=== PATIENT | female | born 1970 | race Caucasian/White ===

== ENCOUNTER → 2021-04-03 12:42 | Outpatient (CLI) | payer BC, SELFPAY ==
--- NOTE | 2021-04-03 12:47 | MR_ITS ---
PROCEDURE: MR LUMBAR SPINE WO CON CLINICAL INDICATION: SPINAL STENOSIS COMPARISON: No exams were available for comparison TECHNIQUE: Standard multiplanar multiecho sequences are performed without contrast. 3-D MIP and myelographic images are also rendered and reviewed FINDINGS: There is normal position and alignment. No acute compression fractures. Conus medullaris appears normal terminating at mid L1. Posterior elements appear intact. The study presumes 5 non rib-bearing lumbar vertebrae. Visualized kidneys and abdominal aorta are normal. IMPRESSION: L1-2 through L3-4: Within normal limits. L4-5: Mild diffuse posterior annular disc bulge without nerve root compression or spinal canal stenosis. Mild bilateral neural foraminal narrowing and mild bilateral facet spondylosis. L5-S1: Mild diffuse posterior annular disc bulge with minimal spinal canal stenosis and contact of the bilateral S1 nerve roots. Mild bilateral neural foraminal narrowing and mild bilateral facet spondylosis. Dictated by: Paresh Mcconnell MD 04/03/2021 15:07 Paresh Mcconnell MD in [place] 04/03/2021 15:07
== END ==
PROVIDERS: PCP Internal Medicine; Visit Provider Psychiatry & Neurology Clinical Neurophysiology
DX: M48.061 Spinal stenosis, lumbar region without neurogenic claudication (principal)
CPT/HCPCS: 72148; 76376

== ENCOUNTER → 2021-05-16 13:33 | Outpatient (CLI) | payer BC, SELFPAY ==
--- NOTE | 2021-05-16 13:36 | MR_ITS ---
PROCEDURE: MR CERVICAL SPINE WO CON CLINICAL INDICATION: SPINAL STENOSIS Neck pain. Pain down both arms. Tingling and numbness. 2 previous surgeries. COMPARISON: No exams were available for comparison TECHNIQUE: Standard multiplanar multiecho sequences are performed without contrast. 3-D MIP and myelographic images are also rendered and reviewed FINDINGS: Postsurgical changes are present. There are no previous exams available for comparison. Artifact present from the postsurgical change. There is normal alignment. The craniocervical junction has an unremarkable appearance. No abnormal cord signal intensity. C2-C3: Unremarkable. C3-C4: Minimal bulging disc and mild prominence of the posterior longitudinal ligament with canal stenosis of 9 mm without cord effacement C4-C5: Degenerative disc disease with bulging disc. Moderate to severe canal stenosis at 7 mm with mild impingement upon the cord and mild cord flattening. C5-C6: Postsurgical changes. Mild canal stenosis at 10 mm without impingement. There is fusion of C5-C6 C6-C7: Severe artifact from prior fusion. No herniated disc or canal stenosis or foraminal narrowing at this level. C7-T1: Prior fusion with artifact. No canal stenosis or extradural defect apparent No herniated disc or vertebral fracture apparent. IMPRESSION: 1. Postsurgical changes with prior fusion at C5-C6, C6-C7, and C7-T1. 2. C3-C4: Minimal bulging disc and mild prominence of the posterior longitudinal ligament with canal stenosis of 9 mm without cord effacement 3. C4-C5: Degenerative disc disease with bulging disc. Moderate to severe canal stenosis at 7 mm with mild impingement upon the cord and mild cord flattening. Dictated by: José Hernandez MD 05/17/2021 08:50 José Hernandez MD in [place] 05/17/2021 08:50
== END ==
PROVIDERS: PCP Internal Medicine; Visit Provider Psychiatry & Neurology Clinical Neurophysiology
DX: M48.02 Spinal stenosis, cervical region (principal)
CPT/HCPCS: 72141; 76376

== ENCOUNTER → 2021-05-20 14:11 | Outpatient (POV) | payer BC, SELFPAY ==
[2021-05-20 14:52] VITALS: BP 156/85; PULSE 98; RESP 18; O2SAT 97; BMI 45.6
--- NOTE | 2021-05-20 14:54 | HMH.PMCON ---
Assessment and Plan (1) Degenerative joint disease (DJD) of lumbar spine Status: Acute Category: Medical Code(s): M47.816 - Spondylosis without myelopathy or radiculopathy, lumbar region (2) Lumbar radiculopathy Status: Acute Category: Medical Code(s): M54.16 - Radiculopathy, lumbar region - Assessment and plan all Dx Assessment and Plan for all problems:: MRI of the lumbar spine reveals L1-L2 through L3-L4 within normal limits. L4-L5 mild diffuse posterior annular disc bulge without nerve root compression or spinal canal stenosis. L5-S1 mild diffuse posterior annular disc bulge with minimal spinal canal stenosis and contact of the bilateral S1 nerve roots. Mild bilateral neural foraminal narrowing and mild bilateral facet spondylosis per report. We did review her MRI report in detail today. I have recommended lumbar epidural injection at L5-S1 to help with discomfort. The procedure, risk, benefits were all discussed with the patient. She would like to proceed with the injection. She is welcome to contact the clinic prior to her injection date if she has any questions or concerns. Dr. Banerjee has reviewed this note and agrees with this plan of care. This note was dictated using voice recognition software and make contain errors or omissions. HPI - Data of Consult Patient: new to practice Consult date: 05/20/21 Requesting Physician: Astrid Alcantara APRN Primary Care Provider: Referral Provider, - Consult Narrative History of present illness: Ms. Nuñez is a 50 year old female who presents today as a new patient. Dr. Solis for low back pain. The patient states she has been dealing with low back pain for approximately 2 years. The pain has been gradually increasing. She is rating the pain in the low back today and 8 out of 10. She describes the pain as constant stabbing-like sensations. She does have radiating pain into her left buttock and heel down her left leg. She experiences numbness and a tingling sensation in her left leg. The pain is made worse with prolonged standing and walking. When walking she notices an increased weakness in her lower extremities. The pain is not improved with sitting, standing or laying flat she constantly has to change positions to help with the discomfort. She has tried and failed conservative therapy such as physical therapy, and oral medications. The patient has been diagnosed with fibromyalgia, she also has an extensive history of neck pain, she has had cervical fusions with Dr. Arshad in the past she is actually being referred to neurosurgery for her neck pain. She has been prescribed Soma by Dr. Solis in the past. She states that this medication did not help with her discomfort. Her Husam number is [phone] she has an active morphine equivalent of the run. CC: Astrid Alcantara APRN [facility] History I have reviewed the patient's past medical history: Yes Medical History: Denies:: Diabetes Mellitus Type 1, Diabetes Mellitus Type 2 *Have you ever received a pneumonia vaccine?: No *Have you received a flu vaccine this season?: Yes Laterality Cases: Left: Total Hip Replacement, Bilateral: Tonsillectomy - *Social History Smoking Status: Current every day smoker Tobacco Type: cigarettes # Packs/Day (cigarettes): 1 Alcohol Intake: never *Occupational Status:: other *Travel in the last 8 weeks: None Family Hx:: No significant family history Review of Systems - Review of Systems Review of Systems General: No recent weight changes, no fever, no sleep disturbances Respiratory: No cough, no shortness of air, no recurring pulmonary infections Cardiovascular/peripheral vascular: No chest pain, no palpitations, no edema, no shortness of breath Gastrointestinal: No new onset incontinence, normal bowel movements reported Genitourinary: No new onset incontinence Musculoskeletal: [Low back pain, left leg pain] Psychiatric: [Normal mood/affect] N
== END ==
PROVIDERS: Visit Provider Family Medicine
DX: M47.896 Other spondylosis, lumbar region (principal); M54.16 Radiculopathy, lumbar region
CPT/HCPCS: 99202; G0463

== ENCOUNTER 2021-05-25 11:15 | Emergency (ER) | payer BC, SELFPAY ==
[2021-05-25 11:16] VITALS: BP 136/80; PULSE 77; RESP 19; TEMP 37; O2SAT 99; BMI 45.6
--- NOTE | 2021-05-25 11:48 | XR_ITS ---
PROCEDURE INFORMATION: Exam: XR Left Foot Exam date and time: 05/25/2021 11:48 AM Age: 50 years old Clinical indication: Pain; Foot; Left; Additional info: Pain on top of foot TECHNIQUE: Imaging protocol: XR Left foot. Views: 3 or more views. COMPARISON: CR [id number] [id number] 02/05/2017 11:17 AM FINDINGS: Bones/joints: Calcaneal spurring. No acute fracture or dislocation. Soft tissues: Normal. IMPRESSION: No acute fracture or dislocation.
--- NOTE | 2021-05-25 12:26 | HMH.EDUTC ---
[facility] [place] Clinical Impression: Left foot pain Disposition: Home, Self-Care Condition on Discharge: Good Instructions: DI for Foot Pain Referrals: Arelis Harden DPM [Staff Physician] - Time of Disposition: 12:50 Medical Decision Making - Husam Inquiry Pt receiving controlled substance: No Vital Signs: 05/25/21 11:16 Temperature 98.6 F Temperature Source Oral Pulse Rate [Left Radial] 77 Respiratory Rate 19 Blood Pressure [Right Arm] 136/80 Blood Pressure Mean [Right Arm] 98 Blood Pressure Source [Right Arm] Automatic Cuff Blood Pressure Position [Right Arm] Sitting 02 Sat by Pulse Oximetry 99 Oxygen Delivery Method Room Air Orders (Tests/Meds): ORDERS Category Date Time Status XR foot LT min 3V Stat Exams 05/25/21 11:48 Taken - Radiology Data #1 Image(s): Foot/Toes Image Reviewed: Yes I reviewed the patient's radiology image Preliminary Findings: No Fracture Seen [facility] [place] - General Stated complaint: left foot pain Time Seen by Provider: 05/25/21 12:26 Mode of Arrival: Ambulatory Source of Information: Patient Limitations: No Limitations Description of Symptoms (Recalled from Triage Doc. by RN): c/o left foot pain/swollen after hearing a pop while walking last night HEENT Symptoms (Recalled from RN notes): No Resp Symptoms (Recalled from RN notes): No Skin Symptoms (Recalled from RN notes): No MS Symptoms (Recalled from RN notes): Yes Functional Status (Recalled from RN notes): wnl - History of Present Illness Provider Complaint: Patient was walking last night and felt 3 pops across the top of her left foot, followed by pain. States foot throbbed all night long and is swollen. It hurts to walk on her foot. No prior trauma to foot. No history of diabetes. She does smoke. Onset (ago): day(s) (1) Location: left, lower extremity Relieving factors: none Exacerbating factors: other (weight bearing) Treatments prior to arrival: none - Related Data Home Medications Medication Instructions Recorded Confirmed Lisinopril/Hydrochlorothiazide 1 tab PO DAILY 06/09/18 05/25/21 [Lisinopril-Hctz 10-12.5 mg Tab] ARIPiprazole [Aripiprazole] 10 mg PO DAILY 05/25/21 05/25/21 Atorvastatin Calcium [Lipitor 80mg 80 mg PO HS 05/25/21 05/25/21 Tablet*] Baclofen [Lioresal 10mg tablet] 10 mg PO TID 05/25/21 05/25/21 Budesonide/Glycopyr/Formoterol 2 puffs INHALATION DAILY 05/25/21 05/25/21 [Breztri Aerosphere Inhaler] Bumetanide 2 mg PO DAILY 05/25/21 05/25/21 Ergocalciferol (Vitamin D2) 1 tab PO WEEKLY 05/25/21 05/25/21 [Drisdol 50,000 units (1.25mg) capsule] Levothyroxine Sodium 88 mcg PO DAILY 05/25/21 05/25/21 [Levothyroxine] Pantoprazole Sodium 40 mg PO BID 05/25/21 05/25/21 Potassium Chloride [Klor-con 20 80 meq PO BID 05/25/21 05/25/21 mEq tablet] Promethazine HCl [Phenergan 25mg 25 mg PO Q6H PRN 05/25/21 05/25/21 tab] Ropinirole HCl 0.25 mg PO HS 05/25/21 05/25/21 Trazodone HCl 100 mg PO HS 05/25/21 05/25/21 Venlafaxine HCl [Effexor XR 150mg] 150 mg PO DAILY 05/25/21 05/25/21 Venlafaxine HCl [Effexor XR 75mg 75 mg PO DAILY 05/25/21 05/25/21 capsule] Zonisamide 100 mg PO TID 05/25/21 05/25/21 carvediloL [Coreg 6.25mg 6.25 mg PO BID 05/25/21 05/25/21 Tablet] hydrOXYzine pamoate [Hydroxyzine 50 mg PO TID 05/25/21 05/25/21 Pamoate] lamoTRIgine [Lamotrigine] 25 mg PO TID 05/25/21 05/25/21 metOLazone [Metolazone 5mg Tab] 5 mg PO DAILY 05/25/21 05/25/21 Allergies Allergy/AdvReac Type Severity Reaction Status Date / Time diphenhydramine Allergy Unknown Verified 06/09/18 14:10 [From BENADRYL] Tetanus Vaccines and Toxoid Allergy Unknown Verified 06/09/18 14:10 [TETANUS VACCINES & TOXOID] GENERIC: [id number] - Allergy Unknown Uncoded 10/06/17 15:31 DIPHENHYDR/MAG SHEBA/HYDROCORTIS - Worker's Comp Is this a Worker's Comp case?: No H History - Hepatitis A Screen Drug use history?: No High risk sexual
[2021-05-25 12:55] VITALS: BP 136/80; PULSE 77; RESP 19; TEMP 37; O2SAT 99
== END 2021-05-25 13:23 | disposition home or self-care (01) ==
PROVIDERS: Emergency Provider Physician Assistant; PCP Internal Medicine
DX: M79.672 Pain in left foot (principal); F17.210 Nicotine dependence, cigarettes, uncomplicated
CPT/HCPCS: 73630; 99202; G0463

== ENCOUNTER 2021-06-07 14:22 | Day surgery (SDC) | payer BC, SELFPAY ==
[2021-06-07 14:41] VITALS: BP 158/58; PULSE 85; RESP 18; TEMP 36.6; O2SAT 97; BMI 46.6
[2021-06-07 15:23] VITALS: BP 138/90; PULSE 81; RESP 18; O2SAT 96
[2021-06-07 15:24] VITALS: BP 138/90; PULSE 84; RESP 18; O2SAT 96
--- NOTE | 2021-06-07 15:25 | HMH.PMPROC ---
- Procedure Date: 06/07/21 Time: 15:26 Anesthesiologist:: Marck Banerjee MD Complications:: None Pre-procedure Diagnosis:: Degenerative disc disease of lumbar spine with lumbar radiculopathy symptoms Post-procedure Diagnosis:: Same Indications for Procedure:: This patient is a pleasant 51-year-old white female who we are treating for low back pain with lumbar radiculopathy symptoms. She has some increasing pain in her back rating down both legs. We will do a lumbar pleural steroid injection today to see if this helps with her pain symptoms. Procedure Details:: Informed consent was obtained and the risk and benefits of the procedure was explained to the patient. The patient was taken to the procedure room. The patient was placed prone on the procedure table. The patient was prepped and draped in sterile fashion. C-arm fluoroscopy was used to view the lumbar spine. Skin and subcutaneous tissues were anesthetized using lidocaine. I placed an 18-gauge epidural needle and advanced into the L4-L5 interspace using fluoroscopic guidance and [id number] to air. After confirmation of needle placement in the epidural space with dye I injected 2 mL of lidocaine 1.5% with Depo-Medrol 80 mg. Patient tolerated the procedure well with no complications. Plan and Disposition:: We will follow-up with her in 2 weeks. Will reevaluate her symptoms at that time.
[2021-06-07 15:36] VITALS: BP 142/81; PULSE 78; RESP 18; O2SAT 97
== END 2021-06-07 15:37 | disposition home or self-care (01) ==
LOC: SC.PAINP 14:22
PROVIDERS: PCP Internal Medicine; Visit Provider Anesthesiology
DX: M51.16 Intervertebral disc disorders with radiculopathy, lumbar region (principal); G43.909 Migraine, unspecified, not intractable, without status migrainosus; Z72.0 Tobacco use; Z87.440 Personal history of urinary (tract) infections; E78.5 Hyperlipidemia, unspecified; I10 Essential (primary) hypertension; K21.9 Gastro-esophageal reflux disease without esophagitis; L51.1 Stevens-Johnson syndrome; Z88.7 Allergy status to serum and vaccine; Z88.8 Allergy status to other drugs, medicaments and biological substances
CPT/HCPCS: 62323; J1040; Q9966

== ENCOUNTER → 2021-07-04 13:47 | Outpatient (POV) | payer BC, SELFPAY ==
[2021-07-04 13:52] VITALS: BP 142/85; PULSE 94; RESP 18; O2SAT 95; BMI 46.3
--- NOTE | 2021-07-04 14:39 | HMH.PAINSOAP ---
[facility] Pain Management SOAP Note Subjective:: Patient is a 51-year-old white female who presents today for follow-up after lumbar epidural steroid injection. She is being treated for degenerative disc disease lumbar spine with lumbar radiculopathy symptoms. She recently underwent a lumbar epidural steroid injection at L4-L5 area. Patient says that she got about a week of relief, however, she is now having severe coccygeal pain and severe itching at the injection site. She does rate her pain a 9 out of 10 today. She says that the pain is excruciating to the area and worsening with sitting. Patient says that the itching and pain at the injection site started initially after the injection. The coccygeal pain has progressively worsened. Review of Systems General: No recent weight changes, no fever, no sleep disturbances Respiratory: No cough, no shortness of air, no recurring pulmonary infections Cardiovascular/peripheral vascular: No chest pain, no palpitations, no edema, no shortness of breath Gastrointestinal: No new onset incontinence, normal bowel movements reported Genitourinary: No new onset incontinence Musculoskeletal: Low back pain, injection site pain Psychiatric: [Normal mood/affect] Neurological: [Denies weakness in extremities], [denies balance issues] Integumentary: Itching at injection site from epidural steroid injection Objective:: Physical exam General: Alert and oriented x3, no acute distress, pleasant and cooperative, [on room air] Lungs: Respirations even and unlabored, symmetrical chest expansion Eyes: PERRL Musculoskeletal: Palpation of coccygeal area somewhat guarded secondary to pain, strength in upper and lower extremities [5/5], normal gait noted Neurological: Speech clear, [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 Patient was offered gabapentin, but patient reports an allergy to the medication. She is tried Lyrica with no relief. Patient would like oral pain medication management. We will give her a low-dose of tramadol 50 mg 1 tablet p.o. twice daily for 2 weeks only we will see the patient back in a week to see if the rash is improving. Patient was given bupivacaine/corticosteroid to the area to see if this relieves some of the pain to the rash site. Risks and benefits of the medication have been explained in detail to the patient. The patient has been advised to consult with his/her primary care provider and pharmacist regarding drug-drug interaction of medications currently prescribed. Patient has been prescribed a controlled substance after being counseled on the medication, medication safety, and possible side effects. SHIVANI report has been obtained and reviewed prior to prescription and found to be appropriate. Opioid contract was reviewed and signed by the patient, and that they have agreed to all of the terms set forth by our compliance program. Patient has been instructed to contact the clinic with any concerns before the next appointment. Dr. Banerjee has reviewed this note and agrees with this plan of care. This note was dictated using voice recognition software and make contain errors or omissions. [facility] History I have reviewed the patient's past medical history: Yes Medical History: Reports:: Anxiety, Asthma, Depression, Gastroesophageal Reflux Disease(GERD), Hyperlipidemia, Hypertension, Migraine Denies:: Cancer, Diabetes Mellitus Type 1, Diabetes Mellitus Type 2, MRSA, Seizures *Have you ever received a pneumonia vaccine?: No *Have you received a flu vaccine this season?: No Other Medical History: Reports: Arthritis (osteo-), Fibromyalgia, Hypothyroidism, Sinus Problems, Other (degenerative bone disease of the spine ). Denies: Blood Transfusion Reaction Laterality C
== END ==
PROVIDERS: Visit Provider Clinical Nurse Specialist Family Health
DX: B02.9 Zoster without complications (principal); M51.36 Other intervertebral disc degeneration, lumbar region
CPT/HCPCS: 99212; G0463

== ENCOUNTER → 2021-07-11 10:29 | Outpatient (POV) | payer BC, SELFPAY ==
[2021-07-11 10:36] VITALS: BP 153/78; PULSE 69; RESP 16; O2SAT 97; BMI 46.6
--- NOTE | 2021-07-11 11:58 | HMH.PAINSOAP ---
[facility] Pain Management SOAP Note Subjective:: Patient is a 51-year-old white female who presents today for follow-up. She has been treated for recent shingles outbreak and degenerative disc disease lumbar spine with lumbar radiculopathy symptoms. At last visit, the patient was noted to have a vesicular rash noted to the injection site of an epidural steroid injection. She was complaining of itching to the area along with pain. Dr. Banerjee was notified. He did feel that the patient had shingles after reviewing the rash. She was started on valacyclovir along with tramadol. She has tried Lyrica and gabapentin in the past with no relief. Patient says that she has been getting relief with tramadol. She does rate her pain at a 7 out of 10 today. Review of Systems General: No recent weight changes, no fever, no sleep disturbances Respiratory: No cough, no shortness of air, no recurring pulmonary infections Cardiovascular/peripheral vascular: No chest pain, no palpitations, no edema, no shortness of breath Gastrointestinal: No new onset incontinence, normal bowel movements reported Genitourinary: No new onset incontinence Musculoskeletal: Low back pain with itching Psychiatric: [Normal mood/affect] Neurological: [Denies weakness in extremities], [denies balance issues] Objective:: Physical exam General: Alert and oriented x3, no acute distress, pleasant and cooperative, [on room air] Lungs: Respirations even and unlabored, symmetrical chest expansion Eyes: PERRL Musculoskeletal: Flexion and extension of lumbar [spine] somewhat guarded secondary to pain, strength in upper and lower extremities [5/5], [antalgic gait noted] Neurological: Speech clear, [forestry engineer 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 We will continue her tramadol 50 mg 1 tablet p.o. twice daily. We will see the patient back in 3 months for reevaluation of symptoms. Risks and benefits of the medication have been explained in detail to the patient. The patient has been advised to consult with his/her primary care provider and pharmacist regarding drug-drug interaction of medications currently prescribed. Patient has been prescribed a controlled substance after being counseled on the medication, medication safety, and possible side effects. SHIVANI report has been obtained and reviewed prior to prescription and found to be appropriate. Opioid contract was reviewed and signed by the patient, and that they have agreed to all of the terms set forth by our compliance program. Patient has been instructed to contact the clinic with any concerns before the next appointment. Dr. Banerjee has reviewed this note and agrees with this plan of care. This note was dictated using voice recognition software and make contain errors or omissions. [facility] History I have reviewed the patient's past medical history: Yes Medical History: Reports:: Anxiety, Asthma, Depression, Gastroesophageal Reflux Disease(GERD), Hyperlipidemia, Hypertension, Migraine Denies:: Cancer, Diabetes Mellitus Type 1, Diabetes Mellitus Type 2, MRSA, Seizures *Have you ever received a pneumonia vaccine?: No *Have you received a flu vaccine this season?: No Other Medical History: Reports: Arthritis (osteo-), Fibromyalgia, Hypothyroidism, Sinus Problems, Other (degenerative bone disease of the spine ). Denies: Blood Transfusion Reaction Laterality Cases: Right: Arthroscopy Shoulder, Bilateral: Carpal Tunnel Release, Tonsillectomy, Total Hip Replacement Other Surgeries: Yes: Cardiac Catheterization, Hysterectomy-Partial, Other (neck fusions x2) Amputation: No Fractures: No - *Social History Smoking Status: Current every day smoker Tobacco Type: cigarettes # Packs/Day (cigarettes): 1 Alcohol Intake: never *Occupational Status:: unemployed Housing: house *Travel in the last 8 weeks:
== END ==
PROVIDERS: PCP Internal Medicine; Visit Provider Clinical Nurse Specialist Family Health
DX: M51.16 Intervertebral disc disorders with radiculopathy, lumbar region (principal); B02.9 Zoster without complications
CPT/HCPCS: 99212; G0463

== ENCOUNTER 2021-08-10 13:56 | Emergency (ER) | payer BC, SELFPAY ==
[2021-08-10 14:50] VITALS: BP 153/59; PULSE 75; RESP 22; TEMP 37; O2SAT 96; BMI 46.6
--- NOTE | 2021-08-10 15:00 | HMH.EDUTC ---
[facility] Disposition Clinical Impression: Oral thrush Disposition: Home, Self-Care Condition on Discharge: Good Instructions: Nystatin, Thrush-Adult Additional Instructions: Drink plenty of fluids. Take tylenol or ibuprofen for pain. Take the medications as directed. Follow up with your regular doctor. GO TO THE ER FOR ANY WORSENING SYMPTOMS I sent in a prescription for some probiotic tablets. If your insurance will not pay for this, then ask the pharmacist to recommend one that is over the counter and get it. Being on antibiotics for a long time kills out the good bacteria in your GI tract. Eating yogurt a couple times per day would also be really good to help prevent this. Prescriptions: Magic Mouthwash [Magic Mouthwash;240mL [place]] 15 ml PO QIDP PRN #360 ml PRN Reason: Mouth Irritation Transmission Status: Received by [id number] Nystatin 5 ml PO QID 7 Days #240 ml Transmission Status: Received by [id number] Lactobacillus 3/Fos/Pantethine [Probiotic & Acidophilus Cap] 1 each PO BID 30 Days #60 cap Transmission Status: Received by [id number] Referrals: Ronaldo Kong [Primary Care Provider] - Time of Disposition: 16:10 Medical Decision Making - Medical Records Medical records reviewed: No: I reviewed the patient's medical records. - Husam Inquiry Pt receiving controlled substance: No Vital Signs: 08/10/21 14:50 08/10/21 16:25 Temperature 98.6 F 98.1 F Temperature Source Oral Pulse Rate 70 Pulse Rate [Radial] 75 Respiratory Rate 22 19 Blood Pressure 150/60 H Blood Pressure [Right Arm] 153/59 H Blood Pressure Mean [Right Arm] 90 02 Sat by Pulse Oximetry 96 [facility] HPI - General Stated complaint: poss thrush Time Seen by Provider: 08/10/21 15:00 Mode of Arrival: Ambulatory Source of Information: Patient Limitations: No Limitations Description of Symptoms (Recalled from Triage Doc. by RN): POSSIBLE THRUSH, STATES SHE HAS BEEN ON ABX FOR 4 WEEKS HEENT Symptoms (Recalled from RN notes): Yes Resp Symptoms (Recalled from RN notes): No Skin Symptoms (Recalled from RN notes): No MS Symptoms (Recalled from RN notes): No Functional Status (Recalled from RN notes): NA - History of Present Illness Provider Complaint: She states that she thinks that she has thrush in her mouth. She has been on antibiotics for several weeks for an infected cyst in her right axilla. She states that that is getting better, but her mouth is very irritated and has a white coating in places. - Related Data Home Medications Medication Instructions Recorded Confirmed Lisinopril/Hydrochlorothiazide 1 tab PO DAILY 06/09/18 06/07/21 [Lisinopril-Hctz 10-12.5 mg Tab] ARIPiprazole [Aripiprazole] 10 mg PO DAILY 05/25/21 06/07/21 Atorvastatin Calcium [Lipitor 80mg 80 mg PO HS 05/25/21 06/07/21 Tablet*] Baclofen [Lioresal 10mg tablet] 10 mg PO TID 05/25/21 06/07/21 Bumetanide 2 mg PO DAILY 05/25/21 06/07/21 Ergocalciferol (Vitamin D2) 1 tab PO WEEKLY 05/25/21 06/07/21 [Drisdol 50,000 units (1.25mg) capsule] Levothyroxine Sodium 88 mcg PO DAILY 05/25/21 06/07/21 [Levothyroxine] Pantoprazole Sodium 40 mg PO BID 05/25/21 06/07/21 Potassium Chloride [Klor-con 20 80 meq PO BID 05/25/21 06/07/21 mEq tablet] Promethazine HCl [Phenergan 25mg 25 mg PO Q6H PRN 05/25/21 06/07/21 tab] Ropinirole HCl 0.25 mg PO HS 05/25/21 06/07/21 Trazodone HCl 100 mg PO HS 05/25/21 06/07/21 Venlafaxine HCl [Effexor XR 150mg] 150 mg PO DAILY 05/25/21 06/07/21 Venlafaxine HCl [Effexor XR 75mg 75 mg PO DAILY 05/25/21 06/07/21 capsule] Zonisamide 100 mg PO TID 05/25/21 06/07/21 carvediloL [Coreg 6.25mg 12.5 mg PO BID 05/25/21 06/07/21 Tablet] hydrOXYzine pamoate [Hydroxyzine 50 mg PO TID 05/25/21 06/07/21 Pamoate] lamoTRIgine [Lamotrigine] 25 mg PO TID 05/25/21 06/07/21 metOLazone [Metolazone 5mg Tab] 5 mg PO DAILY 05/25/21 06/07/21 albuterol sulfate 90 mcg/a
[2021-08-10 16:25] VITALS: BP 150/60; PULSE 70; RESP 19; TEMP 36.7; O2SAT 97
== END 2021-08-10 16:27 | disposition home or self-care (01) ==
PROVIDERS: Emergency Provider Nurse Practitioner Family; PCP Internal Medicine
DX: B37.0 Candidal stomatitis (principal); F41.8 Other specified anxiety disorders; E78.5 Hyperlipidemia, unspecified; I10 Essential (primary) hypertension; K21.9 Gastro-esophageal reflux disease without esophagitis; M79.7 Fibromyalgia; F17.210 Nicotine dependence, cigarettes, uncomplicated; Z88.7 Allergy status to serum and vaccine; Z79.899 Other long term (current) drug therapy
CPT/HCPCS: 99202; G0463

== ENCOUNTER 2021-08-16 16:51 | Emergency (ER) | payer BC, SELFPAY ==
[2021-08-16 16:59] VITALS: BP 140/69; PULSE 77; RESP 16; O2SAT 98
[2021-08-16 17:00] VITALS: BP 140/69; PULSE 87; RESP 18; TEMP 36.5; O2SAT 97; BMI 46.2
--- NOTE | 2021-08-16 17:18 | PC.NURSE ---
pt reports unable to urinate at this time
[2021-08-16 17:20] LABS: Basophils # 0.1 K/mm3 (0-0.2); Basophils % 0.8 % (0.1-2.0); Eosinophils # 0.2 K/mm3 (0.0-0.4); Eosinophils % 1.3 % (0.1-12.0); Hematocrit 40.6 % (37.0-47.0); Lymphocytes % 22.5 % (10-50); Mean Corpuscular HGB Conc 32.1 g/dL (31.8-35.4); Mean Corpuscular Hemoglobin 32.1 pg (27.0-31.2); Mean Platelet Volume 8.9 fl (7.4-10.4); Monocytes # 0.7 K/mm3 (0.1-1.0); Neutrophils # 9.5 K/mm3 (1.8-7.8); Neutrophils % 70.4 % (37.0-80.0); Platelet Count 398 K/mm3 (142-424); Red Blood Count 4.06 M/mm3 (4.20-5.40); Red Cell Distribution Width 14.6 % (11.5-17.5); White Blood Count 13.4 K/mm3 (4.8-10.8)
[2021-08-16 17:21] LABS: Chloride 105 mmol/L (98-107); Potassium 4.2 mmoL/L (3.5-5.1); Sodium 138 mmol/L (136-145)
--- NOTE | 2021-08-16 17:23 | CT_ITS ---
PROCEDURE INFORMATION: Exam: CT Abdomen And Pelvis With Contrast Exam date and time: 08/16/21 05:23 PM Age: 51 years old Clinical indication: Abdominal pain; Localized; Left lower quadrant (llq) TECHNIQUE: Imaging protocol: Computed tomography of the abdomen and pelvis with contrast. Radiation optimization: All CT scans at this facility use at least one of these dose optimization techniques: automated exposure control; mA and/or kV adjustment per patient size (includes targeted exams where dose is matched to clinical indication); or iterative reconstruction. Contrast material: ISOVUE; Contrast volume: 75 ml; Contrast route: IV; COMPARISON: ABDPELW/O CT ABD PELVIS W/O CONTRAST 07/21/16 10:44 PM FINDINGS: Tubes, catheters and devices: None noted. Lungs: Lung bases appear clear. Heart: No significant coronary calcifications. No cardiomegaly. No significant pericardial effusion. Liver: Mild fatty liver. No mass. Gallbladder and bile ducts: Normal. No calcified stones. No ductal dilation. Pancreas: Normal. No ductal dilation. Spleen: Normal. No splenomegaly. Adrenal glands: Normal. No mass. Kidneys and ureters: Nonobstructive right lower pole caliceal calcification. No hydronephrosis. Stomach and bowel: Unremarkable. No obstruction. No mucosal thickening. Appendix: Appendectomy. Intraperitoneal space: Unremarkable. No free air. No significant fluid collection. Retroperitoneal space: No significant retroperitoneal inflammatory changes are noted. Vasculature: Unremarkable. No abdominal aortic aneurysm. Lymph nodes: Unremarkable. No enlarged lymph nodes. Urinary bladder: Unremarkable as visualized. Reproductive: Hysterectomy. 2.9 cm right ovarian cyst. 6.5 x 4.3 cm left ovarian cyst. Bones/joints: Bilateral total hip arthroplasties. No acute fracture. Soft tissues: Unremarkable. IMPRESSION: 1. 6.5 x 4.3 cm left ovarian cyst. 2. Appendectomy. 3. Hysterectomy. 4. Mild fatty liver.
[2021-08-16 17:24] LABS: Alanine Aminotransferase 25 U/L (12-78); Albumin/Globulin Ratio 1.3 (1.1-1.8); Alkaline Phosphatase 153 U/L (38-126); Anion Gap 13.2 mEq/L (5-15); Aspartate Amino Transferase 21 U/L (14-36); Bilirubin,Total 0.2 mg/dl (0.2-1.3); Blood Urea Nitrogen 9 mg/dl (7-17); Calcium 9.1 mg/dl (8.4-10.2); Carbon Dioxide 24 mmol/L (22.0-30.0); Creatinine Clearance Estimated 81 mL/min (50-200); Estimated Glomerular Filt Rate 76 ml/min (>60); GFR (African American) 92 ML/MIN (>60); Globulin 3.2 g/dL (1.3-3.2); Glucose 129 mg/dl (74-100); Lipase 76 U/L (23-300); Total Protein,Serum 7.2 g/dl (6.3-8.2)
--- NOTE | 2021-08-16 18:39 | HMH.EDGENADL ---
ED Disposition Clinical Impression: Ovarian cyst Qualifiers: Laterality: left Qualified Code(s): N83.202 - Unspecified ovarian cyst, left side Disposition: Home, Self-Care Condition on Discharge: Good Instructions: DI for Acute Abdominal Pain Additional Instructions: Ibuprofen/Tylenol as needed for aches and pains. Warm compress. Follow-up with PCP on Thursday. Return emerge department fever, worsening pain. Referrals: Ronaldo Kong [Primary Care Provider] - 3 days Time of Disposition: 18:43 - Critical Care Critical Care Time: No Attestation: On 08/16/21, the high probability of a clinically significant, sudden or life threatening deterioration of the following system(s) required my full and direct attention, intervention and personal management. The time I documented below is in addition to time spent performing reported procedures but includes the following listed in this critical care notation. Medical Decision Making - Medical Records Medical records reviewed: Yes: I reviewed the patient's medical records. - Husam Inquiry Pt receiving controlled substance: No Vital Signs: 08/16/21 16:59 08/16/21 17:00 Temperature 97.7 F Temperature Source Oral Pulse Rate 77 Pulse Rate [Right Radial] 87 Respiratory Rate 16 18 Blood Pressure 140/69 Blood Pressure [Right Arm] 140/69 Blood Pressure Mean 88 Blood Pressure Mean [Right Arm] 92 Blood Pressure Source [Right Arm] Automatic Cuff Blood Pressure Position [Right Arm] Left Lateral 02 Sat by Pulse Oximetry 98 97 Oxygen Delivery Method Room Air - Lab Data Lab results reviewed: Yes: I reviewed the patient's lab results. Lab Results 08/16/21 11:10: WBC 13.4 H, RBC 4.06 L, Hgb 13.0, Hct 40.6, MCV 100.0 H, MCH 32.1 H, MCHC 32.1, RDW 14.6, Plt Count 398, MPV 8.9, Neut % (Auto) 70.4, Lymph % (Auto) 22.5, [place] % (Auto) 5.0, Eos % (Auto) 1.3, Baso % (Auto) 0.8, Neut # (Auto) 9.5 H, Lymph # (Auto) 3.0, [place] # (Auto) 0.7, Eos # (Auto) 0.2, Baso # (Auto) 0.1 08/16/21 11:10: Sodium 138, Potassium 4.2, Chloride 105, Carbon Dioxide 24, Anion Gap 13.2, BUN 9, Creatinine 0.80, Estimated Creat Clear 81, Estimated GFR 76, Est GFR ( Amer) 92, Glucose 129 H, Calcium 9.1, Total Bilirubin 0.2, AST 21, ALT 25, Alkaline Phosphatase 153 H, Total Protein 7.2, Albumin 4.0, Globulin 3.2, Albumin/Globulin Ratio 1.3, Lipase 76 Result diagrams: 08/16/21 11:10 08/16/21 11:10 Orders (Tests/Meds): ED MEDICATIONS Generic Name Dose Route Start Last Admin Trade Name Freq PRN Reason Stop Dose Admin Lactated Ringer's 1,000 mls @ 999 mls/hr 08/16/21 17:30 08/16/21 17:34 Lactated Ringer's 1000 Ml Bag IV 08/16/21 18:30 999 mls/hr .Q1H1M SILVER Administration Discontinued Medications Generic Name Dose Route Start Last Admin Trade Name Freq PRN Reason Stop Dose Admin Iopamidol 75 ml 08/16/21 17:51 08/16/21 17:52 Iopamidol-370 (76%);100ml Bottle IV 08/16/21 17:52 75 ml ONCE ONE Administration Ketorolac Tromethamine 15 mg 08/16/21 17:23 08/16/21 17:34 Ketorolac 30mg/Ml Vial IV 08/16/21 17:24 15 mg ONCE ONE Administration Sodium Chloride 10 ml 08/16/21 17:51 08/16/21 17:52 Sodium Chloride 0.9% 10ml Syr (Rad Only) IV 08/16/21 17:52 10 ml ONCE ONE Administration ORDERS Category Date Time Status Urinalysis and Microscopic Stat Lab 08/16/21 17:03 Ordered - CT Data CT Scan: Abdomen, Pelvis Time Received: 18:[address] Reviewed: Yes: I have viewed the radiologist's interpretation Preliminary Findings: Abnormal Findings Narrative: Left ovarian cyst Medical Decision Narrative: 51yo F evaluated for left lower quad abdominal pain. Patient is acutely uncomfortable but in no real distress. Physical exam is unremarkable. Abdominal laboratory studies are collected and benign. Patient sent for CT of the abdomen pelvis with IV contrast after receiving Toradol. This seems to have improved her pain. CT of the abdomen pelvi
[2021-08-16 18:52] VITALS: BP 130/61; PULSE 87; RESP 18; TEMP 36.5; O2SAT 97
== END 2021-08-16 18:52 | disposition home or self-care (01) ==
PROVIDERS: Emergency Provider Family Medicine; PCP Internal Medicine
DX: N83.202 Unspecified ovarian cyst, left side (principal); I10 Essential (primary) hypertension; E78.5 Hyperlipidemia, unspecified; J45.909 Unspecified asthma, uncomplicated; E03.9 Hypothyroidism, unspecified; F41.8 Other specified anxiety disorders; M79.7 Fibromyalgia; F17.210 Nicotine dependence, cigarettes, uncomplicated; Z90.710 Acquired absence of both cervix and uterus; Z88.7 Allergy status to serum and vaccine
CPT/HCPCS: 74177; 80053; 83690; 85025; 96365; 96375; 99283; Q9967

== ENCOUNTER → 2021-09-18 13:10 | Outpatient (CLI) | payer BC, SELFPAY | PROVIDERS: Visit Provider Nurse Practitioner Family | DX: Z01.812 Encounter for preprocedural laboratory examination (principal); Z20.822 Contact with and (suspected) exposure to COVID-19 | CPT/HCPCS: C9803; U0003; U0005 ==

== ENCOUNTER → 2022-01-06 10:32 | Outpatient (POV) | payer BC, SELFPAY ==
[2022-01-06 11:38] VITALS: BP 135/90; PULSE 80; RESP 20; TEMP 36.7; O2SAT 99; BMI 45.2
--- NOTE | 2022-01-06 15:50 | HMH.PAINSOAP ---
[facility] Pain Management SOAP Note Subjective:: Patient is a pleasant 51-year-old female who presents today for follow-up. Patient is currently being treated for degenerative disc disease of the cervical and lumbar spine with cervical and lumbar radiculopathy symptoms. Patient states that she recently saw a neurosurgeon who did a cervical fusion of her C4 and C5. Today, patient states that she has been having worsening low back pain. We have tried a lumbar epidural steroid injection in the past. Patient states that she had a shingles outbreak after this injection. We did treat the patient with valacyclovir to manage her shingles. This has since resolved. But patient is very hesitant to try any more injective therapy after this. Patient denies any recent falls or traumas. She denies any loss of bowel bladder functions. She rates her pain today as 4 out of 10. [facility] #[id number] with an active morphine equivalent of 30. For pain management, she was recently prescribed [place] and oxycodone for postop pain. General: No recent weight changes, no fever, no sleep disturbances Respiratory: No cough, no shortness of air, no recurring pulmonary infections Cardiovascular/peripheral vascular: No chest pain, no palpitations, no edema, no shortness of breath Gastrointestinal: No new onset incontinence, normal bowel movements reported Genitourinary: No new onset incontinence Musculoskeletal: Low back pain Psychiatric: [Normal mood/affect] Neurological: [Denies weakness in extremities], [denies balance issues] Objective:: General: Alert and oriented x3, no acute distress, pleasant and cooperative, [on room air] Lungs: Respirations even and unlabored, symmetrical chest expansion Eyes: PERRL Musculoskeletal: Flexion and extension of lumbar [spine] somewhat guarded secondary to pain, [antalgic gait noted] Neurological: Speech clear, no gross sensory deficit Assessment:: Degenerative disc disease of the lumbar spine with lumbar radiculopathy symptoms, history of shingles, post-op cervical spinal fusion Plan:: Patient presents today with worsening low back pain. She has been taking her postop pain medications but she is out of these medications right now. Since she had a shingles outbreak after her last epidural steroid injection, patient is hesitant to try any injective therapy at this time. I will refer the patient for physical therapy for evaluation and treatment of chronic low back pain. I will start the patient on diclofenac 75 mg twice a day. I will also start the patient on a compounding cream. Follow-up in 1 month. Patient has been instructed to contact the clinic with any concerns before the next appointment. Dr. Banerjee has reviewed this note and agrees with this plan of care. This note was dictated using voice recognition software and make contain errors or omissions. [facility] History Medical History: Reports:: Anxiety, Asthma, Depression, Gastroesophageal Reflux Disease(GERD), Hyperlipidemia, Hypertension, Migraine Denies:: Cancer, Diabetes Mellitus Type 1, Diabetes Mellitus Type 2, MRSA, Seizures *Have you ever received a pneumonia vaccine?: No *Have you received a flu vaccine this season?: No Other Medical History: Reports: Arthritis (osteo-), Fibromyalgia, Hypothyroidism, Sinus Problems, Other (degenerative bone disease of the spine ). Denies: Blood Transfusion Reaction Laterality Cases: Right: Arthroscopy Shoulder, Bilateral: Carpal Tunnel Release, Tonsillectomy, Total Hip Replacement Other Surgeries: Yes: Cardiac Catheterization, Hysterectomy-Partial, Other (neck fusions x2) Amputation: No Fractures: No - *Social History Smoking Status: Current every day smoker Tobacco Type: cigarettes # Packs/Day (cigarettes): 1 Alcohol Intake: never *Occupational Status:: employed Housing: house *Travel in the last 8 weeks: None - Psychiatric History Pschychiatric History:: Reports:: Anxiety, Depression Family Hx:: Diabetes, Hype
== END ==
PROVIDERS: Visit Provider Student in an Organized Health Care Education/Training Program
DX: M51.16 Intervertebral disc disorders with radiculopathy, lumbar region (principal); M43.22 Fusion of spine, cervical region; Z86.19 Personal history of other infectious and parasitic diseases
CPT/HCPCS: 99212; G0463

== ENCOUNTER 2022-01-14 14:30 | Outpatient (RCR) | payer BC, SELFPAY ==
--- NOTE | 2022-01-09 09:02 | HMH.PTOPEV ---
PT Outpatient Evaluation Rehab PT Outpatient Evaluation Start: 01/09/22 08:06 Freq: Status: Active Protocol: Document 01/09/22 08:46 [place] (Rec: 01/09/22 09:02 PHORDEYSI [id number]) Electronically Signed By Matty Gomez, PT 01/09/22 08:46 Outpatient Therapy Subjective History Subjective History Pt is 51 yowf who presents with c/o low back pain x ~ 6 yrs, gradually worsening. She c/o pain worse with prolonged standing or sitting and reports she changes position frequently to help reduce the pain. She had MRI performed ~ 1 yr ago which shows mild disc bulge at L4/5 and L5/S1. She had steroid injection recently which she reports did not help at all. She has significant PMH of anxiety, depression, asthma, HL, HTN, migraines, seizure, fibromyalgia, L TKA, B DEVI, partial hysterectomy, cervical fusion x 2, cardiac cath, CTR B. Chief Complaint Pain,Stiff Symptom Type Ache,Burning Symptoms Relieved By Rest/Positioning Symptoms Aggravated By Supine,Sitting,Standing, Bending/Stooping,Physical Activity,Walking,Lifting Prior Functional Limitations Lifting,Housework,Standing, Sitting,Recreation Activity, Walking,Bending/Stooping Current Functional Limitations Lifting,Housework,Standing, Sitting,Recreation Activity, Walking,Bending/Stooping Symptom Description Constant but Variable Level of pain today (0-10) 8 Pain scale - at its worst (0-10) 10 Lumbopelvic Eval Palapation tenderness bilateral lumbar spinal tenderness Yes paraspinal tenderness Yes buttock tenderness Yes Lumbar/Sacral Palpation Findings Tenderness Lumbar/Sacral Palpation Overall Comment worse on L side Accessory Movement L-spine Vertebrae Accessory Movements Central P/A [place] that Elicit Symptoms L2 bilateral L3 bilateral L4 bilateral L5 bilateral S1 bilateral Range of Motion Lumbar Spine Active Flexion Range of 0-65 Motion (degrees)
== END 2022-01-14 14:35 | disposition home or self-care (01) ==
LOC: PT 14:30
PROVIDERS: PCP Internal Medicine; Visit Provider Student in an Organized Health Care Education/Training Program
DX: M54.50 Low back pain, unspecified (principal)
CPT/HCPCS: 97010; 97014; 97110; 97140; 97163; G0283

== ENCOUNTER → 2022-02-06 11:24 | Outpatient (POV) | payer BC, SELFPAY ==
[2022-02-06 11:43] VITALS: BP 152/68; PULSE 91; RESP 18; TEMP 36.7; O2SAT 97; BMI 43.8
--- NOTE | 2022-02-06 13:36 | HMH.PAINSOAP ---
[facility] Pain Management SOAP Note Subjective:: Patient is a pleasant 51-year-old female who is here today for follow-up. Patient is now being treated for degenerative disc disease of the cervical and lumbar spine with cervical and lumbar radiculopathy symptoms. Patient has a history of cervical fusion of C4-C5. We have been managing this patient with injective therapy. However, after her lumbar epidural steroid injection, patient states that she had a shingles outbreak. This has resolved since then. Because of this experience, patient is hesitant to try any more injective therapy. She states that she is following up with a neurologist in regards to her low back pain since she has been having radicular pains to bilateral legs. This is also causing her to have some numbness and paresthesia. She was also referred to a neurosurgeon since she may need a back surgery. When I last saw this patient, she was complaining of worsening low back pain. I started her on diclofenac 75 mg twice a day. This medication has been discontinued by her dramatic reader. She is taking baclofen for pain. Denies any recent falls or traumas. Rates pain today as 8 out of 10. [facility] #[id number] with an active morphine equivalent of 0. Review of Systems: General: No recent weight changes, no fever, no sleep disturbances Respiratory: No cough, no shortness of air, no recurring pulmonary infections Cardiovascular/peripheral vascular: No chest pain, no palpitations, no edema, no shortness of breath Gastrointestinal: No new onset incontinence, normal bowel movements reported Genitourinary: No new onset incontinence Musculoskeletal: Neck pain, low back pain Psychiatric: [Normal mood/affect] Neurological: [Denies weakness in extremities], [denies balance issues] Objective:: Physical Exam: General: Alert and oriented x3, no acute distress, pleasant and cooperative, [on room air] Lungs: Respirations even and unlabored, symmetrical chest expansion Eyes: PERRL Musculoskeletal: Flexion and extension of cervical and lumbar [spine] somewhat guarded secondary to pain, [antalgic gait noted] Neurological: Speech clear, no gross sensory deficit Assessment:: Degenerative disc disease of the cervical and lumbar spine with cervical lumbar radiculopathy symptoms, history of shingles, status post cervical spinal fusion Plan:: Patient is going to follow-up with a neurosurgeon in regards to her low back pain. She will proceed with back surgery if needed. We will reorder her compounding cream because she is allergic to gabapentin. We will follow-up with this patient in 6 months for evaluation of chronic pain syndrome. Patient has been instructed to contact the clinic with any concerns before the next appointment. Dr. Banerjee has reviewed this note and agrees with this plan of care. This note was dictated using voice recognition software and make contain errors or omissions. [facility] History Medical History: Reports:: Anxiety, Asthma, Depression, Gastroesophageal Reflux Disease(GERD), Hyperlipidemia, Hypertension, Migraine Denies:: Cancer, Diabetes Mellitus Type 1, Diabetes Mellitus Type 2, MRSA, Seizures *Have you ever received a pneumonia vaccine?: No *Have you received a flu vaccine this season?: No Other Medical History: Reports: Arthritis (osteo-), Fibromyalgia, Hypothyroidism, Sinus Problems, Other (degenerative bone disease of the spine ). Denies: Blood Transfusion Reaction Laterality Cases: Right: Arthroscopy Shoulder, Bilateral: Carpal Tunnel Release, Tonsillectomy, Total Hip Replacement Other Surgeries: Yes: Cardiac Catheterization, Hysterectomy-Partial, Other (neck fusions x2) Amputation: No Fractures: No - *Social History Smoking Status: Current every day smoker Tobacco Type: cigarettes # Packs/Day (cigarettes): 1 Alcohol Intake: never *Occupational Status:: unemployed Housing: house *Travel in the last 8 weeks: None - Psychiatric History Pschychiatric History:: Report
== END ==
PROVIDERS: Visit Provider Student in an Organized Health Care Education/Training Program
DX: M50.10 Cervical disc disorder with radiculopathy, unspecified cervical region (principal); Z98.1 Arthrodesis status; Z86.19 Personal history of other infectious and parasitic diseases
CPT/HCPCS: 99212; G0463

== ENCOUNTER → 2022-02-13 14:21 | Outpatient (CLI) | payer BC, SELFPAY ==
--- NOTE | 2022-02-13 14:24 | MR_ITS ---
FINAL REPORT CLINICAL HISTORY: SPINAL STENOSIS, LUMBAR left sided lbp numbness left leg and foot x 4 months no injury /trauma COMPARISON: April 03, 2021 FINDINGS: Multiplanar MR imaging of the lumbar spine was performed without contrast. On the sagittal T2-weighted images, there is mild decreased signal in the L3-L4 disc. The vertebrae are of normal height. The vertebral alignment is normal. L1-2: There is no significant canal stenosis or neural foraminal narrowing. L2-3: There is no significant canal stenosis or neural foraminal narrowing. L3-4: There is no significant canal stenosis or neural foraminal narrowing. L4-5: There is a mild disc bulge. There is no significant canal stenosis or neural foraminal narrowing. L5-S1: There is no significant canal stenosis or neural foraminal narrowing. IMPRESSION: Mild disc bulge at L4-L5 without significant central canal stenosis or neural foraminal narrowing. Reviewed, Interpreted and Dictated by Paulie Branham MD Transcribed by Pernell Dueñas Authenticated by Paulie Branham MD on 02/13/2022 04:50:[address] [facility]
== END ==
PROVIDERS: PCP Internal Medicine; Visit Provider Psychiatry & Neurology Clinical Neurophysiology
DX: M48.061 Spinal stenosis, lumbar region without neurogenic claudication (principal)
CPT/HCPCS: 72148; 76376

== ENCOUNTER → 2022-04-28 13:04 | Outpatient (POV) | payer BC, SELFPAY ==
[2022-04-28 14:06] VITALS: BP 119/70; PULSE 93; RESP 20; TEMP 36.6; O2SAT 97; BMI 44.3
--- NOTE | 2022-04-28 14:12 | HMH.PAINSOAP ---
[facility] Pain Management SOAP Note Subjective:: Patient is a pleasant 51-year-old female who is here today for follow-up. Patient is now being treated for degenerative disc disease of cervical and lumbar spine with cervical and lumbar radiculopathy symptoms. Patient states her pain today is 6 out of 10. She states it is in her low back pain. She describes the pain as a constant, burning, throbbing, ache that is worse with activity. She states the pain does radiate down to her feet. Patient has been managed with injective therapy in the past. she had a previous lumbar epidural steroid injection that shortly after she had a shingles outbreak. It has resolved however patient is hesitant to try any more epidural injections. She does have a history of a cervical fusion at C4-C5. She has been referred to a neurosurgeon. 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 She does use a compounding cream with minimal relief. She is asking for refill at today's visit. She also takes baclofen for pain by Dr. Solis. She denies any recent falls or trauma. Husam is [id number]. It has been reviewed and is appropriate. Review of Systems: General: No recent weight changes, no fever, no sleep disturbances Respiratory: No cough, no shortness of air, no recurring pulmonary infections Cardiovascular/peripheral vascular: No chest pain, no palpitations, no edema, no shortness of breath Gastrointestinal: No new onset incontinence, normal bowel movements reported Genitourinary: No new onset incontinence Musculoskeletal: Low back pain Psychiatric: [Normal mood/affect] Neurological: [Denies weakness in extremities], [denies balance issues] Objective:: Physical Exam: General: Alert and oriented x3, no acute distress, pleasant and cooperative Lungs: Respirations even and unlabored, symmetrical chest expansion Eyes: PERRL Musculoskeletal: Flexion and extension of lumbar [spine] somewhat guarded secondary to pain, [antalgic gait noted] Neurological: Speech clear, no gross sensory deficit Assessment:: Degenerative disc disease of cervical and lumbar spine with cervical and lumbar radiculopathy symptoms. Plan:: Patient had point tenderness in today's visit. She describes the pain radiating into her feet. I have discussed with her about another lumbar epidural steroid injection however she declines this at this time. She was positive for axial loading and she states she has a history of arthritis. I have discussed with the patient regarding about trying an medial branch block. Risk and benefits have been discussed. She would like to proceed with this injection. Patient is not currently taking any blood thinners. We will schedule her for an medial branch block L4-L5, L5-S1. Patient has been instructed to contact the clinic with any concerns before the next appointment. Dr. Banerjee has reviewed this note and agrees with this plan of care. This note was dictated using voice recognition software and make contain errors or omissions. [facility] History I have reviewed the patient's past medical history: Yes Medical History: Reports:: Anxiety, Asthma, Depression, Gastroesophageal Reflux Disease(GERD), Hyperlipidemia, Hypertension, Migraine Denies:: Cancer, Diabetes Mellitus Type 1, Diabetes Mellitus Type 2, MRSA, Seizures *Have you ever received a pneumonia vaccine?: No *Have you received a flu vaccine this season?: No Other Medical History: Reports: Arthritis (osteo-), Fibromyalgia, Hypothyroidism, Sinus Problems, Other (degenerative bone disease of the spine ). Denies: Blood Transfusion Reaction Laterality Cases: Right: Arthroscopy Shoulder, Bilateral: Carpal Tunnel Release, Tonsillectomy, Total Hip Replacement Other Surgeries: Yes: Cardiac Catheterization, Hysterectomy-Partial, Other (neck fusions x2) Amputation: No Fractures: No - *Social History Smoking Status: Current every day smoker Tobacco Type: cigarettes
== END ==
PROVIDERS: Visit Provider Student in an Organized Health Care Education/Training Program
DX: M51.16 Intervertebral disc disorders with radiculopathy, lumbar region (principal); M50.121 Cervical disc disorder at C4-C5 level with radiculopathy; M19.90 Unspecified osteoarthritis, unspecified site; Z72.0 Tobacco use
CPT/HCPCS: 99212; G0463

== ENCOUNTER 2022-05-09 11:38 | Day surgery (SDC) | payer BC, SELFPAY ==
[2022-05-09 11:47] VITALS: BP 127/83; PULSE 98; RESP 18; TEMP 36.6; O2SAT 95; BMI 44.3
[2022-05-09 11:54] VITALS: BP 132/79; PULSE 91; RESP 20
--- NOTE | 2022-05-09 12:01 | P.PCN_ITS ---
- Procedure Date: 05/09/22 Time: 12:01 Anesthesiologist:: Kalyan Childress CRNA Complications:: None Pre-procedure Diagnosis:: Degenerative disc disease lumbar spine multilevels. Lumbar spondylosis. Multilevel lumbar facet arthropathy. Post-procedure Diagnosis:: Same Indications for Procedure:: This patient is a very pleasant 51-year-old female that comes to our clinic today for lumbar medial branch block L4-5, L5-S1 bilaterally. Patient states her low back pain is constant, dull, aching. She rates the pain 8/10. Patient reports pain intensifies in flexion and extension. Procedure Details:: Informed consent was obtained and the risk and benefits of the procedure was explained to the patient. Patient was taken to the procedure room where noninvasive monitors were placed, including noninvasive blood pressure cuff as well as pulse oximeter. The area over the lumbar spine was cleansed using chlorhexidine as a cleansing solution. I anesthetized the skin and subcutaneous tissues with 1% Lidocaine. I placed 22-gauge spinal needles into the facet joint/ medial branches of L4-L5, and L5-S1] bilaterally. Needle placement was confirmed with fluoroscopy. After confirmation of needle placement, each site was injected with 1 mL of 1% lidocaine and 0.25 % Marcaine and 10 mg of Depo- Medrol. A total of 80 mg of depo medrol was used for bilateral medial branch blocks of L4-L5, and L5-S1] bilaterally. Patient tolerated the procedure without difficulty. There were no complications. Plan and Disposition:: Patient was discharged without incident.
[2022-05-09 12:02] VITALS: BP 121/65; PULSE 90; RESP 20; O2SAT 97
== END 2022-05-09 12:03 | disposition home or self-care (01) ==
LOC: SC.PAINP 11:40
PROVIDERS: PCP Internal Medicine; Visit Provider Nurse Anesthetist, Certified Registered
DX: M51.36 Other intervertebral disc degeneration, lumbar region (principal); M47.816 Spondylosis without myelopathy or radiculopathy, lumbar region; M19.90 Unspecified osteoarthritis, unspecified site; M79.7 Fibromyalgia; Z72.0 Tobacco use
CPT/HCPCS: 64493; 64494; J1040

== ENCOUNTER 2022-05-12 14:50 | Emergency (ER) | payer BC, SELFPAY ==
[2022-05-12] VITALS (8 sets, daily range): BP systolic 142–161; BP diastolic 84–93; PULSE 80–103; RESP 11–19; TEMP 37.1; O2SAT 95–99; BMI 28.6
--- NOTE | 2022-05-12 14:46 | ECG_ITS ---
APPROVED REPORT Exam: Resting ECG HR:105 bpm ECG Measurements Heart Rate 105 AXES OH 144 P 55 QRSd 89 QRS 11 QT 339 T 63 QTc 400 Conclusion SINUS TACHYCARDIA NONSPECIFIC T-WAVE ABNORMALITY ABNORMAL RHYTHM ECG UNCONFIRMED REPORT Electronically signed by : Mack Pennington MD 05/13/2022 14:15:18
--- NOTE | 2022-05-12 14:55 | XR_ITS ---
FINAL REPORT CLINICAL HISTORY: chest pain FINDINGS: PA and lateral views of the chest were obtained. There is no prior exam for comparison. The cardiac and mediastinal silhouettes are within normal limits. The lungs are clear. There is no pleural effusion or pneumothorax. No acute osseous abnormality is identified. IMPRESSION: No radiographic evidence of acute cardiac or pulmonary disease. Reviewed, Interpreted and Dictated by Dee Jones MD Transcribed by Pernell Dueñas Authenticated and [facility]
[2022-05-12 15:20] LABS: Basophils # 0.1 K/mm3 (0-0.2); Basophils % 0.6 % (0.1-2.0); Chloride 104 mmol/L (98-107); Eosinophils # 0.3 K/mm3 (0.0-0.4); Eosinophils % 1.6 % (0.1-12.0); Hematocrit 38.1 % (37.0-47.0); Hemoglobin 13.3 g/dL (12.2-16.2); Lymphocytes # 2.4 K/mm3 (0.7-4.5); Lymphocytes % 15.4 % (10-50); Mean Corpuscular HGB Conc 34.8 g/dL (31.8-35.4); Mean Corpuscular Hemoglobin 31.2 pg (27.0-31.2); Mean Corpuscular Volume 89.8 fl (81-99); Mean Platelet Volume 7.4 fl (7.4-10.4); Monocytes # 0.6 K/mm3 (0.1-1.0); Monocytes % 4.1 % (1.7-9.3); Neutrophils % 78.2 % (37.0-80.0); Platelet Count 335 K/mm3 (142-424); Potassium 3.8 mmoL/L (3.5-5.1); Red Blood Count 4.25 M/mm3 (4.20-5.40); Red Cell Distribution Width 13.7 % (11.5-17.5); Sodium 139 mmol/L (136-145); White Blood Count 15.3 K/mm3 (4.8-10.8)
[2022-05-12 15:22] LABS: MANUAL DIFFERENTIAL MANUAL DIFFERENTIAL (MANUAL DIFF)
[2022-05-12 15:23] LABS: Anion Gap 12.8 mEq/L (5-15); Blood Urea Nitrogen 18 mg/dl (7-17); Calcium 9.7 mg/dl (8.4-10.2); Carbon Dioxide 26 mmol/L (22.0-30.0); Creatinine Clearance Estimated 109 mL/min (50-200); Estimated Glomerular Filt Rate 76 ml/min (>60); GFR (African American) 92 ML/MIN (>60); Glucose 173 mg/dl (74-100)
[2022-05-12 15:36] LABS: Troponin I < 0.01 ng/ml (0.00-0.034)
[2022-05-12 15:40] LABS: Lymphocytes % 27 % (10-50); Monocytes % 3 % (2-9); Neutrophils % 70 % (42-76); Nucleated Red Blood Cells 1; Total Cells Counted 100
[2022-05-12 15:41] LABS: Platelet Estimate Normal
[2022-05-12 15:42] LABS: RBC Morphology Normal
--- NOTE | 2022-05-12 15:59 | HMH.EDCP ---
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 Prescriptions: methocarbamoL [Methocarbamol] 500 mg PO TID PRN #30 tab PRN Reason: Muscle Pain Transmission Status: Received by [facility] Referrals: Provider,Referral, [Primary Care Provider] - - Critical Care Critical Care Time: No Attestation: On 05/12/22, the high probability of a clinically significant, sudden or life threatening deterioration of the following system(s) required my full and direct attention, intervention and personal management. The time I documented below is in addition to time spent performing reported procedures but includes the following listed in this critical care notation. Medical Decision Making - Husam Inquiry Pt receiving controlled substance: No Husam was queried for this patient: No Vital Signs: 05/12/22 14:51 05/12/22 16:00 05/12/22 16:30 Temperature 98.8 F Temperature Source Oral Pulse Rate 89 88 Pulse Rate [Left Radial] 103 H Respiratory Rate 19 15 13 Blood Pressure 157/84 H 145/93 H Blood Pressure [Right Arm] 157/93 H Blood Pressure Mean Blood Pressure Mean [Right Arm] 114 Blood Pressure Source [Right Arm] Automatic Cuff Blood Pressure Position [Right Arm] Sitting 02 Sat by Pulse Oximetry 97 95 96 Oxygen Delivery Method Room Air 05/12/22 17:00 05/12/22 17:30 05/12/22 18:00 Temperature Temperature Source Pulse Rate 91 H 82 Pulse Rate [Left Radial] Respiratory Rate 15 11 L 13 Blood Pressure 142/88 H 151/88 H 159/88 H Blood Pressure [Right Arm] Blood Pressure Mean 102 103 Blood Pressure Mean [Right Arm] Blood Pressure Source [Right Arm] Blood Pressure Position [Right Arm] 02 Sat by Pulse Oximetry 97 99 Oxygen Delivery Method 05/12/22 18:30 05/12/22 19:02 Temperature 98.8 F Temperature Source Pulse Rate 80 80 Pulse Rate [Left Radial] Respiratory Rate 13 13 Blood Pressure 161/93 H 161/93 H Blood Pressure [Right Arm] Blood Pressure Mean 103 Blood Pressure Mean [Right Arm] Blood Pressure Source [Right Arm] Blood Pressure Position [Right Arm] 02 Sat by Pulse Oximetry Oxygen Delivery Method Room Air - Lab Data Lab Results 05/12/22 14:55: WBC 15.3 H, RBC 4.25, Hgb 13.3, Hct 38.1, MCV 89.8, MCH 31.2, MCHC 34.8, RDW 13.7, Plt Count 335, MPV 7.4, Neut % (Auto) 78.2, Lymph % (Auto) 15.4, [place] % (Auto) 4.1, Eos % (Auto) 1.6, Baso % (Auto) 0.6, Neut # (Auto) 12.0 H, Lymph # (Auto) 2.4, [place] # (Auto) 0.6, Eos # (Auto) 0.3, Baso # (Auto) 0.1, Total Counted 100, Neutrophils % (Manual) 70, Lymphocytes % (Manual) 27, Monocytes % (Manual) 3, Nucleated RBCs 1, Platelet Estimate Normal, RBC Morphology Normal 05/12/22 14:55: Sodium 139, Potassium 3.8, Chloride 104, Carbon Dioxide 26, Anion Gap 12.8, BUN 18 H, Creatinine 0.80, Estimated Creat Clear 109, Estimated GFR 76, Est GFR ( Amer) 92, Glucose 173 H, Calcium 9.7, Troponin I < 0.01 05/12/22 17:30: Troponin I < 0.01 Result diagrams: 05/12/22 14:55 05/12/22 14:55 Orders (Tests/Meds): ED MEDICATIONS Discontinued Medications Generic Name Dose Route Start Last Admin Trade Name Fannie PRN Reason Stop Dose Admin Aspirin 324 mg 05/12/22 15:28 05/12/22 15:30 Aspirin 81mg Chewable Tablet PO 05/12/22 15:29 324 mg ONCE ONE Administration Ketorolac Tromethamine 15 mg 05/12/22 18:39 05/12/22 18:59 Ketorolac 30mg/Ml Vial IV 05/12/22 18:40 15 mg ONCE ONE Administration Sodium Chloride 10 ml 05/12/22 14:55 Sodium Chloride 0.9% 10ml Flush Syringe IV 06/11/22 14:54 NEEDED PRN Maintain IV Site ORD
--- NOTE | 2022-05-12 16:21 | PC.NURSE ---
rounded on patient pt stated that there were no needs at this time
--- NOTE | 2022-05-12 16:23 | PC.NURSE ---
update pt and family that has been with a critical pt and will be in as soon as he can
[2022-05-12 18:26] LABS: Troponin I < 0.01 ng/ml (0.00-0.034)
== END 2022-05-12 19:13 | disposition home or self-care (01) ==
PROVIDERS: Emergency Provider Student in an Organized Health Care Education/Training Program
DX: R07.9 Chest pain, unspecified (principal); Z79.899 Other long term (current) drug therapy; I10 Essential (primary) hypertension; E78.5 Hyperlipidemia, unspecified; G43.909 Migraine, unspecified, not intractable, without status migrainosus; J45.909 Unspecified asthma, uncomplicated; F41.9 Anxiety disorder, unspecified; F32.A Depression, unspecified; K21.9 Gastro-esophageal reflux disease without esophagitis; M19.90 Unspecified osteoarthritis, unspecified site; E03.9 Hypothyroidism, unspecified; M79.7 Fibromyalgia
CPT/HCPCS: 71046; 80048; 84484; 85007; 85025; 93005; 96374; 99284; C9803; U0003; U0005

== ENCOUNTER → 2022-05-29 10:49 | Outpatient (POV) | payer BC, SELFPAY ==
[2022-05-29 11:03] VITALS: BP 117/76; PULSE 100; RESP 20; BMI 46.3
--- NOTE | 2022-05-29 12:23 | HMH.PAINSOAP ---
[facility] Pain Management SOAP Note Subjective:: Patient is a pleasant 51-year-old female that presents today for follow-up from a lumbar medial branch block at L4-5 and L5-S1 bilaterally on 05/09/2022. We are currently treating the patient for degenerative disc disease of lumbar spine multilevels with lumbar spondylosis and multilevel lumbar facet arthropathy. Patient states that she has had 75% improvement with this injection however she stated it lasted less than 24 hours. Today she states her pain is an 8 out of 10. She states that this is an aching sensation that is worse with activity. She states it is all in her low back area. Patient denies any new trauma or injury to the site. Patient denies any change to the location or type of pain that she experiences. patient did state that the compounding cream we prescribed did not seem to help. Patient does use [id number] Tylenol and ibuprofen as needed with minimal improvement. Patient states her kidney doctor did not want her taking diclofenac due to concern that it may start affecting her kidneys. Her Husam is [id number]. It has been reviewed and is appropriate. Review of Systems: General: No recent weight changes, no fever, no sleep disturbances Respiratory: No cough, no shortness of air, no recurring pulmonary infections Cardiovascular/peripheral vascular: No chest pain, no palpitations, no edema, no shortness of breath Gastrointestinal: No new onset incontinence, normal bowel movements reported Genitourinary: No new onset incontinence Musculoskeletal: Low back pain Psychiatric: [Normal mood/affect] Neurological: [Denies weakness in extremities], [denies balance issues] Objective:: Physical Exam: General: Alert and oriented x3, no acute distress, pleasant and cooperative Lungs: Respirations even and unlabored, symmetrical chest expansion Eyes: PERRL Musculoskeletal: Flexion and extension of lumbar [spine] somewhat guarded secondary to pain, [antalgic gait noted]. Point tenderness along lumbar spine. Positive Kemps test Neurological: Speech clear, no gross sensory deficit Assessment:: Degenerative disc disease of lumbar spine multilevels with lumbar spondylosis and multilevel lumbar facet arthropathy Plan:: Patient is experiencing significant pain along her low back. She did have significant 75% improvement with her last medial branch block however it did not provide long-term relief. She did have point tenderness along her lumbar spine and a positive Kemps test during today's exam. I have discussed with her regarding doing a second medial branch block. Risk and benefits were discussed with the patient. She would like to proceed forward with this injection at this time. Patient is not currently on any blood thinners. I have also discussed with the patient regarding a future ablation if she does get significant relief again with the second injection. I will order the patient tramadol 50 mg twice daily at today's visit. Patient will be scheduled for a medial branch block of L4-5 and L5-S1 today. Patient has been instructed to contact the clinic with any concerns before the next appointment. Dr. Banerjee has reviewed this note and agrees with this plan of care. This note was dictated using voice recognition software and make contain errors or omissions. [facility] History I have reviewed the patient's past medical history: Yes Medical History: Reports:: Anxiety, Asthma, Depression, Gastroesophageal Reflux Disease(GERD), Hyperlipidemia, Hypertension, Migraine Denies:: Cancer, Diabetes Mellitus Type 1, Diabetes Mellitus Type 2, MRSA, Seizures *Have you ever received a pneumonia vaccine?: No *Have you received a flu vaccine this season?: No Other Medical History: Reports: Arthritis (osteo-), Fibromyalgia, Hypothyroidism, Sinus Problems, Other (degenerative bone disease of the spine ). Denies: Blood Transfusion Reaction Laterality Cases: Right: Arthroscopy Shoulder, Bilateral: Carpal Tunnel Releas
== END ==
PROVIDERS: Visit Provider Nurse Practitioner Family
DX: M51.36 Other intervertebral disc degeneration, lumbar region (principal); M47.26 Other spondylosis with radiculopathy, lumbar region
CPT/HCPCS: 99212; G0463

== ENCOUNTER 2022-06-02 16:32 | Emergency (ER) | payer BC, SELFPAY ==
[2022-06-02 17:15] VITALS: BP 137/79; PULSE 96; RESP 18; TEMP 36.6; O2SAT 97; BMI 45.8
[2022-06-02 17:28] LABS: Apearance,Urine Clear (Clear); Blood, Urine Negative (Negative); Color,Urine Yellow (Yellow); Glucose,Urine (UA) Negative (Negative); Ketones,Urine Negative (Negative); Protein,Urine Negative (Negative); Specific Gravity, Urine 1.015 (1.005-1.030)
[2022-06-02 17:29] LABS: Bilirubin,Urine Negative (Negative); UTC Leukocyte Esterase,Urine Negative (Negative); UTC Nitrate,Urine Negative (Negative); Urobilinogen,Urine 0.2 EU/dl (0.2)
--- NOTE | 2022-06-02 17:41 | HMH.EDUTC ---
[facility] Disposition Clinical Impression: Low back pain Qualifiers: Chronicity: unspecified Back pain laterality: unspecified Sciatica presence: unspecified whether sciatica present Qualified Code(s): M54.50 - Low back pain, unspecified Disposition: Home, Self-Care Condition on Discharge: Good Additional Instructions: *Ibuprofen ilene 6 hours with meal as needed for pain/inflammation if you doctor has said you can take it if not Tylenol *Remember you had a Toradol shot in the clinic today, which is similar to Motrin *Not additional anti-inflammatory like motrin, aleve, advil with the above amount of ibuprofen. You can still take Tylenol every 4 hours as needed if you need something else for pain *Ice 20 minutes every 2 hours for the first 48 hours after the initial injury followed by moist heat every 20 minutes 3-4 times a day to affected area *Muscle relaxer every 8 hours as needed for muscle spasms but remember, it WILL cause drowsiness You cannot take it and drive, operate machinery or care for small children. *Keep this area active, no movement leads to more stiffness, However take it easy and avoid heavy lifting pushing or pulling *Follow up with you family doctor if no improvement for further treatment Prescriptions: methocarbamoL [Methocarbamol 500mg Tablet] 500 mg PO Q8HP PRN #30 tab PRN Reason: Muscle Spasm Transmission Status: Received by [facility] Referrals: Ronaldo Kong [Primary Care Provider] - As needed Medical Decision Making - Husam Inquiry Pt receiving controlled substance: No Husam was queried for this patient: No Vital Signs: 06/02/22 17:15 06/02/22 18:01 Temperature 97.8 F 97.8 F Temperature Source Oral Pulse Rate 96 H Pulse Rate [Left Brachial] 96 H Respiratory Rate 18 18 Blood Pressure 137/79 Blood Pressure [Left Arm] 137/79 Blood Pressure Mean [Left Arm] 98 Blood Pressure Source [Left Arm] Automatic Cuff Blood Pressure Position [Left Arm] Sitting 02 Sat by Pulse Oximetry 97 Oxygen Delivery Method Room Air - Lab Data Lab results reviewed: Yes: I reviewed the patient's lab results. Lab Results 06/02/22 17:17: Urine Color Yellow, Urine Appearance Clear, Urine pH 7.0, Ur Specific Walls 1.015, Urine Protein Negative, Urine Glucose (UA) Negative, Urine Ketones Negative, Urine Blood Negative, Urine Nitrate Negative, Urine Bilirubin Negative, Urine Urobilinogen 0.2, Ur Leukocyte Esterase Negative Orders (Tests/Meds): ED MEDICATIONS Discontinued Medications Generic Name Dose Route Start Last Admin Trade Name Fannie PRN Reason Stop Dose Admin Ketorolac Tromethamine 30 mg 06/02/22 17:49 06/02/22 18:00 Ketorolac 60mg/2ml Vial IM 06/02/22 17:50 30 mg ONCE ONE Administration Medical Decision Narrative: Medication discussed with pharmacy [facility] HPI - General Stated complaint: lower back pain Time Seen by Provider: 06/02/22 17:41 Mode of Arrival: Ambulatory Source of Information: Patient Limitations: No Limitations Description of Symptoms (Recalled from Triage Doc. by RN): PATIENT C/O LOWER BACK PAIN THAT RADIATES DOWN BILATERAL LEGS SINCE THURSDAY MORNING HEENT Symptoms (Recalled from RN notes): No Resp Symptoms (Recalled from RN notes): No Skin Symptoms (Recalled from RN notes): No MS Symptoms (Recalled from RN notes): Yes Functional Status (Recalled from RN notes): WNL - History of Present Illness Provider Complaint: Patient states that she has chronic back pain States that she is scheduled to have procedure done in Dr Banerjee office on Thursday however pain medication is not helping much with pain and she has took a couple of her prescribed methocarbamol and it has helped but she is out of them and needed to get more to try to help her through until she has her procedure on Thursday Denies loss of control of bowel or bladder - Related Data Home Medications Medication Instructions Recorded Confirmed Lisinopril/Hydrochlorothiazide 1 ta
[2022-06-02 18:01] VITALS: BP 137/79; PULSE 96; RESP 18; TEMP 36.6; O2SAT 97
== END 2022-06-02 18:19 | disposition home or self-care (01) ==
PROVIDERS: Emergency Provider Nurse Practitioner; PCP Internal Medicine
DX: M54.50 Low back pain, unspecified (principal)
CPT/HCPCS: 81003; 99212; G0463

== ENCOUNTER 2022-06-06 11:09 | Day surgery (SDC) | payer BC, SELFPAY ==
[2022-06-06 11:16] VITALS: BP 107/47; PULSE 66; RESP 20; TEMP 35.7; O2SAT 95; BMI 46.3
[2022-06-06 11:47] VITALS: BP 96/57; PULSE 73; RESP 18; O2SAT 97
--- NOTE | 2022-06-06 11:48 | P.PCN_ITS ---
- Procedure Date: 06/06/22 Time: 11:48 Anesthesiologist:: Kalyan Childress CRNA Complications:: None Pre-procedure Diagnosis:: Degenerative disc disease lumbar spine multilevels. Lumbar spondylosis. Multilevel lumbar facet arthropathy. Post-procedure Diagnosis:: Same Indications for Procedure:: This patient is a very pleasant 51-year-old female that comes our clinic today for repeat medial branch block L4-5, L5-S1. Patient had good relief with her initial round of medial branch block at the same level. She rates her pain today 6/10. Procedure Details:: Informed consent was obtained and the risk and benefits of the procedure was explained to the patient. Patient was taken to the procedure room where noninvasive monitors were placed, including noninvasive blood pressure cuff as well as pulse oximeter. The area over the lumbar spine was cleansed using chlorhexidine as a cleansing solution. I anesthetized the skin and subcutaneous tissues with 1% Lidocaine. I placed 22-gauge spinal needles into the facet joint/ medial branches of [L3-L4, L4-L5, and L5-S1] bilaterally. Needle placement was confirmed with fluoroscopy. After confirmation of needle p lacement, each site was injected with 1 mL of 1% lidocaine and 0.25 % Marcaine and 10 mg of Depo-Medrol. A total of 80 mg of depo medrol was used for bilateral medial branch blocks of [L3-L4, L4-L5, and L5-S1] bilaterally. Patient tolerated the procedure without difficulty. There were no complications. Plan and Disposition:: Patient was discharged without incident.
== END 2022-06-06 11:48 | disposition home or self-care (01) ==
LOC: SC.PAINP 11:10
PROVIDERS: PCP Internal Medicine; Visit Provider Nurse Anesthetist, Certified Registered
DX: M51.36 Other intervertebral disc degeneration, lumbar region (principal); M47.26 Other spondylosis with radiculopathy, lumbar region
CPT/HCPCS: 64493; 64494; 64495; J1040

== ENCOUNTER → 2022-06-18 13:50 | Outpatient (POV) | payer BC, SELFPAY ==
--- NOTE | 2022-06-18 14:33 | EXP.PAIN.SOA ---
[facility] Pain Management SOAP Note Subjective:: Patient is a pleasant 52-year-old female that presents today from follow-up of medial branch block L4-5, L5-S1 on 06/06/2022. We are currently treating the patient for degenerative disc disease of lumbar spine multilevels with lumbar radiculopathy symptoms, lumbar spondylosis and multilevel lumbar facet arthropathy. Patient states that she had minimal relief of her symptoms following this injection. Patient states she felt like they had a nerve with this injection and she had worsening pain for the first couple of days however at today's visit that pain has subsided. Today she rates her pain a 5 out of 10 and states it is in her low back and radiates into her left leg. Patient still states this is a aching sensation that is worse with increased activity. Patient has been prescribed compounding cream however she states she had minimal relief of her symptoms. She has tried [id number] Tylenol and ibuprofen with minimal improvement and states that her kidney doctor does not want her taking diclofenac due to the concern it may start affecting her kidneys. She has been taking tramadol 50 mg twice a day and states this does provide moderate improvement of her symptoms. She states she will need a refill around 06/29 on this medication. Her Husam is [id number]. Its been reviewed and appropriate Review of Systems: General: No recent weight changes, no fever, no sleep disturbances Respiratory: No cough, no shortness of air, no recurring pulmonary infections Cardiovascular/peripheral vascular: No chest pain, no palpitations, no edema, no shortness of breath Gastrointestinal: No new onset incontinence, normal bowel movements reported Genitourinary: No new onset incontinence Musculoskeletal: Low back pain, left leg pain Psychiatric: [Normal mood/affect] Neurological: [Denies weakness in extremities], [denies balance issues] Objective:: Physical Exam: General: Alert and oriented x3, no acute distress, pleasant and cooperative Lungs: Respirations even and unlabored, symmetrical chest expansion Eyes: PERRL Musculoskeletal: Flexion and extension of lumbar [spine] somewhat guarded secondary to pain, [antalgic gait noted] Neurological: Speech clear, no gross sensory deficit Assessment:: Degenerative disc disease of lumbar spine multilevels with lumbar radiculopathy, lumbar spondylosis and multilevel lumbar facet arthropathy Plan:: Patient continues to have significant pain along her low back that radiates into her left leg. Patient has had 2 sets of medial branch blocks that have not provided significant improvement of her symptoms. I have discussed with the patient regarding a lumbar epidural steroid injection. Risk and benefits were discussed with the patient. She would like to proceed forward with this injection. She is not currently on any blood thinners. We will schedule her for a LESI at L4-L5. Patient has been instructed to contact the clinic with any concerns before the next appointment. Dr. Banerjee has reviewed this note and agrees with this plan of care. This note was dictated using voice recognition software and make contain errors or omissions. PFSH PFSH Social History Smoking Status: Current every day smoker tobacco type: cigarettes packs per day: 1 alcohol intake: never current occupational status: other housing: house current occupational exposures/hazards: No caffeine: Yes
[2022-06-18 14:53] VITALS: BP 127/56; PULSE 80; RESP 20; TEMP 36.6; O2SAT 98; BMI 46.0
== END ==
PROVIDERS: PCP Internal Medicine; Visit Provider Nurse Practitioner Family
DX: M51.16 Intervertebral disc disorders with radiculopathy, lumbar region (principal); M47.26 Other spondylosis with radiculopathy, lumbar region
CPT/HCPCS: 99212; G0463

== ENCOUNTER 2022-07-08 14:19 | Day surgery (SDC) | payer BC, SELFPAY ==
[2022-07-08 14:26] VITALS: BP 154/87; PULSE 96; RESP 18; TEMP 37.1; O2SAT 97; BMI 46.3
--- NOTE | 2022-07-08 14:30 | P.PCN_ITS ---
Procedure Date: 07/08/22 Time: 14:31 Anesthesiologist:: Kalyan Childress CRNA Complications:: None Pre-procedure Diagnosis:: Degenerative disc disease lumbar spine multilevels. Lumbar radiculopathy. Post-procedure Diagnosis:: Same Indications for Procedure:: Patient is a pleasant 52-year-old female that comes our clinic today for lumbar epidural steroid injection. Patient complains of low back pain as well as bilateral hip and leg radicular symptoms. She rates her pain today 7/10. Roxi ent is taking tramadol 50 mg 1 p.o. twice daily. Patient states this does help to some degree to improve her symptoms. Procedure Details:: Procedure: Lumbar epidural steroid injection under fluoroscopy Informed consent was obtained and the risks and benefits of the procedure were explained to the patient. The patient was taken to the procedure room and noninvasive monitors placed, including noninvasive blood pressure cuff and pulse oximeter. The back was viewed using C-arm Fluoroscopy and prepped using Betadine as a cleansing solution and the L4-L5 interspace was palpated. Skin and subcutaneous tissues were anesthetized using lidocaine 1.5% and a 25-gauge needle. After this, an 18-gauge Touhy epidural needle was placed into the L4-L5 interspace and advanced using fluoroscopic guidance and loss of resistance to air until the epidural space was encountered. After confirmation of needle placement in the epidural space, with dye, a solution containing lidocaine 1.5%, 4 mL and Depo-Medrol 80 mg were incrementally injected into the lumbar epidural space. The patient tolerated the procedure well with no complications. The patient was observed in the Pain Clinic and then discharged home neurologically intact. Plan and Disposition:: Patient was discharged without incident.
[2022-07-08 14:31] VITALS: BP 160/87; PULSE 94; RESP 18; O2SAT 97
[2022-07-08 14:33] VITALS: BP 160/87; PULSE 91; RESP 18; O2SAT 96
[2022-07-08 14:42] VITALS: BP 127/65; PULSE 88; RESP 18; O2SAT 96
== END 2022-07-08 14:42 | disposition home or self-care (01) ==
PROVIDERS: PCP Internal Medicine; Visit Provider Nurse Anesthetist, Certified Registered
DX: M51.16 Intervertebral disc disorders with radiculopathy, lumbar region (principal); M47.26 Other spondylosis with radiculopathy, lumbar region
CPT/HCPCS: 62323; J1040

== ENCOUNTER 2022-07-22 13:41 | Emergency (ER) | payer BC, SELFPAY ==
[2022-07-22 13:57] VITALS: BP 144/92; PULSE 89; RESP 16; TEMP 36.7; O2SAT 97; BMI 47.7
--- NOTE | 2022-07-22 14:02 | EXP.UTC ---
Discharge Plan Disposition Patient Disposition: Home, Self-Care Condition: Good Prescriptions Prescriptions: No Action albuterol sulfate [ProAir HFA] 90 mcg/actuation HFA aerosol inhaler 2 inh INHALATION DIRECTED cyanocobalamin (vitamin B-12) 1,000 mcg/mL solution 1,000 mcg IM DAILY meloxicam [Mobic] 7.5 mg tablet 7.5 mg PO ONCE 30 Days Qty: 30 2RF Magic Mouthwash [Magic Mouthwash;240ml Botttle] 240 ML/BOT bottle 15 ml PO QIDP PRN (Reason: Mouth Irritation) Qty: 360 0RF Rx Instructions: Swish and spit 15 milliliters qid prn for mouth irritation. nystatin 100,000 UNIT/ML suspension 5 ml PO QID Rx Instructions: Swish and swallow 5 milliliters qid for 7 days. valacyclovir 1,000 MG tablet 1,000 mg PO TID hydrocodone-acetaminophen 1 TAB tablet 1 tab PO BID Lactobac comb [id number] 1 EACH capsule 1 each PO BID lisinopril-hydrochlorothiazide 1 EACH tablet 5 tab PO DAILY spironolactone 25 MG tablet 25 mg PO DAILY atorvastatin 80 MG tablet 80 mg PO HS carvedilol 6.25 MG tablet 12.5 mg PO BID venlafaxine 75 MG capsule,extended release 24hr 75 mg PO DAILY bumetanide 2 MG tablet 2 mg PO DAILY venlafaxine 150 MG capsule,extended release 24hr 150 mg PO DAILY hydroxyzine pamoate 50 MG capsule 50 mg PO TID PRN (Reason: Anxiety) lamotrigine 25 MG tablet 25 mg PO TID zonisamide 100 MG capsule 100 mg PO TID potassium chloride 20 MEQ tablet 80 meq PO BID trazodone 100 MG tablet 100 mg PO HS ropinirole 0.25 MG tablet 0.25 mg PO HS baclofen 10 MG tablet 10 mg PO TID pantoprazole 40 MG tablet,delayed release (DR/EC) 40 mg PO BID promethazine 25 MG tablet 25 mg PO Q6H PRN (Reason: Nausea And Vomiting) ergocalciferol (vitamin D2) 50,000 UNIT capsule 1 tab PO WEEKLY aripiprazole 10 MG tablet 10 mg PO DAILY levothyroxine 88 MCG capsule 88 mcg PO DAILY metolazone 5 MG tablet 5 mg PO DAILY xzxqjydpfn-tnkrvwtp-yzvtjtapgz 160-9-4.8 mcg/actuation HFA aerosol inhaler 2 inh INHALATION DAILY diclofenac sodium 75 MG tablet,delayed release (DR/EC) 75 mg PO BID tramadol 50 MG tablet 50 mg PO BID methocarbamol 500 MG tablet 500 mg PO Q8HP PRN (Reason: Muscle Spasm) Qty: 30 0RF Referrals Follow up/Referrals: Ronaldo Kong [Primary Care Provider] - See instructions Activity Restrictions/Add. Instructions Additional Instructions/Restrictions: Drink plenty of fluids. Follow up with your regular doctor. GO TO THE ER FOR ANY WORSENING SYMPTOMS Clinical Impressions Clinical Impression: Migraine Instructions Patient Instructions: DI for Migraine, Promethazine, Ketorolac, Methylprednisolone Injection Discharge ED Provider: Paresh Lozano [facility] General Stated complaint: MCGHEE Mode of Arrival: Ambulatory Source of Information: Patient and Relative Limitations: No Limitations Time Seen by Provider: 07/22/22 14:00 Description of Symptoms (Recalled from Triage Doc. by RN): pt comes in with c/o migraine for 5 days HEENT Symptoms (Recalled from RN notes): Yes Resp Symptoms (Recalled from RN notes): No Skin Symptoms (Recalled from RN notes): No MS Symptoms (Recalled from RN notes): No Functional Status (Recalled from RN notes): n/a History of Present Illness Provider Complaint: She states that for the past 5 days she has migraine headache symptoms. She has had them to last this long in the past and she had to come in to get some shots to break them. She has a long history of migraine. She denies any numbness, weakness or other symptoms. Related Data Home Medications Medication Instructions Recorded Confirmed lisinopril 10 5 tab PO DAILY blood pressure 06/09/18 07/08/22 mg-hydrochlorothiazide 12.5 mg tablet aripiprazole 10 mg tablet 10 mg PO DAILY . 05/25/21 07/08/22 atorvastatin 80 mg t
[2022-07-22 14:54] VITALS: BP 144/92; PULSE 89; RESP 16; TEMP 36.7
== END 2022-07-22 15:02 | disposition home or self-care (01) ==
PROVIDERS: Emergency Provider Nurse Practitioner Family; PCP Internal Medicine
DX: G43.909 Migraine, unspecified, not intractable, without status migrainosus (principal); Z79.899 Other long term (current) drug therapy; Z88.7 Allergy status to serum and vaccine; Z88.8 Allergy status to other drugs, medicaments and biological substances; F41.9 Anxiety disorder, unspecified; J45.909 Unspecified asthma, uncomplicated; I50.9 Heart failure, unspecified; F32.A Depression, unspecified; Z82.49 Family history of ischemic heart disease and other diseases of the circulatory system; Z83.438 Family history of other disorder of lipoprotein metabolism and other lipidemia
CPT/HCPCS: 96372; 99213; G0463

== ENCOUNTER → 2022-07-24 12:34 | Outpatient (POV) | payer BC, SELFPAY ==
[2022-07-24 12:54] VITALS: BP 146/70; PULSE 89; RESP 18; TEMP 35.9; O2SAT 97; BMI 47.7
--- NOTE | 2022-07-24 13:16 | EXP.PAIN.SOA ---
[facility] Pain Management SOAP Note Subjective:: Patient is a pleasant 52-year-old female who presents today for follow-up of lumbar epidural steroid injection at L4-L5 on 07/08/2022. We are currently treating the patient for degenerative disc disease of lumbar spine multilevels with lumbar radiculopathy symptoms. Patient states that she has not had any improvement following this injection. She rates her pain an 8 out of 10 and states it is primarily in her low back that radiates into her bilateral lower extremities. Patient denies any new trauma or injury. She denies any change to location or type of pain she experiences. Patient has had multiple injective therapies in the past that have not provided significant improvement. Patient has recently been told by her inpatient coder that she needs a pacemaker. [facility] has currently put the pacemaker on hold due to a new finding of a mass on the patient's brain about 2 weeks ago. They think possibly that she may have MS. Patient has been referred to however she is unable to get into see them until around September. Patient is currently managed with tramadol 50 mg twice daily. Patient denies any side effects from this medication. She states this medication does adequately help manage her pain symptoms. She also takes a muscle relaxer baclofen that provides additional improvement of her symptoms. Patient states her pain is aggravated by increased activity and it does get better when she lays down and rest. Patient has tried dkxb-dcq-spfcnrh medications with no improvement of her symptoms as well as heat and ice. Her Husam is [id number]. It is been reviewed and appropriate. Review of Systems: General: No recent weight changes, no fever, no sleep disturbances Respiratory: No cough, no shortness of air, no recurring pulmonary infections Cardiovascular/peripheral vascular: No chest pain, no palpitations, no edema, no shortness of breath Gastrointestinal: No new onset incontinence, normal bowel movements reported Genitourinary: No new onset incontinence Musculoskeletal: Low back pain Psychiatric: [Normal mood/affect] Neurological: [Denies weakness in extremities], [denies balance issues] Objective:: Physical Exam: General: Alert and oriented x3, no acute distress, pleasant and cooperative Lungs: Respirations even and unlabored, symmetrical chest expansion Eyes: PERRL Musculoskeletal: Flexion and extension of lumbar [spine] somewhat guarded secondary to pain, [antalgic gait noted] Neurological: Speech clear, no gross sensory deficit Assessment:: Degenerative disc disease lumbar spine multilevels with lumbar radiculopathy symptoms Plan:: Patient is experiencing significant pain in her low back that radiates into her bilateral lower extremities. I will reorder the patient's tramadol 50 mg twice daily and provide a 1 month supply of this medication. I have counseled the patient to contact her inpatient coder office and make sure they understand that she cannot get into see anyone at for the possible MS diagnosis until the end of the year, in case she needs to proceed forward with the pacemaker. We will follow-up with the patient in 1 month. I have discussed with the patient regarding being a possible candidate for a spinal cord stimulator in the future. Risk and benefits were discussed with the patient. Patient was given educational materials at today's visit. Patient will return to clinic in 1 month for reevaluation of symptoms and follow-up. Patient has been advised of risks of oversedation with the prescribed medication. Narcan has been offered to the patient in the event of oversedation. Patient has been advised that a family member should also be educated regarding administration of Narcan. Patient has been instructed to contact the clinic with any concerns before the next appointment. Dr. Banerjee has reviewed this note and agrees with this plan of care. This note was dictated using voice recognition so
== END ==
PROVIDERS: Visit Provider Nurse Practitioner Family
DX: M51.16 Intervertebral disc disorders with radiculopathy, lumbar region (principal)
CPT/HCPCS: 99212; G0463

== ENCOUNTER → 2022-08-07 11:25 | Outpatient (POV) | payer BC, SELFPAY ==
--- NOTE | 2022-08-07 12:02 | EXP.PAIN.SOA ---
[facility] Pain Management SOAP Note Subjective:: Patient is a pleasant 52-year-old female who presents today for follow-up. We are currently treating the patient for degenerative disc disease of lumbar spine multilevels with lumbar radiculopathy symptoms. Today she rates her pain a 5 out of 10. She states the pain is in her low with radiating symptoms to her lower extremities. Patient denies any new trauma or injury. She denies any change location or type of pain she experiences. Patient has had multiple injective therapies in the past that have not provided significant improvement. Previously the patient did find a mass on her brain that they were questioning was possibly MS. Patient has been referred to however she is not going to get into see them until around September. Patient also was scheduled to have a pacemaker however this was put on hold once the mass was found. Today the patient states she is getting her pacemaker put in this coming Thursday. She is currently managed with tramadol 50 mg twice a day. Patient denies any side effects from this medication. She states this medication does help manage her pain symptoms. She also takes muscle relaxer baclofen that provides additional improvement of her symptoms. Patient has tried wqgj-hoh-mygrnxq medications with no improvement as well as heat and ice. Previously it was discussed that the patient may be a good candidate for a spinal cord stimulator trial. Patient states that she would like to proceed forward with this option. Her Husam is [id number]. It has been reviewed and appropriate. Review of Systems: General: No recent weight changes, no fever, no sleep disturbances Respiratory: No cough, no shortness of air, no recurring pulmonary infections Cardiovascular/peripheral vascular: No chest pain, no palpitations, no edema, no shortness of breath Gastrointestinal: No new onset incontinence, normal bowel movements reported Genitourinary: No new onset incontinence Musculoskeletal: Low back pain, bilateral leg pain Psychiatric: [Normal mood/affect] Neurological: [Denies weakness in extremities], [denies balance issues] Objective:: Physical Exam: General: Alert and oriented x3, no acute distress, pleasant and cooperative Lungs: Respirations even and unlabored, symmetrical chest expansion Eyes: PERRL Musculoskeletal: Flexion and extension of lumbar [spine] somewhat guarded secondary to pain, [antalgic gait noted] Neurological: Speech clear, no gross sensory deficit Assessment:: Degenerative disc disease of lumbar spine multilevels with lumbar radiculopathy symptoms Plan:: Patient continues to have significant pain in her low back that radiates into her bilateral lower extremities. Patient did have limited range of motion of her lumbar spine during today's visit. Patient has tried and failed conservative therapy such as oral medications, injective therapy, heat and ice, topical therapy, at home exercising and stretching for longer than 6 weeks. Risk and benefits of the spinal cord stimulator trial were discussed with the patient. She would like to proceed forward with this option. I have counseled the patient that we will order the psychiatric evaluation at today's visit however we will not be able to proceed forward with the trial until her pacemaker is placed and patient is able to get cardiac clearance from her doctor. I will refill the patient's tramadol 50 mg twice a day and provide a 1 month supply of this medication. We will follow-up with this patient in 1 month for reevaluation of symptoms, medication refill and plan of care. Patient has been advised of risks of oversedation with the prescribed medication. Narcan has been offered to the patient in the event of oversedation. Patient has been advised that a family member should also be educated regarding administration of Narcan. Patient has been instructed to contact the clinic with any concerns before the next appointment. Dr. Banerjee has
[2022-08-07 12:13] VITALS: BP 138/70; PULSE 86; RESP 18; TEMP 36.6; O2SAT 98; BMI 46.3
== END | disposition home or self-care (01) ==
PROVIDERS: PCP Internal Medicine; Visit Provider Student in an Organized Health Care Education/Training Program
DX: M51.16 Intervertebral disc disorders with radiculopathy, lumbar region (principal); Z72.0 Tobacco use
CPT/HCPCS: 99212; G0463

== ENCOUNTER → 2022-09-04 10:40 | Outpatient (POV) | payer BC, SELFPAY ==
--- NOTE | 2022-09-04 11:06 | EXP.PAIN.SOA ---
[facility] Pain Management SOAP Note Subjective:: Patient is a pleasant 52-year-old female who presents today for medication refill and follow-up. We are currently treating the patient for degenerative disc disease of lumbar spine multilevels with lumbar radiculopathy symptoms. Today she rates her pain a 4 out of 10. Patient denies any new trauma or injury. Patient denies any change to location or type of pain she experiences. Patient states the pain continues to be in her low back with radiating symptoms down to her lower extremities. Patient does describe this as a aching, throbbing sensation that is worse with increased activity. At our last visit the patient was having some cardiac issues and was scheduled to have a pacemaker placed. Today the patient states she did have that put in and feels much better with less fatigue and increased energy. She is currently managed with tramadol 50 mg twice daily. Patient denies any side effects from this medication. She states this medication does help take the edge off of her pain symptoms. She is requesting a refill at today's visit. At her last visit we did discuss that she may be a beneficial candidate for a spinal cord stimulator implant however we were waiting for her cardiac related issues to be taken care of, she is still interested in this option. Patient did also have a brain mass found and is seeing in September. her Husam is [id number]. It has been reviewed and appropriate. Review of Systems: General: No recent weight changes, no fever, no sleep disturbances Respiratory: No cough, no shortness of air, no recurring pulmonary infections Cardiovascular/peripheral vascular: No chest pain, no palpitations, no edema, no shortness of breath Gastrointestinal: No new onset incontinence, normal bowel movements reported Genitourinary: No new onset incontinence Musculoskeletal: Low back pain, bilateral leg pain Psychiatric: [Normal mood/affect] Neurological: [Denies weakness in extremities], [denies balance issues] Objective:: Physical Exam: General: Alert and oriented x3, no acute distress, pleasant and cooperative Lungs: Respirations even and unlabored, symmetrical chest expansion Eyes: PERRL Musculoskeletal: Flexion and extension of lumbar [spine] somewhat guarded secondary to pain, [antalgic gait noted] Neurological: Speech clear, no gross sensory deficit Assessment:: Degenerative disc disease of lumbar spine multilevels with lumbar radiculopathy symptoms Plan:: Patient continues to experience significant pain in her low back that radiates into her lower extremities. Patient did have limited range of motion of her lumbar spine during today's visit. I will refill the patient's tramadol 50 mg twice a day and provide a 1 month supply of this medication. I have discussed and reviewed the risk and benefits of the spinal cord stimulator trial. Patient would like to proceed forward with this plan of care and is requesting the MRI compatible spinal cord stimulator when and if she proceeds forward with the actual implant. 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 We will plan to submit to insurance for the spinal cord stimulator trial and contact the patient once we have approval. Patient will follow up in 1 month for reevaluation of symptoms and medication refill. Patient has been advised of risks of oversedation with the prescribed medication. Narcan has been offered to the patient in the event of oversedation. Patient has been advised that a family member should also be educated regarding administration of Narcan. Patient has been instructed to contact the clinic with any concerns before the next appointment. Dr. Banerjee has reviewed this note and agrees with this plan of care. This note was dictated using voice recognition software and make contain errors or omissions. [facility] Medical History (Reviewed 07/22/22 @ 22:02 by Paresh Lozano
[2022-09-04 11:20] VITALS: BP 135/82; PULSE 81; RESP 18; O2SAT 95; BMI 46.6
== END | disposition home or self-care (01) ==
PROVIDERS: PCP Internal Medicine; Visit Provider Nurse Practitioner Family
DX: M51.16 Intervertebral disc disorders with radiculopathy, lumbar region (principal); Z72.0 Tobacco use
CPT/HCPCS: 99212; G0463

== ENCOUNTER → 2022-09-29 12:57 | Outpatient (POV) | payer BC, SELFPAY ==
[2022-09-29 13:15] VITALS: BP 147/84; PULSE 79; RESP 18; O2SAT 99; BMI 46.2
--- NOTE | 2022-09-29 15:02 | EXP.PAIN.SOA ---
[facility] Pain Management SOAP Note Subjective:: Patient is a pleasant 52-year-old female who presents today for medication refill and follow-up. We are currently treating the patient for degenerative disc disease of lumbar spine multilevels with lumbar radiculopathy symptoms. Today she rates her pain a 6 out of 10. Patient denies any new trauma or injury. Patient denies any change location or type of pain she experiences. Patient states her pain is all in her low back with radiating symptoms into her bilateral lower extremities. Patient does describe this as a aching, throbbing sensation that is worse with increased activity. Patient does have a pacemaker in place and denies any additional cardiac issues. Patient states that she did just have her psychiatric evaluation done this morning in order to proceed forward with the spinal cord stimulator trial. Patient is currently managed with tramadol 50 mg twice a day. Patient denies any side effects from this medication. She states this medication does help take the edge off of her pain symptoms. She is requesting a refill at today's visit. Her Husam is [id number]. It has been reviewed and appropriate. Patient did previously have a brain mass found and was being seen at this month. Review of Systems: General: No recent weight changes, no fever, no sleep disturbances Respiratory: No cough, no shortness of air, no recurring pulmonary infections Cardiovascular/peripheral vascular: No chest pain, no palpitations, no edema, no shortness of breath Gastrointestinal: No new onset incontinence, normal bowel movements reported Genitourinary: No new onset incontinence Musculoskeletal: Low back pain Psychiatric: [Normal mood/affect] Neurological: [Denies weakness in extremities], [denies balance issues] Objective:: Physical Exam: General: Alert and oriented x3, no acute distress, pleasant and cooperative Lungs: Respirations even and unlabored, symmetrical chest expansion Eyes: PERRL Musculoskeletal: Flexion and extension of lumbar [spine] somewhat guarded secondary to pain, [antalgic gait noted] Neurological: Speech clear, no gross sensory deficit Assessment:: Degenerative disc disease of lumbar spine multilevels with lumbar radiculopathy symptoms Plan:: Patient continues to experience significant pain in her low back with radiating symptoms into her lower extremities. Patient did complete her psychiatric evaluation this morning however we have not received the report at this time. We will plan on proceeding forward with the spinal cord stimulator trial if the patient is deemed an appropriate candidate. I will refill the patient's tramadol 50 mg twice a day and provide a 1 month supply of this medication. Patient will return to clinic in 1 month for reevaluation of symptoms, medication refill and follow-up. Patient has been instructed to contact the clinic with any concerns before the next appointment. Dr. Banerjee has reviewed this note and agrees with this plan of care. This note was dictated using voice recognition software and make contain errors or omissions. [facility] Disclaimer: The information contained in this section may have been updated after the patient was seen, as this information can be updated by other users. Medical History Anxiety Asthma Congestive heart failure Depression Dizziness Surgical History History of hysterectomy History of knee replacement History of left hip replacement History of right hip replacement History of spinal fusion Family History Other Family history of hyperlipidemia Family history of hypertension Family history of myocardial infarction No significant family history Social History Smoking Status: Current every day smoker tobacco type: cigarettes pa
== END | disposition home or self-care (01) ==
PROVIDERS: PCP Internal Medicine; Visit Provider Nurse Practitioner Family
DX: M51.16 Intervertebral disc disorders with radiculopathy, lumbar region (principal); F17.200 Nicotine dependence, unspecified, uncomplicated; Z79.899 Other long term (current) drug therapy
CPT/HCPCS: 99212; G0463

== ENCOUNTER → 2022-10-21 14:06 | Outpatient (CLI) | payer BC, SELFPAY ==
[2022-10-21 15:07] LABS: Basophils # 0.1 K/mm3 (0-0.2); Basophils % 0.8 % (0.1-2.0); Eosinophils # 0.1 K/mm3 (0.0-0.4); Eosinophils % 0.5 % (0.1-12.0); Hematocrit 40.7 % (37.0-47.0); Hemoglobin 12.9 g/dL (12.2-16.2); Lymphocytes # 2.5 K/mm3 (0.7-4.5); Lymphocytes % 17.5 % (10-50); Mean Corpuscular HGB Conc 31.8 g/dL (31.8-35.4); Mean Corpuscular Hemoglobin 31.1 pg (27.0-31.2); Mean Corpuscular Volume 97.9 fl (81-99); Mean Platelet Volume 8.3 fl (7.4-10.4); Monocytes # 0.5 K/mm3 (0.1-1.0); Monocytes % 3.7 % (1.7-9.3); Neutrophils # 10.9 K/mm3 (1.8-7.8); Neutrophils % 77.5 % (37.0-80.0); Platelet Count 415 K/mm3 (142-424); Red Blood Count 4.16 M/mm3 (4.20-5.40); Red Cell Distribution Width 15.4 % (11.5-17.5); White Blood Count 14.1 K/mm3 (4.8-10.8)
[2022-10-21 19:47] LABS: Anion Gap 13.9 mEq/L (5-15); Blood Urea Nitrogen 19 mg/dl (7-17); Calcium 9.2 mg/dl (8.4-10.2); Carbon Dioxide 28 mmol/L (22.0-30.0); Chloride 102 mmol/L (98-107); Estimated Glomerular Filt Rate 58 ml/min (>60); GFR (African American) 70 ML/MIN (>60); Glucose 99 mg/dl (74-100); Potassium 3.9 mmoL/L (3.5-5.1); Sodium 140 mmol/L (136-145)
== END ==
PROVIDERS: PCP Internal Medicine; Visit Provider Anesthesiology
DX: M51.36 Other intervertebral disc degeneration, lumbar region (principal)
CPT/HCPCS: 36415; 80048; 85025

== ENCOUNTER 2022-10-24 06:53 | Day surgery (SDC) | payer BC, SELFPAY ==
[2022-10-21 13:51] VITALS: BMI 46.2
[2022-10-24] VITALS (7 sets, daily range): BP systolic 136–157; BP diastolic 75–114; PULSE 80–102; RESP 16–18; TEMP 36.2–37.2; O2SAT 99–100
[2022-10-24 07:37] LABS: POC Glucose,Bedside 172 (70-110)
--- NOTE | 2022-10-24 08:29 | EXP.ANES.CKL ---
[facility] Disclaimer: The information contained in this section may have been updated after the patient was seen, as this information can be updated by other users. Medical History Anxiety Asthma Congestive heart failure Depression Diabetes mellitus, type 2 Dizziness Hx of cardiac pacemaker Surgical History History of hysterectomy History of knee replacement History of left hip replacement History of right hip replacement History of spinal fusion Family History Other Family history of diabetes mellitus type II Family history of hyperlipidemia Family history of hypertension Family history of myocardial infarction Social History Smoking Status: Current every day smoker tobacco type: cigarettes packs per day: 1 years smoked: 30 alcohol intake: never substance use type: denies use current occupational status: disabled Travel in the last 8 weeks: None household members: none housing: house lives independently: Yes marital status: single education level: high school current occupational exposures/hazards: No caffeine: Yes special lai needs: No agree to transfusion: No do you feel safe at home: Yes victim of physical abuse: No victim of emotional abuse: No victim of sexual abuse: No would you like helpful sources: No [facility] Anesthesia Checklist Patient Identification Patient Identification: Arm Band Structural Data Admitted From: Home Planned Operative Procedure/s: Neurostimulator Trial Lead Placement under Fluoroscopy Consent for Planned Operative Procedure(s) Verified: Yes Verified Documents: Surgical Consent and History and Physical NPO Status Verified Time NPO: 00:00 Additional verifications Anesthesia Reactions: No Hx Blood Transfusions: No Blood Transfusion Reaction: No Airway Assessment C-Spine Mobility Assessed: Yes TMJ Mobility Assessed: Yes Dentition: Edentulous Neurological Assessment Level of Consciousness: Awake and Alert Anesthesia Plan Anesthesia Risk discussed: Yes Anesthesia Plan: Verified ASA Class: III Anesthesia Type: MAC
--- NOTE | 2022-10-24 10:05 | EXP.OP.NOTE ---
Date of procedure: 10/24/22 Pre-op Diagnosis:: Degenerative disc disease of lumbar spine with lumbar radiculopathy symptoms Post-op Diagnosis:: Same Procedure performed:: Spinal cord stimulator trial with epidural lead placement x2 Surgeon:: Marck Banerjee MD SPINDLE FRAME CARVER:: Harsh Lara Anesthesia: MAC Estimated blood loss (mL): 1 Clinical Note:: Patient is a pleasant 52-year-old white female who we are treating for low back pain with lumbar radiculopathy symptoms. She has failed all previous conservative treatments including injections, oral medications, physical therapy and she is not a surgical candidate. She presents for spinal cord stimulator trial today. She has had a successful psychological evaluation. Operative findings:: None Operative note:: Informed consent was obtained risk and benefits of the procedure were explained to the patient. Patient was taken the procedure room. She was prepped and draped in sterile fashion. C-arm fluoroscopy was used to view the lumbar spine. The skin and subtenons tissues were anesthetized with lidocaine. Placed a 17-gauge epidural needle and advanced into the L1-L2 interspace. After confirmation needle placement in the epidural space stimulating lead was inserted and advanced very easily to the T7-T8-T9 vertebral body. A second needle was inserted and advanced again into the L1-L2 interspace. Again after confirmation of needle placement in the epidural space a second stimulating lead was inserted and advanced very easily to the T7-T8-T9 vertebral body. Leads were checked in AP and lateral views. The needles and stylets were removed. The leads were secured in place. The patient was taken recovery in stable condition. Patient tolerated the procedure well with no complications. Patient was programmed by the [employer] human resources representative with good stimulation in all areas of pain. Patient was discharged home neurologic intact with good relief of pain symptoms. Plan and disposition: Follow-up with this patient in 1 week for lead pull. We will continue to make adjustments as needed every day to optimize success of the trial. Condition: stable Disposition: PACU Complications:: None
== END 2022-10-24 11:00 | disposition home or self-care (01) ==
PROVIDERS: PCP Internal Medicine; Visit Provider Anesthesiology
PROC: (CPT 63650; principal; 2022-10-24 08:30)
DX: M51.16 Intervertebral disc disorders with radiculopathy, lumbar region (principal); F17.210 Nicotine dependence, cigarettes, uncomplicated; Z79.899 Other long term (current) drug therapy; E11.9 Type 2 diabetes mellitus without complications
CPT/HCPCS: 63650 ×2; 82962; 96374; C1778; J3370

== ENCOUNTER → 2022-10-31 09:03 | Outpatient (POV) | payer BC, SELFPAY ==
--- NOTE | 2022-10-31 09:33 | EXP.PAIN.SOA ---
[facility] Pain Management SOAP Note Subjective:: Patient is a pleasant 52-year-old female who presents today for follow-up of Sp[employer] spinal cord stimulator trial on 10/24/2022. 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 Today she rates her pain a 0 out of 10. Patient states that she has had at least 90% improvement following this procedure. Patient states she has been able to increase her activity with decreased pain symptoms. Patient has had better functionality and feels like she has gotten her life back this last week. Patient states she has been able to do more around her house such as cooking and cleaning with decreased pain symptoms. Patient is currently managed on tramadol 50 mg twice a day. Patient denies any side effects from this medication. Patient has tried gabapentin in the past however she was not able to tolerate it. Patient is also prescribed compounding cream. She states this medication does help take the edge off of her pain symptoms. Patient does state that she has experienced a small rash around the area of the tape. Patient states she does have a skin sensitivity to tape that is been going on long before her spinal cord stimulator trial. Patient would like to proceed forward with the implants. Her Husam is [phone]. Its been reviewed and appropriate. Review of Systems: General: No recent weight changes, no fever, no sleep disturbances Respiratory: No cough, no shortness of air, no recurring pulmonary infections Cardiovascular/peripheral vascular: No chest pain, no palpitations, no edema, no shortness of breath Gastrointestinal: No new onset incontinence, normal bowel movements reported Genitourinary: No new onset incontinence Musculoskeletal: Low back pain, bilateral leg pain Psychiatric: [Normal mood/affect] Neurological: [Denies weakness in extremities], [denies balance issues] Objective:: Physical Exam: General: Alert and oriented x3, no acute distress, pleasant and cooperative Lungs: Respirations even and unlabored, symmetrical chest expansion Eyes: PERRL Musculoskeletal: Flexion and extension of lumbar [spine] somewhat guarded secondary to pain, [antalgic gait noted] Neurological: Speech clear, no gross sensory deficit ORT score updated with low risk of 1 Assessment:: Degenerative disc disease of lumbar spine with lumbar radiculopathy symptoms Plan:: Patient has had significant improvement following her spinal cord stimulator trial. Patient rates at least 90% improvement and states her pain today is a 0 out of 10. Patient has tried and failed conservative therapies in the past such as oral medications, injections, topicals, heat and ice, physical therapy and at home exercising and stretching for longer than 6 weeks. Patient did have a psychiatric evaluation that was deemed appropriate for this device. During her trial the both epidural needles was advanced in the L1-L2 interspace with the leads being placed at T7?T8-T9. we will submit to insurance for the spinal cord stimulator implant and contact the patient once we have approval. Patient has been instructed to contact the clinic with any concerns before the next appointment. Dr. Banerjee has reviewed this note and agrees with this plan of care. This note was dictated using voice recognition software and make contain errors or omissions. [facility] Disclaimer: The information contained in this section may have been updated after the patient was seen, as this information can be updated by other users. Medical History Anxiety Asthma Congestive heart failure Depression Diabetes mellitus, type 2 Dizziness Hx of cardiac pacemaker Surgical History History of hysterectomy History of knee replacement History of left hip replacement History of right hip replacement History of spinal fusi
[2022-10-31 09:52] VITALS: BP 122/84; PULSE 92; RESP 18; O2SAT 97; BMI 46.2
== END ==
PROVIDERS: PCP Internal Medicine; Visit Provider Nurse Practitioner Family
DX: M51.16 Intervertebral disc disorders with radiculopathy, lumbar region (principal); F17.210 Nicotine dependence, cigarettes, uncomplicated
CPT/HCPCS: 99213; G0463

== ENCOUNTER 2022-11-11 11:24 | Emergency (ER) | payer BC, SELFPAY ==
--- NOTE | 2022-11-11 11:41 | EXP.UTC ---
Discharge Plan Disposition Patient Disposition: Home, Self-Care Condition: Good Prescriptions Prescriptions: New cyclobenzaprine 10 mg Tablet 10 mg PO BID PRN (Reason: Muscle Spasm) Qty: 20 0RF methylprednisolone 4 mg Tablets,Dose Pack 4 mg PO DIRECTED Qty: 21 0RF No Action albuterol sulfate [ProAir HFA] 90 mcg/actuation HFA aerosol inhaler 2 inh INHALATION DIRECTED cyanocobalamin (vitamin B-12) 1,000 mcg/mL solution 1,000 mcg IM MONTHLY tramadol 50 MG tablet 50 mg PO BID Qty: 60 0RF spironolactone 25 MG tablet 25 mg PO DAILY atorvastatin 80 MG tablet 80 mg PO HS carvedilol 6.25 MG tablet 12.5 mg PO BID venlafaxine 75 MG capsule,extended release 24hr 225 mg PO DAILY hydroxyzine pamoate 50 MG capsule 50 mg PO TID PRN (Reason: Anxiety) lamotrigine 25 MG tablet 25 mg PO TID zonisamide 100 MG capsule 100 mg PO TID ropinirole 0.25 MG tablet 2 mg PO HS pantoprazole 40 MG tablet,delayed release (DR/EC) 40 mg PO BID promethazine 25 MG tablet 25 mg PO Q6H PRN (Reason: Nausea And Vomiting) ergocalciferol (vitamin D2) 50,000 UNIT capsule 1 tab PO WEEKLY aripiprazole 10 MG tablet 10 mg PO DAILY levothyroxine 88 MCG capsule 88 mcg PO DAILY twapvbjfps-adffdnvl-lawmlttdcb 160-9-4.8 mcg/actuation HFA aerosol inhaler 2 inh INHALATION DAILY methocarbamol 500 MG tablet 500 mg PO Q8HP PRN (Reason: Muscle Spasm) Qty: 30 0RF baclofen 10 mg Tablet 10 mg PO QID mirtazapine [Remeron] 15 mg Tablet 15 mg PO HS Referrals Follow up/Referrals: Ronaldo Kong [Primary Care Provider] - See instructions Activity Restrictions/Add. Instructions Additional Instructions/Restrictions: Go home and rest. It would be best if you rested tomorrow too. No heavy lifting. No twisting. Take the oral medications as directed. The muscle relaxer (cyclobenzaprine--Flexeril) will make you drowsy, so don't drive or operate heavy machinery after taking it. Don't take the cyclobenzaprine if you take other muscle relaxers. This would make you too drowsy. Don't start the oral steroids (medrol dose pack) until tomorrow, since you had the shots in here today. Follow up with your regular doctor. GO TO THE ER FOR ANY WORSENING SYMPTOMS OR CONCERN, ESPECIALLY BOWEL OR BLADDER ISSUES, SADDLE AREA NUMBNESS, FEVER, ETC Clinical Impressions Clinical Impression: Low back pain Instructions Patient Instructions: DI for Low Back Pain Discharge ED Provider: Paresh Lozano [facility] General Stated complaint: [id number], lower back pain Time Seen by Provider: 11/11/22 11:41 History of Present Illness Provider Complaint: She states that she fell about 4 days ago. She came down on her bottom. Since then she has had low back pain. She has a history of low back pain also. She states the pain radiates down her left leg at times. She denies any urinary symptoms. She denies any bowel or bladder issues. Related Data Home Medications Medication Instructions Recorded Confirmed aripiprazole 10 mg tablet 10 mg PO DAILY Depression 05/25/21 10/31/22 atorvastatin 80 mg tablet 80 mg PO HS Cholesterol 05/25/21 10/31/22 carvedilol 6.25 mg tablet 12.5 mg PO BID blood pressure 05/25/21 10/31/22 ergocalciferol (vitamin D2) 1,250 1 tab PO WEEKLY Supplement 05/25/21 10/31/22 mcg (50,000 unit) capsule hydroxyzine pamoate 50 mg capsule 50 mg PO TID PRN Anxiety 05/25/21 10/31/22 lamotrigine 25 mg tablet 25 mg PO TID seizures 05/25/21 10/31/22 levothyroxine 88 mcg capsule 88 mcg PO DAILY . 05/25/21 10/31/22 pantoprazole 40 mg tablet,delayed 40 mg PO BID GERD 05/25/21 10/31/22 release promethazine 25 mg tablet 25 mg PO Q6H PRN Nausea And 05/25/21 10/31/22 Vomiting ropinirole 0.25 mg tablet 2 mg PO HS RLS 05/25/21 10/31/22 venlafaxine 75 mg capsule,extended 225 mg PO DAILY Depression 05/25/21 10/31/22 release 24 hr
--- NOTE | 2022-11-11 12:09 | XR_ITS ---
FINAL REPORT CLINICAL HISTORY: pain FINDINGS: AP and lateral views were obtained. There is no acute fracture. There is no malalignment. The disc spaces are maintained. Minimal degenerative spurring. IMPRESSION: No acute process. Reviewed, Interpreted and Dictated by Kristi Tyler MD Transcribed by Pernell Dueñas Authenticated and . [facility]
[2022-11-11 12:10] VITALS: BP 122/91; PULSE 73; RESP 20; TEMP 36.9; O2SAT 96; BMI 45.4
[2022-11-11 13:37] VITALS: BP 122/91; PULSE 73; RESP 20; TEMP 36.9; O2SAT 96
== END 2022-11-11 13:35 | disposition home or self-care (01) ==
PROVIDERS: Emergency Provider Nurse Practitioner Family; PCP Internal Medicine
DX: M54.50 Low back pain, unspecified (principal); M54.10 Radiculopathy, site unspecified; W19.XXXA Unspecified fall, initial encounter; Y92.009 Unspecified place in unspecified non-institutional (private) residence as the place of occurrence of the external cause
CPT/HCPCS: 72100; 96372; 99212; 99213; G0463

== ENCOUNTER → 2022-11-19 08:46 | Outpatient (POV) | payer BC, SELFPAY ==
--- NOTE | 2022-11-19 08:51 | EXP.PAIN.SOA ---
[facility] Pain Management SOAP Note Subjective:: Patient is a pleasant 52-year-old female who presents today for follow-up. We are currently treating the patient for degenerative disc disease of lumbar spine with lumbar radiculopathy symptoms.? Today she rates her pain a 8 out of 10.? Patient denies any new trauma or injury. Patient denies any change location or type of pain she experiences. Patient states her pain is a constant aching, throbbing sensation that is worse with increased activity. Patient states she is unable to tolerate prolonged sitting, standing, walking due to the pain. Patient also states she has not been able to get a good night sleep and is constantly tossing and turning due to the pain. Patient states it does affect her ability to perform activities of daily living such as as cooking and cleaning. Patient did just recently have a spinal cord stimulator trial with 90% improvement however her insurance did deny the spinal cord stimulator implant. Patient was able to increase her activity with decreased pain and better functionality symptoms using this device.? Patient is currently managed on tramadol 50 mg twice a day and baclofen 10 mg4 times a day as needed.? Patient denies any side effects from these medications.? Patient states she does not get significant relief with these medications. patient has tried gabapentin in the past however she was not able to tolerate it.? Patient is also prescribed compounding cream.? Patient does see [facility] for her cardiac related issues and Dr. Solis in [place] for her neurologist. Patient has tried and failed conservative therapy such as oral medications, topicals, heat and ice, injection therapy, physical therapy, at home exercising and stretching for longer than 6 weeks. Her Husam is [phone].? Its been reviewed and appropriate. Review of Systems: General: No recent weight changes, no fever, no sleep disturbances Respiratory: No cough, no shortness of air, no recurring pulmonary infections Cardiovascular/peripheral vascular: No chest pain, no palpitations,? no edema, no shortness of breath Gastrointestinal: No new onset incontinence, normal bowel movements reported Genitourinary: No new onset incontinence Musculoskeletal: Low back pain, bilateral leg pain Psychiatric: [Normal mood/affect] Neurological: [Denies weakness in extremities], [denies balance issues] Objective:: Physical Exam: General: Alert and oriented x3, no acute distress, pleasant and cooperative Lungs: Respirations even and unlabored, symmetrical chest expansion Eyes: PERRL Musculoskeletal: Flexion and extension of lumbar [spine] somewhat guarded secondary to pain, [antalgic gait noted] Neurological: Speech clear, no gross sensory deficit Assessment:: Degenerative disc disease of lumbar spine with lumbar radiculopathy symptoms Plan:: Patient is experiencing significant pain in her low back and bilateral lower extremities. Patient did have limited range of motion of her lumbar spine during today's visit. Patient has tried and failed conservative therapy such as oral medications, topicals, heat and ice, injection therapy, physical therapy, at home stretching and exercise for longer than 6 weeks. I have discussed with the patient that she may benefit from a pain pump trial. Patient has already been deemed an appropriate candidate for a implant device. Risk and benefits were discussed with the patient. She would like to proceed forward with this plan of care. I will stop the patient's baclofen and change it to tizanidine 4 mg 3 times daily and provide a 1 month supply of this medication. We will also send in a refill of her tramadol 50 mg and make it 3 times daily. We will submit to insurance for the intrathecal pain pump trial and contact the patient once we have approval. Patient has been instructed to contact the clinic with any concerns before the next appointment. Dr. Banerjee has reviewed this note and agrees with this plan of care
[2022-11-19 09:32] VITALS: BP 124/51; PULSE 75; RESP 18; O2SAT 98; BMI 45.4
== END | disposition home or self-care (01) ==
PROVIDERS: PCP Internal Medicine; Visit Provider Nurse Practitioner Family
DX: M51.16 Intervertebral disc disorders with radiculopathy, lumbar region (principal)
CPT/HCPCS: 99212; G0463

== ENCOUNTER 2022-12-12 10:35 | Day surgery (SDC) | payer BC, SELFPAY ==
[2022-12-12] VITALS (7 sets, daily range): BP systolic 116–181; BP diastolic 76–99; PULSE 74–89; RESP 18–20; O2SAT 94–100; BMI 44.6
--- NOTE | 2022-12-12 14:04 | PC.NURSE ---
1345-pt returned to bay accompanied by nursing staff. VSS, no c/o pain. lumbar dressing c/d/i. no needs or concerns at this time. 1355-MD at bedside. 1400-VSS, no c/o pain. lumbar dressing c/d/i. c/o itching but denies need for prn benadry. no needs or concerns at this time.
--- NOTE | 2022-12-12 14:15 | PC.NURSE ---
1412-pt ambulated to nurses station. no c/o pain. gait steady.
--- NOTE | 2022-12-12 14:40 | PC.NURSE ---
1415-pt resting in chair, VSS, dressing C/D/I. no needs or concerns at this time
--- NOTE | 2022-12-12 15:50 | P.PCN_ITS ---
Procedure Date: 12/12/22 Time: 15:50 Anesthesiologist:: Marck Banerjee MD Complications:: None Pre-procedure Diagnosis:: Degenerative disc disease of lumbar spine with lumbar radiculopathy symptoms Post-procedure Diagnosis:: Same Indications for Procedure:: This patient is a pleasant 52-year-old white female who we are treating for low back pain with lumbar radiculopathy symptoms. She has failed all previous conservative therapy including injections, oral medications, physical therapy and she is not a candidate for any further surgery. She did well with the spinal cord stimulator trial however this was denied by her insurance company. She has had a successful psychological valuation. She presents for intrathecal pump trial today. Procedure Details:: Pain pump trial Informed consent was obtained and the risk and benefits of the procedure was explained to the patient. The patient was taken to the procedure room and placed prone on the procedure table. Patient was prepped and draped in sterile fashion. C-arm fluoroscopy was used to view the lumbar spine. The skin and subcutaneous tissues were anesthetized using lidocaine. I placed a 18-gauge spinal needle into the L4-5 interspace and advanced until clear CSF was obtain ed. After this intrathecal catheter was inserted and advanced very easily to the L1 vertebral body. The needle was withdrawn. We were able to freely withdraw clear CSF through the catheter. We then injected intrathecal opioid single shot bolus of 25 mcg followed by saline and followed by the previous CSF that was withdrawn. The needle and catheter were then removed and a Band-Aid was placed. Patient tolerated the procedure well with no complications. We reevaluated the patient after 30 minutes to 1 hour. She was also reassessed by physical therapy. Patient was 90 to 100% better. She was much more functional. She was able to stand longer and walk better. Bowel indications this seems to be a successful intrathecal pump trial. Plan and Disposition:: We will follow-up with this patient in 1 week. If this truly is a successful intrathecal pump trial. We will plan on permanent placement with intrathecal morphine 1 mg per ml to start at 0.1 mg/day. Catheter tip will be at the T8 vertebral body.
== END 2022-12-12 14:41 | disposition home or self-care (01) ==
LOC: SC.PAINP 10:36
PROVIDERS: PCP Internal Medicine; Visit Provider Anesthesiology
DX: M51.16 Intervertebral disc disorders with radiculopathy, lumbar region (principal); F17.210 Nicotine dependence, cigarettes, uncomplicated
CPT/HCPCS: 62323; 96365

== ENCOUNTER → 2022-12-24 11:59 | Outpatient (CLI) | payer BC, SELFPAY ==
[2022-12-24 12:53] LABS: Basophils # 0.1 K/mm3 (0-0.2); Basophils % 0.9 % (0.1-2.0); Eosinophils # 0.1 K/mm3 (0.0-0.4); Eosinophils % 0.9 % (0.1-12.0); Hematocrit 37.1 % (37.0-47.0); Hemoglobin 12.5 g/dL (12.2-16.2); Lymphocytes # 2.3 K/mm3 (0.7-4.5); Lymphocytes % 18.5 % (10-50); Mean Corpuscular HGB Conc 33.7 g/dL (31.8-35.4); Mean Corpuscular Hemoglobin 31.2 pg (27.0-31.2); Mean Corpuscular Volume 92.5 fl (81-99); Mean Platelet Volume 8.6 fl (7.4-10.4); Monocytes # 0.5 K/mm3 (0.1-1.0); Monocytes % 4.2 % (1.7-9.3); Neutrophils # 9.5 K/mm3 (1.8-7.8); Neutrophils % 75.5 % (37.0-80.0); Platelet Count 363 K/mm3 (142-424); Red Blood Count 4.02 M/mm3 (4.20-5.40); Red Cell Distribution Width 14.9 % (11.5-17.5); White Blood Count 12.6 K/mm3 (4.8-10.8)
[2022-12-24 13:38] LABS: Amphetamine/Metha Screen,Urine Negative ng/ml (<1000); Barbiturates Screen,Urine Negative ng/ml (<200)
[2022-12-24 13:39] LABS: Benzodiazepines Screen,Urine Negative ng/ml (<200)
[2022-12-24 13:40] LABS: Cannabinoid Screen,Urine Negative ng/ml (<50)
[2022-12-24 13:41] LABS: Cocaine Screen,Urine Negative ng/ml (<300)
[2022-12-24 13:42] LABS: Methadone Screen,Urine Negative ng/ml (<300)
[2022-12-24 13:43] LABS: Opiate Screen,Urine Negative ng/ml (<300); Phencyclidine Screen,Urine Negative ng/ml (<25)
[2022-12-24 13:57] LABS: Chloride 98 mmol/L (98-107); Sodium 141 mmol/L (136-145)
[2022-12-24 14:01] LABS: Anion Gap 11.6 mEq/L (5-15); Blood Urea Nitrogen 12 mg/dl (7-17); Carbon Dioxide 34 mmol/L (22.0-30.0); Estimated Glomerular Filt Rate 66 ml/min (>60); GFR (African American) 80 ML/MIN (>60); Glucose 133 mg/dl (74-100)
[2022-12-24 14:13] LABS: Potassium 2.6 mmoL/L (3.5-5.1)
--- NOTE | 2022-12-30 14:42 | PC.NURSE ---
12/24/[address] ROONEY OF [facility] AND RECEIVED ORDER TO REFER PT TO HER FAMILY DRKyle DEAL AWARE AND UNDERSTANDS INSTRUCTIONS.
== END ==
PROVIDERS: PCP Internal Medicine; Visit Provider Anesthesiology
DX: Z01.812 Encounter for preprocedural laboratory examination (principal); M51.36 Other intervertebral disc degeneration, lumbar region
CPT/HCPCS: 36415; 80048; 80305; 85025

== ENCOUNTER → 2023-02-11 12:00 | Outpatient (CLI) | payer BC, SELFPAY ==
[2023-02-11 13:13] LABS: Basophils # 0.1 K/mm3 (0-0.2); Basophils % 0.5 % (0.1-2.0); Eosinophils # 0.2 K/mm3 (0.0-0.4); Eosinophils % 2.5 % (0.1-12.0); Hematocrit 37.4 % (37.0-47.0); Hemoglobin 12.2 g/dL (12.2-16.2); Lymphocytes # 2.6 K/mm3 (0.7-4.5); Lymphocytes % 26.4 % (10-50); Mean Corpuscular HGB Conc 32.7 g/dL (31.8-35.4); Mean Corpuscular Hemoglobin 30.9 pg (27.0-31.2); Mean Corpuscular Volume 94.4 fl (81-99); Mean Platelet Volume 8.5 fl (7.4-10.4); Monocytes # 0.5 K/mm3 (0.1-1.0); Monocytes % 4.8 % (1.7-9.3); Neutrophils # 6.4 K/mm3 (1.8-7.8); Neutrophils % 65.9 % (37.0-80.0); Platelet Count 340 K/mm3 (142-424); Red Blood Count 3.96 M/mm3 (4.20-5.40); Red Cell Distribution Width 14.9 % (11.5-17.5); White Blood Count 9.7 K/mm3 (4.8-10.8)
[2023-02-11 13:32] LABS: Barbiturates Screen,Urine Negative ng/ml (<200); Benzodiazepines Screen,Urine Negative ng/ml (<200)
[2023-02-11 13:33] LABS: Amphetamine/Metha Screen,Urine Negative ng/ml (<1000)
[2023-02-11 13:34] LABS: Cannabinoid Screen,Urine Negative ng/ml (<50); Methadone Screen,Urine Negative ng/ml (<300)
[2023-02-11 13:35] LABS: Anion Gap 14.3 mEq/L (5-15); Blood Urea Nitrogen 16 mg/dl (7-17); Carbon Dioxide 28 mmol/L (22.0-30.0); Chloride 104 mmol/L (98-107); Cocaine Screen,Urine Negative ng/ml (<300); Estimated Glomerular Filt Rate 52 ml/min (>60); GFR (African American) 63 ML/MIN (>60); Glucose 107 mg/dl (74-100); Opiate Screen,Urine Negative ng/ml (<300); Potassium 4.3 mmoL/L (3.5-5.1); Sodium 142 mmol/L (136-145)
[2023-02-11 13:36] LABS: Phencyclidine Screen,Urine Negative ng/ml (<25)
== END ==
PROVIDERS: PCP Internal Medicine; Visit Provider Anesthesiology
DX: Z01.812 Encounter for preprocedural laboratory examination (principal); M51.36 Other intervertebral disc degeneration, lumbar region
CPT/HCPCS: 36415; 80048; 80305; 85025

== ENCOUNTER 2023-02-13 08:50 | Day surgery (SDC) | payer BC, SELFPAY ==
[2023-02-11 10:26] VITALS: BMI 43.4
[2023-02-13 09:08] VITALS: BP 190/107; PULSE 68; RESP 16; TEMP 36.7; O2SAT 93
[2023-02-13 09:14] LABS: POC Glucose,Bedside 130 (70-110)
--- NOTE | 2023-02-13 09:38 | EXP.OP.NOTE ---
Date of procedure: 02/13/23 Pre-op Diagnosis:: Degenerative disc disease of lumbar spine with lumbar radiculopathy symptoms Surgeon:: Marck Banerjee MD
--- NOTE | 2023-02-13 10:06 | EXP.ANES.CKL ---
[facility] Disclaimer: The information contained in this section may have been updated after the patient was seen, as this information can be updated by other users. Medical History Anxiety Asthma Congestive heart failure Depression Diabetes mellitus, type 2 Dizziness HLD (hyperlipidemia) HTN (hypertension) Hx of cardiac pacemaker Seizure Seizure disorder Sleep apnea Surgical History History of hysterectomy History of knee replacement History of left hip replacement History of right hip replacement History of spinal fusion Family History Other Family history of diabetes mellitus type II Family history of hyperlipidemia Family history of hypertension Family history of myocardial infarction Social History (Updated 02/13/23 @ 09:04 by Mahnaz Quigley RN) Smoking Status: Current every day smoker tobacco type: cigarettes packs per day: 1 years smoked: 30 alcohol intake: never substance use type: denies use current occupational status: disabled Travel in the last 8 weeks: None household members: none housing: house lives independently: Yes marital status: single education level: high school current occupational exposures/hazards: No caffeine: Yes special lai needs: No agree to transfusion: No do you feel safe at home: Yes victim of physical abuse: No victim of emotional abuse: No victim of sexual abuse: No would you like helpful sources: No [facility] Anesthesia Checklist Patient Identification Patient Identification: Arm Band Structural Data Admitted From: Home Planned Operative Procedure/s: Intrathecal Pain Pump Placement Consent for Planned Operative Procedure(s) Verified: Yes Verified Documents: Surgical Consent and History and Physical NPO Status Verified Time NPO: 00:00 Additional verifications Anesthesia Reactions: No Hx Blood Transfusions: No Blood Transfusion Reaction: No Airway Assessment C-Spine Mobility Assessed: Yes TMJ Mobility Assessed: Yes Dentition: Good Dentition (lower. Upper edentulous) Neurological Assessment Level of Consciousness: Awake and Alert Anesthesia Plan Anesthesia Risk discussed: Yes Anesthesia Plan: Verified ASA Class: III Anesthesia Type: MAC
[2023-02-13 10:40] VITALS: BP 165/80; PULSE 80; RESP 14; TEMP 37; O2SAT 96
[2023-02-13 10:50] VITALS: BP 139/90; PULSE 77; RESP 16; O2SAT 97
[2023-02-13 11:00] VITALS: BP 156/76; PULSE 76; RESP 19; O2SAT 99
[2023-02-13 11:10] VITALS: BP 169/84; PULSE 77; RESP 18; O2SAT 99
--- NOTE | 2023-02-13 12:15 | P.OP_ITS ---
Date of procedure: 02/13/23 Pre-op Diagnosis:: Degenerative disc disease of lumbar spine with lumbar radiculopathy symptoms Post-op Diagnosis:: Same Procedure performed:: Permanent placement intrathecal pain pump with tunnel of intrathecal catheter and pain pump generator Surgeon:: Marck Banerjee MD [employer]IDENT[employer] APPRAISER:: Harsh Lara Anesthesia: MAC Estimated blood loss (mL): 5 Clinical Note:: This patient is a pleasant 52-year-old white female who we are treating for low back pain with lumbar radicular symptoms. She has failed all previous conservative treatments including injections, oral medications, physical therapy and she is not a surgical candidate. She has had a successful psychological evaluation. She is also had a successful intrathecal pump trial. She presents for permanent placement of her intrathecal pain pump today. Operative findings:: None Operative note:: Informed consent was obtained the risk and benefits of the procedure explained to the patient. Patient was taken the operating room placed prone on the procedure table. She was prepped and draped in sterile fashion. C-arm fluoroscopy was used to view the right flank. Notrees between the 12th rib and iliac crest we made an incision and created the pocket for the pump. We placed 3 Ray-Anthony's in the pocket for hemostasis. We then used C-arm fluoroscopy to look at the lumbar spine. The skin and subcutaneous tissues adjacent to the L4- 5 and L5-S1 interspace were anesthetized using lidocaine. I made an incision and dissected down to the lumbar paraspinous fascia. A 17-gauge spinal needle was inserted and advanced into the L4-L5 interspace. After confirmation of needle placement in the intrathecal space, catheter was placed and advanced very easily to the T8 vertebral body. AP and lateral views were used to check catheter position in the posterior aspect of the intrathecal space. The stylette and the needle were withdrawn. The catheter was secured to the fascia with an anchor device and 2-0 Prolene. I tunneled the catheter from the back to the pump pocket and attached catheter to the pump. Previous to this I did fill the pump with 20 mils of intrathecal morphine 1 mg per mill. The pump was placed in the pocket. We were able to freely withdraw clear CSF through the sideport. Both incisions were irrigated with antibiotic solution. The 3 Ray- Anthony's were removed from the pump pocket. Count was correct. Both incisions were then closed 2-0 Vicryl followed by 4-0 nylon. A wound VAC was placed over both incisions. The patient was placed in an abdominal binder and taken recovery in stable condition. Patient tolerated the procedure well with no complications. The pump was interrogated and started at 0.1 mg/day of intrathecal morphine. Patient was discharged home neurologic intact with good relief of pain symptoms. Plan and disposition: We will follow-up with this patient in 1 week for wound check and reprogram. We will follow-up in 2 to 3 weeks for suture removal. Condition: stable Disposition: PACU Complications:: None
== END 2023-02-13 11:20 | disposition home or self-care (01) ==
PROVIDERS: PCP Internal Medicine; Visit Provider Anesthesiology
PROC: (CPT 62350; principal; 2023-02-13 10:30)
DX: M51.16 Intervertebral disc disorders with radiculopathy, lumbar region (principal); F17.210 Nicotine dependence, cigarettes, uncomplicated; Z79.899 Other long term (current) drug therapy; E11.9 Type 2 diabetes mellitus without complications
CPT/HCPCS: 62350; 62362; 82962; 96374; C1755; C1772; J2704

== ENCOUNTER → 2023-02-20 11:31 | Outpatient (POV) | payer BC, SELFPAY ==
--- NOTE | 2023-02-20 11:53 | EXP.PAIN.SOA ---
[facility] Pain Management SOAP Note Subjective:: Patient is a pleasant 52-year-old female who presents today for follow-up of 1 week postop of intrathecal pain pump placement on 02/13/2023. 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 Today she rates her pain a 3 out of 10. She states she has had significant improvement following the addition of the intrathecal pain pump. Patient has previously been managed with tramadol 50 mg twice a day and baclofen 10 mg 4 times a day however she is no longer taking the tramadol. Patient states she is doing well with her baclofen and does not require any refills. Patient has been prescribed compounding cream that she is does state helps some. She is currently managed with intrathecal morphine 1 mg/mL with a daily dose of 0.1 mg/day. Patient denies any side effects from this medication. Her Husam is [id number]. Its been reviewed and appropriate. Review of Systems: General: No recent weight changes, no fever, no sleep disturbances Respiratory: No cough, no shortness of air, no recurring pulmonary infections Cardiovascular/peripheral vascular: No chest pain, no palpitations, no edema, no shortness of breath Gastrointestinal: No new onset incontinence, normal bowel movements reported Genitourinary: No new onset incontinence Musculoskeletal: Low back pain Psychiatric: [Normal mood/affect] Neurological: [Denies weakness in extremities], [denies balance issues] Objective:: Physical Exam: General: Alert and oriented x3, no acute distress, pleasant and cooperative Lungs: Respirations even and unlabored, symmetrical chest expansion Eyes: PERRL Musculoskeletal: Flexion and extension of lumbar [spine] somewhat guarded secondary to pain, [antalgic gait noted] Neurological: Speech clear, no gross sensory deficit Skin: Incision sites clean, dry, well approximated with sutures and chad intact, no erythema noted Assessment:: Degenerative disc disease of lumbar spine with lumbar radiculopathy symptoms Plan:: Patient is doing well following her intrathecal pain pump placement. Her incision sites are clean, dry, well approximated with no erythema noted and sutures and chad intact. I have counseled the patient to continue her postop restrictions and that at her next visit we will plan on removing the sutures and chad if indicated and applying skin glue and Steri-Strips. We will set her up on her PTM device during today's visit. Patient will return to clinic in 2 weeks for reevaluation of symptoms possible intrathecal adjustment and reprogram and follow-up. Patient has been instructed to contact the clinic with any concerns before the next appointment. Dr. Banerjee has reviewed this note and agrees with this plan of care. This note was dictated using voice recognition software and make contain errors or omissions. -- It Is medically necessary for this patient to continue to have their intrathecal pump refilled at regular intervals. This patient had an intrathecal pain pump implanted after meeting criteria of chronic intractable pain for greater than 3 months and failing conservative treatments. Patient has committed and been compliant to the treatment plan and all planned follow up care. Since implantation of the intrathecal pain pump, the patient has had decreased pain and been more functional. Oral medications have been reduced including intake of oral opioids. Patient continues to do well with intrathecal therapy with decrease in pain symptoms and increase in functional status. Stopping intrathecal medications can lead to life threatening withdrawal, seizures, cardiac arrest, severe pain, and possible . Pumps that are not refilled at regular intervals can be damages and cause and need for replacement. We continually titrate dose and concentration to optimize pain relief and function. We are limited in concentration for certain drugs to safely deliver medicat
[2023-02-20 11:54] VITALS: BP 122/80; PULSE 84; RESP 20; BMI 43.0
== END ==
PROVIDERS: PCP Internal Medicine; Visit Provider Nurse Practitioner Family
DX: M51.16 Intervertebral disc disorders with radiculopathy, lumbar region (principal); Z97.8 Presence of other specified devices
CPT/HCPCS: 62368; 99212; G0463

== ENCOUNTER → 2023-03-05 12:52 | Outpatient (POV) | payer BC, SELFPAY ==
[2023-03-05 13:31] VITALS: BP 153/89; PULSE 73; RESP 18; O2SAT 97; BMI 42.3
--- NOTE | 2023-03-05 13:40 | EXP.PAIN.PRO ---
Procedure Date: 03/05/23 Time: 13:04 Anesthesiologist:: Magalis Trujillo APRN Complications:: None Pre-procedure Diagnosis:: Degenerative disc disease of lumbar spine with lumbar radiculopathy symptoms Post-procedure Diagnosis:: Same Indications for Procedure:: Patient is a pleasant 52-year-old female who presents today for follow-up of 3 week postop of intrathecal pain pump placement on 02/13/2023 and intrathecal reprogramming adjustment.? We are currently treating the patient for degenerative disc disease of lumbar spine with lumbar radiculopathy symptoms.? Today she rates her pain a 2 out of 10.? She denies any new trauma or injury. She denies any problems following her implant procedure. Patient states she has increased her activity somewhat and will occasionally experience worsening pain however overall she is done much better with the implants than she did prior. She is currently managed with intrathecal morphine 1 mg/mL with a daily dose of 0.1 mg/day. Patient denies any side effects from this medication. She also takes baclofen 10 mg 4 times a day as needed and is requesting a refill of this medication during today's visit. At our last visit we did try and set up her PTM device however we could not get it to work due to the battery. Her Husam has been reviewed and is appropriate. Physical Exam: General: Alert and oriented x3, no acute distress, pleasant and cooperative Lungs: Respirations even and unlabored, symmetrical chest expansion Eyes: PERRL Musculoskeletal: Flexion and extension of lumbar [spine] somewhat guarded secondary to pain, [antalgic gait noted] Neurological: Speech clear, no gross sensory deficit Skin: Incision sites clean, dry, well approximated with chad and sutures intact Procedure Details:: Informed consent was obtained and the risk and benefits of the procedure were explained to the patient. Patient was taken to the procedure room where noninvasive monitoring was placed including noninvasive blood pressure cuff and pulse oximeter. Patient's pump was interrogated and was reprogrammed to morphine 0.11 mg/day. The patient tolerated the procedure well with no complications. Plan and Disposition:: Patient did have her chad and sutures removed during today's visit with skin glue and Steri-Strips applied. Her incisions are clean, dry, well approximated with minimal erythema noted. I have counseled the patient to continue her postop restrictions for the full 6 weeks. I will refill her baclofen 10 mg 4 times a day and provide a 1 month supply of this medication. Patient was able to get her new PTM device set up during her visit today and tolerated her intrathecal increase with no complications. We did monitor her for a short period of time in clinic following this increase and she was discharged neurologically intact. Patient will return to clinic in 1 month for reevaluation of symptoms and plan of care. Patient has been instructed to contact the clinic with any concerns before the next appointment. Dr. Banerjee has reviewed this note and agrees with this plan of care. This note was dictated using voice recognition software and make contain errors or omissions. -- It Is medically necessary for this patient to continue to have their intrathecal pump refilled at regular intervals. This patient had an intrathecal pain pump implanted after meeting criteria of chronic intractable pain for greater than 3 months and failing conservative treatments. Patient has committed and been compliant to the treatment plan and all planned follow up care. Since implantation of the intrathecal pain pump, the patient has had decreased pain and been more functional. Oral medications have been reduced including intake of oral opioids. Patient continues to do well with intrathecal therapy with decrease in pain symptoms and increase in functional status. Stopping intrathecal medications can lead to life threatening withdrawal, seizures, cardiac arr
== END | disposition home or self-care (01) ==
PROVIDERS: PCP Internal Medicine; Visit Provider Nurse Practitioner Family
DX: Z45.1 Encounter for adjustment and management of infusion pump (principal); M51.16 Intervertebral disc disorders with radiculopathy, lumbar region
CPT/HCPCS: 62368

== ENCOUNTER → 2023-04-08 13:49 | Outpatient (POV) | payer BC, SELFPAY ==
--- NOTE | 2023-04-08 14:11 | EXP.PAIN.SOA ---
[facility] Pain Management SOAP Note Subjective:: Patient is a pleasant 52-year-old female who presents today for 1 month follow-up. 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 Today she rates her pain a 2 out of 10. Patient denies any new trauma or injury. She denies any change location or type of pain she experiences. Patient states she continues to do well with her intrathecal medication and denies any side effects. Patient is currently on Ozempic medication and has lost over 40 pounds. Patient states she does feel much better overall and has been able to increase her activity. Patient is currently managed with baclofen 10 mg 4 times a day. Patient denies any side effects from this medication. She is requesting a refill at today's visit. Patient does state that she continues to use her compounding cream. She is currently managed with morphine 1 mg/mL with a daily dose of 0.11 mg/day. She states she will have occasionally worse pain however she will use her bolus and does get significant relief. Her Husam is [id number]. Its been reviewed and appropriate. Review of Systems: General: No recent weight changes, no fever, no sleep disturbances Respiratory: No cough, no shortness of air, no recurring pulmonary infections Cardiovascular/peripheral vascular: No chest pain, no palpitations, no edema, no shortness of breath Gastrointestinal: No new onset incontinence, normal bowel movements reported Genitourinary: No new onset incontinence Musculoskeletal: Low back pain Psychiatric: [Normal mood/affect] Neurological: [Denies weakness in extremities], [denies balance issues] Objective:: Physical Exam: General: Alert and oriented x3, no acute distress, pleasant and cooperative Lungs: Respirations even and unlabored, symmetrical chest expansion Eyes: PERRL Musculoskeletal: Flexion and extension of lumbar [spine] somewhat guarded secondary to pain, [antalgic gait noted] Neurological: Speech clear, no gross sensory deficit Assessment:: Degenerative disc disease of lumbar spine with lumbar radiculopathy symptoms Plan:: Patient continues to do well with her intrathecal pain pump and does not require any additional adjustments at today's visit. I will refill the patient's baclofen 10 mg 4 times a day and provide a 2-month supply of this medication. Patient will return to clinic in 2 months for intrathecal refill and reprogram and reevaluation of symptoms. We will see the patient back in the clinic at the next intrathecal refill. Patient has been instructed to contact the clinic with any concerns before the next appointment. Dr. Banerjee has reviewed this note and agrees with this plan of care. This note was dictated using voice recognition software and make contain errors or omissions. -- It Is medically necessary for this patient to continue to have their intrathecal pump refilled at regular intervals. This patient had an intrathecal pain pump implanted after meeting criteria of chronic intractable pain for greater than 3 months and failing conservative treatments. Patient has committed and been compliant to the treatment plan and all planned follow up care. Since implantation of the intrathecal pain pump, the patient has had decreased pain and been more functional. Oral medications have been reduced including intake of oral opioids. Patient continues to do well with intrathecal therapy with decrease in pain symptoms and increase in functional status. Stopping intrathecal medications can lead to life threatening withdrawal, seizures, cardiac arrest, severe pain, and possible . Pumps that are not refilled at regular intervals can be damages and cause and need for replacement. We continually titrate dose and concentration to optimize pain relief and function. We are limited in concentration for certain drugs to safely deliver medications through the pump and stay within the recommendations from the
[2023-04-08 15:16] VITALS: BP 156/103; PULSE 73; RESP 18; O2SAT 98; BMI 41.1
== END | disposition home or self-care (01) ==
PROVIDERS: PCP Internal Medicine; Visit Provider Nurse Practitioner Family
DX: M51.16 Intervertebral disc disorders with radiculopathy, lumbar region (principal)
CPT/HCPCS: 99212; G0463

== ENCOUNTER 2023-05-12 10:32 | Day surgery (SDC) | payer BC, SELFPAY ==
[2023-05-12 10:47] VITALS: BP 155/76; PULSE 79; RESP 18; TEMP 36.5; O2SAT 97; BMI 41.6
[2023-05-12 11:13] VITALS: BP 156/96; PULSE 76; RESP 20; O2SAT 100
[2023-05-12 11:24] VITALS: BP 148/94; PULSE 73; RESP 18; O2SAT 98
--- NOTE | 2023-05-12 11:24 | EXP.PAIN.PRO ---
Procedure Date: 05/12/23 Time: 11:15 Anesthesiologist:: Kalyan Childress CRNA Complications:: None Pre-procedure Diagnosis:: Degenerative disc lumbar spine multilevels. Lumbar radiculopathy. Post-procedure Diagnosis:: Same Indications for Procedure:: The patient is a pleasant 52-year-old female comes our clinic today for intrathecal pain pump refill and interrogation. Patient currently being managed with morphine sulfate 1 mg/mL at 0.1100 mg/day. Patient is requesting her increase in her rate today. She rates her pain 4/10. Patient states the low back pain increases with activity. We will increase her 10%. Her new rate will be 0.1100 mg/day. Patient also has option of PTC. We will review this procedure with her today. Procedure Details:: Details of procedure explained to the patient. The patient taken the procedure room placed in sitting position. The area of the pump was cleansed with chlorhexidine as a cleansing solution. The pump was interrogated. The pump was accessed with ease using a 22-gauge inch and half needle. 9 mL of solution was withdrawn and discarded appropriately. The pump was then filled with 20 cc incrementally of morphine sulfate 1 mg/mL. We will increase the rate by 10% today. Her new rate will be 0.1211 mg/day. Plan and Disposition:: Patient was discharged without incident.
[2023-05-12 14:29] LABS: Amphetamine/Metha Screen,Urine Negative ng/ml (<1000); Benzodiazepines Screen,Urine Negative ng/ml (<200)
[2023-05-12 14:30] LABS: Barbiturates Screen,Urine Negative ng/ml (<200)
[2023-05-12 14:31] LABS: Cannabinoid Screen,Urine Negative ng/ml (<50); Cocaine Screen,Urine Negative ng/ml (<300)
[2023-05-12 14:32] LABS: Methadone Screen,Urine Negative ng/ml (<300)
[2023-05-12 14:33] LABS: Opiate Screen,Urine Negative ng/ml (<300); Phencyclidine Screen,Urine Negative ng/ml (<25)
[2023-05-19 12:06] LABS: Opiates Negative (Cutoff=100)
== END 2023-05-12 11:24 | disposition home or self-care (01) ==
PROVIDERS: Anesthesiology; PCP Internal Medicine; Visit Provider Nurse Anesthetist, Certified Registered
DX: M51.16 Intervertebral disc disorders with radiculopathy, lumbar region (principal)
CPT/HCPCS: 80305; 80361; 80365; 95991; G0480

== ENCOUNTER → 2023-07-08 10:15 | Outpatient (POV) | payer BC, SELFPAY ==
[2023-07-08 10:29] VITALS: BP 162/98; PULSE 72; RESP 18; O2SAT 98; BMI 40.8
--- NOTE | 2023-07-08 10:42 | EXP.PAIN.PRO ---
Procedure Date: 07/08/23 Time: 10:42 Anesthesiologist:: Magalis Trujillo APRN Complications:: None Pre-procedure Diagnosis:: Degenerative disc disease of lumbar spine with lumbar radiculopathy symptoms Post-procedure Diagnosis:: Degenerative disc disease of lumbar spine with lumbar radiculopathy symptoms, mid back pain Indications for Procedure:: Patient is a pleasant 53-year-old female who presents today for follow-up. 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 Today she rates her pain a 8 out of 10. Patient denies any new trauma or injury. She states the last 4 days she has had increased mid back pain that radiates down to her low back and goes into both her legs down to her feet. Patient does describe this as a constant achy sensation that is worse with increased activity. She does state the pain interferes with her ability to sleep as well as do activities of daily living such as cooking and cleaning. Patient is currently managed with baclofen 10 mg 4 times a day and intrathecal morphine 1 mg/mL with a daily dose of 0.1211 mg/day. She denies any side effects from these medications. Her Husam is [id number]. Its been reviewed and appropriate. Physical Exam: General: Alert and oriented x3, no acute distress, pleasant and cooperative Lungs: Respirations even and unlabored, symmetrical chest expansion Eyes: PERRL Musculoskeletal: Flexion and extension of lumbar [spine] somewhat guarded secondary to pain, [antalgic gait noted] extreme point tenderness around T12 and L4/L5 region Neurological: Speech clear, no gross sensory deficit Procedure Details:: Informed consent was obtained and the risk and benefits of the procedure were explained to the patient. Patient was taken to the procedure room where noninvasive monitoring was placed including noninvasive blood pressure cuff and pulse oximeter. Patient's pump was interrogated and was reprogrammed to morphine 0.1453 mg/day. The patient tolerated the procedure well with no complications. Plan and Disposition:: Patient is experiencing significant pain in her low back with radiating symptoms into her lower extremities. Patient had limited range of motion of her lumbar spine along with extreme point tenderness up around the T12 and L4/L5 region. I have discussed with the patient that she may benefit from a lumbar epidural steroid injection. Risk and benefits were explained to the patient and she would like to proceed forward with this plan of care. Patient is not on any blood thinners. We will schedule the patient for a LESI L4-L5. Patient tolerated her intrathecal increase with no complications and was discharged neurologically intact. Patient has been instructed to contact the clinic with any concerns before the next appointment. Dr. Banerjee has reviewed this note and agrees with this plan of care. This note was dictated using voice recognition software and make contain errors or omissions. -- It Is medically necessary for this patient to continue to have their intrathecal pump refilled at regular intervals. This patient had an intrathecal pain pump implanted after meeting criteria of chronic intractable pain for greater than 3 months and failing conservative treatments. Patient has committed and been compliant to the treatment plan and all planned follow up care. Since implantation of the intrathecal pain pump, the patient has had decreased pain and been more functional. Oral medications have been reduced including intake of oral opioids. Patient continues to do well with intrathecal therapy with decrease in pain symptoms and increase in functional status. Stopping intrathecal medications can lead to life threatening withdrawal, seizures, cardiac arrest, severe pain, and possible . Pumps that are not refilled at regular intervals can be damages and cause and need for replacement. We continually titrate dose and concentr
== END | disposition home or self-care (01) ==
PROVIDERS: PCP Internal Medicine; Visit Provider Nurse Practitioner Family
DX: M51.16 Intervertebral disc disorders with radiculopathy, lumbar region (principal); M54.6 Pain in thoracic spine; Z97.8 Presence of other specified devices
CPT/HCPCS: 62368; 99212; 99213; G0463

== ENCOUNTER 2023-08-18 09:21 | Day surgery (SDC) | payer BC, SELFPAY ==
[2023-08-18 09:32] VITALS: BP 139/74; PULSE 95; RESP 18; TEMP 36.2; O2SAT 98; BMI 44.8
[2023-08-18 09:47] VITALS: BP 137/57; PULSE 85; RESP 18
[2023-08-18 09:48] VITALS: BP 137/57; PULSE 86; RESP 18; O2SAT 96
--- NOTE | 2023-08-18 09:59 | EXP.PAIN.PRO ---
Procedure Date: 08/18/23 Time: 09:45 Anesthesiologist:: Kalyan Childress CRNA Complications:: None Pre-procedure Diagnosis:: Degenerative disc lumbar spine multilevels. Lumbar radiculopathy. Post-procedure Diagnosis:: Same. Indications for Procedure:: Patient is a very pleasant 53-year-old female comes our clinic today for intrathecal pain pump interrogation and refill. Patient is currently being managed with morphine sulfate 1 mg/mL at 0.1453 mg/day. Patient doing very well with her current settings. She does not report any complications or side effects. Procedure Details:: Details of the procedure explained to the patient. The patient taken the procedure room placed in the sitting position. The area over the pump was cleaned using chlorhexidine as a cleansing solution. The pump was interrogated. The pump was accessed with ease using 22-gauge inch and a half needle. 6 mL of solution was withdrawn discarded appropriately. The pump was then filled 20 cc of a solution containing morphine sulfate 1 mg/mL. Patient tolerated procedure without difficulty. There are no complications. Pump rate will remain the same. Plan and Disposition:: Patient was discharged without incident.
[2023-08-18 10:00] VITALS: BP 146/86; PULSE 77; RESP 18; O2SAT 98
== END 2023-08-18 10:00 | disposition home or self-care (01) ==
PROVIDERS: PCP Internal Medicine; Visit Provider Nurse Anesthetist, Certified Registered
DX: M51.16 Intervertebral disc disorders with radiculopathy, lumbar region (principal); Z97.8 Presence of other specified devices
CPT/HCPCS: 95991

== ENCOUNTER 2023-11-10 09:55 | Day surgery (SDC) | payer BC, SELFPAY ==
[2023-11-10 10:07] VITALS: BP 147/73; PULSE 96; RESP 16; TEMP 36.4; O2SAT 99; BMI 46.0
[2023-11-10 10:17] VITALS: BP 143/95; PULSE 90; RESP 18; O2SAT 98
--- NOTE | 2023-11-10 10:18 | EXP.PAIN.PRO ---
Procedure Date: 11/10/23 Time: 10:15 Anesthesiologist:: Kalyan Childress CRNA Complications:: None Pre-procedure Diagnosis:: Degenerative disc lumbar spine multilevels. Lumbar radiculopathy. Lumbar postlaminectomy syndrome. Post-procedure Diagnosis:: Same. Indications for Procedure:: Patient is a very pleasant 53-year-old female comes our clinic today for intrathecal pain pump interrogation refill. Patient currently being managed with morphine sulfate 1 mg/mL at a rate of 0.1453 mg/day. Patient doing very well with her current settings. She is not reporting side effects or complications. Procedure Details:: Details of the procedure explained to the patient. The patient taken the procedure room placed in the sitting position. The area over the pump was cleansed using chlorhexidine's cleansing solution. The pump was interrogated. The pump was accessed with ease using a 22-gauge inch and half needle. 7 mL of solution was withdrawn and discarded appropriately. The pump was then filled with 20 cc of a solution containing morphine sulfate 1 mg/mL. Patient tolerated procedure without difficulty. There are no complications. Plan and Disposition:: Patient was discharged without incident.
[2023-11-10 10:20] VITALS: BP 143/95; PULSE 90; RESP 18; O2SAT 98
[2023-11-10 10:30] VITALS: BP 136/66; PULSE 88; RESP 18; O2SAT 99
[2023-11-10 11:44] LABS: Amphetamine/Metha Screen,Urine Negative ng/ml (<1000); Barbiturates Screen,Urine Negative ng/ml (<200)
[2023-11-10 11:45] LABS: Benzodiazepines Screen,Urine Negative ng/ml (<200); Cannabinoid Screen,Urine Negative ng/ml (<50)
[2023-11-10 11:46] LABS: Cocaine Screen,Urine Negative ng/ml (<300)
[2023-11-10 11:47] LABS: Methadone Screen,Urine Negative ng/ml (<300); Phencyclidine Screen,Urine Negative ng/ml (<25)
[2023-11-10 11:48] LABS: Opiate Screen,Urine Negative ng/ml (<300)
[2023-11-15 08:21] LABS: Opiates Negative (Cutoff=100)
== END 2023-11-10 10:30 | disposition home or self-care (01) ==
PROVIDERS: PCP Internal Medicine; Visit Provider Nurse Anesthetist, Certified Registered
DX: M51.16 Intervertebral disc disorders with radiculopathy, lumbar region (principal); M96.1 Postlaminectomy syndrome, not elsewhere classified; Z97.8 Presence of other specified devices; Z45.1 Encounter for adjustment and management of infusion pump
CPT/HCPCS: 80307; 80361; 80365; 95991; G0480

== ENCOUNTER 2023-11-25 09:38 | Outpatient (CLI) | payer BC, SELFPAY ==
[2023-11-25 09:48] LABS: Microscopic, Urine URINE MICROSCOPIC (MICROSCOPIC)
[2023-11-25 10:21] LABS: Appearance,Urine CLEAR (Clear); Bilirubin,Urine Negative (Negative); Blood, Urine Negative (Negative); Color,Urine YELLOW (Yellow); Glucose,Urine (UA) Negative (Negative); Ketones,Urine Negative (Negative); Leukocyte Esterase,Urine Negative (Negative); Nitrate,Urine Negative (Negative); Protein,Urine Negative (Negative); Urobilinogen,Urine 0.2 EU/dl (0.2)
[2023-11-25 10:29] LABS: Basophils # 0.1 K/mm3 (0-0.2); Basophils % 0.6 % (0.1-2.0); Eosinophils # 0.2 K/mm3 (0.0-0.4); Eosinophils % 1.6 % (0.1-12.0); Hematocrit 39.6 % (37.0-47.0); Hemoglobin 13.1 g/dL (12.2-16.2); Lymphocytes # 2.4 K/mm3 (0.7-4.5); Lymphocytes % 20.6 % (10-50); Mean Corpuscular HGB Conc 33.1 g/dL (31.8-35.4); Mean Corpuscular Hemoglobin 31.1 pg (27.0-31.2); Mean Platelet Volume 8.1 fl (7.4-10.4); Monocytes # 0.5 K/mm3 (0.1-1.0); Monocytes % 4.2 % (1.7-9.3); Neutrophils # 8.6 K/mm3 (1.8-7.8); Neutrophils % 72.9 % (37.0-80.0); Platelet Count 305 K/mm3 (142-424); Red Blood Count 4.22 M/mm3 (4.20-5.40); Red Cell Distribution Width 14.3 % (11.5-17.5); White Blood Count 11.8 K/mm3 (4.8-10.8)
[2023-11-25 10:57] LABS: Anion Gap 13.1 mEq/L (5-15); Blood Urea Nitrogen 14 mg/dl (7-17); Calcium 9.4 mg/dl (8.4-10.2); Carbon Dioxide 27 mmol/L (22.0-30.0); Chloride 103 mmol/L (98-107); Estimated Glomerular Filt Rate 52 ml/min (>60); GFR (African American) 63 ML/MIN (>60); Glucose 127 mg/dl (74-100); Potassium 4.1 mmoL/L (3.5-5.1); Sodium 139 mmol/L (136-145)
== END 2023-11-25 23:59 ==
LOC: LAB 09:40
PROVIDERS: PCP Internal Medicine; Visit Provider Internal Medicine Nephrology
DX: D63.1 Anemia in chronic kidney disease (principal); I12.9 Hypertensive chronic kidney disease with stage 1 through stage 4 chronic kidney disease, or unspecified chronic kidney disease; N18.2 Chronic kidney disease, stage 2 (mild); F17.210 Nicotine dependence, cigarettes, uncomplicated
CPT/HCPCS: 36415; 80048; 81001; 85025

== ENCOUNTER 2024-01-26 10:30 | Day surgery (SDC) | payer BC, SELFPAY ==
[2024-01-26 10:45] VITALS: BP 135/84; PULSE 91; RESP 18; TEMP 36.4; O2SAT 96; BMI 46.0
[2024-01-26 10:55] VITALS: BP 139/82; PULSE 82; RESP 18; O2SAT 95
[2024-01-26 10:56] VITALS: BP 139/82; PULSE 82; RESP 18; O2SAT 95
--- NOTE | 2024-01-26 11:05 | EXP.PAIN.PRO ---
Procedure Date: 01/26/24 Time: 10:45 Anesthesiologist:: Kalyan Childress CRNA Complications:: None Pre-procedure Diagnosis:: Degenerative disc lumbar spine multilevels. Lumbar radiculopathy. Post-procedure Diagnosis:: Same. Indications for Procedure:: Patient is a very pleasant 53-year-old female comes our clinic today for intrathecal pain pump interrogation and refill. She is currently being managed with morphine sulfate 1 mg/mL at a rate of 0.1453 mg/day. She is requesting increase today due to low back pain as well as bilateral hip and leg radicular symptoms at times. She rates her pain 6/10. Procedure Details:: Details of the procedure explained to the patient. The patient taken procedure and placed in the prone position on fluoroscopy table. The area of the pump was cleansed using chlorhexidine's cleansing solution. The pump was interrogated. The pump was accessed with ease using a 22-gauge inch and half needle and fluoroscopy guidance. 8 mL of solution was withdrawn and discarded appropriately. The pump was then filled with 20 cc of solution containing morphine sulfate 1 mg/mL. The rate will be increased by 20% today. Her new rate will be 0.1742 mg/day. Patient tolerated procedure without difficulty. There are no complications. Plan and Disposition:: Patient was discharged without incident.
[2024-01-26 11:07] VITALS: BP 125/68; PULSE 77; RESP 18; O2SAT 96
== END 2024-01-26 11:07 | disposition home or self-care (01) ==
PROVIDERS: PCP Internal Medicine; Visit Provider Nurse Anesthetist, Certified Registered
DX: M51.16 Intervertebral disc disorders with radiculopathy, lumbar region (principal); Z97.8 Presence of other specified devices; Z45.1 Encounter for adjustment and management of infusion pump
CPT/HCPCS: 62370

== ENCOUNTER 2024-03-29 10:33 | Day surgery (SDC) | payer BC, SELFPAY ==
[2024-03-29 10:54] VITALS: BP 123/79; PULSE 80; RESP 18; TEMP 36.2; O2SAT 97; BMI 45.4
[2024-03-29 11:05] VITALS: BP 109/74; PULSE 77; RESP 18; O2SAT 96
[2024-03-29 11:07] VITALS: BP 109/74; PULSE 73; RESP 18; O2SAT 97
--- NOTE | 2024-03-29 11:10 | EXP.PAIN.PRO ---
Procedure Date: 03/29/24 Time: 11:00 Anesthesiologist:: Kalyan Childress CRNA Complications:: None Pre-procedure Diagnosis:: Degenerative disc lumbar spine multilevels. Lumbar radiculopathy. Post-procedure Diagnosis:: Same. Indications for Procedure:: Patient is a very pleasant 53-year-old female comes our clinic today for intrathecal pain pump interrogation and refill. She is currently being managed with morphine sulfate 1 mg/mL at a rate of 0.1742 mg/day. She is doing very well with her current settings. She is not requesting changes. She does not report any side effects or complications. Procedure Details:: Details of the procedure explained to the patient. The patient taken procedure and placed in the prone position on the fluoroscopy table. The area of the pump was cleansed using chlorhexidine's cleansing solution. The pump was interrogated. The pump was accessed with ease under fluoroscopy guidance using a 22-gauge inch and half needle. 8 mL of solution was withdrawn discarded appropriately. The pump was then filled with 20 cc of solution containing morphine sulfate 1 mg/mL. Rate will remain the same. 0.1742 mg/day. Patient tolerated procedure without difficulty. No complications. Plan and Disposition:: Patient was discharged without incident.
[2024-03-29 11:23] VITALS: BP 117/62; PULSE 72; RESP 18; O2SAT 97
[2024-03-29 12:29] LABS: Amphetamine/Metha Screen,Urine Negative ng/ml (<1000)
[2024-03-29 12:30] LABS: Barbiturates Screen,Urine Negative ng/ml (<200); Benzodiazepines Screen,Urine Negative ng/ml (<200)
[2024-03-29 12:31] LABS: Cannabinoid Screen,Urine Negative ng/ml (<50); Cocaine Screen,Urine Negative ng/ml (<300)
[2024-03-29 12:32] LABS: Methadone Screen,Urine Negative ng/ml (<300)
[2024-03-29 12:33] LABS: Opiate Screen,Urine Negative ng/ml (<300); Phencyclidine Screen,Urine Negative ng/ml (<25)
[2024-04-02 12:25] LABS: Opiates Negative (Cutoff=100)
== END 2024-03-29 11:24 | disposition home or self-care (01) ==
PROVIDERS: Anesthesiology; PCP Internal Medicine; Visit Provider Nurse Anesthetist, Certified Registered
DX: M51.16 Intervertebral disc disorders with radiculopathy, lumbar region (principal); Z97.8 Presence of other specified devices; Z45.1 Encounter for adjustment and management of infusion pump
CPT/HCPCS: 80307; 80361; 80365; 95991; G0480

== ENCOUNTER 2024-04-03 13:47 | Emergency (ER) | payer BC, SELFPAY ==
[2024-04-03 13:54] VITALS: BP 144/82; PULSE 82; RESP 18; TEMP 36.7; O2SAT 100; BMI 45.4
--- NOTE | 2024-04-03 13:58 | PC.NURSE ---
Dr. Delvalle at bedside
--- NOTE | 2024-04-03 13:59 | ECG_ITS ---
APPROVED REPORT Exam: Resting ECG HR:86 bpm ECG Measurements Heart Rate 86 AXES NC 99 P 252 QRSd 90 QRS 37 QT 369 T 58 QTc 413 Conclusion ELECTRONIC ATRIAL PACEMAKER ABNORMAL RHYTHM ECG Electronically signed by : FABIENNE MURPHY, 04/04/2024 15:46:26
--- NOTE | 2024-04-03 14:02 | XR_ITS ---
PROCEDURE INFORMATION: Exam: XR Chest Exam date and time: 04/03/2024 2:10 PM Age: 53 years old Clinical indication: Shortness of breath; Additional info: SOB TECHNIQUE: Imaging protocol: Radiologic exam of the chest. Views: 1 view. COMPARISON: CR XR CHEST 2V 05/12/2022 3:14 PM FINDINGS: Tubes, catheters and devices: Transvenous pacemaker leads in the heart Lungs: Unremarkable. No consolidation. Pleural spaces: Unremarkable. No pleural effusion. No pneumothorax. Heart/Mediastinum: Unremarkable. No cardiomegaly. Bones/joints: Anterior cervical fusion. Osseous structures are stable IMPRESSION: No acute process
--- NOTE | 2024-04-03 14:03 | ED_ITS ---
Discharge Plan Disposition Chief Complaint: Shortness of Breath/Dyspnea Prescriptions Prescriptions: No Action albuterol sulfate [ProAir HFA] 90 mcg/actuation HFA aerosol inhaler 2 inh INHALATION DIRECTED cyanocobalamin (vitamin B-12) 1,000 mcg/mL solution 1,000 mcg IM MONTHLY tizanidine [Zanaflex] 4 mg tablet 4 mg PO TID minocycline 100 mg capsule 100 mg PO DAILY baclofen 10 mg Tablet 10 mg PO QID Qty: 120 0RF spironolactone 25 MG tablet 25 mg PO DAILY atorvastatin 80 MG tablet 80 mg PO HS carvedilol 6.25 MG tablet 12.5 mg PO BID venlafaxine 75 MG capsule,extended release 24hr 225 mg PO DAILY hydroxyzine pamoate 50 MG capsule 50 mg PO TID PRN (Reason: Anxiety) lamotrigine 25 MG tablet 25 mg PO TID zonisamide 100 MG capsule 100 mg PO TID ropinirole 0.25 MG tablet 2 mg PO HS pantoprazole 40 MG tablet,delayed release (DR/EC) 40 mg PO DAILY promethazine 25 MG tablet 25 mg PO Q6H PRN (Reason: Nausea And Vomiting) ergocalciferol (vitamin D2) 50,000 UNIT capsule 1 tab PO WEEKLY aripiprazole 10 MG tablet 5 mg PO DAILY levothyroxine 88 MCG capsule 88 mcg PO DAILY methocarbamol 500 MG tablet 500 mg PO Q8HP PRN (Reason: Muscle Spasm) Qty: 30 0RF mirtazapine [Remeron] 15 mg Tablet 15 mg PO HS cyclobenzaprine 10 mg Tablet 10 mg PO BID PRN (Reason: Muscle Spasm) Qty: 20 0RF morphine (PF) 1 mg/mL Solution 0.1 mg continuous intrathecal infusion CONT Referrals Follow up/Referrals: Ronaldo Kong [Primary Care Provider] - See instructions Discharge ED Provider: Kaushik Delvalle HPI General Chief Complaint: Shortness of Breath/Dyspnea Stated Complaint: body swollen, SOA Time Seen by Provider: 04/03/24 13:54 Mode of Arrival: Ambulatory Source of Information: Patient Limitations: No Limitations Description of Symptoms (Recalled from ER Triage Doc. by RN): Patient reports swelling in bilateral arms and lower legs. States she has been fighting fluid buildup off and on for awhile but it has gotten worse and now she is getting short of air. History of Present Illness HPI narrative: Patient is a 53-year-old female past medical history of diastolic heart failure status post pacemaker on bumetanide and spironolactone, chronic headaches, hypertension who presents emergency department for evaluation of swelling and shortness of breath. Patient has been dealing with swelling of her bilateral lower extremities over the last 6 months however it is slightly worse than normal over the last 48 hours. She has had worsening shortness of breath over this time period as well. No chest pain, no significant cough, no abdominal pain, no other acute complaints at this time. Patient's urine output is at baseline. Related Data Home Medications Medication Instructions Recorded Confirmed aripiprazole 10 mg tablet 5 mg PO DAILY Depression 05/25/21 03/29/24 atorvastatin 80 mg tablet 80 mg PO HS Cholesterol 05/25/21 03/29/24 carvedilol 6.25 mg tablet 12.5 mg PO BID blood pressure 05/25/21 03/29/24 ergocalciferol (vitamin D2) 1,250 1 tab PO WEEKLY Supplement 05/25/21 03/29/24 mcg (50,000 unit) capsule hydroxyzine pamoate 50 mg capsule 50 mg PO TID PRN Anxiety 05/25/21 03/29/24 lamotrigine 25 mg tablet 25 mg PO TID seizures 05/25/21 03/29/24 levothyroxine 88 mcg capsule 88 mcg PO DAILY . 05/25/21 03/29/24 pantoprazole 40 mg tablet,delayed 40 mg PO DAILY GERD 05/25/21 03/29/24 release promethazine 25 mg tablet 25 mg PO Q6H PRN Nausea And 05/25/21 03/29/24 Vomiting ropinirole 0.25 mg tablet 2 mg PO HS RLS 05/25/21 03/29/24 venlafaxine 75 mg capsule,extended 225 mg PO DAILY Depression 05/25/21 03/29/24 release 24 hr zonisamide 100 mg capsule 100 mg PO TID migraines/seizures 05/25/21 03/29/24 albuterol sulfate 90 mcg/actuation 2 inh INHALATION DIRECTED . 05/27/21 03/29/24 aerosol inhaler (ProAir HFA) cyanocobalamin (vitamin B-12) 1,000 mcg IM MONTHLY suppliment 05/27/21 03/29/24 1,000 mcg/mL injection solution spironolactone 25 mg tablet 25 mg PO DAILY Fluid 06/07/21 03/29/24 mirtazapine 15 mg tablet (Remeron) 15 mg PO HS sleep 10/21/22 03/29/24 tizanidine 4 mg tablet (Zanaflex) 4 mg PO TID MUSCLES 12/12/22 03/29/24 minocycline 100 mg capsule 100 mg PO DAILY Skin condition 02/13/23 03/29/24 morphine (PF) 1 mg/mL injection 0.1 mg continuous intrathecal 02/20/23 03/29/24 solution infusion CONT Pain Previous Rx's Medication Instructions Recorded methocarbamol 500 mg tablet 500 mg PO Q8HP PRN Muscle Spasm 06/02/22 #30 tabs cyclobenzaprine 10 mg tablet 10 mg PO BID PRN Muscle Spasm #20 11/11/22 tabs baclofen 10 mg tablet 10 mg PO QID Pain #120 tabs 12/03/23 Allergies Allergy/AdvReac Type Severity Reaction Status Date / Time meclizine Allergy Intermediate Unknown Verified 03/29/24 10:54 allergy reaction doxycycline Allergy Mild Vomiting Verified 03/29/24 10:54 diphenhydramine Allergy Unknown Unknown Verified 03/29/24 10:54 [From BENADRYL] allergy reaction Tetanus Vaccines and Toxoid Allergy Unknown Unknown Verified 03/29/24 10:54 [TETANUS VACCINES & TOXOID] allergy reaction adhesive tape Allergy Rash Verified 03/29/24 10:54 [facility] Disclaimer: The information contained in this section may have been updated after the patient was seen, as this information can be updated by other users. Medical History Seizure disorder Sleep apnea Seizure HLD (hyperlipidemia) HTN (hypertension) Hx of cardiac pacemaker Diabetes mellitus, type 2 Anxiety Depression Asthma Congestive heart failure Dizziness Surgical History History of spinal fusion History of hysterectomy History of right hip replacement History of left hip replacement History of knee replacement Family History Other Family history of diabetes mellitus type II Family history of hyperlipidemia Family history of hypertension Family history of myocardial infarction Social History Smoking Status: Never smoker years smoked: 30 alcohol intake: never substance use type: denies use current occupational status: other Travel in the last 8 weeks: None household members: none housing: house lives independently: Yes marital status: single education level: high school current occupational exposures/hazards: No caffeine: Yes special lai needs: No agree to transfusion: No do you feel safe at home: Yes victim of physical abuse: No victim of emotional abuse: No victim of sexual abuse: No would you like helpful sources: No ROS Obtained: Yes Systems reviewed as appropriate & no additional complaints except as documented Physical Exam General General appearance: alert and in no apparent distress Head Head exam: atraumatic and normocephalic Eye Eye exam: Present PERRL and EOMI ENT ENT exam: Present mucous membranes moist Neck Neck exam: Present normal inspection Chest Chest inspection: Present normal inspection and symmetric chest wall rise Respiratory Respiratory exam: Present normal lung sounds bilaterally; Absent respiratory distress or wheezes Cardiovascular Cardiovascular exam: Present regular rate and normal rhythm Abdominal Exam Abdominal exam: Present soft; Absent tenderness Extremities Exam Extremities exam: Present other (2+ pitting edema BLE) Neurological Exam Neurological exam: Present alert; Absent motor sensory deficit Psychiatric Psychiatric exam: Present normal affect Skin Skin exam: Present warm and dry HEART Score HEART Score HEART Score assessment performed?: Yes History (anamnesis): Slightly suspicious ECG: Normal Age: 45-65 years Risk factors: 3 or more risk factors Troponin: </= normal limit HEART Score: 3 Critical Care Critical Care Time Critical Care Time: No Medical Decision Making Husam Inquiry Pt receiving controlled substance: No Vital Signs Vital Signs: 04/03/24 13:54 04/03/24 14:21 Temperature 98.0 F Temperature Source Oral Pulse Rate 86 Pulse Rate [Radial] 82 Respiratory Rate 18 Blood Pressure 145/85 H Blood Pressure [Right Arm] 144/82 H Blood Pressure Mean [Right Arm] 102 Blood Pressure Source [Right Arm] Automatic Cuff Blood Pressure Position [Right Arm] Sitting 02 Sat by Pulse Oximetry 100 98 Oxygen Delivery Method Room Air Room Air Lab Data Labs: Lab Results 04/03/24 14:00: WBC 12.9 H, RBC 3.81 L, Hgb 11.7 L, Hct 35.9 L, MCV 94.2, MCH 30.6, MCHC 32.5, RDW 14.8, Plt Count 330, MPV 8.1, Neut % (Auto) 68.2, Lymph % (Auto) 23.7, [place] % (Auto) 5.5, Eos % (Auto) 1.7, Baso % (Auto) 0.9, Neut # (Auto) 8.8 H, Lymph # (Auto) 3.0, [place] # (Auto) 0.7, Eos # (Auto) 0.2, Baso # (Auto) 0.1, Sodium 137, Potassium 4.1, Chloride 100, Carbon Dioxide 27, Anion Gap 14.1, BUN 20 H, Creatinine 1.10 H, Estimated Creat Clear 58, Estimated GFR 52 L, Est GFR ( Amer) 63, Glucose 147 H, Calcium 9.4, Total Bilirubin 0.4, AST 30, ALT 37, Alkaline Phosphatase 170 H, Troponin I < 0.01, NT-Pro-B Natriuret Pep 57.3, Total Protein 7.6, Albumin 4.4, Globulin 3.2, Albumin/Globulin Ratio 1.4 04/03/24 14:00 04/03/24 14:00 Response Orders (Tests/Meds): ED MEDICATIONS Discontinued Medications Generic Name Dose Route Start Last Admin Trade Name Freq PRN Reason Stop Dose Admin Aspirin 324 mg 04/03/24 14:07 04/03/24 14:17 Aspirin 81mg Chewable Tablet PO 04/03/24 14:08 324 mg ONCE ONE Administration Bumetanide 1 mg 04/03/24 14:07 04/03/24 14:17 Bumetanide 1mg/4ml Vial IV 04/03/24 14:08 1 mg ONCE ONE Administration ORDERS Category Date Time Status CXR --portable [XR chest portable] Stat Exams 04/03/24 14:02 Taken POCUS Point of Care (ER Only) Stat Exams 04/03/24 14:04 Ordered BNP [NT Pro Brain Natriuretic Pep.] Stat Lab 04/03/24 14:00 Completed CBC w/Auto Diff [Complete Blood Count Auto Diff] Stat Lab 04/03/24 14:00 Completed CMP [Comprehensive Metabolic Panel] Stat Lab 04/03/24 14:00 Completed Trop I [Troponin I] Stat Lab 04/03/24 14:00 Completed Troponin I Q3H Lab 04/03/24 17:15 Ordered Troponin I Q3H Lab 04/03/24 20:15 Ordered ECG Data Tracing #1: ECG Narrative: Independently interpreted by me, rate is 86, rhythm is regular, atrial pacemaker, no ST elevation in anatomical contiguous leads, QTc 413. MDM Narrative Medical Decision Narrative: InfectionIn summary patient is a 53-year-old female past medical history described above who presents emergency department for evaluation of dyspnea. Patient is hemodynamically stable nontoxic-appearing upon arrival, afebrile. Differential diagnosis includes worsening heart failure, respiratory infection, atypical ACS, among others. Workup will be conducted with hematologic labs, chest x-ray, EKG, troponin. Initial interventions include 1 mg Bumex, aspirin. Initial workup reviewed by me, hematologic labs have mild leukocytosis, no critical electrolyte abnormalities or CLARE, initial troponin undetectably low. Chest x-ray informally interpreted by me, no acute lobar opacities or large pneumothorax. BNP is only 57 which can be falsely low given body habitus however [id number] ultrasound bedside shows relatively normal ejection fraction so no concern for systolic heart failure at this time. Initial troponin undetectably low and given that patient is not having chest pain second troponin will be deferred. Upon repeat evaluation patient continued be well- appearing without oxygen requirement and is appropriate for outpatient management at this time. Patient will double up on her diuretic tomorrow and has follow-up with her sld inclusion teacher in the next 72 hours already arranged. Patient was given return precautions. Indication: Shortness of breath Identified cardiac views: Cardiac parasternal long axis Findings: Cardiac activity present, gross wall motion normal, no large pericardial effusion Impression: -From above Images were saved to permanent archive The study was technically adequate CPT: 28053 This study was performed by me, and I personally interpreted all images/videos. Based on my clinical judgement, these images were adequate and did not necessitate further imaging.
[2024-04-03] MEDS: BUMETANIDE 1MG/4ML VIAL 1 MG IV (14:17)
[2024-04-03] MEDS: ASPIRIN 81MG CHEWABLE TABLET 324 MG PO (14:17)
[2024-04-03 14:21] VITALS: BP 145/85; PULSE 86; O2SAT 98
[2024-04-03 14:21] LABS: Chloride 100 mmol/L (98-107); Potassium 4.1 mmoL/L (3.5-5.1); Sodium 137 mmol/L (136-145)
[2024-04-03 14:24] LABS: Alanine Aminotransferase 37 U/L (12-78); Albumin Level 4.4 g/dl (3.5-5.0); Albumin/Globulin Ratio 1.4 (1.1-1.8); Alkaline Phosphatase 170 U/L (38-126); Anion Gap 14.1 mEq/L (5-15); Aspartate Amino Transferase 30 U/L (14-36); Bilirubin,Total 0.4 mg/dl (0.2-1.3); Blood Urea Nitrogen 20 mg/dl (7-17); Carbon Dioxide 27 mmol/L (22.0-30.0); Creatinine Clearance Estimated 58 mL/min (50-200); Estimated Glomerular Filt Rate 52 ml/min (>60); GFR (African American) 63 ML/MIN (>60); Globulin 3.2 g/dL (1.3-3.2); Total Protein,Serum 7.6 g/dl (6.3-8.2)
[2024-04-03 14:25] LABS: Calcium 9.4 mg/dl (8.4-10.2); Glucose 147 mg/dl (74-100)
[2024-04-03 14:27] LABS: Basophils # 0.1 K/mm3 (0-0.2); Basophils % 0.9 % (0.1-2.0); Eosinophils # 0.2 K/mm3 (0.0-0.4); Eosinophils % 1.7 % (0.1-12.0); Hematocrit 35.9 % (37.0-47.0); Hemoglobin 11.7 g/dL (12.2-16.2); Lymphocytes % 23.7 % (10-50); Mean Corpuscular HGB Conc 32.5 g/dL (31.8-35.4); Mean Corpuscular Hemoglobin 30.6 pg (27.0-31.2); Mean Corpuscular Volume 94.2 fl (81-99); Mean Platelet Volume 8.1 fl (7.4-10.4); Monocytes # 0.7 K/mm3 (0.1-1.0); Monocytes % 5.5 % (1.7-9.3); Neutrophils # 8.8 K/mm3 (1.8-7.8); Neutrophils % 68.2 % (37.0-80.0); Platelet Count 330 K/mm3 (142-424); Red Blood Count 3.81 M/mm3 (4.20-5.40); Red Cell Distribution Width 14.8 % (11.5-17.5); White Blood Count 12.9 K/mm3 (4.8-10.8)
[2024-04-03 14:33] LABS: NT Pro Brain Natriuretic Pep. 57.3 pg/mL (0-125)
[2024-04-03 14:38] LABS: Troponin I < 0.01 ng/ml (0.00-0.034)
[2024-04-03 15:05] VITALS: BP 127/80; PULSE 80; RESP 20; TEMP 36.7; O2SAT 98
== END 2024-04-03 15:06 | disposition home or self-care (01) ==
PROVIDERS: Emergency Provider Emergency Medicine; PCP Internal Medicine
DX: E87.79 Other fluid overload (principal); R06.02 Shortness of breath; I11.0 Hypertensive heart disease with heart failure; I50.31 Acute diastolic (congestive) heart failure; E78.5 Hyperlipidemia, unspecified; Z95.0 Presence of cardiac pacemaker
CPT/HCPCS: 71045; 80053; 83880; 84484; 85025; 93005; 96374; 99285

== ENCOUNTER 2024-06-14 07:41 | Day surgery (SDC) | payer BC, SELFPAY ==
[2024-06-14 08:19] VITALS: BP 122/90; PULSE 78; RESP 18; TEMP 36.3; O2SAT 99; BMI 43.9
[2024-06-14 08:36] VITALS: BP 133/41; PULSE 78; RESP 18; O2SAT 97
[2024-06-14 08:38] VITALS: BP 133/41; PULSE 78; RESP 18; O2SAT 98
[2024-06-14 09:00] VITALS: BP 146/78; PULSE 63; RESP 16; O2SAT 99
--- NOTE | 2024-06-14 09:08 | EXP.PAIN.PRO ---
Procedure Date: 06/14/24 Time: 08:40 Anesthesiologist:: Kalyan Childress CRNA Complications:: None Pre-procedure Diagnosis:: Generative disc lumbar spine multilevels. Lumbar radiculopathy. Lumbar postlaminectomy syndrome. Post-procedure Diagnosis:: Same. Indications for Procedure:: Patient is a pleasant 54-year-old female comes to clinic today for intrathecal pain pump interrogation and refill. She is currently being managed with morphine sulfate 1 mg/mL at a rate of 0.1742 mg/day. Patient reporting some increased pain in the lumbar spine area. She denies radiculopathy. She is requesting increase in intrathecal pain pump rate. I feel this is reasonable request. Will increase her by 20%. Her new rate will be 0.2091 mg/day. Procedure Details:: Details of the procedure explained to the patient. The patient taken the procedure room patient sitting position. The area over the palms cleansed using chlorhexidine as a cleansing solution. The pump was interrogated. The pump was accessed with ease using a 22-gauge inch and half needle. 5.5 mL of solution was withdrawn and discarded appropriate. The pump was then filled with 20 cc of solution containing morphine sulfate 1 mg/mL. Patient tolerated procedure without difficulty. There were no complications. As mentioned above the pump rate will now be 0.2091 mg/day. Plan and Disposition:: Patient was discharged without incident.
== END 2024-06-14 09:00 | disposition home or self-care (01) ==
LOC: SC.PAINP 07:42
PROVIDERS: PCP Internal Medicine; Visit Provider Nurse Anesthetist, Certified Registered
DX: M51.36 Other intervertebral disc degeneration, lumbar region (principal); M96.1 Postlaminectomy syndrome, not elsewhere classified
CPT/HCPCS: 95991

== ENCOUNTER 2024-08-09 09:42 | Day surgery (SDC) | payer BC, SELFPAY ==
[2024-08-09 10:10] VITALS: BP 138/73; PULSE 68; RESP 16; TEMP 36.2; O2SAT 95; BMI 41.5
[2024-08-09 10:16] VITALS: BP 148/88; PULSE 75; RESP 18; O2SAT 98
[2024-08-09 10:17] VITALS: BP 148/88; PULSE 75; RESP 18; O2SAT 98
[2024-08-09 10:31] VITALS: BP 147/95; PULSE 72; RESP 16; O2SAT 98
--- NOTE | 2024-08-09 10:40 | EXP.PAIN.PRO ---
Procedure Date: 08/09/24 Time: 10:00 Anesthesiologist:: Kalyan Childress CRNA Complications:: None Pre-procedure Diagnosis:: Degenerative disc lumbar spine. Lumbar radiculopathy. Lumbar postlaminectomy syndrome Post-procedure Diagnosis:: Same. Indications for Procedure:: Patient is a very pleasant 54-year-old female who comes our clinic today for intrathecal pain pump interrogation and refill. Patient currently being managed with morphine sulfate 1 mg/mL at a rate of 0.2091 mg/day. She is doing very well with her current settings. She is not reporting side effects or complications. She is not requesting any changes. Patient is awake alert Emerson x 3. In no acute distress. Flexion-extension lumbar spine somewhat guarded secondary to pain. Deep tendon reflexes upper lower extremities normal. Motor strength upper and lower extremities normal. There is no gross sensory deficit. Gait is normal. Procedure Details:: Details of the procedure were explained the patient. Patient taken procedure room placed in sitting position. The area of the pump was cleansed using chlorhexidine as a cleansing solution. The pump was interrogated. The pump was accessed with ease using a 22-gauge inch and half needle. 7 mL of solution was withdrawn and discarded appropriate. The pump was then filled with 20 cc of solution containing morphine sulfate 1 mg/mL. Patient tolerated procedure without difficulty. There are no complications. Plan and Disposition:: Patient was discharged without incident.
== END 2024-08-09 10:31 | disposition home or self-care (01) ==
PROVIDERS: Visit Provider Nurse Anesthetist, Certified Registered
DX: M51.16 Intervertebral disc disorders with radiculopathy, lumbar region (principal); M96.1 Postlaminectomy syndrome, not elsewhere classified
CPT/HCPCS: 95991

== ENCOUNTER 2024-08-25 09:25 | Outpatient (CLI) | payer BC, SELFPAY ==
--- NOTE | 2024-08-25 09:36 | XR_ITS ---
FINAL REPORT CLINICAL HISTORY: .soa, cp COMPARISON: None FINDINGS: Two views of the chest were obtained. A left subclavian pacemaker is present. Postoperative changes are noted in the lower cervical spine. The heart size and pulmonary vascularity are within normal limits. The mediastinum is normal. No acute pulmonary abnormality is identified. There is no pneumothorax. The bony thorax is intact. IMPRESSION: No active cardiopulmonary disease. Reviewed, Interpreted and Dictated by Harpreet Arora III, MD Transcribed by Shantel Cooper Authenticated and [facility]
== END 2024-08-25 23:59 | disposition home or self-care (01) ==
LOC: RAD 09:26
PROVIDERS: PCP Nurse Practitioner Family; Visit Provider Nurse Practitioner Family
DX: R06.00 Dyspnea, unspecified (principal)
CPT/HCPCS: 71046

== ENCOUNTER 2024-10-07 09:24 | Day surgery (SDC) | payer BC, SELFPAY ==
[2024-10-07 09:51] VITALS: BP 137/77; PULSE 109; RESP 16; TEMP 36.4; O2SAT 96; BMI 43.2
--- NOTE | 2024-10-07 09:56 | EXP.PAIN.PRO ---
Procedure Date: 10/07/24 Time: 10:31 Anesthesiologist:: Magalis Trujillo APRN Complications:: None Pre-procedure Diagnosis:: Degenerative disc disease of lumbar spine with lumbar radiculopathy symptoms Post-procedure Diagnosis:: Same Indications for Procedure:: Patient is a pleasant 54-year-old female who presents today for intrathecal refill and reprogram. Today she rates her pain 7 out of 10. She denies any new trauma or injury. Patient is currently managed with morphine 1 mg/mL with a daily dose of 0.2091 mg/day. She denies any side effects from this medication.Patient has been getting [place] 5 mg occasionally from her orthopedic provider for her other pains unrelated to her. Her Husam has been reviewed and is appropriate. Physical Exam: General: Alert and oriented x3, no acute distress, pleasant and cooperative Lungs: Respirations even and unlabored, symmetrical chest expansion Eyes: PERRL Musculoskeletal: Flexion and extension of lumbar [spine] somewhat guarded secondary to pain, [antalgic gait noted] Neurological: Speech clear, no gross sensory deficit Procedure Details:: Informed consent was obtained and the risk and benefits of the procedure were explained to the patient. The patient had noninvasive monitoring placed including noninvasive blood pressure cuff and pulse oximeter. Patient's pump was interrogated. The area over the pump was cleansed with chlorhexidine as a cleansing solution. In sterile fashion the pump was accessed with a 22-gauge needle. Approximately 7.3mls of the pump solution was removed and discarded appropriately. The pump was then refilled with 20 mL's of morphine 1 mg/mL. The needle was withdrawn and a bandage was placed over the puncture site. The infusion rate was reprogrammed and continued at 0.2091 mg/day. The patient tolerated well with no complication. Plan and Disposition:: Patient tolerated her intrathecal refill and reprogram with no complications and was discharged neurologically intact. Patient will return to clinic on or before her next refill date. We will see the patient back in the clinic at the next intrathecal refill. Patient has been instructed to contact the clinic with any concerns before the next appointment. Dr. Banerjee has reviewed this note and agrees with this plan of care. This note was dictated using voice recognition software and make contain errors or omissions. -- It Is medically necessary for this patient to continue to have their intrathecal pump refilled at regular intervals. This patient had an intrathecal pain pump implanted after meeting criteria of chronic intractable pain for greater than 3 months and failing conservative treatments. Patient has committed and been compliant to the treatment plan and all planned follow up care. Since implantation of the intrathecal pain pump, the patient has had decreased pain and been more functional. Oral medications have been reduced including intake of oral opioids. Patient continues to do well with intrathecal therapy with decrease in pain symptoms and increase in functional status. Stopping intrathecal medications can lead to life threatening withdrawal, seizures, cardiac arrest, severe pain, and possible . Pumps that are not refilled at regular intervals can be damages and cause and need for replacement. We continually titrate dose and concentration to optimize pain relief and function. We are limited in concentration for certain drugs to safely deliver medications through the pump and stay within the recommendations from the Polyanalgesic Consensus Committee Guidelines. Depending on dose and concentration these pumps may need to be refilled sooner than 3 months as we titrate. A UDS is needed to verify patient's compliance with our office pain contract. This is ordered based off specific treatments related to chronic pain with the potential to abuse certain medications.
[2024-10-07 10:23] VITALS: BP 134/54; PULSE 86; RESP 16; O2SAT 98
[2024-10-07 10:27] VITALS: BP 134/54; PULSE 86; RESP 16; O2SAT 98
[2024-10-07 10:43] VITALS: BP 115/68; PULSE 77; RESP 16; O2SAT 96
== END 2024-10-07 10:43 | disposition home or self-care (01) ==
PROVIDERS: PCP Nurse Practitioner Family; Visit Provider Nurse Practitioner Family
DX: M51.16 Intervertebral disc disorders with radiculopathy, lumbar region (principal)
CPT/HCPCS: 62370

== ENCOUNTER 2024-11-17 13:30 | Outpatient (CLI) | payer OTHER, SELFPAY ==
[2024-11-17 13:40] LABS: Microscopic, Urine URINE MICROSCOPIC (MICROSCOPIC)
[2024-11-17 14:03] LABS: Basophils # 0.1 K/mm3 (0-0.2); Basophils % 0.5 % (0.1-2.0); Eosinophils # 0.2 K/mm3 (0.0-0.4); Eosinophils % 1.9 % (0.1-12.0); Hematocrit 38.4 % (37.0-47.0); Hemoglobin 12.3 g/dL (12.2-16.2); Lymphocytes # 2.9 K/mm3 (0.7-4.5); Lymphocytes % 25.6 % (10-50); Mean Corpuscular Hemoglobin 30.5 pg (27.0-31.2); Mean Corpuscular Volume 95.3 fl (81-99); Mean Platelet Volume 10.4 fl (7.4-10.4); Monocytes # 1.1 K/mm3 (0.1-1.0); Monocytes % 9.4 % (1.7-9.3); Neutrophils % 62.1 % (37.0-80.0); Platelet Count 317 K/mm3 (142-424); Red Blood Count 4.03 M/mm3 (4.20-5.40); Red Cell Distribution Width 15.6 % (11.5-17.5); White Blood Count 11.4 K/mm3 (4.8-10.8)
[2024-11-17 14:28] LABS: Albumin Level 4.3 g/dl (3.5-5.0); Chloride 106 mmol/L (98-107)
[2024-11-17 14:29] LABS: Potassium 4.5 mmoL/L (3.5-5.1); Sodium 140 mmol/L (136-145)
[2024-11-17 14:31] LABS: Alanine Aminotransferase 28 U/L (12-78); Albumin/Globulin Ratio 1.7 (1.1-1.8); Alkaline Phosphatase 171 U/L (38-126); Anion Gap 15.5 mEq/L (5-15); Aspartate Amino Transferase 27 U/L (14-36); Bilirubin,Total 0.2 mg/dl (0.2-1.3); Blood Urea Nitrogen 18 mg/dl (7-17); Carbon Dioxide 23 mmol/L (22.0-30.0); Estimated Glomerular Filt Rate 58 ml/min (>60); GFR (African American) 70 ML/MIN (>60); Globulin 2.5 g/dL (1.3-3.2); Total Protein,Serum 6.8 g/dl (6.3-8.2)
[2024-11-17 14:32] LABS: Calcium 9.7 mg/dl (8.4-10.2); Glucose 121 mg/dl (74-100); Iron 61 ug/dL (37-170)
[2024-11-17 14:41] LABS: Total Iron Binding Capacity 332 ug/dL (265-497)
[2024-11-17 14:42] LABS: Appearance,Urine CLEAR (Clear); Bilirubin,Urine Negative (Negative); Blood, Urine Negative (Negative); Color,Urine YELLOW (Yellow); Glucose,Urine (UA) 3+ (Negative); Ketones,Urine Negative (Negative); Leukocyte Esterase,Urine Negative (Negative); Nitrate,Urine Negative (Negative); Protein,Urine Negative (Negative); Urobilinogen,Urine 0.2 EU/dl (0.2)
[2024-11-17 14:55] LABS: Hemoglobin A1C 6.3 % (4.0-6.0)
[2024-11-17 15:36] LABS: Bacteria,Urine 2+ /lpf; RBC,Urine Occasional #/hpf (0-3); WBC,Urine Occasional #/hpf (0-3); Yeast,Urine Occasional /lpf
== END 2024-11-17 23:59 | disposition home or self-care (01) ==
LOC: LAB 13:34
PROVIDERS: PCP Nurse Practitioner Family; Visit Provider Internal Medicine Nephrology
DX: N18.2 Chronic kidney disease, stage 2 (mild) (principal); N14.0 Analgesic nephropathy; I10 Essential (primary) hypertension; E11.9 Type 2 diabetes mellitus without complications; G47.33 Obstructive sleep apnea (adult) (pediatric); E66.9 Obesity, unspecified
CPT/HCPCS: 36415; 80053; 81001; 83036; 83540; 83550; 85025; 87086

== ENCOUNTER 2024-12-09 09:03 | Day surgery (SDC) | payer OTHER, SELFPAY ==
[2024-12-09 09:13] VITALS: BP 147/66; PULSE 75; RESP 16; TEMP 36.8; O2SAT 96; BMI 43.2
[2024-12-09 09:31] VITALS: BP 141/85; PULSE 74; RESP 18; O2SAT 97
[2024-12-09 09:33] VITALS: BP 141/85; PULSE 74; RESP 18; O2SAT 97
--- NOTE | 2024-12-09 09:39 | EXP.PAIN.PRO ---
Procedure Date: 12/09/24 Time: 09:38 Anesthesiologist:: Magalis Trujillo APRN Complications:: None Pre-procedure Diagnosis:: Degenerative disc disease of lumbar spine with lumbar radiculopathy symptoms Post-procedure Diagnosis:: Same Indications for Procedure:: Patient is a pleasant 54-year-old female who presents today for intrathecal refill and reprogram. Today she rates her pain a 7 out of 10. Patient denies any new falls or injuries. She does state that she could probably use a small increase on her pump. She is currently managed with morphine 1 mg/mL with a daily dose of 0.2091 mg/day. She denies any side effects from this medication. Her Husam has been reviewed and is appropriate. Physical Exam: General: Alert and oriented x3, no acute distress, pleasant and cooperative Lungs: Respirations even and unlabored, symmetrical chest expansion Eyes: PERRL Musculoskeletal: Flexion and extension of lumbar [spine] somewhat guarded secondary to pain, [antalgic gait noted] Neurological: Speech clear, no gross sensory deficit Procedure Details:: Informed consent was obtained and the risk and benefits of the procedure were explained to the patient. The patient had noninvasive monitoring placed including noninvasive blood pressure cuff and pulse oximeter. Patient's pump was interrogated. The area over the pump was cleansed with chlorhexidine as a cleansing solution. In sterile fashion the pump was accessed with a 22-gauge needle. Approximately 6 mls of the pump solution was removed and discarded appropriately. The pump was then refilled with 20 mL's of morphine 1 mg/mL. The needle was withdrawn and a bandage was placed over the puncture site. The infusion rate was reprogrammed and increased to morphine 0.2301 mg/day. The patient tolerated well with no complication. Plan and Disposition:: Patient tolerated the procedure well with no complications and was discharged neurologically intact. Patient will return to clinic on or before their next intrathecal refill date. We will see the patient back in the clinic at the next intrathecal refill. Patient has been instructed to contact the clinic with any concerns before the next appointment. Dr. Banerjee has reviewed this note and agrees with this plan of care. This note was dictated using voice recognition software and make contain errors or omissions. -- It Is medically necessary for this patient to continue to have their intrathecal pump refilled at regular intervals. This patient had an intrathecal pain pump implanted after meeting criteria of chronic intractable pain for greater than 3 months and failing conservative treatments. Patient has committed and been compliant to the treatment plan and all planned follow up care. Since implantation of the intrathecal pain pump, the patient has had decreased pain and been more functional. Oral medications have been reduced including intake of oral opioids. Patient continues to do well with intrathecal therapy with decrease in pain symptoms and increase in functional status. Stopping intrathecal medications can lead to life threatening withdrawal, seizures, cardiac arrest, severe pain, and possible . Pumps that are not refilled at regular intervals can be damages and cause and need for replacement. We continually titrate dose and concentration to optimize pain relief and function. We are limited in concentration for certain drugs to safely deliver medications through the pump and stay within the recommendations from the Polyanalgesic Consensus Committee Guidelines. Depending on dose and concentration these pumps may need to be refilled sooner than 3 months as we titrate. A UDS is needed to verify patient's compliance with our office pain contract. This is ordered based off specific treatments related to chronic pain with the potential to abuse certain medications.
[2024-12-09 09:46] VITALS: BP 135/85; PULSE 69; RESP 16; O2SAT 97
== END 2024-12-09 09:46 | disposition home or self-care (01) ==
PROVIDERS: PCP Nurse Practitioner Family; Visit Provider Nurse Practitioner Family
DX: M51.16 Intervertebral disc disorders with radiculopathy, lumbar region (principal)
CPT/HCPCS: 62370

== ENCOUNTER 2025-01-27 09:12 | Day surgery (SDC) | payer OTHER, SELFPAY ==
[2025-01-27 09:19] VITALS: BP 136/83; PULSE 83; RESP 16; O2SAT 98; BMI 43.9
[2025-01-27 09:25] VITALS: BP 125/75; PULSE 86; RESP 18; O2SAT 95
[2025-01-27 09:27] VITALS: BP 125/75; PULSE 86; RESP 18; O2SAT 95
--- NOTE | 2025-01-27 09:27 | P.PCN_ITS ---
Procedure Date: 01/27/25 Time: 09:34 Anesthesiologist:: Magalis Trujillo APRN Complications:: None Pre-procedure Diagnosis:: Degenerative disc disease of lumbar spine with lumbar radiculopathy symptoms Post-procedure Diagnosis:: Same Indications for Procedure:: Patient is a pleasant 54-year-old female who presents today for intrathecal refill and reprogram. Today she rates her pain a 8 out of 10. She denies any new trauma or injury. She is currently managed with morphine 1 mg/mL with a daily dose of 0.2301 mg/day. She denies any side effects. She does state from her last increase she really did not notice significant improvement and he is still having to use her bolus device more frequently. Patient does also feel like at night she has to deliver a bolus before she goes to bed in order to have better sleep and not be woken up by the pain. Patients Husam has been reviewed and is appropriate. Physical Exam: General: Alert and oriented x3, no acute distress, pleasant and cooperative Lungs: Respirations even and unlabored, symmetrical chest expansion Eyes: PERRL Musculoskeletal: Flexion and extension of lumbar [spine] somewhat guarded secondary to pain, [antalgic gait noted] Neurological: Speech clear, no gross sensory deficit Procedure Details:: Informed consent was obtained and the risk and benefits of the procedure were explained to the patient. The patient had noninvasive monitoring placed including noninvasive blood pressure cuff and pulse oximeter. Patient's pump was interrogated. The area over the pump was cleansed with chlorhexidine as a cleansing solution. In sterile fashion the pump was accessed with a 22-gauge needle. Approximately 7.9 mls of the pump solution was removed and discarded appropriately. The pump was then refilled with 20 mL's of morphine 1 mg/mL. The needle was withdrawn and a bandage was placed over the puncture site. The infusion rate was reprogrammed and increased 20% to morphine 0.2763 mg/day. The patient tolerated well with no complication. Plan and Disposition:: Patient tolerated the procedure well with no complications and was discharged neurologically intact. I did discuss with the patient due to her getting about 1.5 months between her refills previously and the fact that we are going up 20% today that I will increase her concentration to morphine 2 mg/mL at her next pump refill. Patient agrees with this plan of care. Patient will return to clinic on or before their next intrathecal refill date. We will see the patient back in the clinic at the next intrathecal refill. Patient has been instructed to contact the clinic with any concerns before the next appointment. Dr. Banerjee has reviewed this note and agrees with this plan of care. This note was dictated using voice recognition software and make contain errors or omissions. -- It Is medically necessary for this patient to continue to have their intrathecal pump refilled at regular intervals. This patient had an intrathecal pain pump implanted after meeting criteria of chronic intractable pain for greater than 3 months and failing conservative treatments. Patient has committed and been compliant to the treatment plan and all planned follow up care. Since implantation of the intrathecal pain pump, the patient has had decreased pain and been more functional. Oral medications have been reduced including intake of oral opioids. Patient continues to do well with intrathecal therapy with decrease in pain symptoms and increase in functional status. Stopping intrathecal medications can lead to life threatening withdrawal, seizures, car diac arrest, severe pain, and possible . Pumps that are not refilled at regular intervals can be damages and cause and need for replacement. We continually titrate dose and concentration to optimize pain relief and function. We are limited in concentration for certain drugs to safely deliver medications through the pump and stay within the recommendations from the Polyanalgesic Consensus Committee Guidelines. Depending on dose and concentration these pumps may need to be refilled sooner than 3 months as we titrate. A UDS is needed to verify patient's compliance with our office pain contract. This is ordered based off specific treatments related to chronic pain with the potential to abuse certain medications.
[2025-01-27 09:50] VITALS: BP 149/90; PULSE 80; RESP 16; O2SAT 95
== END 2025-01-27 09:50 | disposition home or self-care (01) ==
PROVIDERS: PCP Nurse Practitioner Family; Visit Provider Nurse Practitioner Family
DX: M51.16 Intervertebral disc disorders with radiculopathy, lumbar region (principal)
CPT/HCPCS: 62370

== ENCOUNTER 2025-02-09 08:56 | Outpatient (CLI) | payer OTHER, SELFPAY ==
--- OUTSIDE RECORDS SUMMARY | 2025-02-09 09:00 | XMS_ITS | Continuity of Care Document ---
Author Organization [facility] NEW Address [address] [place] [address] Care Team Providers Care Personal Coach Name Role Phone NIECY HATFIELD Certified Orthoptist [phone] Assessment No assessment recorded. Plan of Treatment Reminders Order Date Submit Date Provider Last Modified By Organization Details Last Modified Time Details Appointments Establish ed Visit 15 min 2024 11:30A M Cornelio Cooper PA-C Not available Not available Not available Lab None recorded. Referral None recorded. Procedures None recorded. Surgeries None recorded. Imaging None recorded. Medication Orders None recorded. Patient TargetsNo targets recorded. Patient InstructionsNo instructions recorded. Reason for Referral None Reported. Results Created Date Observation Date Name Description Value Unit Range Abnormal Flag Note LastModifiedBy Organization Detail LastModifiedTime 11/30/1911/30/2024 medic al clear ance* No observ ation record ed. [email or web address] [address], [address], 12/01/2024 09:59:03 Result Notes None recorded. Problems Name Problem SNOMED Code Status Onset Date Resolution Date Notes Provider Name and Address Organization Details Recorded Time Gastroesophag eal reflux disease without esophagitis 630282288 Active 2023 Cornelio Cooper PA-C [address] , [place], [address] , [facility] & [place] 10:33:08 Regurgitation of gastric content 46072785 Active 2023 Cornelio Cooper PA-C [address] , [place], [address] , [place] - [facility] - [place] & [place] 4 10:33:35 Nausea 371212821 Active [address], [place], [address] , [place] [facility] [place] & [place] 4 10:33:43 Chronic idiopathic constipation 83325123 Active [address], [place], [address] , [place] [facility] [place] & [place] 4 10:35:21 Constipation alternates with diarrhea 728578753 Active [address], [place], [address] , [place] - [facility] - [place] & [place] 4 10:36:31 Biliary dyskinesia 679748949 Active [address], [place], [address] , [place] [facility] [place] & [place] 5 13:26:10 Dysphagia 69868214 Active [address] , [place], [address] , [place] [facility] [place] & [place] 5 13:16:18 Diverticuliti s of intestine 949306304 Active [address], [place], [address] , [place] [facility] [place] & [place] 5 15:57:22 Arthritis 2472659 Active 2022 Basia barney, [place] [facility] [place] & [place] 3 14:48:04 Diabetes mellitus 08092199 Active 2022 Basia Palumbo null, [place] [facility] [place] & [place] 3 14:48:08 Hypercholeste rolemia 31774428 Active 2022 Basia Deepali null, [place] [facility] [place] & [place] 3 14:48:19 Fibromyalgia 563744465 Active 2022 Basia Palumbo null, [place] [facility] [place] & [place] 3 14:48:26 Irritable bowel syndrome 38827114 Active 2022 Basia Palumbo null, [place] [facility] [place] & [place] 3 14:48:30 Anemia 656811459 Active 2022 Britany Mujica null, [place] [facility] [place] & [place] 3 14:03:28 Hypertensive disorder 28379255 Active 2022 Britany Mujica null, [place] [facility] [place] & [place] 3 14:03:37 Cardiac pacemaker in situ 297542458 Active 2022 Britany barney, [place] [facility] [place] & [place] 3 14:04:04 Anxiety 32319476 Active 2022 Britany Mujica null[place] [facility] [place] & [place] 3 14:04:14 Asthma 478139680 Active 2022 Britany Mujica null[place] [facility] [place] & [place] 3 14:04:20 Seizure 09240352 Active 2022 Britany Mujica null, [place] [facility] [place] & [place] 3 14:04:25 Problem Notes None recorded. Procedures Surgical History Date Name Laterality Status Provider Name and Address Organization Details Recorded Time 025 Colonoscopy completed Thompson Patel [place] [facility] [place] & [place] 01/25/2025 12:58:03 025 cholecystectomy completed Katie Falcon [place] [place] & [place] 12/27/2024 10:19:28 024 completed Danay Carey [place] & [place] 01/25/2025 12:59:25 024 Most Recent Bone Density completed Danay [place] & [place] 01/25/2025 12:59:25 024 Other completed Danay [place] [facility] & [place] 01/25/2025 12:59:43 024 Joint Replacement [place] Danay [place] [facility] [place] [facility] & [place] 01/25/2025 12:59:43 023 Cystoscopy-Female completed Jordan Gil Jr, MD [address] [place] [address], [address], [place], [address], [place] [facility] [place] & [place] 03/06/2023 15:35:18 023 Date of Last Colonoscopy completed Danay Carey [place] [facility] [place] & [place] 01/25/2025 12:59:25 023 Other completed Danay [place] [facility] [place] [facility] & [place] 01/25/2025 12:59:43 023 Pacemaker/Defibril lator completed Danay Carey [place] [facility] 01/25/2025 12:59:43 023 Abdominal Surgery [place] Danay [place] [facility] [place] [facility] & [place] 01/25/2025 12:59:43 022 Cardiovascular Surgery [place] Danay [place] [facility] [place] [facility] & [place] 01/25/2025 12:59:43 020 total replacement of hip completed Basia Palumbo [place] [facility] [place] & [place] 12/03/2022 15:14:14 020 Head or Neck Surgery [place] Danay [place] [facility] [place] [facility] & [place] 01/25/2025 12:59:43 020 Hip Surgery [place] Danay [place] [facility] [place] [facility] & [place] 01/25/2025 12:59:43 019 Joint Replacement [place] Danay [place] [facility] [facility] & [place] 01/25/2025 12:59:43 019 Hip Surgery completed Danay [place] [facility] [place] [facility] & [place] 01/25/2025 12:59:43 016 EGD/Endoscopy completed Basia LYNNE [facility] & [place] 12/03/2022 15:14:01 014 Colonoscopy completed Basia LYNNE [facility] & [place] 12/03/2022 15:13:52 004 Date of Last Pap Smear completed Danay Tavares [facility] & [place] 01/25/2025 12:59:25 975 Tonsillectomy/Jonathan oidectomy completed Danay LYNNE [facility] & [place] 01/25/2025 12:59:43 neck repair completed Britany LYNNE [facility] & [place] 03/06/2023 14:05:26 procedure on knee completed Britany LYNNE [facility] & [place] 03/06/2023 14:05:44 Total Hysterectomy completed Sanjaywesly Wilbert LYNNE [facility] & [place] 03/06/2023 14:05:56 cardiac pacemaker procedure completed Britany LYNNE [facility] & [place] 03/06/2023 14:06:07 pain assessment completed Britany LYNNE [facility] & [place] 03/06/2023 14:06:20 Imaging Results None recorded. Procedure Notes None recorded. Medical Equipment None Reported. Allergies Allergen ID Allergen Name Allergen Category Reaction Reaction Severity Criticality Documentation Date Start Date Code Code System Note Provider Name and Address Organization Details Recorded Time [id number] meclizine medicatio n Not available Not available Not available 08/24/2023 6676 RxNorm Anabella Jaime LIZBETH barney [facility] & [place] 3 10:59:14 09978 Benadryl medicatio n Not available Not available Not available 12/03/202253210 7 RxNorm LIZBETH Rodriguez [facility] & [place] 14:47:43 18307 tetanus and diphtheri a toxoids Not available Not available Not available Not available 12/03/2022 84510 UNK Basia barney, [place] [facility] [place] & [place] 3 14:47:55 96031 adhesive environme nt,medica tion Not available Not available Not available 03/06/2023 10888 UNK Britany barney, [place] [facility] [place] & [place] 3 13:49:50 Medications Name Sig Start Date Stop Date Status Note LastModified by Organization Details LastModified Time clindamycin /mupirocin 100/20mg topical capsule (xylitol) [87829] MIX THE CONTENTS OF 1 CAPSULE WITH DILUENT. APPLY TO AFFECTED AREAS. PERFORM TWICE DAILY. 03/16 completed Not Available Not Available Not Available culture patient management - wound USE DIRECTED 03/16 completed Not Available Not Available Not Available spray kit 5ml USE FIVE ML FOR MEDICATIO N ADMINISTR ATION WITH SPRAY BOTTLE- DIRECTION S FOR USE (SK), #2 30ML SPRAY BOTTLES, #1 FUNNEL, SALINE 5ML VIALS #300ML 03/16 completed Not Available Not Available Not Available colistimeth ate/vancomy mable/ fluconazole 5/4/2% ointment [] APPLY 1 GRAM TO INFECTION SITE. PERFORM 1-2 TIMES DAILY 03/16 completed Not Available Not Available Not Available amantadine HCl 100 mg tablet 03/06 completed Not Available Not Available Not Available celecoxib 200 mg capsule 03/06 completed Not Available Not Available Not Available cyclobenzap rine 10 mg tablet 03/06 completed Not Available Not Available Not Available amoxicillin 500 mg capsule 03/16 completed Not Available Not Available Not Available furosemide 40 mg tablet 03/16 completed Not Available Not Available Not Available metolazone 2.5 mg tablet TAKE ONE TABLET BY MOUTH ONCE A DAY active Not Available Not Available No t Available methocarbam ol 500 mg tablet 03/06 completed Not Available Not Available Not Available buspirone 5 mg tablet TAKE 1 TABLET BY MOUTH TWICE DAILY active Not Available Not Available No t Available lamotrigine 150 mg tablet TAKE TWO TABLETS BY MOUTH ONCE A DAY active Not Available Not Available No t Available bupropion HCl SR 150 mg tablet,12 hr sustained-r elease 11/15 completed Not Available Not Available Not Available atorvastati n 80 mg tablet active Not Available Not Available Not Available venlafaxine ER 37.5 mg capsule,ext ended release 24 hr 03/16 completed Not Available Not Available Not Available clonidine HCl 0.1 mg tablet 01/16 completed Not Available Not Available Not Available venlafaxine ER 75 mg capsule,ext ended release 24 hr 03/16 completed Not Available Not Available Not Available colistin (colistimet hate sodium) 150 mg solution for injection 03/16 completed Not Available Not Available Not Available doxycycline hyclate 100 mg capsule 03/06 completed Not Available Not Available Not Available carvedilol 12.5 mg tablet TAKE ONE TABLET BY MOUTH 2 TIMES A DAY active Not Available Not Available No t Available ropinirole 1 mg tablet 03/06 completed Not Available Not Available Not Available Carafate 100 mg/mL oral suspension 03/16 completed Not Available Not Available Not Available bumetanide 2 mg tablet 1 tablet daily 08/15 completed Not Available Not Available Not Available clindamycin HCl 300 mg capsule 01/16 completed Not Available Not Available Not Available trazodone 50 mg tablet active Not Available Not Available Not Available cetirizine 10 mg tablet TAKE 1 TABLET BY MOUTH EVERY DAY active Not Available Not Available No t Available lisinopril 20 mg-hydrochl orothiazide 12.5 mg tablet 03/06 completed Not Available Not Available Not Available azithromyci n 250 mg tablet 11/15 completed Not Available Not Available Not Available glyburide 5 mg tablet 11/24 completed Not Available Not Available Not Available tizanidine 4 mg tablet 03/16 completed Not Available Not Available Not Available hydrocodone 5 mg-acetamin ophen 325 mg tablet 11/15 completed Not Available Not Available Not Available ondansetron HCl 8 mg tablet 03/06 completed Not Available Not Available Not Available minocycline 100 mg capsule 03/16 completed Not Available Not Available Not Available FreeStyle Lancets 28 gauge active Not Available Not Available Not Available lisinopril 20 mg tablet TAKE ONE TABLET BY MOUTH ONCE A DAY active Not Available Not Available No t Available ondansetron HCl 4 mg tablet 11/15 completed Not Available Not Available Not Available prednisone 20 mg tablet 11/15 completed Not Available Not Available Not Available venlafaxine ER 150 mg capsule,ext ended release 24 hr 03/16 completed Not Available Not Available Not Available cyanocobala min (vit B-12) 1,000 mcg tablet active Not Available Not Available N ot Available hydroxyzine pamoate 50 mg capsule 03/16 completed Not Available Not Available Not Available metronidazo le 500 mg tablet Take 1 tablet every 8 hours by oral route for 10 days. 2024 active Not Available Not Available Not Avai lable hydroxyzine HCl 50 mg tablet Take 1 tablet 4 times a day by oral route. 08/17 completed Not Available Not Available Not Available ciprofloxac in 500 mg tablet Take 1 tablet every 12 hours by oral route for 10 days. 2024 active Not Available Not Available Not Avai lable sulfamethox azole 800 mg-trimetho prim 160 mg tablet 08/17 completed Not Available Not Available Not Available aspirin 81 mg tablet,nydia yed release TAKE ONE TABLET BY MOUTH ONCE A DAY active Not Available Not Available No t Available doxycycline monohydrate 100 mg tablet 08/17 completed Not Available Not Available Not Available tramadol 50 mg tablet TAKE 1 TABLET BY MOUTH EVERY 6 HOURS NEEDED active Not Available Not Available No t Available quetiapine 100 mg tablet 03/06 completed Not Available Not Available Not Available acetaminoph en 500 mg tablet TAKE ONE TABLET BY MOUTH EVERY SIX HOURS NEEDED for MODERATE PAIN 4-6 PAIN SCALE active Not Available Not Available No t Available spironolact one 25 mg tablet active Not Available Not Available Not Available ondansetron 8 mg disintegrat ing tablet active Not Available Not Available N ot Available glimepiride 1 mg tablet 08/17 completed Not Available Not Available Not Available lamotrigine 25 mg tablet 03/16 completed Not Available Not Available Not Available zonisamide 100 mg capsule TAKE ONE CAPSULE BY MOUTH EVERY MORNING AND TAKE 2 CAPSULES BY MOUTH EVERY EVENING active Not Available Not Available No t Available oxycodone-a cetaminophe n 5 mg-325 mg tablet 12/27 completed Not Available Not Available Not Available levothyroxi ne 88 mcg tablet 03/16 completed Not Available Not Available Not Available propranolol 10 mg tablet 11/15 completed Not Available Not Available Not Available potassium chloride 20 mEq oral packet 01/16 completed Not Available Not Available Not Available clonidine HCl 0.2 mg tablet 03/16 completed Not Available Not Available Not Available potassium chloride ER 20 mEq tablet,exte nded release(par t/cryst) 08/17 completed Not Available Not Available Not Available famotidine 20 mg tablet TAKE ONE TABLET BY MOUTH 2 TIMES A DAY NEEDED 2024 active Not Available Not Available Not Avai lable aspirin 325 mg tablet,nydia yed release 11/15 completed Not Available Not Available Not Available Lidoderm 5 % topical patch 03/06 completed Not Available Not Available Not Available ropinirole 0.25 mg tablet 01/16 completed Not Available Not Available Not Available meclizine 25 mg tablet 03/06 completed Not Available Not Available Not Available baclofen 10 mg tablet TAKE ONE TABLET BY MOUTH FOUR TIMES A DAY NEEDED active Not Available Not Available No t Available doxycycline monohydrate 100 mg capsule 03/06 completed Not Available Not Available Not Available hydrocodone 7.5 mg-acetamin ophen 325 mg tablet 08/17 completed Not Available Not Available Not Available ropinirole 2 mg tablet TAKE TWO TABLETS BY MOUTH EVERY NIGHT active Not Available Not Available No t Available cephalexin 500 mg capsule 03/16 completed Not Available Not Available Not Available pantoprazol e 40 mg tablet,nydia yed release TAKE 1 TABLET BY MOUTH EVERY DAY active Not Available Not Available No t Available cyanocobala min (vit B-12) 1,000 mcg/mL injection solution active Not Available Not Available Not Available mirtazapine 30 mg tablet 08/17 completed Not Available Not Available Not Available trazodone 150 mg tablet 03/16 completed Not Available Not Available Not Available lisinopril 10 mg tablet TAKE 1 TABLET BY MOUTH EVERY DAY 01/25 completed Not Available Not Available Not Available promethazin e 25 mg tablet 11/15 completed Not Available Not Available Not Available polymyxin B sulfate 10,000 unit-trimet hoprim 1 mg/mL eye drops 03/16 completed Not Available Not Available Not Available nicotine 21 mg/24 hr daily transdermal patch 11/15 completed Not Available Not Available Not Available BD Luer-Nelsy Syringe 3 mL 25 gauge x 1 active Not Available Not Available Not Available gabapentin 300 mg capsule TAKE ONE CAPSULE BY MOUTH 2 TIMES A DAY 01/25 completed Not Available Not Available Not Available diclofenac sodium 75 mg tablet,nydia yed release 03/06 completed Not Available Not Available Not Available bumetanide 1 mg tablet 03/16 completed Not Available Not Available Not Available folic acid 1 mg tablet active Not Available Not Available Not Available lisinopril 5 mg tablet 01/25 completed Not Available Not Available Not Available hydrochloro thiazide 25 mg tablet 03/16 completed Not Available Not Available Not Available furosemide 20 mg tablet TAKE ONE TABLET BY MOUTH 2 TIMES A DAY. TAKE ONE TABLET NEEDED FOR AGRESSIVE EDEMA OR WEIGHT GAIN GREATER THAN 2 POUNDS OVER 24 HOURS active Not Available Not Available No t Available mirtazapine 15 mg tablet 01/16 completed Not Available Not Available Not Available ergocalcife rol (vitamin D2) 1,250 mcg (50,000 unit) capsule 03/16 completed Not Available Not Available Not Available nystatin 100,000 unit/gram topical powder active Not Available Not Available Not Available ibuprofen 600 mg tablet active Not Available Not Available Not Available polyethylen e glycol 3350 17 gram/dose oral powder Take 17 g by oral route as directed for 2 days. 03/16 completed Not Available Not Available Not Available methylpredn isolone 4 mg tablets in a dose pack 11/15 completed Not Available Not Available Not Available albuterol sulfate HFA 90 mcg/actuati on aerosol inhaler INHALE 2 PUFFS BY MOUTH EVERY 4 HOURS active Not Available Not Available No t Available ketoconazol e 2 % topical cream APPLY UP TO 1 GRAM TO AFFECTED AREA TWICE DAILY. 03/06 completed Not Available Not Available Not Available ondansetron 4 mg disintegrat ing tablet DISSOLVE 2 TABLETS ON THE TONGUE 2 TIMES A DAY NEEDED active Not Available Not Available No t Available cefdinir 300 mg capsule 03/16 completed Not Available Not Available Not Available fluticasone propionate 50 mcg/actuati on nasal spray,suspe nsion USE 1 SPRAY IN EACH NOSTRIL ONCE A DAY active Not Available Not Available No t Available metformin ER 500 mg tablet,exte nded release 24 hr TAKE ONE TABLET BY MOUTH EVERY MORNING WITH BREAKFAST 12/27 completed Not Available Not Available Not Available gentamicin 0.1 % topical ointment APPLY UP TO 2 GRAMS TO AFFECTED AREA TWICE DAILY DIRECTED. 03/06 completed Not Available Not Available Not Available spironolact one 50 mg tablet TAKE ONE TABLET BY MOUTH ONCE A DAY active Not Available Not Available No t Available Dulcolax (bisacodyl) 5 mg tablet,nydia yed release Take 2 tablets by oral route as directed for 1 day. 03/06 completed Not Available Not Available Not Available oxycodone 5 mg tablet 01/16 completed Not Available Not Available Not Available aripiprazol e 10 mg tablet 08/17 completed Not Available Not Available Not Available nicotine (polacrilex ) 4 mg buccal lozenge 08/17 completed Not Available Not Available Not Available Finacea 15 % topical gel 03/06 completed Not Available Not Available Not Available Senna Plus 8.6 mg-50 mg tablet 08/17 completed Not Available Not Available Not Available aripiprazol e 5 mg tablet 1 tablet daily 08/17 completed Not Available Not Available Not Available rosuvastati n 20 mg tablet TAKE ONE TABLET BY MOUTH ONCE A DAY active Not Available Not Available No t Available bupropion HCl XL 300 mg 24 hr tablet, extended release 03/16 completed Not Available Not Available Not Available bupropion HCl XL 150 mg 24 hr tablet, extended release 11/15 completed Not Available Not Available Not Available Antifungal (clotrimazo le) 1 % topical cream 03/06 completed Not Available Not Available Not Available chlorhexidi ne gluconate 0.12 % mouthwash 08/17 completed Not Available Not Available Not Available Vitamin D 03/16 completed Not Available Not Available Not Available varenicline tartrate 1 mg tablet 03/06 completed Not Available Not Available Not Available quetiapine 50 mg tablet active Not Available Not Available Not Available hydrochloro thiazide 12.5 mg tablet 03/16 completed Not Available Not Available Not Available Symbicort 160 mcg-4.5 mcg/actuati on HFA aerosol inhaler 03/06 completed Not Available Not Available Not Available FreeStyle Lite Meter kit active Not Available Not Available Not Available FreeStyle Lite Strips active Not Available Not Available Not Available cholecalcif dionne (vitamin D3) 1,250 mcg (50,000 unit) capsule TAKE ONE CAPSULE BY MOUTH ONCE WEEKLY active Not Available Not Available No t Available desvenlafax ine succinate ER 50 mg tablet,exte nded release 24 hr active Not Available Not Available Not Available desvenlafax ine succinate ER 100 mg tablet,exte nded release 24 hr TAKE ONE TABLET BY MOUTH ONCE A DAY active Not Available Not Available No t Available diclofenac 1 % topical gel 03/06 completed Not Available Not Available Not Available dexlansopra zole 60 mg capsule,bip hase delayed release active Not Available Not Available Not Available sodium,pota ssium,mag sulfates 17.5 gram-3.13 gram-1.6 gram oral soln Take 6 ounces twice a day by oral route as directed for 1 day, for colonosco py prep. active Not Available Not Available No t Available Linzess 145 mcg capsule TAKE ONE CAPSULE BY MOUTH ONCE DAILY 30 MINUTES BEFORE a MEAL active Not Available Not Available No t Available Farxiga 10 mg tablet TAKE ONE TABLET BY MOUTH ONCE A DAY active Not Available Not Available No t Available Farxiga 5 mg tablet 11/15 completed Not Available Not Available Not Available Jardiance 10 mg tablet 08/17 completed Not Available Not Available Not Available Jardiance 25 mg tablet TAKE ONE TABLET BY MOUTH ONCE A DAY 12/27 completed Not Available Not Available Not Available Trelegy Ellipta 100 mcg-62.5 mcg-25 mcg powder for inhalation INHALE 1 PUFF BY MOUTH ONCE A DAY active Not Available Not Available No t Available Ozempic 0.25 mg or 0.5 mg (2 mg/1.5 mL) subcutaneou s pen injector 08/17 completed Not Available Not Available Not Available Dexcom G6 Sensor device USE DIRECTED active Not Available Not Available No t Available Dexcom G6 Director [employer] active Not Available Not Available Not Available Dexcom G6 Transmitter device active Not Available Not Available Not Available Emgality Pen 120 mg/mL subcutaneou s pen injector INJECT 120 MG SUBCUTANE OUSLY ONCE A MONTH active Not Available Not Available No t Available OneTouch Ultra2 Meter active Not Available Not Available Not Available OneTouch Delica Plus Lancet 33 gauge active Not Available Not Available Not Available [facility] ODT 75 mg disintegrat ing tablet 03/16 completed Not Available Not Available Not Available [facility] ODT 03/16 completed Not Available Not Available Not Available Ozempic 1 mg/dose (4 mg/3 mL) subcutaneou s pen injector 08/17 completed Not Available Not Available Not Available Ozempic 2 mg/dose (8 mg/3 mL) subcutaneou s pen injector 08/17 completed Not Available Not Available Not Available Mounjaro 5 mg/0.5 mL subcutaneou s pen injector 08/17 completed Not Available Not Available Not Available Mounjaro 2.5 mg/0.5 mL subcutaneou s pen injector 08/17 completed Not Available Not Available Not Available Vitals Date Recorded Body height Body mass index (BMI) Body weight Body temperature Heart rate Systolic blood pressure Diastolic blood pressure Provider Name and Address Organization Details Last Updated DateTime 5 170.18 cm 43.6 kg/m2 977389. 48 g 96.6 [degF] 73 /min 126 mm[Hg] 76 mm[Hg] Katie Falcon [facility] & [place] 10:16:07 Social History Question Answer Notes LastModified by Organizat ion Details LastModified Time Tobacco Smoking Status Current Every Day Smoker Basia Palumbo savita, [facility] & [place] 12/03/2022 15:13:21 Do You Have An Advance Directive? No Information not available 01/25/2025 What Is Your Level Of Alcohol Consumption? None [email or web address] Information not available 12/03/2022 Are You Blind Or Do You Have Difficulty Seeing? No [email or web address] Information not available 01/25/2025 What Was The Date Of Your Most Recent Tobacco Screening? 08/15/2024 Information not available 01/25/2025 Are You Passively Exposed To Smoke? No [email or web address] Information no t available 01/25/2025 Do You Or Have You Ever Used Smokeless Tobacco? Never Used Smokeless Tobacco [email or web address] Information not available 01/25/2025 How Much Tobacco Do You Smoke? 1 PPW [email or web address] Information not available 01/25/2025 Do You Feel Stressed (tense, Restless, Nervous, Or Anxious, Or Unable To Sleep At Night)? [id number] [email or web address] Information not available 01/25/2025 Do You Use Any Illicit Or Recreational Drugs? No [email or web address] Information not available 12/03/2022 How Many Years Have You Smoked Tobacco? 31 Information not available 01/25/2025 Sex: Female Functional Status Question Answer Note LastModified by Organization D etails LastModified Time What is your exercise level? None [email or web address] Information not available 01/25/2025 Mental Status None recorded. Family History Relationship Description Onset Age of this Age Resolved Age Notes LastModified by Organization Details LastModified Time Mother Hypertensive disorder [email or web address] Not available 12/03 15:12:55 Father Coronary arterioscler osis [email or web address] Not available 2024 12:46:07 Father Hypertensive disorder [email or web address] Not available 03/2023 11:00:03 Father Heart disease [email or web address] Not available 03/2023 11:00:12 Brother Coronary arterioscler osis dec [email or web address] Not available 2024 12:46:07 Brother Diabetes mellitus [email or web address] Not available 2024 12:46:07 Paternal Grandmother Obesity [email or web address] Not available 1 10/24/2022 10:59:38 Maternal Grandfather Asthma [email or web address] Not available 06/2025 12:46:07 Paternal Uncle Heart disease [email or web address] Not available 2023 09:46:19 Medical History Condition Response Anxiety Disorder Y Diabetes Y Other Y Arthritis Y Seizures/Epilepsy Y Congestive Heart Failure (CHF) Y Hyperlipidemia Y Back Problems Y Hypothyroidism Y Depression Y Asthma Y Anemia Y Reflux/GERD Y Sleep Apnea Y High Cholesterol Y Heart Disease Y Psychiatric/Mental Health Condition Y Headaches Y Hypertension Y Obstructive Sleep Apnea Y Neurological Problems Y Gynecological History Statement/Question Response Abnormal Pap N 02/28/2024 Date of Last Colonoscopy 01/22/2023 Most Recent Bone Density 02/28/2024 Date of LMP 2003 Sexually Active? Y Date of Last Pap Smear 05/25/2004 Current Control Method None Obstetrics History GPAL:G 0 P 0 0 0 0 Immunizations Vaccine Type Date Status Note Provider Nam e and Address Organization Details Recorded Time influenza, unspecified formulation 4 completed Katie Falcon null, [place] - [facility] & [place] 11/24/2024 10:00:11 zoster recombinant 5 completed Katie [place], [place] [facility] & [place] 11/24/2024 10:01:26 pneumococcal, unspecified formulation 3 completed Katie Falcon null, [place] [facility] & [place] 11/24/2024 10:01:07 Influenza, split virus, quadrivalent, preservative 2 completed Danay Carey null, [place] - [facility] & [place] 01/25/2025 12:59:55 COVID-19, mRNA, LNP-S, PF, 30 mcg/0.3 mL dose 1 completed Danay [place] null, [place] - [facility] & [place] 01/25/2025 12:59:55 COVID-19, mRNA, LNP-S, PF, 30 mcg/0.3 mL dose 1 completed Danay [place] null, [place] [facility] & [place] 01/25/2025 12:59:55 Pneumococcal conjugate PCV20, polysaccharide [id number] conjugate, adjuvant, PF 2 completed Danay [place] null, [place] [facility] & [place] 01/25/2025 12:59:55 Influenza, split virus, trivalent, preservative 9 completed Danay [place] null, [place] [facility] & [place] 01/25/2025 12:59:55 Influenza, split virus, quadrivalent, PF 3 completed Danay [place] null, [place] [facility] & [place] 01/25/2025 12:59:55 Past Encounters Encounter ID Performer Location Encounter Start Date Encounter Closed Date Diagnosis/Indication Diagnosis SNOMED-CT Code Diagnosis ICD10 Code Diagnosis Note [id number] Sakina Tran MD [facility] [address] [place] [address] 12/27/2024 10:08:07 12/27/2024 10:55:07 Chronic cholecystitis with calculus 15534364 K80.10 stable postop. Patient does have a reaction to the Monocryl suture. We discussed that this should continue to improve with conservati ve management . She can use an over-the-c ounter antihistam ine as needed. She has no restrictio ns from a surgical standpoint . We discussed that the nausea should continue to improve with time. Skin react ion to suture material [id number] T88.8XXA R23.9 Health Concerns Section Related Observation LastModified by Organization Detai ls LastModified Time None Recorded Concern Status LastModified by Organization Details LastModified Time None Recorded Payers Encounter Date Sequence Insurance Name Policy Number Policy Victoria Covered Member ID Victoria Member ID Guarantor Name 12/27/2024 1 [employer] [facility] (MEDICAID HMO) Frannie Nuñez [id number] Frannie Nuñez Notes Date Note Type Note Provider Name and Address Organization Details Recorded Time 12/27/2024 text/html Two weeks status post robotic cholecystectomy. Pathology showed gallstones with chronic cholecystitis. She feels well overall, has some itching surrounding her incision sites. She has some mild nausea postprandially which is starting to improve. Sakina Tran MD [address], [place], [address], [facility] - [place] - [place] & [place] 12/27/2024 11:41:25 OBGyn Episode No OBEpisode recorded.
--- OUTSIDE RECORDS SUMMARY | 2025-02-09 09:00 | XMS_ITS | Continuity of Care Document ---
Author Organization [facility] Phone Care Team Providers Care Insurance Claims Examiner Name Role Phone CASE, CLIF Villalobos Primary Attending CASE, CLIF Villalobos Admitting NO, DEFINED P Primary Care Unavailable CASE, CLIF Villalobos Surgeon ALLERGIES AND ADVERSE REACTIONS ALLERGIES AND ADVERSE REACTIONS Code System Allergy Substance Adverse Reaction Date Reaction (Severity) Comment Status Reported By Updated By 3498 RXNorm BENADRYL Rash HIVES active [id number] on December 14, 2024 3:16:14 PM UTC TETANUS TOXOIDS Rash HIVES active [id number] on December 14, 2024 3:16:14 PM UTC 6676 RXNorm MECLIZINE Adverse reaction to substance (Moderate) anxiety, hyperactivitiy active [id number] on December 14, 2024 3:16:14 PM UTC adhesive tape (Free Text Allergy) Rash active [id number] on December 14, 2024 3:28:48 PM UTC FAMILY HISTORY RELATION: Father Status: Cause of : Unknown Age at : 63 SNOMED-CT Diagnosis Age At Onset [id number] Heart disease RELATION: Mother Status: LIVING SNOMED-CT Diagnosis Age At Onset [id number] Hypertensive disorder RESULTS Patient: RAI Villalobos Date of : [birth year] LABORATORY RESULTS ORDER 300: GLUCOSE BEDSIDE T ESTING (LOINC: 95424-5) ORDER DATE: January 11, 2025 4:38:00 PM UTC Specimen Source: WHOLE BLOOD Specimen Type: Whole blood s ample PERFORMING LAB: [address] [id number] Result Comment: January 12 9:38:00 AM UTC Test performed by: [id number] ; Instrument: [id number] Final Result Date: January 12, 2025 9:38:00 AM UTC LOINC TEST [place] [address]-9 Glucose [Mass/volume ] in Capillary blood by Glucometer H 115 mg/dl 70 mg/dl - 105 mg/dl January 12 9:38:00 AM [facility] LABORATORY NARRATIVE RESULTS Information is not available RADIOLOGY RESULTS Information is not available PATHOLOGY NARRATIVE RESULTS ORDER 200: PATHOLOGY SPECIME N (LOINC: 01629-0) ORDER DATE: January 11, 2025 5:28:00 PM [facility] Specimen Source: PATH Specimen Type: Refer to path ology laboratory PERFORMING LAB: [address] [id number] Final Result Date: January 13, 2025 6:55:00 PM UT TEST: PATHOLOGY SPECIMEN MICROBIOLOGY RESULTS No Micro Labs/Results Exist for Patient BLOOD ADMIN RESULTS Information is not available MEDICATIONS HOME MEDICATIONS Status RXNORM [facility] Medication Dose Route Frequency Dates Comments Reported By Updated By Active [id number] 11821 40166 8 Albuterol Sulfate HFA Inhalation Aerosol Solution 108 (90 Base) MCG/ACT 2.0 PUF ORAL Q4HPRN Last Dose: PATIENT [id number] on January 10, 2025 2:05:56 PM [facility] Active 56476 29714 1 Aspirin 81 Oral Tablet Delayed Release 81 MG 1.0 TAB ORAL DAILY Last Dose: January 10, 2025 12:00: 00 PM [facility] PATIENT [id number] on January 11, 2025 4:24:42 PM [facility] Active 712286 06134 36546 0 Baclofen Oral Tablet 10 MG 1.0 TAB ORAL QID Last Dose: January 11, 2025 1:00:0 0 AM [facility] PATIENT [id number] on January 11, 2025 4:24:53 PM [facility] Active 571786 40800 51809 1 busPIRone HCl Oral Tablet 5 MG 1.0 TAB ORAL BID Last Dose: January 11, 2025 1:00:0 0 AM [facility] PATIENT [id number] on January 11, 2025 4:25:14 PM [facility] Active 097065 26734 65278 1 Carvedilol Oral Tablet 12.5 MG 1.0 TAB ORAL BID Last Dose: January 11, 2025 1:00:0 0 AM [facility] PATIENT [id number] on January 11, 2025 4:25:25 PM [facility] Active 5865287 27274 92115 1 Cetirizine HCl Oral Tablet 10 MG 1.0 TAB ORAL DAILY Last Dose: January 10, 2025 12:00: 00 PM [facility] PATIENT [id number] on January 11, 2025 4:25:41 PM [facility] Active 01529 32146 1 Vitamin D3 Oral Capsule 1.25 MG (76141 UT) 1.0 CAP ORAL QWEEK Last Dose: January 09, 2025 12:00: 00 PM [facility] PATIENT [id number] on January 11, 2025 4:31:27 PM [facility] Active 10803 51118 2 Vitamin B12 Oral Tablet Extended Release 1000 MCG 1.0 TAB ORAL DAILY Last Dose: January 10, 2025 12:00: 00 PM [facility] PATIENT [id number] on January 11, 2025 4:31:17 PM [facility] Active 185271 14047 32583 0 Desvenlafaxi ne ER Oral Tablet Extended Release 24 Hour 100 MG 1.0 TAB ORAL DAILY Last Dose: January 10, 2025 12:00: 00 PM [facility] PATIENT [id number] on January 11, 2025 4:26:02 PM [facility] Active 9946926 42357 96860 1 Emgality Subcutaneous Solution Auto-injecto r 120 MG/ML 120.0 MG SUBCUT ANEOUS QMONTH Last Dose: December 19, 2024 1:00:0 0 PM [facility] PATIENT [id number] on January 11, 2025 4:26:25 PM [facility] Active 007530 79174 40787 0 Famotidine Oral Tablet 20 MG 1.0 TAB ORAL DAILY Last Dose: January 11, 2025 1:00:0 0 AM [facility] PATIENT [id number] on January 11, 2025 4:26:37 PM [facility] Active 4835301 01309 56941 0 Farxiga Oral Tablet 10 MG 1.0 TAB ORAL DAILY Last Dose: January 10, 2025 12:00: 00 PM [facility] PATIENT [id number] on January 11, 2025 4:26:59 PM [facility] Active 28270 40469 7 Fluticasone Propionate Diskus Inhalation Aerosol Powder Breath Activated 50 MCG/ACT 1.0 SPR NASAL DAILYPRN Last Dose: PATIENT [id number] on January 11, 2025 4:27:29 PM [facility] Active 919425 67269 35403 0 Folic Acid Oral Tablet 1 MG 1.0 TAB ORAL DAILY Last Dose: January 10, 2025 12:00: 00 PM [facility] PATIENT [id number] on January 11, 2025 4:28:01 PM [facility] Active 666545 95475 21247 5 Furosemide Oral Tablet 20 MG 1.0 TAB ORAL DAILYPRN Last Dose: PATIENT [id number] on January 10, 2025 2:13:44 PM [facility] Active 660607 22182 23778 4 lamoTRIgine Oral Tablet 150 MG 1.0 TAB ORAL BID Last Dose: January 11, 2025 1:00:0 0 AM [facility] PATIENT [id number] on January 11, 2025 4:28:28 PM [facility] Active 3466678 30288 81250 0 Linzess Oral Capsule 145 MCG 1.0 CAP ORAL DAILY Last Dose: January 10, 2025 12:00: 00 PM [facility] PATIENT [id number] on January 11, 2025 4:28:40 PM [facility] Active 260150 59846 62751 1 Lisinopril Oral Tablet 10 MG 1.0 TAB ORAL DAILY Last Dose: January 10, 2025 12:00: 00 PM [facility] PATIENT [id number] on January 11, 2025 4:28:53 PM [facility] Active 346534 96670 94007 3 Ondansetron Oral Tablet Disintegrati ng 4 MG 2.0 TAB ORAL BIDPRN Last Dose: January 04, 2025 12:00: 00 PM [facility] PATIENT JQS4866 on January 11, 2025 4:29:20 PM [facility] Active 825456 01972 10003 0 Pantoprazole Sodium Oral Tablet Delayed Release 40 MG 1.0 TAB ORAL DAILY Last Dose: January 10, 2025 12:00: 00 PM [facility] PATIENT [id number] on January 11, 2025 4:29:31 PM [facility] Active 132931 92835 12435 3 rOPINIRole HCl ER Oral Tablet Extended Release 24 Hour 2 MG 2.0 TAB ORAL QPM Last Dose: January 11, 2025 1:00:0 0 AM [facility] PATIENT [id number] on January 11, 2025 4:29:40 PM [facility] Active 174391 56140 55837 1 Rosuvastatin Calcium Oral Tablet 20 MG 1.0 TAB ORAL DAILY Last Dose: January 11, 2025 1:00:0 0 AM [facility] PATIENT [id number] on January 11, 2025 4:29:54 PM [facility] Active 412268 68483 43412 1 Spironolacto ne Oral Tablet 50 MG 1.0 TAB ORAL DAILY Last Dose: January 10, 2025 12:00: 00 PM [facility] PATIENT [id number] on January 11, 2025 4:30:09 PM [facility] Active 5632521 28528 30106 0 Trelegy Ellipta Inhalation Aerosol Powder Breath Activated 100-62.5-25 MCG/ACT 1.0 PUF INHALA TION DAILY Last Dose: January 11, 2025 12:00: 00 PM [facility] PATIENT [id number] on January 11, 2025 4:30:18 PM [facility] Active 488574 73338 52743 1 Zonisamide Oral Capsule 100 MG 1.0 CAP ADULT EDUCATOR DAILY Last Dose: January 11, 2025 1:00:0 0 AM [facility] PATIENT [id number] on January 11, 2025 4:31:51 PM [facility] DISCHARGE MEDICATIONS Status RXNORM ND Medication Dose Route Frequency Dates Comments Physician Updated By No Discharge Medication Info rmation Available INPATIENT MEDICATIONS Status RXNORM [facility] Medication Dose Route Frequency Rat e Quantity Dates Comments Physician Updated By Magda inued [id number] 7804 8011 704 LACTATED RINGERS SOLN 1000. 0 ML INTRAV ENOUS ONE TIME ADMINISTRA TION (UNSCHEDUL ED) 25.0 ML/HR Start: January 10, 2025 12:23: 00 PM [facility] End: January 11, 2025 4:23:1 1 PM [facility] DIOMEDES FLORES [id number] on January 11, 2025 4:23:00 PM [facility] Discont inued [id number] 1305 8004 904 sodium chloride 0.9% SOLN 1000. 0 ML INTRAV ENOUS ONE TIME ADMINISTRA TION (UNSCHEDUL ED) 25.0 ML/HR Start: January 10, 2025 12:23: 00 PM [facility] End: January 11, 2025 11:57: 00 PM [facility] DIOMEDES FLORES [id number] on January 12, 2025 4:25:00 AM [facility] Disclm inued [id number] 0428 8011 704 LACTATED RINGERS SOLN 1000. 0 ML IV CONTIN UOUS ONE TIME ONLY (SCHEDULED DOSE) Start: January 11, 2025 12:26: 00 PM [facility] End: January 11, 2025 12:26: 00 PM [facility] CASE CLIF W INTERFAC ED on January 11, 2025 4:00:00 AM [place] Discont inued [id number] 8431 5034 542 PROPOFOL 500 MG/50ML EMUL 500.0 MG INTRAV ENOUS ONE TIME ONLY (SCHEDULED DOSE) 20.833 MG/HR Start: January 11, 2025 6:17:0 0 PM [place] End: January 11, 2025 11:57: 00 PM [place] CASE CLIF Villalobos [id number] on January 12, 2025 6:18:00 PM UT SOCIAL HISTORY SOCIAL HISTORY SNOMED-CT Social History Element Description Effective Dates Offered Cessation Comment UpdatedBy [id number] Current Tobacco smoking status Current Every Day Smoker [id number] on January 11, 2025 4:32:30 PM UT SOCIAL HISTORY - Gender Sex: Female SOCIAL HISTORY - Status : status i nformation is not available Intention in Next Year: intention information is not available SOCIAL HISTORY - Sexual Behavior Sexual Orientation Gender Identity SNOMED-CT Description SNO MED -CT Description Activity Level No of Partners Partner Type UpdatedBy Information is not available VITAL SIGNS PATIENT VITAL SIGNS This section displays the mo st recent value for each vital sign as of January 16, 2025 1:01:27 PM [place] Loinc Code Vital Sign Activity Date Result Updated By 8302-2 Body height January 11, 2025 4:32:46 PM UT 170.18 cm (67.0 in) [id number] on January 11, 2025 4:32:46 [place] [address]-0 Body mass index (BMI) [Ratio] January 11, 2025 4:32:46 PM UT 42.505 kg/m2 FRZ2301 on January 11, 2025 4:32:46 PM UT 3140-1 Body Surface Area Derived From Formula January 11, 2025 4:32:46 PM UT 2.3022 m2 PQJ4258 on January 11, 2025 4:32:[place] [address]-5 Body weight Measured January 11 4:32:46 PM UT 123.1 kg (271.0 lb) [id number] on January 11, 2025 4:32:46 PM [facility] PEDIATRIC GROWTH CHART - VITAL SIGNS This section displays Head C ircumference Percentile, Weight for Length Percentile and BMI Percentile Loinc Code Pediatric Measure Age (Months) Result Updat ed By No Pediatric Growth Chart Pe rcentile Information Available. PROCEDURES PATIENT PROCEDURES CODE SYSTEM DESCRIPTION STATUS PERFORMED DATE UPD ATED BY [id number] SNOMED-CT Colonoscopy completed January 11 4:00:00 AM UTC [id number] on January 11, 2025 5:10:59 PM UTC PROCEDURE NOTE Procedure Note information i s not available. HEALTH CONCERNS Problems Concern Status Health Concern problem infor mation not available. Smoking Status Status Years Used Consumed packs p er day Health Concern smoking histo ry information not available. Family History Concern Status Health Concern family histor y information not available. MEDICAL EQUIPMENT MEDICAL EQUIPMENT Device Status Quantity Dates Procedure Comments Updated By Uncoated knee tibia prosthesis, metallic ABRAM: ()[id number] 1 Assigning Authority: FDA Device Identifier:[id number] ACTIVE Implanted: September 19, 2019 [id number] on September 19, 2019 2:22:13 PM UTC Tibial insert ABRAM: ()[id number] Assigning Authority: FDA Device Identifier:[id number] ACTIVE Implanted: September 19, 2019 [id number] on September 19, 2019 2:22:53 PM UTC Uncoated knee femur prosthesis ABRAM: ()[id number] 6 Assigning Authority: FDA Device Identifier:[id number] ACTIVE Implanted: September 19, 2019 [id number] on September 19, 2019 2:24:02 PM UTC Polyethylene patella prosthesis ABRAM: ()[id number] 8 Assigning Authority: FDA Device Identifier:[id number] ACTIVE Implanted: September 19, 2019 [id number] on September 19, 2019 2:24:29 PM UTC Metallic orthopedic cement restrictor ABRAM: ()[id number] Assigning Authority: FDA Device Identifier:[id number] Lot or Batch Number:[id number] Expiration Date:2025-06-18 ACTIVE 2 Implanted: May 23, 2024 RIGHT TOTAL KNEE ARTHROPLASTY [id number] on May 23, 2024 4:42:44 PM UTC Uncoated knee tibia prosthesis, metallic ABRAM: ()[id number] 1 Assigning Authority: FDA Device Identifier:[id number] Lot or Batch Number:[id number] Expiration Date:2034-02-15 ACTIVE Implanted: May 23, 2024 RIGHT TOTAL KNEE ARTHROPLASTY [id number] on May 23, 2024 4:43:52 PM UTC Ceramic uncoated knee femur prosthesis ABRAM: ()[id number] Assigning Authority: FDA Device Identifier:[id number] Lot or Batch Number:[id number] Expiration Date:2033-07-18 ACTIVE Implanted: May 23, 2024 RIGHT TOTAL KNEE ARTHROPLASTY [id number] on May 23, 2024 4:45:14 PM UTC Tibial insert ABRAM: ()[id number] Assigning Authority: FDA Device Identifier:[id number] Lot or Batch Number:[id number] Expiration Date:2027-03-18 ACTIVE Implanted: May 23, 2024 RIGHT TOTAL KNEE ARTHROPLASTY [id number] on May 23, 2024 4:48:29 PM UTC Polyethylene patella prosthesis ABRAM: ()[id number] 8 Assigning Authority: [facility] Device Identifier:[id number] Lot or Batch Number:[id number] Expiration Date:2029-02-15 ACTIVE Implanted: May 23, 2024 RIGHT TOTAL KNEE ARTHROPLASTY [id number] on May 23, 2024 4:49:20 PM UT ENCOUNTERS ENCOUNTER INFORMATION Reason for Visit SC COLON Admission January 11, 2025 3:57:00 PM UTC [place] [id number] [facility] [id number] Discharge January 11, 2025 11:57:00 PM UT D ISCHARGED TO HOME OR SELF CARE ENCOUNTER DIAGNOSES Notes information is not william ilable. Code System Diagnosis Onset Date Diagnosis information is not available. 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 [id number] on January 16, 2025 1:01:08 PM UT K57.30 ICD10 DIVERTICULOSIS O F LARGE INTESTINE WITHOUT PERFORATION OR ABSCESS WITHOUT BLEEDING QZK6213 on January 16, 2025 1:01:08 PM UT I10 ICD10 ESSENTIAL (PRIMARY) HYPERTEN KASHIF IMO4630 on January 16, 2025 1:01:08 PM UTC E78.5 ICD10 HYPERLIPIDEMIA, UNSPECIFIED ORR9535 on January 16, 2025 1:01:08 PM [facility] 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 GHR5171 on January 16, 2025 1:01:08 PM [facility] F17.210 ICD10 NICOTINE DEPENDE NCE, CIGARETTES, UNCOMPLICATED CNI0060 on January 16, 2025 1:01:08 PM [facility] J44.9 ICD10 CHRONIC OBSTRUCT COSMO PULMONARY DISEASE, UNSPECIFIED YAH6071 on January 16, 2025 1:01:08 PM [facility] G47.30 ICD10 SLEEP APNEA, UNSPECIFIED AAD 6617 on January 16, 2025 1:01:08 PM [facility] K21.9 ICD10 GASTRO-ESOPHAGEA L REFLUX DISEASE WITHOUT ESOPHAGITIS [id number] on January 16, 2025 1:01:08 PM [facility] G43.909 ICD10 MIGRAINE, UNSPEC IFIED, NOT INTRACTABLE, WITHOUT STATUS MIGRAINOSUS [id number] on January 16, 2025 1:01:08 PM [facility] F43.10 ICD10 POST-TRAUMATIC S TRESS DISORDER, UNSPECIFIED YLM7071 on January 16, 2025 1:01:08 PM [facility] D64.9 ICD10 ANEMIA, UNSPECIFIED VYP2859 on January 16, 2025 1:01:08 PM [facility] E11.9 ICD10 TYPE 2 DIABETES MELLITUS WITHOUT COMPLICATIONS [id number] on January 16, 2025 1:01:08 PM [facility] E03.9 ICD10 HYPOTHYROIDISM, UNSPECIFIED YDN4880 on January 16, 2025 1:01:08 PM [facility] 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, BILATERAL [id number] on January 16, 2025 1:01:08 PM [facility] Z96.643 ICD10 PRESENCE OF R[place] FICIAL HIP JOINT, BILATERAL [id number] on January 16, 2025 1:01:08 PM [facility] Z79.82 ICD10 PENITENTIARY (CURRENT) USE OF A SPIRIN [id number] on January 16, 2025 1:01:08 PM [facility] Z79.899 ICD10 OTHER PENITENTIARY (CURRENT) DR MYNOR WILLIAM [id number] on January 16, 2025 1:01:08 PM [facility] Z88.2 ICD10 ALLERGY STATUS TO SULFONAMID ES [id number] on January 16, 2025 1:01:08 PM [facility] Z88.8 ICD10 ALLERGY STATUS T O OTHER DRUGS, MEDICAMENTS AND BIOLOGICAL SUBSTANCES [id number] on January 16, 2025 1:01:08 PM [facility] CARE TEAM Care Insurance Claims Examiner Role CLIF CASE Primary Attending CLIF CASE Admitting DEFINED NO Primary Care CLIF CASE Surgeon CARE TEAM CARE supervisor plating and point assembly Role on Team Status Start Date End Date Update d By CASE CLIF [place] Surgeon normal January 11, 2025 3:57:00 PM [facility] January 11, 2025 11:57:00 PM [facility] [id number] on January 13, 2025 11:45:15 AM [facility] NO DEFINED PRIMARY C PCP normal January 04, 2025 4:30:35 PM [facility] January 11, 2025 11:57:00 PM [facility] [id number] on January 13, 2025 11:45:15 AM [facility] CASE CLIF W YARI Attending normal January 04, 2025 4:30:35 PM [facility] January 11, 2025 11:57:00 PM [facility] [id number] on January 13, 2025 11:45:15 AM [facility] CASE CLIF W YARI Admitting normal January 04, 2025 4:30:35 PM [facility] January 11, 2025 11:57:00 PM [facility] [id number] on January 13, 2025 11:45:15 AM [facility]
--- OUTSIDE RECORDS SUMMARY | 2025-02-09 09:00 | XMS_ITS | Continuity of Care Document ---
Author Organization [facility] Phone Care Team Providers Care Hardware Engineering Manager Name Role Phone PEG NAIR Admitting PEG NAIR Unavailable PEG NAIR Primary Attending HARRIET CALI Primary Care ALLERGIES AND ADVERSE REACTIONS ALLERGIES AND ADVERSE REACTIONS Code System Allergy Substance Adverse Reaction Date Reaction (Severity) Comment Status Reported By Updated By [id number] RXNorm Diphenhydramine Adverse reaction to substance (Mild) pt active [id number] on April 23, 2024 7:56:36 PM [place] Tetanus Toxoids Adverse reaction to substance Not Specified active [id number] on April 23, 2024 7:56:36 PM [facility] FAMILY HISTORY RELATION: Father Status: Cause of : Unknown Age at : Unknown SNOMED-CT Diagnosis Age At Onset [id number] Heart disease RELATION: Mother Status: LIVING SNOMED-CT Diagnosis Age At Onset [id number] Hypertensive disorder RESULTS Patient: RAI Villalobos Date of : [birth year] LABORATORY RESULTS Information is not available LABORATORY NARRATIVE RESULTS Information is not available RADIOLOGY RESULTS ORDER 100: KNEE 2V RT (LOINC : 87312-3) ORDER DATE: December 22, 2024 7:15:00 PM [facility] PERFORMING LAB: [address] [id number] Final Result Date: December 22, 2024 7:21:[address] [place] [address] Name: MECHE ATWOOD Exam Date: 12/22/2024 : 1970 Age 54 years Gender: F Physician: PEG NAIR Facility: [facility] Facility HSV: Outpatient Exam: KNEE 2V RT EXAM DESCRIPTION: KNEE 2V RT CLINICAL HISTORY: 54 years Female, pain COMPARISON: 10/06/2024 TECHNIQUE: Conventional radiography. FINDINGS: Total knee arthroplasty with patellar resurfacing is noted. There is a suprapatellar knee joint effusion, subjectively smaller than on the prior study. No fracture is identified. IMPRESSION: 1. Small knee joint effusion without specific cause identified. Electronically signed by: Ben Bingham MD 12/22/2024 02:34 PM [facility] RP Dictated By: Ben Bingham Transcribed By: Transcribed On: 12/22/2024 2:21 PM Electronically signed by: Ben Bingham 12/22/2024 Thank you for referring MECHE ATWOOD to [facility]. Legally authenticated by MARIELLE ABDULLAHI MD 2024-12-22 14:21:29 PATHOLOGY NARRATIVE RESULTS Information is not available MICROBIOLOGY RESULTS No Micro Labs/Results Exist for Patient BLOOD ADMIN RESULTS Information is not available MEDICATIONS HOME MEDICATIONS Status RXNORM NDC Medication Dose Route Frequency Dates Comments Reported By Updated By Drug Treatment Unknown DISCHARGE MEDICATIONS Status RXNORM NDC Medication Dose Route Frequency Dates Comments Physician Updated By No Discharge Medication Info rmation Available INPATIENT MEDICATIONS Status RXNORM NDC Medication Dose Route Frequency Rat e Quantity Dates Comments Physician Updated By No Inpatient Medication Info rmation Available SOCIAL HISTORY SOCIAL HISTORY SNOMED-CT Social History Element Description Effective Dates Offered Cessation Comment UpdatedBy [id number] Historical Tobacco smoking status Current Every Day Smoker [id number] on April 23, 2024 8:50:19 PM [facility] [id number] Historical Tobacco smoking status Never Smoked [id number] on February 26, 2023 8:24:02 PM [facility] [id number] Historical Tobacco smoking status Unknown If Ever Smoked [id number] on July 25, 2013 11:27:36 PM [facility] SOCIAL HISTORY - Gender Sex: Female SOCIAL HISTORY - Status : status i nformation is not available Intention in Next Year: intention information is not available SOCIAL HISTORY - Sexual Behavior Sexual Orientation Gender Identity SNOMED-CT Description SNO MED -CT Description Activity Level No of Partners Partner Type UpdatedBy Information is not available HEALTH CONCERNS Problems Concern Status Health Concern problem infor mation not available. Smoking Status Status Years Used Consumed packs p er day Health Concern smoking histo ry information not available. Family History Concern Status Health Concern family histor y information not available. ENCOUNTERS ENCOUNTER INFORMATION Reason for Visit Z47.1 Admission December 22, 2024 7:09:00 PM [facility] [address] [facility] [id number] Discharge December 22, 2024 7:09:00 PM [facility] DIS CHARGED TO HOME OR SELF CARE ENCOUNTER DIAGNOSES Notes information is not william ilable. Code System Diagnosis Onset Date Diagnosis information is not available. ABSTRACT DIAGNOSES Code System Diagnosis Updated By Z47.1 ICD10 AFTERCARE FOLLOW ING JOINT REPLACEMENT SURGERY [id number] on December 26, 2024 8:42:12 AM [facility] M25.461 ICD10 EFFUSION, RIGHT KNEE [id number] on December 26, 2024 8:42:19 AM [facility] Z47.1 ICD10 AFTERCARE FOLLOW ING JOINT REPLACEMENT SURGERY [id number] on December 26, 2024 8:42:32 AM [facility] CARE TEAM Care Hardware Engineering Manager Role PEG NAIR Admitting PEG NAIR Referring PEG NAIR Primary Attending HARRIET CALI Primary Care CARE TEAM CARE performance improvement specialist Role on Team Status Start Date End Date Update d By KARELY WEATHERS PCP normal December 22 5:00:00 AM [facility] December 22, 2024 7:09:00 PM [facility] [id number] on December 22, 2024 7:09:37 PM [facility] KOREY RUVALCABA MD Referring normal December 22 5:00:00 AM [facility] December 22, 2024 7:09:00 PM [facility] [id number] on December 22, 2024 7:09:37 PM [facility] KOREY RUVALCABA MD Attending normal December 22 5:00:00 AM [facility] December 22, 2024 7:09:00 PM [facility] [id number] on December 22, 2024 7:09:37 PM [facility] KOREY RUVALCABA MD Admitting normal December 22 5:00:00 AM [facility] December 22, 2024 7:09:00 PM [facility] [id number] on December 22, 2024 7:09:37 PM [facility]
--- OUTSIDE RECORDS SUMMARY | 2025-02-09 09:00 | XMS_ITS | Data Portability ---
Author Organization [facility] [place] York[place]OBERTO CARLOS ADMIN Address [address] [place] [id number] Care Team Providers Care Business Systems Consultant Name Role Phone NIECY HATFIELD Insights Strategist [phone] Assessment Encounter Date Assessment Date Assessment LastModified by Organization Details LastModified Time 08/17/2024 08/17/2024 54-year-old female presenting to establish care for chronic GI issues, including chronic nausea, ongoing constipation with intermittent diarrhea, and GERD. Not available 08/17/2024 11:43:50 11/15/2024 11/15/2024 54-year-old female with chronic nausea, ongoing constipation with intermittent diarrhea, and GERD. [email or web address] Not available 11/15/2024 13:22:41 01/25/2025 01/25/2025 54-year-old female with: [email or web address] Not available 01/25/2025 21:56:59 Plan of Treatment Reminders Order Date Submit Date Provider Last Modified By Organization Details Last Modified Time Details Appointments Establish ed Visit 15 min 2024 11:30A M Cornelio Cooper PA-C Not available Not available Not available Lab None recorded. Referral general surgeon referral - Malini vazquez records from [facility] for HIDA scan and GBUS. Reported as normal, but she recalls symptom reproduct ion with CCK. Chronical ly nauseated . Unremarka ble EGD and GES recently. 2024 025 [email or web address] Sakina Tran MD, [address], [place], [address], 12/15/2024 09:57:02 Procedures None recorded. Surgeries None recorded. Imaging XR, esophagra m [address] Scheduling Department -New Scheduling Process, [address] [facility], [place], [id number], 02/08/2025 14:11:12 [place], modified barium swallow study [address] Scheduling Department -New Scheduling Process, [address] [facility], [place], [id number], 02/01/2025 08:13:31 NM, gastric emptying scan 2023 024 [email or web address] 4 Gtwn [place] Number, [address] [facility], [place], [address], 08/31/2024 15:51:47 Medication Orders Linzess 145 mcg capsule [address] [facility], [address] [place] [address] [address], [place], [id number], 01/25/2025 16:39:56 dexlansop razole 60 mg capsule,b iphase delayed release [address] [facility], [address] [place] [address] 27 [address], [place], [id number], 01/25/2025 14:14:10 Linzess 145 mcg capsule [address] [facility], [address] [place] [address] [address], [place], [id number], 11/24/2024 10:02:03 ondansetr on 4 mg disintegr ating tablet [address] [facility], [address] [place] [address] [address], [place], [id number], 11/15/2024 13:19:24 Linzess 145 mcg capsule 2023 024 [email or web address] [facility], [address] [place], [id number], 11/24/2024 09:58:51 ondansetr on 4 mg disintegr ating tablet [address] [facility], [facility] [address] [place], [id number], 08/17/2024 10:48:17 famotidin e 20 mg tablet [address] [facility], [address] [place], [id number], 08/17/2024 10:45:53 Patient TargetsNo targets recorded. Patient InstructionsNo instructions recorded. Reason for Referral General Surgeon Referral for Biliary dyskinesia Requesting records from [facility] for HIDA scan and GBUS. Reported as normal, but she recalls symptom reproduction with CCK. Chronically nauseated. Unremarkable EGD and GES recently. Referring Physician: Cornelio Cooper, Gastroenterology, Encounter Date: 11/15/2024 Results Created Date Observation Date Name Description Value Unit Range Abnormal Flag Note LastModifiedBy Organization Detail LastModifiedTime 11/24/1911/24/2024 CBC NO DIFF (HEMO GRAM) WBC 9.3 K/uL 4.0-10 .5 Not Available [facility] ([facility]) [address] , [place], [address], 11/24/2024 11:27:22 11/24/19 25 11/24/2024 CBC NO DIFF (HEMO GRAM) RBC 3.8 M/mm3 4.2-6. 4 low Not Available [facility] ([facility]) [address] , [place], [address], 11/24/2024 11:27:22 11/24/19 25 11/24/2024 CBC NO DIFF (HEMO GRAM) HGB 11.8 gm/dL 12.5-1 6.0 low Not Available [facility] ([facility]) [address], [place], [address], 11/24/2024 11:27:22 11/24/19 25 11/24/2024 CBC NO DIFF (HEMO GRAM) HCT 36.8 % 37.0-4 7.0 low Not Available [facility] ([facility]) [address], [place], [address], 11/24/2024 11:27:22 11/24/19 25 11/24/2024 CBC NO DIFF (HEMO GRAM) MCV 95.8 fL 78-100 Not Available [facility] ([facility]) [address], [place], [address], 11/24/2024 11:27:22 11/24/19 25 11/24/2024 CBC NO DIFF (HEMO GRAM) MCH 30.7 pg 27-31 Not Available [facility] ([facility]) [address], [place], [address], 11/24/2024 11:27:22 11/24/19 25 11/24/2024 CBC NO DIFF (HEMO GRAM) MCHC 32.1 g/dL 32-36 Not Available [facility] ([facility]) [address], [place], [address], 11/24/2024 11:27:22 11/24/19 25 11/24/2024 CBC NO DIFF (HEMO GRAM) RDW 15.1 % 11.5-1 4.0 high Not Available [facility] ([facility]) [address] [place], [address], 11/24/2024 11:27:22 11/24/19 25 11/24/2024 CBC NO DIFF (HEMO GRAM) platelet count 302 K/uL 150-45 0 Not Available [facility] ([facility]) [address] [place], [address], 11/24/2024 11:27:22 11/24/19 25 11/24/2024 CBC NO DIFF (HEMO GRAM) MPV 10.2 fL 6-9.5 high Not Available [facility] ([facility]) [address], [place], [address], 11/24/2024 11:27:22 11/24/19 25 11/24/2024 CBC NO DIFF (HEMO GRAM) manual differential NO Not Available [facility] ([facility]) [address], [place], [address], 11/24/2024 11:27:22 11/24/19 25 11/24/2024 COMP METAB OLIC PANEL sodium 142 mmol/ L 136-14 5 Not Available [facility] ([facility]) [address], [place], [address], 11/24/2024 14:26:55 11/24/19 25 11/24/2024 COMP METAB OLIC PANEL potassium 4.2 mmol/ L 3.6-5. 0 Not Available [facility] ([facility]) [address], [place], [address], 11/24/2024 14:26:55 11/24/19 25 11/24/2024 COMP METAB OLIC PANEL chloride 106 mmol/ L 98-107 Not Available [facility] ([facility]) [address], [place], [address], 11/24/2024 14:26:55 11/24/19 25 11/24/2024 COMP METAB OLIC PANEL carbon dioxide 24.5 mmol/ L 21.0-3 2.0 Not Available [facility] ([facility]) [address], [place], [address], 11/24/2024 14:26:55 11/24/19 25 11/24/2024 COMP METAB OLIC PANEL anion gap 15.7 Not Available [facility] ([facility]) [address], [place], [address], 11/24/2024 14:26:55 11/24/19 25 11/24/2024 COMP METAB OLIC PANEL glucose 125 mg/dL 70-120 high Not Available [facility] ([facility]) [address], [place], [address], 11/24/2024 14:26:55 11/24/19 25 11/24/2024 COMP METAB OLIC PANEL BUN 14 mg/dL 7-18 Not Available [facility] ([facility]) [address], [place], [address], 11/24/2024 14:26:55 11/24/19 25 11/24/2024 COMP METAB OLIC PANEL creatinine 1.0 mg/dL 0.6-1. 3 Not Available [facility] ([facility]) [address], [place], [address], 11/24/2024 14:26:55 11/24/19 25 11/24/2024 COMP METAB OLIC PANEL glomerular filtration rate 67 mlper min 60- GFR LIMIT ATION : The eGFR equat ion CKD-E PI 2020 is not appli cable for pedia tric patie nts or great er than 90 years of age. The follo wing condi tions may alter the GFR resul t: extre mes in body size, malnu triti on or obesi ty, skele bryanna muscl e disea se, parap legia or quadr ipleg ia, veget harjinder diet or rapid ly hale ing kiney funct ion. Not Available [facility] ([facility]) [address] , [place], [address], 11/24/2024 14:26:55 11/24/19 25 11/24/2024 COMP METAB OLIC PANEL total protein 7.3 g/dL 6.4-8. 2 Not Available [facility] ([facility]) [address], [place], [address], 11/24/2024 14:26:55 11/24/19 25 11/24/2024 COMP METAB OLIC PANEL albumin 3.3 g/dL 3.4-5. 0 low Not Available [facility] ([facility]) [address], [place], [address], 11/24/2024 14:26:55 11/24/19 25 11/24/2024 COMP METAB OLIC PANEL globulin 4.0 Not Available [facility] ([facility]) [address], [place], [address], 11/24/2024 14:26:55 11/24/19 25 11/24/2024 COMP METAB OLIC PANEL alb/glob ratio 0.8 0.7-2 Not Available [facility] ([facility]) [address] , [place], [address], 11/24/2024 14:26:55 11/24/19 25 11/24/2024 COMP METAB OLIC PANEL calcium 9.8 mg/dL 8.5-10 .5 Not Available [facility] ([facility]) [address] , [place], [address], 11/24/2024 14:26:55 11/24/19 25 11/24/2024 COMP METAB OLIC PANEL bilirubin total 0.20 mg/dL 0.10-1 .00 Not Available [facility] ([facility]) [address] , [place], [address], 11/24/2024 14:26:55 11/24/19 25 11/24/2024 COMP METAB OLIC PANEL AST (SGOT) 15 U/L 0-37 Not Available [facility] [address] , [place], [address], 11/24/2024 14:26:55 11/24/19 25 11/24/2024 COMP METAB OLIC PANEL ALT (SGPT) 28 U/L 0-65 Not Available [facility]) [address] [facility], [place], [address], 11/24/2024 14:26:55 11/24/19 25 11/24/2024 COMP METAB OLIC PANEL alk phosphatase 170 U/L 46-116 high Not Available [facility] ([facility]) [address] [facility], [place], [address], 11/24/2024 14:26:55 12/14/19 25 12/22/2024 PATHO LOGY SPECI MEN pathology specimen SEE YOLANDA ENRIQUE Not Available [facility] ([facility]) [address] [facility], [place], [address], 12/22/2024 14:20:19 10/20/19 25 10/18/2024 NM, gastr ic empty ing scan [facility] [address] [place] [address] Phone: Fax: Name: FRANNIE THOMPSON Exam Date: 2023 : 970 Age 54 years Gender : F Access ion: [id number] Physic rosa m: CORNELIO COOPER Facili ty: [facility] Facili ty HSV: Outpat ient Exam: GASTRI C EMPTYI NG STUDY EXAM DESCRI PTION: GASTRI C EMPTYI NG STUDY CLINIC AL HISTOR Y: 54 years Female , nausea COMPAR ARACELY: None TECHNI QUE: Nuclea r medici ne gastri c emptyi ng study perfor med after patien t consum ed a meal mixed with techne tium 99m sulfur colloi d. Images obtain ed over 4 hours. FINDIN GS: At 1 hour there is 62% emptyi ng with 38% retent ion. At 2 hours there is 84% emptyi ng with 16% retent ion. At 4 hours there is 100% emptyi ng with 0% retent ion. IMPRES KASHIF: Normal gastri c emptyi ng. Electr onical ly signed by:Lokesh Sanchez MD01/0 11/2024 05:29 PM EST RP Workst ation: [id number] Dictat ed By: Natalia Sanchez Transc ribed By: Transc ribed On: 2023 12:08 PM Electr onical ly signed by: Natalia Sanchez 2023 Thank you for referr FRANNIE Mantilla to [facility]. Legall y authen ticate d by ALISHA Neves 2023- 12:08: 17 CC'ed Logic: Orderi ng Provid er: JONH MCKEON Attend ing Provid er: JONH MCKEON Referr ing Provid er: JONH MCKEON Admitt ing Provid er: JONH MCKEON [facility] [address], [place], [address], 12/24/2024 12:45:26 11/30/19 25 11/30/2024 medic al clear ance* No observ ation record ed. [email or web address] [address], [address], 12/01/2024 09:59:03 Result Notes None recorded. Problems Name Problem SNOMED Code Status Onset Date Resolution Date Notes Provider Name and Address Organization Details Recorded Time Gastroesophag eal reflux disease without esophagitis 975538127 Active 2023 Cornelio Cooper PA-C [address], [place], [address] , [facility] - [facility] & [place] 4 10:33:08 Regurgitation of gastric content 81840772 Active 2023 Cornelio Cooper PA-C [address], [place], [address] , [place] - [facility] & [place] 4 10:33:35 Nausea 925033344 Active 2023 Cornelio Cooper PA-C [address], [place], [address] , [place] 4 10:33:43 Chronic idiopathic constipation 83269026 Active 2023 Cornelio Cooper PA-C [address], [place], [address] , [place] & [place] 4 10:35:21 Constipation alternates with diarrhea 894530262 Active 2023 Cornelio Cooper PA-C [address], [place], [address] , [place] [facility] [place] 4 10:36:31 Biliary dyskinesia 227395642 Active 2024 Cornelio Cooper PA-C [address] , [place], [address] , [place] - [facility] - [facility] & [place] 5 13:26:10 Dysphagia 52811424 Active 2024 Cornelio Cooper PA-C [address] , [place], [address] , [place] [facility] & [place] 5 13:16:18 Diverticuliti s of intestine 701552198 Active 2024 Cornelio Cooper PA-C [address] [facility], [place], [address] , [place] & [place] 5 15:57:22 Arthritis 4093054 Active 2022 Basia barney, [place] 3 14:48:04 Diabetes mellitus 29962237 Active 2022 Basia Palumbo null, [place] 3 14:48:08 Hypercholeste rolemia 82389241 Active 2022 Basia Palumbo null, [place] 3 14:48:19 Fibromyalgia 185586989 Active 2022 Basia Palumbo null[place] 3 14:48:26 Irritable bowel syndrome 31338230 Active 2022 Basia Palumbo null, [place] [facility] & [place] 3 14:48:30 Anemia 030207263 Active 2022 Britany Mujica null, [place] & [place] 3 14:03:28 Hypertensive disorder 99074099 Active 2022 Britany Mujica null, [place] [facility] & [place] 3 14:03:37 Cardiac pacemaker in situ 067844696 Active 2022 Britany Mujica null, [place] & [place] 3 14:04:04 Anxiety 85340874 Active 2022 Britany Mujica null[place] 3 14:04:14 Asthma 137272189 Active 2022 Britany Mujica null, [place] & [place] 3 14:04:20 Seizure 89750439 Active 2022 Britany Mujica null, [place] [place] 3 14:04:25 Problem Notes None recorded. Procedures Surgical History Date Name Laterality Status Provider Name and Address Organization Details Recorded Time 025 Colonoscopy completed Thompson Patel [place] - [facility] [place] & [place] 01/25/2025 12:58:03 025 cholecystectomy completed Katie Falcon [place] - [place] & [place] 12/27/2024 10:19:28 024 completed Danaysa [place] - [place] & [place] 01/25/2025 12:59:25 024 Most Recent Bone Density completed Danaysa Carey [place] - [place] & [place] 01/25/2025 12:59:25 024 Other completed Danay Carey [place] - [place] [facility] & [place] 01/25/2025 12:59:43 024 Joint Replacement [facility]ay [place] [facility] [place] 01/25/2025 12:59:43 023 Cystoscopy-Female completed Jordan Gil Jr, MD [address] [place] [address], [address] [facility], [place], [address], [place] [facility] [place] 03/06/2023 15:35:18 023 Date of Last Colonoscopy completed Danay [place] - [place] - [place] & [place] 01/25/2025 12:59:25 023 Other completed Danay [place] [facility] [place] 01/25/2025 12:59:43 023 Pacemaker/Defibril lator completed Danay [place] & [place] 01/25/2025 12:59:43 023 Abdominal Surgery completed Danya Carey [place] - [place] - [place] & [place] 01/25/2025 12:59:43 022 Cardiovascular Surgery completed Danay [place] [facility] [place] 01/25/2025 12:59:43 020 total replacement of hip completed Basia NIEVES - [place] - [place] & [place] 12/03/2022 15:14:14 020 Head or Neck Surgery completed Danay [place] - [place] & [place] 01/25/2025 12:59:43 020 Hip Surgery completed Danay [place] [facility] [place] 01/25/2025 12:59:43 019 Joint Replacement completed Danay [place] [facility] & [place] 01/25/2025 12:59:43 019 Hip Surgery completed Danay [place] [facility] & [place] 01/25/2025 12:59:43 016 EGD/Endoscopy completed Basia NIEVES - [facility] - [place] & [place] 12/03/2022 15:14:01 014 Colonoscopy completed Basia Tavares LPMACARIO [facility] & [place] 12/03/2022 15:13:52 004 Date of Last Pap Smear completed Danaysa Carey LIZBETH Tavares LPMACARIO [facility] & [place] 01/25/2025 12:59:25 975 Tonsillectomy/Jonathan oidectomy completed Danaysa Carey LIZBETH Tavares LPMACARIO [facility] & [place] 01/25/2025 12:59:43 neck repair completed Britany Tavares MAGED [facility] & [place] 03/06/2023 14:05:26 procedure on knee completed Denyskannan Mujica LIZBETH Tavares LPMACARIO [facility] & [place] 03/06/2023 14:05:44 Total Hysterectomy completed Sanjaywesly osei Guanako LIZBETH Tavares LPMACARIO [facility] & [place] 03/06/2023 14:05:56 cardiac pacemaker procedure completed Denyskannan Mujica LIZBETH Tavares LPMACARIO [facility] & [place] 03/06/2023 14:06:07 pain assessment completed Britany LYNNE [facility] & [place] 03/06/2023 14:06:20 Imaging Results Imaging Date Name Status LastModified by Organiz ation Details LastModified Time 10/18/2024 NM, gastric emptying scan completed [email or web address] [facility] [address] [facility], [place], [address], 12/24/2024 12:45:26 11/30/2024 medical clearance* completed [email or web address] [address], [address], 12/01/2024 09:59:03 Procedure Notes None recorded. Medical Equipment None Reported. Allergies Allergen ID Allergen Name Allergen Category Reaction Reaction Severity Criticality Documentation Date Start Date Code Code System Note Provider Name and Address Organization Details Recorded Time 554823 meclizine medicatio n Not available Not available Not available 08/24/2023 6676 RxNorm LIZ[place]ETH Baker [facility] & [place] 10:59:14 [address]323 Benadryl medicatio n Not available Not available Not available 12/03/2022 84764 7 RxNorm LIZBETH Rodriguez [facility] & [place] 3 14:47:43 26043 tetanus and diphtheri a toxoids Not available Not available Not available Not available 12/03/2022 33456 UNK LIZBETH Rodriguez [facility] & [place] 3 14:47:55 85662 adhesive environme nt,medica tion Not available Not available Not available 03/06/2023 93491 UNK LIZBETH Muñoz [facility] & [place] 3 13:49:50 Medications Name Sig Start Date Stop Date Status Note LastModified by Organization Details LastModified Time clindamycin /mupirocin 100/20mg topical capsule (xylitol) [22428] MIX THE CONTENTS OF 1 CAPSULE WITH [...] Not Available No t Available 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 Not Available Not Available Not Available [...] active Not Available Not Available Not Available [facility] ODT 75 mg disintegrat ing tablet 03/16 completed Not Available Not Available Not Available [facility] ODT 03/16 completed Not Available Not Available [...] height Body mass index (BMI) Body weight Oxygen saturation Oxygen saturation in Arterial blood by Pulse oximetry Heart rate Body temperature Heart rate Systolic blood pressure Diastolic blood pressure Provider Name and Address Organization Details Last Updated DateTime 4 170.18 cm 42.7 kg/m2 327669. 56 g 97 % 97 % 97 /min 98.1 [degF] 94 /min 161 mm[Hg] 83 mm[Hg] Danay [place] - [facility] & [place] 4 10:17:17 Date Recorded Body height Body mass index (BMI) Body weight Body temperature Oxygen saturation Oxygen saturation in Arterial blood by Pulse oximetry Heart rate Systolic blood pressure Diastolic blood pressure Provider Name and Address Organization Details Last Updated DateTime 5 170.18 cm 43.7 kg/m2 278011. 19 g 97.3 [degF] 97 % 97 % 70 /min 136 mm[Hg] 91 mm[Hg] Thompson rabago [place] - [facility] & [place] 5 13:00:01 Date Recorded Body height Body mass index (BMI) Body weight Body temperature Heart rate Systolic blood pressure Diastolic blood pressure Provider Name and Address Organization Details Last Updated DateTime 5 170.18 cm 43.8 kg/m2 974919. 15 g 97.7 [degF] 73 /min 128 mm[Hg] 88 mm[Hg] [facility] [place] [facility] [place] 5 09:56:54 Date Recorded Body height Body mass index (BMI) Body weight Body temperature Heart rate Systolic blood pressure Diastolic blood pressure Provider Name and Address Organization Details Last Updated DateTime 5 170.18 cm 43.6 kg/m2 243531. 48 g 96.6 [degF] 73 /min 126 mm[Hg] 76 mm[Hg] [facility] [place] [facility] [place] 5 10:16:07 Date Recorded Body height Body mass index (BMI) Body weight Heart rate Heart rate Oxygen saturation Oxygen saturation in Arterial blood by Pulse oximetry Body temperature Systolic blood pressure Diastolic blood pressure Provider Name and Address Organization Details Last Updated DateTime 5 170.18 cm 44.1 kg/m2 435297. 97 g 73 /min 72 /min 97 % 97 % 98.2 [degF] 142 mm[Hg] 80 mm[Hg] Danay Carey [facility] & [place] 5 13:00:07 Social History Question Answer Notes LastModified by Organizat ion Details LastModified Time Tobacco Smoking Status Current Every Day Smoker [facility] [place] 12/03/2022 15:13:21 Do You Have An Advance Directive? No [email or web address] Information not available 01/25/2025 What Is Your Level Of Alcohol Consumption? None [email or web address] Information not available 12/03/2022 Are You Blind Or Do You Have Difficulty Seeing? No [email or web address] Information not available 01/25/2025 What Was The Date Of Your Most Recent Tobacco Screening? 08/15/2024 Information not available 01/25/2025 Are You Passively Exposed To Smoke? No [email or web address] Information no t available 01/25/2025 Do You Or Have You Ever Used Smokeless Tobacco? Never Used Smokeless Tobacco [email or web address] Information not available 01/25/2025 How Much Tobacco Do You Smoke? 1 PPW [email or web address] Information not available 01/25/2025 Do You Feel Stressed (tense, Restless, Nervous, Or Anxious, Or Unable To Sleep At Night)? [id number] [email or web address] Information not available 01/25/2025 Do You Use Any Illicit Or Recreational Drugs? No [email or web address] Information not available 12/03/2022 How Many Years Have You Smoked Tobacco? 31 [email or web address] Information not available 01/25/2025 Sex: Female Functional Status Question Answer Note LastModified by Organization D etails LastModified Time What is your exercise level? None [email or web address] Information not available 01/25/2025 Mental Status None recorded. Family History Relationship Description Onset Age of this Age Resolved Age Notes LastModified by Organization Details LastModified Time Mother Hypertensive disorder [email or web address] Not available 12/03 15:12:55 Father Coronary arterioscler osis [email or web address] Not available 2024 12:46:07 Father Hypertensive disorder [email or web address] Not available 03/2023 11:00:03 Father Heart disease [email or web address] Not available 03/2023 11:00:12 Brother Coronary arterioscler osis [email or web address] Not available 2024 12:46:07 Brother Diabetes mellitus [email or web address] Not available 2024 12:46:07 Paternal Grandmother Obesity [email or web address] Not available 1 10/24/2022 10:59:38 Maternal Grandfather [...] completed Katie Falcon null, [place] [facility] & [place] 11/24/2024 10:00:11 zoster recombinant 5 completed Katie Falcon null[place] [facility] & [place] 11/24/2024 10:01:26 pneumococcal, unspecified formulation 3 completed Katie Falcon null[place] [facility] & [place] 11/24/2024 10:01:07 Influenza, split virus, quadrivalent, preservative 2 completed Danay Carey null, [facility] & [place] 01/25/2025 12:59:55 COVID-19, mRNA, LNP-S, PF, 30 mcg/0.3 mL dose 1 completed Danay Carey null, [place] - [facility] & [place] 01/25/2025 12:59:55 COVID-19, mRNA, LNP-S, PF, 30 mcg/0.3 mL dose 1 completed Danay Carey null, [place] [facility] & [place] 01/25/2025 12:59:55 Pneumococcal conjugate PCV20, polysaccharide [id number] conjugate, adjuvant, PF 2 completed Danay Carey null, [place] - [facility] & [place] 01/25/2025 12:59:55 Influenza, split virus, trivalent, preservative 9 completed Danay Carey null, [place] - [facility] & [place] 01/25/2025 12:59:55 Influenza, split virus, quadrivalent, PF 3 completed Danay Carey null, [place] - [facility] & [place] 01/25/2025 12:59:55 Past Encounters Encounter ID Performer Location Encounter Start Date Encounter Closed Date Diagnosis/Indication Diagnosis SNOMED-CT Code Diagnosis ICD10 Code Diagnosis Note [id number] JOSE [facility] [address] [facility],[place] [address] 12/03/2022 14:14:46 12/05/2022 12:48:30 Dysphagia 76784008 R13.10 Given recent history of dysphagia, recommend EGD at time of colonoscop y for further evaluation and dilatation if warranted. Pt is scheduled for EGD/Colon 01/14 @ 9:00 AM. Patient reminded to stop ozempic 2 weeks prior to scopes. [id number] Jordan Gil Jr, MD [facility] [address] [address] 03/06/2023 13:27:03 03/06/2023 15:14:33 Difficulty passing urine [id number] R39.198 52-year-ol d white female with multiple medical problems. She gives a six-month history of difficulty starting his stream and then requiring persistent pressure to keep her stream going. Catheteriz ation residual today was only 20 cc. Cystoscopy was performed showing no bladder or urethral abnormalit ies. Patient was reassured that she is emptying well in her bladder has no suspicious findings. We discussed that her bladder may not contract as well as she would like. She is on baclofen for some back pain. we discussed coude maneuver instead of stranding her abdominal muscles to void. She is to return if she has any worsening of symptoms. [id number] Kieran Anna MD [facility] [address] [facility] [address] [place] [address] 03/16/2024 09:31:51 03/16/2024 10:12:15 History of sick sinus syndrome [id number] 53703 Z86.79 with [employer] pacemaker implant 08/12/22. normally functionin g, will follow up the interrogat ion. Cardiac pa cemaker in situ 914434601 Z95.0 [employer]. Essential hypertension 52683110 I10 controlled continue medication s Dyslipidemia 762277221 E 78.5 on statin follow up fasting lipid profile. Cigarette smoker 4780042 7 F17.210 strongly encouraged to quit and offered help. Sleep apnea 47669438 G47 .30 On CPAP Obesity 986857468 E66.9 BMi 45. recommend weight loss. [id number] Cornelio Cooper PA-C [facility] [address] [place] [address] 08/17/2024 10:07:21 08/17/2024 10:59:29 Gastroesophageal reflux disease without esophagitis 457275965 K21.9 -I have recommende d she change the timing of Pantoprazo le to 30 minutes before morning and evening meal.-Rx provided for famotidine to use as needed for breakthrou gh symptoms. Regurgitat ion of gastric content 44624934 R11.10 -Obtain gastric emptying study. Continue PPI. Nausea 107035045 R11.0 Chronic. Refill provided for ondansetro n-Obtain Gastric emptying study to evaluate for possible diabetic gastropare sis. Constipati on alternates with diarrhea 212668913 K59.00 More constipati on predominat e. Possible with overflow. Start laxative therapy per below. Chronic id iopathic constipation 37742267 K59.04 Previously refractory to Miralax and Senna. Start Linzess 145 mcg p.o. once daily. History of polyp of colon 300514482 Z86.0100 -Recommend surveillan ce colonoscop y 02/2028. Last exam was 02/[address] Hatfield with hyperplast ic polyp removed. She recalls a history of multiple polyps removed previous to this. History of diverticulitis [id number] 80391 Z87.19 -Last episode was several years ago. Notes multiple episodes, previously hospitaliz ed at [facility].-High fiber diet recommende d.-Measure s to avoid constipati on discussed- Colonoscop y last year showed diverticul osis. [id number] Cornelio Cooper PA-C [facility] [address] [place] [address] 11/15/2024 12:34:01 11/15/2024 13:20:03 Chronic idiopathic constipation 66247065 K59.04 Previously refractory to Miralax and Senna. Start Linzess 145 mcg p.o. once daily.-I have provided her with a paper prescripti on due to her pharmacy not previously receiving the eScript.-S amples were provided in the office today (#8) Gastroesop hageal reflux disease without esophagitis 925784056 K21.9 Continue Pantoprazo le once daily and famotidine at bedtime. Symptoms are stable. Nausea 073629233 R11.0 Chronic. Continue ondansetro n, refill provided.- Gastric emptying study was normal 10/18/2024 . No findings on prior EGD to explain nausea.-Sy mptoms appear consistent with biliary dyskinesia . She reported unremarkab le GBUS and HIDA scan last year at [facility], however she noted experienci ng symptom reproducti on with administra tion of CCK.Will refer to general surgery for possible elective cholecyste ctomy. Will request imaging records from [facility]. History of polyp of colon 175314156 Z86.0100 -Recommend surveillan ce colonoscop y 02/2028. Last exam was 02/[address] Hatfield with hyperplast ic polyp removed. She recalls a history of multiple polyps removed previous to this. Biliary dyskinesia 2007 K82.8 [id number] Sakina Tran MD [facility] [address] [place] [address] 11/24/2024 09:48:00 11/24/2024 10:39:05 Biliary dyskinesia 322877964 K82.8 The patient seems to have symptomati c biliary dyskinesia , although it sounds as if she also has gallstones . I have scheduled the patient for robotic assisted laparoscop ic multiport cholecyste ctomy. Informed consent was obtained. Risks and benefits of the procedure, including but not limited to, bleeding, infection, damage to surroundin g structures and ongoing symptoms were discussed. Standard of care efforts are taken to minimize risks. Typical hospital stay and recovery were reviewed. The typical postoperat chin pain regimen and avoidance of narcotics were discussed. The patient verbalized understand ing of the plan including the risks and benefits. Appropriat e preoperati ve testing as clinically indicated were ordered as a part of this patient's care. Cardiac pa jose in situ [id number] Z95.0 Will obtain cardiac risk stratifica tion preoperati vely [id number] Sakina Tran MD [facility] [address] [facility] [address] [place] [address] 12/27/2024 10:08:07 12/27/2024 10:55:07 Chronic cholecystitis with calculus 59353037 K80.10 stable postop. Patient does have a reaction to the Monocryl suture. We discussed that this should continue to improve with conservati ve management . She can use an over-the-c ounter antihistam ine as needed. She has no restrictio ns from a surgical standpoint . We discussed that the nausea should continue to improve with time. Skin react ion to suture material 722505185 T88.8XXA R23.9 [id number] Cornelio Cooper PA-C [facility] [address] [facility] [address] [place] [address] 01/25/2025 12:45:40 01/25/2025 13:20:02 Chronic idiopathic constipation 30979435 K59.04 Continue Linzess 145 mcg once daily. Improved. Gastroesop hageal reflux disease without esophagitis 245282455 K21.9 -Not optimally controlled . Stop pantoprazo le. Start Dexlansopr azole 60 mg p.o. once daily. Nausea 740696091 R11.0 Resolved following recent cholecyste ctomy. GES was normal 10/18/24. History of polyp of colon 504982771 Z86.0100 -Repeat surveillan ce colonoscop y 12/2029. Dysphagia 68032660 R13.1 0 She describes both oropharyng eal and esophageal dysphagia symptoms. Empiric dilation performed in 2022 at [facility]. She is unclear if this was beneficial .-Obtain esophagram and MBS. Consider repeat EGD. Health Concerns Section Related Observation LastModified by Organization Detai ls LastModified Time None Recorded Concern Status LastModified by Organization Details LastModified Time None Recorded Advance Directives Directive N: Payers Encounter Date Sequence Insurance Name Policy Number Policy Victoria Covered Member ID Victoria Member ID Guarantor Name 08/17/2024 1 [place] [id number] Frannie Gambleood [id number] Frannie Nuñez 11/15/2024 1 [employer] [facility] (MEDICAID HMO) Frannie Villalobos Nuñez [id number] Frannie Villalobos Nuñez 11/24/2024 1 [employer] [facility] (MEDICAID HMO) Frannie Villalobos Nuñez [id number] Frannie Villalobos Nuñez 12/27/2024 1 [employer] [facility] (MEDICAID HMO) Frannie Villalobos Nuñez [id number] Frannie Villalobos Nuñez 01/25/2025 1 [employer] [facility] (MEDICAID HMO) Frannie Villalobos Nuñez [id number] Frannie Villalobos Nuñez Notes Date Note Type Note Provider Name and Address Organization Details Recorded Time 08/17/2024 text/html Very pleasant 54-year-old female who was referred to establish care for chronic GI issues including chronic nausea, GERD, regurgitation, and alternating constipation and diarrhea. She states that the referring provider is no longer her PCP. She was previously established with GI at [facility]. 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 She states she has had pre-cancerous polyps in the past and 5 year repeat was recommended. Pathology from that exam showed reflux related changes of the mid and distal esophagus and reactive gastropathy.-Regardin g GERD, she is taking Pantoprazole twice daily. She notes intermittent breakthrough heartburn occurring a few days per week. She typically does not take PPI before meals.-Regarding Nausea: She manages this with use of Zofran as needed, typically using it a couple of days weekly. She feels that lactose containing foods make her nausea worse. She has switched to almond milk with improvement. She also has noted that peanut butter triggers nausea as well. She is diabetic, has not undergone gastric emptying study previously. She recalls gallbladder testing in the past few years that was normal. She has been prescribed GLP-1 agonist in the past, but stopped due to side effects.-Regarding alternating bowel habits, she notes that constipation is more prevalent. She has taken Miralax in the past without much improvement. She denies bloody stools. She states her PCP recently check celiac serologies and was told that they were unremarkable. Cornelio Cooper PA-C [address], [place], [address], [facility] - [facility] - [place] & [place] 08/17/2024 11:44:06 11/15/2024 text/html CURRENT (11/15/24 ): Ms. Nuñez returns to the office today for follow-up regarding constipation, GERD, and chronic nausea. She had a recent gastric emptying study was normal.-Regarding constipation, we ordered Linzess 145 mcg p.o. daily, but she states that her pharmacy did not receive the Rx so she was unable to start it. She has contined to experience constipation. -Regarding GERD, her insurance has stopped covering Pantoprazole twice daily. She is currently taking pantoprazole once daily and we added famotidine at bedtime. This is working well at managing her heartburn. -Regarding chronic nausea: She still has trouble with this. She takes Zofran around 5 times per week. Nausea seems to be worse after lunch and dinnerm and she has RUQ discomfort following meals as well. Her gastric emptying study was normal last month. She recalls having a GBUS and HIDA scan at [facility] last year that she was told was normal. She tells me that she did experience quite a bit of nausea during the HIDA scan. Cornelio Cooper PA-C [address], [place], [address], [place] - [facility] & [place] 11/15/2024 13:28:38 11/24/2024 text/html 54-year-old misbah n referred for chronic nausea. Patient states that she has had nausea for some time, this is worse after eating, specifically foods that are fatty or greasy. She also has some associated right upper quadrant pressure. She is undergone endoscopy and gastric emptying study which were normal. She had HIDA scan in March 2024 showing ejection fraction of 73%. Patient states that this reproduced her symptoms. She also states that she was told at some point in the past that she has gallbladder sludge. Patient does have a pacemaker, followed up with her manager access within the past several months. Denies chest pain or SOA Sakina Tran MD [address], [place], [address], [place] - [facility] & [place] 11/24/2024 11:08:33 12/27/2024 text/html Two weeks status post robotic cholecystectomy. Pathology showed gallstones with chronic cholecystitis. She feels well overall, has some itching surrounding her incision sites. She has some mild nausea postprandially which is starting to improve. Sakina Tran MD [address], [place], [address], [facility] 12/27/2024 11:41:25 01/25/2025 text/html CURRENT (01/25/25) : Ms. Nuñez returns to the office today for follow-up. She underwent cholecystectomy in November for suspected biliary dyskinesia. Her nausea has been much improved since that time. She also underwent surveillance colonoscopy last month with 1 polyp resected (tubular adenoma without dysplasia).Today, her primary complaint is problems with swallowing. She describes both sensation of foods slow to go down in the mid sternal region, particular when eating meats and breads. She also complains of trouble initiating swallows in the oropharynx and often has coughing spells when eating both solids and liquids. She underwent empiric dilation by Dr. Hatfield a couple of years ago and does not recall if it was much helpful or not. She is having occasional breakthrough heartburn despite using pantoprazole once daily. Milk has seemed to make her heartburn worse. Her constipation is improved with recent addition of Linzess. Cornelio Cooper PA-C [address], [place], [address], [facility] 01/25/2025 22:00:35 OBGyn Episode No OBEpisode recorded.
--- OUTSIDE RECORDS SUMMARY | 2025-02-09 09:00 | XMS_ITS | Continuity of Care Document ---
Author Organization 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 Referral None recorded. Procedures None recorded. Surgeries None recorded. Imaging XR, esophagra m [address] Scheduling Department -New Scheduling Process, [address] [facility] [address], [place], [address], 02/08/2025 14:11:12 [place], modified barium swallow study [address] Scheduling Department -New Scheduling Process, [address] [facility] [address], [place], [address], 02/01/2025 08:13:31 Medication Orders Linzess 145 mcg capsule 2024 025 LOLIS One[place] [facility], [address] [facility] [address], [place], [id number], 01/25/2025 16:39:56 dexlansop razole 60 mg capsule,b iphase delayed release 2024 025 LOLIS One[place] [facility], [address] [address] [place], [id number], 01/25/2025 14:14:10 Patient TargetsNo targets recorded. Patient InstructionsNo instructions recorded. Reason for Referral None Reported. Problems Name Problem SNOMED Code Status Onset Date Resolution Date Notes Provider Name and Address Organization Details Recorded Time Gastroesophag eal reflux disease without esophagitis 398248204 Active 2023 Cornelio Cooper PA-C [address], [facility] [address] , [facility] - [facility] & [place] 10:33:08 Regurgitation of gastric content 22701943 Active 2023 [facility] [address] [facility] [address] , [facility] - [facility] & [place] 10:33:35 Nausea 266821341 Active 2023 Cornelio Cooper PA-C [address] [facility] [address] , [facility] - NT [facility] & [place] 10:33:43 Chronic idiopathic constipation 53322379 Active 2023 Cornelio Cooper PA-C [address] [facility] [address] , [place] - [facility] & [place] 10:35:21 Constipation alternates with diarrhea 370805066 Active 2023 Cornelio Cooper PA-C [address] [address] , [place] - [facility] & [place] 10:36:31 Biliary dyskinesia 727836653 Active 2024 YAMILET Moeller[address], [facility] [address] , [place] - [facility] - [place] & [place] 5 13:26:10 Dysphagia 43868517 Active 2024 Cornelio Cooper PA-C [address], [place], [address] , [place] [place] & [place] 5 13:16:18 Diverticuliti s of intestine 686491940 Active 2024 Cornelio Cooper PA-C [address], [place], [address] , [place] [facility] [place] & [place] 5 15:57:22 Arthritis 1203454 Active 2022 Basia barney, [place] - [place] & [place] 3 14:48:04 Diabetes mellitus 89250290 Active 2022 Basia Palumbo null[place] & [place] 3 14:48:08 Hypercholeste rolemia 10402788 Active 2022 Basia Palumbo [place] & [place] 3 14:48:19 Fibromyalgia 639790749 Active 2022 Basia Pal[place] & [place] 3 14:48:26 Irritable bowel syndrome 30664629 Active 2022 Basia Palumbo [place] & [place] 3 14:48:30 Anemia 697119765 Active 2022 Britany Mujica null[place] & [place] 3 14:03:28 Hypertensive disorder 15445937 Active 2022 Britany Mujica null[place] & [place] 3 14:03:37 Cardiac pacemaker in situ 003466196 Active 2022 Britany [place]uj[place] & [place] 3 14:04:04 Anxiety 36185609 Active 2022 Britany [place]uj[place] null[place] & [place] 3 14:04:14 Asthma 906301255 Active 2022 Brit[place] barney, [place] [facility] & [place] 3 14:04:20 Seizure 17251986 Active 2022 Brit[place] [facility] [place] 3 14:04:25 Problem Notes None recorded. Procedures Surgical History Date Name Laterality Status Provider Name and Address Organization Details Recorded Time 025 Colonoscopy completed Thompson Patel [place] - [facility] & [place] 01/25/2025 12:58:03 025 cholecystectomy completed Katie Falcon [place] [facility] [place] [facility] & [place] 12/27/2024 10:19:28 024 completed Danay [place] [facility] & [place] 01/25/2025 12:59:25 024 Most Recent Bone Density completed Danay [place] [facility] & [place] 01/25/2025 12:59:25 024 Other completed [place]ay [place] [facility] & [place] 01/25/2025 12:59:43 024 Joint Replacement [place] Danay [place] [facility] [facility] & [place] 01/25/2025 12:59:43 023 Cystoscopy-Female completed Jordan Gil Jr, MD [address] [place] [address], [address], [place], [address] [place] [place] & [place] 03/06/2023 15:35:18 023 Date of Last Colonoscopy completed Danay [place] [facility] & [place] 01/25/2025 12:59:25 023 Other completed Danay [place] & [place] 01/25/2025 12:59:43 023 Pacemaker/Defibril lator [place]ay [place] [facility] [facility] & [place] 01/25/2025 12:59:43 023 Abdominal Surgery completed Danay [place] & [place] 01/25/2025 12:59:43 022 Cardiovascular Surgery completed Danay [place] & [place] 01/25/2025 12:59:43 020 total replacement of hip completed Basia NIEVES - [place] - [place] & [place] 12/03/2022 15:14:14 020 Head or Neck Surgery completed Danay [place] & [place] 01/25/2025 12:59:43 020 Hip Surgery completed Danay [place] & [place] 01/25/2025 12:59:43 019 Joint Replacement completed Danay [place] & [place] 01/25/2025 12:59:43 019 Hip Surgery completed Danay [place] 01/25/2025 12:59:43 016 EGD/Endoscopy completed Basia NIEVES - [facility] - [place] & [place] 12/03/2022 15:14:01 014 Colonoscopy completed Basia NIEVES - [facility] - [place] & [place] 12/03/2022 15:13:52 004 Date of Last Pap Smear completed Danay [place] - [facility] - [place] & [place] 01/25/2025 12:59:25 975 Tonsillectomy/Jonathan oidectomy completed Danay [place] [facility] & [place] 01/25/2025 12:59:43 neck repair completed Britany NIEVES - [facility] - [place] & [place] 03/06/2023 14:05:26 procedure on knee completed Britany NIEVES - [facility] - [place] & [place] 03/06/2023 14:05:44 Total Hysterectomy completed Elroy NIEVES - [facility] - [place] & [place] 03/06/2023 14:05:56 cardiac pacemaker procedure completed Britany LYNNE [facility] & [place] 03/06/2023 14:06:07 pain assessment completed Britany LYNNE [facility] & [place] 03/06/2023 14:06:20 Imaging Results None recorded. Procedure Notes None recorded. Medical Equipment None Reported. Allergies Allergen ID Allergen Name Allergen Category Reaction Reaction Severity Criticality Documentation Date Start Date Code Code System Note Provider Name and Address Organization Details Recorded Time 411969 meclizine medicatio n Not available Not available Not available 08/24/2023 6676 RxNorm Anabella [place] Manzano [facility] & [place] 3 10:59:14 89101 Benadryl medicatio n Not available Not available Not available 12/03/202246326 7 RxNorm [facility] [facility] [place] 3 14:47:43 55086 tetanus and diphtheri a toxoids Not available Not available Not available Not available 12/03/2022 19880 UNK [place] Rodriguez [facility] & [place] 3 14:47:55 52290 adhesive environme nt,medica tion Not available Not available Not available 03/06/2023 01593 UNK [place] [facility] & [place] 3 13:49:50 Medications Name Sig Start Date Stop Date Status Note LastModified by Organization Details LastModified Time clindamycin /mupirocin 100/20mg topical capsule (xylitol) [13552] MIX THE CONTENTS OF 1 CAPSULE WITH [...] completed Not Available Not Available Not Available Librado Ellipta 100 mcg-62.5 mcg-25 mcg powder for inhalation INHALE 1 PUFF BY MOUTH ONCE A DAY active Not Available Not Available No t Available Ozempic 0.25 mg or 0.5 mg (2 mg/1.5 mL) subcutaneou s pen injector 08/17 completed Not Available Not Available Not Available Dexcom G6 Sensor device USE DIRECTED active Not Available Not Available No t Available Dexcom G6 Relay Mechanic active Not Available Not Available Not Available [...] active Not Available Not Available Not Available [facility] ODT 75 mg disintegrat ing tablet 03/16 completed Not Available Not Available Not Available [facility] ODT 03/16 completed Not Available Not Available [...] Updated DateTime 5 170.18 cm 44.1 kg/m2 882764. 97 g 73 /min 72 /min 97 % 97 % 98.2 [degF] 142 mm[Hg] 80 mm[Hg] [place]ay [place] [facility] [place] 13:00:07 Social History Question Answer Notes LastModified by Organizat ion Details LastModified Time Tobacco Smoking Status Current Every Day Smoker Basia barney, [place] [facility] & [place] 12/03/2022 15:13:21 Do You Have An Advance Directive? No [email or web address] Information not available 01/25/2025 What Is Your Level Of Alcohol Consumption? None [email or web address] Information not available 12/03/2022 Are You Blind Or Do You Have Difficulty Seeing? No [email or web address] Information not available 01/25/2025 What Was The Date Of Your Most Recent Tobacco Screening? 08/15/2024 [email or web address] Information not available 01/25/2025 Are You Passively Exposed To Smoke? No Information no t available 01/25/2025 Do You Or Have You Ever Used Smokeless Tobacco? Never Used Smokeless Tobacco [email or web address] Information not available 01/25/2025 How Much Tobacco Do You Smoke? 1 PPW [email or web address] Information not available 01/25/2025 Do You Feel Stressed (tense, Restless, Nervous, Or Anxious, Or Unable To Sleep At Night)? [id number] [email or web address] Information not available 01/25/2025 Do You Use Any Illicit Or Recreational Drugs? No [email or web address] Information not available 12/03/2022 How Many Years Have You Smoked Tobacco? 31 [email or web address] Information not available 01/25/2025 Sex: Female Functional Status Question Answer Note LastModified by Organization D etails LastModified Time What is your exercise level? None [email or web address] Information not available 01/25/2025 Mental Status None recorded. Family History Relationship Description Onset Age of this Age Resolved Age Notes LastModified by Organization Details LastModified Time Mother Hypertensive disorder [email or web address] Not available 12/03 15:12:55 Father Coronary arterioscler osis [email or web address] Not available 2024 12:46:07 Father Hypertensive disorder [email or web address] Not available 03/2023 11:00:03 Father Heart disease [email or web address] Not available 03/2023 11:00:12 Brother Coronary arterioscler osis dec [email or web address] Not available 2024 12:46:07 Brother Diabetes mellitus [email or web address] Not available 2024 12:46:07 Paternal Grandmother Obesity [email or web address] Not available 1 10/24/2022 10:59:38 Maternal Grandfather Asthma [email or web address] Not available 06/2025 12:46:07 Paternal Uncle Heart disease [email or web address] Not available 2023 09:46:19 Medical History Condition Response Diabetes Y Anxiety Disorder Y Other Y Arthritis Y Seizures/Epilepsy Y Congestive Heart Failure (CHF) Y Hyperlipidemia Y Back Problems Y Hypothyroidism Y Depression Y Asthma Y Anemia Y Reflux/GERD Y Sleep Apnea Y High Cholesterol Y Psychiatric/Mental Health Condition Y Heart Disease Y Headaches Y Obstructive Sleep Apnea Y Hypertension Y Neurological Problems Y Gynecological History Statement/Question [...] Time influenza, unspecified formulation 4 completed Katie [place], [place] [facility] & [place] 11/24/2024 10:00:11 zoster recombinant 5 completed Katie Falcon null[place] [facility] [facility] & [place] 11/24/2024 10:01:26 pneumococcal, unspecified formulation 3 completed Katiejoshua Falcon null, [place] [facility] & [place] 11/24/2024 10:01:07 Influenza, split virus, quadrivalent, preservative 2 completed LIZBETH Quan - [facility] & [place] 01/25/2025 12:59:55 COVID-19, mRNA, LNP-S, PF, 30 mcg/0.3 mL dose 1 completed Danay barney [place] - [facility] & [place] 01/25/2025 12:59:55 COVID-19, mRNA, LNP-S, PF, 30 mcg/0.3 mL dose 1 completed Danay Carey [place], [place] [facility] & [place] 01/25/2025 12:59:55 Pneumococcal conjugate PCV20, polysaccharide [id number] conjugate, adjuvant, PF 2 completed Danay [place] & [place] 01/25/2025 12:59:55 Influenza, split virus, trivalent, preservative 9 completed Danay [place] & [place] 01/25/2025 12:59:55 Influenza, split virus, quadrivalent, PF 3 completed Danay [place] & [place] 01/25/2025 12:59:55 Past Encounters Encounter ID Performer Location Encounter Start Date Encounter Closed Date Diagnosis/Indication Diagnosis SNOMED-CT Code Diagnosis ICD10 Code Diagnosis Note [id number] Sakina Tran MD [facility] Gen Surg [address] [place] [address] 12/27/2024 10:08:07 12/27/2024 10:55:07 Chronic cholecystitis with calculus 00695892 K80.10 stable postop. Patient does have a reaction to the Monocryl suture. We discussed that this should continue to improve with conservati ve management . She can use an over-the-c ounter antihistam ine as needed. She has no restrictio ns from a surgical standpoint . We discussed that the nausea should continue to improve with time. Skin react ion to suture material 586493309 T88.8XXA R23.9 [id number] Cornelio Cooper PA-C [facility] [address] [facility] [address] [place] [address] 01/25/2025 12:45:40 01/25/2025 13:20:02 Chronic idiopathic constipation 51953113 K59.04 Continue Linzess 145 mcg once daily. Improved. Gastroesop hageal reflux disease without esophagitis 800861128 K21.9 -Not optimally controlled . Stop pantoprazo le. Start Dexlansopr azole 60 mg p.o. once daily. Nausea 922804957 R11.0 Resolved following recent cholecyste ctomy. GES was normal 10/18/24. History of polyp of colon 648702720 Z86.0100 -Repeat surveillan ce colonoscop y 12/2029. Dysphagia 37960673 R13.1 0 She describes both oropharyng eal and esophageal dysphagia symptoms. Empiric dilation performed in 2022 at [facility]. She is unclear if this was beneficial .-Obtain esophagram and MBS. Consider repeat EGD. Health Concerns Section Related Observation LastModified by Organization Detai ls LastModified Time None Recorded Concern Status LastModified by Organization Details LastModified Time None Recorded Payers Encounter Date Sequence Insurance Name Policy Number Policy Victoria Covered Member ID Victoria Member ID Guarantor Name 01/25/2025 1 [employer] [facility] (MEDICAID HMO) Frannie Nuñez [id number] Frannie Nuñez Notes Date Note Type Note Provider Name and Address Organization Details Recorded Time 01/25/2025 text/html CURRENT (01/25/25) : Ms. Nuñez [...] recent addition of Linzess. Cornelio Cooper PA-C [address], [place], [address], [facility] - [place] & [place] 01/25/2025 22:00:35 OBGyn Episode No OBEpisode recorded.
--- OUTSIDE RECORDS SUMMARY | 2025-02-09 09:00 | XMS_ITS | Continuity of Care Document ---
Author Organization [facility] Phone Care Team Providers Care Shirt Presser Name Role Phone ENRRIQUE CHRISTOFER Francis Surgeon Unavailable JUAREZ VILLARREAL Admitting JUAREZ VILLARREAL Primary Attending [phone] JUAREZ VILLARREAL Surgeon NO, DEFINED P Primary Care Unavailable ALLERGIES AND ADVERSE REACTIONS ALLERGIES AND ADVERSE REACTIONS Code System Allergy Substance Adverse Reaction Date Reaction (Severity) Comment Status Reported By Updated By 3492 RXNorm BENADRYL Rash HIVES active [id number] on December 14, 2024 3:16:14 PM UTC TETANUS TOXOIDS Rash HIVES active [id number] on December 14, 2024 3:16:14 PM UTC 6676 RXNorm MECLIZINE Adverse reaction to substance (Moderate) anxiety, hyperactivitiy active [id number] on December 14, 2024 3:16:14 PM UTC adhesive tape (Free Text Allergy) Rash active [id number] on December 14, 2024 3:28:48 PM UTC ASSESSMENTS Biliary dyskinesia ; Chronic cholecystitis ; FAMILY HISTORY RELATION: Father Status: Cause of : Unknown Age at : 63 SNOMED-CT Diagnosis Age At Onset [id number] Heart disease RELATION: Mother Status: LIVING SNOMED-CT Diagnosis Age At Onset [id number] Hypertensive disorder PROBLEMS PATIENT PROBLEMS Code Description/Comments Category Status Upda jayy By [id number] Biliary dyskinesia active [id number] on December 13, 2024 7:16:16 PM UTC [id number] Chronic cholecystitis active QIE [id number] on December 14, 2024 6:49:07 PM UTC RESULTS Patient: RAI Villalobos Date of : [birth year] LABORATORY RESULTS ORDER 600: GLUCOSE BEDSIDE T ESTING (LOINC: 57264-4) ORDER DATE: December 14, 2024 3:12:00 PM UTC Specimen Source: WHOLE BLOOD Specimen Type: Whole blood s ample PERFORMING LAB: [address] [id number] Result Comment: December 14, 2024 3:23:00 PM UTC Test performed by: [id number] ; Instrument: [id number] Final Result Date: December 14, 2024 3:23:00 PM UT LOINC TEST [place] [address]-7 Glucose [Mass/volume ] in Capillary blood by Glucometer H 120 mg/dl 70 mg/dl - 105 mg/dl November 3:23:00 PM UTC LABORATORY NARRATIVE RESULTS Information is not available RADIOLOGY RESULTS Information is not available PATHOLOGY NARRATIVE RESULTS ORDER 700: PATHOLOGY SPECIME N (LOINC: 94864-3) ORDER DATE: December 14, 2024 6:11:00 PM UTC Specimen Source: PATH Specimen Type: Refer to path ology laboratory PERFORMING LAB: [address] [id number] Final Result Date: December 22, 2024 7:18:00 PM UT (TECH: [facility] [place]) TEST: PATHOLOGY SPECIMEN SEE SCANNED RPT MICROBIOLOGY RESULTS No Micro Labs/Results Exist for Patient BLOOD ADMIN RESULTS Information is not available TREATMENT PLAN DISCHARGE MEDICATIONS Status RXNORM Medication Dose Route Frequency Dates Comments U pdated By Continued [id number] Percocet Oral Tablet 5-325 MG 1 TAB ORAL EVERY SIX HOURS NEEDED Prescribe d: December 14, 2024 6:58:05 PM UTC do not take at the same time as acetaminop hen [id number] on December 14, 2024 6:58:05 PM UT Continued 606892 lamotrigine 150 mg tablet 300 MG ORAL TWICE A DAY Prescribe d: December 14, 2024 6:58:05 PM UTC [id number] on December 14, 2024 6:58:05 PM UT Continued 497757 lisinopril 5 mg tablet 1 TAB ORAL AFTER BREAKFAST Prescribe d: December 14, 2024 6:58:05 PM UTC [id number] on December 14, 2024 6:58:05 PM UT Continued 723683 zonisamide (ZONEGRAN) 200 MG ORAL ONCE EVERY EVENING Prescribe d: December 14, 2024 6:58:05 PM UT [id number] on December 14, 2024 6:58:05 PM UT Continued 511136 Aspirin 81 Oral Tablet Delayed Release 81 MG 1 TAB ORAL ONCE DAILY Prescribe d: December 14, 2024 6:58:05 PM UT [id number] on December 14, 2024 6:58:05 PM UT Continued 690957 zonisamide (ZONEGRAN) 100 MG 1 CAP ORAL ONCE EVERY MORNING Prescribe d: December 14, 2024 6:58:05 PM UT [id number] on December 14, 2024 6:58:05 PM UT Continued 351492 rOPINIRole HCl Oral Tablet 2 MG 2 TAB ORAL AT BEDTIME Prescribe d: December 14, 2024 6:58:05 PM UT [id number] on December 14, 2024 6:58:05 PM UT Continued 205974 spironolact one 50 mg tablet 1 TAB ORAL AFTER BREAKFAST Prescribe d: December 14, 2024 6:58:05 PM [facility] [id number] on December 14, 2024 6:58:05 PM UT Continued 6072179 Nurtec Oral Tablet Disintegrat ing 75 MG 1 TAB ORAL NEEDED Prescribe d: December 14, 2024 6:58:05 PM [facility] [id number] on December 14, 2024 6:58:05 PM UT Continued 731172 Famotidine Oral Tablet 20 MG 1 TAB ORAL ONCE DAILY Prescribe d: December 14, 2024 6:58:05 PM [facility] [id number] on December 14, 2024 6:58:05 PM UT Continued 011901 Ondansetron HCl Oral Tablet 4 MG 1 TAB ORAL NEEDED Prescribe d: December 14, 2024 6:58:05 PM [facility] [id number] on December 14, 2024 6:58:05 PM UT Continued 614503 Gabapentin Oral Capsule 300 MG 1 TAB ORAL THREE TIMES A DAY Prescribe d: December 14, 2024 6:58:05 PM UT [id number] on December 14, 2024 6:58:05 PM UT Continued 4532522 albuterol sulfate HFA 90 mcg/actuati on aerosol inhaler 1 PUF INHALED NEEDED Prescribe d: December 14, 2024 6:58:05 PM UT [id number] on December 14, 2024 6:58:05 PM UT Continued 6257960 Desvenlafax ine Succinate ER Oral Tablet Extended Release 24 Hour 100 MG 1 TAB ORAL ONCE DAILY Prescribe d: December 14, 2024 6:58:05 PM UT [id number] on December 14, 2024 6:58:05 PM UT Continued 5164215 Emgality Subcutaneou s Solution Auto-inject or 120 MG/ML 120 MG INTRAMUSCU LAR ONCE EACH MONTH Prescribe d: December 14, 2024 6:58:05 PM [facility] [id number] on December 14, 2024 6:58:05 PM UT Continued 767309 Furosemide Oral Tablet 20 MG 1 TAB ORAL NEEDED Prescribe d: December 14, 2024 6:58:05 PM [facility] [id number] on December 14, 2024 6:58:05 PM UT Continued 0070121 Linzess Oral Capsule 145 MCG 1 TAB ORAL ONCE DAILY Prescribe d: December 14, 2024 6:58:05 PM [facility] [id number] on December 14, 2024 6:58:05 PM UT Continued 249093 Pantoprazol e Sodium Oral Tablet Delayed Release 40 MG 1 TAB ORAL ONCE DAILY Prescribe d: December 14, 2024 6:58:05 PM [facility] [id number] on December 14, 2024 6:58:05 PM UT Continued 886562 Ibuprofen Oral Tablet 600 MG 1 TAB ORAL EVERY SIX HOURS Prescribe d: December 14, 2024 6:58:05 PM [facility] [id number] on December 14, 2024 6:58:05 PM UT Continued 414766 Acetaminoph en Extra Strength Oral Tablet 500 MG 1 TAB ORAL EVERY SIX HOURS NEEDED Prescribe d: December 14, 2024 6:58:05 PM [facility] [id number] on December 14, 2024 6:58:05 PM UT Continued 137494 Rosuvastati n Calcium Oral Tablet 20 MG 1 TAB ORAL ONCE DAILY Prescribe d: December 14, 2024 6:58:05 PM [facility] [id number] on December 14, 2024 6:58:05 PM UT Continued 4281826 Vitamin D (Ergocalcif dionne) Oral Capsule 1.25 MG (50169 UT) 54621 UNT ORAL ONCE EACH WEEK Prescribe d: December 14, 2024 6:58:05 PM [facility] [id number] on December 14, 2024 6:58:05 PM UT Continued 964395 baclofen (LIORESAL) 10 MG 1 TAB ORAL FOUR TIMES A DAY Prescribe d: December 14, 2024 6:58:05 PM UT [id number] on December 14, 2024 6:58:05 PM UT Continued 0249821 Trelegy Ellipta Inhalation Aerosol Powder Breath Activated 100-62.5-25 MCG/ACT 1 PUF INHALED ONCE DAILY Prescribe d: December 14, 2024 6:58:05 PM UT [id number] on December 14, 2024 6:58:05 PM UT Continued 341935 Vitamin B-12 ER Oral Tablet Extended Release 1000 MCG 1000 MCG ORAL ONCE DAILY Prescribe d: December 14, 2024 6:58:05 PM UT [id number] on December 14, 2024 6:58:05 PM UT Continued 5854837 cetirizine (ZyrTEC) 10 MG 1 TAB ORAL AFTER BREAKFAST Prescribe d: December 14, 2024 6:58:05 PM [facility] [id number] on December 14, 2024 6:58:05 PM UT Continued 7857712 dapaglifloz in (FARXIGA) 10 MG ORAL ONCE DAILY Prescribe d: December 14, 2024 6:58:05 PM [facility] [id number] on December 14, 2024 6:58:05 PM UT Continued 737426 busPIRone HCl Oral Tablet 5 MG 1 TAB ORAL TWICE A DAY Prescribe d: December 14, 2024 6:58:05 PM UT [id number] on December 14, 2024 6:58:05 PM UT Continued 283233 carvedilol (COREG) 12.5 MG 1 TAB ORAL TWICE A DAY Prescribe d: December 14, 2024 6:58:05 PM [facility] [id number] on December 14, 2024 6:58:05 PM [facility] Continued 973547 folic acid (FOLATE) 1 MG 1 TAB ORAL AFTER BREAKFAST Prescribe d: December 14, 2024 6:58:05 PM UT [id number] on December 14, 2024 6:58:05 PM [facility] PATIENT OPEN ORDERS Code System Description Frequency Occurrences Priority Start Date Ordering Physician Updated By Patient open order informati on is not available. SCHEDULED PROCEDURES Code System Description Status Scheduled Date Upd ated By Patient scheduled procedure information is not available. MEDICATIONS HOME MEDICATIONS Status RXNORM NDC Medication Dose Route Frequency Dates Comments Reported By Updated By Active 328521 36460 81455 0 baclofen (LIORESAL) 10 MG 1.0 TAB ORAL QID Last Dose: 2024 2:00:0 0 AM UTC [id number] on December 14, 2024 2:42:18 PM UTC Active 844712 75196 72216 0 carvedilol (COREG) 12.5 MG 1.0 TAB ORAL BID Last Dose: 2024 2:00:0 0 AM UTC [id number] on December 14, 2024 2:41:23 PM UTC Active 2696654 31666 64276 1 cetirizine (ZyrTEC) 10 MG 1.0 TAB ORAL PCB Last Dose: 2024 2:00:0 0 PM UTC [id number] on December 14, 2024 2:40:58 PM UTC Active 4457156 37568 97667 0 dapagliflozi n (FARXIGA) 10.0 MG ORAL DAILY Last Dose: 2024 2:00:0 0 PM UTC [id number] December 14, 2024 2:40:06 PM UTC Active 1199499 58418 80599 1 Emgality Subcutaneous Solution Auto-injecto r 120 MG/ML 120.0 MG INTRAM USCULA R QMONTH Last Dose: 2024 2:00:0 0 PM UTC [id number] December 14, 2024 2:48:09 PM UTC Active 222400 34681 13041 1 folic acid (FOLATE) 1 MG 1.0 TAB ORAL PCB Last Dose: 2024 2:00:0 0 PM UTC [id number] December 14, 2024 2:44:45 PM UTC Active 398466 56140 20996 5 lamotrigine 150 mg tablet 300.0 MG ORAL BID Last Dose: 2024 2:00:0 0 AM UTC [id number] on December 14, 2024 2:39:25 PM UTC Active 342171 17658 87171 5 lisinopril 5 mg tablet 1.0 TAB ORAL PCB Last Dose: 2024 2:00:0 0 AM UTC [id number] on December 14, 2024 2:42:32 PM UTC Active 107287 25945 01961 2 spironolacto ne 50 mg tablet 1.0 TAB ORAL PCB Last Dose: 2024 2:00:0 0 PM UTC [id number] on December 14, 2024 2:42:06 PM UTC Active 64427 00348 6 Vitamin D (Ergocalcife rol) Oral Capsule 1.25 MG (36868 UT) 53264 .0 UNT ORAL QWEEK Last Dose: 2024 2:00:0 0 PM UTC [id number] on December 14, 2024 2:47:18 PM UTC Active 240264 35449 12921 0 zonisamide (ZONEGRAN) 100 MG 1.0 CAP ORAL QAM Last Dose: 2024 2:00:0 0 PM UTC [id number] December 14, 2024 2:43:33 PM UTC Active 746079 71160 39306 0 zonisamide (ZONEGRAN) 200.0 MG ORAL QPM Last Dose: 2024 2:00:0 0 AM UTC [id number] December 14, 2024 2:43:23 PM UTC Active 45863 62196 6 Vitamin B-12 ER Oral Tablet Extended Release 1000 MCG 1000. 0 MCG ORAL DAILY Last Dose: 2024 2:00:0 0 PM UTC [id number] December 14, 2024 2:41:12 PM UTC Active 8505112 77138 83246 0 Linzess Oral Capsule 145 MCG 1.0 TAB ORAL DAILY Last Dose: 2024 2:00:0 0 PM UTC [id number] December 14, 2024 2:38:36 PM UTC Active 492386 57787 24688 1 busPIRone HCl Oral Tablet 5 MG 1.0 TAB ORAL BID Last Dose: 2024 2:00:0 0 PM UTC [id number] on December 14, 2024 2:39:00 PM UTC Active 029464 25990 45810 1 Rosuvastatin Calcium Oral Tablet 20 MG 1.0 TAB ORAL DAILY Last Dose: 2024 2:00:0 0 AM UTC [id number] on December 14, 2024 2:39:50 PM UTC Active 320355 77467 61634 1 rOPINIRole HCl Oral Tablet 2 MG 2.0 TAB ORAL BEDTIME Last Dose: 2024 2:00:0 0 AM UTC [id number] on December 14, 2024 2:40:43 PM UTC Active 060990 00478 77627 0 Pantoprazole Sodium Oral Tablet Delayed Release 40 MG 1.0 TAB ORAL DAILY Last Dose: 2024 2:00:0 0 PM UTC [id number] on December 14, 2024 2:41:53 PM UTC Active 348028 37713 34527 0 Famotidine Oral Tablet 20 MG 1.0 TAB ORAL DAILY Last Dose: 2024 2:00:0 0 AM UTC [id number] on December 14, 2024 2:42:55 PM UTC Active 22840 02148 1 Aspirin 81 Oral Tablet Delayed Release 81 MG 1.0 TAB ORAL DAILY Last Dose: 2024 2:00:0 0 PM UTC [id number] December 14, 2024 2:43:53 PM UTC Active 8776835 26601 26708 3 Desvenlafaxi ne Succinate ER Oral Tablet Extended Release 24 Hour 100 MG 1.0 TAB ORAL DAILY Last Dose: 2024 2:00:0 0 PM UTC [id number] December 14, 2024 2:44:30 PM UTC Active 157322 65712 21988 0 Gabapentin Oral Capsule 300 MG 1.0 TAB ORAL TID Last Dose: 2024 2:00:0 0 AM UTC [id number] on December 14, 2024 2:45:08 PM UTC Active 294129 53846 87089 5 Furosemide Oral Tablet 20 MG 1.0 TAB ORAL PRN Last Dose: [id number] on December 14, 2024 6:55:29 PM UTC Active 5865181 49209 25621 2 Nurtec Oral Tablet Disintegrati ng 75 MG 1.0 TAB ORAL PRN Last Dose: [id number] on December 14, 2024 6:55:38 PM UTC Active 5139149 95636 64705 0 Trelegy Ellipta Inhalation Aerosol Powder Breath Activated 100-62.5-25 MCG/ACT 1.0 PUF INHALA TION DAILY Last Dose: 2024 2:00:0 0 PM UTC [id number] on December 14, 2024 2:46:36 PM UT Active 736349 36437 51252 3 Ondansetron HCl Oral Tablet 4 MG 1.0 TAB ORAL PRN Last Dose: 2024 10:00: 00 AM UT [id number] on December 14, 2024 6:55:45 PM UT Active 678367 50526 52622 8 traMADol HCl Oral Tablet 50 MG 1.0 TAB ORAL PRN Last Dose: 2024 9:00:0 0 AM UT [id number] on December 14, 2024 2:47:52 PM UT Active 4651287 31619 59758 5 albuterol sulfate HFA 90 mcg/actuatio n aerosol inhaler 1.0 PUF INHALA TION PRN Last Dose: [id number] on December 14, 2024 6:55:15 PM UT DISCHARGE MEDICATIONS Status RXNORM [facility] Medication Dose Route Frequency Dates Comments Physician Updated By Continue d 2642404 8892 1062 370 Percocet Oral Tablet 5-325 MG 1.0 TAB ORAL EVERY SIX HOURS NEEDED Prescr ibed: 2024 6:58:0 5 PM UT do not take at the same time as acetamino phen PHIL GREENBERG [id number] on December 14, 2024 6:58:05 PM UT Continue d 621441 6870 8004 805 lamotrigine 150 mg tablet 300.0 MG ORAL TWICE A DAY Prescr ibed: 2024 6:58:0 5 PM UT PHIL GREENBERG [id number] on December 14, 2024 6:58:05 PM UT Continue d 938058 4115 5020 945 lisinopril 5 mg tablet 1.0 TAB ORAL AFTER BREAKFAST Prescr ibed: 2024 6:58:0 5 PM UT PHIL GREENBERG [id number] on December 14, 2024 6:58:05 PM UT Continue d 625824 9731 1024 400 zonisamide (ZONEGRAN) 200.0 MG ORAL ONCE EVERY EVENING Prescr ibed: 2024 6:58:0 5 PM UT PHIL Yates PHY [id number] on December 14, 2024 6:58:05 PM UTC Continue d 001201 0461 7001 431 Aspirin 81 Oral Tablet Delayed Release 81 MG 1.0 TAB ORAL ONCE DAILY Prescr ibed: 2024 6:58:0 5 PM UT PHIL PIZARRO [place] [facility] [id number] on December 14, 2024 6:58:05 PM UTC Continue d 528415 8762 1024 400 zonisamide (ZONEGRAN) 100 MG 1.0 CAP ORAL ONCE EVERY MORNING Prescr ibed: 2024 6:58:0 5 PM [facility] [place] Y [id number] on December 14, 2024 6:58:05 PM UTC Continue d 478515 5647 2024 601 rOPINIRole HCl Oral Tablet 2 MG 2.0 TAB ORAL AT BEDTIME Prescr ibed: 2024 6:58:0 5 PM UT PHIL GREENBERG [id number] on December 14, 2024 6:58:05 PM UTC Continue d 776439 8478 0708 202 spironolact one 50 mg tablet 1.0 TAB ORAL AFTER BREAKFAST Prescr ibed: 2024 6:58:0 5 PM UT PHIL Yates PHY [id number] on December 14, 2024 6:58:05 PM UTC Continue d 7047493 7261 8300 002 Nurtec Oral Tablet Disintegrat ing 75 MG 1.0 TAB ORAL NEEDED Prescr ibed: 2024 6:58:0 5 PM [facility] PHIL Yates Pura [id number] on December 14, 2024 6:58:05 PM UTC Continue d 055933 2034 2572 860 Famotidine Oral Tablet 20 MG 1.0 TAB ORAL ONCE DAILY Prescr ibed: 2024 6:58:0 5 PM UT PHIL GREENBERG [id number] on December 14, 2024 6:58:05 PM UTC Continue d 834422 7796 1015 313 Ondansetron HCl Oral Tablet 4 MG 1.0 TAB ORAL NEEDED Prescr ibed: 2024 6:58:0 5 PM [facility] PHIL Yates PHY [id number] on December 14, 2024 6:58:05 PM UTC Continue d 298590 4213 1021 230 Gabapentin Oral Capsule 300 MG 1.0 TAB ORAL THREE TIMES A DAY Prescr ibed: 2024 6:58:0 5 PM [facility] PHIL Yates PH [id number] on December 14, 2024 6:58:05 PM UTC Continue d 2800426 8300 8007 985 albuterol sulfate HFA 90 mcg/actuati on aerosol inhaler 1.0 PUF INHALE D NEEDED Prescr ibed: 2024 6:58:0 5 PM [facility] PHIL GREENBERG [id number] on December 14, 2024 6:58:05 PM UTC Continue d 9885899 5578 4040 113 Desvenlafax ine Succinate ER Oral Tablet Extended Release 24 Hour 100 MG 1.0 TAB ORAL ONCE DAILY Prescr ibed: 2024 6:58:0 5 PM [facility] PHIL GREENBERG [id number] on December 14, 2024 6:58:05 PM UTC Continue d 7564523 0000 2143 601 Emgality Subcutaneou s Solution Auto-inject or 120 MG/ML 120.0 MG INTRAM USCULA R ONCE EACH MONTH Prescr ibed: 2024 6:58:0 5 PM [facility] PHIL GREENBERG [id number] on December 14, 2024 6:58:05 PM UTC Continue d 362276 9892 4429 725 Furosemide Oral Tablet 20 MG 1.0 TAB ORAL NEEDED Prescr ibed: 2024 6:58:0 5 PM [facility] PHIL GREENBERG [id number] on December 14, 2024 6:58:05 PM UTC Continue d 9295599 7276 6120 130 Linzess Oral Capsule 145 MCG 1.0 TAB ORAL ONCE DAILY Prescr ibed: 2024 6:58:0 5 PM [facility] PHIL GREENBERG [id number] on December 14, 2024 6:58:05 PM UTC Continue d 267773 4033 1078 230 Pantoprazol e Sodium Oral Tablet Delayed Release 40 MG 1.0 TAB ORAL ONCE DAILY Prescr ibed: 2024 6:58:0 5 PM UT PHIL Yates [facility] [id number] on December 14, 2024 6:58:05 PM UTC Continue d 823784 3438 8083 010 Ibuprofen Oral Tablet 600 MG 1.0 TAB ORAL EVERY SIX HOURS Prescr ibed: 2024 6:58:0 5 PM UT PHIL Yates [facility] [id number] on December 14, 2024 6:58:05 PM UTC Continue d 426675 5968 9088 030 Acetaminoph en Extra Strength Oral Tablet 500 MG 1.0 TAB ORAL EVERY SIX HOURS NEEDED Prescr ibed: 2024 6:58:0 5 PM UT PHIL JUAREZ Yates [facility] [id number] on December 14, 2024 6:58:05 PM UTC Continue d 799581 0325 5058 481 Rosuvastati n Calcium Oral Tablet 20 MG 1.0 TAB ORAL ONCE DAILY Prescr ibed: 2024 6:58:0 5 PM UT PHIL JUAREZ Yates [facility] [id number] on December 14, 2024 6:58:05 PM UTC Continue d 1906677 5826 0073 706 Vitamin D (Ergocalcif dionne) Oral Capsule 1.25 MG (75709 UT) 81063 .0 UNT ORAL ONCE EACH WEEK Prescr ibed: 2024 6:58:0 5 PM UT PHIL Yates Pura [id number] on December 14, 2024 6:58:05 PM UTC Continue d 641261 6794 2409 660 baclofen (LIORESAL) 10 MG 1.0 TAB ORAL FOUR TIMES A DAY Prescr ibed: 2024 6:58:0 5 PM UT PHIL JUAREZ Yates [facility] [id number] on December 14, 2024 6:58:05 PM UTC Continue d 0554719 2465 3088 710 Trelegy Ellipta Inhalation Aerosol Powder Breath Activated 100-62.5-25 MCG/ACT 1.0 PUF INHALE D ONCE DAILY Prescr ibed: 2024 6:58:0 5 PM UT PHIL JUAREZ Yates [facility] [id number] on December 14, 2024 6:58:05 PM UTC Continue d 017794 1233 2056 526 Vitamin B-12 ER Oral Tablet Extended Release 1000 MCG 1000. 0 MCG ORAL ONCE DAILY Prescr ibed: 2024 6:58:0 5 PM [facility] JUAREZ M [facility] [id number] on December 14, 2024 6:58:05 PM UTC Continue d 1284581 8988 8363 701 cetirizine (ZyrTEC) 10 MG 1.0 TAB ORAL AFTER BREAKFAST Prescr ibed: 2024 6:58:0 5 PM [facility] JUAREZ M [facility] [id number] on December 14, 2024 6:58:05 PM UTC Continue d 9328381 6591 3045 730 dapaglifloz in ([facility]) 10.0 MG ORAL ONCE DAILY Prescr ibed: 2024 6:58:0 5 PM [facility] JUAREZ M [facility] [id number] on December 14, 2024 6:58:05 PM UTC Continue d 557340 9698 3005 301 busPIRone HCl Oral Tablet 5 MG 1.0 TAB ORAL TWICE A DAY Prescr ibed: 2024 6:58:0 5 PM [facility] [id number] on December 14, 2024 6:58:05 PM UTC Continue d 211604 9334 9093 120 carvedilol (COREG) 12.5 MG 1.0 TAB ORAL TWICE A DAY Prescr ibed: 2024 6:58:0 5 PM [facility] JUAREZ M [facility] [id number] on December 14, 2024 6:58:05 PM UTC Continue d 211207 0988 7068 101 folic acid (FOLATE) 1 MG 1.0 TAB ORAL AFTER BREAKFAST Prescr ibed: 2024 6:58:0 5 PM [facility] JUAREZ M [facility] [id number] on December 14, 2024 6:58:05 PM [facility] INPATIENT MEDICATIONS Status RXNORM [facility] Medication Dose Route Frequency Rat e Quantity Dates Comments Physician Updated By [facility] [id number] 8690 8017 704 LACTATED RINGERS SOLN 1000. 0 ML INTRAV ENOUS ONE TIME ADMINISTRA TION (UNSCHEDUL ED) 25.0 ML/HR Start: 2024 4:13:0 0 PM UTC End: ua 2024 6:58:0 5 PM UTC EMILY Purcell [id number] on December 15, 2024 5:25:00 AM UTC Discont inued 667542 6843 8011 704 LACTATED RINGERS SOLN 1000. 0 ML INTRAV ENOUS ONE TIME ONLY (PACU) 25.0 ML/HR Start: 2024 4:13:0 0 PM UTC End: ua 2024 6:58:0 5 PM UTC EMILY Prucell [id number] on December 15, 2024 5:25:00 AM UTC Discont inued 7984809 0040 9117 630 meperidine (DEMEROL) 25 MG/ML SOLN 12.5 MG INTRAV ENOUS NEEDED (PACU) Start: 2024 4:13:0 0 PM UTC End: 2024 6:58:0 5 PM UTC EMILY Purcell [id number] on December 15, 2024 5:25:00 AM UTC Discont inued 5487614 0040 9117 630 meperidine (DEMEROL) 25 MG/ML SOLN 25.0 MG INTRAV ENOUS NEEDED (PACU) Start: 2024 4:13:0 0 PM UTC End: 2024 6:58:0 5 PM UTC EMILY Purcell [id number] on December 15, 2024 5:25:00 AM UTC Discont inued 4675630 6332 3080 811 fentaNYL (SUBLIMAZE) 50 MCG/ML SOSY 25.0 MCG INTRAV ENOUS EVERY 5 MINUTES NEEDED (PACU) Start: 2024 4:13:0 0 PM UTC End: ua 2024 6:58:0 5 PM UTC EMILY Purcell [id number] on December 15, 2024 5:25:00 AM UTC Discont inued 5142543 6332 3080 811 fentaNYL (SUBLIMAZE) 50 MCG/ML SOSY 50.0 MCG INTRAV ENOUS EVERY 5 MINUTES NEEDED (PACU) Start: 2024 4:13:0 0 PM UTC End: Februa ry 2024 6:58:0 5 PM UTC EMILY Purcell [id number] on December 15, 2024 5:25:00 AM UTC Discont inued 2366123 9867 9426 401 HYDROmorpho ne (DILAUDID) 0.5 MG/0.5ML SOLN 0.5 MG INTRAV ENOUS EVERY 10 MINUTES NEEDED (PACU) Start: Februa ry 2024 4:13:0 0 PM UTC End: Februa ry 2024 6:58:0 5 PM UTC EMILY Purcell [id number] on December 15, 2024 5:25:00 AM UTC Discont inued 8125833 2839 9128 331 HYDROmorpho ne (DILAUDID) 1 MG/ML SOLN 1.0 MG INTRAV ENOUS EVERY 10 MINUTES NEEDED (PACU) Start: Februa 2024 4:13:0 0 PM UTC End: Februa 2024 6:58:0 5 PM UTC EMILY Purcell [id number] on December 15, 2024 5:25:00 AM UTC Discont inued 9864022 9085 8010 250 PERCOCET 5-325 MG TABS 1.0 TAB ORAL ONE TIME ADMINISTRA TION (UNSCHEDUL ED) Start: Februa 2024 4:13:0 0 PM UTC End: Februa 2024 9:40:0 0 PM UTC EMILY Purcell [id number] on December 15, 2024 5:25:00 AM UTC Discont inued 2905730 3628 8010 250 PERCOCET 5-325 MG TABS 2.0 TAB ORAL ONE TIME ADMINISTRA TION (UNSCHEDUL ED) Start: Februa 2024 4:13:0 0 PM UTC End: Februa 2024 9:40:0 0 PM UTC EMILY Purcell [email or web address] on December 15, 2024 5:25:00 AM UTC Discont inued [id number] ondansetron (ZOFRAN) INJ 4 MG/2 ML SOLN 4.0 MG INTRAV ENOUS NEEDED (PACU) Start: Februa 2024 4:13:0 0 PM UTC End: Februa ry 2024 6:58:0 5 PM UTC EMILY Purcell [email or web address] on December 15, 2024 5:25:00 AM UTC Discont inued [id number] droperidol (INAPSINE) 2.5 MG/ML SOLN 0.625 MG INTRAV ENOUS NEEDED (PACU) Start: Februa 2024 4:13:0 0 PM UTC End: Februa 2024 6:58:0 5 PM UTC EMILY Purcell [email or web address] on December 15, 2024 5:25:00 AM UTC Discont inued [id number] 201 droperidol (INAPSINE) 2.5 MG/ML SOLN 1.25 MG INTRAV ENOUS NEEDED (PACU) Start: Februa 2024 4:13:0 0 PM UTC End: Februa 2024 6:58:0 5 PM UTC EMILY Purcell [email or web address] on December 15, 2024 5:25:00 AM UTC Discont inued [id number] 112 midazolam (VERSED) 2 MG/2 ML SOLN 1.0 MG INTRAV ENOUS EVERY FIVE MINUTES NEEDED Start: ua 2024 4:13:0 0 PM UTC End: Februa 2024 6:58:0 5 PM UTC EMILY Purcell [email or web address] on December 15, 2024 5:25:00 AM UTC Discont inued [id number] 112 midazolam (VERSED) 2 MG/2 ML SOLN 2.0 MG INTRAV ENOUS NEEDED (PACU) Start: Februa 2024 4:13:0 0 PM UTC End: Februa 2024 6:58:0 5 PM UTC EMILY Purcell [email or web address] on December 15, 2024 5:25:00 AM UTC Discont inued [id number] promethazin e (PHENERGAN) 25 MG/ML SOLN 12.5 MG INTRAV ENOUS NEEDED (PACU) Start: Februa 2024 4:13:0 0 PM UTC End: Februa 2024 6:58:0 5 PM UTC EMILY Purcell [email or web address] on December 15, 2024 5:25:00 AM UTC Discont inued [id number] promethazin e (PHENERGAN) 12.5 MG GEL 12.5 MG TOPICA L NEEDED (PACU) Start: Februa 2024 4:13:0 0 PM UTC End: Februa 2024 6:58:0 5 PM UTC EMILY Purcell [id number] on December 15, 2024 5:25:00 AM UTC Discont inued [id number] 0062 8092 355 pantoprazol e (PROTONIX) 40 MG SOLR 40.0 MG INTRAV ENOUS ONE TIME ADMINISTRA TION (UNSCHEDUL ED) Start: ua 2024 7:15:0 0 PM UTC End: Februa 2024 3:15:4 3 PM UTC PHILPenny Yates [id number] on December 14, 2024 3:15:00 PM UTC Discont inued [id number] 5158 062 SCOPOLAMINE 1 MG/3DAYS PT72 1.0 MG TOPICA L ONE TIME ADMINISTRA TION (UNSCHEDUL ED) Start: 2024 7:15:0 0 PM UTC End: ua 2024 3:15:4 4 PM UTC PHIL Yates [id number] on December 14, 2024 3:15:00 PM UTC Discont inued [id number] 7374 3085 210 simethicone (MYLICON) 80 MG CHEW 80.0 MG ORAL ONE TIME ADMINISTRA TION (UNSCHEDUL ED) Start: ua 2024 7:15:0 0 PM UTC End: Februa 2024 3:15:4 2 PM UTC PHIL JUAREZ Yates [id number] on December 14, 2024 3:15:00 PM UTC Discont inued [id number] [id number] 061 acetaminoph en (TYLENOL) 500 MG TABS 1000. 0 MG ORAL ONE TIME ADMINISTRA TION (UNSCHEDUL ED) Start: Februa 2024 7:15:0 0 PM UTC End: Februa 2024 3:15:4 2 PM UTC PHILPenny Yates [id number] on December 14, 2024 3:15:00 PM UTC Discont inued [id number] 3984 3716 601 celeCOXIB (CeleBREX) 200 MG CAPS 400.0 MG ORAL ONE TIME ADMINISTRA TION (UNSCHEDUL ED) Start: 2024 7:15:0 0 PM UTC End: 2024 3:15:4 1 PM [facility] [id number] on December 14, 2024 3:15:00 PM UTC Discont inued [id number] 0014 3914 025 ceFAZolin (ANCEF) 3 GM SOLR 3.0 GM INTRAV ENOUS ONE TIME ADMINISTRA TION (UNSCHEDUL ED) 200.0 ML/HR Start: 2024 7:15:0 0 PM UTC End: 2024 3:15:4 4 PM [facility] [id number] on December 14, 2024 3:15:00 PM UTC Discont inued [id number] 5190 9710 167 sodium chloride 0.9% SOLN 100.0 ML INTRAV ENOUS ONE TIME ADMINISTRA TION (UNSCHEDUL ED) 200.0 ML/HR Start: 2024 7:15:0 0 PM UTC End: 2024 3:15:4 4 PM UT PHIL Yates [id number] on December 14, 2024 3:15:00 PM UTC Discont inued [id number] 5089 8011 704 LACTATED RINGERS SOLN 1000. 0 ML INTRAV ENOUS ONE TIME ONLY (PACU) 25.0 ML/HR Start: 2024 7:55:0 0 PM UTC End: 2024 6:58:0 5 PM UTC EMILY Purcell [id number] on December 15, 2024 5:25:00 AM UTC Discont inued [id number] 0040 9117 630 meperidine (DEMEROL) 25 MG/ML SOLN 12.5 MG INTRAV ENOUS NEEDED (PACU) Start: 2024 7:55:0 0 PM UTC End: Februa 2024 6:58:0 5 PM UTC EMILY Purcell [id number] on December 15, 2024 5:25:00 AM UTC Discont inued [id number] 0040 9117 630 meperidine (DEMEROL) 25 MG/ML SOLN 25.0 MG INTRAV ENOUS NEEDED (PACU) Start: Februa 2024 7:55:0 0 PM UTC End: Februa 2024 6:58:0 5 PM UTC EMILY Purcell [id number] on December 15, 2024 5:25:00 AM UTC Discont inued [id number] 6332 3080 811 fentaNYL (SUBLIMAZE) 50 MCG/ML SOSY 25.0 MCG INTRAV ENOUS EVERY 5 MINUTES NEEDED (PACU) Start: ua 2024 7:55:0 0 PM UTC End: Februa 2024 6:58:0 5 PM UTC EMILY Purcell [id number] on December 15, 2024 5:25:00 AM UTC Discont inued [id number] 6332 3080 811 fentaNYL (SUBLIMAZE) 50 MCG/ML SOSY 50.0 MCG INTRAV ENOUS EVERY 5 MINUTES NEEDED (PACU) Start: ua 2024 7:55:0 0 PM UTC End: Februa 2024 6:58:0 5 PM UTC EMILY Purcell [id number] on December 15, 2024 5:25:00 AM UTC Discont inued [id number] 6314 9426 401 HYDROmorpho ne (DILAUDID) 0.5 MG/0.5ML SOLN 0.5 MG INTRAV ENOUS EVERY 10 MINUTES NEEDED (PACU) Start: Februa 2024 7:55:0 0 PM UTC End: Februa 2024 6:58:0 5 PM UTC EMILY Purcell [id number] on December 15, 2024 5:25:00 AM UTC Discont inued [id number] 8185 9128 331 HYDROmorpho ne (DILAUDID) 1 MG/ML SOLN 1.0 MG INTRAV ENOUS EVERY 10 MINUTES NEEDED (PACU) Start: Februa 2024 7:55:0 0 PM UTC End: Februa 2024 6:58:0 5 PM UTC EMILY Purcell [id number] on December 15, 2024 5:25:00 AM UTC Discont inued [id number] 3863 8010 250 PERCOCET 5-325 MG TABS 1.0 TAB ORAL ONE TIME ADMINISTRA TION (UNSCHEDUL ED) Start: Februa 2024 7:55:0 0 PM UTC End: Februa 2024 6:58:0 5 PM UTC EMILY Purcell [id number] on December 15, 2024 5:25:00 AM UTC Discont inued [id number] 5167 8010 250 PERCOCET 5-325 MG TABS 2.0 TAB ORAL ONE TIME ADMINISTRA TION (UNSCHEDUL ED) Start: ua 2024 7:55:0 0 PM UTC End: Februa 2024 6:58:0 5 PM UTC EMILY Purcell [id number] on December 15, 2024 5:25:00 AM UTC Discont inued 2025962 0330 5613 000 ondansetron (ZOFRAN) INJ 4 MG/2 ML SOLN 4.0 MG INTRAV ENOUS NEEDED (PACU) Start: 2024 7:55:0 0 PM UTC End: ua 2024 6:58:0 5 PM UTC EMILY Purclel [id number] on December 15, 2024 5:25:00 AM UTC Discont inued [id number] 0051 7970 201 droperidol (INAPSINE) 2.5 MG/ML SOLN 0.625 MG INTRAV ENOUS NEEDED (PACU) Start: ua 2024 7:55:0 0 PM UTC End: Februa 2024 6:58:0 5 PM UTC EMILY Purcell [id number] on December 15, 2024 5:25:00 AM UTC Discont inued [id number] 9996 3041 112 midazolam (VERSED) 2 MG/2 ML SOLN 1.0 MG INTRAV ENOUS EVERY FIVE MINUTES NEEDED Start: ua 2024 7:55:0 0 PM UTC End: Februa 2024 6:58:0 5 PM UTC EMILY Purcell [id number] on December 15, 2024 5:25:00 AM UTC Discont inued [id number] 8763 3041 112 midazolam (VERSED) 2 MG/2 ML SOLN 2.0 MG INTRAV ENOUS NEEDED (PACU) Start: 2024 7:55:0 0 PM UTC End: Februa 2024 6:58:0 5 PM UTC EMILY Purcell [id number] on December 15, 2024 5:25:00 AM UTC Discont inued 070161 3364 1092 825 promethazin e (PHENERGAN) 25 MG/ML SOLN 12.5 MG INTRAV ENOUS NEEDED (PACU) Start: 2024 7:55:0 0 PM UTC End: Februa 2024 6:58:0 5 PM UTC EMILY Purcell [id number] on December 15, 2024 5:25:00 AM UTC Discont inued [id number] [id number] 011 promethazin e (PHENERGAN) 12.5 MG GEL 12.5 MG TOPICA L NEEDED (PACU) Start: 2024 7:55:0 0 PM UTC End: ua 2024 6:58:0 5 PM UTC EMILY Purcell [id number] on December 15, 2024 5:25:00 AM UTC Discont inued 806735 2772 8011 704 LACTATED RINGERS SOLN 1000. 0 ML INTRAV ENOUS ONE TIME ADMINISTRA TION (UNSCHEDUL ED) 25.0 ML/HR Start: 2024 7:55:0 0 PM UTC End: ua 2024 3:15:4 0 PM UTC EMILY Purcell [id number] on December 14, 2024 3:15:00 PM UTC Discont inued 5056214 2960 9909 332 PACU - fentaNYL (SUBLIMAZE) 100 MCG/2ML SOLN 100.0 MCG INTRAV ENOUS ONE TIME ONLY (SCHEDULED DOSE) Start: 2024 5:00:0 0 PM UTC End: ua 2024 5:00:0 0 PM UTC PHIL Yates INTERFAC ED on December 14, 2024 5:01:00 PM UTC Discont inued [id number] 1069 3017 905 buprenorphi ne (BUPRENEX) 0.3 MG/ML SOLN 0.3 MG INTRAV ENOUS ONE TIME ONLY (SCHEDULED DOSE) Start: 2024 5:00:0 0 PM UTC End: 2024 5:00:0 0 PM [facility] on December 14, 2024 5:02:00 PM UTC Discont inued [id number] 5515 0016 830 bupivacaine PF 0.25% SOLN 30.0 ML EPIDUR AL ONE TIME ONLY (SCHEDULED DOSE) Start: 2024 5:00:0 0 PM UTC End: 2024 5:00:0 0 PM [facility] on December 14, 2024 5:02:00 PM UTC Discont inued [id number] 6550 6542 302 sugammadex (BRIDION) 200 MG/2ML SOLN 200.0 MG INTRAV ENOUS ONE TIME ONLY (SCHEDULED DOSE) Start: 2024 6:51:0 0 PM UTC End: 2024 6:51:0 0 PM [facility] on December 14, 2024 6:51:00 PM UTC Discont inued 7187962 0039 9020 901 PROPOFOL 200 MG/20ML EMUL 200.0 MG INTRAV ENOUS ONE TIME ONLY (SCHEDULED DOSE) 8.333 MG/HR Start: 2024 7:52:0 0 PM UTC End: 2024 7:54:1 5 PM [facility] [id number] on December 14, 2024 7:54:00 PM UTC Discont inued [id number] 1894 5613 000 ONDANSETRON HCL 4 MG/2ML SOLN 4.0 MG INTRAV ENOUS ONE TIME ONLY (SCHEDULED DOSE) 0.167 MG/HR Start: 2024 7:52:0 0 PM UTC End: 2024 7:54:1 6 PM [facility] [id number] on December 14, 2024 7:54:00 PM UT Discont inued [id number] 5923 3042 610 ROCURONIUM BROMIDE 100 MG/10ML 100.0 MG INTRAV ENOUS ONE TIME ONLY (SCHEDULED DOSE) 4.167 MG/HR Start: 2024 7:54:0 0 PM UTC End: 2024 7:54:1 6 PM UTC PHIL Yates [id number] on December 14, 2024 7:54:00 PM UTC Discont inued 378209 3737 8011 704 LACTATED RINGERS SOLN 1000. 0 ML IV CONTIN UOUS ONE TIME ONLY (SCHEDULED DOSE) Start: 2024 2:47:0 0 PM UTC End: 2024 2:47:0 0 PM UTC PHILPenny PIZARRO [place] INTERFAC ED on December 14, 2024 5:00:00 AM UT SOCIAL HISTORY SOCIAL HISTORY SNOMED-CT Social History Element Description Effective Dates Offered Cessation Comment UpdatedBy [id number] Current Tobacco smoking status Current Every Day Smoker [id number] on November 29, 2024 4:29:24 PM UT SOCIAL HISTORY - Gender Sex: [...] value for each vital sign as of December 23, 2024 2:16:05 AM UT Loinc Code Vital Sign Activity Date Result Updated By 8302-2 Body height December 14 2:36:28 PM UT 170.18 cm (67.0 in) [id number] on December 14, 2024 2:36:[place] [address]-2 Body mass index (BMI) [Ratio] December 14, 2024 2:36:28 PM UT 43.882 kg/m2 [id number] on December 14, 2024 2:36:28 PM UT 3140-1 Body Surface Area Derived From Formula December 14, 2024 2:36:28 PM UTC 2.3337 m2 [id number] on December 14, 2024 2:36:[place] [address]-1 Body weight Measured December 14, 2024 2:36:28 PM [facility] 127.1 kg (280.0 lb) [id number] on December 14, 2024 2:36:28 PM [facility] PEDIATRIC GROWTH CHART - VITAL SIGNS This section displays Head C ircumference Percentile, Weight for Length Percentile and BMI Percentile Loinc Code Pediatric Measure Age (Months) Result Updat ed By No Pediatric Growth Chart Pe rcentile Information Available. PROCEDURES PATIENT PROCEDURES CODE SYSTEM DESCRIPTION STATUS PERFORMED DATE UPD ATED BY [id number] SNOMED-CT Robot assisted laparoscopic cholecystectomy completed December 14, 2024 5:00:00 AM [facility] [id number] on December 14, 2024 6:49:40 PM UT PROCEDURE NOTE Note Title Operative/Procedure Note Date Of Service December 14, 2024 6: 48:51 PM UT Created By [id number] on December 14, 2024 6:48:51 PM UTC Signed By [id number] on December 14, 2024 6:54:35 PM UT Pre-Procedure Diagnosis Biliary dyskinesia Post- Procedure Diagnosis Chronic cholecystitis Procedure / Surgery Performed Robot assisted laparoscopic cholecystectomy Performed by PHIL GREENBERG Anesthesia Type General anesthesia, Regional anesthesia Estimated Blood Loss 20 cc Complications None Present at Time of Surgery Hepatomegaly, moderate pericholecystic adhesions of omentum to gallbladder, adhesion of small bowel and colon to anterior abdominal wall Indication Biliary colic Procedure Description / Findings Patient is a 54-year-old woman who presented with symptoms consistent with biliary colic and biliary dyskinesia on imaging. She was deemed a candidate for cholecystectomy. Informed consent was obtained and the patient positively identified in the holding area. She was taken to the OR suite and placed in supine position on the OR table. At this time a time-out was performed verifying the identity of the patient as well as the procedure to be performed. After administration of anesthesia the operative site was prepped and draped in the usual sterile fashion and the patient underwent regional pain block by anesthesia personnel. A epigastric incision was made and under direct laparoscopic visualization an 8 mm robotic Visiport trocar was placed into the peritoneal cavity. The abdomen was insufflated 15 mm Hg and laparoscopic inserted. There was no evidence of injury from initial trocar placement. Patient was noted to have adhesion of transverse colon and small bowel to the anterior abdominal wall near the area of trocar insertion. This bowel was carefully inspected and there was no bleeding or evidence of injury. Three additional 8 mm trocars were placed. The patient was positioned. I took down some of the small bowel adhesion with a grasper. It was limiting mobility and also formed a open area concerning for hernia formation. There was minimal oozing from the omentum which was controlled with Bovie electrocautery. The patient was then positioned and the surgical robot docked. I proceeded to the operative console at this point. The gallbladder was grasped and elevated. There were pericholecystic adhesions of omentum to the gallbladder and surrounding liver bed. These were taken down with hook electrocautery. The liver was enlarged and had a somewhat fatty appearance. There was some friable tissue on the liver capsule that oozed when touched with an instrument. The peritoneum on the gallbladder infundibulum was scored and widely opened. The fibrofatty tissue was dissected free and 2 tubular structures were identified as the only structures entering the gallbladder infundibulum. The gallbladder infundibulum and cystic duct were folded in accordion fashion on themselves. The lower 3rd of the gallbladder was carefully removed from the liver bed with hook electrocautery. Once the bare area of the liver had been identified posteriorly the critical view of safety was obtained. At this point the cystic duct and artery were doubly clipped and divided. The clip on the gallbladder infundibulum was dislodged with maneuvering and the area elevated and re clipped. There was spillage of some bile from the gallbladder itself. Gallbladder was removed from the liver bed with hook electrocautery. There was oozing in several places from the hepatic capsule which was controlled with Bovie electrocautery as well as per clot. A gauze sponge was placed intraperitoneally and used to remove the small amount of spilled bile. This was removed from the abdomen and appropriately accounted for. Inspection of the operative site revealed no further bleeding or any bile leak. Ports were withdrawn under direct laparoscopic visualization once the robot was undocked. Fascia of the extraction site was closed with 0 PDS suture and a Jake-Elie device. Skin of all sites was then closed with subcuticular 4-0 Monocryl and Dermabond. Patient tolerated the procedure without incident and was taken awake and alert to the PACU in stable condition. All sponge, needle and instrument counts were correct for the case as reported by operating room personnel. Specimens Gallbladder Tubes/Drains None Implants None Disposition of Patient To PACU in stable condition Electronically signed by PHIL GREENBERG on 85[facility] Problems Concern Status Health Concern problem infor mation not available. Smoking Status Status Years Used Consumed packs p er day Health Concern smoking histo ry information not available. Family History Concern Status Health Concern family histor y information not available. MEDICAL EQUIPMENT MEDICAL EQUIPMENT Device Status Quantity Dates Procedure Comments Updated By Uncoated knee tibia prosthesis, metallic ABRAM: ()[id number] Assigning Authority: FDA Device Identifier:[id number] ACTIVE Implanted: September 19, 2019 [id number] on September 19, 2019 2:22:13 PM UTC Tibial insert ABRAM: ()[id number] Assigning Authority: FDA Device Identifier:[id number] ACTIVE Implanted: September 19, 2019 [id number] on September 19, 2019 2:22:53 PM UTC Uncoated knee femur prosthesis ABRAM: ()[id number] Assigning Authority: FDA Device Identifier:[id number] ACTIVE Implanted: September 19, 2019 [id number] on September 19, 2019 2:24:02 PM UTC Polyethylene patella prosthesis ABRAM: ()[id number] Assigning Authority: FDA Device Identifier:[id number] ACTIVE Implanted: September 19, 2019 [id number] on September 19, 2019 2:24:29 PM UTC Metallic orthopedic cement restrictor ABRAM: ()[id number] Assigning Authority: FDA Device Identifier:[id number] Lot or Batch Number:[id number] Expiration Date:2025-06-18 ACTIVE 2 Implanted: May 23, 2024 RIGHT TOTAL KNEE ARTHROPLASTY [id number] on May 23, 2024 4:42:44 PM UTC Uncoated knee tibia prosthesis, metallic ABRAM: ()[id number] Assigning Authority: FDA Device Identifier:[id number] Lot or Batch Number:[id number] Expiration Date:2034-02-15 ACTIVE Implanted: May 23, 2024 RIGHT TOTAL KNEE ARTHROPLASTY [id number] on May 23, 2024 4:43:52 PM UTC Ceramic uncoated knee femur prosthesis ABRAM: ()[id number] 3 Assigning Authority: [facility] Device Identifier:[id number] Lot or Batch Number:[id number] Expiration Date:2033-07-18 ACTIVE Implanted: May 23, 2024 RIGHT TOTAL KNEE ARTHROPLASTY [id number] on May 23, 2024 4:45:14 PM UT Tibial insert ABRAM: ()[id number] Assigning Authority: [facility] Device Identifier:[id number] Lot or Batch Number:[id number] Expiration Date:2027-03-18 ACTIVE Implanted: May 23, 2024 RIGHT TOTAL KNEE ARTHROPLASTY [id number] on May 23, 2024 4:48:29 PM UTC Polyethylene patella prosthesis ABRAM: ()[id number] 8 Assigning Authority: [facility] Device Identifier:[id number] Lot or Batch Number:[id number] Expiration Date:2029-02-15 ACTIVE Implanted: May 23, 2024 RIGHT TOTAL KNEE ARTHROPLASTY [id number] on May 23, 2024 4:49:20 PM [facility] ENCOUNTERS ENCOUNTER INFORMATION Reason for Visit ROBOTIC MULT PORT CH OLECYSTECTOMY Admission December 14, 2024 1:40:[address] [id number] Discharge December 14, 2024 9:40:00 PM [facility] DISCHARGED TO HOME OR SELF CARE ENCOUNTER DIAGNOSES Notes information is not william ilable. Code System Diagnosis Onset Date Diagnosis information is not available. 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 [id number] on December 19, 2024 1:52:11 PM UT E78.5 ICD10 HYPERLIPIDEMIA, UNSPECIFIED [id number] on December 19, 2024 1:52:11 PM UT F17.210 ICD10 NICOTINE DEPENDE NCE, CIGARETTES, UNCOMPLICATED [id number] on December 19, 2024 1:52:11 PM UT R00.1 ICD10 BRADYCARDIA, UNSPECIFIED AAD 6617 on December 19, 2024 1:52:11 PM UT J45.909 ICD10 UNSPECIFIED ASTHMA, UNCOMPLI CATED [id number] on December 19, 2024 1:52:11 PM UT G47.30 ICD10 SLEEP APNEA, UNSPECIFIED AAD 6617 on December 19, 2024 1:52:11 PM UT K21.9 ICD10 GASTRO-ESOPHAGEA L REFLUX DISEASE WITHOUT ESOPHAGITIS [id number] on December 19, 2024 1:52:11 PM [facility] E66.01 ICD10 MORBID (SEVERE) OBESITY DUE TO EXCESS CALORIES [id number] on December 19, 2024 1:52:11 PM UT Z68.41 ICD10 BODY MASS INDEX [BMI] 40.0-4 4.9, ADULT [id number] on December 19, 2024 1:52:11 PM [facility] G40.909 ICD10 EPILEPSY, UNSPEC IFIED, NOT INTRACTABLE, WITHOUT STATUS EPILEPTICUS [id number] on December 19, 2024 1:52:11 PM [facility] F41.9 ICD10 ANXIETY DISORDER, UNSPECIFIE D [id number] on December 19, 2024 1:52:11 PM [facility] F32.A ICD10 DEPRESSION, UNSPECIFIED [id number] on December 19, 2024 1:52:11 PM UT E11.9 ICD10 TYPE 2 DIABETES MELLITUS WITHOUT COMPLICATIONS [id number] on December 19, 2024 1:52:11 PM [facility] E03.9 ICD10 HYPOTHYROIDISM, UNSPECIFIED [id number] on December 19, 2024 1:52:11 PM [facility] 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 [id number] on December 19, 2024 1:52:11 PM [facility] Z96.659 ICD10 PRESENCE OF UNSP ECIFIED ARTIFICIAL KNEE JOINT [id number] on December 19, 2024 1:52:11 PM [facility] Z96.649 ICD10 PRESENCE OF UNSP ECIFIED ARTIFICIAL HIP JOINT [id number] on December 19, 2024 1:52:11 PM [facility] Z79.899 ICD10 OTHER IT SUPPORT MANAGER (CURRENT) DR UG THERAPY [id number] on December 19, 2024 1:52:11 PM UT Z79.82 ICD10 CARE HOME (CURRENT) USE OF A SPIRIN [id number] on December 19, 2024 1:52:11 PM UTC Z88.8 ICD10 ALLERGY STATUS T O OTHER DRUGS, MEDICAMENTS AND BIOLOGICAL SUBSTANCES [id number] on December 19, 2024 1:52:11 PM [facility] CARE TEAM Care Shirt Presser Role CHRISTOFER OSUNA Surgeon JUAREZ VILLARREAL Admitting JUAREZ VILLARREAL Primary Attending JUAREZ VILLARREAL Surgeon DEFINED NO Primary Care HOSPITAL DISCHARGE INSTRUCTION DISCHARGE INSTRUCTION Encounter [id number] Admit Date December 14, 2024 1: 40:00 PM UT Discharge Date December 14, 2024 9: 40:00 PM [facility] PATIENT EDUCATION SUMMARY Patient/Visit Information: Patient Name: MECHE ATWOOD Diag: Attending Caregiver: PHIL Yates Discharge Instruction Sheets Provided: Anesthesia, [facility] DC Instructions After BEFAST-Stroke Warning Signs COVID-19 CDC-EN Discharge Information Dr. Villarreal for Lap Candace.,Hernia or Appendectomy Fall Prevention in Hospitals and in the Home [facility] Pain and Responsible Opioid (Pain Medication) Management KYNECT- HELP Medication Side Effects Suicide - Managing your Feelings Patient Instructions: Followup Appointments/Instructions: CARE TEAM CARE market basket maker Role on Team Status Start Date End Date Update d By ENRRIQUE Francis CRNA Surgeon normal December 14, 2024 5:40:00 PM [facility] December 14, 2024 9:40:00 PM UT [id number] on December 19, 2024 1:53:06 PM [facility] PHIL GREENBERG Surgeon normal December 14, 2024 1:40:00 PM [facility] December 14, 2024 9:40:00 PM [facility] [id number] on December 19, 2024 1:53:06 PM [facility] NO DEFINED PRIMARY C PCP normal November 24, 2024 5:00:47 PM [facility] December 14, 2024 9:40:00 PM UT [id number] on December 19, 2024 1:53:06 PM [facility] PHIL GREENBERG Attending normal November 24, 2024 5:00:47 PM [facility] December 14, 2024 9:40:00 PM UT [id number] on December 19, 2024 1:53:06 PM [facility] PHIL GREENBERG Admitting normal November 24, 2024 5:00:47 PM [facility] December 14, 2024 9:40:00 PM UT [id number] on December 19, 2024 1:53:06 PM [facility]
--- NOTE | 2025-02-09 09:01 | XR_ITS ---
FINAL REPORT CLINICAL HISTORY: Follow-up, extremity swelling COMPARISON: 08/25/2024 FINDINGS: PA and lateral views of the chest are obtained. There is no change in the left-sided pacemaker. The cardiac and mediastinal silhouettes are within normal limits. The lungs are clear. There is no pleural effusion, pneumothorax, or acute osseous abnormality. IMPRESSION: No radiographic evidence of acute cardiac or pulmonary disease. Reviewed, Interpreted and Dictated by Dee Jones MD Transcribed by Peg Ribeiro Authenticated and . [facility]
[2025-02-09 10:11] LABS: Alanine Aminotransferase 33 U/L (12-78); Albumin Level 4.1 g/dl (3.5-5.0); Albumin/Globulin Ratio 1.5 (1.1-1.8); Alkaline Phosphatase 142 U/L (38-126); Anion Gap 14.6 mEq/L (5-15); Aspartate Amino Transferase 29 U/L (14-36); Bilirubin,Total 0.6 mg/dl (0.2-1.3); Blood Urea Nitrogen 14 mg/dl (7-17); Calcium 9.4 mg/dl (8.4-10.2); Carbon Dioxide 23 mmol/L (22.0-30.0); Chloride 105 mmol/L (98-107); Chol/HDL Ratio 3.4 (1-3.5); Cholesterol 133 mg/dl (140-200); Estimated Glomerular Filt Rate 65 ml/min (>60); GFR (African American) 79 ML/MIN (>60); Globulin 2.7 g/dL (1.3-3.2); Glucose 138 mg/dl (74-100); HDL Cholesterol 39 mg/dl (40-60); Potassium 4.6 mmoL/L (3.5-5.1); Sodium 138 mmol/L (136-145); Total Protein,Serum 6.8 g/dl (6.3-8.2); Triglycerides 185 mg/dl (30-150); VLDL Cholesterol 37 mg/dL (0-40)
[2025-02-09 10:19] LABS: NT Pro Brain Natriuretic Pep. 44.9 pg/mL (0-125)
[2025-02-09 10:22] LABS: Direct LDL Cholesterol 63.28 mg/dL (100-129)
== END 2025-02-09 23:59 | disposition home or self-care (01) ==
LOC: RAD 08:58
PROVIDERS: Visit Provider Nurse Practitioner Family
DX: R06.02 Shortness of breath (principal); M79.89 Other specified soft tissue disorders; E78.5 Hyperlipidemia, unspecified
CPT/HCPCS: 36415; 71046; 80053; 80061; 83880

== ENCOUNTER 2025-02-15 10:08 | Outpatient (CLI) | payer OTHER, SELFPAY ==
--- OUTSIDE RECORDS SUMMARY | 2025-02-15 10:11 | XMS_ITS | Continuity of Care Document ---
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 Referral None recorded. Procedures None recorded. Surgeries None recorded. Imaging XR, esophagra m [address] Scheduling Department -New Scheduling Process, [address] [facility] [address], [place], [id number], 02/08/2025 14:11:12 [place], modified barium swallow study [address] Scheduling Department -New Scheduling Process, [address] [facility] [address], [place], [id number], 02/01/2025 08:13:31 Medication Orders Linzess 145 mcg capsule 2024 025 LOLIS Oneal [facility], [address] [facility] [address], [place], [id number], 01/25/2025 16:39:56 dexlansop razole 60 mg capsule,b iphase delayed release 2024 025 LOLIS Oneal [facility], [address] [address] [place], [id number], 02/10/2025 15:18:34 Patient TargetsNo targets recorded. Patient InstructionsNo instructions recorded. Reason for Referral None Reported. Problems Name Problem SNOMED Code Status Onset Date Resolution Date Notes Provider Name and Address Organization Details Recorded Time Gastroesophag eal reflux disease without esophagitis 384343791 Active 2023 Cornelio Cooper PA-C [address], [facility] [address] , [facility] - [facility] & [place] 10:33:08 Regurgitation of gastric content 58564452 Active 2023 [facility] Cooper [facility] [address] [address] , [facility] - [facility] & [place] 10:33:35 Nausea 066173330 Active 2023 Cornelio Cooper PA-C [address] [facility] [address] , [facility] - NT [facility] & [place] 10:33:43 Chronic idiopathic constipation 68708194 Active 2023 Cornelio Cooper PA-C [address] [facility] [address] , [place] - [facility] & [place] 10:35:21 Constipation alternates with diarrhea 953813429 Active 2023 Cornelio Cooper PA-C [address] [facility] [facility] [address] , [place] - [facility] & [place] 10:36:31 Biliary dyskinesia 129018747 Active 2024 YAMILET Moeller[address], [facility] [address] , [place] - [facility] - [place] & [place] 5 13:26:10 Dysphagia 40999143 Active 2024 Cornelio Cooper PA-C [address], [place], [address] , [place] & [place] 5 13:16:18 Diverticuliti s of intestine 665364538 Active 2024 Cornelio Cooper PA-C [address], [place], [address] , [place] - [place] & [place] 5 15:57:22 Arthritis 3450417 Active 2022 Basia barney, [place] - [place] - [place] & [place] 3 14:48:04 Diabetes mellitus 40889737 Active 2022 Basia Palumbo null, [place] & [place] 3 14:48:08 Hypercholeste rolemia 93999874 Active 2022 Basia Palumbo null[place] & [place] 3 14:48:19 Fibromyalgia 927130556 Active 2022 Basia Palumbo [place] & [place] 3 14:48:26 Irritable bowel syndrome 49050991 Active 2022 Basia Palumbo [place] & [place] 3 14:48:30 Anemia 557233162 Active 2022 Britany Mujica null[place] & [place] 3 14:03:28 Hypertensive disorder 67830565 Active 2022 Britany Mujica null[place] & [place] 3 14:03:37 Cardiac pacemaker in situ 107445308 Active 2022 Britany Mujica null, [place] & [place] 3 14:04:04 Anxiety 92996097 Active 2022 Britany Mujica null[place] & [place] 3 14:04:14 Asthma 750923092 Active 2022 Britany barney, [place] - [facility] & [place] 3 14:04:20 Seizure 89836480 Active 2022 Britany barney[place] [facility] & [place] 3 14:04:25 Problem Notes None recorded. Procedures Surgical History Date Name Laterality Status Provider Name and Address Organization Details Recorded Time 025 Colonoscopy completed Thompson Patel [place] - [facility] - [facility] & [place] 01/25/2025 12:58:03 025 cholecystectomy completed Katie Falcon [place] [facility] & [place] 12/27/2024 10:19:28 024 completed Danay Carey [place] - [place] - [facility] & [place] 01/25/2025 12:59:25 024 Most Recent Bone Density completed Danay Carey [place] [facility] & [place] 01/25/2025 12:59:25 024 Other completed Danay [place] [facility] & [place] 01/25/2025 12:59:43 024 Joint Replacement completed Danay [place] [facility] & [place] 01/25/2025 12:59:43 023 Cystoscopy-Female completed Jordan Gil Jr, MD [address] [place] [address], [address], [place], [address] [place] - [facility] - [place] & [place] 03/06/2023 15:35:18 023 Date of Last Colonoscopy completed Danay [place] [facility] & [place] 01/25/2025 12:59:25 023 Other completed Danay [place] & [place] 01/25/2025 12:59:43 023 Pacemaker/Defibril lator completed Danay [place] [facility] & [place] 01/25/2025 12:59:43 023 Abdominal Surgery completed Danay Carey [place] & [place] 01/25/2025 12:59:43 022 Cardiovascular Surgery completed Danay [place] & [place] 01/25/2025 12:59:43 020 total replacement of hip completed aBsia NIEVES - [place] - [place] & [place] 12/03/2022 15:14:14 020 Head or Neck Surgery completed Danay Carey [place] & [place] 01/25/2025 12:59:43 020 Hip Surgery completed Danay [place] & [place] 01/25/2025 12:59:43 019 Joint Replacement completed Danay [place] & [place] 01/25/2025 12:59:43 019 Hip Surgery completed Danay [place] & [place] 01/25/2025 12:59:43 016 EGD/Endoscopy completed Basia NIEVES - [facility] - [place] & [place] 12/03/2022 15:14:01 014 Colonoscopy completed Basia NIEVES - [facility] - [place] & [place] 12/03/2022 15:13:52 004 Date of Last Pap Smear completed Danay Carey [place] - [place] - [place] & [place] 01/25/2025 12:59:25 975 Tonsillectomy/Jonathan oidectomy completed Danay [place] & [place] 01/25/2025 12:59:43 neck repair completed Britany NIEVES - [facility] - [place] & [place] 03/06/2023 14:05:26 procedure on knee completed Britany NIEVES - [facility] - [place] & [place] 03/06/2023 14:05:44 Total Hysterectomy completed Elroy NIEVES - [facility] - [place] & [place] 03/06/2023 14:05:56 cardiac pacemaker procedure completed Britany LYNNE [facility] & [place] 03/06/2023 14:06:07 pain assessment completed Britany LYNNE [facility] & [place] 03/06/2023 14:06:20 Imaging Results None recorded. Procedure Notes None recorded. Medical Equipment None Reported. Allergies Allergen ID Allergen Name Allergen Category Reaction Reaction Severity Criticality Documentation Date Start Date Code Code System Note Provider Name and Address Organization Details Recorded Time 850551 meclizine medicatio n Not available Not available Not available 08/24/2023 6676 RxNorm Anabella LIZBETH Manzano [facility] & [place] 3 10:59:14 67026 Benadryl medicatio n Not available Not available Not available 12/03/202205694 7 RxNorm [place] [facility] & [place] 3 14:47:43 52762 tetanus and diphtheri a toxoids Not available Not available Not available Not available 12/03/2022 13989 UNK LIZBETH Rodriguez [facility] & [place] 3 14:47:55 12973 adhesive environme nt,medica tion Not available Not available Not available 03/06/2023 70271 UNK LIZBETH Muñoz [facility] & [place] 3 13:49:50 Medications Name Sig Start Date Stop Date Status Note LastModified by Organization Details LastModified Time clindamycin /mupirocin 100/20mg topical capsule (xylitol) [28686] MIX THE CONTENTS OF 1 CAPSULE WITH [...] Not Available metronidazo le 500 mg tablet TAKE 1 TABLET BY MOUTH EVERY 8 HOURS FOR 10 DAYS active Not Available Not Available No t Available hydroxyzine HCl 50 mg tablet Take 1 tablet 4 times a day by oral route. 08/17 completed Not Available Not Available Not Available ciprofloxac in 500 mg tablet TAKE 1 TABLET BY MOUTH EVERY TWELVE HOURS FOR 10 DAYS active Not Available Not Available No t Available sulfamethox azole 800 mg-trimetho prim 160 mg [...] Available Not Available quetiapine 50 mg tablet TAKE 1 TO 2 TABLETS BY MOUTH AT BEDTIME FOR SLEEP active Not Available Not Available No t Available hydrochloro thiazide 12.5 mg tablet 03/16 [...] zole 60 mg capsule,bip hase delayed release TAKE ONE CAPSULE BY MOUTH ONCE a DAY active Not Available Not Available No t Available sodium,pota ssium,mag sulfates 17.5 gram-3.13 gram-1.6 [...] completed Not Available Not Available Not Available Trelepat Ellipta 100 mcg-62.5 mcg-25 mcg powder for inhalation INHALE 1 PUFF BY MOUTH ONCE A DAY active Not Available Not Available No t Available Ozempic 0.25 mg or 0.5 mg (2 mg/1.5 mL) subcutaneou s pen injector 08/17 completed Not Available Not Available Not Available Dexcom G6 Sensor device USE DIRECTED active Not Available Not Available No t Available Dexcom G6 Network Contractor active Not Available Not Available Not Available [...] active Not Available Not Available Not Available [facility] ODT 75 mg disintegrat ing tablet 03/16 completed Not Available Not Available Not Available [facility] ODT 03/16 completed Not Available Not Available [...] Not Available Not Available Not Available Ozempic 0.25 mg or 0.5 mg (2 mg/3 mL) subcutaneou s pen injector inject 0.25 MG SUBCUTANE OUSLY ONCE WEEKLY active Not Available Not Available No t Available Vitals Date Recorded Body height Body mass index (BMI) Body weight Heart rate Heart rate Oxygen saturation Oxygen saturation in Arterial blood by Pulse oximetry Body temperature Systolic blood pressure Diastolic blood pressure Provider Name and Address Organization Details Last Updated DateTime 170.18 cm 44.1 kg/m2 973667. 97 g 73 /min 72 /min 97 % 97 % 98.2 [degF] 142 mm[Hg] 80 mm[Hg] Danay Carey [facility] & [place] 13:00:07 Social History Question Answer Notes LastModified by Organizat ion Details LastModified Time Tobacco Smoking Status Current Every Day Smoker Basia barney, [facility] & [place] 12/03/2022 15:13:21 Do You Have An Advance Directive? No [email or web address] Information not available 01/25/2025 What Is Your Level Of Alcohol Consumption? None [email or web address] Information not available 12/03/2022 Are You Blind Or Do You Have Difficulty Seeing? No [email or web address] Information not available 01/25/2025 What Was The Date Of Your Most Recent Tobacco Screening? 08/15/2024 [email or web address] Information not available 01/25/2025 Are You Passively Exposed To Smoke? No Information no t available 01/25/2025 Do You Or Have You Ever Used Smokeless Tobacco? Never Used Smokeless Tobacco [email or web address] Information not available 01/25/2025 How Much Tobacco Do You Smoke? 1 PPW [email or web address] Information not available 01/25/2025 Do You Feel Stressed (tense, Restless, Nervous, Or Anxious, Or Unable To Sleep At Night)? [id number] [email or web address] Information not available 01/25/2025 Do You Use Any Illicit Or Recreational Drugs? No [email or web address] Information not available 12/03/2022 How Many Years Have You Smoked Tobacco? 31 [email or web address] Information not available 01/25/2025 Sex: Female Functional Status Question Answer Note LastModified by Organization D etails LastModified Time What is your exercise level? None [email or web address] Information not available 01/25/2025 Mental Status None recorded. Family History Relationship Description Onset Age of this Age Resolved Age Notes LastModified by Organization Details LastModified Time Mother Hypertensive disorder [email or web address] Not available 12/03 15:12:55 Father Coronary arterioscler osis dec [email or web address] Not available 2024 12:46:07 Father Hypertensive disorder [email or web address] Not available 03/2023 11:00:03 Father Heart disease [email or web address] Not available 03/2023 11:00:12 Brother Coronary arterioscler osis dec [email or web address] Not available 2024 12:46:07 Brother Diabetes mellitus [email or web address] Not available 2024 12:46:07 Paternal Grandmother Obesity [email or web address] Not available 1 10/24/2022 10:59:38 Maternal Grandfather Asthma [email or web address] Not available 06/2025 12:46:07 Paternal Uncle Heart disease [email or web address] Not available 2023 09:46:19 Medical History Condition Response Anxiety Disorder Y Diabetes Y Other Y Arthritis Y Seizures/Epilepsy Y Congestive Heart Failure (CHF) Y Hyperlipidemia Y Back Problems Y Asthma Y Depression Y Hypothyroidism Y Anemia Y Reflux/GERD Y Sleep Apnea [...] Recorded Time influenza, unspecified formulation 4 completed Katiejoshua Caicdeoe null, [place] [facility] - [place] & [place] 11/24/2024 10:00:11 zoster recombinant 5 completed Katiejoshua Caicedoe [place] & [place] 11/24/2024 10:01:26 pneumococcal, unspecified formulation 3 completed Katie Caicedoe [place] & [place] 11/24/2024 10:01:07 Influenza, split virus, quadrivalent, preservative 2 completed Danay Carey [place] & [place] 01/25/2025 12:59:55 COVID-19, mRNA, LNP-S, PF, 30 mcg/0.3 mL dose 1 completed Danay [place], [place] [facility] & [place] 01/25/2025 12:59:55 COVID-19, mRNA, LNP-S, PF, 30 mcg/0.3 mL dose 1 completed Danay [place], [place] [facility] & [place] 01/25/2025 12:59:55 Pneumococcal conjugate PCV20, polysaccharide [id number] conjugate, adjuvant, PF 2 completed Danay [place] [facility] & [place] 01/25/2025 12:59:55 Influenza, split virus, trivalent, preservative 9 completed Danay Carey null, [place] [facility] & [place] 01/25/2025 12:59:55 Influenza, split virus, quadrivalent, PF 3 completed Danay [place] null, [place] - [facility] & [place] 01/25/2025 12:59:55 Past Encounters Encounter ID Performer Location Encounter Start Date Encounter Closed Date Diagnosis/Indication Diagnosis SNOMED-CT Code Diagnosis ICD10 Code Diagnosis Note [id number] Sakina Tran MD [facility] [address] [place] [address] 12/27/2024 10:08:07 12/27/2024 10:55:07 Chronic cholecystitis with calculus 71433972 K80.10 stable postop. Patient does have a reaction to the Monocryl suture. We discussed that this should continue to improve with conservati ve management . She can use an over-the-c ounter antihistam ine as needed. She has no restrictio ns from a surgical standpoint . We discussed that the nausea should continue to improve with time. Skin react ion to suture material 582832610 T88.8XXA R23.9 [id number] Cornelio Cooper PA-C [facility] [address] [facility] [address] [place] [address] 01/25/2025 12:45:40 01/25/2025 13:20:02 Chronic idiopathic constipation 84834141 K59.04 Continue Linzess 145 mcg once daily. Improved. Gastroesop hageal reflux disease without esophagitis 441194522 K21.9 -Not optimally controlled . Stop pantoprazo le. Start Dexlansopr azole 60 mg p.o. once daily. Nausea 887456431 R11.0 Resolved following recent cholecyste ctomy. GES was normal 10/18/24. History of polyp of colon 352179308 Z86.0100 -Repeat surveillan ce colonoscop y 12/2029. Dysphagia 11515697 R13.1 0 She describes both oropharyng eal and esophageal dysphagia symptoms. Empiric dilation performed in 2022 at [facility]. She is unclear if this was beneficial .-Obtain esophagram and MBS. Consider repeat EGD. Health Concerns Section Related Observation LastModified by Organization Detai ls LastModified Time None Recorded Concern Status LastModified by Organization Details LastModified Time None Recorded Payers Encounter Date Sequence Insurance Name Policy Number Policy Victoria Covered Member ID Victoria Member ID Guarantor Name 01/25/2025 1 [employer] [facility] (MEDICAID HMO) Frannie Nuñez [id number] Frannie Nuñez Notes Date Note Type Note [...] recent addition of Linzess. Cornelio Cooper PA-C [address], [place], [address], [facility] - [facility] - [place] & [place] 01/25/2025 22:00:35 OBGyn Episode No OBEpisode recorded.
--- OUTSIDE RECORDS SUMMARY | 2025-02-15 10:11 | XMS_ITS | Continuity of Care Document ---
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 Plan of Treatment [...] ance* No observ ation record ed. [email or web address] [address], [address], 12/01/2024 09:59:03 Result Notes None recorded. Problems Name Problem SNOMED Code Status Onset Date Resolution Date Notes Provider Name and Address Organization Details Recorded Time Gastroesophag eal reflux disease without esophagitis 224894592 Active 2023 Cornelio Cooper PA-C [address] , [place], [address] , [facility] & [place] 10:33:08 Regurgitation of gastric content 57010220 Active 2023 Cornelio Cooper PA-C [address] , [place], [address] , [place] - [facility] - [place] & [place] 4 10:33:35 Nausea 064295508 Active [address], [place], [address] , [place] [facility] [place] & [place] 4 10:33:43 Chronic idiopathic constipation 62837154 Active [address], [place], [address] , [place] [facility] [place] & [place] 4 10:35:21 Constipation alternates with diarrhea 047632086 Active [address], [place], [address] , [place] [facility] [place] & [place] 4 10:36:31 Biliary dyskinesia 319186707 Active [address], [place], [address] , [place] [facility] [place] & [place] 5 13:26:10 Dysphagia 26558242 Active [address] , [place], [address] , [place] [facility] [place] & [place] 5 13:16:18 Diverticuliti s of intestine 044261195 Active [address], [place], [address] , [place] [facility] [place] & [place] 5 15:57:22 Arthritis 2327676 Active 2022 Basia barney, [place] [facility] [place] & [place] 3 14:48:04 Diabetes mellitus 09647185 Active 2022 Basia Palumbo null, [place] [facility] [place] & [place] 3 14:48:08 Hypercholeste rolemia 83145315 Active 2022 Basia Deepali null, [place] [facility] [place] & [place] 3 14:48:19 Fibromyalgia 805792437 Active 2022 Basia Palumbo null[place] 3 14:48:26 Irritable bowel syndrome 85096439 Active 2022 Basia Palumbo null[place] [place] & [place] 3 14:48:30 Anemia 615709689 Active 2022 Britany Mujica null[place] [place] 3 14:03:28 Hypertensive disorder 43494479 Active 2022 Britany Mujica null[place] [place] & [place] 3 14:03:37 Cardiac pacemaker in situ 618199654 Active 2022 Britany barney[place] [facility] [place] & [place] 3 14:04:04 Anxiety 35825109 Active 2022 Britany Mujica null[place] [place] 14:04:14 Asthma 285112781 Active 2022 Britany Mujica null[place] [facility] [place] 3 14:04:20 Seizure 05805587 Active 2022 Britany Mujica null[place] [facility] [place] & [place] 3 14:04:25 Problem Notes None recorded. Procedures Surgical History Date Name Laterality Status Provider Name and Address Organization Details Recorded Time 025 Colonoscopy completed Thompson Patel [place] [place] & [place] 01/25/2025 12:58:03 025 cholecystectomy completed Katie Falcon [place] 12/27/2024 10:19:28 024 completed Danay Carey [place] 01/25/2025 12:59:25 024 Most Recent Bone Density completed Danay Carey [place] 01/25/2025 12:59:25 024 Other completed Danay Carey [place] [facility] [place] 01/25/2025 12:59:43 024 Joint Replacement completed Danay [place] [facility] [place] [facility] [place] 01/25/2025 12:59:43 023 Cystoscopy-Female completed Jordan Gil Jr, MD [address] [place] [address], [address], [place], [address], [place] [facility] [place] & [place] 03/06/2023 15:35:18 023 Date of Last Colonoscopy completed Danay Carey [place] 01/25/2025 12:59:25 023 Other completed Danay Carey [place] [facility] [place] 01/25/2025 12:59:43 023 Pacemaker/Defibril lator completed Danay Carey [place] 01/25/2025 12:59:43 023 Abdominal Surgery completed Danay [place] [facility] [place] [facility] [place] 01/25/2025 12:59:43 022 Cardiovascular Surgery completed Danay [place] [facility] [place] [facility] & [place] 01/25/2025 12:59:43 020 total replacement of hip completed Basia Palumbo [place] [place] 12/03/2022 15:14:14 020 Head or Neck Surgery completed Danay [place] [facility] [place] [facility] [place] 01/25/2025 12:59:43 020 Hip Surgery completed Danay [place] [facility] [place] [facility] [place] 01/25/2025 12:59:43 019 Joint Replacement completed Danay [place] [facility] [place] [facility] [place] 01/25/2025 12:59:43 019 Hip Surgery completed Danay [place] [facility] [facility] & [place] 01/25/2025 12:59:43 016 EGD/Endoscopy completed Basia LYNNE [facility] & [place] 12/03/2022 15:14:01 014 Colonoscopy completed Basia LYNNE [facility] & [place] 12/03/2022 15:13:52 004 Date of Last Pap Smear completed Danay Tavares [facility] & [place] 01/25/2025 12:59:25 975 Tonsillectomy/Jonathan oidectomy completed Danay LYNNE [facility] & [place] 01/25/2025 12:59:43 neck repair completed Britany LYNNE [facility] & [place] 03/06/2023 14:05:26 procedure on knee completed Britany LYNNE [facility] & [place] 03/06/2023 14:05:44 Total Hysterectomy completed Sanjaywesly Wilbert LYNNE [facility] & [place] 03/06/2023 14:05:56 cardiac pacemaker procedure completed Britany LYNNE [facility] & [place] 03/06/2023 14:06:07 pain assessment completed Britany LYNNE [facility] & [place] 03/06/2023 14:06:20 Imaging Results None recorded. Procedure Notes None recorded. Medical Equipment None Reported. Allergies Allergen ID Allergen Name Allergen Category Reaction Reaction Severity Criticality Documentation Date Start Date Code Code System Note Provider Name and Address Organization Details Recorded Time 208617 meclizine medicatio n Not available Not available Not available 08/24/2023 6676 RxNorm Anabella Jaime LIZBETH barney [facility] & [place] 3 10:59:14 98510 Benadryl medicatio n Not available Not available Not available 12/03/202206538 7 RxNorm LIZBETH Rodriguez [facility] & [place] 14:47:43 98073 tetanus and diphtheri a toxoids Not available Not available Not available Not available 12/03/2022 37829 UNK Basia barney, [place] [facility] [place] & [place] 3 14:47:55 14273 adhesive environme nt,medica tion Not available Not available Not available 03/06/2023 62041 UNK Britany barney, [place] [facility] [place] & [place] 3 13:49:50 Medications Name Sig Start Date Stop Date Status Note LastModified by Organization Details LastModified Time clindamycin /mupirocin 100/20mg topical capsule (xylitol) [43732] MIX THE CONTENTS OF 1 CAPSULE WITH [...] Not Available No t Available Dexcom G6 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 48 g 96.6 [degF] 73 /min 126 mm[Hg] 76 mm[Hg] Katie Falcon [facility] & [place] 10:16:07 Social History Question Answer Notes LastModified by Organizat ion Details LastModified Time Tobacco Smoking Status Current Every Day Smoker Basia Deepali barney, [facility] & [place] 12/03/2022 15:13:21 Do You Have An Advance Directive? No [email or web address] Information not available 01/25/2025 What Is Your Level Of Alcohol Consumption? None [email or web address] Information not available 12/03/2022 Are You Blind Or Do You Have Difficulty Seeing? No [email or web address] Information not available 01/25/2025 What Was The Date Of Your Most Recent Tobacco Screening? 08/15/2024 [email or web address] Information not available 01/25/2025 Are You Passively Exposed To Smoke? No [email or web address] Information no t available 01/25/2025 Do You Or Have You Ever Used Smokeless Tobacco? Never Used Smokeless Tobacco [email or web address] Information not available 01/25/2025 How Much Tobacco Do You Smoke? 1 PPW [email or web address] Information not available 01/25/2025 Do You Feel Stressed (tense, Restless, Nervous, Or Anxious, Or Unable To Sleep At Night)? [id number] [email or web address] Information not available 01/25/2025 Do You Use Any Illicit Or Recreational Drugs? No [email or web address] Information not available 12/03/2022 How Many Years Have You Smoked Tobacco? 31 [email or web address] Information not available 01/25/2025 Sex: Female Functional Status Question Answer Note LastModified by Organization D etails LastModified Time What is your exercise level? None [email or web address] Information not available 01/25/2025 Mental Status None recorded. Family History Relationship Description Onset Age of this Age Resolved Age Notes LastModified by Organization Details LastModified Time Mother Hypertensive disorder Not available 12/03 15:12:55 Father Coronary arterioscler osis dec [email or web address] Not available 2024 12:46:07 Father Hypertensive disorder [email or web address] Not available 03/2023 11:00:03 Father Heart disease [email or web address] Not available 03/2023 11:00:12 Brother Coronary arterioscler osis dec [email or web address] Not available 2024 12:46:07 Brother Diabetes mellitus [email or web address] Not available 2024 12:46:07 Paternal Grandmother Obesity [email or web address] Not available 1 10/24/2022 10:59:38 Maternal Grandfather Asthma [email or web address] Not available 06/2025 12:46:07 Paternal Uncle Heart disease [email or web address] Not available 2023 09:46:19 Medical History Condition Response Other Y Depression Y Obstructive Sleep Apnea Y Anxiety Disorder Y Arthritis Y Headaches Y Back Problems Y Asthma Y Hypothyroidism Y High Cholesterol Y Psychiatric/Mental Health Condition Y Anemia Y Neurological Problems Y Diabetes Y Seizures/Epilepsy Y Congestive Heart Failure (CHF) Y Hyperlipidemia Y Reflux/GERD Y Sleep Apnea Y Heart Disease Y Hypertension Y Gynecological History Statement/Question Response Abnormal Pap [...] completed Katie Falcon [place] [facility] [place] 11/24/2024 10:00:11 zoster recombinant 5 completed Katie Falcon [place] 11/24/2024 10:01:26 pneumococcal, unspecified formulation 3 completed Katie Falcon [place] 11/24/2024 10:01:07 Influenza, split virus, quadrivalent, preservative 2 completed Danay Carey null[place] [facility] & [place] 01/25/2025 12:59:55 COVID-19, mRNA, LNP-S, PF, 30 mcg/0.3 mL dose 1 completed Danay [place] [facility] & [place] 01/25/2025 12:59:55 COVID-19, mRNA, LNP-S, PF, 30 mcg/0.3 mL dose 1 completed Danay [place] [facility] & [place] 01/25/2025 12:59:55 Pneumococcal conjugate PCV20, polysaccharide [id number] conjugate, adjuvant, PF 2 completed Danay [place] [facility] & [place] 01/25/2025 12:59:55 Influenza, split virus, trivalent, preservative 9 completed Danay [place] [facility] & [place] 01/25/2025 12:59:55 Influenza, split virus, quadrivalent, PF 3 completed Danay [place] [facility] & [place] 01/25/2025 12:59:55 Past Encounters Encounter ID Performer Location Encounter Start Date Encounter Closed Date Diagnosis/Indication Diagnosis SNOMED-CT Code Diagnosis ICD10 Code Diagnosis Note [id number] Sakina Tran MD [facility] [address] [place] [address] 12/27/2024 10:08:07 12/27/2024 10:55:07 Chronic cholecystitis with calculus 14172426 K80.10 stable postop. Patient does have a reaction to the Monocryl suture. We discussed that this should continue to improve with conservati ve management . She can use an over-the-c ounter antihistam ine as needed. She has no restrictio ns from a surgical standpoint . We discussed that the nausea should continue to improve with time. Skin react ion to suture material 657819126 T88.8XXA R23.9 Health Concerns Section Related Observation LastModified by Organization Detai ls LastModified Time None Recorded Concern Status LastModified by Organization Details LastModified Time None Recorded Payers Encounter Date Sequence Insurance Name Policy Number Policy Victoria Covered Member ID Victoria Member ID Guarantor Name 12/27/2024 1 [employer] [facility] (MEDICAID HMO) Frannie Villalobos Nuñez [id number] Frannie Nuñez Notes Date Note Type Note Provider Name and Address Organization Details Recorded Time 12/27/2024 text/html Two weeks status post robotic cholecystectomy. Pathology showed gallstones with chronic cholecystitis. She feels well overall, has some itching surrounding her incision sites. She has some mild nausea postprandially which is starting to improve. Sakina Tran MD [address], [place], [address], [facility] & [place] 12/27/2024 11:41:25 OBGyn Episode No OBEpisode recorded.
--- OUTSIDE RECORDS SUMMARY | 2025-02-15 10:11 | XMS_ITS | Data Portability ---
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 [email or web address] Not available 08/17/2024 11:43:50 11/15/2024 11/15/2024 54-year-old female with chronic nausea, ongoing constipation with intermittent diarrhea, and GERD. Not available 11/15/2024 13:22:41 01/25/2025 01/25/2025 54-year-old female with: [email or web address] Not available 01/25/2025 21:56:59 Plan of Treatment Reminders Order Date Submit Date Provider Last Modified By Organization Details Last Modified Time Details Appointments Establish ed Visit 15 min 2024 11:30A M Cornelio Cooper PA-C Not available Not available Not available Lab None recorded. Referral general surgeon referral - Malini vazquez records from [facility] for HIDA scan and GBUS. Reported as normal, but she recalls symptom reproduct ion with CCK. Chronical ly nauseated . Unremarka ble EGD and GES recently. 2024 025 [email or web address] Sakina Tran MD, [address], [place], [address], 12/15/2024 09:57:02 Procedures None recorded. Surgeries None recorded. Imaging XR, esophagra m [address] Scheduling Department -New Scheduling Process, [address], [place], [address], 02/08/2025 14:11:12 [place], modified barium swallow study [address] Scheduling Department -New Scheduling Process, [address], [place], [address], 02/01/2025 08:13:31 NM, gastric emptying scan 2023 024 [email or web address] 4 Gt[address] [place] Number, [address] [facility], [place], [address], 08/31/2024 15:51:47 Medication Orders Linzess 145 mcg capsule [address] [facility], [address] [place] [address] [address], [place], [id number], 01/25/2025 16:39:56 dexlansop razole 60 mg capsule,b iphase delayed release [address] [facility], [address] [place] [address] 27 [address], [place], [id number], 02/10/2025 15:18:34 Linzess 145 mcg capsule [address] [facility], [address] [place] [address] 27 [address], [place], [id number], 11/24/2024 10:02:03 ondansetr on 4 mg disintegr ating tablet [address] [facility], [address] [place] [address] 27 [address], [place], [id number], 11/15/2024 13:19:24 Linzess 145 mcg capsule 2023 024 [facility], [address] [place], [id number], 11/24/2024 09:58:51 ondansetr on 4 mg disintegr ating tablet [address] [facility], [facility] [address] [place], [id number], 08/17/2024 10:48:17 famotidin e 20 mg tablet [address] [facility], [address] [place], [id number], 08/17/2024 10:45:53 Patient TargetsNo targets recorded. Patient InstructionsNo instructions recorded. Reason for Referral General Surgeon Referral for Biliary dyskinesia Requesting records from [facility] for HIDA scan and GBUS. Reported as normal, but she recalls symptom reproduction with CCK. Chronically nauseated. Unremarkable EGD and GES recently. Referring Physician: Cornelio Cooper, Gastroenterology, Encounter Date: 11/15/2024 Results Created Date Observation Date Name Description Value Unit Range Abnormal Flag Note LastModifiedBy Organization Detail LastModifiedTime 11/24/1911/24/2024 CBC NO DIFF (HEMO GRAM) WBC 9.3 K/uL 4.0-10 .5 Not Available [facility] ([facility]) [address] , [place], [address], 11/24/2024 11:27:22 11/24/19 25 11/24/2024 CBC NO DIFF (HEMO GRAM) RBC 3.8 M/mm3 4.2-6. 4 low Not Available [facility] ([facility]) [address] , [place], [address], 11/24/2024 11:27:22 11/24/19 25 11/24/2024 CBC NO DIFF (HEMO GRAM) HGB 11.8 gm/dL 12.5-1 6.0 low Not Available [facility] ([facility]) [address], [place], [address], 11/24/2024 11:27:22 11/24/19 25 11/24/2024 CBC NO DIFF (HEMO GRAM) HCT 36.8 % 37.0-4 7.0 low Not Available [facility] ([facility]) [address], [place], [address], 11/24/2024 11:27:22 11/24/19 25 11/24/2024 CBC NO DIFF (HEMO GRAM) MCV 95.8 fL 78-100 Not Available [facility] ([facility]) [address], [place], [address], 11/24/2024 11:27:22 11/24/19 25 11/24/2024 CBC NO DIFF (HEMO GRAM) MCH 30.7 pg 27-31 Not Available [facility] ([facility]) [address], [place], [address], 11/24/2024 11:27:22 11/24/19 25 11/24/2024 CBC NO DIFF (HEMO GRAM) MCHC 32.1 g/dL 32-36 Not Available [facility] ([facility]) [address], [place], [address], 11/24/2024 11:27:22 11/24/19 25 11/24/2024 CBC NO DIFF (HEMO GRAM) RDW 15.1 % 11.5-1 4.0 high Not Available [facility] ([facility]) [address] [place], [address], 11/24/2024 11:27:22 11/24/19 25 11/24/2024 CBC NO DIFF (HEMO GRAM) platelet count 302 K/uL 150-45 0 Not Available [facility] ([facility]) [address] [place], [address], 11/24/2024 11:27:22 11/24/19 25 11/24/2024 CBC NO DIFF (HEMO GRAM) MPV 10.2 fL 6-9.5 high Not Available [facility] ([facility]) [address], [place], [address], 11/24/2024 11:27:22 11/24/19 25 11/24/2024 CBC NO DIFF (HEMO GRAM) manual differential NO Not Available [facility] ([facility]) [address], [place], [address], 11/24/2024 11:27:22 11/24/19 25 11/24/2024 COMP METAB OLIC PANEL sodium 142 mmol/ L 136-14 5 Not Available [facility] ([facility]) [address], [place], [address], 11/24/2024 14:26:55 11/24/19 25 11/24/2024 COMP METAB OLIC PANEL potassium 4.2 mmol/ L 3.6-5. 0 Not Available [facility] ([facility]) [address], [place], [address], 11/24/2024 14:26:55 11/24/19 25 11/24/2024 COMP METAB OLIC PANEL chloride 106 mmol/ L 98-107 Not Available [facility] ([facility]) [address], [place], [address], 11/24/2024 14:26:55 11/24/19 25 11/24/2024 COMP METAB OLIC PANEL carbon dioxide 24.5 mmol/ L 21.0-3 2.0 Not Available [facility] ([facility]) [address], [place], [address], 11/24/2024 14:26:55 11/24/19 25 11/24/2024 COMP METAB OLIC PANEL anion gap 15.7 Not Available [facility] ([facility]) [address], [place], [address], 11/24/2024 14:26:55 11/24/19 25 11/24/2024 COMP METAB OLIC PANEL glucose 125 mg/dL 70-120 high Not Available [facility] ([facility]) [address], [place], [address], 11/24/2024 14:26:55 11/24/19 25 11/24/2024 COMP METAB OLIC PANEL BUN 14 mg/dL 7-18 Not Available [facility] ([facility]) [address], [place], [address], 11/24/2024 14:26:55 11/24/19 25 11/24/2024 COMP METAB OLIC PANEL creatinine 1.0 mg/dL 0.6-1. 3 Not Available [facility] ([facility]) [address], [place], [address], 11/24/2024 14:26:55 11/24/19 25 11/24/2024 COMP METAB [...] hale ing kiney funct ion. Not Available [facility] ([facility]) [address] , [place], [address], 11/24/2024 14:26:55 11/24/19 25 11/24/2024 COMP METAB OLIC PANEL total protein 7.3 g/dL 6.4-8. 2 Not Available [facility] ([facility]) [address], [place], [address], 11/24/2024 14:26:55 11/24/19 25 11/24/2024 COMP METAB OLIC PANEL albumin 3.3 g/dL 3.4-5. 0 low Not Available [facility] ([facility]) [address], [place], [address], 11/24/2024 14:26:55 11/24/19 25 11/24/2024 COMP METAB OLIC PANEL globulin 4.0 Not Available [facility] ([facility]) [address], [place], [address], 11/24/2024 14:26:55 11/24/19 25 11/24/2024 COMP METAB OLIC PANEL alb/glob ratio 0.8 0.7-2 Not Available [facility] ([facility]) [address] , [place], [address], 11/24/2024 14:26:55 11/24/19 25 11/24/2024 COMP METAB OLIC PANEL calcium 9.8 mg/dL 8.5-10 .5 Not Available [facility] ([facility]) [address] , [place], [address], 11/24/2024 14:26:55 11/24/19 25 11/24/2024 COMP METAB OLIC PANEL bilirubin total 0.20 mg/dL 0.10-1 .00 Not Available [facility] ([facility]) [address] , [place], [address], 11/24/2024 14:26:55 11/24/19 25 11/24/2024 COMP METAB OLIC PANEL AST (SGOT) 15 U/L 0-37 Not Available [facility] ([facility]) [address] , [place], [address], 11/24/2024 14:26:55 11/24/19 25 11/24/2024 COMP METAB OLIC PANEL ALT (SGPT) 28 U/L 0-65 Not Available [facility] ([facility]) [address] [facility], [place], [address], 11/24/2024 14:26:55 11/24/19 25 11/24/2024 COMP METAB OLIC PANEL alk phosphatase 170 U/L 46-116 high Not Available [facility] ([facility]) [address] [facility], [place], [address], 11/24/2024 14:26:55 12/14/19 25 12/22/2024 PATHO LOGY SPECI MEN pathology specimen SEE YOLANDA ENRIQUE Not Available [facility] ([facility]) [address] [facility], [place], [address], 12/22/2024 14:20:19 10/20/19 25 10/18/2024 NM, gastr ic empty ing scan [facility] [address] [place] [address] Phone: Fax: Name: FRANNIE THOMPSON Exam Date: 2023 : 970 Age 54 years Gender : F Access ion: [id number] Physic rosa m: CORNELIO COOPER Facili ty: [facility] Facili ty HSV: Outpat ient Exam: [...] Thank you for referr FRANNIE Mantilla to [facility]. Legall y authen ticate d by ALISHA Neves 2023- 12:08: 17 CC'ed Logic: Orderi ng Provid er: JONH MCKEON Attend ing Provid er: JONH MCKEON Referr ing Provid er: JONH MCKEON Admitt ing Provid er: JONH MCKEON [email or web address] [facility] - [facility] [address], [place], [address], 12/24/2024 12:45:26 11/30/19 25 11/30/2024 medic al clear ance* No observ ation record ed. [email or web address] [address], [address], 12/01/2024 09:59:03 Result Notes None recorded. Problems Name Problem SNOMED Code Status Onset Date Resolution Date Notes Provider Name and Address Organization Details Recorded Time Gastroesophag eal reflux disease without esophagitis 098964691 Active 2023 Cornelio Cooper PA-C [address], [place], [address] , [facility] - [facility] & [place] 4 10:33:08 Regurgitation of gastric content 98255738 Active 2023 Cornelio Cooper PA-C [address], [place], [address] , [place] - [facility] & [place] 4 10:33:35 Nausea 320683251 Active 2023 Cornelio Cooper PA-C [address], [place], [address] , [place] - [facility] - [place] & [place] 4 10:33:43 Chronic idiopathic constipation 47669878 Active 2023 Cornelio Cooper PA-C [address], [place], [address] , [place] - [facility] - [place] & [place] 4 10:35:21 Constipation alternates with diarrhea 336889284 Active 2023 Cornelio Cooper PA-C [address], [place], [address] , [place] - [facility] - [facility] & [place] 4 10:36:31 Biliary dyskinesia 147789182 Active 2024 Cornelio Cooper PA-C [address] , [place], [address] , [place] - [facility] - [facility] & [place] 5 13:26:10 Dysphagia 26218658 Active 2024 Cornelio Cooper PA-C [address] , [place], [address] , [place] - [facility] - [facility] & [place] 5 13:16:18 Diverticuliti s of intestine 367811346 Active 2024 Cornelio Cooper PA-C [address] [facility], [place], [address] , [place] - [facility] - [place] & [place] 5 15:57:22 Arthritis 5402865 Active 2022 Basia barney, [place] - [place] - [place] & [place] 3 14:48:04 Diabetes mellitus 16550452 Active 2022 Basia Palumbo null, [place] - [place] [place] & [place] 3 14:48:08 Hypercholeste rolemia 60022969 Active 2022 Basia Palumbo null[place] & [place] 3 14:48:19 Fibromyalgia 386283271 Active 2022 Basia Palumbo null, [place] & [place] 3 14:48:26 Irritable bowel syndrome 97689330 Active 2022 Basia Palumbo null, [place] - [facility] & [place] 3 14:48:30 Anemia 600069806 Active 2022 Britany Mujica null, [place] - [facility] [place] & [place] 3 14:03:28 Hypertensive disorder 55314674 Active 2022 Britany Mujica null, [place] - [place] - [facility] & [place] 3 14:03:37 Cardiac pacemaker in situ 264864507 Active 2022 Britany Mujica null, [place] - [facility] - [facility] & [place] 3 14:04:04 Anxiety 38658772 Active 2022 Britany Mujica null, [place] - [place] [place] & [place] 3 14:04:14 Asthma 534651067 Active 2022 Britany Mujica null, [place] & [place] 3 14:04:20 Seizure 56859116 Active 2022 Britany Mujica null, [place] - [facility] - [facility] & [place] 3 14:04:25 Problem Notes None recorded. Procedures Surgical History Date Name Laterality Status Provider Name and Address Organization Details Recorded Time 025 Colonoscopy completed Thompson Patel [place] - [facility] [place] & [place] 01/25/2025 12:58:03 025 cholecystectomy completed Katie Falcon [place] - [facility] [place] & [place] 12/27/2024 10:19:28 024 completed Danaysa Carey [place] - [place] [place] & [place] 01/25/2025 12:59:25 024 Most Recent Bone Density completed Danaysa Carey [place] - [place] [place] & [place] 01/25/2025 12:59:25 024 Other completed Danay Carey [place] - [place] - [facility] & [place] 01/25/2025 12:59:43 024 Joint Replacement [place] Danay [place] [facility] [place] 01/25/2025 12:59:43 023 Cystoscopy-Female completed Jordan Gil Jr, MD [address] [place] [address], [address] [facility], [place], [address], [place] - [facility] & [place] 03/06/2023 15:35:18 023 Date of Last Colonoscopy completed Danay Carey [place] - [place] - [place] & [place] 01/25/2025 12:59:25 023 Other completed Danay Carey [place] - [facility] & [place] 01/25/2025 12:59:43 023 Pacemaker/Defibril lator completed Danay Carey [place] - [place] - [place] & [place] 01/25/2025 12:59:43 023 Abdominal Surgery completed Danay Carey [place] - [place] - [place] & [place] 01/25/2025 12:59:43 022 Cardiovascular Surgery completed Danay [place] - [facility] & [place] 01/25/2025 12:59:43 020 total replacement of hip completed Basia NIEVES - [facility] - [place] & [place] 12/03/2022 15:14:14 020 Head or Neck Surgery completed Danay [place] - [place] - [place] & [place] 01/25/2025 12:59:43 020 Hip Surgery completed Danay [place] [facility] & [place] 01/25/2025 12:59:43 019 Joint Replacement completed Danay [place] [facility] & [place] 01/25/2025 12:59:43 019 Hip Surgery completed Danay [place] [facility] & [place] 01/25/2025 12:59:43 016 EGD/Endoscopy completed Basia NIEVES - [facility] - [place] & [place] 12/03/2022 15:14:01 014 Colonoscopy completed Basia Tavares LPMACARIO [facility] & [place] 12/03/2022 15:13:52 004 Date of Last Pap Smear completed Danaysa Carey LIZBETH Tavares LPMACARIO [facility] & [place] 01/25/2025 12:59:25 975 Tonsillectomy/Jonathan oidectomy completed Danaysa Carey LIZBETH Tavares LPMAC[facility] & [place] 01/25/2025 12:59:43 neck repair completed Britany Tavares MAGED [facility] & [place] 03/06/2023 14:05:26 procedure on knee completed Denyskannan Mujica LIZBETH Tavares LPMAC[facility] & [place] 03/06/2023 14:05:44 Total Hysterectomy completed Sanjaywesly osei Guanako LIZBETH Tavares [facility] & [place] 03/06/2023 14:05:56 cardiac pacemaker procedure completed Denyskannan Mujica LIZBETH Tavares LPM[facility] & [place] 03/06/2023 14:06:07 pain assessment completed Britany LYNNE [facility] & [place] 03/06/2023 14:06:20 Imaging Results Imaging Date Name Status LastModified by Organiz ation Details LastModified Time 10/18/2024 NM, gastric emptying scan completed [email or web address] [facility] [address] [facility], [place], [address], 12/24/2024 12:45:26 11/30/2024 medical clearance* completed [email or web address], [address], 12/01/2024 09:59:03 Procedure Notes None recorded. Medical Equipment None Reported. Allergies Allergen ID Allergen Name Allergen Category Reaction Reaction Severity Criticality Documentation Date Start Date Code Code System Note Provider Name and Address Organization Details Recorded Time 939828 meclizine medicatio n Not available Not available Not available 08/24/2023 6676 RxNorm LIZBETH Baker [facility] & [place] 10:59:14 55144 Benadryl medicatio n Not available Not available Not available 12/03/2022 97235 7 RxNorm LIZBETH Rodriguez [facility] & [place] 3 14:47:43 94288 tetanus and diphtheri a toxoids Not available Not available Not available Not available 12/03/2022 80091 UNK LIZBETH Rodriguez [facility] & [place] 3 14:47:55 51908 adhesive environme nt,medica tion Not available Not available Not available 03/06/2023 90856 UNK LIZBETH Muñoz [facility] & [place] 3 13:49:50 Medications Name Sig Start Date Stop Date Status Note LastModified by Organization Details LastModified Time clindamycin /mupirocin 100/20mg topical capsule (xylitol) [14270] MIX THE CONTENTS OF 1 CAPSULE WITH [...] Not Available No t Available Dexcom G6 [employer] 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 56 g 97 % 97 % 97 /min 98.1 [degF] 94 /min 161 mm[Hg] 83 mm[Hg] Danay Carey [facility] & [place] 4 10:17:17 Date Recorded Body height Body mass index (BMI) Body weight Body temperature Oxygen saturation Oxygen saturation in Arterial blood by Pulse oximetry Heart rate Systolic blood pressure Diastolic blood pressure Provider Name and Address Organization Details Last Updated DateTime 5 170.18 cm 43.7 kg/m2 733604. 19 g 97.3 [degF] 97 % 97 % 70 /min 136 mm[Hg] 91 mm[Hg] Thompson rabago [facility] & [place] 5 13:00:01 Date Recorded Body height Body mass index (BMI) Body weight Body temperature Heart rate Systolic blood pressure Diastolic blood pressure Provider Name and Address Organization Details Last Updated DateTime 5 170.18 cm 43.8 kg/m2 292639. 15 g 97.7 [degF] 73 /min 128 mm[Hg] 88 mm[Hg] Katie NIEVES [facility] & [place] 5 09:56:54 Date Recorded Body height Body mass index (BMI) Body weight Body temperature Heart rate Systolic blood pressure Diastolic blood pressure Provider Name and Address Organization Details Last Updated DateTime 5 170.18 cm 43.6 kg/m2 941159. 48 g 96.6 [degF] 73 /min 126 mm[Hg] 76 mm[Hg] Katie NIEVES [facility] & [place] 5 10:16:07 Date Recorded Body height Body mass index (BMI) Body weight Heart rate Heart rate Oxygen saturation Oxygen saturation in Arterial blood by Pulse oximetry Body temperature Systolic blood pressure Diastolic blood pressure Provider Name and Address Organization Details Last Updated DateTime 5 170.18 cm 44.1 kg/m2 343126. 97 g 73 /min 72 /min 97 % 97 % 98.2 [degF] 142 mm[Hg] 80 mm[Hg] Danay Carey [facility] & [place] 5 13:00:07 Social History Question Answer Notes LastModified by Organizat ion Details LastModified Time Tobacco Smoking Status Current Every Day Smoker Basia Deepali barney LIZBETH [facility] & [place] 12/03/2022 15:13:21 Do You Have An Advance Directive? No [email or web address] Information not available 01/25/2025 What Is Your Level Of Alcohol Consumption? None [email or web address] Information not available 12/03/2022 Are You Blind Or Do You Have Difficulty Seeing? No [email or web address] Information not available 01/25/2025 What Was The Date Of Your Most Recent Tobacco Screening? 08/15/2024 [email or web address] Information not available 01/25/2025 Are You Passively Exposed To Smoke? No [email or web address] Information no t available 01/25/2025 Do You Or Have You Ever Used Smokeless Tobacco? Never Used Smokeless Tobacco [email or web address] Information not available 01/25/2025 How Much Tobacco Do You Smoke? 1 PPW [email or web address] Information not available 01/25/2025 Do You Feel Stressed (tense, Restless, Nervous, Or Anxious, Or Unable To Sleep At Night)? [id number] [email or web address] Information not available 01/25/2025 Do You Use Any Illicit Or Recreational Drugs? No [email or web address] Information not available 12/03/2022 How Many Years Have You Smoked Tobacco? 31 [email or web address] Information not available 01/25/2025 Sex: Female Functional Status Question Answer Note LastModified by Organization D etails LastModified Time What is your exercise level? None [email or web address] Information not available 01/25/2025 Mental Status None recorded. Family History Relationship Description Onset Age of this Age Resolved Age Notes LastModified by Organization Details LastModified Time Mother Hypertensive disorder [email or web address] Not available 12/03 15:12:55 Father Coronary arterioscler osis [email or web address] Not available 2024 12:46:07 Father Hypertensive disorder [email or web address] Not available 03/2023 11:00:03 Father Heart disease [email or web address] Not available 03/2023 11:00:12 Brother Coronary arterioscler osis dec [email or web address] Not available 2024 12:46:07 Brother Diabetes mellitus [email or web address] Not available 2024 12:46:07 Paternal Grandmother Obesity [email or web address] Not available 1 10/24/2022 10:59:38 Maternal Grandfather [...] completed Katie Falcon null, [place] [facility] & [place] 11/24/2024 10:00:11 zoster recombinant 5 completed Katie Falcon [place] & [place] 11/24/2024 10:01:26 pneumococcal, unspecified formulation 3 completed Katie Falcon [place], [place] [facility] [facility] & [place] 11/24/2024 10:01:07 Influenza, split virus, quadrivalent, preservative 2 completed Danay [place], [place] [facility] [facility] & [place] 01/25/2025 12:59:55 COVID-19, mRNA, LNP-S, PF, 30 mcg/0.3 mL dose 1 completed Danay [place], [place] [facility] [facility] & [place] 01/25/2025 12:59:55 COVID-19, mRNA, LNP-S, PF, 30 mcg/0.3 mL dose 1 completed Danay [place], [place] [facility] & [place] 01/25/2025 12:59:55 Pneumococcal conjugate PCV20, polysaccharide [id number] conjugate, adjuvant, PF 2 completed Danay [place], [place] [facility] & [place] 01/25/2025 12:59:55 Influenza, split virus, trivalent, preservative 9 completed Danay [place] null, [place] [facility] & [place] 01/25/2025 12:59:55 Influenza, split virus, quadrivalent, PF 3 completed Danay Carey [facility] [place] - [facility] - [place] & [place] 01/25/2025 12:59:55 Past Encounters Encounter ID Performer Location Encounter Start Date Encounter Closed Date Diagnosis/Indication Diagnosis SNOMED-CT Code Diagnosis ICD10 Code Diagnosis Note [id number] JO[facility] [address] [place] [phone] 12/03/2022 14:14:46 12/05/2022 12:48:30 Dysphagia 81988609 R13.10 Given recent history of dysphagia, recommend EGD at time of colonoscop y for further evaluation and dilatation if warranted. Pt is scheduled for EGD/Colon 01/14 @ 9:00 AM. Patient reminded to stop ozempic 2 weeks prior to scopes. [id number] Jordan Gil Jr, MD [facility] [address] [address] 03/06/2023 13:27:03 03/06/2023 15:14:33 Difficulty passing urine 847464354 R39.198 52-year-ol d white female with multiple [...] if she has any worsening of symptoms. [id number] Kieran Anna MD [facility] [address] [place] [address] 03/16/2024 09:31:51 03/16/2024 10:12:15 History of sick sinus syndrome [id number] 92769 Z86.79 with [employer] pacemaker implant 08/12/22. normally functionin g, will follow up the interrogat ion. Cardiac pa cemaker in situ [id number] Z95.0 [employer] [facility]. Essential hypertension 37885137 I10 controlled continue medication s Dyslipidemia 353196985 E 78.5 on statin follow up fasting lipid profile. Cigarette smoker 7690425 7 F17.210 strongly encouraged to quit and offered help. Sleep apnea 24987254 G47 .30 On CPAP Obesity 773392464 E66.9 BMi 45. recommend weight loss. [id number] Cornelio Cooper PA-C [facility] [address] [place] [address] 08/17/2024 10:07:21 08/17/2024 10:59:29 Gastroesophageal reflux disease without esophagitis 971668318 K21.9 -I have recommende d she change the timing of Pantoprazo le to 30 minutes before morning and evening meal.-Rx provided for famotidine to use as needed for breakthrou gh symptoms. Regurgitat ion of gastric content 90905571 R11.10 -Obtain gastric emptying study. Continue PPI. Nausea 497642990 R11.0 Chronic. Refill provided for ondansetro n-Obtain Gastric emptying study to evaluate for possible diabetic gastropare sis. Constipati on alternates with diarrhea 308488213 K59.00 More constipati on predominat e. Possible with overflow. Start laxative therapy per below. Chronic id iopathic constipation 57833241 K59.04 Previously refractory to Miralax and Senna. Start Linzess 145 mcg p.o. once daily. History of polyp of colon 892056871 Z86.0100 -Recommend surveillan ce colonoscop y 02/2028. Last exam was 02/[address] Hatfield with hyperplast ic polyp removed. She recalls a history of multiple polyps removed previous to this. History of diverticulitis 3548531108 11233 Z87.19 -Last episode was several years ago. Notes multiple episodes, previously hospitaliz ed at [facility].-High fiber diet recommende d.-Measure s to avoid constipati on discussed- Colonoscop y last year showed diverticul osis. [id number] Cornelio Cooper PA-C [facility] [address] [place] [address] 11/15/2024 12:34:01 11/15/2024 13:20:03 Chronic idiopathic constipation 67857411 K59.04 Previously refractory to Miralax and Senna. Start Linzess 145 mcg p.o. once daily.-I have provided her with a paper prescripti on due to her pharmacy not previously receiving the eScript.-S amples were provided in the office today (#8) Gastroesop hageal reflux disease without esophagitis 120159508 K21.9 Continue Pantoprazo le once daily and famotidine at bedtime. Symptoms are stable. Nausea 729205007 R11.0 Chronic. Continue ondansetro n, refill provided.- Gastric emptying study was normal 10/18/2024 . No findings on prior EGD to explain nausea.-Sy mptoms appear consistent with biliary dyskinesia . She reported unremarkab le GBUS and HIDA scan last year at [facility], however she noted experienci ng symptom reproducti on with administra tion of CCK.Will refer to general surgery for possible elective cholecyste ctomy. Will request imaging records from [facility]. History of polyp of colon 370942199 Z86.0100 -Recommend surveillan ce colonoscop y 02/2028. Last exam was 02/[address] Hatfield with hyperplast ic polyp removed. She recalls a history of multiple polyps removed previous to this. Biliary dyskinesia 2007 K82.8 [id number] Sakina Tran MD [facility] [address] [place] [address] 11/24/2024 09:48:00 11/24/2024 10:39:05 Biliary dyskinesia 520712884 K82.8 The patient seems to have symptomati [...] patient's care. Cardiac pa jose in situ 582087081 Z95.0 Will obtain cardiac risk stratifica tion preoperati vely [id number] Sakina Tran MD [facility] [address] [place] [address] 12/27/2024 10:08:07 12/27/2024 10:55:07 Chronic cholecystitis with calculus 32750220 K80.10 stable postop. Patient does have a reaction to the Monocryl suture. We discussed that this should continue to improve with conservati ve management . She can use an over-the-c ounter antihistam ine as needed. She has no restrictio ns from a surgical standpoint . We discussed that the nausea should continue to improve with time. Skin react ion to suture material 612647475 T88.8XXA R23.9 [id number] Cornelio Cooper PA-C [facility] [address] [facility] [address] [place] [address] 01/25/2025 12:45:40 01/25/2025 13:20:02 Chronic idiopathic constipation 43297757 K59.04 Continue Linzess 145 mcg once daily. Improved. Gastroesop hageal reflux disease without esophagitis 439210714 K21.9 -Not optimally controlled . Stop pantoprazo le. Start Dexlansopr azole 60 mg p.o. once daily. Nausea 769323002 R11.0 Resolved following recent cholecyste ctomy. GES was normal 10/18/24. History of polyp of colon 393868603 Z86.0100 -Repeat surveillan ce colonoscop y 12/2029. Dysphagia 21281137 R13.1 0 She describes both oropharyng eal and esophageal dysphagia symptoms. Empiric dilation performed in 2022 at [facility]. She is unclear if this was beneficial .-Obtain esophagram and MBS. Consider repeat EGD. Health Concerns Section Related Observation LastModified by Organization Antonia warner LastModified Time None Recorded Concern Status LastModified by Organization Details LastModified Time None Recorded Advance Directives Directive N: Payers Encounter Date Sequence Insurance Name Policy Number Policy Victoria Covered Member ID Victoria Member ID Guarantor Name 08/17/2024 1 SAILAJA-LIZBETH: [id number] Frannie Villalobos Nuñez [id number] Frannie Villalobos Nuñez 11/15/2024 1 [employer] [facility] [facility] (MEDICAID HMO) Frannie Villalobos Nuñez [id number] Frannie Villalobos Nuñez 11/24/2024 1 [employer] [facility] (MEDICAID HMO) Frannie Villalobos Nuñez [id number] Frannie Villalobos Nuñez 12/27/2024 1 [employer] [facility] (MEDICAID HMO) Frannie Villalobos Nuñez [id number] Frannie Villalobos Nuñez 01/25/2025 1 [employer] [facility] (MEDICAID HMO) Frannie Villalobos Nuñez [id number] Frannie Gambleood Notes Date Note Type Note Provider Name and Address Organization Details Recorded Time 08/17/2024 text/html Very pleasant 54-year-old female who was referred to establish care for chronic GI issues including chronic nausea, GERD, regurgitation, and alternating constipation and diarrhea. She states that the referring provider is no longer her PCP. She was previously established with GI at [facility]. She underwent EGD and colonoscopy there 03/04/23 [...] that they were unremarkable. Cornelio Cooper PA-C [address], [place], [address], [facility] 08/17/2024 11:44:06 11/15/2024 text/html CURRENT (11/15/24 ): [...] having a GBUS and HIDA scan at [facility] last year that she was told was normal. She tells me that she did experience quite a bit of nausea during the HIDA scan. Cornelio Cooper PA-C [address], [place], [address], [facility] - [facility] 11/15/2024 13:28:38 11/24/2024 text/html 54-year-old woma n referred for chronic nausea. 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 Denies chest pain or SOA Sakina Tran MD [address], [place], [address], [place] [facility] & [place] 11/24/2024 11:08:33 12/27/2024 text/html Two weeks status post robotic cholecystectomy. Pathology showed gallstones with chronic cholecystitis. She feels well overall, has some itching surrounding her incision sites. She has some mild nausea postprandially which is starting to improve. Sakina Tran MD [address], [place], [address], [facility] - [facility] & [place] 12/27/2024 11:41:25 01/25/2025 text/html CURRENT (01/25/25) : [...] recent addition of Linzess. Cornelio Cooper PA-C [address], [place], [address], [place] - [facility] & [place] 01/25/2025 22:00:35 OBGyn Episode No OBEpisode recorded.
--- NOTE | 2025-02-15 10:14 | FL_ITS ---
FINAL REPORT CLINICAL HISTORY: dysphagia mGy 1121.93 Fluoro time: 1.25 FINDINGS: ESOPHAGRAM HISTORY: Dysphagia. PROCEDURE: The patient ingested barium. Effervescent crystals were also administered. 15 images were obtained. Fluoro time: 1 minute 25 seconds Radiation exposure in Reference air Kerma: 1121.93 mGy. FINDINGS: The esophagus is normal. There is small sliding-typehiatal hernia. There is no gastroesophageal reflux. Peristalsis is normal. A 13 mm barium tablet passes through the esophagus and into the stomach without delay. Cervical fusion hardware is noted. IMPRESSION: Small sliding-type hiatal hernia. Reviewed, Interpreted and Dictated by Paulie Branham MD Transcribed by JOSE Esparza Authenticated and [facility]
--- NOTE | 2025-02-15 10:14 | FL_ITS ---
FINAL REPORT CLINICAL HISTORY: DYSPHAGIA 364.64 dap 3.48 fluoro time FINDINGS: MODIFIED BARIUM SWALLOW History: Dysphagia. FINDINGS: Fluoroscopy was provided for the speech pathologist to evaluate the swallowing mechanism. The patient was given several different consistencies of barium while the swallow was visualized fluoroscopically. The report of the speech pathologist should be consulted prior to making dietary decisions. Fluoro time: 3 minutes 48 seconds Radiation exposure in Reference air Kerma: 364.64 mGy. IMPRESSION: Modified barium swallow under fluoroscopic guidance. Please see the report of the speech pathologist for more detail. Reviewed, Interpreted and Dictated by Kristi Tyler MD Transcribed by JOSE Esparza Authenticated and [facility]
[2025-02-15] MEDS: BARIUM SULFATE(E-Z-AC);1900ML BOTTLE 1900 ML PO (11:04)
[2025-02-15] MEDS: BARIUM SULFATE (E-Z-HD 340GM);135ML BOTTLE 135 ML PO (11:04)
[2025-02-15] MEDS: E-Z-GASII EFFERVESCENT GRANULES;1PK 1 EACH PO (11:04)
== END 2025-02-15 23:59 | disposition home or self-care (01) ==
LOC: RAD 10:09
PROVIDERS: PCP Nurse Practitioner Family; Visit Provider Physician Assistant
DX: R13.10 Dysphagia, unspecified (principal)
CPT/HCPCS: 74220; 74230; 92611

== ENCOUNTER 2025-02-17 14:09 | Outpatient (CLI) | payer OTHER, SELFPAY ==
--- OUTSIDE RECORDS SUMMARY | 2025-02-17 14:11 | XMS_ITS | Continuity of Care Document ---
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 Plan of Treatment Reminders Order Date Submit Date Provider Last Modified By Organization Details Last Modified Time Details Appointments None record ed. Lab None record ed. Referral None record ed. Procedures None record ed. Surgeries None record ed. Imaging None record ed. Medication Orders None record ed. Patient TargetsNo targets recorded. Patient InstructionsNo instructions recorded. Reason for Referral None Reported. Results Created Date Observation Date Name Description Value Unit Range Abnormal Flag Note LastModifiedBy Organization Detail LastModifiedTime 11/30/1911/30/2024 medic al clear ance* No observ ation record ed. [email or web address] [address], [address], 12/01/2024 09:59:03 02/18/20 25 02/15/2025 XR, esoph agram No observ ation record ed. [facility] [address], [place], [address], 02/17/2025 11:15:24 Result Notes None recorded. Problems Name Problem SNOMED Code Status Onset Date Resolution Date Notes Provider Name and Address Organization Details Recorded Time Gastroesophag eal reflux disease without esophagitis 705763503 Active 2023 Cornelio Cooper PA-C [address] [facility], [place], [address] , [facility] 10/30/202 4 10:33:08 Regurgitation of gastric content 81559069 Active 2023 Cornelio Cooper PA-C [address], [place], [address] , [place] [facility] [place] & [place] 4 10:33:35 Nausea 160453358 Active [address], [place], [address] , [place] [facility] [place] 4 10:33:43 Chronic idiopathic constipation 24007281 Active [address], [place], [place], [address] [place] [address] , [place] [facility] [place] 4 10:35:21 Constipation alternates with diarrhea 685982135 Active [address], [place], [place], [address] [place] [address] , [place] [facility] [place] [facility] & [place] 4 10:36:31 Biliary dyskinesia 914853617 Active [address] , [place], [address] , [place] [facility] [place] [facility] & [place] 5 13:26:10 Dysphagia 14891282 Active [address], [place], [place], [address] [place] [address] , [place] [facility] [place] [facility] & [place] 5 13:16:18 Diverticuliti s of intestine 054951483 Active [address], [place], [address] , [place] [facility] [place] 5 15:57:22 Arthritis 0808321 Active 2022 Basia Deepali barney, [place] [facility] [place] 3 14:48:04 Diabetes mellitus 59050340 Active 2022 Basia Palumbo null, [place] [facility] [place] 3 14:48:08 Hypercholeste rolemia 83986615 Active 2022 Basia Palumbo null[place] 3 14:48:19 Fibromyalgia 022662848 Active 2022 Basia Palumbo null[place] 3 14:48:26 Irritable bowel syndrome 98655864 Active 2022 Basia Palumbo null[place] 3 14:48:30 Anemia 809843940 Active 2022 Britany Mujica null[place] [facility] [place] 3 14:03:28 Hypertensive disorder 01383377 Active 2022 Britany Mujica null[place] [place] 3 14:03:37 Cardiac pacemaker in situ 610909441 Active 2022 Britany Muj[place] null[place] 3 14:04:04 Anxiety 08008284 Active 2022 Britany Mujica null[place] 3 14:04:14 Asthma 056153868 Active 2022 Britany Muj[place] null[place] [place] 3 14:04:20 Seizure 43536031 Active 2022 Britany Muj[place] null[place] [place] 3 14:04:25 Problem Notes None recorded. Procedures Surgical History Date Name Laterality Status Provider Name and Address Organization Details Recorded Time 025 Colonoscopy completed Thompson Patel [place] [facility] [place] & [place] 01/25/2025 12:58:03 025 cholecystectomy completed Katie [place] 12/27/2024 10:19:28 024 completed Danay [place] & [place] 01/25/2025 12:59:25 024 Most Recent Bone Density completed Danay [place] 01/25/2025 12:59:25 024 Other completed Danay [place] [facility] 01/25/2025 12:59:43 024 Joint Replacement completed [place]ay [place] 01/25/2025 12:59:43 023 Cystoscopy-Female completed Jordan Gil Jr, MD [address] [place] [address], [address], [place], [address], [place] [facility] [place] 03/06/2023 15:35:18 023 Date of Last Colonoscopy completed Danay [place] [facility] 01/25/2025 12:59:25 023 Other completed [place]ay [place] 01/25/2025 12:59:43 023 Pacemaker/Defibril lator completed [place]ay [place] 01/25/2025 12:59:43 023 Abdominal Surgery completed [place]ay [place] 01/25/2025 12:59:43 022 Cardiovascular Surgery completed [place]ay [place] 01/25/2025 12:59:43 020 total replacement of hip completed Basia [place] [facility] [place] 12/03/2022 15:14:14 020 Head or Neck Surgery completed [place]ay [place] 01/25/2025 12:59:43 020 Hip Surgery completed [place]ay [place] 01/25/2025 12:59:43 019 Joint Replacement completed [place]ay [place] [facility] [place] [facility] & [place] 01/25/2025 12:59:43 019 Hip Surgery completed Danay Menchacawell [place] [facility] [place] [facility] & [place] 01/25/2025 12:59:43 016 EGD/Endoscopy completed Basia LYNNE [facility] [place] [facility] & [place] 12/03/2022 15:14:01 014 Colonoscopy completed Basia LYNNE [facility] [place] [facility] & [place] 12/03/2022 15:13:52 004 Date of Last Pap Smear completed Danay LYNNE [facility] [place] [facility] & [place] 01/25/2025 12:59:25 975 Tonsillectomy/Jonathan oidectomy completed Danay Menchacawell [place] [facility] [facility] [place] [facility] & [place] 01/25/2025 12:59:43 neck repair completed Britany LYNNE [facility] [place] [facility] & [place] 03/06/2023 14:05:26 procedure on knee completed Denyskannan Guanako LYNNE [facility] [place] [facility] & [place] 03/06/2023 14:05:44 Total Hysterectomy completed Helena uMjica [place] [facility] [place] [facility] & [place] 03/06/2023 14:05:56 cardiac pacemaker procedure completed Denyskannan Guanako [facility] [place] [facility] & [place] 03/06/2023 14:06:07 pain assessment completed Denyskannan Guanako [facility] [facility] [place] [facility] & [place] 03/06/2023 14:06:20 Imaging Results None recorded. Procedure Notes None recorded. Medical Equipment None Reported. Allergies Allergen ID Allergen Name Allergen Category Reaction Reaction Severity Criticality Documentation Date Start Date Code Code System Note Provider Name and Address Organization Details Recorded Time 406289 meclizine medicatio n Not available Not available Not available 08/24/2023 6676 RxNorm Anabella barney [place] Tava[place] [facility] [place] [facility] & [place] 10:59:14 202244 Substance with sulfonami de structure and antibacte rial mechanism of action (substanc e) medicatio n nausea severe Not available 02/16/2025 71546 8003 SNOMED Vanda barney, [place] LYNNE [facility] [place] [facility] & [place] 5 11:56:11 30203 Benadryl medicatio n Not available Not available Not available 12/03/2022 64174 7 RxNorm Basia barney, [place] LYNNE [facility] [place] [facility] & [place] 3 14:47:43 32842 tetanus and diphtheri a toxoids Not available Not available Not available Not available 12/03/2022 48263 UNK [place] Rodriguez [facility] [place] [facility] & [place] 3 14:47:55 44353 adhesive environme nt,medica tion Not available Not available Not available 03/06/2023 75191 UNLI[place]BETH Silverman [facility] [place] [facility] & [place] 13:49:50 Medications Name Sig Start Date Stop Date Status Note LastModified by Organization Details LastModified Time clindamycin /mupirocin 100/20mg topical capsule (xylitol) [61378] MIX THE CONTENTS OF 1 CAPSULE WITH [...] Not Available atorvastati n 80 mg tablet 1 tablet daily active Not Available Not Available No t Available venlafaxine ER 37.5 mg capsule,ext ended [...] Available Not Available glyburide 5 mg tablet active Not Available Not Available No t Available tizanidine 4 mg tablet 03/16 completed Not Available Not Available Not Available hydrocodone 5 mg-acetamin ophen 325 mg tablet 11/15 completed Not Available Not Available Not Available ondansetron HCl 8 mg tablet 03/06 completed Not Available Not Available Not Available minocycline 100 mg capsule 03/16 completed Not Available Not Available Not Available FreeHanyn Marquez 28 gauge active Not Available Not Available [...] cyanocobala min (vit B-12) 1,000 mcg tablet TAKE 1 TABLET BY MOUTH ONCE A DAY BEFORE meals active Not Available Not Available No t Available hydroxyzine pamoate 50 mg capsule 03/16 [...] Available Not Available famotidine 20 mg tablet Take 1 tablet twice a day by oral route as needed for 30 days. active Not Available Not Available No t Available aspirin 325 mg tablet,nydia yed release 11/15 [...] Available Not Available lisinopril 10 mg tablet active Not Available Not Available Not Available promethazin [...] Available Not Available gabapentin 300 mg capsule active Not Available Not Available Not Available diclofenac sodium 75 mg tablet,nydia yed release 03/06 completed Not Available Not Available Not Available bumetanide 1 mg tablet 03/16 completed Not Available Not Available Not Available folic acid 1 mg tablet TAKE ONE TABLET BY MOUTH ONCE A DAY active Not Available Not Available No t Available lisinopril 5 mg tablet 01/25 completed [...] No t Available Farxiga 10 mg tablet active Not Available Not Available No t [...] Not Available No t Available Dexcom G6 [employer] Sanitation active Not Available Not Available Not Available Dexcom G6 Transmitter device active Not Available Not Available Not Available Emgality Pen 120 mg/mL subcutaneou s pen injector INJECT 120 MG SUBCUTANE OUSLY ONCE A MONTH active Not Available Not Available No t Available Motegrity 2 mg tablet Take 1 tablet every day by oral route for 30 days. 2024 active Not Available Not Available Not Avai lable OneTouch Ultra2 Meter active Not Available Not Available Not Available OneTouch Delica Plus Lancet 33 gauge active Not Available Not Available Not Available [facility] ODT 75 mg disintegrat ing tablet 03/16 completed Not Available Not Available Not Available [facility] ODT 03/16 completed Not Available Not [...] (2 mg/3 mL) subcutaneou s pen injector Inject by subcutane ous route. active Not Available Not Available No t Available Vitals Date Recorded Body height Body mass index (BMI) Body weight Body temperature Heart rate Systolic blood pressure Diastolic blood pressure Provider Name and Address Organization Details Last Updated DateTime 5 170.18 cm 43.6 kg/m2 992171. 48 g 96.6 [degF] 73 /min 126 mm[Hg] 76 mm[Hg] Katie NIEVES - [facility] & [place] 5 10:16:07 Social History Question Answer Notes LastModified by Organizat ion Details LastModified Time Tobacco Smoking Status Current Every Day Smoker Basia barney, [place] - [place] & [place] 12/03/2022 15:13:21 Do You Have An Advance Directive? No [email or web address] Information not available 01/25/2025 What Is Your Level Of Alcohol Consumption? None [email or web address] Information not available 12/03/2022 Are You Blind Or Do You Have Difficulty Seeing? No Information not available 01/25/2025 What Was The Date Of Your Most Recent Tobacco Screening? 08/15/2024 [email or web address] Information not available 01/25/2025 Are You Passively Exposed To Smoke? No [email or web address] Information no t available 01/25/2025 Do You Or Have You Ever Used Smokeless Tobacco? Never Used Smokeless Tobacco [email or web address] Information not available 01/25/2025 How Much Tobacco Do You Smoke? 1 PPW Information not available 01/25/2025 Do You Feel Stressed (tense, Restless, Nervous, Or Anxious, Or Unable To Sleep At Night)? [id number] [email or web address] Information not available 01/25/2025 Do You Use Any Illicit Or Recreational Drugs? No [email or web address] Information not available 12/03/2022 How Many Years Have You Smoked Tobacco? 31 [email or web address] Information not available 01/25/2025 Sex: Female Functional Status Question Answer Note LastModified by Organization D etails LastModified Time What is your exercise level? None [email or web address] Information not available 01/25/2025 Mental Status None recorded. Family History Relationship Description Onset Age of this Age Resolved Age Notes LastModified by Organization Details LastModified Time Mother Hypertensive disorder [email or web address] Not available 12/03 15:12:55 Father Coronary arterioscler osis [email or web address] Not available 2024 11:07:22 Father Hypertensive disorder [email or web address] Not available 03/2023 11:00:03 Father Heart disease [email or web address] Not available 03/2023 11:00:12 Brother Coronary arterioscler osis dec [email or web address] Not available 2024 11:07:22 Brother Diabetes mellitus [email or web address] Not available 2024 11:07:22 Paternal Grandmother Obesity [email or web address] Not available 1 10/24/2022 10:59:38 Maternal Grandfather Asthma [email or web address] Not available 10/2024 11:07:22 Paternal Uncle Heart disease [email or web address] Not available 2023 09:46:19 Medical History Condition Response Other Y Depression Y Hypothyroidism Y Obstructive Sleep Apnea Y Anxiety Disorder Y Arthritis Y High Cholesterol Y Psychiatric/Mental Health Condition Y Headaches Y Anemia Y Neurological Problems Y Diabetes Y Seizures/Epilepsy Y Congestive Heart Failure (CHF) Y Hyperlipidemia Y Back Problems Y Asthma Y Reflux/GERD Y Sleep Apnea Y Heart [...] Katie [place], [place] [facility] & [place] 11/24/2024 10:00:11 zoster recombinant 5 completed Katie [place] 11/24/2024 10:01:26 pneumococcal, unspecified formulation 3 completed Katie [place] 11/24/2024 10:01:07 Influenza, split virus, quadrivalent, preservative 2 completed Danay [place] 01/25/2025 12:59:55 COVID-19, mRNA, LNP-S, PF, 30 mcg/0.3 mL dose 1 completed [place] 01/25/2025 12:59:55 COVID-19, mRNA, LNP-S, PF, 30 mcg/0.3 mL dose 1 completed [place] [facility] [facility] [place] [facility] & [place] 01/25/2025 12:59:55 Pneumococcal conjugate PCV20, polysaccharide BCQ402 conjugate, adjuvant, PF 2 completed [place] 01/25/2025 12:59:55 Influenza, split virus, trivalent, preservative 9 completed [place] 01/25/2025 12:59:55 Influenza, split virus, quadrivalent, PF 3 completed [place] 01/25/2025 12:59:55 Past Encounters Encounter ID Performer Location Encounter Start Date Encounter Closed Date Diagnosis/Indication Diagnosis SNOMED-CT Code Diagnosis ICD10 Code Diagnosis Note [id number] Sakina Tran MD [facility] [address] [place] [address] 12/27/2024 10:08:07 12/27/2024 10:55:07 Chronic cholecystitis with calculus 34037236 K80.10 stable postop. Patient does have a reaction to the Monocryl suture. We discussed that this should continue to improve with conservati ve management . She can use an over-the-c ounter antihistam ine as needed. She has no restrictio ns from a surgical standpoint . We discussed that the nausea should continue to improve with time. Skin react ion to suture material 310798417 T88.8XXA R23.9 Health Concerns Section Related Observation LastModified by Organization Detai ls LastModified Time None Recorded Concern Status LastModified by Organization Details LastModified Time None Recorded Payers Encounter Date Sequence Insurance Name Policy Number Policy Victoria Covered Member ID Victoria Member ID Guarantor Name 12/27/2024 1 [employer] [facility] (MEDICAID HMO) Frannie Nuñez [id number] Frannie Nuñez Notes Date Note Type Note Provider Name and Address Organization Details Recorded Time 12/27/2024 text/html Two weeks status post robotic cholecystectomy. Pathology showed gallstones with chronic cholecystitis. She feels well overall, has some itching surrounding her incision sites. She has some mild nausea postprandially which is starting to improve. Sakina Tran MD [address], [place], [address] [place] [facility] [place] 12/27/2024 11:41:25 OBGyn Episode No OBEpisode recorded.
--- OUTSIDE RECORDS SUMMARY | 2025-02-17 14:11 | XMS_ITS | Data Portability ---
Author Organization [facility] & [place] [facility] ADMIN Address [address] [place] [id number] Care Team Providers Care Supervisor Chassis Assembly Name Role Phone NIECY HATFIELD Activity Director Assessment Encounter Date Assessment Date Assessment LastModified by Organization Details LastModified Time 11/15/2024 11/15/2024 54-year-old female with chronic nausea, ongoing constipation with intermittent diarrhea, and GERD. [email or web address] Not available 11/15/2024 13:22:41 01/25/2025 01/25/2025 54-year-old female with: [email or web address] Not available 01/25/2025 21:56:59 02/16/2025 02/16/2025 54-year-old female with: [email or web address] Not available 02/16/2025 11:54:06 Plan of Treatment Reminders Order Date Submit Date Provider Last Modified By Organization Details Last Modified Time Details Appointments None record ed. Lab None record ed. Referral genera [facility] khang pagan record s [facility] for HIDA scan and GBUS. Report ed as normal , but she recall s sympto m reprod uction with CCK. Chroni vani nausea carmina. Unrema rkable EGD and GES recent ly. 2024 025 [email or web address] Sakina Tran MD, [address], [place], [address], 09:57:02 Procedures None record ed. Surgeries None record ed. Imaging XR, esopha gram 2024 025 [email or web address] Scheduling Department -New Scheduling Process, [address] [facility] [address], [place], [address], 5 14:11:12 [place], francie ed barium kaley w study [email or web address] [place] [address] Scheduling Department -New Scheduling Process, [address] [facility] [address], [place], [address], 5 08:13:31 Medication Orders Motegr ity 2 mg tablet 2024 025 [facility], [address] [place] [address], [place], [id number], 5 12:13:53 Linzes s 145 mcg capsul e 2024 025 [email or web address] [facility], [address] [place] [address], [place], [id number], 5 11:56:29 dexlan sopraz ole 60 mg capsul e,biph ase delaye d releas e 2024 025 [facility], [address] [place] [address], [place], [id number], 5 15:18:34 Linzes s 145 mcg capsul e 2024 025 [facility], [address] [place] [address] [place], [id number], 5 10:02:03 ondans etron 4 mg disint egrati ng tablet 2024 025 [email or web address] [facility], [address] [place] [address] [place], [id number], 5 11:56:30 Patient TargetsNo targets recorded. Patient InstructionsNo instructions recorded. Reason for Referral General Surgeon Referral for Biliary dyskinesia Requesting records from [facility] for HIDA scan and GBUS. Reported as normal, but she recalls symptom reproduction with CCK. Chronically nauseated. Unremarkable EGD and GES recently. Referring Physician: Cornelio Cooper, Gastroenterology, Encounter Date: 11/15/2024 Results Created Date Observation Date Name Description Value Unit Range Abnormal Flag Note LastModifiedBy Organization Detail LastModifiedTime 11/24/1911/24/2024 CBC NO DIFF (HEMO GRAM) WBC 9.3 K/uL 4.0-10 .5 Not Available [facility] ([facility] [address] [facility], [place], [address], 11/24/2024 11:27:22 11/24/19 25 11/24/2024 CBC NO DIFF (HEMO GRAM) RBC 3.8 M/mm3 4.2-6. 4 low Not Available [facility] ([facility]) [address] [facility], [place], [address], 11/24/2024 11:27:22 11/24/19 25 11/24/2024 CBC NO DIFF (HEMO GRAM) HGB 11.8 gm/dL 12.5-1 6.0 low Not Available [facility] ([facility]) [address] [facility], [place], [address], 11/24/2024 11:27:22 11/24/19 25 11/24/2024 CBC NO DIFF (HEMO GRAM) HCT 36.8 % 37.0-4 7.0 low Not Available [facility] ([facility]) [address] [facility], [place], [address], 11/24/2024 11:27:22 11/24/19 25 11/24/2024 CBC NO DIFF (HEMO GRAM) MCV 95.8 fL 78-100 Not Available [facility] ([facility]) [address] [facility], [place], [address], 11/24/2024 11:27:22 11/24/19 25 11/24/2024 CBC NO DIFF (HEMO GRAM) MCH 30.7 pg 27-31 Not Available [facility] ([facility]) [address] , [place], [address], 11/24/2024 11:27:22 11/24/19 25 11/24/2024 CBC NO DIFF (HEMO GRAM) MCHC 32.1 g/dL 32-36 Not Available [facility] ([facility]) [address] , [place], [address], 11/24/2024 11:27:22 11/24/19 25 11/24/2024 CBC NO DIFF (HEMO GRAM) RDW 15.1 % 11.5-1 4.0 high Not Available [facility] ([facility]) [address] , [place], [address], 11/24/2024 11:27:22 11/24/19 25 11/24/2024 CBC NO DIFF (HEMO GRAM) platelet count 302 K/uL 150-45 0 Not Available [facility] ([facility]) [address] , [place], [address], 11/24/2024 11:27:22 11/24/19 25 11/24/2024 CBC NO DIFF (HEMO GRAM) MPV 10.2 fL 6-9.5 high Not Available [facility] ([facility]) [address] , [place], [address], 11/24/2024 11:27:22 11/24/19 25 11/24/2024 CBC NO DIFF (HEMO GRAM) manual differential NO Not Available [facility] ([facility]) [address] , [place], [address], 11/24/2024 11:27:22 11/24/19 25 11/24/2024 COMP METAB OLIC PANEL sodium 142 mmol/ L 136-14 5 Not Available [facility] ([facility]) [address] [place], [address], 11/24/2024 14:26:55 11/24/19 25 11/24/2024 COMP METAB OLIC PANEL potassium 4.2 mmol/ L 3.6-5. 0 Not Available [facility] ([facility]) [address] [place], [address], 11/24/2024 14:26:55 11/24/19 25 11/24/2024 COMP METAB OLIC PANEL chloride 106 mmol/ L 98-107 Not Available [facility] ([facility]) [address] [place], [address], 11/24/2024 14:26:55 11/24/19 25 11/24/2024 COMP METAB OLIC PANEL carbon dioxide 24.5 mmol/ L 21.0-3 2.0 Not Available [facility] ([facility]) [address] [place], [address], 11/24/2024 14:26:55 11/24/19 25 11/24/2024 COMP METAB OLIC PANEL anion gap 15.7 Not Available [facility] ([facility]) [address] [place], [address], 11/24/2024 14:26:55 11/24/19 25 11/24/2024 COMP METAB OLIC PANEL glucose 125 mg/dL 70-120 high Not Available [facility] ([facility]) [address] [place], [address], 11/24/2024 14:26:55 11/24/19 25 11/24/2024 COMP METAB OLIC PANEL BUN 14 mg/dL 7-18 Not Available [facility] ([facility]) [address] [place], [address], 11/24/2024 14:26:55 11/24/19 25 11/24/2024 COMP METAB OLIC PANEL creatinine 1.0 mg/dL 0.6-1. 3 Not Available [facility] ([facility]) [address], [place], [address], 11/24/2024 14:26:55 11/24/19 25 11/24/2024 COMP METAB [...] hale ing kiney funct ion. Not Available [facility] ([facility]) [address], [place], [address], 11/24/2024 14:26:55 11/24/19 25 11/24/2024 COMP METAB OLIC PANEL total protein 7.3 g/dL 6.4-8. 2 Not Available [facility] ([facility]) [address] , [place], [address], 11/24/2024 14:26:55 11/24/19 25 11/24/2024 COMP METAB OLIC PANEL albumin 3.3 g/dL 3.4-5. 0 low Not Available [facility] ([facility]) [address] , [place], [address], 11/24/2024 14:26:55 11/24/19 25 11/24/2024 COMP METAB OLIC PANEL globulin 4.0 Not Available [facility] ([facility]) [address] , [place], [address], 11/24/2024 14:26:55 11/24/19 25 11/24/2024 COMP METAB OLIC PANEL alb/glob ratio 0.8 0.7-2 Not Available [facility] ([facility]) [address], [place], [address], 11/24/2024 14:26:55 11/24/19 25 11/24/2024 COMP METAB OLIC PANEL calcium 9.8 mg/dL 8.5-10 .5 Not Available [facility] ([facility]) [address], [place], [address], 11/24/2024 14:26:55 11/24/19 25 11/24/2024 COMP METAB OLIC PANEL bilirubin total 0.20 mg/dL 0.10-1 .00 Not Available [facility] ([facility]) [address], [place], [address], 11/24/2024 14:26:55 11/24/19 25 11/24/2024 COMP METAB OLIC PANEL AST (SGOT) 15 U/L 0-37 Not Available [facility] ([facility]) [address], [place], [address], 11/24/2024 14:26:55 11/24/19 25 11/24/2024 COMP METAB OLIC PANEL ALT (SGPT) 28 U/L 0-65 Not Available [facility] ([facility]) [address], [place], [address], 11/24/2024 14:26:55 11/24/19 25 11/24/2024 COMP METAB OLIC PANEL alk phosphatase 170 U/L 46-116 high Not Available [facility] ([facility]) [address], [place], [address], 11/24/2024 14:26:55 12/14/19 25 12/22/2024 PATHO LOGY SPECI MEN pathology specimen SEE YOLANDA ENRIQUE Not Available [facility] ([facility]) [address] [place], [address], 12/22/2024 14:20:19 10/20/19 25 10/18/2024 NM, [facility] [address] [place] [address] Phone: Fax: Name: FRANNIE THOMPSON Exam Date: 2023 : 970 Age 54 years Gender : F Access ion: [id number] [phone] Physic rosa m: CORNELIO COOPER [place] [place] HSV: Outpat ient Exam: GASTRI [...] Natalia Sanchez 2023 Thank you for referr ing FRANNIE THOMPSON to [facility]. Legall y authen ticate d by ALISHA Neves 2023-10 12:08: 17 CC'ed Logic: Orderi ng Provid er: JONH MCKEON Attend ing Provid er: JONH MCKEON Referr ing Provid er: JONH MCKEON Admitt ing Provid er: JONH MCKEON [facility] [address], [place], [address], 12/24/2024 12:45:26 11/30/19 25 11/30/2024 medic al clear ance* No observ ation record ed. [email or web address] [address], [address], 12/01/2024 09:59:03 02/18/20 25 02/15/2025 XR, esoph agram No observ ation record ed. [facility] [address], [place], [address], 02/17/2025 11:15:24 Result Notes None recorded. Problems Name Problem SNOMED Code Status Onset Date Resolution Date Notes Provider Name and Address Organization Details Recorded Time Gastroesophag eal reflux disease without esophagitis 592663955 Active 2023 Cornelio Cooper PA-C [address] , [place], [address] , [place] [facility] & [place] 4 10:33:08 Regurgitation of gastric content 85145093 Active 2023 Cornelio Cooper PA-C [address] , [place], [address] , [place] [facility] & [place] 4 10:33:35 Nausea 546964378 Active 2023 Cornelio Cooper PA-C [address] , [place], [address] , [place] [facility] & [place] 4 10:33:43 Chronic idiopathic constipation 30011692 Active 2023 Cornelio Cooper PA-C [address] , [place], [address] , [place] [facility] & [place] 4 10:35:21 Constipation alternates with diarrhea 128448316 Active 2023 Cornelio Cooper PA-C [address] , [place], [address] , [place] [facility] [place] [facility] [place] 4 10:36:31 Biliary dyskinesia 307179670 Active 2024 Cornelio Cooper PA-C [address], [place], [address] , [place] [facility] [place] [facility] [place] 5 13:26:10 Dysphagia 38665124 Active 2024 Cornelio Cooper PA-C [address], [place], [address] , [place] [facility] [place] [facility] [place] 5 13:16:18 Diverticuliti s of intestine 590756629 Active 2024 Cornelio Cooper PA-C [address], [place], [address] , [place] [facility] [place] [facility] [place] 5 15:57:22 Arthritis 1404264 Active 2022 Basia barney, [place] [facility] [place] 3 14:48:04 Diabetes mellitus 38946118 Active 2022 Basia Palumbo null, [place] [facility] [place] 3 14:48:08 Hypercholeste rolemia 68410771 Active 2022 Basia Palumbo null[place] [facility] [place] 3 14:48:19 Fibromyalgia 512042032 Active 2022 Basia Palumbo null[place] [facility] [place] 3 14:48:26 Irritable bowel syndrome 38635035 Active 2022 Basia Palumbo null[place] 3 14:48:30 Anemia 860839585 Active 2022 Britany barney, [place] [facility] [place] 3 14:03:28 Hypertensive disorder 94046290 Active 2022 Britany barney[place] [facility] [place] 3 14:03:37 Cardiac pacemaker in situ 976561250 Active 2022 Britany Mujica null[place] [facility] [place] 3 14:04:04 Anxiety 15960304 Active 2022 Britany Muj[place] null[place] [facility] [place] 3 14:04:14 Asthma 120008258 Active 2022 Britany Mujica null[place] [facility] [place] 3 14:04:20 Seizure 76789792 Active 2022 Britany Mujica null[place] 3 14:04:25 Problem Notes None recorded. Procedures Surgical History Date Name Laterality Status Provider Name and Address Organization Details Recorded Time 025 Colonoscopy completed Thompson [place] [facility] [place] 01/25/2025 12:58:03 025 cholecystectomy completed Katie Falcon [place] [facility] [place] 12/27/2024 10:19:28 024 completed Danay [place] [facility] [place] 01/25/2025 12:59:25 024 Most Recent Bone Density completed Danay [place] [facility] [place] 01/25/2025 12:59:25 024 Other completed Danay [place] [facility] [place] 01/25/2025 12:59:43 024 Joint Replacement completed Danay [place] [facility] [place] 01/25/2025 12:59:43 023 Cystoscopy-Female completed Jordan Gil Jr, MD [address] [place] [address], [facility], [place], [address], [place] [facility] [facility] [place] 03/06/2023 15:35:18 023 Date of Last Colonoscopy completed Danay [place] [facility] [place] [facility] [place] 01/25/2025 12:59:25 023 Other completed Danay Carey [place] [facility] [place] [facility] [place] 01/25/2025 12:59:43 023 Pacemaker/Defibril lator completed Danay [place] [facility] [facility] [place] 01/25/2025 12:59:43 023 Abdominal Surgery completed Danay [place] [facility] [facility] [place] 01/25/2025 12:59:43 022 Cardiovascular Surgery completed Danay [place] [facility] [facility] [place] 01/25/2025 12:59:43 020 total replacement of hip completed Basia NIEVES - [facility] - [place] [facility] [place] 12/03/2022 15:14:14 020 Head or Neck Surgery completed Danay Carey [place] [facility] [place] [facility] [place] 01/25/2025 12:59:43 020 Hip Surgery completed Danay [place] 01/25/2025 12:59:43 019 Joint Replacement completed Danay [place] [facility] 01/25/2025 12:59:43 019 Hip Surgery completed Danay [place] [facility] 01/25/2025 12:59:43 016 EGD/Endoscopy completed Basia NIEVES - [facility] [place] [facility] [place] 12/03/2022 15:14:01 014 Colonoscopy completed Basia NIEVES - [facility] [place] [facility] [place] 12/03/2022 15:13:52 004 Date of Last Pap Smear completed Danay Carey [place] [facility] [place] [facility] [place] 01/25/2025 12:59:25 975 Tonsillectomy/Jonathan oidectomy completed Danay Carey [place] [facility] [place] [facility] [place] 01/25/2025 12:59:43 neck repair completed Britany NIEVES - [facility] [place] [facility] [place] 03/06/2023 14:05:26 procedure on knee completed Britany NIEVES [facility] & [place] 03/06/2023 14:05:44 Total Hysterectomy completed Elroy Tavares [facility] [place] 03/06/2023 14:05:56 cardiac pacemaker procedure completed Britany NIEVES [facility] [place] 03/06/2023 14:06:07 pain assessment completed Britany NIEVES [facility] [place] 03/06/2023 14:06:20 Imaging Results Imaging Date Name Status LastModified by Organiz ation Details LastModified Time 10/18/2024 NM, gastric emptying scan completed [facility] [address], [place], [address], 12/24/2024 12:45:26 11/30/2024 medical clearance* completed [email or web address] [address], [address], 12/01/2024 09:59:03 02/15/2025 XR, esophagram active [facility] [address], [place], [address], 02/17/2025 11:15:24 Procedure Notes None recorded. Medical Equipment None Reported. Allergies Allergen ID Allergen Name Allergen Category Reaction Reaction Severity Criticality Documentation Date Start Date Code Code System Note Provider Name and Address Organization Details Recorded Time 224410 meclizine medicatio n Not available Not available Not available 08/24/2023 6676 RxNorm Anabella Addison LIZBETH barney [facility] [place] 10:59:14 818724 Substance with sulfonami de structure and antibacte rial mechanism of action (substanc e) medicatio n nausea severe Not available 02/16/2025 39175 8003 SNOMED LIZBETH Phipps [facility] [place] 11:56:11 [address]2260 Benadryl medicatio n Not available Not available Not available 12/03/202257655 7 RxNorm LIZBETH Rodriguez [facility] & [place] 3 14:47:43 16999 tetanus and diphtheri a toxoids Not available Not available Not available Not available 12/03/2022 65120 LIZBETH Bose [facility] & [place] 3 14:47:55 70999 adhesive environme nt,medica tion Not available Not available Not available 03/06/2023 37077 LIZBETH Pearce [facility] & [place] 3 13:49:50 Medications Name Sig Start Date Stop Date Status Note LastModified by Organization Details LastModified Time clindamycin /mupirocin 100/20mg topical capsule (xylitol) [26456] MIX THE CONTENTS OF 1 CAPSULE WITH [...] Not Available No t Available 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 19 g 97.3 [degF] 97 % 97 % 70 /min 136 mm[Hg] 91 mm[Hg] Thompson rabago [place] [facility] [place] 5 13:00:01 Date Recorded Body height Body mass index (BMI) Body weight Body temperature Heart rate Systolic blood pressure Diastolic blood pressure Provider Name and Address Organization Details Last Updated DateTime 5 170.18 cm 43.8 kg/m2 179652. 15 g 97.7 [degF] 73 /min 128 mm[Hg] 88 mm[Hg] Katie LYNNE [facility] [place] 5 09:56:54 Date Recorded Body height Body mass index (BMI) Body weight Body temperature Heart rate Systolic blood pressure Diastolic blood pressure Provider Name and Address Organization Details Last Updated DateTime 5 170.18 cm 43.6 kg/m2 097657. 48 g 96.6 [degF] 73 /min 126 mm[Hg] 76 mm[Hg] Katie LYNNE [facility] [place] 5 10:16:07 Date Recorded Body height Body mass index (BMI) Body weight Heart rate Heart rate Oxygen saturation Oxygen saturation in Arterial blood by Pulse oximetry Body temperature Systolic blood pressure Diastolic blood pressure Provider Name and Address Organization Details Last Updated DateTime 5 170.18 cm 44.1 kg/m2 693471. 97 g 73 /min 72 /min 97 % 97 % 98.2 [degF] 142 mm[Hg] 80 mm[Hg] Danay NIEVES [facility] [place] 5 13:00:07 Date Recorded Body height Body mass index (BMI) Body weight Body temperature Heart rate Heart rate Oxygen saturation Oxygen saturation in Arterial blood by Pulse oximetry Systolic blood pressure Diastolic blood pressure Provider Name and Address Organization Details Last Updated DateTime 5 170.18 cm 44.6 kg/m2 934070. 03 g 96.8 [degF] 84 /min 82 /min 97 % 97 % 149 mm[Hg] 99 mm[Hg] Danay NIEVES [facility] [place] 5 11:12:16 Social History Question Answer Notes LastModified by Organizat ion Details LastModified Time Tobacco Smoking Status Current Every Day Smoker Basia Palumbo savitaLIZBETH [facility] [place] 12/03/2022 15:13:21 Do You Have An Advance Directive? No [email or web address] Information not available 01/25/2025 What Is Your Level Of Alcohol Consumption? None [email or web address] Information not available 12/03/2022 Are You Blind Or Do You Have Difficulty Seeing? No [email or web address] Information not available 01/25/2025 What Was The Date Of Your Most Recent Tobacco Screening? 08/15/2024 [email or web address] Information not available 01/25/2025 Are You Passively Exposed To Smoke? No [email or web address] Information no t available 01/25/2025 Do You Or Have You Ever Used Smokeless Tobacco? Never Used Smokeless Tobacco [email or web address] Information not available 01/25/2025 How Much Tobacco Do You Smoke? 1 PPW [email or web address] Information not available 01/25/2025 Do You Feel Stressed (tense, Restless, Nervous, Or Anxious, Or Unable To Sleep At Night)? [id number] [email or web address] Information not available 01/25/2025 Do You Use Any Illicit Or Recreational Drugs? No [email or web address] Information not available 12/03/2022 How Many Years Have You Smoked Tobacco? 31 [email or web address] Information not available 01/25/2025 Sex: Female Functional Status Question Answer Note LastModified by Organization D etails LastModified Time What is your exercise level? None Information not available 01/25/2025 Mental Status None recorded. Family History Relationship Description Onset Age of this Age Resolved Age Notes LastModified by Organization Details LastModified Time Mother Hypertensive disorder [email or web address] Not available 12/03 15:12:55 Father Coronary arterioscler osis [email or web address] Not available 2024 11:07:22 Father Hypertensive disorder [email or web address] Not available 03/2023 11:00:03 Father Heart disease Not available 03/2023 11:00:12 Brother Coronary arterioscler osis dec [email or web address] Not available 2024 11:07:22 Brother Diabetes mellitus [email or web address] Not available 2024 11:07:22 Paternal Grandmother Obesity [email or web address] Not available 1 10/24/2022 10:59:38 Maternal Grandfather [...] completed Katie Falcon [place], [place] [facility] [facility] [place] 11/24/2024 10:00:11 zoster recombinant 5 completed Katie [place] [facility] [place] 11/24/2024 10:01:26 pneumococcal, unspecified formulation 3 completed Katie Falcon [place] [facility] [place] 11/24/2024 10:01:07 Influenza, split virus, quadrivalent, preservative 2 completed Danay Carey null, [place] [facility] [place] 01/25/2025 12:59:55 COVID-19, mRNA, LNP-S, PF, 30 mcg/0.3 mL dose 1 completed Danay [place], [place] [facility] [place] 01/25/2025 12:59:55 COVID-19, mRNA, LNP-S, PF, 30 mcg/0.3 mL dose 1 completed Danay [place] [facility] [place] 01/25/2025 12:59:55 Pneumococcal conjugate PCV20, polysaccharide [id number] conjugate, adjuvant, PF 2 completed Danay [place] [facility] [place] 01/25/2025 12:59:55 Influenza, split virus, trivalent, preservative 9 completed Danay [place] [facility] [place] 01/25/2025 12:59:55 Influenza, split virus, quadrivalent, PF 3 [facility] [place] [facility] [place] 01/25/2025 12:59:55 Past Encounters Encounter ID Performer Location Encounter Start Date Encounter Closed Date Diagnosis/Indication Diagnosis SNOMED-CT Code Diagnosis ICD10 Code Diagnosis Note [id number] ABHILASH Kerr [facility] [address] [place], [place] [address]Tr[place] [address] 12/03/2022 14:14:46 12/05/2022 12:48:30 Dysphagia 50932667 R13.10 Given recent history of dysphagia, recommend EGD at time of colonoscop y for further evaluation and dilatation if warranted. Pt is scheduled for EGD/Colon 01/14 @ 9:00 AM. Patient reminded to stop ozempic 2 weeks prior to scopes. [id number] Jordan Gil Jr, MD [facility] [address] [address] 03/06/2023 13:27:03 03/06/2023 15:14:33 Difficulty passing urine [id number] R39.198 52-year-ol d white female with multiple [...] if she has any worsening of symptoms. [id number] Kieran Anna MD [facility] [address] [place] [address] 03/16/2024 09:31:51 03/16/2024 10:12:15 History of sick sinus syndrome [id number] 34990 Z86.79 with [employer] pacemaker implant 08/12/22. normally functionin g, will follow up the interrogat ion. Cardiac pa cemaker in situ 178324732 Z95.0 [employer]. Essential hypertension 01016582 I10 controlled continue medication s Dyslipidemia 045926335 E 78.5 on statin follow up fasting lipid profile. Cigarette smoker 2706699 7 F17.210 strongly encouraged to quit and offered help. Sleep apnea 98316375 G47 .30 On CPAP Obesity 133181757 E66.9 BMi 45. recommend weight loss. [id number] Cornelio Cooper PA-C [facility] [address] [place] [address] 08/17/2024 10:07:21 08/17/2024 10:59:29 Gastroesophageal reflux disease without esophagitis 636062687 K21.9 -I have recommende d she change the timing of Pantoprazo le to 30 minutes before morning and evening meal.-Rx provided for famotidine to use as needed for breakthrou gh symptoms. Regurgitat ion of gastric content 92517971 R11.10 -Obtain gastric emptying study. Continue PPI. Nausea 708821081 R11.0 Chronic. Refill provided for ondansetro n-Obtain Gastric emptying study to evaluate for possible diabetic gastropare sis. Constipati on alternates with diarrhea 774189923 K59.00 More constipati on predominat e. Possible with overflow. Start laxative therapy per below. Chronic id iopathic constipation 08238165 K59.04 Previously refractory to Miralax and Senna. Start Linzess 145 mcg p.o. once daily. History of polyp of colon 946198563 Z86.0100 -Recommend surveillan ce colonoscop y 02/2028. Last exam was 02/[address] Hatfield with hyperplast ic polyp removed. She recalls a history of multiple polyps removed previous to this. History of diverticulitis 7259131620 63419 Z87.19 -Last episode was several years ago. Notes multiple episodes, previously hospitaliz ed at [facility].-High fiber diet recommende d.-Measure s to avoid constipati on discussed- Colonoscop y last year showed diverticul osis. [id number] Cornelio Cooper PA-C [facility] [address] [place] [address] 11/15/2024 12:34:01 11/15/2024 13:20:03 Chronic idiopathic constipation 58866568 K59.04 Previously refractory to Miralax and Senna. Start Linzess 145 mcg p.o. once daily.-I have provided her with a paper prescripti on due to her pharmacy not previously receiving the eScript.-S amples were provided in the office today (#8) Gastroesop hageal reflux disease without esophagitis 467472461 K21.9 Continue Pantoprazo le once daily and famotidine at bedtime. Symptoms are stable. Nausea 440583818 R11.0 Chronic. Continue ondansetro n, refill provided.- Gastric emptying study was normal 10/18/2024 . No findings on prior EGD to explain nausea.-Sy mptoms appear consistent with biliary dyskinesia . She reported unremarkab le GBUS and HIDA scan last year at [facility], however she noted experienci ng symptom reproducti on with administra tion of CCK.Will refer to general surgery for possible elective cholecyste ctomy. Will request imaging records from [facility]. History of polyp of colon 125117545 Z86.0100 -Recommend surveillan ce colonoscop y 02/2028. Last exam was 02/[address] Hatfield with hyperplast ic polyp removed. She recalls a history of multiple polyps removed previous to this. Biliary dyskinesia 2007 K82.8 [id number] Sakina Tran MD [facility] [address] [place] [address] 11/24/2024 09:48:00 11/24/2024 10:39:05 Biliary dyskinesia 575122442 K82.8 The patient seems to have symptomati [...] a part of this patient's care. Cardiac abhilash garcia in situ 327103944 Z95.0 Will obtain cardiac risk stratifica tion preoperati vely [id number] Sakina Tran MD [facility] [address] [place] [address] 12/27/2024 10:08:07 12/27/2024 10:55:07 Chronic cholecystitis with calculus 00632993 K80.10 stable postop. Patient does have a reaction to the Monocryl suture. We discussed that this should continue to improve with conservati ve management . She can use an over-the-c ounter antihistam ine as needed. She has no restrictio ns from a surgical standpoint . We discussed that the nausea should continue to improve with time. Skin react ion to suture material 796969316 T88.8XXA R23.9 [id number] Cornelio Cooper PA-C [facility] [address] [place] [address] 01/25/2025 12:45:40 01/25/2025 13:20:02 Chronic idiopathic constipation 93398229 K59.04 Continue Linzess 145 mcg once daily. Improved. Gastroesop hageal reflux disease without esophagitis 814111808 K21.9 -Not optimally controlled . Stop pantoprazo le. Start Dexlansopr azole 60 mg p.o. once daily. Nausea 387369646 R11.0 Resolved following recent cholecyste ctomy. GES was normal 10/18/24. History of polyp of colon 616866535 Z86.0100 -Repeat surveillan ce colonoscop y 12/2029. Dysphagia 51612531 R13.1 0 She describes both oropharyng eal and esophageal dysphagia symptoms. Empiric dilation performed in 2022 at [facility]. She is unclear if this was beneficial .-Obtain esophagram and MBS. Consider repeat EGD. [id number] Cornelio Cooper PA-C [facility] [address] [place] [address] 02/16/2025 11:06:53 02/16/2025 12:02:22 Dysphagia 05346998 R13.10 Empiric dilation performed in 2022 at [facility] was mildly helpful for a period of a few months.-ALICIA S was overall unremarkab le.-We are awaiting her esophagram results. Consider repeat EGD with dilation. Chronic id iopathic constipation 25332806 K59.04 Hold Linzess 145 mcg. Start Motegrity 2 mg once daily. If she has refractory symptoms she may add the linzess in with the motegrity and monitor. Gastroesop hageal reflux disease without esophagitis 961199413 K21.9 -Not optimally controlled recently with pantoprazo le. She has just recent started Dexlansopr azole 60 mg p.o. once daily. Nausea 306151510 R11.0 Resolved following recent cholecyste ctomy. GES was normal 10/18/24. History of polyp of colon 314364500 Z86.0100 -Repeat surveillan ce colonoscop y 12/2029. Health Concerns Section Related Observation LastModified by Organization Detai ls LastModified Time None Recorded Concern Status LastModified by Organization Details LastModified Time None Recorded Advance Directives Directive N: Payers Encounter Date Sequence Insurance Name Policy Number Policy Victoria Covered Member ID Victoria Member ID Guarantor Name 11/15/2024 1 [employer] [facility] (MEDICAID HMO) Frannie Villalobos Nuñez [id number] Frannie Gambleood 11/24/2024 1 [employer] [facility] (MEDICAID HMO) Frannie Villalobos Nuñez [id number] Frannie Villalobos Nuñez 12/27/2024 1 [employer] [facility] (MEDICAID HMO) Frannie Villalobos Nuñez [id number] Frannie Villalobos Nuñez 01/25/2025 1 [employer] [facility] (MEDICAID HMO) Frannie Villalobos Nuñez [id number] Frannie Villalobos Nuñez 02/16/2025 1 [employer] [facility] (MEDICAID HMO) Frannie Villalobos Nuñez [id number] Frannie Nuñez Notes Date Note Type Note Provider Name and Address Organization Details Recorded Time 11/15/2024 text/html CURRENT (11/15/24 ): Ms. Nuñez [...] having a GBUS and HIDA scan at [facility] last year that she was told was normal. She tells me that she did experience quite a bit of nausea during the HIDA scan. Cornelio Cooper PA-C [address], [place], [address], [facility] & [place] 11/15/2024 13:28:38 11/24/2024 text/html 54-year-old misbah n [...] have a pacemaker, followed up with her wardrobe consultant within the past several months. Denies chest pain or SOA Sakina Tran MD [address], [place], [address], [facility] - [facility] & [place] 11/24/2024 11:08:33 12/27/2024 text/html Two weeks status post robotic cholecystectomy. Pathology showed gallstones with chronic cholecystitis. She feels well overall, has some itching surrounding her incision sites. She has some mild nausea postprandially which is starting to improve. Sakina Tran MD [address], [place], [address], [facility] - [facility] & [place] 12/27/2024 11:41:25 01/25/2025 text/html CURRENT (01/25/25) : [...] recent addition of Linzess. Cornelio Cooper PA-C [address] [facility], [place], [address], [place] - [facility] - [place] & [place] 01/25/2025 22:00:35 02/16/2025 text/html PREVIOUS (01/25/25 ): Ms. Nuñez returns to the office [...] is improved with recent addition of Linzess. CURRENT (02/16/25): Ms. Nuñez returns to the office today for follow-up regarding dysphagia, GERD, and chronic constipation. She underwent barium esophagram and modified barium swallow yesterday at [facility]. We do not have the results of these currently. I have contacted the speech therapist who performed her MBS and they indicated to me that the exam was overall unremarkable with the exception of some vallecular residue with larger bites. No aspiration was noted. We have contacted [facility] regarding her esophagram, but that has not yet been read by radiology.Regarding her constipation, we recently started Linzess, but she is now experiencing constipation for a few days consecutively, followed by periods of excessive diarrhea.Regarding GERD, she just started the Dexlansoprazole last week and has done well with this thus far. Cornelio Cooper PA-C [address], [place], [address], [facility] - [place] - [place] & [place] 02/16/2025 22:13:03 OBGyn Episode No OBEpisode recorded.
--- OUTSIDE RECORDS SUMMARY | 2025-02-17 14:12 | XMS_ITS | Continuity of Care Document ---
Author Organization [facility] & [place], [facility] Address [address], Located Within [facility] [address] [place] [address] Care Team Providers Care Receiving Coordinator Name Role Phone NIECY HATFIELD [employer] Operator Assessment Encounter Date Assessment Date Assessment LastModified by Organization Details LastModified Time 01/25/2025 01/25/2025 54-year-old female with: [email or web address] Not available 01/25/2025 21:56:59 Plan of Treatment Reminders Order Date Submit Date Provider Last Modified By Organization Details Last Modified Time Details Appointments None record ed. Lab None record ed. Referral None record ed. Procedures None record ed. Surgeries None record ed. Imaging XR, esopha gram [address] Scheduling Department -New Scheduling Process, [facility] [address], [place], [address], 5 14:11:12 [place], modifi ed barium swallo w study [email or web address] Scheduling Department -New Scheduling Process, [address] [facility] [address], [place], [address], 5 08:13:31 Medication Orders Linzes s 145 mcg capsul e 2024 025 [email or web address] [facility], [address] [facility] [address] [place], [id number], 5 11:56:29 dexlan sopraz ole 60 mg capsul e,biph ase delaye d releas e 2024 025 [place] [facility], [address] [facility] [address] [place], [id number], 5 15:18:34 Patient TargetsNo targets recorded. Patient InstructionsNo instructions recorded. Reason for Referral None Reported. Results Created Date Observation Date Name Description Value Unit Range Abnormal Flag Note LastModifiedBy Organization Detail LastModifiedTime 02/18/2002/15/2025 XR, esoph agram No observ ation record ed. [facility] [address], [place], [address], 02/17/2025 11:15:24 Result Notes None recorded. Problems Name Problem SNOMED Code Status Onset Date Resolution Date Notes Provider Name and Address Organization Details Recorded Time Gastroesophag eal reflux disease without esophagitis 394822783 Active [address], [place], [address] , [place] - [facility] [facility] & [place] 4 10:33:08 Regurgitation of gastric content 04731586 Active [address] , [place], [address] , [place] [facility] & [place] 4 10:33:35 Nausea 972902878 Active [address], [place], [address] , [place] [facility] & [place] 4 10:33:43 Chronic idiopathic constipation 43402913 Active [address], [place], [address] , [place] [facility] & [place] 4 10:35:21 Constipation alternates with diarrhea 472139095 Active [address], [place], [address] , [place] & [place] 4 10:36:31 Biliary dyskinesia 990832570 Active 2024 Cornelio Cooper PA-C [address], [place], [address] , [place] & [place] 5 13:26:10 Dysphagia 61067190 Active 2024 Cornelio Cooper PA-C [address], [place], [address] , [place] & [place] 5 13:16:18 Diverticuliti s of intestine 971405133 Active 2024 Cornelio Cooper PA-C [address], [place], [address] , [place] & [place] 5 15:57:22 Arthritis 3280231 Active 2022 Basia Palumbo null, [place] 3 14:48:04 Diabetes mellitus 83901923 Active 2022 Basia Palumbo null, [place] 3 14:48:08 Hypercholeste rolemia 86697767 Active 2022 Basia Palumbo null[place] 3 14:48:19 Fibromyalgia 489160281 Active 2022 Basia Palumbo null[place] 3 14:48:26 Irritable bowel syndrome 97533717 Active 2022 Basia Palumbo null[place] 3 14:48:30 Anemia 843273882 Active 2022 Britany Mujica null[place] 3 14:03:28 Hypertensive disorder 95838977 Active 2022 Britany Mujica null[place] 3 14:03:37 Cardiac pacemaker in situ 166466946 Active 2022 Britany Mujica null[place] 3 14:04:04 Anxiety 83240496 Active 2022 Britany Mujica null[place] 3 14:04:14 Asthma 352106010 Active 2022 Britany Mujica null[place] 3 14:04:20 Seizure 28803309 Active 2022 Britany Mujica null[place] 3 14:04:25 Problem Notes None recorded. Procedures Surgical History Date Name Laterality Status Provider Name and Address Organization Details Recorded Time 025 Colonoscopy completed [place] Pat[place] [facility] [place] 01/25/2025 12:58:03 025 cholecystectomy [place] [facility] [place] 12/27/2024 10:19:28 024 completed Danay [place] [facility] [facility] & [place] 01/25/2025 12:59:25 024 Most Recent Bone Density [place] Danay [place] [facility] & [place] 01/25/2025 12:59:25 024 Other completed Danay [place] 01/25/2025 12:59:43 024 Joint Replacement [place] Danay [place] 01/25/2025 12:59:43 023 Cystoscopy-Female completed Jordan Gil Jr, MD [address] [place] [address], [address], [place], [address], [place] 03/06/2023 15:35:18 023 Date of Last Colonoscopy completed Danay [place] 01/25/2025 12:59:25 01/01/2 023 Other completed Danay [place] & [place] 01/25/2025 12:59:43 023 Pacemaker/Defibril lator completed Danay [place] & [place] 01/25/2025 12:59:43 023 Abdominal Surgery completed Danay [place] & [place] 01/25/2025 12:59:43 022 Cardiovascular Surgery completed Danay [place] & [place] 01/25/2025 12:59:43 020 total replacement of hip completed Basia Deepali [place] - [facility] - [place] & [place] 12/03/2022 15:14:14 020 Head or Neck Surgery completed Danay [place] & [place] 01/25/2025 12:59:43 020 Hip Surgery completed Danay [place] & [place] 01/25/2025 12:59:43 019 Joint Replacement completed Danay [place] & [place] 01/25/2025 12:59:43 019 Hip Surgery completed Danay [place] 01/25/2025 12:59:43 016 EGD/Endoscopy completed Basia Deepali NIEVES - [facility] - [place] & [place] 12/03/2022 15:14:01 014 Colonoscopy completed Basia NIEVES - [facility] - [place] & [place] 12/03/2022 15:13:52 004 Date of Last Pap Smear completed Danay Carey [place] & [place] 01/25/2025 12:59:25 975 Tonsillectomy/Jonathan oidectomy completed Danay [place] & [place] 01/25/2025 12:59:43 neck repair completed Britany LYNNE [facility] & [place] 03/06/2023 14:05:26 procedure on knee completed Britany LYNNE [facility] & [place] 03/06/2023 14:05:44 Total Hysterectomy completed Elroy LYNNE [facility] & [place] 03/06/2023 14:05:56 cardiac pacemaker procedure completed Britany LYNNE [facility] & [place] 03/06/2023 14:06:07 pain assessment completed Britany LYNNE [facility] & [place] 03/06/2023 14:06:20 Imaging Results None recorded. Procedure Notes None recorded. Medical Equipment None Reported. Allergies Allergen ID Allergen Name Allergen Category Reaction Reaction Severity Criticality Documentation Date Start Date Code Code System Note Provider Name and Address Organization Details Recorded Time 151062 meclizine medicatio n Not available Not available Not available 08/24/2023 6676 RxNorm Anabella Addison [place] barney [facility] & [place] 3 10:59:14 699321 Substance with sulfonami de structure and antibacte rial mechanism of action (substanc e) medicatio n nausea severe Not available 02/16/2025 55999 8003 SNOMED [place] Phipps [facility] & [place] 5 11:56:11 74997 Benadryl medicatio n Not available Not available Not available 12/03/2022 26047 7 RxNorm [place] Rodriguez [facility] & [place] 3 14:47:43 19220 tetanus and diphtheri a toxoids Not available Not available Not available Not available 12/03/2022 03663 UNK [place] Rodriguez [facility] & [place] 3 14:47:55 26977 adhesive environme nt,medica tion Not available Not available Not available 03/06/2023 87998 UNK [place] Muñoz [facility] & [place] 3 13:49:50 Medications Name Sig Start Date Stop Date Status Note LastModified by Organization Details LastModified Time clindamycin /mupirocin 100/20mg topical capsule (xylitol) [94496] MIX THE CONTENTS OF 1 CAPSULE WITH [...] Not Available No t Available [employer]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 97 g 73 /min 72 /min 97 % 97 % 98.2 [degF] 142 mm[Hg] 80 mm[Hg] Danay Carey [facility] & [place] 13:00:07 Social History Question Answer Notes LastModified by Organizat ion Details LastModified Time Tobacco Smoking Status Current Every Day Smoker Basia Deepali [facility] & [place] 12/03/2022 15:13:21 Do You Have An Advance Directive? No Information not available 01/25/2025 What Is Your Level Of Alcohol Consumption? None [email or web address] Information not available 12/03/2022 Are You Blind Or Do You Have Difficulty Seeing? No Information not available 01/25/2025 What Was The Date Of Your Most Recent Tobacco Screening? 08/15/2024 [email or web address] Information not available 01/25/2025 Are You Passively Exposed To Smoke? No [email or web address] Information no t available 01/25/2025 Do You Or Have You Ever Used Smokeless Tobacco? Never Used Smokeless Tobacco [email or web address] Information not available 01/25/2025 How Much Tobacco Do You Smoke? 1 PPW [email or web address] Information not available 01/25/2025 Do You Feel Stressed (tense, Restless, Nervous, Or Anxious, Or Unable To Sleep At Night)? [id number] [email or web address] Information not available 01/25/2025 Do You Use Any Illicit Or Recreational Drugs? No [email or web address] Information not available 12/03/2022 How Many Years Have You Smoked Tobacco? 31 [email or web address] Information not available 01/25/2025 Sex: Female Functional Status Question Answer Note LastModified by Organization D etails LastModified Time What is your exercise level? None [email or web address] Information not available 01/25/2025 Mental Status None recorded. Family History Relationship Description Onset Age of this Age Resolved Age Notes LastModified by Organization Details LastModified Time Mother Hypertensive disorder [email or web address] Not available 12/03 15:12:55 Father Coronary arterioscler osis [email or web address] Not available 2024 11:07:22 Father Hypertensive disorder [email or web address] Not available 03/2023 11:00:03 Father Heart disease [email or web address] Not available 03/2023 11:00:12 Brother Coronary arterioscler osis dec [email or web address] Not available 2024 11:07:22 Brother Diabetes mellitus [email or web address] Not available 2024 11:07:22 Paternal Grandmother Obesity [email or web address] Not available 1 10/24/2022 10:59:38 Maternal Grandfather Asthma [email or web address] Not available 10/2024 11:07:22 Paternal Uncle Heart disease [email or web address] Not available 2023 09:46:19 Medical History Condition Response Other Y Depression Y Hypothyroidism Y Anemia Y Obstructive Sleep Apnea Y Neurological Problems Y Anxiety Disorder Y Diabetes Y Arthritis Y Seizures/Epilepsy Y Congestive Heart Failure (CHF) Y Hyperlipidemia Y Back Problems Y Asthma Y Reflux/GERD Y Sleep Apnea Y High Cholesterol Y Heart Disease Y Psychiatric/Mental Health Condition Y Headaches Y Hypertension Y Gynecological History Statement/Question Response [...] completed Katie [place] null, [place] [facility] & [place] 11/24/2024 10:00:11 zoster recombinant 5 completed Katie [place] & [place] 11/24/2024 10:01:26 pneumococcal, unspecified formulation 3 completed Katie [place] [facility] & [place] 11/24/2024 10:01:07 Influenza, split virus, quadrivalent, preservative 2 completed Danay [place] [facility] & [place] 01/25/2025 12:59:55 COVID-19, mRNA, LNP-S, PF, 30 mcg/0.3 mL dose 1 completed Danay [place] [facility] & [place] 01/25/2025 12:59:55 COVID-19, mRNA, LNP-S, PF, 30 mcg/0.3 mL dose 1 completed Danay [place] [facility] [place] 01/25/2025 12:59:55 Pneumococcal conjugate PCV20, polysaccharide [id number] conjugate, adjuvant, PF 2 completed [place] [facility] [place] 01/25/2025 12:59:55 Influenza, split virus, trivalent, preservative 9 completed [place] [facility] [place] 01/25/2025 12:59:55 Influenza, split virus, quadrivalent, PF 3 completed Dan[place] [facility] [place] 01/25/2025 12:59:55 Past Encounters Encounter ID Performer Location Encounter Start Date Encounter Closed Date Diagnosis/Indication Diagnosis SNOMED-CT Code Diagnosis ICD10 Code Diagnosis Note [id number] Sakina Tran MD [facility] Gen Surg [facility] [address] [facility] [address] [place] [address] 12/27/2024 10:08:07 12/27/2024 10:55:07 Chronic cholecystitis with calculus 14671725 K80.10 stable postop. Patient does have a reaction to the Monocryl suture. We discussed that this should continue to improve with conservati ve management . She can use an over-the-c ounter antihistam ine as needed. She has no restrictio ns from a surgical standpoint . We discussed that the nausea should continue to improve with time. Skin react ion to suture material 173577947 T88.8XXA R23.9 [id number] Cornelio Cooper PA-C [facility] [address] [facility] [address] [place] [address] 01/25/2025 12:45:40 01/25/2025 13:20:02 Chronic idiopathic constipation 93821283 K59.04 Continue Linzess 145 mcg once daily. Improved. Gastroesop hageal reflux disease without esophagitis 597900918 K21.9 -Not optimally controlled . Stop pantoprazo le. Start Dexlansopr azole 60 mg p.o. once daily. Nausea 377081533 R11.0 Resolved following recent cholecyste ctomy. GES was normal 10/18/24. History of polyp of colon 065283117 Z86.0100 -Repeat surveillan ce colonoscop y 12/2029. Dysphagia 79887621 R13.1 0 She describes both oropharyng eal [...] Member ID Guarantor Name 01/25/2025 1 [employer] [facility] (MEDICAID HMO) Frannie Nuñez [id number] Frannie Nuñez Notes Date Note Type Note [...] recent addition of Linzess. Cornelio Cooper PA-C [address] [facility], [place], [address], [facility] - [place] - [place] & [place] 01/25/2025 22:00:35 OBGyn Episode No OBEpisode recorded.
--- OUTSIDE RECORDS SUMMARY | 2025-02-17 14:12 | XMS_ITS | Continuity of Care Document ---
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 Lab None recorded. Referral None recorded. Procedures None recorded. Surgeries None recorded. Imaging None recorded. Medication Orders Motegrity 2 mg tablet 2024 025 [facility], [address] [facility] [address], [place], [id number], 12:13:53 Patient TargetsNo targets recorded. Patient InstructionsNo instructions recorded. Reason for Referral None Reported. Results Created Date Observation Date Name Description Value Unit Range Abnormal Flag Note LastModifiedBy Organization Detail LastModifiedTime 02/18/20 25 02/15/2025 XR, esoph agram No observ ation record ed. [facility] [address], [place], [address], 02/17/2025 11:15:24 Result Notes None recorded. Problems Name Problem SNOMED Code Status Onset Date Resolution Date Notes Provider Name and Address Organization Details Recorded Time Gastroesophag eal reflux disease without esophagitis 347711314 Active 2023 Cornelio Cooper PA-C [address], [place], [address] , [place] - [facility] - [place] & [place] 4 10:33:08 Regurgitation of gastric content 40646885 Active 2023 Cornelio Cooper PA-C [address], [place], [address] , [place] - [facility] - [place] & [place] 4 10:33:35 Nausea 834728937 Active 2023 Cornelio Cooper PA-C [address], [place], [address] , [place] [facility] & [place] 10:33:43 Chronic idiopathic constipation 80418036 Active 2023 Cornelio Cooper PA-C [address], [place], [address] , [place] [facility] [place] & [place] 10:35:21 Constipation alternates with diarrhea 371544030 Active 2023 Cornelio Cooper PA-C [address], [place], [address] , [place] [facility] & [place] 10:36:31 Biliary dyskinesia 136422261 Active 2024 Cornelio Cooper PA-C [address], [place], [address] , [place] [facility] & [place] 5 13:26:10 Dysphagia 65750680 Active 2024 Cornelio Cooper PA-C [address], [place], [address] , [place] & [place] 5 13:16:18 Diverticuliti s of intestine 083732677 Active 2024 Cornelio Cooper PA-C [address], [place], [address] , [place] & [place] 5 15:57:22 Arthritis 3085977 Active 2022 Basia Palumbo null, [place] & [place] 3 14:48:04 Diabetes mellitus 16559366 Active 2022 Basia Palumbo null[place] & [place] 3 14:48:08 Hypercholeste rolemia 49368174 Active 2022 Basia Palumbo null[place] & [place] 3 14:48:19 Fibromyalgia 325688919 Active 2022 Basia Palumbo null[place] & [place] 3 14:48:26 Irritable bowel syndrome 33461755 Active 2022 Basia Palumbo [place] & [place] 3 14:48:30 Anemia 580944881 Active 2022 Britany Mujica null[place] & [place] 3 14:03:28 Hypertensive disorder 58776095 Active 2022 Britany Mujica null[place] 3 14:03:37 Cardiac pacemaker in situ 438724941 Active 2022 Britany Muj[place] null[place] & [place] 3 14:04:04 Anxiety 65730033 Active 2022 Britany Muj[place] null[place] 3 14:04:14 Asthma 196731006 Active 2022 Britany Mujica null[place] & [place] 3 14:04:20 Seizure 09772268 Active 2022 Britany Muj[place] null[place] 3 14:04:25 Problem Notes None recorded. Procedures Surgical History Date Name Laterality Status Provider Name and Address Organization Details Recorded Time 025 Colonoscopy completed Thompson Patel [place] & [place] 01/25/2025 12:58:03 025 cholecystectomy completed Katie Falcon [place] [facility] & [place] 12/27/2024 10:19:28 024 completed Danay [place] [facility] & [place] 01/25/2025 12:59:25 024 Most Recent Bone Density completed Danay [place] [facility] & [place] 01/25/2025 12:59:25 024 Other completed Danay [place] [facility] [place] [facility] [place] 01/25/2025 12:59:43 024 Joint Replacement completed [place]ay [place] [facility] [facility] & [place] 01/25/2025 12:59:43 023 Cystoscopy-Female completed Jordan Gil Jr, MD [address] [place] [address], [address], [place], [address] [place] [facility] 03/06/2023 15:35:18 023 Date of Last Colonoscopy completed Danay [place] 01/25/2025 12:59:25 023 Other completed Danay [place] [facility] [place] [facility] [place] 01/25/2025 12:59:43 023 Pacemaker/Defibril lator completed Danay [place] 01/25/2025 12:59:43 023 Abdominal Surgery completed Danay [place] [facility] [facility] & [place] 01/25/2025 12:59:43 022 Cardiovascular Surgery completed Danay [place] [facility] [place] [facility] & [place] 01/25/2025 12:59:43 020 total replacement of hip completed Basia Palumbo [place] [facility] & [place] 12/03/2022 15:14:14 020 Head or Neck Surgery completed Danay [place] [facility] 01/25/2025 12:59:43 020 Hip Surgery completed Danay Carey LIZBETH Tavares [facility] - [place] & [place] 01/25/2025 12:59:43 019 Joint Replacement completed Danay Carey LIZBETH Tavares ROBERTO CARLOSNT - [place] & [place] 01/25/2025 12:59:43 019 Hip Surgery completed Danay Marquezdwell LIZBETH Tavares [facility] - [place] & [place] 01/25/2025 12:59:43 016 EGD/Endoscopy completed Basia Deepali NIEVES Chaitanya MAGED - [place] & [place] 12/03/2022 15:14:01 014 Colonoscopy completed Basia NIEVES Chaitanya MAGED - [place] & [place] 12/03/2022 15:13:52 004 Date of Last Pap Smear completed Danay Carey LIZBETH Tavares LPMACARIO - [place] & [place] 01/25/2025 12:59:25 975 Tonsillectomy/Jonathan oidectomy completed Danay Carey LIZBETH Tavares LPNT [facility] & [place] 01/25/2025 12:59:43 neck repair completed Denyskannan NIEVES Chaitanya MAGED [facility] & [place] 03/06/2023 14:05:26 procedure on knee completed Britany LYNNE [facility] & [place] 03/06/2023 14:05:44 Total Hysterectomy completed Elroy LYNNE [facility] & [place] 03/06/2023 14:05:56 cardiac pacemaker procedure completed Britany Tavares LPNT [facility] & [place] 03/06/2023 14:06:07 pain assessment completed Britany Tavares ROBERTO CARLOSNT [facility] & [place] 03/06/2023 14:06:20 Imaging Results None recorded. Procedure Notes None recorded. Medical Equipment None Reported. Allergies Allergen ID Allergen Name Allergen Category Reaction Reaction Severity Criticality Documentation Date Start Date Code Code System Note Provider Name and Address Organization Details Recorded Time 489018 meclizine medicatio n Not available Not available Not available 08/24/2023 6676 RxNorm LIZBETH Baker [facility] - [place] & [place] 10:59:14 605271 Substance with sulfonami de structure and antibacte rial mechanism of action (substanc e) medicatio n nausea severe Not available 02/16/2025 28982 8003 SNOMED LIZBETH Phipps [facility] & [place] 5 11:56:11 96388 Benadryl medicatio n Not available Not available Not available 12/03/202249627 7 RxNorm LIZBETH Rodriguez [facility] & [place] 3 14:47:43 27163 tetanus and diphtheri a toxoids Not available Not available Not available Not available 12/03/2022 42418 UNK LIZBETH Rodriguez [facility] & [place] 3 14:47:55 14428 adhesive environme nt,medica tion Not available Not available Not available 03/06/2023 41438 [facility] [place] 3 13:49:50 Medications Name Sig Start Date Stop Date Status Note LastModified by Organization Details LastModified Time clindamycin /mupirocin 100/20mg topical capsule (xylitol) [95610] MIX THE CONTENTS OF 1 CAPSULE WITH [...] Not Available No t Available Dexcom G6 Insole Coverer active Not Available Not Available Not Available [...] active Not Available Not Available Not Available [facility] ODT 75 mg disintegrat ing tablet 03/16 completed Not Available Not Available Not Available [facility] ODT 03/16 completed Not Available [...] Organization Details Last Updated DateTime 170.18 cm 44.6 kg/m2 944089. 03 g 96.8 [degF] 84 /min 82 /min 97 % 97 % 149 mm[Hg] 99 mm[Hg] Danay Carey [place] - [facility] [facility] & [place] 11:12:16 Social History Question Answer Notes LastModified by Organizat ion Details LastModified Time Tobacco Smoking Status Current Every Day Smoker Basia barney, [place] [facility] & [place] 12/03/2022 15:13:21 Do You Have An Advance Directive? No [email or web address] Information not available 01/25/2025 What Is Your Level Of Alcohol Consumption? None Information not available 12/03/2022 Are You Blind Or Do You Have Difficulty Seeing? No [email or web address] Information not available 01/25/2025 What Was The Date Of Your Most Recent Tobacco Screening? 08/15/2024 Information not available 01/25/2025 Are You Passively Exposed To Smoke? No [email or web address] Information no t available 01/25/2025 Do You Or Have You Ever Used Smokeless Tobacco? Never Used Smokeless Tobacco [email or web address] Information not available 01/25/2025 How Much Tobacco Do You Smoke? 1 PPW [email or web address] Information not available 01/25/2025 Do You Feel Stressed (tense, Restless, Nervous, Or Anxious, Or Unable To Sleep At Night)? [id number] [email or web address] Information not available 01/25/2025 Do You Use Any Illicit Or Recreational Drugs? No Information not available 12/03/2022 How Many Years Have You Smoked Tobacco? 31 Information not available 01/25/2025 Sex: Female Functional Status Question Answer Note LastModified by Organization D etails LastModified Time What is your exercise level? None [email or web address] Information not available 01/25/2025 Mental Status None recorded. Family History Relationship Description Onset Age of this Age Resolved Age Notes LastModified by Organization Details LastModified Time Mother Hypertensive disorder [email or web address] Not available 12/03 15:12:55 Father Coronary arterioscler osis [email or web address] Not available 2024 11:07:22 Father Hypertensive disorder [email or web address] Not available 03/2023 11:00:03 Father Heart disease [email or web address] Not available 03/2023 11:00:12 Brother Coronary arterioscler osis dec [email or web address] Not available 2024 11:07:22 Brother Diabetes mellitus [email or web address] Not available 2024 11:07:22 Paternal Grandmother Obesity [email or web address] Not available 1 10/24/2022 10:59:38 Maternal Grandfather Asthma [email or web address] Not available 0510/2024 11:07:22 Paternal Uncle Heart disease [email or web address] Not [...] completed Katie [place] null[place] [facility] & [place] 11/24/2024 10:00:11 zoster recombinant 5 completed Katie [place] [facility] 11/24/2024 10:01:26 pneumococcal, unspecified formulation 3 completed Katie [place] 11/24/2024 10:01:07 Influenza, split virus, quadrivalent, preservative 2 completed Danay [place] null[place] [facility] & [place] 01/25/2025 12:59:55 COVID-19, mRNA, LNP-S, PF, 30 mcg/0.3 mL dose 1 completed Danay [place] 01/25/2025 12:59:55 COVID-19, mRNA, LNP-S, PF, 30 mcg/0.3 mL dose 1 completed Danay [place] 01/25/2025 12:59:55 Pneumococcal conjugate PCV20, polysaccharide [id number] conjugate, adjuvant, PF 2 completed Danay [place] 01/25/2025 12:59:55 Influenza, split virus, trivalent, preservative 9 completed Danay [place] 01/25/2025 12:59:55 Influenza, split virus, quadrivalent, PF 3 completed Danay [place] [facility] 01/25/2025 12:59:55 Past Encounters Encounter ID Performer Location Encounter Start Date Encounter Closed Date Diagnosis/Indication Diagnosis SNOMED-CT Code Diagnosis ICD10 Code Diagnosis Note [id number] Cornelio Cooper PA-C [facility] [address] [address] 01/25/2025 12:45:40 01/25/2025 13:20:02 Chronic idiopathic constipation 97935974 K59.04 Continue Linzess 145 mcg once daily. Improved. Gastroesop hageal reflux disease without esophagitis 792305992 K21.9 -Not optimally controlled . Stop pantoprazo le. Start Dexlansopr azole 60 mg p.o. once daily. Nausea 688421719 R11.0 Resolved following recent cholecyste ctomy. GES was normal 10/18/24. History of polyp of colon 392424691 Z86.0100 -Repeat surveillan ce colonoscop y 12/2029. Dysphagia 83241870 R13.1 0 She describes both oropharyng eal and esophageal dysphagia symptoms. Empiric dilation performed in 2022 at [facility]. She is unclear if this was beneficial .-Obtain esophagram and MBS. Consider repeat EGD. [id number] Cornelio Cooper PA-C [facility] [address] [address] 02/16/2025 11:06:53 02/16/2025 12:02:22 Dysphagia 71921151 R13.10 Empiric dilation performed in 2022 at [facility] was mildly helpful for a period of a few months.-ALICIA S was overall unremarkab le.-We are awaiting her esophagram results. Consider repeat EGD with dilation. Chronic id iopathic constipation 11450405 K59.04 Hold Linzess 145 mcg. Start Motegrity 2 mg once daily. If she has refractory symptoms she may add the linzess in with the motegrity and monitor. Gastroesop hageal reflux disease without esophagitis 899155727 K21.9 -Not optimally controlled recently with pantoprazo le. She has just recent started Dexlansopr azole 60 mg p.o. once daily. Nausea 292456892 R11.0 Resolved following recent cholecyste ctomy. GES was normal 10/18/24. History of polyp of colon 422777735 Z86.0100 -Repeat surveillan ce colonoscop y 12/2029. Health Concerns Section Related Observation LastModified by Organization Detai ls LastModified Time None Recorded Concern Status LastModified by Organization Details LastModified Time None Recorded Payers Encounter Date Sequence Insurance Name Policy Number Policy Victoria Covered Member ID Victoria Member ID Guarantor Name 02/16/2025 1 [employer] ([employer]ICAID HMO) Frannie Nuñez [id number] Frannie Nuñez Notes Date Note Type Note Provider Name and Address Organization Details Recorded Time 02/16/2025 text/html PREVIOUS (01/25/25 ): Ms. Nuñez [...] esophagram and modified barium swallow yesterday at [facility]. We do not have the results of these currently. I have contacted the speech therapist who performed her MBS and they indicated to me that the exam was overall unremarkable with the exception of some vallecular residue with larger bites. No aspiration was noted. We have contacted [facility] regarding her esophagram, but that has not yet been read by radiology.Regarding her constipation, we recently started Linzess, but she is now experiencing constipation for a few days consecutively, followed by periods of excessive diarrhea.Regarding GERD, she just started the Dexlansoprazole last week and has done well with this thus far. Cornelio Cooper PA-C [address], [place], [address], [place] 02/16/2025 22:13:03 OBGyn Episode No OBEpisode recorded.
--- NOTE | 2025-02-17 14:13 | MM_ITS ---
PROCEDURE INFORMATION: Exam: MG Bilateral Screening 3D Mammography Exam date and time: 02/17/2025 2:27 PM Age: 54 years old Clinical indication: Screening examination TECHNIQUE: Imaging protocol: Bilateral Screening tomosynthesis and 2D mammography including computer-aided detection (CAD) when performed. COMPARISON: 1. MG SCREEN MAMMO W CAD BILAT 12/29/2023 2:19 PM 2. MG SCREEN MAMMO W CAD BILAT 12/30/2022 11:20 AM FINDINGS: MAMMOGRAPHY: Breast composition: There are scattered areas of fibroglandular density. Mass: No new or suspicious masses Architectural distortion: None. Calcifications: No suspicious calcifications. Asymmetric density: None. Skin thickening: None. Axillary adenopathy: None. IMPRESSION: No mammographic evidence of malignancy. Annual screening is recommended unless otherwise clinically indicated. ASSESSMENT: BI-RADS Category 1: Negative.
== END 2025-02-17 23:59 | disposition home or self-care (01) ==
LOC: RAD 14:10
DX: Z12.31 Encounter for screening mammogram for malignant neoplasm of breast (principal)
CPT/HCPCS: 77063; 77067

== ENCOUNTER 2025-02-27 15:06 | Outpatient (POV) | payer OTHER, SELFPAY ==
[2025-02-27 16:18] VITALS: BP 150/88; PULSE 78; RESP 14; O2SAT 96; BMI 44.4
--- NOTE | 2025-02-27 16:31 | P.PCN_ITS ---
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 Patient does rated a 9 out of 10. She denies any new falls or injuries. Patient states the pain is severe and is interfering with her ability perform activities of daily living such as cooking and cleaning. Patient is interested in any help we may be able to provide. Patient is also currently waiting for MRI in order to determine if she is a surgical candidate. Patient is currently saying Dr. Solis however has been told that once we have the MRI that she will be sent on to Dr. Piper. Patient is currently managed with morphine 1 mg/mL with a daily dose of 0.2763 mg/day. She denies any side effects from this. Patient states with her last improvement she really did not notice any improvement. Patient does state the pain has just been so severe that she is asking if there is any additional medications that we can do. Her Husam has been reviewed and is appropriate. Physical Exam: General: Alert and oriented x3, no acute distress, pleasant and cooperative Lungs: Respirations even and unlabored, symmetrical chest expansion Eyes: PERRL Musculoskeletal: Flexion and extension of lumbar [spine] somewhat guarded secondary to pain, [antalgic gait noted] point tenderness along bilateral SIs with positive bilateral Cesar's, Emili's, Gaenslen's, compression and distraction exam Neurological: Speech clear, no gross sensory deficit Procedure Details:: Informed consent was obtained and the risk and benefits of the procedure were explained to the patient. Patient did have noninvasive monitoring was placed including noninvasive blood pressure cuff and pulse oximeter. Patient's pump was interrogated and was reprogrammed to morphine 0.3459 mg/day. The patient tolerated the procedure well with no complications. Plan and Disposition:: Patient tolerated the procedure well with no complications and was discharged neurologically intact. Patient is experiencing worsening pain along the low back and bilateral hips. They did have limited range of motion of the lumbar spine along with point tenderness along bilateral SI joints however more extreme along the left side and a positive bilateral Cesar's, Emili's, Gaenslen's, compression and distraction exam. I did discuss with the patient that I do believe they would benefit from bilateral SI injections. Risk and benefits were discussed with the patient and they would like to proceed forward with this option. Patient has tried and failed conservative therapy including continued at home stretching exercise for longer than 12 weeks. If the patient does get significant relief following these injections we will see in the future if they would benefit from a second set with the possibility of SI fusion at a later date. This will be a diagnostic injection with less than 1 mL solution to be injected. Patient will be scheduled for bilateral SI injections under fluoroscopy. I did also discuss with patient due to the severe nature of her pain that I would send in prednisone 20 mg twice daily for 5 days. Patient denied any recent steroids over the last 3 months. I will also send in additional muscle relaxers. Patient has been instructed to contact the clinic with any concerns before the next appointment. Dr. Banerjee has reviewed this note and agrees with this plan of care. This note was dictated using voice recognition software and make contain errors or omissions. All injections are used with Lidocaine or Bupivacaine and dexamethasone. Patient will return to clinic on or before their next intrathecal refill date. We will see the patient back in the clinic at the next intrathecal refill. Patient has been instructed to contact the clinic with any concerns before the next appointment. Dr. Banerjee has reviewed this note and agrees with this plan of care. This note was dictated using voice recognition software and make contain errors or omissions. -- It Is medically necessary for this patient to continue to have their intrathecal pump refilled at regular intervals. This patient had an intrathecal pain pump implanted after meeting criteria of chronic intractable pain for greater than 3 months and failing conservative treatments. Patient has committed and been co mpliant to the treatment plan and all planned follow up care. Since implantation of the intrathecal pain pump, the patient has had decreased pain and been more functional. Oral medications have been reduced including intake of oral opioids. Patient continues to do well with intrathecal therapy with decrease in pain symptoms and increase in functional status. Stopping intrathecal medications can lead to life threatening withdrawal, seizures, cardiac arrest, severe pain, and possible . Pumps that are not refilled at regular intervals can be damages and cause and need for replacement. We continually titrate dose and concentration to optimize pain relief and function. We are limited in concentration for certain drugs to safely deliver medications through the pump and stay within the recommendations from the Polyanalgesic Consensus Committee Guidelines. Depending on dose and concentration these pumps may need to be refilled sooner than 3 months as we titrate. A UDS is needed to verify patient's compliance with our office pain contract. This is ordered based off specific treatments related to chronic pain with the potential to abuse certain medications.
== END 2025-02-27 23:59 | disposition home or self-care (01) ==
PROVIDERS: Visit Provider Nurse Practitioner Family
DX: G89.4 Chronic pain syndrome (principal); M46.1 Sacroiliitis, not elsewhere classified; M51.369 Other intervertebral disc degeneration, lumbar region without mention of lumbar back pain or lower extremity pain; Z73.89 Other problems related to life management difficulty
CPT/HCPCS: 62368; 99212; 99213; G0463

== ENCOUNTER 2025-03-03 13:49 | Day surgery (SDC) | payer OTHER, SELFPAY ==
[2025-03-03 14:01] VITALS: BP 156/84; PULSE 74; RESP 16; O2SAT 96; BMI 44.3
--- NOTE | 2025-03-03 14:03 | EXP.HP ---
History of Present Illness *Admission Date: 03/03/25 *Reason for visit:: Intrathecal refill; DDD *History of present illness: Degenerative disc disease [facility] Disclaimer: The information contained in this section may have been updated after the patient was seen, as this information can be updated by other users. Medical History Seizure disorder Sleep apnea Seizure HLD (hyperlipidemia) HTN (hypertension) Hx of cardiac pacemaker Diabetes mellitus, type 2 Anxiety Depression Asthma Congestive heart failure Dizziness Surgical History History of spinal fusion History of hysterectomy History of right hip replacement History of left hip replacement History of knee replacement Family History Other Family history of diabetes mellitus type II Family history of hyperlipidemia Family history of hypertension Family history of myocardial infarction Social History Smoking Status: Never smoker years smoked: 30 alcohol intake: never substance use type: denies use current occupational status: other Travel in the last 8 weeks?: None household members: none housing: house lives independently: Yes marital status: single education level: high school current occupational exposures/hazards: No caffeine: Yes special lai needs: No agree to transfusion: No do you feel safe at home: Yes victim of physical abuse: No victim of emotional abuse: No victim of sexual abuse: No would you like helpful sources: No Have you lived/traveled outside [place] in past 30 days?: No Contact w/someone who lives/traveled outside [place] past 30 days?: No Exposure to someone with infectious disease in past 14 days?: No Do you have a fever (greater than 100.4 F or 38 C)?: No Have you tested positive for COVID-19?: No Exposed to someone with COVID-19 in past 14 days?: No Do you have a sore throat?: No Do you have a cough?: No Do you have any weakness?: No Do you have any diarrhea?: No Are you experiencing any unusual bleeding?: No Do you have any muscle aches/pain?: No Do you have any abdominal pain?: No Are you experiencing loss of taste or smell?: No Other Medical History Have you received the Flu Vaccine for this season: Yes Have you received the Pneumonia Vaccine: Yes Review of Systems Review of Systems Review of systems:: pertinent systems reviewed and negative unless documented below Review of systems (narrative): Review of Systems: General: No recent weight changes, no fever, no sleep disturbances Respiratory: No cough, no shortness of air, no recurring pulmonary infections Cardiovascular/peripheral vascular: No chest pain, no palpitations, no edema, no shortness of breath Gastrointestinal: No new onset incontinence, normal bowel movements reported Genitourinary: No new onset incontinence Musculoskeletal: Chronic back pain Psychiatric: [Normal mood/affect] Neurological: [Denies weakness in extremities], [denies balance issues] Meds Home Medications and Allergies Home Medications ?Medication ?Instructions ?Recorded ?Confirmed ?Type aripiprazole 10 mg tablet 5 mg PO DAILY Depression 05/25/21 03/03/25 History atorvastatin 80 mg tablet 80 mg PO HS Cholesterol 05/25/21 03/03/25 History carvedilol 6.25 mg tablet 12.5 mg PO BID blood pressure 05/25/21 03/03/25 History ergocalciferol (vitamin D2) 1,250 1 tab PO WEEKLY Supplement 05/25/21 03/03/25 History mcg (50,000 unit) capsule hydroxyzine pamoate 50 mg capsule 50 mg PO TID PRN Anxiety 05/25/21 03/03/25 History lamotrigine 25 mg tablet 25 mg PO TID seizures 05/25/21 03/03/25 History levothyroxine 88 mcg capsule 88 mcg PO DAILY . 05/25/21 03/03/25 History pantoprazole 40 mg tablet,delayed 40 mg PO DAILY GERD 05/25/21 03/03/25 History release promethazine 25 mg tablet 25 mg PO Q6H PRN Nausea And 05/25/21 03/03/25 History Vomiting ropinirole 0.25 mg tablet 2 mg PO HS RLS 05/25/21 03/03/25 History venlafaxine 75 mg capsule,extended 225 mg PO DAILY Depression 05/25/21 03/03/25 History release 24 hr zonisamide 100 mg capsule 100 mg PO TID migraines/seizures 05/25/21 03/03/25 History albuterol sulfate 90 mcg/actuation 2 inh INHALATION DIRECTED . 05/27/21 03/03/25 History aerosol inhaler (ProAir HFA) cyanocobalamin (vitamin B-12) 1,000 mcg IM MONTHLY suppliment 05/27/21 03/03/25 History 1,000 mcg/mL injection solution spironolactone 25 mg tablet 25 mg PO DAILY Fluid 06/07/21 03/03/25 History methocarbamol 500 mg tablet 500 mg PO Q8HP PRN Muscle Spasm 06/02/22 03/03/25 Rx #30 tabs mirtazapine 15 mg tablet (Remeron) 15 mg PO HS sleep 10/21/22 03/03/25 History cyclobenzaprine 10 mg tablet 10 mg PO BID PRN Muscle Spasm #20 11/11/22 03/03/25 Rx tabs tizanidine 4 mg tablet (Zanaflex) 4 mg PO TID MUSCLES 12/12/22 03/03/25 History minocycline 100 mg capsule 100 mg PO DAILY Skin condition 02/13/23 03/03/25 History morphine (PF) 1 mg/mL injection 0.1 mg continuous intrathecal 02/20/23 03/03/25 History solution infusion CONT Pain baclofen 10 mg tablet 10 mg PO QID Pain #120 tabs 08/10/24 03/03/25 Rx methocarbamol 750 mg tablet 750 mg PO TID #90 tabs 02/27/25 03/03/25 Rx prednisone 20 mg tablet 20 mg PO BID #10 tabs 02/27/25 03/03/25 Rx New Prescriptions to Start Prescriptions: Allergies Allergy/AdvReac Type Severity Reaction Status Date / Time meclizine Allergy Intermediate Unknown Verified 01/27/25 09:19 allergy reaction doxycycline Allergy Mild Vomiting Verified 01/27/25 09:19 diphenhydramine (From Allergy Unknown Unknown Verified 01/27/25 09:19 BENADRYL) allergy reaction Tetanus Vaccines and Toxoid Allergy Unknown Unknown Verified 01/27/25 09:19 (TETANUS VACCINES & TOXOID) allergy reaction adhesive tape Allergy Rash Verified 01/27/25 09:19 Exam Constitutional Constitutional: no acute distress *Routine HEENT Exam Head: Present normocephalic and atraumatic Eye: Present PERRL ENT: Present mucous membranes moist *Routine Neck Exam Neck: Present supple *Routine Respiratory Exam Respiratory: Present CTA bilaterally *Routine Cardiovascular Exam Cardiovascular: Present RRR *Routine Abdominal Exam Abdominal: Present soft *Routine Rectal Exam Rectal:: deferred *Routine Genitalia Exam Genitalia:: normal female Routine Back/Spine/Pelvis Exam Back/Spine: Present pain with flexion *Routine Skin Exam Skin: Present intact and warm *Routine Neurological Exam Neurological: Present alert and oriented X3 Routine Psychiatric Exam Psychiatric: Present normal affect and normal thought process Assessment and Plan *Assessment and plan (1) Degenerative joint disease (DJD) of lumbar spine: Status: Acute Qualifiers: Spinal osteoarthritis complication: with radiculopathy Qualified Code(s): M47.26 - Other spondylosis with radiculopathy, lumbar region Category: Medical Code(s): M47.816 - Spondylosis without myelopathy or radiculopathy, lumbar region (2) Lumbar radiculopathy: Status: Acute Category: Medical Code(s): M54.16 - Radiculopathy, lumbar region Plan Patient has been instructed to contact the clinic with any concerns before the next appointment. Dr. Banerjee has reviewed this note and agrees with this plan of care. This note was dictated using voice recognition software and make contain errors or omissions. All injections are used with Lidocaine, Bupivacaine and dexamethasone. Occasionally urine drug screen is needed to verify patient's compliance with our office pain contract. This is ordered based off specific treatments related to chronic pain with the potential to abuse certain medications.
--- NOTE | 2025-03-03 14:05 | EXP.PAIN.PRO ---
Procedure Date: 03/03/25 Time: 14:54 Anesthesiologist:: Magalis Trujillo APRN Complications:: None Pre-procedure Diagnosis:: Degenerative disc disease of lumbar spine with lumbar radiculopathy symptoms Post-procedure Diagnosis:: Same Indications for Procedure:: Patient is a pleasant 54-year-old female who presents today for intrathecal refill and reprogram. Today she rates her pain 6 out of 10. She denies any new trauma or injury from our last visit. Patient states that her last increase may have helped some but does feel like it still could use adjustment. Patient is currently managed with morphine 1 mg/mL with a daily dose of 0.2763 mg/day. We did discuss at her last visit that we would change her next pump refill to 2 mg/mL concentration. We will still plan on proceeding forward with this. Patient agrees with this plan of care. Patient is prescribed gabapentin from an outside provider. Her Husam has been reviewed and is appropriate. Physical Exam: General: Alert and oriented x3, no acute distress, pleasant and cooperative Lungs: Respirations even and unlabored, symmetrical chest expansion Eyes: PERRL Musculoskeletal: Flexion and extension of lumbar [spine] somewhat guarded secondary to pain, [antalgic gait noted] Neurological: Speech clear, no gross sensory deficit Procedure Details:: Informed consent was obtained and the risk and benefits of the procedure were explained to the patient. The patient had noninvasive monitoring placed including noninvasive blood pressure cuff and pulse oximeter. Patient's pump was interrogated. The area over the pump was cleansed with chlorhexidine as a cleansing solution. In sterile fashion the pump was accessed with a 22-gauge needle. Approximately 9.5 mls of the pump solution was removed and discarded appropriately. The pump was then refilled with 20 mL's of morphine 1 mg/mL. The needle was withdrawn and a bandage was placed over the puncture site. The infusion rate was reprogrammed and increased 20% to 0.4154 mg/day of the morphine. The patient tolerated well with no complication. Plan and Disposition:: Patient tolerated the procedure well with no complications and was discharged neurologically intact. Patient will return to clinic on or before their next intrathecal refill date. We will see the patient back in the clinic at the next intrathecal refill. Patient has been instructed to contact the clinic with any concerns before the next appointment. Dr. Banerjee has reviewed this note and agrees with this plan of care. This note was dictated using voice recognition software and make contain errors or omissions. -- It Is medically necessary for this patient to continue to have their intrathecal pump refilled at regular intervals. This patient had an intrathecal pain pump implanted after meeting criteria of chronic intractable pain for greater than 3 months and failing conservative treatments. Patient has committed and been compliant to the treatment plan and all planned follow up care. Since implantation of the intrathecal pain pump, the patient has had decreased pain and been more functional. Oral medications have been reduced including intake of oral opioids. Patient continues to do well with intrathecal therapy with decrease in pain symptoms and increase in functional status. Stopping intrathecal medications can lead to life threatening withdrawal, seizures, cardiac arrest, severe pain, and possible . Pumps that are not refilled at regular intervals can be damages and cause and need for replacement. We continually titrate dose and concentration to optimize pain relief and function. We are limited in concentration for certain drugs to safely deliver medications through the pump and stay within the recommendations from the Polyanalges[employer] Consensus Committee Guidelines. Depending on dose and concentration these pumps may need to be refilled sooner than 3 months as we titrate. A UDS is needed to verify patient's compliance with our office pain contract. This is ordered based off specific treatments related to chronic pain with the potential to abuse certain medications.
[2025-03-03 14:47] VITALS: BP 176/87; PULSE 69; RESP 18; O2SAT 97
[2025-03-03 15:05] VITALS: BP 141/81; PULSE 71; RESP 16; O2SAT 98
== END 2025-03-03 15:05 | disposition home or self-care (01) ==
PROVIDERS: Visit Provider Nurse Practitioner Family
DX: M51.16 Intervertebral disc disorders with radiculopathy, lumbar region (principal)
CPT/HCPCS: 62370

== ENCOUNTER 2025-03-08 15:47 | Emergency (ER) | payer OTHER, SELFPAY ==
[2025-03-08] VITALS (7 sets, daily range): BP systolic 138–152; BP diastolic 77–88; PULSE 73–91; RESP 15–98; TEMP 36.6–36.8; O2SAT 94–100; BMI 44.9
--- NOTE | 2025-03-08 15:50 | ECG_ITS ---
APPROVED REPORT Exam: Resting ECG HR:87 bpm ECG Measurements Heart Rate 87 AXES NM 179 P 70 QRSd 90 QRS 11 QT 358 T 47 QTc 402 Conclusion SINUS RHYTHM NORMAL ECG No STEMI Electronically signed by : DANAY BARON, 03/11/2025 14:40:44
--- NOTE | 2025-03-08 15:55 | XR_ITS ---
PROCEDURE INFORMATION: Exam: XR Chest Exam date and time: 03/08/2025 4:23 PM Age: 54 years old Clinical indication: Shortness of breath; Sternal or substernal pain; Pacemaker 2 years ago; Additional info: VIV todd TECHNIQUE: Imaging protocol: Radiologic exam of the chest. Views: 1 view. COMPARISON: CR XR CHEST 2V 02/09/2025 9:06 AM FINDINGS: Lungs: Unremarkable. No consolidation. Pleural spaces: Unremarkable. No pleural effusion. No pneumothorax. Heart/Mediastinum: Cardiac silhouette is not enlarged. There is a dual electrode pacemaker whose tips project within the right atrium and right ventricle. Bones/joints: Prior ACDF otherwise unremarkable for age. IMPRESSION: Negative chest
--- NOTE | 2025-03-08 15:56 | ED_ITS ---
<Statement entered by Magalis Macdonald DO - 03/08/25 23:44> I was consulted by the THADDEUS, and we discussed the complexity of the problems being addressed. I approved the treatment and management plan for this patient's care in the emergency department, thus performing a substantive portion of the medical decision making. Magalis Macdonald DO Discharge Plan Disposition Patient Disposition: Home, Self-Care Condition: Good Chief Complaint: Chest Pain Prescriptions Prescriptions: No Action albuterol sulfate [ProAir HFA] 90 mcg/actuation HFA aerosol inhaler 2 inh INHALATION DIRECTED cyanocobalamin (vitamin B-12) 1,000 mcg/mL solution 1,000 mcg IM MONTHLY tizanidine [Zanaflex] 4 mg tablet 4 mg PO TID minocycline 100 mg capsule 100 mg PO DAILY methocarbamol 750 mg tablet 750 mg PO TID Qty: 90 0RF prednisone 20 mg tablet 20 mg PO BID Qty: 10 0RF spironolactone 25 MG tablet 25 mg PO DAILY atorvastatin 80 MG tablet 80 mg PO HS carvedilol 6.25 MG tablet 12.5 mg PO BID venlafaxine 75 MG capsule,extended release 24hr 225 mg PO DAILY hydroxyzine pamoate 50 MG capsule 50 mg PO TID PRN (Reason: Anxiety) lamotrigine 25 MG tablet 25 mg PO TID zonisamide 100 MG capsule 100 mg PO TID ropinirole 0.25 MG tablet 2 mg PO HS pantoprazole 40 MG tablet,delayed release (DR/EC) 40 mg PO DAILY promethazine 25 MG tablet 25 mg PO Q6H PRN (Reason: Nausea And Vomiting) ergocalciferol (vitamin D2) 50,000 UNIT capsule 1 tab PO WEEKLY aripiprazole 10 MG tablet 5 mg PO DAILY levothyroxine 88 MCG capsule 88 mcg PO DAILY methocarbamol 500 MG tablet 500 mg PO Q8HP PRN (Reason: Muscle Spasm) Qty: 30 0RF mirtazapine [Remeron] 15 mg Tablet 15 mg PO HS cyclobenzaprine 10 mg Tablet 10 mg PO BID PRN (Reason: Muscle Spasm) Qty: 20 0RF morphine (PF) 1 mg/mL Solution 0.1 mg continuous intrathecal infusion CONT baclofen 10 mg Tablet 10 mg PO QID Qty: 120 2RF Referrals Follow up/Referrals: Provider,Referral, MD [Referring] - See instructions Activity Restrictions/Add. Instructions Additional Instructions/Restrictions: Please return to the emergency department with any worsening signs or symptoms, please follow-up with your family doctor and professor of biostatistics in the upcoming days, please utilize ibuprofen Tylenol and other anti-inflammatory medications as needed for pain. Please continue take all medications as prescribed. Clinical Impressions Clinical Impression: Chest pain Qualifiers: Chest pain type: unspecified Qualified Code(s): R07.9 - Chest pain, unspecified Instructions Patient Instructions: DI for Atypical Chest Pain, DI for Chest Pain Print Language Print Language: Congolese Discharge ED Provider: Magalis Macdonald General Adult HPI <JOSE Banerjee - Last Filed: 03/08/25 18:09> General Chief complaint: Chest Pain Stated complaint: Chest Pain Time Seen by Provider: 03/08/25 15:55 Mode of Arrival: Ambulatory Source of Information: Patient Limitations: No Limitations History of Present Illness HPI narrative: 54-year-old female presents to the emergency department with left-sided substernal chest pain, shortness of breath, nausea that started around 6 or 7 AM this morning, currently an 8 out of 10 on the pain scale, and has been fairly constant, there is some radiation into the shoulder, but mainly stays in the left substernal chest. No injury or trauma or inciting event, patient denies any abdominal pain, denies any vomiting, urinary type symptomatology, denies constipation diarrhea, melena hematochezia hemoptysis, no cough congestion, no sore throat. Patient has past medical history consistent with current everyday smoker, denies any alcohol tobacco or other drug use, anxiety/depression, hyperlipidemia, chronic pain syndrome, chronic spine pain/degenerative disc disease of the spine, with data deficient intrathecal pain pump, implantable pacemaker, hypothyroidism, migraines. Initial triage vitals unremarkable. Onset (ago): hour(s) Related Data Home Medications ?Medication ?Instructions ?Recorded ?Confirmed aripiprazole 10 mg tablet 5 mg PO DAILY Depression 05/25/21 03/03/25 atorvastatin 80 mg tablet 80 mg PO HS Cholesterol 05/25/21 03/03/25 carvedilol 6.25 mg tablet 12.5 mg PO BID blood pressure 05/25/21 03/03/25 ergocalciferol (vitamin D2) 1,250 1 tab PO WEEKLY Supplement 05/25/21 03/03/25 mcg (50,000 unit) capsule hydroxyzine pamoate 50 mg capsule 50 mg PO TID PRN Anxiety 05/25/21 03/03/25 lamotrigine 25 mg tablet 25 mg PO TID seizures 05/25/21 03/03/25 levothyroxine 88 mcg capsule 88 mcg PO DAILY . 05/25/21 03/03/25 pantoprazole 40 mg tablet,delayed 40 mg PO DAILY GERD 05/25/21 03/03/25 release promethazine 25 mg tablet 25 mg PO Q6H PRN Nausea And 05/25/21 03/03/25 Vomiting ropinirole 0.25 mg tablet 2 mg PO HS RLS 05/25/21 03/03/25 venlafaxine 75 mg capsule,extended 225 mg PO DAILY Depression 05/25/21 03/03/25 release 24 hr zonisamide 100 mg capsule 100 mg PO TID migraines/seizures 05/25/21 03/03/25 albuterol sulfate 90 mcg/actuation 2 inh INHALATION DIRECTED . 05/27/21 03/03/25 aerosol inhaler (ProAir HFA) cyanocobalamin (vitamin B-12) 1,000 mcg IM MONTHLY suppliment 05/27/21 03/03/25 1,000 mcg/mL injection solution spironolactone 25 mg tablet 25 mg PO DAILY Fluid 06/07/21 03/03/25 mirtazapine 15 mg tablet (Remeron) 15 mg PO HS sleep 10/21/22 03/03/25 tizanidine 4 mg tablet (Zanaflex) 4 mg PO TID MUSCLES 12/12/22 03/03/25 minocycline 100 mg capsule 100 mg PO DAILY Skin condition 02/13/23 03/03/25 morphine (PF) 1 mg/mL injection 0.1 mg continuous intrathecal 02/20/23 03/03/25 solution infusion CONT Pain Previous Rx's ?Medication ?Instructions ?Recorded methocarbamol 500 mg tablet 500 mg PO Q8HP PRN Muscle Spasm 06/02/22 #30 tabs cyclobenzaprine 10 mg tablet 10 mg PO BID PRN Muscle Spasm #20 11/11/22 tabs baclofen 10 mg tablet 10 mg PO QID Pain #120 tabs 08/10/24 methocarbamol 750 mg tablet 750 mg PO TID #90 tabs 05/12/25 prednisone 20 mg tablet 20 mg PO BID #10 tabs 02/27/25 Allergies Allergy/AdvReac Type Severity Reaction Status Date / Time meclizine Allergy Intermediate Unknown Verified 01/27/25 09:19 allergy reaction doxycycline Allergy Mild Vomiting Verified 01/27/25 09:19 diphenhydramine (From Allergy Unknown Unknown Verified 01/27/25 09:19 BENADRYL) allergy reaction Tetanus Vaccines and Toxoid Allergy Unknown Unknown Verified 01/27/25 09:19 (TETANUS VACCINES & TOXOID) allergy reaction adhesive tape Allergy Rash Verified 01/27/25 09:19 [facility] <JOSE Banerjee - Last Filed: 03/08/25 18:09> [facility] Disclaimer: The information contained in this section may have been updated after the patient was seen, as this information can be updated by other users. Medical History (Updated 03/08/25 @ 18:09 by JOSE Banerjee) Knee arthropathy Hip replacement planned Pacemaker Pain of intrathecal infusion pump pocket after insertion Seizure disorder Sleep apnea Seizure HLD (hyperlipidemia) HTN (hypertension) Hx of cardiac pacemaker Diabetes mellitus, type 2 Anxiety Depression Asthma Congestive heart failure Dizziness Surgical History (Updated 03/08/25 @ 16:09 by Myesha Reid RN) History of cholecystectomy History of spinal fusion History of hysterectomy History of right hip replacement History of left hip replacement History of knee replacement Family History Other Family history of diabetes mellitus type II Family history of hyperlipidemia Family history of hypertension Family history of myocardial infarction Social History Smoking Status: Current every day smoker tobacco type: cigarettes packs per day: 1 years smoked: 30 alcohol intake: never substance use type: denies use current occupational status: other Travel in the last 8 weeks?: None household members: none housing: house lives independently: Yes marital status: single education level: high school current occupational exposures/hazards: No caffeine: Yes special lai needs: No agree to transfusion: No do you feel safe at home: Yes victim of physical abuse: No victim of emotional abuse: No victim of sexual abuse: No would you like helpful sources: No Have you lived/traveled outside [place] in past 30 days?: No Contact w/someone who lives/traveled outside [place] past 30 days?: No Exposure to someone with infectious disease in past 14 days?: No Do you have a fever (greater than 100.4 F or 38 C)?: No Have you tested positive for COVID-19?: No Exposed to someone with COVID-19 in past 14 days?: No Do you have a sore throat?: No Do you have a cough?: No Do you have any weakness?: No Do you have any diarrhea?: No Are you experiencing any unusual bleeding?: No Do you have any muscle aches/pain?: No Do you have any abdominal pain?: No Are you experiencing loss of taste or smell?: No Other Medical History Have you received the Flu Vaccine for this season: Yes Have you received the Pneumonia Vaccine: Yes <JOSE Banerjee - Last Filed: 03/08/25 18:09> ROS Obtained: Yes All systems reviewed & no additional complaints except as documented Physical Exam <JOSE Banerjee - Last Filed: 03/08/25 18:09> General General appearance: alert and in no apparent distress Head Head exam: atraumatic and normocephalic Eye Eye exam: Present PERRL and EOMI ENT ENT exam: Present mucous membranes moist Neck Neck exam: Present normal inspection Chest Chest inspection: Present normal inspection and symmetric chest wall rise; Absent tenderness Respiratory Respiratory exam: Present normal lung sounds bilaterally; Absent respiratory distress or wheezes Cardiovascular Cardiovascular exam: Present regular rate and normal rhythm Abdominal Exam Abdominal exam: Present soft; Absent tenderness Extremities Exam Extremities exam: Present normal inspection Neurological Exam Neurological exam: Present alert and oriented X3 Psychiatric Psychiatric exam: Present normal affect Skin Skin exam: Present warm and dry Medical Decision Making <JOSE Banerjee - Last Filed: 03/08/25 18:09> Medical Records Medical records reviewed: Yes I reviewed the patient's medical records. Screening: Per USPSTF and CDC recommendations, given the prevalence of disease in our region, it is our hospital?s policy to screen for HIV and viral Hepatitis for all patients aged 18 and over and those with ongoing risk factors. Husam Inquiry Pt receiving controlled substance: Yes Husam was queried for this patient: No Reason not queried -: Emergent pt cond-no time Risks and benefits of using a controlled substance: were discussed with pt by me Vital Signs: 03/08/25 15:47 03/08/25 16:30 03/08/25 16:35 Temperature 98.2 F Temperature Source Oral Pulse Rate 81 86 Pulse Rate [Right Radial] 91 H Respiratory Rate 98 H 15 18 Blood Pressure 152/88 H 152/88 H Blood Pressure [Right Arm] 152/77 H Blood Pressure Mean [Right Arm] 102 Blood Pressure Source Automatic Cuff Blood Pressure Source [Right Arm] Automatic Cuff Blood Pressure Position Sitting Blood Pressure Position [Right Arm] Sitting 02 Sat by Pulse Oximetry 97 97 97 Oxygen Delivery Method Room Air Room Air 03/08/25 17:00 03/08/25 17:30 Temperature Temperature Source Pulse Rate 82 81 Pulse Rate [Right Radial] Respiratory Rate 16 17 Blood Pressure 138/79 148/84 H Blood Pressure [Right Arm] Blood Pressure Mean [Right Arm] Blood Pressure Source Blood Pressure Source [Right Arm] Blood Pressure Position Blood Pressure Position [Right Arm] 02 Sat by Pulse Oximetry 98 94 L Oxygen Delivery Method Room Air Room Air Lab Data Lab results reviewed: Yes I reviewed the patient's lab results. Lab Results 03/08/25 15:59: WBC 12.0 H, RBC 4.27, Hgb 13.2, Hct 39.9, MCV 93.4, MCH 30.9, MCHC 33.1, RDW 14.4, Plt Count 298, MPV 10.3, Neut % (Auto) 59.7, Lymph % (Auto) 29.6, [place] % (Auto) 7.0, Eos % (Auto) 2.2, Baso % (Auto) 0.6, Neut # (Auto) 7.2, Lymph # (Auto) 3.6, [place] # (Auto) 0.8, Eos # (Auto) 0.3, Baso # (Auto) 0.1, PT 10.4, INR 0.93, D-Dimer 0.75 H, Sodium 137, Potassium 3.7, Chloride 105, Carbon Dioxide 27, Anion Gap 8.7, BUN 18 H, Creatinine 1.00, Estimated Creat Clear 63, Estimated GFR 58 L, Est GFR ( Amer) 70, Glucose 142 H, Calcium 9.4, Magnesium 2.1, Total Bilirubin 0.4, AST 25, ALT 26, Alkaline Phosphatase 157 H, Troponin I < 0.01, NT-Pro-B Natriuret Pep < 20.0, Total Protein 7.3, Albumin 4.5, Globulin 2.8, Albumin/Globulin Ratio 1.6, Lipase 269, HCV Ab KAYLIE w/Rflx PCR Qn Negative, HIV Ag/Ab Combo Qual Negative 03/08/25 16:03: Urine Color Yellow, Urine Appearance Clear, Urine pH 6.0, Ur Specific [place] 1.015, Urine Protein Negative, Urine Glucose (UA) Negative, Urine Ketones Negative, Urine Blood Negative, Urine Nitrate Negative, Urine Bilirubin Negative, Urine Urobilinogen 0.2, Ur Leukocyte Esterase Negative 03/08/25 15:59 03/08/25 15:59 Orders (Tests/Meds): ED MEDICATIONS Discontinued Medications Generic Name Dose Route Start Last Admin Trade Name Mikeq PRN Reason Stop Dose Admin Aspirin 325 mg 03/08/25 16:01 03/08/25 16:13 Aspirin 325mg Tablet PO 03/08/25 16:02 325 mg ONCE ONE Administration Morphine Sulfate 4 mg 03/08/25 16:02 03/08/25 16:14 Morphine 4mg/Ml Syringe IV 03/08/25 16:03 4 mg ONCE ONE Administration Ondansetron HCl 4 mg 03/08/25 16:02 03/08/25 16:14 Ondansetron 4mg/2ml Vial IV 03/08/25 16:03 4 mg ONCE ONE Administration ORDERS Category Date Time Status XR chest portable Stat Exams 03/08/25 15:55 Completed Complete Blood Count Auto Diff Stat Lab 03/08/25 15:59 Completed Comprehensive Metabolic Panel Stat Lab 03/08/25 15:59 Completed D-Dimer Stat Lab 03/08/25 15:59 Completed HIV Combo Stat Lab 03/08/25 15:59 Completed Hepatitis C Ab Qual. W/ RFX Stat Lab 03/08/25 15:59 Completed Lipase Stat Lab 03/08/25 15:59 Completed Magnesium Stat Lab 03/08/25 15:59 Completed NT Pro Brain Natriuretic Pep. Stat Lab 03/08/25 15:59 Completed PT INR [Prothrombin Time INR] Stat Lab 03/08/25 15:59 Completed Troponin I Q3H Lab 03/08/25 19:00 Ordered Troponin I Q3H Lab 03/08/25 22:00 Ordered Troponin I Stat Lab 03/08/25 15:59 Completed Urinalysis and Microscopic Stat Lab 03/08/25 16:03 Results Medical Decision Narrative: 54-year-old female presents emerged part with chest pain shortness of breath, differential diagnosis to include but not limited to, ACS, cardiac arrhythmia, electrolyte disturbance, PE, costochondritis, gastritis, GERD, pneumonia, other musculoskeletal pain, anxiety type reaction, panic attack among others. Will obtain basic laboratory studies, D-dimer lipase magnesium level proBNP PT/INR, troponin, chest x-ray and EKG, urinalysis, will give 4 mg IV morphine for pain, will give 325 mg p.o. aspirin and 4 mg IV Zofran for nausea. CBC is notable for leukocytosis 12 Urinalysis is negative for nitrites, negative for hematuria, negative for leukocyte esterase. CBC is notable for leukocytosis 12 Coags within normal limits CMP is notable for negative first troponin at less than 0.01, proBNP is within normal limits, ALP is minimally elevated at 157, lipase within normal limits. D-dimer is minimally elevated at 0.75, utilizing age-adjusted D-dimer criteria, VTE is unlikely, utilizing years criteria VTE and PE are unlikely. I reviewed the patient's chest x-ray along the corresponding radiologic report, negative chest examination. Of note, I was informed by nursing staff that the patient has had multiple cardiac workups today, 1 at her professor of biostatistics office including EKG and echocardiogram, another at an outside facility that had negative troponin and EKGs, patient's initial troponin was nonelevated, chest pain is improved upon reexamination approximately 6 PM, chest pain is improved, heart score is a 2-3. Patient would like to forego repeat troponin, shared decision-making was utilized, this is appropriate as patient is already had multiple cardiac workups at outside facilities, and chest pain initially started 6 to 7 AM this morning. Most likely noncardiac cause of the patient's chest pain, could be GI versus musculoskeletal in nature. Patient was given strict ED return precautions. Patient voiced understanding agree with the treatment plan/discharge plan. Patient follow-up PCP and professor of biostatistics office in the upcoming days. <Magalis Macdonald, DO - Last Filed: 03/08/25 15:57> Vital Signs: 03/08/25 15:47 03/08/25 16:30 03/08/25 16:35 Temperature 98.2 F Temperature Source Oral Pulse Rate 81 86 Pulse Rate [Right Radial] 91 H Respiratory Rate 98 H 15 18 Blood Pressure 152/88 H 152/88 H Blood Pressure [Right Arm] 152/77 H Blood Pressure Mean [Right Arm] 102 Blood Pressure Source Automatic Cuff Blood Pressure Source [Right Arm] Automatic Cuff Blood Pressure Position Sitting Blood Pressure Position [Right Arm] Sitting 02 Sat by Pulse Oximetry 97 97 97 Oxygen Delivery Method Room Air Room Air 03/08/25 17:00 03/08/25 17:30 Temperature Temperature Source Pulse Rate 82 81 Pulse Rate [Right Radial] Respiratory Rate 16 17 Blood Pressure 138/79 148/84 H Blood Pressure [Right Arm] Blood Pressure Mean [Right Arm] Blood Pressure Source Blood Pressure Source [Right Arm] Blood Pressure Position Blood Pressure Position [Right Arm] 02 Sat by Pulse Oximetry 98 94 L Oxygen Delivery Method Room Air Room Air Lab Data Lab Results 03/08/25 15:59: WBC 12.0 H, RBC 4.27, Hgb 13.2, Hct 39.9, MCV 93.4, MCH 30.9, MCHC 33.1, RDW 14.4, Plt Count 298, MPV 10.3, Neut % (Auto) 59.7, Lymph % (Auto) 29.6, [place] % (Auto) 7.0, Eos % (Auto) 2.2, Baso % (Auto) 0.6, Neut # (Auto) 7.2, Lymph # (Auto) 3.6, [place] # (Auto) 0.8, Eos # (Auto) 0.3, Baso # (Auto) 0.1, PT 10.4, INR 0.93, D-Dimer 0.75 H, Sodium 137, Potassium 3.7, Chloride 105, Carbon Dioxide 27, Anion Gap 8.7, BUN 18 H, Creatinine 1.00, Estimated Creat Clear 63, Estimated GFR 58 L, Est GFR ( Amer) 70, Glucose 142 H, Calcium 9.4, Magnesium 2.1, Total Bilirubin 0.4, AST 25, ALT 26, Alkaline Phosphatase 157 H, Troponin I < 0.01, NT-Pro-B Natriuret Pep < 20.0, Total Protein 7.3, Albumin 4.5, Globulin 2.8, Albumin/Globulin Ratio 1.6, Lipase 269, HCV Ab KAYLIE w/Rflx PCR Qn Negative, HIV Ag/Ab Combo Qual Negative 03/08/25 16:03: Urine Color Yellow, Urine Appearance Clear, Urine pH 6.0, Ur Specific [place] 1.015, Urine Protein Negative, Urine Glucose (UA) Negative, Urine Ketones Negative, Urine Blood Negative, Urine Nitrate Negative, Urine Bilirubin Negative, Urine Urobilinogen 0.2, Ur Leukocyte Esterase Negative Orders (Tests/Meds): ED MEDICATIONS Discontinued Medications Generic Name Dose Route Start Last Admin Trade Name Mikeq PRN Reason Stop Dose Admin Aspirin 325 mg 03/08/25 16:01 03/08/25 16:13 Aspirin 325mg Tablet PO 03/08/25 16:02 325 mg ONCE ONE Administration Morphine Sulfate 4 mg 03/08/25 16:02 03/08/25 16:14 Morphine 4mg/Ml Syringe IV 03/08/25 16:03 4 mg ONCE ONE Administration Ondansetron HCl 4 mg 03/08/25 16:02 03/08/25 16:14 Ondansetron 4mg/2ml Vial IV 03/08/25 16:03 4 mg ONCE ONE Administration ORDERS Category Date Time Status XR chest portable Stat Exams 03/08/25 15:55 Completed Complete Blood Count Auto Diff Stat Lab 03/08/25 15:59 Completed Comprehensive Metabolic Panel Stat Lab 03/08/25 15:59 Completed D-Dimer Stat Lab 03/08/25 15:59 Completed HIV Combo Stat Lab 03/08/25 15:59 Completed Hepatitis C Ab Qual. W/ RFX Stat Lab 03/08/25 15:59 Completed Lipase Stat Lab 03/08/25 15:59 Completed Magnesium Stat Lab 03/08/25 15:59 Completed NT Pro Brain Natriuretic Pep. Stat Lab 03/08/25 15:59 Completed PT INR [Prothrombin Time INR] Stat Lab 03/08/25 15:59 Completed Troponin I Q3H Lab 03/08/25 19:00 Ordered Troponin I Q3H Lab 03/08/25 22:00 Ordered Troponin I Stat Lab 03/08/25 15:59 Completed Urinalysis and Microscopic Stat Lab 03/08/25 16:03 Results ECG Data Tracing #1: I reviewed this ECG and interpreted as documented below: Normal sinus rhythm with a ventricular rate of [address] changes concerning for ischemia. Normal intervals ECG initial impression date: 03/08/25 ECG initial impression time: 15:52 Critical Care <JOSE Banerjee - Last Filed: 03/08/25 18:09> Critical Care Time Critical Care Time: No
--- OUTSIDE RECORDS SUMMARY | 2025-03-08 16:01 | XMS_ITS | Continuity of Care Document ---
Author Organization [facility] Phone Care Team Providers Care Success Coach Name Role Phone STORMY NAIR Primary Attending STORMY NAIR Admitting HARRIET CALI Primary Care STORMY NAIR Unavailable ALLERGIES AND ADVERSE REACTIONS ALLERGIES AND ADVERSE REACTIONS Code System Allergy Substance Adverse Reaction Date Reaction (Severity) Comment Status Reported By Updated By [id number] RXNorm Diphenhydramine Adverse reaction to substance (Mild) pt active [id number] on April 23, 2024 7:56:36 PM UTC Tetanus Toxoids Adverse reaction to substance Not Specified active [id number] on April 23, 2024 7:56:36 PM UT FAMILY HISTORY RELATION: Father Status: Cause of : Unknown Age at : Unknown SNOMED-CT Diagnosis Age At Onset [id number] Heart disease RELATION: Mother Status: LIVING SNOMED-CT Diagnosis Age At Onset [id number] Hypertensive disorder RESULTS Patient: RAI Villalobos Date of : [birth year] LABORATORY RESULTS ORDER 200: CBC AUTO W DIFF ( LOINC: 39909-2) ORDER DATE: March 08, 2025 4:50:00 PM UT Specimen Source: Whole Blood Specimen Type: Whole blood s ample PERFORMING LAB: [facility] [id number] Result Comment: Final Result Date: March 08, 2025 5:04:00 PM UT (TECH: MRB) LOINC TEST FLAG RESULT REFERENCE RANGE UPDA JAYY BY 6690-2 Leukocytes [#/volume] in Blood by Automated count N 10.6 10^3/uL 4.5 10^3/uL - 11.5 10^3/uL March 08, 2025 5:04:00 PM UTC (TECH: MRB) 789-8 Erythrocytes [#/volume] in Blood by Automated count L 4.03 10^6/uL 4.25 10^6/uL - 5.57 10^6/uL March 08, 2025 5:04:00 PM UTC (TECH: MRB) 718-7 Hemoglobin [Mass/volume] in Blood N 12.7 g/dL 12.0 g/dL - 15.7 g/dL March 08, 2025 5:04:00 PM UTC (TECH: MRB) 10868-0 Hematocrit [Volume Fraction] of Blood N 37.9 % 36.0 % - 47.0 % March 08, 2025 5:04:00 PM UTC (TECH: MRB) 787-2 Erythrocyte mean corpuscular volume [Entitic volume] by Automated count N 94.0 fl 80 fl - 95 fl March 08, 2025 5:04:00 PM UTC (TECH: MRB) 00517-4 Erythrocyte mean corpuscular hemoglobin [Entitic mass] in Blood from [place] by Automated count N 31.5 pg 27.0 pg - 34.0 pg March 08, 2025 5:04:00 PM UTC (TECH: MRB) 32221-2 Erythrocyte mean corpuscular hemoglobin concentration [Mass/volume] in Blood from Fetus by Automated count N 33.5 g/dL 32.0 g/dL - 36.0 g/dL March 08, 2025 5:04:00 PM UTC (TECH: MRB) 80916-5 Platelets [#/volume] in Blood N 271 10^3/uL 150 10^3/uL - 450 10^3/uL March 08, 2025 5:04:00 PM UTC (TECH: MRB) 71498-0 Erythrocyte distribution width [Ratio] N 14.3 % 12.3 % - 15.1 % March 08, 2025 5:04:00 PM UTC (TECH: MRB) 71227-7 Platelet mean volume [Entitic volume] in Blood by Automated count N 9.9 fl 7.4 fl - 10.4 fl March 08, 2025 5:04:00 PM UTC (TECH: MRB) 32778-9 Granulocytes/100 leukocytes in Blood by Automated count N 60.5 % 40 % - 75 % March 08, 2025 5:04:00 PM UTC (TECH: MRB) 736-9 Lymphocytes/100 leukocytes in Blood by Automated count N 30.0 % 15 % - 57 % March 08, 2025 5:04:00 PM UTC (TECH: MRB) 5905-5 Monocytes/100 leukocytes in Blood by Automated count N 6.2 % 4.0 % - 12.0 % March 08, 2025 5:04:00 PM UTC (TECH: MRB) 713-8 Eosinophils/100 leukocytes in Blood by Automated count N 2.4 % 0.0 % - 4.0 % March 08, 2025 5:04:00 PM UTC (TECH: MRB) 706-2 Basophils/100 leukocytes in Blood by Automated count N 0.3 % 0.0 % - 1.0 % March 08, 2025 5:04:00 PM UTC (TECH: MRB) 79751-1 Immature granulocytes [#/volume] in Blood N 0.6 % 0.0 % - 0.8 % March 08, 2025 5:04:00 PM UTC (TECH: MRB) 82495-8 Granulocytes [#/volume] in Blood by Automated count N 6.41 10^3/uL March 08, 2025 5:04:00 PM UTC (TECH: MRB) 731-0 Lymphocytes [#/volume] in Blood by Automated count N 3.17 10^3/uL March 08, 2025 5:04:00 PM UTC (TECH: MRB) 742-7 Monocytes [#/volume] in Blood by Automated count N 0.66 10^3/uL March 08, 2025 5:04:00 PM UTC (TECH: MRB) 711-2 Eosinophils [#/volume] in Blood by Automated count N 0.25 10^3/uL March 08, 2025 5:04:00 PM UTC (TECH: MRB) 704-7 Basophils [#/volume] in Blood by Automated count N 0.03 10^3/uL March 08, 2025 5:04:00 PM UTC (TECH: MRB) 47194-4 Immature granulocytes [#/volume] in Blood N 0.06 10^3/uL March 08, 2025 5:04:00 PM UTC (TECH: MRB) 09292-0 Manual differential performed [Presence] in Blood N NO March 08, 2025 5:04:00 PM UTC (TECH: MRB) ORDER 300: THYROID STIMULATI NG HORMONE (LOINC: 3016-3) ORDER DATE: March 08, 2025 4:50:00 PM UTC Specimen Source: Serum/Plasm a Specimen Type: Acellular blo od (serum or plasma) specimen PERFORMING LAB: [address] [id number] Result Comment: Final Result Date: March 08, 2025 5:33:00 PM UTC (TECH: HC) LOINC TEST FLAG RESULT REFERENCE RANGE UPDA JAYY BY 3016-3 Thyrotropin [Units/volume] in Serum or Plasma N 2.38 mIU/mL 0.34 mIU/mL - 4.80 mIU/mL March 08, 2025 5:33:00 PM UTC (TECH: HC) ORDER 400: T4 FREE (LOINC: 3 024-7) ORDER DATE: March 08, 2025 4:50:00 PM UTC Specimen Source: Serum/Plasm a Specimen Type: Acellular blo od (serum or plasma) specimen PERFORMING LAB: [address] [id number] Result Comment: Final Result Date: March 08, 2025 5:33:00 PM UTC (TECH: HC) LOINC TEST FLAG RESULT REFERENCE R[place]AY[place] BY 3024-7 Thyroxine (T4) free [Mass/volume] in Serum or Plasma N 0.80 ng/dl 0.76 ng/dl - 1.46 ng/dl March 08, 2025 5:33:00 PM UTC (TECH: HC) ORDER 500: COMP METABOLIC PA ABDIRIZAK (LOINC: 36092-7) ORDER DATE: March 08, 2025 4:50:00 PM UTC Specimen Source: Serum/Plasm a Specimen Type: Acellular blo od (serum or plasma) specimen PERFORMING LAB: [address] [id number] Result Comment: Final Result Date: March 08, 2025 5:33:00 PM UTC (TECH: HC) LOINC TEST FLAG RESULT REFERENCE RANGE UPDA JAYY BY 2951-2 Sodium [Moles/volume ] in Serum or Plasma N 140 mmol/L 136 mmol/L - 145 mmol/L March 08, 2025 5:33:00 PM UTC (TECH: HC) 2823-3 Potassium [Moles/volume] in Serum or Plasma N 4.5 mmol/L 3.5 mmol/L - 5.1 mmol/L March 08, 2025 5:33:00 PM UTC (TECH: HC) 5-0 Chloride [Moles/volu me] in Serum or Plasma N 105 mmol/L 98 mmol/L - 107 mmol/L March 08, 2025 5:33:00 PM UTC (TECH: HC) 2027-9 Carbon dioxide, tota l [Moles/volume] in Serum or Plasma N 28 mmol/L 21 mmol/L - 32 mmol/L March 08, 2025 5:33:00 PM UTC (TECH: ) 94874-6 Anion gap 3 in Serum or Plasma N 7.0 March 08, 2025 5:33:00 PM UTC (TECH: ) 2345-7 Glucose [Mass/volume ] in Serum or Plasma H 115 mg/dL 70 mg/dL - 110 mg/dL March 08, 2025 5:33:00 PM UTC (TECH: HC) 3094-0 Urea nitrogen [Mass/volume] in Serum or Plasma H 20 mg/dL 7 mg/dL - 18 mg/dL March 08, 2025 5:33:00 PM UTC (TECH: HC) 2160-0 Creatinine [Mass/volume] in Serum or Plasma N 1.0 mg/dL 0.6 mg/dL - 1.0 mg/dL March 08, 2025 5:33:00 PM UTC (TECH: HC) 3097-3 Urea nitrogen/Creatinine [Mass Ratio] in Serum or Plasma N 20.0 - March 08, 2025 5:33:00 PM UTC (TECH: ) 47432-9 Glomerular filtratio n rate/1.73 sq M.predicted by Creatinine-based formula (MDRD) N 67 mL/min >60 March 08, 2025 5:33:00 PM UT (TECH: HC) 30272-8 Osmolality of Serum or Plasma by calculated by sum of electrolytes N 295 mosm/kg 275 mosm/kg - 301 mosm/kg March 08, 2025 5:33:00 PM UTC (TECH: HC) 2885-2 Protein [Mass/volume ] in Serum or Plasma N 7.3 g/dL 6.4 g/dL - 8.2 g/dL March 08, 2025 5:33:00 PM UT (TECH: HC) 1751-7 Albumin [Mass/volume ] in Serum or Plasma N 3.6 g/dL 3.4 g/dL - 5.0 g/dL March 08, 2025 5:33:00 PM UT (TECH: HC) 42225-1 Calcium [Mass/volume ] in Serum or Plasma N 9.2 mg/dL 8.5 mg/dL - 10.1 mg/dL March 08, 2025 5:33:00 PM UT (TECH: HC) 83353-3 Calcium [Mass/volume ] corrected for total protein in Serum or Plasma N 9.5 mg/dL 8.5 mg/dL - 10.1 mg/dL March 08, 2025 5:33:00 PM [facility] (TECH: [employer]) 1975-2 Bilirubin.total [Mass/volume] in Serum or Plasma L 0.3 mg/dL 0.4 mg/dL - 1.5 mg/dL March 08, 2025 5:33:00 PM UT (TECH: HC) 1920-8 Aspartate aminotransferase [Enzymatic activity/volume] in Serum or Plasma L 13 U/L 15 U/L - 37 U/L March 08, 2025 5:33:00 PM [facility] (TECH: HC) 1742-6 Alanine aminotransferase [Enzymatic activity/volume] in Serum or Plasma N 27 U/L 12 U/L - 78 U/L March 08, 2025 5:33:00 PM UT (TECH: [employer]) 6768-6 Alkaline phosphatase [Enzymatic activity/volume] in Serum or Plasma H 155 U/L 50 U/L - 120 U/L March 08, 2025 5:33:00 PM UT (TECH: [employer]) ORDER 600: LIPID PANEL (KIARAIN C: 49735-1) ORDER DATE: March 08, 2025 4:50:00 PM UT Specimen Source: Serum/Plasm a Specimen Type: Acellular blo od (serum or plasma) specimen PERFORMING LAB: [address] [id number] Result Comment: Final Result Date: March 08, 2025 5:33:00 PM UT (TECH: HC) LOINC TEST FLAG RESULT REFERENCE RANGE UPDA JAYY BY 2571-8 Triglyceride [Mass/volume] in Serum or Plasma N 143 mg/dL 20 mg/dL - 200 mg/dL March 08, 2025 5:33:00 PM UTC (TECH: HC) 2093-3 Cholesterol [Mass/volume] in Serum or Plasma N 145 mg/dL 0 mg/dL - 200 mg/dL March 08, 2025 5:33:00 PM UTC (TECH: HC) 2085-9 Cholesterol in HDL [Mass/volume] in Serum or Plasma L 44 mg/dL 60 mg/dL March 08, 2025 5:33:00 PM UTC (TECH: HC) 09905-2 Cholesterol in LDL [Mass/volume] in Serum or Plasma by calculation L 72 mg/dL 100 mg/dL March 08, 2025 5:33:00 PM UT (TECH: HC) 2095-8 Cholesterol in HDL/Cholesterol.tota l [Mass Ratio] in Serum or Plasma N 3 - 5 March 08, 2025 5:33:00 PM UT (TECH: HC) ORDER 700: TROPONIN QUANT (L OINC: 94761-4) ORDER DATE: March 08, 2025 4:50:00 PM UTC Specimen Source: Plasma Specimen Type: Plasma specim en PERFORMING LAB: [address] [id number] Result Comment: Final Result Date: March 08, 2025 5:27:00 PM UT (TECH: HC) LOINC TEST [place] [address]-0 Troponin I.cardiac panel - Serum or Plasma by High sensitivity method N 7 ng/L 0 ng/L - 51 ng/L March 08, 2025 5:27:00 PM UT (TECH: HC) ORDER 800: AMYLASE (LOINC: 1 798-8) ORDER DATE: March 08, 2025 4:50:00 PM UTC Specimen Source: Serum/Plasm a Specimen Type: Acellular blo od (serum or plasma) specimen PERFORMING LAB: [address] [id number] Result Comment: Final Result Date: March 08, 2025 5:14:00 PM UT (TECH: MRB) LOINC TEST FLAG RESULT REFERENCE RANGE UPDA JAYY BY 1798-8 Amylase [Enzymatic activity/volume] in Serum or Plasma N 62 U/L 25 U/L - 115 U/L March 08, 2025 5:14:00 PM UT (TECH: MRB) ORDER 900: LIPASE (LOINC: 30 40-3) ORDER DATE: March 08, 2025 4:50:00 PM [facility] Specimen Source: Serum/Plasm a Specimen Type: Acellular blo od (serum or plasma) specimen PERFORMING LAB: [address] [id number] Result Comment: Final Result Date: March 08, 2025 5:14:00 PM [facility] (TECH: MRB) LOINC TEST FLAG RESULT REFERENCE RANGE UPDA JAYY BY 3040-3 Lipase [Enzymatic activity/volume] in Serum or Plasma N 67 U/L 16 U/L - 77 U/L March 08, 2025 5:1 4:00 PM [facility] (TECH: MRB) LABORATORY NARRATIVE RESULTS Information is not available RADIOLOGY RESULTS Information is not available PATHOLOGY NARRATIVE RESULTS Information is not available [...] Description Effective Dates Offered Cessation Comment UpdatedBy [id number] Historical Tobacco smoking status Current Every Day Smoker [id number] on April 23, 2024 8:50:19 PM [facility] [id number] Historical Tobacco smoking status Never Smoked [id number] on February 26, 2023 8:24:02 PM [facility] [id number] Historical Tobacco smoking status Unknown If Ever Smoked [id number] on July 25, 2013 11:27:36 PM [facility] SOCIAL HISTORY - Gender Sex: Female SOCIAL [...] available. ENCOUNTERS ENCOUNTER INFORMATION Reason for Visit R07.2 Admission March 08, 2025 4:40:[address] [id number] Discharge March 08, 2025 4:40:00 PM [facility] DISC HARGED TO HOME OR SELF CARE ENCOUNTER DIAGNOSES Notes information is not william ilable. Code System Diagnosis Onset Date Diagnosis information is not available. ABSTRACT DIAGNOSES Code System Diagnosis Updated By Abstract Diagnosis informati on is not available. 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 Role on Team Status Start Date End Date Update d By KARELY WEATHERS PCP normal March 08 4:00:00 AM [facility] March 08, 2025 4:40:00 PM [facility] [id number] on March 08, 2025 4:42:14 PM [facility] KOREY CARLIN MD Referring normal March 08, 2025 4:00:00 AM [facility] March 08, 2025 4:40:00 PM [facility] [id number] on March 08, 2025 4:42:14 PM [facility] KOREY CARLIN MD Attending normal March 08, 2025 4:00:00 AM [facility] March 08, 2025 4:40:00 PM [facility] [id number] on March 08, 2025 4:42:14 PM [facility] KOREY CARLIN MD Admitting normal March 08, 2025 4:00:00 AM [facility] March 08, 2025 4:40:00 PM [facility] [id number] on March 08, 2025 4:42:14 PM [facility]
--- OUTSIDE RECORDS SUMMARY | 2025-03-08 16:01 | XMS_ITS | Continuity of Care Document ---
Author Organization [place] [facility] [place], [facility] Address [address] [facility] [address] [place] [address] Care Team Providers Care Weapons Officer Name Role Phone NIECY HATFIELD Historian [employer]amatic [employer] [phone] Assessment Encounter Date Assessment Date Assessment LastModified by Organization Details LastModified Time 02/16/2025 02/16/2025 54-year-old female with: [email or web address] Not available 02/16/2025 11:54:06 Plan of Treatment Reminders Order Date Submit Date Provider Last Modified By Organization Details Last Modified Time Details Appointments None recorded. Lab None recorded. Referral None recorded. Procedures None recorded. Surgeries None recorded. Imaging None recorded. Medication Orders Motegrity 2 mg tablet 2024 025 [facility], [address] [address] [place], [id number], 15:14:44 Patient TargetsNo targets recorded. Patient InstructionsNo instructions recorded. Reason for Referral None Reported. Results Created Date Observation Date Name Description Value Unit Range Abnormal Flag Note LastModifiedBy Organization Detail LastModifiedTime 02/18/2002/15/2025 XR, esoph agram No observ ation record ed. [facility] [address], [place], [address], 02/17/2025 14:35:59 02/23/20 25 02/15/2025 [place], modif ied shirley odom study No observ ation record ed. [facility] [address], [place], [address], 02/22/2025 12:09:55 Result Notes None recorded. Problems Name Problem SNOMED Code Status Onset Date Resolution Date Notes Provider Name and Address Organization Details Recorded Time Gastroesophag eal reflux disease without esophagitis 733750483 Active 2023 Cornelio Cooper PA-C [address] , [place], [address] , [place] [facility] [place] 4 10:33:08 Regurgitation of gastric content 94542803 Active [address], [place], [address] , [place] [facility] [place] 10:33:35 Nausea 182036497 Active [address], [place], [address] , [place] [facility] [place] 4 10:33:43 Chronic idiopathic constipation 69364972 Active 2023 Cornelio Cooper PA-C [address], [place], [address] , [place] [facility] [place] 10:35:21 Constipation alternates with diarrhea 942079592 Active 2023 Cornelio Cooper PA-C [address], [place], [address] , [place] [facility] [place] 4 10:36:31 Biliary dyskinesia 808330803 Active [address], [place], [address] , [place] [facility] [place] 5 13:26:10 Dysphagia 83286871 Active 2024 Cornelio Cooper PA-C [address], [place], [address] , [place] [facility] [place] 5 13:16:18 Diverticuliti s of intestine 574153352 Active 2024 Cornelio Cooper PA-C [address] , [place], [address] , [place] [facility] [facility] [place] 5 15:57:22 Arthritis 1638360 Active 2022 Basia Palumbo null[place] [facility] [facility] [place] 3 14:48:04 Diabetes mellitus 44401809 Active 2022 Basiabrandon Palumbo null[place] [facility] 3 14:48:08 Hypercholeste rolemia 55983550 Active 2022 Basia Palumbo null[place] 3 14:48:19 Fibromyalgia 442099994 Active 2022 Basia Palumbo null[place] [facility] 3 14:48:26 Irritable bowel syndrome 70709974 Active 2022 Basia Palumbo null[place] 3 14:48:30 Anemia 818914467 Active 2022 Britany Mujica null[place] [facility] [place] 3 14:03:28 Hypertensive disorder 57701496 Active 2022 Britany Muj[place] null[place] [facility] [place] 3 14:03:37 Cardiac pacemaker in situ 851571972 Active 2022 Britany Mujica null[place] [facility] [place] 3 14:04:04 Anxiety 15062236 Active 2022 Denyskannan Mujica null[place] [facility] [place] 3 14:04:14 Asthma 625130766 Active 2022 Denyskannan Mujica null[place] 3 14:04:20 Seizure 98295481 Active 2022 Denyskannan Mujica null[place] [facility] 14:04:25 Problem Notes None recorded. Procedures Surgical History Date Name Laterality Status Provider Name and Address Organization Details Recorded Time 025 Colonoscopy completed Thompson Patel [place] [facility] [place] [facility] [place] 01/25/2025 12:58:03 025 cholecystectomy completed Katie Falcon [place] [facility] [facility] [place] 12/27/2024 10:19:28 024 completed Danay Carey [place] [facility] [place] [facility] [place] 01/25/2025 12:59:25 024 Most Recent Bone Density completed Danay [place] [facility] [facility] [place] 01/25/2025 12:59:25 024 Other completed Danay [place] [facility] 01/25/2025 12:59:43 024 Joint Replacement completed [place]ay [place] [facility] [facility] [place] 01/25/2025 12:59:43 023 Cystoscopy-Female completed Jordan Gil Jr, MD [address] [place] [address], [address], [place], [address], [place] [facility] [place] [facility] [place] 03/06/2023 15:35:18 023 Date of Last Colonoscopy completed Danay [place] [facility] [place] [facility] [place] 01/25/2025 12:59:25 023 Other completed Danay [place] [facility] 01/25/2025 12:59:43 023 Pacemaker/Defibril lator completed [place]ay [place] [facility] [facility] [place] 01/25/2025 12:59:43 023 Abdominal Surgery completed [place]ay [place] [facility] 01/25/2025 12:59:43 022 Cardiovascular Surgery completed Danay [place] [facility] 01/25/2025 12:59:43 020 total replacement of hip completed Basia Palumbo [place] - [facility] [place] [facility] [place] 12/03/2022 15:14:14 020 Head or Neck Surgery completed Danay Marquezdwell [place] - [facility] [place] [facility] [place] 01/25/2025 12:59:43 020 Hip Surgery completed Danaykayla Marquezdwell [place] - [facility] [place] [facility] [place] 01/25/2025 12:59:43 019 Joint Replacement completed Danay Carey [place] [facility] [place] [facility] [place] 01/25/2025 12:59:43 019 Hip Surgery completed Danay Carey [place] - [facility] [place] [facility] [place] 01/25/2025 12:59:43 016 EGD/Endoscopy completed Basia Deepali [place] - [facility] [place] [facility] [place] 12/03/2022 15:14:01 014 Colonoscopy completed Basia Deepali [place] - [facility] [place] [facility] [place] 12/03/2022 15:13:52 004 Date of Last Pap Smear completed Danay Carey [place] - [facility] [place] [facility] [place] 01/25/2025 12:59:25 975 Tonsillectomy/Jonathan oidectomy completed Danay Carey [place] - [facility] [place] [facility] [place] 01/25/2025 12:59:43 neck repair completed Britany NIEVES - [facility] [place] [facility] [place] 03/06/2023 14:05:26 procedure on knee completed Britany NIEVES - [facility] [place] [facility] [place] 03/06/2023 14:05:44 Total Hysterectomy completed Elroy NIEVES - [facility] - [place] [facility] [place] 03/06/2023 14:05:56 cardiac pacemaker procedure completed Britany NIEVES - [facility] - [place] [facility] [place] 03/06/2023 14:06:07 pain assessment completed Britany NIEVES - [facility] - [place] [facility] [place] 03/06/2023 14:06:20 Imaging Results None recorded. Procedure Notes None recorded. Medical Equipment None Reported. Allergies Allergen ID Allergen Name Allergen Category Reaction Reaction Severity Criticality Documentation Date Start Date Code Code System Note Provider Name and Address Organization Details Recorded Time 350628 meclizine medicatio n Not available Not available Not available 08/24/2023 6676 RxNorm [place] Baker [facility] [place] 3 10:59:14 703083 Substance with sulfonami de structure and antibacte rial mechanism of action (substanc e) medicatio n nausea severe Not available 02/16/2025 79879 8003 SNOMED [place] Phipps [facility] [place] 5 11:56:11 76285 Benadryl medicatio n Not available Not available Not available 12/03/202224434 7 RxNorm [place] Rodriguez [facility] [place] 3 14:47:43 41034 tetanus and diphtheri a toxoids Not available Not available Not available Not available 12/03/2022 29116 UNK [place] [facility] [place] 3 14:47:55 15414 adhesive environme nt,medica tion Not available Not available Not available 03/06/2023 16899 UNK [place] Muñoz [facility] [place] 3 13:49:50 Medications Name Sig Start Date Stop Date Status Note LastModified by Organization Details LastModified Time clindamycin /mupirocin 100/20mg topical capsule (xylitol) [63822] MIX THE CONTENTS OF 1 CAPSULE WITH [...] Available colistimeth ate/vancomy mable/ fluconazole 5/4/2% ointment [30189] APPLY 1 GRAM TO INFECTION SITE. PERFORM [...] Available Not Available prednisone 20 mg tablet TAKE 1 TABLET BY MOUTH TWICE DAILY active Not Available Not Available No t Available venlafaxine ER 150 mg capsule,ext ended [...] BY MOUTH 2 TIMES A DAY NEEDED active Not Available Not Available No t Available methocarbam ol 750 mg tablet TAKE 1 TABLET BY MOUTH THREE TIMES DAILY active Not Available Not Available No [...] Not Available baclofen 10 mg tablet TAKE 1 TABLET BY MOUTH 4 TIMES A DAY NEEDED active Not Available [...] Not Available Not Available No t Available promethazin e 25 mg tablet 11/15 [...] CAPSULE BY MOUTH 2 TIMES A DAY active Not Available Not Available No t Available diclofenac sodium 75 mg tablet,nydia yed [...] TABLET BY MOUTH EVERY MORNING WITH BREAKFAST active Not Available Not Available No t Available gentamicin 0.1 % topical ointment APPLY [...] nicotine (polacrilex ) 4 mg buccal lozenge DISSOLVE 1 lozenge BY MOUTH EVERY 1 TO 2 HOURS DO not exceed more THAN 20 PER DAY active Not Available Not Available No t Available Finacea 15 % topical gel 03/06 [...] D3) 1,250 mcg (50,000 unit) capsule TAKE 1 CAPSULE BY MOUTH ONCE WEEKLY active Not [...] Not Available Not Available No t Available Trelegy Ellipta 100 mcg-62.5 mcg-25 mcg powder for inhalation INHALE 1 PUFF BY MOUTH ONCE A DAY active Not Available Not Available No t Available Ozempic 0.25 mg or 0.5 mg (2 mg/1.5 mL) subcutaneou s pen injector 08/17 completed Not Available Not Available Not Available Dexcom G6 Sensor device USE DIRECTED active Not Available Not Available No t Available Dexcom G6 Technical Publications Manager active Not Available Not Available Not Available Dexcom G6 Transmitter device active Not Available Not Available Not Available Emgality Pen 120 mg/mL subcutaneou s pen injector inject 1 ML SUBCUTANE OUSLY ONCE every 30 DAYS active Not Available Not Available No t Available Motegrity 2 mg tablet TAKE 1 TABLET BY MOUTH ONCE A DAY active Not Available Not Available No t Available OneTouch Ultra2 Meter active Not Available Not Available Not Available OneTouch Delica Plus Lancet 33 gauge active Not Available Not Available Not Available [facility] ODT 75 mg disintegrat ing tablet 03/16 completed Not Available Not Available Not Available [facility] ODT 03/16 completed Not Available Not [...] Last Updated DateTime 170.18 cm 44.6 kg/m2 361932. 03 g 96.8 [degF] 84 /min 82 /min 97 % 97 % 149 mm[Hg] 99 mm[Hg] Danay Carey [facility] [place] 11:12:16 Social History Question Answer Notes LastModified by Motostrano Details LastModified Time Tobacco Smoking Status Current Every Day Smoker Basia Palumbo savita, [facility] [place] 12/03/2022 15:13:21 Do You Have An Advance Directive? No [email or web address] Information not available 01/25/2025 Are You Blind Or Do You Have Difficulty Seeing? No [email or web address] Information not available 01/25/2025 What Was The Date Of Your Most Recent Tobacco Screening? 08/15/2024 [email or web address] Information not available 01/25/2025 Are You Passively Exposed To Smoke? No [email or web address] Information not available 01/25/2025 How Much Tobacco Do You Smoke? 1 PPW [email or web address] Information not available 01/25/2025 How Many Years Have You Smoked Tobacco? 31 [email or web address] Information not available 01/25/2025 Sex: Female Functional Status Question Answer Note LastModified by Organizat ion Details LastModified Time Do you use any illicit or recreational drugs? No [email or web address] Information not available 12/03/2022 What is your level of alcohol consumption? None [email or web address] Information not available 12/03/2022 Do you or have you ever used smokeless tobacco? Never used smokeless tobacco [email or web address] Information not available 01/25/2025 What is your exercise level? None [email or web address] Information not available 01/25/2025 Mental Status Question Answer Note LastModified by Organization D etails LastModified Time Do you feel stressed (tense, restless, nervous, or anxious, or unable to sleep at night)? [id number] [email or web address] Information not available 01/25/2025 Family History Relationship Description Onset Age of this Age Resolved Age Notes LastModified by Organization Details LastModified Time Mother Hypertensive disorder [email or web address] Not available 12/03 15:12:55 Father Coronary arterioscler osis [email or web address] Not available 2024 11:07:22 Father Hypertensive disorder Not available 03/2023 11:00:03 Father Heart disease [email or web address] Not available 03/2023 11:00:12 Brother Coronary arterioscler osis dec [email or web address] Not available 2024 11:07:22 Brother Diabetes mellitus [email or web address] Not available 2024 11:07:22 Paternal Grandmother Obesity Not available 10/24/2022 10:59:38 Maternal Grandfather Asthma [email or web address] Not [...] Katie [place] null[place] [facility] [place] 11/24/2024 10:00:11 zoster recombinant 5 completed Katie [place] [facility] [facility] [place] 11/24/2024 10:01:26 pneumococcal, unspecified formulation 3 completed Katie [place] [facility] [facility] [place] 11/24/2024 10:01:07 Influenza, split virus, quadrivalent, preservative 2 completed Danay [place] null, [place] [facility] [place] 01/25/2025 12:59:55 COVID-19, mRNA, LNP-S, PF, 30 mcg/0.3 mL dose 1 completed Danay [place] [facility] [facility] [place] 01/25/2025 12:59:55 COVID-19, mRNA, LNP-S, PF, 30 mcg/0.3 mL dose 1 completed Danay [place] [facility] [place] 01/25/2025 12:59:55 Pneumococcal conjugate PCV20, polysaccharide OCN077 conjugate, adjuvant, PF 2 completed Danay [place] [facility] [place] 01/25/2025 12:59:55 Influenza, split virus, trivalent, preservative 9 completed Danay [place] [facility] [place] 01/25/2025 12:59:55 Influenza, split virus, quadrivalent, PF 3 completed Danay [place] [facility] [place] 01/25/2025 12:59:55 Past Encounters Encounter ID Performer Location Encounter Start Date Encounter Closed Date Diagnosis/Indication Diagnosis SNOMED-CT Code Diagnosis ICD10 Code Diagnosis Note [id number] Cornelio Cooper PA-C [facility] [address] [address] 01/25/2025 12:45:40 01/25/2025 13:20:02 Chronic idiopathic constipation 97255281 K59.04 Continue Linzess 145 mcg once daily. Improved. Gastroesop hageal reflux disease without esophagitis 079619839 K21.9 -Not optimally controlled . Stop pantoprazo le. Start Dexlansopr azole 60 mg p.o. once daily. Nausea 460314636 R11.0 Resolved following recent cholecyste ctomy. GES was normal 10/18/24. History of polyp of colon 298478009 Z86.0100 -Repeat surveillan ce colonoscop y 12/2029. Dysphagia 24835569 R13.1 0 She describes both oropharyng eal and esophageal dysphagia symptoms. [facility] performed [facility] 20[facility]. She is unclear if this was beneficial .-Obtain esophagram and MBS. Consider repeat EGD. [id number] Cornelio Cooper PA-C [facility] [address] [facility] [address] [place] [address] 02/16/2025 11:06:53 02/16/2025 12:02:22 Dysphagia 20406860 R13.10 Empiric dilation performed in 2022 at [facility] was mildly helpful for a period of a few months.-MB S was overall unremarkab le.-We are awaiting her esophagram results. Consider repeat EGD with dilation. Chronic id iopathic constipation 53608712 K59.04 Hold Linzess 145 mcg. Start Motegrity 2 mg once daily. If she has refractory symptoms she may add the linzess in with the motegrity and monitor. Gastroesop hageal reflux disease without esophagitis 342088942 K21.9 -Not optimally controlled recently with pantoprazo le. She has just recent started Dexlansopr azole 60 mg p.o. once daily. Nausea 417524147 R11.0 Resolved following recent cholecyste ctomy. GES was normal 10/18/24. History of polyp of colon 670459930 Z86.0100 -Repeat surveillan ce colonoscop y 12/2029. Health Concerns Section Related Observation LastModified by Organization Detai ls LastModified Time None Recorded Concern Status LastModified by Organization Details LastModified Time None Recorded Payers Encounter Date Sequence Insurance Name Policy Number Policy Victoria Covered Member ID Victoria Member ID Guarantor Name 02/16/2025 1 [employer] [facility] (MEDICAID HMO) Frannie Nuñez [id number] Frannie Nuñez Notes Date Note Type Note [...] esophagram and modified barium swallow yesterday at [facility]. We do not have the results of these currently. I have contacted the speech therapist who performed her MBS and they indicated to me that the exam was overall unremarkable with the exception of some vallecular residue with larger bites. No aspiration was noted. We have contacted [facility] regarding her esophagram, but that has not yet been read by radiology.Regarding her constipation, we recently started Linzess, but she is now experiencing constipation for a few days consecutively, followed by periods of excessive diarrhea.Regarding GERD, she just started the Dexlansoprazole last week and has done well with this thus far. Cornelio Cooper PA-C [address] , [place], [address], [place] [facility] [place] 02/16/2025 22:13:03 OBGyn Episode No OBEpisode recorded.
--- OUTSIDE RECORDS SUMMARY | 2025-03-08 16:01 | XMS_ITS | Data Portability ---
Author Organization [facility] [place] 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 [email or web address] Not available 11/15/2024 13:22:41 01/25/2025 01/25/2025 54-year-old female with: [email or web address] Not available 01/25/2025 21:56:59 02/16/2025 02/16/2025 54-year-old female with: [email or web address] Not available 02/16/2025 11:54:06 Plan of Treatment Reminders Order Date Submit Date Provider Last Modified By Organization Details Last Modified Time Details Appointments None record ed. Lab None record ed. [facility] khang pagan record s from [facility] for HIDA scan and GBUS. Report ed as normal , but she recall s sympto m reprod uction with CCK. Chroni vani nausea carmina. Unrema rkable EGD and GES recent ly. 2024 025 [email or web address] Sakina Tran MD, [address], [place], [address], 09:57:02 Procedures None record ed. Surgeries None record ed. Imaging XR, esopha gram 2024 025 [email or web address] [facility] -New Scheduling Process, [address] [facility] [address], [place], [address], 5 14:11:12 [place], leeleeifi ed barium kaley w study 2024 025 [email or web address] [facility] -New Scheduling Process, [address] [facility] [address], [place], [address], 5 08:13:31 Medication Orders Motegr ity 2 mg tablet 2024 025 [facility], [address] [place] [address], [place], [id number], 5 15:14:44 Linzes s 145 mcg capsul e 2024 025 [facility], [address] [place] [address] [place], [id number], 5 12:46:42 dexlan sopraz ole 60 mg capsul e,biph ase delaye d releas e 2024 025 [facility], [address] [place] [address], [place], [id number], 5 15:18:34 Linzes s 145 mcg capsul e 2024 025 [facility], [address] [place] [address] [place], [place], [id number], 5 10:02:03 ondans etron 4 mg disint egrati ng tablet 2024 025 [email or web address] [facility], [address] [place] [address] [place], [id number], 5 11:56:30 Patient TargetsNo targets recorded. Patient InstructionsNo instructions recorded. Reason for Referral General Surgeon Referral for Biliary dyskinesia Requesting records from [facility] for HIDA scan and GBUS. Reported as normal, but she recalls symptom reproduction with CCK. Chronically nauseated. Unremarkable EGD and GES recently. Referring Physician: Cornelio Cooper, Gastroenterology, Encounter Date: 11/15/2024 Results Created Date Observation Date Name Description Value Unit Range Abnormal Flag Note LastModifiedBy Organization Detail LastModifiedTime 11/24/1911/24/2024 CBC NO DIFF (HEMO GRAM) WBC 9.3 K/uL 4.0-10 .5 Not Available [facility] [address] [facility], [place], [address], 11/24/2024 11:27:22 11/24/19 25 11/24/2024 CBC NO DIFF (HEMO GRAM) RBC 3.8 M/mm3 4.2-6. 4 low Not Available [facility] ([facility]) [address] [facility], [place], [address], 11/24/2024 11:27:22 11/24/19 25 11/24/2024 CBC NO DIFF (HEMO GRAM) HGB 11.8 gm/dL 12.5-1 6.0 low Not Available [facility] ([facility]) [address] [facility], [place], [address], 11/24/2024 11:27:22 11/24/19 25 11/24/2024 CBC NO DIFF (HEMO GRAM) HCT 36.8 % 37.0-4 7.0 low Not Available [facility] ([facility]) [address] [place], [address], 11/24/2024 11:27:22 11/24/19 25 11/24/2024 CBC NO DIFF (HEMO GRAM) MCV 95.8 fL 78-100 Not Available [facility] ([facility]) [address] [place], [address], 11/24/2024 11:27:22 11/24/19 25 11/24/2024 CBC NO DIFF (HEMO GRAM) MCH 30.7 pg 27-31 Not Available [facility] ([facility]) [address] , [place], [address], 11/24/2024 11:27:22 11/24/19 25 11/24/2024 CBC NO DIFF (HEMO GRAM) MCHC 32.1 g/dL 32-36 Not Available [facility] ([facility]) [address] , [place], [address], 11/24/2024 11:27:22 11/24/19 25 11/24/2024 CBC NO DIFF (HEMO GRAM) RDW 15.1 % 11.5-1 4.0 high Not Available [facility] ([facility]) [address] , [place], [address], 11/24/2024 11:27:22 11/24/19 25 11/24/2024 CBC NO DIFF (HEMO GRAM) platelet count 302 K/uL 150-45 0 Not Available [facility] ([facility]) [address] , [place], [address], 11/24/2024 11:27:22 11/24/19 25 11/24/2024 CBC NO DIFF (HEMO GRAM) MPV 10.2 fL 6-9.5 high Not Available [facility] ([facility]) [address] , [place], [address], 11/24/2024 11:27:22 11/24/19 25 11/24/2024 CBC NO DIFF (HEMO GRAM) manual differential NO Not Available [facility]) [address] , [place], [address], 11/24/2024 11:27:22 11/24/19 25 11/24/2024 COMP METAB OLIC PANEL sodium 142 mmol/ L 136-14 5 Not Available [facility] [address] , [place], [address], 11/24/2024 14:26:55 11/24/19 25 11/24/2024 COMP METAB OLIC PANEL potassium 4.2 mmol/ L 3.6-5. 0 Not Available [facility] [address] [place], [address], 11/24/2024 14:26:55 11/24/19 25 11/24/2024 COMP METAB OLIC PANEL chloride 106 mmol/ L 98-107 Not Available [facility] [address] , [place], [address], 11/24/2024 14:26:55 11/24/19 25 11/24/2024 COMP METAB OLIC PANEL carbon dioxide 24.5 mmol/ L 21.0-3 2.0 Not Available [facility] [address] [place], [address], 11/24/2024 14:26:55 11/24/19 25 11/24/2024 COMP METAB OLIC PANEL anion gap 15.7 Not Available [facility] ([facility]) [address] [place], [address], 11/24/2024 14:26:55 11/24/19 25 11/24/2024 COMP METAB OLIC PANEL glucose 125 mg/dL 70-120 high Not Available [facility] [address] [place], [address], 11/24/2024 14:26:55 11/24/19 25 11/24/2024 COMP METAB OLIC PANEL BUN 14 mg/dL 7-18 Not Available [facility] [address] [place], [address], 11/24/2024 14:26:55 11/24/19 25 11/24/2024 COMP METAB OLIC PANEL creatinine 1.0 mg/dL 0.6-1. 3 Not Available [facility]) [address], [place], [address], 11/24/2024 14:26:55 11/24/19 25 11/24/2024 COMP METAB [...] hale ing kiney funct ion. Not Available [facility] ([facility]) [address] , [place], [address], 11/24/2024 14:26:55 11/24/19 25 11/24/2024 COMP METAB OLIC PANEL total protein 7.3 g/dL 6.4-8. 2 Not Available [facility] [address] , [place], [address], 11/24/2024 14:26:55 11/24/19 25 11/24/2024 COMP METAB OLIC PANEL albumin 3.3 g/dL 3.4-5. 0 low Not Available [facility] ([facility]) [address], [place], [address], 11/24/2024 14:26:55 11/24/19 25 11/24/2024 COMP METAB OLIC PANEL globulin 4.0 Not Available [facility] ([facility]) [address], [place], [address], 11/24/2024 14:26:55 11/24/19 25 11/24/2024 COMP METAB OLIC PANEL alb/glob ratio 0.8 0.7-2 Not Available [facility] ([facility]) [address] , [place], [address], 11/24/2024 14:26:55 11/24/19 25 11/24/2024 COMP METAB OLIC PANEL calcium 9.8 mg/dL 8.5-10 .5 Not Available [facility]) [address] , [place], [address], 11/24/2024 14:26:55 11/24/19 25 11/24/2024 COMP METAB OLIC PANEL bilirubin total 0.20 mg/dL 0.10-1 .00 Not Available [facility] ([facility]) [address], [place], [address], 11/24/2024 14:26:55 11/24/19 25 11/24/2024 COMP METAB OLIC PANEL AST (SGOT) 15 U/L 0-37 Not Available [facility] ([facility]) [address] , [place], [address], 11/24/2024 14:26:55 11/24/19 25 11/24/2024 COMP METAB OLIC PANEL ALT (SGPT) 28 U/L 0-65 Not Available [facility] ([facility]) [address], [place], [address], 11/24/2024 14:26:55 11/24/19 25 11/24/2024 COMP METAB OLIC PANEL alk phosphatase 170 U/L 46-116 high Not Available [facility] ([facility]) [address], [place], [address], 11/24/2024 14:26:55 12/14/19 25 12/22/2024 PATHO LOGY SPECI MEN pathology specimen SEE YOLANDA ENRIQUE Not Available [facility] ([facility]) [address] [place], [address], 12/22/2024 14:20:19 10/20/19 25 10/18/2024 NM, gastr ic empty ing scan [facility] [address] [place] [address] Phone: Fax: Name: FRANNIE THOMPSON Exam Date: 2023 : 970 Age 54 years Gender : F Access ion: [id number] Physic rosa m: CORNELIO COOPER [place] Fac[place] HSV: Outpat ient Exam: GASTRI [...] you [facility] Legall y authen ticate d by ALISHA Neves 2023-10 12:08: 17 CC'ed Logic: Orderi ng Provid er: JONH MCKEON Attend ing Provid er: JONH MCKEON Referr ing Provid er: JONH MCKEON Admitt ing Provid er: JONH MCKEON [email or web address] [facility] [address] [facility], [place], [address], 12/24/2024 12:45:26 11/30/1911/30/2024 medic al clear ance* No observ ation record ed. [email or web address] [address], [address], 12/01/2024 09:59:03 02/18/20 25 02/15/2025 XR, esoph agram No observ ation record ed. [facility] [address], [place], [address], 02/17/2025 14:35:59 02/23/20 25 02/15/2025 [place], modif ied shirley azevedo study No observ ation record ed. [facility] [address], [place], [address], 02/22/2025 12:09:55 Result Notes None recorded. Problems Name Problem SNOMED Code Status Onset Date Resolution Date Notes Provider Name and Address Organization Details Recorded Time Gastroesophag eal reflux disease without esophagitis 606445959 Active 2023 Cornelio Cooper PA-C [address] , [place], [address] , [place] [facility] [place] 4 10:33:08 Regurgitation of gastric content 82469007 Active 2023 Cornelio Cooper PA-C [address], [place], [address] , [place] [facility] & [place] 4 10:33:35 Nausea 396571851 Active 2023 Cornelio Cooper PA-C [address], [place], [address] , [place] [facility] & [place] 4 10:33:43 Chronic idiopathic constipation 71516405 Active 2023 Cornelio Cooper PA-C [address], [place], [address] , [place] [facility] [place] 4 10:35:21 Constipation alternates with diarrhea 235471175 Active 2023 Cornelio Cooper PA-C [address], [place], [address] , [place] [facility] & [place] 4 10:36:31 Biliary dyskinesia 278986942 Active [address], [place], [address] , [place] [facility] & [place] 5 13:26:10 Dysphagia 50871017 Active [address], [place], [address] , [place] [facility] & [place] 5 13:16:18 Diverticuliti s of intestine 944223331 Active [address], [place], [address] , [place] [facility] & [place] 5 15:57:22 Arthritis 4709326 Active 2022 Basia barney, [place] [facility] [place] 3 14:48:04 Diabetes mellitus 30302152 Active 2022 Basia Palumbo null, [place] [facility] & [place] 3 14:48:08 Hypercholeste rolemia 43143089 Active 2022 Basia Palumbo null[place] [facility] [place] 3 14:48:19 Fibromyalgia 098203007 Active 2022 Basia Palumbo null[place] [facility] [place] 3 14:48:26 Irritable bowel syndrome 36720829 Active 2022 Basia Palumbo null[place] [facility] [place] 3 14:48:30 Anemia 087161374 Active 2022 Tefanie Guanako null[place] [facility] [place] 3 14:03:28 Hypertensive disorder 74971952 Active 2022 Britany Mujica null[place] [facility] [place] 3 14:03:37 Cardiac pacemaker in situ 848125564 Active 2022 Britany Mujica null[place] [facility] [place] 3 14:04:04 Anxiety 89822166 Active 2022 Britany Mujica null[place] [facility] [place] 3 14:04:14 Asthma 677624883 Active 2022 Britany Muj[place] null[place] [facility] [place] 3 14:04:20 Seizure 58575007 Active 2022 Britany Mujica null[place] [facility] [place] 3 14:04:25 Problem Notes None recorded. Procedures Surgical History Date Name Laterality Status Provider Name and Address Organization Details Recorded Time 025 Colonoscopy completed Thompson Patel [place] [facility] [place] 01/25/2025 12:58:03 025 cholecystectomy completed Katie [place] [facility] [place] 12/27/2024 10:19:28 024 completed Danay [place] [facility] [place] 01/25/2025 12:59:25 024 Most Recent Bone Density completed Danay [place] [facility] [place] 01/25/2025 12:59:25 024 Other completed Danay [place] [facility] [place] 01/25/2025 12:59:43 024 Joint Replacement completed Danay [place] [facility] [place] 01/25/2025 12:59:43 023 Cystoscopy-Female completed Jordan Gil Jr, MD [address] [place] [address], [address], [place], [address], [place] [facility] [place] 03/06/2023 15:35:18 023 Date of Last Colonoscopy completed Danay [place] [facility] [facility] [place] 01/25/2025 12:59:25 023 Other completed Danay [place] [facility] [place] 01/25/2025 12:59:43 023 Pacemaker/Defibril lator completed Danay [place] [facility] [place] 01/25/2025 12:59:43 023 Abdominal Surgery completed Danay [place] [facility] [place] 01/25/2025 12:59:43 022 Cardiovascular Surgery completed Danay [place] [facility] [place] 01/25/2025 12:59:43 020 total replacement of hip completed Basia NIEVES - [facility] - [place] & [place] 12/03/2022 15:14:14 020 Head or Neck Surgery completed Danay [place] [facility] [place] 01/25/2025 12:59:43 020 Hip Surgery [place] Danay [place] 01/25/2025 12:59:43 019 Joint Replacement completed Danay [place] 01/25/2025 12:59:43 019 Hip Surgery [place] Danay [place] [facility] [place] 01/25/2025 12:59:43 016 EGD/Endoscopy completed Basia Deepali NIEVES - [facility] - [place] & [place] 12/03/2022 15:14:01 014 Colonoscopy completed Basia Deepali NIEVES - [facility] [place] [facility] [place] 12/03/2022 15:13:52 004 Date of Last Pap Smear completed Danay Carey [place] [facility] [place] [facility] [place] 01/25/2025 12:59:25 975 Tonsillectomy/Jonathan oidectomy completed Danay NIEVES - [facility] & [place] 01/25/2025 12:59:43 neck repair completed Britany NIEVES - [facility] & [place] 03/06/2023 14:05:26 procedure on knee completed Britany Tavares [facility] & [place] 03/06/2023 14:05:44 Total Hysterectomy completed Elroy NIEVES - [facility] & [place] 03/06/2023 14:05:56 cardiac pacemaker procedure completed Britany NIEVES - [facility] & [place] 03/06/2023 14:06:07 pain assessment completed Britany Tavares [facility] [place] 03/06/2023 14:06:20 Imaging Results Imaging Date Name Status LastModified by Organiz ation Details LastModified Time 10/18/2024 NM, gastric emptying scan completed [email or web address] [facility] [address] [facility], [place], [address], 12/24/2024 12:45:26 11/30/2024 medical clearance* completed [email or web address] [address], [address], 12/01/2024 09:59:03 02/15/2025 XR, esophagram completed [facility] [address], [place], [address], 02/17/2025 14:35:59 02/15/2025 [place], modified barium swallow study completed [facility] [address], [place], [address], 02/22/2025 12:09:55 Procedure Notes None recorded. Medical Equipment None Reported. Allergies Allergen ID Allergen Name Allergen Category Reaction Reaction Severity Criticality Documentation Date Start Date Code Code System Note Provider Name and Address Organization Details Recorded Time 878977 meclizine medicatio n Not available Not available Not available 08/24/2023 6676 RxNorm LIZBETH Baker [facility] & [place] 3 10:59:14 163191 Substance with sulfonami de structure and antibacte rial mechanism of action (substanc e) medicatio n nausea severe Not available 02/16/2025 69834 8003 SNOMED Vanda barney, [facility] [place] 5 11:56:11 17778 Benadryl medicatio n Not available Not available Not available 12/03/202229964 7 RxNorm LIZBETH Rodriguez [facility] & [place] 3 14:47:43 91107 tetanus and diphtheri a toxoids Not available Not available Not available Not available 12/03/2022 90767 UNK Basia barney, LIZBETH LYNNE [facility] & [place] 3 14:47:55 67946 adhesive environme nt,medica tion Not available Not available Not available 03/06/2023 [id number] UNK [facility]ETH [facility] [place] 3 13:49:50 Medications Name Sig Start Date Stop Date Status Note LastModified by Organization Details LastModified Time clindamycin /mupirocin 100/20mg topical capsule (xylitol) [06509] MIX THE CONTENTS OF 1 CAPSULE WITH [...] lisinopril 20 mg-hydrochl orothiazide 12.5 mg tablet 05/19 /2023 completed Not Available Not Available Not Available [...] Not Available No t Available 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 19 g 97.3 [degF] 97 % 97 % 70 /min 136 mm[Hg] 91 mm[Hg] Thompson Art gem [facility] [place] 5 13:00:01 Date Recorded Body height Body mass index (BMI) Body weight Body temperature Heart rate Systolic blood pressure Diastolic blood pressure Provider Name and Address Organization Details Last Updated DateTime 5 170.18 cm 43.8 kg/m2 799934. 15 g 97.7 [degF] 73 /min 128 mm[Hg] 88 mm[Hg] Katie NIEVES [facility] & [place] 5 09:56:54 Date Recorded Body height Body mass index (BMI) Body weight Body temperature Heart rate Systolic blood pressure Diastolic blood pressure Provider Name and Address Organization Details Last Updated DateTime 5 170.18 cm 43.6 kg/m2 622349. 48 g 96.6 [degF] 73 /min 126 mm[Hg] 76 mm[Hg] [facility] [place] 5 10:16:07 Date Recorded Body height Body mass index (BMI) Body weight Heart rate Heart rate Oxygen saturation Oxygen saturation in Arterial blood by Pulse oximetry Body temperature Systolic blood pressure Diastolic blood pressure Provider Name and Address Organization Details Last Updated DateTime 5 170.18 cm 44.1 kg/m2 566855. 97 g 73 /min 72 /min 97 % 97 % 98.2 [degF] 142 mm[Hg] 80 mm[Hg] Danay Carey LIZBETH [facility] [place] 5 13:00:07 Date Recorded Body height Body mass index (BMI) Body weight Body temperature Heart rate Heart rate Oxygen saturation Oxygen saturation in Arterial blood by Pulse oximetry Systolic blood pressure Diastolic blood pressure Provider Name and Address Organization Details Last Updated DateTime 5 170.18 cm 44.6 kg/m2 822503. 03 g 96.8 [degF] 84 /min 82 /min 97 % 97 % 149 mm[Hg] 99 mm[Hg] Danay Carey [place] [facility] [facility] [place] 11:12:16 Social History Question Answer Notes LastModified by Organizat [employer] Details LastModified Time Tobacco Smoking Status Current Every Day Smoker Basia barney, [place] - [facility] & [place] 12/03/2022 15:13:21 Do You Have An Advance Directive? No [email or web address] Information not available 01/25/2025 Are You Blind Or Do You Have Difficulty Seeing? No Information not available 01/25/2025 What Was The Date Of Your Most Recent Tobacco Screening? 08/15/2024 [email or web address] Information not available 01/25/2025 Are You Passively Exposed To Smoke? No Information not available 01/25/2025 How Much Tobacco Do You Smoke? 1 PPW Information not available 01/25/2025 How Many Years Have You Smoked Tobacco? 31 [email or web address] Information not available 01/25/2025 Sex: Female Functional Status Question Answer Note LastModified by Organizat [employer] [place] Details LastModified Time Do you use any illicit or recreational drugs? No Information not available 12/03/2022 What is your level of alcohol consumption? None [email or web address] Information not available 12/03/2022 Do you or have you ever used smokeless tobacco? Never used smokeless tobacco [email or web address] Information not available 01/25/2025 What is your exercise level? None [email or web address] Information not available 01/25/2025 Mental Status Question Answer Note LastModified by Organization D etails LastModified Time Do you feel stressed (tense, restless, nervous, or anxious, or unable to sleep at night)? [id number] [email or web address] Information not available 01/25/2025 Family History Relationship Description Onset Age of this Age Resolved Age Notes LastModified by Organization Details LastModified Time Mother Hypertensive disorder [email or web address] Not available 12/03 15:12:55 Father Coronary arterioscler osis [email or web address] Not available 2024 11:07:22 Father Hypertensive disorder [email or web address] Not available 03/2023 11:00:03 Father Heart disease [email or web address] Not available 03/2023 11:00:12 Brother Coronary arterioscler osis [email or web address] Not available 2024 11:07:22 Brother Diabetes mellitus [email or web address] Not available 2024 11:07:22 Paternal Grandmother Obesity [email or web address] Not available 1 10/24/2022 10:59:38 Maternal Grandfather [...] Time influenza, unspecified formulation 4 completed Katiejoshua Falcon null, [place] [facility] & [place] 11/24/2024 10:00:11 zoster recombinant 5 completed Katie Falcon [place] [facility] & [place] 11/24/2024 10:01:26 pneumococcal, unspecified formulation 3 completed Katiejoshua Falcon [place] 11/24/2024 10:01:07 Influenza, split virus, quadrivalent, preservative 2 completed Danay barney [place] [facility] & [place] 01/25/2025 12:59:55 COVID-19, mRNA, LNP-S, PF, 30 mcg/0.3 mL dose 1 completed Danay barney [place] [facility] & [place] 01/25/2025 12:59:55 COVID-19, mRNA, LNP-S, PF, 30 mcg/0.3 mL dose 1 completed Danay Carey [place] [facility] [place] 01/25/2025 12:59:55 Pneumococcal conjugate PCV20, polysaccharide [id number] conjugate, adjuvant, PF 2 completed Danay [place] 01/25/2025 12:59:55 Influenza, split virus, trivalent, preservative 9 completed Danay [place] 01/25/2025 12:59:55 Influenza, split virus, quadrivalent, PF 3 completed Danay [place] 01/25/2025 12:59:55 Past Encounters Encounter ID Performer Location Encounter Start Date Encounter Closed Date Diagnosis/Indication Diagnosis SNOMED-CT Code Diagnosis ICD10 Code Diagnosis Note [id number] ABHILASH Kerr [facility] [address] [place] [address] [id number] 12/03/2022 14:14:46 12/05/2022 12:48:30 Dysphagia [id number] R13.10 Given recent history of dysphagia, recommend EGD at time of colonoscop y for further evaluation and dilatation if warranted. Pt is scheduled for EGD/Colon 01/14 @ 9:00 AM. Patient reminded to stop ozempic 2 weeks prior to scopes. [id number] Jordan Gil Jr, MD [facility] [address] [address] 03/06/2023 13:27:03 03/06/2023 15:14:33 Difficulty passing urine [id number] R39.198 52-year-ol d white female with multiple [...] if she has any worsening of symptoms. [id number] Kieran Anna MD [facility] [place] [address] [facility] [address] [place] [address] 03/16/2024 09:31:51 03/16/2024 10:12:15 History of sick sinus syndrome [id number] 95343 Z86.79 with [employer] pacemaker implant 08/12/22. normally functionin g, will follow up the interrogat ion. Cardiac pa cemaker in situ 571039475 Z95.0 [employer]. Essential hypertension 35383111 I10 controlled continue medication s Dyslipidemia 788330222 E 78.5 on statin follow up fasting lipid profile. Cigarette smoker 5067443 7 F17.210 strongly encouraged to quit and offered help. Sleep apnea 35398041 G47 .30 On CPAP Obesity 438356453 E66.9 BMi 45. recommend weight loss. [id number] Cornelio Cooper PA-C [facility] [facility] [address] [place] [address] 08/17/2024 10:07:21 08/17/2024 10:59:29 Gastroesophageal reflux disease without esophagitis 362919667 K21.9 -I have recommende d she change the timing of Pantoprazo le to 30 minutes before morning and evening meal.-Rx provided for famotidine to use as needed for breakthrou gh symptoms. Regurgitat ion of gastric content 25699283 R11.10 -Obtain gastric emptying study. Continue PPI. Nausea 165554711 R11.0 Chronic. Refill provided for ondansetro n-Obtain Gastric emptying study to evaluate for possible diabetic gastropare sis. Constipati on alternates with diarrhea 678375994 K59.00 More constipati on predominat e. Possible with overflow. Start laxative therapy per below. Chronic id iopathic constipation 62319206 K59.04 Previously refractory to Miralax and Senna. Start Linzess 145 mcg p.o. once daily. History of polyp of colon 340316967 Z86.0100 -Recommend surveillan ce colonoscop y 02/2028. Last exam was 02/[address] Hatfield with hyperplast ic polyp removed. She recalls a history of multiple polyps removed previous to this. History of diverticulitis 6024629200 24251 Z87.19 -Last episode was several years ago. Notes multiple episodes, previously hospitaliz ed at [facility].-High fiber diet recommende d.-Measure s to avoid constipati on discussed- Colonoscop y last year showed diverticul osis. [id number] Cornelio Cooper PA-C [facility] [facility] [address] [place] [address] 11/15/2024 12:34:01 11/15/2024 13:20:03 Chronic idiopathic constipation 65633881 K59.04 Previously refractory to Miralax and Senna. Start Linzess 145 mcg p.o. once daily.-I have provided her with a paper prescripti on due to her pharmacy not previously receiving the eScript.-S amples were provided in the office today (#8) Gastroesop hageal reflux disease without esophagitis 727744628 K21.9 Continue Pantoprazo le once daily and famotidine at bedtime. Symptoms are stable. Nausea 676642038 R11.0 Chronic. Continue ondansetro n, refill provided.- Gastric emptying study was normal 10/18/2024 . No findings on prior EGD to explain nausea.-Sy mptoms appear consistent with biliary dyskinesia . She reported unremarkab le GBUS and HIDA scan last year at [facility], however she noted experienci ng symptom reproducti on with administra tion of CCK.Will refer to general surgery for possible elective cholecyste ctomy. Will request imaging records from [facility]. History of polyp of colon 032933781 Z86.0100 -Recommend surveillan ce colonoscop y 02/2028. Last exam was 02/[address] Hatfield with hyperplast ic polyp removed. She recalls a history of multiple polyps removed previous to this. Biliary dyskinesia 2007 K82.8 [id number] Sakina Tran MD [facility] [address] [place] [address] 11/24/2024 09:48:00 11/24/2024 10:39:05 Biliary dyskinesia 560927312 K82.8 The patient seems to have symptomati [...] part of this patient's care. Cardiac abhilash jose in situ 407262222 Z95.0 Will obtain cardiac risk stratifica tion preoperati vely [id number] Sakina Tran MD [facility] [address] [place] [address] 12/27/2024 10:08:07 12/27/2024 10:55:07 Chronic cholecystitis with calculus 52129484 K80.10 stable postop. Patient does have a reaction to the Monocryl suture. We discussed that this should continue to improve with conservati ve management . She can use an over-the-c ounter antihistam ine as needed. She has no restrictio ns from a surgical standpoint . We discussed that the nausea should continue to improve with time. Skin react ion to suture material 439662984 T88.8XXA R23.9 [id number] Cornelio Cooper PA-C [facility] [facility] [address] [place] [address] 01/25/2025 12:45:40 01/25/2025 13:20:02 Chronic idiopathic constipation 03113541 K59.04 Continue Linzess 145 mcg once daily. Improved. Gastroesop hageal reflux disease without esophagitis 052004715 K21.9 -Not optimally controlled . Stop pantoprazo le. Start Dexlansopr azole 60 mg p.o. once daily. Nausea 011490344 R11.0 Resolved following recent cholecyste ctomy. GES was normal 10/18/24. History of polyp of colon 282271804 Z86.0100 -Repeat surveillan ce colonoscop y 12/2029. Dysphagia 35556014 R13.1 0 She describes both oropharyng eal and esophageal dysphagia symptoms. Empiric dilation performed in 2022 at [facility]. She is unclear if this was beneficial .-Obtain esophagram and MBS. Consider repeat EGD. [id number] Cornelio Cooper PA-C [facility] [address] [place] [address] 02/16/2025 11:06:53 02/16/2025 12:02:22 Dysphagia 75321263 R13.10 Empiric dilation performed in 2022 at [facility] was mildly helpful for a period of a few months.-MB S was overall unremarkab le.-We are awaiting her esophagram results. Consider repeat EGD with dilation. Chronic id iopathic constipation 71250596 K59.04 Hold Linzess 145 mcg. Start Motegrity 2 mg once daily. If she has refractory symptoms she may add the linzess in with the motegrity and monitor. Gastroesop hageal reflux disease without esophagitis 679111384 K21.9 -Not optimally controlled recently with pantoprazo le. She has just recent started Dexlansopr azole 60 mg p.o. once daily. Nausea 029962170 R11.0 Resolved following recent cholecyste ctomy. GES was normal 10/18/24. History of polyp of colon 523341765 Z86.0100 -Repeat surveillan ce colonoscop y 12/2029. Health Concerns Section Related Observation LastModified by Organization Detai ls LastModified Time None Recorded Concern Status LastModified by Organization Details LastModified Time None Recorded Advance Directives Directive N: Payers Insurance Date Sequence Insurance Name Policy Number Policy Victoria Covered Member ID Victoria Member ID Guarantor Name 02/16/2025 1 [employer]NA [facility] (MEDICAID HMO) Frannie Villalobos Nuñez [id number] Frannie Villalobos Nuñez 11/15/2024 2 [employer] Frannie Villalobos Nuñez [id number] Frannie Villalobos Nuñez 05/07/2024 1 [place] [id number] Frannie Nuñez [id number] Frannie Nuñez 11/15/2024 1 [place] [id number] Frannie Nuñez [id number] Frannie Nñuez Notes Date Note Type Note Provider Name [...] having a GBUS and HIDA scan at [facility] last year that she was told was normal. She tells me that she did experience quite a bit of nausea during the HIDA scan. Cornelio Cooper PA-C [address] [facility], [place], [address], [place] - [facility] - [place] & [place] 11/15/2024 13:28:38 11/24/2024 text/html 54-year-old misbah rabago referred for chronic nausea. 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 Denies chest pain or SOA Sakina Tran MD [address], [place], [address], [facility] - [facility] & [place] 11/24/2024 11:08:33 12/27/2024 text/html Two weeks status post robotic cholecystectomy. Pathology showed gallstones with chronic cholecystitis. She feels well overall, has some itching surrounding her incision sites. She has some mild nausea postprandially which is starting to improve. Sakina Tran MD [address], [place], [address], [facility] - [facility] & [place] 12/27/2024 11:41:25 01/25/2025 text/html CURRENT (01/25/25) : [...] recent addition of Linzess. Cornelio Cooper PA-C [address], [place], [address], [place] - [facility] & [place] 01/25/2025 22:00:35 02/16/2025 text/html PREVIOUS (01/25/25 ): [...] esophagram and modified barium swallow yesterday at [facility]. We do not have the results of these currently. I have contacted the speech therapist who performed her MBS and they indicated to me that the exam was overall unremarkable with the exception of some vallecular residue with larger bites. No aspiration was noted. We have contacted [facility] regarding her esophagram, but that has not yet been read by radiology.Regarding her constipation, we recently started Linzess, but she is now experiencing constipation for a few days consecutively, followed by periods of excessive diarrhea.Regarding GERD, she just started the Dexlansoprazole last week and has done well with this thus far. Cornelio Cooper PA-C [address], [place], [address], [facility] - [place] - [place] & [place] 02/16/2025 22:13:03 OBGyn Episode No OBEpisode recorded.
--- OUTSIDE RECORDS SUMMARY | 2025-03-08 16:01 | XMS_ITS | Continuity of Care Document ---
Author Organization [facility] & [place], [facility] Address [address] [facility] [address] [place] [address] Care Team Providers Care Model Artists' Name Role Phone NIECY HATFIELD Accounts Payable Accountant [phone] Assessment Encounter Date Assessment Date Assessment LastModified by Organization Details LastModified Time 01/25/2025 01/25/2025 54-year-old female with: [email or web address] Not available 01/25/2025 21:56:59 Plan of Treatment Reminders Order Date Submit Date Provider Last Modified By Organization Details Last Modified Time Details Appointments None recorded. Lab None recorded. Referral None recorded. Procedures None recorded. Surgeries None recorded. Imaging XR, esophagram 2024 025 [email or web address] [facility] Scheduling Department -New Scheduling Process, [address] [place] [address] [address] [place], [address], 5 14:11:12 [place], modified barium swallow study 2024 025 [email or web address] [facility] Scheduling Department -New Scheduling Process, [address] [place] [address] [address] [place], [address], 5 08:13:31 Medication Orders Linzess 145 mcg capsule 2024 025 LOLIS [place] [facility], [address] [facility] [address] [place], [id number], 5 12:46:42 dexlansopra zole 60 mg capsule,bip hase delayed release 2024 025 LOLIS Oneal [facility], [address] [facility] [address], [place], [phone], 15:18:34 Patient TargetsNo targets recorded. Patient InstructionsNo instructions recorded. Reason for Referral None Reported. Results Created Date Observation Date Name Description Value Unit Range Abnormal Flag Note LastModifiedBy Organization Detail LastModifiedTime 02/18/2002/15/2025 XR, esoph agram No observ ation record ed. [facility] [address], [place], [address], 02/17/2025 14:35:59 02/23/2002/15/2025 [place], modif ied shirley janette jolly study No observ ation record ed. [facility] [address], [place], [address], 02/22/2025 12:09:55 Result Notes None recorded. Problems Name Problem SNOMED Code Status Onset Date Resolution Date Notes Provider Name and Address Organization Details Recorded Time Gastroesophag eal reflux disease without esophagitis 925223277 Active 2023 Cornelio Cooper PA-C [address], [place], [address] , [place] - [facility] & [place] 10:33:08 Regurgitation of gastric content 43399734 Active 2023 Cornelio Cooper PA-C [address], [place], [address] , [place] - [facility] & [place] 4 10:33:35 Nausea 784073831 Active [address], [place], [address] , [place] - [facility] & [place] 4 10:33:43 Chronic idiopathic constipation 99071178 Active 2023 Cornelio Cooper PA-C [address], [place], [address] , [place] - [place] & [place] 4 10:35:21 Constipation alternates with diarrhea 869852538 Active 2023 Cornelio Cooper PA-C [address], [place], [address] , [place] [facility] & [place] 4 10:36:31 Biliary dyskinesia 290756203 Active [address], [place], [address] , [place] [facility] & [place] 5 13:26:10 Dysphagia 75181859 Active [address], [place], [address] , [place] [facility] & [place] 5 13:16:18 Diverticuliti s of intestine 308275928 Active [address], [place], [address] , [place] [facility] & [place] 5 15:57:22 Arthritis 5784876 Active 2022 Basia barney, [place] & [place] 3 14:48:04 Diabetes mellitus 68900644 Active 2022 Basia Palumbo null, [place] [facility] & [place] 3 14:48:08 Hypercholeste rolemia 29732430 Active 2022 Basia Palumbo null[place] & [place] 3 14:48:19 Fibromyalgia 392456859 Active 2022 Basia Palumbo null[place] & [place] 3 14:48:26 Irritable bowel syndrome 90918060 Active 2022 Basia Palumbo null[place] & [place] 3 14:48:30 Anemia 987094412 Active 2022 Tefanie Guanako null[place] & [place] 3 14:03:28 Hypertensive disorder 01759667 Active 2022 Britany Mujica null[place] & [place] 3 14:03:37 Cardiac pacemaker in situ 593124243 Active 2022 Britany Mujica null[place] & [place] 3 14:04:04 Anxiety 41805900 Active 2022 Britany Mujica null[place] & [place] 3 14:04:14 Asthma 893465005 Active 2022 Britany Mujica null[place] & [place] 3 14:04:20 Seizure 92963154 Active 2022 Britany Mujica null[place] & [place] 3 14:04:25 Problem Notes None recorded. Procedures Surgical History Date Name Laterality Status Provider Name and Address Organization Details Recorded Time 025 Colonoscopy completed Thompson Patel [place] & [place] 01/25/2025 12:58:03 025 cholecystectomy completed Katie Falcon [place] & [place] 12/27/2024 10:19:28 024 completed Danay Carey [place] & [place] 01/25/2025 12:59:25 024 Most Recent Bone Density completed Danay [place] & [place] 01/25/2025 12:59:25 024 Other completed Danay [place] & [place] 01/25/2025 12:59:43 024 Joint Replacement completed Danay [place] & [place] 01/25/2025 12:59:43 023 Cystoscopy-Female completed Jordan Gil Jr, MD [address] [place] [address], [address], [place], [address], [place] & [place] 03/06/2023 15:35:18 023 Date of Last Colonoscopy completed Danay [place] & [place] 01/25/2025 12:59:25 023 Other completed Danay [place] & [place] 01/25/2025 12:59:43 023 Pacemaker/Defibril lator completed Danay [place] & [place] 01/25/2025 12:59:43 023 Abdominal Surgery completed Danay [place] & [place] 01/25/2025 12:59:43 022 Cardiovascular Surgery completed Danay [place] & [place] 01/25/2025 12:59:43 020 total replacement of hip completed Basia NIEVES - [facility] - [place] & [place] 12/03/2022 15:14:14 020 Head or Neck Surgery completed Danay [place] & [place] 01/25/2025 12:59:43 020 Hip Surgery completed Danay [place] & [place] 01/25/2025 12:59:43 019 Joint Replacement completed Danay [place] & [place] 01/25/2025 12:59:43 019 Hip Surgery completed Danay [place] & [place] 01/25/2025 12:59:43 016 EGD/Endoscopy completed Basia Deepali NIEVES - [place] - [place] & [place] 12/03/2022 15:14:01 014 Colonoscopy completed Basia Deepali NIEVES - [facility] - [place] & [place] 12/03/2022 15:13:52 004 Date of Last Pap Smear completed Danay [place] & [place] 01/25/2025 12:59:25 975 Tonsillectomy/Jonathan oidectomy completed Danay LYNNE [facility] & [place] 01/25/2025 12:59:43 neck repair completed Britany LYNNE [facility] & [place] 03/06/2023 14:05:26 procedure on knee completed Britany LYNNE [facility] & [place] 03/06/2023 14:05:44 Total Hysterectomy completed Elroy LYNNE [facility] & [place] 03/06/2023 14:05:56 cardiac pacemaker procedure completed Britany LYNNE [facility] & [place] 03/06/2023 14:06:07 pain assessment completed Britany LYNNE [facility] & [place] 03/06/2023 14:06:20 Imaging Results None recorded. Procedure Notes None recorded. Medical Equipment None Reported. Allergies Allergen ID Allergen Name Allergen Category Reaction Reaction Severity Criticality Documentation Date Start Date Code Code System Note Provider Name and Address Organization Details Recorded Time 391000 meclizine medicatio n Not available Not available Not available 08/24/2023 6676 RxNorm Anabella [place]ETH Manzano [facility] & [place] 3 10:59:14 630868 Substance with sulfonami de structure and antibacte rial mechanism of action (substanc e) medicatio n nausea severe Not available 02/16/2025 21269 8003 SNOMED Vanda Romero Izquierdo [place] barney [facility] & [place] 5 11:56:11 89643 Benadryl medicatio n Not available Not available Not available 12/03/2022 12088 7 RxNorm Basia [place] Thompson [facility] & [place] 3 14:47:43 51895 tetanus and diphtheri a toxoids Not available Not available Not available Not available 12/03/2022 58195 UNK Basia [place] Thompson [facility] & [place] 3 14:47:55 10689 adhesive environme nt,medica tion Not available Not available Not available 03/06/2023 91318 UNK Britany Mujica [facility], [place] - [facility] - [place] & [place] 3 13:49:50 Medications Name Sig Start Date Stop Date Status Note LastModified by Organization Details LastModified Time clindamycin /mupirocin 100/20mg topical capsule (xylitol) [81206] MIX THE CONTENTS OF 1 CAPSULE WITH [...] Not Available No t Available 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 97 g 73 /min 72 /min 97 % 97 % 98.2 [degF] 142 mm[Hg] 80 mm[Hg] Danay NIEVES [facility] & [place] 13:00:07 Social History Question Answer Notes LastModified by Organizat ion Details LastModified Time Tobacco Smoking Status Current Every Day Smoker [place] Rodriguez [facility] & [place] 12/03/2022 15:13:21 Do You Have An Advance Directive? No [email or web address] Information not available 01/25/2025 Are You Blind Or Do You Have Difficulty Seeing? No [email or web address] Information not available 01/25/2025 What Was The Date Of Your Most Recent Tobacco Screening? 08/15/2024 [email or web address] Information not available 01/25/2025 Are You Passively Exposed To Smoke? No [email or web address] Information not available 01/25/2025 How Much Tobacco Do You Smoke? 1 PPW [email or web address] Information not available 01/25/2025 How Many Years Have You Smoked Tobacco? 31 [email or web address] Information not available 01/25/2025 Sex: Female Functional Status Question Answer Note LastModified by Organizat ion Details LastModified Time Do you use any illicit or recreational drugs? No [email or web address] Information not available 12/03/2022 What is your level of alcohol consumption? None [email or web address] Information not available 12/03/2022 Do you or have you ever used smokeless tobacco? Never used smokeless tobacco [email or web address] Information not available 01/25/2025 What is your exercise level? None [email or web address] Information not available 01/25/2025 Mental Status Question Answer Note LastModified by Organization D etails LastModified Time Do you feel stressed (tense, restless, nervous, or anxious, or unable to sleep at night)? [id number] [email or web address] Information not available 01/25/2025 Family History Relationship Description Onset Age of this Age Resolved Age Notes LastModified by Organization Details LastModified Time Mother Hypertensive disorder [email or web address] Not available 12/03 15:12:55 Father Coronary arterioscler osis [email or web address] Not available 2024 11:07:22 Father Hypertensive disorder [email or web address] Not available 03/2023 11:00:03 Father Heart disease [email or web address] Not available 03/2023 11:00:12 Brother Coronary arterioscler osis dec [email or web address] Not available 2024 11:07:22 Brother Diabetes mellitus [email or web address] Not available 2024 11:07:22 Paternal Grandmother Obesity [email or web address] Not available 10/24/2022 10:59:38 Maternal Grandfather Asthma [...] completed Katie [place] null, [place] [facility] & [place] 11/24/2024 10:00:11 zoster recombinant 5 completed Katie [place] [facility] & [place] 11/24/2024 10:01:26 pneumococcal, unspecified formulation 3 completed Katie [place] [facility] & [place] 11/24/2024 10:01:07 Influenza, split virus, quadrivalent, preservative 2 completed Danay [place] [facility] & [place] 01/25/2025 12:59:55 COVID-19, mRNA, LNP-S, PF, 30 mcg/0.3 mL dose 1 completed Danay [place] [facility] & [place] 01/25/2025 12:59:55 COVID-19, mRNA, LNP-S, PF, 30 mcg/0.3 mL dose 1 completed Danay [place] null, [place] - [facility] & [place] 01/25/2025 12:59:55 Pneumococcal conjugate PCV20, polysaccharide KPF178 conjugate, adjuvant, PF 2 completed Danay [place] [facility] & [place] 01/25/2025 12:59:55 Influenza, split virus, trivalent, preservative 9 completed Danay [place] [facility] & [place] 01/25/2025 12:59:55 Influenza, split virus, quadrivalent, PF 3 completed Danay Carey [facility], [place] [facility] [place] & [place] 01/25/2025 12:59:55 Past Encounters Encounter ID Performer Location Encounter Start Date Encounter Closed Date Diagnosis/Indication Diagnosis SNOMED-CT Code Diagnosis ICD10 Code Diagnosis Note [id number] Sakina Tran MD [facility] [address] [place] [address] 12/27/2024 10:08:07 12/27/2024 10:55:07 Chronic cholecystitis with calculus 66269056 K80.10 stable postop. Patient does have a reaction to the Monocryl suture. We discussed that this should continue to improve with conservati ve management . She can use an over-the-c ounter antihistam ine as needed. She has no restrictio ns from a surgical standpoint . We discussed that the nausea should continue to improve with time. Skin react ion to suture material 298867415 T88.8XXA R23.9 [id number] Cornelio Cooper PA-C [facility] [address] [facility] [address] [place] [address] 01/25/2025 12:45:40 01/25/2025 13:20:02 Chronic idiopathic constipation 49574944 K59.04 Continue Linzess 145 mcg once daily. Improved. Gastroesop hageal reflux disease without esophagitis 752196304 K21.9 -Not optimally controlled . Stop pantoprazo le. Start Dexlansopr azole 60 mg p.o. once daily. Nausea 542691966 R11.0 Resolved following recent cholecyste ctomy. GES was normal 10/18/24. History of polyp of colon 129773857 Z86.0100 -Repeat surveillan ce colonoscop y 12/2029. Dysphagia 72706990 R13.1 0 She describes both oropharyng eal and esophageal dysphagia symptoms. Empiric dilation performed in 2022 at [facility]. She is unclear if this was beneficial .-Obtain esophagram and MBS. Consider repeat EGD. Health Concerns Section Related Observation LastModified by Organization Detai ls LastModified Time None Recorded Concern Status LastModified by Organization Details LastModified Time None Recorded Payers Encounter Date Sequence Insurance Name Policy Number Policy Victoria Covered Member ID Victoria Member ID Guarantor Name 01/25/2025 1 [employer] [facility] (MEDICAID HMO) Frannie Nuñez [id number] Frannie Nuñez Notes Date Note Type Note [...] recent addition of Linzess. Cornelio Cooper PA-C [address] [facility], [place], [address], [facility] [place] - [place] & [place] 01/25/2025 22:00:35 OBGyn Episode No OBEpisode recorded.
[2025-03-08 16:13] LABS: Basophils # 0.1 K/mm3 (0-0.2); Basophils % 0.6 % (0.1-2.0); Eosinophils # 0.3 Kmm3 (0.0-0.4); Eosinophils % 2.2 % (0.1-12.0); Hematocrit 39.9 % (37.0-47.0); Hemoglobin 13.2 g/dL (12.2-16.2); Immature Granulocytes # 0.11 10^3uL; Immature Granulocytes % 0.9 %; Lymphocytes # 3.6 K/mm3 (0.7-4.5); Lymphocytes % 29.6 % (10-50); Mean Corpuscular HGB Conc 33.1 g/dL (31.8-35.4); Mean Corpuscular Hemoglobin 30.9 pg (27.0-31.2); Mean Corpuscular Volume 93.4 fl (81-99); Mean Platelet Volume 10.3 fl (7.4-10.4); Monocytes # 0.8 K/mm3 (0.1-1.0); Neutrophils # 7.2 K/mm3 (1.8-7.8); Neutrophils % 59.7 % (37.0-80.0); Nucleated Red Blood Cells # 0 10^3/uL; Nucleated Red Blood Cells % 0 %; Platelet Count 298 K/mm3 (142-424); Red Blood Count 4.27 M/mm3 (4.20-5.40); Red Cell Distribution Width 14.4 % (11.5-17.5); Red Cell Distribution Width-SD 49.1 fL
[2025-03-08] MEDS: ASPIRIN 325MG TABLET 325 MG PO (16:13)
[2025-03-08 16:14] LABS: Microscopic, Urine URINE MICROSCOPIC (MICROSCOPIC)
[2025-03-08] MEDS: ONDANSETRON 4MG/2ML VIAL 4 MG IV (16:14)
[2025-03-08] MEDS: MORPHINE 4MG/ML SYRINGE 4 MG IV (16:14)
[2025-03-08 16:15] LABS: Appearance,Urine CLEAR (Clear); Bilirubin,Urine Negative (Negative); Blood, Urine Negative (Negative); Color,Urine YELLOW (Yellow); Glucose,Urine (UA) Negative (Negative); Ketones,Urine Negative (Negative); Leukocyte Esterase,Urine Negative (Negative); Nitrate,Urine Negative (Negative); Protein,Urine Negative (Negative); Specific Gravity, Urine 1.015 (1.005-1.030); Urobilinogen,Urine 0.2 EU/dl (0.2)
[2025-03-08 16:20] LABS: Albumin Level 4.5 g/dl (3.5-5.0); Chloride 105 mmol/L (98-107); Potassium 3.7 mmoL/L (3.5-5.1); Sodium 137 mmol/L (136-145)
[2025-03-08 16:23] LABS: Alanine Aminotransferase 26 U/L (12-78); Albumin/Globulin Ratio 1.6 (1.1-1.8); Alkaline Phosphatase 157 U/L (38-126); Anion Gap 8.7 mEq/L (5-15); Aspartate Amino Transferase 25 U/L (14-36); Bilirubin,Total 0.4 mg/dl (0.2-1.3); Blood Urea Nitrogen 18 mg/dl (7-17); Calcium 9.4 mg/dl (8.4-10.2); Carbon Dioxide 27 mmol/L (22.0-30.0); Creatinine Clearance Estimated 63 mL/min (50-200); Estimated Glomerular Filt Rate 58 ml/min (>60); GFR (African American) 70 ML/MIN (>60); Globulin 2.8 g/dL (1.3-3.2); Glucose 142 mg/dl (74-100); Lipase 269 U/L (23-300); Total Protein,Serum 7.3 g/dl (6.3-8.2)
[2025-03-08 16:24] LABS: Magnesium 2.1 mg/dl (1.6-2.3)
[2025-03-08 16:29] LABS: INR 0.93 (0.9-1.1); Prothrombin Time 10.4 seconds (10.1-12.5)
[2025-03-08 16:33] LABS: NT Pro Brain Natriuretic Pep. < 20.0 pg/mL (0-125)
[2025-03-08 16:35] LABS: Troponin I < 0.01 ng/ml (0.00-0.034)
[2025-03-08 16:46] LABS: D-Dimer 0.75 ug/mL (0.0-0.5)
[2025-03-08 17:05] LABS: HIV Combo NEGATIVE (Negative)
[2025-03-08 17:13] LABS: Hepatitis C Ab Qual. W/ RFX NEGATIVE (Negative)
[2025-03-08 18:06] LABS: Bacteria,Urine 1+ /lpf
== END 2025-03-08 18:20 | disposition home or self-care (01) ==
PROVIDERS: Physician Assistant; Emergency Provider Emergency Medicine
DX: R07.89 Other chest pain (principal); R06.02 Shortness of breath; F17.210 Nicotine dependence, cigarettes, uncomplicated; E78.5 Hyperlipidemia, unspecified; I10 Essential (primary) hypertension; Z95.0 Presence of cardiac pacemaker
CPT/HCPCS: 71045; 80053; 81001; 83690; 83735; 83880; 84484; 85025; 85378; 85610; 86803; 87389; 93005; 96374; 96375; 99285; J2270; J2405

== ENCOUNTER 2025-03-28 14:32 | Day surgery (SDC) | payer OTHER, SELFPAY ==
[2025-03-28 14:45] VITALS: BP 150/77; PULSE 79; RESP 18; O2SAT 95; BMI 44.3
[2025-03-28] MEDS: BUPIVACAINE 0.25% 10ML INJ 25 MG IJ (14:50)
[2025-03-28] MEDS: DEXAMETHASONE 10MG/ML 1ML VIAL 10 MG (14:50)
[2025-03-28 14:51] VITALS: BP 150/77; PULSE 79; RESP 18; O2SAT 95
[2025-03-28 14:53] VITALS: BP 150/77; PULSE 79; RESP 18; O2SAT 95
[2025-03-28 14:55] VITALS: BP 138/81; PULSE 74; RESP 16; O2SAT 98
--- NOTE | 2025-03-28 15:00 | P.PCN_ITS ---
Procedure Date: 03/28/25 Time: 14:30 Anesthesiologist:: Kalyan Childress CRNA Complications:: None Pre-procedure Diagnosis:: Bilateral sacroiliitis Post-procedure Diagnosis:: Same Indications for Procedure:: Patient is a very pleasant 54-year-old female comes our clinic today for bilateral sacroiliac joint injections cortisone local anesthetic. Patient describes low lumbar back pain off the midline bilaterally. Bilateral posterior hip pain. Difficulty transitioning from sitting to standing. She reports responding very well to previous sacroiliac joint injections of cortisone. She rates her pain 7/10. Procedure Details:: Procedure: Bilateral sacroiliac joint injections under fluoroscopy Informed consent was obtained and the risks and benefits of the procedure were explained to the patient.~ The patient was taken to the procedure room and noninvasive monitors were placed including a noninvasive blood pressure cuff and pulse oximeter.~ The patient was placed prone on the procedure table. Both hips were cleansed using Betadine as a cleansing solution. C-arm fluoroscopy was used to view the right sacroiliac joint.~ The skin and subcutaneous tissues were anesthetized using lidocaine 1.5% and a 25-gauge needle.~ After this, a 22-gauge spinal needle was inserted under fluoroscopic guidance into the inferior aspect of the right sacroiliac joint.~ Omnipaque dye was injected and good spread was seen throughout the joint.~ After this, approximately 5 mL of bupivacaine, 0.25% and Depo-Medrol, 40 mg was incrementally injected into the right sacroiliac joint. We then moved to the left sacroiliac joint.~ The skin and subcutaneous tissues were anesthetized using lidocaine 1.5% and a 25-gauge needle.~ After this, a 22- gauge spinal needle was inserted under fluoroscopic guidance into the inferior aspect of the left sacroiliac joint.~ Omnipaque dye was injected and good spread was seen throughout the joint. After this, approximately 5 mL of bupivacaine, 0.25% and Depo-Medrol, 40 mg was incrementally injected into the left sacroiliac joint.~ The patient tolerated the procedure well with no complications. The patient was observed in the Pain Clinic and then was discharged home neurologically intact. Plan and Disposition:: Patient was discharged without incident.
== END 2025-03-28 14:55 | disposition home or self-care (01) ==
LOC: SC.PAINP 14:32
PROVIDERS: Visit Provider Nurse Anesthetist, Certified Registered
DX: M46.1 Sacroiliitis, not elsewhere classified (principal); G47.33 Obstructive sleep apnea (adult) (pediatric); I50.9 Heart failure, unspecified; I11.0 Hypertensive heart disease with heart failure; F41.9 Anxiety disorder, unspecified; J45.909 Unspecified asthma, uncomplicated; F32.A Depression, unspecified; E11.9 Type 2 diabetes mellitus without complications; E78.5 Hyperlipidemia, unspecified; R56.9 Unspecified convulsions; F17.210 Nicotine dependence, cigarettes, uncomplicated; Z95.0 Presence of cardiac pacemaker; Z90.710 Acquired absence of both cervix and uterus; Z90.49 Acquired absence of other specified parts of digestive tract; Z96.652 Presence of left artificial knee joint; Z96.643 Presence of artificial hip joint, bilateral; Z98.1 Arthrodesis status; Z88.1 Allergy status to other antibiotic agents; Z88.7 Allergy status to serum and vaccine; Z88.8 Allergy status to other drugs, medicaments and biological substances; Z79.899 Other long term (current) drug therapy
CPT/HCPCS: 27096; J0665; J1100

== ENCOUNTER 2025-04-03 16:59 | Emergency (ER) | payer OTHER, SELFPAY ==
--- OUTSIDE RECORDS SUMMARY | 2024-05-30 09:20 | XMS_ITS ---
Author Organization [facility] Address [address] [place] [address] Care Team Providers Care Buildings Painter Name Role Phone Ronaldo Kong Primary Care Provider Unavailabl Harpreet Pastrana Unavailable [phone] Jennie Royal Unavailable Unavailable Encounters Encounter Location Date Provider Diagnosis [address] [place] [address] 05/30/2024 Harpreet Castaneda Plan Of Treatment No Information Progress Notes * Frannie NUÑEZDOB:[birth year] (54 yo F)Acc No.[id number]:05/30/2024 Progress Note Patient: Frannie ZAVALA Provider: Denzel Castaneda MD :1970 A ge:53 Y S ex:Female Date:05/30/2024 Address:[address], [id number] Pcp:Ronaldo Kong Subjective: * Chief Complaints: * * Medical History: Objective: * Vitals: Assessment: Plan: * Treatment: * * Electronic signature of Cici Castaneda MD on 04/03/2025 at 04:11 PM CDT Sign off status: Pending * Provider: Denzel Castaneda MD Date: 05/30/2024 Generated for Charlottei ng/Faraineg/eTransmitting on: 04/03/2025 04:11 PM CDT
--- OUTSIDE RECORDS SUMMARY | 2024-05-30 09:20 | XMS_ITS ---
Author Organization [facility] da Care [facility] Address [address] [place] [address] Care Team Providers Care Warehouse Administrator Name Role Phone Harpreet Castaneda Unavailable [phone] Encounters Encounter Location Date Provider Diagnosis [facility] [address] [facility] [address] [place] [address] 05/30/2024 Harpreet Castaneda Plan Of Treatment Next Appt Details Provider Name:Harpreet Castaneda, 05/23/2025 10:40:00 AM, [address] [facility], [address], [place], [address], Progress Notes * Frannie NUÑEZDOB:[birth year] (54 yo F)Acc No.[id number]:05/30/2024 progress note Patient: Frannie ZAVALA Provider: Denzel Castaneda MD :1970 A ge:53 Y S ex:Female Date:05/30/2024 Address:[address], [id number] Subjective: * Chief Complaints: * * Medical History: Objective: * Vitals: Assessment: Plan: * Treatment: Care Plan: * Problems: * Billing Information: * Visit Code: * Procedure Codes: * Electronic signature of Cici Castaneda M.D. on 04/03/2025 at 05:11 PM EDT Sign off status: Pending * Provider: Denzel Castaneda MD Date: 0 05/30/2024 Generated for Cayla james/Linda/Reina on: 0 04/03/2025 05:11 PM EDT
--- OUTSIDE RECORDS SUMMARY | 2025-03-10 07:20 | XMS_ITS | Continuity of Care Document ---
Author Organization [facility] Phone Care Team Providers Care Industrial Engineer Name Role Phone STORMY NAIR Primary Attending [phone] STORMY NAIR Admitting HARRIET CALI Primary Care STORMY NAIR Unavailable ALLERGIES AND ADVERSE REACTIONS ALLERGIES AND ADVERSE REACTIONS Code System Allergy Substance Adverse Reaction Date Reaction (Severity) Comment Status Reported By Updated By [id number] RXNorm Diphenhydramine Adverse reaction to substance (Mild) pt active [id number] on April 23, 2024 7:56:36 PM UTC Tetanus Toxoids Adverse reaction to substance Not Specified active [id number] on April 23, 2024 7:56:36 PM [place] FAMILY HISTORY RELATION: Father Status: Cause of : Unknown Age at : Unknown SNOMED-CT Diagnosis Age At Onset [id number] Heart disease RELATION: Mother Status: LIVING SNOMED-CT Diagnosis Age At Onset [id number] Hypertensive disorder RESULTS Patient: RAI Villalobos Date of : [birth year] 3 LABORATORY RESULTS ORDER 200: CBC AUTO W DIFF ( LOINC: 32411-8) ORDER DATE: March 08, 2025 4:50:00 PM [place] Specimen Source: Whole Blood Specimen Type: Whole blood s ample PERFORMING LAB: [facility] [id number] Result Comment: Final Result Date: March 08, [...] 08, 2025 5:04:00 PM UTC (TECH: MRB) 52280-7 Hematocrit [Volume Fraction] of Blood N 37.9 % 36.0 % - 47.0 % March 08, 2025 5:04:00 PM UTC (TECH: MRB) 787-2 Erythrocyte mean corpuscular volume [Entitic volume] by Automated count N 94.0 fl 80 fl - 95 fl March 08, 2025 5:04:00 PM UTC (TECH: MRB) 44811-7 Erythrocyte mean corpuscular hemoglobin [Entitic mass] in Blood from [place]etus by Automated count N 31.5 pg 27.0 pg - 34.0 pg March 08, 2025 5:04:00 PM UTC (TECH: MRB) 66283-5 Erythrocyte mean corpuscular hemoglobin concentration [Mass/volume] in Blood from Fetus by Automated count N 33.5 g/dL 32.0 g/dL - 36.0 g/dL March 08, 2025 5:04:00 PM UTC (TECH: MRB) 62990-4 Platelets [#/volume] in Blood N 271 10^3/uL 150 10^3/uL - 450 10^3/uL March 08, 2025 5:04:00 PM UTC (TECH: MRB) 23298-9 Erythrocyte distribution width [Ratio] N 14.3 % 12.3 % - 15.1 % March 08, 2025 5:04:00 PM UTC (TECH: MRB) 97279-3 Platelet mean volume [Entitic volume] in Blood by Automated count N 9.9 fl 7.4 fl - 10.4 fl March 08, 2025 5:04:00 PM UTC (TECH: MRB) 13796-1 Granulocytes/100 leukocytes in Blood by Automated count [...] 08, 2025 5:04:00 PM UTC (TECH: MRB) 77437-0 Immature granulocytes [#/volume] in Blood N 0.6 % 0.0 % - 0.8 % March 08, 2025 5:04:00 PM UTC (TECH: MRB) 19030-5 Granulocytes [#/volume] in Blood by Automated count [...] 08, 2025 5:04:00 PM UTC (TECH: MRB) 10371-1 Immature granulocytes [#/volume] in Blood N 0.06 10^3/uL March 08, 2025 5:04:00 PM UTC (TECH: MRB) 37415-8 Manual differential performed [Presence] in Blood N NO March 08, 2025 5:04:00 PM UTC (TECH: MRB) ORDER 300: THYROID STIMULATI NG HORMONE (LOINC: 3016-3) ORDER DATE: March 08, 2025 4:50:00 PM UTC Specimen Source: Serum/Plasm a Specimen Type: Acellular blo od (serum or plasma) specimen PERFORMING LAB: [address] [id number] Result Comment: Final Result Date: March 08, 2025 5:33:00 PM UTC (TECH: HC) LOINC TEST FLAG RESULT REFERENCE RANGE UPDA JAYY BY 3016-3 Thyrotropin [Units/volume] in Serum or Plasma N 2.38 mIU/mL 0.34 mIU/mL - 4.80 mIU/mL March 08, 2025 5:33:00 PM UTC (TECH: HC) ORDER 500: COMP METABOLIC PA ABDIRIZAK (LOINC: 18844-9) ORDER DATE: March 08, 2025 4:50:00 PM UTC Specimen Source: Serum/Plasm a Specimen Type: Acellular blo od (serum or plasma) specimen PERFORMING LAB: [address] [id number] Result Comment: Final Result Date: March 08, [...] 08, 2025 5:33:00 PM UTC (TECH: HC) 2075-0 Chloride [Moles/volu me] in Serum or Plasma N 105 mmol/L 98 mmol/L - 107 mmol/L March 08, 2025 5:33:00 PM UTC (TECH: HC) 2027-9 Carbon dioxide, tota l [Moles/volume] in Serum or Plasma N 28 mmol/L 21 mmol/L - 32 mmol/L March 08, 2025 5:33:00 PM UTC (TECH: HC) 18392-9 Anion gap 3 in Serum or Plasma N 7.0 March 08, 2025 5:33:00 PM UTC (TECH: HC) 2345-7 Glucose [Mass/volume ] in Serum or [...] 08, 2025 5:33:00 PM UTC (TECH: HC) 88578-3 Glomerular filtratio n rate/1.73 sq M.predicted by Creatinine-based formula (MDRD) N 67 mL/min >60 March 08, 2025 5:33:00 PM [place] (TECH: HC) 78269-7 Osmolality of Serum or Plasma by calculated by sum of electrolytes N 295 mosm/kg 275 mosm/kg - 301 mosm/kg March 08, 2025 5:33:00 PM UTC (TECH: HC) 2885-2 Protein [Mass/volume ] in Serum or Plasma N 7.3 g/dL 6.4 g/dL - 8.2 g/dL March 08, 2025 5:33:00 PM UTC (TECH: HC) 1751-7 Albumin [Mass/volume ] in Serum or Plasma N 3.6 g/dL 3.4 g/dL - 5.0 g/dL March 08, 2025 5:33:00 PM UTC (TECH: HC) 90575-2 Calcium [Mass/volume ] in Serum or Plasma N 9.2 mg/dL 8.5 mg/dL - 10.1 mg/dL March 08, 2025 5:33:00 PM UTC (TECH: HC) 20781-7 Calcium [Mass/volume ] corrected for total protein in Serum or Plasma N 9.5 mg/dL 8.5 mg/dL - 10.1 mg/dL March 08, 2025 5:33:00 PM UT (TECH: HC) 1975-2 Bilirubin.total [Mass/volume] in Serum or Plasma L 0.3 mg/dL 0.4 mg/dL - 1.5 mg/dL March 08, 2025 5:33:00 PM UTC (TECH: HC) 1920-8 Aspartate aminotransferase [Enzymatic activity/volume] in Serum or Plasma L 13 U/L 15 U/L - 37 U/L March 08, 2025 5:33:00 PM UTC (TECH: HC) 1742-6 Alanine aminotransferase [Enzymatic activity/volume] in Serum or Plasma N 27 U/L 12 U/L - 78 U/L March 08, 2025 5:33:00 PM UT (TECH: HC) 6768-6 Alkaline phosphatase [Enzymatic activity/volume] in Serum or Plasma H 155 U/L 50 U/L - 120 U/L March 08, 2025 5:33:00 PM UT (TECH: HC) ORDER 600: LIPID PANEL (LOIN C: 21054-3) ORDER DATE: March 08, 2025 4:50:00 PM UT Specimen Source: Serum/Plasm a Specimen Type: Acellular blo od (serum or plasma) specimen PERFORMING LAB: [address] [id number] Result Comment: Final Result Date: March 08, 2025 5:33:00 PM UT (TECH: HC) LOINC TEST FLAG RESULT REFERENCE RANGE UPDA JAYY BY 2571-8 Triglyceride [Mass/volume] in Serum or Plasma N 143 mg/dL 20 mg/dL - 200 mg/dL March 08, 2025 5:33:00 PM UT (TECH: HC) 2093-3 Cholesterol [Mass/volume] in Serum or Plasma N 145 mg/dL 0 mg/dL - 200 mg/dL March 08, 2025 5:33:00 PM UT (TECH: HC) 2085-9 Cholesterol in HDL [Mass/volume] in Serum or Plasma L 44 mg/dL 60 mg/dL March 08, 2025 5:33:00 PM [place] (TECH: HC) 85861-1 Cholesterol in LDL [Mass/volume] in Serum or Plasma by calculation L 72 mg/dL 100 mg/dL March 08, 2025 5:33:00 PM UTC (TECH: HC) 2095-8 Cholesterol in HDL/Cholesterol.tota l [Mass Ratio] in Serum or Plasma N 3 - 5 March 08, 2025 5:33:00 PM UTC (TECH: HC) ORDER 700: TROPONIN QUANT (L OINC: 29516-4) ORDER DATE: March 08, 2025 4:50:00 PM UTC Specimen Source: Plasma Specimen Type: Plasma specim en PERFORMING LAB: [address] [id number] Result Comment: Final Result Date: March 08, 2025 5:27:00 PM UTC (TECH: HC) LOINC TEST [place] [address]-6 Troponin I.cardiac panel - Serum or Plasma by High sensitivity method N 7 ng/L 0 ng/L - 51 ng/L March 08, 2025 5:27:00 PM UTC (TECH: HC) ORDER 800: AMYLASE (LOINC: 1 798-8) ORDER DATE: March 08, 2025 4:50:00 PM UTC Specimen Source: Serum/Plasm a Specimen Type: Acellular blo od (serum or plasma) specimen PERFORMING LAB: [address] [id number] Result Comment: Final Result Date: March 08, 2025 5:14:00 PM UTC (TECH: MRB) LOINC TEST FLAG RESULT REFERENCE RANGE UPDA JAYY BY 1798-8 Amylase [Enzymatic activity/volume] in Serum or Plasma N 62 U/L 25 U/L - 115 U/L March 08, 2025 5:14:00 PM UTC (TECH: MRB) ORDER 900: LIPASE (LOINC: 30 40-3) ORDER DATE: March 08, 2025 4:50:00 PM UTC Specimen Source: Serum/Plasm a Specimen Type: Acellular blo od (serum or plasma) specimen PERFORMING LAB: [address] [id number] Result Comment: Final Result Date: March 08, 2025 5:14:00 PM UTC (TECH: MRB) LOINC TEST FLAG RESULT REFERENCE RANGE UPDA JAYY BY 3040-3 Lipase [Enzymatic activity/volume] in Serum or Plasma N 67 U/L 16 U/L - 77 U/L March 08, 2025 5:1 4:00 PM [facility] (TECH: MRB) LABORATORY NARRATIVE RESULTS Information [...] Description Effective Dates Offered Cessation Comment UpdatedBy [id number] Historical Tobacco smoking status Current Every Day Smoker [id number] on April 23, 2024 8:50:19 PM [facility] [id number] Historical Tobacco smoking status Never Smoked [id number] on February 26, 2023 8:24:02 PM [facility] [id number] Historical Tobacco smoking status Unknown If Ever Smoked [id number] on July 25, 2013 11:27:36 PM [facility] SOCIAL HISTORY - Gender Sex: Female [...] R07.2 Admission March 08, 2025 4:40:[address] [id number] Discharge March 08, 2025 4:40:00 PM [facility] DISC HARGED TO HOME OR SELF CARE ENCOUNTER DIAGNOSES Notes information is not william ilable. Code System Diagnosis Onset Date Diagnosis information is not available. 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 Role on Team Status Start Date End Date Update d By KARELY WEATHERS PCP normal March 08 4:00:00 AM [facility] March 08, 2025 4:40:00 PM [facility] [id number] on March 08, 2025 4:42:14 PM [facility] KOREY CARLIN MD Referring normal March 08, 2025 4:00:00 AM [facility] March 08, 2025 4:40:00 PM [facility] [id number] on March 08, 2025 4:42:14 PM [facility] KOREY CARLIN MD Attending normal March 08, 2025 4:00:00 AM [facility] March 08, 2025 4:40:00 PM [facility] [id number] on March 08, 2025 4:42:14 PM [facility] KOREY CARLIN MD Admitting normal March 08, 2025 4:00:00 AM [facility] March 08, 2025 4:40:00 PM [facility] [id number] on March 08, 2025 4:42:14 PM [facility]
--- NOTE | 2025-04-03 17:02 | HMH.EDGENADL ---
Discharge Plan Disposition Patient Disposition: Home, Self-Care Condition: Good Prescriptions Prescriptions: No Action albuterol sulfate [ProAir HFA] 90 mcg/actuation HFA aerosol inhaler 2 inh INHALATION DIRECTED cyanocobalamin (vitamin B-12) 1,000 mcg/mL solution 1,000 mcg IM MONTHLY tizanidine [Zanaflex] 4 mg tablet 4 mg PO TID minocycline 100 mg capsule 100 mg PO DAILY methocarbamol 750 mg tablet 750 mg PO TID Qty: 90 0RF prednisone 20 mg tablet 20 mg PO BID Qty: 10 0RF spironolactone 25 MG tablet 25 mg PO DAILY atorvastatin 80 MG tablet 80 mg PO HS carvedilol 6.25 MG tablet 12.5 mg PO BID venlafaxine 75 MG capsule,extended release 24hr 225 mg PO DAILY hydroxyzine pamoate 50 MG capsule 50 mg PO TID PRN (Reason: Anxiety) lamotrigine 25 MG tablet 25 mg PO TID zonisamide 100 MG capsule 100 mg PO TID ropinirole 0.25 MG tablet 2 mg PO HS pantoprazole 40 MG tablet,delayed release (DR/EC) 40 mg PO DAILY promethazine 25 MG tablet 25 mg PO Q6H PRN (Reason: Nausea And Vomiting) ergocalciferol (vitamin D2) 50,000 UNIT capsule 1 tab PO WEEKLY aripiprazole 10 MG tablet 5 mg PO DAILY levothyroxine 88 MCG capsule 88 mcg PO DAILY methocarbamol 500 MG tablet 500 mg PO Q8HP PRN (Reason: Muscle Spasm) Qty: 30 0RF mirtazapine [Remeron] 15 mg Tablet 15 mg PO HS cyclobenzaprine 10 mg Tablet 10 mg PO BID PRN (Reason: Muscle Spasm) Qty: 20 0RF morphine (PF) 1 mg/mL Solution 0.1 mg continuous intrathecal infusion CONT baclofen 10 mg Tablet 10 mg PO QID Qty: 120 2RF Referrals Follow up/Referrals: Lindsey Guardado APRN [Primary Care Provider, Medical] - See instructions Activity Restrictions/Add. Instructions Additional Instructions/Restrictions: Close continue with your migraine regimen. If you have persistent new or worsening signs or symptoms follow-up with your PCP or return to the ER as needed. Clinical Impressions Clinical Impression: Headache, migraine Qualifiers: Migraine type: migraine (< 15 days per month) without aura Status migrainosus presence: without status migrainosus Intractability: not intractable Qualified Code(s): G43.009 - Migraine without aura, not intractable, without status migrainosus Print Language Print Language: Latvian Discharge ED Provider: Jassi Hui General Adult HPI <JOSE Mahajan - Last Filed: 04/03/25 18:50> General Chief complaint: Headache Stated complaint: Migraine with nausea Time Seen by Provider: 04/03/25 17:02 History of Present Illness HPI narrative: Patient presents for evaluation of a migraine headache. Patient has a longstanding history of migraine headaches and is on a monthly preventative as well as a as needed abortive medication. She reports that around 11 AM this morning she began having a routine migraine headache. She took her abortive medication that did not help. It is continued to progress with photophobia and phonophobia. She denies any focal neurologic deficits any aura no fever chills chest pain shortness of breath hemoptysis hematochezia melena hematemesis cervical tenderness or neck pain. Month Related Data Home Medications ?Medication ?Instructions ?Recorded ?Confirmed aripiprazole 10 mg tablet 5 mg PO DAILY Depression 05/25/21 03/28/25 atorvastatin 80 mg tablet 80 mg PO HS Cholesterol 05/25/21 03/28/25 carvedilol 6.25 mg tablet 12.5 mg PO BID blood pressure 05/25/21 03/28/25 ergocalciferol (vitamin D2) 1,250 1 tab PO WEEKLY Supplement 05/25/21 03/28/25 mcg (50,000 unit) capsule hydroxyzine pamoate 50 mg capsule 50 mg PO TID PRN Anxiety 05/25/21 03/28/25 lamotrigine 25 mg tablet 25 mg PO TID seizures 05/25/21 03/28/25 levothyroxine 88 mcg capsule 88 mcg PO DAILY . 05/25/21 03/28/25 pantoprazole 40 mg tablet,delayed 40 mg PO DAILY GERD 05/25/21 03/28/25 release promethazine 25 mg tablet 25 mg PO Q6H PRN Nausea And 05/25/21 03/28/25 Vomiting ropinirole 0.25 mg tablet 2 mg PO HS RLS 05/25/21 03/28/25 venlafaxine 75 mg capsule,extended 225 mg PO DAILY Depression 05/25/21 03/28/25 release 24 hr zonisamide 100 mg capsule 100 mg PO TID migraines/seizures 05/25/21 03/28/25 albuterol sulfate 90 mcg/actuation 2 inh INHALATION DIRECTED . 05/27/21 03/28/25 aerosol inhaler (ProAir HFA) cyanocobalamin (vitamin B-12) 1,000 mcg IM MONTHLY suppliment 05/27/21 03/28/25 1,000 mcg/mL injection solution spironolactone 25 mg tablet 25 mg PO DAILY Fluid 06/07/21 03/28/25 mirtazapine 15 mg tablet (Remeron) 15 mg PO HS sleep 10/21/22 03/28/25 tizanidine 4 mg tablet (Zanaflex) 4 mg PO TID MUSCLES 12/12/22 03/28/25 minocycline 100 mg capsule 100 mg PO DAILY Skin condition 02/13/23 03/28/25 morphine (PF) 1 mg/mL injection 0.1 mg continuous intrathecal 02/20/23 03/28/25 solution infusion CONT Pain Previous Rx's ?Medication ?Instructions ?Recorded methocarbamol 500 mg tablet 500 mg PO Q8HP PRN Muscle Spasm 06/02/22 #30 tabs cyclobenzaprine 10 mg tablet 10 mg PO BID PRN Muscle Spasm #20 11/11/22 tabs baclofen 10 mg tablet 10 mg PO QID Pain #120 tabs 08/10/24 methocarbamol 750 mg tablet 750 mg PO TID #90 tabs 02/27/25 prednisone 20 mg tablet 20 mg PO BID #10 tabs 02/27/25 Allergies Allergy/AdvReac Type Severity Reaction Status Date / Time meclizine Allergy Intermediate Unknown Verified 01/27/25 09:19 allergy reaction doxycycline Allergy Mild Vomiting Verified 01/27/25 09:19 diphenhydramine (From Allergy Unknown Unknown Verified 01/27/25 09:19 BENADRYL) allergy reaction Tetanus Vaccines and Toxoid Allergy Unknown Unknown Verified 01/27/25 09:19 (TETANUS VACCINES & TOXOID) allergy reaction adhesive tape Allergy Rash Verified 01/27/25 09:19 [facility] <JOSE Mahajan - Last Filed: 04/03/25 18:50> [facility] Disclaimer: The information contained in this section may have been updated after the patient was seen, as this information can be updated by other users. Medical History (Updated 04/03/25 @ 17:47 by JOSE Mahajan) Knee arthropathy Hip replacement planned Pacemaker Pain of intrathecal infusion pump pocket after insertion Seizure disorder Sleep apnea Seizure HLD (hyperlipidemia) HTN (hypertension) Hx of cardiac pacemaker Diabetes mellitus, type 2 Anxiety Depression Asthma Congestive heart failure Dizziness Surgical History History of cholecystectomy History of spinal fusion History of hysterectomy History of right hip replacement History of left hip replacement History of knee replacement Family History Other Family history of diabetes mellitus type II Family history of hyperlipidemia Family history of hypertension Family history of myocardial infarction Social History Smoking Status: Current every day smoker tobacco type: cigarettes packs per day: 1 years smoked: 30 alcohol intake: never substance use type: denies use current occupational status: other Travel in the last 8 weeks?: None household members: none housing: house lives independently: Yes marital status: single education level: high school current occupational exposures/hazards: No caffeine: Yes special lai needs: No agree to transfusion: No do you feel safe at home: Yes victim of physical abuse: No victim of emotional abuse: No victim of sexual abuse: No would you like helpful sources: No Have you lived/traveled outside [place] in past 30 days?: No Contact w/someone who lives/traveled outside US past 30 days?: No Exposure to someone with infectious disease in past 14 days?: No Do you have a fever (greater than 100.4 F or 38 C)?: No Have you tested positive for COVID-19?: No Exposed to someone with COVID-19 in past 14 days?: No Do you have a sore throat?: No Do you have a cough?: No Do you have any weakness?: No Do you have any diarrhea?: No Are you experiencing any unusual bleeding?: No Do you have any muscle aches/pain?: No Do you have any abdominal pain?: No Are you experiencing loss of taste or smell?: No Other Medical History Have you received the Flu Vaccine for this season: No Have you received the Pneumonia Vaccine: No <JOSE Mahajan - Last Filed: 04/03/25 18:50> ROS Obtained: Yes Systems reviewed as appropriate & no additional complaints except as documented Physical Exam <JOSE Mahajan - Last Filed: 04/03/25 18:50> General General appearance: alert Respiratory Respiratory exam: Present normal lung sounds bilaterally Cardiovascular Cardiovascular exam: Present regular rate Neurological Exam Neurological exam: Present alert, oriented X3, CN II-XII intact and normal gait; Absent motor sensory deficit Skin Skin exam: Present normal color Medical Decision Making <JOSE Mahajan - Last Filed: 04/03/25 18:50> Medical Records Medical records reviewed: Yes I reviewed the patient's medical records. Screening: Per USPSTF and CDC recommendations, given the prevalence of disease in our region, it is our hospital?s policy to screen for HIV and viral Hepatitis for all patients aged 18 and over and those with ongoing risk factors. Husam Inquiry Pt receiving controlled substance: No Vital Signs: 04/03/25 17:08 04/03/25 17:31 04/03/25 17:48 Temperature 98.1 F 98.1 F Temperature Source Oral Pulse Rate 77 82 Pulse Rate [Right] 82 Respiratory Rate 17 17 Blood Pressure 133/77 143/86 H Blood Pressure [Right Arm] 143/86 H Blood Pressure Mean [Right Arm] 105 Blood Pressure Source [Right Arm] Automatic Cuff Blood Pressure Position [Right Arm] Supine 02 Sat by Pulse Oximetry 99 97 Oxygen Delivery Method Room Air Orders (Tests/Meds): ED MEDICATIONS Discontinued Medications Generic Name Dose Route Start Last Admin Trade Name Fannie PRN Reason Stop Dose Admin Acetaminophen 1,000 mg 04/03/25 17:07 04/03/25 17:21 Acetaminophen 500mg Tab PO 04/03/25 17:08 1,000 mg ONCE ONE Administration Dexamethasone Sodium Phosphate 10 mg 04/03/25 17:07 04/03/25 17:22 Dexamethasone 4mg/Ml 5ml Mdv IV 04/03/25 17:08 10 mg ONCE ONE Administration Magnesium Sulfate 2 gm in 50 mls @ 50 mls/hr 04/03/25 17:07 04/03/25 17:21 Magnesium Sulfate 2gm/50ml Premix IV 04/03/25 18:06 50 mls/hr ONCE ONE Administration Ketorolac Tromethamine 15 mg 04/03/25 17:07 04/03/25 17:23 Ketorolac 30mg/Ml Vial IV 04/03/25 17:08 15 mg ONCE ONE Administration Methocarbamol 500 mg 04/03/25 17:07 04/03/25 17:21 Methocarbamol 500mg Tablet PO 04/03/25 17:08 500 mg ONCE ONE Administration Prochlorperazine Edisylate 10 mg 04/03/25 17:07 04/03/25 17:27 Prochlorperazine 10mg/2ml Vial IV 04/03/25 17:08 10 mg ONCE ONE Administration Medical Decision Narrative: In summary patient is a 54-year-old female who presents to the emergency department for evaluation of migraine headache. Patient is hemodynamically stable with a blood pressure 146 pulse 82 sinus rhythm on the bedside monitor breathing 17 times minute satting at 99% on room air upon arrival, afebrile at 90.1. Physical exam is remarkable for Ann-Marie Coma Score 15, patient is awake alert and oriented person place and circumstance, cranial nerves II through XII intact grossly to exam, pupils equal round reactive to light, neck is supple with no cervical tenderness or nuchal rigidity or meningeal signs and patient has full range of motion of her C-spine without pain, breath sounds clear and equal bilateral to the bases with adventitious sounds, patient is amatory emergency department has no focal neurologic deficits.. Differential diagnosis includes migraine versus infection versus stroke or space-occupying lesion however patient has no red flags to suggest that this is anything other than her aforementioned migraine and she has no unusual symptoms that she has not experienced before so alternative diagnoses were not pursued. Initial workup was considered with labs and imaging however after shared decision-making discussion with the patient regarding her symptoms patient did not feel that this was anything unusual than a bad migraine that did not respond to her medications which she has infrequently now and did not want to pursue any advanced imaging or laboratory work unless treatment failed. Given that she has no red flags I felt that was a reasonable option so we will attempt to medicate her headache with a migraine cocktail and measure her response. Migraine cocktail will be IV fluids Tylenol Compazine Decadron Robaxin. Upon reassessment after medication patient reports that her headache has diminished to almost gone and she feels comfortable and safe going home with close follow-up with her PCP for any persistent new or worsening signs or symptoms or return to the ER as needed. <Jassi Hui MD - Last Filed: 04/03/25 19:59> Vital Signs: 04/03/25 17:08 04/03/25 17:31 04/03/25 17:48 Temperature 98.1 F 98.1 F Temperature Source Oral Pulse Rate 77 82 Pulse Rate [Right] 82 Respiratory Rate 17 17 Blood Pressure 133/77 143/86 H Blood Pressure [Right Arm] 143/86 H Blood Pressure Mean [Right Arm] 105 Blood Pressure Source [Right Arm] Automatic Cuff Blood Pressure Position [Right Arm] Supine 02 Sat by Pulse Oximetry 99 97 Oxygen Delivery Method Room Air Orders (Tests/Meds): ED MEDICATIONS Discontinued Medications Generic Name Dose Route Start Last Admin Trade Name Fannie PRN Reason Stop Dose Admin Acetaminophen 1,000 mg 04/03/25 17:07 04/03/25 17:21 Acetaminophen 500mg Tab PO 04/03/25 17:08 1,000 mg ONCE ONE Administration Dexamethasone Sodium Phosphate 10 mg 04/03/25 17:07 04/03/25 17:22 Dexamethasone 4mg/Ml 5ml Mdv IV 04/03/25 17:08 10 mg ONCE ONE Administration Magnesium Sulfate 2 gm in 50 mls @ 50 mls/hr 04/03/25 17:07 04/03/25 17:21 Magnesium Sulfate 2gm/50ml Premix IV 04/03/25 18:06 50 mls/hr ONCE ONE Administration Ketorolac Tromethamine 15 mg 04/03/25 17:07 04/03/25 17:23 Ketorolac 30mg/Ml Vial IV 04/03/25 17:08 15 mg ONCE ONE Administration Methocarbamol 500 mg 04/03/25 17:07 04/03/25 17:21 Methocarbamol 500mg Tablet PO 04/03/25 17:08 500 mg ONCE ONE Administration Prochlorperazine Edisylate 10 mg 04/03/25 17:07 04/03/25 17:27 Prochlorperazine 10mg/2ml Vial IV 04/03/25 17:08 10 mg ONCE ONE Administration Medical Decision Narrative: In summary patient is a 54-year-old female who presents to the emergency department for evaluation of migraine headache. Patient is hemodynamically stable with a blood pressure 146 pulse 82 sinus rhythm on the bedside monitor breathing 17 times minute satting at 99% on room air upon arrival, afebrile at 90.1. Physical exam is remarkable for Ann-Marie Coma Score 15, patient is awake alert and oriented person place and circumstance, cranial nerves II through XII intact grossly to exam, pupils equal round reactive to light, neck is supple with no cervical tenderness or nuchal rigidity or meningeal signs and patient has full range of motion of her C-spine without pain, breath sounds clear and equal bilateral to the bases with adventitious sounds, patient is amatory emergency department has no focal neurologic deficits.. Differential diagnosis includes migraine versus infection versus stroke or space-occupying lesion however patient has no red flags to suggest that this is anything other than her aforementioned migraine and she has no unusual symptoms that she has not experienced before so alternative diagnoses were not pursued. Initial workup was considered with labs and imaging however after shared decision-making discussion with the patient regarding her symptoms patient did not feel that this was anything unusual than a bad migraine that did not respond to her medications which she has infrequently now and did not want to pursue any advanced imaging or laboratory work unless treatment failed. Given that she has no red flags I felt that was a reasonable option so we will attempt to medicate her headache with a migraine cocktail and measure her response. Migraine cocktail will be IV fluids Tylenol Compazine Decadron Robaxin. Upon reassessment after medication patient reports that her headache has diminished to almost gone and she feels comfortable and safe going home with close follow-up with her PCP for any persistent new or worsening signs or symptoms or return to the ER as needed. I was consulted by the THADDEUS, and we discussed the complexity of the problems being addressed. I approved the treatment and management plan for this patient's care in the Emergency Department, thus performing a substantive portion of the medical decision making. Jassi Hui MD Critical Care <JOSE Mahajan - Last Filed: 04/03/25 18:50> Critical Care Time Critical Care Time: No
[2025-04-03 17:08] VITALS: BP 143/86; PULSE 82; RESP 17; TEMP 36.7; O2SAT 99; BMI 44.3
--- OUTSIDE RECORDS SUMMARY | 2025-04-03 17:10 | XMS_ITS | Patient Health Record ---
Author Organization [facility] 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 Name Role Phone Ronaldo Kong Primary Care Provider UnavailHarpreet Santoyo Unavailable [phone] Jennie Royal Unavailable Unavailable Allergies Allergen (clinical drug ingredient) Drug/Non Drug Allergy documented on EMR Reaction Allergy Type Onset Date Status diphenhydramine Benadryl Unknown Drug Allergy A ctive meclizine Meclizine anxiety/ nerve pain Drug Allergy Active tetanus immune globulin Tetanus Immune Globulin Unknown Drug Allergy Active Reason For Referral No Information Medications Medication SIG (Take, Route, Frequency, Duration) Notes Start Date End Date Status Atorvastatin Calcium 80 MG 1 tablet Oral ly Once a day for 30 day(s) Active Nurtec 75 MG 1 tablet on the tongue and allow to dissolve Orally for 30 day(s) Active Spironolactone 50 MG 1 tablet Orally Onc e a day Active ARIPiprazole 5 MG 1 tablet Orally Once a day Active Potassium Chloride ER 20 MEQ 1 tablet wi th food Orally Twice a day for 2 days 12/01/2022 Active Emgality 120 MG/ML 1 ml Subcutaneous for 30 day(s) Active rOPINIRole HCl 2 MG 2 tablet 1 to 3 hours before bedtime Orally Once a day Active hydroCHLOROthiazide 25 MG 1 tablet in th e morning Orally Once a day for 30 day(s) Active Zonisamide 100 MG 1 capsule Orally Three times daily Active Remeron 15 MG 1 tablet at bedtime Orally Once a day for 30 day(s) Active Carvedilol 12.5 MG 1 tablet with food Orally Twice a day Active ZyrTEC Allergy 10 MG 1 tablet Orally Onc e a day for 30 day(s) Active lamoTRIgine 25 MG 3 tablet Once a day Active Venlafaxine HCl ER 150 MG 1 capsule with food Orally Once a day for 30 day(s) Active Pantoprazole Sodium 40 MG 1 tablet Orall y Twice daily Active buPROPion HCl ER (Smoking Det) 150 MG 1 tablet in the morning Orally Once a day for 30 day(s) Active Levothyroxine Sodium 88 MCG 1 tablet in the morning on an empty stomach Orally Once a day for 30 day(s) Active Albuterol Sulfate HFA 108 (90 Base) MCG/ACT 1 puff as needed Inhalation every 4 hrs Not-Taking Baclofen 10 MG 1 tablet Orally four times a day Active hydrOXYzine HCl 50 MG 1 tablet as needed Orally three times daily Active Social History Tobacco Use: Social History Observation Description Date Details (start date - stop date) Current Smoker NA - NA Tobacco Use/Smoking Question Answer Notes Status: current smoker How often do you smoke cigarettes? every day How many cigarettes a day do you smoke? 11-20 How soon after you wake up do you smoke your fir st cigarette? within 5 minutes Are you interested in quitting? Not ready to tosin t Alcohol Screen (Audit-C) Question Answer Notes Did you have a drink containing alcohol in the p ast year? 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 Problem Type 2 diabetes mellitus (96074475) Type 2 diabetes mellitus (E11.9) Active confirmed Problem Hypertension (83897977) HTN (hypertension) (I10) Active confirmed Problem Morbid obesity (321471668) Morbid obesity (E66.01) Active confirmed Problem Obstructive sleep apnea syndrome (47819423) BRENDA (obstructive sleep apnea) (G47.33) Active confirmed Problem Obese (347035476) Obese (E66.9) Active confirmed Problem Brain tumor (248044286) Brain tumor (D49.6) Active confirmed Problem Chronic kidney disease stage 2 (272164660) Chronic kidney disease (CKD) stage G2/A1, mildly decreased glomerular filtration rate (GFR) between 60-89 mL/min/1.73 square meter and albuminuria creatinine ratio less than 30 mg/g (N18.2) Active confirmed Problem Obstructive sleep apnea syndrome (09871470) BRENDA (obstructive sleep apnea) (G47.33) Active confirmed Plan Of Treatment Pending Test Test Name Order Date CBC WITH DIFF 06/01/2023 CBC WITH DIFF 11/30/2023 IRON, TIBC AND FERRITIN PANEL 11/30/2023 IRON, TIBC AND FERRITIN PANEL 07/29/2022 CMP14+eGFR 07/29/2022 CMP14+eGFR 12/01/2022 CMP14+eGFR 11/30/2023 CMP14+eGFR 08/01/2021 URINALYSIS COMPLETE 08/01/2021 URINALYSIS COMPLETE 05/30/2021 URINALYSIS COMPLETE 11/30/2023 URINALYSIS COMPLETE 06/01/2023 CBC W AUTOMATED DIFFERENTIAL 08/01/2021 CBC W AUTOMATED DIFFERENTIAL 07/29/2022 CBC W AUTOMATED DIFFERENTIAL 12/01/2022 CBC W AUTOMATED DIFFERENTIAL 05/30/2021 HGB A1C (GLYCOHEMOGLOBIN) 12/01/2022 HGB A1C (GLYCOHEMOGLOBIN) 11/30/2023 BMP 06/01/2023 BMP 05/30/2021 Future Test Test Name Order Date Urinalysis, Complete 07/29/2022 .Renal Function Panel 07/29/2022 HGB & HCT 07/29/2022 Insurance Providers Payer Name Payer Address Payer Phone Subscriber Number Group Number Insured Name Patient Relationship to Insured Coverage Start Date Coverage End Date Michael MEN[place] (Medicai d) [address] [address] [place] [phone] [id number] Farnnie Nuñez Self - patient is the insured Medical (General) History Medical History History ICD Code Anemia Avitaminosis B 12 deficiency Carotid artery stenosis CHF 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
--- OUTSIDE RECORDS SUMMARY | 2025-04-03 17:10 | XMS_ITS | Encounter Summary ---
Author Organization [facility] Address [address] [place] [address] Care Team Providers Care Support Service Tech Name Role Phone Ronaldo Kong MD Primary Care Provider [phone] Encounter Details Date Type Department Care Team (Late st Contact Info) Description 03/03/2025 [facility]phone [facility] [address] [place] [address] Magalis Reid, [employer] WORKER, DNP [address] [place] [address] Social History Tobacco Use Types Packs/Day Years Used Date Smoking Tobacco: Every Day Cigarettes 1 30 Passive Smoke Exposure: Current Smokeless Tobacco: Never Alcohol Use Standard Drinks/Week Comments Not Currently 0 (1 standard drink = 0.6 oz pur e alcohol) PHQ-2 Answer Date Recorded Patient Health Questionnaire-2 Score 0 11/05/2023 Comments No Sex and Gender Information Value Date Recorded Sex Assigned at Not on file Legal Sex Female 8:39 PM EDT Gender Identity Not on file Sexual Orientation Not on file documented as of this encounter Miscellaneous Notes * Telephone Encounter - Darlene Matt - 03/03/2025 1:36 PM EDT Clinical Concern/Question Reason for Call: Patient asking for a call back to reschedule UDS. thanks Best contact number: [phone] (mobile) Optimal time of day to reach caller: ANYTIME Additional comments/information from caller: None Note: Please do not reply to this message. Follow-up communication and further actions as a result of this message need to be communicated with the patient directly, if the patient is not active onMyChart. If the patient is active on MyChart, they will receive notification of the communication/outcome via MyChart. documented in this encounter Plan of Treatment Upcoming Encounters Date Type Department Care Team (Late st Contact Info) Description 06/01/2025 9:20 AM EDT [facility] Visit [facility] [address] [place] [address] Magalis Reid, [employer] WORK[employer], DNP [address] [place] [address] documented as of this encounter Visit Diagnoses Not on filedocumented in this encounter Additional Health Concerns Assessment Noted Time A fall risk assessment has been complete d for the patient 10/02/2023 1:33 PM EST A Body Mass Index follow-up plan has been documented for the patient 11/14/2024 1:45 PM EST documented as of this encounter Care Teams Support Service Tech Relationship Specialty Start Date End Date Ronaldo Kong MD [address] [place] [address] [place] [address] PCP - General 03/01/21 Guru Ma [address] [place] [address] [address] [facility] [address] Referring Physician Obstetrics and Gynecology 09/02/21 documented as of this encounter
--- OUTSIDE RECORDS SUMMARY | 2025-04-03 17:10 | XMS_ITS | Patient Health Record ---
Author Organization [facility] Address [address] [facility] [address] [place] [address] Care Team Providers Care Advanced Seal Delivery System Name Role Phone Harpreet Castaneda [phone] Allergies Allergen (clinical drug ingredient) Drug/Non Drug Allergy documented on EMR Reaction Allergy Type Onset Date Status diphenhydramine Benadryl Unknown Drug Allergy A ctive Tetanus Immune Globulin Unknown Drug Allergy Active meclizine Meclizine anxiety/ nerve pain Drug Allergy Active Reason For Referral No Information Medications Medication SIG (Take, Route, Frequency, Duration) Notes Start Date End Date Status Nurtec 75 MG 1 tablet on the tongue and allow to dissolve Orally for 30 days As needed Active Spironolactone 50 MG 1 tablet Orally Onc e a day Active Emgality 120 MG/ML 1 ml Subcutaneous fo r 30 day(s) Active rOPINIRole HCl 2 MG 2 tablet 1 to 3 hour s before bedtime Orally Once a day Active ARIPiprazole 5 MG 1 tablet Orally Once a day Active Albuterol Sulfate HFA 108 (90 Base) MCG/ACT 1 puff as needed Inhalation every 4 hrs Not-Takjonathon g buPROPion HCl ER (Smoking Det) 150 MG 1 tablet in the morning Orally Once a day for 30 day(s) Active Rosuvastatin Calcium 40 MG 1 tablet Orally Once a day 11/22/2024 Active Baclofen 10 MG 1 tablet Orally four times a day Active ZyrTEC Allergy 10 MG 1 tablet Orally Onc e a day for 30 day(s) Active Pantoprazole Sodium 40 MG 1 tablet Orall y Once a day Active Zonisamide 100 MG 1 capsule Orally Thr ee times daily Active Carvedilol 12.5 MG 1 tablet with food Orally Twice a day Active Problems Problem Type SNOMED Code ICD Code Onset Dates Problem Status W/U Status Risk Notes Problem 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 Problem Morbid obesity (393244108) Morbid obesity (E66.01) Active confirmed Problem Type 2 diabetes mellitus (86484040) Type 2 diabetes mellitus (E11.9) Active confirmed Problem Hypertension (44923746) HTN (hypertension) (I10) Active confirmed Problem Brain tumor (648447491) Brain tumor (D49.6) Active confirmed Problem Obstructive sleep apnea syndrome (08596734) BRENDA (obstructive sleep apnea) (G47.33) Active confirmed Problem Obese (152146094) Obese (E66.9) Active confirmed Problem Chronic kidney disease stage 2 (152730394) Chronic kidney disease stage 2 (N18.2) Active confirmed Problem Obstructive sleep apnea syndrome (96809833) BRENDA (obstructive sleep apnea) (G47.33) Active confirmed Vital Signs Heart Rate 80 /min 11/22/2024 Temperature 97.3 degrees Fahrenheit 11/22/2024 Respiratory Rate 20 /min 11/22/2024 Oximetry 96 % 11/22/2024 Blood pressure diastolic 79 mm Hg 11/22/2024 Weight-kg 126.15 kg 11/22/2024 Height 67 in 11/22/2024 Blood pressure systolic 126 mm Hg 11/22/2024 Weight 278.1 lbs 11/22/2024 BMI 43.55 kg/m2 11/22/2024 Encounters Encounter Location Date Provider Diagnosis [facility] [address] [place] [address] 11/22/2024 Harpreet Castaneda Chronic kidney disease stage 2 N18.2 ; Analgesic nephropathy N14.0 ; HTN (hypertension) I10 ; Obese E66.9 ; Type 2 diabetes mellitus E11.9 and BRENDA (obstructive sleep apnea) G47.33 Assessments Encounter Date Diagnosis (ICD Code) Assessment Notes Treatment Notes Treatment Clinical Notes Section Notes 11/22/2024 Chronic kidney disease stage 2 (ICD-10 - N18.2) I shared today's findings and recent lab results with Frannie and pointed out that her kidney function remains very slightly abnormal but stable and certainly more than adequate to prevent health problems. Her bladder issues aside she seems to be doing reasonably well and has lost weight once again but tends to yo-yo in this regard. Nevertheless, I have made no changes or additions to her medications as her blood pressure appears to be adequately controlled. I encouraged her to continue losing weight and reminded her to avoid NSAIDs which she is doing. We agreed to meet again in 6 months. 11/22/2024 Analgesic nephropathy (ICD-10 - N14.0) I shared today's findings and recent lab results with Frannie and pointed out that her kidney function remains very slightly abnormal but stable and certainly more than adequate to prevent health problems. Her bladder issues aside she seems to be doing reasonably well and has lost weight once again but tends to yo-yo in this regard. Nevertheless, I have made no changes or additions to her medications as her blood pressure appears to be adequately controlled. I encouraged her to continue losing weight and reminded her to avoid NSAIDs which she is doing. We agreed to meet again in 6 months. 11/22/2024 HTN (hypertension) (ICD-10 - I10) I shared today's findings and recent lab results with Frannie and pointed out that her kidney function remains very slightly abnormal but stable and certainly more than adequate to prevent health problems. Her bladder issues aside she seems to be doing reasonably well and has lost weight once again but tends to yo-yo in this regard. Nevertheless, I have made no changes or additions to her medications as her blood pressure appears to be adequately controlled. I encouraged her to continue losing weight and reminded her to avoid NSAIDs which she is doing. We agreed to meet again in 6 months. 11/22/2024 Obese (ICD-10 - E66.9) I shared today's findings and recent lab results with Frannie and pointed out that her kidney function remains very slightly abnormal but stable and certainly more than adequate to prevent health problems. Her bladder issues aside she seems to be doing reasonably well and has lost weight once again but tends to yo-yo in this regard. Nevertheless, I have made no changes or additions to her medications as her blood pressure appears to be adequately controlled. I encouraged her to continue losing weight and reminded her to avoid NSAIDs which she is doing. We agreed to meet again in 6 months. 11/22/2024 Type 2 diabetes mellitus (ICD-10 - E11.9) I shared today's findings and recent lab results with Frannie and pointed out that her kidney function remains very slightly abnormal but stable and certainly more than adequate to prevent health problems. Her bladder issues aside she seems to be doing reasonably well and has lost weight once again but tends to yo-yo in this regard. Nevertheless, I have made no changes or additions to her medications as her blood pressure appears to be adequately controlled. I encouraged her to continue losing weight and reminded her to avoid NSAIDs which she is doing. We agreed to meet again in 6 months. 11/22/2024 BRENDA (obstructive sleep apnea) (ICD-10 - G47.33) I shared today's findings and recent lab results with Frannie and pointed out that her kidney function remains very slightly abnormal but stable and certainly more than adequate to prevent health problems. Her bladder issues aside she seems to be doing reasonably well and has lost weight once again but tends to yo-yo in this regard. Nevertheless, I have made no changes or additions to her medications as her blood pressure appears to be adequately controlled. I encouraged her to continue losing weight and reminded her to avoid NSAIDs which she is doing. We agreed to meet again in 6 months. Plan Of Treatment Pending Test Test Name Order Date Hemoglobin A1c 11/22/2024 CBC, Platelet with No Differential 11/22 Comp. Metabolic Panel (14) 11/22/2024 Urinalysis 11/22/2024 CBC WITH DIFF 11/30/2023 CBC WITH DIFF 06/01/2023 IRON, TIBC AND FERRITIN PANEL 11/30/2023 IRON, TIBC AND FERRITIN PANEL 07/29/2022 CMP14+eGFR 08/01/2021 CMP14+eGFR 07/29/2022 CMP14+eGFR 11/30/2023 CMP14+eGFR 12/01/2022 URINALYSIS COMPLETE 06/01/2023 URINALYSIS COMPLETE 05/30/2021 URINALYSIS COMPLETE 11/30/2023 URINALYSIS COMPLETE 08/01/2021 CBC W AUTOMATED DIFFERENTIAL 08/01/2021 CBC W AUTOMATED DIFFERENTIAL 12/01/2022 CBC W AUTOMATED DIFFERENTIAL 07/29/2022 CBC W AUTOMATED DIFFERENTIAL 05/30/2021 HGB A1C (GLYCOHEMOGLOBIN) 12/01/2022 HGB A1C (GLYCOHEMOGLOBIN) 11/30/2023 BMP 05/30/2021 BMP 06/01/2023 Future Test Test Name Order Date Urinalysis, Complete 07/29/2022 .Renal Function Panel 07/29/2022 HGB & HCT 07/29/2022 Next Appt Details Provider Name:Harpreet Castaneda, 05/23/2025 10:40:00 AM, [address] [facility] [address], [place], [address], Insurance Providers Payer Name Payer Address Payer Phone Subscriber Number Group Number Insured Name Patient Relationship to Insured Coverage Start Date Coverage End Date [employer] 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
--- OUTSIDE RECORDS SUMMARY | 2025-04-03 17:11 | XMS_ITS | Data Portability ---
Author Organization [facility] Address [address] [place] [address] Care Team Providers Care Career Resource Specialist Name Role Phone NIECY HATFIELD Publications Manager Assessment Encounter Date Assessment Date Assessment LastModified by Organization Details LastModified Time 11/15/2024 11/15/2024 54-year-old female with chronic nausea, ongoing constipation with intermittent diarrhea, and GERD. Not available 11/15/2024 13:22:41 01/25/2025 01/25/2025 54-year-old female with: [email or web address] Not available 01/25/2025 21:56:59 02/16/2025 02/16/2025 54-year-old female with: [email or web address] Not available 02/16/2025 11:54:06 Plan of Treatment Reminders Order Date Submit Date Provider Last Modified By Organization Details Last Modified Time Details Appointments None record ed. Lab None record ed. [facility]hang pagan record s from [facility] for HIDA scan and GBUS. Report ed as normal , but she recall s sympto m reprod uction with CCK. Chroni vani nausea carmina. Unrema rkable EGD and GES recent ly. 2024 025 [email or web address] Sakina Tran MD, [address], [place], [address], 09:57:02 Procedures None record ed. Surgeries None record ed. Imaging XR, esopha gram 2024 025 [email or web address] [facility] Scheduling Department -New Scheduling Process, [address] [facility] [address], [place], [address], 5 14:11:12 [place], leeleeifi ed barium kaley w study 2024 025 [email or web address] [facility] Scheduling Department -New Scheduling Process, [address] [facility] [address], [place], [address], 5 08:13:31 Medication Orders Motegr ity 2 mg tablet 2024 025 [facility], [address] [place] [address], [place], [id number], 5 14:52:44 Linzes s 145 mcg capsul e 2024 025 [facility], [address] [place] [address] [place], [id number], 5 11:26:10 dexlan sopraz ole 60 mg capsul e,biph ase delaye d releas e 2024 025 [facility], [address] [place] [address], [place], [id number], 5 15:27:46 Linzes s 145 mcg capsul e 2024 025 [facility], [address] [place] [address] [place], [place], [id number], 5 10:02:03 ondans etron 4 mg disint egrati ng tablet 2024 025 [email or web address] [facility], [address] [place] [address] [place], [id number], 5 11:56:30 Patient TargetsNo targets recorded. Patient InstructionsNo instructions recorded. Reason for Referral General Surgeon Referral for Biliary dyskinesia Requesting records from [facility] for HIDA scan and GBUS. Reported as normal, but she recalls symptom reproduction with CCK. Chronically nauseated. Unremarkable EGD and GES recently. Referring Physician: Cornelio Cooper, Gastroenterology, Encounter Date: 11/15/2024 Results Created Date Observation Date Name Description Value Unit Range Abnormal Flag Note LastModifiedBy Organization Detail LastModifiedTime 11/24/1911/24/2024 CBC NO DIFF (HEMO GRAM) WBC 9.3 K/uL 4.0-10 .5 Not Available [facility] [address] [facility], [place], [address], 11/24/2024 11:27:22 11/24/19 25 11/24/2024 CBC NO DIFF (HEMO GRAM) RBC 3.8 M/mm3 4.2-6. 4 low Not Available [facility] [address] [facility], [place], [address], 11/24/2024 11:27:22 11/24/19 25 11/24/2024 CBC NO DIFF (HEMO GRAM) HGB 11.8 gm/dL 12.5-1 6.0 low Not Available [facility] [address] [facility], [place], [address], 11/24/2024 11:27:22 11/24/19 25 11/24/2024 CBC NO DIFF (HEMO GRAM) HCT 36.8 % 37.0-4 7.0 low Not Available [facility] [address] [place], [address], 11/24/2024 11:27:22 11/24/19 25 11/24/2024 CBC NO DIFF (HEMO GRAM) MCV 95.8 fL 78-100 Not Available [facility] [address] [place], [address], 11/24/2024 11:27:22 11/24/19 25 11/24/2024 CBC NO DIFF (HEMO GRAM) MCH 30.7 pg 27-31 Not Available [facility] [address] , [place], [address], 11/24/2024 11:27:22 11/24/19 25 11/24/2024 CBC NO DIFF (HEMO GRAM) MCHC 32.1 g/dL 32-36 Not Available [facility] [address] , [place], [address], 11/24/2024 11:27:22 11/24/19 25 11/24/2024 CBC NO DIFF (HEMO GRAM) RDW 15.1 % 11.5-1 4.0 high Not Available [facility] [address] , [place], [address], 11/24/2024 11:27:22 11/24/19 25 11/24/2024 CBC NO DIFF (HEMO GRAM) platelet count 302 K/uL 150-45 0 Not Available [facility] [address] , [place], [address], 11/24/2024 11:27:22 11/24/19 25 11/24/2024 CBC NO DIFF (HEMO GRAM) MPV 10.2 fL 6-9.5 high Not Available [facility] [address] , [place], [address], 11/24/2024 11:27:22 11/24/19 25 11/24/2024 CBC NO DIFF (HEMO GRAM) manual differential NO Not Available [facility] [address] , [place], [address], 11/24/2024 11:27:22 11/24/19 25 11/24/2024 COMP METAB OLIC PANEL sodium 142 mmol/ L 136-14 5 Not Available [facility] [address] , [place], [address], 11/24/2024 14:26:55 11/24/19 25 11/24/2024 COMP METAB OLIC PANEL potassium 4.2 mmol/ L 3.6-5. 0 Not Available [facility] [address] [place], [address], 11/24/2024 14:26:55 11/24/19 25 11/24/2024 COMP METAB OLIC PANEL chloride 106 mmol/ L 98-107 Not Available [facility] [address] , [place], [address], 11/24/2024 14:26:55 11/24/19 25 11/24/2024 COMP METAB OLIC PANEL carbon dioxide 24.5 mmol/ L 21.0-3 2.0 Not Available [facility] [address] [place], [address], 11/24/2024 14:26:55 11/24/19 25 11/24/2024 COMP METAB OLIC PANEL anion gap 15.7 Not Available [facility] [address] [place], [address], 11/24/2024 14:26:55 11/24/19 25 11/24/2024 COMP METAB OLIC PANEL glucose 125 mg/dL 70-120 high Not Available [facility] [address] [place], [address], 11/24/2024 14:26:55 11/24/19 25 11/24/2024 COMP METAB OLIC PANEL BUN 14 mg/dL 7-18 Not Available [facility] [address] [place], [address], 11/24/2024 14:26:55 11/24/19 25 11/24/2024 COMP METAB OLIC PANEL creatinine 1.0 mg/dL 0.6-1. 3 Not Available [facility] [address] [place] [address], [place], [address], 11/24/2024 14:26:55 11/24/19 25 11/24/2024 COMP METAB [...] hale ing kiney funct ion. Not Available [facility] [address] [place] [address] , [place], [address], 11/24/2024 14:26:55 11/24/19 25 11/24/2024 COMP METAB OLIC PANEL total protein 7.3 g/dL 6.4-8. 2 Not Available [facility] [address] , [place], [address], 11/24/2024 14:26:55 11/24/19 25 11/24/2024 COMP METAB OLIC PANEL albumin 3.3 g/dL 3.4-5. 0 low Not Available [facility] [address] [place] [address], [place], [address], 11/24/2024 14:26:55 11/24/19 25 11/24/2024 COMP METAB OLIC PANEL globulin 4.0 Not Available [facility] ([facility] [address] [place] [address], [place], [address], 11/24/2024 14:26:55 11/24/19 25 11/24/2024 COMP METAB OLIC PANEL alb/glob ratio 0.8 0.7-2 Not Available [facility] [address] , [place], [address], 11/24/2024 14:26:55 11/24/19 25 11/24/2024 COMP METAB OLIC PANEL calcium 9.8 mg/dL 8.5-10 .5 Not Available [facility] [address] , [place], [address], 11/24/2024 14:26:55 11/24/19 25 11/24/2024 COMP METAB OLIC PANEL bilirubin total 0.20 mg/dL 0.10-1 .00 Not Available [facility] [address] [place] [address], [place], [address], 11/24/2024 14:26:55 11/24/19 25 11/24/2024 COMP METAB OLIC PANEL AST (SGOT) 15 U/L 0-37 Not Available [facility] ([facility] [address] , [place], [address], 11/24/2024 14:26:55 11/24/19 25 11/24/2024 COMP METAB OLIC PANEL ALT (SGPT) 28 U/L 0-65 Not Available [facility] ([facility]) [address] [place] [address], [place], [address], 11/24/2024 14:26:55 11/24/19 25 11/24/2024 COMP METAB OLIC PANEL alk phosphatase 170 U/L 46-116 high Not Available [facility] ([facility] [address], [place], [address], 11/24/2024 14:26:55 12/14/19 25 12/22/2024 PATHO LOGY SPECI MEN pathology specimen SEE YOLANDA ENRIQUE Not Available [facility] [address] [place], [address], 12/22/2024 14:20:19 10/20/19 25 10/18/2024 NM, gastr ic empty ing scan [facility] [address] [place] [address] Phone: Fax: Name: FRANNIE THOMPSON Exam Date: 2023 : 970 Age 54 years Gender : F Access ion: [id number] Physic rosa m: CORNELIO COOPER [...] [facility] Leg[facility] y authen ticate d by ALISHA Neves 2023-10 12:08: 17 CC'ed Logic: Orderi ng Provid er: JONH MCKEON Attend ing Provid er: JONH MCKEON Referr ing Provid er: JONH MCKEON Admitt ing Provid er: JONH MCKEON [email or web address] [facility] [address] [facility], [place], [address], 12/24/2024 12:45:26 11/30/1911/30/2024 medic al clear ance* No observ ation record ed. [email or web address] [address], [address], 12/01/2024 09:59:03 02/18/20 25 02/15/2025 XR, esoph agram No observ ation record ed. [facility] [address], [place], [address], 02/17/2025 14:35:59 02/23/20 25 02/15/2025 [place], modif ied shirley azevedo study No observ ation record ed. [facility] [address], [place], [address], 02/22/2025 12:09:55 Result Notes None recorded. Problems Name Problem SNOMED Code Status Onset Date Resolution Date Notes Provider Name and Address Organization Details Recorded Time Gastroesophag eal reflux disease without esophagitis 248472501 Active 2023 Cornelio Cooper PA-C [address] , [place], [address] , [place] [facility] [place] 4 10:33:08 Regurgitation of gastric content 81282404 Active 2023 Cornelio Cooper PA-C [address], [place], [address] , [place] [facility] [place] 4 10:33:35 Nausea 717124931 Active 2023 Cornelio Cooper PA-C [address], [place], [address] , [place] [facility] [place] 4 10:33:43 Chronic idiopathic constipation 22129314 Active 2023 Cornelio Copoer PA-C [address], [place], [address] , [place] [facility] [place] [facility] [place] 4 10:35:21 Constipation alternates with diarrhea 106122598 Active 2023 Cornelio Cooper PA-C [address], [place], [address] , [place] [facility] [place] 4 10:36:31 Biliary dyskinesia 999085261 Active [address], [place], [address] , [place] [facility] [place] 5 13:26:10 Dysphagia 34787775 Active [address], [place], [address] , [place] [facility] [place] 5 13:16:18 Diverticuliti s of intestine 170564561 Active [address], [place], [address] , [place] [facility] [place] 5 15:57:22 Arthritis 5192124 Active 2022 Basia barney, [place] [facility] [place] 3 14:48:04 Diabetes mellitus 04116769 Active 2022 Basia Palumbo null, [place] [facility] [place] 3 14:48:08 Hypercholeste rolemia 45610001 Active 2022 Basia Palumbo null, [place] [facility] [place] [facility] [place] 3 14:48:19 Fibromyalgia 810997279 Active 2022 Basia Palumbo [place] [facility] [facility] [place] 3 14:48:26 Irritable bowel syndrome 34728348 Active 2022 Basia Palumbo null, [place] [facility] [facility] [place] 3 14:48:30 Anemia 581252670 Active 2022 Tefanie Guanako null, [place] [facility] [facility] [place] 3 14:03:28 Hypertensive disorder 32982897 Active 2022 Britany Mujica null[place] [facility] [facility] [place] 3 14:03:37 Cardiac pacemaker in situ 860202695 Active 2022 Britany Mujica null[place] [facility] [facility] [place] 3 14:04:04 Anxiety 30525500 Active 2022 Britany Mujica null[place] [facility] [facility] [place] 3 14:04:14 Asthma 433262797 Active 2022 Britany Mujica null[place] [facility] [facility] [place] 3 14:04:20 Seizure 29123929 Active 2022 Britany Mujica null, [place] [facility] [place] [facility] [place] 3 14:04:25 Problem Notes None recorded. Procedures Surgical History Date Name Laterality Status Provider Name and Address Organization Details Recorded Time 025 Colonoscopy completed Thompson Patel [place] [facility] [place] [facility] [place] 01/25/2025 12:58:03 025 cholecystectomy completed [place] [facility] [place] [facility] [place] 12/27/2024 10:19:28 024 completed Danay [place] [facility] [facility] [place] 01/25/2025 12:59:25 024 Most Recent Bone Density completed Danay [place] [facility] [place] 01/25/2025 12:59:25 024 Other completed Danay [place] [facility] [facility] [place] 01/25/2025 12:59:43 024 Joint Replacement completed Danay [place] [facility] [place] [facility] [place] 01/25/2025 12:59:43 023 Cystoscopy-Female completed Jordan Gil Jr, MD [address] [place] [address], [address], [place], [address], [place] [facility] [place] [facility] [place] 03/06/2023 15:35:18 023 Date of Last Colonoscopy completed Danay Carey [place] [facility] [place] [facility] [place] 01/25/2025 12:59:25 023 Other completed Danay [place] [facility] [place] [facility] [place] 01/25/2025 12:59:43 023 Pacemaker/Defibril lator completed Danay [place] [facility] [place] [facility] [place] 01/25/2025 12:59:43 023 Abdominal Surgery completed Danay [place] [facility] [place] [facility] [place] 01/25/2025 12:59:43 022 Cardiovascular Surgery completed Danay [place] [facility] [place] [facility] [place] 01/25/2025 12:59:43 020 total replacement of hip completed Basia NIEVES - [facility] - [place] [facility] [place] 12/03/2022 15:14:14 020 Head or Neck Surgery completed Danay [place] [facility] [place] [facility] [place] 01/25/2025 12:59:43 020 Hip Surgery completed Danay [place] [facility] [place] [facility] [place] 01/25/2025 12:59:43 019 Joint Replacement completed Danay [place] [facility] [place] [facility] [place] 01/25/2025 12:59:43 019 Hip Surgery completed Danay Carey [place] [facility] [place] [facility] [place] 01/25/2025 12:59:43 016 EGD/Endoscopy completed Basia Deepali NIEVES - [facility] [place] [facility] [place] 12/03/2022 15:14:01 014 Colonoscopy completed Basia Deepali NIEVES - [facility] - [place] [facility] [place] 12/03/2022 15:13:52 004 Date of Last Pap Smear completed Danay Carey [place] - [facility] [place] [facility] [place] 01/25/2025 12:59:25 975 Tonsillectomy/Jonathan oidectomy completed Danay LYNNE [facility] [place] 01/25/2025 12:59:43 neck repair completed Britany LYNNE [facility] [place] 03/06/2023 14:05:26 procedure on knee completed Britany LYNNE [facility] [place] 03/06/2023 14:05:44 Total Hysterectomy completed Elroy LYNNE [facility] [place] 03/06/2023 14:05:56 cardiac pacemaker procedure completed Britany LYNNE [facility] [place] 03/06/2023 14:06:07 pain assessment completed Britany LYNNE [facility] [place] 03/06/2023 14:06:20 Imaging Results None recorded. Procedure Notes None recorded. Medical Equipment None Reported. Allergies Allergen ID Allergen Name Allergen Category Reaction Reaction Severity Criticality Documentation Date Start Date Code Code System Note Provider Name and Address Organization Details Recorded Time 443474 meclizine medicatio n Not available Not available Not available 08/24/2023 6676 RxNorm Anabella [place]ETH Manzano [facility] [place] 3 10:59:14 879655 Substance with sulfonami de structure and antibacte rial mechanism of action (substanc e) medicatio n nausea severe Not available 02/16/2025 23764 8003 SNOMED Vanda Romero Izquierdo [place] barney [facility] [place] 5 11:56:11 91274 Benadryl medicatio n Not available Not available Not available 12/03/2022 13060 7 RxNorm Basia [place] Thompson [facility] [place] 3 14:47:43 66231 tetanus and diphtheri a toxoids Not available Not available Not available Not available 12/03/2022 94980 UNK Basia [place] Thompson [facility] [place] 3 14:47:55 52590 adhesive environme nt,medica tion Not available Not available Not available 03/06/2023 99412 UNK Britany Mujica [facility], [place] - [facility] [place] [facility] [place] 3 13:49:50 Medications Name Sig Start Date Stop Date Status Note LastModified by Organization Details LastModified Time clindamycin /mupirocin 100/20mg topical capsule (xylitol) [21433] MIX THE CONTENTS OF 1 CAPSULE WITH [...] Not Available No t Available Dexcom G6 Track Rider active Not Available Not Available Not Available [...] Not Available [facility] ODT 75 mg disintegrat ing tablet 03/16 completed Not Available Not Available Not Available [facility] ODT 03/16 completed Not Available [...] Updated DateTime 5 170.18 cm 43.7 kg/m2 746558. 19 g 97.3 [degF] 97 % 97 % 70 /min 136 mm[Hg] 91 mm[Hg] Thompson rabago [facility] [place] 5 13:00:01 Date Recorded Body height Body mass index (BMI) Body weight Body temperature Heart rate Systolic blood pressure Diastolic blood pressure Provider Name and Address Organization Details Last Updated DateTime 5 170.18 cm 43.8 kg/m2 856283. 15 g 97.7 [degF] 73 /min 128 mm[Hg] 88 mm[Hg] Katie Falcon [facility] 5 09:56:54 Date Recorded Body height Body mass index (BMI) Body weight Body temperature Heart rate Systolic blood pressure Diastolic blood pressure Provider Name and Address Organization Details Last Updated DateTime 5 170.18 cm 43.6 kg/m2 467284. 48 g 96.6 [degF] 73 /min 126 mm[Hg] 76 mm[Hg] Katie Falcon [facility] [place] 5 10:16:07 Date Recorded Body height Body mass index (BMI) Body weight Heart rate Heart rate Oxygen saturation Oxygen saturation in Arterial blood by Pulse oximetry Body temperature Systolic blood pressure Diastolic blood pressure Provider Name and Address Organization Details Last Updated DateTime 5 170.18 cm 44.1 kg/m2 610377. 97 g 73 /min 72 /min 97 % 97 % 98.2 [degF] 142 mm[Hg] 80 mm[Hg] Danay Carey [facility] 5 13:00:07 Date Recorded Body height Body mass index (BMI) Body weight Body temperature Heart rate Heart rate Oxygen saturation Oxygen saturation in Arterial blood by Pulse oximetry Systolic blood pressure Diastolic blood pressure Provider Name and Address Organization Details Last Updated DateTime 5 170.18 cm 44.6 kg/m2 108008. 03 g 96.8 [degF] 84 /min 82 /min 97 % 97 % 149 mm[Hg] 99 mm[Hg] Danay Carey [facility] [place] 5 11:12:16 Social History Question Answer Notes LastModified by Funjiizat ion Details LastModified Time Tobacco Smoking Status Current Every Day Smoker [facility] [place] 12/03/2022 15:13:21 Do You Have An Advance Directive? No [email or web address] Information not available 01/25/2025 Are You Blind Or Do You Have Difficulty Seeing? No [email or web address] Information not available 01/25/2025 What Was The Date Of Your Most Recent Tobacco Screening? 08/15/2024 [email or web address] Information not available 01/25/2025 Are You Passively Exposed To Smoke? No [email or web address] Information not available 01/25/2025 How Much Tobacco Do You Smoke? 1 PPW [email or web address] Information not available 01/25/2025 How Many Years Have You Smoked Tobacco? 31 [email or web address] Information not available 01/25/2025 Sex: Female Functional Status Question Answer Note LastModified by Organizat ion Details LastModified Time Do you use any illicit or recreational drugs? No [email or web address] Information not available 12/03/2022 What is your level of alcohol consumption? None [email or web address] Information not available 12/03/2022 Do you or have you ever used smokeless tobacco? Never used smokeless tobacco [email or web address] Information not available 01/25/2025 What is your exercise level? None [email or web address] Information not available 01/25/2025 Mental Status Question Answer Note LastModified by Organization D etails LastModified Time Do you feel stressed (tense, restless, nervous, or anxious, or unable to sleep at night)? [id number] Information not available 01/25/2025 Family History Relationship Description Onset Age of this Age Resolved Age Notes LastModified by Organization Details LastModified Time Mother Hypertensive disorder [email or web address] Not available 12/03 15:12:55 Father Coronary arterioscler osis [email or web address] Not available 2024 11:07:22 Father Hypertensive disorder [email or web address] Not available 03/2023 11:00:03 Father Heart disease [email or web address] Not available 03/2023 11:00:12 Brother Coronary arterioscler osis [email or web address] Not available 2024 11:07:22 Brother Diabetes mellitus [email or web address] Not available 2024 11:07:22 Paternal Grandmother Obesity [email or web address] Not available 10/24/2022 10:59:38 Maternal Grandfather Asthma [...] unspecified formulation 4 completed Katie Falcon null, [place] - [facility] [place] 11/24/2024 10:00:11 zoster recombinant 5 completed Katie [place] null, [place] [facility] [facility] [place] 11/24/2024 10:01:26 pneumococcal, unspecified formulation 3 completed Katie [place], [place] [facility] [facility] [place] 11/24/2024 10:01:07 Influenza, split virus, quadrivalent, preservative 2 completed Danay Carey null, [place] [facility] [place] 01/25/2025 12:59:55 COVID-19, mRNA, LNP-S, PF, 30 mcg/0.3 mL dose 1 completed Danay Carey null, [place] - [facility] [place] 01/25/2025 12:59:55 COVID-19, mRNA, LNP-S, PF, 30 mcg/0.3 mL dose 1 completed Danay Carey null, [facility] [place] 01/25/2025 12:59:55 Pneumococcal conjugate PCV20, polysaccharide BGM095 conjugate, adjuvant, PF 2 completed Danay Carey null, [place] - [facility] [place] 01/25/2025 12:59:55 Influenza, split virus, trivalent, preservative 9 completed Danay Carey null, [place] - [facility] [place] 01/25/2025 12:59:55 Influenza, split virus, quadrivalent, PF 3 completed Danay Carey null, [place] [facility] [place] 01/25/2025 12:59:55 Past Encounters Encounter ID Performer Location Encounter Start Date Encounter Closed Date Diagnosis/Indication Diagnosis SNOMED-CT Code Diagnosis ICD10 Code Diagnosis Note [id number] ABHILASH Kerr [facility] [address] [facility],[place] [address] 12/03/2022 14:14:46 12/05/2022 12:48:30 Dysphagia 08667006 R13.10 Given recent history of dysphagia, recommend EGD at time of colonoscop y for further evaluation and dilatation if warranted. Pt is scheduled for EGD/Colon 01/14 @ 9:00 AM. Patient reminded to stop ozempic 2 weeks prior to scopes. [id number] Jordan Gil Jr, MD [facility] [address] [address] 03/06/2023 13:27:03 03/06/2023 15:14:33 Difficulty passing urine 926631790 R39.198 52-year-ol d white female with multiple [...] if she has any worsening of symptoms. [id number] Kieran Anna MD [facility] [address] [place] [address] 03/16/2024 09:31:51 03/16/2024 10:12:15 History of sick sinus syndrome 6330628576 08100 Z86.79 with [facility] pacemaker implant 08/12/22. normally functionin g, will follow up the interrogat ion. Cardiac abhilash garcia in situ 992644903 Z95.0 [facility]. Essential hypertension 35446241 I10 controlled continue medication s Dyslipidemia 984530790 E 78.5 on statin follow up fasting lipid profile. Cigarette smoker 4576928 7 F17.210 strongly encouraged to quit and offered help. Sleep apnea 97494000 G47 .30 On CPAP Obesity 318183315 E66.9 BMi 45. recommend weight loss. [id number] Cornelio Cooper PA-C [facility] [address] [place] [address] 08/17/2024 10:07:21 08/17/2024 10:59:29 Gastroesophageal reflux disease without esophagitis 707118129 K21.9 -I have recommende d she change the timing of Pantoprazo le to 30 minutes before morning and evening meal.-Rx provided for famotidine to use as needed for breakthrou gh symptoms. Regurgitat ion of gastric content [id number] R11.10 -Obtain gastric emptying study. Continue PPI. Nausea [id number] R11.0 Chronic. Refill provided for ondansetro n-Obtain Gastric emptying study to evaluate for possible diabetic gastropare sis. Constipati on alternates with diarrhea 095546243 K59.00 More constipati on predominat e. Possible with overflow. Start laxative therapy per below. Chronic id iopathic constipation [id number] K59.04 Previously refractory to Miralax and Senna. Start Linzess 145 mcg p.o. once daily. History of polyp of colon 394991436 Z86.0100 -Recommend surveillan ce colonoscop y 02/2028. Last exam was 02/[address] Hatfield with hyperplast ic polyp removed. She recalls a history of multiple polyps removed previous to this. History of diverticulitis [id number] 44490 Z87.19 -Last episode was several years ago. Notes multiple episodes, previously hospitaliz ed at [facility].-High fiber diet recommende d.-Measure s to avoid constipati on discussed- Colonoscop y last year showed diverticul osis. [id number] Cornelio Cooper PA-C [facility] [address] [place] [address] 11/15/2024 12:34:01 11/15/2024 13:20:03 Chronic idiopathic constipation 99903963 K59.04 Previously refractory to Miralax and Senna. Start Linzess 145 mcg p.o. once daily.-I have provided her with a paper prescripti on due to her pharmacy not previously receiving the eScript.-S amples were provided in the office today (#8) Gastroesop hageal reflux disease without esophagitis [id number] K21.9 Continue Pantoprazo le once daily and famotidine at bedtime. Symptoms are stable. Nausea 972080530 R11.0 Chronic. Continue ondansetro n, refill provided.- Gastric emptying study was normal 10/18/2024 . No findings on prior EGD to explain nausea.-Sy mptoms appear consistent with biliary dyskinesia . She reported unremarkab le GBUS and HIDA scan last year at [facility], however she noted experienci ng symptom reproducti on with administra tion of CCK.Will refer to general surgery for possible elective cholecyste ctomy. Will request imaging records from [facility]. History of polyp of colon [id number] Z86.0100 -Recommend surveillan ce colonoscop y 02/2028. Last exam was 02/[address] Hatfield with hyperplast ic polyp removed. She recalls a history of multiple polyps removed previous to this. Biliary dyskinesia 2007 K82.8 [id number] Sakina Tran MD [facility] [address] [place] [address] 11/24/2024 09:48:00 11/24/2024 10:39:05 Biliary dyskinesia 518181883 K82.8 The patient seems to have symptomati [...] patient's care. Cardiac pa jose in situ 919111684 Z95.0 Will obtain cardiac risk stratifica tion preoperati vely [id number] Sakina Tran MD [facility] [address] [place] [address] 12/27/2024 10:08:07 12/27/2024 10:55:07 Chronic cholecystitis with calculus 78975409 K80.10 stable postop. Patient does have a reaction to the Monocryl suture. We discussed that this should continue to improve with conservati ve management . She can use an over-the-c ounter antihistam ine as needed. She has no restrictio ns from a surgical standpoint . We discussed that the nausea should continue to improve with time. Skin react ion to suture material 048677014 T88.8XXA R23.9 [id number] Cornelio Cooper PA-C [facility] [address] [place] [address] 01/25/2025 12:45:40 01/25/2025 13:20:02 Chronic idiopathic constipation 61361465 K59.04 Continue Linzess 145 mcg once daily. Improved. Gastroesop hageal reflux disease without esophagitis 785773207 K21.9 -Not optimally controlled . Stop pantoprazo le. Start Dexlansopr azole 60 mg p.o. once daily. Nausea 492512762 R11.0 Resolved following recent cholecyste ctomy. GES was normal 10/18/24. History of polyp of colon 854529169 Z86.0100 -Repeat surveillan ce colonoscop y 12/2029. Dysphagia 56387152 R13.1 0 She describes both oropharyng eal and esophageal dysphagia symptoms. Empiric dilation performed in 2022 at [facility]. She is unclear if this was beneficial .-Obtain esophagram and MBS. Consider repeat EGD. [id number] Cornelio Cooper PA-C [facility] [address] [place] [address] 02/16/2025 11:06:53 02/16/2025 12:02:22 Dysphagia 10065556 R13.10 Empiric dilation performed in 2022 at [facility] was mildly helpful for a period of a few months.-MB S was overall unremarkab le.-We are awaiting her esophagram results. Consider repeat EGD with dilation. Chronic id iopathic constipation 01135930 K59.04 Hold Linzess 145 mcg. Start Motegrity 2 mg once daily. If she has refractory symptoms she may add the linzess in with the motegrity and monitor. Gastroesop hageal reflux disease without esophagitis 215897862 K21.9 -Not optimally controlled recently with pantoprazo le. She has just recent started Dexlansopr azole 60 mg p.o. once daily. Nausea 215586746 R11.0 Resolved following recent cholecyste ctomy. GES was normal 10/18/24. History of polyp of colon 170579320 Z86.0100 -Repeat surveillan ce colonoscop y 12/2029. Health Concerns Section Related Observation LastModified by Organization Detai ls LastModified Time None Recorded Concern Status LastModified by Organization Details LastModified Time None Recorded Advance Directives Directive N: Payers Insurance Date Sequence Insurance Name Policy Number Policy Victoria Covered Member ID Victoria Member ID Guarantor Name 02/16/2025 1 [employer] [facility] (MEDICAID HMO) Frannie Gambleood [id number] Frannie Villalobos Nuñez 11/15/2024 2 [employer] Frannie W Nuñez [id number] Frannie W Nuñez 05/07/2024 1 [place] [id number] Frannie W Nuñez [id number] Frannie Villalobos Nuñez 11/15/2024 1 [place] [id number] Frannie W Nuñez [id number] Frannie Villalobos Nuñez Notes Date Note Type [...] having a GBUS and HIDA scan at [facility] last year that she was told was normal. She tells me that she did experience quite a bit of nausea during the HIDA scan. 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 Denies chest pain or SOA Sakina Tran MD [address], [place], [address], [facility] & [place] 11/24/2024 11:08:33 12/27/2024 text/html Two weeks status post robotic cholecystectomy. Pathology showed gallstones with chronic cholecystitis. She feels well overall, has some itching surrounding her incision sites. She has some mild nausea postprandially which is starting to improve. Sakina Tran MD [address], [place], [address], [facility] & [place] 12/27/2024 11:41:25 01/25/2025 text/html CURRENT (01/25/25) : [...] recent addition of Linzess. Cornelio Cooper PA-C [address] [facility], [place], [address], [place] - [place] - [place] & [place] 01/25/2025 22:00:35 02/16/2025 text/html PREVIOUS (01/25/25 ): [...] esophagram and modified barium swallow yesterday at [facility]. We do not have the results of these currently. I have contacted the speech therapist who performed her MBS and they indicated to me that the exam was overall unremarkable with the exception of some vallecular residue with larger bites. No aspiration was noted. We have contacted [facility] regarding her esophagram, but that has not yet been read by radiology.Regarding her constipation, we recently started Linzess, but she is now experiencing constipation for a few days consecutively, followed by periods of excessive diarrhea.Regarding GERD, she just started the Dexlansoprazole last week and has done well with this thus far. Cornelio Cooper PA-C [address], [place], [address], [facility] - [place] - [place] & [place] 02/16/2025 22:13:03 OBGyn Episode No OBEpisode recorded.
--- OUTSIDE RECORDS SUMMARY | 2025-04-03 17:11 | XMS_ITS | Clinical Summary ---
Author Organization [facility] Address [address] [place] [address] Care Team Providers Care Metallurgical Inspector Name Role Phone Ronaldo Kong MD Primary Care Provider [phone] Allergies Active Allergy Reactions Criticality Noted Date Comments Diphenhydramine Hives High 10/01/2010 Diphtheria Toxoid Rash Low 05/26/2022 Doxycycline Nausea Low 01/28/2023 Meclizine Rash Low 08/12/2022 Other Dermatitis Low 12/24/2021 Tape adhesive, steri-strips Tetanus Immune Globulin Unknown - Patien t states they do not know rxn details Low 09/24/2022 Other reaction(s): Hives Tetanus Toxoid Hives Medium 10/01/2010 Tetanus Toxoids Hives Medium 11/28/2017 Tetanus-Diphtheria Toxoids Td Hives Medium 08/07/2022 Medications pantoprazole (Protonix) 40 MG EC tablet Take 1 tablet (40 mg) by mouth 1 (one) time each day. Do not crush, chew, or split. Active lisinopril-hydroCH LOROthiazide 20-12.5 MG tablet Take 1 tablet by mouth 1 (one) time each day. Active lamoTRIgine (LaMICtal) 25 MG tablet Take 25mg by mouth in the morning and take 50mg by mouth in the evening Active levothyroxine (Synthroid, Levoxyl) 88 MCG tablet Take 1 tablet (88 mcg) by mouth 1 (one) time each day before breakfast. Active baclofen (Lioresal) 10 MG tablet Take by mouth 3 (three) times a day. Active ARIPiprazole (Abilify) 10 MG tablet Take 1 tablet (10 mg) by mouth 1 (one) time each day. Active zonisamide (Zonegran) 100 MG capsule Take 100mg by mouth in the morning and 200 mg by mouth in the evening Active carvedilol (Coreg) 12.5 MG tablet Take by mouth 2 (two) times a day with meals. Active cloNIDine (Catapres) 0.2 MG tablet Take 1 tablet (0.2 mg) by mouth every night. Active atorvastatin (Lipitor) 80 MG tablet Take 1 tablet (80 mg) by mouth every night. Active galcanezumab-gnlm (Emgality) 120 MG/ML injection Inject 1 Syringe (120 mg) under the skin every 30 (thirty) days. Active hydrOXYzine pamoate (Vistaril) 50 MG capsule Take 1 capsule (50 mg) by mouth 3 (three) times a day if needed. Active Rimegepant Sulfate (Nurtec) 75 MG tablet dispersible Take 1 tablet (75 mg) by mouth if needed. Active albuterol 108 (90 Base) MCG/ACT inhaler Inhale 2 puffs every 4 (four) hours if needed for wheezing. Active venlafaxine XR (Effoxor-XR) 150 MG 24 hr capsule Take 1 capsule (150 mg) by mouth 1 (one) time each day. Take with 75mg capsule Active acetaminophen (Tylenol) 325 MG tablet Take 2 tablets (650 mg total) by mouth every 6 (six) hours if needed for mild pain. 60 tablet 09/25/20 21 Active venlafaxine (Effexor) 75 MG tablet Take 1 tablet (75 mg) by mouth 1 (one) time each day. Take with 150mg Active ergocalciferol (Vitamin D-2) 1.25 MG (93235 UT) capsule Take 1 capsule (50,000 Units) by mouth 1 (one) time per week. Takes on Thursday Active Budeson-Glycopyrro l-Formoterol (Breztri Aerosphere) 160-9-4.8 MCG/ACT aerosol Inhale 2 Inhalation. 2 (two) times a day. Active ondansetron ODT (Zofran-ODT) 4 MG disintegrating tablet Take 1 tablet (4 mg total) by mouth every 6 (six) hours if needed for nausea or vomiting. 15 tablet 10/22/19 Active nicotine (Nicoderm CQ) 21 MG/24HR patch Place 1 patch on the skin 1 (one) time each day at the same time. 30 patch 10/22/19 Active Additional Information Patient not taking.Reported on 11/14/2024 nicotine polacrilex (Nicorette) 4 MG gum Chew 1 each (4 mg total) every 1 (one) hour if needed for smoking cessation. 100 each 1 10/22/19 Active Additional Information Patient not taking.Reported on 11/14/2024 cyanocobalamin (Vitamin B-12) 1000 MCG/ML injection 11/12/19 Active QUEtiapine (SEROquel) 100 MG tablet Take by mouth 1 (one) time each day. 11/11/19 Active B-D 3CC LUER-ARSALAN SYR 25GX1 25G X 1 3 ML misc 11/12/19 Active traZODone (Desyrel) 150 MG tablet 2 tablets (300 mg). 03/18/20 Active promethazine (Phenergan) 25 MG tablet 02/06/20 Active cyclobenzaprine (Flexeril) 10 MG tablet 01/21/20 Active spironolactone (Aldactone) 50 MG tablet Take by mouth 1 (one) time each day. 03/03/20 Active rOPINIRole (Requip) 1 MG tablet Take by mouth every night. 03/03/20 Active Symbicort 160-4.5 MCG/ACT inhaler 03/12/20 Active varenicline (Chantix) 1 MG tablet 09/08/20 Active traMADol (Ultram) 50 MG tablet Take by mouth if needed. 09/25/20 Active Ozempic, 0.25 or 0.5 MG/DOSE, 2 MG/1.5ML solution pen-injector inj. pen 08/21/20 Active mirtazapine (Remeron) 15 MG tablet Take 1 tablet (15 mg) by mouth 1 (one) time each day. 08/29/20 Active meclizine (Antivert) 25 MG tablet 06/26/20 Active ketoconazole (NIZOral) 2 % cream Apply topically. 09/13/20 22 Active hydroCHLOROthiazid e (HYDRODiuril) 25 MG tablet Take 25 mg by mouth 1 (one) time each day. 09/16/20 Active gentamicin (Garamycin) 0.1 % ointment Apply topically. 07/01/20 Active folic acid (Folvite) 1 MG tablet Take 1 tablet (1,000 mcg) by mouth 1 (one) time each day. 08/15/20 Active fluticasone (Flonase) 50 MCG/ACT nasal spray Administer into each nostril 1 (one) time each day if needed. 08/05/20 Active cetirizine (ZyrTEC) 10 MG tablet Take 1 tablet (10 mg) by mouth 1 (one) time each day. Active lisinopril 10 MG tablet Take 1 tablet (10 mg) by mouth 1 (one) time each day. 05/18/20 23 Active bumetanide (Bumex) 1 MG tablet Take 1 tablet (1 mg) by mouth 1 (one) time each day. 09/08/20 23 Active buPROPion XL (Wellbutrin XL) 300 MG 24 hr tablet 09/14/20 23 Active Vitamin D3 1.25 MG (56336 UT) capsule 09/14/20 23 Active potassium chloride (Klor-Con) 20 MEQ packet 11/18/19 23 Active sulfamethoxazole-t rimethoprim (Bactrim DS) 800-160 MG tablet 09/14/20 23 Active tiZANidine (Zanaflex) 4 MG tablet Take 1 tablet (4 mg) by mouth 3 times a day. Active colistimethate (Colymycin) 150 MG injection 09/30/20 23 Active potassium chloride CR (Klor-Con M20) 20 MEQ ER tablet 10/14/20 23 Active cyanocobalamin 1000 MCG tablet Take 1 tablet (1,000 mcg) by mouth 1 (one) time each day. Active Fluticasone-Umecli din-Vilant (Trelegy Ellipta) 200-62.5-25 MCG/ACT aerosol powder Inhale 1 (one) time each day. Active dapagliflozin (Farxiga) 5 MG tablet Take 1 tablet (5 mg) by mouth 1 (one) time each day. Active Active Problems Problem Noted Date Diagnosed Date Sacral nerve stimulator present 11/14/2024 Open wound 09/22/2023 Left foot pain 09/01/2023 Shortness of breath 07/20/2023 09/22/2023 Overview (09/22/2023): Last Assessment & Plan: Echocardiogram 07/21/2023-LVEF 61-65%. Left ventricular wall thickness is consistent with mild concentric hypertrophy. Left ventricular diastolic function is consistent with (grade 1) impaired relaxation. There is mild, bileaflet mitral valve thickening present. RVSP is normal. Mild mitral valve regurgitation. Mild tricuspid regurgitation - Continue current dose of Lasix. Swelling of lower extremity 07/20/2023 Overview (10/02/2023): Last Assessment & Plan: Lower extremity edema has improved since increasing Lasix dose to 40 mg once daily. - Continue current dose of Lasix and continue potassium supplement - Patient is scheduled to have labs checked later this week as part of preop work-up. I will review those labs once they are completed. - Continue to elevate legs is much as possible. OAB (overactive bladder) 06/19/2023 Swelling 05/18/2023 Overview (10/02/2023): Last Assessment & Plan: Patient has frequent complaints of worsening edema due to CHF. She is followed regularly by cardiology, Dr. Mary Hall. Patient currently utilizes Lasix 40 mg once daily. She presents today with complaints of gradually worsening volume status, increased lower extremity edema, abdominal swelling as well as shortness of breath particularly when lying down. She last presented to cardiology on July 20 of this year with the same complaints at which time her Lasix was increased from 20 to 40 mg once daily. She also underwent repeat echocardiogram and EKG. EF noted to be 61 to 65%. Left heart cath in December of this year showing angiographically normal coronary arteries with normal left ventricular systolic function. After increasing Lasix she was evaluated in follow-up by her regular PCP, Dr. Ronaldo Kong at which time she noted improvement in swelling with increased Lasix dosing. She notes this progression of swelling and shortness of breath has been happening for the last 1 to 2 weeks. She reports feeling as though her urine output has dropped off a bit, Lasix not being as effective. -Discontinue Lasix 40 mg daily -Transition to Bumex 1 mg tablet. We discussed sliding scale diuresis. Explained to patient to take 2 tablets once daily for the next 3 days. After that time decrease to daily dose of 1 tablet. She is instructed to maintain dry weights each morning after urination. If more than 3 pounds gain in 24 hours. She is to take 2 tablets on that particular day as a one-time dose. Instructions written in detail and given to the patient. - Emphasized need for low-sodium diet. Patient to follow-up with her regular PCP in 2 to 3 weeks -Given complaints of shortness of breath particularly with lying down will send for chest PA and lateral Pacemaker 05/10/2023 Nausea and vomiting 03/20/2023 Urinary retention 03/20/2023 Stasis edema of both lower extremities Acute cystitis with hematuria 02/27/2023 Overview (09/22/2023): Last Assessment & Plan: new onset urinary burning that started yesterday. He reports additional symptoms of urgency and hesitancy. She denies any hematuria, fever or low back pain. She admittedly is not a plentiful water drinker, mostly drinking soda. She has not utilized any calr-xly-iwnlxtd medications such as AZO for her symptoms. Urinalysis positive for leukocytes and blood in office today. We will treat empirically with Keflex. Advised to increase water consumption. Discussed role of glucose control in regards to UTI Gastritis without bleeding 01/23/202309/22 Overview (09/22/2023): Last Assessment & Plan: Onset of vomiting and diarrhea 3 days ago. No associated abdominal pain or tenderness, negative physical exam on palpation. No fever. She has utilized Benadryl, Zofran and Imodium antidiarrheal without any benefit. Mucous membranes remain moist on examination, no signs of dehydration. -We will send prescription for as needed Zofran -Advised sipping Pedialyte and ice chips until emesis subsides -Advised to slowly advance diet as tolerated -Discussed signs and symptoms of dehydration including dry mucous membranes or decreased urinary output. The symptoms occur she is advised to seek care in emergency department for IV fluid administration. -Advised to hold Ozempic dosing on Thursday, she has regular follow-up with her PCP, Dr. Ronaldo Kong on Thursday. Cigarette smoker motivated to quit 11/27/2022 09/22/2023 Rosacea 11/27/2022 Tinea corporis 11/27/2022 Chest pain 11/25/2022 09/22/2023 Overview (09/22/2023): Last Assessment & Plan: Resolved. Left heart cath on 01/15/2023-normal coronary arteries. Hypokalemia 11/25/2022 Overview (10/02/2023): Last Assessment & Plan: Potassium of 2.8 on 12/24/2022. Replacement started by Dr. Kong and hydrochlorothiazide was decreased to 12.5 mg once a day. Recheck labs as scheduled with Dr. Kong. B12 deficiency 09/24/2022 09/22/2023 Degenerative disc disease, lumbar 09/24/2022 09/22/2023 Migraine without aura and wi thout status migrainosus, not intractable 09/24/2022 09/22/2023 RLS (restless legs syndrome) 09/24/2022 Vertigo 09/24/2022 Sick sinus syndrome 08/12/2022 Overview (10/02/2023): Last Assessment & Plan: [facility] pacemaker placed August 12, 2022. Pacemaker interrogation today revealed good battery life and lead function. No alerts or arrhythmias noted. Bradycardia 08/08/2022 09/22/2023 Prediabetes 08/08/2022 Dizziness 08/08/2022 Arthropathy of cervical spine 05/27/2022 Asthma 05/27/2022 09/22/2023 Atherosclerosis of other arteries 05/27/2022 09/22/2023 Candidiasis of skin and nail 05/27/202202/2023 Bronchitis, chronic 05/27/2022 09/22/2023 Candidiasis of vulva and vagina 05/27/2022 09/22/2023 Chronic obstructive pulmonary disease, unspecifi ed 05/27/2022 09/22/2023 Chronic diastolic (congestive) heart failure 06/202209/22/2023 Overview (09/22/2023): Last Assessment & Plan: Stable and euvolemic on exam today. Dyspepsia 05/27/2022 09/22/2023 Overview (09/22/2023): Last Assessment & Plan: Followed by Dr. Sanches. On daily pantoprazole. Colonoscopy and EGD next week. Currently holding Ozempic until current episode of nausea subsides Depression 05/27/2022 09/22/2023 Mild hyperlipidemia 05/27/2022 09/22/2023 Morbid (severe) obesity due to excess calories 0 05/27/2022 09/22/2023 Occlusion and stenosis of left carotid artery 09/22/2023 Unilateral primary osteoarthritis, left knee 06/202209/22/2023 Endometriosis 05/27/2022 09/22/2023 Vitamin D deficiency 05/27/2022 09/22/2023 Hypothyroidism 05/27/2022 Hypertension 05/27/2022 Overview (10/02/2023): Last Assessment & Plan: Blood pressure well-controlled on current medications, 119/74 in office today. Currently utilizing regimen of carvedilol 12.5 mg twice daily, lisinopril 5 mg daily, spironolactone 50 mg daily. Hidradenitis suppurativa 05/27/2022 Generalized anxiety disorder 05/27/2022 Fibromyalgia 05/27/2022 Allergic rhinitis due to pollen 05/27/2022 Pain in left knee 05/27/2022 BRENDA (obstructive sleep apnea) 05/27/2022 Overview (10/02/2023): Last Assessment & Plan: Patient reports good compliance with PAP therapy, followed by Dr. Hall Other specified disorders of veins 05/27/2022 Other iron deficiency anemias 05/27/2022 Other difficulties with micturition 05/27/2022 Shingles 05/27/2022 Overview (10/02/2023): LUMBAR REGION Syncopal episodes 05/27/2022 Tinea unguium 05/27/2022 Hiatal hernia 05/27/2022 Degenerative disc disease, cervical 05/27/2022 Tobacco use disorder 02/05/2022 Second hand smoke exposure 02/05/2022 Abdominal wall seroma 01/08/2022 Wound dehiscence 10/08/2021 Seizure disorder 08/26/2021 09/22/2023 Resolved Problems Problem Noted Date Diagnosed Date Resolved Date Ovarian mass, right 09/11/2021 10/09/20 Overview (10/08/2021): 51 yo female with a 10 cm complex right ovarian mass with solid and cystic regions Acute pain suspicious for torsion or hemorrhage CA125 normal Prior hysterectomy for benign indication XLAP/BSO on 09/23/2021 Path - benign ovary with torsion Incision with superficial infection/seroma Probed with concern for loss of fascial integrity - Admit for further workup - CT scan - start Zosyn Encounters Date Type Department Care Team Description 03/03/2025 Telephone [facility] Urology [address], [address] [place] [address] Magalis Reid, COLLEGE [employer]IVERSITY FACULTY MEMBER, DNP from Last 3 Months Family History Medical History Relation Name Comments Ovarian cancer Maternal Grandmother Relation Name Status Comments Maternal Grandmother Social History Tobacco Use Types Packs/Day Years Used Date Smoking Tobacco: Every Day Cigarettes 1 30 Passive Smoke Exposure: Current Smokeless Tobacco: Never Tobacco Cessation:Ready to Q uit: Not Asked; Counseling Given: Not Answered Alcohol Use Standard Drinks/Week Comments Not Currently 0 (1 standard drink = 0.6 oz pur e alcohol) PHQ-2 Answer Date Recorded Patient Health Questionnaire-2 Score 0 11/05/2023 Comments No Sex and Gender Information Value Date Recorded Sex Assigned at Not on file Legal Sex Female 8:39 PM EDT Gender Identity Not on file Sexual Orientation Not on file Last Filed Vital Signs Vital Sign Reading Time Taken Comments Blood Pressure 133/71 11/14/2024 9:19 AM EST Pulse 86 11/14/2024 9:19 AM EST Temperature 36.6 C (97.9 F) 11/14/2024 9:19 AM EST Respiratory Rate 16 10/21/2023 1:05 PM EST Oxygen Saturation 98% 11/14/2024 9:19 AM EST Inhaled Oxygen Concentration - - Weight 128 kg (282 lb 10.1 oz) 11/14/2024 9:19 A M EST Height 170.2 cm (5' 7.01 ) 11/14/2024 9:19 AM ES T Body Mass Index 44.26 11/14/2024 9:19 AM EST Plan of Treatment Upcoming Encounters Date Type Department Care Team (Late st Contact Info) Description 06/01/2025 9:20 AM EDT Office Visit [place] [facility] [address] [place] [address] Magalis Reid, OMAR, DNP [address] [place] [address] Health Maintenance Due Date Last Done Comments [facility]-HIV Screening 1970 [facility]-/Child/Adol SDOH Screenings 1970 [facility]- SDOH Screenings 1988 [facility]-Adult SDOH Screenings 1988 [facility]-DTaP,Tdap,and Td Vaccines (1 - Tdap) 1989 [facility]-Hepatitis A Vaccines (1 of 2 - Risk 2-dose series) 1989 [facility]-Hepatitis B Vaccines (1 of 3 - 19+ 3-dose series) 1989 [facility]-Pap Smear 12/07/2000 12/07/1997 [facility]-Cervical Cancer Screening 12/07/2002 [facility]-HPV/Cotest 12/07/2002 12/07/1997 CT Colonography 2015 Colonoscopy 2015 FIT-DNA 2015 FIT 2015 FOBT 2015 Sigmoidoscopy 2015 [facility]-Colorectal Cancer Screening 2015 [facility]-Breast Cancer Screening 2020 [id number] Vaccine ( season) 2024 02/09/2021, 01/19/2021 [facility]-Depression Screening 11/05/2024 11/05/2023, 07/0 03/2022 [facility]-Lung Cancer Screening 01/04/2025 01/05/2024, [facility]-Diabetes: Hemoglobin A1C 03/03/2025, 01/15/2023, 11/27/2022, Additional history exists [facility]-Pneumococcal Vaccine: 50+ Years Completed 11/26/2022, 07/04/2022 [facility]-Hepatitis C Screening Completed 11/27/2022, [facility]-Influenza Vaccine Completed 08/30/2024 , 08/10/2024, 07/15/2023, Additional history exists [facility]-Obesity Intervention Completed 025, 11/05/2023, 10/21/2023, Additional history exists [facility]-Zoster Vaccines Completed 11/21/2024, HPV Vaccines Aged Out No longer eligi ble based on patient's age to complete this topic [facility]-HIB Vaccines Aged Out No longer e ligible based on patient's age to complete this topic [facility]-IPV Vaccines Aged Out No longer e ligible based on patient's age to complete this topic [facility]-Rotavirus Vaccines Aged Out No lo nger eligible based on patient's age to complete this topic Medical Devices Implanted Type Area Physiotherapy Aide Device Identifier Shelf Expiration Date Model / Serial / Lot Implant Implant Bilateral: Neck Implant Implant Left: Knee Joint Joint Bilateral: Hip Procedures Procedure Name Priority Date/Time Associated Diagnosis Comments HEMOGLOBIN A1C Routine 09/10/2021 3:28 PM EST Pre-operative laboratory examination HEPATITIS C ANTIBODY - ED W/REFLEX TO HCV QUANT PCR Routine 05/08/2019 11:11 PM EDT CYTO DATA CONVERSION Routine 12/07/1997 12:00 AM EST from Last 3 Months or Most Recently Relevant to Health Maintenance Results * (ABNORMAL) Hemoglobin A1c (09/10/2021 3:28 PM EST) Hemoglobin A1c 6.2(H) <5.7 % 09/10/2021 4:31 PM EST [facility] Blood Venous blood specimen / Unknown Venipuncture / Unknown 09/10/2021 3:28 PM EST 09/10/2021 3:52 PM EST Narrative [facility] - 09/10/2021 4:31 PM EST HA1C Interpretive Data: Diagnosis of Diabetes: Diabetic > or = 6.5% Pre-diabetic 5.7 to 6.4% Non-diabetic < or = 5.6% Glycemic Targets for Type I and Type II Diabetics: Non- Adults <7.0% Adults <6.0% Children and Adolescents <7.5% Source: [place] [employer]. Standards of medical care in diabetes,2017. Diabetes Care.2017:40 (suppl 1):S1-S135. HbA1c assay performed by an ion-exchange chromatography method that is certified traceable to the DCCT. Harpreet Laureano MD LAB BLOOD ORDERABLES Final Result Performing Organization Address City/[facility]/ZIP Co de Phone Number [facility] [address] [place] [address] * [place] Hepatitis C Antibody (05/08/2019 11:11 PM EDT) [place] Hepatitis C Ab NEGATIVE Reference Range: Negative [facility] 05/08/2019 11:1 1 PM EDT 05/08/2019 11:25 PM EDT Paresh Bingham LAB BLOOD ORDERABLES Final Resul t [facility] * Cytology (12/07/1997 12:00 AM EST) 12/07/1997 12/07/1997 Narrative [facility] - 12/08/1997 12:00 AM EST [facility] MR #: [id number] [facility] [place] [address] 1970 (Age: 27) FW Collect Date: 12/07/1997 00:00 Receipt Date: 12/07/1997 00:00 Page 1 DEPARTMENT OF PATHOLOGY AND LABORATORY MEDICINE CYTOPATHOLOGY REPORT Email: [email or web address] * Converted Case * This report may not match the original report format ATTENDING MD/Practitioner: Brannon Wisdom MD. Service: [facility] Location: Reported: 12/08/1997 00:00 Collected: 12/07/1997 00:00 DIAGNOSIS CEREBROSPINAL FLUID: FEW ATYPICAL CELL CLUSTERS WHICH ARE LIKELY HISTIOCYTES. CLINICAL CORRELATION IS SUGGESTED. Electronically Signed Out GENET Cochran (ASCP) Zamzam Banuelos MD DDD PROCEDURES/ADDENDA GROSS DESCRIPTION: received 1 llspin slide 4cc clear fluid. CLINICAL INFORMATION: SPECIMEN DESCRIPTION: A: CEREBROSPINAL FLUID, CSF ICD: F: {Not Entered} SNOMED CODES: 1; [id number] A resident has participated in this service. A pathologist has performed and is responsible for the reported pathologic evaluation. Historical Provider MD LAB PATHOLOGY ORDERABLES Final Result [facility] from Last 3 Months or Most Recently Relevant to Health Maintenance Insurance [employer] [facility] MEDICAID Advance Directives * Full Code (Latest Code Status on File) Date Activated Date Inactivated Comments 10/08/2021 11:36 AM 10/09/2021 6:28 PM Question Answer Comments Patient has decision-making capacity? Yes * Full Code Date Activated Date Inactivated Comments 09/23/2021 12:53 PM 09/25/2021 1:29 PM Question Answer Comments Patient has decision-making capacity? Yes Care Teams Metallurgical Inspector Relationship Specialty Start Date End Date Ronaldo Kong MD [address] [place] [address] [place] [address] PCP - General 03/01/21 Guru Ma [address] [place] [address] [address] [facility] [address] Referring Physician Obstetrics and Gynecology 09/02/21
--- OUTSIDE RECORDS SUMMARY | 2025-04-03 17:11 | XMS_ITS | Encounter Summary ---
Author Organization Healthcare Address [address] [place] [address] Care Team Providers Care Clinic Mgr Name Role Phone Ronaldo Kong MD Primary Care Provider [phone] Encounter Details Date Type Department Care Team (Late Contact Info) Description 07/08/2022 Orders Only External Location [address] [place] [address] Provider, External Social History Tobacco Use Types Packs/Day Years Used Date Smoking Tobacco: Every Day Cigarettes 1 30 Smokeless Tobacco: Never Alcohol Use Standard Drinks/Week Comments Not Currently 0 (1 standard drink = 0.6 oz pur e alcohol) PHQ-2 Answer Date Recorded Patient Health Questionnaire-2 Score 0 12/30/2021 Comments No Sex and Gender Information Value Date Recorded Sex Assigned at Not on file Legal Sex Female 8:39 PM EDT Gender Identity Not on file Sexual Orientation Not on file documented as of this encounter Plan of Treatment Upcoming Encounters Date Type Department Care Team (Late Contact Info) Description 06/01/2025 9:20 AM EDT Office Visit [place] [facility] [address] [place] [address] Magalis Reid, PHYSICIAN UNDERWRITER, DNP [address] [place] [address] documented as of this encounter Procedures Procedure Name Priority Date/Time Associated Diagnosis Comments MR HEAD W AND WO IV CONTRAST 07/08/2022 12:25 PM EDT documented in this encounter Results * MR Head w and wo IV Contrast (07/08/2022 12:25 PM EDT) Anatomical Region Laterality Modality Head Magnetic Resonan ce 07/08/2022 12:2 5 PM EDT us External Provider IMG MRI PROCEDURES Final Resul t documented in this encounter Visit Diagnoses Not on filedocumented in this encounter Additional Health Concerns Assessment Noted Time A fall risk assessment has been complete d for the patient 04/23/2022 8:05 AM EDT documented as of this encounter Care Teams Clinic Mgr Relationship Specialty Start Date End Date Ronaldo Kong MD [address] [place] [address] PCP - General 03/01/21 Guru Ma [address] [place] [address] [id number] [facility] [address] Referring Physician Obstetrics and Gynecology 09/02/21 documented as of this encounter
[2025-04-03] MEDS: METHOCARBAMOL 500MG TABLET 500 MG PO (17:21)
[2025-04-03] MEDS: ACETAMINOPHEN 500MG TAB 1000 MG PO (17:21)
[2025-04-03] MEDS: MAGNESIUM SULFATE IN WATER 2 GM/50 ML PIGGYBACK IV (17:21)
[2025-04-03] MEDS: DEXAMETHASONE 4MG/ML 5ML MDV 10 MG IV (17:22)
[2025-04-03] MEDS: KETOROLAC 30MG/ML VIAL 15 MG IV (17:23)
[2025-04-03] MEDS: PROCHLORPERAZINE 10MG/2ML VIAL 10 MG IV (17:27)
[2025-04-03 17:31] VITALS: BP 133/77; PULSE 77; O2SAT 97
[2025-04-03 17:48] VITALS: BP 143/86; PULSE 82; RESP 17; TEMP 36.7; O2SAT 99
== END 2025-04-03 17:51 | disposition home or self-care (01) ==
PROVIDERS: Emergency Provider Emergency Medicine
DX: G43.009 Migraine without aura, not intractable, without status migrainosus (principal); F17.210 Nicotine dependence, cigarettes, uncomplicated
CPT/HCPCS: 96365; 96375; 99284; J0780; J1100; J1885; J3475

== ENCOUNTER 2025-04-07 09:27 | Day surgery (SDC) | payer OTHER, SELFPAY ==
--- NOTE | 2025-04-07 09:29 | EXP.PM.HP ---
History of Present Illness *Admission Date: 04/07/25 *Reason for visit:: Intrathecal refill; DDD *History of present illness: Same [facility] Disclaimer: The information contained in this section may have been updated after the patient was seen, as this information can be updated by other users. Medical History (Updated 04/03/25 @ 17:47 by JOSE Mahajan) Knee arthropathy Hip replacement planned Pacemaker Pain of intrathecal infusion pump pocket after insertion Seizure disorder Sleep apnea Seizure HLD (hyperlipidemia) HTN (hypertension) Hx of cardiac pacemaker Diabetes mellitus, type 2 Anxiety Depression Asthma Congestive heart failure Dizziness Surgical History History of cholecystectomy History of spinal fusion History of hysterectomy History of right hip replacement History of left hip replacement History of knee replacement Family History Other Family history of diabetes mellitus type II Family history of hyperlipidemia Family history of hypertension Family history of myocardial infarction Social History Smoking Status: Current every day smoker tobacco type: cigarettes packs per day: 1 years smoked: 30 alcohol intake: never substance use type: denies use current occupational status: other Travel in the last 8 weeks?: None household members: none housing: house lives independently: Yes marital status: single education level: high school current occupational exposures/hazards: No caffeine: Yes special lai needs: No agree to transfusion: No do you feel safe at home: Yes victim of physical abuse: No victim of emotional abuse: No victim of sexual abuse: No would you like helpful sources: No Have you lived/traveled outside US in past 30 days?: No Contact w/someone who lives/traveled outside US past 30 days?: No Exposure to someone with infectious disease in past 14 days?: No Do you have a fever (greater than 100.4 F or 38 C)?: No Have you tested positive for COVID-19?: No Exposed to someone with COVID-19 in past 14 days?: No Do you have a sore throat?: No Do you have a cough?: No Do you have any weakness?: No Do you have any diarrhea?: No Are you experiencing any unusual bleeding?: No Do you have any muscle aches/pain?: No Do you have any abdominal pain?: No Are you experiencing loss of taste or smell?: No Other Medical History Have you received the Flu Vaccine for this season: No Have you received the Pneumonia Vaccine: No Review of Systems Review of Systems Review of systems:: pertinent systems reviewed and negative unless documented below Review of systems (narrative): Review of Systems: General: No recent weight changes, no fever, no sleep disturbances Respiratory: No cough, no shortness of air, no recurring pulmonary infections Cardiovascular/peripheral vascular: No chest pain, no palpitations, no edema, no shortness of breath Gastrointestinal: No new onset incontinence, normal bowel movements reported Genitourinary: No new onset incontinence Musculoskeletal: Chronic back pain Psychiatric: [Normal mood/affect] Neurological: [Denies weakness in extremities], [denies balance issues] Meds Home Medications and Allergies Home Medications ?Medication ?Instructions ?Recorded ?Confirmed ?Type aripiprazole 10 mg tablet 5 mg PO DAILY Depression 05/25/21 03/28/25 History atorvastatin 80 mg tablet 80 mg PO HS Cholesterol 05/25/21 03/28/25 History carvedilol 6.25 mg tablet 12.5 mg PO BID blood pressure 05/25/21 03/28/25 History ergocalciferol (vitamin D2) 1,250 1 tab PO WEEKLY Supplement 05/25/21 03/28/25 History mcg (50,000 unit) capsule hydroxyzine pamoate 50 mg capsule 50 mg PO TID PRN Anxiety 05/25/21 03/28/25 History lamotrigine 25 mg tablet 25 mg PO TID seizures 05/25/21 03/28/25 History levothyroxine 88 mcg capsule 88 mcg PO DAILY . 05/25/21 03/28/25 History pantoprazole 40 mg tablet,delayed 40 mg PO DAILY GERD 05/25/21 03/28/25 History release promethazine 25 mg tablet 25 mg PO Q6H PRN Nausea And 05/25/21 03/28/25 History Vomiting ropinirole 0.25 mg tablet 2 mg PO HS RLS 05/25/21 03/28/25 History venlafaxine 75 mg capsule,extended 225 mg PO DAILY Depression 05/25/21 03/28/25 History release 24 hr zonisamide 100 mg capsule 100 mg PO TID migraines/seizures 05/25/21 03/28/25 History albuterol sulfate 90 mcg/actuation 2 inh INHALATION DIRECTED . 05/27/21 03/28/25 History aerosol inhaler (ProAir HFA) cyanocobalamin (vitamin B-12) 1,000 mcg IM MONTHLY suppliment 05/27/21 03/28/25 History 1,000 mcg/mL injection solution spironolactone 25 mg tablet 25 mg PO DAILY Fluid 06/07/21 03/28/25 History methocarbamol 500 mg tablet 500 mg PO Q8HP PRN Muscle Spasm 06/02/22 03/28/25 Rx #30 tabs mirtazapine 15 mg tablet (Remeron) 15 mg PO HS sleep 10/21/22 03/28/25 History cyclobenzaprine 10 mg tablet 10 mg PO BID PRN Muscle Spasm #20 11/11/22 03/28/25 Rx tabs tizanidine 4 mg tablet (Zanaflex) 4 mg PO TID MUSCLES 12/12/22 03/28/25 History minocycline 100 mg capsule 100 mg PO DAILY Skin condition 02/13/23 03/28/25 History morphine (PF) 1 mg/mL injection 0.1 mg continuous intrathecal 02/20/23 03/28/25 History solution infusion CONT Pain baclofen 10 mg tablet 10 mg PO QID Pain #120 tabs 08/10/24 03/28/25 Rx methocarbamol 750 mg tablet 750 mg PO TID #90 tabs 02/27/25 03/28/25 Rx prednisone 20 mg tablet 20 mg PO BID #10 tabs 02/27/25 03/28/25 Rx New Prescriptions to Start Prescriptions: Allergies Allergy/AdvReac Type Severity Reaction Status Date / Time meclizine Allergy Intermediate Unknown Verified 01/27/25 09:19 allergy reaction doxycycline Allergy Mild Vomiting Verified 01/27/25 09:19 diphenhydramine (From Allergy Unknown Unknown Verified 01/27/25 09:19 BENADRYL) allergy reaction Tetanus Vaccines and Toxoid Allergy Unknown Unknown Verified 01/27/25 09:19 (TETANUS VACCINES & TOXOID) allergy reaction adhesive tape Allergy Rash Verified 01/27/25 09:19 Exam Constitutional Constitutional: no acute distress *Routine HEENT Exam Head: Present normocephalic Eye: Present PERRL ENT: Present mucous membranes moist *Routine Neck Exam Neck: Present supple *Routine Respiratory Exam Respiratory: Present CTA bilaterally *Routine Cardiovascular Exam Cardiovascular: Present RRR *Routine Abdominal Exam Abdominal: Present soft *Routine Rectal Exam Rectal:: deferred *Routine Genitalia Exam Genitalia:: deferred Routine Back/Spine/Pelvis Exam Back/Spine: Present pain with flexion *Routine Skin Exam Skin: Present intact, dry and warm *Routine Neurological Exam Neurological: Present alert and oriented X3 Routine Psychiatric Exam Psychiatric: Present normal affect and normal thought process Assessment and Plan *Assessment and plan (1) Low back pain: Status: Acute Category: Medical Code(s): M54.50 - Low back pain, unspecified (2) Degenerative joint disease (DJD) of lumbar spine: Status: Acute Qualifiers: Spinal osteoarthritis complication: with radiculopathy Qualified Code(s): M47.26 - Other spondylosis with radiculopathy, lumbar region Category: Medical Code(s): M47.816 - Spondylosis without myelopathy or radiculopathy, lumbar region Plan Patient has been instructed to contact the clinic with any concerns before the next appointment. Dr. Banerjee has reviewed this note and agrees with this plan of care. This note was dictated using voice recognition software and make contain errors or omissions. All injections are used with Lidocaine, Bupivacaine and dexamethasone. Occasionally urine drug screen is needed to verify patient's compliance with our office pain contract. This is ordered based off specific treatments related to chronic pain with the potential to abuse certain medications.
--- NOTE | 2025-04-07 09:31 | P.PCN_ITS ---
Procedure Date: 04/07/25 Time: 09:54 Anesthesiologist:: Magalis Trujillo APRN Complications:: None Pre-procedure Diagnosis:: Degenerative disc disease of lumbar spine with lumbar radiculopathy symptoms, chronic back pain Post-procedure Diagnosis:: Same Indications for Procedure:: Patient is a pleasant 54-year-old female who presents today for intrathecal refill and reprogram. Today she rates her pain a 8 out of 10. Patient has been having a lot more pain and migraines in and around her neck. Patient states that it was severe enough that she did actually come to the ER the other day and they gave a migraine cocktail that did help. Patient states that the last time she had the worsening headaches and migraines it was that her cervical spine was more cut off. She states that Dr. Solis has already gotten imaging ordered and that is next week. Patient is asking if we can do an increase on her pump. Patient is currently managed with morphine 1 mg/mL with a daily dose of 0.4154 mg/day as well as methocarbamol 750 mg 3 times a day from our office. She denies any side effects. Patient is being changed on her concentration today.Patient has prescribed gabapentin from an outside provider. Her Husam has been reviewed and is appropriate. Physical Exam: General: Alert and oriented x3, no acute distress, pleasant and cooperative Lungs: Respirations even and unlabored, symmetrical chest expansion Eyes: PERRL Musculoskeletal: Flexion and extension of lumbar [spine] somewhat guarded secondary to pain, [antalgic gait noted] Neurological: Speech clear, no gross sensory deficit Procedure Details:: Informed consent was obtained and the risk and benefits of the procedure were explained to the patient. The patient had noninvasive monitoring placed including noninvasive blood pressure cuff and pulse oximeter. Patient's pump was interrogated. The area over the pump was cleansed with chlorhexidine as a cleansing solution. In sterile fashion the pump was accessed with a 22-gauge needle. Approximately 5.2 mls of the pump solution was removed and discarded appropriately. The pump was then refilled with 20 mL's of morphine 2 mg/mL. The needle was withdrawn and a bandage was placed over the puncture site. The infusion rate was reprogrammed and increased 15% to morphine 0.4773 mg/day. The patient tolerated well with no complication. Plan and Disposition:: Patient tolerated the procedure well with no complications and was discharged neurologically intact. I will also increase her methocarbamol to 1000 mg 4 times a day as needed. Patient denies any side effects. She states she does not get drowsy with this nor does she drive. We will continue to monitor any updates related to her cervical spine imaging. Patient agrees with this plan of care. Patient will return to clinic on or before their next intrathecal refill date. We will see the patient back in the clinic at the next intrathecal refill. Patient has been instructed to contact the clinic with any concerns before the next appointment. Dr. Banerjee has reviewed this note and agrees with this plan of care. This note was dictated using voice recognition software and make contain errors or omissions. -- It Is medically necessary for this patient to continue to have their intrathecal pump refilled at regular intervals. This patient had an intrathecal pain pump implanted after meeting criteria of chronic intractable pain for greater than 3 months and failing conservative treatments. Patient has committed and been compliant to the treatment plan and all planned follow up care. Since impla ntation of the intrathecal pain pump, the patient has had decreased pain and been more functional. Oral medications have been reduced including intake of oral opioids. Patient continues to do well with intrathecal therapy with decrease in pain symptoms and increase in functional status. Stopping intrathecal medications can lead to life threatening withdrawal, seizures, cardiac arrest, severe pain, and possible . Pumps that are not refilled at regular intervals can be damages and cause and need for replacement. We continually titrate dose and concentration to optimize pain relief and function. We are limited in concentration for certain drugs to safely deliver medications through the pump and stay within the recommendations from the Polyanalgesic Consensus Committee Guidelines. Depending on dose and concentration these pumps may need to be refilled sooner than 3 months as we titrate. A UDS is needed to verify patient's compliance with our office pain contract. This is ordered based off specific treatments related to chronic pain with the potential to abuse certain medications.
[2025-04-07 09:42] VITALS: BP 112/75; PULSE 64; RESP 16; TEMP 36.5; O2SAT 96; BMI 44.6
[2025-04-07 09:48] VITALS: BP 139/46; PULSE 90; RESP 18; O2SAT 96
[2025-04-07 10:02] VITALS: BP 109/66; PULSE 64; RESP 18; O2SAT 96
== END 2025-04-07 10:02 | disposition home or self-care (01) ==
PROVIDERS: Visit Provider Nurse Practitioner Family
DX: Z45.1 Encounter for adjustment and management of infusion pump (principal); G89.29 Other chronic pain; M51.16 Intervertebral disc disorders with radiculopathy, lumbar region; M47.26 Other spondylosis with radiculopathy, lumbar region; G43.909 Migraine, unspecified, not intractable, without status migrainosus; Z95.0 Presence of cardiac pacemaker; G40.909 Epilepsy, unspecified, not intractable, without status epilepticus; G47.30 Sleep apnea, unspecified; E11.9 Type 2 diabetes mellitus without complications; E78.5 Hyperlipidemia, unspecified; I11.0 Hypertensive heart disease with heart failure; I50.9 Heart failure, unspecified; J45.909 Unspecified asthma, uncomplicated; Z98.1 Arthrodesis status; F17.210 Nicotine dependence, cigarettes, uncomplicated; Z79.899 Other long term (current) drug therapy; Z79.52 Long term (current) use of systemic steroids; Z79.890 Hormone replacement therapy; Z88.8 Allergy status to other drugs, medicaments and biological substances
CPT/HCPCS: 62370

== ENCOUNTER 2025-04-13 09:34 | Outpatient (POV) | payer OTHER, SELFPAY ==
--- OUTSIDE RECORDS SUMMARY | 2024-05-30 09:20 | XMS_ITS ---
Author Organization [facility] da Care [facility] Address [address] [place] [address] Care Team Providers Care Health Concierge Name Role Phone Harpreet Castaneda Unavailable [phone] Encounters Encounter Location Date Provider Diagnosis [facility] [address] [facility] [address] [place] [address] 05/30/2024 Harpreet Castaneda Plan Of Treatment Next Appt Details Provider Name:Harpreet Castaneda, 05/23/2025 10:40:00 AM, [address] [facility], [address], [place], [address], Progress Notes * Frannie NUÑEZDOB:[birth year] (54 yo F)Acc No.[id number]:05/30/2024 progress note Patient: Frannie ZAVALA Provider: Denzel Castaneda MD :1970 A ge:53 Y S ex:Female Date:05/30/2024 Address:[address], [id number] Subjective: * Chief Complaints: * * Medical History: Objective: * Vitals: Assessment: Plan: * Treatment: Care Plan: * Problems: * Billing Information: * Visit Code: * Procedure Codes: * Electronic signature of Cici Castaneda M.D. on 04/13/2025 at 09:38 AM EDT Sign off status: Pending * Provider: Denzel Castaneda MD Date: 0 05/30/2024 Generated for Cayla james/Linda/Krystynaitting on: 0 04/13/2025 09:38 AM EDT
--- OUTSIDE RECORDS SUMMARY | 2024-05-30 09:20 | XMS_ITS ---
Author Organization [facility] Address [address] [place] [address] Care Team Providers Care Restaurant Hourly Team Member Name Role Phone Ronaldo Kong Primary Care Provider Unavailabl Harpreet Pastrana Unavailable [phone] Jennie Royal Unavailable Unavailable Encounters Encounter Location Date Provider Diagnosis [address] [place] [address] 05/30/2024 Harpreet Castaneda Plan Of Treatment No Information Progress Notes * Frannie NUÑEZDOB:[birth year] (54 yo F)Acc No.[id number]:05/30/2024 Progress Note Patient: Frannie ZAVALA Provider: Denzel Castaneda MD :1970 A ge:53 Y S ex:Female Date:05/30/2024 Address:[address], [id number] Pcp:Ronaldo Kong Subjective: * Chief Complaints: * * Medical History: Objective: * Vitals: Assessment: Plan: * Treatment: * * Electronic signature of Cici Castaneda MD on 04/13/2025 at 08:38 AM CDT Sign off status: Pending * Provider: Denzel Castaneda MD Date: 05/30/2024 Generated for Charlottei ng/Faraineg/eTransmitting on: 04/13/2025 08:38 AM CDT
--- OUTSIDE RECORDS SUMMARY | 2025-04-13 09:38 | XMS_ITS | Encounter Summary ---
Author Organization [facility] Address [address] [place] [address] Care Team Providers Care Lpn Home Health Name Role Phone Ronaldo Kong MD Primary Care Provider [phone] Encounter Details Date Type Department Care Team (Late st Contact Info) Description 03/03/2025 Telephone [facility] [address] [place] [address] Magalis Reid, DATA ENTRY ASSOCIATE, DNP [address] [place] [address] Social History Tobacco Use Types [...] to reschedule UDS. thanks Best contact number: [phone] (mobile) Optimal time of day to reach [...] Description 06/01/2025 9:20 AM EDT Office Visit [facility] [address] [place] [address] Magalis Reid, DATA ENTRY ASSOCIATE, DNP [address] [place] [address] documented as of this encounter Visit Diagnoses Not on filedocumented in this encounter Additional Health Concerns Assessment Noted Time A fall risk assessment has been complete d for the patient 10/02/2023 1:33 PM EST A Body Mass Index follow-up plan has been documented for the patient 11/14/2024 1:45 PM EST documented as of this encounter Care Teams Lpn Home Health Relationship Specialty Start Date End Date Ronaldo Kong MD [address] [place] [address] [place] [address] PCP - General 03/01/21 Guru Ma [address] [place] [address] [facility] [address] Referring Physician Obstetrics and Gynecology 09/02/21 documented as of this encounter
--- OUTSIDE RECORDS SUMMARY | 2025-04-13 09:38 | XMS_ITS | Patient Health Record ---
Author Organization [facility] . Address [address] [place] [address] Care Team Providers Care Hook Tender Name Role Phone Ronaldo Kong Primary Care Provider Unavailabl Harpreet Pastrana Unavailable [phone] Jennie Royal Unavailable Unavailable Allergies Allergen (clinical [...] MG 1 tablet Oral ly Once a day; Duration: 30 day(s) Active Nurtec 75 MG 1 tablet on the tongue and allow to dissolve Orally; Duration: 30 day(s) Active Spironolactone 50 MG 1 tablet Orally Once a day Active ARIPiprazole 5 MG 1 tablet Orally Once a day Active Potassium Chloride ER 20 MEQ 1 tablet wi th food Orally Twice a day; Duration: 2 days 12/01/2022 Active Emgality 120 MG/ML 1 ml Subcutaneous; Duration: 30 day(s) Active rOPINIRole HCl 2 MG 2 tablet 1 to 3 hours before bedtime Orally Once a day Active hydroCHLOROthiazide 25 MG 1 tablet in th e morning Orally Once a day; Duration: 30 day(s) Active Zonisamide 100 MG 1 capsule Orally Three times daily Active Remeron 15 MG 1 tablet at bedtime Orally Once a day; Duration: 30 day(s) Active Carvedilol 12.5 MG 1 tablet with food Orally Twice a day Active ZyrTEC Allergy 10 MG 1 tablet Orally Once a day; Duration: 30 day(s) Active lamoTRIgine 25 MG 3 tablet Once a day Active Venlafaxine HCl ER 150 MG 1 capsule with food Orally Once a day; Duration: 30 day(s) Active Pantoprazole Sodium 40 MG 1 tablet Orall y Twice daily Active buPROPion HCl ER (Smoking Det) 150 MG 1 tablet in the morning Orally Once a day; Duration: 30 day(s) Active Levothyroxine Sodium 88 MCG 1 tablet in the morning on an empty stomach Orally Once a day; Duration: 30 day(s) Active Albuterol Sulfate HFA 108 (9 0 Base) MCG/ACT 1 puff as needed Inhalation [...] W/U Status Risk Notes Problem 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 Problem Type 2 diabetes mellitus (74732967) Type 2 diabetes mellitus (E11.9) Active confirmed Problem Hypertension (65857927) HTN (hypertension) (I10) Active confirmed Problem Morbid obesity (826608639) Morbid obesity (E66.01) Active confirmed Problem Obstructive sleep apnea syndrome (19370590) BRENDA (obstructive sleep apnea) (G47.33) Active confirmed Problem Obese (937446912) Obese (E66.9) Active confirmed Problem Brain tumor (759930481) Brain tumor (D49.6) Active confirmed Problem Chronic kidney disease stage 2 (451666709) Chronic kidney disease (CKD) stage G2/A1, mildly decreased glomerular filtration rate (GFR) between 60-89 mL/min/1.73 square meter and albuminuria creatinine ratio less than 30 mg/g (N18.2) Active confirmed Problem Obstructive sleep apnea syndrome (82278992) BRENDA (obstructive sleep apnea) (G47.33) Active confirmed Plan Of Treatment Pending Test Test Name Order Date CBC WITH DIFF 11/30/2023 CBC WITH DIFF 06/01/2023 IRON, TIBC AND FERRITIN PANEL 11/30/2023 IRON, TIBC AND FERRITIN PANEL 07/29/2022 CMP14+eGFR 07/29/2022 CMP14+eGFR 11/30/2023 CMP14+eGFR 12/01/2022 CMP14+eGFR 08/01/2021 URINALYSIS COMPLETE 08/01/2021 URINALYSIS COMPLETE 06/01/2023 URINALYSIS COMPLETE 11/30/2023 URINALYSIS COMPLETE 05/30/2021 CBC W AUTOMATED DIFFERENTIAL 05/30/2021 CBC W AUTOMATED DIFFERENTIAL 07/29/2022 CBC W AUTOMATED DIFFERENTIAL 12/01/2022 CBC W AUTOMATED DIFFERENTIAL 08/01/2021 HGB A1C (GLYCOHEMOGLOBIN) 12/01/2022 HGB A1C (GLYCOHEMOGLOBIN) 11/30/2023 BMP 05/30/2021 BMP 06/01/2023 Future Test Test Name Order Date Urinalysis, Complete 07/29/2022 .Renal Function Panel 07/29/2022 HGB & HCT 07/29/2022 Insurance Providers Payer Name Payer Address Payer Phone Subscriber Number Group Number Insured Name Patient Relationship to Insured Coverage Start Date Coverage End Date Michael [employer] [place] ([place]) [address] [address] [place] [address] [id number] Frannie Nuñez Self - patient is the insured Medical (General) History Medical History History ICD Code Anemia Avitaminosis B 12 deficiency Carotid artery stenosis CHF 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
--- OUTSIDE RECORDS SUMMARY | 2025-04-13 09:38 | XMS_ITS | Patient Health Record ---
Author Organization [facility] Address [address] [facility] [address] [place] [address] Care Team Providers Care Returns Processor Name Role Phone Harpreet Castaneda [phone] Allergies Allergen (clinical drug ingredient) Drug/Non Drug [...] and allow to dissolve Orally; Duration: 30 days As needed Active Spironolactone 50 MG 1 tablet Orally Onc e a day Active Emgality 120 MG/ML 1 ml Subcutaneous; Duration: 30 day(s) Active rOPINIRole HCl 2 MG 2 tablet 1 to 3 hour s before bedtime Orally Once a day Active ARIPiprazole 5 MG 1 tablet Orally Once a day Active Albuterol Sulfate HFA 108 (90 Base) MCG/ACT 1 puff as needed Inhalation every 4 hrs Not-Arnulfo g buPROPion HCl ER (Smoking Det) 150 MG 1 tablet in the morning Orally Once a day; Duration: 30 day(s) Active Rosuvastatin Calcium 40 MG 1 tablet Oral ly Once a day 11/22/2024 Active Baclofen 10 MG 1 tablet Orally four times a day Active ZyrTEC Allergy 10 MG 1 tablet Orally Onc e a day; Duration: 30 day(s) Active Pantoprazole Sodium 40 MG 1 tablet Orall y Once a day Active Zonisamide 100 MG 1 capsule Orally Thr ee times daily Active Carvedilol 12.5 MG 1 tablet with food Orally Twice a day Active Problems Problem Type SNOMED Code ICD Code Onset Dates Problem Status W/U Status Risk Notes Problem Analgesic nephropathy (98300349) 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 Problem Morbid obesity (428590025) Morbid obesity (E66.01) Active confirmed Problem Type 2 diabetes mellitus (32990641) Type 2 diabetes mellitus (E11.9) Active confirmed Problem Hypertension (13800785) HTN (hypertension) (I10) Active confirmed Problem Brain tumor (997602832) Brain tumor (D49.6) Active confirmed Problem Obstructive sleep apnea syndrome (65961494) BRENDA (obstructive sleep apnea) (G47.33) Active confirmed Problem Obese (707015084) Obese (E66.9) Active confirmed Problem Chronic kidney disease stage 2 (186663139) Chronic kidney disease stage 2 (N18.2) Active confirmed Problem Obstructive sleep apnea syndrome (97647952) BRENDA (obstructive sleep apnea) (G47.33) Active confirmed [...] 11/22/2024 Encounters Encounter Location Date Provider Diagnosis [facility] [address] [place] [address] 11/22/2024 Harpreet Castaneda Chronic kidney disease stage [...] COMPLETE 08/01/2021 URINALYSIS COMPLETE 05/30/2021 URINALYSIS COMPLETE 06/01/2023 URINALYSIS COMPLETE 11/30/2023 CBC W AUTOMATED DIFFERENTIAL 07/29/2022 CBC W AUTOMATED DIFFERENTIAL 05/30/2021 CBC W AUTOMATED DIFFERENTIAL 08/01/2021 CBC W AUTOMATED DIFFERENTIAL 12/01/2022 HGB A1C (GLYCOHEMOGLOBIN) 12/01/2022 HGB A1C (GLYCOHEMOGLOBIN) 11/30/2023 BMP 05/30/2021 BMP 06/01/2023 Future Test Test Name Order Date Urinalysis, Complete 07/29/2022 .Renal Function Panel 07/29/2022 HGB & HCT 07/29/2022 Next Appt Details Provider Name:Harpreet Castaneda, 05/23/2025 10:40:00 AM, [address], [place], [address], Insurance Providers Payer Name Payer Address Payer Phone Subscriber Number Group Number Insured Name Patient Relationship to Insured Coverage Start Date Coverage End Date [employer] [facility] [address] [place] [phone] [id number] Massimo chacon Frannie Self - patient is the insured Medical (General) History Medical History History ICD Code Anemia Avitaminosis B 12 deficiency Carotid artery stenosis CHF 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
--- OUTSIDE RECORDS SUMMARY | 2025-04-13 09:38 | XMS_ITS | Encounter Summary ---
Author Organization [facility] Address [address] [place] [address] Care Team Providers Care Garment Supervisor Name Role Phone Ronaldo Kong MD Primary Care Provider [phone] Encounter Details Date Type Department Care Team (Late Contact Info) Description 07/08/2022 Orders Only External Location [address] [place] [address] Provider, External Social History Tobacco Use Types [...] Description 06/01/2025 9:20 AM EDT Office Visit [facility] [address] [place] [address] Magalis Reid, TRAFFIC SURVEY TECHNICIAN, DNP [address] [place] [address] documented as of this encounter Procedures Procedure [...] documented as of this encounter Care Teams Garment Supervisor Relationship Specialty Start Date End Date Ronaldo Kong MD [address] [place] [address] PCP - General 03/01/21 Guru Ma [address] [place] [address] [address] [facility] [address] Referring Physician Obstetrics and Gynecology 09/02/21 documented as of this encounter
--- OUTSIDE RECORDS SUMMARY | 2025-04-13 09:38 | XMS_ITS | Clinical Summary ---
Author Organization [facility] Address [address] [place] [address] Care Team Providers Care Photolettering Machine Operator Name Role Phone Ronaldo Kong MD Primary Care Provider [phone] Allergies Active Allergy Reactions Criticality Noted Date [...] 150mg Active ergocalciferol (Vitamin D-2) 1.25 MG (20118 UT) capsule Take 1 capsule (50,000 Units) [...] 09/14/20 23 Active Vitamin D3 1.25 MG (53806 UT) capsule 09/14/20 23 Active potassium chloride [...] drinking soda. She has not utilized any hkwa-wvf-gdncjmm medications such as AZO for her symptoms. [...] Type Department Care Team Description 03/03/2025 Telephone [facility] Urology [address], [address] [place] [address] Magalis Reid, INORGANIC CHEMICAL TECHNICIAN, DNP from Last 3 Months Family History [...] Office Visit [facility] [address] [place] [address] Magalis Reid, OMAR, DNP [address] [place] [address] Health Maintenance Due Date Last Done Comments [...] Cancer Screening 2015 [facility]-Breast Cancer Screening 2020 [id number] Vaccine (3 - Pfizer risk series) 03/09/2021 02/09/2021, 01/19/2021 [facility]-Depression Screening 11/05/2024 11/05/2023, 07/0 [...] this topic Medical Devices Implanted Type Area Coil Shaper Device Identifier Shelf Expiration Date Model / [...] PM EST 09/10/2021 3:52 PM EST Narrative [facility] - 09/10/2021 4:31 PM EST HA1C Interpretive Data: Diagnosis of Diabetes: Diabetic > or = 6.5% Pre-diabetic 5.7 to 6.4% Non-diabetic < or = 5.6% Glycemic Targets for Type I and Type II Diabetics: Non- Adults <7.0% Adults <6.0% Children and Adolescents <7.5% Source: [place] Of [place] Diabetes Association. Standards of medical care in diabetes,2017. Diabetes Care.2017:40 (suppl 1):S1-S135. HbA1c assay performed by an ion-exchange chromatography method that is certified traceable to the DCCT. Harpreet Laureano MD LAB BLOOD ORDERABLES Final Result [facility] [address] [place], [place] [id number] * [place] Hepatitis C Antibody (05/08/2019 11:11 PM EDT) [place] Hepatitis C Ab NEGATIVE Reference Range: Negative SUNQUEST 05/08/2019 11:1 1 PM EDT 05/08/2019 11:25 PM EDT Paresh Bingham LAB BLOOD ORDERABLES Final Resul t SUNQUEST * Cytology (12/07/1997 12:00 AM EST) 12/07/1997 12/07/1997 Narrative SUNQUEST - 12/08/1997 12:00 AM EST [facility] MR #: [id number] [facility]ANNIE [facility] [place] [id number] 1970 (Age: 27) FW Collect Date: 12/07/1997 00:00 Receipt Date: 12/07/1997 00:00 Page 1 DEPARTMENT OF PATHOLOGY AND LABORATORY MEDICINE CYTOPATHOLOGY REPORT Email: [email or web address] * Converted Case * This report may [...] ICD: F: {Not Entered} SNOMED CODES: 1; F81843 [id number] A resident has participated in this service. A pathologist has performed and is responsible for the reported pathologic evaluation. Historical Provider MD LAB PATHOLOGY ORDERABLES Final Result VON from Last 3 Months or Most Recently Relevant to Health Maintenance Insurance AETNA [facility] MEDICAID Advance Directives * Full Code (Latest Code Status on File) Date Activated Date Inactivated Comments 10/08/2021 11:36 AM 10/09/2021 6:28 PM Question Answer Comments Patient has decision-making capacity? Yes * Full Code Date Activated Date Inactivated Comments 09/23/2021 12:53 PM 09/25/2021 1:29 PM Question Answer Comments Patient has decision-making capacity? Yes Care Teams Photolettering Machine Operator Relationship Specialty Start Date End Date Ronaldo Kong MD [address] [place] [address] [place] [address] PCP - General 03/01/21 Guru Ma [address] [place] [address] [address] [facility] [address] Referring Physician Obstetrics and Gynecology 09/02/21
--- NOTE | 2025-04-13 10:06 | EXP.PAIN.PRO ---
Procedure Date: 04/13/25 Time: 10:06 Anesthesiologist:: Magalis Trujillo APRN Complications:: None Pre-procedure Diagnosis:: Degenerative disc disease of lumbar spine, sacroiliitis, chronic pain syndrome Post-procedure Diagnosis:: Same Indications for Procedure:: Patient is a pleasant 54-year-old female who presents today for intrathecal adjustment and reprogram as well as follow-up from her bilateral SI injections on 03/28/2025. She does state that she has had at least 75 to 80% improvement following these injections. Patient does however feel like it really gave significant relief for a few days. She does state that the pain is not as severe or not as constant but it is still present. Patient is currently managed with intrathecal morphine 2 mg/mL with a daily dose of 0.4154 mg/day. She denies any side effects. Her Husam has been reviewed and is appropriate. Physical Exam: General: Alert and oriented x3, no acute distress, pleasant and cooperative Lungs: Respirations even and unlabored, symmetrical chest expansion Eyes: PERRL Musculoskeletal: Flexion and extension of lumbar [spine] somewhat guarded secondary to pain, [antalgic gait noted] Neurological: Speech clear, no gross sensory deficit Procedure Details:: Informed consent was obtained and the risk and benefits of the procedure were explained to the patient. Patient did have noninvasive monitoring was placed including noninvasive blood pressure cuff and pulse oximeter. Patient's pump was interrogated and was reprogrammed to morphine 0.5724 mg/day. The patient tolerated the procedure well with no complications. Plan and Disposition:: Patient tolerated the procedure well with no complications and was discharged neurologically intact. Patient will return to clinic on or before their next intrathecal refill date. We will see the patient back in the clinic at the next intrathecal refill. Patient has been instructed to contact the clinic with any concerns before the next appointment. Dr. Banerjee has reviewed this note and agrees with this plan of care. This note was dictated using voice recognition software and make contain errors or omissions. -- It Is medically necessary for this patient to continue to have their intrathecal pump refilled at regular intervals. This patient had an intrathecal pain pump implanted after meeting criteria of chronic intractable pain for greater than 3 months and failing conservative treatments. Patient has committed and been compliant to the treatment plan and all planned follow up care. Since implantation of the intrathecal pain pump, the patient has had decreased pain and been more functional. Oral medications have been reduced including intake of oral opioids. Patient continues to do well with intrathecal therapy with decrease in pain symptoms and increase in functional status. Stopping intrathecal medications can lead to life threatening withdrawal, seizures, cardiac arrest, severe pain, and possible . Pumps that are not refilled at regular intervals can be damages and cause and need for replacement. We continually titrate dose and concentration to optimize pain relief and function. We are limited in concentration for certain drugs to safely deliver medications through the pump and stay within the recommendations from the Polyanalgesic Consensus Committee Guidelines. Depending on dose and concentration these pumps may need to be refilled sooner than 3 months as we titrate. A UDS is needed to verify patient's compliance with our office pain contract. This is ordered based off specific treatments related to chronic pain with the potential to abuse certain medications.
[2025-04-13 11:11] VITALS: BP 133/78; PULSE 80; RESP 14; O2SAT 97; BMI 44.3
== END 2025-04-13 23:59 | disposition home or self-care (01) ==
PROVIDERS: Visit Provider Nurse Practitioner Family
DX: M51.369 Other intervertebral disc degeneration, lumbar region without mention of lumbar back pain or lower extremity pain (principal); M46.1 Sacroiliitis, not elsewhere classified
CPT/HCPCS: 62368; 99213; G0463

== ENCOUNTER 2025-04-25 12:44 | Outpatient (CLI) | payer OTHER, SELFPAY ==
--- OUTSIDE RECORDS SUMMARY | 2024-05-30 09:20 | XMS_ITS ---
Author Organization [facility] da Care [facility] Address [address] [place] [address] Care Team Providers Care Rubber Ball Finisher Name Role Phone Harpreet Castaneda Unavailable [phone] Encounters Encounter Location Date Provider Diagnosis [facility] [address] [facility] [address] [place] [address] 05/30/2024 Harpreet Castaneda Plan Of Treatment Next Appt Details Provider Name:Harpreet Castaneda, 05/23/2025 10:40:00 AM, [address] [facility], [address], [place], [address], Progress Notes * Frannie NUÑEZDOB:[birth year] (54 yo F)Acc No.[id number]:05/30/2024 progress note Patient: Frannie ZAVALA Provider: Denzel Castaneda MD :1970 A ge:53 Y S ex:Female Date:05/30/2024 Address:[address], [id number] Subjective: * Chief Complaints: * * Medical History: Objective: * Vitals: Assessment: Plan: * Treatment: Care Plan: * Problems: * Billing Information: * Visit Code: * Procedure Codes: * Electronic signature of Cici Castaneda M.D. on 04/25/2025 at 12:47 PM EDT Sign off status: Pending * Provider: Denzel Castaneda MD Date: 0 05/30/2024 Generated for Cayla james/Linda/Reina on: 0 04/25/2025 12:47 PM EDT
--- OUTSIDE RECORDS SUMMARY | 2024-05-30 09:20 | XMS_ITS ---
Author Organization [facility] Address [address] [place] [address] Care Team Providers Care Construction Foreman Name Role Phone Ronaldo Kong Primary Care Provider Unavailabl Harpreet Pastrana Unavailable [phone] Jennie Royal Unavailable Unavailable Encounters Encounter Location Date Provider Diagnosis [address] [place] [address] 05/30/2024 Harpreet Castaneda Plan Of Treatment No Information Progress Notes * Frannie NUÑEZDOB:[birth year] (54 yo F)Acc No.[id number]:05/30/2024 Progress Note Patient: Frannie ZAVALA Provider: Denzel Castaneda MD :1970 A ge:53 Y S ex:Female Date:05/30/2024 Address:[address], [id number] Pcp:Ronaldo Kong Subjective: * Chief Complaints: * * Medical History: Objective: * Vitals: Assessment: Plan: * Treatment: * * Electronic signature of Cici Castaneda MD on 04/25/2025 at 11:47 AM CDT Sign off status: Pending * Provider: Denzel Castaneda MD Date: 05/30/2024 Generated for Cayla james/Linda/eTransmitting on: 04/25/2025 11:47 AM CDT
--- NOTE | 2025-04-25 12:47 | CT_ITS ---
FINAL REPORT CLINICAL HISTORY: SCREENING current smoker 1.5ppd x33 years FINDINGS: CTDI vol (mGy): 2.90 DLP: 96.[address] images of the chest were obtained using the low-dose protocol for screening. There is no evidence of mediastinal or hilar mass or adenopathy. No axillary mass or adenopathy is identified. On the lung window images, 2 nodules are seen in the right middle lobe. The larger of the 2, measuring 4 mm is best seen on image 49 of series 4. The smaller nodule, measuring 3 mm is seen on image 53 of series 4. There is also a 6 mm left lower lobe nodule seen on image 19 of series 4. There is a questionable trace left pleural effusion. IMPRESSION: 6 mm left upper lobe nodule. Trace left pleural effusion. Lung RADS category 3S . Recommend 6 month followup low-dose CT for further evaluation. Reviewed, Interpreted and Dictated by Paulie Branham MD Transcribed by Reva De Authenticated and [facility]
--- OUTSIDE RECORDS SUMMARY | 2025-04-25 12:47 | XMS_ITS | Patient Health Record ---
Author Organization [facility] . 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 Problem Type 2 diabetes mellitus (47712669) Type 2 diabetes mellitus (E11.9) Active confirmed Problem Hypertension (53695278) HTN (hypertension) (I10) Active confirmed Problem Morbid obesity (305454154) Morbid obesity (E66.01) Active confirmed Problem Obstructive sleep apnea syndrome (64372500) BRENDA (obstructive sleep apnea) (G47.33) Active confirmed Problem Obese (656567517) Obese (E66.9) Active confirmed Problem Brain tumor (296856312) Brain tumor (D49.6) Active confirmed Problem Chronic kidney disease stage 2 (748098990) Chronic kidney disease (CKD) stage G2/A1, mildly decreased glomerular filtration rate (GFR) between 60-89 mL/min/1.73 square meter and albuminuria creatinine ratio less than 30 mg/g (N18.2) Active confirmed Problem Obstructive sleep apnea syndrome (70619570) BRENDA (obstructive sleep apnea) (G47.33) Active confirmed Plan Of Treatment Pending Test Test Name Order Date CBC WITH DIFF 06/01/2023 CBC WITH DIFF 11/30/2023 IRON, TIBC AND FERRITIN PANEL 07/29/2022 IRON, TIBC AND FERRITIN PANEL 11/30/2023 CMP14+eGFR 11/30/2023 CMP14+eGFR 12/01/2022 CMP14+eGFR 08/01/2021 CMP14+eGFR 07/29/2022 URINALYSIS COMPLETE 06/01/2023 URINALYSIS COMPLETE 11/30/2023 URINALYSIS COMPLETE 08/01/2021 URINALYSIS COMPLETE 05/30/2021 CBC W AUTOMATED DIFFERENTIAL 05/30/2021 CBC W AUTOMATED DIFFERENTIAL 12/01/2022 CBC W AUTOMATED DIFFERENTIAL 08/01/2021 CBC W AUTOMATED DIFFERENTIAL 07/29/2022 HGB A1C (GLYCOHEMOGLOBIN) 11/30/2023 HGB A1C (GLYCOHEMOGLOBIN) 12/01/2022 BMP 06/01/2023 BMP 05/30/2021 Future Test Test Name Order Date Urinalysis, Complete 07/29/2022 .Renal Function Panel 07/29/2022 HGB & HCT 07/29/2022 Insurance Providers Payer Name Payer Address Payer Phone Subscriber Number Group Number Insured Name Patient Relationship to Insured Coverage Start Date Coverage End Date Michael [place] ([place] [address] [address] [place] [address] [id number] Frannie Nuñez Self - patient is the insured Medical (General) History Medical History History ICD Code Anemia Avitaminosis B 12 deficiency Carotid artery stenosis CHF 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
--- OUTSIDE RECORDS SUMMARY | 2025-04-25 12:47 | XMS_ITS | Clinical Summary ---
Author Organization [facility] Address [address] [place] [address] Care Team Providers Care Synoptic Meteorologist Name Role Phone Ronaldo Kong MD Primary Care Provider [phone] Allergies Active Allergy Reactions Criticality Noted Date [...] 150mg Active ergocalciferol (Vitamin D-2) 1.25 MG (99657 UT) capsule Take 1 capsule (50,000 Units) [...] 09/14/20 23 Active Vitamin D3 1.25 MG (94662 UT) capsule 09/14/20 23 Active potassium chloride [...] drinking soda. She has not utilized any sbbr-qub-vqigwru medications such as AZO for her symptoms. [...] Type Department Care Team Description 03/03/2025 Telephone [facility] Urology [address], [address] [place] [address] Magalis Reid, SHOPPING CENTRE MANAGER, DNP from Last 3 Months Family History [...] Office Visit [place] [facility] [address] [place] [address] Magalis Reid, OMAR, DNP [address] [place] [address] Health Maintenance Due Date Last Done Comments [...] Cancer Screening 2015 [facility]-Breast Cancer Screening 2020 [id number] Vaccine (3 - Pfizer risk series) 03/09/2021 02/09/2021, 01/19/2021 [facility]-Depression Screening 11/05/2024 11/05/2023, 07/0 03/2022 [facility]-Lung Cancer Screening 01/04/2025 01/05/2024, [facility]-Diabetes: Hemoglobin A1C 03/03/2025, 01/15/2023, 11/27/2022, Additional history exists [facility]-Influenza Vaccine (#1) 06/19/202508/30, 08/10/2024, 07/15/2023, Additional history exists [facility]-Pneumococcal Vaccine: 50+ Years Completed 11/26/2022, 07/04/2022 [facility]-Hepatitis C Screening Completed 11/27/2022, [facility]-Obesity Intervention Completed 025, 11/05/2023, 10/21/2023, Additional [...] this topic Medical Devices Implanted Type Area Market Director Device Identifier Shelf Expiration Date Model / [...] Adults <6.0% Children and Adolescents <7.5% Source: [place] Diabetes Association. Standards of medical care in diabetes,2017. Diabetes Care.2017:40 (suppl 1):S1-S135. HbA1c assay performed by an ion-exchange chromatography method that is certified traceable to the DCCT. Harpreet Laureano MD LAB BLOOD ORDERABLES Final Result [facility] [address] [place] [address] * [place] Hepatitis C Antibody (05/08/2019 11:11 PM EDT) [place] Hepatitis C Ab NEGATIVE Reference Range: Negative SUNQUEST 05/08/2019 11:1 1 PM EDT 05/08/2019 11:25 PM EDT Paresh Bingham LAB BLOOD ORDERABLES Final Resul t SUNQUEST * Cytology (12/07/1997 12:00 AM EST) 12/07/1997 12/07/1997 Narrative SUNQUEST - 12/08/1997 12:00 AM EST [facility] MR #: [id number] [facility] FRANNIE NUÑEZ [place] [address] 1970 (Age: 27) FW Collect Date: 12/07/1997 00:00 Receipt Date: 12/07/1997 00:00 Page 1 DEPARTMENT OF PATHOLOGY AND LABORATORY MEDICINE CYTOPATHOLOGY REPORT Email: [email or web address] * Converted Case * This report may [...] ICD: F: {Not Entered} SNOMED CODES: 1; K63149 [id number] [id number] A resident has participated in this service. A pathologist has performed and is responsible for the reported pathologic evaluation. Historical Provider MD LAB PATHOLOGY ORDERABLES Final Result VON from Last 3 Months or Most Recently Relevant to Health Maintenance Insurance AETNA [facility] MEDICAID Advance Directives * Full Code (Latest Code Status on File) Date Activated Date Inactivated Comments 10/08/2021 11:36 AM 10/09/2021 6:28 PM Question Answer Comments Patient has decision-making capacity? Yes * Full Code Date Activated Date Inactivated Comments 09/23/2021 12:53 PM 09/25/2021 1:29 PM Question Answer Comments Patient has decision-making capacity? Yes Care Teams Synoptic Meteorologist Relationship Specialty Start Date End Date Ronaldo Kong MD [address] [place] [address] [place] [address] PCP - General 03/01/21 Guru Ma [address] [place] [address] [address] [facility] [address] Referring Physician Obstetrics and Gynecology 09/02/21
--- OUTSIDE RECORDS SUMMARY | 2025-04-25 12:47 | XMS_ITS | Patient Health Record ---
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 Problem Morbid obesity (842697471) Morbid obesity (E66.01) Active confirmed Problem Type 2 diabetes mellitus (05946681) Type 2 diabetes mellitus (E11.9) Active confirmed Problem Hypertension (38099439) HTN (hypertension) (I10) Active confirmed Problem Brain tumor (818776640) Brain tumor (D49.6) Active confirmed Problem Obstructive sleep apnea syndrome (42170724) BRENDA (obstructive sleep apnea) (G47.33) Active confirmed Problem Obese (349274126) Obese (E66.9) Active confirmed Problem Chronic kidney disease stage 2 (749771489) Chronic kidney disease stage 2 (N18.2) Active confirmed Problem Obstructive sleep apnea syndrome (24429044) BRENDA (obstructive sleep apnea) (G47.33) Active confirmed [...] 11/22/2024 Encounters Encounter Location Date Provider Diagnosis [facility] [address] [place] [address] 11/22/2024 Harpreet Castaneda Chronic kidney disease stage [...] (14) 11/22/2024 Urinalysis 11/22/2024 CBC WITH DIFF 06/01/2023 CBC WITH DIFF 11/30/2023 IRON, TIBC AND FERRITIN PANEL 11/30/2023 IRON, TIBC AND FERRITIN PANEL 07/29/2022 CMP14+eGFR 08/01/2021 CMP14+eGFR 12/01/2022 CMP14+eGFR 07/29/2022 CMP14+eGFR 11/30/2023 URINALYSIS COMPLETE 11/30/2023 URINALYSIS COMPLETE 06/01/2023 URINALYSIS COMPLETE 08/01/2021 URINALYSIS COMPLETE 05/30/2021 CBC W AUTOMATED DIFFERENTIAL 05/30/2021 CBC W AUTOMATED DIFFERENTIAL 08/01/2021 CBC W AUTOMATED DIFFERENTIAL 07/29/2022 CBC W AUTOMATED DIFFERENTIAL 12/01/2022 HGB A1C (GLYCOHEMOGLOBIN) 12/01/2022 HGB A1C (GLYCOHEMOGLOBIN) 11/30/2023 BMP 05/30/2021 BMP 06/01/2023 Future Test Test Name Order Date Urinalysis, Complete 07/29/2022 .Renal Function Panel 07/29/2022 HGB & HCT 07/29/2022 Next Appt Details Provider Name:Harpreet Castaneda, 05/23/2025 10:40:00 AM, [address], [place], [address], Insurance Providers Payer Name Payer Address Payer Phone Subscriber Number Group Number Insured Name Patient Relationship to Insured Coverage Start Date Coverage End Date Aetna 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
--- OUTSIDE RECORDS SUMMARY | 2025-04-25 12:47 | XMS_ITS | Encounter Summary ---
Author Organization [facility] Address [address] [place] [address] Care Team Providers Care Client Service Associate Name Role Phone Ronaldo Kong MD Primary Care Provider [phone] Encounter Details Date Type Department Care Team (Late st Contact Info) Description 03/03/2025 Telephone [facility] [address] [place] [address] Magalis Reid, MASTER POLICE DETECTIVE, DNP [address] [place] [address] Social History Tobacco Use Types [...] to reschedule UDS. thanks Best contact number: [phone] (mobile) Optimal time of day to reach [...] Description 06/01/2025 9:20 AM EDT Office Visit [facility] [address] [place] [address] Magalis Reid, MASTER POLICE DETECTIVE, DNP [address] [place] [address] documented as of this encounter Visit Diagnoses Not on filedocumented in this encounter Additional Health Concerns Assessment Noted Time A fall risk assessment has been complete d for the patient 10/02/2023 1:33 PM EST A Body Mass Index follow-up plan has been documented for the patient 11/14/2024 1:45 PM EST documented as of this encounter Care Teams Client Service Associate Relationship Specialty Start Date End Date Ronaldo Kong MD [address] [place] [address] [place] [address] PCP - General 03/01/21 Guru Ma [address] [place] [address] [address] [facility] [address] Referring Physician Obstetrics and Gynecology 09/02/21 documented as of this encounter
--- OUTSIDE RECORDS SUMMARY | 2025-04-25 12:47 | XMS_ITS | Encounter Summary ---
Author Organization [facility] Address [address] [place] [address] Care Team Providers Care Diesel Locomotive Firer/Fireman Name Role Phone Ronaldo Kong MD Primary Care Provider [phone] Encounter Details Date Type Department Care Team (Late Contact Info) Description 07/08/2022 Orders Only External Location [address] [place] [address] Provider, External Social History Tobacco Use Types [...] Description 06/01/2025 9:20 AM EDT Office Visit [facility] [facility] [address] [place] [address] Magalis Reid, CASHIERS SUPERVISOR, DNP [address] [place] [address] documented as of this encounter Procedures Procedure [...] documented as of this encounter Care Teams Diesel Locomotive Firer/Fireman Relationship Specialty Start Date End Date Ronaldo Kong MD [address] [place] [address] PCP - General 03/01/21 Guru Ma [address] [place] [address] [facility] [address] Referring Physician Obstetrics and Gynecology 09/02/21 documented as of this encounter
== END 2025-04-25 23:59 | disposition home or self-care (01) ==
LOC: RAD 12:45
DX: R91.1 Solitary pulmonary nodule (principal); Z12.2 Encounter for screening for malignant neoplasm of respiratory organs
CPT/HCPCS: 71271

== ENCOUNTER 2025-05-11 10:35 | Outpatient (POV) | payer OTHER, SELFPAY ==
--- OUTSIDE RECORDS SUMMARY | 2024-05-30 09:20 | XMS_ITS ---
Author Organization [facility] Address [address] [place] [address] Care Team Providers Care Radiologic Tech Name Role Phone Ronaldo Kong Primary Care Provider Unavailabl Harpreet Pastrana Unavailable [phone] Jennie Royal Unavailable Unavailable Encounters Encounter Location Date Provider Diagnosis [address] [place] [address] 05/30/2024 Harpreet Castaneda Plan Of Treatment No Information Progress Notes * Frannie NUÑEZDOB:[birth year] (54 yo F)Acc No.[id number]:05/30/2024 Progress Note Patient: Frannie ZAVALA Provider: Denzel Castaneda MD :1970 A ge:53 Y S ex:Female Date:05/30/2024 Address:[address], [id number] Pcp:Ronaldo Kong Subjective: * Chief Complaints: * * Medical History: Objective: * Vitals: Assessment: Plan: * Treatment: * * Electronic signature of Cici Castaneda MD on 05/11/2025 at 09:42 AM CDT Sign off status: Pending * Provider: Denzel Castaneda MD Date: 05/30/2024 Generated for Charlottei ng/Faraineg/eTransmitting on: 05/11/2025 09:42 AM CDT
--- OUTSIDE RECORDS SUMMARY | 2024-05-30 09:20 | XMS_ITS ---
Author Organization [facility] da Care [facility] Address [address] [place] [address] Care Team Providers Care Compressor Mechanic Name Role Phone Harpreet Castaneda Unavailable [phone] Encounters Encounter Location Date Provider Diagnosis [facility] Care [facility] [address] [facility] [address] [place] [address] 05/30/2024 Harpreet Castaneda Plan Of Treatment Next Appt Details Provider Name:Harpreet Castaneda, 05/23/2025 10:40:00 AM, [address] [facility], [address], [place], [address], Progress Notes * Frannie NUÑEZDOB:[birth year] (54 yo F)Acc No.[id number]:05/30/2024 progress note Patient: Frannie ZAVALA Provider: Denzel Castaneda MD :1970 A ge:53 Y S ex:Female Date:05/30/2024 Address:[address], [id number] Subjective: * Chief Complaints: * * Medical History: Objective: * Vitals: Assessment: Plan: * Treatment: Care Plan: * Problems: * Billing Information: * Visit Code: * Procedure Codes: * Electronic signature of Cici Castaneda M.D. on 05/11/2025 at 10:42 AM EDT Sign off status: Pending * Provider: Denzel Castaneda MD Date: 0 05/30/2024 Generated for Cayla james/Linda/Krystynaitting on: 0 05/11/2025 10:42 AM EDT
--- OUTSIDE RECORDS SUMMARY | 2025-04-04 11:30 | XMS_ITS | Encounter Summary ---
[facility] Address [address] [place] [address] Care Team Providers Care Light Adjuster Name Role Phone System, Provider Not In Primary Care Provider Un available Reason for Visit * Reason Comments Palpitations Reports heart rate d ropping low 70s and upper 60s. Hypertension Pt states blood pres sure is running 130s/80s Fatigue Pt reports feeling sluggish for about 3 weeks. Encounter Details Date Type Department Care Team (Late st Contact Info) Description 04/04/2025 11:30 AM EDT Office Visit [facility] [place] [address] [place] [address] Dania Gray APRN [address] [place] [address] Primary hypertension; Acute midline low back pain without sciatica Social History Tobacco Use Types Packs/Day Years Used Date Smoking Tobacco: Every Day Cigarettes 0.5 15 Passive Smoke Exposure: Current Smokeless Tobacco: Never Comments:Patient trying to q uit. Alcohol Use Standard Drinks/Week Comments Not Currently 0 (1 standard drink = 0.6 oz pur e alcohol) AUDIT-C Answer Date Recorded Q1: How often do you have a drink containing alcohol? Never 01/15/2023 Q2: How many drinks containi ng alcohol do you have on a typical day when you are drinking? Patient does not drink Q3: How often do you have si x or more drinks on one occasion? Never 01/15/2023 PHQ-2 Answer Date Recorded Retired PHQ-9: Brief Depression Severity Measure Score 0 05/18/2023 Abuse Screen Answer Date Recorded Feels Unsafe at Home or Work/School no 03/03/2024 Feels Threatened by Someone no 02/16 Does Anyone Try to Keep You From Having Contact with Others or Doing Things Outside Your Home? no 03/03/2024 Physical Signs of Abuse Present no 03/03/2024 Housing Stability Answer Date Recorded Current Living Arrangements home 02/17 Potentially Unsafe Housing Conditions Not on sammy e 03/10/2024 Disabilities Answer Date Recorded Concentrating, Remembering, or Making Decisions Difficulty Not on file 03/10/2024 Difficulty Managing Errands Independently no 03/10/2024 Education Answer Date Recorded Help with school or training? Not on file Preferred Language Brazilian 03/03/2024 PHQ-2 Answer Date Recorded Retired PHQ-9: Brief Depression Severity Measure Score 14 07/18/2024 Comments No Sex and Gender Information Value Date Recorded Sex Assigned at Female 03/08/2025 7:42 AM EDT Legal Sex Female 12:37 PM EDT Gender Identity Not on file Sexual Orientation Not on file documented as of this encounter Last Filed Vital Signs Vital Sign Reading Time Taken Comments Blood Pressure 144/84 04/04/2025 11:32 AM EDT Pulse 87 04/04/2025 11:32 AM EDT Temperature - - Respiratory Rate - - Oxygen Saturation 97% 04/04/2025 11:32 AM EDT Inhaled Oxygen Concentration - - Weight 129 kg (284 lb 8 oz) 04/04/2025 11:32 AM EDT Height 162.6 cm (5' 4 ) 04/04/2025 11:32 AM EDT Body Mass Index 48.83 04/04/2025 11:32 AM EDT documented in this encounter Progress Notes * Dania Gray, OMAR - 04/04/2025 11:30 AM EDT Images from the original note were not included. Date: 04/04/2025 Name: Frannie Nuñez : 1970 PCP: System, Provider Not In REF: No ref. provider found Sleep and/or Cardiology Consulting Provider Note ..Palpitations (Reports heart rate dropping low 70s and upper 60s.), Hypertension (Pt states blood pressure is running 130s/80s), and Fatigue (Pt reports feeling sluggish for about 3 weeks. ) History of Present Illness The patient is a 54-year-old female who presents today for blood pressure issues. She has been experiencing lethargy for the past 3 weeks, which she attributes to her current medication regimen. On 03/31/2025, she experienced dizziness upon standing and walking, necessitating support from nearby objects. Her blood pressure was recorded as 133/86 with a heart rate of 71, which she perceives as low given her usual heart rate of 110 to 112 (before meds were started). She is currently on carvedilol and spironolactone, which she believes may be contributing to her symptoms. She has been monitoring her heart rate and has noticed fluctuations between the upper 60s and lower 70s. Despite being aware of the risks of self-adjusting her medication, she reduced her carvedilol dosageon 03/31/2025, taking one tablet at night and spironolactone in the morning. This adjustment did not significantly alter her symptoms. She has been off lisinopril for approximately 6 months and is considering resuming it to manage her blood pressure. She reports no chest pain or breathing difficulties but has noticed increased swelling, particularly after consuming cottage cheese. She also experiences palpitations, which she tends to ignore. Additionally, she reports lower back pain, which she believes may be contributing to her elevated blood pressure and heart rate. An MRI of her lower back is scheduled for 04/11/2025. The 10-year ASCVD risk score (Rebecca DIXON, et al., 2019) is: 14.5% Values used to calculate the score: Age: 54 years Sex: Female Is Non- : No Diabetic: Yes Tobacco smoker: Yes Systolic Blood Pressure: 144 mmHg Is BP treated: Yes HDL Cholesterol: 36 mg/dL Total Cholesterol: 139 mg/dL Cardiology and Sleep Related History: Review of Systems -no chest pain, shortness of air, or syncope. Cardiac/Sleep history 1. Hypertension 2. Congestive heart failure - EF 45% on nuclear stress but subsequently normal, last echo 08-10 diastolic dysfunction only, EF 65 3. High cholesterol 4. Sleep apnea 5. Sick sinus syndrome status post [facility] pacemaker placement 08/12/2022 03/01/25 Echo ?? Left ventricular systolic function is normal. Calculated left ventricular EF = 64.4% Left ventricular ejection fraction appears to be 61 - 65%. ?? Left ventricular diastolic function was indeterminate. ?? Mild to moderate mitral valve regurgitation is present. ?? Mild pulmonary hypertension is present. *[facility] 01/15/23- Angiographically normal coronary arteries. Normal left ventricular systolic function. Medications Discontinued During This Encounter Medication Reason metOLazone (ZAROXOLYN) 2.5 MG tablet *Therapy completed lisinopril (PRINIVIL,ZESTRIL) 10 MG tablet *Therapy completed Allergies Allergen Reactions Diphenhydramine Hives Adhesive Tape Rash OK with paper tape Bactrim [Sulfamethoxazole-Trimethoprim] Nausea Only Doxycycline Nausea Only Meclizine Rash Metformin Nausea Only Ozempic (0.25 Or 0.5 Mg-Dose) [Semaglutide(0.25 Or 0.5mg-Dos)] Nausea And Vomiting Tetanus Immune Globulin Hives Tetanus Toxoids Hives Current Outpatient Medications: albuterol sulfate HFA 108 (90 Base) MCG/ACT inhaler, , Disp: , Rfl: aspirin 81 MG EC tablet, Take 1 tablet by mouth Daily., Disp: , Rfl: baclofen (LIORESAL) 10 MG tablet, Take 1 tablet by mouth 4 (Four) Times a Day., Disp: , Rfl: busPIRone (BUSPAR) 5 MG tablet, Take 1 tablet by mouth 2 (Two) Times a Day., Disp: , Rfl: carvedilol (COREG) 12.5 MG tablet, TAKE ONE TABLET BY MOUTH 2 TIMES A DAY, Disp: 60 tablet, Rfl: 5 cetirizine (zyrTEC) 10 MG tablet, TAKE ONE TABLET BY MOUTH ONCE A DAY, Disp: 30 tablet, Rfl: 3 cholecalciferol (VITAMIN D3) 1.25 MG (94935 UT) capsule, Take 1 capsule by mouth Every 7 (Seven) Days., Disp: , Rfl: Continuous Glucose Sensor ([employer] G6 Sensor), See Admin Instructions., Disp: , Rfl: desvenlafaxine (PRISTIQ) 100 MG 24 hr tablet, Take 1 tablet by mouth Daily., Disp: , Rfl: dexlansoprazole (DEXILANT) 60 MG capsule, TAKE ONE CAPSULE BY MOUTH ONCE a DAY, Disp: , Rfl: Emgality 120 MG/ML auto-injector pen, Inject 1 mL under the skin into the appropriate area as directed Every 30 (Thirty) Days. Last dose 07/25/23, Disp: , Rfl: famotidine (PEPCID) 20 MG tablet, Take 1 tablet by mouth 2 (Two) Times a Day., Disp: , Rfl: fluticasone (FLONASE) 50 MCG/ACT nasal spray, USE 2 SPRAYS IN EACH NOSTRIL ONCE A DAY NEEDED FORALLERGIES, Disp: 16 g, Rfl: 3 folic acid (FOLVITE) 1 MG tablet, Take 1 tablet by mouth Daily., Disp: 90 tablet, Rfl: 3 furosemide (LASIX) 20 MG tablet, TAKE ONE TABLET BY MOUTH 2 TIMES A DAY. TAKE ONE TABLET NEEDED FOR AGRESSIVE EDEMA OR WEIGHT GAIN GREATER THAN 2 POUNDS OVER 24 HOURS, Disp: 60 tablet, Rfl: 0 lamoTRIgine (LaMICtal) 150 MG tablet, Take 1 tablet by mouth Daily. 2 tablets once daily, Disp: , Rfl: Motegrity 2 MG tablet, Take 1 tablet by mouth Daily., Disp: , Rfl: nicotine polacrilex (COMMIT) 4 MG lozenge, DISSOLVE 1 lozenge BY MOUTH EVERY 1 TO 2 HOURS DO not exceed more THAN 20 PER DAY, Disp: , Rfl: Nurtec 75 MG dispersible tablet, Take 75 tablets by mouth As Needed. As needed, Disp: , Rfl: nystatin (MYCOSTATIN) 049680 UNIT/GM powder, Apply topically to the appropriate area as directed 3 (Three) Times a Day., Disp: 60 g, Rfl: 1 ondansetron ODT (ZOFRAN-ODT) 8 MG disintegrating tablet, Place 1 tablet on the tongue Every 8 (Eight) Hours As Needed for Nausea., Disp: 20 tablet, Rfl: 0 QUEtiapine (SEROquel) 50 MG tablet, , Disp: , Rfl: rOPINIRole (REQUIP) 2 MG tablet, Take 2 tablets by mouth every night at bedtime., Disp: , Rfl: rosuvastatin (CRESTOR) 20 MG tablet, Take 1 tablet by mouth Daily., Disp: , Rfl: Semaglutide,0.25 or 0.5MG/DOS, (OZEMPIC) 2 MG/1.5ML solution pen-injector, Inject 0.25 mg under theskin into the appropriate area as directed 1 (One) Time Per Week., Disp: , Rfl: spironolactone (ALDACTONE) 50 MG tablet, Take 1 tablet by mouth Daily., Disp: 90 tablet, Rfl: 3 Syringe/Needle, Disp, (B-D 3CC LUER-ARSALAN SYR 25GX1 ) 25G X 1 3 ML misc, USE WITH B12 INJECTION, Disp: 1 each, Rfl: 2 Trelegy Ellipta 100-62.5-25 MCG/ACT inhaler, , Disp: , Rfl: vitamin B-12 (CYANOCOBALAMIN) 1000 MCG tablet, TAKE 1 TABLET BY MOUTH ONCE A DAY BEFORE meals, Disp: , Rfl: zonisamide (ZONEGRAN) 100 MG capsule, Take 530 mg by mouth 3 (Three) Times a Day., Disp: , Rfl: Past Medical History: Diagnosis Date Acute sinusitis, unspecified Arthropathy of cervical spine Asthma Atherosclerosis of other arteries Bronchitis, chronic Candidiasis of skin and nail Candidiasis of vulva and vagina Chest pain, unspecified Chronic diastolic (congestive) heart failure Chronic obstructive pulmonary disease, unspecified Degenerative disc disease, cervical Depression Dyspepsia Dysphasia Dyspnea, unspecified Dysthymic disorder Elevated cholesterol Fibromyalgia Foot drop, bilateral Gastritis Generalized anxiety disorder Hiatal hernia Hidradenitis suppurativa History of nuclear stress test 03/13/2023 Hypertension Hypothyroidism Infectious mononucleosis Local edema Migraines Mild hyperlipidemia Nausea and vomiting 03/20/2023 Obesity Obstructive sleep apnea (adult) (pediatric) uses Bipap Occlusion and stenosis of left carotid artery Other difficulties with micturition feel like has to go but can't Other iron deficiency anemias Other specified disorders of veins Pain in left knee Personal history of colonic polyps PONV (postoperative nausea and vomiting) Seizures Has not had a seizure in 3 years Shingles LUMBAR REGION Solitary pulmonary nodule Syncopal episodes Tinea unguium Type 2 diabetes mellitus Unilateral primary osteoarthritis, left knee states its everywhere Vitamin D deficiency Patient Active Problem List Diagnosis Abdominal wall seroma Arthropathy of cervical spine Asthma Bronchitis, chronic Candidiasis of skin and nail Candidiasis of vulva and vagina Chronic diastolic (congestive) heart failure Depression Dyspepsia Degenerative disc disease, cervical Endometriosis Fibromyalgia Generalized anxiety disorder Hiatal hernia Hidradenitis suppurativa Hypertension Hypothyroidism Mild hyperlipidemia Morbid (severe) obesity due to excess calories BRENDA (obstructive sleep apnea) Occlusion and stenosis of left carotid artery Other difficulties with micturition Other iron deficiency anemias Other specified disorders of veins Pain in left knee Personal history of colonic polyps Shingles Syncopal episodes Tinea unguium Type 2 diabetes mellitus without complication, without long-term current use of insulin Unilateral primary osteoarthritis, left knee Vitamin D deficiency Seizure disorder Dizziness Bradycardia Sick sinus syndrome Chest pain Hypokalemia RLS (restless legs syndrome) B12 deficiency Cigarette smoker motivated to quit Rosacea Tinea corporis Migraine without aura and without status migrainosus, not intractable Encounter for pre-operative cardiovascular clearance Gastritis without bleeding Acute cystitis with hematuria Status post left heart catheterization History of nuclear stress test Stasis edema of both lower extremities Urinary retention Nausea and vomiting Pacemaker Orthopnea Swelling OAB (overactive bladder) Shortness of breath Swelling of lower extremity Left foot pain Inadequately controlled diabetes mellitus Gastroesophageal reflux disease Encounter for general adult medical examination with abnormal findings Allergic rhinitis Screening for lung cancer BRENDA treated with BiPAP Encounter for screening mammogram for malignant neoplasm of breast Postmenopausal Pain in both lower extremities Diabetic polyneuropathy associated with type 2 diabetes mellitus Vascular claudication Drug withdrawal syndrome Preop examination Primary osteoarthritis of right knee Chronic pain of right knee Acute kidney injury Candidal intertrigo Nausea Constipation Acute low back pain Family History Problem Relation Age of Onset Mental illness Mother Glaucoma Mother Hyperlipidemia Mother Hypertension Mother Heart attack Father Coronary artery disease Father 50 CABG Hypertension Brother Other Brother GLUCOSE INTOLERANCE Hypertension Brother Other Brother GLUCOSE INTOLERANCE Hypertension Brother family history includes Coronary artery disease (age of onset: 50) in her father; Glaucoma in her mother; Heart attack in her father; Hyperlipidemia in her mother; Hypertension in her brother, brother, brother, and mother; Mental illness in her mother; Other in her brother and brother. Social History Socioeconomic History Marital status: Tobacco Use Smoking status: Every Day Current packs/day: 0.50 Average packs/day: 0.5 packs/day for 15.0 years (7.5 ttl pk-yrs) Types: Cigarettes Passive exposure: Current Smokeless tobacco: Never Tobacco comments: Patient trying to quit. Vaping Use Vaping status: Never Used Substance and Sexual Activity Alcohol use: Not Currently Drug use: Never Sexual activity: Defer Vital Signs: BP 144/84 (BP Location: Right arm, Patient Position: Sitting, Cuff Size: Adult) Pulse 87 Ht 162.6 cm (64 ) Wt 129 kg (284 lb 8 oz) SpO2 97% BMI 48.83 kg/m?? Estimated body mass index is 48.83 kg/m?? as calculated from the following: Height as of this encounter: 162.6 cm (64 ). Weight as of this encounter: 129 kg (284 lb 8 oz). Physical Exam Blood Pressure: 144/84 Heart Rate: 87 Heart: No murmur heard Lungs: Lungs clear bilaterally Musculoskeletal: No bruit, no edema Results Assessment and Plan Diagnoses and all orders for this visit: 1. Primary hypertension 2. Acute midline low back pain without sciatica Assessment & Plan 1. Hypertension: - Resume carvedilol dosage: one tablet in the morning, spironolactone at noon, and another carvedilol tablet at night. - Monitor blood pressure and heart rate, maintain a log of readings and overall health status. - Abstain from consuming cottage cheese during this period. - If regimen proves ineffective, consider replacing carvedilol with metoprolol once daily. - Risks, benefits, and alternatives of treatment were discussed, including the potential for excessive lowering of heart rate with current medication regimen and the option to switch to metoprolol ifnecessary. 2. Lower back pain: - MRI of the lower back scheduled for 04/11/2025 to investigate the cause of the pain. May be contributing to her labile blood pressure and heart rate Follow-up: - Follow up in 3 weeks. Recommendations: ER if symptoms increase and Report if any new/changing symptoms immediately Follow Up Return for 3 weeks for blood pressure and symptom recheck; has pacemaker check already scheduled May 15. Patient or patient telesales representative verbalized consent for the use of Ambient Listening during the visit with Dania Gray APRN for chart documentation. 04/04/2025 12:23 EDT Dania Gray APRN 04/04/2025 Please note that this explicitly excludes time spent on other separate billable services such as performing procedures or test interpretation, when applicable. This note was created using dictation software which occasionally transcribes nonsensical phrases. Please contact the provider if any clarification is needed. documented in this encounter Plan of Treatment Upcoming Encounters Date Type Department Care Team (Late st Contact Info) Description 05/16/2025 11:00 AM EDT Office Visit [facility] C[facility]IOLOGY [address] [place] [phone] Daphney Hall MD [address] [place] [address] documented as of this encounter Visit Diagnoses Diagnosis Primary hypertension Unspecified essential hypertension Acute midline low back pain without sciatica documented in this encounter Additional Health Concerns Assessment Noted Time PHQ-2 Depression Total Score: 3 07/18/20 24 11:28 AM EDT documented as of this encounter Care Teams Light Adjuster Relationship Specialty Start Date End Date System, [place] [address] PCP - General 02/14/25 documented as of this encounter
--- OUTSIDE RECORDS SUMMARY | 2025-05-11 10:42 | XMS_ITS | Patient Health Record ---
Author Organization [facility], [facility] . 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 Problem Type 2 diabetes mellitus (24903543) Type 2 diabetes mellitus (E11.9) Active confirmed Problem Hypertension (58042975) HTN (hypertension) (I10) Active confirmed Problem Morbid obesity (764445052) Morbid obesity (E66.01) Active confirmed Problem Obstructive sleep apnea syndrome (79043157) BRENDA (obstructive sleep apnea) (G47.33) Active confirmed Problem Obese (767655374) Obese (E66.9) Active confirmed Problem Brain tumor (118250074) Brain tumor (D49.6) Active confirmed Problem Chronic kidney disease stage 2 (873463901) Chronic kidney disease (CKD) stage G2/A1, mildly decreased glomerular filtration rate (GFR) between 60-89 mL/min/1.73 square meter and albuminuria creatinine ratio less than 30 mg/g (N18.2) Active confirmed Problem Obstructive sleep apnea syndrome (99903605) BRENDA (obstructive sleep apnea) (G47.33) Active confirmed Plan Of Treatment Pending Test Test Name Order Date CBC WITH DIFF 06/01/2023 CBC WITH DIFF 11/30/2023 IRON, TIBC AND FERRITIN PANEL 11/30/2023 IRON, TIBC AND FERRITIN PANEL 07/29/2022 CMP14+eGFR 07/29/2022 CMP14+eGFR 08/01/2021 CMP14+eGFR 12/01/2022 CMP14+eGFR 11/30/2023 URINALYSIS COMPLETE 06/01/2023 URINALYSIS COMPLETE 08/01/2021 URINALYSIS COMPLETE 11/30/2023 URINALYSIS COMPLETE 05/30/2021 CBC W AUTOMATED DIFFERENTIAL 05/30/2021 CBC W AUTOMATED DIFFERENTIAL 08/01/2021 CBC W AUTOMATED DIFFERENTIAL 12/01/2022 CBC W AUTOMATED DIFFERENTIAL 07/29/2022 HGB A1C (GLYCOHEMOGLOBIN) 12/01/2022 HGB A1C (GLYCOHEMOGLOBIN) 11/30/2023 BMP 05/30/2021 BMP 06/01/2023 Future Test Test Name Order Date Urinalysis, Complete 07/29/2022 .Renal Function Panel 07/29/2022 HGB & HCT 07/29/2022 Insurance Providers Payer Name Payer Address Payer Phone Subscriber Number Group Number Insured Name Patient Relationship to Insured Coverage Start Date Coverage End Date Michael [place] ([place] [address] [address] [place] [address] [id number] Frannie Nuñez Self - patient is the insured Medical (General) History Medical History History ICD Code Anemia Avitaminosis B 12 deficiency Carotid artery stenosis CHF 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
--- OUTSIDE RECORDS SUMMARY | 2025-05-11 10:42 | XMS_ITS | Encounter Summary ---
[facility] Address [address] [place] [phone] Care Team Providers Care Lodging House Keeper Name Role Phone System, Provider Not In Primary Care Provider Un available Reason for Visit * Reason Comments Med Refill Encounter Details Date Type Department Care Team (Late st Contact Info) Description 05/04/2025 Refill [facility] PRIMARY CARE [address] [place] [address] [place] [address] Ronaldo Kong MD [address] [place] [address] [place] [address] Social History Tobacco Use Types Packs/Day Years [...] or training? Not on file Preferred Language Macedonian 03/03/2024 PHQ-2 Answer Date Recorded Retired PHQ-9: [...] Description 05/16/2025 11:00 AM EDT Office Visit [facility] [place]ARDIOLOGY [address] [place] [address] Daphney Hall MD [address] [place] [address] documented as of this encounter Visit Diagnoses Not on filedocumented in this encounter Additional Health Concerns Assessment Noted Time PHQ-2 Depression Total Score: 3 07/18/20 24 11:28 AM EDT documented as of this encounter Care Teams Lodging House Keeper Relationship Specialty Start Date End Date System, [place] [address] PCP - General 02/14/25 documented as of this encounter
--- OUTSIDE RECORDS SUMMARY | 2025-05-11 10:42 | XMS_ITS | Encounter Summary ---
[facility] Address [address] [place] [phone] Care Team Providers Care Controls Project Engineer Name Role Phone System, Provider Not In Primary Care Provider Un available Reason for Visit * Reason Comments Med Refill Encounter Details Date Type Department Care Team (Late st Contact Info) Description 04/14/2025 Refill [facility] CARDIOLOGY [address] [place] [address] Daphney Hall MD [address] [place] [address] Med Refill Social History Tobacco Use Types Packs/Day Years [...] or training? Not on file Preferred Language Ugandan 03/03/2024 PHQ-2 Answer Date Recorded Retired PHQ-9: [...] Description 05/16/2025 11:00 AM EDT Office Visit [facility] [place]ARDIOLOG[facility] [address] [place] [address] Daphney Hall MD [address] [place] [address] documented as of this encounter Visit Diagnoses Not on filedocumented in this encounter Additional Health Concerns Assessment Noted Time PHQ-2 Depression Total Score: 3 07/18/20 24 11:28 AM EDT documented as of this encounter Care Teams Controls Project Engineer Relationship Specialty Start Date End Date System, [place] [address] PCP - General 02/14/25 documented as of this encounter
--- OUTSIDE RECORDS SUMMARY | 2025-05-11 10:42 | XMS_ITS | Encounter Summary ---
[facility] Address [address] [place] [phone] Care Team Providers Care Baked Goods Stock Clerk Name Role Phone System, Provider Not In Primary Care Provider Un available Reason for Visit * Reason Comments Med Refill Encounter Details Date Type Department Care Team (Late st Contact Info) Description 03/16/2025 Refill [facility] CARDIOLOG[facility] [address] [place] [address] Daphney Hall MD [address] [place] [address] Med Refill Social History Tobacco Use [...] or training? Not on file Preferred Language Trinidadian 03/03/2024 PHQ-2 Answer Date Recorded Retired PHQ-9: [...] Description 05/16/2025 11:00 AM EDT Office Visit [facility] [address] [place] [address] Daphney Hall MD [address] [place] [address] documented as of this encounter Visit Diagnoses Not on filedocumented in this encounter Additional Health Concerns Assessment Noted Time PHQ-2 Depression Total Score: 3 07/18/20 24 11:28 AM EDT documented as of this encounter Care Teams Baked Goods Stock Clerk Relationship Specialty Start Date End Date System, [place] [address] PCP - General 02/14/25 documented as of this encounter
--- OUTSIDE RECORDS SUMMARY | 2025-05-11 10:42 | XMS_ITS | Encounter Summary ---
[facility] Address [address] [place] [phone] Care Team Providers Care Senior Recruiter Name Role Phone System, Provider Not In Primary Care Provider Un available Reason for Visit * Reason Comments Med Refill Encounter Details Date Type Department Care Team (Late st Contact Info) Description 03/12/2025 Refill [facility] CARDIOLOGY [address] [place] [address] Dania Gray APRN [address] [place] [address] Med Refill Social History Tobacco Use [...] or training? Not on file Preferred Language Turkish 03/03/2024 PHQ-2 Answer Date Recorded Retired PHQ-9: [...] Description 05/16/2025 11:00 AM EDT Office Visit [facility] CARDIOLOGY [address] [place] [address] Daphney Hall MD [address] [place] [address] documented as of this encounter Visit Diagnoses Not on filedocumented in this encounter Additional Health Concerns Assessment Noted Time PHQ-2 Depression Total Score: 3 07/18/20 24 11:28 AM EDT documented as of this encounter Care Teams Senior Recruiter Relationship Specialty Start Date End Date System, [place] [address] PCP - General 02/14/25 documented as of this encounter
--- OUTSIDE RECORDS SUMMARY | 2025-05-11 10:42 | XMS_ITS | Encounter Summary ---
[facility] [address] [place] [address] Care Team Providers Care Morals Squad Police Officer Name Role Phone System, Provider Not In Primary Care Provider Un available Encounter Details Date Type Department Care Team (Latest Contact Info) Description 04/04/2025 Travel Social History Tobacco Use Types Packs/Day Years [...] or training? Not on file Preferred Language Bruneian 03/03/2024 PHQ-2 Answer Date Recorded Retired PHQ-9: [...] Description 05/16/2025 11:00 AM EDT Office Visit [facility] C[facility]IOLOG[facility] [address] [phone] Daphney Hall MD [address] [place] [address] documented as of this encounter Visit Diagnoses Not on filedocumented in this encounter Additional Health Concerns Assessment Noted Time PHQ-2 Depression Total Score: 3 07/18/20 24 11:28 AM EDT documented as of this encounter Care Teams Morals Squad Police Officer Relationship Specialty Start Date End Date System, [place] [address] PCP - General 02/14/25 documented as of this encounter
--- OUTSIDE RECORDS SUMMARY | 2025-05-11 10:42 | XMS_ITS | Encounter Summary ---
[facility] Address [address] [place] [address] Care Team Providers Care Wood Pile Driver Operator Name Role Phone System, Provider Not In Primary Care Provider Un available Encounter Details Date Type Department Care Team (Late st Contact Info) Description 03/08/2025 Results Follow-Up [facility] CARDIOLOGY [address] [place] [address] Daphney Hall MD [address] [place] [address] Social History Tobacco Use Types Packs/Day Years [...] or training? Not on file Preferred Language Fijian 03/03/2024 PHQ-2 Answer Date Recorded Retired PHQ-9: [...] Description 05/16/2025 11:00 AM EDT Office Visit [facility] CARDIOLOG[facility] [address] [place] [address] Daphney Hall MD [address] [place] [address] documented as of this encounter Visit Diagnoses Not on filedocumented in this encounter Additional Health Concerns Assessment Noted Time PHQ-2 Depression Total Score: 3 07/18/20 24 11:28 AM EDT documented as of this encounter Care Teams Wood Pile Driver Operator Relationship Specialty Start Date End Date System, [place] [address] PCP - General 02/14/25 documented as of this encounter
--- OUTSIDE RECORDS SUMMARY | 2025-05-11 10:42 | XMS_ITS | Encounter Summary ---
[facility] [address] [place] [phone] Care Team Providers Care Boat Outboard Engine Mechanic Name Role Phone System, Provider Not In Primary Care Provider Un available Reason for Visit * Reason Onset Date Comments DR. HALL-TEST RESULTS 02/14/2025 Encounter Details Date Type Department Care Team (Late st Contact Info) Description 02/14/2025 Telephone [facility] CARDIOLOGY [address] [place] [address] Daphney Hall MD [address] [place] [address] DR. HALL-TEST RESULTS Social History Tobacco Use Types Packs/Day Years [...] or training? Not on file Preferred Language Icelandic 03/03/2024 PHQ-2 Answer Date Recorded Retired PHQ-9: Brief Depression Severity Measure Score 14 07/18/2024 Comments No Sex and Gender Information Value Date Recorded Sex Assigned at Female 03/08/2025 7:42 AM EDT Legal Sex Female 12:37 PM EDT Gender Identity Not on file Sexual Orientation Not on file documented as of this encounter Miscellaneous Notes * Telephone Encounter - Lucero Avelar RN - 02/14/2025 1:54 PM EDT Faxed request to [facility] for BNP lab. * Telephone Encounter - Lucero Avelar RN - 02/14/2025 12:15 PM EDT Pt last seen by Dinorah on 02/08/25; echo scheduled for 02/23/25 and follow up with Dr. Hall 03/08/25.Please advise. * Telephone Encounter - Lucero Avelar RN - 02/14/2025 11:19 AM EDT Called [facility] to have CXR faxed to our office; called pt to advise her awaiting report. * Telephone Encounter - Desi Lorenz RegSched Rep - 02/14/2025 10:23 AM EDT Caller: Frannie Nuñez Relationship: Self Best call back number: [phone] Caller requesting test results: What test was performed: LABS CHEST XRAY When was the test performed: LAST WEEK Where was the test performed: [facility] Additional notes: PLEASE CALL WITH RESULTS documented in this encounter Plan of Treatment Upcoming Encounters Date Type Department Care Team (Late st Contact Info) Description 05/16/2025 11:00 AM EDT Office Visit [facility] CARDIOLOGY [address] [place] [address] Daphney Hall MD [address] [place] [address] documented as of this encounter Visit Diagnoses Not on filedocumented in this encounter Additional Health Concerns Assessment Noted Time PHQ-2 Depression Total Score: 3 07/18/20 24 11:28 AM EDT documented as of this encounter Care Teams Boat Outboard Engine Mechanic Relationship Specialty Start Date End Date System, [place] [address] PCP - General 02/14/25 documented as of this encounter
--- OUTSIDE RECORDS SUMMARY | 2025-05-11 10:42 | XMS_ITS | Clinical Summary ---
Author Organization [facility] Address [address] [place] [address] Care Team Providers Care Firewood Cutter Name Role Phone Ronaldo Kong MD Primary Care Provider [phone] Allergies Active Allergy Reactions Criticality Noted Date [...] 150mg Active ergocalciferol (Vitamin D-2) 1.25 MG (61292 UT) capsule Take 1 capsule (50,000 Units) [...] 09/14/20 23 Active Vitamin D3 1.25 MG (65566 UT) capsule 09/14/20 23 Active potassium chloride [...] drinking soda. She has not utilized any dnxo-vud-rdggzln medications such as AZO for her symptoms. [...] Type Department Care Team Description 03/03/2025 Telephone [facility] Urology [address] [place] [address] Magails Reid, ART OBJECTS REPAIRER, DNP from Last 3 Months Family History [...] Office Visit [facility] [address] [place] [address] Magalis Reid, OMAR, DNP [address] [place] [address] Health Maintenance Due Date Last Done Comments [...] Cancer Screening 2015 [facility]-Breast Cancer Screening 2020 [id number] Vaccine (3 - Pfizer risk series) 03/09/2021 [...] this topic Medical Devices Implanted Type Area Flag Decorator Device Identifier Shelf Expiration Date Model / [...] Adults <6.0% Children and Adolescents <7.5% Source: [place] [employer]. Standards of medical care in diabetes,2017. Diabetes Care.2017:40 (suppl 1):S1-S135. HbA1c assay performed by an ion-exchange chromatography method that is certified traceable to the DCCT. Harpreet Laureano MD LAB BLOOD ORDERABLES Final Result [facility] [address] [place] [address] * [place] Hepatitis C Antibody (05/08/2019 11:11 PM EDT) [place] Hepatitis C Ab NEGATIVE Reference Range: Negative [facility] 05/08/2019 11:1 1 PM EDT 05/08/2019 11:25 PM EDT Paresh Bingham LAB BLOOD ORDERABLES Final Resul t [facility] * Cytology (12/07/1997 12:00 AM EST) 12/07/1997 12/07/1997 Narrative [facility] - 12/08/1997 12:00 AM EST [facility] MR #: [id number] [facility] FRANNIE NUÑEZ [place] [id number] 1970 (Age: 27) FW Collect Date: 12/07/1997 00:00 Receipt Date: 12/07/1997 00:00 Page 1 DEPARTMENT OF PATHOLOGY AND LABORATORY MEDICINE CYTOPATHOLOGY REPORT Email: [email or web address] * Converted Case * This report may [...] ICD: F: {Not Entered} SNOMED CODES: 1; [id number] A resident has participated in this service. A pathologist has performed and is responsible for the reported pathologic evaluation. Historical Provider MD LAB PATHOLOGY ORDERABLES Final Result VON from Last 3 Months or Most Recently Relevant to Health Maintenance Insurance [employer] [facility] MEDICAID Advance Directives * Full Code (Latest Code Status on File) Date Activated Date Inactivated Comments 10/08/2021 11:36 AM 10/09/2021 6:28 PM Question Answer Comments Patient has decision-making capacity? Yes * Full Code Date Activated Date Inactivated Comments 09/23/2021 12:53 PM 09/25/2021 1:29 PM Question Answer Comments Patient has decision-making capacity? Yes Care Teams Firewood Cutter Relationship Specialty Start Date End Date Ronaldo Kong MD [address] [place] [address] [place] [address] PCP - General 03/01/21 Guru Ma [address] [place] [address] [id number] [facility] [address] Referring Physician Obstetrics and Gynecology 09/02/21
--- OUTSIDE RECORDS SUMMARY | 2025-05-11 10:42 | XMS_ITS | Encounter Summary ---
[facility] Address [address] [place] [address] Care Team Providers Care Stone Carriage Operator Name Role Phone System, Provider Not In Primary Care Provider Un available Encounter Details Date Type Department Care Team (Latest Contact Info) Description 05/02/2025 Travel Social History Tobacco Use Types Packs/Day [...] or training? Not on file Preferred Language Welsh 03/03/2024 PHQ-2 Answer Date Recorded Retired PHQ-9: [...] 05/16/2025 11:00 AM EDT Office Visit [facility] C[facility]IOLOG[facility] [address] [place] [phone] Daphney Hall MD [address] [place] [address] documented as of this encounter Visit Diagnoses Not on filedocumented in this encounter Additional Health Concerns Assessment Noted Time PHQ-2 Depression Total Score: 3 07/18/20 24 11:28 AM EDT documented as of this encounter Care Teams Stone Carriage Operator Relationship Specialty Start Date End Date System, [place] [address] PCP - General 02/14/25 documented as of this encounter
--- OUTSIDE RECORDS SUMMARY | 2025-05-11 10:42 | XMS_ITS | Encounter Summary ---
[facility] Address [address] [place] [phone] Care Team Providers Care Information Writer Name Role Phone System, Provider Not In Primary Care Provider Un available Reason for Visit * Reason Comments Med Refill Encounter Details Date Type Department Care Team (Late st Contact Info) Description 05/07/2025 Refill [facility] PRIMARY CARE [address] [place] [address] [place] [address] Ronaldo Kong MD [address] [place] [address] [place] [address] Candidal intertrigo Social History Tobacco Use Types Packs/Day Years [...] or training? Not on file Preferred Language Guyanese 03/03/2024 PHQ-2 Answer Date Recorded Retired PHQ-9: [...] Description 05/16/2025 11:00 AM EDT Office Visit [facility] CARDIOLOGY [address] [place] [address] Daphney Hall MD [address] [place] [address] documented as of this encounter Visit Diagnoses Diagnosis Candidal intertrigo Candidiasis of skin and nails documented in this encounter Additional Health Concerns Assessment Noted Time PHQ-2 Depression Total Score: 3 07/18/20 24 11:28 AM EDT documented as of this encounter Care Teams Information Writer Relationship Specialty Start Date End Date System, [place] [address] PCP - General 02/14/25 documented as of this encounter
--- OUTSIDE RECORDS SUMMARY | 2025-05-11 10:42 | XMS_ITS | Encounter Summary ---
[facility] Address [address] [place] [phone] Care Team Providers Care Flattening Press Operator Name Role Phone System, Provider Not In Primary Care Provider Un available Reason for Visit * Reason Comments Med Refill Encounter Details Date Type Department Care Team (Late st Contact Info) Description 03/12/2025 Refill [facility] CARDIOLOGY [address] [place] [address] Daphney Hall MD [address] [place] [address] Med Refill Social History Tobacco Use [...] or training? Not on file Preferred Language Eritrean 03/03/2024 PHQ-2 Answer Date Recorded Retired PHQ-9: Brief Depression Severity Measure Score 14 07/18/2024 Comments No Sex and Gender Information Value Date Recorded Sex Assigned at Female 03/08/2025 7:42 AM EDT Legal Sex Female 12:37 PM EDT Gender Identity Not on file Sexual Orientation Not on file documented as of this encounter Miscellaneous Notes * Telephone Encounter - Daphney Hall MD - 03/14/2025 9:58 AM EDT Verify if patient is using this still, it was taken off her med list last OV documented in this encounter Plan of Treatment Upcoming Encounters Date Type Department Care Team (Late st Contact Info) Description 05/16/2025 11:00 AM EDT Office Visit [facility] CARDIOLOGY [address] [place] [address] Daphney Hall MD [address] [place] [place] [address] documented as of this encounter Visit Diagnoses Not on filedocumented in this encounter Additional Health Concerns Assessment Noted Time PHQ-2 Depression Total Score: 3 07/18/20 24 11:28 AM EDT documented as of this encounter Care Teams Flattening Press Operator Relationship Specialty Start Date End Date System, [place] [address] PCP - General 02/14/25 documented as of this encounter
--- OUTSIDE RECORDS SUMMARY | 2025-05-11 10:42 | XMS_ITS | Encounter Summary ---
[facility] Address [address] [place] [address] Care Team Providers Care Farm Tractor Operator Name Role Phone System, Provider Not In Primary Care Provider Un available Reason for Visit * Reason Comments Med Refill Encounter Details Date Type Department Care Team (Late st Contact Info) Description 04/05/2025 Refill [facility] CARDIOLOGY [address] [place] [address] Daphney Hall MD [address] [place] [address] Med Refill Social History Tobacco Use [...] Description 05/16/2025 11:00 AM EDT Office Visit [facility] [place]ARDIOLOG[facility] [address] [place] [address] Daphney Hall MD [address] [place] [address] documented as of this encounter Visit Diagnoses Not on filedocumented in this encounter Additional Health Concerns Assessment Noted Time PHQ-2 Depression Total Score: 3 07/18/20 24 11:28 AM EDT documented as of this encounter Care Teams Farm Tractor Operator Relationship Specialty Start Date End Date System, [place] [address] PCP - General 02/14/25 documented as of this encounter
--- OUTSIDE RECORDS SUMMARY | 2025-05-11 10:42 | XMS_ITS | Encounter Summary ---
Author Organization Healthcare Address [address] [place] [address] Care Team Providers Care Greaser Helper Name Role Phone Ronaldo Kong MD Primary Care Provider [phone] Encounter Details Date Type Department Care Team (Late Contact Info) Description 07/08/2022 Orders Only External Location [address] [place] [address] Provider, External Social History Tobacco Use Types [...] Office Visit [facility] [address] [place] [address] Magalis Reid, SUPERVISOR COIN MACHINE, DNP [address] [place] [address] documented as of this encounter Procedures Procedure [...] documented as of this encounter Care Teams Greaser Helper Relationship Specialty Start Date End Date Ronaldo Kong MD [address] [place] [address] PCP - General 03/01/21 Guru Ma [address] [place] [address] [address] [facility] [address] Referring Physician Obstetrics and Gynecology 09/02/21 documented as of this encounter
--- OUTSIDE RECORDS SUMMARY | 2025-05-11 10:42 | XMS_ITS | Encounter Summary ---
[facility] Address [address] [place] [id number] Care Team Providers Care Mortgage Protection Specialist Name Role Phone System, Provider Not In Primary Care Provider Un available Reason for Visit * Reason Comments Med Refill Encounter Details Date Type Department Care Team (Late st Contact Info) Description 04/14/2025 Refill [facility] [address] [place] [place] [address] [place] [address] Ronaldo Kong MD [address] [place] [place] [address] [place] [address] Social History Tobacco Use Types Packs/Day Years [...] or training? Not on file Preferred Language Panamanian 03/03/2024 PHQ-2 Answer Date Recorded Retired PHQ-9: [...] Description 05/16/2025 11:00 AM EDT Office Visit [facility] [address] [place] [address] Daphney Hall MD [address] [place] [address] documented as of this encounter Visit Diagnoses Not on filedocumented in this encounter Additional Health Concerns Assessment Noted Time PHQ-2 Depression Total Score: 3 07/18/20 24 11:28 AM EDT documented as of this encounter Care Teams Mortgage Protection Specialist Relationship Specialty Start Date End Date System, [place] [address] PCP - General 02/14/25 documented as of this encounter
--- OUTSIDE RECORDS SUMMARY | 2025-05-11 10:42 | XMS_ITS | Encounter Summary ---
[facility] [address] [place] [phone] Care Team Providers Care Optical Laboratory Technician Name Role Phone System, Provider Not In Primary Care Provider Un available Reason for Visit * Reason Comments Med Refill Encounter Details Date Type Department Care Team (Late st Contact Info) Description 04/05/2025 Refill [facility] [address] [place] [address] [place] [address] Ronaldo Kong MD [address] [place] [address] [place] [address] Social History Tobacco Use Types Packs/Day Years [...] or training? Not on file Preferred Language North Korean 03/03/2024 PHQ-2 Answer Date Recorded Retired PHQ-9: [...] Description 05/16/2025 11:00 AM EDT Office Visit [facility] [place] [address] [place] [address] Daphney Hall MD [address] [place] [address] documented as of this encounter Visit Diagnoses Not on filedocumented in this encounter Additional Health Concerns Assessment Noted Time PHQ-2 Depression Total Score: 3 07/18/20 24 11:28 AM EDT documented as of this encounter Care Teams Optical Laboratory Technician Relationship Specialty Start Date End Date System, [place] [address] PCP - General 02/14/25 documented as of this encounter
--- OUTSIDE RECORDS SUMMARY | 2025-05-11 10:42 | XMS_ITS | Encounter Summary ---
Author Organization [facility] Address [address] [place] [address] Care Team Providers Care Board Operator Name Role Phone Ronaldo Kong MD Primary Care Provider [phone] Encounter Details Date Type Department Care Team (Late st Contact Info) Description 03/03/2025 Telephone [facility] [address] [place] [address] Magalis Reid, CVOR NURSE, DNP [address] [place] [address] Social History Tobacco Use Types [...] to reschedule UDS. thanks Best contact number: [phone] (mobile) Optimal time of day to reach [...] Description 06/01/2025 9:20 AM EDT Office Visit [facility] [address] [place] [address] Magalis Reid, CVOR NURSE, DNP [address] [place] [address] documented as of this encounter Visit Diagnoses Not on filedocumented in this encounter Additional Health Concerns Assessment Noted Time A fall risk assessment has been complete d for the patient 10/02/2023 1:33 PM EST A Body Mass Index follow-up plan has been documented for the patient 11/14/2024 1:45 PM EST documented as of this encounter Care Teams Board Operator Relationship Specialty Start Date End Date Ronaldo Kong MD [address] [place] [address] [place] [address] PCP - General 03/01/21 Guru Ma [address] [place] [address] [id number] [facility] [address] Referring Physician Obstetrics and Gynecology 09/02/21 documented as of this encounter
--- OUTSIDE RECORDS SUMMARY | 2025-05-11 10:42 | XMS_ITS | Encounter Summary ---
Author Organization [facility] Address [address] [place] [phone] Care Team Providers Care Automotive Metalsmith Name Role Phone System, Provider Not In Primary Care Provider Un available Reason for Visit * Reason Onset Date Comments DR.WAESPE- HANDLEY 03/30/2025 Encounter Details Date Type Department Care Team (Late st Contact Info) Description 03/30/2025 Telephone [facility] [address] [place] [address] Daphney Hall MD [address] [place] [address] DR.WAESPE- HANDLEY Social History Tobacco Use Types Packs/Day Years [...] or training? Not on file Preferred Language Senegalese 03/03/2024 PHQ-2 Answer Date Recorded Retired PHQ-9: Brief Depression Severity Measure Score 14 07/18/2024 Comments No Sex and Gender Information Value Date Recorded Sex Assigned at Female 03/08/2025 7:42 AM EDT Legal Sex Female 12:37 PM EDT Gender Identity Not on file Sexual Orientation Not on file documented as of this encounter Miscellaneous Notes * Telephone Encounter - Anabella Millard MA - 03/30/2025 12:50 PM EDT CALLED AND SPOKE TO PATIENT AND ADVISED HER TO GO TO THE ER, ALSO MADE PATIENT AN APPOINTMENT FOR NEXT WEEK. * Telephone Encounter - Matt Eduardo RegSched Rep - 03/30/2025 12:23 PM EDT Caller: Frannie Nuñez Relationship: Self Best call back number: [phone] What is the best time to reach you: ANY Who are you requesting to speak with (clinical staff, provider, specific staff member): CLINICAL What was the call regarding: PATIENT IS THINKING THEY ARE HAVING A MEDICATION ISSUES THAT THEIR HEART RATE OR BP IS A LITTLE LOW WHEN THEY SIT UP THEY FEEL FAINT, BUT NEVER FALL. PLEASE ADVISE. Is it okay if the provider responds through MyChart: NO documented in this encounter Plan of Treatment Upcoming Encounters Date Type Department Care Team (Late st Contact Info) Description 05/16/2025 11:00 AM EDT Office Visit [facility] [address] [place] [address] Daphney Hall MD [address] [place] [address] documented as of this encounter Visit Diagnoses Not on filedocumented in this encounter Additional Health Concerns Assessment Noted Time PHQ-2 Depression Total Score: 3 07/18/20 24 11:28 AM EDT documented as of this encounter Care Teams Automotive Metalsmith Relationship Specialty Start Date End Date System, [place] [address] PCP - General 02/14/25 documented as of this encounter
--- OUTSIDE RECORDS SUMMARY | 2025-05-11 10:42 | XMS_ITS | Encounter Summary ---
[facility] Address [address] [place] [phone] Care Team Providers Care Wire Frame Maker Name Role Phone System, Provider Not In Primary Care Provider Un available Reason for Visit * Reason Comments Med Refill Encounter Details Date Type Department Care Team (Late st Contact Info) Description 05/04/2025 Refill [facility] PRIMARY [facility] [address] [place] [address] [place] [address] Ronaldo Kong MD [address] [place] [address] [place] [address] Primary hypertension; Chronic diastolic (congestive) heart failure Social History Tobacco Use Types Packs/Day Years [...] or training? Not on file Preferred Language Solomon Islander 03/03/2024 PHQ-2 Answer Date Recorded Retired PHQ-9: [...] Description 05/16/2025 11:00 AM EDT Office Visit [facility] [address] [place] [address] Daphney Hall MD [address] [place] [address] documented as of this encounter Visit Diagnoses Diagnosis Primary hypertension Unspecified essential hypertension Chronic diastolic (congestive) heart failure documented in this encounter Additional Health Concerns Assessment Noted Time PHQ-2 Depression Total Score: 3 07/18/20 24 11:28 AM EDT documented as of this encounter Care Teams Wire Frame Maker Relationship Specialty Start Date End Date System, [place] [address] PCP - General 02/14/25 documented as of this encounter
--- OUTSIDE RECORDS SUMMARY | 2025-05-11 10:42 | XMS_ITS | Encounter Summary ---
[facility] Organization [facility] Address [address] [place] [phone] Care Team Providers Care Tube Winder Hand Name Role Phone System, Provider Not In Primary Care Provider Un available Reason for Visit * Reason Comments Med Refill Encounter Details Date Type Department Care Team (Late st Contact Info) Description 04/19/2025 Refill [facility] [address] [place] [address] [place] [address] Ronaldo Kong MD [address] [place] [address] [place] [address] Social History Tobacco Use Types Packs/Day Years [...] or training? Not on file Preferred Language Mongolian 03/03/2024 PHQ-2 Answer Date Recorded Retired PHQ-9: [...] 05/16/2025 11:00 AM EDT Office Visit [facility] C[facility] [address] [place] [address] Daphney Hall MD [address] [place] [address] documented as of this encounter Visit Diagnoses Not on filedocumented in this encounter Additional Health Concerns Assessment Noted Time PHQ-2 Depression Total Score: 3 07/18/20 24 11:28 AM EDT documented as of this encounter Care Teams Tube Winder Hand Relationship Specialty Start Date End Date System, [place] [address] PCP - General 02/14/25 documented as of this encounter
--- OUTSIDE RECORDS SUMMARY | 2025-05-11 10:42 | XMS_ITS | Encounter Summary ---
[facility] Address [address] [place] [phone] Care Team Providers Care Freight Car Cleaner Name Role Phone System, Provider Not In Primary Care Provider Un available Reason for Visit * Reason Onset Date Comments DR. HALL -- NEHA 02/22/2025 Encounter Details Date Type Department Care Team (Latest Contact Info) Description 02/22/2025 Telephone [facility] CARDI[facility] [address] [place] [address] Daphney Hall MD [address] [place] [address] DR. HALL -- NEHA Social History Tobacco Use Types Packs/Day Years [...] or training? Not on file Preferred Language Israeli 03/03/2024 PHQ-2 Answer Date Recorded Retired PHQ-9: Brief Depression Severity Measure Score 14 07/18/2024 Comments No Sex and Gender Information Value Date Recorded Sex Assigned at Female 03/08/2025 7:42 AM EDT Legal Sex Female 12:37 PM EDT Gender Identity Not on file Sexual Orientation Not on file documented as of this encounter Miscellaneous Notes * Telephone Encounter - Timoteo Jaime RegSched Rep - 02/22/2025 12:55 PM EDT Hub staff attempted to follow warm transfer process and was unsuccessful Caller: Frannie Nuñez Relationship to patient: Self Best call back number: [phone] Patient is needing: PT NEEDING TO RESCHEDULE ECHO SCHEDULED ON 5.8.25 @ 12:30PM. PLEASE ADVISE. documented in this encounter Plan of Treatment Upcoming Encounters Date Type Department Care Team (Late st Contact Info) Description 05/16/2025 11:00 AM EDT Office Visit [facility] [address] [place] [address] Daphney Hall MD [address] [place] [address] documented as of this encounter Visit Diagnoses Not on filedocumented in this encounter Additional Health Concerns Assessment Noted Time PHQ-2 Depression Total Score: 3 07/18/20 24 11:28 AM EDT documented as of this encounter Care Teams Freight Car Cleaner Relationship Specialty Start Date End Date System, [place] [address] PCP - General 02/14/25 documented as of this encounter
--- OUTSIDE RECORDS SUMMARY | 2025-05-11 10:43 | XMS_ITS | Encounter Summary ---
[facility] [address] [place] [phone] Care Team Providers Care Naval Science Teacher Name Role Phone System, Provider Not In Primary Care Provider Un available Encounter Details Date Type Department Care Team (Late Contact Info) Description 10/02/2022 Telephone [facility]IMARY [facility]ARE [address] [place] [address] [place] [address] Ronaldo Kong MD [address] [place] [address] [place] [address] Social History Tobacco Use Types Packs/Day Years Used Date Smoking Tobacco: Former Cigarettes 1 15 1 11/08/2006 - 09/08/2022 Smokeless Tobacco: Never Alcohol Use Standard Drinks/Week Comments Not Currently 0 (1 standard drink = 0.6 oz pur e alcohol) AUDIT-C Answer Date Recorded Q1: How often do you have a drink containing alcohol? Never 08/12/2022 Q2: How many drinks containi ng alcohol do you have on a typical day when you are drinking? Patient does not drink Q3: How often do you have si x or more drinks on one occasion? Never 08/12/2022 PHQ-2 Answer Date Recorded Retired PHQ-9: Brief Depression Severity Measure Score 6 05/27/2022 Comments No Sex and Gender Information Value Date Recorded Sex Assigned at Female 03/08/2025 7:42 AM EDT Legal Sex Female 12:37 PM EDT Gender Identity Not on file Sexual Orientation Not on file documented as of this encounter Plan of Treatment Upcoming Encounters Date Type Department Care Team (Late Contact Info) Description 05/16/2025 11:00 AM EDT Office Visit [facility] [address] [place] [phone] Daphney Hall MD [address] [place] [address] documented as of this encounter Visit Diagnoses Not on filedocumented in this encounter Additional Health Concerns Assessment Noted Time PHQ-2 Depression Total Score: 3 05/27/20 22 12:00 PM EDT documented as of this encounter Care Teams Naval Science Teacher Relationship Specialty Start Date End Date System, [place] [address] PCP - General 02/14/25 documented as of this encounter
--- OUTSIDE RECORDS SUMMARY | 2025-05-11 10:43 | XMS_ITS | Patient Health Record ---
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 Problem Morbid obesity (649842265) Morbid obesity (E66.01) Active confirmed Problem Type 2 diabetes mellitus (63921878) Type 2 diabetes mellitus (E11.9) Active confirmed Problem Hypertension (55971676) HTN (hypertension) (I10) Active confirmed Problem Brain tumor (732696426) Brain tumor (D49.6) Active confirmed Problem Obstructive sleep apnea syndrome (10456653) BRENDA (obstructive sleep apnea) (G47.33) Active confirmed Problem Obese (173846910) Obese (E66.9) Active confirmed Problem Chronic kidney disease stage 2 (238073472) Chronic kidney disease stage 2 (N18.2) Active confirmed Problem Obstructive sleep apnea syndrome (12774345) BRENDA (obstructive sleep apnea) (G47.33) Active confirmed [...] 11/22/2024 Encounters Encounter Location Date Provider Diagnosis [facility] [address] [place] [address] 11/22/2024 Harpreet Casatneda Chronic kidney disease stage 2 N18.2 ; [...] DIFF 06/01/2023 IRON, TIBC AND FERRITIN PANEL 07/29/2022 IRON, TIBC AND FERRITIN PANEL 11/30/2023 CMP14+eGFR 11/30/2023 CMP14+eGFR 07/29/2022 CMP14+eGFR 08/01/2021 CMP14+eGFR 12/01/2022 URINALYSIS COMPLETE 06/01/2023 URINALYSIS COMPLETE 08/01/2021 URINALYSIS [...] HCT 07/29/2022 Next Appt Details Provider Name:Harpreet Csataneda, 05/23/2025 10:40:00 AM, [address], [place], [address], Insurance Providers Payer Name Payer Address Payer Phone Subscriber Number Group Number Insured Name Patient Relationship to Insured Coverage Start Date Coverage End Date [employer] [facility] [address] [place] [phone] [id number] Massimo chacon Frannie Self - patient is [...]
--- OUTSIDE RECORDS SUMMARY | 2025-05-11 10:43 | XMS_ITS | Encounter Summary ---
[facility] Address [address] [place] [phone] Care Team Providers Care Outsole Skiver Name Role Phone System, Provider Not In Primary Care Provider Un available Reason for Visit * Reason Comments Med Refill Encounter Details Date Type Department Care Team (Late st Contact Info) Description 04/19/2025 Refill [facility] [address] [place] [address] Daphney Hall MD [address] [place] [address] Med Refill Social History Tobacco Use [...] or training? Not on file Preferred Language Georgian 03/03/2024 PHQ-2 Answer Date Recorded Retired PHQ-9: Brief Depression Severity Measure Score 14 07/18/2024 Comments No Sex and Gender Information Value Date Recorded Sex Assigned at Female 03/08/2025 7:42 AM EDT Legal Sex Female 12:37 PM EDT Gender Identity Not on file Sexual Orientation Not on file documented as of this encounter Miscellaneous Notes * Telephone Encounter - Anne-Marie Zambrano RegSched Rep - 04/19/2025 9:10 AM EDT Patient is no longer on [facility]. Call [facility], Spoke to Cara. Asked her to remove from patient profile. documented in this encounter Plan of Treatment Upcoming Encounters Date Type Department Care Team (Late st Contact Info) Description 05/16/2025 11:00 AM EDT Office Visit [facility] [address] [address] Daphney Hall MD [address] [place] [address] documented as of this encounter Visit Diagnoses Not on filedocumented in this encounter Additional Health Concerns Assessment Noted Time PHQ-2 Depression Total Score: 3 07/18/20 24 11:28 AM EDT documented as of this encounter Care Teams Outsole Skiver Relationship Specialty Start Date End Date System, [place] [address] PCP - General 02/14/25 documented as of this encounter
--- OUTSIDE RECORDS SUMMARY | 2025-05-11 10:43 | XMS_ITS | Clinical Summary ---
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 Role Phone System, Provider Not In Primary Care Provider Un available Allergies Active Allergy Reactions Criticality Noted Date Comments Adhesive Tape Rash Low 09/08/2022 OK with paper tape Sulfamethoxazole-Trimetho prim Nausea Only Low 07/13/2024 Diphenhydramine Hives Medium 10/01/2010 Doxycycline Nausea Only Low 01/28/2023 Meclizine Rash Low 08/12/2022 Metformin Nausea Only Low 05/09/2024 Semaglutide(0.25 Or 0.5mg-Dos) Nausea And Vomiting Low 05/09/2024 Tetanus Immune Globulin Hives Low 09/24/2022 Tetanus Toxoids Hives Low 11/28/2017 Medications zonisamide (ZONEGRAN) 100 MG capsule Take 530 mg by mouth 3 (Three) Times a Day. Active baclofen (LIORESAL) 10 MG tablet Take 1 tablet by mouth 4 (Four) Times a Day. Active Emgality 120 MG/ML auto-injector pen Inject 1 mL under the skin into the appropriate area as directed Every 30 (Thirty) Days. Last dose 07/25/23 08/15/20 22 Active Nurtec 75 MG dispersible tablet Take 75 tablets by mouth As Needed. As needed 08/15/20 22 Active cholecalciferol (VITAMIN D3) 1.25 MG (13581 UT) capsule Take 1 capsule by mouth Every 7 (Seven) Days. 06/25/20 23 Active folic acid (FOLVITE) 1 MG tabletIndications: Folic acid deficiency Take 1 tablet by mouth Daily. 90 tablet 3 12/02/19 24 Active Syringe/Needle, Disp, (B-D 3CC LUER-ARSALAN SYR 25GX1 ) 25G X 1 3 ML misc USE WITH B12 INJECTION 1 each 2 04/04/20 24 Active cetirizine (zyrTEC) 10 MG tablet TAKE ONE TABLET BY MOUTH ONCE A DAY 30 tablet 3 04/08/20 24 Active lamoTRIgine (LaMICtal) 150 MG tablet Take 1 tablet by mouth Daily. 2 tablets once daily Active spironolactone (ALDACTONE) 50 MG tabletIndications: Primary hypertension,Chron ic diastolic (congestive) heart failure Take 1 tablet by mouth Daily. 90 tablet 3 05/03/20 24 Active nystatin (MYCOSTATIN) 617813 UNIT/GM powderIndications: Candidal intertrigo Apply topically to the appropriate area as directed 3 (Three) Times a Day. 60 g 1 05/03/20 24 Active ondansetron ODT (ZOFRAN-ODT) [address] 1 tablet on the tongue Every 8 (Eight) Hours As Needed for Nausea. 20 tablet 07/13/20 24 Active fluticasone (FLONASE) 50 MCG/ACT nasal spray USE 2 SPRAYS IN EACH NOSTRIL ONCE A DAY NEEDED FOR ALLERGIES 16 g 3 07/14/20 24 Active albuterol sulfate HFA 108 (90 Base) MCG/ACT inhaler 08/22/20 24 Active Trelegy Ellipta 100-62.5-25 MCG/ACT inhaler 08/25/20 24 Active QUEtiapine (SEROquel) 50 MG tablet 09/07/20 24 Active rOPINIRole (REQUIP) 2 MG tablet Take 2 tablets by mouth every night at bedtime. 08/19/20 24 Active busPIRone (BUSPAR) 5 MG tablet Take 1 tablet by mouth 2 (Two) Times a Day. Active famotidine (PEPCID) 20 MG tablet Take 1 tablet by mouth 2 (Two) Times a Day. Active rosuvastatin (CRESTOR) 20 MG tablet Take 1 tablet by mouth Daily. Active furosemide (LASIX) 20 MG tabletIndications: Chronic diastolic (congestive) heart failure TAKE ONE TABLET BY MOUTH 2 TIMES A DAY. TAKE ONE TABLET NEEDED FOR AGRESSIVE EDEMA OR WEIGHT GAIN GREATER THAN 2 POUNDS OVER 24 HOURS 60 tablet 01/21/20 25 Active aspirin 81 MG EC tablet Take 1 tablet by mouth Daily. Active Continuous Glucose Sensor (Dexcom G6 Sensor) See Admin Instructions. 01/21/20 25 Active Semaglutide,0.25 or 0.5MG/DOS, (OZEMPIC) 2 MG/1.5ML solution pen-injector Inject 0.25 mg under the skin into the appropriate area as directed 1 (One) Time Per Week. 02/09/20 25 Active vitamin B-12 (CYANOCOBALAMIN) 1000 MCG tablet TAKE 1 TABLET BY MOUTH ONCE A DAY BEFORE meals 02/15/20 25 Active dexlansoprazole (DEXILANT) 60 MG capsule TAKE ONE CAPSULE BY MOUTH ONCE a DAY Active nicotine polacrilex (COMMIT) 4 MG lozenge DISSOLVE 1 lozenge BY MOUTH EVERY 1 TO 2 HOURS DO not exceed more THAN 20 PER DAY Active desvenlafaxine (PRISTIQ) 100 MG 24 hr tablet Take 1 tablet by mouth Daily. 02/21/20 25 Active carvedilol (COREG) 12.5 MG tablet TAKE ONE TABLET BY MOUTH 2 TIMES A DAY 60 tablet 5 03/14/20 25 Active Motegrity 2 MG tablet Take 1 tablet by mouth Daily. 03/31/20 25 Active Active Problems Problem Noted Date Diagnosed Date Acute low back pain 04/04/2025 Constipation 07/18/2024 Assessment & Plan (07/18/2024 1:02 PM EDT): Several weeks of constipation, not currently utilizing her MiraLAX previously prescribed. Advised to start anywhere from 1/2-1 capful daily adjusting to maintain 1 or 2 soft bowel months daily. Ensure healthy diet with fruits and vegetables, drinking plenty water, as well as need for regular physical activity. Nausea 07/13/2024 Assessment & Plan (07/13/2024 5:27 PM EDT): presents today for complaints of nausea. This has been a long-term issue with her, referred to gastroenterology back in March by her regular PCP, Dr. Ronaldo Kong, but patient did not follow through feeling as though it had improved. Patient had her Ozempic discontinued 5 months ago which provided no relief, she underwent gallbladder ultrasound in March 2023 that showed only steatohepatitis. He was evaluated by Dr. Sanches by EGD in 2020 showing chronic reactive gastritis. In the last year she has undergone CT of the abdomen without any pathology. Patient has had medication adjustments without any improvement in her chronic nausea. Currently utilizing pantoprazole 40 mg twice daily and as needed Zofran. She has been on bactrim per Dr. Anton and feels that was the problem. Bactrim was per Dr. Anton after Right TKA, concerns for infection at incision site. Patient's Bactrim dosing was prescribed for a total of 10 days, however today patient has not taken the Bactrim and feels as though her gastrointestinal symptoms have improved. She states that her nausea is not responding to current 4 mg Zofran dosing. He feels some component of her nausea has to do with anxiety. She states that she is going to follow-up with Dr. Kong in regards to her anxiety when he returns to the office next week. She verbalizes wishes to proceed with previous gastroenterology referral, Dr. Wei Diamond in [place]. Denies any associated vomiting, diarrhea or abdominal pain with her nausea. States she is lost 30 pounds in the last 2 months due to her nausea and lack of appetite -Patient Zofran increased to 8 mg every 6 hours as needed -Per a prior discussion with her and Dr. Kong referral to Dr. Wei Diamond in [place] placed today. She is going to be following up with Dr. Kong next week on anxiety issues which she also thinks could be contributory to her GI issues Candidal intertrigo 05/03/2024 Assessment & Plan (05/03/2024 12:30 PM EDT): Patient with history of recurrent candidal intertrigo, not currently problematic but she does request medication to be used as needed. Prescribe nystatin powder 3 times daily as needed, advising keeping skin folds cool and dry. Preop examination 03/24/2024 Assessment & Plan (03/24/2024 1:15 PM EDT): Presenting to this office today for medical clearance to undergo anticipated right TKA by Dr. Rj Anton of orthopedic surgery, definitive date to be determined after gets medical and cardiology clearance. From a medical standpoint she is clinically stable to undergo this procedure. She has controlled CHF with preserved EF, no history of coronary disease per left heart catheterization last year, no known primary lung disease. Risk factors include her morbid obesity with concomitant BRENDA being treated with CPAP, monitor closely periextubation, recent laboratory testing overall stable, EKG from 03/03/2024 unremarkable. Patient to get cardiology clearance with Dr. Mary Anton in the near future. Primary osteoarthritis of right knee 03/24/2024 Assessment & Plan (03/24/2024 1:01 PM EDT): Advanced degenerative osteoarthritis of the right knee with secondary pain. Impending plan for right TKA under the surface of Dr. Rj Anton of orthopedic surgery, definitive surgical date to be determined after full medical and cardiac clearance. Chronic pain of right knee 03/24/2024 Assessment & Plan (03/24/2024 1:01 PM EDT): Right knee pain secondary to advanced degenerative osteoarthritis of the right knee. Plan for definitive right TKA under the services of Dr. Rj Anton of orthopedic surgery with surgical date to be determined after gets full medical and cardiac clearance. Acute kidney injury 03/24/2024 Overview (03/24/2024): Creatinine 0.99 with GFR 68 on 03/03/2024, creatinine 1.3 GFR 49 on 03/23/2024, likely secondary to excessive diuresis Assessment & Plan (03/24/2024 6:25 PM EDT): Patient had lab testing through [facility] yesterday having been diagnosed with UTI, noting creatinine 1.3 with GFR 49, previous creatinine 0.99 with GFR 68 on 03/03/2024. Patient recently had the addition of metolazone 2.5 mg daily to her maintenance Bumex 2 mg daily given suspicion of volume overload by cardiology. Metolazone is to be discontinued, especially in context with the addition of Jardiance 10 mg daily, and patient is to get a repeat BMP in the next month. She does continue low-dose lisinopril 5 mg daily. Drug withdrawal syndrome 02/08/2024 Assessment & Plan (02/08/2024 5:43 PM EDT): Patient initiated on a taper by her psychiatrist of Effexor XR with chronic dose 225 mg daily (150 mg +75 mg each daily). Initially her dose was dropped to 150 mg daily, with plan then to taper down to 37.5 mg twice daily as a transition dose. However insurance would not cover the 37.5 mg dose, thus patient stopped her Effexor XR 150 mg daily cold turkey 4 days ago and 2 days prior to the onset of her recurrent nausea and vomiting as noted. I suspect this rapid discontinuation of her Effexor is the likely cause of her symptoms, less likely infectious, less likely gallbladder related given previous negative workup for the latter problem. Plan reinitiate Effexor XR 75 mg daily x 10 days as a bridging dose from her previous 150 mg daily,, then reduce dose to Effexor XR 37.5 mg daily x 10 days, then stop. Also advised to discontinue any Ozempic dosing until her symptoms have resolved. Advise if her symptoms or not resolving with this adjusted tapering regimen. Vascular claudication 01/25/2024 Assessment & Plan (01/25/2024 11:10 AM EDT): Patient describes leg pain with standing as well as ambulation. ABIs had been ordered last month but for unknown reason were not obtained. Will resubmit referral to obtain, in order to rule out any obvious obstructive vascular disease given multiple risk factors including diabetes hypertension hyperlipidemia and ongoing cigarette smoking. 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 Will obtain ABIs. Diabetic polyneuropathy asso ciated with type 2 diabetes mellitus 12/29/2023 Overview (05/03/2024): Hemoglobin A1c 7.1% in 10/2023, 6.9% in 03/2024, 7.6% in 04/2024 Assessment & Plan (05/03/2024 12:28 PM EDT): Deterioration in her glycemic control with hemoglobin A1c of 7.6% during recent hospitalization at [facility], previously 6.8% in 03/2024. She had discontinuation of her Ozempic recently given secondary nausea, having been maintained initially on Jardiance 10 mg daily switched to Farxiga 10 mg daily during recent hospitalization for formulary change. Will add metformin XL 500 mg daily continuing of the Farxiga 10 mg daily, check blood pressures regularly and reassess clinically at her follow-up visit in 6 weeks. Assessment & Plan (01/25/2024 11:11 AM EDT): Hemoglobin A1c improved at 6.8% versus previous value of 7.1% in 10/2023, having benefited with the addition of GLP-1 agonist, currently Ozempic 1 mg daily. Increasing up to 2 mg daily for improvement in her glycemic control as well secondarily to benefit her weight. Assessment & Plan (12/29/2023 4:04 PM EDT): Most recent hemoglobin A1c 7.1% in 10/2023. Currently taking Mounjaro 5 mg subcu weekly plan to increase to 7.5 mg subcu weekly to improve her diabetic control. Reassess clinically in 1 month at that time to obtain another hemoglobin A1c. Gastroesophageal reflux disease 11/30/2023 Assessment & Plan (03/24/2024 1:14 PM EDT): Continues pantoprazole 40 mg twice daily. Having some persistent nausea and vomiting, with workup pending as detailed above. Encounter for general adult medical examination with abnormal findings 11/30/2023 Assessment & Plan (11/30/2023 6:08 PM EST): 53-year-old female presenting for a complete physical, having an extended list of health problems as detailed below. Health maintenance includes need to update low-dose screening chest CT given longstanding cigarette habit, mammogram and DEXA scan to be updated next month, colonoscopy current from 02/2023 with a 10-year follow-up recommended, does not require updated Pap smear given history of TSH and BSO in 2 stages with no acute related gynecological concerns, recommended update of COVID-19 hepatitis B and Shingrix vaccine outside the office, update standard laboratory testing, diabetic eye evaluation reportedly up-to-date per patient history, EKG not performed today as obtained most recently in 07/[address] Mary Anton of cardiology with no acute related concerns. Allergic rhinitis 11/30/2023 Assessment & Plan (11/30/2023 5:55 PM EST): Continue use of Flonase as well as OTC Zyrtec/Claritin as needed. Screening for lung cancer 11/30/2023 Assessment & Plan (12/29/2023 4:07 PM EDT): Referral given for low-dose screening chest CT last month. Encouraged to obtain study. Assessment & Plan (11/30/2023 6:11 PM EST): Update yearly screening low-dose chest CT with [id number] history of smoking ongoing. Advised regarding need for smoking cessation for health risk reduction. BRENDA treated with BiPAP 11/30/2023 Assessment & Plan (01/17/2025 11:04 AM EDT): She is currently on BiPAP therapy and is using a Voxel BiPAP device. She feels like it is not working as well as it normally does and would like to receive a new machine. She reports daytime sleepiness and fatigue. Current download reviewed and interpreted today. Compliance is 100%, her average use per night is 8 hours and 51 minutes. AHI is 1. -Order for new ResMed device, keep current pressure settings. - Follow-up in 2 months for an BRENDA compliance visit - Do not drive if sleepy Assessment & Plan (03/24/2024 1:02 PM EDT): Compliance with CPAP treating her BRENDA, followed by Dr. Mary Anton of cardiology/sleep medicine. Her BRENDA does increase her risk of postsurgical extubation and will need to be monitored closely. Assessment & Plan (11/30/2023 6:10 PM EST): Indicates compliant with her CPAP machine followed by Dr. Mary Anton of cardiology/sleep medicine. Encounter for screening mamm ogram for malignant neoplasm of breast 11/30/2023 Assessment & Plan (11/30/2023 6:05 PM EST): Obtain mammogram after 12/31/2023 Postmenopausal 11/30/2023 Assessment & Plan (11/30/2023 6:05 PM EST): Obtain DEXA scan simultaneously with mammogram after 12/31/2023 Inadequately controlled diabetes mellitus 2023 Overview (05/03/2024): Hemoglobin A1c 7.1% in 10/2023, 6.9% in 03/2024, 7.6% in 04/2024 Assessment & Plan (05/03/2024 12:25 PM EDT): Deterioration in her glycemic control with hemoglobin A1c of 7.6% during recent hospitalization at [facility], previously 6.8% in 03/2024. She had discontinuation of her Ozempic recently given secondary nausea, having been maintained initially on Jardiance 10 mg daily switched to Farxiga 10 mg daily during recent hospitalization for formulary change. Will add metformin XL 500 mg daily continuing of the Farxiga 10 mg daily, check blood pressures regularly and reassess clinically at her follow-up visit in 6 weeks. Assessment & Plan (12/29/2023 4:04 PM EDT): Most recent hemoglobin A1c 7.1% in 10/2023, currently taking Mounjaro 5 mg subcu weekly with transient nausea but overall tolerating, plan increase Mounjaro to 7.5 mg subcu weekly reassessing clinically in another month. Advise if problems in the interim. Assessment & Plan (11/30/2023 6:03 PM EST): Most recent hemoglobin A1c 1 month ago elevated at 7.1%, currently being treated only with Mounjaro 2.5 mg subcu weekly for the last month, planning increase up to 5 mg subcu weekly with a reassessment in another month. Does take TRAN inhibitor, by history up-to-date with diabetic eye evaluation, consider addition of SGLT2 inhibitor depending on her glycemic control with GLP-1 agonist. Continue efforts at healthy lifestyle with appropriate diet and regular exercise. Left foot pain 09/01/2023 Shortness of breath 07/20/2023 Assessment & Plan (07/28/2023 12:51 PM EDT): Echocardiogram 07/21/2023-LVEF 61-65%. Left ventricular wall thickness is consistent with mild concentric hypertrophy. Left ventricular diastolic function is consistent with (grade 1) impaired relaxation. There is mild, bileaflet mitral valve thickening present. RVSP is normal. Mild mitral valve regurgitation. Mild tricuspid regurgitation - Continue current dose of Lasix. Assessment & Plan (07/20/2023 4:20 PM EDT): Increasing shortness of breath since bladder stimulator surgery last week. Patient is concerned about CHF exacerbation. - Increase Lasix to 40 mg once a day - Echocardiogram for further evaluation - Follow-up in 1 week. Swelling of lower extremity 07/20/2023 Assessment & Plan (07/28/2023 12:50 PM EDT): Lower extremity edema has improved since increasing Lasix dose to 40 mg once daily. - Continue current dose of Lasix and continue potassium supplement - Patient is scheduled to have labs checked later this week as part of preop work-up. I will review those labs once they are completed. - Continue to elevate legs is much as possible. Assessment & Plan (07/20/2023 4:21 PM EDT): Bilateral lower extremity edema that is worsened in the last week. - Increase Lasix to 40 mg once daily and follow-up in 1 week to reassess. - Elevate legs is much as possible. OAB (overactive bladder) 06/19/2023 Orthopnea 05/18/2023 Swelling 05/18/2023 Assessment & Plan (09/09/2023 8:29 AM EST): Patient has frequent complaints of worsening edema due to CHF. She is followed regularly by cardiology, Dr. Mary Anton. Patient currently utilizes Lasix 40 mg once [...] in detail and given to the patient. -Emphasized need for low-sodium diet. Patient to follow-up with her regular PCP in 2 to 3 weeks -Given complaints of shortness of breath particularly with lying down will send for chest PA and lateral Pacemaker 05/10/2023 Assessment & Plan (02/08/2025 5:25 PM EDT): Echo and pacemaker check as soon as possible. Assessment & Plan (09/22/2024 8:44 PM EST): Good battery life and lead function. Assessment & Plan (03/24/2024 1:10 PM EDT): Status post pacemaker placement in 07/2022 having been given a diagnosis of sick sinus syndrome, Holter monitor from 06/2022 revealing per evaluation report a predominant sinus rhythm pulse rate ranging from 60s to the 140s. Most recent pacemaker interrogation earlier this week revealed less than 1% pacing by the pacemaker. Keep follow-up with Dr. Mary Anton of cardiology. Assessment & Plan (03/11/2024 6:06 PM EDT): Status post pacemaker placement in 07/2022 having been given a diagnosis of sick sinus syndrome, Holter monitor from 06/2022 revealing per evaluation report a predominant sinus rhythm pulse rate ranging from 60s to the 140s. Most recent pacemaker interrogation earlier this week revealed less than 1% pacing by the pacemaker. Patient desiring second opinion from Dr. Jerson Win of cardiology regarding diagnosis of SSS and need for pacemaker. Assessment & Plan (11/30/2023 6:00 PM EST): Status post maker placement secondary to sick sinus syndrome. Urinary retention 03/20/2023 Assessment & Plan (11/30/2023 6:05 PM EST): Status post bladder stimulator placement, having improved control and urine output with no significant side effects. Patient apparently has been given instructions by urology to titrate stimuli output per certain criteria. Nausea and vomiting 03/20/2023 Assessment & Plan (07/18/2024 1:02 PM EDT): Ongoing complaints of several months of persistent nausea and currently dry heaving, this despite discontinuation of Ozempic several months ago, unremarkable gallbladder ultrasound in 03/2023 revealing steatohepatitis, EGD with Dr. Myron ORTIZ from 2020 revealing chronic reactive gastritis with a small hiatal hernia, colonoscopy in 02/2023 unremarkable, CT scan of abdomen pelvis in 02/2024 revealing no significant pathology, subsequent unremarkable HIDA scan in 04/2024, no significant improvement with manipulation of psychotropic medications. Requested second opinion from Dr. Wei Diamond of GI, not following up at this referral subsequently, now awaiting appointment for same. She had initially lost 25 pounds in weight from 05/07/2024 through 07/08/2024 but in fact has gained 4 pounds in weight in the last 4 days. Continue her pantoprazole 40 mg twice daily, with Zofran as needed. Assessment & Plan (03/24/2024 1:13 PM EDT): Complaints of subacute persistent nausea and vomiting, this despite discontinuation of Ozempic 2 months ago, unremarkable gallbladder ultrasound in 03/2023 revealing steatohepatitis, EGD with Dr. Sanches GI from 2020 revealing chronic reactive gastritis with a small hiatal hernia, CT scan of abdomen pelvis within the last year revealing no significant pathology, no improvement with manipulation of psychotropic medications. Patient scheduled for HIDA scan tomorrow with further disposition to be determined accordingly. If normal, will refer to GI, if abnormal then refer to general surgery. Continue pantoprazole 40 mg twice daily in the interim along with Zofran as needed. Assessment & Plan (03/11/2024 6:12 PM EDT): Patient has been complaining of chronic nausea and vomiting with acceleration of symptoms recently occurring after she had a sudden withdrawal of her Effexor from 150 mg daily to 0 mg by her psychiatrist. Subsequently she was reinitiated on dose of Effexor XR 75 mg daily x 10 days, then tapered down to 37.5 mg daily to complete 10-day cycle with subsequent discontinuation per directions. She relates that the severe nausea and vomiting has resolved though complains of her longstanding chronic nausea without vomiting, typically occurring twice daily for which she will use Zofran, having had investigations in the past including gallbladder ultrasound most recently in 03/2023 revealing steatohepatitis only, EGD with Dr. Sanches from 2020 revealing chronic reactive gastritis and a small hiatal hernia, CT scans of her abdomen pelvis within the last year unrevealing for any pathology. Her nausea and vomiting certainly could be related to some of her psychotropic medications has had some tweaking by her psychiatrist with persistent symptoms, versus recurrent upper GI pathology despite taking her pantoprazole 40 mg twice daily, unlikely to be related to her Ozempic prescription given symptoms preceded and persisted whether or not she is taking Ozempic. Has had extensive laboratory testing in the not too distant past which has been unrevealing regarding cause of her symptoms. Current plan to obtain a HIDA scan to evaluate for gallbladder dysfunction. If none of these tests or modifications are beneficial, then per patient request will refer for second opinion with Dr. Carvajal Case of GI rather than returning back to see Dr. Sanches. Assessment & Plan (02/23/2024 2:30 PM EDT): Last visit patient had significant deceleration of nausea and vomiting with timing of symptom onset occurring after she had a sudden withdrawal of her Effexor from 150 mg daily to 0. She was on Effexor XR at a low dose of 75 mg daily x 10 days, currently tapered down to 37.5 mg daily to complete 10-day cycle before stopping. She relates that the severe nausea and vomiting has resolved. She does complain of longstanding chronic nausea without vomiting, typically occurring twice daily for which she will use Zofran, having had investigations in the past including gallbladder ultrasound most recently in 03/2023 revealing steatohepatitis only, EGD from 2020 revealing chronic reactive gastritis and a small hiatal hernia, CT scans of her abdomen pelvis within the last year unrevealing for any pathology. Her nausea vomiting certainly could be related to some of her psychotropic medications, versus recurrent upper GI pathology despite taking her pantoprazole 40 mg twice daily, abnormal likely to be related to her Ozempic given symptoms preceded and persist whether or not she is taking Ozempic. Plan for patient initially to discuss with her psychiatrist possible manipulation of some of her medications to see if this will benefit, also discontinuing today her ropinirole as a possible trigger. Also will obtain a HIDA scan to evaluate for gallbladder dysfunction. If none of these tests or modifications are beneficial, we will then refer to GI for further evaluation. Of note she has had extensive lab testing in the not too distant past thus will not be repeated today. Assessment & Plan (02/23/2024 2:22 PM EDT): History of very compatible with nausea and vomiting with timing of symptom onset immediately occurring after secondary withdrawal of her Effexor prescription, as detailed below. Less likely would represent side effect from her Ozempic therapy which she had been tolerating, more likely related to a primary infectious process, and less likely representing gallbladder disorder, this having been investigated multiple times including previous gallbladder sludge, and most recently unremarkable gallbladder ultrasound from 03/2023. No history of HIDA scan. Status post left heart catheterization 3 Overview (03/13/2023): 01/15/2023: Normal coronary arteries, normal LV function Assessment & Plan (03/24/2024 1:07 PM EDT): Left heart catheterization 12/2022 with normal coronary arteries. Continue risk factor modification. Assessment & Plan (11/30/2023 5:58 PM EST): No evidence of coronary disease per [facility] in 12/2022, continue risk factor modification. History of nuclear stress test 03/13/2023 Overview (03/13/2023): 12/30/[address] with EKG showing nonspecific ST-T wave abnormalities, EF 46% at rest and 48% at stress with mid and apical septal hypokinesis, septal region with small area of ischemia in the subsequent left heart catheterization normal with normal LV function Stasis edema of both lower extremities Assessment & Plan (01/25/2024 11:10 AM EDT): Attributed historically to CHF with preserved EF. This may be purely related to stasis edema, but in any event will increase her Bumex 2 mg daily transiently to 1.5 tablets or 3 mg daily x 3 days and back to her baseline Bumex 2 mg daily while continuing her carvedilol, lisinopril, and Aldactone. Assessment & Plan (11/30/2023 5:59 PM EST): Minimal edema at this time, doubly exacerbated historically by her obesity and her heart failure with diastolic dysfunction. She continues on Bumex 2 mg daily and Aldactone 50 mg daily. Acute cystitis with hematuria 02/27/2023 Assessment & Plan (02/27/2023 8:18 AM EDT): new onset urinary burning that started yesterday. He reports additional symptoms of urgency and hesitancy. She denies any hematuria, fever or low back pain. She admittedly is not a plentiful water drinker, mostly drinking soda. She has not utilized any [id number] medications such as AZO for her symptoms. Urinalysis positive for leukocytes and blood in office today. We will treat empirically with Keflex. Advised to increase water consumption. Discussed role of glucose control in regards to UTI Gastritis without bleeding 01/23/2023 Assessment & Plan (01/23/2023 3:24 PM EDT): Onset of vomiting and diarrhea 3 days [...] her PCP, Dr. Ronaldo Kong on Thursday. Encounter for pre-operative cardiovascular clear ance 12/18/2022 Assessment & Plan (12/18/2022 5:14 PM EST): She is planning a right total knee replacement with Dr. Rj Anton. This surgery is unscheduled at this time. After having emergency room visit for chest pain and shortness of breath she was ordered a stress test. She has not completed that at this time but it has been rescheduled for next week. We will assess her cardiac clearance status at her follow-up visit. Cigarette smoker motivated to quit 11/27/2022 Overview (11/30/2023): 1 pack/day cigarette smoker since approximately 1990 Assessment & Plan (03/24/2024 1:02 PM EDT): Longstanding 1 pack/day cigarette smoker since 1990, unsuccessful attempt to stop smoking with multiple smoking cessation aids. Continue to advise need to stop smoking for health risk reduction. Assessment & Plan (12/29/2023 4:05 PM EDT): Indicates desire to stop smoking but unfortunately has not been successful with trial of various smoking aids. Advised of need to discontinue for health risk reduction. Assessment & Plan (11/30/2023 6:11 PM EST): [id number] smoker at 1 pack/day. Strongly advised need to stop smoking, patient does have some motivation to do so but seems to be inhibited by stressors and mood problems. Well aware of the health risks having been counseled multiple times. Rosadarriana 11/27/2022 Assessment & Plan (11/30/2023 6:10 PM EST): Does follow-up with rheumatology with prescription for Finacea 15% gel to be applied twice daily as needed, not currently using. Tinea corporis 11/27/2022 Migraine without aura and wi thout status migrainosus, not intractable 11/27/2022 Chest pain 11/25/2022 Assessment & Plan (01/28/2023 12:24 PM EDT): Resolved. Left heart cath on 01/15/2023-normal coronary arteries. Assessment & Plan (12/31/2022 6:07 PM EDT): Stress test from 12/31/2022 showed mildly reduced left ventricular systolic function with EF of 45 to 46%. Evidence of mid septal ischemia. Intermediate risk study. Proceed with left heart cath at [facility] Assessment & Plan (12/18/2022 5:28 PM EST): She was last seen November 25, 2022 for an ER follow-up on chest pain that she described as very severe in nature and very intense onset. Her pain was a 10 out of 10 and radiating from her left neck down her left arm. At the ER she had serial troponins to rule out an FL. Today she reports that she has had no chest pain since prior to her last visit. She did not complete her stress test due to unfortunately having a stomach virus and had to cancel. It has not been rescheduled. Stress test is rescheduled for next week. I will defer her cardiac clearance until after stress testing is completed. Assessment & Plan (11/25/2022 4:41 PM EST): She reports new onset of chest pain that was very intensive and severe in nature. She called an ambulance and presented to the emergency room at [facility] about 1 week ago. She had an ER visit for chest pain. Her chest pain was a 10 out of 10 and radiating to her left neck and her left arm. At the emergency room she had serial troponins to rule out FL. She had a chest x-ray showing her pacemaker was in good placement. She is planning a knee surgery and will need cardiac clearance. Plan an EKG and a stress test. She is unable to ambulate the treadmill due to shortness of breath and arthritis of her knee. Hypokalemia 11/25/2022 Assessment & Plan (12/31/2022 6:06 PM EDT): Potassium of 2.8 on 12/24/2022. Replacement started by Dr. Kong and hydrochlorothiazide was decreased to 12.5 mg once a day. Recheck labs as scheduled with Dr. Kong. Assessment & Plan (11/25/2022 4:44 PM EST): Her ER discharge summary indicated that she had a low potassium level on her lab check. I have requested her labs from [facility]. She was given oral potassium at the ER. RLS (restless legs syndrome) 09/24/2022 Assessment & Plan (11/30/2023 6:10 PM EST): Good symptom control taking Requip 2 mg nightly. B12 deficiency 09/24/2022 Assessment & Plan (11/30/2023 6:02 PM EST): Taking B12 1000 mcg IM monthly. Update level. If normal, consider transitioning over to vitamin B-12 orally. Sick sinus syndrome 08/12/2022 Assessment & Plan (03/24/2024 1:06 PM EDT): Holter monitor x 7 days in 06/2022 revealed predominantly sinus rhythm with pulse rate ranging between 60s and 140s per her report. Patient has been given a diagnosis of sick sinus syndrome and subsequently had pacemaker placed by Dr. Mary Anton in 07/2022, with recent interrogation per report of Dr. Mary Anton indicating less than 1% pacing. EKG from 03/03/2024 revealing sinus rhythm with no electronic pacing at that time. Assessment & Plan (03/11/2024 6:06 PM EDT): Holter monitor x 7 days in 06/2022 revealed predominantly sinus rhythm with pulse rate ranging between 60s and 140s per her report. Patient has been given a diagnosis of sick sinus syndrome at some point and subsequently had pacemaker placed by Dr. Mary Anton in 07/2022, with recent interrogation per report of Dr. Mary Anton indicating less than 1% pacing. Patient indicates Dr Anton indicated to her questioning the need for pacemaker placement despite she herself having placed the device. Patient consequently has voiced concerns about this conflicting information. She is requesting second opinion cardiology referral to Dr. Jerson Win in [place], and per her request we will make this referral. Assessment & Plan (11/30/2023 5:58 PM EST): Status post post pacemaker placement, EKG reviewed from 07/20/2023 at the office of Dr. Mary Anton with sinus rhythm rate 77, no acute ischemic changes, EKG not repeated today. Assessment & Plan (01/28/2023 12:23 PM EDT): [employer] pacemaker placed August 12, 2022. Pacemaker interrogation today revealed good battery life and lead function. No alerts or arrhythmias noted. Assessment & Plan (12/31/2022 4:05 PM EDT): [employer] pacemaker placed August 12, 2022. Device interrogation today with good battery life and good lead function. Patient did have a 2-minute 40 second run of SVT with heart rate of 179 bpm on 12/29/2022. She felt her heart racing, but did not have dizziness or syncope. Will reassess after heart cath at next office visit with pacemaker interrogation. Assessment & Plan (12/18/2022 5:12 PM EST): She has a history of pacemaker. She is due for pacemaker check on December 31. Assessment & Plan (11/25/2022 4:42 PM EST): She has had a pacemaker download in September with good function and good battery. She is due for pacemaker download in December. Dizziness 08/08/2022 Bradycardia 08/08/2022 Arthropathy of cervical spine 05/27/2022 Asthma 05/27/2022 Bronchitis, chronic 05/27/2022 Candidiasis of skin and nail 05/27/2022 Candidiasis of vulva and vagina 05/27/2022 Chronic diastolic (congestive) heart failure 06/2022 Overview (11/30/2023): [facility] 12/2022 with normal coronary arteries Echocardiogram 07/21/2023: Left ventricular ejection fraction appears to be 61 - 65%. Left ventricular wall thickness is consistent with mild concentric hypertrophy. Left ventricular diastolic function is consistent with (grade I) impaired relaxation. There is mild, bileaflet mitral valve thickening present. Estimated right ventricular systolic pressure from tricuspid regurgitation is normal (<35 mmHg). Assessment & Plan (09/22/2024 8:44 PM EST): Euvolemic and stable, Continue daily lasix and farxiga. Assessment & Plan (05/03/2024 12:29 PM EDT): Left heart catheterization normal in 12/2022, diagnosis of heart failure with preserved EF, most recent echocardiogram 07/2023 with EF 61 to 65%, mild concentric LVH, and mild bileaflet mitral valve thickening, clinically stable with with only trace dependent edema, during recent hospitalization at mental health unit had switching her Jardiance 10 mg daily over to Farxiga 10 mg daily due to formulary requirement, with Farxiga continued as an outpatient, also had discontinuation of her Bumex given acute kidney injury with subsequent improvement in her renal function. Continue her Aldactone 50 mg daily, carvedilol 12.5 mg twice daily, lisinopril 5 mg daily, Jardiance 10 mg daily, and prescribed Lasix 20 mg daily to be used as needed for significant edema or weight gain greater than 2 pounds over 24 hours. Assessment & Plan (03/24/2024 1:05 PM EDT): Left heart catheterization normal in 12/2022, diagnosis of heart failure with preserved EF, most recent echocardiogram 07/2023 with EF 61 to 65%, mild concentric LVH, and mild bileaflet mitral valve thickening, clinically stable with no overt volume overload at this time, currently taking Bumex 2 mg daily, recent discontinuation of metolazone 2.5 mg daily given some increase in her creatinine. For concomitant treatment of her diabetes as well as for cardiac benefit, initiate Jardiance 10 mg daily, holding her metolazone and taking her Bumex only, continue her spironolactone 50 mg daily, KCl 20 mEq daily, carvedilol 12.5 mg twice daily and lisinopril 5 mg daily. Plan to repeat BMP in 1 month, given initiation of Jardiance.. Assessment & Plan (03/11/2024 6:02 PM EDT): Chronic diastolic heart failure with most recent EF 61 to 65% in 07/2023 with LHC revealing normal coronary arteries in 12/2022. She does tend to have variable amounts of fluid retention, chronically taking Bumex 2 mg daily, recently having seen Dr. Mary Anton of cardiology who added metolazone 2.5 mg daily with patient indicating improvement in her edema though her weight is unchanged. Patient is desiring referral to Dr. Jerson Win of cardiology for second opinion regarding all of her related cardiac issues. Will make this referral. Assessment & Plan (01/25/2024 11:08 AM EDT): Clinically has some very mild dependent edema in her ankles, likely stasis related rather than related to diastolic heart failure. Will continue her Aldactone 50 mg daily, carvedilol 12.5 mg daily, lisinopril 5 mg daily, while increasing Bumex 2 mg daily up to 1.5 tablets or 3 mg daily for 3 days then back down to 1 tablet of 2 mg daily. Keep legs elevated. Advise if any ongoing related problems. Note echocardiogram from 07/2023 revealing some mild concentric LVH with grade 1 diastolic dysfunction, left heart cath from 12/2022 normal. Assessment & Plan (11/30/2023 5:59 PM EST): Clinically appears to be euvolemic at this time, history of normal left heart catheterization in 12/2022 with EF revealing normal ejection fraction and mild concentric LVH. Continues on lisinopril 5 mg daily, carvedilol 12.5 mg twice daily, Aldactone 50 mg daily and Bumex 2 mg daily. Assessment & Plan (07/28/2023 12:48 PM EDT): Stable and euvolemic on exam today. Depression 05/27/2022 Assessment & Plan (07/18/2024 1:05 PM EDT): Status post hospitalization at [facility] in 04/2024 for suicidal ideation without plan, no HI. She had previously been on Effexor Remeron Wellbutrin and Abilify, having had to taper off the Effexor a couple months ago given suspicion that may have been causing some nausea, at some point apparently having had discontinuation of her Abilify and Remeron by her mental health provider, and during recent hospitalization had discontinuation of the Wellbutrin with initiation of Pristiq 50 mg daily. She related her moods are much better but over the last several weeks, has had major increase in her anxiety dysthymic symptoms, this apparently triggered by stress with her friend over money related to an automobile. She apparently has a friendship. Very upset about the whole situation. Has seen her mental health provider who several weeks ago added propranolol 10 mg twice daily to her Pristiq 50 mg daily, and 2 weeks ago increase the dose to 20 mg twice daily. She is scheduled follow-up with that provider in 2 days. I advised her to continue current regimen until she sees the provider, with suggesting that she might benefit either from an increase in the dose of Pristiq, in addition of BuSpar, and also cautionary regarding her dose of propranolol given she does take carvedilol additionally. Assessment & Plan (05/03/2024 12:27 PM EDT): Recent hospitalization for suicidal ideation without plan, no HI, admitted to [facility] from 04/23 through 04/29/2024, discharged 4 days ago, doing much better clinically with no further SI. She had previously been on Effexor Remeron Wellbutrin and Abilify, having had to taper off the Effexor a couple months ago given suspicion that may have been causing some nausea, at some point apparently having had discontinuation of her Abilify and Remeron by her mental health provider, and during recent hospitalization had discontinuation of the Wellbutrin with initiation of Pristiq 50 mg daily. She relates her moods are doing much better at this time though not completely back to baseline, no side effects of the Pristiq. She saw her mental health [facility] [employer] provider yesterday with a follow-up to be pursued in 1 month, and is scheduled to follow-up with her standard counselor at [facility] tomorrow. Assessment & Plan (02/23/2024 2:32 PM EDT): Followed regularly by psychiatry, historically taking Remeron, Wellbutrin and Abilify, having been initiated on a tapering regimen of Effexor currently taking 37.5 mg daily with plan to discontinue. She is to follow-up with psychiatry to discuss further medication adjustments subsequently. Assessment & Plan (02/08/2024 5:45 PM EDT): Followed regularly by psychiatry, historically taking Remeron, Wellbutrin and Abilify, having been initiated on a tapering regimen of her Effexor initially at 225 mg daily, dropped to 150 mg daily, then with plan to reduce to 37.5 mg twice daily last week but given lack of insurance coverage of the latter dose, patient abruptly stopped her Effexor XR 150 mg daily cold . She developed 2 days later episodes of nausea and vomiting. Plan reinitiate Effexor on a tapering regimen as detailed above, anticipate improvement in her symptoms secondarily. Keep follow-up with psychiatry as scheduled. Assessment & Plan (11/30/2023 6:09 PM EST): Describes some mildly increasing depression taking Effexor XR 150 mg +75 mg each once daily for total 225 mg daily, in addition to Wellbutrin XL 300 mg daily, Remeron 30 mg nightly and Abilify 5 mg nightly. She has been getting therapy once or twice weekly over the last several weeks and also sees psychiatry monthly, with an improvement in her moods reported. No SI/HI. Keep related to home service consultant follow- up. Dyspepsia 05/27/2022 Assessment & Plan (07/18/2024 12:59 PM EDT): Continues dyspeptic symptoms despite taking pantoprazole 40 mg twice daily, history of EGD in 2020 revealing some gastritis. She had further evaluation of symptoms ultimately negative for gallbladder disease including HIDA scan unremarkable. She is awaiting appointment to see Dr. Rush for second opinion regarding symptoms after having seen Dr. Sanches originally. Continue current regimen using Zofran as needed. Assessment & Plan (03/24/2024 1:12 PM EDT): Ongoing complaint of dyspepsia/recurrent nausea and vomiting, primarily driven by oral intake, this despite taking pantoprazole 40 mg twice daily. She uses Zofran as needed. Further workup for nausea and vomiting pending. Assessment & Plan (11/30/2023 6:06 PM EST): Overall doing well on pantoprazole 40 mg twice daily, though she does complain of intermittent nausea and I have agreed to refill Zofran to be used as needed. Assessment & Plan (02/27/2023 8:15 AM EDT): Followed by Dr. Sanches. On daily pantoprazole. Colonoscopy and EGD next week. Currently holding Ozempic until current episode of nausea subsides Degenerative disc disease, cervical 05/27/2022 Endometriosis 05/27/2022 Fibromyalgia 05/27/2022 Assessment & Plan (11/30/2023 6:09 PM EST): Mild chronic intermittent myalgias, not lifestyle limiting. Generalized anxiety disorder 05/27/2022 Assessment & Plan (07/18/2024 1:07 PM EDT): Significant anxiety in conjunction with her depression, taking Pristiq 50 mg daily with recent addition of propranolol currently at 20 mg twice daily by her mental health provider. She is to follow-up with that provider in the next couple days. I did make suggestion that she could either have the addition of BuSpar, or increasing dose of her Pristiq to help augment her symptom control. I did relate caution regarding taking propranolol given she does take concomitant carvedilol. Assessment & Plan (05/03/2024 12:28 PM EDT): Anxiety level doing well, recent hospitalization for depression but relates her anxiety had not been a problem. She did have discontinuation of her Effexor a couple months ago, and has been initiated on Pristiq 50 mg daily just during her recent hospitalization, doing well. Assessment & Plan (02/23/2024 2:32 PM EDT): Followed regularly by psychiatry, historically taking Remeron, Wellbutrin and Abilify, having been initiated on a tapering regimen of Effexor currently taking 37.5 mg daily with plan to discontinue. She is to follow-up with psychiatry to discuss further medication adjustments subsequently. Assessment & Plan (02/08/2024 5:45 PM EDT): Followed regularly by psychiatry, historically taking Remeron, Wellbutrin and Abilify, having been initiated on a tapering regimen of her Effexor initially at 225 mg daily, dropped to 150 mg daily, then with plan to reduce to 37.5 mg twice daily last week but given lack of insurance coverage of the latter dose, patient abruptly stopped her Effexor XR 150 mg daily cold turkey. She developed 2 days later onset of multiple episodes of nausea and vomiting. Plan reinitiate Effexor on a tapering regimen as detailed above, anticipating improvement in her GI symptoms secondarily. Keep follow-up with psychiatry as scheduled. Assessment & Plan (11/30/2023 6:09 PM EST): On a variety medications as noted above including Effexor Remeron Wellbutrin and Abilify, getting counseling and psychiatric follow-up. Hiatal hernia 05/27/2022 Assessment & Plan (03/24/2024 1:12 PM EDT): Continues pantoprazole 40 mg twice daily. Hidradenitis suppurativa 05/27/2022 Hypertension 05/27/2022 Assessment & Plan (09/22/2024 8:44 PM EST): Well controlled. Continue current medications. Follow up next OV Assessment & Plan (07/18/2024 12:58 PM EDT): Satisfactory blood pressure control acutely as well as chronically taking carvedilol 12.5 mg twice daily, lisinopril 5 mg daily, and Aldactone 50 mg daily, also prescribed Lasix 20 mg daily to be used as needed for any significant fluid retention related to her diastolic heart failure, not currently requiring. Continue current regimen. Assessment & Plan (05/03/2024 12:24 PM EDT): Satisfactory blood pressure control acutely as well as chronically taking carvedilol 12.5 mg twice daily, lisinopril 5 mg daily, and Aldactone 50 mg daily, no longer on scheduled Bumex, this having been discontinued during recent hospitalization at [facility] given acute kidney injury with subsequent movement and renal function. Will add Lasix 20 mg daily to be used as needed for any significant fluid retention related to her diastolic heart failure. Assessment & Plan (03/24/2024 1:06 PM EDT): Satisfactory blood pressure control acutely as well as chronically taking carvedilol 12.5 mg twice daily, lisinopril 5 mg daily, spironolactone 50 mg daily, and Bumex 2 mg daily. Continue current regimen with monitoring. Assessment & Plan (01/25/2024 11:09 AM EDT): Satisfactory blood pressure control acutely as well as chronically taking carvedilol 12.5 mg twice daily, lisinopril 5 mg daily, Aldactone 50 mg daily, and Bumex 2 mg daily. Continue current regimen with monitoring. Assessment & Plan (12/29/2023 4:09 PM EDT): Satisfactory blood pressure control acutely as well as chronically taking carvedilol 12.5 mg twice daily, lisinopril 5 mg daily, and Bumex 2 mg daily. Continue current regimen with monitoring. Assessment & Plan (11/30/2023 5:56 PM EST): Satisfactory blood pressure control acutely as well as by history chronically taking carvedilol 12.5 mg twice daily, lisinopril 5 mg daily, also with benefit of Bumex 2 mg daily. Continue current regimen with monitoring, and continue efforts at healthy lifestyle with diet and exercise along with efforts at weight loss. Assessment & Plan (09/09/2023 8:30 AM EST): Blood pressure well-controlled on current medications, 119/74 in office today. Currently utilizing regimen of carvedilol 12.5 mg twice daily, lisinopril 5 mg daily, spironolactone 50 mg daily. Assessment & Plan (07/28/2023 12:46 PM EDT): Hypertension is stable . BP today is 124/80 Continue current treatment regimen. Dietary sodium restriction. Weight loss. Regular aerobic exercise. Blood pressure will be reassessed at the next regular appointment. Assessment & Plan (07/20/2023 4:24 PM EDT): Hypertension is worsening. BP today 158/98. Continue current treatment regimen. Dietary sodium restriction. Blood pressure will be reassessed 1 week . - We will reassess in 1 week after increasing Lasix dose. Assessment & Plan (01/28/2023 12:26 PM EDT): Hypertension is stable. Blood pressure today is 124/68. Continue current medications. Assessment & Plan (12/31/2022 6:08 PM EDT): Hypertension is well controlled today, blood pressure is 130/70. Continue current therapy, will reassess at next visit. Assessment & Plan (12/18/2022 5:11 PM EST): Blood pressure is elevated at today's visit 138/98 on recheck but the patient has not had her daily blood pressure medications today. She has not had her carvedilol or her diuretics. She denies any headache or change in vision or chest pain. She is advised to go home and take her blood pressure medications and check her blood pressure at home. Assessment & Plan (11/25/2022 4:43 PM EST): Blood pressure today 132/74. Her blood pressure was well controlled at the emergency room visit. Hypertension is a CAD risk. Hypothyroidism 05/27/2022 Assessment & Plan (11/30/2023 6:00 PM EST): Taking levothyroxine 88 mcg daily. Update TSH and free T4. Mild hyperlipidemia 05/27/2022 Assessment & Plan (11/30/2023 5:57 PM EST): Taking atorvastatin 80 mg nightly. Update lipid profile. Morbid (severe) obesity due to excess calories 0 05/27/2022 Assessment & Plan (01/25/2024 11:13 AM EDT): 1 pound weight gain in the last month after previously having had a 7 pound weight loss in the prior month, previously having been on Mounjaro 5 mg subcu weekly switched over to Ozempic 1 mg subcu weekly 1 month ago given lack of supply of the Mounjaro. Anticipate further improvement in weight loss with the addition in Ozempic to 2 mg subcu weekly, the latter being primarily prescribed for her diabetes. Emphasized need to increase her physical activity and continue pursuing healthy diet with small portions, and avoiding junk foods fast foods and sweetened drinks, eating more low-carb diet with small food portions. Assessment & Plan (12/29/2023 4:03 PM EDT): 7 pound weight loss in the last month having been prescribed Mounjaro most recently 5 mg subcu weekly, this for concomitant suboptimally controlled diabetes. Encouraged to improve her lifestyle with healthier diet and regular exercise as able. Increase Mounjaro up to 7.5 mg subcu weekly in order to benefit her diabetic control, assessing clinic response also regarding her weight loss. Reassess in 1 month. Assessment & Plan (11/30/2023 6:01 PM EST): Patient with significant obesity compounding her chronic health problems including diabetes hypertension hyperlipidemia and diastolic heart failure. Anticipate ongoing weight loss with increasing dosage regimen of Mounjaro prescribed primarily for her diabetes mellitus. We also discussed need for healthy low calorie low glycemic index diet and regular physical activity on a daily basis. We did also discuss the concept of bariatric surgery as a treatment option in the future depending on her clinical response to lifestyle change and GLP-1 agonist therapy. BRENDA (obstructive sleep apnea) 05/27/2022 Assessment & Plan (09/09/2023 8:30 AM EST): Patient reports good compliance with PAP therapy, followed by Dr. Anton Assessment & Plan (12/31/2022 6:09 PM EDT): Good control and compliance with PAP therapy, will continue. Assessment & Plan (12/22/2022 8:37 AM EST): She has a known history of obstructive sleep apnea. Her original study was completed at [facility]. She is currently on a BiPAP therapy. Her download has been requested from [facility]. She reports that she is a faithful user of PAP therapy. She denies any excessive daytime sleepiness or napping. She now wishes to follow her sleep apnea at this clinic. Supply order is sent to the DME of her choice. I did receive her sleep study from [facility] this is a split study with a baseline AHI of 36 and this is severe. I have reviewed her download from her PAP device and she has good control and good compliance. We will plan to continue PAP therapy. Occlusion and stenosis of left carotid artery Assessment & Plan (11/30/2023 5:59 PM EST): History of noncritical carotid vascular disease on the left. Continue risk factor modification including Lipitor, blood pressure control, diabetic control, and recommend strongly smoking cessation, the latter of which patient is not highly inclined to pursue at this time, also recommended initiation of aspirin 81 mg daily.. Other difficulties with micturition 05/27/2022 Other iron deficiency anemias 05/27/2022 Other specified disorders of veins 05/27/2022 Pain in left knee 05/27/2022 Personal history of colonic polyps 05/27/2022 Overview (07/19/2024): REPLACING DXS THAT WERE INACTIVATED AFTER THE 07/19 REGULATORY UPDATE Assessment & Plan (11/30/2023 6:04 PM EST): Most recent colonoscopy 02/2023 normal with no further polyps, 10-year follow-up recommended. Shingles 05/27/2022 Overview (05/27/2022): LUMBAR REGION Syncopal episodes 05/27/2022 Tinea unguium 05/27/2022 Type 2 diabetes mellitus wit hout complication, without long-term current use of insulin 05/27/2022 Overview (07/18/2024): Hemoglobin A1c 6.8% in 01/2024, no known secondary sequelae, hemoglobin 7.6% in 04/2024, 6.3% in 06/2024 Assessment & Plan (07/18/2024 12:59 PM EDT): Glycemic control today taking Farxiga 10 mg daily and Amaryl 1 mg daily, the last prescription x 2 months. She was unable to tolerate metformin and prior to that Ozempic given nausea. Continue current regimen along with efforts at healthy lifestyle with diet and exercise. Assessment & Plan (03/24/2024 1:11 PM EDT): Most recent hemoglobin A1c 6.8% in 03/2024, at the time having been taking Ozempic 2 mg subcu weekly. Subsequent discontinuation of Ozempic approximately 2 months ago given acute on chronic nausea and vomiting. Minimal benefit discontinue Ozempic but will hold for now pending workup further. Given history of heart failure with her diabetes, will initiate Jardiance 10 mg daily, with patient to monitor blood sugars closely. Will repeat a BMP in 1 month. Keep follow-up with Dr. Mary Anton of cardiology. Assessment & Plan (02/23/2024 2:35 PM EDT): Most recent hemoglobin A1c 6.8% in 01/2024 having been maintained on Ozempic 2 mg subcu weekly. This medication was discontinued several weeks ago given some increasing/acute on chronic nausea and vomiting. The severe nausea and vomiting has subsided with slowing down of her taper of Effexor XR, and her Ozempic chronically is not influenced her chronic mild nausea. She will be started back on Ozempic once she completes her spinal stimulator revision surgery on 03/04/2024. Unilateral primary osteoarthritis, left knee 06/2022 Vitamin D deficiency 05/27/2022 Assessment & Plan (11/30/2023 6:01 PM EST): On vitamin D 50,000 IU weekly. Update level. Abdominal wall seroma 01/08/2022 Seizure disorder 08/26/2021 Assessment & Plan (11/30/2023 6:09 PM EST): Reports good control of seizures taking Zonegran 100 mg 3 times daily and Lamictal 50 mg 3 times daily prescribed by Dr. Solis of neurology with regular neurology follow-up. Resolved Problems Problem Noted Date Diagnosed Date Resolved Date Acute on chronic diastolic ( congestive) heart failure 05/18/2023 09/09/2023 Prediabetes 08/08/2022 11/30/2023 Allergic rhinitis due to pollen 05/27/2022 11/30/2023 Atherosclerosis of other arteries 05/27/2022 03/11/2024 Assessment & Plan (12/29/2023 4:08 PM EDT): Patient does have a history of noncritical vascular disease in her carotids, has lower extremity pain with some correlation to exertion, possibly related to vascular claudication. Will obtain ABIs. Chronic obstructive pulmonar y disease, unspecified 05/27/2022 11/30/2023 Migraines 05/27/2022 11/27/2022 Tobacco use disorder 02/05/2022 023 Fibromyalgia 08/26/2021 11/27/2022 Migraine 08/26/2021 11/27/2022 Encounters Date Type Department Care Team Description 05/07/[address] [facility] [address] [place] [address] [place] [phone] Ronaldo Kong MD Candidal intertrigo 05/04/[address] [facility] [address] [place] [address] [place] [phone] Ronaldo Kong MD Primary hypertension; Chronic diastolic (congestive) heart failure 05/04/[address] [facility] [address] [place] [address] [place] [address] Ronaldo Kong MD 05/02/2025 Travel 04/19/[address] [facility] [address] [place] [phone] Daphney Anton MD Med Refill 04/19/[address] [facility] [address] [place] [address] [place] [address] Ronaldo Kong MD 04/14/[address] [facility] [address] [place] [phone] Daphney Anton MD Med Refill 04/14/[address] [facility] [address] [place] [address] [place] [phone] Ronaldo Kong MD 04/05/[address] [facility] [address] [place] [phone] Daphney Anton MD Med Refill 04/05/[address] [facility] [address] [place] [address] [place] [address] Ronaldo Kong MD 04/04/2025 11:30 AM EDT Office Visit [facility] [address] [place] [phone] Dania Gray APRN Primary hypertension; Acute midline low back pain without sciatica 04/04/2025 Travel 03/30/[address] [facility] [address] [place] [phone]WAESPE- CONCERN 03/16/[address] [facility] [address] [place] [phone] Daphney Anton MD Med Refill 03/12/[address] [place] [address] Daphney Anton MD Med Refill 03/12/2025 Refill [place] [address] [address] [place] [phone] Isaac Dania Copeland DISPATCHER [employer]TENA[employer]ICE Med Refill 03/08/2025 11:30 AM EDT Clinical Support No Requirements [address] [place] [phone] Pacemaker (Primary Dx) 03/08/2025 11:15 AM EDT Office Visit [address] [place] [address] Daphney Anton MD Precordial chest pain (Primary Dx); Pacemaker; BRENDA treated with BiPAP; Nonrheumatic mitral valve regurgitation; Other fatigue; Pure hypercholesterolemia 03/08/2025 Results Follow-Up [address] [place] [address] Daphney Anton MD 03/08/2025 Travel 03/01/2025 1:30 PM EDT Ancillary Procedure [address] [place] [phone] Swelling of lower extremity; Shortness of breath 03/01/[address] [place] [phone] Daphney Anton MD 03/01/2025 Travel 02/22/[address] [place] [phone] WAESPE -- UNABLETOWARMTRANSFER 02/14/2025 Telephone [place] [address] [address] [place] [phone] WAESPE-TEST RESULTS from Last 3 Months Immunizations Immunization Administration Dates Next Due COVID-19 (PFIZER) Purple Cap Monovalent 02/10/20 21,01/19/2021 Fluzone >6mos 07/11/2019 Fluzone (or Fluarix & Flulaval for VFC) >6mos Fluzone Quad >6mos (Multi-dose) 07/04/2022 Influenza TIV (IM) 07/11/2019 Influenza, Unspecified 07/04/2022,07/11/2019 Pneumococcal Conjugate 20-Valent (PCV20) 022 Family History Medical History Relation Name Comments Hypertension Brother 1 Other Brother 1 GLUCOSE INTOLER ANCE Hypertension Brother 2 Other Brother 2 GLUCOSE INTOLER ANCE Hypertension Brother 3 Coronary artery disease Father CABG Heart attack Father Glaucoma Mother Hyperlipidemia Mother Hypertension Mother Mental illness Mother Relation Name Status Comments Brother 1 Brother 2 Brother 3 Father (Age 62) Mother Alive Social History Tobacco Use Types Packs/Day Years Used Date Smoking Tobacco: Every Day Cigarettes 0.5 15 Passive Smoke Exposure: Current Smokeless Tobacco: Never Tobacco Cessation:Ready to Q uit: Yes; Counseling Given: Yes Comments:Patient trying to quit. Alcohol Use Standard Drinks/Week Comments Not Currently [...] or training? Not on file Preferred Language Greek 03/03/2024 PHQ-2 Answer Date Recorded Retired PHQ-9: [...] Pulse 87 04/04/2025 11:32 AM EDT Temperature 36.6 C (97.8 F) 07/18/2024 11:26 AM EDT Respiratory Rate 18 07/18/2024 11:26 AM EDT Oxygen Saturation 97% 04/04/2025 11:32 AM EDT Inhaled Oxygen Concentration - - Weight 129 kg (284 lb 8 oz) 04/04/2025 11:32 AM EDT Height 162.6 cm (5' 4 ) 04/04/2025 11:32 AM EDT Body Mass Index 48.83 04/04/2025 11:32 AM EDT Plan of Treatment Upcoming Encounters Date Type Department Care Team (Late st Contact Info) Description 05/16/2025 11:00 AM EDT Office Visit [facility] [address] [place] [phone] Daphney Anton MD [address] [place] [address] Health Maintenance Due Date Last Done Comments Annual Gynecologic Pelvic and Breast Exam 1970 COLOGUARD 2015 COLON CANCER SCREENING [address] COLONOGRAPHY 2015 FECAL OCCULT BLOOD TEST 2015 FIT Testing (1 year) 2015 URINE MICROALBUMIN-CREATININE RATIO (uACR) 04/10/2023 04/10/2022 DIABETIC EYE EXAM 06/24/2024 06/24/2023 (Patient-Reported (Performed Externally)) ANNUAL PHYSICAL 11/30/2024 11/30/2023 DIABETIC FOOT EXAM 12/28/2024 12/29/2023, 0 12/29/2023, 12/29/2023, Additional history exists MAMMOGRAM 12/28/2024 12/29/2023, 12/17, 06/04/2021, Additional history exists HEMOGLOBIN A1C 01/15/2025 07/18/2024, 02/16, 01/25/2024, Additional history exists COVID-19 Vaccine ( season) 2025 02/09/2021, 01/19/2021 Postponed from 06/19/2024 (Patient Refused) Hepatitis B (1 of 3 - 19+ 3-dose series) 07/13/2025 Postponed from 1989 (Patient Refused) INFLUENZA VACCINE 07/19/2025 08/30/2024, , 07/04/2022, Additional history exists LIPID PANEL 03/08/2026 03/08/2025, 11/19, 01/15/2023, Additional history exists COLONOSCOPY 01/11/2035 01/11/2025, 02/16, 01/22/2023, Additional history exists COLORECTAL CANCER SCREENING 01/11/2035 Pneumococcal Vaccine 50+ Completed 11/26/2022, 06/19 HEPATITIS C SCREENING Completed 11/27/2022 ZOSTER VACCINE Completed 11/21/2024, 10/17/2024 Medical Devices Implanted Type Area Floor Specialist Device Identifier Shelf Expiration Date Model / Serial / Lot Hip Implant Knee Implant Hemost Abs Surgicel Pwdr 3gm - [id number] Implanted:Qty : 1 on 08/12/2022 by Daphney Anton MD at [facility] Implant ETHICON DIV OF J AND J [id number] / / Kt Ld Stim Tined Axonics W/2/Sty Str/Crv - [id number] - [id number] Implanted:Qty : 1 on 08/13/2023 by Reta Lee MD at [facility] Implant N/A: Sacrum [employer] 02/05/2026 1201 / [id number] / Neurostm Sacral/Nerv Axonics Nonrechg W/Torq Wrench - [id number] - [id number] Implanted:Qty : 1 on 08/13/2023 by Reta Lee MD at [facility] Implant N/A: Sacrum [employer] 03/11/2024 4101 / [id number] / Ld Pm Tendril Sts 6f58cm [id number] - [id number] - [id number] Implanted:Qty : 1 on 08/12/2022 by Daphney Anton MD at [facility] Lead [employer] 03/18/20259685PE07 / [id number] / Ld Pm Tendril Sts 6f52cm [id number] - [id number] - [id number] Implanted:Qty : 1 on 08/12/2022 by Daphney Anton MD at [facility] Lead [employer] 01/16/[id number] / [id number] / Gen Pm Assurity Mri Dr Foster [id number] - [id number] - [id number] Implanted:Qty : 1 on 08/12/2022 by Daphney Anton MD at [facility] Pacemaker [employer] 01/17/2024 [id number] / [id number] / Pain Pump Pain Pump Procedures Procedure Name Priority Date/Time Associated Diagnosis Comments ECG 12-LEAD Routine 03/08/2025 12:06 PM EDT Precordial chest pain CBC AND DIFFERENTIAL STAT 03/08/2025 Precordial chest pain SCANNED - PULMONARY RESULTS 03/08/2025 SCANNED - LABS 03/08/2025 SCANNED - LABS 03/08/2025 TROPONIN STAT 03/08/2025 Precordial chest pain LIPID PANEL Routine 03/08/2025 Pure hypercholesterolemia COMPREHENSIVE METABOLIC PANEL STAT 03/08/2025 Precordial chest pain TSH RFX ON ABNORMAL TO FREE T4 STAT 03/08/2025 Precordial chest pain ECHO COMPLETE W/ DOPPLER AND COLOR FLOW Routine 03/01/2025 2:08 PM EDT Swelling of lower extremity Shortness of breath SCANNED - IMAGING 02/09/2025 POCT GLYCOSYLATED HEMOGLOBIN (HGB A1C) Routine 07/18/2024 12:56 PM EDT Type 2 diabetes mellitus without complication, without long-term current use of insulin SCANNED - MAMMO 12/29/2023 SCANNED - COLONOSCOPY 03/04/2023 HEPATITIS C ANTIBODY Routine 11/27/2022 2:35 PM EST Encounter for general adult medical examination with abnormal findings Need for hepatitis C screening test from Last 3 Months or Most Recently Relevant to Health Maintenance Results * ECG 12-LEAD (03/08/2025 12:06 PM EDT) Narrative Marialuisa Mckeon RegSched Rep - 03/08/2025 12:06 PM EDT Daphney Anton MD 03/08/2025 12:26 PM ECG 12 Lead Date/Time: 03/08/2025 12:06 PM Performed by: Daphney Anton MD Authorized by: Daphney Anton MD Comparison: compared with previous ECG from 02/15/2025 Similar to previous ECG Rhythm: sinus rhythm Rate: normal Conduction: conduction normal ST Segments: ST segments normal T Waves: T waves normal QRS axis: normal Other: no other findings Clinical impression: normal ECG Procedure Note Daphney Anton MD - 03/08/2025 11:15 AM EDT Images from the original note were not included. [facility] Provider Note Date: 03/08/2025 Name: Frannie Nuñez : 1970 PCP: System, Provider Not In Chief Complaint Patient presents with Pacemaker Check Results Pt states she is here today to discuss results of echo done on 03/01/25.Results are in [facility]. Sleep Apnea Pt states she is here for 31-90 day follow up for BRENDA. She received anew machine in January. She is doing well on current therapy. DL is in Epic. Subjective History of Present Illness Frannie Nuñez is a 54 y.o. female with PM, BRENDA who presentstoday for follow up. Reports that has been having high heart rates and palpitations Has shortness of air and reports that is about the same as it was. Pt has relayed that she got a new machine and wearing Bi-pap. States thathas no problems with air flow, mask or company. Does relay that feelstired and sluggish lately and that it does not take much to run out ofenergy. DL in EPIc and reviewed Feels like having chest pain with headaches all morning.States that is inthe left upper quad.rates intensity at about a 7 in chest.Rates intensityin head at about an 8. Nauseated but no vomiting and no fever or chills.Just started today. Has been checking B/P at home and relays no problems.Relays that swellingis about the same. Has has no dizziness and lightheadedness. No syncope or falls. ECHO on 03-01 needing results. EKG updated today Cardiac/Sleep history 1. Hypertension 2. Congestive heart failure - EF 45% on nuclear stress but subsequently normal, last echo 08-10diastolic dysfunction only, EF 65 3. High cholesterol 4. Sleep apnea 5. Sick sinus syndrome status post [employer] pacemaker iivzczypx98/25/2022 03/01/25 Echo Left ventricular systolic function is normal. Calculated leftventricular EF = 64.4% Left ventricular ejection fraction appears to be 61- 65%. Left ventricular diastolic function was indeterminate. Mild to moderate mitral valve regurgitation is present. Mild pulmonary hypertension is present. *[facility] 01/15/23- Angiographically normal coronary arteries. Normal leftventricular systolic function. Allergies Allergen Reactions Diphenhydramine Hives Adhesive Tape Rash OK with paper tape Bactrim [Sulfamethoxazole-Trimethoprim] Nausea Only Doxycycline Nausea Only Meclizine Rash Metformin Nausea Only Ozempic (0.25 Or 0.5 Mg-Dose) [Semaglutide(0.25 Or 0.5mg-Dos)] NauseaAnd Vomiting Tetanus Immune Globulin Hives Tetanus Toxoids Hives Current Outpatient Medications: albuterol sulfate HFA 108 (90 Base) MCG/ACT inhaler, , Disp: , Rfl: aspirin 81 MG EC tablet, Take 1 tablet by mouth Daily., Disp: , Rfl: baclofen (LIORESAL) 10 MG tablet, Take 1 tablet by mouth 4 (Four) Timesa Day., Disp: , Rfl: busPIRone (BUSPAR) 5 MG tablet, Take 1 tablet by mouth 2 (Two) Times aDay., Disp: , Rfl: carvedilol (COREG) 12.5 MG tablet, TAKE ONE TABLET BY MOUTH 2 TIMES ADAY (Patient taking differently: Take 2 tablets by mouth Every Night.),Disp: 180 tablet, Rfl: 1 cetirizine (zyrTEC) 10 MG tablet, TAKE ONE TABLET BY MOUTH ONCE A DAY,Disp: 30 tablet, Rfl: 3 cholecalciferol (VITAMIN D3) 1.25 MG (79204 UT) capsule, Take 1 capsuleby mouth Every 7 (Seven) Days., Disp: , Rfl: Continuous Glucose Sensor (Dexcom G6 Sensor), See Admin Instructions.,Disp: , Rfl: desvenlafaxine (PRISTIQ) 100 MG 24 hr tablet, Take 1 tablet by mouthDaily., Disp: , Rfl: dexlansoprazole (DEXILANT) 60 MG capsule, TAKE ONE CAPSULE BY MOUTHONCE a DAY, Disp: , Rfl: Emgality 120 MG/ML auto-injector pen, Inject 1 mL under the skin intothe appropriate area as directed Every 30 (Thirty) Days. Last dose07/25/23, Disp: , Rfl: famotidine (PEPCID) 20 MG tablet, Take 1 tablet by mouth 2 (Two) Timesa Day., Disp: , Rfl: fluticasone (FLONASE) 50 MCG/ACT nasal spray, USE 2 SPRAYS IN EACHNOSTRIL ONCE A DAY NEEDED FOR ALLERGIES, Disp: 16 g, Rfl: 3 folic acid (FOLVITE) 1 MG tablet, Take 1 tablet by mouth Daily., Disp:90 tablet, Rfl: 3 furosemide (LASIX) 20 MG tablet, TAKE ONE TABLET BY MOUTH 2 TIMES ADAY. TAKE ONE TABLET NEEDED FOR AGRESSIVE EDEMA OR WEIGHT GAIN GREATERTHAN 2 POUNDS OVER 24 HOURS, Disp: 60 tablet, Rfl: 0 lamoTRIgine (LaMICtal) 150 MG tablet, Take 1 tablet by mouth Daily. 2tablets once daily, Disp: , Rfl: lisinopril (PRINIVIL,ZESTRIL) 10 MG tablet, Take 1 tablet by mouthDaily., Disp: , Rfl: nicotine polacrilex (COMMIT) 4 MG lozenge, DISSOLVE 1 lozenge BY MOUTHEVERY 1 TO 2 HOURS DO not exceed more THAN 20 PER DAY, Disp: , Rfl: Nurtec 75 MG dispersible tablet, Take 75 tablets by mouth As Needed. Asneeded, Disp: , Rfl: nystatin (MYCOSTATIN) 371225 UNIT/GM powder, Apply topically to theappropriate area as directed 3 (Three) Times a Day., Disp: 60 g, Rfl: 1 ondansetron ODT (ZOFRAN-ODT) 8 MG disintegrating tablet, Place 1 tableton the tongue Every 8 (Eight) Hours As Needed for Nausea., Disp: 20tablet, Rfl: 0 QUEtiapine (SEROquel) 50 MG tablet, , Disp: , Rfl: rOPINIRole (REQUIP) 2 MG tablet, Take 2 tablets by mouth every night atbedtime., Disp: , Rfl: rosuvastatin (CRESTOR) 20 MG tablet, Take 1 tablet by mouth Daily.,Disp: , Rfl: Semaglutide,0.25 or 0.5MG/DOS, (OZEMPIC) 2 MG/1.5ML solutionpen-injector, Inject 0.25 mg under the skin into the appropriate area asdirected 1 (One) Time Per Week., Disp: , Rfl: spironolactone (ALDACTONE) 50 MG tablet, Take 1 tablet by mouth Daily.,Disp: 90 tablet, Rfl: 3 Syringe/Needle, Disp, (B-D 3CC LUER-ARSALAN SYR 25GX1 ) 25G X 1 3 ML misc,USE WITH B12 INJECTION, Disp: 1 each, Rfl: 2 Trelegy Ellipta 100-62.5-25 MCG/ACT inhaler, , Disp: , Rfl: vitamin B-12 (CYANOCOBALAMIN) 1000 MCG tablet, TAKE 1 TABLET BY MOUTHONCE A DAY BEFORE meals, Disp: , Rfl: zonisamide (ZONEGRAN) 100 MG capsule, Take 530 mg by mouth 3 (Three)Times a Day., Disp: , Rfl: Past Medical [...] knee states its everywhere Vitamin D deficiency Past Surgical History: Procedure Laterality Date CARDIAC CATHETERIZATION 04/30/2019 NORMAL CARDIAC CATHETERIZATION N/A 01/15/2023 Normal LHC, procedure: Left Heart Cath; Surgeon: Burt Roman MD;Location: [facility]; Service: Cardiovascular;Laterality: N/A; CARDIAC ELECTROPHYSIOLOGY PROCEDURE N/A 08/12/2022 Procedure: DEVICE IMPLANT; Surgeon: Daphney Anton MD; [facility]; Service: Cardiology; Laterality: N/A; CARPAL TUNNEL RELEASE Bilateral CERVICAL SPINE SURGERY X2 COLONOSCOPY 12/26/2020 Diverticulosis left side, 1.2 cm adenoma with hyperplastic polyps, [id number] recommended Dr. Sanches COLONOSCOPY 01/11/2025 ENDOSCOPY HYSTERECTOMY 2003 Secondary to endometriosis, prior Pap smears normal INTERSTIM PERC TEST Bilateral 07/16/2023 Procedure: AXONICS BILATERAL PERC TEST; Surgeon: Reta Lee MD;Location: [facility]; Service: Urology; Laterality: Bilateral; INTERSTIM PLACEMENT N/A 08/13/2023 Procedure: AXONICS STAGES 1 AND 2 LEAD AND GENERATOR PLACEMENT; Surgeon:Reta Lee MD; Location: [facility]; Service: Urology; Laterality:N/A; INTERSTIM REVISION N/A 03/10/2024 Procedure: AXONICS GENERATOR REVISION; Surgeon: Reta Lee MD;Location: [facility]; Service: Urology; Laterality: N/A; KNEE MENISCAL REPAIR Right 02/2019 PACEMAKER IMPLANTATION 07/2022 sick sinus syndrome PAIN PUMP INSERTION/REVISION Right Back REPLACEMENT TOTAL KNEE Right SHOULDER SURGERY Left no tendon to hold ball joint together, placed cords to hold jointtogether TOTAL HIP ARTHROPLASTY Bilateral TOTAL KNEE ARTHROPLASTY Left 2020 Dr rj anton Family History Problem Relation Age of Onset Mental illness Mother Glaucoma Mother Hyperlipidemia Mother Hypertension Mother Heart attack Father Coronary artery disease Father 50 CABG Hypertension Brother Other Brother GLUCOSE INTOLERANCE Hypertension Brother Other Brother GLUCOSE INTOLERANCE Hypertension Brother Social History Socioeconomic History Marital status: Tobacco Use Smoking status: Every Day Current packs/day: 0.50 Average packs/day: 0.5 packs/day for 15.0 years (7.5 ttl pk-yrs) Types: Cigarettes Passive exposure: Current Smokeless tobacco: Never Tobacco comments: Patient trying to quit. Vaping Use Vaping status: Never Used Substance and Sexual Activity Alcohol use: Not Currently Drug use: Never Sexual activity: Defer Objective Vital Signs: BP 130/88 (BP Location: Right arm, Patient Position: Sitting, Cuff Size:Large Adult) Pulse 91 Ht 162.6 cm (64 ) Wt 130 kg (287 lb) SpO2 95% BMI 49.26 kg/m Estimated body mass index is 49.26 kg/m as calculated from thefollowing: Height as of this encounter: 162.6 cm (64 ). Weight as of this encounter: 130 kg (287 lb). Physical Exam Constitutional: Appearance: Normal appearance. She is well-developed. HENT: Head: Normocephalic and atraumatic. Eyes: General: No scleral icterus. Pupils: Pupils are equal, round, and reactive to light. Cardiovascular: Rate and Rhythm: Normal rate and regular rhythm. Heart sounds: Normal heart sounds. No murmur heard. Pulmonary: Breath sounds: Normal breath sounds. No wheezing or rhonchi. Musculoskeletal: Right lower leg: Edema (mild) present. Left lower leg: Edema present. Skin: Capillary Refill: Capillary refill takes less than 2 seconds. Coloration: Skin is not cyanotic. Nails: There is no clubbing. Neurological: Mental Status: She is alert and oriented to person, place, and time. Motor: No weakness. Gait: Gait normal. Psychiatric: Mood and Affect: Mood normal. Behavior: Behavior is cooperative. Thought Content: Thought content normal. ECG 12 Lead Date/Time: 03/08/2025 12:06 PM Performed by: Daphney Anton MD Authorized by: Daphney Anton MD Comparison: compared with previousECG from 02/15/2025 Similar to previous ECG Rhythm: sinus rhythm Rate: normal Conduction: conduction normal ST Segments: ST segments normal T Waves: T waves normal QRS axis: normal Other: no other findings Clinical impression: normal ECG Assessment and Plan ASSESSMENTS AND ORDERS Diagnoses and all orders for this visit: 1. Precordial chest pain (Primary) - CBC & Differential; Future - Comprehensive Metabolic Panel; Future - High Sensitivity Troponin T; Future - TSH Rfx On Abnormal To Free T4; Future - Amylase; Future - Lipase; Future 2. Pacemaker 3. BRENDA treated with BiPAP 4. Nonrheumatic mitral valve regurgitation 5. Other fatigue - Vitamin B12 & Folate; Future Other orders - ECG 12 Lead Other orders ECG 12 Lead PLAN -reviewed echo in detail with patient -PMDL reviewed - good compliance and control on pap machine, I dont think this is thecause her fatigue -check b12 for fatigue -check troponins and stat labs for chest pain, EKG normal in the settingof chest pain and good heart cath in 2022 so unlikely ischemic -fatigue may be lung related or condition Follow Up Return in about 2 months (around 05/08/2025) for Recheck symptoms. Kamran Anton MD Cardiology and Sleep [facility] 03/08/2025 Please note that this explicitly excludes time spent on other separatebillable services such as performing procedures or test interpretation,when applicable. This note was created using dictation software which occasionallytranscribes nonsensical phrases. Please contact the provider if anyclarification is needed. us Daphney Anton MD ECG ORDERABLES Final Result * Pulmonary Results Scan (03/08/2025) us Daphney Anton MD PFT ORDERABLES Final Result * TSH Rfx On Abnormal To Free T4 (03/08/2025) Blood us Daphney Anton MD LAB BLOOD ORDERABLES Final R esult [facility]
[address] [place] [address], [place] [phone] * LABS SCANNED (03/08/2025) Only the most recent of2 resultswithin the time period is included. us Daphney Anton MD LAB BLOOD ORDERABLES Final R esult * High Sensitivity Troponin T (03/08/2025) Blood us Daphney Anton MD LAB BLOOD ORDERABLES Final R esult Performing Organization Address [facility] Co de Phone Number [facility]
[address] [id number], [place] [phone] * CBC & Differential (03/08/2025) Blood us Daphney Anton MD LAB BLOOD ORDERABLES Final R esult Performing Organization Address [facility] Phone Number [facility]
[address] [id number], [place] [phone] * Lipid Panel (03/08/2025) Blood us Daphney Anton MD LAB BLOOD ORDERABLES Final R esult Performing Organization Address [facility] Phone Number [facility]
[address] [place] [address], [place] [phone] * Comprehensive Metabolic Panel (03/08/2025) Blood us Daphney Anton MD LAB BLOOD ORDERABLES Final R esult Performing Organization Address [facility] Co de Phone Number [facility]
[address] [place] [address], [place] [phone] * ECHO COMPLETE W/ DOPPLER AND COLOR FLOW (03/01/2025 2:08 PM EDT) EF(MOD-bp) 64.4 % LVIDd 4.8 cm LVIDs 2.8 cm IVSd 1.16 cm LVPWd 1.20 cm FS 42.7 % IVS/LVPW 0.97 cm ESV(cubed) 20.8 ml LV Sys Vol (BSA corrected) 22.4 cm2 EDV(cubed) 110.6 ml LV Awad Vol (BSA corrected) 58.9 cm2 LV mass(C)d 214.0 grams LVOT area 3.5 cm2 LVOT diam 2.10 cm EDV(MOD-sp2) 175.0 ml EDV(MOD-sp4) 134.0 ml ESV(MOD-sp2) 55.9 ml ESV(MOD-sp4) 50.9 ml SV(MOD-sp2) 119.1 ml SV(MOD-sp4) 83.1 ml SVi(MOD-SP2) 52.4 ml/m2 SVi(MOD-SP4) 36.5 ml/m2 SVi (LVOT) 37.8 ml/m2 EF(MOD-sp2) 68.1 % EF(MOD-sp4) 62.0 % MV E max david 93.9 cm/sec MV A max david 102.0 cm/sec MV dec time 0.27 sec MV E/A 0.92 IVRT 124.0 ms LA ESV Index (BP) 19.2 ml/m2 Med Peak E' David 13.1 cm/sec Lat Peak E' David 11.3 cm/sec TR max david 282.5 cm/sec Avg E/e' ratio 7.70 SV(LVOT) 85.9 ml RVIDd 2.7 cm RV Base 3.3 cm RV Mid 2.8 cm RV Length 7.7 cm TAPSE (>1.6) 2.28 cm RV S' 14.6 cm/sec LA dimension (2D) 4.0 cm LV V1 max 112.0 cm/sec LV V1 max PG 5.0 mmHg LV V1 mean PG 3.0 mmHg LV V1 VTI 24.8 cm Ao pk david 144.0 cm/sec Ao max PG 8.3 mmHg Ao mean PG 5.0 mmHg Ao V2 VTI 31.2 cm ULYSSES(I,D) 2.8 cm2 Dimensionless Index 0.79 (DI) MV max PG 7.2 mmHg MV mean PG 3.0 mmHg MV V2 VTI 30.4 cm MV P1/2t 78.9 msec MVA(P1/2t) 2.8 cm2 MVA(VTI) 2.8 cm2 MV dec slope 339.5 cm/sec2 TR max PG 31.9 mmHg RVSP(TR) 34.9 mmHg RAP systole 3.0 mmHg PA V2 max 120.0 cm/sec Ao root diam 3.3 cm Sinus 3.3 cm Ascending aorta 3.2 cm Aortic arch 3.0 cm Anatomical Region Laterality Modality Ultrasound Narrative 03/01/2025 4:47 PM EDT Left ventricular systolic function is normal. Calculated left ventricular EF = 64.4% Left ventricular ejection fraction appears to be 61 - 65%. Left ventricular diastolic function was indeterminate. Mild to moderate mitral valve regurgitation is present. Mild pulmonary hypertension is present. Left Ventricle Left ventricular systolic function is normal. Calculated left ventricular EF = 64.4% Left ventricular ejection fraction appears to be 61 - 65%. Normal left ventricular cavity size noted. Left ventricular wall thickness is consistent with mild concentric hypertrophy. All left ventricular wall segments contract normally. Left ventricular diastolic function was indeterminate. Right Ventricle Normal right ventricular cavity size, wall thickness, systolic function and septal motion noted. Electronic lead present in the ventricle. Left Atrium Left atrial volume is mildly increased. Right Atrium Normal right atrial cavity size noted. Right atrial volume is 24 ml. An electronic lead is present in the right atrium. Mitral Valve Mild mitral annular calcification is present. Mild to moderate mitral valve regurgitation is present. No significant mitral valve stenosis is present. Tricuspid Valve The tricuspid valve is structurally normal with no significant stenosis present. Mild tricuspid valve regurgitation is present. Estimated right ventricular systolic pressure from tricuspid regurgitation is mildly elevated (35-45 mmHg). Mild pulmonary hypertension is present. Aortic Valve The aortic valve is structurally normal with no regurgitation or stenosis present. Pulmonic Valve The pulmonic valve is structurally normal with no significant stenosis present. There is trace pulmonic valve regurgitation present. Pericardium The pericardium is normal. There is no evidence of pericardial effusion. . Greater Vessels No dilation of the aortic root is present. No dilation of the sinuses of Valsalva is present. No dilation of the proximal aorta is present. No dilation of the ascending aorta is present. No dilation of the aortic arch is present. The descending aorta not well visualized. The inferior vena cava is normally sized. Normal IVC inspiratory collapse of greater than 50% noted. Study Quality The study is technically difficult for diagnosis. The quality of the study is limited due to patient body habitus. Normal sinus was the predominant rhythm observed during the procedure. Wall Scoring Score Index: 1.00 The left ventricular wall motion is normal. Dania Torrese Isaac DISPATCHER MAINTENANCE SERVICE CV ECHO ORDERABLES Final Result * IMAGING SCANNED (02/09/2025) Anatomical Region Laterality Modality Radiographic Amanda ging Daphney Anton MD IMG DIAGNOSTIC IMAGING ORDER MICHELLE Final Result * (ABNORMAL) POC Glycosylated Hemoglobin (Hb A1C) (07/18/2024 12:56 PM EDT) Pathologist [facility] Hemoglobin A1C 6.3(A) 4.5 - 5.7 % [facility] Lot Number [id number] [facility] Expiration Date 04/07/2026 [facility]ATRIC LABOR[facility]ORY Blood 07/18/2024 12:5 6 PM EDT Ronaldo Kong MD POINT OF CARE TEST ORDERABLES Final Result [facility]
[address] [place] [address], * MAMMO Scan (12/29/2023) Anatomical Region Laterality Modality Other Ronaldo Kong MD CHART REVIEW TABS Final Res ult * SCANNED - COLONOSCOPY (03/04/2023) us Ronaldo Kong MD CHART REVIEW TABS Final Res ult * Hepatitis C Antibody (11/27/2022 2:35 PM EST) Pathologist [facility] Hep C Virus Ab <0.1 0.0 - 0.9 s/co ratio [facility] Comment: Negative: < 0.8 Indeterminate: 0.8 - 0.9 Positive: > 0.9 HCV antibody alone does not differentiate between previous resolved infection and active infection. The CDC and current clinical guidelines recommend that a positive HCV antibody result be followed up with an HCV RNA test to support the diagnosis of acute HCV infection. [facility] Hepatitis C Virus (HCV) RNA, Diagnosis, VALE (290395) and Hepatitis C Virus (HCV) Antibody with reflex to Quantitative Real-time PCR (173304). Blood Structure of left upper limb / Unknown 11/27/2022 2:35 PM EST 11/27/2022 Comment:Blood Release to francis Crouch [facility] - 11/28/2022 10:07 AM EST Performed at: - Lab[address] [id number] [employer] Adviser: Walter Corona PhD, Phone: [phone] us Ronaldo Kong MD LAB BLOOD ORDERABLES Final Res ult 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
[2025-05-11 11:00] VITALS: BP 124/89; PULSE 72; RESP 14; O2SAT 94; BMI 44.3
--- NOTE | 2025-05-11 11:23 | EXP.PAIN.PRO ---
Procedure Date: 05/11/25 Time: 11:00 Anesthesiologist:: Magalis Trujillo APRN Complications:: None Pre-procedure Diagnosis:: Degenerative disc disease of lumbar spine with lumbar radiculopathy symptoms, chronic pain syndrome, sacroiliitis Post-procedure Diagnosis:: Same Indications for Procedure:: Patient is a pleasant 54-year-old female who presents today for worsening low back pain. She rates her pain as 7 out of 10. She states it is all across to her back and hips and goes down into her legs. Patient is in constant pain. She states that she just cannot do anything due to the worsening symptoms. She states that she is unable to do ADLs like cooking and cleaning. She has to stop and take multiple breaks. The pain is worse with increased activity or walking. She did go and see Dr. Piper who did tell her that she is not a surgical candidate. Patient was recommended to try again for the spinal cord stimulator. We did previously look into this however her last insurance company did not need it. Patient does state today that her insurance has now changed and would like to see about proceeding forward with this as well as possible additional injections. She is currently managed with morphine 2 mg/mL with a daily dose of 0.5724 mg/day her Husam has been reviewed and is appropriate. Physical Exam: General: Alert and oriented x3, no acute distress, pleasant and cooperative Lungs: Respirations even and unlabored, symmetrical chest expansion Eyes: PERRL Musculoskeletal: Flexion and extension of lumbar [spine] somewhat guarded secondary to pain, [antalgic gait noted] positive leg raise Neurological: Speech clear, no gross sensory deficit Procedure Details:: Informed consent was obtained and the risk and benefits of the procedure were explained to the patient. Patient did have noninvasive monitoring was placed including noninvasive blood pressure cuff and pulse oximeter. Patient's pump was interrogated and was reprogrammed to morphine 0.715 mg/day. The patient tolerated the procedure well with no complications. Plan and Disposition:: Patient tolerated the procedure well with no complications and was discharged neurologically intact. Patient is experiencing worsening pain in her low back with numbness and tingling into her lower extremities. Patient did have limited range of motion of her lumbar spine with a positive leg raise. I did discuss with patient that I do believe they would benefit from a lumbar epidural steroid injection. Risk and benefits were discussed with patient and the patient would like to proceed forward with this plan of care. Patient is not on any blood thinners. Patient has tried and failed conservative therapy including oral medications, heat and ice, topicals and continued at home stretching exercise for longer than 12 weeks between injections. She has also been evaluated by neurosurgery and is not a surgical candidate. Patient has had chronic back pain for longer than 6 months. Patient has not had any lumbar epidurals for at least 2 years. We will schedule the patient for an LESI L5-S1 under fluoroscopy. I did also review over with the patient that we will proceed forward with a new psychological evaluation and if she is deemed an appropriate candidate we will proceed forward with the spinal cord stimulator trial. Patient agrees with this option. Patient has been instructed to contact the clinic with any concerns before the next appointment. Dr. Banerjee has reviewed this note and agrees with this plan of care. This note was dictated using voice recognition software and make contain errors or omissions. All injections are used with Lidocaine, Bupivacaine and dexamethasone. Occasionally urine drug screen is needed to verify patient's compliance with our office pain contract. This is ordered based off specific treatments related to chronic pain with the potential to abuse certain medications. Patient will return to clinic on or before their next intrathecal refill date. We will see the patient back in the clinic at the next intrathecal refill. Patient has been instructed to contact the clinic with any concerns before the next appointment. Dr. Banerjee has reviewed this note and agrees with this plan of care. This note was dictated using voice recognition software and make contain errors or omissions. -- It Is medically necessary for this patient to continue to have their intrathecal pump refilled at regular intervals. This patient had an intrathecal pain pump implanted after meeting criteria of chronic intractable pain for greater than 3 months and failing conservative treatments. Patient has committed and been compliant to the treatment plan and all planned follow up care. Since implantation of the intrathecal pain pump, the patient has had decreased pain and been more functional. Oral medications have been reduced including intake of oral opioids. Patient continues to do well with intrathecal therapy with decrease in pain symptoms and increase in functional status. Stopping intrathecal medications can lead to life threatening withdrawal, seizures, cardiac arrest, severe pain, and possible . Pumps that are not refilled at regular intervals can be damages and cause and need for replacement. We continually titrate dose and concentration to optimize pain relief and function. We are limited in concentration for certain drugs to safely deliver medications through the pump and stay within the recommendations from the Polyanalgesic Consensus Committee Guidelines. Depending on dose and concentration these pumps may need to be refilled sooner than 3 months as we titrate. A UDS is needed to verify patient's compliance with our office pain contract. This is ordered based off specific treatments related to chronic pain with the potential to abuse certain medications.
== END 2025-05-11 23:59 | disposition home or self-care (01) ==
PROVIDERS: Visit Provider Nurse Practitioner Family
DX: M51.16 Intervertebral disc disorders with radiculopathy, lumbar region (principal); G89.4 Chronic pain syndrome; Z79.891 Long term (current) use of opiate analgesic
CPT/HCPCS: 62368; 99212; 99213; G0463

== ENCOUNTER 2025-05-19 09:46 | Outpatient (CLI) | payer OTHER, SELFPAY ==
--- OUTSIDE RECORDS SUMMARY | 2024-05-30 09:20 | XMS_ITS ---
Author Organization [facility] Address [address] [place] [address] Care Team Providers Care Site Specialist Name Role Phone Harpreet Castaneda Unavailable [phone] Encounters Encounter Location Date Provider Diagnosis [facility] [address] [facility] [address] [place] [address] 05/30/2024 Harpreet Castaneda Plan Of Treatment Next Appt Details Provider Name:Harpreet Castaneda, 05/23/2025 10:40:00 AM, [address] [facility], [address], [place], [address], Progress Notes * Frannie NUÑEZDOB:[birth year] (54 yo F)Acc No.[id number]:05/30/2024 progress note Patient: Frannie ZAVALA Provider: Denzel Castaneda MD :1970 A ge:53 Y S ex:Female Date:05/30/2024 Address:[address], [id number] Subjective: * Chief Complaints: * * Medical History: Objective: * Vitals: Assessment: Plan: * Treatment: Care Plan: * Problems: * Billing Information: * Visit Code: * Procedure Codes: * Electronic signature of Cici Castaneda M.D. on 05/19/2025 at 09:50 AM EDT Sign off status: Pending * Provider: Denzel Castaneda MD Date: 0 05/30/2024 Generated for Cayla james/Linda/Krystynaitting on: 0 05/19/2025 09:50 AM EDT
--- OUTSIDE RECORDS SUMMARY | 2024-05-30 09:20 | XMS_ITS ---
Author Organization [facility] Address [address] [place] [address] Care Team Providers Care Network Architect Name Role Phone Ronaldo Kong Primary Care Provider Unavailabl Harpreet Pastrana Unavailable [phone] Jennie Royal Unavailable Unavailable Encounters Encounter Location Date Provider Diagnosis [address] [place] [address] 05/30/2024 Harpreet Castaneda Plan Of Treatment No Information Progress Notes * Frannie NUÑEZDOB:[birth year] (54 yo F)Acc No.[id number]:05/30/2024 Progress Note Patient: Frannie ZAVALA Provider: Denzel Castaneda MD :1970 A ge:53 Y S ex:Female Date:05/30/2024 Address:[address], [id number] Pcp:Ronaldo Kong Subjective: * Chief Complaints: * * Medical History: Objective: * Vitals: Assessment: Plan: * Treatment: * * Electronic signature of Cici Castaneda MD on 05/19/2025 at 08:50 AM CDT Sign off status: Pending * Provider: Denzel Castaneda MD Date: 05/30/2024 Generated for Cayla james/Linda/eTransmitting on: 05/19/2025 08:50 AM CDT
--- OUTSIDE RECORDS SUMMARY | 2025-04-04 11:30 | XMS_ITS | Encounter Summary ---
[facility] [address] [place] [address] Care Team Providers Care Fabrication Technician Name Role Phone System, Provider Not In [...] Description 04/04/2025 11:30 AM EDT Office Visit [facility] CARDIOLOG[facility] [address] [place] [phone] Dania Gray APRN [address] [place] [address] Primary hypertension; Acute midline low back pain [...] or training? Not on file Preferred Language East Timorese 03/03/2024 PHQ-2 Answer Date Recorded Retired PHQ-9: [...] present. ?? Mild pulmonary hypertension is present. *[facility] 01/15/23- Angiographically normal coronary arteries. Normal left [...] Rfl: 3 cholecalciferol (VITAMIN D3) 1.25 MG (22974 UT) capsule, Take 1 capsule by mouth Every 7 (Seven) Days., Disp: , Rfl: Continuous Glucose Sensor ([employer] G6 Sensor), See Admin Instructions., Disp: , [...] As needed, Disp: , Rfl: nystatin (MYCOSTATIN) [id number] UNIT/GM powder, Apply topically to the appropriate [...] already scheduled May 15. Patient or patient motor vehicle representative verbalized consent for the use of [...] Care Team (Late st Contact Info) Description 11/13/2025 11:00 AM EST Office Visit [facility] CARDIOLOG[facility] [address] [place] [phone] Daphney Hall MD [address] [place] [address] 11/13/2025 11:00 AM EST Clinical Support No Requirements [facility] [address] [place] [phone] documented as of this encounter Visit Diagnoses Diagnosis Primary hypertension Unspecified essential hypertension Acute midline low back pain without sciatica documented in this encounter Additional Health Concerns Assessment Noted Time PHQ-2 Depression Total Score: 3 07/18/20 24 11:28 AM EDT documented as of this encounter Care Teams Fabrication Technician Relationship Specialty Start Date End Date System, [place] [address] PCP - General 02/14/25 documented as of this encounter
--- OUTSIDE RECORDS SUMMARY | 2025-05-16 11:00 | XMS_ITS | Encounter Summary ---
[facility] Address [address] [place] [address] Care Team Providers Care Custom Ski Maker Name Role Phone System, Provider Not [...] well on current therapy. DL is in [employer]. Encounter Details Date Type Department Care Team (Late st Contact Info) Description 05/16/2025 11:00 AM EDT Office Visit [facility] C[facility]IOLOG[facility] [address] [place] [address] Daphney Anton MD [address] [place] [address] Other fatigue (Primary Dx); BRENDA treated [...] or training? Not on file Preferred Language Djiboutian 03/03/2024 PHQ-2 Answer Date Recorded Retired PHQ-9: [...] well on current therapy. DL is in [facility]. Subjective History of Present Illness Frannie [...] present. ?? Mild pulmonary hypertension is present. *[facility] 01/15/23- Angiographically normal coronary arteries. Normal [...] Rfl: Continuous Glucose Transmitter (Dexcom G6 Transmitter) [facility] [place], See Admin Instructions., Disp: , Rfl: desvenlafaxine [...] As needed, Disp: , Rfl: nystatin (MYCOSTATIN) [id number] UNIT/GM powder, Apply topically to the appropriate [...] Heart Cath; Surgeon: Burt Roman MD; Location: [facility] CATH INVASIVE LOCATION; Service: Cardiovascular; Laterality: N/A; [...] Description 11/13/2025 11:00 AM EST Office Visit [facility] [address] [address] Daphney Anton MD [address] [place] [address] 11/13/2025 11:00 AM EST Clinical Support No Requirements [facility] [address] [address] documented as of this encounter Visit Diagnoses Diagnosis Other fatigue- Primary BRENDA treated with BiPAP Pacemaker Cardiac pacemaker in situ Primary hypertension Unspecified essential hypertension documented in this encounter Additional Health Concerns Assessment Noted Time PHQ-2 Depression Total Score: 3 07/18/20 24 11:28 AM EDT documented as of this encounter Care Teams Custom Ski Maker Relationship Specialty Start Date End Date System, [place] [address] PCP - General 02/14/25 documented as of this encounter
--- OUTSIDE RECORDS SUMMARY | 2025-05-19 09:50 | XMS_ITS | Encounter Summary ---
[facility] Address [address] [place] [phone] Care Team Providers Care Admissions Supervisor Name Role Phone System, Provider Not In Primary Care Provider Un available Reason for Visit * Reason Comments Med Refill Encounter Details Date Type Department Care Team (Late st Contact Info) Description 05/12/2025 Refill [facility] PRIMARY CARE [address] [place] [address] [place] [address] Ronaldo Kong MD [address] [place] [address] [place] [address] Social History Tobacco Use Types Packs/Day Years [...] Description 11/13/2025 11:00 AM EST Office Visit [facility] C[facility] [address] [address] Daphney Hall MD [address] [address] 11/13/2025 11:00 AM EST Clinical Support No Requirements [facility] [address] [address] documented as of this encounter Visit Diagnoses Not on filedocumented in this encounter Additional Health Concerns Assessment Noted Time PHQ-2 Depression Total Score: 3 07/18/20 24 11:28 AM EDT documented as of this encounter Care Teams Admissions Supervisor Relationship Specialty Start Date End Date System, [place] [address] PCP - General 02/14/25 documented as of this encounter
--- OUTSIDE RECORDS SUMMARY | 2025-05-19 09:50 | XMS_ITS | Encounter Summary ---
[facility] Address [address] [place] [id number] Care Team Providers Care Gill Net Stringer Name Role Phone System, Provider Not In Primary Care Provider Un available Reason for Visit * Reason Comments Med Refill Encounter Details Date Type Department Care Team (Late st Contact Info) Description 04/14/2025 Refill [facility] C[facility] [address] [place] [address] Daphney Hall MD [address] [place] [address] Med Refill Social History Tobacco Use [...] or training? Not on file Preferred Language [place] Islander 03/03/2024 PHQ-2 Answer Date Recorded Retired [...] documented as of this encounter Care Teams Gill Net Stringer Relationship Specialty Start Date End Date System, [place] [address] PCP - General 02/14/25 documented as of this encounter
--- OUTSIDE RECORDS SUMMARY | 2025-05-19 09:50 | XMS_ITS | Encounter Summary ---
Author Organization [facility] Address [address] [place] [address] Care Team Providers Care Consumer Services Advisor Name Role Phone Ronaldo Kong MD Primary Care Provider [phone] Encounter Details Date Type Department Care Team (Late st Contact Info) Description 03/03/2025 Telephone [facility] [address] [place] [address] Magalis Reid, DIRECTOR OF ENTERPRISE APPLICATIONS, DNP [address] [place] [address] Social History Tobacco Use Types [...] to reschedule UDS. thanks Best contact number: [phone] (mobile) Optimal time of day to reach [...] Description 06/01/2025 9:20 AM EDT Office Visit [facility] [address] [place] [address] Magalis Reid, DIRECTOR OF ENTERPRISE APPLICATIONS, DNP [address] [place] [address] documented as of this encounter Visit Diagnoses Not on filedocumented in this encounter Additional Health Concerns Assessment Noted Time A fall risk assessment has been complete d for the patient 10/02/2023 1:33 PM EST A Body Mass Index follow-up plan has been documented for the patient 11/14/2024 1:45 PM EST documented as of this encounter Care Teams Consumer Services Advisor Relationship Specialty Start Date End Date Ronaldo Kong MD [address] [place] [address] [place] [address] PCP - General 03/01/21 Guru Ma [address] [place] [address] [id number] [facility] [address] Referring Physician Obstetrics and Gynecology 09/02/21 documented as of this encounter
--- OUTSIDE RECORDS SUMMARY | 2025-05-19 09:50 | XMS_ITS | Patient Health Record ---
Author Organization [facility] . 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 Problem Type 2 diabetes mellitus (23130532) Type 2 diabetes mellitus (E11.9) Active confirmed Problem Hypertension (40336646) HTN (hypertension) (I10) Active confirmed Problem Morbid obesity (827803986) Morbid obesity (E66.01) Active confirmed Problem Obstructive sleep apnea syndrome (80096884) BRENDA (obstructive sleep apnea) (G47.33) Active confirmed Problem Obese (471306625) Obese (E66.9) Active confirmed Problem Brain tumor (348613502) Brain tumor (D49.6) Active confirmed Problem Chronic kidney disease stage 2 (548983255) Chronic kidney disease (CKD) stage G2/A1, mildly decreased glomerular filtration rate (GFR) between 60-89 mL/min/1.73 square meter and albuminuria creatinine ratio less than 30 mg/g (N18.2) Active confirmed Problem Obstructive sleep apnea syndrome (39368674) BRENDA (obstructive sleep apnea) (G47.33) Active confirmed Plan Of Treatment Pending Test Test Name Order Date CBC WITH DIFF 06/01/2023 CBC WITH DIFF 11/30/2023 IRON, TIBC AND FERRITIN PANEL 11/30/2023 IRON, TIBC AND FERRITIN PANEL 07/29/2022 CMP14+eGFR 07/29/2022 CMP14+eGFR 12/01/2022 CMP14+eGFR 11/30/2023 CMP14+eGFR 08/01/2021 URINALYSIS COMPLETE 08/01/2021 URINALYSIS COMPLETE 05/30/2021 URINALYSIS COMPLETE 11/30/2023 URINALYSIS COMPLETE 06/01/2023 CBC W AUTOMATED DIFFERENTIAL 12/01/2022 CBC W AUTOMATED DIFFERENTIAL 07/29/2022 CBC W AUTOMATED DIFFERENTIAL 05/30/2021 CBC W AUTOMATED DIFFERENTIAL 08/01/2021 HGB A1C (GLYCOHEMOGLOBIN) 11/30/2023 HGB A1C (GLYCOHEMOGLOBIN) 12/01/2022 BMP 06/01/2023 BMP 05/30/2021 Future Test Test Name Order Date Urinalysis, Complete 07/29/2022 .Renal Function Panel 07/29/2022 HGB & HCT 07/29/2022 Insurance Providers Payer Name Payer Address Payer Phone Subscriber Number Group Number Insured Name Patient Relationship to Insured Coverage Start Date Coverage End Date Michael [employer] [place] ([place]) [address] [address] [place] [address] [id number] Frannie Nuñez Self - patient is the insured Medical (General) History Medical History History ICD Code Anemia Avitaminosis B 12 deficiency Carotid artery stenosis CHF 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
--- OUTSIDE RECORDS SUMMARY | 2025-05-19 09:50 | XMS_ITS | Encounter Summary ---
[facility] Address [address] [place] [address] Care Team Providers Care Rn Cardiology Name Role Phone System, Provider Not In [...] 02/17 Potentially Unsafe Housing Conditions Not on smamy e 03/10/2024 Disabilities Answer Date Recorded Concentrating, Remembering, or Making Decisions Difficulty Not on file 03/10/2024 Difficulty Managing Errands Independently no 03/10/2024 Education Answer Date Recorded Help with school or training? Not on file Preferred Language Monegasque 03/03/2024 PHQ-2 Answer Date Recorded Retired PHQ-9: [...] Description 11/13/2025 11:00 AM EST Office Visit [facility] [address] [address] Daphney Hall MD [address] [place] [address] 11/13/2025 11:00 AM EST Clinical Support No Requirements [facility] [address] [address] documented as of this encounter Visit Diagnoses Not on filedocumented in this encounter Additional Health Concerns Assessment Noted Time PHQ-2 Depression Total Score: 3 07/18/20 24 11:28 AM EDT documented as of this encounter Care Teams Rn Cardiology Relationship Specialty Start Date End Date System, [place] [address] PCP - General 02/14/25 documented as of this encounter
--- OUTSIDE RECORDS SUMMARY | 2025-05-19 09:50 | XMS_ITS | Encounter Summary ---
[facility] Address [address] [place] [phone] Care Team Providers Care Millinery Salesperson Name Role Phone System, Provider Not In Primary Care Provider Un available Reason for Visit * Reason Comments Med Refill Encounter Details Date Type Department Care Team (Late st Contact Info) Description 04/05/2025 Refill [facility] CARDIOLOG[facility] [address] [place] [address] Daphney Hall MD [address] [place] [address] Med Refill Social History Tobacco Use [...] or training? Not on file Preferred Language Citizen Of [place] 03/03/2024 PHQ-2 Answer Date Recorded Retired PHQ-9: [...] Description 11/13/2025 11:00 AM EST Office Visit [facility] [address] [address] Daphney Hall MD [address] [address] 11/13/2025 11:00 AM EST Clinical Support No Requirements [facility] [address] [address] documented as of this encounter Visit Diagnoses Not on filedocumented in this encounter Additional Health Concerns Assessment Noted Time PHQ-2 Depression Total Score: 3 07/18/20 24 11:28 AM EDT documented as of this encounter Care Teams Millinery Salesperson Relationship Specialty Start Date End Date System, [place] [address] PCP - General 02/14/25 documented as of this encounter
--- OUTSIDE RECORDS SUMMARY | 2025-05-19 09:50 | XMS_ITS | Encounter Summary ---
[facility] Address [address] [place] [phone] Care Team Providers Care Intelligence Director Name Role Phone System, Provider Not In Primary Care Provider Un available Reason for Visit * Reason Comments Med Refill Encounter Details Date Type Department Care Team (Late st Contact Info) Description 05/12/2025 Refill [facility]IMARY CARE [address] [place] [address] [place] [address] Ronaldo Kong MD [address] [place] [address] [place] [address] Primary hypertension; Chronic diastolic (congestive) heart failure [...] or training? Not on file Preferred Language Dutch 03/03/2024 PHQ-2 Answer Date Recorded Retired PHQ-9: [...] Description 11/13/2025 11:00 AM EST Office Visit [facility]IOLOG[facility] [address] [address] Daphney Hall MD [address] [address] 11/13/2025 11:00 AM EST Clinical Support No Requirements [facility] [address] [address] documented as of this encounter Visit Diagnoses Diagnosis Primary hypertension Unspecified essential hypertension Chronic diastolic (congestive) heart failure documented in this encounter Additional Health Concerns Assessment Noted Time PHQ-2 Depression Total Score: 3 07/18/20 24 11:28 AM EDT documented as of this encounter Care Teams Intelligence Director Relationship Specialty Start Date End Date System, [place] [address] PCP - General 02/14/25 documented as of this encounter
--- OUTSIDE RECORDS SUMMARY | 2025-05-19 09:50 | XMS_ITS | Clinical Summary ---
Author Organization [facility] Address [address] [place] [address] Care Team Providers Care Food And Beverage Lead Name Role Phone System, Provider Not In [...] 30 (Thirty) Days. Last dose 07/25/23 08/15/20 Active Nurtec 75 MG dispersible tablet Take 75 tablets by mouth As Needed. As needed 08/15/20 Active cetirizine (zyrTEC) 10 MG tablet TAKE ONE TABLET BY MOUTH ONCE A DAY 30 tablet 3 04/08/20 24 Active lamoTRIgine (LaMICtal) 150 MG tablet Take 1 tablet by mouth Daily. 2 tablets once daily Active nystatin (MYCOSTATIN) 841857 UNIT/GM powderIndications: Candidal intertrigo Apply topically to the appropriate area as directed 3 (Three) Times a Day. 60 g 1 05/03/20 24 Active fluticasone (FLONASE) 50 MCG/ACT nasal [...] every night at bedtime. 08/19/20 24 Active rosuvastatin (CRESTOR) 20 MG tablet Take [...] Sensor) See Admin Instructions. 01/21/20 25 Active dexlansoprazole (DEXILANT) 60 MG capsule TAKE ONE CAPSULE BY MOUTH ONCE a DAY Active nicotine polacrilex (COMMIT) 4 MG lozenge DISSOLVE 1 lozenge BY MOUTH EVERY 1 TO 2 HOURS DO not exceed more THAN 20 PER DAY Active carvedilol (COREG) 12.5 MG tablet TAKE ONE TABLET BY MOUTH 2 TIMES A DAY 60 tablet 5 03/14/20 25 Active Continuous Glucose Transmitter (Dexcom G6 Transmitter) [facility] [place] [place] See Admin Instructions. 04/18/20 25 Active FREESTYLE LITE test strip 05/15/20 25 Active Linzess 145 MCG capsule capsule TAKE ONE CAPSULE BY MOUTH ONCE A DAY 30 MINUTES BEFORE MEAL 05/12/20 25 Active desvenlafaxine (PRISTIQ) 50 MG 24 hr tablet Take 1 tablet by mouth Daily. 05/08/20 25 Active ondansetron ODT (ZOFRAN-ODT) 4 MG disintegrating tablet DISSOLVE 2 TABLETS ON THE TONGUE 2 TIMES A DAY NEEDED 05/12/20 25 Active cholecalciferol (VITAMIN D3) 1.25 MG (13562 UT) capsule Take 1 capsule by mouth Every 7 (Seven) Days. 06/25/20 025 Discontin ued(*Ther apy completed ) folic acid (FOLVITE) 1 MG tabletIndications: Folic acid deficiency Take 1 tablet by mouth Daily. 90 tablet 3 12/02/19 24 025 Discontin ued(*Ther apy completed ) Syringe/Needle, Disp, (B-D 3CC LUER-ARSALAN SYR 25GX1 ) 25G X 1 3 ML misc USE WITH B12 INJECTION 1 each 2 04/04/20 24 025 Discontin ued(*Ther apy completed ) spironolactone (ALDACTONE) 50 MG tabletIndications: Primary hypertension,Chron ic diastolic (congestive) heart failure Take 1 tablet by mouth Daily. 90 tablet 3 05/03/20 24 025 Discontin ued(*Ther apy completed ) ondansetron ODT (ZOFRAN-ODT) [address] 1 tablet on the tongue Every 8 (Eight) Hours As Needed for Nausea. 20 tablet 07/13/20 025 Discontin ued(*Ther apy completed ) busPIRone (BUSPAR) 5 MG tablet Take 1 tablet by mouth 2 (Two) Times a Day. 025 Discontin ued(*Ther apy completed ) famotidine (PEPCID) 20 MG tablet Take 1 tablet by mouth 2 (Two) Times a Day. Discontin ued(*Ther apy completed ) Semaglutide,0.25 or 0.5MG/DOS, (OZEMPIC) 2 MG/1.5ML solution pen-injector Inject 0.25 mg under the skin into the appropriate area as directed 1 (One) Time Per Week. 02/09/20 025 Discontin ued(*Ther apy completed ) vitamin B-12 (CYANOCOBALAMIN) 1000 MCG tablet TAKE 1 TABLET BY MOUTH ONCE A DAY BEFORE meals 02/15/20 025 Discontin ued(*Ther apy completed ) desvenlafaxine (PRISTIQ) 100 MG 24 hr tablet Take 1 tablet by mouth Daily. 02/21/20 25 025 Discontin ued(*Ther apy completed ) Motegrity 2 MG tablet Take 1 tablet by mouth Daily. 03/31/20 25 025 Discontin ued(*Ther apy completed ) Active Problems Problem Noted Date Diagnosed Date [...] complaints of nausea. 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 Wei Diamond in [place]. Denies any associated vomiting, diarrhea or abdominal pain with her nausea. States she is lost 30 pounds in the last 2 months due to her nausea and lack of appetite -Patient Zofran increased to 8 mg every 6 hours as needed -Per a prior discussion with her and Dr. Kong referral to Dr. Wei Diamond in [place] placed today. She is going to be [...] PM EDT): Patient had lab testing through [facility] yesterday having been diagnosed with UTI, [...] A1c of 7.6% during recent hospitalization at [facility], previously 6.8% in 03/2024. She had [...] Update yearly screening low-dose chest CT with 24-cmgk-bhaz history of smoking ongoing. Advised regarding need for smoking cessation for health risk reduction. BRENDA treated with BiPAP 11/30/2023 Assessment & Plan (01/17/2025 11:04 AM EDT): She is currently on BiPAP therapy and is using a SoundFitStation BiPAP device. She feels like it is [...] A1c of 7.6% during recent hospitalization at [facility], previously 6.8% in 03/2024. She had [...] HIDA scan. Status post left heart catheterization Overview (03/13/2023): 01/15/2023: Normal coronary arteries, normal LV function Assessment & Plan (03/24/2024 1:07 PM EDT): Left heart catheterization 12/2022 with normal coronary arteries. Continue risk factor modification. Assessment & Plan (11/30/2023 5:58 PM EST): No evidence of coronary disease per [facility] in 12/2022, continue risk factor modification. History [...] drinking soda. She has not utilized any joup-yjk-azjkqyt medications such as AZO for her symptoms. [...] Assessment & Plan (11/30/2023 6:11 PM EST): 86-mkvv-raqf smoker at 1 pack/day. Strongly advised need to stop smoking, patient does have some motivation to do so but seems to be inhibited by stressors and mood problems. Well aware of the health risks having been counseled multiple times. Rosacea 11/27/2022 Assessment & Plan (11/30/2023 6:10 PM [...] study. Proceed with left heart cath at [facility] Assessment & Plan (12/18/2022 5:28 PM EST): She was last seen November 25, 2022 for an ER follow-up on chest pain that she described as very severe in nature and very intense onset. Her pain was a 10 out of 10 and radiating from her left neck down her left arm. At the ER she had serial troponins to rule out an ID. Today she reports that she has had [...] and presented to the emergency room at [facility] about 1 week ago. She had an ER visit for chest pain. Her chest pain was a 10 out of 10 and radiating to her left neck and her left arm. At the emergency room she had serial troponins to rule out ID. She had a chest x-ray showing her [...] check. I have requested her labs from [facility]. She was given oral potassium at the [...] cardiology referral to Dr. Jerson Win in [place], and per her request we will make [...] diastolic (congestive) heart failure 06/2022 Overview (11/30/2023): [facility] 12/2022 with normal coronary arteries Echocardiogram 07/21/2023: [...] trace dependent edema, during recent hospitalization at [facility] unit had switching her Jardiance 10 mg [...] 1:05 PM EDT): Status post hospitalization at [facility] in 04/2024 for suicidal ideation [...] ideation without plan, no HI, admitted to [facility] from 04/23 through 04/29/2024, discharged 4 days [...] the Pristiq. She saw her mental health WATER TREATMENT PLANT REPAIRER provider yesterday with a follow-up to be pursued in 1 month, and is scheduled to follow-up with her standard counselor at [facility] tomorrow. Assessment & Plan (02/23/2024 2:32 PM [...] cold turkey. She developed 2 days later episodes of [...] moods reported. No SI/HI. 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 Dyspepsia 05/27/2022 Assessment & Plan (07/18/2024 12:59 PM EDT): Continues dyspeptic symptoms despite taking pantoprazole 40 mg twice daily, history of EGD in 2020 revealing some gastritis. She had further evaluation of symptoms ultimately negative for gallbladder disease including HIDA scan unremarkable. She is awaiting appointment to see Dr. Mix GI for second opinion regarding symptoms after having [...] having been discontinued during recent hospitalization at [facility] given acute kidney injury with subsequent [...] apnea. Her original study was completed at [facility]. She is currently on a BiPAP therapy. Her download has been requested from [facility]. She reports that she is a faithful user of PAP therapy. She denies any excessive daytime sleepiness or napping. She now wishes to follow her sleep apnea at this clinic. Supply order is sent to the DME of her choice. I did receive her sleep study from [facility] this is a split study with a [...] Encounters Date Type Department Care Team Description 05/16/2025 11:00 AM EDT Office Visit [facility] [address] [place] [address] [place] [phone] Daphney Anton MD Other fatigue (Primary Dx); BRENDA treated with BiPAP; Pacemaker; Primary hypertension 05/16/2025 Patient rounding ([facility] only) [facility] [address] [place] [address] [place] [phone] Daphney Anton MD 05/16/2025 Travel 05/12/2025 Refill [facility] [address] [place] [address] [place] [phone] Ronaldo Kong MD 05/12/2025 Refill [facility] [address] [place] [address] [place] [phone] Ronaldo Kong MD Primary hypertension; Chronic diastolic (congestive) heart failure 05/07/2025 Refill [facility] [address] [place] [address] [place] [phone] Ronaldo Kong MD Candidal intertrigo 05/04/2025 Refill [facility] [address] [place] [address] [place] [phone] Ronaldo Kong MD Primary hypertension; Chronic diastolic (congestive) heart failure 05/04/2025 Refill [facility] [address] [place] [address] [place] [phone] Ronaldo Kong MD 05/02/2025 Travel 04/19/2025 Refill [facility] [address] [place] [phone] Daphney Anton MD Med Refill 04/19/2025 Refill [facility] [address] [place] [address] [place] [phone] Ronaldo Kong MD 04/14/2025 Refill [facility] [address] [place] [phone] Daphney Anton MD Med Refill 04/14/2025 Refill [facility] [address] [place] [address] [place] [phone] Ronaldo Kong MD 04/05/2025 Refill [facility] [address] [place] [phone] Daphney Anton MD Med Refill 04/05/2025 Refill [facility] [address] [place] [address] [place] [phone] Ronaldo Kong MD 04/04/2025 11:30 AM EDT Office Visit [facility] [address] [place], [place] [phone] Dania Gray APRN Primary hypertension; Acute midline low back pain without sciatica 04/04/2025 Travel 03/30/2025 Telephone [facility] [address] [place] [phone]WAESPE- CONCERN 03/16/2025 Refill [facility] [address] [place] [phone] Daphney Anton MD Med Refill 03/12/[address] [place] [phone] Daphney Anton MD Med Refill 03/12/[address] [place] [phone] Dania Gray APRN Med Refill 03/08/2025 11:30 AM EDT Clinical Support No Requirements [address] [place] [phone] Pacemaker (Primary Dx) 03/08/2025 11:15 AM EDT Office Visit [address] [place] [phone] Daphney Anton MD Precordial chest pain (Primary Dx); Pacemaker; BRENDA treated with BiPAP; Nonrheumatic mitral valve regurgitation; Other fatigue; Pure hypercholesterolemia 03/08/2025 Results Follow-Up [address] [place] [phone] Daphney Anton MD 03/08/2025 Travel 03/01/2025 1:30 PM EDT Ancillary Procedure [address] [place] [phone] Swelling of lower extremity; Shortness of breath 03/01/[address] [place] [phone] Daphney Anton MD 03/01/2025 Travel 02/22/[address] [place] [phone] MD [address] WAESPE -- UNABLETOWARMTRANSFER from Last 3 Months Immunizations Immunization Administration Dates Next Due COVID-19 (PFIZER) Purple Cap Monovalent 02/10/20,01/19/2021 Fluzone >6mos 07/11/2019 Fluzone (or Fluarix & [...] or training? Not on file Preferred Language Zimbabwean 03/03/2024 PHQ-2 Answer Date Recorded Retired PHQ-9: [...] Pulse 92 05/16/2025 11:19 AM EDT Temperature 36.6 C (97.8 F) 07/18/2024 11:26 AM EDT Respiratory Rate 18 07/18/2024 11:26 AM EDT Oxygen Saturation 96% 05/16/2025 11:19 AM EDT Inhaled Oxygen Concentration - - Weight 130 kg (286 lb) 05/16/2025 11:19 AM EDT Height 162.6 cm (5' 4 ) 05/16/2025 11:19 AM EDT Body Mass Index 49.09 05/16/2025 11:19 AM EDT Plan of Treatment Upcoming Encounters Date Type Department Care Team (Late st Contact Info) Description 11/13/2025 11:00 AM EST Office Visit [facility] [address] [place] [phone] Daphney Anton MD [address] [place] [address] 11/13/2025 11:00 AM EST Clinical Support No Requirements [facility] [address] [place] [phone] Health Maintenance Due Date Last Done Comments [...] 11/21/2024, 10/17/2024 Medical Devices Implanted Type Area Property Claims Manager Device Identifier Shelf Expiration Date Model / Serial / Lot Hip Implant Knee Implant Hemost Abs Surgicel Pwdr 3gm - [id number] Implanted:Qty : 1 on 08/12/2022 by Daphney Anton MD at [facility] Implant ETHICON DIV OF J AND J [id number] / / Kt Ld Stim Tined Axonics W/2/Sty Str/Crv - [id number] - [id number] Implanted:Qty : 1 on 08/13/2023 by Reta Lee MD at [facility] Implant N/A: Sacrum [employer] 02/05/2026 1201 / [id number] / Neurostm Sacral/Nerv Axonics Nonrechg W/Torq Wrench - [id number] - [id number] Implanted:Qty : 1 on 08/13/2023 by Reta Lee MD at [facility] Implant N/A: Sacrum [employer] 03/11/2024 4101 / [id number] / Ld Pm Tendril Sts 6f58cm [id number] - [id number] - [id number] Implanted:Qty : 1 on 08/12/2022 by Daphney Anton MD at [facility] Lead [employer] 03/18/[id number] / [id number] / Ld Pm Tendril Sts 6f52cm [id number] - [id number] - [id number] Implanted:Qty : 1 on 08/12/2022 by Daphney Anton MD at [facility] Lead [employer] 01/16/20257603NV41 / [id number] / Gen Pm Assurity Mri Dr Foster [id number] - [id number] - [id number] Implanted:Qty : 1 on 08/12/2022 by Daphney Anton MD at [facility] Pacemaker [employer] 01/17/2024 [id number] / [id number] / Pain Pump Pain Pump Procedures Procedure Name Priority Date/Time Associated Diagnosis Comments SCANNED - PULMONARY RESULTS 05/15/2025 ECG 12-LEAD Routine 03/08/2025 12:06 PM EDT [...] Swelling of lower extremity Shortness of breath POCT GLYCOSYLATED HEMOGLOBIN (HGB A1C) Routine 07/18/2024 [...] Recently Relevant to Health Maintenance Results * Pulmonary Results Scan (05/15/2025) us Daphney Anton MD PFT ORDERABLES Final Result * ECG 12-LEAD (03/08/2025 12:06 PM EDT) Narrative Mike CheladelinaWalter chaconMichelle Rep - 03/08/2025 12:06 PM EDT Daphney [...] of echo done on 03/01/25.Results are in [facility]. Sleep Apnea Pt states she is here for 31-90 day follow up for BRENDA. She received anew machine in January. She is doing well on current therapy. DL is in [facility]. Subjective History of Present Illness Frannie Woolums Nuñez is a 54 y.o. female with [...] sinus syndrome status post [employer] pacemaker kdzrbggup89/25/2022 03/01/25 Echo Left ventricular systolic function is normal. Calculated leftventricular EF = 64.4% Left ventricular ejection fraction appears to be 61- 65%. Left ventricular diastolic function was indeterminate. Mild to moderate mitral valve regurgitation is present. Mild pulmonary hypertension is present. *[facility] 01/15/23- Angiographically normal coronary arteries. Normal leftventricular [...] Rfl: 3 cholecalciferol (VITAMIN D3) 1.25 MG (00404 UT) capsule, Take 1 capsuleby mouth Every 7 (Seven) Days., Disp: , Rfl: Continuous Glucose Sensor (Cocrystal Discovery G6 Sensor), See Admin Instructions.,Disp: , Rfl: [...] Needed. Asneeded, Disp: , Rfl: nystatin (MYCOSTATIN) 756237 UNIT/GM powder, Apply topically to theappropriate area [...] Left Heart Cath; Surgeon: Burt Roman MD;Location: [facility] CATH INVASIVE LOCATION; Service: Cardiovascular;Laterality: N/A; CARDIAC ELECTROPHYSIOLOGY PROCEDURE N/A 08/12/2022 Procedure: DEVICE IMPLANT; Surgeon: Daphney Anton MD; [facility]; Service: Cardiology; Laterality: N/A; CARPAL TUNNEL RELEASE Bilateral CERVICAL SPINE SURGERY X2 COLONOSCOPY 12/26/2020 Diverticulosis left side, 1.2 cm adenoma with hyperplastic polyps, 7-sacojxiddh-gg recommended Dr. Sanches COLONOSCOPY 01/11/2025 ENDOSCOPY HYSTERECTOMY [...] symptoms. Kamran Anton MD Cardiology and Sleep [facility] 03/08/2025 Please note that this explicitly excludes time spent on other separatebillable services such as performing procedures or test interpretation,when applicable. This note was created using dictation software which occasionallytranscribes nonsensical phrases. Please contact the provider if anyclarification is needed. Daphney Anton MD ECG ORDERABLES Final Result * Pulmonary Results Scan (03/08/2025) us Daphney Anton MD PFT ORDERABLES Final Result * TSH Rfx On Abnormal To Free T4 (03/08/2025) Blood Daphney Anton MD LAB BLOOD ORDERABLES Final R esult Performing Organization Address [facility]/ZIP Co de Phone Number [facility]
[address] [place] [address], [place] [phone] * LABS SCANNED (03/08/2025) Only the most recent of2 resultswithin the time period is included. us Daphney Anton MD LAB BLOOD ORDERABLES Final R esult * High Sensitivity Troponin T (03/08/2025) Blood us Daphney Anton MD LAB BLOOD ORDERABLES Final R esult Performing Organization Address [facility] Co de Phone Number [facility]
[address] [place] [address], [place] [phone] * CBC & Differential (03/08/2025) Blood us Daphney Anton MD LAB BLOOD ORDERABLES Final R esult Performing Organization Address [facility] Co de Phone Number [facility]
[address] [place] [address], [place] [phone] * Lipid Panel (03/08/2025) Blood us Daphney Anotn MD LAB BLOOD ORDERABLES Final R esult Performing Organization Address [facility]/ZIP Co de Phone Number [facility]
[address] [place] [address], [place] [phone] * Comprehensive Metabolic Panel (03/08/2025) Blood us Daphney Anton MD LAB BLOOD ORDERABLES Final R esult Performing Organization Address City/[facility]/ZIP Co de Phone Number [facility]
[address] [place] [address], * ECHO COMPLETE W/ DOPPLER AND COLOR FLOW (03/01/2025 2:08 PM EDT) Pathologist [facility] [place] EF(MOD-bp) 64.4 % LVIDd 4.8 cm LVIDs [...] left ventricular wall motion is normal. Dania Gray WATER TREATMENT PLANT REPAIRER CV ECHO ORDERABLES Final Result * (ABNORMAL) POC Glycosylated Hemoglobin (Hb A1C) (07/18/2024 12:56 PM EDT) Pathologist [facility] [place] Hemoglobin A1C 6.3(A) 4.5 - 5.7 % [facility] Lot Number [id number] [facility] Expiration Date 04/07/2026 [facility] Blood 07/18/2024 12:5 6 PM EDT Ronaldo Kong MD POINT OF CARE TEST ORDERABLES Final Result [facility]
[address] [place] [address], * MAMMO Scan (12/29/2023) Anatomical Region Laterality Modality Other us Ronaldo Kong MD CHART REVIEW TABS Final Res ult * SCANNED - COLONOSCOPY (03/04/2023) us Ronaldo Kong MD CHART REVIEW TABS Final Res ult * Hepatitis C Antibody (11/27/2022 2:35 PM EST) Pathologist [facility] [place] Hep C Virus Ab <0.1 0.0 - [...] support the diagnosis of acute HCV infection. [facility] offers Hepatitis C Virus (HCV) RNA, Diagnosis, VALE (233418) and Hepatitis C Virus (HCV) Antibody with reflex to Quantitative Real-time PCR (940909). Blood Structure of left upper limb / Unknown 11/27/2022 2:35 PM EST 11/27/2022 Comment:Blood Release to francis Crouch [facility] (AMBULATORY) - 11/28/2022 10:07 AM EST Performed at: 01 - [address] [id number] Conveyor Belt Installer: Walter Corona PhD, Phone: [phone] us Ronaldo Kong MD LAB BLOOD ORDERABLES Final Res ult [facility] [address] [place] [address], [facility] [address] [place] [address], [place] [phone] from Last 3 Months or Most Recently Relevant to Health Maintenance Insurance [facility] Care Teams Food And Beverage Lead Relationship Specialty Start Date End Date System, [place] [address] PCP - General 02/14/25
--- OUTSIDE RECORDS SUMMARY | 2025-05-19 09:50 | XMS_ITS | Encounter Summary ---
[facility] Address [address] [place] [id number] Care Team Providers Care Pond Supervisor Name Role Phone System, Provider Not In Primary Care Provider Un available Reason for Visit * Reason Onset Date Comments DR. HALL -- NEHA 02/22/2025 Encounter Details Date Type Department Care Team (Latest Contact Info) Description 02/22/2025 Telephone [facility] [address] [place] [address] Daphney Hall MD [address] [place] [address] DR. HALL -- NEHA Social History [...] or training? Not on file Preferred Language Belizean 03/03/2024 PHQ-2 Answer Date Recorded Retired PHQ-9: [...] to patient: Self Best call back number: [phone] Patient is needing: PT NEEDING TO RESCHEDULE ECHO SCHEDULED ON 5.8.25 @ 12:30PM. PLEASE ADVISE. documented in this encounter Plan of Treatment Upcoming Encounters Date Type Department Care Team (Late st Contact Info) Description 11/13/2025 11:00 AM EST Office Visit [facility] [address] [place] [phone] Daphney Hall MD [address] [place] [address] 11/13/2025 11:00 AM EST Clinical Support No Requirements [facility] [address] [place] [phone] documented as of this encounter Visit Diagnoses Not on filedocumented in this encounter Additional Health Concerns Assessment Noted Time PHQ-2 Depression Total Score: 3 07/18/20 24 11:28 AM EDT documented as of this encounter Care Teams Pond Supervisor Relationship Specialty Start Date End Date System, [place] [address] PCP - General 02/14/25 documented as of this encounter
--- OUTSIDE RECORDS SUMMARY | 2025-05-19 09:50 | XMS_ITS | Encounter Summary ---
Author Organization Healthcare Address [address] [place] [address] Care Team Providers Care Jig Bore Tool Maker Name Role Phone Ronaldo Kong MD Primary Care Provider [phone] Encounter Details Date Type Department Care Team (Late Contact Info) Description 07/08/2022 Orders Only External Location [address] [place] [address] Provider, External Social History Tobacco Use Types [...] Description 06/01/2025 9:20 AM EDT Office Visit [facility] [address] [place] [address] Magalis Reid, WET INSPECTOR [employer]ICAL GLASS, DNP [address] [place] [address] documented as of this encounter Procedures Procedure [...] documented as of this encounter Care Teams Jig Bore Tool Maker Relationship Specialty Start Date End Date Ronaldo Kong MD [address] [place] [address] PCP - General 03/01/21 Guru Ma [address] [place] [address] [id number] [facility] [id number] Referring Physician Obstetrics and Gynecology 09/02/21 documented as of this encounter
--- OUTSIDE RECORDS SUMMARY | 2025-05-19 09:50 | XMS_ITS | Encounter Summary ---
[facility] [address] [place] [phone] Care Team Providers Care Camp Counselor Name Role Phone System, Provider Not In Primary Care Provider Un available Reason for Visit * Reason Comments Med Refill Encounter Details Date Type Department Care Team (Late st Contact Info) Description 04/19/2025 Refill [facility] [address] [place] [address] [...] or training? Not on file Preferred Language Niuean 03/03/2024 PHQ-2 Answer Date Recorded Retired PHQ-9: [...] Patient is no longer on Jardiance. Call [facility], Spoke to Cara. Asked her to remove from patient profile. documented in this encounter Plan of Treatment Upcoming Encounters Date Type Department Care Team (Late st Contact Info) Description 11/13/2025 11:00 AM EST Office Visit [facility] [address] [address] Daphney Hall MD [address] [place] [address] 11/13/2025 11:00 AM EST Clinical Support No Requirements [facility] [address] [address] documented as of this encounter Visit Diagnoses Not on filedocumented in this encounter Additional Health Concerns Assessment Noted Time PHQ-2 Depression Total Score: 3 07/18/20 24 11:28 AM EDT documented as of this encounter Care Teams Camp Counselor Relationship Specialty Start Date End Date System, [place] [address] PCP - General 02/14/25 documented as of this encounter
--- OUTSIDE RECORDS SUMMARY | 2025-05-19 09:50 | XMS_ITS | Encounter Summary ---
[facility] Address [address] [place] [phone] Care Team Providers Care Vehicle Service Agent Name Role Phone System, Provider Not In Primary Care Provider Un available Reason for Visit * Reason Onset Date Comments DR.WAESPE- HANDLEY 03/30/2025 Encounter Details Date Type Department Care Team (Late st Contact Info) Description 03/30/2025 Telephone [facility] [address] [place] [address] Daphney Hall MD [address] [place] [address] DR.WAESPE- HANDLEY Social History Tobacco Use [...] or training? Not on file Preferred Language Belarusian 03/03/2024 PHQ-2 Answer Date Recorded Retired PHQ-9: Brief Depression Severity Measure Score 14 07/18/2024 Comments No Sex and Gender Information Value Date Recorded Sex Assigned at Female 03/08/2025 7:42 AM EDT Legal Sex Female 12:37 PM EDT Gender Identity Not on file Sexual Orientation Not on file documented as of this encounter Miscellaneous Notes * Telephone Encounter - Anabella Millrad MA - 03/30/2025 12:50 PM EDT CALLED AND SPOKE TO PATIENT AND ADVISED HER TO GO TO THE ER, ALSO MADE PATIENT AN APPOINTMENT FOR NEXT WEEK. * Telephone Encounter - Matt Eduardo RegSched Rep - 03/30/2025 12:23 PM EDT Caller: Frannie Nuñez Relationship: Self Best call back number: [phone] What is the best time to reach [facility] [address] [phone] Daphney Hall MD [address] [address] 11/13/2025 11:00 AM EST Clinical Support No Requirements [facility] [address] [address] documented as of this encounter Visit Diagnoses Not on filedocumented in this encounter Additional Health Concerns Assessment Noted Time PHQ-2 Depression Total Score: 3 07/18/20 24 11:28 AM EDT documented as of this encounter Care Teams Vehicle Service Agent Relationship Specialty Start Date End Date System, [place] [address] PCP - General 02/14/25 documented as of this encounter
--- OUTSIDE RECORDS SUMMARY | 2025-05-19 09:50 | XMS_ITS | Encounter Summary ---
[facility] [address] [place] [phone] Care Team Providers Care Summer Associate Name Role Phone System, Provider Not In Primary Care Provider Un available Reason for Visit * Reason Comments Med Refill Encounter Details Date Type Department Care Team (Late st Contact Info) Description 05/04/2025 Refill [facility] [address] [place] [address] [place] [address] Ronaldo Kong MD [address] [place] [address] [place] [address] Social History Tobacco Use Types Packs/Day Years [...] or training? Not on file Preferred Language French 03/03/2024 PHQ-2 Answer Date Recorded Retired PHQ-9: [...] 11:00 AM EST Office Visit [facility] [address] [phone] Daphney Hall MD [address] [place] [address] 11/13/2025 11:00 AM EST Clinical Support No Requirements [facility] [address] [address] documented as of this encounter Visit Diagnoses Not on filedocumented in this encounter Additional Health Concerns Assessment Noted Time PHQ-2 Depression Total Score: 3 07/18/20 24 11:28 AM EDT documented as of this encounter Care Teams Summer Associate Relationship Specialty Start Date End Date System, [place] [address] PCP - General 02/14/25 documented as of this encounter
--- OUTSIDE RECORDS SUMMARY | 2025-05-19 09:50 | XMS_ITS | Clinical Summary ---
Author Organization [facility] Address [address] [place] [address] Care Team Providers Care Director Clinical Pharmacology Name Role Phone Ronaldo Kong MD Primary Care Provider [phone] Allergies Active Allergy Reactions Criticality Noted Date [...] 150mg Active ergocalciferol (Vitamin D-2) 1.25 MG (46393 UT) capsule Take 1 capsule (50,000 Units) [...] 09/14/20 23 Active Vitamin D3 1.25 MG (58165 UT) capsule 09/14/20 23 Active potassium chloride [...] drinking soda. She has not utilized any iwod-sni-rshnqun medications such as AZO for her symptoms. [...] Type Department Care Team Description 03/03/2025 Telephone [facility] Urology [address] [place] [address] Magalis Reid, TORTS LAW PROFESSOR, DNP from Last 3 Months Family History [...] Office Visit [place] [facility] [address] [place] [address] Magalis Reid, OMAR, DNP [address] [place] [address] Health Maintenance Due Date Last Done Comments [...] Cancer Screening 2015 UKY-Breast Cancer Screening 2020 [id number] Vaccine (3 - Pfizer risk series) 03/09/2021 [...] this topic Medical Devices Implanted Type Area Coater Helper Device Identifier Shelf Expiration Date Model / [...] Adults <6.0% Children and Adolescents <7.5% Source: [place] [employer]. Standards of medical care in diabetes,2017. Diabetes Care.2017:40 (suppl 1):S1-S135. HbA1c assay performed by an ion-exchange chromatography method that is certified traceable to the DCCT. Harpreet Laureano MD LAB BLOOD ORDERABLES Final Result [facility] [address] [place] [address] * [place] Hepatitis C Antibody (05/08/2019 11:11 PM EDT) [place] Hepatitis C Ab NEGATIVE Reference Range: Negative [facility] 05/08/2019 11:1 1 PM EDT 05/08/2019 11:25 PM EDT Paresh Bingham LAB BLOOD ORDERABLES Final Resul t [facility] * Cytology (12/07/1997 12:00 AM EST) 12/07/1997 12/07/1997 Narrative [facility] - 12/08/1997 12:00 AM EST [facility] MR #: [id number] [facility] FRANNIE NUÑEZ [place] [address] 1970 (Age: 27) FW Collect Date: 12/07/1997 00:00 Receipt Date: 12/07/1997 00:00 Page 1 DEPARTMENT OF PATHOLOGY AND LABORATORY MEDICINE CYTOPATHOLOGY REPORT Email: [email or web address] * Converted Case * This report may [...] ICD: F: {Not Entered} SNOMED CODES: 1; [id number] A resident has participated in this service. A pathologist has performed and is responsible for the reported pathologic evaluation. Historical Provider MD LAB PATHOLOGY ORDERABLES Final Result VON from Last 3 Months or Most Recently Relevant to Health Maintenance Insurance [employer] [facility] MEDICAID Advance Directives * Full Code (Latest Code Status on File) Date Activated Date Inactivated Comments 10/08/2021 11:36 AM 10/09/2021 6:28 PM Question Answer Comments Patient has decision-making capacity? Yes * Full Code Date Activated Date Inactivated Comments 09/23/2021 12:53 PM 09/25/2021 1:29 PM Question Answer Comments Patient has decision-making capacity? Yes Care Teams Director Clinical Pharmacology Relationship Specialty Start Date End Date Ronaldo Kong MD [address] [place] [address] [place] [address] PCP - General 03/01/21 Guru Ma [address] [place] [address] [address] [facility] [address] Referring Physician Obstetrics and Gynecology 09/02/21
--- OUTSIDE RECORDS SUMMARY | 2025-05-19 09:50 | XMS_ITS | Encounter Summary ---
[facility] Address [address] [place] [phone] Care Team Providers Care Mechatronics Technologist Name Role Phone System, Provider Not In Primary Care Provider Un available Reason for Visit * Reason Comments Med Refill Encounter Details Date Type Department Care Team (Late st Contact Info) Description 04/19/2025 Refill [facility] [address] [place] [address] [place] [address] Ronaldo Kong MD [address] [place] [address] [place] [address] Social History Tobacco Use Types Packs/Day Years [...] or training? Not on file Preferred Language Saudi Arabian 03/03/2024 PHQ-2 Answer Date Recorded Retired PHQ-9: [...] Description 11/13/2025 11:00 AM EST Office Visit [facility] [address] [phone] Daphney Hall MD [address] [address] 11/13/2025 11:00 AM EST Clinical Support No Requirements [facility] [address] [phone] documented as of this encounter Visit Diagnoses Not on filedocumented in this encounter Additional Health Concerns Assessment Noted Time PHQ-2 Depression Total Score: 3 07/18/20 24 11:28 AM EDT documented as of this encounter Care Teams Mechatronics Technologist Relationship Specialty Start Date End Date System, [place] [address] PCP - General 02/14/25 documented as of this encounter
--- OUTSIDE RECORDS SUMMARY | 2025-05-19 09:50 | XMS_ITS | Encounter Summary ---
[facility] Address [address] [place] [phone] Care Team Providers Care Heel Varnisher Name Role Phone System, Provider Not In Primary Care Provider Un available Reason for Visit * Reason Comments Med Refill Encounter Details Date Type Department Care Team (Late st Contact Info) Description 04/14/2025 Refill [facility] [address] [place] [address] [place] [address] Ronaldo Kong MD [address] [place] [address] [place] [address] Social History Tobacco Use Types Packs/Day Years [...] Description 11/13/2025 11:00 AM EST Office Visit [facility] [address] [phone] Daphney Hall MD [address] [address] 11/13/2025 11:00 AM EST Clinical Support No Requirements [facility] [address] [phone] documented as of this encounter Visit Diagnoses Not on filedocumented in this encounter Additional Health Concerns Assessment Noted Time PHQ-2 Depression Total Score: 3 07/18/20 24 11:28 AM EDT documented as of this encounter Care Teams Heel Varnisher Relationship Specialty Start Date End Date System, [place] [address] PCP - General 02/14/25 documented as of this encounter
--- OUTSIDE RECORDS SUMMARY | 2025-05-19 09:50 | XMS_ITS | Encounter Summary ---
[facility] Address [address] [place] [phone] Care Team Providers Care Pantograph Ii Engraver Name Role Phone System, Provider Not In Primary Care Provider Un available Reason for Visit * Reason Comments Med Refill Encounter Details Date Type Department Care Team (Late st Contact Info) Description 05/07/2025 Refill [facility] [address] [place] [address] [place] [address] Ronaldo Kong MD [address] [place] [address] [place] [address] Candidal intertrigo Social History Tobacco Use Types [...] or training? Not on file Preferred Language Slovenian 03/03/2024 PHQ-2 Answer Date Recorded Retired PHQ-9: [...] documented as of this encounter Care Teams Pantograph Ii Engraver Relationship Specialty Start Date End Date System, [place] [address] PCP - General 02/14/25 documented as of this encounter
--- OUTSIDE RECORDS SUMMARY | 2025-05-19 09:50 | XMS_ITS | Encounter Summary ---
[facility] Address [address] [place] [phone] Care Team Providers Care Senior Salesforce Developer Name Role Phone System, Provider Not In Primary Care Provider Un available Reason for Visit * Reason Comments Med Refill Encounter Details Date Type Department Care Team (Late st Contact Info) Description 04/05/2025 Refill [facility] [address] [place] [address] [place] [address] Ronaldo Kong MD [address] [place] [address] [place] [address] Social History Tobacco Use Types Packs/Day Years [...] or training? Not on file Preferred Language Barbadian 03/03/2024 PHQ-2 Answer Date Recorded Retired PHQ-9: [...] 11/13/2025 11:00 AM EST Office Visit [facility] [address] [phone] Daphney Hall MD [address] [address] 11/13/2025 11:00 AM EST Clinical Support No Requirements [facility] [address] [phone] documented as of this encounter Visit Diagnoses Not on filedocumented in this encounter Additional Health Concerns Assessment Noted Time PHQ-2 Depression Total Score: 3 07/18/20 24 11:28 AM EDT documented as of this encounter Care Teams Senior Salesforce Developer Relationship Specialty Start Date End Date System, [place] [address] PCP - General 02/14/25 documented as of this encounter
--- OUTSIDE RECORDS SUMMARY | 2025-05-19 09:50 | XMS_ITS | Encounter Summary ---
[facility] Address [address] [place] [address] Care Team Providers Care Computer Forensics Examiner Name Role Phone System, Provider Not In Primary Care Provider Un available Encounter Details Date Type Department Care Team (Late st Contact Info) Description 03/08/2025 Results Follow-Up [facility] [place] [address] [place] [address] Daphney Hall MD [address] [place] [address] Social History Tobacco Use Types Packs/Day [...] or training? Not on file Preferred Language Mosotho 03/03/2024 PHQ-2 Answer Date Recorded Retired PHQ-9: [...] Description 11/13/2025 11:00 AM EST Office Visit [facility] [address] [phone] Daphney Hall MD [address] [place] [address] 11/13/2025 11:00 AM EST Clinical Support No Requirements [facility] [address] [address] documented as of this encounter Visit Diagnoses Not on filedocumented in this encounter Additional Health Concerns Assessment Noted Time PHQ-2 Depression Total Score: 3 07/18/20 24 11:28 AM EDT documented as of this encounter Care Teams Computer Forensics Examiner Relationship Specialty Start Date End Date System, [place] [address] PCP - General 02/14/25 documented as of this encounter
--- OUTSIDE RECORDS SUMMARY | 2025-05-19 09:50 | XMS_ITS | Encounter Summary ---
[facility] Address [address] [place] [address] Care Team Providers Care Boiler Installer Name Role Phone System, Provider Not In Primary Care Provider Un available Encounter Details Date Type Department Care Team (Late st Contact Info) Description 05/16/2025 Patient rounding ([facility] only) [facility] [address] [place] [address] Daphney Hall MD [address] [place] [address] Social History Tobacco Use Types Packs/Day [...] on file documented as of this encounter Progress Notes * Anh Hamm RegSched Rep - 05/16/2025 2:12 PM EDT ..My name is Saima Dial and I am the Cad Programmer for [facility]. I would like to thank you for being a loyal patient. If you do not mind I would like to ask you a few questions about your recent visit with us. Please feel free to reply if you wish to provide us with feedback on your first visit with our practice. First, could you tell me what went well with your recent visit? Secondly, we are always looking for ways to make our patients' experiences even better. Do you haveany recommendations on ways we may improve? Finally, overall were you satisfied with your first visit to us as a [facility] facility? In the next few days, you will be receiving a Patient Experience Survey. Thank you for taking the time to answer a few questions today. I hope you have a good day. documented in this encounter Plan of Treatment Upcoming Encounters Date Type Department Care Team (Late st Contact Info) Description 11/13/2025 11:00 AM EST Office Visit [facility] [address] [address] Daphney Hall MD [address] [place] [address] 11/13/2025 11:00 AM EST Clinical Support No Requirements [facility] [address] [phone] documented as of this encounter Visit Diagnoses Not on filedocumented in this encounter Additional Health Concerns Assessment Noted Time PHQ-2 Depression Total Score: 3 07/18/20 24 11:28 AM EDT documented as of this encounter Care Teams Boiler Installer Relationship Specialty Start Date End Date System, [place] [address] PCP - General 02/14/25 documented as of this encounter
--- OUTSIDE RECORDS SUMMARY | 2025-05-19 09:50 | XMS_ITS | Encounter Summary ---
Author [facility] Address [address] [place] [address] Care Team Providers Care Floral Merchandiser Name Role Phone System, Provider Not In Primary Care Provider Un available Encounter Details Date Type Department Care Team (Latest Contact Info) Description 05/16/2025 Travel Social History Tobacco Use Types Packs/Day [...] or training? Not on file Preferred Language Iraqi 03/03/2024 PHQ-2 Answer Date Recorded Retired PHQ-9: [...] Description 11/13/2025 11:00 AM EST Office Visit [facility] [address] [phone] Daphney Hall MD [address] [place] [address] 11/13/2025 11:00 AM EST Clinical Support No Requirements [facility] [address] [phone] documented as of this encounter Visit Diagnoses Not on filedocumented in this encounter Additional Health Concerns Assessment Noted Time PHQ-2 Depression Total Score: 3 07/18/20 24 11:28 AM EDT documented as of this encounter Care Teams Floral Merchandiser Relationship Specialty Start Date End Date System, [place] [address] PCP - General 02/14/25 documented as of this encounter
--- OUTSIDE RECORDS SUMMARY | 2025-05-19 09:50 | XMS_ITS | Encounter Summary ---
[facility] Address [address] [place] [address] Care Team Providers Care Electronic Engineering Draftsperson Name Role Phone System, Provider Not In [...] Daphney Hall MD [address] [place] [address] 11/13/2025 11:00 AM EST Clinical Support No Requirements [facility] [address] [phone] documented as of this encounter Visit Diagnoses Not on filedocumented in this encounter Additional Health Concerns Assessment Noted Time PHQ-2 Depression Total Score: 3 07/18/20 24 11:28 AM EDT documented as of this encounter Care Teams Electronic Engineering Draftsperson Relationship Specialty Start Date End Date System, [place] [address] PCP - General 02/14/25 documented as of this encounter
--- OUTSIDE RECORDS SUMMARY | 2025-05-19 09:50 | XMS_ITS | Encounter Summary ---
[facility] Address [address] [place] [phone] Care Team Providers Care Church Organist Name Role Phone System, Provider Not In Primary Care Provider Un available Reason for Visit * Reason Comments Med Refill Encounter Details Date Type Department Care Team (Late st Contact Info) Description 05/04/2025 Refill [facility] [address] [place] [address] [place] [address] Ronaldo Kong MD [address] [place] [address] [place] [address] Primary hypertension; Chronic diastolic (congestive) heart failure [...] or training? Not on file Preferred Language Central African 03/03/2024 PHQ-2 Answer Date Recorded Retired PHQ-9: [...] 11/13/2025 11:00 AM EST Office Visit [facility] [address] [phone] Daphney Hall MD [address] [address] 11/13/2025 11:00 AM EST Clinical Support No Requirements [facility] [address] [phone] documented as of this encounter Visit Diagnoses Diagnosis Primary hypertension Unspecified essential hypertension Chronic diastolic (congestive) heart failure documented in this encounter Additional Health Concerns Assessment Noted Time PHQ-2 Depression Total Score: 3 07/18/20 24 11:28 AM EDT documented as of this encounter Care Teams Church Organist Relationship Specialty Start Date End Date System, [place] [address] PCP - General 02/14/25 documented as of this encounter
--- OUTSIDE RECORDS SUMMARY | 2025-05-19 09:51 | XMS_ITS | Encounter Summary ---
[facility] Address [address] [place] [phone] Care Team Providers Care Family Consumer Science Teacher Name Role Phone System, Provider Not In Primary Care Provider Un available Encounter Details Date Type Department Care Team (Late Contact Info) Description 10/02/2022 Telephone [facility] [address] [place] [address] [place] [address] Ronaldo Kong MD [address] [place] [address] Social History Tobacco Use Types [...] Department Care Team (Late Contact Info) Description 11/13/2025 11:00 AM EST Office Visit [facility] [address] [phone] Daphney Hall MD [address] [place] [address] 11/13/2025 11:00 AM EST Clinical Support No Requirements [facility] [address] [place] [address] documented as of this encounter Visit Diagnoses Not on filedocumented in this encounter Additional Health Concerns Assessment Noted Time PHQ-2 Depression Total Score: 3 05/27/20 22 12:00 PM EDT documented as of this encounter Care Teams Family Consumer Science Teacher Relationship Specialty Start Date End Date System, [place] [address] PCP - General 02/14/25 documented as of this encounter
--- OUTSIDE RECORDS SUMMARY | 2025-05-19 09:51 | XMS_ITS | Patient Health Record ---
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 Problem Morbid obesity (361929929) Morbid obesity (E66.01) Active confirmed Problem Type 2 diabetes mellitus (90235440) Type 2 diabetes mellitus (E11.9) Active confirmed Problem Hypertension (11729017) HTN (hypertension) (I10) Active confirmed Problem Brain tumor (759972809) Brain tumor (D49.6) Active confirmed Problem Obstructive sleep apnea syndrome (57041777) BRENDA (obstructive sleep apnea) (G47.33) Active confirmed Problem Obese (177127156) Obese (E66.9) Active confirmed Problem Chronic kidney disease stage 2 (840691898) Chronic kidney disease stage 2 (N18.2) Active confirmed Problem Obstructive sleep apnea syndrome (60813003) BRENDA (obstructive sleep apnea) (G47.33) Active confirmed [...] Encounters Encounter Location Date Provider Diagnosis [facility] [address] [place] [address] 11/22/2024 Harpreet Castaneda Chronic kidney disease stage [...] IRON, TIBC AND FERRITIN PANEL 07/29/2022 CMP14+eGFR 12/01/2022 CMP14+eGFR 11/30/2023 CMP14+eGFR 07/29/2022 CMP14+eGFR 08/01/2021 URINALYSIS COMPLETE 06/01/2023 URINALYSIS COMPLETE 08/01/2021 URINALYSIS [...] Details Provider Name:Harpreet Castaneda, 05/23/2025 10:40:00 AM, [address], [place], [address], Insurance Providers Payer Name Payer Address Payer Phone Subscriber Number Group Number Insured Name Patient Relationship to Insured Coverage Start Date Coverage End Date [employer] [facility] [address] [place] [phone] [id number] Massimo chacon Frannie Self - patient is the insured Medical (General) History Medical History History ICD Code Anemia Avitaminosis B 12 deficiency Carotid artery stenosis CHF 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
[2025-05-19 09:59] LABS: Microscopic, Urine URINE MICROSCOPIC (MICROSCOPIC)
[2025-05-19 10:16] LABS: Hematocrit 35.9 % (37.0-47.0); Hemoglobin 12.1 g/dL (12.2-16.2); Immature Granulocytes % 0.4 %; Mean Corpuscular HGB Conc 33.7 g/dL (31.8-35.4); Mean Corpuscular Hemoglobin 32.3 pg (27.0-31.2); Mean Corpuscular Volume 95.7 fl (81-99); Nucleated Red Blood Cells % 0 %; Platelet Count 251 K/mm3 (142-424); Red Blood Count 3.75 M/mm3 (4.20-5.40); Red Cell Distribution Width-SD 48.2 fL; White Blood Count 9.3 K/mm3 (4.8-10.8)
[2025-05-19 10:49] LABS: Hemoglobin A1C 6.1 % (4.0-6.0)
[2025-05-19 11:01] LABS: Alanine Aminotransferase 31 U/L (12-78); Albumin Level 4.2 g/dl (3.5-5.0); Albumin/Globulin Ratio 2.0 (1.1-1.8); Alkaline Phosphatase 130 U/L (38-126); Anion Gap 9.8 mEq/L (5-15); Aspartate Amino Transferase 30 U/L (14-36); Blood Urea Nitrogen 10 mg/dl (7-17); Calcium 9.3 mg/dl (8.4-10.2); Carbon Dioxide 26 mmol/L (22.0-30.0); Chloride 109 mmol/L (98-107); Creatinine,Serum 0.80 mg/dl (0.52-1.04); Estimated Glomerular Filt Rate 75 ml/min (>60); GFR (African American) 90 ML/MIN (>60); Globulin 2.1 g/dL (1.3-3.2); Glucose 102 mg/dl (74-100); Potassium 3.8 mmoL/L (3.5-5.1); Sodium 141 mmol/L (136-145); Total Protein,Serum 6.3 g/dl (6.3-8.2)
[2025-05-19 11:02] LABS: Bilirubin,Total 0.1 mg/dl (0.2-1.3)
[2025-05-19 11:09] LABS: Bilirubin,Urine Negative (Negative); Color,Urine YELLOW (Yellow); Glucose,Urine (UA) Negative (Negative); Ketones,Urine Negative (Negative); Leukocyte Esterase,Urine Negative (Negative); PH,Urine 6.0 (5.0-8.5); Protein,Urine Negative (Negative); Specific Gravity, Urine 1.015 (1.005-1.030); Urobilinogen,Urine 0.2 EU/dl (0.2)
[2025-05-19 13:39] LABS: Bacteria,Urine Trace /lpf; Squamous Epithelial Cell,Urine Occasional #/hpf (0-5)
== END 2025-05-19 23:59 | disposition home or self-care (01) ==
LOC: LAB 09:47
PROVIDERS: Visit Provider Internal Medicine Nephrology
DX: I12.9 Hypertensive chronic kidney disease with stage 1 through stage 4 chronic kidney disease, or unspecified chronic kidney disease (principal); N18.9 Chronic kidney disease, unspecified; E11.29 Type 2 diabetes mellitus with other diabetic kidney complication
CPT/HCPCS: 36415; 80053; 81001; 83036; 85025

== ENCOUNTER 2025-05-26 10:10 | Day surgery (SDC) | payer OTHER, SELFPAY ==
[2025-05-26 10:21] VITALS: BP 148/79; PULSE 79; RESP 16; O2SAT 97; BMI 45.2
--- NOTE | 2025-05-26 10:27 | EXP.PAIN.PRO ---
Procedure Date: 05/26/25 Time: 10:35 Anesthesiologist:: Magalis Trujillo APRN Complications:: None Pre-procedure Diagnosis:: Degenerative disc disease of lumbar spine, chronic pain syndrome Post-procedure Diagnosis:: Same Indications for Procedure:: Patient is a pleasant 54-year-old female who presents today for intrathecal refill and reprogram. She rates her pain today a 7 out of 10. She denies any new trauma or injury. She does state that she has been having a little bit more pain and would like to have an increase. Patient is currently managed with morphine 2 mg/mL with a daily dose of 0.715 mg/day. She denies any side effects. Patient does also make mention today that she has gotten moved multiple times for the psychological evaluation from that office. She states that when they called to reschedule her that they do not give a reason why they are rescheduling and show she is just concerned that it keeps pushing her options out longer. Patient is scheduled for an injection coming up next Thursday. Her Husam has been reviewed and is appropriate. Physical Exam: General: Alert and oriented x3, no acute distress, pleasant and cooperative Lungs: Respirations even and unlabored, symmetrical chest expansion Eyes: PERRL Musculoskeletal: Flexion and extension of lumbar [spine] somewhat guarded secondary to pain, [antalgic gait noted] Neurological: Speech clear, no gross sensory deficit Procedure Details:: Informed consent was obtained and the risk and benefits of the procedure were explained to the patient. The patient had noninvasive monitoring placed including noninvasive blood pressure cuff and pulse oximeter. Patient's pump was interrogated. The area over the pump was cleansed with chlorhexidine as a cleansing solution. In sterile fashion the pump was accessed with a 22-gauge needle. Approximately 4.5 mls of the pump solution was removed and discarded appropriately. The pump was then refilled with 20 mL's of morphine 2 mg/mL. The needle was withdrawn and a bandage was placed over the puncture site. The infusion rate was reprogrammed and increased to morphine 0.7866 mg/day. The patient tolerated well with no complication. Plan and Disposition:: Patient tolerated the procedure well with no complications and was discharged neurologically intact. I did discuss with patient that we will reach out to the office where her psychological evaluation was since and make sure that there are not any additional issues with her appointment date. We will reach out and let her know. Patient will return to clinic on or before their next intrathecal refill date. We will see the patient back in the clinic at the next intrathecal refill. Patient has been instructed to contact the clinic with any concerns before the next appointment. Dr. Banerjee has reviewed this note and agrees with this plan of care. This note was dictated using voice recognition software and make contain errors or omissions. -- It Is medically necessary for this patient to continue to have their intrathecal pump refilled at regular intervals. This patient had an intrathecal pain pump implanted after meeting criteria of chronic intractable pain for greater than 3 months and failing conservative treatments. Patient has committed and been compliant to the treatment plan and all planned follow up care. Since implantation of the intrathecal pain pump, the patient has had decreased pain and been more functional. Oral medications have been reduced including intake of oral opioids. Patient continues to do well with intrathecal therapy with decrease in pain symptoms and increase in functional status. Stopping intrathecal medications can lead to life threatening withdrawal, seizures, cardiac arrest, severe pain, and possible . Pumps that are not refilled at regular intervals can be damages and cause and need for replacement. We continually titrate dose and concentration to optimize pain relief and function. We are limited in concentration for certain drugs to safely deliver medications through the pump and stay within the recommendations from the Polyanalgesic Consensus Committee Guidelines. Depending on dose and concentration these pumps may need to be refilled sooner than 3 months as we titrate. A UDS is needed to verify patient's compliance with our office pain contract. This is ordered based off specific treatments related to chronic pain with the potential to abuse certain medications.
--- NOTE | 2025-05-26 10:28 | EXP.PM.HP ---
History of Present Illness *Admission Date: 05/26/25 *Reason for visit:: Intrathecal refill; DDD *History of present illness: Same [facility] Disclaimer: The information contained in this section may have been updated after the patient was seen, as this information can be updated by other users. Medical History Knee arthropathy Hip replacement planned Pacemaker Pain of intrathecal infusion pump pocket after insertion Seizure disorder Sleep apnea Seizure HLD (hyperlipidemia) HTN (hypertension) Hx of cardiac pacemaker Diabetes mellitus, type 2 Anxiety Depression Asthma Congestive heart failure Dizziness Surgical History History of cholecystectomy History of spinal fusion History of hysterectomy History of right hip replacement History of left hip replacement History of knee replacement Family History Other Family history of diabetes mellitus type II Family history of hyperlipidemia Family history of hypertension Family history of myocardial infarction Social History (Updated 05/26/25 @ 10:22 by Kiara Green RN) Smoking Status: Current every day smoker tobacco type: cigarettes packs per day: 1 years smoked: 30 alcohol intake: never substance use type: denies use current occupational status: other Travel in the last 8 weeks?: None household members: none housing: house lives independently: Yes marital status: single education level: high school current occupational exposures/hazards: No caffeine: Yes special lai needs: No agree to transfusion: No do you feel safe at home: Yes victim of physical abuse: No victim of emotional abuse: No victim of sexual abuse: No would you like helpful sources: No Have you lived/traveled outside [place] in past 30 days?: No Contact w/someone who lives/traveled outside [place] past 30 days?: No Exposure to someone with infectious disease in past 14 days?: No Do you have a fever (greater than 100.4 F or 38 C)?: No Have you tested positive for COVID-19?: No Exposed to someone with COVID-19 in past 14 days?: No Do you have a sore throat?: No Do you have a cough?: No Do you have any weakness?: No Do you have any diarrhea?: No Are you experiencing any unusual bleeding?: No Do you have any muscle aches/pain?: No Do you have any abdominal pain?: No Are you experiencing loss of taste or smell?: No Other Medical History Have you received the Flu Vaccine for this season: Yes Have you received the Pneumonia Vaccine: Yes Review of Systems Review of Systems Review of systems:: pertinent systems reviewed and negative unless documented below Review of systems (narrative): Review of Systems: General: No recent weight changes, no fever, no sleep disturbances Respiratory: No cough, no shortness of air, no recurring pulmonary infections Cardiovascular/peripheral vascular: No chest pain, no palpitations, no edema, no shortness of breath Gastrointestinal: No new onset incontinence, normal bowel movements reported Genitourinary: No new onset incontinence Musculoskeletal: Chronic back pain Psychiatric: [Normal mood/affect] Neurological: [Denies weakness in extremities], [denies balance issues] Meds Home Medications and Allergies Home Medications ?Medication ?Instructions ?Recorded ?Confirmed ?Type aripiprazole 10 mg tablet 5 mg PO DAILY Depression 05/25/21 05/11/25 History atorvastatin 80 mg tablet 80 mg PO HS Cholesterol 05/25/21 05/11/25 History carvedilol 6.25 mg tablet 12.5 mg PO BID blood pressure 05/25/21 05/11/25 History ergocalciferol (vitamin D2) 1,250 1 tab PO WEEKLY Supplement 05/25/21 05/11/25 History mcg (50,000 unit) capsule hydroxyzine pamoate 50 mg capsule 50 mg PO TID PRN Anxiety 05/25/21 05/11/25 History lamotrigine 25 mg tablet 25 mg PO TID seizures 05/25/21 05/11/25 History levothyroxine 88 mcg capsule 88 mcg PO DAILY . 05/25/21 05/11/25 History pantoprazole 40 mg tablet,delayed 40 mg PO DAILY GERD 05/25/21 05/11/25 History release promethazine 25 mg tablet 25 mg PO Q6H PRN Nausea And 05/25/21 05/11/25 History Vomiting ropinirole 0.25 mg tablet 2 mg PO HS RLS 05/25/21 05/11/25 History venlafaxine 75 mg capsule,extended 225 mg PO DAILY Depression 05/25/21 05/11/25 History release 24 hr zonisamide 100 mg capsule 100 mg PO TID migraines/seizures 05/25/21 05/11/25 History albuterol sulfate 90 mcg/actuation 2 inh INHALATION DIRECTED . 05/27/21 05/11/25 History aerosol inhaler (ProAir HFA) cyanocobalamin (vitamin B-12) 1,000 mcg IM MONTHLY suppliment 05/27/21 05/11/25 History 1,000 mcg/mL injection solution spironolactone 25 mg tablet 25 mg PO DAILY Fluid 06/07/21 05/11/25 History mirtazapine 15 mg tablet (Remeron) 15 mg PO HS sleep 10/21/22 05/11/25 History cyclobenzaprine 10 mg tablet 10 mg PO BID PRN Muscle Spasm #20 11/11/22 05/11/25 Rx tabs tizanidine 4 mg tablet (Zanaflex) 4 mg PO TID MUSCLES 12/12/22 05/11/25 History minocycline 100 mg capsule 100 mg PO DAILY Skin condition 02/13/23 05/11/25 History morphine (PF) 1 mg/mL injection 0.1 mg continuous intrathecal 02/20/23 05/11/25 History solution infusion CONT Pain baclofen 10 mg tablet 10 mg PO QID Pain #120 tabs 08/10/24 05/11/25 Rx prednisone 20 mg tablet 20 mg PO BID #10 tabs 02/27/25 05/11/25 Rx methocarbamol 500 mg tablet 1,000 mg (2 x 500 mg) PO Q6H PRN 04/07/25 05/11/25 Rx Muscle Spasm #240 tabs New Prescriptions to Start Prescriptions: Allergies Allergy/AdvReac Type Severity Reaction Status Date / Time meclizine Allergy Intermediate Unknown Verified 01/27/25 09:19 allergy reaction doxycycline Allergy Mild Vomiting Verified 01/27/25 09:19 diphenhydramine (From Allergy Unknown Unknown Verified 01/27/25 09:19 BENADRYL) allergy reaction Tetanus Vaccines and Toxoid Allergy Unknown Unknown Verified 01/27/25 09:19 (TETANUS VACCINES & TOXOID) allergy reaction adhesive tape Allergy Rash Verified 01/27/25 09:19 Exam Data for Last 24 hours Vital signs and Labs for Last 24 Hours: Pulse Resp BP Pulse Ox O2 Del Method 79 16 148/79 H 97 Room Air 05/26/25 10:05/26/25 10:05/26/25 10:05/26/25 10:05/26/25 10:21 I & O for Last 24 hours: Intake & Output 05/23/25 05/24/25 05/25/25 05/26/25 23:59 23:59 23:59 23:59 Weight 289 lb Constitutional Constitutional: no acute distress *Routine HEENT Exam Head: Present normocephalic and atraumatic Eye: Present PERRL ENT: Present mucous membranes moist *Routine Neck Exam Neck: Present supple *Routine Respiratory Exam Respiratory: Present CTA bilaterally *Routine Cardiovascular Exam Cardiovascular: Present RRR *Routine Abdominal Exam Abdominal: Present soft *Routine Rectal Exam Rectal:: deferred *Routine Genitalia Exam Genitalia:: deferred Routine Back/Spine/Pelvis Exam Back/Spine: Present pain with flexion *Routine Skin Exam Skin: Present intact and warm *Routine Neurological Exam Neurological: Present alert and oriented X3 Routine Psychiatric Exam Psychiatric: Present normal affect and normal thought process Assessment and Plan *Assessment and plan (1) Back pain: Status: Acute Category: Medical Code(s): M54.9 - Dorsalgia, unspecified
[2025-05-26 10:30] VITALS: BP 153/78; PULSE 79; RESP 18; O2SAT 95
[2025-05-26 10:40] VITALS: BP 133/99; PULSE 76; RESP 18; O2SAT 98
== END 2025-05-26 10:40 | disposition home or self-care (01) ==
PROVIDERS: Visit Provider Nurse Practitioner Family
DX: Z45.1 Encounter for adjustment and management of infusion pump (principal); M51.369 Other intervertebral disc degeneration, lumbar region without mention of lumbar back pain or lower extremity pain; G89.4 Chronic pain syndrome; F41.9 Anxiety disorder, unspecified; J45.909 Unspecified asthma, uncomplicated; I11.0 Hypertensive heart disease with heart failure; I50.9 Heart failure, unspecified; E11.9 Type 2 diabetes mellitus without complications; E78.5 Hyperlipidemia, unspecified; Z95.0 Presence of cardiac pacemaker; G40.909 Epilepsy, unspecified, not intractable, without status epilepticus; G47.30 Sleep apnea, unspecified; F17.210 Nicotine dependence, cigarettes, uncomplicated; Z88.1 Allergy status to other antibiotic agents; Z88.7 Allergy status to serum and vaccine; Z88.8 Allergy status to other drugs, medicaments and biological substances; Z91.048 Other nonmedicinal substance allergy status
CPT/HCPCS: 62370

== ENCOUNTER 2025-06-12 11:30 | Outpatient (POV) | payer OTHER, SELFPAY ==
--- OUTSIDE RECORDS SUMMARY | 2024-05-30 09:20 | XMS_ITS ---
Author Organization [facility] Address [address] [place] [address] Care Team Providers Care Sea Shell Gatherer Name Role Phone Harpreet Castaneda Unavailable [phone] Encounters Encounter Location Date Provider Diagnosis [facility] [address] [facility] [address] [place] [address] 05/30/2024 Harpreet Castaneda Plan Of Treatment Next Appt Details Provider Name:Harpreet Castaneda, 06/13/2025 03:00:00 PM, [address] [facility], [address], [place], [address], Progress Notes * Frannie NUÑEZDOB:[birth year] (55 yo F)Acc No.[id number]:05/30/2024 progress note Patient: Frannie ZAVALA Provider: Denzel Castaneda MD :1970 A ge:53 Y S ex:Female Date:05/30/2024 Address:[address], [id number] Subjective: * Chief Complaints: * * Medical History: Objective: * Vitals: Assessment: Plan: * Treatment: Care Plan: * Problems: * Billing Information: * Visit Code: * Procedure Codes: * Electronic signature of Cici Castaneda M.D. on 06/12/2025 at 12:10 PM EDT Sign off status: Pending * Provider: Denzel Castaneda MD Date: 0 05/30/2024 Generated for Cayla james/Linda/Krystynaitting on: 0 06/12/2025 12:10 PM EDT
--- OUTSIDE RECORDS SUMMARY | 2024-05-30 09:20 | XMS_ITS ---
Author Organization [facility] Address [address] [place] [address] Care Team Providers Care Maths Tutor Name Role Phone Ronaldo Kong Primary Care Provider Unavailabl Harpreet Pastrana Unavailable [phone] Jennie Royal Unavailable Unavailable Encounters Encounter Location Date Provider Diagnosis [address] [place] [address] 05/30/2024 Harpreet Castaneda Plan Of Treatment No Information Progress Notes * Frannie NUÑEZDOB:[birth year] (55 yo F)Acc No.[id number]:05/30/2024 Progress Note Patient: Frannie ZAVALA Provider: Denzel Castaneda MD :1970 A ge:53 Y S ex:Female Date:05/30/2024 Address:[address], [id number] Pcp:Ronaldo Kong Subjective: * Chief Complaints: * * Medical History: Objective: * Vitals: Assessment: Plan: * Treatment: * * Electronic signature of Cici Castaneda MD on 06/12/2025 at 11:09 AM CDT Sign off status: Pending * Provider: Denzel Castaneda MD Date: 05/30/2024 Generated for Cayla james/Famicheal/eTransmitting on: 06/12/2025 11:09 AM CDT
--- OUTSIDE RECORDS SUMMARY | 2025-05-16 11:00 | XMS_ITS | Encounter Summary ---
Author Organization [facility] Address [address] [place] [address] Care Team Providers Care Refrigerator Glazier Name Role Phone System, Provider Not In Primary Care Provider Un available Reason for Visit * Reason Comments Pacemaker Check Hypertension Pt states she is her e today for follow up HTN. No chest pain, SOA, dizziness or palpitations. Sleep Apnea Pt states she is her e today for follow up BRENDA. She states she is doing well on current therapy. DL is in [employer]. Encounter Details Date Type Department Care Team (Late st Contact Info) Description 05/16/2025 11:00 AM EDT Office Visit [facility]ARD[facility] [address] [place] [address] Daphney Anton MD [address] [place] [address] Other fatigue (Primary Dx); BRENDA treated with BiPAP; Pacemaker; Primary hypertension Social History Tobacco Use Types Packs/Day Years [...] 02/17 Potentially Unsafe Housing Conditions Not on asmmy e 03/10/2024 Disabilities Answer Date Recorded Concentrating, Remembering, or Making Decisions Difficulty Not on file 03/10/2024 Difficulty Managing Errands Independently no 03/10/2024 Education Answer Date Recorded Help with school or training? Not on file Preferred Language Micronesian 03/03/2024 PHQ-2 Answer Date Recorded Retired PHQ-9: [...] Sign Reading Time Taken Comments Blood Pressure 130/90 05/16/2025 11:19 AM EDT Pulse 92 05/16/2025 11:19 AM EDT Temperature - - Respiratory Rate - - Oxygen Saturation 96% 05/16/2025 11:19 AM EDT Inhaled Oxygen Concentration - - Weight 130 kg (286 lb) 05/16/2025 11:19 AM EDT Height 162.6 cm (5' 4 ) 05/16/2025 11:19 AM EDT Body Mass Index 49.09 05/16/2025 11:19 AM EDT documented in this encounter Progress Notes * Daphney Anton MD - 05/16/2025 11:00 AM EDT Images from the original note were not included. [facility] Provider Note Date: 05/16/2025 Name: Frannie Nuñez : 1970 PCP: System, Provider Not In Chief Complaint Patient presents with Pacemaker Check Hypertension Pt states she is here today for follow up HTN. No chest pain, SOA, dizziness or palpitations. Sleep Apnea Pt states she is here today for follow up BRENDA. She states she is doing well on current therapy. DL is in [facility]. Subjective History of Present Illness Frannie Nuñez is a 54 y.o. female with PM, BRENDA who presents today for follow up. Was getting fatigued during the day with spironolactone. BP at home running 130/80's No chest pain, no swelling, no dizzy or passing out. Wearing pap machine faithfully. Had trouble last month with mask leak. Got a new mask which seems to help some. 05/16/2025 Updated Cardiac/Sleep history 1. Hypertension 2. Congestive heart [...] present. ?? Mild pulmonary hypertension is present. *[facility] 01/15/23- Angiographically normal coronary arteries. Normal left ventricular systolic function. Allergies Allergen Reactions Diphenhydramine Hives [...] (Four) Times a Day., Disp: , Rfl: carvedilol (COREG) 12.5 MG tablet, TAKE ONE TABLET BY MOUTH 2 TIMES A DAY, Disp: 60 tablet, Rfl: 5 cetirizine (zyrTEC) 10 MG tablet, TAKE ONE TABLET BY MOUTH ONCE A DAY, Disp: 30 tablet, Rfl: 3 Continuous Glucose Sensor (Dexcom G6 Sensor), See Admin Instructions., Disp: , Rfl: Continuous Glucose Transmitter (Dexcom G6 Transmitter) [facility], See Admin Instructions., Disp: , Rfl: desvenlafaxine (PRISTIQ) 50 MG 24 hr tablet, Take 1 tablet by mouth Daily., Disp: , Rfl: dexlansoprazole (DEXILANT) 60 MG capsule, TAKE ONE CAPSULE BY MOUTH ONCE a DAY, Disp: , Rfl: Emgality 120 MG/ML auto-injector pen, Inject 1 mL under the skin into the appropriate area as directed Every 30 (Thirty) Days. Last dose 07/25/23, Disp: , Rfl: fluticasone (FLONASE) 50 MCG/ACT nasal spray, USE 2 SPRAYS IN EACH NOSTRIL ONCE A DAY NEEDED FORALLERGIES, Disp: 16 g, Rfl: 3 FREESTYLE LITE test strip, , Disp: , Rfl: furosemide (LASIX) 20 MG tablet, TAKE ONE TABLET BY MOUTH 2 TIMES A DAY. TAKE ONE TABLET NEEDED FOR AGRESSIVE EDEMA OR WEIGHT GAIN GREATER THAN 2 POUNDS OVER 24 HOURS, Disp: 60 tablet, Rfl: 0 lamoTRIgine (LaMICtal) 150 MG tablet, Take 1 tablet by mouth Daily. 2 tablets once daily, Disp: , Rfl: Linzess 145 MCG capsule capsule, TAKE ONE CAPSULE BY MOUTH ONCE A DAY 30 MINUTES BEFORE MEAL (Patient taking differently: prn), Disp: , Rfl: nicotine polacrilex (COMMIT) 4 MG lozenge, DISSOLVE 1 lozenge BY MOUTH EVERY 1 TO 2 HOURS DO not exceed more THAN 20 PER DAY (Patient taking differently: Off/on), Disp: , Rfl: Nurtec 75 MG dispersible tablet, Take 75 tablets by mouth As Needed. As needed, Disp: , Rfl: nystatin (MYCOSTATIN) [id number] UNIT/GM powder, Apply topically to the appropriate area as directed 3 (Three) Times a Day., Disp: 60 g, Rfl: 1 ondansetron ODT (ZOFRAN-ODT) 4 MG disintegrating tablet, DISSOLVE 2 TABLETS ON THE TONGUE 2 TIMES ADAY NEEDED, Disp: , Rfl: QUEtiapine (SEROquel) 50 MG tablet, , Disp: , Rfl: rOPINIRole (REQUIP) 2 MG tablet, Take 2 tablets by mouth every night at bedtime., Disp: , Rfl: rosuvastatin (CRESTOR) 20 MG tablet, Take 1 tablet by mouth Daily., Disp: , Rfl: Trelegy Ellipta 100-62.5-25 MCG/ACT inhaler, , Disp: , Rfl: zonisamide (ZONEGRAN) 100 MG [...] procedure: Left Heart Cath; Surgeon: Burt Roman MD; Location: [facility] CATH INVASIVE LOCATION; Service: Cardiovascular; Laterality: N/A; CARDIAC ELECTROPHYSIOLOGY PROCEDURE N/A 08/12/2022 Procedure: DEVICE IMPLANT; Surgeon: Daphney Anton MD; Location: [facility] INVASIVE LOCATION; Service: Cardiology; Laterality: N/A; CARPAL TUNNEL RELEASE Bilateral CERVICAL SPINE SURGERY X2 COLONOSCOPY 12/26/2020 Diverticulosis left side, 1.2 cm adenoma with hyperplastic polyps, 5-year follow-up recommended COLONOSCOPY 01/11/2025 ENDOSCOPY HYSTERECTOMY 2003 Secondary to endometriosis, prior Pap smears normal INTERSTIM PERC TEST Bilateral 07/16/2023 Procedure: AXONICS BILATERAL PERC TEST; Surgeon: Reta Lee MD; Location: [facility]; Service: Urology; Laterality: Bilateral; INTERSTIM PLACEMENT N/A 08/13/2023 Procedure: AXONICS STAGES 1 AND 2 LEAD AND GENERATOR PLACEMENT; Surgeon: Reta Lee MD; Location: [facility]; Service: Urology; Laterality: N/A; INTERSTIM REVISION N/A 03/10/2024 Procedure: AXONICS GENERATOR REVISION; Surgeon: Reta Lee MD; Location: [facility]; Service: Urology; Laterality: N/A; KNEE MENISCAL REPAIR Right 02/2019 PACEMAKER IMPLANTATION 07/2022 sick sinus syndrome PAIN PUMP INSERTION/REVISION Right Back REPLACEMENT TOTAL KNEE Right SHOULDER SURGERY Left no tendon to hold ball joint together, placed cords to hold joint together TOTAL HIP ARTHROPLASTY Bilateral TOTAL KNEE ARTHROPLASTY [...] Sexual activity: Defer Objective Vital Signs: BP 130/90 (BP Location: Right arm, Patient Position: Sitting, Cuff Size: Large Adult) Pulse 92 Ht 162.6 cm (64 ) Wt 130 kg (286 lb) SpO2 96% BMI 49.09 kg/m?? Estimated body mass index is 49.09 kg/m?? as calculated from the following: Height as of this encounter: 162.6 cm (64 ). Weight as of this encounter: 130 kg (286 lb). Physical Exam Constitutional: Appearance: Normal appearance. She is well-developed. HENT: Head: Normocephalic and atraumatic. Eyes: General: No scleral icterus. Pupils: Pupils are equal, round, and reactive to light. Cardiovascular: Rate and Rhythm: Normal rate and regular rhythm. Heart sounds: Normal heart sounds. No murmur heard. Pulmonary: Breath sounds: Normal breath sounds. No wheezing or rhonchi. Musculoskeletal: Right lower leg: No edema. Left lower leg: No edema. Skin: Capillary Refill: Capillary refill takes less than 2 seconds. Coloration: Skin is not cyanotic. Nails: There is no clubbing. Neurological: Mental Status: She is alert and oriented to person, place, and time. Motor: No weakness. Gait: Gait normal. Psychiatric: Mood and Affect: Mood normal. Behavior: Behavior is cooperative. Thought Content: Thought content normal. Assessment and Plan ASSESSMENTS AND ORDERS Diagnoses and all orders for this visit: 1. Other fatigue (Primary) 2. BRENDA treated with BiPAP 3. Pacemaker 4. Primary hypertension PLAN -PM DL reviewed, good battery life and lead function. - good compliance and control on pap machine, I dont think this is the cause her fatigue -fatigue better off spironolactone -HTN doing well off spironolactone, continue current meds. Follow Up Return in about 6 months (around 11/16/2025) for Next scheduled follow up, PM/ICD check. Kamran Anton MD Cardiology and Sleep [facility] 05/16/2025 Please note that this explicitly excludes time [...] Description 11/13/2025 11:00 AM EST Office Visit [facility] [address] [place] [address] Daphney Anton MD [address] [place] [address] 11/13/2025 11:00 AM EST Clinical Support No Requirements [facility] [address] [place] [address] documented as of this encounter Visit Diagnoses Diagnosis Other fatigue- Primary BRENDA treated with BiPAP Pacemaker Cardiac pacemaker in situ Primary hypertension Unspecified essential hypertension documented in this encounter Additional Health Concerns Assessment Noted Time PHQ-2 Depression Total Score: 3 07/18/20 24 11:28 AM EDT documented as of this encounter Care Teams Refrigerator Glazier Relationship Specialty Start Date End Date System, [place] [address] PCP - General 02/14/25 documented as of this encounter
--- OUTSIDE RECORDS SUMMARY | 2025-05-23 04:20 | XMS_ITS ---
Author Organization [facility] Address [address] [place] [address] Care Team Providers Care Inbound Sales Advisor Name Role Phone Harpreet Castaneda Unavailable [phone] Medications Medication SIG (Take, Route, Frequency, Duration) [...] Active Encounters Encounter Location Date Provider Diagnosis [facility] [address] [facility] [address] [place] [address] 05/23/2025 Harpreet Castaneda Plan Of Treatment Next Appt Details Provider Name:Harpreet Castaneda, 06/13/2025 03:00:00 PM, [facility], [facility], [place], [address], Progress Notes * Frannie NUÑEZDOB:[birth year] (55 yo F)Acc No.[id number]:05/23/2025 progress note Patient: Frannie ZAVALA Provider: Denzel Castaneda MD :1970 A ge:54 Y S ex:Female Date:05/23/2025 Address:[facility] [address], [id number] Subjective: * Chief Complaints: * * Medical [...] of Cici Castaneda M.D. on 06/12/2025 at 12:08 PM EDT Sign off status: Pending * Provider: Denzel Castaneda MD Date: 0 05/23/2025 Generated for Printi ng/Linda/Krystynaitting on: 0 06/12/2025 12:08 PM EDT
--- OUTSIDE RECORDS SUMMARY | 2025-06-01 09:20 | XMS_ITS | Encounter Summary ---
Author Organization [facility] Address [address] [place] [address] Care Team Providers Care Crime Scene Technician Name Role Phone Carlos Guardadona OMAR Primary Care Provider [phone] Magalis Reid APRN, DNP Unavailable [phone] Reason for Referral * Imaging (Routine) - Authorized Specialty Diagnoses / Procedures Referred By Contsiva t Referred To Contact Radiology Diagnoses Neurogenic bladder Procedures US Renal Complete Magalis Reid APRN, DNP [address] [address] Phone: tel: fax: Referral ID Status Reason Start Date Expiration Date V isits Requested Visits Authorized [id number] Authorized 06/01/2025 12/01/2026 1 1 Reason for Visit * Reason Comments UDS * Other Medical (Routine) - Closed Specialty Diagnoses / Procedures Referred By Contac t Referred To Contact Urology Diagnoses Incomplete emptying of bladder Procedures UDS Kaylene Fernandez APRN [address] [address] Phone: tel: fax: Referral ID Status Reason Start Date Expiration Date Visits Re quested Visits Authorized [id number] Closed 11/14/2024 05/16/2026 1 1 Encounter Details Date Type Department Care Team (Late st Contact Info) Description 06/01/2025 9:20 AM EDT Office Visit [facility] [address] [place] [address] Magalis Reid APRN, DNP [address] [place] [address] Neurogenic bladder (Primary Dx); Incomplete emptying of bladder; Sacral nerve stimulator present Social History Tobacco Use Types Packs/Day Years [...] Sign Reading Time Taken Comments Blood Pressure 140/89 06/01/2025 9:36 AM EDT Pulse 73 06/01/2025 9:36 AM EDT Temperature - - Respiratory Rate - - Oxygen Saturation - - Inhaled Oxygen Concentration - - Weight - - Height - - Body Mass Index - - documented in this encounter Miscellaneous Notes * Progress Notes - Magalis Reid APRN, DNP - 06/01/2025 9:20 AM EDTAssociated Order(s): UDS Pre-Procedure Diagnose(s): Incomplete emptying of bladder Post-Procedure Diagnose(s): Incomplete emptying of bladder [facility] Note CC: UDS HPI: Frannie Nuñez is a 54 y.o. F with PMH HTN, T2DM, seizure disorder, asthma, DJD, fibromyalgia, endometriosis, BRENDA, hypothyroidism, anxiety, COPD, CHF, and migraines Initially evaluated by OMAR Fernandez for a second opinion regarding SNS. She had an axonics SNS placed 08/13/[address] Lee for urinary retention. She denies catheterization during trial period. she did have a wound dehiscence following surgery She states that when SNS is on it causes lower extremity edema and makes her retention worse. She is on Bumex Denies swelling when device is off She felt like the stimulator flipped out of the pocket when she bumped into a sink in her kitchen; then had it revised and placed back in the pocket. She tried to use it for another month, swelling came back. She noted some burning and pain at IPG site. She reports continued difficulty urinating despite an urge With hesitancy, once stream starts she feels like she has to grunt with a trickling stream. She will have to work to empty, then gets up and bends over and will leak more. Denies any incontinence Denies any prolapse Denies UTIs or blood in urine Daytime frequency: 4-5x, able to feel a normal urge with nocturia x 1 She admits to only drinking Diet Mountain Dew. She has a history of diarrhea and constipation, is followed by GI. Thinks her bladder symptoms are worse when she's constipated; she sometimes had to have a bowel movement in order to urinate. Current smoker 1 ppd x 30 years She notes difficulty urinating for at least 3 years. Her last A1c was 6.3 She states that [employer]orman has reprogrammed her device and she felt stimulation in the appropriate area. Initial exam unremarkable, no prolapse noted. We discussed getting a UDS to further evaluate her symptoms. If she is bothered enough she could CIC; most recent cr WNL. Will get PORTER to evaluate for hydronephrosis. Discussed body habitus may make CIC difficult. PVR today 1 hour was 181 mL. Can also contact [employer] for repeat programing. 12/2024 PORTER resulted without hydronephrosis or stones bilaterally. Moderate hepatic steatosis in thepartially imaged liver. She returns today for VUDS for evaluation of urinary retention and difficulty voiding. She reports her SNM has not been working and is not on. She reports a 5 year history of well controlled T2DM, last A1c 6.9%. She volitionally voids with straining when she feels an urge 2-5x/day with occasional UI after feeling completely emptying, and has scant amount of unaware UI on underwear daily. She usesBaclofen 10 mg TID for chronic back pain. PMHx: Problem List[1] Past Medical History[2] PSHx: Surgical History[3] FHx: Family History[4] SHx: Social History[5] OBHx: OB History No obstetric history on file. Ovaries: absent bilateral Uterus: absent Vaginal estrogen: No Systemic estrogen: No no trauma Normal paps ROS: See HPI Physical Exam: There were no vitals filed for this visit. Knit Goods Washer present during entire exam General: Pleasant, alert, in no acute distress, well appearing Pulmonary: no increased work of breathing or signs of respiratory distress. Abdomen: soft, flat, Musculoskeletal: normal gait and station. Skin: Warm, dry, and intact Neurologic: perineal sensation to light tough intact and symmetric Psychiatric: oriented to person, place, and time. Mood and affect appeared normal. Results/Data: Recent Results (from the past week) POCT URINALYSIS DIPSTICK Collection Time: 06/01/25 9:51 AM Result Value Ref Range POCT Urine Color Yellow POCT Urine Clarity Clear POCT Urine Glucose Negative Negative mg/dL POCT Urine Bilirubin Negative Negative mg/dL POCT Urine Ketones Negative Negative mg/dL POCT Urine Specific [place] 1.015 1.005 - 1.030 POCT Urine Blood Negative Negative POCT pH, Urine 7.0 5.0 - 8.0 POCT Protein, Urine Negative Negative mg/dL POCT Urobilinogen, Urine 0.2 0.2, 1.0 EU/dL POCT Nitrite, Urine Negative Negative POCT Urine Leukocyte Esterase Negative Negative Labs: Lab Results Component Value Date HGBA1C 6.9 (H) 03/03/2024 Lab Results Component Value Date GLUCOSE 173 (H) 05/12/2024 CALCIUM 9.2 05/12/2024 NA 141 05/12/2024 K 4.5 05/12/2024 CO2 22 10/02/2023 CL 106 05/12/2024 BUN 15 05/12/2024 CREATININE 0.93 05/12/2024 EGFR 73 05/12/2024 Recent Results (from the past week) POCT URINALYSIS DIPSTICK Collection Time: 06/01/25 9:51 AM Result Value Ref Range POCT Urine Color Yellow POCT Urine Clarity Clear POCT Urine Glucose Negative Negative mg/dL POCT Urine Bilirubin Negative Negative mg/dL POCT Urine Ketones Negative Negative mg/dL POCT Urine Specific [place] 1.015 1.005 - 1.030 POCT Urine Blood Negative Negative POCT pH, Urine 7.0 5.0 - 8.0 POCT Protein, Urine Negative Negative mg/dL POCT Urobilinogen, Urine 0.2 0.2, 1.0 EU/dL POCT Nitrite, Urine Negative Negative POCT Urine Leukocyte Esterase Negative Negative Cultures: Lab Results Component Value Date URINECX No growth at day 2 02/05/2022 Imaging: Procedure: UDS Performed by: Magalis Reid APRN, MARCO Authorized by: Kaylene Fernandez APRN [place] Protocol: Time out called at: 05/31/2025 10:20 AM Patient identity confirmed: Verbally with patient and hospital-assigned identification number Correct site/side verified and marked: yes Correct patient positioning for procedure: yes Verified correct procedure: yes Pre-procedure medications ordered/given (to include antibiotics if applicable): no Essential imaging and labs available and reviewed: yes Procedure explained and questions answered to patient or proxy's satisfaction: yes Consent obtained: Verbal and written Consent given by: Patient Risks, benefits, and alternatives discussed: Yes Safety precautions reviewed?: yes Relevant documents present and verified: yes Required blood products, implants, devices, and special equipment available: no Procedure Details: CMG with UPP/voiding pressures Pelvic Examination Performed?: No Pessary Performed?: No Was bladder voided as part of this procedure?: Yes Fluoro Time (total seconds): 53 Fluoro Dose (Gy-cm2): 55.9 Position: Sitting Outcome: patient tolerated procedure well with no complications Post-procedure interventions: post-procedure instructions given Uroflow PRIOR to UDS study completed: Average flow rate: 0.5 ml/s Qmax: 3.8 mL/s VV: 16 mL in seated position Flow time: 10 s Voiding time: 21 s Reportedly indicates a typical void Complex CMG with EMG #1: Prestudy PVR: <10 mL Filling rate: 50 mL/min in seated position First sensation: 46 mL without IDC First desire: 49 mL without IDC Pain in urethra that radiated to umbilicus at 120 ml Strong desire: 150 mL, PTV Maximum Capacity: 150 mL Compliance: normal CELI: NOT demonstrated at 150 mL with cough and valsalva DO: No Cystogram: Bilateral hip prosthesis, right sided SNM IPG, and left sided SNM lead noted. The bladder was neurogenic in appearance with no filling defects or diverticula noted. The bladder neck was closed at rest and there was no vesicoureteral reflux. Voiding pressure study #1: VV: 149 mL in seated position with straining and bending over, finally voided on 6th strain which is typical void for her Qmax: 13 mL/s Pdet at Qmax: N/A as urethral catheter fell out during void Pdet max: 35 cm H20 with strain prior to urethral catheter falling out EMG: increased throughout PVR: 1 mL VCUG: The bladder neck funneled appropriately and there were no areas of urethral narrowing or dilation. Dose Report: Start time: 1020 00:53.0 of fluoroscopy time 55.875 mGy I personally both performed and interpreted the radiologic portion of the exam. Assessment: Frannie Nuñez is a 54 y.o. F with UDS UA and PVR WNL. She was informed that her difficulty voiding and urinary retention are likely related to atonic bladder complicated by PFD.She was offered trial bethanechol and/or CIC, but deferred both. She preferred to continue BaclofenTID and to maximize conservative PFD measures. She agreed to complete yearly BMP and PORTER and to follow up with OMAR Fernandez in December 2025 or earlier as necessary. In addition to the time spent performing the urodynamics testing, the visit included 60 minutes forevaluation and management. Plan: 1. Conservative measures for PFD 2. Baclofen 10 mg up to 3x/day for PFD 3. Follow up in December 2025 with OMAR Fernandez with yearly surveillance BMP and PORTER or earlier as necessary Magalis Reid APRN, DNP [1] Patient Active Problem List Diagnosis Wound dehiscence Abdominal wall seroma Tobacco use disorder Second hand smoke exposure Acute cystitis with hematuria Arthropathy of cervical spine Asthma Atherosclerosis of other arteries Bradycardia B12 deficiency Candidiasis of skin and nail Bronchitis, chronic (CMS/HCC) Candidiasis of vulva and vagina Chest pain Cigarette smoker motivated to quit Chronic obstructive pulmonary disease, unspecified (CMS/HCC) Chronic diastolic (congestive) heart failure (CMS/HCC) Gastritis without bleeding Dyspepsia Depression Degenerative disc disease, lumbar Mild hyperlipidemia Migraine without aura and without status migrainosus, not intractable Morbid (severe) obesity due to excess calories (CMS/HCC) Occlusion and stenosis of left carotid artery Shortness of breath Seizure disorder ([facility]/HCC) Unilateral primary osteoarthritis, left knee Endometriosis Vitamin D deficiency Open wound Hypothyroidism Hypokalemia Hypertension Hidradenitis suppurativa Generalized anxiety disorder Fibromyalgia Allergic rhinitis due to pollen Left foot pain Pain in left knee BRENDA (obstructive sleep apnea) OAB (overactive bladder) Nausea and vomiting Other specified disorders of veins Other iron deficiency anemias Other difficulties with micturition Pacemaker Prediabetes RLS (restless legs syndrome) Sick sinus syndrome ([facility]) Shingles Rosacea Swelling of lower extremity Swelling Stasis edema of both lower extremities Syncopal episodes Urinary retention Tinea unguium Tinea corporis Vertigo Dizziness Hiatal hernia Degenerative disc disease, cervical Sacral nerve stimulator present [2] Past Medical History: Diagnosis Date Anxiety Arthritis Asthma controlled with medication; breathing at baseline today (09/20/21) Chronic diastolic (congestive) heart failure ([facility]) 05/27/2022 Chronic obstructive pulmonary disease, unspecified ([facility]) 05/27/2022 Decreased ROM of neck S/P cervical fusion Degenerative disc disease, thoracic Dental disease missing fillings x 2 Depression Diabetes mellitus ([facility]) 2019 Endometriosis Exercise tolerance finding 09/20/2021 Can climb 1 flight of stairs w/o SOB Fibromyalgia Hyperlipidemia Hypertension Hypothyroidism Migraine Prediabetes Seizure disorder ([facility]) controlled with medication, last ~2018 Sleep apnea uses BiPAP [3] Past Surgical History: Procedure Laterality Date ANTERIOR CERVICAL DISCECTOMY W/ FUSION N/A BLADDER SURGERY CARPAL TUNNEL RELEASE CHOLECYSTECTOMY 2024 DENTAL SURGERY DENTAL SURGERY 11/03/2022 all of bottom teeth removed HYSTERECTOMY 1997 INSERT / REPLACE / REMOVE PACEMAKER IR PAIN PUMP IMPLANT/ REPLACEMENT 2022 KNEE ARTHROSCOPY Right LAPAROTOMY SALPINGO OOPHORECTOMY Bilateral 09/23/2021 PARTIAL HYSTERECTOMY 2001 SALPINGOOPHORECTOMY 09/2021 SHOULDER SURGERY TOTAL HIP ARTHROPLASTY Bilateral TOTAL KNEE ARTHROPLASTY Left 2019 [4] Family History Problem Relation Name Age of Onset Ovarian cancer Maternal Grandmother Heart disease Maternal Grandmother [5] Social History Tobacco Use Smoking status: Every Day Current packs/day: 1.00 Average packs/day: 1 pack/day for 30.0 years (30.0 ttl pk-yrs) Types: Cigarettes Passive exposure: Current Smokeless tobacco: Never Vaping Use Vaping status: Never Used Substance Use Topics Alcohol use: Not Currently Drug use: Not Currently documented in this encounter Plan of Treatment Upcoming Encounters Date Type Department Care Team (Late st Contact Info) Description 01/05/2026 9:15 AM EDT Appointment [facility] [address] [place] [address] 01/05/2026 11:00 AM EDT Clinical Support [facility] [address] [place] [address] 01/05/2026 12:20 PM EDT Office Visit [facility] [address] [place] [address] Kaylene Fernandez APRN [address] [place] [address] Scheduled Orders Name Type Priority Associated Diagnoses Orde r Schedule Basic Metabolic Panel, Plasma Lab Routine Neurogenic bladder Expected: 12/18/2025 (Approximate), Expires: 12/03/2026 Renal Complete Imaging Routine Neurogenic bladder Expected: 12/18/2025 (Approximate), Expires: 12/03/2026 documented as of this encounter Procedures Procedure Name Priority Date/Time Associated Diagnosis Comments POCT URINALYSIS DIPSTICK Routine 06/01/2025 9:51 AM EDT UROLOGY UDS WITH BASE PERFORMABLE CHARGES Routine 06/01/2025 9:20 AM EDT Incomplete emptying of bladder [place] COMPLEX CYSTOMETROGRAM W/VOID PRESS&URETHRAL PROFILE Routine 06/01/2025 9:20 AM EDT Incomplete emptying of bladder INJECTION FOR BLADDER XRAY WITHOUT VOIDING Routine 06/01/2025 9:20 AM EDT Incomplete emptying of bladder documented in this encounter Results * POCT URINALYSIS DIPSTICK (06/01/2025 9:51 AM EDT) POCT Urine Color Yellow 06/01/2025 9:53 AM EDT [facility] POCT Urine Clarity Clear 06/01/2025 9:53 AM EDT [facility] POCT Urine Glucose Negative Negative mg/dL 06/01/2025 9:53 AM EDT [facility] POCT Urine Bilirubin Negative Negative mg/dL 06/01/2025 9:53 AM EDT [facility] POCT Urine Ketones Negative Negative mg/dL 06/01/2025 9:53 AM EDT [facility] POCT Urine Specific [place] 1.015 1.005 - 1.030 06/01/2025 9:53 AM EDT [facility] POCT Urine Blood Negative Negative 06/01/2025 9:53 AM EDT [facility] POCT pH, Urine 7.0 5.0 - 8.0 06/01/2025 9:53 AM EDT [facility] POCT Protein, Urine Negative Negative mg/dL 06/01/2025 9:53 AM EDT [facility] POCT Urobilinogen, Urine 0.2 0.2, 1.0 EU/dL 06/01/2025 9:53 AM EDT [facility] POCT Nitrite, Urine Negative Negative 06/01/2025 9:53 AM EDT [facility] POCT Urine Leukocyte Esterase Negative Negative 06/01/2025 9:53 AM EDT [facility] Urine 06/01/2025 9:51 AM EDT 06/01/2025 9:53 AM EDT us Magalis Reid APRN, DNP LAB POINT OF CAR E TEST DOCKED DEVICE UNSOLICITED RESULTS Final Result [facility] [address] [place] * INJECTION FOR BLADDER XRAY WITHOUT VOIDING, [place] COMPLEX CYSTOMETROGRAM W/VOID PRESS&URETHRAL PROFILE, UROLOGY UDS WITH BASE PERFORMABLE CHARGES (06/01/2025 9:20 AM EDT) Narrative Magalis Reid APRN, DNP - 06/01/2025 9:20 AM EDT Magalis Reid APRN, DNP 06/06/2025 10:40 PM UDS Performed by: Magalis Reid APRN, DNP Authorized by: Kaylene Fernandez APRN [place] Protocol: Time out called at: 05/31/2025 10:20 AM Patient identity confirmed: Verbally with patient and hospital-assigned identification number Correct site/side verified and marked: yes Correct patient positioning for procedure: yes Verified correct procedure: yes Pre-procedure medications ordered/given (to include antibiotics if applicable): no Essential imaging and labs available and reviewed: yes Procedure explained and questions answered to patient or proxy's satisfaction: yes Consent obtained: Verbal and written Consent given by: Patient Risks, benefits, and alternatives discussed: Yes Safety precautions reviewed?: yes Relevant documents present and verified: yes Required blood products, implants, devices, and special equipment available: no Procedure Details: CMG with UPP/voiding pressures Pelvic Examination Performed?: No Pessary Performed?: No Was bladder voided as part of this procedure?: Yes Fluoro Time (total seconds): 53 Fluoro Dose (Gy-cm2): 55.9 Position: Sitting Outcome: patient tolerated procedure well with no complications Post-procedure interventions: post-procedure instructions given Kaylene Fernandez APRN UROLOGY ORDERABLES Final R esult documented in this encounter Visit Diagnoses Diagnosis Neurogenic bladder- Primary Neurogenic bladder, NOS Incomplete emptying of bladder Incomplete bladder emptying Sacral nerve stimulator present documented in this encounter Administered Medications Inactive Administered Medications - up to 3 most recent administrations Medication Order MAR Action Action Date Dose Rate Site iothalamate meglumine (Cysto Conray) 17.2 % urethral solution solution 250 mL 250 mL, Urethral, Once in imaging, 1 dose, Starting on [place] 06/01/25 at 1409, Until [place] 06/01/25 at 1409, Routine, IntraprocedureIndications:Incomple te emptying of bladder,Neurogenic bladder Given 06/01/2025 2:09 PM EDT 145 mL documented in this encounter Additional Health Concerns Assessment Noted Time A fall risk assessment has been complete d for the patient 06/01/2025 9:41 AM EDT A Body Mass Index follow-up plan has been documented for the patient 06/06/2025 10:40 PM EDT documented as of this encounter Care Teams Crime Scene Technician Relationship Specialty Start Date End Date Lindsey Guardado APRN [address] [place] [address] PCP - General 06/01/25 Magalis Reid APRN, MARCO [address] [place] [id number] Nurse Practitioner Urology 06/01/25 Guru Ma [address] [place] [address] [id number] [facility] [id number] Referring Physician Obstetrics and Gynecology 09/02/21 documented as of this encounter
--- NOTE | 2025-06-12 12:02 | EXP.PAIN.SOA ---
[facility] Disclaimer: The information contained in this section may have been updated after the patient was seen, as this information can be updated by other users. Medical History (Updated 05/29/25 @ 11:11 by Nicole Jarrett APRN) Knee arthropathy Hip replacement planned Pacemaker Pain of intrathecal infusion pump pocket after insertion Seizure disorder Sleep apnea Seizure HLD (hyperlipidemia) HTN (hypertension) Hx of cardiac pacemaker Diabetes mellitus, type 2 Anxiety Depression Asthma Congestive heart failure Dizziness Surgical History History of cholecystectomy History of spinal fusion History of hysterectomy History of right hip replacement History of left hip replacement History of knee replacement Family History Other Family history of diabetes mellitus type II Family history of hyperlipidemia Family history of hypertension Family history of myocardial infarction Social History (Updated 05/26/25 @ 10:22 by Kiara Green, DANIELA) Smoking Status: Current every day smoker (1PPD.) tobacco type: cigarettes packs per day: 1 years smoked: 30 alcohol intake: never substance use type: denies use current occupational status: other Travel in the last 8 weeks?: None household members: none housing: house lives independently: Yes marital status: single education level: high school current occupational exposures/hazards: No caffeine: Yes special lai needs: No agree to transfusion: No do you feel safe at home: Yes victim of physical abuse: No victim of emotional abuse: No victim of sexual abuse: No would you like helpful sources: No Have you lived/traveled outside US in past 30 days?: No Contact w/someone who lives/traveled outside US past 30 days?: No Exposure to someone with infectious disease in past 14 days?: No Do you have a fever (greater than 100.4 F or 38 C)?: No Have you tested positive for COVID-19?: No Exposed to someone with COVID-19 in past 14 days?: No Do you have a sore throat?: No Do you have a cough?: No Do you have any weakness?: No Do you have any diarrhea?: No Are you experiencing any unusual bleeding?: No Do you have any muscle aches/pain?: No Do you have any abdominal pain?: No Are you experiencing loss of taste or smell?: No PM Subjective & Objective Subjective Subjective:: Patient is a pleasant 55-year-old female who presents today for follow-up of her psychological evaluation. Patient rates her pain today a 6 out of 10. She denies any new trauma or injury. Patient is still having the chronic low back pain that does go into her legs. Patient was scheduled for a epidural coming up tomorrow however she states that she ended up getting a letter in the mail stating this injection was denied by insurance due to not having updated imaging. Patient does state that she thought that she had an updated MRI here recently of her lumbar spine done at [place]. She does state that Dr. Solis's office was the ones who originally ordered this and that that is what Dr. Piper looked at at her last visit with him who was stating there is no surgical intervention needed at this time. Dr. Piper was recommending conservative therapy. Patient does state that she would like to see about getting scheduled for the epidural as well as the stimulator trial. Patient does have chronic pain that does radiate down into her extremities. Her Husam has been reviewed and is appropriate. Review of Systems: General: No recent weight changes, no fever, no sleep disturbances Respiratory: No cough, no shortness of air, no recurring pulmonary infections Cardiovascular/peripheral vascular: No chest pain, no palpitations, no edema, no shortness of breath Gastrointestinal: No new onset incontinence, normal bowel movements reported Genitourinary: No new onset incontinence Musculoskeletal: Low back pain, leg numbness ting Psychiatric: [Normal mood/affect] Neurological: [Denies weakness in extremities], [denies balance issues] Pain at rest (0-10 scale): 6 Objective Objective:: Physical Exam: General: Alert and oriented x3, no acute distress, pleasant and cooperative Lungs: Respirations even and unlabored, symmetrical chest expansion Eyes: PERRL Musculoskeletal: Flexion and extension of lumbar [spine] somewhat guarded secondary to pain, [antalgic gait noted] Neurological: Speech clear, no gross sensory deficit Has patient had previous pain injection?: No Conservative treatment options previously tried: Home exercise plan Length of treatment: Longer than 12 weeks Meds Home Medications and Allergies Home Medications ?Medication ?Instructions ?Recorded ?Confirmed ?Type aripiprazole 10 mg tablet 5 mg PO DAILY Depression 05/25/21 06/12/25 History atorvastatin 80 mg tablet 80 mg PO HS Cholesterol 05/25/21 06/12/25 History carvedilol 6.25 mg tablet 12.5 mg PO BID blood pressure 05/25/21 06/12/25 History ergocalciferol (vitamin D2) 1,250 1 tab PO WEEKLY Supplement 05/25/21 06/12/25 History mcg (50,000 unit) capsule hydroxyzine pamoate 50 mg capsule 50 mg PO TID PRN Anxiety 05/25/21 06/12/25 History lamotrigine 25 mg tablet 25 mg PO TID seizures 05/25/21 06/12/25 History levothyroxine 88 mcg capsule 88 mcg PO DAILY . 05/25/21 06/12/25 History pantoprazole 40 mg tablet,delayed 40 mg PO DAILY GERD 05/25/21 06/12/25 History release promethazine 25 mg tablet 25 mg PO Q6H PRN Nausea And 05/25/21 06/12/25 History Vomiting ropinirole 0.25 mg tablet 2 mg PO HS RLS 05/25/21 06/12/25 History venlafaxine 75 mg capsule,extended 225 mg PO DAILY Depression 05/25/21 06/12/25 History release 24 hr zonisamide 100 mg capsule 100 mg PO TID migraines/seizures 05/25/21 06/12/25 History albuterol sulfate 90 mcg/actuation 2 inh INHALATION DIRECTED . 05/27/21 06/12/25 History aerosol inhaler (ProAir HFA) cyanocobalamin (vitamin B-12) 1,000 mcg IM MONTHLY suppliment 05/27/21 06/12/25 History 1,000 mcg/mL injection solution spironolactone 25 mg tablet 25 mg PO DAILY Fluid 06/07/21 06/12/25 History mirtazapine 15 mg tablet (Remeron) 15 mg PO HS sleep 10/21/22 06/12/25 History cyclobenzaprine 10 mg tablet 10 mg PO BID PRN Muscle Spasm #20 11/11/22 06/12/25 Rx tabs tizanidine 4 mg tablet (Zanaflex) 4 mg PO TID MUSCLES 12/12/22 06/12/25 History minocycline 100 mg capsule 100 mg PO DAILY Skin condition 02/13/23 06/12/25 History morphine (PF) 1 mg/mL injection 0.1 mg continuous intrathecal 02/20/23 06/12/25 History solution infusion CONT Pain baclofen 10 mg tablet 10 mg PO QID Pain #120 tabs 08/10/24 06/12/25 Rx prednisone 20 mg tablet 20 mg PO BID #10 tabs 02/27/25 06/12/25 Rx methocarbamol 500 mg tablet See Rx Instructions .Route 05/26/25 06/12/25 Rx .COMPLEX #240 tabs New Prescriptions to Start Prescriptions: Allergies Allergy/AdvReac Type Severity Reaction Status Date / Time meclizine Allergy Intermediate Unknown Verified 01/27/25 09:19 allergy reaction doxycycline Allergy Mild Vomiting Verified 01/27/25 09:19 diphenhydramine (From Allergy Unknown Unknown Verified 01/27/25 09:19 BENADRYL) allergy reaction Tetanus Vaccines and Toxoid Allergy Unknown Unknown Verified 01/27/25 09:19 (TETANUS VACCINES & TOXOID) allergy reaction adhesive tape Allergy Rash Verified 01/27/25 09:19 Assessment and Plan *Assessment and plan (1) Lumbar radiculopathy: Status: Acute Category: Medical Code(s): M54.16 - Radiculopathy, lumbar region (2) Degenerative joint disease (DJD) of lumbar spine: Status: Acute Qualifiers: Spinal osteoarthritis complication: with radiculopathy Qualified Code(s): M47.26 - Other spondylosis with radiculopathy, lumbar region Category: Medical Code(s): M47.816 - Spondylosis without myelopathy or radiculopathy, lumbar region Plan Patient is experiencing worsening pain in her low back with numbness and tingling into her lower extremities. Patient did have limited range of motion of her lumbar spine with a positive leg raise. I did discuss with patient that I do believe they would benefit from a lumbar epidural steroid injection. Risk and benefits were discussed with patient and the patient would like to proceed forward with this plan of care. Patient is not on any blood thinners. Patient has tried and failed conservative therapy including oral medications, heat and ice, topicals and continued at home stretching exercise for longer than 12 weeks between injections. Patient has had chronic back pain for longer than 6 months. Patient was previously scheduled for an LESI L5-S1 under fluoroscopy. I do believe she would still very much benefit from this injection. Patient has not had any epidurals in the last 2 years for her low back pain. Patient documentation from insurance was that she had not had any updated imaging. We are in the process of contacting [facility] and Dr. Solis's office to get a copy of the most recent imaging that was ordered by this provider so we can resubmit for this injection. We will schedule the patient for an LESI L5-S1 under fluoroscopy. I did also discuss with the patient regarding the spinal cord stimulator trial. Patient has been evaluated by neurosurgery and was told that she is not a surgical candidate currently. Patient has also continued conservative therapy including oral medications, heat and ice, topicals, at home stretching exercise for longer than 12 weeks that was physician guided. Patient has completed her psychological evaluation and was deemed an appropriate candidate for the spinal cord stimulator trial. Patient has also done injection therapy. Patient will be submitted for the spinal cord stimulator trial under fluoroscopy. Patient has been instructed to contact the clinic with any concerns before the next appointment. Dr. Banerjee has reviewed this note and agrees with this plan of care. This note was dictated using voice recognition software and make contain errors or omissions. All injections are used with Lidocaine, Bupivacaine and dexamethasone. Occasionally urine drug screen is needed to verify patient's compliance with our office pain contract. This is ordered based off specific treatments related to chronic pain with the potential to abuse certain medications.
--- OUTSIDE RECORDS SUMMARY | 2025-06-12 12:07 | XMS_ITS | Encounter Summary ---
[facility] Address [address] [place] [id number] Care Team Providers Care Therapist Phys Name Role Phone System, Provider Not In Primary Care Provider Un available Reason for Visit * Reason Comments Med Refill Encounter Details Date Type Department Care Team (Late st Contact Info) Description 05/12/[address] [facility] [address] [place] [address] [place] [phone] Ronaldo Kong MD [address] [place] [address] [place] [phone] Primary hypertension; Chronic diastolic (congestive) heart failure [...] Description 11/13/2025 11:00 AM EST Office Visit [facility] [address] [phone] Daphney Hall MD [address] [address] 11/13/2025 11:00 AM EST Clinical Support No Requirements [facility] [address] [phone] documented as of this encounter Visit Diagnoses Diagnosis Primary hypertension Unspecified essential hypertension Chronic diastolic (congestive) heart failure documented in this encounter Additional Health Concerns Assessment Noted Time PHQ-2 Depression Total Score: 3 07/18/20 24 11:28 AM EDT documented as of this encounter Care Teams Therapist Phys Relationship Specialty Start Date End Date System, [place] [address] PCP - General 02/14/25 documented as of this encounter
--- OUTSIDE RECORDS SUMMARY | 2025-06-12 12:07 | XMS_ITS | Encounter Summary ---
[facility] Address [address] [place] [address] Care Team Providers Care Debarker Operator Name Role Phone System, Provider Not [...] or training? Not on file Preferred Language Marshallese 03/03/2024 PHQ-2 Answer Date Recorded Retired PHQ-9: [...] Daphney Hall MD [address] [place] [address] 11/13/2025 11:00 AM EST Clinical Support No Requirements [facility] [address] [phone] documented as of this encounter Visit Diagnoses Not on filedocumented in this encounter Additional Health Concerns Assessment Noted Time PHQ-2 Depression Total Score: 3 07/18/20 24 11:28 AM EDT documented as of this encounter Care Teams Debarker Operator Relationship Specialty Start Date End Date System, [place] [address] PCP - General 02/14/25 documented as of this encounter
--- OUTSIDE RECORDS SUMMARY | 2025-06-12 12:07 | XMS_ITS | Encounter Summary ---
[facility] Address [address] [place] [phone] Care Team Providers Care Drywall Taper Name Role Phone System, Provider Not In Primary Care Provider Un available Reason for Visit * Reason Comments Med Refill Encounter Details Date Type Department Care Team (Late st Contact Info) Description 05/12/2025 Refill [facility] [address] [place] [address] [place] [phone] Ronaldo Kong MD [address] [place] [address] [place] [id number] Social History Tobacco Use Types Packs/Day Years [...] or training? Not on file Preferred Language Greenlandic 03/03/2024 PHQ-2 Answer Date Recorded Retired PHQ-9: [...] Description 11/13/2025 11:00 AM EST Office Visit [facility] [address] [phone] Daphney Hall MD [address] [address] 11/13/2025 11:00 AM EST Clinical Support No Requirements [facility] [address] [phone] documented as of this encounter Visit Diagnoses Not on filedocumented in this encounter Additional Health Concerns Assessment Noted Time PHQ-2 Depression Total Score: 3 07/18/20 24 11:28 AM EDT documented as of this encounter Care Teams Drywall Taper Relationship Specialty Start Date End Date System, [place] [address] PCP - General 02/14/25 documented as of this encounter
--- OUTSIDE RECORDS SUMMARY | 2025-06-12 12:07 | XMS_ITS | Encounter Summary ---
[facility] Address [address] [place] [address] Care Team Providers Care Dietary Cook Name Role Phone System, Provider Not In Primary Care Provider Un available Encounter Details Date Type Department Care Team (Late st Contact Info) Description 05/16/2025 Patient rounding ([facility] only) [facility] [address] [place] [phone] Daphney Hall MD [address] [place] [address] Social History Tobacco Use Types Packs/Day [...] or training? Not on file Preferred Language Austrian 03/03/2024 PHQ-2 Answer Date Recorded Retired PHQ-9: [...] is Saima Dial and I am the Agricultural Consultant for [facility]. I would like to thank you for [...] your first visit to us as a [facility] facility? In the next few days, [...] [facility] [address] [phone] Daphney Hall MD [address] [address] 11/13/2025 11:00 AM EST Clinical Support No Requirements [facility] [address] [phone] documented as of this encounter Visit Diagnoses Not on filedocumented in this encounter Additional Health Concerns Assessment Noted Time PHQ-2 Depression Total Score: 3 07/18/20 24 11:28 AM EDT documented as of this encounter Care Teams Dietary Cook Relationship Specialty Start Date End Date System, [place] [address] PCP - General 02/14/25 documented as of this encounter
--- OUTSIDE RECORDS SUMMARY | 2025-06-12 12:07 | XMS_ITS | Encounter Summary ---
[facility] Address [address] [place] [phone] Care Team Providers Care Forms Designer Name Role Phone System, Provider Not In Primary Care Provider Un available Reason for Visit * Reason Comments Med Refill Encounter Details Date Type Department Care Team (Late st Contact Info) Description 04/19/2025 Refill [facility] [address] [place] [address] [place] [phone] Ronaldo Kong MD [address] [place] [address] [place] [address] Social History Tobacco Use Types Packs/Day Years [...] documented as of this encounter Care Teams Forms Designer Relationship Specialty Start Date End Date System, [place] [address] PCP - General 02/14/25 documented as of this encounter
--- OUTSIDE RECORDS SUMMARY | 2025-06-12 12:08 | XMS_ITS | Encounter Summary ---
[facility] Address [address] [place] [phone] Care Team Providers Care Student Records Specialist Name Role Phone System, Provider Not In Primary Care Provider Un available Reason for Visit * Reason Comments Med Refill Encounter Details Date Type Department Care Team (Late st Contact Info) Description 04/14/2025 Refill [facility] [address] [place] [address] [place] [phone] Ronaldo Kong MD [address] [place] [address] [place] [address] Social History Tobacco Use Types Packs/Day Years [...] or training? Not on file Preferred Language Beninese 03/03/2024 PHQ-2 Answer Date Recorded Retired PHQ-9: [...] 11:00 AM EST Office Visit [facility] [address] [phone] Daphney Hall MD [address] [address] 11/13/2025 11:00 AM EST Clinical Support No Requirements [facility] [address] [phone] documented as of this encounter Visit Diagnoses Not on filedocumented in this encounter Additional Health Concerns Assessment Noted Time PHQ-2 Depression Total Score: 3 07/18/20 24 11:28 AM EDT documented as of this encounter Care Teams Student Records Specialist Relationship Specialty Start Date End Date System, [place] [address] PCP - General 02/14/25 documented as of this encounter
--- OUTSIDE RECORDS SUMMARY | 2025-06-12 12:08 | XMS_ITS | Encounter Summary ---
[facility] Address [address] [place] [address] Care Team Providers Care Machine Tack Puller Name Role Phone System, Provider Not In Primary Care Provider Un available Encounter Details Date Type Department Care Team (Late st Contact Info) Description 03/08/2025 Results Follow-Up [facility] [address] [place] [phone] [...] or training? Not on file Preferred Language Filipino 03/03/2024 PHQ-2 Answer Date Recorded Retired PHQ-9: [...] Description 11/13/2025 11:00 AM EST Office Visit [facility] [address] [phone] Daphney Hall MD [address] [address] 11/13/2025 11:00 AM EST Clinical Support No Requirements [facility] [address] [phone] documented as of this encounter Visit Diagnoses Not on filedocumented in this encounter Additional Health Concerns Assessment Noted Time PHQ-2 Depression Total Score: 3 07/18/20 24 11:28 AM EDT documented as of this encounter Care Teams Machine Tack Puller Relationship Specialty Start Date End Date System, [place] [address] PCP - General 02/14/25 documented as of this encounter
--- OUTSIDE RECORDS SUMMARY | 2025-06-12 12:08 | XMS_ITS | Encounter Summary ---
[facility] [address] [place] [phone] Care Team Providers Care [employer] Insurance Claim Examiner Name Role Phone System, Provider Not In Primary Care Provider Un available Reason for Visit * Reason Comments Med Refill Encounter Details Date Type Department Care Team (Late st Contact Info) Description 04/14/2025 Refill [facility] [address] [...] or training? Not on file Preferred Language Bahraini 03/03/2024 PHQ-2 Answer Date Recorded Retired PHQ-9: [...] documented as of this encounter Care Teams [employer] Insurance Claim Examiner Relationship Specialty Start Date End Date System, [place] [address] PCP - General 02/14/25 documented as of this encounter
--- OUTSIDE RECORDS SUMMARY | 2025-06-12 12:08 | XMS_ITS | Patient Health Record ---
Author Organization [facility] . 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 Problem Type 2 diabetes mellitus (62513962) Type 2 diabetes mellitus (E11.9) Active confirmed Problem Hypertension (14978541) HTN (hypertension) (I10) Active confirmed Problem Morbid obesity (601634150) Morbid obesity (E66.01) Active confirmed Problem Obstructive sleep apnea syndrome (35292582) BRENDA (obstructive sleep apnea) (G47.33) Active confirmed Problem Obese (160771952) Obese (E66.9) Active confirmed Problem Brain tumor (045350444) Brain tumor (D49.6) Active confirmed Problem Chronic kidney disease stage 2 (558280367) Chronic kidney disease (CKD) stage G2/A1, mildly decreased glomerular filtration rate (GFR) between 60-89 mL/min/1.73 square meter and albuminuria creatinine ratio less than 30 mg/g (N18.2) Active confirmed Problem Obstructive sleep apnea syndrome (49298371) BRENDA (obstructive sleep apnea) (G47.33) Active confirmed [...] Michael [employer] [place] ([place] [address] [address] [place] [address] [id number] Frannie Nuñez Self - patient is the insured Medical (General) History Medical History History ICD Code Anemia Avitaminosis B 12 deficiency Carotid artery stenosis CHF 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
--- OUTSIDE RECORDS SUMMARY | 2025-06-12 12:08 | XMS_ITS | Encounter Summary ---
Author Organization [facility] Address [address] [place] [address] Care Team Providers Care Phototypesetting Equipment Monitor Name Role Phone Ronaldo Kong MD Primary Care Provider [phone] Encounter Details Date Type Department Care Team (Latest Contact Info) Description 05/25/2025 Travel Social History Tobacco Use Types Packs/Day [...] EDT Appointment [facility] [address] [place] [address] 01/05/2026 11:00 AM EDT Clinical Support [place] [facility] [address] [place] [address] 01/05/2026 12:20 PM EDT Office Visit [facility] [address] [place] [address] Kaylene Fernandez, CORPORATE HUMAN RESOURCES MANAGER [address] [facility] [address] [place] [address] documented as of this encounter Visit Diagnoses Not on filedocumented in this encounter Additional Health Concerns Assessment Noted Time A fall risk assessment has been complete d for the patient 10/02/2023 1:33 PM EST A Body Mass Index follow-up plan has been documented for the patient 11/14/2024 1:45 PM EST documented as of this encounter Care Teams Phototypesetting Equipment Monitor Relationship Specialty Start Date End Date Ronaldo Kong MD [address] [place] [address] PCP - General 03/01/21 05/31/25 Guru Ma [address] [place] [address] [id number] [facility] [id number] Referring Physician Obstetrics and Gynecology 09/02/21 documented as of this encounter
--- OUTSIDE RECORDS SUMMARY | 2025-06-12 12:09 | XMS_ITS | Encounter Summary ---
Author Organization [facility] Address [address] [place] [address] Care Team Providers Care Citrix Engineer Name Role Phone Debby Lindsey NELSON Primary Care Provider [phone] Magalis Reid APRN, DNP Unavailable [phone] Encounter Details Date Type Department Care Team (Latest Contact Info) Description 06/01/2025 Travel Social History Tobacco Use Types Packs/Day [...] EDT Appointment PAV A Radiology [address] [place] [address] 01/05/2026 11:00 AM EDT Clinical Support [facility] [address] [address] 01/05/2026 12:20 PM EDT Office Visit [facility] Urology [address] [address] Kaylene Fernandez APRN [address] [place] [address] documented as of this encounter Visit Diagnoses Not on filedocumented in this encounter Additional Health Concerns Assessment Noted Time A fall risk assessment has been complete d for the patient 06/01/2025 9:41 AM EDT A Body Mass Index follow-up plan has been documented for the patient 06/06/2025 10:40 PM EDT documented as of this encounter Care Teams Citrix Engineer Relationship Specialty Start Date End Date Lindsey Guardado APRN [address] [place] [address] PCP - General 06/01/25 Magalis Reid APRN, MARCO [address] [facility] [address] [place] [address] Nurse Practitioner Urology 06/01/25 Guru Ma [address] [place] [address] [id number] [facility] [address] Referring Physician Obstetrics and Gynecology 09/02/21 documented as of this encounter
--- OUTSIDE RECORDS SUMMARY | 2025-06-12 12:09 | XMS_ITS | Clinical Summary ---
[facility] Organization [facility] Address [address] [place] [address] Care Team Providers Care Rn Flight Name Role Phone System, Provider Not In [...] Every 30 (Thirty) Days. Last dose 07/25/23 022 Active Nurtec 75 MG dispersible tablet Take 75 tablets by mouth As Needed. As needed Active cetirizine (zyrTEC) 10 MG tablet TAKE ONE TABLET BY MOUTH ONCE A DAY 30 tablet 3 024 Active lamoTRIgine (LaMICtal) 150 MG tablet Take 1 tablet by mouth Daily. 2 tablets once daily Active nystatin (MYCOSTATIN) 673228 UNIT/GM powderIndications :Candidal intertrigo Apply topically to the appropriate area as directed 3 (Three) Times a Day. 60 g 1 024 Active fluticasone (FLONASE) 50 MCG/ACT nasal spray USE 2 SPRAYS IN EACH NOSTRIL ONCE A DAY NEEDED FOR ALLERGIES 16 g 3 024 Active albuterol sulfate HFA 108 (90 Base) MCG/ACT inhaler Active Trelegy Ellipta 100-62.5-25 MCG/ACT inhaler Active QUEtiapine (SEROquel) 50 MG tablet Active rOPINIRole (REQUIP) 2 MG tablet Take 2 tablets by mouth every night at bedtime. Active rosuvastatin (CRESTOR) 20 MG tablet Take 1 tablet by mouth Daily. Active aspirin 81 MG EC tablet Take 1 tablet by mouth Daily. Active Continuous Glucose Sensor (Dexcom G6 Sensor) See Admin Instructions. 025 Active dexlansoprazole (DEXILANT) 60 MG capsule TAKE ONE CAPSULE BY MOUTH ONCE a DAY Active nicotine polacrilex (COMMIT) 4 MG lozenge DISSOLVE 1 lozenge BY MOUTH EVERY 1 TO 2 HOURS DO not exceed more THAN 20 PER DAY Active carvedilol (COREG) 12.5 MG tablet TAKE ONE TABLET BY MOUTH 2 TIMES A DAY 60 tablet 5 025 Active Continuous Glucose Transmitter (Dexcom G6 Transmitter) [facility] See Admin Instructions. Active FREESTYLE LITE test strip Active Linzess 145 MCG capsule capsule TAKE ONE CAPSULE BY MOUTH ONCE A DAY 30 MINUTES BEFORE MEAL Active desvenlafaxine (PRISTIQ) 50 MG 24 hr tablet Take 1 tablet by mouth Daily. 025 Active ondansetron ODT (ZOFRAN-ODT) 4 MG disintegrating tablet DISSOLVE 2 TABLETS ON THE TONGUE 2 TIMES A DAY NEEDED 025 Active furosemide (LASIX) 20 MG tabletIndications :Chronic diastolic (congestive) heart failure TAKE ONE TABLET BY MOUTH 2 TIMES A DAY. TAKE ONE TABLET NEEDED FOR AGRESSIVE EDEMA OR WEIGHT GAIN GREATER THAN 2 POUNDS OVER 24 HOURS 60 tablet 2 025 Active cholecalciferol (VITAMIN D3) 1.25 MG (84949 UT) capsule Take 1 capsule by mouth Every 7 (Seven) Days. 023 2024 Discontinued(* Therapy completed) folic acid (FOLVITE) 1 MG tabletIndications :Folic acid deficiency Take 1 tablet by mouth Daily. 90 tablet 3 024 2024 Discontinued(* Therapy completed) Syringe/Needle, Disp, (B-D 3CC LUER-ARSALAN SYR 25GX1 ) 25G X 1 3 ML misc USE WITH B12 INJECTION 1 each 2 024 2024 Discontinued(* Therapy completed) spironolactone (ALDACTONE) 50 MG tabletIndications :Primary hypertension,Power Transformer Inspector chandni diastolic (congestive) heart failure Take 1 tablet by mouth Daily. 90 tablet 3 024 2024 Discontinued(* Therapy completed) ondansetron ODT (ZOFRAN-ODT) [address] 1 tablet on the tongue Every 8 (Eight) Hours As Needed for Nausea. 20 tablet 024 2024 Discontinued(* Therapy completed) busPIRone (BUSPAR) 5 MG tablet Take 1 tablet by mouth 2 (Two) Times a Day. 2024 Discontinued(* Therapy completed) famotidine (PEPCID) 20 MG tablet Take 1 tablet by mouth 2 (Two) Times a Day. 2024 Discontinued(* Therapy completed) furosemide (LASIX) 20 MG tabletIndications :Chronic diastolic (congestive) heart failure TAKE ONE TABLET BY MOUTH 2 TIMES A DAY. TAKE ONE TABLET NEEDED FOR AGRESSIVE EDEMA OR WEIGHT GAIN GREATER THAN 2 POUNDS OVER 24 HOURS 60 tablet 025 2024 Discontinued Semaglutide,0.25 or 0.5MG/DOS, (OZEMPIC) 2 MG/1.5ML solution pen-injector Inject 0.25 mg under the skin into the appropriate area as directed 1 (One) Time Per Week. 025 2024 Discontinued(* Therapy completed) vitamin B-12 (CYANOCOBALAMIN) 1000 MCG tablet TAKE 1 TABLET BY MOUTH ONCE A DAY BEFORE meals 04/29/2 025 07/29/ 2025 Discontinued(* Therapy completed) desvenlafaxine (PRISTIQ) 100 MG 24 hr tablet Take 1 tablet by mouth Daily. 025 2024 Discontinued(* Therapy completed) Motegrity 2 MG tablet Take 1 tablet by mouth Daily. 025 2024 Discontinued(* Therapy completed) Active Problems Problem Noted Date Diagnosed Date [...] complaints of nausea. 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 Hall and feels that was the problem. Bactrim was per Dr. Hall after Right TKA, concerns for infection at [...] previous gastroenterology referral, Dr. Wei Diamond in [place]. Denies any associated vomiting, diarrhea or abdominal pain with her nausea. States she is lost 30 pounds in the last 2 months due to her nausea and lack of appetite -Patient Zofran increased to 8 mg every 6 hours as needed -Per a prior discussion with her and Dr. Kong referral to Dr. Wei Diamond in [place] placed today. She is going to be [...] to undergo anticipated right TKA by Dr. Xavier Hall of orthopedic surgery, definitive date to be [...] to get cardiology clearance with Dr. Mary Hall in the near future. Primary osteoarthritis of right knee 03/24/2024 Assessment & Plan (03/24/2024 1:01 PM EDT): Advanced degenerative osteoarthritis of the right knee with secondary pain. Impending plan for right TKA under the surface of Dr. Xavier Hall of orthopedic surgery, definitive surgical date to be determined after full medical and cardiac clearance. Chronic pain of right knee 03/24/2024 Assessment & Plan (03/24/2024 1:01 PM EDT): Right knee pain secondary to advanced degenerative osteoarthritis of the right knee. Plan for definitive right TKA under the services of Dr. Xavier Hall of orthopedic surgery with surgical date to be determined after gets full medical and cardiac clearance. Acute kidney injury 03/24/2024 Overview (03/24/2024): Creatinine 0.99 with GFR 68 on 03/03/2024, creatinine 1.3 GFR 49 on 03/23/2024, likely secondary to excessive diuresis Assessment & Plan (03/24/2024 6:25 PM EDT): Patient had lab testing through [facility] ER yesterday having been diagnosed with UTI, [...] A1c of 7.6% during recent hospitalization at [facility], previously 6.8% in 03/2024. She had [...] most recently in 07/[address] Mary Hall of cardiology with no acute related concerns. [...] Update yearly screening low-dose chest CT with 58-yffi-zpmh history of smoking ongoing. Advised regarding need for smoking cessation for health risk reduction. BRENDA treated with BiPAP 11/30/2023 Assessment & Plan (01/17/2025 11:04 AM EDT): She is currently on BiPAP therapy and is using a DeepField BiPAP device. She feels like it is [...] treating her BRENDA, followed by Dr. Mary Hall of cardiology/sleep medicine. Her BRENDA does increase her risk of postsurgical extubation and will need to be monitored closely. Assessment & Plan (11/30/2023 6:10 PM EST): Indicates compliant with her CPAP machine followed by Dr. Mary Hall of cardiology/sleep medicine. Encounter for screening mamm [...] A1c of 7.6% during recent hospitalization at [facility], previously 6.8% in 03/2024. She had [...] the pacemaker. Keep follow-up with Dr. Mary Hall of cardiology. Assessment & Plan (03/11/2024 6:06 [...] EST): No evidence of coronary disease per [facility] in 12/2022, continue risk factor modification. History [...] drinking soda. She has not utilized any arcy-xnp-gvlvcws medications such as AZO for her symptoms. [...] a right total knee replacement with Dr. Xavier Hall. This surgery is unscheduled at this time. [...] Assessment & Plan (11/30/2023 6:11 PM EST): 94-bfia-nalo smoker at 1 pack/day. Strongly advised need [...] study. Proceed with left heart cath at [facility] Assessment & Plan (12/18/2022 5:28 [...] had serial troponins to rule out an LA. Today she reports that she has had [...] and presented to the emergency room at [facility] about 1 week ago. She had an ER visit for chest pain. Her chest pain was a 10 out of 10 and radiating to her left neck and her left arm. At the emergency room she had serial troponins to rule out LA. She had a chest x-ray showing her [...] check. I have requested her labs from [facility]. She was given oral potassium [...] subsequently had pacemaker placed by Dr. Mary Hall in 07/2022, with recent interrogation per report of Dr. Mary Hall indicating less than 1% pacing. EKG from [...] subsequently had pacemaker placed by Dr. Mary Hall in 07/2022, with recent interrogation per report of Dr. Mary Hall indicating less than 1% pacing. Patient indicates Dr Hall indicated to her questioning the need for pacemaker placement despite she herself having placed the device. Patient consequently has voiced concerns about this conflicting information. She is requesting second opinion cardiology referral to Dr. Jerson Win in [place], and per her request we will make this referral. Assessment & Plan (11/30/2023 5:58 PM EST): Status post post pacemaker placement, EKG reviewed from 07/20/2023 at the office of Dr. Mary Hall with sinus rhythm rate 77, no acute [...] diastolic (congestive) heart failure 06/2022 Overview (11/30/2023): [facility] 12/2022 with normal coronary arteries Echocardiogram 07/21/2023: [...] trace dependent edema, during recent hospitalization at [facility] had switching her Jardiance 10 mg daily [...] EF 61 to 65% in 07/2023 with [facility] revealing normal coronary arteries in 12/2022. She does tend to have variable amounts of fluid retention, chronically taking Bumex 2 mg daily, recently having seen Dr. Mary Hall of cardiology who added metolazone 2.5 mg [...] 1:05 PM EDT): Status post hospitalization at [facility] in 04/2024 for suicidal ideation without plan, [...] ideation without plan, no HI, admitted to [facility] from 04/23 through 04/29/2024, discharged 4 [...] the Pristiq. She saw her mental health FINE ARTS TEACHER provider yesterday with a follow-up to be pursued in 1 month, and is scheduled to follow-up with her standard counselor at [facility] tomorrow. Assessment & Plan (02/23/2024 2:32 [...] moods reported. No SI/HI. Keep related to business system consultant follow- up. Dyspepsia 05/27/2022 Assessment & [...] having been discontinued during recent hospitalization at [facility] given acute kidney injury with subsequent [...] with PAP therapy, followed by Dr. Hall Assessment & Plan (12/31/2022 6:09 PM EDT): Good control and compliance with PAP therapy, will continue. Assessment & Plan (12/22/2022 8:37 AM EST): She has a known history of obstructive sleep apnea. Her original study was completed at [facility]. She is currently on a BiPAP therapy. Her download has been requested from [facility]. She reports that she is a faithful user of PAP therapy. She denies any excessive daytime sleepiness or napping. She now wishes to follow her sleep apnea at this clinic. Supply order is sent to the DME of her choice. I did receive her sleep study from [facility] this is a split study with a [...] 1 month. Keep follow-up with Dr. Mary Hall of cardiology. Assessment & Plan (02/23/2024 2:35 [...] Encounters Date Type Department Care Team Description 06/01/2025 Refill [facility]ARD[facility] [address] [facility] [address] [place] [address] Daphney Hall MD Med Refill 05/16/2025 11:00 AM EDT Office Visit [facility] [address] [address] Daphney Hall MD Other fatigue (Primary Dx); BRENDA treated with BiPAP; Pacemaker; Primary hypertension 05/16/2025 Patient rounding ([facility] only) [facility] [address] [address] Daphney Hall MD 05/16/2025 Travel 05/12/2025 Refill [facility] PRIMARY CARE [address] [place] [address] [address] [address] Ronaldo Kong MD 05/12/2025 Refill [facility] [address] [place] [address] [address] [place] [address] Ronaldo Kong MD Primary hypertension; Chronic diastolic (congestive) heart failure 05/07/2025 Refill [facility] [address] [place] [address] [place] [address] Ronaldo Kong MD Candidal intertrigo 05/04/2025 Refill [facility] [address] [place] [address] [place] [address] Ronaldo Kong MD Primary hypertension; Chronic diastolic (congestive) heart failure 05/04/2025 Refill [facility] [address] [place] [address] [place] [address] Ronaldo Kong MD 05/02/2025 Travel 04/19/2025 Refill [facility] [address] [address] Daphney Hall MD Med Refill 04/19/2025 Refill [facility] [address] [place] [address] [address] [address] Ronaldo Kong MD 04/14/2025 Refill [facility] [address] [address] Daphney Hall MD Med Refill 04/14/2025 Refill [facility] [address] [place] [address] [address] [address] Ronaldo Kong MD 04/05/2025 Refill [facility] [address] [address] Daphney Hall MD Med Refill 04/05/2025 Refill [facility] [address] [place] [address] [address] [address] Ronaldo Kong MD 04/04/2025 11:30 AM EDT Office Visit [facility] [address] [address] Dania Gray APRN Primary hypertension; Acute midline low back pain without sciatica 04/04/2025 Travel 03/30/2025 Telephone [facility] [address] [address] MD [address].WAESPE- CONCERN 03/16/2025 Refill [facility] [address] [address] Daphney Hall MD Med Refill 03/12/2025 Refill [facility] [address] [address] Daphney Hall MD Med Refill 03/12/2025 Refill [facility] [address] [address] Dania Gray APRN Med Refill from Last 3 Months Immunizations Immunization Administration Dates Next Due COVID-19 ([employer]) Purple Cap Monovalent 02/10/20 21,01/19/2021 Fluzone >6mos [...] or training? Not on file Preferred Language Swazi 03/03/2024 PHQ-2 Answer Date Recorded Retired PHQ-9: [...] Description 11/13/2025 11:00 AM EST Office Visit [facility] [address] [address] Daphney Hall MD [address] [place] [address] 11/13/2025 11:00 AM EST Clinical Support No Requirements [facility] [address] [address] Health Maintenance Due Date Last [...] 11/21/2024, 10/17/2024 Medical Devices Implanted Type Area Transportation Lead Device Identifier Shelf Expiration Date Model / Serial / Lot Hip Implant Knee Implant Hemost Abs Surgicel Pwdr 3gm - [id number] Implanted:Qty : 1 on 08/12/2022 by Daphney Hall MD at [facility] Implant [employer] DIV [employer] J AND J [id number] / / Kt Ld Stim Tined Axonics W/2/Sty Str/Crv - [id number] - [id number] Implanted:Qty : 1 on 08/13/2023 by Reta Lee MD at [facility] Implant N/A: Sacrum [employer] 02/05/2026 1201 / [id number] / Neurostm Sacral/Nerv Axonics Nonrechg W/Torq Wrench - [id number] - [id number] Implanted:Qty : 1 on 08/13/2023 by Reta Lee MD at [facility] Implant N/A: Sacrum [employer] 03/11/2024 [id number] / [id number] / Ld Pm Tendril Sts 6f58cm [id number] - [id number] - [id number] Implanted:Qty : 1 on 08/12/2022 by Daphney Hall MD at [facility] [employer] 03/18/[id number] / [id number] / Ld Pm Tendril Sts 6f52cm [id number] - [id number] - [id number] Implanted:Qty : 1 on 08/12/2022 by Daphney Hall MD at [facility] Lead [employer] 01/16/[id number] / [id number] / Gen Pm Assurity Mri Dr Foster [id number] - [id number] - [id number] Implanted:Qty : 1 on 08/12/2022 by Daphney Hall MD at [facility] Pacemaker [employer] 01/17/2024 [id number] / [id number] / Pain Pump Pain Pump Procedures Procedure Name Priority Date/Time Associated Diagnosis Comments REMOTE DEVICE CHECK 06/08/2025 2 :00 AM EDT SCANNED - PULMONARY RESULTS 05/15/2025 LIPID PANEL Routine 03/08/2025 Pure hypercholesterolemia POCT GLYCOSYLATED HEMOGLOBIN (HGB A1C) Routine 07/18/2024 [...] Maintenance Results * Pulmonary Results Scan (05/15/2025) Daphney Hall MD PFT ORDERABLES Final Result * Lipid Panel (03/08/2025) Blood us Daphney Hall MD LAB BLOOD ORDERABLES Final R esult Performing Organization Address City/State/[facility] Co de Phone Number [facility]
[address] [place] [address], * (ABNORMAL) POC Glycosylated Hemoglobin (Hb A1C) (07/18/2024 12:56 PM EDT) Hemoglobin A1C 6.3(A) 4.5 - 5.7 % [facility] Lot Number [id number] [facility] Expiration Date 04/07/2026 [facility] Blood 07/18/2024 12:5 6 PM EDT Ronaldo Kong MD POINT OF CARE TEST ORDERABLES Final Result [facility]
[address] [place] [address], [place] [phone] * MAMMO Scan (12/29/2023) Anatomical Region Laterality Modality Other us Ronaldo Kong MD CHART REVIEW TABS Final Res ult * SCANNED - COLONOSCOPY (03/04/2023) us Ronaldo Kong MD CHART REVIEW TABS Final Res ult * Hepatitis C Antibody (11/27/2022 2:35 PM EST) Hep C Virus Ab <0.1 0.0 - 0.9 s/co ratio [facility] Comment: Negative: < 0.8 Indeterminate: 0.8 - 0.9 Positive: > 0.9 HCV antibody alone does not differentiate between previous resolved infection and active infection. The CDC and current clinical guidelines recommend that a positive HCV antibody result be followed up with an HCV RNA test to support the diagnosis of acute HCV infection. [facility] offers Hepatitis C Virus (HCV) RNA, Diagnosis, VALE (312089) and Hepatitis C Virus (HCV) Antibody with reflex to Quantitative Real-time PCR (057581). Blood Structure of left upper limb / Unknown 11/27/2022 2:35 PM EST 11/27/2022 Comment:Blood Release to [facility] Narrative [facility] ([facility]) - 11/28/2022 10:07 AM EST Performed at: 01 - Lab[address] [id number] Housekeeping Supervisor: Walter Corona PhD, Phone: [phone] us Ronaldo Kong MD LAB BLOOD ORDERABLES Final Res ult [facility] ([facility]) [address] [place] [address], [place] [phone] [facility] [address] [place] [address], [place] [phone] from Last 3 Months or Most Recently Relevant to Health Maintenance Insurance [facility] Care Teams Rn Flight Relationship Specialty Start Date End Date System, [place] [address] PCP - General 02/14/25
--- OUTSIDE RECORDS SUMMARY | 2025-06-12 12:09 | XMS_ITS | Encounter Summary ---
[facility] Organization [facility] Address [address] [place] [address] Care Team Providers Care Process Architect Name Role Phone System, Provider Not In Primary Care Provider Un available Reason for Visit * Reason Comments Med Refill Encounter Details Date Type Department Care Team (Late st Contact Info) Description 06/01/2025 Refill [facility] C[facility] [address] [facility] [address] [place] [address] Daphney Hall MD [address] [place] [address] Med Refill Social History Tobacco [...] Description 11/13/2025 11:00 AM EST Office Visit [facility] [address] [phone] Daphney Hall MD [address] [place] [address] 11/13/2025 11:00 AM EST Clinical Support No Requirements [facility] [address] [address] documented as of this encounter Visit Diagnoses Diagnosis Chronic diastolic (congestive) heart failure documented in this encounter Additional Health Concerns Assessment Noted Time PHQ-2 Depression Total Score: 3 07/18/20 24 11:28 AM EDT documented as of this encounter Care Teams Process Architect Relationship Specialty Start Date End Date System, [place] [address] PCP - General 02/14/25 documented as of this encounter
--- OUTSIDE RECORDS SUMMARY | 2025-06-12 12:09 | XMS_ITS | Encounter Summary ---
[facility] Organization [facility] Address [address] [place] [id number] Care Team Providers Care Garbage Depot Worker Name Role Phone System, Provider Not In Primary Care Provider Un available Reason for Visit * Reason Comments Med Refill Encounter Details Date Type Department Care Team (Late st Contact Info) Description 05/04/2025 Refill [facility] [address] [place] [address] [place] [address] Ronaldo Kong MD [address] [place] [address] [place] [phone] Primary hypertension; Chronic diastolic (congestive) heart failure [...] or training? Not on file Preferred Language Togolese 03/03/2024 PHQ-2 Answer Date Recorded Retired PHQ-9: [...] documented as of this encounter Care Teams Garbage Depot Worker Relationship Specialty Start Date End Date System, [place] [address] PCP - General 02/14/25 documented as of this encounter
--- OUTSIDE RECORDS SUMMARY | 2025-06-12 12:09 | XMS_ITS | Encounter Summary ---
Author Organization [facility] Address [address] [place] [address] Care Team Providers Care Manager Pediatric Name Role Phone Debby Lindsey NELSON Primary Care Provider [phone] Magalis Reid APRN, DNP Unavailable [phone] Encounter Details Date Type Department Care Team (Late st Contact Info) Description 06/01/2025 Orders Only External Location [address] [place] [address] Provider, External Social History Tobacco Use Types [...] Department Care Team (Late Contact Info) Description 01/05/2026 9:15 AM EDT Appointment [facility] Radiology [address] [place] [address] 01/05/2026 11:00 AM EDT Clinical Support [place] [facility] [address] [place] [address] 01/05/2026 12:20 PM EDT Office Visit [facility] [address] [place] [address] Kaylene Fernandez APRN [address] [place] [address] documented as of this encounter Procedures Procedure Name Priority Date/Time Associated Diagnosis Comments POC ULTRASOUND 06/01/2025 documented in this encounter Results * POC Imaging (06/01/2025) Anatomical Region Laterality Modality Pelvis Other 06/01/2025 us External Provider IMG POINT OF CARE ULTRASOUND F inal Result documented in this encounter Visit Diagnoses Not on filedocumented in this encounter Additional Health Concerns Assessment Noted Time A fall risk assessment has been complete d for the patient 06/01/2025 9:41 AM EDT A Body Mass Index follow-up plan has been documented for the patient 06/06/2025 10:40 PM EDT documented as of this encounter Care Teams Manager Pediatric Relationship Specialty Start Date End Date Lindsey Guardado APRN [address] [place] [address] PCP - General 06/01/25 Magalis Reid APRN, DNP [address] [facility] [address] [place] [address] Nurse Practitioner Urology 06/01/25 Guru Ma [address] [place] [address] [address] [facility] [id number] Referring Physician Obstetrics and Gynecology 09/02/21 documented as of this encounter
--- OUTSIDE RECORDS SUMMARY | 2025-06-12 12:09 | XMS_ITS | Encounter Summary ---
Author Organization [facility] Address [address] [place] [id number] Care Team Providers Care Line Fixer Name Role Phone System, Provider Not In Primary Care Provider Un available Reason for Visit * Reason Comments Med Refill Encounter Details Date Type Department Care Team (Late st Contact Info) Description 05/04/2025 Refill [facility] [address] [place] [address] [place] [address] Ronaldo Kong MD [address] [place] [address] [place] [address] Social History Tobacco Use Types Packs/Day Years [...] Not on file Preferred Language Citizen Of [place] 03/03/2024 PHQ-2 Answer Date Recorded Retired PHQ-9: [...] documented as of this encounter Care Teams Line Fixer Relationship Specialty Start Date End Date System, [place] [address] PCP - General 02/14/25 documented as of this encounter
--- OUTSIDE RECORDS SUMMARY | 2025-06-12 12:09 | XMS_ITS | Encounter Summary ---
Author Organization [facility] Address [address] [place] [id number] Care Team Providers Care Non Profit Director Name Role Phone System, Provider Not In Primary Care Provider Un available Reason for Visit * Reason Comments Med Refill Encounter Details Date Type Department Care Team (Late st Contact Info) Description 05/07/2025 Refill [facility] PRIMARY CARE [address] [place] [address] [place] [address] Ronaldo Kong MD [address] [place] [address] [place] [address] Candidal intertrigo Social History Tobacco Use Types [...] or training? Not on file Preferred Language Faroese 03/03/2024 PHQ-2 Answer Date Recorded Retired PHQ-9: [...] Description 11/13/2025 11:00 AM EST Office Visit [facility] CARDIOLOGY [address] [address] Daphney Hall MD [address] [address] 11/13/2025 11:00 AM EST Clinical Support No Requirements [facility] [address] [address] documented as of this encounter Visit Diagnoses Diagnosis Candidal intertrigo Candidiasis of skin and nails documented in this encounter Additional Health Concerns Assessment Noted Time PHQ-2 Depression Total Score: 3 07/18/20 24 11:28 AM EDT documented as of this encounter Care Teams Non Profit Director Relationship Specialty Start Date End Date System, [place] [address] PCP - General 02/14/25 documented as of this encounter
--- OUTSIDE RECORDS SUMMARY | 2025-06-12 12:09 | XMS_ITS | Encounter Summary ---
Author Organization [facility] Address [address] [place] [id number] Care Team Providers Care Animal Cruelty Investigator Name Role Phone System, Provider Not In Primary Care Provider Un available Reason for Visit * Reason Comments Med Refill Encounter Details Date Type Department Care Team (Late st Contact Info) Description 04/19/2025 Refill [facility] CARDIOLOGY [address] [place] [address] Daphney Hall MD [address] [place] [address] Med Refill Social History Tobacco Use [...] or training? Not on file Preferred Language Samoan 03/03/2024 PHQ-2 Answer Date Recorded Retired PHQ-9: [...] Patient is no longer on Jardiance. Call [facility], Spoke to Cara. Asked her to remove from patient profile. documented in this encounter Plan of Treatment Upcoming Encounters Date Type Department Care Team (Late st Contact Info) Description 11/13/2025 11:00 AM EST Office Visit [facility] CARDIOLOG[facility] [address] [address] Daphney Hall MD [address] [address] 11/13/2025 11:00 AM EST Clinical Support No Requirements [facility] [address] [address] documented as of this encounter Visit Diagnoses Not on filedocumented in this encounter Additional Health Concerns Assessment Noted Time PHQ-2 Depression Total Score: 3 07/18/20 24 11:28 AM EDT documented as of this encounter Care Teams Animal Cruelty Investigator Relationship Specialty Start Date End Date System, [place] [address] PCP - General 02/14/25 documented as of this encounter
--- OUTSIDE RECORDS SUMMARY | 2025-06-12 12:09 | XMS_ITS | Encounter Summary ---
[facility] Organization [facility] Address [address] [place] [address] Care Team Providers Care Picking Belt Operator Name Role Phone System, Provider Not [...] or training? Not on file Preferred Language Belgian 03/03/2024 PHQ-2 Answer Date Recorded Retired PHQ-9: [...] Description 11/13/2025 11:00 AM EST Office Visit [facility] CARDIOLOGY [address] [address] Daphney Hall MD [address] [place] [address] 11/13/2025 11:00 AM EST Clinical Support No Requirements [facility] CARDIOLOG[facility] [address] [address] documented as of this encounter Visit Diagnoses Not on filedocumented in this encounter Additional Health Concerns Assessment Noted Time PHQ-2 Depression Total Score: 3 07/18/20 24 11:28 AM EDT documented as of this encounter Care Teams Picking Belt Operator Relationship Specialty Start Date End Date System, [place] [address] PCP - General 02/14/25 documented as of this encounter
--- OUTSIDE RECORDS SUMMARY | 2025-06-12 12:09 | XMS_ITS | Clinical Summary ---
Author Organization [facility] Address [address] [place] [address] Care Team Providers Care Industrial Maintenance Electrician Name Role Phone DebbyLindsey OMAR Primary Care Provider [phone] Magalis Reid APRN, DNP Unavailable [phone] Allergies Active Allergy Reactions Criticality Noted Date Comments Diphenhydramine Hives High 10/01/2010 Diphtheria Toxoid Rash Low 05/26/2022 Doxycycline Nausea Low 01/28/2023 Meclizine Rash Low 08/12/2022 Metformin Anaphylaxis High 06/01/2025 Other Dermatitis Low 12/24/2021 Tape adhesive, steri-strips Sulfa Drugs Nausea High 06/01/2025 Sulfamethoxazole-Trimetho prim Nausea Low 07/13/2024 Tetanus Immune Globulin Unknown - Patien t states they do not know rxn details Low 09/24/2022 Other reaction(s): Hives Tetanus Toxoid Hives Medium 10/01/2010 Tetanus Toxoids Hives Medium 11/28/2017 Tetanus-Diphtheria Toxoids Td Hives Medium 08/07/2022 Medications pantoprazole (Protonix) 40 MG EC tablet Take 1 tablet (40 mg) by mouth 1 (one) time each day. Do not crush, chew, or split. Active lamoTRIgine (LaMICtal) 25 MG tablet Take 25mg by mouth in the morning and take 50mg by mouth in the evening Active baclofen (Lioresal) 10 MG tablet Take by mouth 3 (three) times a day. Active zonisamide (Zonegran) 100 MG capsule Take 100mg by mouth in the morning and 200 mg by mouth in the evening Active carvedilol (Coreg) 12.5 MG tablet Take by mouth 2 (two) times a day with meals. Active atorvastatin (Lipitor) 80 MG tablet Take 1 tablet (80 mg) by mouth every night. Active galcanezumab-gnlm (Emgality) 120 MG/ML injection Inject 1 Syringe (120 mg) under the skin every 30 (thirty) days. Active Rimegepant Sulfate (Nurtec) 75 MG tablet dispersible Take 1 tablet (75 mg) by mouth if needed. Active albuterol 108 (90 Base) MCG/ACT inhaler Inhale 2 puffs every 4 (four) hours if needed for wheezing. Active Budeson-Glycopyrr ol-Formoterol (Breztri Aerosphere) 160-9-4.8 MCG/ACT aerosol Inhale 2 Inhalation. 2 (two) times a day. Active ondansetron ODT (Zofran-ODT) 4 MG disintegrating tablet Take 1 tablet (4 mg total) by mouth every 6 (six) hours if needed for nausea or vomiting. 15 tablet 10/22/19 Active QUEtiapine (SEROquel) 100 MG tablet Take by mouth 1 (one) time each day. 11/11/19 22 Active B-D 3CC LUER-ARSALAN SYR 25GX1 25G X 1 3 ML misc 11/12/19 Active spironolactone (Aldactone) 50 MG tablet Take by mouth 1 (one) time each day. 03/03/20 Active rOPINIRole (Requip) 1 MG tablet Take by mouth every night. 03/03/20 Active Symbicort 160-4.5 MCG/ACT inhaler 03/12/20 Active Ozempic, 0.25 or 0.5 MG/DOSE, 2 MG/1.5ML solution pen-injector inj. pen 08/21/20 Active fluticasone (Flonase) 50 MCG/ACT nasal spray Administer into each nostril 1 (one) time each day if needed. 08/05/20 Active cetirizine (ZyrTEC) 10 MG tablet Take 1 tablet (10 mg) by mouth 1 (one) time each day. Active tiZANidine (Zanaflex) 4 MG tablet Take 1 tablet (4 mg) by mouth 3 times a day. Active Fluticasone-Umecl idin-Vilant (Trelegy Ellipta) 200-62.5-25 MCG/ACT aerosol powder Inhale 1 (one) time each day. Active dapagliflozin (Farxiga) 5 MG tablet Take 1 tablet (5 mg) by mouth 1 (one) time each day. Active lisinopril-hydroC HLOROthiazide 20-12.5 MG tablet Take 1 tablet by mouth 1 (one) time each day. 2024 Discontinued levothyroxine (Synthroid, Levoxyl) 88 MCG tablet Take 1 tablet (88 mcg) by mouth 1 (one) time each day before breakfast. 2024 Discontinued ARIPiprazole (Abilify) 10 MG tablet Take 1 tablet (10 mg) by mouth 1 (one) time each day. 2024 Discontinued cloNIDine (Catapres) 0.2 MG tablet Take 1 tablet (0.2 mg) by mouth every night. 2024 Discontinued hydrOXYzine pamoate (Vistaril) 50 MG capsule Take 1 capsule (50 mg) by mouth 3 (three) times a day if needed. 2024 Discontinued venlafaxine XR (Effoxor-XR) 150 MG 24 hr capsule Take 1 capsule (150 mg) by mouth 1 (one) time each day. Take with 75mg capsule 2024 Discontinued acetaminophen (Tylenol) 325 MG tablet Take 2 tablets (650 mg total) by mouth every 6 (six) hours if needed for mild pain. 60 tablet 09/25/20 21 2024 Discontinued venlafaxine (Effexor) 75 MG tablet Take 1 tablet (75 mg) by mouth 1 (one) time each day. Take with 150mg 2024 Discontinued ergocalciferol (Vitamin D-2) 1.25 MG (73491 UT) capsule Take 1 capsule (50,000 Units) by mouth 1 (one) time per week. Takes on Thursday Discontinued nicotine (Nicoderm CQ) 21 MG/24HR patch Place 1 patch on the skin 1 (one) time each day at the same time. 30 patch 10/22/19 22 2024 Discontinued nicotine polacrilex (Nicorette) 4 MG gum Chew 1 each (4 mg total) every 1 (one) hour if needed for smoking cessation. 100 each 1 10/22/19 22 2024 Discontinued cyanocobalamin (Vitamin B-12) 1000 MCG/ML injection 11/12/192024 Discontinued traZODone (Desyrel) 150 MG tablet 2 tablets (300 mg). 03/18/20 22 2024 Discontinued promethazine (Phenergan) 25 MG tablet 02/06/202024 Discontinued cyclobenzaprine (Flexeril) 10 MG tablet 01/21/20 22 2024 Discontinued varenicline (Chantix) 1 MG tablet 09/08/202024 Discontinued traMADol (Ultram) 50 MG tablet Take by mouth if needed. 09/25/202024 Discontinued mirtazapine (Remeron) 15 MG tablet Take 1 tablet (15 mg) by mouth 1 (one) time each day. 08/29/202024 Discontinued meclizine (Antivert) 25 MG tablet 06/26/202024 Discontinued ketoconazole (NIZOral) 2 % cream Apply topically. 07/01/202024 Discontinued hydroCHLOROthiazi de (HYDRODiuril) 25 MG tablet Take 25 mg by mouth 1 (one) time each day. 09/16/202024 Discontinued gentamicin (Garamycin) 0.1 % ointment Apply topically. 07/01/202024 Discontinued folic acid (Folvite) 1 MG tablet Take 1 tablet (1,000 mcg) by mouth 1 (one) time each day. 08/15/202024 Discontinued lisinopril 10 MG tablet Take 1 tablet (10 mg) by mouth 1 (one) time each day. 05/18/202024 Discontinued bumetanide (Bumex) 1 MG tablet Take 1 tablet (1 mg) by mouth 1 (one) time each day. 09/08/20 23 2024 Discontinued buPROPion XL (Wellbutrin XL) 300 MG 24 hr tablet 09/14/202024 Discontinued Vitamin D3 1.25 MG (05355 UT) capsule 09/14/202024 Discontinued potassium chloride (Klor-Con) 20 MEQ packet 11/18/192024 Discontinued sulfamethoxazole- trimethoprim (Bactrim DS) 800-160 MG tablet 09/14/202024 Discontinued colistimethate (Colymycin) 150 MG injection 09/30/202024 Discontinued potassium chloride CR (Klor-Con M20) 20 MEQ ER tablet 10/14/202024 Discontinued cyanocobalamin 1000 MCG tablet Take 1 tablet (1,000 mcg) by mouth 1 (one) time each day. 2024 Discontinued Hospital, Clinic, or Other Facility Administered Medication Ordered Dose Route Frequency Start Date End Date Status iothalamate meglumine (Cysto Conray) 17.2 % urethral solution solution 250 mLIndications:Incompl ete emptying of bladder,Neurogenic bladder 250 mL UR Once in imaging 06/01/2025 06/01/2025 Ended Active Problems Problem Noted Date Diagnosed Date [...] drinking soda. She has not utilized any uesy-lpq-pfscnoi medications such as AZO for her symptoms. [...] Date Type Department Care Team Description 06/01/2025 9:20 AM EDT Office Visit [facility] Urology [address] [place] [address] Magalis Reid, ART GLASS DESIGNER, DNP Neurogenic bladder (Primary Dx); Incomplete emptying of bladder; Sacral nerve stimulator present 06/01/2025 Orders Only External Location [address] [place] [address] Provider, External 06/01/2025 Travel 05/25/2025 Travel from Last 3 Months Family History Medical History Relation Name Comments Heart disease Maternal Grandmother Ovarian cancer Maternal Grandmother Relation Name Status [...] Pulse 73 06/01/2025 9:36 AM EDT Temperature 36.6 C (97.9 F) 11/14/2024 9:19 [...] EDT Appointment [facility] Radiology [address] [place] [address] 01/05/2026 11:00 AM EDT Clinical Support [facility] Lab [address] [place] [address] 01/05/2026 12:20 PM EDT Office Visit [facility] Urology [address] [place] [address] Kaylene Fernandez, ART GLASS DESIGNER [address] [place] [address] Health Maintenance Due Date Last Done Comments [facility]-HIV Screening 1970 [facility]-/Child/Adol SDOH Screenings 1970 [facility]- SDOH Screenings 1988 [facility]-Adult SDOH Screenings 1988 [facility]-DTaP,Tdap,and Td Vaccines (1 - Tdap) 1989 [facility]-Hepatitis A Vaccines (1 of 2 - Risk 2-dose series) 1989 [facility]-Hepatitis B Vaccines (1 of 3 - 19+ 3-dose series) 1989 CT Colonography 2015 Colonoscopy 2015 FIT-DNA 2015 FIT 2015 FOBT 2015 Sigmoidoscopy 2015 [facility]-Colorectal Cancer Screening 2015 [facility]-Breast Cancer Screening 2020 [id number] Vaccine ( season) 2024 02/09/2021, 01/19/2021 [facility]-Depression Screening 11/05/2024 11/05/2023, 07/0 03/2022 [facility]-Lung Cancer Screening 01/04/2025 01/05/2024, [facility]-Diabetes: Hemoglobin A1C 03/03/2025 03/03/2024, 01/15/2023, 11/27/2022, Additional history exists [facility]-Influenza Vaccine (#1) 06/19/202508/30, 08/10/2024, 07/15/2023, Additional history exists [facility]-Cervical Cancer Screening Discontinued [facility]-HPV/Cotest Discontinued 12/07/1997 [facility]-Pap Smear Discontinued 12/07/1997 [facility]-Pneumococcal Vaccine: 50+ Years Completed 11/26/2022, 07/04/2022 [facility]-Hepatitis C Screening Completed 11/27/2022, [facility]-Zoster Vaccines Completed 11/21/2024, [facility]-Obesity Intervention Completed 025, 11/14/2024, 11/05/2023, Additional history exists HPV Vaccines Aged Out No longer eligi [...] this topic Medical Devices Implanted Type Area Genetic Scientist Device Identifier Shelf Expiration Date Model / Serial / Lot Implant Implant Bilateral: Neck Implant Implant Left: Knee Joint Joint Bilateral: Hip Procedures Procedure Name Priority Date/Time Associated Diagnosis Comments POCT URINALYSIS DIPSTICK Routine 06/01/2025 9:51 AM EDT UROLOGY UDS WITH BASE PERFORMABLE CHARGES Routine 06/01/2025 9:20 AM EDT Incomplete emptying of bladder [place] COMPLEX CYSTOMETROGRAM W/VOID PRESS&URETHRAL PROFILE Routine 06/01/2025 9:20 AM EDT Incomplete emptying of bladder INJECTION FOR BLADDER XRAY WITHOUT VOIDING Routine 06/01/2025 9:20 AM EDT Incomplete emptying of bladder POC ULTRASOUND 06/01/2025 HEMOGLOBIN A1C Routine 09/10/2021 3:28 PM EST Pre-operative laboratory examination HEPATITIS C ANTIBODY - ED W/REFLEX TO HCV QUANT PCR Routine 05/08/2019 11:11 PM EDT CYTO DATA CONVERSION Routine 12/07/1997 12:00 AM EST from Last 3 Months or Most Recently Relevant to Health Maintenance Results * POCT URINALYSIS DIPSTICK (06/01/2025 9:51 AM EDT) POCT Urine Color Yellow 06/01/2025 9:53 AM EDT [facility] POCT Urine Clarity Clear 06/01/2025 9:53 AM EDT [facility] POCT Urine Glucose Negative Negative mg/dL 06/01/2025 9:53 AM EDT [facility] POCT Urine Bilirubin Negative Negative mg/dL 06/01/2025 9:53 AM EDT [facility] POCT Urine Ketones Negative Negative mg/dL 06/01/2025 9:53 AM EDT [facility] POCT Urine Specific Coward 1.015 1.005 - 1.030 06/01/2025 9:53 AM EDT [facility] POCT Urine Blood Negative Negative 06/01/2025 9:53 AM EDT [facility] POCT pH, Urine 7.0 5.0 - 8.0 06/01/2025 9:53 AM EDT [facility] POCT Protein, Urine Negative Negative mg/dL 06/01/2025 9:53 AM EDT [facility] POCT Urobilinogen, Urine 0.2 0.2, 1.0 EU/dL 06/01/2025 9:53 AM EDT [facility] POCT Nitrite, Urine Negative Negative 06/01/2025 9:53 AM EDT [facility] POCT Urine Leukocyte Esterase Negative Negative 06/01/2025 9:53 AM EDT [facility] Urine 06/01/2025 9:51 AM EDT 06/01/2025 9:53 AM EDT us Magalis Reid APRN, DNP LAB POINT OF CAR E TEST DOCKED DEVICE UNSOLICITED RESULTS Final Result [facility] [address] [place], [place] * INJECTION FOR BLADDER XRAY WITHOUT VOIDING, [place] COMPLEX CYSTOMETROGRAM W/VOID PRESS&URETHRAL PROFILE, UROLOGY UDS WITH BASE PERFORMABLE CHARGES (06/01/2025 9:20 AM EDT) Narrative Magalis Reid APRN, DNP - 06/01/2025 9:20 AM EDT Magalis Reid APRN, DNP 06/06/2025 10:40 PM UDS Performed by: Magalis Reid APRN, DNP Authorized by: Kaylene Fernandez APRN [place] Protocol: Time out called at: 05/31/2025 10:20 [...] no complications Post-procedure interventions: post-procedure instructions given us Kaylene Fernandez APRN UROLOGY ORDERABLES Final R esult * POC Imaging (06/01/2025) Anatomical Region Laterality Modality Pelvis Other 06/01/2025 us External Provider IMG POINT OF CARE ULTRASOUND F inal Result * (ABNORMAL) Hemoglobin A1c (09/10/2021 3:28 PM EST) Hemoglobin A1c 6.2(H) <5.7 % 09/10/2021 4:31 PM EST [facility] Blood Venous blood specimen / [...] Adults <6.0% Children and Adolescents <7.5% Source: [place] [employer]. Standards of medical care in diabetes,2017. Diabetes Care.2017:40 (suppl 1):S1-S135. HbA1c assay performed by an ion-exchange chromatography method that is certified traceable to the DCCT. Harpreet Laureano MD LAB BLOOD ORDERABLES Final Result [facility] [address] [place] [address] * [facility] Hepatitis C Antibody (05/08/2019 11:11 PM EDT) [facility] Hepatitis C Ab NEGATIVE Reference Range: Negative [facility] 05/08/2019 11:1 1 PM EDT 05/08/2019 11:25 PM EDT [facility] LAB BLOOD ORDERABLES Final Resul t [facility] * Cytology (12/07/1997 12:00 AM EST) 12/07/1997 12/07/1997 Narrative [facility] - 12/08/1997 12:00 AM EST [facility] MR #: [id number] [facility] FRANNIE NUÑEZ [place], [place] [address] 1970 (Age: 27) FW Collect Date: 12/07/1997 00:00 Receipt Date: 12/07/1997 00:00 Page 1 DEPARTMENT OF PATHOLOGY AND LABORATORY MEDICINE CYTOPATHOLOGY REPORT Email: [email or web address] * Converted Case * This report may [...] ICD: F: {Not Entered} SNOMED CODES: 1; [id number] A resident has participated in this service. A pathologist has performed and is responsible for the reported pathologic evaluation. us Historical Provider LAB PATHOLOGY ORDERABLES Fin al Result [facility] from Last 3 Months or Most Recently Relevant to Health Maintenance Insurance [employer] [facility] MEDICAID Advance Directives * Full Code (Latest Code Status on File) Date Activated Date Inactivated Comments 10/08/2021 11:36 AM 10/09/2021 6:28 PM Question Answer Comments Patient has decision-making capacity? Yes * Full Code Date Activated Date Inactivated Comments 09/23/2021 12:53 PM 09/25/2021 1:29 PM Question Answer Comments Patient has decision-making capacity? Yes Care Teams Industrial Maintenance Electrician Relationship Specialty Start Date End Date Lindsey Guardado APRN [address] [place] [address] PCP - General 06/01/25 Magalis Reid APRN, DNP [address] [facility] [address] [place] [address] Nurse Practitioner Urology 06/01/25 Guru Ma [address] [place] [address] [address] [facility] [address] Referring Physician Obstetrics and Gynecology 09/02/21
--- OUTSIDE RECORDS SUMMARY | 2025-06-12 12:09 | XMS_ITS | Encounter Summary ---
Author Organization [facility] Address [address] [place] [address] Care Team Providers Care Automotive Hardware Engineer Name Role Phone Ronaldo Kong MD Primary Care Provider [phone] Lindsey Guardado APRN Primary Care Provider [phone] Magalis Reid APRN, DNP Unavailable [phone] Encounter Details Date Type Department Care Team (Late st Contact Info) Description 07/08/2022 Orders Only External Location [address] [place] [id number] Provider, External Social History Tobacco Use Types [...] EDT Appointment [facility] [address] [place] [address] 01/05/2026 11:00 AM EDT Clinical Support [place] [facility] [address] [place] [address] 01/05/2026 12:20 PM EDT Office Visit [facility] [address] [place] [address] Kaylene Fernandez APRN [address] [place] [address] documented as of this encounter [...] as of this encounter Care Teams Automotive Hardware Engineer Relationship Specialty Start Date End Date Ronaldo Kong MD [address] [place] [address] [place] [address] PCP - General 03/01/21 05/31/25 Lindsey Guardado APRN [address] [place] [address] PCP - General 06/01/25 Magalis Reid APRN, DNP [address] [facility] [place] [address] Nurse Practitioner Urology 06/01/25 Guru Ma [address] [place] [address] [address] [facility] [address] Referring Physician Obstetrics and Gynecology 09/02/21 documented as of this encounter
--- OUTSIDE RECORDS SUMMARY | 2025-06-12 12:10 | XMS_ITS | Encounter Summary ---
[facility] Address [address] [place] [id number] Care Team Providers Care Automotive Shop Foreman Name Role Phone System, Provider Not In Primary Care Provider Un available Encounter Details Date Type Department Care Team (Late Contact Info) Description 10/02/2022 Telephone [facility] [address] [place] [address] [place] [address] Ronaldo Kong MD [address] [place] [address] Social History Tobacco Use Types [...] Description 11/13/2025 11:00 AM EST Office Visit [facility] [address] [address] Daphney Hall MD [address] [place] [address] 11/13/2025 11:00 AM EST Clinical Support No Requirements [facility] [address] [place] [address] documented as of this encounter Visit Diagnoses Not on filedocumented in this encounter Additional Health Concerns Assessment Noted Time PHQ-2 Depression Total Score: 3 05/27/20 22 12:00 PM EDT documented as of this encounter Care Teams Automotive Shop Foreman Relationship Specialty Start Date End Date System, [place] [address] PCP - General 02/14/25 documented as of this encounter
--- OUTSIDE RECORDS SUMMARY | 2025-06-12 12:10 | XMS_ITS | Patient Health Record ---
Author Organization [facility] Address [address] [facility] [address] [place] [address] Care Team Providers Care Pattern Drafter Name Role Phone Harpreet Castaneda [phone] Allergies Allergen (clinical drug ingredient) Drug/Non Drug Allergy documented on EMR Reaction Allergy Type Onset Date Status diphenhydramine Benadryl Unknown Drug Allergy A ctive Tetanus Immune Globulin Unknown Drug Allergy Active meclizine Meclizine anxiety/ nerve pain Drug Allergy Active Reason For Referral No Information Medications Medication SIG (Take, Route, Frequency, Duration) Notes Start Date End Date Status buPROPion HCl ER (Smoking Det) 150 MG 1 tablet in the morning Orally Once a day; Duration: 30 day(s) Active Rosuvastatin Calcium 40 MG 1 tablet Oral ly Once a day 11/22/2024 Active Emgality 120 MG/ML 1 ml Subcutaneous; Duration: 30 day(s) Active ZyrTEC Allergy 10 MG 1 tablet Orally Onc e a day; Duration: 30 day(s) Active ARIPiprazole 5 MG 1 tablet Orally Once a day Active Nurtec 75 MG 1 tablet on the tongue and allow to dissolve Orally; Duration: 30 days As needed Active Pantoprazole Sodium 40 MG 1 tablet Orall y Once a day Active Baclofen 10 MG 1 tablet Orally four times a day Active Zonisamide 100 MG 1 capsule Orally Thr ee times daily Active Carvedilol 12.5 MG 1 tablet with food Orally Twice a day Active Spironolactone 50 MG 1 tablet Orally Onc e a day Active rOPINIRole HCl 2 MG 2 tablet 1 to 3 hour s before bedtime Orally Once a day Active Albuterol Sulfate HFA 108 (90 Base) MCG/ACT 1 puff as needed Inhalation every 4 hrs Not-Takin g Problems Problem Type SNOMED Code ICD Code Onset Dates Problem Status W/U Status Risk Notes Problem 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 Problem Morbid obesity (007751395) Morbid obesity (E66.01) Active confirmed Problem Type 2 diabetes mellitus (74625987) Type 2 diabetes mellitus (E11.9) Active confirmed Problem Hypertension (16963606) HTN (hypertension) (I10) Active confirmed Problem Brain tumor (794097277) Brain tumor (D49.6) Active confirmed Problem Obstructive sleep apnea syndrome (99659308) BRENDA (obstructive sleep apnea) (G47.33) Active confirmed Problem Obese (198596543) Obese (E66.9) Active confirmed Problem Chronic kidney disease stage 2 (581788227) Chronic kidney disease stage 2 (N18.2) Active confirmed Problem Obstructive sleep apnea syndrome (17383336) BRENDA (obstructive sleep apnea) (G47.33) Active confirmed [...] 11/22/2024 Encounters Encounter Location Date Provider Diagnosis [facility] [address] [place] [address] 11/22/2024 Harpreet Castaneda Chronic kidney disease stage [...] IRON, TIBC AND FERRITIN PANEL 07/29/2022 CMP14+eGFR 11/30/2023 CMP14+eGFR 07/29/2022 CMP14+eGFR 12/01/2022 CMP14+eGFR 08/01/2021 URINALYSIS COMPLETE 06/01/2023 URINALYSIS COMPLETE [...] 07/29/2022 Next Appt Details Provider Name:Harpreet Castaneda, 06/13/2025 03:00:00 PM, [address] [facility] [address], [place], [address], Insurance Providers Payer Name Payer Address Payer Phone Subscriber Number Group Number Insured Name Patient Relationship to Insured Coverage Start Date Coverage End Date Aetna [facility] [address] [place] [phone] [id number] Massimo chacon Frannie Self - patient is the insured Medical (General) History Medical History History ICD Code Anemia Avitaminosis B 12 deficiency Carotid artery stenosis CHF 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
[2025-06-12 14:26] VITALS: BP 150/69; BP 180/99; PULSE 86; RESP 14; O2SAT 97; BMI 43.8
== END 2025-06-12 23:59 | disposition home or self-care (01) ==
LOC: SC.PAIN 11:31
PROVIDERS: Visit Provider Nurse Practitioner Family
DX: M47.26 Other spondylosis with radiculopathy, lumbar region (principal)
CPT/HCPCS: 99212; G0463

== ENCOUNTER 2025-08-15 13:46 | Day surgery (SDC) | payer OTHER, SELFPAY ==
[2025-08-15 13:52] VITALS: BP 148/81; PULSE 67; RESP 18; O2SAT 96; BMI 42.3
[2025-08-15] MEDS: DEXAMETHASONE 10MG/ML 1ML VIAL 10 MG (14:18)
[2025-08-15] MEDS: BUPIVACAINE 0.25% 10ML INJ 25 MG IJ (14:18)
[2025-08-15] MEDS: LIDOCAINE 1% 5ML PF VIAL 5 ML (14:19)
--- NOTE | 2025-08-15 14:20 | EXP.PAIN.PRO ---
Procedure Date: 08/15/25 Time: 14:15 Anesthesiologist:: Xavier Childress CRNA Complications:: None Pre-procedure Diagnosis:: Status post bilateral TKA. Chronic bilateral knee pain. Post-procedure Diagnosis:: Same. Indications for Procedure:: Patient is a pleasant 55-year-old female who comes our clinic today for bilateral infrapatellar nerve block. Patient is status post bilateral TKA. Left knee replaced 7 years ago. Right knee replaced 1 year ago. She continues to have bilateral chronic knee pain. She describes the pain as constant, dull, aching. She rates pain 7/10. Procedure Details:: Details of the procedure explained to the patient. The patient taken procedure and placed in the sitting position. The over the right knee was cleaned using chlorhexidine as a cleansing solution. Using a 25-gauge inch and half needle the right infrapatellar branch of the saphenous nerve was accessed with ease. After negative aspiration 4 cc of 1% lidocaine +4 cc of 0.25% Marcaine and 10 mg of dexamethasone was injected incrementally. Patient tolerated procedure without difficulty. Dental complications. The same procedure was carried out over the left knee. Patient tolerated procedure without difficulty. There were no complications. Plan and Disposition:: Patient was discharged without incident.
[2025-08-15 14:34] VITALS: BP 159/99; PULSE 78; RESP 18; O2SAT 94
[2025-08-15 15:18] VITALS: BP 186/84; PULSE 80; RESP 18; O2SAT 95
[2025-08-15 15:20] VITALS: BP 186/84; PULSE 80; RESP 18; O2SAT 95
== END 2025-08-15 14:34 | disposition home or self-care (01) ==
PROVIDERS: Visit Provider Nurse Anesthetist, Certified Registered
DX: M25.561 Pain in right knee (principal); M25.562 Pain in left knee; G89.29 Other chronic pain; I11.0 Hypertensive heart disease with heart failure; I50.9 Heart failure, unspecified; J45.909 Unspecified asthma, uncomplicated; F32.A Depression, unspecified; E78.5 Hyperlipidemia, unspecified; F17.210 Nicotine dependence, cigarettes, uncomplicated; G40.909 Epilepsy, unspecified, not intractable, without status epilepticus; Z95.0 Presence of cardiac pacemaker; Z96.653 Presence of artificial knee joint, bilateral; Z97.8 Presence of other specified devices; Z88.8 Allergy status to other drugs, medicaments and biological substances; Z88.1 Allergy status to other antibiotic agents; Z88.7 Allergy status to serum and vaccine; Z91.048 Other nonmedicinal substance allergy status; Z79.899 Other long term (current) drug therapy
CPT/HCPCS: 64447; J0665; J1100; J2003

== ENCOUNTER 2025-09-22 09:57 | Outpatient (CLI) | payer OTHER, SELFPAY ==
--- OUTSIDE RECORDS SUMMARY | 2024-05-30 08:20 | XMS_ITS ---
Author Organization [facility] Address [address] [place] [address] Care Team Providers Care Associate Broker Name Role Phone Harpreet Castaneda Unavailable [phone] Encounters Encounter Location Date Provider Diagnosis [facility] [address] [facility] [facility] [address] [place] [address] 05/30/2024 Harpreet Castaneda Plan Of Treatment Next Appt Details Provider Name:Harpreet Castaneda, 12/14/2025 11:20:00 AM, [address] [facility], [place], [address], Progress Notes * Frannie NUÑEZDOB:[birth year] (55 yo F)Acc No.[id number]:05/30/2024 progress note Patient: Frannie ZAVALA Provider: Denzel Castaneda MD :1970 A ge:53 Y S ex:Female Date:05/30/2024 Address:[address] [id number] Subjective: * Chief Complaints: * * Medical History: Objective: * Vitals: Assessment: Plan: * Treatment: Care Plan: * Problems: * Billing Information: * Visit Code: * Procedure Codes: * Electronic signature of Cici Castaneda M.D. on 09/22/2025 at 10:04 AM EST Sign off status: Pending * Provider: Denzel Castaneda MD Date: 0 05/30/2024 Generated for Cayla Spauldingg/Reina on: 1 11/23/2024 10:04 AM EST
--- OUTSIDE RECORDS SUMMARY | 2024-05-30 08:20 | XMS_ITS ---
Author Organization [facility] Address [address] [place] [address] Care Team Providers Care Format Proofreader Name Role Phone Ronaldo Kong Primary Care Provider Unavailabl Harprete Pastrana Unavailable [phone] Jennie Royal Unavailable Unavailable Encounters Encounter Location Date Provider Diagnosis [address] [place] [address] 05/30/2024 Harpreet Castaneda Plan Of Treatment No Information Progress Notes * Frannie NUÑEZDOB:[birth year] (55 yo F)Acc No.[id number]:05/30/2024 Progress Note Patient: Frannie ZAVALA Provider: Denzel Castaneda MD :1970 A ge:53 Y S ex:Female Date:05/30/2024 Address:[address], [id number] Pcp:Ronaldo Kong Subjective: * Chief Complaints: * * Medical History: Objective: * Vitals: Assessment: Plan: * Treatment: * * Electronic signature of Cici Castaneda MD on 09/22/2025 at 09:00 AM LAB SYSTEMS ANALYST Sign off status: Pending * Provider: Denzel Castaneda MD Date: 0 05/30/2024 Generated for Charlottei ng/Linda/eTransmitting on: 1 11/23/2024 09:00 AM LAB SYSTEMS ANALYST
--- OUTSIDE RECORDS SUMMARY | 2025-05-23 03:20 | XMS_ITS ---
Author Organization [facility] Address [address] [place] [address] Care Team Providers Care Purification Operator Name Role Phone Harpreet Castaneda Unavailable [phone] Medications Medication SIG (Take, Route, Frequency, Duration) Notes Start Date End Date Status Albuterol Sulfate HFA 108 (90 Base) MCG/ACT 1 puff as needed Inhalation every 4 hrs Anitha-Arnulfo vazquez Zonisamide 100 MG 1 capsule Orally Thr ee times daily Active Carvedilol 12.5 MG 1 tablet with food Orally Twice a day Active Spironolactone 50 MG 1 tablet Orally Onc e a day Active rOPINIRole HCl 2 MG 2 tablet 1 to 3 hour s before bedtime Orally Once a day Active Emgality 120 MG/ML 1 ml Subcutaneous; Duration: 30 day(s) Active ARIPiprazole 5 MG 1 tablet Orally Once a day Active Nurtec 75 MG 1 tablet on the tongue and allow to dissolve Orally; Duration: 30 days As needed Active Pantoprazole Sodium 40 MG 1 tablet Orall y Once a day Active Baclofen 10 MG 1 tablet Orally four times a day Active buPROPion HCl ER (Smoking Det) 150 MG 1 tablet in the morning Orally Once a day; Duration: 30 day(s) Active Rosuvastatin Calcium 40 MG 1 tablet Oral ly Once a day 11/22/2024 Active ZyrTEC Allergy 10 MG 1 tablet Orally Onc e a day; Duration: 30 day(s) Active Encounters Encounter Location Date Provider Diagnosis [facility] [address] [facility] [address] [place] [address] 05/23/2025 Harpreet Castaneda Plan Of Treatment Next Appt Details Provider Name:Harpreet Castaneda, 12/14/2025 11:20:00 AM, [facility] [facility], [place], [address], Progress Notes * Frannie NUÑEZDOB:[birth year] (55 yo F)Acc No.[id number]:05/23/2025 progress note Patient: Frannie ZAVALA Provider: Denzel Castaneda MD :1970 A ge:54 Y S ex:Female Date:05/23/2025 Address:[facility] [address], [id number] Subjective: * Chief Complaints: * * Medical History: * Medications: T aking Rosuvastatin Calcium 40 MG Tablet 1 tablet Orally Once a day , Taking buPROPion HCl ER (Smoking Det) 150 MG Tablet Extended Release 12 Hour 1 tablet in the morning Orally Once a day , Taking ZyrTEC Allergy 10 MG Tablet 1 tablet Orally Once a day , Taking Emgality 120 MG/ML Solution Prefilled Syringe 1 ml Subcutaneous , Taking Nurtec 75 MG Tablet Disintegrating 1 tablet on the tongue and allow to dissolve Orally As needed, Taking ARIPiprazole 5 MG Tablet 1 tablet Orally Once a day , Taking Baclofen 10 MG Tablet 1 tablet Orally four times a day , Taking Pantoprazole Sodium 40 MG Tablet Delayed Release 1 tablet Orally Once a day , Taking Carvedilol 12.5 MG Tablet 1 tablet with food Orally Twice a day , Taking Zonisamide 100 MG Capsule 1 capsule Orally Three times daily , Taking rOPINIRole HCl 2 MG Tablet 2 tablet 1 to 3 hours before bedtime Orally Once a day , Taking Spironolactone 50 MG Tablet 1 tablet Orally Once a day , Not-Taking Albuterol Sulfate HFA 108 (90 Base) MCG/ACT Aerosol Solution 1 puff as needed Inhalation every 4 hrs Objective: * Vitals: Assessment: Plan: * Treatment: * Billing Information: * Visit Code: * Procedure Codes: * Electronic signature of Cici Castaneda M.D. on 09/22/2025 at 10:00 AM EST Sign off status: Pending * Provider: Denzel Castaneda MD Date: 0 05/23/2025 Generated for Cayla james/Linda/Reina on: 1 11/23/2024 10:00 AM EST
--- OUTSIDE RECORDS SUMMARY | 2025-07-26 08:30 | XMS_ITS | Encounter Summary ---
Author Organization [facility] Address [address] [place] [address] Care Team Providers Care Entry Level Sales Associate Name Role Phone System, Provider Not In Primary Care Provider Un available Reason for Visit * Reason Comments Hypertension Edema Had edema in legs an d ankles last week Encounter Details Date Type Department Care Team (Late st Contact Info) Description 07/26/2025 9:30 AM EDT Office Visit [facility] [address] [place] [address] Sophy Mcgraw APRN [address] [place], [place] [phone] Swelling of lower extremity (Primary Dx); Shortness of breath; Primary hypertension; Pacemaker; Pure hypercholesterolemia; BRENDA (obstructive sleep apnea); Nonrheumatic mitral valve regurgitation; Chronic diastolic (congestive) heart failure Social History [...] or training? Not on file Preferred Language Tristanian 03/03/2024 PHQ-2 Answer Date Recorded Retired PHQ-9: Brief Depression Severity Measure Score 21 11/30/2023 Comments No Sex and Gender Information Value Date Recorded Sex Assigned at Female 03/08/2025 7:42 AM EDT Legal Sex Female 12:37 PM EDT Gender Identity Not on file Sexual Orientation Not on file documented as of this encounter Last Filed Vital Signs Vital Sign Reading Time Taken Comments Blood Pressure 130/80 07/26/2025 9:14 AM EDT Pulse 78 07/26/2025 9:14 AM EDT Temperature - - Respiratory Rate - - Oxygen Saturation 99% 07/26/2025 9:14 AM EDT Inhaled Oxygen Concentration - - Weight 126 kg (278 lb) 07/26/2025 9:14 AM EDT Height 162.6 cm (5' 4 ) 07/26/2025 9:14 AM EDT Body Mass Index 47.72 07/26/2025 9:14 AM EDT documented in this encounter Progress Notes * Sophy Mcgraw APRN - 07/26/2025 9:30 AM EDTAssociated Problem(s): Swelling of lower extremity * Sophy Mcgraw APRN - 07/26/2025 9:30 AM EDTAssociated Problem(s): Hypertension {Hypertension is (optional):[id number]} * Sophy Mcgraw APRN - 07/26/2025 9:30 AM EDTAssociated Problem(s): Pacemaker * Sophy Mcgraw APRN - 07/26/2025 9:30 AM EDTAssociated Problem(s): BRENDA (obstructive sleep apnea) * Sophy Mcgraw APRN - 07/26/2025 9:30 AM EDTAssociated Problem(s): Chronic diastolic (congestive) heart failure {CHF (Optional):65085} Orders: XR Chest 2 View; Future proBNP; Future Basic Metabolic Panel; Future * Sophy Mcgraw APRN - 07/26/2025 9:30 AM EDTAssociated Problem(s): Shortness of breath * Sophy Mcgraw APRN - 07/26/2025 9:30 AM EDT Images from the original note were not included. [facility] Provider Note Date: 07/26/2025 Name: Frannie Nuñez : 1970 PCP: System, Provider Not In Chief Complaint Patient presents with Hypertension Edema Had edema in legs and ankles last week Subjective History of Present Illness History of Present Illness The patient is a 55-year-old female who presents for a follow-up visit regarding her leg and foot swelling and shortness of breath, She was prescribed spironolactone 0\on 07/19/2025 due to swelling in her legs and feet. Medication has helped with the swelling, still has some mild swelling in her ankles. She also reports intermittent shortness of breath since the onset of these symptoms, which she does not feel like has improved with the use of spironolactone. She reports no chest pain or dizziness. She had some fatigue before starting the spironolactone but is doing well on the 25 mg dose. States she saw Dr Mendez Olson wrapper rewinder and states he ordered ultrasound of her legs and was diagnosed with blood clots in the upper part of her thighs. She is scheduled to see a vascular surgeon, Dr. Ferguson, next Thursday. She has not yet started any blood thinners. Office has called to get records of imaging. She states she used to see Dr Ferguson r/t carotid stenosis, last time she saw him was in 2020. She has a history of 50% to 60% blockage in both carotid arteries, which was last checked in 2020. She plans to have this re-evaluated during her upcoming visit with Dr. Ferguson. She had a pacemaker check on Thursday. Cardiac/Sleep history 1. Hypertension 2. Congestive heart [...] present. ?? Mild pulmonary hypertension is present. *[facility] 01/15/23- Angiographically normal coronary arteries. Normal left ventricular systolic function. Allergies Allergen Reactions Sulfa Antibiotics Nausea Only Diphenhydramine Hives Adhesive Tape Rash OK with paper tape Bactrim [Sulfamethoxazole-Trimethoprim] Nausea Only Doxycycline Nausea Only Meclizine Rash Metformin Nausea Only Ozempic (0.25 Or 0.5 Mg-Dose) [Semaglutide(0.25 Or 0.5mg-Dos)] Nausea And Vomiting Tetanus Immune Globulin Hives Tetanus Toxoid-Containing Vaccines Hives Current Outpatient Medications: albuterol sulfate HFA [...] Rfl: Continuous Glucose Transmitter (Dexcom G6 Transmitter) [facility], See Admin Instructions., Disp: , Rfl: desvenlafaxine [...] OVER 24 HOURS, Disp: 60 tablet, Rfl: 2 lamoTRIgine (LaMICtal) 150 MG tablet, Take 1 tablet by mouth Daily. 2 tablets once daily, Disp: , Rfl: Linzess 145 MCG capsule capsule, TAKE ONE CAPSULE BY MOUTH ONCE A DAY 30 MINUTES BEFORE MEAL (Patient taking differently: No sig reported), Disp: , Rfl: nicotine polacrilex (COMMIT) 4 MG lozenge, DISSOLVE 1 lozenge BY MOUTH EVERY 1 TO 2 HOURS DO not exceed more THAN 20 PER DAY (Patient taking differently: No sig reported), Disp: , Rfl: Nurtec 75 MG dispersible tablet, Take 75 tablets by mouth As Needed. As needed, Disp: , Rfl: nystatin (MYCOSTATIN) 219566 UNIT/GM powder, Apply topically to the appropriate [...] every night at bedtime., Disp: , Rfl: spironolactone (ALDACTONE) 25 MG tablet, Take 1 tablet by mouth Daily., Disp: 30 tablet, Rfl: 11 Trelegy Ellipta 100-62.5-25 MCG/ACT inhaler, , Disp: [...] Heart Cath; Surgeon: Burt Roman MD; Location: [facility]; Service: Cardiovascular; Laterality: N/A; CARDIAC ELECTROPHYSIOLOGY PROCEDURE N/A 08/12/2022 Procedure: DEVICE IMPLANT; Surgeon: Daphney Anton MD; Location: [facility]AS[facility] LOC[facility]; Service: Cardiology; Laterality: N/A; CARPAL TUNNEL RELEASE Bilateral CERVICAL SPINE SURGERY X2 COLONOSCOPY 12/26/2020 Diverticulosis left side, 1.2 cm adenoma with hyperplastic polyps, 5-year follow-up recommended COLONOSCOPY 01/11/2025 ENDOSCOPY HYSTERECTOMY 2004 Secondary to endometriosis, prior Pap smears normal [...] Sexual activity: Defer Objective Vital Signs: BP 130/80 Pulse 78 Ht 162.6 cm (64 ) Wt 126 kg (278 lb) SpO2 99% BMI 47.72 kg/m?? Estimated body mass index is 47.72 kg/m?? as calculated from the following: Height as of this encounter: 162.6 cm (64 ). Weight as of this encounter: 126 kg (278 lb). Physical Exam Constitutional: Appearance: Normal appearance. [...] is cooperative. Thought Content: Thought content normal. Results Imaging - Echocardiogram: 03/01/2025, Ejection fraction of 61% to 65% and mild to moderate mitral valve regurgitation Assessment and Plan Assessment & Plan Swelling of lower extremity Shortness of breath Primary hypertension Pacemaker Pure hypercholesterolemia BRENDA (obstructive sleep apnea) Nonrheumatic mitral valve regurgitation Chronic diastolic (congestive) heart failure Orders: XR Chest 2 View; Future proBNP; Future Basic Metabolic Panel; Future Assessment & Plan 1. Lower extremity swelling: - Weight has decreased from 286 to 278 since 05/16/2025. - Reports less swelling in legs and feet but still experiences some swelling in ankles and legs, worsening as the day progresses. - Continue spironolactone 25 mg daily - Order BNP test and chest x-ray for today. - Order BMP test a few days prior to the next appointment to monitor potassium and electrolyte levels. 2. Shortness of breath: - Reports experiencing shortness of breath - Order chest x-ray and BNP test to investigate the cause. 3. HTN - BP stable today - continue medical regimen 4. Pacemaker - Pacemaker was checked on Thursday - Pacemaker good battery and lead 5. BRENDA - Pap DL reviewed, good compliance and control. Benefiting from pap therapy and plan to continue. - Using PAP machine 100%, average use 6 hours and 54 min, AHI 0.8 6. Mitral valve Regurgitation - ECHO updated on 03/01/2025, stable 7. Chronic Diastolic Heart Failure - Continue medical regimen; Carvedilol, lasix, and Spironolactone Follow-up: Follow-up visit is scheduled in 4 weeks. Recommendations: Report if any new/changing symptoms immediately, Limit salt, Elevate legs, Compression hose, Sleep risks reviewed (driving, medical, sleep , sedating agents), and Sleep hygiene discussed Follow Up Return in about 4 weeks (around 08/23/2025) for Recheck symptoms. Patient or patient outbound call center representative verbalized consent for the use of Ambient Listening during the visit with Sophy Mcgraw APRN for chart documentation. 07/26/2025 09:34 EDT Sophy Mcgraw APRN Cardiology and Sleep [facility] 07/26/2025 Please note that this explicitly excludes time spent on other separate billable services such as performing procedures or test interpretation, when applicable. documented in this encounter Plan of Treatment Upcoming Encounters Date Type Department Care Team (Late st Contact Info) Description 11/13/2025 11:00 AM EST Office Visit [facility] [address] [place] [address] Daphney Anton MD [address] [place] [address] 11/13/2025 11:00 AM EST Clinical Support No Requirements [facility] [address] [place] [place] [address] 12/20/2025 1:30 PM EST Office Visit [facility] [address] [place] [address] Daphney Anton MD [address] [place] [address] 12/20/2025 1:30 PM EST Clinical Support No Requirements [facility] [address] [place] [place] [address] documented as of this encounter Results * XR Chest 2 View (08/22/2025) Anatomical Region Laterality Modality Body N/A Radiographic Amanda ging Sophy Mcgraw APRN IMG DIAGNOSTIC IMAGING ORD ERABLES Final Result * Basic Metabolic Panel (08/21/2025) Blood Sophy Mcgraw APRN LAB BLOOD ORDERABLES Final Result [facility]
[address] [place] [address], documented in this encounter Visit Diagnoses Diagnosis Swelling of lower extremity- Primary Shortness of breath Primary hypertension Unspecified essential hypertension Pacemaker Cardiac pacemaker in situ Pure hypercholesterolemia BRENDA (obstructive sleep apnea) Obstructive sleep apnea (adult) (pediatric) Nonrheumatic mitral valve regurgitation Chronic diastolic (congestive) heart failure documented in this encounter Additional Health Concerns Assessment Noted Time PHQ-2 Depression Total Score: 3 07/18/20 24 11:28 AM EDT documented as of this encounter Care Teams Entry Level Sales Associate Relationship Specialty Start Date End Date System, [place] [address] PCP - General 02/14/25 documented as of this encounter
--- OUTSIDE RECORDS SUMMARY | 2025-07-31 03:38 | XMS_ITS | Continuity of Care Document ---
Author Organization [facility] Phone Care Team Providers Care Textile Coating Machine Operator Name Role Phone DARON CALVIN Admitting Unavailable BULMARO RODRIGUEZ Primary Care DARON CALVIN Unavailable Unavailable DARON CALVIN Primary Attending Unavailable ALLERGIES AND ADVERSE REACTIONS ALLERGIES AND ADVERSE REACTIONS Code System Allergy Substance Adverse Reaction Date Reaction (Severity) Comment Status Reported By Updated By 3494 RXNorm Diphenhydramine Adverse reaction to substance (Mild) pt active [id number] on April 23, 2024 7:56:36 PM UTC Tetanus Toxoids Adverse reaction to substance Not Specified active [id number] on April 23, 2024 7:56:36 PM UT FAMILY HISTORY RELATION: Father Status: Cause of : Unknown Age at : Unknown SNOMED-CT Diagnosis Age At Onset [id number] Heart disease RELATION: Mother Status: LIVING SNOMED-CT Diagnosis Age At Onset [id number] Hypertensive disorder RESULTS Patient: RAI Villalobos Date of : [birth year] 03 3 LABORATORY RESULTS ORDER 300: B-TYPE NATRIURETI C PEPTIDE BNP (LOINC: 07492-4) ORDER DATE: July 26, 2025 2:51:00 PM UTC Specimen Source: Whole Blood Specimen Type: Whole blood s ample PERFORMING LAB: [address] [id number] Result Comment: Final Result Date: July 26, 2025 3:12:00 PM UT (TECH: MRB) LOINC TEST [place] [id number] Natriuretic peptide B [Mass/volume] in Serum or Plasma N 52.9 pg/mL 0.0 pg/mL - 100 pg/mL July 26, 2025 3:12:00 PM UT (TECH: MRB) LABORATORY NARRATIVE RESULTS Information is not available RADIOLOGY RESULTS ORDER 100: CHEST PA AND LAT (LOINC: 96113-3) ORDER DATE: July 26, 2025 2:01:00 PM UT PERFORMING LAB: [address] [place] [id number] Final Result Date: July 2:19:[address] [place] [address] Name: MECHE ATWOOD Exam Date: 07/26/2025 : 1970 Age 55 years Gender: F Physician: DARON CALVIN Facility: [facility] Facility HSV: Outpatient Exam: CHEST PA & LAT EXAM: XR CHEST 2 VIEWS INDICATION: CHF COMPARISON: Chest x-ray from 04/23/2024. FINDINGS: Left-sided pacer, unchanged. Normal cardiomediastinal silhouette. No acute airspace disease, pneumothorax, or pleural effusion. No acute osseous abnormality. IMPRESSION: * No acute cardiopulmonary findings. Electronically signed by: Kieran Ray MD 07/26/2025 10:27 AM EDT Dictated By: Kieran Ray Transcribed By: Transcribed On: 07/26/2025 10:19 AM Electronically signed by: Kieran Ray 07/26/2025 Thank you for referring MECHE ATWOOD to [facility]. Legally authenticated by EDY IRIZARRY MD 2025-07-26 10:19:44 PATHOLOGY NARRATIVE RESULTS Information is not available MICROBIOLOGY RESULTS No Micro Labs/Results Exist for Patient BLOOD ADMIN RESULTS Information is not available MEDICATIONS HOME MEDICATIONS Status RXNORM ND Medication Dose Route Frequency Dates Comments Reported By Updated By Drug Treatment Unknown DISCHARGE MEDICATIONS Status RXNORM ND Medication Dose Route Frequency Dates Dis pense Data Comments Physician Updated By No Discharge Medication Info rmation Available INPATIENT MEDICATIONS Status RXNORM NDC Medication Dose Route Frequency Rat e Quantity Dates Indication Dispense Data Comments Physician Updated By No Inpatient Medication Info rmation Available SOCIAL HISTORY SOCIAL HISTORY - Smoking Status SNOMED-CT Social History Element Description Effective Dates Offered Cessation Comment Updated By [id number] Historical Tobacco smoking status Current Every Day Smoker [id number] on April 23, 2024 8:50:19 PM [facility] [id number] Historical Tobacco smoking status Never Smoked [id number] on February 26, 2023 8:24:02 PM [facility] [id number] Historical Tobacco smoking status Unknown If Ever Smoked [id number] on July 25, 2013 11:27:36 PM [facility] SOCIAL HISTORY - Gender Sex: Female SOCIAL HISTORY - Status : status i nformation is not available Intention in Next Year: intention information is not available SOCIAL HISTORY - Assessments Code System Description Status Date Value of Assessment Updated By Comment Assessment Information is no t available SOCIAL HISTORY - [place] Affiliation [place] information is not av ailable SOCIAL HISTORY - Legal Sex Legal Sex information is not available SOCIAL HISTORY - Sexual Behavior Sexual Orientation Gender Identity SNOMED-CT Description SNO MED -CT Description Activity Level No of Partners Partner Type UpdatedBy Information is not available SOCIAL HISTORY - Occupation Occupation information is no t available HEALTH CONCERNS Problems Concern Status Health Concern problem infor mation not available. Smoking Status Status Years Used Consumed packs p er day Health Concern smoking histo ry information not available. Family History Concern Status Health Concern family histor y information not available. ENCOUNTERS ENCOUNTER INFORMATION Reason for Visit I50.32 Admission July 26, 2025 1:54:00 PM [facility] [address] [address] Discharge July 26, 2025 7:54:00 PM [place] D ISCHARGED TO HOME OR SELF CARE ENCOUNTER DIAGNOSES Notes information is not william ilable. Code System Diagnosis Onset Date Diagnosis information is not available. ABSTRACT DIAGNOSES Code System Diagnosis Updated By Abatement Date I50.32 ICD10 CHRONIC DIASTOLI C (CONGESTIVE) HEART FAILURE [id number] on July 31, 2025 8:37:58 AM [facility] Z88.2 ICD10 ALLERGY STATUS TO SULFONAMID ES [id number] on July 31, 2025 8:37:58 AM [facility] Z91.048 ICD10 OTHER NONMEDICIN AL SUBSTANCE ALLERGY STATUS [id number] on July 31, 2025 8:37:58 AM [place] I50.32 ICD10 CHRONIC DIASTOLI C (CONGESTIVE) HEART FAILURE [id number] on July 31, 2025 8:37:58 AM [place] Z88.2 ICD10 ALLERGY STATUS TO SULFONAMID ES [id number] on July 31, 2025 8:37:58 AM [place] Z91.048 ICD10 OTHER NONMEDICIN AL SUBSTANCE ALLERGY STATUS [id number] on July 31, 2025 8:37:58 AM UTC Z88.1 ICD10 ALLERGY STATUS T O OTHER ANTIBIOTIC AGENTS [id number] on July 31, 2025 8:37:58 AM [place] Z88.7 ICD10 ALLERGY STATUS T O SERUM AND VACCINE [id number] on July 31, 2025 8:37:58 AM [facility] CARE TEAM Care Textile Coating Machine Operator Role DARON CALVIN Admitting BULMARO RODRIGUEZ Primary Care DARON CALVIN Referring DARON CALVIN Primary Attending CARE TEAM CARE mold maker helper Role on Team Location Telecom Status Start Date End Yannick e Updated By MICHAEL CHAMBERLAIN REMOTE RECRUITER PCP normal July 26, 2025 1:55:16 PM [facility] July 26, 2025 7:54:00 PM [facility] [id number] on July 26, 2025 1:55:16 PM [facility] MARIXA NERI Referring normal July 26, 2025 1:55:16 PM [facility] July 26, 2025 7:54:00 PM [facility] [id number] on July 26, 2025 1:55:16 PM [facility] MARIXA NERI Attending normal July 26, 2025 1:55:16 PM [facility] July 26, 2025 7:54:00 PM [facility] [id number] on July 26, 2025 1:55:16 PM [facility] MARIXA NERI Admitting normal July 26, 2025 1:55:16 PM [facility] July 26, 2025 7:54:00 PM [facility] [id number] on July 26, 2025 1:55:16 PM [facility]
--- OUTSIDE RECORDS SUMMARY | 2025-08-21 07:21 | XMS_ITS | Continuity of Care Document ---
Author Organization [employer] Care Team Providers Care Parts Counterperson Name Role Phone ALEXANDER MEDINA Admitting ALEXANDER MEDINA Primary Attending ALEXANDER MEDINA Unavailable BULMARO RODRIGUEZ Primary Care ALLERGIES AND ADVERSE REACTIONS ALLERGIES AND ADVERSE REACTIONS Code System Allergy Substance Adverse Reaction Date Reaction (Severity) Comment Status Reported By Updated By [id number] RXNorm Diphenhydramine Adverse reaction to substance (Mild) pt active [id number] on April 23, 2024 7:56:36 PM [facility] Tetanus Toxoids Adverse reaction to substance Not Specified active [id number] on April 23, 2024 7:56:36 PM [facility] FAMILY HISTORY RELATION: Father Status: Cause of : Unknown Age at : Unknown SNOMED-CT Diagnosis Age At Onset [id number] Heart disease RELATION: Mother Status: LIVING SNOMED-CT Diagnosis Age At Onset [id number] Hypertensive disorder MEDICATIONS HOME MEDICATIONS Status RXNORM NDC Medication Dose Route Frequency Dates Comments Reported By Updated By Drug Treatment Unknown DISCHARGE MEDICATIONS Status RXNORM NDC Medication Dose Route Frequency Dates Dis pense Data Comments Physician Updated By No Discharge Medication Info rmation Available INPATIENT MEDICATIONS Status RXNORM NDC Medication Dose Route Frequency Rat e Quantity Dates Indication Dispense Data Comments Physician Updated By No Inpatient Medication Info rmation Available SOCIAL HISTORY SOCIAL HISTORY - Smoking Status SNOMED-CT Social History Element Description Effective Dates Offered Cessation Comment Updated By [id number] Historical Tobacco smoking status Current Every Day Smoker [id number] on April 23, 2024 8:50:19 PM [facility] [id number] Historical Tobacco smoking status Never Smoked [id number] on February 26, 2023 8:24:02 PM [facility] [id number] Historical Tobacco smoking status Unknown If Ever Smoked [id number] on July 25, 2013 11:27:36 PM [facility] SOCIAL HISTORY - Gender Sex: Female SOCIAL HISTORY - Status : status i nformation is not available Intention in Next Year: intention information is not available SOCIAL HISTORY - Assessments Code System Description Status Date Value of Assessment Updated By Comment Assessment Information is no t available SOCIAL HISTORY - [place] Affiliation [place] information is not av ailable SOCIAL HISTORY [...] available. ENCOUNTERS ENCOUNTER INFORMATION Reason for Visit CERVICAL DDD M50.30 Admission July 19, 2025 7:30:[address] [address] Discharge August 03, 2025 6:28:00 PM [facility] DISCHARGED TO HOME OR SELF CARE ENCOUNTER DIAGNOSES Notes information is not william ilable. Code System Diagnosis Onset Date Diagnosis information is not available. ABSTRACT DIAGNOSES Code System Diagnosis Updated By Abatement Date M50.30 ICD10 OTHER CERVICAL D ISC DEGENERATION, UNSPECIFIED CERVICAL REGION [id number] on August 21, 2025 12:20:50 PM [facility] M50.30 ICD10 OTHER CERVICAL D ISC DEGENERATION, UNSPECIFIED CERVICAL REGION [id number] on August 21, 2025 12:20:50 PM [facility] CARE TEAM Care Parts Counterperson Role ALEXANDER MEDINA Admitting ALEXANDER MEDINA Primary Attending ALEXANDER MEDINA Referring BULMARO RODRIGUEZ Primary Care CARE TEAM CARE mending carrier Role on Team Location Telecom Status Start Date End Yannick e Updated By CAROL MUNOZ Referring normal July 20, 2025 4:06:18 AM [facility] August 03, 2025 6:28:00 PM [facility] on July 20, 2025 4:06:18 AM [facility] CAROL MUNOZ Attending normal July 20, 2025 4:06:18 AM [facility] August 03, 2025 6:28:00 PM [facility] on July 20, 2025 4:06:18 AM [facility] CAROL MUNOZ Admitting normal July 20, 2025 4:06:18 AM [facility] August 03, 2025 6:28:00 PM [facility] on July 20, 2025 4:06:18 AM [facility] MICHAEL CHAMBERLAIN APRN PCP normal July 19, 2025 7:30:24 AM [facility] August 03, 2025 6:28:00 PM [facility] on July 20, 2025 4:06:18 AM [facility]
--- OUTSIDE RECORDS SUMMARY | 2025-08-21 13:30 | XMS_ITS | Encounter Summary ---
Author Organization [employer] ([place], [place], [place], [place], [place]) Address [address] [place] [address] Care Team Providers Care Inspector And Mender Name Role Phone Tanna Finch BOARDMARKER Primary Care Provid er Reason for Referral * Speech Therapy (Routine) - New Request Specialty Diagnoses / Procedures Referred By Michael yao Referred To Contact Speech Pathology / Speech Therapy Diagnoses Cognitive communication deficit Lino Solis MD [address] [place] [address] [address] [place] [address] Phone: tel: fax: Kristina Rivera [facility] Referral ID Status Reason Start Date Expiration Date V isits Requested Visits Authorized [id number] New Request 08/21/2025 08/21/2026 1 1 * Consultation (Routine) - Closed Specialty Diagnoses / Procedures Referred By Michael yao Referred To Contact Behavioral Health Diagnoses Cognitive change Lino Solis MD [address] [place] [address] [address] [place] [address] Phone: tel: fax: [facility] [address], [address] [place] [address] Phone: tel: fax: Referral ID Status Reason Start Date Expiration Date V isits Requested Visits Authorized [id number] Closed Specialty Services Required 08/21/2025 08/21/2026 1 1 * Surgical (Routine) - Closed Specialty Diagnoses / Procedures Referred By Michael t Referred To Contact Orthopedic Surgery Diagnoses Right carpal tunnel syndrome Lino Solis MD [address] [place] [address] [address] [place] [address] Phone: tel: fax: [facility] [address] [place] [address] Phone: tel: fax: Referral ID Status Reason Start Date Expiration Date V isits Requested Visits Authorized [id number] Closed Specialty Services Required 08/21/2025 08/21/2026 1 1 Reason for Visit * Reason Comments Fibromyalgia Encounter Details Date Type Department Care Team (Late st Contact Info) Description 08/21/2025 1:30 PM EST Office Visit [facility] Neurology - [facility] [address] [place] [address] [address] [place] [id number] Lino Solis MD [address] [place] [address] [address] [place] [address] Fibromyalgia (Primary Dx); Partial seizure disorder (HCC); Degenerative disc disease, cervical; Cognitive change; Right carpal tunnel syndrome; Migraine without aura and without status migrainosus, not intractable; Degenerative disc disease, lumbar; RLS (restless legs syndrome); High risk medication use; Cognitive communication deficit Social History Tobacco Use Types Packs/Day Years Used Date Smoking Tobacco: Some Days Cigarettes Smokeless Tobacco: Never Alcohol Use Standard Drinks/Week Comments Never 0 (1 standard drink = 0.6 oz pur e alcohol) Family and Community Support Answer Yannick e Recorded Help with Day to Day Activities Not on file 11/06/2023 Feeling Lonely or Isolated Not on file 11/06 Educational Attainment Answer Date Joseph rded Speak language other than [place] at home Not on file 11/06/2023 Want help with school or training Not on file 11/06/2023 Substance Use Answer Date Recorded Used prescription meds for non-medical reasons N ot on file 11/06/2023 Used illegal drugs past 12 months Not on file 11/06/2023 Comments No Sex and Gender Information Value Date Recorded Sex Assigned at Female 04/17/2022 4:47 PM CDT Legal Sex Female 3:02 PM CDT Gender Identity Female 04/17/2022 4:47 PM CDT Sexual Orientation Not on file documented as of this encounter Last Filed Vital Signs Vital Sign Reading Time Taken Comments Blood Pressure 142/90 08/21/2025 1:23 PM EST Pulse 78 08/21/2025 1:23 PM EST Temperature - - Respiratory Rate - - Oxygen Saturation - - Inhaled Oxygen Concentration - - Weight 121.1 kg (267 lb) 08/21/2025 1:23 PM EST Height - - Body Mass Index 41.82 04/27/2025 1:46 PM EDT documented in this encounter Progress Notes * Lino Solis MD - 08/21/2025 1:30 PM EST [facility] [address] [facility], [address] [place] [address] Frannie Rosario Eudora [address] [address] 55 y.o. female Chief Complaint Patient presents with Fibromyalgia HPI: Fibromyalgia: The patient is being seen for a routine clinic follow-up of fibromyalgia. The patienthas been previously evaluated [facility], [place], [place] [address]. Past evaluation has included Cervical and brain MRI. Symptoms: diffuse tenderness, generalized fatigue, sleep disturbance, headaches and cognitive impairment. Pain scores include an average pain level of 6/10 and a maximum pain levelof 8/10. The pain is located in the low back bilaterally and in the neck. The patient describes thepain as aching. Current treatment (off gabapentin Oct 2024) Previous Medications: Fetzima restarted 3.06.03 which caused renal insufficiency, amitriptyline, fluoxetine, venlafaxine, Cymbalta, Savella, gabapentin (retried Oct 2024 but not tolerated), Lyrica, topiramate, Fetzima in 2014 became too expensive. She has seen Dr. Zhu three times since .11.02 who did not feel surgery was necessary unless the cervical stenosis worsens. She has been seen by Ophthalmology in past who noted vision loss due to dry eyes which caused corneal scarring. She had a left hip replacement 03/01/2018; her right hip was replaced 07/05/2018. She has had a torn meniscus of the right knee surgically fixed February 2019; she underwent a total leftknee replacement in September 2019. She had surgery for ovarian cysts (removal of the ovaries) at in September 2021, followed by a C4-[address] Piper 12/13/2021. She had a pacemaker placed in 08/12/2022 because her heart was stopping. She notes worsening skin sensitivity. Cognitive changes She notes worsening cloudiness ; her attention span and short term memory are short. Seizures She was last seen by Dr. Schultz in July 2023 and he requested she follow up here. Current medication: lamotrigine extended release 200 mg QHS (provided by Psychiatry, Dr. Barbara Gil, with [facility]), zonisamide 100 mg QAM and 200 mg QHS. She has had no seizures recently, and her last seizure was prior to July 2023. Headache: The patient is being seen for a routine follow-up of. The pain is on the entire left side. It is described as throbbing and occurs 1-2 per month down from 14-18 per month, lasting for 2-3 days. On a scale of 0-10, the pain severity average is 7 and maximum is 10. Symptoms include nausea, phonophobia and photophobia. Current treatment includes Emgality (Oct 2020); zonisamide 100 mg QAM and 200 mg QHS; Nurtec ODT PRN; naproxen 500 mg PRN; promethazine PRN (venlafaxine XR 150 mg daily by Psych). Previous Meds: topiramate, zonisamide lisinopril, venlafaxine; sumatriptan, rizatriptan, eletriptan. NSAIDs are contraindicated by GI. She has no h/o kidney stones or glaucoma; she does not have an allergy to sulfa medications She notes her headaches last about 2-3 days and Nurtec ODT helps; Ubrelvy was not covered. She notes her headaches improved since she was seen 06/07/2025 and would like to hold off on Botox for now. Bilateral carpal tunnel She notes numbness, tingling, and pain in both hands, worse on the left. She has had bilateral releases in the past years ago. She notes the symptoms improved with a change in bed position (stopped sleeping on her hands). She notes worsening symptoms in the right hand in that she has more trouble writing and her she has pain when washing dishes. She notes her legs become numb when reclining in a chair. She has DM and Dr. Kong follows her A1c'sand B12 levels. Restless legs syndrome She notes ropinirole was started 07/18/2021; she is taking ropinirole 2 mg at 7 PM and 1 mg at 9:30 PM and the RLS has improved. Vitamin D deficiency She remains on vit D3 50,000 units once weekly. Her levels are followed by her PCP. Low back pain She could not get in to see a naval aircrewman tactical helicopter, so she saw Dr. Banerjee with pain management and a morphine pain pump was placed in 2022. She was seen by Dr. Piper in 2021 who reviewed an MRI L spine and didnot feel surgery was necessary. A bladder stimulator was placed in July 2023. She notes the despite the pain pump and dose escalations she has continued low back pain. She has been doing exercisesfrom PT for >6 weeks, she has worsening in her back going down both legs, tingling in the right leg. Her distances are getting shorter and she has trouble standing at her sink. She is less able todo housework or stand at the sink to do dishes. An MRI was performed in 2024 and she was seen by Dr. Piper; Dr. Banerjee plans a pain stimulator trial 09/01/2025. A pacemaker was placed in July 2022. She was seen by Dr. Kevin at for 2nd opinion concerning MS and she was not told she does not have MS (). She is on BiPAP (her sleep doctor is in [place], [place]). She has a pacemaker (July 2022), intrathecal morphine pain pump (2022), and a bladder stimulator(July 2023) in addition two hip replacements and bilateral knee replacements. Her urine drug screens are performed at [facility] for the intrathecal morphine pump. She started seeing Dr. Ferguson in 2024 for PVD in the legs and he plans on checking her carotids. Medications: Current Outpatient Medications Medication Sig Dispense Refill acetaminophen (TYLENOL) 325 MG tablet Take 2 tablets (650 mg total) by mouth every 6 (six) hours ifneeded. albuterol HFA (VENTOLIN HFA) 90 mcg/actuation inhaler Inhale by mouth via inhaler. aspirin 81 MG EC tablet Take 1 tablet (81 mg total) by mouth daily. atorvastatin (LIPITOR) 80 MG tablet Take 1 tablet (80 mg total) by mouth daily. baclofen (LIORESAL) 10 MG tablet TAKE 1 TABLET BY MOUTH 4 TIMES A DAY NEEDED 360 tablet 1 carvediloL (COREG) 12.5 MG tablet Take 1 tablet (12.5 mg total) by mouth 2 (two) times daily. cetirizine (ZyrTEC) 10 MG tablet Take 1 tablet (10 mg total) by mouth daily. desvenlafaxine (PRISTIQ) 100 MG 24 hr tablet Take 1 tablet (100 mg total) by mouth daily. dexlansoprazole 60 mg capsule Take 1 capsule (60 mg total) by mouth daily. famotidine (PEPCID) 20 MG tablet Take 1 tablet (20 mg total) by mouth 2 (two) times daily as needed. (Patient not taking: Reported on 04/27/2025.) furosemide (LASIX) 20 MG tablet TAKE ONE TABLET BY MOUTH 2 TIMES A DAY. TAKE ONE TABLET NEEDED FOR AGRESSIVE EDEMA OR WEIGHT GAIN GREATER THAN 2 POUNDS OVER 24 HOURS galcanezumab-gnlm (Emgality Pen) 120 mg/mL pen Inject 1 mL (120 mg total) under the skin every 30 (thirty) days. 1 mL 6 lamoTRIgine 200 mg tr24 Take 1 tablet (200 mg total) by mouth daily ONCE A. linaCLOtide (LINZESS) 290 mcg cap Take 145 mcg by mouth every morning before breakfast. (Patient not taking: Reported on 04/27/2025.) methocarbamoL (ROBAXIN) 500 MG tablet Take 2 tablets (1,000 mg total) by mouth every 6 (six) hours as needed. ondansetron (ZOFRAN-ODT) 4 MG disintegrating tablet Take 1 tablet (4 mg total) by mouth every 6 (six) hours if needed. (Patient not taking: Reported on 04/27/2025.) Ozempic 1 mg/dose (4 mg/3 mL) pnij Inject 1 mg under the skin once a week. QUEtiapine (SEROquel) 50 MG tablet Take 1-2 tablets (50-100 mg total) by mouth nightly. rimegepant (Nurtec ODT) 75 mg TbDL Take 75 mg by mouth as directed Take Nurtec ODT 75 mg as needed for migraine once in 24 hours.. 16 tablet 5 rOPINIRole (REQUIP) 2 MG tablet Take 2 tablets (4 mg total) by mouth nightly MOUTH EVERY. 60 tablet5 spironolactone (ALDACTONE) 50 MG tablet Take 1 tablet (50 mg total) by mouth daily. traMADoL (ULTRAM) 50 mg tablet Take 1 tablet (50 mg total) by mouth 2 (two) times daily as needed FOR PAIN. Trelegy Ellipta 100-62.5-25 mcg dsdv 1 puff daily. zonisamide (ZONEGRAN) 100 MG capsule Take 100 mg every morning and 200 mg every evening. 270 capsule 3 No current facility-administered medications for this visit. Allergies: Diphenhydramine; Tetanus Toxoid Fluid; Metformin; Tetanus Immune Globulin; Adhesive Tape; Diphtheria Toxoid,Adsorbed; Meclizine Hcl; Other; and Sulfamethoxazole-Trimethoprim Past Medical History: Past Medical History: Diagnosis Date Arthritis B12 deficiency Carotid artery stenosis Carpal tunnel syndrome Cervical spinal cord compression (HCC) CHF (congestive heart failure) (HCC) COPD (chronic obstructive pulmonary disease) (HCC) Depression Fibromyalgia Hyperlipidemia Hypertension Insomnia Irritable bowel syndrome Migraine Palpitations Paresthesia Restless leg syndrome Sleep apnea Constantino-Ronak disease (HCC) Tremor Vertigo Past Surgical History: Past Surgical History: Procedure Laterality Date HYSTERECTOMY NECK SURGERY REPLACEMENT TOTAL KNEE SHOULDER SURGERY TOTAL HIP ARTHROPLASTY Family History: Family History Problem Relation Name Age of Onset Hypertension Mother Heart disease Father Rheum arthritis Maternal Grandmother Heart failure Other Depression Other Diabetes Other Migraines Other Hyperlipidemia Other Social History: Social History Tobacco Use Smoking status: Some Days Types: Cigarettes Smokeless tobacco: Never Substance Use Topics Alcohol use: Never ROS: Review of Systems Respiratory: Negative for cough, shortness of breath and wheezing. Gastrointestinal: Negative for constipation, diarrhea, nausea and vomiting. Genitourinary: Negative for dysuria, frequency and urgency. The patient's medical history, surgical history, and social history were reviewed and updated as appropriate. Objective: Vital Signs: There were no vitals filed for this visit. BMI: There is no height or weight on file to calculate BMI. Mental Status - Alert. General Appearance - Cooperative. Not in acute distress. Build & Nutrition - Well nourished. HEENT - Eye Note: Pupils equal, reactive to light and to accommodation directly and consensually Peripheral Vascular - Upper Extremity: Inspection - Bilateral - Normal. Neurologic Mental Status: Speech - Normal. Cranial Nerves: III Oculomotor: Pupillary constriction - Bilateral - Normal. Note: no ptosis, no Saar's sign, no Dion Justin pupil VII Facial: - Normal and symmetric facial muscles. Eye Movements: - PERRL. EOMI. Sensory: Intact to pinprick in all 4 extremities except decreased to pinprick 1/2 way to knees. Reflexes: 1+ (diminished) throughout. Musculoskeletal: Motor: Tone: Normal. Bulk: Normal. Strength: 5/5 in the arms and 4+/5 in both legs. Results: MRI L spine w/o, [facility], 12.15.14: No evidence of significant spinal or neuroforaminal compromise. No evidence of acute osseous abnormality. Labs, Dr. Ronaldo Kong's office, 15: A1c 6.0%. B12 357. BMP nl. Labs, [facility], 5.15: CK 207 (26 - 192). ESR 53. TSH 1.210. Serum ZARI studies show no evidence of monoclonal gammopathy. No significant abnormalities in the serum protein pattern. MRI brain w/o, [facility], 03.28.15: Scattered white matter changes on FLAIR which are nonspecific. Moderate left maxillary sinus disease with a periapical cyst vs mucous retention cyst. A small amount of fluid in the right mastoid air cells suggests early / mild mastoiditis. MRI C spine w/o, [facility], 03.28.15: Degenerative and post-surgical changes potentiated by reversal of the normal lordotic curvature; the most significant level appears at C4 - 5 where there is a large posterior disc osteophyte complex formation causing significant canal stenosis. Moderate left paranasalsinus disease noted. Ms. Nuñez was seen by Dr. Zhu 04.07.15 who noted cervical spondylosis with bilateral hand numbness, felt due to CTS. EMG/NCS was noted to be ordered for 04.18.15 and he will see her back after that. EMG/NCS, [facility], 04.18.15: All 4 limbs tested. She had mild changes suggestive of bilateral chronic C7 radiculopathies but otherwise the study was normal. Ms. Nuñez was seen by Dr. Kumari in March 2015 who noted the mucocele of the sinus lining and that it was not inflamed; he did not feel it contributed to her current symptomatology. Labs, [facility], 12.25.15: CMP nl. CBC nl. B12 600. HC 9. MMA <0.20. TSH 2.650. Vit D 13. ESR 33. CK 119. Labs, [facility], 03.31.16: Vit D 42.6. MRI L spine w/o, [facility], 04.14.16: Mild degenerative changes without central canal or neural foraminal stenosis. Reviewed on PACS 04.15.16. Ms. Nuñez was seen at [facility] to 07/05/2017 and the impression was keratoconjunctivitis siccaof both eyes due to decreased tear production; hyperopia of both eyes with astigmatism and presbyopia was also noted. Temporary plugs were inserted bilaterally. Labs, [facility], 12/23/2016: CMP normal. Vitamin D 26. CBC abnormal for white blood cell count 10.9 (4-10),MCV 100.3 (79-94.8). Ms. Nuñez was seen in the ER 01/25/2017: Per Dr. Diez: Call from Dr. Galvan at the [facility] emergency room 01/25/17. She had a complaint of a different headache location to she has chronic headaches this is more left occipital otherwise did not sound remarkable and by time I spoke him the headache had resolved. She likely has some tingling in left arm mainly ulnar hand fourth and fifth digits. This is most likely distal or ulnar related, he thought History of fibromyalgia iqbal disc disease. Today CT head which was reportedly negative CT spine which was unremarkable according to the ER interpretation. In view of her chronic baseline headaches no further investigation was recommended. The left hand tingling sounded like ulnar distribution according to his evaluation. She does apparently have some cervical radicular history however. CT brain without contrast, [facility], 01/25/2017: No acute findings. No abnormal density is seen; ventricles are normal; there is no hemorrhage; and there is no mass effect. CT C-spine without contrast, [facility], 01/25/2017: No acute bony abnormality. Thereis moderate spondylosis and degenerative change with fusion seen at C6-7. No obvious bony spinal canal stenosis is present. MRI brain without contrast, [facility], 03/02/2017: 2 small foci ofincreased T2 signal in the right frontal white matter which may represent mild chronic ischemic gliotic changes, demyelination, or changes of vasculitis. When compared on CD versus the scan from [facility] 03/28/2015 via [facility] 04/01/2015 there were no definite significant changes. Labs, ordered by Dr. Nuvia Steen, 07/13/2017: Cyclic citrulline peptide IgG < 5. RPR nonreactive. QuantiFERON TB Gold negative. Beta-2 glycoprotein 1, IgA < 4. Anticardiolipin, IgA 3. Negative for lupus inhibitor. Beta 2 glycoprotein 1, IgG < 6. Beta-2 glycoprotein 1, IgM < 2. Beta-2 glycoprotein 1 domain 1 lesson 7.2. Cardiolin IgM 1. Anti-phosphatidylserine IgG and IgM antibodies negative. CMP normal. Urine creatinine 40 urine protein 6. Acute hepatitis panel nonreactive for hepatitis A, B, and C. CK 96. Urinalysis moderate leukocyte esterase. CBC abnormal for WBC 15.5 (4-10),hemoglobin 11.1 (11.2-15.7), platelets 372 (163-369). HIV 1/2 nonreactive. HEAVY EQUIPMENT TECHNICIAN autoantibody < 0.2. SCL 70 autoantibody < 0.2. SM autoantibody < 0.2. SSA autoantibody < 0.2. SSB autoantibody < 0.2. Aldolase 4.2. Myositis Annmarie 1 autoantibody panel negative. Phosphatidylserine antibodies,IgA, IgG, and IgM negative. DsDNA negative. Complement C3 and C4 normal. Rheumatoid factor < 20.BERTRAND < 1:40. EEG, [facility], 10/21/2017: This digital EEG was abnormal for intermittent, generalized, moderate slowing (in the delta range). There were no epileptiform discharges or lateralizing findings. Ms. Nuñez was admitted to the EMU by Dr. Schultz 11/30/2017 through 12/03/2017. She had no clinical events during 3 days of monitoring off Synvisc some mild and gabapentin. Continuous EEG showed abnormalities including sharp waves in the left temporal electrodes and recurrent brief bursts of bihe mispheric slow waves. It was recommended the zonisamide be increased to 200 mg daily and she will follow up with Dr. Schultz in his office. If she fails treatment with another medication repeat video EEG monitoring would be recommended. Labs, [facility], 04/19/2018: CBC normal except WBC 11.4 (normal 3.4-10.8). CMP normal except glucose 101. Vitamin D 24.1. Labs, [facility], 09/16/2018: CBC normal except WBC 14.9 (normal 3.4-10.8). CMP normal except glucose 113, creatinine 1.01 (normal 0.57-1.00). Vitamin D 22.9. Labs, [facility], 11/30/2018: Compliance Drug Analysis positive for gabapentin, zonisamide, meprobamate, hydroxybupropion, trazodone, 1, 3 chlorophenylpiperazine (an expected metabolite of trazodone), venlafaxine, desmethylvenlafaxine, aripiprazole, and hydroxyzine. Ms. Nuñez was seen by Dr. Paresh Jaime at [facility] 02/01/2019 who noted BRENDA, diagnosed in early 2016. She failed a trial of auto Pap and was unable to tolerate it. She was then switched to BiPAP but was unable to document good compliance. Since then she has gotten worse, therefore,she would like to try BiPAP again. A split-night sleep study will be performed and a titration. Ms. Nuñez was seen by Dr. Henrik Jaime 02/09/2019 who noted a split-night sleep study revealed severe obstructive sleep apnea and numerous leg movements early in the night, but disappeared as soonas she was started on positive airway pressure. She will start auto BiPAP in follow-up at the [facility]. EMG/NCS, [facility], 04/14/2019: The right arm and leg were studied and there was no evidence of radiculopathy. Nerve conduction studies did reveal a mild right nonlocalizing peroneal neuropathy. Labs, [facility], September 2019: BMP normal except glucose 181. CMP normal except potassium 3.5. CBC normal except WBC 14.4 (normal 4- 10.5), hemoglobin 9.4 (normal 12.5-16), hematocrit 30.8% (normal 37-47%). Labs, [facility], 04/13/2020: CBC normal except WBC 12.6 (normal 4.5-11.5), hemoglobin 11.8 (normal 12-15.7), hematocrit 35.3% (normal 36-47%). CMP normal. Magnesium 2.1. Vitamin D 32.4. Urine drug screen negative for all substances tested. Labs, [facility], 10/08/2020: Vitamin D 25.8. ., [facility], 02/27/2021: Westergren ESR 60. CK 104. B12 1822. MRI left shoulder, [facility], [facility], 03/26/2021: Mild AC joint arthrosis. These results were discussed with Ms. Nuñez in clinic 03/28/2021. MRI L-spine without contrast, [place], [place], 04/03/2021: There is a mildposterior annular disc bulge without nerve root compression at L4-5; there is no spinal canal stenosis. Mild bilateral neural foraminal narrowing and mild bilateral facet spondylosis were seen. At L5-S1, there is a mild diffuse posterior annular disc bulge with minimal spinal stenosis and contact of the bilateral S1 nerve roots. Mild bilateral neural foraminal narrowing and mild bilateral facet spondylosis noted. EMG/NCS, [facility], 04/24/2021: The left arm and both legs were tested. The left arm was found to be normal as was the left leg. The right peroneal neuropathy was again noted with a velocity of 36.9 m/s, normal greater than 41 m/s. EMG of the right short head of the biceps femoris was normal. The right posterior tibial nerve showed a low velocity of 34.72 m/s, normal greater than 40 m/s, suggesting the presence of an early/mild generalized sensorimotor peripheral neuropathy, demyelinating. EMG of both legs showed no evidence of radiculopathy. MRI C-spine without contrast, [facility], 05/16/2021: Postsurgical changes with prior fusion at C5-6, C6-7, and C7-T1. At C3-4 there is minimal disc bulging and mild prominence of the posterior longitudinal ligament with canal stenosis of 9 mm without cord effacement. At C4-5 there is moderate to severe canal stenosis at 7 mm with mild impingement upon the cord and mild cord flattening. *Referral will be placed to neurosurgery to address the moderate cervical gnosis at C4-5 and lessercervical stenosis at C3-4. Labs, [facility], 05/30/2021: Electrophoresis showed no M spike; serum immunofixation showed no monoclonality detected. Ms. Nuñez was seen by Dr. Piper 07/18/2021 who noted a prior C5-C7 fusion and recommended a C4-ACDF, planned for August 2021. A referral was placed to ENT because she has had 2 prior anterior cervical procedures. Labs, [facility], 01/24/2022: CBC normal except WBC 14.7 (normal 4.5-11.5). Urinalysis showed trace leukocyte Estrace, too numerous to count epithelial cells, trace bacteria. CMP normalexcept creatinine 1.01 (normal 0.57- 1), Glucose 133. MRI L-spine without contrast, [facility], [place], [place], 02/13/2022: Comparison 04/03/2021. Mild disc bulge at L4-5 without significant central canal stenosis or neuroforaminal narrowing. EMG/NCS, [facility], 03/21/2022: The left leg was studied and found to be normal. Ms. Nuñez was seen by Dr. Mendez Piper 04/03/2022 who noted a past C4-5 ACDF extension and presentation with MRI L-spine. Low back pain and left lower extremity numbness/weakness were noted and her lumbar MRI was unremarkable, with no surgical options. He was supportive of a pain pump but also felt a trial of lumbar facet blocks, possible rhizotomies, prior to undergoing that procedure should be considered. Records from [facility]: Ms. Nuñez presented 06/25/2022 feeling lightheaded, weak, and dizzy and noted her blood sugar prior to arrival was 507; she said she felt like she was going to pass out. The blood sugar was rechecked in the emergency room and was 122; dehydration was suspected. ECG, [facility], 06/25/2022: Normal sinus rhythm. Cannot rule out anterior infarct. CT head without contrast, [facility], 06/25/2022: No acute intracranial abnormality. Duplex venous sonography of the left lower extremity, [facility], 06/25/2022: No evidence of DVT of the left lower extremity. Chest x-ray, [facility], 06/25/2022: No acute cardiopulmonary process. Labs, [facility], 06/25/2022: CMP normal except glucose 133, alkaline phosphatase 148 (normal 46-116). TSH 1.04. Free T4 1.07. CBC normal except WBC 13.3, hemoglobin 12 (normal 12.5-16), hematocrit 36.6% (normal 37- 47%). Troponin 4 (normal). MRI brain with and without contrast, [facility], 07/08/2022: Comparison to 04/07/2015. Mild but progressive nonspecific white matter signal changes can be seen with chronic small vessel disease, demyelinating disease, sequela of vasculitis, and migraine headaches. There is no abnormal intracranial enhancement. No evidence of acute ischemia. These images were reviewed via [employer] 07/09/2022. *She will be referred to for second opinion concerning possible multiple sclerosis given the newsymptoms of dizziness and progressive white matter changes. Ms. Nuñez was seen by Dr. Kevin at 09/26/2022 who noted an abnormal MRI of the brain but there was no significant abnormality therefore follow-up was not necessary. Ms. Nuñez was last seen by Dr. Schultz 08/17/2023 who noted she was satisfied with her seizurecontrol and absence of side effects on her current doses of zonisamide and lamotrigine; plans were made for Dr. Solis to continue her AEDs and to return to the epilepsy clinic as needed. Labs, [facility], 11/30/2023: B12 705. Vitamin D 46.5. Free T4 1.26. TSH 1.180. A1c 7.1%. Labs, [facility], 12/28/2023: Serum immunofixation showed no monoclonality. Serum IgG, IgA, and IgM normal. CT chest low-dose cancer screening, [facility], 12/30/2022: Comparison 12/30/2022. Stable 6 mm nodule in the left upper lobe. Recommend 12- month LDCT follow-up. Labs, [facility], 04/15/2024: BMP abnormal for glucose 140, creatinine 1.35 (normal 0.57-1), eGFR 47. Labs, [facility], 07/18/2024: A1c 6.3%. MRI L-spine without contrast, [facility], 04/24/2025: Comparison March 2016. There is a broad based disc bulge at L3-4 with mild central canal stenosis. Disc bulges at other levels; mild bilateral neural foraminal narrowing was also noted at L3-4. These images were reviewed via PACS 04/24/2025. Ms. Nuñez was seen by Dr. Piper 04/27/2025 who noted severe lower back pain. An MRI L-spine at [facility] 04/24/2025 was reviewed and it was noted she sees Dr. Banerjee at [facility]; she has hada C4-5 and C6-7 ACDF in November 2021. Mild degenerative changes were noted throughout the L-spine but no evidence of instability, central or foraminal stenosis requiring surgery. She was encouraged to continue to follow-up with Dr. Banerjee. Neuropsychological Screening Evaluation, Tanna Lomeli, [facility], 09/05/2025: It is suspected the etiology of her memory loss during day-to-day tasks is attributable to variable attention related to fibromyalgia, anxiety, depression, chronic pain, and sleep dysregulation. Reevaluation in 1 year shouldbe considered, psychopharmacological therapy should be continued for mood related symptoms, and medication (nonstimulant therapy) may be considered for daytime fatigue and inattention. She should continue BiPAP for BRENDA. Assessment: ICD-10-CM ICD-9-CM 1. Fibromyalgia M79.7 729.1 2. Partial seizure disorder (HCC) G40.109 345.50 3. Degenerative disc disease, cervical M50.30 722.4 4. Migraine without aura and without status migrainosus, not intractable G43.009 346.10 5. Degenerative disc disease, lumbar M51.369 722.52 6. RLS (restless legs syndrome) G25.81 333.94 7. High risk medication use Z79.899 V58.69 Plan: Frannie was seen today for fibromyalgia. Diagnoses and all orders for this visit: Fibromyalgia Partial seizure disorder (HCC) Degenerative disc disease, cervical Migraine without aura and without status migrainosus, not intractable Degenerative disc disease, lumbar RLS (restless legs syndrome) High risk medication use Discussion: Ms. Nuñez is s/p ACDF (C5-7 possibly) by Dr. Zhu in 2002 [address] a revision [address] Dr[address] Zhu in 2011. She was diagnosed with fibromyalgia in 2004 at the [place] branch of the [facility]. She also has lower back pain (December 2014 MRI L spine w/o negative) and was seen 03.15.15 for a re-evaluation for neck pain, back pain, numbness, tingling, and weakness. An MRI brain w/o at [facility] 03.28.15 showed nonspecific white matter changes (a sinus cyst was seen which Dr. Kumari did not feel was significant). An MRI C spine showed spinal stenosis due to a disc bulge at C4-5 which she [address] seen [address] Zhu; he ordered EMG/NCS of both arms which was normal other than chronic changes in the C7 distributions bilaterally (both legs normal). She underwent a total left knee replacement by Dr. Hall in early September 2019. An MRI C-spine performed at [facility] 05/16/2021 showed postsurgical changes with prior fusion at C5-6 through C7-T1. Moderate to severe canal stenosis was seen at C4-5 and she was referred to neurosurgery and seen by Dr. Piper 07/18/2021 who performed a C4-5 ACDF 12/13/2021. An MRI L-spine performed at [facility] in [place], [place] 02/13/2022 showed a mild disc bulge atL4-5 without significant central canal stenosis and she was seen by Dr. Piper with neurosurgery 04/03/2022 who did not feel surgery was warranted. An MRI brain with and without contrast performed at [facility] 07/08/2022 was compared to a prior scan 04/07/2015 and showed mild but progressive nonspecific white matter changes. She was diagnosed with diabetes in July 2022 and had a pacemaker placed. She was seen by Dr. Halina Kevin at in September 2022 and was not felt to have multiple sclerosis. An MRI L-spine was performed at [facility] 04/24/2025 and there is a broad-based disc bulge at L3-4 with mild central canal stenosis and disc bulges at other levels. She was seen by Dr. Piper with Neurosurgery04/27/2025 who reviewed the MRI L-spine and noted she sees Dr. Banerjee at [facility]. She was encouraged to continue follow-up with Dr. Banerjee. It was discussed that when last seen by Dr. Schultz in 2022 she was on combination therapy with zonisamide and lamotrigine, which is a question she had asked earlier. Therefore, the reason she is on2 anticonvulsant medications is because it takes this combination for her to be seizure-free. It was also discussed that no further changes should be made to the lamotrigine and she agreed to stay onthe lamotrigine. When seen 12/2024, it was noted she has increased skin sensitivity and has had a negative reaction to gabapentin in the past after taking it for 3 weeks; it caused swelling and confusion. Therefore, after discussion, a low-dose of pregabalin will be started, 25 mg twice daily. She notes cognitive changes which may be attributable to fibromyalgia but will be referred to T[facility] Lomeli for neurocognitive testing and Kristina Rivera for neurocognitive rehabilitation. She remains seizure-free and it was again discussed to remain on the combination of [place] and lamotrigine. She is having worsening right carpal tunnel symptoms and will be referred to Dr. Gagandeep Gonzalez. She has been counseled in the past not to drive for 90 days by [employer] law following a seizure. She will be seen back in 3 months. Including assessment, discussion, and documentation, 30 minutes total time were spent on this appointment. Lino Solis MD 08/21/2025 NUE STAMPER NUE STAMPER documented in this encounter Plan of Treatment Upcoming Encounters Date Type Department Care Team (Late st Contact Info) Description 12/26/2025 10:00 AM EDT Office Visit [facility] - [address] [place] [id number] Lino Solis MD [address] [place] [address] Scheduled Referrals Name Type Priority Associated Diagnoses Orde r Schedule Ambulatory referral to Orthopedic Surgery Outpatient Referral Routine Right carpal tunnel syndrome Ordered: 08/21/2025 Ambulatory referral to Behavioral Health Outpatient Referral Routine Cognitive change Ordered: 08/21/2025 AMB REFERRAL TO SPEECH THERAPY EVALUATE, TREAT, AND PLAN OF CARE Outpatient Referral Routine Cognitive communication deficit Ordered: 08/21/2025 documented as of this encounter Visit Diagnoses Diagnosis Fibromyalgia- Primary Unspecified myalgia and myositis Partial seizure disorder (HCC) Localization-related (focal) (partial) epilepsy and epileptic syndromes with simple partial seizures, without mention of intractable epilepsy Degenerative disc disease, cervical Cognitive change Right carpal tunnel syndrome Carpal tunnel syndrome Migraine without aura and without status migrainosus, not intractable Degenerative disc disease, lumbar RLS (restless legs syndrome) Restless legs syndrome (RLS) High risk medication use Cognitive communication deficit documented in this encounter Care Teams Inspector And Mender Relationship Specialty Start Date End Date Tanna Finch APRN [address] [place] [id number] PCP - General Nurse Practitioner 11/04/24 documented as of this encounter
--- OUTSIDE RECORDS SUMMARY | 2025-08-22 14:30 | XMS_ITS | Encounter Summary ---
Author Organization [facility] Address [address] [place] [address] Care Team Providers Care Fashion Adviser Name Role Phone System, Provider Not In Primary Care Provider Un available Reason for Visit * Reason Comments Edema Encounter Details Date Type Department Care Team (Latest Contact Info) Description 08/22/2025 2:30 PM EST Office Visit [facility] CARDIOLOGY [address] [place] [address] Sophy Mcgraw APRN [address] [place] [address] Swelling of lower extremity (Primary Dx); Shortness of breath; Primary hypertension; Pacemaker; BRENDA (obstructive sleep apnea); Nonrheumatic mitral valve regurgitation; Chronic diastolic (congestive) heart failure; Pure hypercholesterolemia Social History Tobacco Use Types Packs/Day Years Used Date Smoking Tobacco: Every Day Cigarettes 1.5 41.3 Passive Smoke Exposure: Current Smokeless Tobacco: Never Tobacco Cessation:Ready to Q uit: Not Asked; Counseling Given: Not Answered Comments:Patient trying to quit. Alcohol Use Standard [...] or training? Not on file Preferred Language Luxembourger 03/03/2024 PHQ-2 Answer Date Recorded Retired PHQ-9: [...] Sign Reading Time Taken Comments Blood Pressure 128/72 08/22/2025 2:19 PM EST Pulse 83 08/22/2025 2:19 PM EST Temperature - - Respiratory Rate - - Oxygen Saturation 93% 08/22/2025 2:19 PM EST Inhaled Oxygen Concentration - - Weight 121 kg (267 lb) 08/22/2025 2:19 PM EST Height 162.6 cm (5' 4 ) 08/22/2025 2:19 PM EST Body Mass Index 45.83 08/22/2025 2:19 PM EST documented in this encounter Progress Notes * Sophy Mcgraw APRN - 08/22/2025 2:30 PM ESTAssociated Problem(s): Swelling of lower extremity * Sophy Mcgraw APRN - 08/22/2025 2:30 PM ESTAssociated Problem(s): Shortness of breath * Sophy Mcgraw APRN - 08/22/2025 2:30 PM ESTAssociated Problem(s): Hypertension {Hypertension is (optional):[id number]} * Sophy Mcgraw APRN - 08/22/2025 2:30 PM ESTAssociated Problem(s): Pacemaker * Sophy Mcgraw APRN - 08/22/2025 2:30 PM ESTAssociated Problem(s): BRENDA (obstructive sleep apnea) * Sophy Mcgraw APRN - 08/22/2025 2:30 PM ESTAssociated Problem(s): Chronic diastolic (congestive) heart failure {CHF (Optional):05065} Orders: XR Chest 2 View * Sophy Mcgraw APRN - 08/22/2025 2:30 PM EST Images from the original note were not included. [facility] Provider Note Date: 08/22/2025 Name: Frannie Nuñez : 1970 PCP: System, Provider Not In Chief Complaint Patient presents with Edema Subjective History of Present Illness Frannie Nuñez is a 55 y.o. female who presents today for follow-up of lower extremity swelling. At last visit on 07/26/2025 patient was ordered to have BNP, chest x-ray, and BMP. BMP yesterday wasnormal, potassium 4.0, BUN 16, and Creat 0.9. Chest Xray on 07/26/2025 was normal. She reports lower extremity swelling and shortness of breath have improved. She denies any chest pain or dizziness. Patient did see Dr. Ferguson approximately 3 weeks ago and told her she did not have any blood clots in her legs she did have some hardening of the arteries. Is having a carotid duplex on 09/05/2025. Cardiac/Sleep history 1. Hypertension 2. Congestive heart [...] present. ?? Mild pulmonary hypertension is present. *[facility] 01/15/23- Angiographically normal coronary arteries. Normal [...] tablet by mouth Daily., Disp: , Rfl: atorvastatin (LIPITOR) 80 MG tablet, Take 1 tablet by mouth [...] A DAY, Disp: 30 tablet, Rfl: 3 desvenlafaxine (PRISTIQ) 50 MG 24 hr tablet, [...] MG tablet, Take 1 tablet by mouth Every 12 (Twelve) Hours., Disp: , Rfl: fluticasone (FLONASE) 50 MCG/ACT nasal spray, USE 2 SPRAYS IN EACH NOSTRIL ONCE A DAY NEEDED FORALLERGIES, Disp: 16 g, Rfl: 3 folic acid (FOLVITE) 1 MG tablet, Take 1 tablet by mouth Daily., Disp: , Rfl: furosemide (LASIX) 20 MG [...] No sig reported), Disp: , Rfl: nicotine (NICODERM CQ) 21 MG/24HR patch, APPLY ONE PATCH TO SKIN EVERY DAY REMOVE OLD PATCH BEFORE APPLYING NEW PATCH, Disp: , Rfl: Nurtec 75 MG dispersible tablet, Take 75 tablets by mouth As Needed. As needed, Disp: , Rfl: nystatin (MYCOSTATIN) [id number] UNIT/GM powder, Apply topically to the appropriate area as directed 3 (Three) Times a Day., Disp: 60 g, Rfl: 1 ondansetron ODT (ZOFRAN-ODT) 4 MG disintegrating tablet, DISSOLVE 2 TABLETS ON THE TONGUE 2 TIMES ADAY NEEDED, Disp: , Rfl: Ozempic, 0.25 or 0.5 MG/DOSE, 2 MG/3ML solution pen-injector, INJECT 0.5 MG SUBCUTANEOUSLY ONCE WEEKLY, Disp: , Rfl: pregabalin (LYRICA) 25 MG capsule, Take 1 capsule by mouth., Disp: , Rfl: QUEtiapine (SEROquel) 50 MG tablet, , Disp: , Rfl: Restasis 0.05 % ophthalmic emulsion, instill 1 drop into THE affected eye(s) 2 TIMES A DAY, Disp: ,Rfl: rOPINIRole (REQUIP) 2 MG tablet, Take 2 tablets by mouth every night at bedtime., Disp: , Rfl: spironolactone (ALDACTONE) 25 MG tablet, Take 1 tablet by mouth Daily., Disp: 30 tablet, Rfl: 11 Trelegy Ellipta 100-62.5-25 MCG/ACT inhaler, , Disp: , Rfl: vitamin B-12 (CYANOCOBALAMIN) 1000 MCG tablet, TAKE 1 TABLET BY MOUTH ONCE A DAY BEFORE MEAL, Disp:, Rfl: zonisamide (ZONEGRAN) 100 MG capsule, Take 530 mg by mouth 3 (Three) Times a Day., Disp: , Rfl: Past Medical History: Diagnosis Date Acute sinusitis, unspecified Arthropathy of cervical spine Asthma Atherosclerosis of other arteries Bronchitis, chronic Candidiasis of skin and nail Candidiasis of vulva and vagina Chest pain, unspecified Chronic diastolic (congestive) heart failure Chronic obstructive pulmonary disease, unspecified Congenital heart disease Degenerative disc disease, cervical Depression Dyspepsia Dysphasia Dyspnea, unspecified Dysthymic disorder Elevated cholesterol Fibromyalgia Foot drop, bilateral Gastritis Generalized anxiety disorder Heart valve disease Hiatal hernia Hidradenitis suppurativa History of nuclear [...] Heart Cath; Surgeon: Burt Roman MD; Location: [facility]; Service: Cardiovascular; Laterality: N/A; CARDIAC ELECTROPHYSIOLOGY PROCEDURE N/A 08/12/2022 Procedure: DEVICE IMPLANT; Surgeon: Daphney Anton MD; Location: [facility] EP INVASIVE LOCATION; Service: Cardiology; Laterality: N/A; CARPAL TUNNEL RELEASE Bilateral CERVICAL SPINE SURGERY X2 COLONOSCOPY 12/26/2020 Diverticulosis left side, 1.2 cm adenoma with hyperplastic polyps, 5-year follow-up recommended COLONOSCOPY 01/11/2025 ENDOSCOPY HYSTERECTOMY 2003 Secondary to endometriosis, prior Pap smears normal INSERT / REPLACE / REMOVE PACEMAKER INTERSTIM PERC TEST Bilateral 07/16/2023 Procedure: AXONICS [...] Dr rj anton Family History Problem Relation Name Age of Onset Mental illness Mother Mary Glaucoma Mother Mary Hyperlipidemia Mother Mary Hypertension Mother Mary Anemia Mother Mary Heart attack Father Coronary artery disease Father 50 CABG Hypertension Brother Christiano Jr Other Brother Christiano Jr GLUCOSE INTOLERANCE Hyperlipidemia Brother Christiano Jr Hypertension Brother Other Brother GLUCOSE INTOLERANCE Hypertension Brother Social History Socioeconomic History Marital status: Tobacco Use Smoking status: Every Day Current packs/day: 2.00 Average packs/day: 1.5 packs/day for 41.3 years (60.0 ttl pk-yrs) Types: Cigarettes Passive exposure: Current Smokeless tobacco: Never Tobacco comments: Patient trying to quit. Vaping Use Vaping status: Never Used Substance and Sexual Activity Alcohol use: Not Currently Drug use: Never Sexual activity: Not Currently Partners: Male Objective Vital Signs: BP 128/72 (BP Location: Right arm, Patient Position: Sitting, Cuff Size: Large Adult) Pulse 83 Ht 162.6 cm (64 ) Wt 121 kg (267 lb) SpO2 93% BMI 45.83 kg/m?? Estimated body mass index is 45.83 kg/m?? as calculated from the following: Height as of this encounter: 162.6 cm (64 ). Weight as of this encounter: 121 kg (267 lb). Physical Exam Constitutional: Appearance: Normal appearance. [...] Content: Thought content normal. Assessment and Plan Assessment & Plan Swelling of lower extremity Shortness of breath Primary hypertension Pacemaker BRENDA (obstructive sleep apnea) Nonrheumatic mitral valve regurgitation Chronic diastolic (congestive) heart failure Orders: XR Chest 2 View Pure hypercholesterolemia Swelling of lower extremity - Lower extremity swelling much improved.- -Continue spironolactone - BMP yesterday was normal revealing potassium 4.0, BUN 16, creatinine 0.9 2. Shortness of breath - Chest x-ray was negative on 07/26/2025 - She reports shortness of breath has much improved 3. Hypertension - BP stable today - continue medical regimen spironolactone 25 mg daily, carvedilol 12.5 mg twice daily 4. Pacemaker - Pacemaker was checked in July revealing good battery and lead function 5. BRENDA - Pap DL reviewed, good compliance and control. Benefiting from pap therapy and plan to continue. - Download reviewed patient is wearing PAP machine at 100%, average use is 6 hours and 1 minute, AHI was 0.9 6. Mitral valve regurgitation - Echo was updated on 03/01/2025 that revealed mild to moderate mitral valve regurgitation 7. Chronic diastolic heart failure - Echo updated on 03/01/2025 - Continue medical regimen; carvedilol, Lasix, and spironolactone 8. Hypercholesterolemia - Lipid panel on 03/08/2025 revealed LDL 72, total cholesterol 145, triglycerides 143 - Continue atorvastatin 80 mg daily Patient return to clinic in 4 months for pacemaker check Recommendations: Report if any new/changing symptoms immediately, Limit salt, Elevate legs, Stop cigarettes, Sleep risks reviewed (driving, medical, sleep , sedating agents), and Sleep hygiene discussed Follow Up Return in about 4 months (around 12/20/2025) for PM/ICD Check. Sophy Mcgraw APRN Cardiology and Sleep [facility] 08/22/2025 Please note that this explicitly excludes time spent on other separate billable services such as performing procedures or test interpretation, when applicable. documented in this encounter Plan of Treatment Upcoming Encounters Date Type Department Care Team (Late st Contact Info) Description 11/13/2025 11:00 AM EST Office Visit [facility] CARDIOLOGY [address] [place] [phone] Daphney Anton MD [address] [place] [address] 11/13/2025 11:00 AM EST Clinical Support No Requirements [facility] CARD[facility] [address] [place] [address] [place] [phone] 12/20/2025 1:30 PM EST Office Visit [facility] CARDIOLOGY [address] [place] [address] [place] [phone] Daphney Anton MD [address] [facility] [place] [address] 12/20/2025 1:30 PM EST Clinical Support No Requirements [facility] C[facility] [address] [place] [address] [place] [phone] documented as of this encounter Procedures Procedure Name Priority Date/Time Associated Diagnosis Comments XR CHEST 2 VW Routine 08/22/2025 Chronic diastolic (congestive) heart failure documented in this encounter Results * XR Chest 2 View (08/22/2025) Anatomical Region Laterality Modality Body N/A Radiographic Amanda ging Sophy Mcgraw APRN IMG DIAGNOSTIC IMAGING ORD ERABLES Final Result documented in this encounter Visit Diagnoses Diagnosis Swelling of lower extremity- Primary Shortness of breath Primary hypertension Unspecified essential hypertension Pacemaker Cardiac pacemaker in situ BRENDA (obstructive sleep apnea) Obstructive sleep apnea (adult) (pediatric) Nonrheumatic mitral valve regurgitation Chronic diastolic (congestive) heart failure Pure hypercholesterolemia documented in this encounter Additional Health Concerns Assessment Noted Time PHQ-2 Depression Total Score: 3 07/18/20 24 11:28 AM EDT documented as of this encounter Care Teams Fashion Adviser Relationship Specialty Start Date End Date System, [place] [address] PCP - General 02/14/25 documented as of this encounter
--- OUTSIDE RECORDS SUMMARY | 2025-08-23 06:04 | XMS_ITS | Continuity of Care Document ---
Author Organization [facility] Phone Care Team Providers Care Aircraft Rigging And Controls Mechanic Name Role Phone DARON CALVIN Admitting Unavailable DARON CALVIN Primary Attending Unavailable BULMARO RODRIGUEZ Primary Care DARON CALVIN Unavailable Unavailable ALLERGIES AND ADVERSE REACTIONS ALLERGIES AND ADVERSE REACTIONS Code System Allergy Substance Adverse Reaction Date Reaction (Severity) Comment Status Reported By Updated By [id number] RXNorm Diphenhydramine Adverse reaction to substance (Mild) pt active [id number] on April 23, 2024 7:56:36 PM UT Tetanus Toxoids Adverse reaction to substance Not Specified active [id number] on April 23, 2024 7:56:36 PM UT FAMILY HISTORY RELATION: Father Status: Cause of : Unknown Age at : Unknown SNOMED-CT Diagnosis Age At Onset [id number] Heart disease RELATION: Mother Status: LIVING SNOMED-CT Diagnosis Age At Onset [id number] Hypertensive disorder RESULTS Patient: RAI Villalobos Date of : [birth year] 3 LABORATORY RESULTS ORDER 200: BASIC METABOLIC P MARIAMA (LOINC: 54908-2) ORDER DATE: August 21, 2025 3:26:00 PM UTC Specimen Source: Serum/Plasm a Specimen Type: Acellular blo od (serum or plasma) specimen PERFORMING LAB: [address] [id number] Result Comment: Final Result Date: August 21, 2025 3:42:00 PM UT (TECH: MRB) LOINC TEST FLAG RESULT REFERENCE RANGE UPDA JAYY BY 2951-2 Sodium [Moles/volume ] in Serum or Plasma N 139 mmol/L 136 mmol/L - 145 mmol/L August 21, 2025 3:42:00 PM UTC (TECH: MRB) 2823-3 Potassium [Moles/volume] in Serum or Plasma N 4.0 mmol/L 3.5 mmol/L - 5.1 mmol/L August 21, 2025 3:42:00 PM UTC (TECH: MRB) 5-0 Chloride [Moles/volu me] in Serum or Plasma N 105 mmol/L 98 mmol/L - 107 mmol/L August 21, 2025 3:42:00 PM UTC (TECH: MRB) 2027-9 Carbon dioxide, tota l [Moles/volume] in Serum or Plasma N 25 mmol/L 21 mmol/L - 32 mmol/L August 21, 2025 3:42:00 PM UTC (TECH: MRB) 11594-9 Anion gap 3 in Serum or Plasma N 9.0 August 21, 2025 3:42:00 PM UTC (TECH: MRB) 2345-7 Glucose [Mass/volume ] in Serum or Plasma N 110 mg/dL 70 mg/dL - 110 mg/dL August 21, 2025 3:42:00 PM UTC (TECH: MRB) 3094-0 Urea nitrogen [Mass/volume] in Serum or Plasma N 16 mg/dL 7 mg/dL - 18 mg/dL August 21 3:42:00 PM UTC (TECH: MRB) 2160-0 Creatinine [Mass/volume] in Serum or Plasma N 0.9 mg/dL 0.6 mg/dL - 1.0 mg/dL August 21, 2025 3:42:00 PM UTC (TECH: MRB) 3097-3 Urea nitrogen/Creatinine [Mass Ratio] in Serum or Plasma N 17.8 9 - August 21, 2025 3:42:00 PM UTC (TECH: MRB) 71497-9 Glomerular filtratio n rate/1.73 sq M.predicted by Creatinine-based formula (MDRD) N 75 mL/min >60 August 21, 2025 3:42:00 PM UTC (TECH: MRB) 28777-3 Osmolality of Serum or Plasma by calculated by sum of electrolytes N 291 mosm/kg 275 mosm/kg - 301 mosm/kg August 21, 2025 3:42:00 PM [facility] (TECH: MRB) 79532-3 Calcium [Mass/volume ] in Serum or Plasma N 8.8 mg/dL 8.5 mg/dL - 10.1 mg/dL August 21, 2025 3:42:00 PM [facility] (TECH: MRB) LABORATORY NARRATIVE RESULTS Information is [...] Effective Dates Offered Cessation Comment Updated By [id number] Historical Tobacco smoking status Current Every Day Smoker [id number] on April 23, 2024 8:50:19 PM [facility] [id number] Historical Tobacco smoking status Never Smoked [id number] on February 26, 2023 8:24:02 PM [facility] [id number] Historical Tobacco smoking status Unknown If Ever Smoked [id number] on July 25, 2013 11:27:36 PM [facility] SOCIAL HISTORY - Gender Sex: Female SOCIAL HISTORY - Status : status i nformation is not available Intention in Next Year: intention information is not available SOCIAL HISTORY - Assessments Code System Description Status Date Value of Assessment Updated By Comment Assessment Information is no t available SOCIAL HISTORY - Teller Affiliation Teller information is not av ailable SOCIAL HISTORY [...] ENCOUNTER INFORMATION Reason for Visit I50.32 Admission August 21, 2025 3:17:[address] Discharge August 21, 2025 3:17:00 PM [facility] DISCHARGED TO HOME OR SELF CARE ENCOUNTER DIAGNOSES Notes information is not william ilable. Code System Diagnosis Onset Date Diagnosis information is not available. ABSTRACT DIAGNOSES Code System Diagnosis Updated By Abatement Date I50.32 ICD10 CHRONIC DIASTOLI C (CONGESTIVE) HEART FAILURE [id number] on August 23, 2025 11:03:34 AM UT I50.32 ICD10 CHRONIC DIASTOLI C (CONGESTIVE) HEART FAILURE [id number] on August 23, 2025 11:03:37 AM [facility] CARE TEAM Care Aircraft Rigging And Controls Mechanic Role DARON CALVIN Admitting DARON CALVIN Primary Attending BULMARO RODRIGUEZ Primary Care DARON CALVIN Referring CARE TEAM CARE senior director of global commercial technology solutions Role on Team Location Telecom Status Start Date End Yannick e Updated By MICHAEL CHAMBERLAIN APRN PCP normal August 21, 2025 5:00:00 AM [facility] August 21, 2025 3:17:00 PM [facility] [id number] on August 21, 2025 3:19:12 PM [facility] MARIXA NERI Referring normal August 21, 2025 5:00:00 AM [facility] August 21, 2025 3:17:00 PM [place] [id number] on August 21, 2025 3:19:12 PM [facility] MARIXA NERI Attending normal August 21, 2025 5:00:00 AM [facility] August 21, 2025 3:17:00 PM [place] [id number] on August 21, 2025 3:19:12 PM [facility] MARIXA NERI Admitting normal August 21, 2025 5:00:00 AM [facility] August 21, 2025 3:17:00 PM [place] [id number] on August 21, 2025 3:19:12 PM [facility]
--- OUTSIDE RECORDS SUMMARY | 2025-08-28 14:00 | XMS_ITS | Encounter Summary ---
Author Organization [employer] ([place], [place], [place], [place], [place]) Address [address] [place] [address] Care Team Providers Care Pain Coordinator Name Role Phone Tanna Finch APRN Primary Care Provid er Reason for Visit * Reason Comments New patient Viola wrist pain R>L * Surgical (Routine) - Closed Specialty Diagnoses / Procedures Referred By Michael yao Referred To Contact Orthopedic Surgery Diagnoses Right carpal tunnel syndrome Lino Solis MD [address] [facility] [address] [place] [address] Phone: tel: fax: [facility] Orthoped[facility] [address] [place] [address] Phone: tel: fax: Referral ID Status Reason Start Date Expiration Date V isits Requested Visits Authorized [id number] Closed Specialty Services Required 08/21/2025 08/21/2026 1 1 Encounter Details Date Type Department Care Team (Late st Contact Info) Description 08/28/2025 2:00 PM EST Office Visit [facility] [address] [place] [address] Kaushik London PA-C [address] [facility] [address] [place] [address] Bilateral carpal tunnel syndrome (Primary Dx); Cubital [...] Date Joseph rded Speak language other than North Korean at home Not on file 11/06/2023 Want [...] 2:30 PM EST documented in this encounter Progress Notes * Kaushik London PA-C - 08/28/2025 2:00 PM EST Subjective: Frannie Nuñez is a 55 y.o. female. Tanna Finch* Work Comp []Yes [x]No Hand Dominance: right-handed Employment: Disabled Chief Complaint Patient presents with New patient Viola wrist pain R>L Patient presents today with c/o viola wrist pain. She feels right is much more symptomatic than left.Ongoing for several months and continues to worsen. She does occasionally feel numbness/tingling inright hand; most often with over-use such as driving all day. She does wake up at times with right hand numb and tingling. She has underwent CTR on viola wrist - she believes in 1993. Describes pain through mid aspect of viola wrist as dull aching - right 6/10 left /10. No recent treatment. Mop Worker RT 40,LT 51 Willis pinch RT 15, [...] / REMOVE PACEMAKER JOINT REPLACEMENT NECK SURGERY [place] PRQ IMPLTJ NSTIM ELECTRODE ARRAY EPIDURAL REPLACEMENT [...] [facility]MC Tenderness []+ []- []+ []- 1st SAIL CUTTER Grind []+ []- []+ []- Haydee Nodes [...] factors. Patient will follow-up with PCP for alf treatment plan. I have examined and questioned the above listed patient and provided or received all documentation,establishing, confirming, and revising as necessary, the findings and statements noted. . EMR/Dragon/Rfid Analyst disclaimer: Much of this encounter note is an electronic vegetable vendor/translation of spoken language to printed text. The electronic translation of spoken language may permit erroneous, or at times, nonsensical words or phrases to be inadvertently transcribed; Although thenote is reviewed for such errors, some may still exist. OLOGICAL PHYSIOTHERAPIST documented in this encounter Plan of Treatment Upcoming Encounters Date Type Department Care Team (Late st Contact Info) Description 12/26/2025 10:00 AM EDT Office Visit [facility] Neurology - [address] [facility] [address] [place] [phone] Lino Solis MD [address] [place] [address] [address] [place], [place] [id number] Scheduled Orders Name Type Priority Associated Diagnoses Orde r Schedule EMG W/ NCS Neurology Routine Bilateral carpal tunnel syndrome Cubital tunnel syndrome, bilateral Expected: 09/11/2025, Expires: 09/27/2026 documented as of this encounter Visit Diagnoses Diagnosis Bilateral carpal tunnel syndrome- Primary Carpal tunnel syndrome Cubital tunnel syndrome, bilateral documented in this encounter Care Teams Pain Coordinator Relationship Specialty Start Date End Date Tanna Finch APRN [address] [place] [address] PCP - General Nurse Practitioner 11/04/24 documented as of this encounter
--- OUTSIDE RECORDS SUMMARY | 2025-08-28 21:03 | XMS_ITS | Continuity of Care Document ---
Author Organization [facility] Phone Care Team Providers Care Computational Physicist Name Role Phone NO, DEFINED P Unavailable Unavailable NO, DEFINED P Primary Care Unavailable CASE, CLIF Villalobos Admitting CASE, CLIF Villalobos Primary Attending CASE, CLIF Villalobos Surgeon ALLERGIES AND ADVERSE REACTIONS ALLERGIES AND ADVERSE REACTIONS Code System Allergy Substance Adverse Reaction Date Reaction (Severity) Comment Status Reported By Updated By 3498 RXNorm BENADRYL Rash HIVES active [id number] on December 14, 2024 3:16:14 PM UTC TETANUS TOXOIDS Rash HIVES active LOW4504 on December 14, 2024 3:16:14 PM UTC 6676 RXNorm MECLIZINE Adverse reaction to substance (Moderate) anxiety, hyperactivi tiy active [id number] on December 14, 2024 3:16:14 PM UTC adhesive tape (Free Text Allergy) Rash active [id number] on December 14, 2024 3:28:48 PM [place] [id number] SNOMED CT Sulfa Antibiotics Drug-induced nausea and vomiting (Moderate) active MHG6409 on August 10, 2025 5:59:13 PM UTC 02146 RXNorm Gabapentin Anaphylaxis due to substance active HOL3162 on August 10, 2025 5:59:26 PM UTC FAMILY HISTORY RELATION: Father Status: Cause of : Unknown Age at : 63 SNOMED-CT Diagnosis Age At Onset [id number] Heart disease RELATION: Mother Status: LIVING SNOMED-CT Diagnosis Age At Onset [id number] Hypertensive disorder RESULTS Patient: RAI Villalobos Date of : [birth year] LABORATORY RESULTS ORDER 200: MISC LAB TEST (LO INC: 45810-2) ORDER DATE: August 14, 2025 7:49:00 PM UTC Specimen Source: EGD Specimen Type: Esophagogastr oduodenoscopy PERFORMING LAB: [address] [id number] Result Comment: August 28, 2025 7:28:00 AM UTC SEE ATTACHED REPORT Result Comment: August 28, 2025 7:28:00 AM UTC [facility] DIR: SIMON CASTRO, PHD Result Comment: August 28, 2025 7:28:00 AM UTC [address] [place] [address] Final Result Date: August 28, 2025 7:28:00 AM UTC (TECH: AY) LOINC TEST [place] [address]-2 Referral lab test [Identifier] N SEE REPORT August 28 7:28:00 AM UTC (TECH: AY) ORDER 400: GLUCOSE BEDSIDE T ESTING (LOINC: 28840-3) ORDER DATE: August 14, 2025 6:20:00 PM UTC Specimen Source: WHOLE BLOOD Specimen Type: Whole blood s ample PERFORMING LAB: [address] [id number] Result Comment: August 16, 2025 11:51:00 AM UT Test performed by: [id number] ; Instrument: [id number] Final Result Date: August 16, 2025 11:51:00 AM UTC LOINC TEST [place] [address]-0 Glucose [Mass/volume ] in Capillary blood by Glucometer N 88 mg/dl 70 mg/dl - 105 mg/dl August 16, 2025 11:51:00 AM UTC LABORATORY NARRATIVE RESULTS Information is not available RADIOLOGY RESULTS Information is not available PATHOLOGY NARRATIVE RESULTS ORDER 300: PATHOLOGY SPECIME N (LOINC: 20870-6) ORDER DATE: August 14, 2025 7:49:00 PM UTC Specimen Source: PATH Specimen Type: Refer to path ology laboratory PERFORMING LAB: [address] [id number] Final Result Date: July 202024 7:57:00 PM UTC TEST: PATHOLOGY SPECIMEN MICROBIOLOGY RESULTS No Micro Labs/Results Exist for Patient BLOOD ADMIN RESULTS Information is not available MEDICATIONS HOME MEDICATIONS Status RXNORM [facility] Medication Dose Route Frequency Dates Comments Reported By Updated By Active [id number] 02486 30018 8 Albuterol Sulfate HFA Inhalation Aerosol Solution 108 (90 Base) MCG/ACT 2.0 PUF ORAL Q4HPRN Last Dose: PATIENT [id number] on August 10, 2025 6:00:42 PM [facility] Active 97435 34268 1 Aspirin 81 Oral Tablet Delayed Release 81 MG 1.0 TAB ORAL DAILY Last Dose: [facility] 2024 1:00:0 0 PM [facility] PATIENT [id number] on August 14, 2025 6:05:05 PM [facility] Active 667785 75551 48917 1 Carvedilol Oral Tablet 12.5 MG 1.0 TAB ORAL BID Last Dose: [facility] 2024 11:30: 00 AM [facility] PATIENT [id number] on August 14, 2025 6:05:44 PM [facility] Active 5127730 81359 62335 1 Cetirizine HCl Oral Tablet 10 MG 1.0 TAB ORAL DAILY Last Dose: [facility] 2024 1:00:0 0 AM [facility] PATIENT [id number] on August 14, 2025 6:05:55 PM [facility] Active 0748309 22280 78019 1 Emgality Subcutaneous Solution Auto-injecto r 120 MG/ML 120.0 MG SUBCUT ANEOUS QMONTH Last Dose: PATIENT [id number] on August 10, 2025 6:03:01 PM [facility] Active 16384 67330 7 Fluticasone Propionate Diskus Inhalation Aerosol Powder Breath Activated 50 MCG/ACT 1.0 SPR NASAL DAILYPRN Last Dose: [facility] 2024 1:00:0 0 PM [facility] PATIENT [id number] on August 14, 2025 6:07:13 PM [facility] Active 506084 93219 56525 5 Furosemide Oral Tablet 20 MG 1.0 TAB ORAL DAILYPRN Last Dose: [facility] 2024 1:00:0 0 PM [facility] PATIENT [id number] on August 14, 2025 6:07:22 PM [facility] Active 997847 21725 17224 3 Ondansetron Oral Tablet Disintegrati ng 4 MG 2.0 TAB ORAL BIDPRN Last Dose: [facility] 2024 10:00: 00 PM [facility] PATIENT [id number] on August 14, 2025 6:08:52 PM [place] Active 802622 99822 88433 3 rOPINIRole HCl ER Oral Tablet Extended Release 24 Hour 2 MG 2.0 TAB ORAL QPM Last Dose: [facility] 2024 1:00:0 0 AM [facility] PATIENT [id number] on August 14, 2025 6:10:08 PM [facility] Active 8158299 78974 19474 0 Trelegy Ellipta Inhalation Aerosol Powder Breath Activated 100-62.5-25 MCG/ACT 1.0 PUF INHALA TION DAILY [facility] 1:00:0 0 PM [place] PATIENT [id number] on August 14, 2025 6:10:59 PM [facility] Active 436683 72921 93520 0 Atorvastatin Calcium Oral Tablet 80 MG 1.0 TAB ORAL DAILY Last Dose: [facility] 2024 1:00:0 0 AM [facility] PATIENT [id number] on August 14, 2025 6:05:14 PM [facility] Active 435398 76631 02144 0 Baclofen Oral Tablet 10 MG 1.0 TAB ORAL QIDPRN Last Dose: [facility] 2024 1:00:0 0 AM [facility] PATIENT [id number] on August 14, 2025 6:05:26 PM [facility] Active 194828 15341 15581 5 Restasis MultiDose Ophthalmic Emulsion 0.05 % 1.0 DRP OPHTHA LMIC BID Last Dose: [facility] 2024 1:00:0 0 AM [facility] [id number] on August 14, 2025 6:09:58 PM [facility] Active 982752 40073 40466 1 Spironolacto ne Oral Tablet 25 MG 1.0 TAB ORAL DAILY Last Dose: [facility] 2024 1:00:0 0 AM [facility] PATIENT [id number] on August 14, 2025 6:10:18 PM [facility] Active 192653 12860 15657 0 Desvenlafaxi ne ER Oral Tablet Extended Release 24 Hour 50 MG 1.0 TAB ORAL DAILY Last Dose: [facility] 2024 1:00:0 0 AM [facility] PATIENT [id number] on August 14, 2025 6:06:06 PM [facility] Active 075462 62611 83694 0 Dexlansopraz ole Oral Capsule Delayed Release 60 MG 1.0 CAP ORAL DAILY Last Dose: [facility] 2024 1:00:0 0 AM [facility] PATIENT [id number] on August 14, 2025 6:06:23 PM [facility] Active 657324 20137 14134 1 lamoTRIgine ER Oral Tablet Extended Release 24 Hour 200 MG 1.0 TAB ORAL DAILY Last Dose: [facility] 2024 1:00:0 0 AM [facility] PATIENT [id number] on August 14, 2025 6:07:34 PM [facility] Active 6698121 20177 63573 1 Ozempic (1 MG/DOSE) Subcutaneous Solution Pen-injector 4 MG/3ML 1.0 MG SUBCUT ANEOUS QTUES Last Dose: [facility] 2024 12:00: 00 PM [facility] PATIENT [id number] on August 14, 2025 6:09:09 PM [facility] Active 1997485 69371 94234 0 Linzess Oral Capsule 72 MCG 1.0 CAP ORAL DAILY Last Dose: [facility] 2024 1:00:0 0 PM [facility] PATIENT [id number] on August 14, 2025 6:07:44 PM [facility] Active 131282 02077 46587 0 Methocarbamo l Oral Tablet 500 MG 2.0 TAB ORAL Q6HPRN Last Dose: [facility] 2024 5:00:0 0 PM [facility] PATIENT [id number] on August 14, 2025 6:07:55 PM [facility] Active 97136 16413 8 Nicotine Step 1 Transdermal Patch 24 Hour 21 MG/24HR 1.0 PAT TRANSD ERMAL DAILYPRN Last Dose: [facility] 2024 1:00:0 0 PM [facility] PATIENT [id number] on August 14, 2025 6:08:20 PM [facility] Active 6601896 40448 66397 2 Nurtec Oral Tablet Disintegrati ng 75 MG 1.0 TAB ORAL DAILYPRN Last Dose: PATIENT [id number] on August 10, 2025 6:52:47 PM [facility] Active 976725 26284 14472 7 QUEtiapine Fumarate ER Oral Tablet Extended Release 24 Hour 50 MG 2.0 TAB ORAL BEDTIME Last Dose: [facility] 2024 1:00:0 0 AM [facility] PATIENT [id number] on August 14, 2025 6:09:46 PM [facility] Active 017883 46743 66406 5 Nystop External Powder 144350 UNIT/GM 1.0 THADDEUS TOPICA L TIDPRN Last Dose: [facility] r 2024 1:00:0 0 PM [place] PATIENT [id number] on August 14, 2025 6:08:38 PM UT Active FreeT extMe d morphine 0.0 SQL DBA Last Dose: Unsure of dosage PATIENT [id number] on August 10, 2025 7:02:36 PM [facility] Active 083468 00737 67526 8 traMADol HCl Oral Tablet 50 MG 1.0 TAB ORAL PRN Last Dose: [facility] 2024 1:00:0 0 PM UT [id number] on August 14, 2025 6:12:00 PM [facility] Active 548337 97631 60547 1 Zonisamide Oral Capsule 100 MG 3.0 TAB ORAL BEDTIME Last Dose: [facility] 2024 1:00:0 0 AM [facility] [id number] on August 14, 2025 6:13:18 PM [facility] DISCHARGE MEDICATIONS Status RXRM [facility] Medication Dose Route Frequency Dates Dis pense Data Comments Physician Updated By No Discharge Medication Info rmation Available INPATIENT MEDICATIONS Status [facility] Medication Dose Route Frequency Rat e Quantity Dates Indication Dispense Data Comments Physician Updated By Discont inued 577286 6135 8013 704 LACTATED RINGERS SOLN 1000. 0 ML INTRAV ENOUS ONE TIME ADMINISTRA TION (UNSCHEDUL ED) 25.0 ML/HR [facility]: [facility] 20[facility] 12:25: 00 PM UT End: [facility] 2024 1:39:0 0 AM [facility] DARNELL JOAQUIM [id number] on August 15, 2025 4:25:00 AM UT Discont inued 1900493 0033 8004 904 sodium chloride 0.9% SOLN 1000. 0 ML INTRAV ENOUS ONE TIME ADMINISTRA TION (UNSCHEDUL ED) 25.0 ML/HR Start: [facility] 2024 12:25: 00 PM [facility] End: [facility] r 2024 1:39:0 0 AM [facility] DARNELL JOAQUIM [id number] on August 15, 2025 4:25:00 AM [facility] Discont inued 9282361 0055 5030 542 PROPOFOL 500 MG/50ML EMUL 500.0 MG INTRAV ENOUS ONE TIME ONLY (SCHEDULED DOSE) 20.833 MG/HR Start: [facility] 2024 4:01:0 0 AM UTC End: [facility] r 2024 1:39:0 0 AM UTC CASE CLIF Villalobos [id number] on August 15, 2025 2:46:00 PM UT Discont inued 349086 6623 8011 704 LACTATED RINGERS SOLN 1000. 0 ML IV CONTIN UOUS ONE TIME ONLY (SCHEDULED DOSE) Start: Oct[facility] r 2024 8:46:0 0 PM UTC End: Oct[facility] r 2024 8:46:0 0 PM UTC CASE CLIF Villalobos INTERFAC ED on August 14, 2025 4:00:00 AM UT SOCIAL HISTORY SOCIAL HISTORY - Smoking Status SNOMED-CT Social History Element Description Effective Dates Offered Cessation Comment Updated By [id number] Current Tobacco smoking status Unknown If Ever Smoked [id number] on August 10, 2025 6:22:07 PM UT [id number] Historical Tobacco smoking status Current Every Day Smoker SJU8845 on January 11, 2025 4:32:30 PM UT SOCIAL HISTORY - Gender Sex: Female SOCIAL HISTORY - Status : status i nformation is not available Intention in Next Year: intention information is not available SOCIAL HISTORY - Assessments Code System Description Status Date Value of Assessment Updated By Comment Assessment Information is no t available SOCIAL HISTORY - [place] Affiliation [place] information is not av ailable SOCIAL HISTORY - Legal Sex Legal Sex information is not available SOCIAL HISTORY - Sexual Behavior Sexual Orientation Gender Identity SNOMED-CT Description SNO MED -CT Description Activity Level No of Partners Partner Type UpdatedBy Information is not available SOCIAL HISTORY - Occupation Occupation information is no t available VITAL SIGNS PATIENT VITAL SIGNS This section displays the mo st recent value for each vital sign as of August 29, 2025 2:03:34 AM UT Loinc Code Vital Sign Activity Date Result Updated By 8302-2 Body height August 14, 2025 6:02:38 PM UT 170.18 cm (67.0 in) [id number] on August 14, 2025 6:02:38 [place] [address]-9 Body mass index (BMI) [Ratio] August 14, 2025 6:02:38 PM UTC 42.471 kg/m2 3140-1 Body Surface Area Derived From Formula August 14, 2025 6:02:38 PM UTC 2.3014 m2 04772-8 Body weight Measured August 14, 2025 6:02:38 PM UTC 123.0 kg (271.0 lb) [id number] on August 14, 2025 6:02:38 PM [facility] PEDIATRIC GROWTH CHART - VITAL SIGNS This section displays Head C ircumference Percentile, Weight for Length Percentile and BMI Percentile Loinc Code Pediatric Measure Age (Months) Result Updat ed By No Pediatric Growth Chart Pe rcentile Information Available. PROCEDURES PATIENT PROCEDURES CODE SYSTEM DESCRIPTION STATUS PERFORMED DATE UPD ATED BY [id number] SNOMED-CT Esophagogastroduodenoscopy completed August 14, 2025 4:00:00 AM UT [id number] on August 14, 2025 7:47:12 PM UT PROCEDURE NOTE Procedure Note information i s [...] By Uncoated knee tibia prosthesis, metallic ABRAM: ()[id number] Assigning Authority: FDA Device Identifier:[id number] ACTIVE Implanted: September 19, 2019 [id number] on September 19, 2019 2:22:13 PM UTC Tibial insert ABRAM: ()[id number] Assigning Authority: FDA Device Identifier:[id number] ACTIVE Implanted: September 19, 2019 [id number] on September 19, 2019 2:22:53 PM UTC Uncoated knee femur prosthesis ABRAM: ()[id number] Assigning Authority: FDA Device Identifier:[id number] ACTIVE Implanted: September 19, 2019 [id number] on September 19, 2019 2:24:02 PM UTC Polyethylene patella prosthesis ABRAM: ()[id number] Assigning Authority: FDA Device Identifier:[id number] ACTIVE Implanted: September 19, 2019 [id number] on September 19, 2019 2:24:29 PM UTC Metallic orthopedic cement restrictor ABRAM: ()[id number] Assigning Authority: FDA Device Identifier:[id number] Lot or Batch Number:[id number] Expiration Date:2025-06-18 ACTIVE 2 Implanted: May 23, 2024 RIGHT TOTAL KNEE ARTHROPLASTY [id number] on May 23, 2024 4:42:44 PM UTC Uncoated knee tibia prosthesis, metallic ABRAM: ()[id number] Assigning Authority: FDA Device Identifier:[id number] Lot or Batch Number:[id number] Expiration Date:2034-02-15 ACTIVE Implanted: May 23, 2024 RIGHT TOTAL KNEE ARTHROPLASTY [id number] on May 23, 2024 4:43:52 PM UTC Ceramic uncoated knee femur prosthesis ABRAM: ()[id number] Assigning Authority: FDA Device Identifier:[id number] Lot or Batch Number:[id number] Expiration Date:2033-07-18 ACTIVE Implanted: May 23, 2024 RIGHT TOTAL KNEE ARTHROPLASTY [id number] on May 23, 2024 4:45:14 PM UTC Tibial insert ABRAM: ()[id number] Assigning Authority: FDA Device Identifier:[id number] Lot or Batch Number:[id number] Expiration Date:2027-03-18 ACTIVE Implanted: May 23, 2024 RIGHT TOTAL KNEE ARTHROPLASTY [id number] on May 23, 2024 4:48:29 PM UTC Polyethylene patella prosthesis ABRAM: ()[id number] Assigning Authority: FDA Device Identifier:[id number] Lot or Batch Number:[id number] Expiration Date:2029-02-15 ACTIVE Implanted: May 23, 2024 RIGHT TOTAL KNEE ARTHROPLASTY [id number] on May 23, 2024 4:49:20 PM UTC ENCOUNTERS ENCOUNTER INFORMATION Reason for Visit EGD WITH LS TESTING Admission August 14, 2025 5:39:[address] [address] Discharge August 15, 2025 1:39:00 AM UT DISCHARGED TO HOME OR SELF CARE ENCOUNTER DIAGNOSES Notes information is not william ilable. Code System Diagnosis Onset Date Diagnosis information is not available. ABSTRACT DIAGNOSES Code System Diagnosis Updated By Abatement Date R11.2 ICD10 NAUSEA WITH VOMITING, UNSPEC IFIED [id number] on August 16, 2025 1:20:42 PM UTC R11.2 ICD10 NAUSEA WITH VOMITING, UNSPEC IFIED [id number] on August 16, 2025 1:20:42 PM UTC R13.14 ICD10 DYSPHAGIA, PHARY NGOESOPHAGEAL PHASE [id number] on August 16, 2025 1:20:42 PM UTC R60.9 ICD10 EDEMA, UNSPECIFIED TOD4922 o n August 16, 2025 1:20:42 PM UTC I50.30 ICD10 UNSPECIFIED INFANTE TOLIC (CONGESTIVE) HEART FAILURE [id number] on August 16, 2025 1:20:42 PM UTC I49.9 ICD10 CARDIAC ARRHYTHMIA, UNSPECIF IED [id number] on August 16, 2025 1:20:42 PM UTC 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 [id number] on August 16, 2025 1:20:42 PM UTC E78.5 ICD10 HYPERLIPIDEMIA, UNSPECIFIED NFR6662 on August 16, 2025 1:20:42 PM UTC F17.210 ICD10 NICOTINE DEPENDE NCE, CIGARETTES, UNCOMPLICATED [id number] on August 16, 2025 1:20:42 PM UTC J44.9 ICD10 CHRONIC OBSTRUCT COSMO PULMONARY DISEASE, UNSPECIFIED [id number] on August 16, 2025 1:20:42 PM UTC R06.00 ICD10 DYSPNEA, UNSPECIFIED [id number] on August 16, 2025 1:20:42 PM UTC G47.30 ICD10 SLEEP APNEA, UNSPECIFIED AAD 6617 on August 16, 2025 1:20:42 PM UTC M79.7 ICD10 FIBROMYALGIA KUA8882 on 2024 1:20:42 PM UTC G43.909 ICD10 MIGRAINE, UNSPEC IFIED, NOT INTRACTABLE, WITHOUT STATUS MIGRAINOSUS ZGP1611 on August 16, 2025 1:20:42 PM UTC G40.909 ICD10 EPILEPSY, UNSPEC IFIED, NOT INTRACTABLE, WITHOUT STATUS EPILEPTICUS [id number] on August 16, 2025 1:20:42 PM UTC F43.10 ICD10 POST-TRAUMATIC S TRESS DISORDER, UNSPECIFIED KRS8572 on August 16, 2025 1:20:42 PM UTC F41.9 ICD10 ANXIETY DISORDER, UNSPECIFIE D [id number] on August 16, 2025 1:20:42 PM UTC F32.A ICD10 DEPRESSION, UNSPECIFIED [id number] on August 16, 2025 1:20:42 PM UTC E11.9 ICD10 TYPE 2 DIABETES MELLITUS WITHOUT COMPLICATIONS IUL3762 on August 16, 2025 1:20:42 PM UT Z79.85 ICD10 LONG-TERM (CURRE NT) USE OF INJECTABLE NON-INSULIN ANTIDIABETIC DRUGS [id number] on August 16, 2025 1:20:42 PM UTC E03.9 ICD10 HYPOTHYROIDISM, UNSPECIFIED [id number] on August 16, 2025 1:20:42 PM UTC 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, BILATERAL CLL2405 on August 16, 2025 1:20:42 PM UTC Z96.643 ICD10 PRESENCE OF ROME FICIAL HIP JOINT, BILATERAL [id number] on August 16, 2025 1:20:42 PM UT Z90.49 ICD10 ACQUIRED ABSENCE OF OTHER SPECIFIED PARTS OF DIGESTIVE TRACT UST6006 on August 16, 2025 1:20:42 PM UT 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 QDJ6524 on August 16, 2025 1:20:42 PM UT Z79.82 ICD10 DETENTION (CURRE NT) USE OF ASPIRIN [id number] on August 16, 2025 1:20:42 PM UT Z79.899 ICD10 OTHER DETENTION (CURRENT) DRUG THERAPY QET3426 on August 16, 2025 1:20:42 PM UT Z88.2 ICD10 ALLERGY STATUS TO SULFONAMID ES QUH8593 on August 16, 2025 1:20:42 PM UT Z88.8 ICD10 ALLERGY STATUS T O OTHER DRUGS, MEDICAMENTS AND BIOLOGICAL SUBSTANCES [id number] on August 16, 2025 1:20:42 PM UT Z88.1 ICD10 ALLERGY STATUS T O OTHER ANTIBIOTIC AGENTS [id number] on August 16, 2025 1:20:42 PM UT CARE TEAM Care Computational Physicist Role DEFINED NO Referring DEFINED NO Primary Care CLIF CASE Admitting CLIF CARRIZALES Primary Attending CLIF CARRIZALES Surgeon CARE TEAM CARE reed fixer Role on Team Location Telecom Status Start Date End Yannick e Updated By ALL [place] Surgeon normal August 14, 2025 5:39:00 PM [facility] August 15, 2025 1:39:00 AM [facility] [id number] on August 16, 2025 1:20:49 PM UTC NO DEFINED PRIMARY C Referring normal August 14, 2025 5:43:22 PM UTC August 15, 2025 1:39:00 AM UTC [id number] on August 16, 2025 1:20:49 PM UTC NO DEFINED PRIMARY C PCP normal August 01, 2025 7:05:05 PM UTC August 15, 2025 1:39:00 AM UTC [id number] on August 16, 2025 1:20:49 PM UTC CASE CLIF Wilfredo GREEN[place] Attending normal August 01, 2025 7:05:05 PM UTC August 15, 2025 1:39:00 AM UTC [id number] on August 16, 2025 1:20:49 PM UTC CASE CLIF [place] Admitting normal August 01, 2025 7:05:05 PM UTC August 15, 2025 1:39:00 AM UTC [id number] on August 16, 2025 1:20:49 PM UTC
[2025-09-22 08:28] VITALS: BMI 41.8
--- OUTSIDE RECORDS SUMMARY | 2025-09-22 10:00 | XMS_ITS | Clinical Summary ---
Author Organization [facility] Address [address] [place] [address] Care Team Providers Care Product Accountant Name Role Phone Lindsey Guardado PROMPT CARE RN Primary Care Provider [phone] [place] Magalis Michelle PROMPT CARE RN Unavailable [phone] Allergies Active Allergy Reactions Criticality Noted Date [...] Hives Tetanus Toxoid Hives Medium 10/01/2010 Tetanus Toxoid-Containing Vaccines Hives Medium 11/28/2017 Tetanus-Diphtheria Toxoids Td Hives [...] (four) hours if needed for wheezing. Active Budeson-Glycopyrro l-Formoterol (Breztri Aerosphere) 160-9-4.8 MCG/ACT aerosol Inhale 2 Inhalation. 2 (two) times a day. Active ondansetron ODT (Zofran-ODT) 4 MG disintegrating tablet Take 1 tablet (4 mg total) by mouth every 6 (six) hours if needed for nausea or vomiting. 15 tablet 2 Active QUEtiapine (SEROquel) 100 MG tablet Take by mouth 1 (one) time each day. 2 Active B-D 3CC LUER-ARSALAN SYR 25GX1 25G X 1 3 ML misc 2 Active spironolactone (Aldactone) 50 MG tablet Take by mouth 1 (one) time each day. 2 Active rOPINIRole (Requip) 1 MG tablet Take by mouth every night. 2 Active Symbicort 160-4.5 MCG/ACT inhaler 2 Active Ozempic, 0.25 or 0.5 MG/DOSE, 2 MG/1.5ML solution pen-injector inj. pen 2 Active fluticasone (Flonase) 50 MCG/ACT nasal spray Administer into each nostril 1 (one) time each day if needed. 2 Active cetirizine (ZyrTEC) 10 MG tablet Take 1 tablet (10 mg) by mouth 1 (one) time each day. Active tiZANidine (Zanaflex) 4 MG tablet Take 1 tablet (4 mg) by mouth 3 times a day. Active Fluticasone-Umecli din-Vilant (Trelegy Ellipta) 200-62.5-25 MCG/ACT aerosol powder Inhale 1 (one) time each day. Active dapagliflozin (Farxiga) 5 MG tablet Take 1 tablet (5 mg) by mouth 1 (one) time each day. Active Active Problems Problem Noted Date Diagnosed Date Sacral nerve stimulator present 11/14/2024 Shortness of breath 07/20/2023 09/22/2023 Overview (09/22/2023): Last Assessment & Plan: Echocardiogram 07/21/2023-LVEF 61-65%. Left ventricular wall thickness is consistent with mild concentric hypertrophy. Left ventricular diastolic function is consistent with (grade 1) impaired relaxation. There is mild, bileaflet mitral valve thickening present. RVSP is normal. Mild mitral valve regurgitation. Mild tricuspid regurgitation - Continue current dose of Lasix. OAB (overactive bladder) 06/19/2023 Swelling 05/18/2023 Overview [...] for chest PA and lateral Pacemaker 05/10/2023 Urinary retention 03/20/2023 Stasis edema of both lower extremities 3 Gastritis without bleeding 01/23/202309/22 Overview (09/22/2023): Last [...] 11/27/2022 09/22/2023 Rosacea 11/27/2022 Tinea corporis 11/27/2022 Hypokalemia 11/25/2022 Overview (10/02/2023): Last Assessment & [...] Plan: Stable and euvolemic on exam today. Depression 05/27/2022 09/22/2023 Mild hyperlipidemia 05/27/2022 09/22/2023 [...] 05/27/2022 Allergic rhinitis due to pollen 05/27/2022 BRENDA (obstructive sleep apnea) 05/27/2022 Overview (10/02/2023): Last Assessment & Plan: Patient reports good compliance with PAP therapy, followed by Dr. Hall Other specified disorders of veins 05/27/2022 Other iron deficiency anemias 05/27/2022 Other difficulties with micturition 05/27/2022 Shingles 05/27/2022 Overview (10/02/2023): LUMBAR REGION Hiatal hernia 05/27/2022 Degenerative disc disease, cervical 05/27/2022 Tobacco use disorder 02/05/2022 Abdominal wall seroma 01/08/2022 Wound dehiscence 10/08/2021 Seizure disorder 08/26/2021 09/22/2023 Resolved Problems Problem Noted Date Diagnosed Date Resolved Date Open wound 09/22/2023 07/09/2025 Left foot pain 09/01/2023 07/09/2025 Swelling of lower extremity 07/20/2023 07/09/2025 Overview (10/02/2023): Last Assessment & Plan: Lower [...] to elevate legs is much as possible. Nausea and vomiting 03/20/2023 07/09/20 25 Acute cystitis with hematuria 02/27/2023 09/22/2023 07/09/2025 Overview (09/22/2023): Last Assessment & Plan: new onset urinary burning that started yesterday. He reports additional symptoms of urgency and hesitancy. She denies any hematuria, fever or low back pain. She admittedly is not a plentiful water drinker, mostly drinking soda. She has not utilized any hjeb-ssr-elwhewx medications such as AZO for her symptoms. Urinalysis positive for leukocytes and blood in office today. We will treat empirically with Keflex. Advised to increase water consumption. Discussed role of glucose control in regards to UTI Chest pain 11/25/2022 09/22/2023 07/09/2025 Overview (09/22/2023): Last Assessment & Plan: Resolved. Left heart cath on 01/15/2023-normal coronary arteries. Dyspepsia 05/27/2022 09/22/2023 07/09/2025 Overview (09/22/2023): Last Assessment & Plan: Followed by Dr. Sanches. On daily pantoprazole. Colonoscopy and EGD next week. Currently holding Ozempic until current episode of nausea subsides Pain in left knee 05/27/2022 07/09/2025 Syncopal episodes 05/27/2022 07/09/2025 Tinea unguium 05/27/2022 07/09/2025 Second hand smoke exposure 02/05/2022 0 07/09/2025 Ovarian mass, right 09/11/2021 10/09/20 Overview (10/08/2021): [...] workup - CT scan - start Zosyn Family History Medical History Relation Name Comments [...] Appointment [facility] [address] [place] [address] 01/05/2026 11:00 AM EDT Clinical Support [facility] [address] [place] [address] 01/05/2026 12:20 PM EDT Office Visit [place] [facility] [address] [place] [address] Kaylene Fernandez, PROMPT CARE RN [address] [place] [address] Health Maintenance Due Date Last Done Comments [...] 2015 Sigmoidoscopy 2015 [facility]-Colorectal Cancer Screening 2015 Lung Cancer Screening Shared Decision Making 2020 [facility]-Breast Cancer Screening 2020 [facility]-Depression Screening 11/05/2024 11/05/2023, 07/0 03/2022 [facility]-Lung Cancer Screening 01/04/2025 01/05/2024, [id number] Vaccine ( season) 2025 02/09/2021, 01/19/2021 [facility]-Influenza Vaccine (#1) 06/19/202508/30, 08/10/2024, 07/15/2023, Additional history exists [facility]-Diabetes: Hemoglobin A1C 07/18/2025 07/18/2024, 03/03/2024, 01/25/2024, Additional history exists [facility]-Cervical Cancer Screening Discontinued [...] topic Medical Devices Implanted Type Area Genetic Engineer Device Identifier Shelf Expiration Date Model / [...] Adults <6.0% Children and Adolescents <7.5% Source: [place] [employer]. Standards of medical care in diabetes,2017. Diabetes Care.2017:40 (suppl 1):S1-S135. HbA1c assay performed by an ion-exchange chromatography method that is certified traceable to the DCCT. Harpreet Laureano MD LAB BLOOD ORDERABLES Final Result Performing Organization Address City/[facility]/ZIP Co de Phone Number [facility] [address] [place] [address] * [place] Hepatitis C Antibody (05/08/2019 11:11 PM EDT) [place] Hepatitis C Ab NEGATIVE Reference Range: Negative [facility]QUEST 05/08/2019 11:1 1 PM EDT 05/08/2019 11:25 PM EDT Paresh Bingham LAB BLOOD ORDERABLES Final Resul t Performing Organization Address [facility] Co de Phone Number SUNQUEST * Cytology (12/07/1997 12:00 AM EST) 12/07/1997 12/07/1997 Narrative SUNQUEST - 12/08/1997 12:00 AM EST [facility] MR #: [id number] [facility] [place] [address] 1970 (Age: 27) FW Collect Date: 12/07/1997 00:00 Receipt Date: 12/07/1997 00:00 Page 1 DEPARTMENT OF PATHOLOGY AND LABORATORY MEDICINE CYTOPATHOLOGY REPORT Email: [email or web address] * Converted Case * This report may [...] ICD: F: {Not Entered} SNOMED CODES: 1; [id number] A resident has participated in this service. A pathologist has performed and is responsible for the reported pathologic evaluation. us Historical Provider LAB PATHOLOGY ORDERABLES Fin al Result SUNQUEST from Last 3 Months or Most Recently Relevant to Health Maintenance Insurance [employer]ICA[employer] Advance Directives * Full Code (Latest Code Status on File) Date Activated Date Inactivated Comments 10/08/2021 11:36 AM 10/09/2021 6:28 PM Question Answer Comments Patient has decision-making capacity? Yes * Full Code Date Activated Date Inactivated Comments 09/23/2021 12:53 PM 09/25/2021 1:29 PM Question Answer Comments Patient has decision-making capacity? Yes Care Teams Product Accountant Relationship Specialty Start Date End Date Lindsey Guardado APRN [address] [place], [place] [id number] PCP - General 06/01/25 Magalis Reid APRN [address] [place] [id number] Nurse Practitioner Urology 06/01/25 Guru Ma [address] [place] [address] [id number] [facility] [id number] Referring Physician Obstetrics and Gynecology 09/02/21
--- OUTSIDE RECORDS SUMMARY | 2025-09-22 10:00 | XMS_ITS | Encounter Summary ---
Author Organization [facility] Address [address] [place] [address] Care Team Providers Care Vacuum Conditioner Operator Name Role Phone System, Provider Not In Primary Care Provider Un available Encounter Details Date Type Department Care Team (Late st Contact Info) Description 03/08/2025 Results Follow-Up [facility] [address] [place] [address] Daphney Hall MD [address] [place] [address] Social History Tobacco Use Types Packs/Day [...] or training? Not on file Preferred Language Malagasy 03/03/2024 PHQ-2 Answer Date Recorded Retired PHQ-9: [...] [facility] [address] [address] Daphney Hall MD [address] [place] [address] 11/13/2025 11:00 AM EST Clinical Support No Requirements [facility] [address] [address] 12/20/2025 1:30 PM EST Office Visit [facility] [address] [address] Daphney Hall MD [address] [address] 12/20/2025 1:30 PM EST Clinical Support No Requirements [facility] [address] [address] documented as of this encounter Visit Diagnoses Not on filedocumented in this encounter Additional Health Concerns Assessment Noted Time PHQ-2 Depression Total Score: 3 07/18/20 24 11:28 AM EDT documented as of this encounter Care Teams Vacuum Conditioner Operator Relationship Specialty Start Date End Date System, [place] [address] PCP - General 02/14/25 documented as of this encounter
--- OUTSIDE RECORDS SUMMARY | 2025-09-22 10:00 | XMS_ITS | Patient Health Record ---
Author Organization [facility] . 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 Problem Type 2 diabetes mellitus (33206293) Type 2 diabetes mellitus (E11.9) Active confirmed Problem Hypertension (23008032) HTN (hypertension) (I10) Active confirmed Problem Morbid obesity (758447697) Morbid obesity (E66.01) Active confirmed Problem Obstructive sleep apnea syndrome (84602192) BRENDA (obstructive sleep apnea) (G47.33) Active confirmed Problem Obese (888763688) Obese (E66.9) Active confirmed Problem Brain tumor (331973291) Brain tumor (D49.6) Active confirmed Problem Chronic kidney disease stage 2 (778182879) Chronic kidney disease (CKD) stage G2/A1, mildly decreased glomerular filtration rate (GFR) between 60-89 mL/min/1.73 square meter and albuminuria creatinine ratio less than 30 mg/g (N18.2) Active confirmed Problem Obstructive sleep apnea syndrome (62010906) BRENDA (obstructive sleep apnea) (G47.33) Active confirmed [...] Michael [employer] [place] ([place] [address] [address] [place] [address] [id number] Frannie Nuñez Self - patient is the insured Medical (General) History Medical History History ICD Code Anemia Avitaminosis B 12 deficiency Carotid artery stenosis CHF 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
--- OUTSIDE RECORDS SUMMARY | 2025-09-22 10:00 | XMS_ITS | Encounter Summary ---
Author Organization [facility] Address [address] [place] [address] Care Team Providers Care Ceramic Engineering Professor Name Role Phone Ronaldo Kong MD Primary Care Provider [phone] Lindsey Guardado APRN Primary Care Provider [phone] Magalis Reid APRN Unavailable [phone] Encounter Details Date Type Department Care Team (Late st Contact Info) Description 07/08/2022 Orders Only External Location [address] [place] [address] Provider, External Social History Tobacco Use Types [...] EDT Appointment [facility] [address] [place] [address] 01/05/2026 11:00 AM EDT Clinical Support [place] [facility] [address] [place] [address] 01/05/2026 12:20 PM EDT Office Visit [facility] [address] [place] [address] Kaylene Fernandez APRN [address] [place] [address] documented as of this [...] documented as of this encounter Care Teams Ceramic Engineering Professor Relationship Specialty Start Date End Date Ronaldo Kong MD [address] [place] [address] [place] [address] PCP - General 03/01/21 05/31/25 Lindsey Guardado APRN [address] [place] [address] PCP - General 06/01/25 Magalis Reid APRN [address] [place] [address] Nurse Practitioner Urology 06/01/25 Guru Ma [address] [place] [address] [address] [facility] [id number] Referring Physician Obstetrics and Gynecology 09/02/21 documented as of this encounter
--- OUTSIDE RECORDS SUMMARY | 2025-09-22 10:01 | XMS_ITS | Encounter Summary ---
Author Organization [employer] ([place], [place], [place], [place], [place]) Address [address] [place] [address] Care Team Providers Care Radiology Resident Name Role Phone Ronaldo Kong MD Primary Care Provider [phone] Tanna Finch APRN Primary Care Provid er Encounter Details Date Type Department Care Team (Late st Contact Info) Description 05/18/2019 Transcribed Document [facility] [place] [facility] [place] [address] ProviderJorje MD [address] [place] [id number] Social History Tobacco Use Types Packs/Day Years Used Date Smoking Tobacco: Never Assessed Comments Unknown Sex and Gender Information Value Date Recorded Sex Assigned at Female 04/17/2022 4:47 PM CDT Legal Sex Female 3:02 PM CDT Gender Identity Female 04/17/2022 4:47 PM CDT Sexual Orientation Not on file documented as of this encounter Miscellaneous Notes * Cerner Conversion Note - Jorje ProviderMD - 05/18/2019 4:01 PM CDT Patient Education Materials Follows: Moderate Conscious Sedation, Adult, Care After These instructions provide you with information about caring for yourself after your procedure. Your health care provider may also give you more specific instructions. Your treatment has been planned according to current medical practices, but problems sometimes occur. Call your health care provider if you have any problems or questions after your procedure. What can I expect after the procedure? After your procedure, it is common: ??? To feel sleepy for several hours. ??? To feel clumsy and have poor balance for several hours. ??? To have poor judgment for several hours. ??? To vomit if you eat too soon. Follow these instructions at home: For at least 24 hours after the procedure: ??? Do not: ? Participate in activities where you could fall or become injured. ? Drive. ? Use heavy machinery. ? Drink alcohol. ? Take sleeping pills or medicines that cause drowsiness. ? Make important decisions or sign legal documents. ? Take care of children on your own. ??? Rest. Eating and drinking ??? Follow the diet recommended by your health care provider. ??? If you vomit: ? Drink water, juice, or soup when you can drink without vomiting. ? Make sure you have little or no nausea before eating solid foods. General instructions ??? Have a responsible adult stay with you until you are awake and alert. ??? Take gicw-ntg-nvgexcn and prescription medicines only as told by your health care provider. ??? If you smoke, do not smoke without supervision. ??? Keep all follow-up visits as told by your health care provider. This is important. Contact a health care provider if: ??? You keep feeling nauseous or you keep vomiting. ??? You feel light-headed. ??? You develop a rash. ??? You have a fever. Get help right away if: ??? You have trouble breathing. This information is not intended to replace advice given to you by your health care provider. Make sure you discuss any questions you have with your health care provider. Document Released: 07/26/2014 Document Revised: 03/09/2017 Document Reviewed: 01/24/2017 [employer] Interactive Patient Education ? 2019 [employer] Transradial Angiogram Transradial angiogram is an imaging test. This test uses X-ray images and colored dye that is made up of an iodine solution (contrast dye). This test is done to check for any abnormalities in the vessels that might affect blood flow, such as: ??? A blocked blood vessel. ??? A narrowed blood vessel. ??? A blood clot. ??? Abnormal, inherited blood vessel connections. During this test, a small, flexible tube (catheter) is inserted into an artery in the wrist (radial artery). The catheter is moved from the radial artery into other blood vessels in the body that need to be examined. Contrast dye is used to make blood vessels visible on X-ray images that are taken during the procedure. Tell a health care provider about: ??? Any allergies you have. ??? All medicines you are taking, including vitamins, herbs, eye drops, creams, and sdxx-yky-adtigqs medicines. ??? Any problems you or family members have had with anesthetic medicines. ??? Any blood disorders you have. ??? Any surgeries you have had. ??? Any medical conditions you have. ??? Whether you are or may be . What are the risks? Generally, this is a safe procedure. However, problems may occur, including: ??? Infection. ??? Bleeding. ??? Allergic reactions to medicines or dyes. ??? Damage to other structures or organs, such as the blood vessels, lungs, or heart. ??? Blood clots. ??? Blood flow through the radial artery stopping or slowing down. This is rare. What happens before the procedure? Ask your health care provider about: ? Changing or stopping your regular medicines. This is especially important if you are taking diabetes medicines or blood thinners. ? Taking medicines such as aspirin and ibuprofen. These medicines can thin your blood. Do not take these medicines before your procedure if your health care provider instructs you not to. ??? Follow instructions from your health care provider about eating or drinking restrictions. ??? Do not use tobacco products for at least 24 hours before your procedure or as told by your health care provider. This includes cigarettes, chewing tobacco, or e-cigarettes. ??? Ask your health care provider how your surgical site will be marked or identified. ??? You may be given antibiotic medicine to help prevent infection. ??? You may have a physical exam. ??? You may have tests, including: ? Blood tests. ? X-rays. ??? Plan to have someone take you home after the procedure. ??? If you will be going home right after the procedure, plan to have someone with you for 24 hours. What happens during the procedure? To reduce your risk of infection: ? Your health care team will wash or sanitize their hands. ? Your skin will be washed with soap. ??? An IV tube will be inserted into one of your veins. ??? You will be given the following: ? A medicine to help you relax (sedative). ? A medicine that is injected to numb the area near the radial artery in your wrist (local anesthetic). ??? A needle will be inserted into your radial artery in your wrist. ??? A catheter will be inserted into your radial artery. The needle helps guide the catheter into your radial artery. ??? The catheter will be moved through your body to the desired blood vessel. An X-ray machine (fluoroscope) will help your health care provider bring the catheter to the correct place in your body. ??? Contrast dye will be injected into the catheter and will travel to the blood vessel that is being examined. ??? X-ray images will be taken of how the dye flows through your blood vessel. While the images are being taken, you may be given instructions on breathing, swallowing, moving, or talking. ??? The catheter and needle will be removed from your body. ??? A pressure (compression) wrap will be applied to your wrist to stop bleeding. The procedure may vary among health care providers and hospitals. What happens after the procedure? You will need to keep your wrist still for as long as told by your health care provider. ??? The pressure applied to your wrist will be gradually decreased until the compression wrap is removed. ??? You may have soreness and bruising in your wrist. This is normal. This should get better within about 1 week. ??? Your blood pressure, heart rate, breathing rate, and blood oxygen level will be monitored often until the medicines you were given have worn off. ??? You may continue to receive fluids and medicines through an IV tube. ??? Do not drive for 24 hours if you received a sedative. ??? You may have to wear compression stockings. These stockings help to prevent blood clots and reduce swelling in your legs. This information is not intended to replace advice given to you by your health care provider. Make sure you discuss any questions you have with your health care provider. Document Released: 06/29/2013 Document Revised: 06/07/2017 Document Reviewed: 09/08/2016 [employer] Interactive Patient Education ? 2019 [employer] Radial Site Care Refer to this sheet in the next few weeks. These instructions provide you with information about caring for yourself after your procedure. Your health care provider may also give you more specific instructions. Your treatment has been planned according to current medical practices, but problems sometimes occur. Call your health care provider if you have any problems or questions after your procedure. What can I expect after the procedure? After your procedure, it is typical to have the following: ??? Bruising at the radial site that usually fades within 1?2 weeks. ??? Blood collecting in the tissue (hematoma) that may be painful to the touch. It should usually decrease in size and tenderness within 1?2 weeks. Follow these instructions at home: ??? Take medicines only as directed by your health care provider. ??? You may shower 24?48 hours after the procedure or as directed by your health care provider. Remove the bandage (dressing) and gently wash the site with plain soap and water. Pat the area dry with a clean towel. Do not rub the site, because this may cause bleeding. ??? Do not take baths, swim, or use a hot tub until your health care provider approves. ??? Check your insertion site every day for redness, swelling, or drainage. ??? Do not apply powder or lotion to the site. ??? Do not flex or bend the affected arm for 24 hours or as directed by your health care provider. ??? Do not push or pull heavy objects with the affected arm for 24 hours or as directed by your health care provider. ??? Do not lift over 10 lb (4.5 kg) for 5 days after your procedure or as directed by your health care provider. ??? Ask your health care provider when it is okay to: ? Return to work or school. ? Resume usual physical activities or sports. ? Resume sexual activity. ??? Do not drive home if you are discharged the same day as the procedure. Have someone else drive you. ??? You may drive 24 hours after the procedure unless otherwise instructed by your health care provider. ??? Do not operate machinery or power tools for 24 hours after the procedure. ??? If your procedure was done as an outpatient procedure, which means that you went home the same day as your procedure, a responsible adult should be with you for the first 24 hours after you arrive home. ??? Keep all follow-up visits as directed by your health care provider. This is important. Contact a health care provider if: ??? You have a fever. ??? You have chills. ??? You have increased bleeding from the radial site. Hold pressure on the site. Get help right away if: ??? You have unusual pain at the radial site. ??? You have redness, warmth, or swelling at the radial site. ??? You have drainage (other than a small amount of blood on the dressing) from the radial site. ??? The radial site is bleeding, and the bleeding does not stop after 30 minutes of holding steady pressure on the site. ??? Your arm or hand becomes pale, cool, tingly, or numb. This information is not intended to replace advice given to you by your health care provider. Make sure you discuss any questions you have with your health care provider. Document Released: 11/07/2011 Document Revised: 03/12/2017 Document Reviewed: 04/23/2015 [employer] Interactive Patient Education ? 2019 [employer]. documented in this encounter Plan of Treatment Upcoming Encounters Date Type Department Care Team (Late st Contact Info) Description 12/26/2025 10:00 AM EDT Office Visit [facility] Neurology - [address] [place] [phone] Lino Solis MD [address] [place] [address] [address] [place] [address] documented as of this encounter Visit Diagnoses Not on filedocumented in this encounter Care Teams Radiology Resident Relationship Specialty Start Date End Date Ronaldo Kong MD [address] [place] [address] [place] [address] PCP - General General Internal Medicine 12/24/2210/19 Tanna Finch APRN [address] [place] [phone] PCP - General Nurse Practitioner 11/04/24 documented as of this encounter
--- OUTSIDE RECORDS SUMMARY | 2025-09-22 10:01 | XMS_ITS | Encounter Summary ---
Author Organization [employer] ([place], [place], [place], [place], [place]) Address [address] [place] [address] Care Team Providers Care Patient Accounts Clerk Name Role Phone Ronaldo Kong MD Primary Care Provider [phone] Tanna Finch APRN Primary Care Provid er Encounter Details Date Type Department Care Team (Late st Contact Info) Description 06/06/2020 Transcribed Document [facility] [place] [address] [place] [address] ProviderJorje MD [address] [place] [phone] Social History Tobacco Use Types Packs/Day [...] Cerner Conversion Note - Jorje ProviderMD - 06/06/2020 5:39 PM CDT Evaluation, Physical Therapy Entered On: 06/07/2020 11:49 EDT Performed On: 06/07/2020 9:18 EDT by DANNY MCDONALD, PT General Information, PT Visit Type, PT : Initial evaluation Patient Orders : Order Date Order Ordering 06/06/2020 17:39 PT Evaluation and Treatment Ordered By: JUAREZ IRWIN MD-CAR Active Diagnoses : No Qualifying Diagnoses Therapy Diagnosis, PT : malaise and fatigue Admission Date : 06/06/2020 16:25 Personal Devices : Personal Devices No Devices Recorded Assistive Devices : Assistive Devices No Devices Recorded Precautions in Place : Fall prevention measures General Information Comment, PT : 50yo female admitted with SOA, possible heart failure, MO, DM2, anxiety, arthritis, borderline personality disorder RN reports patient was not tested for COVID since they believe her SOA is related to CHF and she has lost 10lbs overnight since they gave her bumex. DANNY MCDONALD, PT - 06/07/2020 11:38 EDT General Status Patient Received Status : Supine in bed, Other: IV, telemety Treatment Start Time : 06/07/2020 9:02 EDT Patient Left Status : Up in chair, Communication board completed, All needs met and within reach, Other: as found RN/PCT Informed Comment : RN ok'd PT EVAL. Patient agreeable to PT EVAL. Treatment End Time : 06/07/2020 9:18 EDT Treatment Time : 16 Minute(s) Actual Treatment Time : 16 Minute(s) DANNY MCDONALD, PT - 06/07/2020 11:38 EDT History and Environment Living Situation, Therapy : Home Patient Lives With : Alone Persons Assisting Patient at Home : Alone Professional Skilled Services : Physical Therapy, Other: Outpt PT for recent R shoulder surgery (bone spur removal) Persons Providing Information : Patient Home Equipment Therapy, PT : Bar, grab, Cane, Commode, Shower Equipment, Walker, Wheelchair Cane : Cane, single point Commode : Commode, bedside Shower Equipment Comment : built in shower bench Walker : Walker, front wheel Wheelchair : Wheelchair, standard Home Setup : One story, Other: Handicap accessible apt Stairs : No DANNY MCDONALD, PT - 06/07/2020 11:38 EDT Prior Level of Function PT GRID Prior LOF Ambulation, Household : Independent Prior LOF Ambulation, Community : Independent Prior LOF Bed Mobility : Independent Prior LOF Toileting : Independent Prior LOF Transfer : Independent DANNY MCDONALD, PT - 06/07/2020 11:38 EDT Prior LOF Assist with ADL Comment : Independent DANNY MCDONALD, PT - 06/07/2020 11:38 EDT Upper Extremity Upper Extremity Dominance : Right Right UE Active ROM : Impaired Right UE Strength : Impaired Left UE Active ROM : WFL Left UE Strength : WFL Upper Extremity Comment : Patient reports she had surgery on her R shoulder ~ 4 weeks ago and is going to OP PT. No limitations in R shoulder. DANNY MCDONALD, PT - 06/07/2020 11:38 EDT Lower Extremity RLE Active ROM : WFL Right LE Strength : WFL LLE Active ROM : WFL Left LE Strength : WFL DANNY MCDONALD, PT - 06/07/2020 11:38 EDT Functional Mobility Mobility Grid Supine to Sit : Supervision/set-up Sit to Stand : Supervision/set-up Stand to Sit : Supervision/set-up DANNY MCDONALD, PT - 06/07/2020 11:38 EDT Sit to Stand Device : None, Belt, gait DANNY MCDONALD, PT - 06/07/2020 11:38 EDT Gait Training/Assessment, PT Walking Distance : ~ 180' Ambulatory Devices : None, Gait belt Gait Training Comment : Patient ambulated 180' without AD SBA + assist with IV pole No LOB DANNY MCDONALD, PT - 06/07/2020 11:38 EDT Neuromuscular Reeducation, PT Balance Comment : DANNY Ford, PT - 06/07/2020 11:38 EDT Neurological/Sensory Overall Sensory Response : Intact DANNY MCDONALD, PT - 06/07/2020 11:38 EDT Activity Tolerance, PT Activity Comment : DANNY Ford, PT - 06/07/2020 11:38 EDT Cognition Assessment, PT Orientation : Oriented x 4 Safety/Judgment Comment : Intact Follows Basic Command Assessment : Yes Attention Assessment : Present DANNY MCDONALD, PT - 06/07/2020 11:38 EDT Edu Topics Physical Therapy Education Grid Bed Mobility Training : Verbalizes understanding, Returns demonstration Gait Training : Verbalizes understanding, Returns demonstration Role of Physical Therapy : Verbalizes understanding Safety : Verbalizes understanding Transfer Training : Returns demonstration, Verbalizes understanding DANNY MCDONALD, PT - 06/07/2020 11:38 EDT Teaching/Learning Assessment Barriers To Learning : Acuity of Illness Individuals Taught : Patient Readiness to Learn : Cooperative Highest Level of Education : University degree(s) Readiness to Learn : Explanation Learning Style Preferences Patient : None DANNY MCDONALD, PT - 06/07/2020 11:38 EDT Indication Assesessment, PT Physical Therapy Indicated : Yes PT Problem List : Impaired, endurance tolerance, Impaired, gait, Impaired, standing balance, Impaired, strength, Impaired, transfers Potential Barriers To Therapy : Acuity of Illness Rehabilitation Potential : Good DANNY MCDONALD, PT - 06/07/2020 11:38 EDT Plan of Care, PT PT Tx Plan/Goals Established w Patient : Yes PT Frequency Rehab : Daily PT Duration Rehab : Three days PT Treatments Planned : Balance training, Bed mobility training, Gait training, Safety education, Therapeutic exercises, Transfer training DANNY MCDONALD, PT - 06/07/2020 11:38 EDT Veterinary Medical Officer Goals Other PT LTG Grid Goal #1 Goal #2 Other : Patient will be Supervision/Independent with all transfers to return to [facility]. Patient will ambulate 300' without AD Supervision for community distances and improved endurance. Date to Meet : 06/10/2020 EDT 06/10/2020 EDT Goal Status : Initial goal Initial goal DANNY MCDONALD, PT - 06/07/2020 11:38 EDT DANNY MCDONALD, PT - 06/07/2020 11:38 EDT Treatment Note Patient's Response to Treatment : Good Assessment : Patient will benefit from acute skilled PT services to maxamize safety/[place] with functional mobility prior to discharge. DANNY MCDONALD, PT - 06/07/2020 11:38 EDT Pain Assessment Pain Scaled Used : 0-10 Pain scale Pain Score Pre-Intervention : 0 Pain Score During-Intervention : 0 Pain Score Post-Intervention. : 0 DANNY MCDONALD, PT - 06/07/2020 11:38 EDT Image 1 - Images currently included in the form version of this document have not been included in the text rendition version of the form. Anticipated Discharge Needs, OT/PT Anticipated Discharge to : Home, independently DANNY MCDONALD, PT - 06/07/2020 11:[address] [facility] PT Charges Gait Training Each 15 Min : 1 PT Eval Low Complexity : 1 DANNY MCDONALD PT - 06/07/2020 11:38 EDT documented in this encounter Plan of Treatment Upcoming Encounters Date Type Department Care Team (Late st Contact Info) Description 12/26/2025 10:00 AM EDT Office Visit [facility] - [facility] [address] [facility] [address] [place] [phone] Lino Solis MD [address] [place] [address] documented as of this encounter Visit Diagnoses Not on filedocumented in this encounter Care Teams Patient Accounts Clerk Relationship Specialty Start Date End Date Ronaldo Kong MD [address] [place] [id number] PCP - General General Internal Medicine 12/24/2210/19 Tanna Finch APRN [address] [place] [phone] PCP - General Nurse Practitioner 11/04/24 documented as of this encounter
--- OUTSIDE RECORDS SUMMARY | 2025-09-22 10:01 | XMS_ITS | Encounter Summary ---
Author Organization [email or web address] ([place], [place], [place], [place], [place]) Address [address] [place] [address] Care Team Providers Care Winch Stripper Name Role Phone Ronaldo Kong MD Primary Care Provider [phone] Tanna Finch APRN Primary Care Provid er Encounter Details Date Type Department Care Team (Late st Contact Info) Description 06/04/2020 Transcribed Document [facility] Family Medicine [address] [place] [address] Provider, MD Jorje [address] [place] [id number] Social History Tobacco Use Types Packs/Day Years Used Date Smoking Tobacco: Never Assessed Comments Unknown Sex and Gender Information Value Date Recorded Sex Assigned at Female 04/17/2022 4:47 PM CDT Legal Sex Female 3:02 PM CDT Gender Identity Female 04/17/2022 4:47 PM CDT Sexual Orientation Not on file documented as of this encounter Miscellaneous Notes * [employer]ner Conversion Note - Jorje ProviderMD - 06/04/2020 10:07 AM CDT DATE OF SERVICE: 06/04/2020 SLEEP MEDICINE FOLLOWUP PRIMARY CARE PROVIDER: Ronaldo Kong MD HISTORY OF PRESENT ILLNESS: The patient returns for yearly followup of her obstructive sleep apnea. She was last seen in the office on May 05, [address] Paresh Jaime. The patient states she has been doing well since she was seen in the clinic last. She has had a knee replacement and a shoulder surgery in the last year. The patient also is complaining of some increased swelling and edema. She is seeing Cardiology for this. The patient states her only issue using her AutoPAP is an occasional air leak from the mask and dry mouth. She is due for new supplies. The patient does report an increase in daytime sleepiness. Her [place] has increased from her last visit. It is 11/24 today. According to the patient's compliance download over the last 30 days, she is 100% compliant. Average usage 6 hours and 50 minutes. She is on an auto-BiPAP setting with a maximum inspiratory pressure of 18 cm and a minimum expiratory pressure of 6 cm with a pressure support range of 4 to 6 cm. Her 90% of the time IPAP is 18 cm. Her 90% of the time EPAP is 14 cm. Her AHI is 1.0. Insomnia: The patient reports her insomnia is stable. She continues to see Psychiatry for this. She averages 6 to 7 hours of sleep and this is normal for her. The patient does use tobacco products. She does not drink alcoholic beverages. She has about 2 caffeinated beverages daily. MEDICATIONS: Updated and reviewed in the chart. PHYSICAL EXAMINATION: VITAL SIGNS: Weight 305 pounds, increased about 20 pounds. BMI 47. Respirations 16, oxygen saturation 100%, blood pressure 120/80, heart rate 99. Davenport 11/24. GENERAL: This is a pleasant female, in no distress. She does appear mildly anxious. HEENT: Pupils are equal and round. Airway exam deferred. Patient is wearing a mask secondary to COVID-19. LUNGS: Clear to auscultation. HEART: Without murmurs. EXTREMITIES: Without clubbing, cyanosis. There is 1+ edema in bilateral lower extremities. SKIN: Visible skin without excoriation or irritation. NEURO/PSYCH: The patient is alert and oriented x3. She is awake. Mood and affect are appropriate. Gait normal. IMPRESSION: 1. Obstructive sleep apnea. The patient's obstructive sleep apnea, appears controlled according to her download. Her AHI is 1.0. However, the patient is complaining of some increase in daytime fatigue. According to her download, her 90 percentile IPAP pressure is 18 cm, which is the max setting. 2. Insomnia, stable. RECOMMENDATIONS: 1. We will do pressure adjustments on her AutoPAP. We are going to increase the IPAP maximum to 25 cm and the EPAP minimum to 10 with a pressure support range 4 to 6 cm. Annual supply order sent to [facility]. 2. The patient is up about 20 pounds in weight. This may be the underlying cause of her increase in daytime fatigue. We had a brief discussion about the importance of weight loss. This will improve lower extremity swelling as well as improve her obstructive sleep apnea. 3. I have asked the patient to return in about 8 weeks to discuss the pressure adjustment and evaluate the response to therapy. The patient would like to schedule her appointment in one year and just return if she does not notice an improvement. 4. She will continue to follow with Cardiology regarding her increase in edema. /[id number] Anh Dunlap APRN HH/AQ / HH / MODL /[id number] CC: Ronaldo Kong MD Electronically signed by [facility], [facility] Conversion Informatics Coordinator Cerner at 02/03/2023 4:44 PM CDT documented in this encounter Plan of Treatment Upcoming Encounters Date Type Department Care Team (Late st Contact Info) Description 12/26/2025 10:00 AM EDT Office Visit [facility] Neurology - [address] [place] [address] [phone] Lion Solis MD [address] [place] [address] [address] [place] [address] documented as of this encounter Visit Diagnoses Not on filedocumented in this encounter Care Teams Winch Stripper Relationship Specialty Start Date End Date Ronaldo Kong MD [address] [place] [address] [place] [address] PCP - General General Internal Medicine 12/24/2210/19 Tanna Fnich APRN [address] [place] [phone] PCP - General Nurse Practitioner 11/04/24 documented as of this encounter
--- OUTSIDE RECORDS SUMMARY | 2025-09-22 10:01 | XMS_ITS | Encounter Summary ---
Author Organization [employer] ([place], [place], [place], [place], [place]) Address [address] [place] [address] Care Team Providers Care Edi Coordinator Name Role Phone Ronaldo Kong MD Primary Care Provider [phone] Tanna Finch APRN Primary Care Provid er Encounter Details Date Type Department Care Team (Late st Contact Info) Description 05/18/2019 Transcribed Document [facility] [place] [address] ProviderJorje MD [address] [place] [address] Social History Tobacco Use Types Packs/Day [...] Conversion Note - Jorje ProviderMD - 05/18/2019 10:13 AM CDT Pre Procedure Adult Entered On: 05/18/2019 10:18 EDT Performed On: 05/18/2019 10:13 EDT by RENETTA CATHERINE RN Height and Weight, Clinical Dosing Height Source : Measured Height Entry Format : [place]agoner Height, Feet : 5 ft(Converted to: 152 cm, 60 Inch) Height, Inches : 7 Inch(Converted to: 0 ft 7 Inch, 17.78 cm) Clinical Height : 170.18 cm Weight Source : Standing scale Weight Entry Format : Wagoner Clinical Dosing Weight : 130.45 kg Weight, Pounds : 287 lb Weight, Ounces : 0 oz Body Surface Area (BSA) : 2.36 m2 Body Mass Index : 45 kg/m2 (>HHI) [place] Body Weight : 61 kg RENETTA CATHERINE RN - 05/18/2019 10:13 EDT Health Histories Smoking Status : 10 or more cigarettes (1/2 pack or more)/day in last 30 days Smokeless Tobacco Status : Never Desires Tobacco Cessation Medication : Yes RENETTA CATHERINE RN - 05/18/2019 10:13 EDT Social History (As Of: 05/18/2019 10:18:02 EDT) Tobacco: Smoking Status Current every day smoker. Five or more cigarettes per day Smoking Frequency Within Last 30 Days. Years of Use: 26. Packs/Tins Daily: 05. (Last Updated: 10/20/2017 12:24:12 EST by PAO ONEAL RN) Smoking Status Current every day smoker. Five or more cigarettes per day Smoking Frequency Within Last 30 Days. Use in Last 12 Months: Cigarettes. Years of Use: 24. Packs/Tins Daily: 0.5. Used Tobacco, but Quit No. Second Hand Smoke Exposure: Yes. No Smokeless Tobacco Use in Last 30 Days. None Smokeless Tobacco Use History. (Last Updated: 11/30/2017 08:18:23 EST by SERENITY WEBB) 10 or more cigarettes (1/2 pack or more)/day in last 30 days Smoking Status. Years of Use: 27. Packs/Tins Daily: 1. (Last Updated: 05/18/2019 10:14:59 EDT by RENETTA CATHERINE RN) Alcohol: Alcohol Use History No. (Last Updated: 10/20/2017 12:24:18 EST by PAO ONEAL RN) Substance Abuse: Drug Use Hx: No. Use in Last 12 Months: No. (Last Updated: 10/20/2017 12:24:23 EST by PAO ONEAL RN) Nutrition/Health: Caffeine intake amount: 3 cups a day. (Last Updated: 10/20/2017 12:24:55 EST by PAO ONEAL RN) Infectious Disease History Infectious Disease History : Chicken pox/Shingles, Mononucleosis Fever/Chills Last 48 Hours : No Travel To Regions with Travel Advisories : No Travel Outside [place] Within Last 30 Days : No Contact With Traveler to Advisory Region : No Tuberculosis Symptoms : Fatigue RENETTA CATHERINE RN - 05/18/2019 10:13 EDT Anesthesia/Transfusion History Family History of Anesthesia Reaction : No prior transfusion(s) Blood Transfusion Acceptable to Patient : Yes Transfusion History : Prior anesthesia without reaction Family History of Anesthesia Reaction : None RENETTA CATHERINE RN - 05/18/2019 10:13 EDT Functional Assessment Living Situation : Home Patient Lives With : Alone Current Home Treatments : BiPAP RENETTA CATHERINE RN - 05/18/2019 10:13 EDT Psychosocial History Currently in Unsafe Situation : No Tried to Harm Yourself in the Past? : No Thoughts of Harming/Killing Yourself : No RENETTA CATHERINE RN - 05/18/2019 10:13 EDT Advance Directive Patient has Advance Directive *Q : No, patient refuses Advance Directive information RENETTA CATHERINE RN - 05/18/2019 10:13 EDT Teaching/Learning Assessment Barriers To Learning : None evident Individuals Taught : Patient Readiness to Learn : Cooperative Readiness to Learn : Demonstration, Explanation Learning Style Preferences Patient : Demonstration, Verbal explanation RENETTA CATHERINE RN - 05/18/2019 10:13 EDT Education Topics, Periop Preadmission Perioperative Education [place] : Verbalizes understanding Infection Control : Verbalizes understanding IV's : Verbalizes understanding NPO Status/Directions : Verbalizes understanding Pain Management : Verbalizes understanding Postoperative Care Preparations : Verbalizes understanding Preprocedure Preparations : Verbalizes understanding Preprocedure Tests/Labs : Verbalizes understanding RENETTA CATHERINE RN - 05/18/2019 10:13 EDT General Info Want Family/Rep/Phys Notified of Admit : No Emergency Contact #1 : Janet Rosario Emergency Contact #1 Emergency Contact #1 Relationship : sister Emergency Contact #2 : x Emergency Contact #2 Phone Number : x Emergency Contact #2 Relationship : x Primary Language : Welsh Communication Barrier : None RENETTA CATHERINE RN - 05/18/2019 10:13 EDT Sleep Apnea Risk Assmt BiPAP/CPAP Ordered for Home Use : Yes Hx of Obstructive Sleep Apnea Diagnosis : Yes BiPAP/CPAP Used at Home : Yes Age over 50 Years Old : No Gender Male : No RENETTA CATHERINE RN - 05/18/2019 10:13 EDT Bernard Scale Bernard Sensory Perception : No impairment Bernard Moisture : Rarely moist Bernard Activity : Walks frequently Bernard Mobility : No limitation Bernard Nutrition : Adequate Bernard Friction and Shear : No apparent problem Bernard Score : 22 RENETTA CATHERINE RN - 05/18/2019 10:13 EDT Pain Assessment Pain Assessment : Initial assessment Pain Scale Used : 0-10 Scale RENETTA CATHERINE RN - 05/18/2019 10:13 EDT Fall Risk Scales ABCs Fall Injury Risk Identification : None WHITING Hx Falls Immediate/Within 3 Months : No [place] Secondary Diagnosis : Yes WHITING Use of Ambulatory Aid : Bed rest/Nurse assist WHITING IV Therapy or IV Access : Yes [place] Gait/Transferring : Normal, bedrest, immobile [place] Mental Status : Oriented to own ability [place] Fall Risk Score : 35 WHITING Fall Scale Risk Level : 25-45 Medium Risk [place] Fall Interventions : Adequate lighting, Assistive devices within reach, Bed in low position, Call device within reach, Fall prevention handout/education per facility policy, Hourly comfort/safety rounds, Non-slip footwear, Personal items within reach, Reinforced to call for assistance before getting out of bed, Room free of clutter/spills, Upper side-rails up, Wheels locked, Wires/Cords secured RENETTA CATHERINE RN - 05/18/2019 10:13 EDT Valuables and Belongings Valuables and Belongings : Clothing Clothing : Common streetwear Clothing Disposition : Bedside RENETTA CATHERINE RN - 05/18/2019 10:13 EDT Pain Scale Intensity : 0 RENETTA CATHERINE RN - 05/18/2019 10:13 EDT Image 4 - Images currently included in the form version of this document have not been included in the text rendition version of the form. documented in this encounter Plan of Treatment Upcoming Encounters Date Type Department Care Team (Late st Contact Info) Description 12/26/2025 10:00 AM EDT Office Visit [facility] Neurology - [address] [facility] [address] [place] [phone] Lino Solis MD [address] [facility] [address] [place] [address] documented as of this encounter Visit Diagnoses Not on filedocumented in this encounter Care Teams Edi Coordinator Relationship Specialty Start Date End Date Ronaldo Kong MD [address] [place] [address] [place] [address] PCP - General General Internal Medicine 12/24/2210/19 Tanna Finch, OMAR [address] [place] [phone] PCP - General Nurse Practitioner 11/04/24 documented as of this encounter
--- OUTSIDE RECORDS SUMMARY | 2025-09-22 10:01 | XMS_ITS | Encounter Summary ---
Author Organization [employer] ([place], [place], [place], [place], [place]) Address [address] [place] [address] Care Team Providers Care Glost Kiln Placer Name Role Phone Ronaldo Kong MD Primary Care Provider [phone] Tanna Finch APRN Primary Care Provid er Encounter Details Date Type Department Care Team (Late st Contact Info) Description 06/06/2020 Transcribed Document [facility] [place] [address] [place] [address] ProviderJorje MD [address] [place] [address] Social History Tobacco Use Types Packs/Day Years Used Date Smoking Tobacco: Never Assessed Comments Unknown Sex and Gender Information Value Date Recorded Sex Assigned at Female 04/17/2022 4:47 PM CDT Legal Sex Female 3:02 PM CDT Gender Identity Female 04/17/2022 4:47 PM CDT Sexual Orientation Not on file documented as of this encounter Miscellaneous Notes * [employer] Conversion Note - Historical ProviderMD - 06/06/2020 4:58 PM CDT Provider Notification Entered On: 06/06/2020 16:59 EDT Performed On: 06/06/2020 16:58 EDT by Emperatriz Bell RN-Resource Provider Notification Provider Response : Orders received Emperatriz Bell RN-Resource - 06/06/2020 16:59 EDT documented in this encounter Plan of Treatment Upcoming Encounters Date Type Department Care Team (Late st Contact Info) Description 12/26/2025 10:00 AM EDT Office Visit [facility] Neurology - [address] [facility] [address] [place] [phone] [place] [address] [place] [address] [address] [place], [place] [id number] documented as of this encounter Visit Diagnoses Not on filedocumented in this encounter Care Teams Glost Kiln Placer Relationship Specialty Start Date End Date Ronaldo Kong MD [address] [place] [address] [place] [address] PCP - General General Internal Medicine 12/24/2210/19 Tanna Finch APRN [address] [place] [phone] PCP - General Nurse Practitioner 11/04/24 documented as of this encounter
--- OUTSIDE RECORDS SUMMARY | 2025-09-22 10:01 | XMS_ITS | Clinical Summary ---
Author Organization [facility] Address [address] [id number] Care Team Providers Care Framework Developer Name Role Phone System, Provider Not In Primary Care Provider Un available Allergies Active Allergy Reactions Criticality Noted Date Comments Adhesive Tape Rash Low 09/08/2022 OK with paper tape Sulfamethoxazole-Trimetho prim Nausea Only Low 07/13/2024 Diphenhydramine Hives Medium 10/01/2010 Doxycycline Nausea Only Low 01/28/2023 Meclizine Rash Low 08/12/2022 Metformin Nausea Only Low 05/09/2024 Semaglutide(0.25 Or 0.5mg-Dos) Nausea And Vomiting Low 05/09/2024 Sulfa Antibiotics Nausea Only High 06/01/2025 Tetanus Immune Globulin Hives Low 09/24/2022 Tetanus Toxoid-Containing Vaccines Hives Low 11/28/2017 Medications zonisamide (ZONEGRAN) 100 MG capsule Take 530 mg by mouth 3 (Three) Times a Day. Active baclofen (LIORESAL) 10 MG tablet Take 1 tablet by mouth 4 (Four) Times a Day. Active Emgality 120 MG/ML auto-injector pen Inject 1 mL under the skin into the appropriate area as directed Every 30 (Thirty) Days. Last dose 07/25/23 Active Nurtec 75 MG dispersible tablet Take 75 tablets by mouth As Needed. As needed Active cetirizine (zyrTEC) 10 MG tablet TAKE ONE TABLET BY MOUTH ONCE A DAY 30 tablet 3 024 Active lamoTRIgine (LaMICtal) 150 MG tablet Take 1 tablet by mouth Daily. 2 tablets once daily Active nystatin (MYCOSTATIN) 157417 UNIT/GM powderIndications :Candidal intertrigo Apply topically to the appropriate area as directed 3 (Three) Times a Day. 60 g 1 Active fluticasone (FLONASE) 50 MCG/ACT nasal spray USE 2 SPRAYS IN EACH NOSTRIL ONCE A DAY NEEDED FOR ALLERGIES 16 g 3 Active albuterol sulfate HFA 108 (90 Base) MCG/ACT inhaler Active Trelegy Ellipta 100-62.5-25 MCG/ACT inhaler Active QUEtiapine (SEROquel) 50 MG tablet Active rOPINIRole (REQUIP) 2 MG tablet Take 2 tablets by mouth every night at bedtime. Active aspirin 81 MG EC tablet Take 1 tablet by mouth Daily. Active dexlansoprazole (DEXILANT) 60 MG capsule TAKE ONE CAPSULE BY MOUTH ONCE a DAY Active Linzess 145 MCG capsule capsule TAKE ONE CAPSULE BY MOUTH ONCE A DAY 30 MINUTES BEFORE MEAL Active desvenlafaxine (PRISTIQ) 50 MG 24 hr tablet Take 1 tablet by mouth Daily. Active ondansetron ODT (ZOFRAN-ODT) 4 MG disintegrating tablet DISSOLVE 2 TABLETS ON THE TONGUE 2 TIMES A DAY NEEDED Active spironolactone (ALDACTONE) 25 MG tablet Take 1 tablet by mouth Daily. 30 tablet 11 Active atorvastatin (LIPITOR) 80 MG tablet Take 1 tablet by mouth Daily. Active vitamin B-12 (CYANOCOBALAMIN) 1000 MCG tablet TAKE 1 TABLET BY MOUTH ONCE A DAY BEFORE MEAL Active Restasis 0.05 % ophthalmic emulsion instill 1 drop into THE affected eye(s) 2 TIMES A DAY Active famotidine (PEPCID) 20 MG tablet Take 1 tablet by mouth Every 12 (Twelve) Hours. Active folic acid (FOLVITE) 1 MG tablet Take 1 tablet by mouth Daily. Active nicotine (NICODERM CQ) 21 MG/24HR patch APPLY ONE PATCH TO SKIN EVERY DAY REMOVE OLD PATCH BEFORE APPLYING NEW PATCH Active pregabalin (LYRICA) 25 MG capsule Take 1 capsule by mouth. 025 Active Ozempic, 0.25 or 0.5 MG/DOSE, 2 MG/3ML solution pen-injector INJECT 0.5 MG SUBCUTANEOUSLY ONCE WEEKLY Active carvedilol (COREG) 12.5 MG tablet TAKE ONE TABLET BY MOUTH 2 TIMES A DAY 180 tablet 1 025 Active furosemide (LASIX) 20 MG tabletIndications :Chronic diastolic (congestive) heart failure TAKE ONE TABLET BY MOUTH 2 TIMES A DAY. TAKE ONE TABLET NEEDED FOR AGRESSIVE EDEMA OR WEIGHT GAIN GREATER THAN 2 POUNDS OVER 24 HOURS 180 tablet 1 025 Active carvedilol (COREG) 12.5 MG tablet TAKE ONE TABLET BY MOUTH 2 TIMES A DAY 60 tablet 5 025 2024 Discontinued furosemide (LASIX) 20 MG tabletIndications :Chronic diastolic (congestive) heart failure TAKE ONE TABLET BY MOUTH 2 TIMES A DAY. TAKE ONE TABLET NEEDED FOR AGRESSIVE EDEMA OR WEIGHT GAIN GREATER THAN 2 POUNDS OVER 24 HOURS 60 tablet 2 025 2024 Discontinued Active Problems Problem Noted Date Diagnosed Date [...] complaints of nausea. 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 Wei Diamond in [place]. Denies any associated vomiting, diarrhea or abdominal pain with her nausea. States she is lost 30 pounds in the last 2 months due to her nausea and lack of appetite -Patient Zofran increased to 8 mg every 6 hours as needed -Per a prior discussion with her and Dr. Kong referral to Dr. Wei Diamond in [place] placed today. She is going to be [...] EDT): Patient had lab testing through [facility] ER yesterday having been diagnosed with UTI, [...] A1c of 7.6% during recent hospitalization at [facility], previously 6.8% in 03/2024. She [...] Update yearly screening low-dose chest CT with [id number] history of smoking ongoing. Advised regarding need for smoking cessation for health risk reduction. BRENDA treated with BiPAP 11/30/2023 Assessment & Plan (01/17/2025 11:04 AM EDT): She is currently on BiPAP therapy and is using a DreamStation BiPAP device. She feels like it is [...] A1c of 7.6% during recent hospitalization at [facility], previously 6.8% in 03/2024. She [...] Shortness of breath 07/20/2023 Assessment & Plan (08/22/2025 3:00 PM EST): Assessment & Plan (07/26/2025 10:09 AM EDT): Assessment & Plan (07/28/2023 12:51 PM EDT): [...] of lower extremity 07/20/2023 Assessment & Plan (08/22/2025 3:00 PM EST): Assessment & Plan (07/26/2025 9:41 AM EDT): Assessment & Plan (07/28/2023 12:50 PM EDT): [...] and lateral Pacemaker 05/10/2023 Assessment & Plan (08/22/2025 3:00 PM EST): Assessment & Plan (07/26/2025 9:41 AM EDT): Assessment & Plan (02/08/2025 5:25 PM EDT): [...] EST): No evidence of coronary disease per [facility] in 12/2022, continue risk factor modification. [...] drinking soda. She has not utilized any [id number] medications such as AZO for her symptoms. [...] Assessment & Plan (11/30/2023 6:11 PM EST): [id number] smoker at 1 pack/day. Strongly advised need [...] study. Proceed with left heart cath at Assessment & Plan (12/18/2022 5:28 PM EST): She was last seen November 25, 2022 for an ER follow-up on chest pain that she described as very severe in nature and very intense onset. Her pain was a 10 out of 10 and radiating from her left neck down her left arm. At the ER she had serial troponins to rule out an AL. Today she reports that she has had [...] and presented to the emergency room at [facility] about 1 week ago. She had an ER visit for chest pain. Her chest pain was a 10 out of 10 and radiating to her left neck and her left arm. At the emergency room she had serial troponins to rule out AL. She had a chest x-ray showing her [...] check. I have requested her labs from [facility]. She was given oral potassium at [...] cardiology referral to Dr. Jerson Win in [place], and per her request we will make [...] diastolic (congestive) heart failure 06/2022 Overview (11/30/2023): [facility] 12/2022 with normal coronary arteries Echocardiogram 07/21/2023: Left ventricular ejection fraction appears to be 61 - 65%. Left ventricular wall thickness is consistent with mild concentric hypertrophy. Left ventricular diastolic function is consistent with (grade I) impaired relaxation. There is mild, bileaflet mitral valve thickening present. Estimated right ventricular systolic pressure from tricuspid regurgitation is normal (<35 mmHg). Assessment & Plan (08/22/2025 3:00 PM EST): {CHF (Optional):23808} Orders: XR Chest 2 View Assessment & Plan (07/26/2025 9:41 AM EDT): {CHF (Optional):37292} Orders: XR Chest 2 View; Future proBNP; Future Basic Metabolic Panel; Future Assessment & Plan (09/22/2024 8:44 PM EST): [...] trace dependent edema, during recent hospitalization at [facility] unit had switching her Jardiance 10 mg [...] EF 61 to 65% in 07/2023 with [facility] revealing normal coronary arteries in 12/2022. She [...] 1:05 PM EDT): Status post hospitalization at [facility] in 04/2024 for suicidal ideation without [...] ideation without plan, no HI, admitted to [facility] from 04/23 through 04/29/2024, discharged [...] the Pristiq. 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 Assessment & Plan (02/23/2024 2:32 PM [...] moods reported. No SI/HI. Keep related to advanced manufacturing consultant follow- up. Dyspepsia 05/27/2022 Assessment & [...] suppurativa 05/27/2022 Hypertension 05/27/2022 Assessment & Plan (08/22/2025 3:00 PM EST): {Hypertension is (optional):[id number]} Assessment & Plan (07/26/2025 9:41 AM EDT): {Hypertension is (optional):[id number]} Assessment & Plan (09/22/2024 8:44 PM EST): [...] having been discontinued during recent hospitalization at [facility] given acute kidney injury with [...] (obstructive sleep apnea) 05/27/2022 Assessment & Plan (08/22/2025 3:00 PM EST): Assessment & Plan (07/26/2025 9:41 AM EDT): Assessment & Plan (09/09/2023 8:30 AM EST): Patient reports good compliance with PAP therapy, followed by Dr. Hall Assessment & Plan (12/31/2022 6:09 PM EDT): Good control and compliance with PAP therapy, will continue. Assessment & Plan (12/22/2022 8:37 AM EST): She has a known history of obstructive sleep apnea. Her original study was completed at [facility]. She is currently on a BiPAP therapy. [facility]. She reports that she is a faithful user of PAP therapy. She denies any excessive daytime sleepiness or napping. She now wishes to follow her sleep apnea at this clinic. Supply order is sent to the DME of her choice. I did receive her sleep study from [facility] this is a split study with [...] Encounters Date Type Department Care Team Description 09/06/2025 Telephone [facility] [address] [place] [phone] Daphney Hall MD 09/05/2025 Refill [facility] [address] [place] [phone] Dania Gray APRN Med Refill 08/22/2025 2:30 PM EST Office Visit [facility] [address] [place] [phone] Sophy Mcgraw APRN Swelling of lower extremity (Primary Dx); Shortness of breath; Primary hypertension; Pacemaker; BRENDA (obstructive sleep apnea); Nonrheumatic mitral valve regurgitation; Chronic diastolic (congestive) heart failure; Pure hypercholesterolemia 08/22/2025 Travel 07/26/2025 9:30 AM EDT Office Visit [facility] [address] [place], [place] [address] Sophy Mcgraw APRN Swelling of lower extremity (Primary Dx); Shortness of breath; Primary hypertension; Pacemaker; Pure hypercholesterolemia; BRENDA (obstructive sleep apnea); Nonrheumatic mitral valve regurgitation; Chronic diastolic (congestive) heart failure 07/26/2025 Travel 07/24/2025 Travel 07/18/2025 Telephone [facility] [address] [place] [phone] Daphney Hall MD CRISTEN K WAESPE, MD- MEDICAL CONCERN from Last 3 Months Immunizations Immunization Administration Dates Next Due COVID-19 (Selatra) Purple Cap Monovalent 02/10/20 21,01/19/2021 Fluzone >6mos 07/11/2019 Fluzone (or Fluarix & Flulaval for VFC) >6mos Fluzone Quad >6mos (Multi-dose) 07/04/2022 Influenza TIV (IM) 07/11/2019 Influenza, Unspecified 07/04/2022,07/11/2019 Pneumococcal Conjugate 20-Valent (PCV20) 022 Family History Medical History Relation Name Comments Hyperlipidemia Brother 1 Christiano Jr Hypertension Brother 1 Christiano Jr Other Brother 1 Christiano Jr GLUCOSE INTOLER ANCE Hypertension Brother 2 Other Brother 2 GLUCOSE INTOLER ANCE Hypertension Brother 3 Coronary artery disease Father CABG Heart attack Father Anemia Mother Mary Glaucoma Mother Mary Hyperlipidemia Mother Mary Hypertension Mother Mary Mental illness Mother Mary Relation Name Status Comments Brother 1 Christiano Jr Brother 2 Brother 3 Father (Age 62) Mother Mary Alive Social History Tobacco Use Types Packs/Day [...] Pulse 83 08/22/2025 2:19 PM EST Temperature 36.6 C (97.8 F) 07/18/2024 11:26 AM EDT Respiratory Rate 18 07/18/2024 11:26 AM EDT Oxygen Saturation 93% 08/22/2025 2:19 PM EST Inhaled Oxygen Concentration - - Weight 121 kg (267 lb) 08/22/2025 2:19 PM EST Height 162.6 cm (5' 4 ) 08/22/2025 2:19 PM EST Body Mass Index 45.83 08/22/2025 2:19 PM EST Plan of Treatment Upcoming Encounters Date Type Department Care Team (Late st Contact Info) Description 11/13/2025 11:00 AM EST Office Visit [facility] [address] [place] [address] [place] [address] [place] [address] 11/13/2025 11:00 AM EST Clinical Support No Requirements [facility] [address] [place] [address] [place] [phone] 12/20/2025 1:30 PM EST Office Visit [facility] [address] [place] [address] [place] [phone] Daphney Hall MD [address] [place] [address] [place] [address] 12/20/2025 1:30 PM EST Clinical Support No Requirements [address] [place] [phone] Health Maintenance Due Date Last Done Comments Annual Gynecologic Pelvic an d Breast Exam 1970 Hepatitis B (1 of 3 - 19+ 3- dose series) 1989 COLOGUARD 2015 COLON CANCER SCREENING 5 YEA R SIGMOIDOSCOPY [address] COLONOGRAPHY 2015 FECAL OCCULT BLOOD TEST 2015 FIT Testing (1 year) 2015 URINE MICROALBUMIN-CREATININ E RATIO (uACR) 04/10/2023 04/10/2022 DIABETIC EYE EXAM 06/24/2024 06/24/2023 (Yoel vuong-Reported (Performed Externally)) ANNUAL PHYSICAL 11/30/2024 11/30/2023 DIABETIC FOOT EXAM 12/28/2024 12/29/2023, 0 12/29/2023, 12/29/2023, Additional history exists LUNG CANCER SCREENING 01/04/2025 01/05/2024, 023 MAMMOGRAM 01/05/2025 12/29/2023, 12/17, 06/04/2021, Additional history exists HEMOGLOBIN A1C 01/15/2025 07/18/2024, 02/16, 01/25/2024, Additional history exists INFLUENZA VACCINE 05/19/2025 08/30/2024, , 07/04/2022, Additional history exists LIPID PANEL 03/08/2026 03/08/2025, 11/19, 01/15/2023, Additional history exists COLONOSCOPY 01/11/2035 01/11/2025, 02/16, 01/22/2023, Additional history exists COLORECTAL CANCER SCREENING 01/11/2035 Pneumococcal Vaccine 50+ Completed 11/26/2022, 06/19 HEPATITIS C SCREENING Completed 11/27/2022 ZOSTER VACCINE Completed 11/21/2024, 10/17/2024 Medical Devices Implanted Type Area Laboratory Courier Device Identifier Shelf Expiration Date Model / Serial / Lot Hip Implant Knee Implant Hemost Abs Surgicel Pwdr 3gm - [id number] Implanted:Qty : 1 on 08/12/2022 by Daphney Hall MD at Implant [employer] J AND J [id number] / / Kt Ld Stim Tined Axonics W/2/Sty Str/Crv - [id number] - [id number] Implanted:Qty : 1 on 08/13/2023 by Reta Lee MD at Implant N/A: Sacrum [employer] 02/05/2026 1201 / [id number] / Neurostm Sacral/Nerv Axonics Nonrechg W/Torq Wrench - [id number] - [id number] Implanted:Qty : 1 on 08/13/2023 by Reta Lee MD at Implant N/A: Sacrum [employer] 03/11/2024 [id number] / [id number] / Ld Pm Tendril Sts 6f58cm [id number] - [id number] - [id number] Implanted:Qty : 1 on 08/12/2022 by Daphney Hall MD at [employer] 03/18/[id number] / [id number] / Ld Pm Tendril Sts 6f52cm [id number] - [id number] - [id number] Implanted:Qty : 1 on 08/12/2022 by Daphney Hall MD at [employer] 01/16/[id number] / [id number] / Gen Pm Assurity Mri Dr Foster [id number] - [id number] - [id number] Implanted:Qty : 1 on 08/12/2022 by Daphney Hall MD at Pacemaker [employer] 01/17/2024 [id number] / [id number] / Pain Pump Pain Pump Procedures Procedure Name Priority Date/Time Associated Diagnosis Comments REMOTE DEVICE CHECK 09/07/2025 4 :18 AM EST SCANNED - PULMONARY RESULTS 08/22/2025 XR CHEST 2 VW Routine 08/22/2025 Chronic diastolic (congestive) heart failure BASIC METABOLIC PANEL Routine 08/21/2025 Chronic diastolic (congestive) heart failure SCANNED - PULMONARY RESULTS 07/26/2025 LIPID PANEL Routine 03/08/2025 Pure hypercholesterolemia POCT GLYCOSYLATED HEMOGLOBIN (HGB A1C) Routine 07/18/2024 12:56 PM EDT Type 2 diabetes mellitus without complication, without long-term current use of insulin CT CHEST LOW DOSE WO CANCER SCREENING Routine 01/05/2024 Screening for lung cancer SCANNED - MAMMO 12/29/2023 SCANNED - COLONOSCOPY 03/04/2023 HEPATITIS C ANTIBODY Routine 11/27/2022 2:35 PM EST Encounter for general adult medical examination with abnormal findings Need for hepatitis C screening test from Last 3 Months or Most Recently Relevant to Health Maintenance Results * Pulmonary Results Scan (08/22/2025) Sophy Mcgraw APRN PFT ORDERABLES Final Resu lt * XR Chest 2 View (08/22/2025) Anatomical Region Laterality Modality Body N/A Radiographic Amanda ging Sophy Mcgraw APRN IMG DIAGNOSTIC IMAGING ORD ERABLES Final Result * Basic Metabolic Panel (08/21/2025) Blood Sophy Vazquez Mcgraw APRN LAB BLOOD ORDERABLES Final Result Performing Organization Address [facility] Co de Phone Number [facility]
[address] [place] [address], [place] [phone] * Pulmonary Results Scan (07/26/2025) Sophy Mcgraw APRN PFT ORDERABLES Final Resu lt * Lipid Panel (03/08/2025) Blood Daphney Hall MD LAB BLOOD ORDERABLES Final R esult Performing Organization Address [facility] Co de Phone Number [facility]
[address] [place] [address], [place] [phone] * (ABNORMAL) POC Glycosylated Hemoglobin (Hb A1C) (07/18/2024 12:56 PM EDT) Hemoglobin A1C 6.3(A) 4.5 - 5.7 % [facility] Lot Number [id number] [facility] Expiration Date 04/07/2026 [facility] Blood 07/18/2024 12:5 6 PM EDT us Ronaldo Kong MD POINT OF CARE TEST ORDERABLES Final Result Performing Organization Address [facility] Co de Phone Number [facility]
[address] [place] [address], [place] [phone] * CT Chest Low Dose Cancer Screening WO (01/05/2024) Anatomical Region Laterality Modality Chest Computed Tomogra phy us Ronaldo Kong MD IMG CT ORDERABLES Final Result * MAMMO Scan (12/29/2023) Anatomical Region Laterality [...] support the diagnosis of acute HCV infection. [facility] Hepatitis C Virus (HCV) RNA, Diagnosis, VALE (728737) and Hepatitis C Virus (HCV) Antibody with reflex to Quantitative Real-time PCR ([id number]). Blood Structure of left upper limb / Unknown 11/27/2022 2:35 PM EST 11/27/2022 Comment:Blood Release to pat i Narrative [facility] (AMBULATORY) - 11/28/2022 10:07 AM EST Performed at: [address] [id number] Electrician Locomotive: Walter Corona PhD, Phone: [phone] us Ronaldo Kong MD LAB BLOOD ORDERABLES Final Res ult [facility] [address] [place] [address], [place] [phone] [facility] [address] [place] [address], [place] [phone] from Last 3 Months or Most Recently Relevant to Health Maintenance Insurance [employer] [place], [place] [id number] [facility] Care Teams Framework Developer Relationship Specialty Start Date End Date System, [place] [address] PCP - General 02/14/25
--- OUTSIDE RECORDS SUMMARY | 2025-09-22 10:01 | XMS_ITS | Encounter Summary ---
Author Organization [employer] ([place], [place], [place], [place], [place]) Address [address] [place] [address] Care Team Providers Care Ic Engineer Name Role Phone Ronaldo Kong MD Primary Care Provider [phone] Tanna Finch APRN Primary Care Provid er Encounter Details Date Type Department Care Team (Late st Contact Info) Description 06/06/2020 Transcribed Document [facility] [place] [facility] [address] ProviderJorje MD [address] [place] [address] Social History Tobacco Use Types Packs/Day [...] Conversion Note - Jorje ProviderMD - 06/06/2020 9:11 PM CDT Patient: FRANNIE NUÑEZ Age: 50 years Sex: Female : 1970 Associated Diagnoses: None Author: JUAREZ IRWIN MD-CAR Chief Complaint I am SOB History of Present Illness 50 YOWF with h/o current smoking, morbid obesity ,BE HTN, type 2 DM, BRENDA on BiPAP, HFpEF and reportedly normal cardiac catheterization and normal 2 D Echo last year. She follows with Dr Royal on a routine basis. She presented to [facility] thi am with 2 wk hx of progressive and severe SOB with minimal activity that gets better quickly with rest. Increased weight gain and abdominal girth, three pillow orthopnea and PND as well as increasing lower extremity swelling. Symptoms worsened over the past 24 hrs and became constant lasting all day long. She reports no change in medications or increased salt intake or anemia. She denies chest pain or discomfort. She denies cough fever or chills. Review of Systems Constitutional: No fever, No chills, No sweats. Eye: No blurring, No double vision. Ear/Nose/Mouth/Throat: No nasal congestion, No sore throat. Respiratory: Shortness of breath, No cough. Cardiovascular: Negative except as documented in history of present illness. Gastrointestinal: No nausea, No vomiting, No diarrhea, No heartburn, No abdominal pain. Genitourinary: No dysuria, No hematuria. Hematology/Lymphatics: No bruising tendency, No bleeding tendency. Endocrine: No excessive thirst, No cold intolerance, No heat intolerance, No excessive hunger. Immunologic: Not immunocompromised, No recurrent fevers. Musculoskeletal: No back pain, No joint pain. Integumentary: No rash, No breakdown, No skin lesion. Neurologic: No confusion, No headache. Psychiatric: No anxiety, No depression. Health Status Allergies: Allergic Reactions (Selected) Severity Not Documented Benadryl- No reactions were documented. Tetanus immune globulin- No reactions were documented., Allergies (2) Active Reaction Benadryl None Documented tetanus immune globulin None Documented Current medications: (Selected) Inpatient Medications Ordered Colace: 100 mg, Oral, BID Lasix: 40 mg, Oral, Daily Naprosyn: 500 mg, Oral, BID, PRN: Pain (Mild 1-3) Normal Saline 1,000 mL: 10 mL/Hr, IntraVENous Normal Saline Flush: 10 mL, IV Push, Q12H Normal Saline Flush: 10 mL, IV Push, See Comment, PRN: IV Use Percocet 5/325 oral tablet: 1 Tab, Oral, Q6H, PRN: Pain (Severe 7-10) Tylenol: 650 mg, Oral, Q4H, PRN: Pain (Mild 1-3) Vitamin C: 500 mg, Oral, Daily Zofran: 4 mg, IV Push, Q6H, PRN: Nausea acetaminophen-HYDROcodone 325 mg-5 mg oral tablet: 1 Tab, Oral, Q4H, PRN: Pain (Moderate 4-6) bumetanide injection 12 mg [1 mg/Hr] + Sodium Chloride 0.9% intravenous solution 72 mL: 10 mL/Hr, IntraVENous dilTIAZem: 240 mg, Oral, Daily ferrous sulfate: 325 mg, Oral, Daily lamoTRIgine: 25 mg, Oral, TID magnesium sulfate: 2 Gram, 50 mL, 25 mL/Hr, IV Piggyback, On-CALL morphine: 2 mg, IV Push, Q5Min, PRN: Pain (Severe 7-10) potassium chloride 20 mEq oral tablet, extended release: 40 mEq, 2 Tab, Oral, 1-Time, PRN: Other (See Comment) potassium chloride 20 mEq oral tablet, extended release: 60 mEq, 3 Tab, Oral, On-CALL Documented Medications Documented ARIPiprazole: 10 mg, Oral, Daily, 0 Refill(s) DilTIAZem (Eqv-Tiazac) 240 mg/24 hours oral capsule, extended release: Cap, Oral, Daily, 0 Refill(s) Percocet 5/325 oral tablet: 1 Tab, Oral, Q6H, PRN: for pain, 0 Refill(s) Vitamin C 500 mg oral tablet: Tab, Oral, Daily, 0 Refill(s) Vitamin D3 50,000 intl units oral capsule: 1 Cap, Oral, Weekly, 12 Cap, 0 Refill(s) atorvastatin 80 mg oral tablet: Tab, Oral, Daily, 0 Refill(s) carisoprodol 350 mg oral tablet: 1 Tab, Oral, TID, 0 Refill(s) ferrous sulfate 325 mg (65 mg elemental iron) oral tablet: Tab, Oral, TID, 0 Refill(s) folic acid 1 mg oral tablet: Tab, Oral, Daily, 0 Refill(s) furosemide 40 mg oral tablet: Tab, Oral, Daily, 0 Refill(s) hydrOXYzine hydrochloride 50 mg oral tablet: 1 Tab, Oral, TID, PRN: as needed for anxiety, 0 Refill(s) hydroCHLOROthiazide-lisinopril 12.5 mg-20 mg oral tablet: 1 Tab, Oral, BID, 90 Tab, 0 Refill(s) lamoTRIgine 25 mg oral tablet: Tab, Oral, TID, 0 Refill(s) levothyroxine 88 mcg (0.088 mg) oral tablet: 1 Tab, Oral, Daily, 60 Tab, 0 Refill(s) magnesium gluconate 500 mg oral tablet: 1 Tab, Oral, BID, 28 Tab, 0 Refill(s) naproxen 500 mg oral delayed release tablet: Tab, Oral, BID, PRN: Pain, 0 Refill(s) pantoprazole 40 mg oral delayed release tablet: 1 Tab, Oral, Daily, 30 Tab, 0 Refill(s) potassium chloride 20 mEq oral tablet, extended release: 1 Tab, Oral, TID, 0 Refill(s) promethazine 25 mg oral tablet: Tab, Oral, TID, PRN: as needed for nausea/vomiting, 0 Refill(s) traZODone 100 mg oral tablet: 1 Tab, Oral, At Bedtime, 0 Refill(s) venlafaxine 150 mg oral capsule, extended release: 1 Cap, Oral, Daily, 0 Refill(s) venlafaxine 75 mg oral tablet, extended release: 1 Tab, Oral, Daily, 0 Refill(s) zonisamide 100 mg oral capsule: 1 Cap, Oral, BID, 1 tabs in the morning and 2 tabs at night, 60 Cap, 0 Refill(s), Medications (19) Active Scheduled: (9) #NaCl 0.9% *FLUSH* inj 10 mL 10 mL, IV Push, Q12H ascorbic acid 500 mg tab 500 mg 1 Tab, Oral, Daily diltiazem CR24 240 mg cap 240 mg 1 Cap, Oral, Daily docusate sodium 100 mg cap 100 mg 1 Cap, Oral, BID ferrous sulfate 325 mg EC tab 325 mg 1 Tab, Oral, Daily furosemide 40 mg tab 40 mg 1 Tab, Oral, Daily lamoTRIgine 25 mg tab 25 mg 1 Tab, Oral, TID magnesium sulfate 2 Gram 50 mL, IV Piggyback, On-CALL potassium chloride CR 20 mEq tab 60 mEq 3 Tab, Oral, On-CALL Continuous: (2) bumetanide 12 mg [1 mg/Hr] + NaCl 0.9% 72 mL 72 mL, IntraVENous, 10 mL/Hr NaCl 0.9% 1,000 mL 1,000 mL, IntraVENous, 10 mL/Hr PRN: (8) #NaCl 0.9% *FLUSH* inj 10 mL 10 mL, IV Push, See Comment acetaminophen 325 mg tab 650 mg 2 Tab, Oral, Q4H acetaminophen/HYDROcodone 325/5 mg tab 1 Tab, Oral, Q4H acetaminophen/oxyCODONE 325/5 mg tab 1 Tab, Oral, Q6H morphine 2 mg/1 ml inj 2 mg 1 mL, IV Push, Q5Min naproxen 250 mg tab 500 mg 2 Tab, Oral, BID ondansetron 4 mg/2 mL inj 4 mg 2 mL, IV Push, Q6H potassium chloride CR 20 mEq tab 40 mEq 2 Tab, Oral, 1-Time Problem list: Medical Anxiety / SNOMED CT 93590158 / Confirmed Arthritis / SNOMED CT 8887835 / Confirmed Asthma / SNOMED CT 946863053 / Confirmed Borderline personality disorder / SNOMED CT 11127853 / Confirmed Cornea scar / SNOMED CT 787311514 / Confirmed Depression / SNOMED CT 436949069 / Confirmed Diverticulitis / SNOMED CT 197078277 / Confirmed DJD (degenerative joint disease) / SNOMED CT [id number] / Confirmed DM - Diabetes mellitus / SNOMED CT 385364928 / Confirmed Fibromyalgia / SNOMED CT 693337087 / Confirmed Folic acid deficiency / SNOMED CT 306502168 / Confirmed Glaucoma / SNOMED CT 05790476 / Confirmed History of obstructive sleep apnea / IMO 84209016 / Confirmed HTN - Hypertension / SNOMED CT 3204727354 / Confirmed Hypothyroid / SNOMED CT 007234992 / Confirmed Migraines / SNOMED CT 40000751 / Confirmed PTSD (post-traumatic stress disorder) / SNOMED CT [id number] / Confirmed Sleep apnea / SNOMED CT 136177972 / Confirmed Tobacco abuse / SNOMED CT 574876032 / Confirmed Tremors of nervous system / SNOMED CT 77099213 / Confirmed Vitamin D deficiency / SNOMED CT 02456765 / Confirmed Resolved: Endometriosis / SNOMED CT 6313292821 Resolved: Raynaud's disease / SNOMED CT 184200001 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, Active Problems (22) Anxiety Arthritis Asthma Borderline personality disorder Cornea scar Depression Diverticulitis DJD (degenerative joint disease) DM - Diabetes mellitus Fibromyalgia Folic acid deficiency Glaucoma History of obstructive sleep apnea HTN - Hypertension Hyperlipidemia Hypothyroid Migraines PTSD (post-traumatic stress disorder) Sleep apnea Tobacco abuse Tremors of nervous system Vitamin D deficiency Histories Past Medical History: Active DJD (degenerative joint disease) ([id number]) Fibromyalgia (710039073) Hypothyroid (618745787) HTN - Hypertension (2402205571) PTSD (post-traumatic stress disorder) ([id number]) Depression (834190823) DM - Diabetes mellitus (188105865) Asthma (010222237) Glaucoma (19269646) Diverticulitis (548053782) Tobacco abuse (410610373) Migraines (45032640) Sleep apnea (841363654) Vitamin D deficiency (79261323) Folic acid deficiency (728782200) Anxiety (18045001) Tremors of nervous system (05196007) Cornea scar (299696578) Borderline personality disorder (06686535) Arthritis (2410990) Resolved Endometriosis (1961946964): Resolved. Raynaud's disease (853842401): Resolved. 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 Family History: Entire family history is negative., NEGATIVE FOR PREMATURE CAD Procedure history: Hysterectomy. Neck fusion. Arthroscopic surgical procedure on knee (0558849014). Hip replacement (0062466757). Colonoscopy (923762009). Carpal tunnel release (931555581). Social History Social & Psychosocial Habits Alcohol 10/20/2017 Alcohol Use History, Social Habits No Nutrition/Health 10/20/2017 Caffeine intake amount: 3 cups a day Substance Abuse 10/20/2017 Recreational Drug Use History No Recreational Drug Use Last 12 Months No Tobacco 10/20/2017 Smoking Status Current every day smoker Smoking Frequency Within Last 30 Days Five or more cigarettes p Years of Tobacco Use 26 Packs/Tins Daily 05 11/30/2017 Smoking Status Current every day smoker Smoking Frequency Within Last 30 Days Five or more cigarettes p Tobacco Use Within Last Twelve Months Cigarettes Years of Tobacco Use 24 Packs/Tins Daily 0.5 Used Tobacco, but Quit No Second Hand Smoke Exposure Yes Smokeless Tobacco Use in Last 30 Days No Smokeless Tobacco Use History None 05/18/2019 Smoking Status 10 or more cigarettes (1/ Years of Tobacco Use 27 Packs/Tins Daily 1 . Physical Examination VS/Measurements Vital Signs/Vital Measures 06/06/2020 17:29 EDT Systolic Blood Pressure 117 mmHg Diastolic Blood Pressure 55 mmHg LOW Mean Arterial Pressure (MAP)-BMDI 67 Temperature Source Oral Temperature Mode Fahrenheit Temperature, Fahrenheit 98.2 Deg F Clinical Temperature, C 36.8 Deg C Heart Rate Monitored 77 bpm Respiratory Rate 16 Breaths/Min Oxygen Saturation 97 % 06/06/2020 16:36 EDT Systolic Blood Pressure 120 mmHg Diastolic Blood Pressure 73 mmHg Mean Arterial Pressure (MAP)-BMDI 80 Temperature Source Oral Temperature Mode Fahrenheit Temperature, Fahrenheit 98.1 Deg F Clinical Temperature, C 36.7 Deg C Heart Rate Monitored 78 bpm Respiratory Rate 16 Breaths/Min Oxygen Saturation 98 % , Vitals Signs (last 24 hrs) Last Charted Minimum Maximum Temp 98.2 (JUN 06 17:29) 98.2 (JUN 06 17:29) 98.1 (JUN 06 16:36) Mon HR 77 (JUN 06:29) 77 (JUN 06:29) 78 (JUN 06 16:36) Resp Rate 16 (JUN 06 17:29) 16 (JUN 06 16:36) 16 (JUN 06 16:36) SBP 117 (JUN 06 17:29) 117 (JUN 06 17:29) 120 (JUN 06 16:36) DBP L 55 (JUN 06 17:29) L 55 (JUN 06 17:29) 73 (JUN 06 16:36) MAP 67 (JUN 06 17:29) 67 (JUN 06 17:29) 80 (JUN 06 16:36) SpO2 97 (JUN 06 17:29) 97 (JUN 06 17:29) 98 (JUN 06 16:36) General: Alert and oriented, No acute distress. Eye: Pupils are equal, round and reactive to light, Extraocular movements are intact, Normal conjunctiva. HENT: Normocephalic, Normal hearing. Neck: Supple, Non-tender, No carotid bruit, No jugular venous distention. Respiratory: Lungs are clear to auscultation, Respirations are non-labored, Breath sounds are equal, Symmetrical chest wall expansion. Cardiovascular: Normal rate, Regular rhythm, No murmur, No gallop, Good pulses equal in all extremities, Normal peripheral perfusion, 2+ pedal edema. Gastrointestinal: Soft, Non-tender, Non-distended, Normal bowel sounds. Lymphatics: No lymphadenopathy neck, axilla, groin. Musculoskeletal: Normal range of motion, Normal strength. Integumentary: Warm, Dry, [place]. Neurologic: Alert, Oriented. Cognition and Speech: Oriented, Speech clear and coherent. Psychiatric: Cooperative, Appropriate mood & affect. Review / Management Results review: Labs (Last four charted values) WBC H 12.2 (JUN 06) HB 11.4 (JUN 06) HCT 34.1 (JUN 06) Plt 316 (JUN 06) Na 140 (JUN 06) 140 (JUN 06) K L 3.0 (JUN 06) L 3.0 (JUN 06) Cl 105 (JUN 06) 105 (JUN 06) CO2 27 (JUN 06) 27 (JUN 06) BUN 12 (JUN 06) 13 (JUN 06) Cr 0.85 (JUN 06) 0.82 (JUN 06) Glu R H 126 (JUN 06) H 124 (JUN 06) Ca 8.9 (JUN 06) 8.6 (JUN 06) PT 10.1 (JUN 06) INR 1.0 (JUN 06) PTT 28.3 (JUN 06) AST 11 (JUN 06) ALT 25 (JUN 06) ALK P H 144 (JUN 06) T Bili 0.2 (JUN 06) PTN 7.0 (JUN 06) ALB 3.6 (JUN 06) . Interpretation: EKG-NSR PRO BNP AT OTHER HOSPITAL 7.2. Impression and Plan -Acute on chronic HFpEF with or without diastolic dysfunction likely due to morbid obesity and BRENDA Plan IV Bumex 1 mg/hr x 24 hrs 2 D ECHO -BRENDA -Continue Bi PAP -Morbid obesity -Aggressive wt loss diet DM2- -Insulin coverage Electronically signed by [facility], [facility] Conversion Shuttle Fixer Cerner at 02/03/2023 4:48 PM CDT documented in this encounter Plan of Treatment Upcoming Encounters Date Type Department Care Team (Late st Contact Info) Description 12/26/2025 10:00 AM EDT Office Visit [facility] Neurology - [address] [facility] [address] [place] [address] Lino Solis MD [address] [facility] [address] [place], [place] [id number] documented as of this encounter Visit Diagnoses Not on filedocumented in this encounter Care Teams Ic Engineer Relationship Specialty Start Date End Date Ronaldo Kong MD [address] [place] [address] [place] [address] PCP - General General Internal Medicine 12/24/2210/19 Tanna Finch APRN [address] [place] [phone] PCP - General Nurse Practitioner 11/04/24 documented as of this encounter
--- OUTSIDE RECORDS SUMMARY | 2025-09-22 10:01 | XMS_ITS | Encounter Summary ---
Author Organization [employer] ([place], [place], [place], [place], [place]) Address [address] [place] [address] Care Team Providers Care Dispatch Officer Name Role Phone Ronaldo Kong MD Primary Care Provider [phone] Tanna Finch APRN Primary Care Provid er Encounter Details Date Type Department Care Team (Late st Contact Info) Description 06/06/2020 Transcribed Document [facility] [place] [facility] [place] [address] ProviderJorje MD [address] [place] [address] Social History Tobacco Use Types Packs/Day [...] Jorje ProviderMD - 06/06/2020 5:39 PM CDT Education-Cardiac Topics Entered On: 06/06/2020 17:56 EDT Performed On: 06/06/2020 17:39 EDT by Emperatriz Bell RN-Resource Teaching/Learning Assessment Barriers To Learning : None evident Highest Level of Education : University degree(s) Learning Style Preferences Patient : Verbal explanation Emperatriz Bell RN-Resource - 06/06/2020 17:56 EDT Education Topics, Cardiac Cardiac Education Grid Advance Directives : Verbalizes understanding Alcohol Restriction : Verbalizes understanding Blood Pressure Monitoring/Mgmt : Verbalizes understanding Mobile Sales Consultant : Verbalizes understanding Cardiac Equipment : Verbalizes understanding Cardiac Testing and Procedures : Verbalizes understanding Community Resources : Verbalizes understanding Compliance Strategies : Verbalizes understanding Coping/Care Regimen : Verbalizes understanding Cost Issues : Verbalizes understanding Daily Weight : Verbalizes understanding Diet/Cholesterol : Verbalizes understanding Disease Process : Verbalizes understanding Exercise Program : Verbalizes understanding Fluid Restriction : Verbalizes understanding Follow-Up Care/Appointment : Verbalizes understanding Nutritional Management : Verbalizes understanding Physical Activity : Verbalizes understanding Prognosis : Verbalizes understanding Psychosocial Adjustment : Verbalizes understanding Pulse Taking/Monitoring : Verbalizes understanding Risk Factors : Verbalizes understanding Second Hand Smoke : Verbalizes understanding Self Management : Verbalizes understanding Sexual Activity : Verbalizes understanding Smoking Cessation : Verbalizes understanding Sodium Restriction : Verbalizes understanding Symptom Identification & Action Plan *Q : Verbalizes understanding Treatment Plan : Verbalizes understanding Weight Loss : Verbalizes understanding Work and Leisure Activities : Verbalizes understanding Cardiac, Other : Verbalizes understanding Emperatriz Bell RN-Resource - 06/06/2020 17:56 EDT Medication Education Grid Med Dosage, Route, Scheduling : Verbalizes understanding Med Generic/Brand Name, Purpose, Action : Verbalizes understanding Med Precautions, Side Effects : Verbalizes understanding Med Special Administration, Storage : Verbalizes understanding Med Preadministration Procedures : Verbalizes understanding Emperatriz Bell RN-Resource - 06/06/2020 17:56 EDT documented in this encounter Plan of Treatment Upcoming Encounters Date Type Department Care Team (Late st Contact Info) Description 12/26/2025 10:00 AM EDT Office Visit [facility] Neurology - [address] [place] [phone] Lino Solis MD [address] [place] [address] [address] [place], [place] [id number] documented as of this encounter Visit Diagnoses Not on filedocumented in this encounter Care Teams Dispatch Officer Relationship Specialty Start Date End Date Ronaldo Kong MD [address] [place] [address] [place] [phone] PCP - General General Internal Medicine 12/24/2210/19 Tanna Finch APRN [address] [place] [phone] PCP - General Nurse Practitioner 11/04/24 documented as of this encounter
--- OUTSIDE RECORDS SUMMARY | 2025-09-22 10:01 | XMS_ITS | Encounter Summary ---
Author Organization [employer] ([place], [place], [place], [place], [place]) Address [address] [place] [address] Care Team Providers Care Assembly Person Name Role Phone Krissy Pfeiffer MD Primary Care Provider [phone] Tanna Finch APRN Primary Care Provid er Encounter Details Date Type Department Care Team (Late st Contact Info) Description 05/18/2019 Transcribed Document [facility] [place] [facility] [address] [place] [id number] ProviderJorje MD [address] [place] [address] Social History Tobacco Use Types Packs/Day [...] Conversion Note - Jorje ProviderMD - 05/18/2019 4:04 PM CDT [facility] [place] [id number] FRANNIE NUÑEZ :1970 Visit Time:05/18/2019 Your Visit Summary Your Care Team Admitting Physician - MAO BOWMAN MD-CAR Attending Physician - MAO BOWMAN MD-CAR Primary Care Physician - KRISSY PFEIFFER (REF), -INT Referring Physician - MAO BOWMAN MD-CAR Your Diagnosis Abnormal result of other cardiovascular function study, Abnormal result of other cardiovascular function study Discharge Vitals Temperature 36.4 ??C Heart Rate (Monitored) 76 Respiratory Rate 15 Blood Pressure 154/83 What to do next Instructions From Your Care Team Diet after Discharge: Resume usual diet as tolerated, _, _ Fluid Restriction after Discharge: _ Activity after Discharge: _, Rest and relax today, No strenuous activity Lifting Restrictions: _see post radial cardiac cath instruction sheet Weight Bearing: _ Bedrest: _ Driving after Discharge: Do not drive for 24 hours May Return to Work/School: Showering/Bathing: May shower in 24 hours, No tub bathing, soaking or swimming Notify Provider of: Wound/Incision Care after Discharge: _, _ Medical Equipment for Home Use: Home Health Services: Community Services: Follow-Up Appointments Follow Up with MILTON SIEGEL When Within 1 month Comments Follow-up as instructed Where: [address] [facility] [address] [place] [address]- [facility] (1) Medications What How Much When Instructions Next Dose ARIPiprazole 10 Milligram(s) Oral Every Day atorvastatin (atorvastatin 80 mg oral tablet) Oral Every Day carisoprodol (carisoprodol 350 mg oral tablet) 1 Tablet(s) Oral Three Times A Day cholecalciferol (Vitamin D3 50,000 intl units oral capsule) 1 Capsule(s) Oral Weekly folic acid (folic acid 1 mg oral tablet) Oral Every Day furosemide (Lasix 20 mg oral tablet) Oral Two Times A Day gabapentin (gabapentin 600 mg oral tablet) 1 Tablet(s) Oral Two Times A Day hydrochlorothiazide-lisinopril (hydroCHLOROthiazide-lisinopril 12.5 mg-20 mg oral tablet) 1 Tablet(s) Oral Every Day hydrOXYzine (hydrOXYzine hydrochloride 50 mg oral tablet) 1 Tablet(s) Oral Three Times A Day as needed for as needed for anxiety lamoTRIgine (lamoTRIgine 50 mg oral tablet, extended release) Oral Every Day levothyroxine (levothyroxine 88 mcg (0.088 mg) oral tablet) 1 Tablet(s) Oral Every Day magnesium gluconate (magnesium gluconate 500 mg oral tablet) 1 Tablet(s) Oral Two Times A Day pantoprazole (pantoprazole 40 mg oral delayed release tablet) 1 Tablet(s) Oral Every Day potassium chloride (potassium chloride 20 mEq oral tablet, extended release) 1 Tablet(s) Oral Three Times A Day promethazine (promethazine 25 mg oral tablet) Oral Three Times A Day rizatriptan (rizatriptan 10 mg oral tablet) 1 Tablet(s) Oral One Time Order as needed for as needed for migraine headache may repeat in 2 hours if response unsatisfactory tiZANidine (tiZANidine 4 mg oral tablet) Oral Two Times A Day traZODone (traZODone 100 mg oral tablet) 1 Tablet(s) Oral At Bedtime venlafaxine (venlafaxine 150 mg oral capsule, extended release) 1 Capsule(s) Oral Every Day venlafaxine (venlafaxine 75 mg oral tablet, extended release) 1 Tablet(s) Oral Every Day zonisamide (zonisamide 100 mg oral capsule) 1 Capsule(s) Oral Three Times A Day Take your medications faithfully. Do NOT skip medication. Do NOT stop taking medications without the direction of a physician. Carry a list of your medications with you at all times, and take this medication list with you to your first follow up visit. Report any side effects. Avoid herbal remedies unless discussed with your physician. As part of your treatment plan, your physician may have prescribed a limited course of a controlled substance. This medication may be given to help people with moderate or severe pain or for other medical conditions, but there are risks involved with treatment. Common side effects may include nausea, constipation, drowsiness, sweating, itching, dry mouth, and rash. More serious side effects may include cognitive and motor impairment, like problems with thinking, concentrating, alertness, and movement (e.g. slowed reflexes), and driving and operating heavy machinery can be dangerous. It is important for you to talk to your physician if you have these side effects or questions. These controlled substances can produce physical dependence and be habit-forming if taken for an extended period of time, which means that the body has gotten used to them and may experience withdrawal symptoms if they are abruptly stopped. Withdrawal symptoms can include runny nose, sweating, goose bumps, diarrhea, abdominal cramping, rapid heartbeat, difficulty sleeping, and nervousness. Please dispose of unused and medications per your retail pharmacy guidance. Allergies Benadryl tetanus immune globulin Immunizations This Visit No Immunizations Found Education Materials Moderate Conscious Sedation, Adult, Care After These [...] you are awake and alert. ??? Take [id number] and prescription medicines only as told by [...] 07/26/2014 Document Revised: 03/09/2017 Document Reviewed: 01/24/2017 [employer] Interactive Patient Education ?? 2019 [employer]. Transradial Angiogram Transradial angiogram is an imaging [...] including vitamins, herbs, eye drops, creams, and [id number] medicines. ??? Any problems you or family [...] 06/29/2013 Document Revised: 06/07/2017 Document Reviewed: 09/08/2016 [employer] Interactive Patient Education ?? 2019 [employer]. Radial Site Care Refer to this sheet [...] the radial site that usually fades within 1???2 weeks. ??? Blood collecting in the tissue (hematoma) that may be painful to the touch. It should usually decrease in size and tenderness within 1???2 weeks. Follow these instructions at home: ??? Take medicines only as directed by your health care provider. ??? You may shower 24???48 hours after the procedure or as directed [...] 11/07/2011 Document Revised: 03/12/2017 Document Reviewed: 04/23/2015 [employer] Interactive Patient Education ?? 2019 [employer] Emergency Awareness and Preventative Care STROKE is an EMERGENCY Every Minute Counts Act FAST and Check for these signs: FACE Does the face look uneven? ARM Does one arm drift down? SPEECH Does their speech sound strange? TIME Call at any sign of stroke Stroke Risk Factors Atrial Fibrillation (irregular heartbeat) Diabetes Family history of stroke Heart Disease Heavy alcohol use High Blood Pressure High Cholesterol Physical inactivity and obesity Smoking Cigarette Smoking The facts are clear, cigarette smoking will shorten your life. Smoking can cause many illnesses along the way. As a healthcare provider, we recommend that you stop smoking. Assistance with quitting is available by contacting 2-750-BSHQ-NOW. This is a free resource providing counseling, support, and referral. Or you may contact your personal physician. National Suicide Prevention Lifeline: The National Suicide Prevention Lifeline is a national network of local crisis centers that provides free and confidential emotional support to people in suicidal crisis or emotional distress 24 hours a day, 7 days a week. Don't Wait! Stop a Heart Attack Before it Starts What is a heart attack? A heart attack is damage or to a part of the heart from severely decreased or lack of blood flow to the heart. Over time, arteries can become narrow from the buildup of fat and cholesterol, which is called plaque. The plaque can rupture causing a blood clot to form. When the blood clot forms, the artery can become severely narrowed or completely blocked, causing a heart attack. Heart attack is the leading cause of in the [place]. 85% of muscle damage occurs within the first 2 hours. Delay in the recognition of heart attack symptoms increases the chances of . Know the early symptoms of a heart attack: Nausea Feeling of fullness in chest Jaw Pain Pain that travels down one or both arms Fatigue/being tired Anxiety Back Pain Chest pressure, squeezing, or discomfort Shortness of breath Sweating, or a cold sweat Feeling of impending doom There are unusual signs of a heart attack, too! Women, the elderly, and diabetics may present with atypical symptoms: Fainting/dizziness Weakness Confusion Risk Factors for a Heart Attack Some heart disease risk factors, such as age and family history, cannot be changed. Others, like smoking and lack of exercise, can be changed. Smoking High Cholesterol High Blood Pressure Family History Obesity Age Gender (Males are at higher risk) Lack of Exercise Diabetes Diet Stress Excessive Alcohol Intake If you or someone you know is experiencing the signs and symptoms of a heart attack, DON???T DELAY. Call immediately and seek help. If someone collapses, perform CPR! Do not attempt to drive if you are having symptoms of heart attack. Hands-Only CPR Why Hands-Only CPR? Hands-Only CPR has been shown to be as effective as conventional CPR for cardiac arrests that occur outside of a hospital. Survival depends on immediately receiving CPR from someone nearby. How do you perform Hands-Only CPR? There are two easy steps: Call if you see a teen or adult collapse Push hard and fast in the center of the chest at a beat of 100 beats per minute. Save a life! 4 WAYS TO GET AHEAD OF SEPSIS SEPSIS is a MEDICAL EMERGENCY. Time matters! Infections put you and your family at risk for a life-threatening condition called sepsis. Sepsis is the body's extreme response to an infection. It is life-threatening, and without timely treatment, sepsis can rapidly lead to tissue damage, organ failure, and . Sepsis happens when an infection you already have-in your skin, lungs, urinary tract or somewhere else-triggers a chain reaction throughout your body. 1 PREVENT INFECTIONS Take good care of chronic conditions. Talk to your doctor about getting the recommended vaccines. 2 PRACTICE GOOD HYGIENE Wash your hands frequently. Keep cuts or open sores clean and covered until they are healed. 3 KNOW THE SYMPTOMS Confusion or disorientation Shortness of breath High heart rate Fever, shivering, or feeling very cold Extreme pain or discomfort Clammy or sweaty skin 4 ACT FAST Get medical care IMMEDIATELY if you suspect sepsis or if you have an infection that is not getting better or is getting worse. To learn more about sepsis and how to prevent infections, visit www.cdc.gov/sepsis. Test Results Laboratory or Other Results This Visit (last charted value for your 05/18/2019 visit) Hematology 05/18/19 10:27:00 Hemoglobin POC: 11.2 Gram/dL -- Normal range between ( 12.0 and 17.0 ) Hematocrit POC: 33.0 % -- Normal range between ( 38.0 and 51.0 ) 05/18/19 10:25:00 Platelet Count: 339 K/uL -- Normal range between ( 163 and 369 ) General Chemistry 05/18/19 10:27:00 eGFR : 81 mL/min/1.73m2 eGFR NonAfrican: 67 mL/min/1.73m2 Sodium POC: 139 mmol/L -- Normal range between ( 138 and 146 ) Ca Ioniz POC: 1.18 mmol/L -- Normal range between ( 1.12 and 1.32 ) Potassium POC: 3.3 mmol/L -- Normal range between ( 3.5 and 4.9 ) Creatinine POC: 0.9 mg/dL -- Normal range between ( 0.6 and 1.3 ) BUN POC: 14 mg/dL -- Normal range between ( 8 and 26 ) CO2 POC: 28.0 mmol/L -- Normal range between ( 24.0 and 29.0 ) Chloride POC: 99 mmol/L -- Normal range between ( 98 and 109 ) Glucose POC: 98 mg/dL -- Normal range between ( 70 and 105 ) Anion Gap POC: 16.0 mmol/L -- Normal range between ( 10.0 and 20.0 ) Patient Name:FRANNIE NUÑEZ I have received and understand this information and was given the opportunity to ask questions. 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 Neurology - [address] [place] [phone] Lino Solis MD [address] [place] [id number] documented as of this encounter Visit Diagnoses Not on filedocumented in this encounter Care Teams Assembly Person Relationship Specialty Start Date End Date Krissy Pfeiffer MD [address] [place] [id number] PCP - General General Internal Medicine 12/24/2210/19 Tanna Finch APRN [address] [place] [phone] PCP - General Nurse Practitioner 11/04/24 documented as of this encounter
--- OUTSIDE RECORDS SUMMARY | 2025-09-22 10:01 | XMS_ITS | Encounter Summary ---
Author Organization [employer] ([place], [place], [place], [place], [place]) Address [address] [place] [address] Care Team Providers Care Assembler Gold Frame Name Role Phone Ronaldo Kong MD Primary Care Provider [phone] Tanna Finch APRN Primary Care Provid er Encounter Details Date Type Department Care Team (Late st Contact Info) Description 05/18/2019 Transcribed Document [facility] Cardiology [address] [place], [place] [id number] Guru Garcia MD [address] [place] [address] [address] [place] [address] Social History Tobacco Use Types Packs/Day Years Used Date Smoking Tobacco: Never Assessed Comments Unknown Sex and Gender Information Value Date Recorded Sex Assigned at Female 04/17/2022 4:47 PM CDT Legal Sex Female 3:02 PM CDT Gender Identity Female 04/17/2022 4:47 PM CDT Sexual Orientation Not on file documented as of this encounter Miscellaneous Notes * Cerner Conversion Note - Guru Garcia MD - 05/18/2019 9:00 AM EDT Patient: FRANNIE NUÑEZ Age: 48 years Sex: Female : 1970 Associated Diagnoses: None Author: GURU GARCIA MD-CAR Basic Information Cds Sales Advisor: Jennie Royal Chief Complaint chest pain, dyspnea on exertion History of Present Illness 48 year old female with history of DMII, ongoing tobacco abuse, seizures, migraines, morbid obesity, fibromyalgia, chronic hip/back pain, anxiety/depression and borderline personality disorder. She was seen by Dr Royal for evaluation of nonexertional chest pain. The pain occurred while she was sitting in yazdanism. The pain is described as a pressure that was localized in the left side of her chest and radiated down the left arm. She became diaphoretic and short of breath. The pain lasted around 15 minutes before slowly dissipating. She was taken to the [facility] ER where she was ruled out for an WI and discharged home to follow with cardiology. She underwent Lexiscan Myoview which was read as low risk but fixed inferior defect with EF 56%, TID 0.87. Echo showed no valvular disease, EF 65%. However, she has continued to complain of chest pain and dyspnea. She also reports bilateral lower extremity edema from feet to knees. The edema is present in the morning and worsens throughout the day. She has been scheduled for elective cardiac cath. Review of Systems Constitutional: Decreased activity. Eye: Negative except as documented in history of present illness. Ear/Nose/Mouth/Throat: Negative except as documented in history of present illness. Respiratory: Negative except as documented in history of present illness. Cardiovascular: Negative except as documented in history of present illness. Gastrointestinal: Negative except as documented in history of present illness. Genitourinary: Negative except as documented in history of present illness. Hematology/Lymphatics: Negative except as documented in history of present illness. Endocrine: Negative except as documented in history of present illness. Immunologic: Negative except as documented in history of present illness. Musculoskeletal: Back pain, Neck pain. Integumentary: Negative except as documented in history of present illness. Neurologic: Negative except as documented in history of present illness. Psychiatric: Anxiety, Depression. Health Status Allergies (2) Active Reaction Benadryl None Documented tetanus immune globulin None Documented Home Medications (20) Active ARIPiprazole 10 mg, Oral, Daily brompheniramine-pseudoephedrine 1 mg-15 mg/5 mL oral liquid 5 mL, PRN, Oral, Q6H buPROPion 150 mg, Oral, Daily carisoprodol 350 mg oral tablet 350 mg = 1 Tab, Oral, TID doxycycline 100 mg, Oral, BID gabapentin 600 mg oral tablet 600 mg = 1 Tab, Oral, BID hydroCHLOROthiazide-lisinopril 25 mg-20 mg oral tablet 1 Tab, Oral, BID hydrOXYzine hydrochloride 50 mg oral tablet 50 mg = 1 Tab, PRN, Oral, TID levothyroxine 88 mcg (0.088 mg) oral tablet 88 mcg = 1 Tab, Oral, Daily naproxen 220 mg, PRN, Oral, Q8H pantoprazole 40 mg oral delayed release tablet 40 mg = 1 Tab, Oral, Daily potassium chloride 20 mEq oral tablet, extended release 30 mEq = 1.5 Tab, Oral, TID predniSONE 10 mg oral tablet 10 mg = 1 Tab, Oral, Daily Restasis 0.05% ophthalmic emulsion 1 Drop, Eyes Both, BID rizatriptan 10 mg oral tablet 10 mg = 1 Tab, PRN, Oral, 1-Time traZODone 100 mg oral tablet 100 mg = 1 Tab, Oral, At Bedtime venlafaxine 150 mg oral capsule, extended release 150 mg = 1 Cap, Oral, Daily venlafaxine 75 mg oral tablet, extended release 75 mg = 1 Tab, Oral, Daily Vitamin D3 50,000 intl units oral capsule 50,000 Int Units = 1 Cap, Oral, Weekly zonisamide 100 mg oral capsule 100 mg = 1 Cap, Oral, BID Allergies: Allergic Reactions (Selected) Severity Not Documented Benadryl- No reactions were documented. Tetanus immune globulin- No reactions were documented. Current medications: (Selected) Inpatient Medications Ordered Normal Saline Flush: 10 mL, IV Push, Q12H Normal Saline Flush: 10 mL, IV Push, See Comment, PRN: IV Use Sodium Chloride 0.9% intravenous solution 500 mL: Titrate, IntraVENous aspirin: 81 mg, Oral, Daily Completed Brilinta: 180 mg, Oral, 1-Time atorvastatin: 80 mg, Oral, PREOP Prescriptions Completed zonisamide 100 mg oral capsule: 1 Cap, Oral, BID, 60 Cap, 11 Refill(s) Documented Medications Documented ARIPiprazole: 10 mg, Oral, Daily, 0 Refill(s) Lasix 20 mg oral tablet: Tab, Oral, BID, 0 Refill(s) Vitamin D3 50,000 intl units oral capsule: 1 Cap, Oral, Weekly, 12 Cap, 0 Refill(s) atorvastatin 80 mg oral tablet: Tab, Oral, Daily, 0 Refill(s) carisoprodol 350 mg oral tablet: 1 Tab, Oral, TID, 0 Refill(s) folic acid 1 mg oral tablet: Tab, Oral, Daily, 0 Refill(s) gabapentin 600 mg oral tablet: 1 Tab, Oral, BID, 0 Refill(s) hydrOXYzine hydrochloride 50 mg oral tablet: 1 Tab, Oral, TID, PRN: as needed for anxiety, 0 Refill(s) hydroCHLOROthiazide-lisinopril 12.5 mg-20 mg oral tablet: 1 Tab, Oral, Daily, 90 Tab, 0 Refill(s) lamoTRIgine 50 mg oral tablet, extended release: Tab, Oral, Daily, 0 Refill(s) levothyroxine 88 mcg (0.088 mg) oral tablet: 1 Tab, Oral, Daily, 60 Tab, 0 Refill(s) magnesium gluconate 500 mg oral tablet: 1 Tab, Oral, BID, 28 Tab, 0 Refill(s) pantoprazole 40 mg oral delayed release tablet: 1 Tab, Oral, Daily, 30 Tab, 0 Refill(s) potassium chloride 20 mEq oral tablet, extended release: 1 Tab, Oral, TID, 0 Refill(s) promethazine 25 mg oral tablet: Tab, Oral, TID, 0 Refill(s) rizatriptan 10 mg oral tablet: 1 Tab, Oral, 1-Time, may repeat in 2 hours if response unsatisfactory, PRN: as needed for migraine headache, 6 Tab, 0 Refill(s) tiZANidine 4 mg oral tablet: Tab, Oral, BID, 0 Refill(s) traZODone 100 mg oral tablet: 1 Tab, Oral, At Bedtime, 0 Refill(s) venlafaxine 150 mg oral capsule, extended release: 1 Cap, Oral, Daily, 0 Refill(s) venlafaxine 75 mg oral tablet, extended release: 1 Tab, Oral, Daily, 0 Refill(s) zonisamide 100 mg oral capsule: 1 Cap, Oral, TID, 60 Cap, 0 Refill(s) Deleted Restasis 0.05% ophthalmic emulsion: 1 Drop, Eyes Both, BID, 0 Refill(s) brompheniramine-pseudoephedrine 1 mg-15 mg/5 mL oral liquid: 5 mL, Oral, Q6H, PRN: Cough, 0 Refill(s) buPROPion: 150 mg, Oral, Daily, 0 Refill(s) doxycycline: 100 mg, Oral, BID, 0 Refill(s) hydroCHLOROthiazide-lisinopril 25 mg-20 mg oral tablet: 1 Tab, Oral, BID, 30 Tab, 0 Refill(s) naproxen: 220 mg, Oral, Q8H, PRN: as needed for pain, 0 Refill(s) predniSONE 10 mg oral tablet: 1 Tab, Oral, Daily, day 1=6Tab, day 2= 5 Tab, day 3= 4 Tab, day 4= 3 Tab, day 5= 2 Tab, day 6= 1 Tab, then DC, 0 Refill(s) Problem list: Active Problems Anxiety Arthritis Asthma Borderline personality disorder Depression Diverticulitis DM - Diabetes mellitus Fibromyalgia HTN - Hypertension Hypothyroid Migraines PTSD (post-traumatic stress disorder) Sleep apnea Tobacco abuse Histories No education data available. 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 Raynaud's disease (916294248): Resolved. 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 Family History: Entire family history is negative. Procedure history: Hysterectomy. Neck fusion. Social History Social & Psychosocial Habits Alcohol [...] Packs/Tins Daily 1 . Physical Examination VS/Measurements No qualifying data available General: Alert and oriented. Eye: Pupils are equal, round and reactive to light. HENT: Normocephalic. Neck: Supple, No carotid bruit, No jugular venous distention. Respiratory: Lungs are clear to auscultation, Respirations are non-labored, Breath sounds are equal. Cardiovascular: Normal rate, Regular rhythm, No murmur, No gallop, Good pulses equal in all extremities. Gastrointestinal: Soft, Non-tender, Non-distended, Normal bowel sounds. Musculoskeletal: Normal range of motion, Normal strength. Integumentary: Warm, Dry, [place]. Neurologic: Alert, Oriented. Psychiatric: Cooperative. Review / Management No qualifying data available Cardiac Markers (Current Encounter/Past 24 Hours) No Cardiac Marker Results Found (Past 24 Hours) Blood Gases (Current Encounter/Past 24 Hours) No Blood Gas Results Found (Past 24 Hours) Radiology Results (Last 48 hours) [id number] -- 05/16/2019 08:43 US Carotid Duplex BILAT (05/16/2019 09:49) Result: CAROTID DUPLEX DOPPLER ULTRASOUNDHISTORY: Carotid stenosis . TECHNIQUE: Real-time imaging was performed of the extracranial carotidarteries in transverse and longitudinal planes, with color duplexevaluation of blood flow velocity. Spectral analysis was performed. Thecervicovertebral arteries were also examined.Right carotid system:CCA: 154 cm/Angela: 101 cm/sECA: 114 cm/sVertebral artery: AntegradeICA/CCA ratio: 0.7Minimal plaque is identified at the bifurcation .Left carotid system:CCA: 135 cm/Angela: 139 cm/sECA: 113 cm/sVertebral artery: AntegradeICA/CCA ratio: 1.0 Mild plaque is identified at the bifurcation . Within the internalcarotid artery there is posterior wall intimal thickening.IMPRESSION: Based on validated velocity criteria: 0-29 % RIGHT ICA stenosis.50-69 % LEFT ICA stenosis. Favored to be closer to the 50% range.Images reviewed, interpreted, and dictated by Dr. Cole Martinez.Transcribed by Marcello Diego (R).I have personally viewed, interpreted and dictated the examination. Ihave read and agree with the above final transcribed report. Results review: No qualifying data available. Impression and Plan IMPRESSION: * Abnormal Lexiscan MPI at [facility] Low risk but fixed inferior defect with EF 56% and TID * Chest pain, dyspnea and edema * DMII * Ongoing tobacco abuse * Morbid Obesity PLAN; Cardiac Catheterization with possible catheter based intervention. Risks, benefits, and alternative therapy discussed. She has given verbal and written consent. documented in this encounter Plan of Treatment Upcoming Encounters Date Type Department Care Team (Late st Contact Info) Description 12/26/2025 10:00 AM EDT Office Visit [facility] Neurology - [facility] [address] [phone] Lino Solis MD 10[address] [facility] [address] [place] [address] documented as of this encounter Visit Diagnoses Not on filedocumented in this encounter Care Teams Assembler Gold Frame Relationship Specialty Start Date End Date Ronaldo Kong MD [address] [place] [address] PCP - General General Internal Medicine 12/24/2210/19 Tanna Finch APRN [address] [place] [phone] PCP - General Nurse Practitioner 11/04/24 documented as of this encounter
--- OUTSIDE RECORDS SUMMARY | 2025-09-22 10:01 | XMS_ITS | Encounter Summary ---
Author Organization [facility] Address [address] [place] [address] Care Team Providers Care Key Punch Operator Name Role Phone System, Provider Not In Primary Care Provider Un available Encounter Details Date Type Department Care Team (Latest Contact Info) Description 07/26/2025 Travel Social History Tobacco Use Types Packs/Day [...] or training? Not on file Preferred Language [place] Citizen 03/03/2024 PHQ-2 Answer Date Recorded Retired PHQ-9: [...] No Requirements [facility] [place] [phone] 12/20/2025 1:30 PM EST Office Visit [facility] [place] [phone] Daphney Hall MD [address] [facility] [place] [address] 12/20/2025 1:30 PM EST Clinical Support No Requirements [facility] [place] [phone] documented as of this encounter Visit Diagnoses Not on filedocumented in this encounter Additional Health Concerns Assessment Noted Time PHQ-2 Depression Total Score: 3 07/18/20 24 11:28 AM EDT documented as of this encounter Care Teams Key Punch Operator Relationship Specialty Start Date End Date System, [place] [address] PCP - General 02/14/25 documented as of this encounter
--- OUTSIDE RECORDS SUMMARY | 2025-09-22 10:01 | XMS_ITS | Encounter Summary ---
Author Organization [facility] Address [address] [place] [address] Care Team Providers Care Research Instrumentation Technician Name Role Phone System, Provider Not In Primary Care Provider Un available Encounter Details Date Type Department Care Team (Latest Contact Info) Description 07/24/2025 Travel Social History Tobacco Use Types Packs/Day [...] or training? Not on file Preferred Language Chinese 03/03/2024 PHQ-2 Answer Date Recorded Retired PHQ-9: [...] Description 11/13/2025 11:00 AM EST Office Visit [facility] [address] [facility] [place] [phone] Daphney Hall MD [address] [facility] [place] [address] 11/13/2025 11:00 AM EST Clinical Support No Requirements [facility] [place] [phone] 12/20/2025 1:30 PM EST Office Visit [facility] [place] [phone] Daphney Hall MD [address] [facility] [place] [address] 12/20/2025 1:30 PM EST Clinical Support No Requirements [facility] [place] [phone] documented as of this encounter Visit Diagnoses Not on filedocumented in this encounter Additional Health Concerns Assessment Noted Time PHQ-2 Depression Total Score: 3 07/18/20 24 11:28 AM EDT documented as of this encounter Care Teams Research Instrumentation Technician Relationship Specialty Start Date End Date System, [place] [address] PCP - General 02/14/25 documented as of this encounter
--- OUTSIDE RECORDS SUMMARY | 2025-09-22 10:01 | XMS_ITS | Encounter Summary ---
Author Organization [employer] ([place], [place], [place], [place], [place]) Address [address] [place] [address] Care Team Providers Care Yacht Rigger Name Role Phone Ronaldo Kong MD Primary Care Provider [phone] Tanna Finch APRN Primary Care Provid er Encounter Details Date Type Department Care Team (Late st Contact Info) Description 06/06/2020 Transcribed Document [facility] [place] [facility] [place] [address] ProviderJorje MD [address] [place] [address] Social History Tobacco Use Types Packs/Day [...] Conversion Note - Jorje ProviderMD - 06/06/2020 4:58 PM CDT Nutrition Assessment Entered On: 06/07/2020 12:22 EDT Performed On: 06/07/2020 12:22 EDT by Anum Khan Dietitian Nutrition Assessment Current Nutrition Regimen Comment : Anum Khan Dietitian - 06/07/2020 14:05 EDT Nutrition Assessment Reason : Automatic referral Anum Khan Dietitian - 06/07/2020 12:22 EDT Nutrition Recommendations Dietitian Recommendations : 06/07: Rec'd routine cardiology consult + consult for BMI>40 (BMI=47.6). Pt is a 50 yo F admitted for SOA w/ fluid retention. Noted 1-2+ edema. Pt on bumex drip + lasix. Noted K+ 3 - being replaced. No skin breakdown. 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 On cardiac diet w/ 90% x 1 meal recorded. Pt reports okay appetite - feeling sick following meals x 2 weeks. Reports she is still eating normally though. Unsure of what her UBW - reports wt gain d/t fluid retention. No nutrition dx at this time - RD to rescreen in 3-4 days to monitior intakes and provide diet edu prn. Nutrition Care Level : No nutritional risk Anum Khan, Dietmerced - 06/07/2020 14:05 EDT Electronically signed by [facility] Conversion Engineering Design Supervisor Cerner at 02/03/2023 4:41 PM CDT documented in this encounter Plan of Treatment Upcoming Encounters Date Type Department Care Team (Late st Contact Info) Description 12/26/2025 10:00 AM EDT Office Visit [facility] Neurology - [address] [facility] [address] [place] [phone] Lino Solis MD [address] [place] [address] [address] [place], [place] [id number] documented as of this encounter Visit Diagnoses Not on filedocumented in this encounter Care Teams Yacht Rigger Relationship Specialty Start Date End Date Ronaldo Kong MD [address] [place] [address] [place] [address] PCP - General General Internal Medicine 12/24/2210/19 Tanna Finch APRN [address] [place] [phone] PCP - General Nurse Practitioner 11/04/24 documented as of this encounter
--- OUTSIDE RECORDS SUMMARY | 2025-09-22 10:01 | XMS_ITS | Encounter Summary ---
Author Organization [employer] ([place], [place], [place], [place], [place]) Address [address] [place] [address] Care Team Providers Care Animal Shelter Supervisor Name Role Phone Ronaldo Kong MD Primary Care Provider [phone] Tanna Finch APRN Primary Care Provid er Encounter Details Date Type Department Care Team (Late st Contact Info) Description 06/06/2020 Transcribed Document [facility] [place] [facility] [place] [address] ProviderJorje MD [address] [place] [address] Social History Tobacco Use Types Packs/Day [...] Jorje ProviderMD - 06/06/2020 5:39 PM CDT Education-(VTE) / (DVT) Entered On: 06/06/2020 17:56 EDT Performed On: 06/06/2020 17:39 EDT by Emperatriz Bell RN-Resource Teaching/Learning Assessment Barriers To Learning : None evident Highest Level of Education : University degree(s) Learning Style Preferences Patient : Verbal explanation Emperatriz Bell RN-Resource - 06/06/2020 17:56 EDT Education Topics: VTE/DVT Education Topics: VTE/DVT Activity Limitations/Expectations : Verbalizes understanding Antiembolic hose : Verbalizes understanding VTE/DVT prophylaxis : Verbalizes understanding Foot Pumps : Verbalizes understanding Medications : Verbalizes understanding Sequential Compression Device : Verbalizes understanding Smoking Cessation : Verbalizes understanding Risk for developing a VTE : Verbalizes understanding Signs and symptoms of a VTE : Verbalizes understanding Treatment/prophylaxis for VTE : Verbalizes understanding Encourage early ambulation : Verbalizes understanding VTE/DVT, Other : Verbalizes understanding Emperatriz Bell RN-Resource - 06/06/2020 17:56 EDT Electronically signed by [facility] Conversion Customs Brokerage Manager Cerner at 02/03/2023 4:59 PM CDT documented in this encounter Plan of Treatment Upcoming Encounters Date Type Department Care Team (Late st Contact Info) Description 12/26/2025 10:00 AM EDT [facility] [address] [facility] [address] [place] [address] Lino Solis MD [address] [place] [address] [address] [place] [address] documented as of this encounter Visit Diagnoses Not on filedocumented in this encounter Care Teams Animal Shelter Supervisor Relationship Specialty Start Date End Date Ronaldo Kong MD [address] [place] [address] PCP - General General Internal Medicine 12/24/2210/19 Tanna Finch APRN [address] [place] [phone] PCP - General Nurse Practitioner 11/04/24 documented as of this encounter
--- OUTSIDE RECORDS SUMMARY | 2025-09-22 10:01 | XMS_ITS | Encounter Summary ---
Author Organization [employer] ([place], [place], [place], [place], [place]) Address [address] [place] [address] Care Team Providers Care Tank Truck Driver Name Role Phone Ronaldo Kong MD Primary Care Provider [phone] Tanna Finch APRN Primary Care Provid er Encounter Details Date Type Department Care Team (Late st Contact Info) Description 06/06/2020 Transcribed Document [facility] [place] [address] [place] [address] ProviderJorje MD [address] [place] [address] Social History Tobacco Use Types Packs/Day [...] Conversion Note - Jorje ProviderMD - 06/06/2020 5:46 PM CDT Pain Assessment Entered On: 06/07/2020 16:05 EDT Performed On: 06/07/2020 15:42 EDT by Emperatriz Bell RN-Resource Intervention Information: acetaminophen-oxyCODONE Performed by Emperatriz Bell RN-Resource on 06/07/2020 14:42:00 EDT acetaminophen-oxyCODONE,1Tab Oral,Pain (Severe 7-10) Pain Assessment Pain Assessment : Follow-up assessment Pain Scale Goal : 3 Pain Scale Used : 0-10 Scale Emperatriz Bell RN-Resource - 06/07/2020 16:05 EDT Pain Scale Intensity : 0 Emperatrzi Bell RN-Resource - 06/07/2020 16:05 EDT Image 4 - Images currently included in the form version of this document have not been included in the text rendition version of the form. documented in this encounter Plan of Treatment Upcoming Encounters Date Type Department Care Team (Late st Contact Info) Description 12/26/2025 10:00 AM EDT Office Visit [facility] Neurology - [address] [facility] [address] [place] [address] Lino Solis MD [address] [place] [address] [address] [place], [place] [id number] documented as of this encounter Visit Diagnoses Not on filedocumented in this encounter Care Teams Tank Truck Driver Relationship Specialty Start Date End Date Ronaldo Kong MD [address] [place] [address] [place] [address] PCP - General General Internal Medicine 12/24/2210/19 Tanna Finch APRN [address] [place] [phone] PCP - General Nurse Practitioner 11/04/24 documented as of this encounter
--- OUTSIDE RECORDS SUMMARY | 2025-09-22 10:01 | XMS_ITS | Encounter Summary ---
Author Organization [employer] ([place], [place], [place], [place], [place]) Address [address] [place] [address] Care Team Providers Care Chemical Process Engineer Name Role Phone Ronaldo Kong MD Primary Care Provider [phone] Tanna Finch APRN Primary Care Provid er Encounter Details Date Type Department Care Team (Late st Contact Info) Description 06/06/2020 Transcribed Document [facility] [place] [address] ProviderJorje MD [address] [place] [address] Social History Tobacco Use Types Packs/Day [...] Jorje ProviderMD - 06/06/2020 4:58 PM CDT Education-Smoking Cessation Entered On: 06/06/2020 16:59 EDT Performed On: 06/06/2020 16:58 EDT by Emperatriz Bell RN-Resource Teaching/Learning Assessment Barriers To Learning : None evident Individuals Taught : Patient Highest Level of Education : University degree(s) Baseline Knowledge of Topic : Good Readiness to Learn : Teach back method Learning Style Preferences Patient : Verbal explanation Emperatriz Bell RN-Resource - 06/06/2020 16:59 EDT Education: Smoking/Tobacco Cessation Topics Smoking Cess Educatin Grid Advice Given to Stop Smoking : Verbalizes understanding Risks/Benefits of Smoking : Verbalizes understanding Second Hand Smoke : Verbalizes understanding Ed-Smoking Cessation Programs : Verbalizes understanding Ed-Smoking Cessation, Other : Verbalizes understanding Emperatriz Bell RN-Resource - 06/06/2020 16:59 EDT Tobacco Cessation Counseling Grid Recognizing Danger Situations : Verbalizes understanding Negative Moods and/or Stress : Verbalizes understanding Being Around Other Tobacco Users : Verbalizes understanding Drinking Alcohol : Verbalizes understanding Experiencing Urges : Verbalizes understanding Tobacco Cues and Availability : Verbalizes understanding Developing Coping Skills : Verbalizes understanding Anticipate/Avoid Temptation/Triggers : Verbalizes understanding Strategies to Reduce Negative Moods : Verbalizes understanding Reduce Stress/Exposure to Tobacco Cues : Verbalizes understanding Activities to [place] With Smoking Urges : Verbalizes understanding Basic Information About Quitting : Verbalizes understanding Tobacco Use Increases Chance of Relapse : Verbalizes understanding Withdrawal Symptoms Peak After Quitting : Verbalizes understanding Addictive Nature of Tobacco : Verbalizes understanding Emperatriz eBll RN-Resource - 06/06/2020 16:59 EDT documented in this encounter Plan of Treatment Upcoming Encounters Date Type Department Care Team (Late st Contact Info) Description 12/26/2025 10:00 AM EDT Office Visit [facility] Neurology - [address] [place] [phone] Lino Solis MD [address] [place] [address] [place] [address] documented as of this encounter Visit Diagnoses Not on filedocumented in this encounter Care Teams Chemical Process Engineer Relationship Specialty Start Date End Date Ronaldo Kong MD [address] [place] [address] [place] [address] PCP - General General Internal Medicine 12/24/2210/19 Tanna Finch APRN [address] [place] [phone] PCP - General Nurse Practitioner 11/04/24 documented as of this encounter
--- OUTSIDE RECORDS SUMMARY | 2025-09-22 10:02 | XMS_ITS | Encounter Summary ---
Author Organization [employer] ([place], [place], [place], [place], [place]) Address [address] [place] [address] Care Team Providers Care Probation Agent Name Role Phone Ronaldo Kong MD Primary Care Provider [phone] Tanna Finch APRN Primary Care Provid er Encounter Details Date Type Department Care Team (Late st Contact Info) Description 06/06/2020 Transcribed Document [facility] Family Medicine [address] [place] [address] ProviderJorje MD [address] [place] [address] Social History Tobacco Use Types Packs/Day [...] Conversion Note - Jorje ProviderMD - 06/06/2020 5:00 PM CDT Chart Check - Review Order Profile Entered On: 06/06/2020 17:56 EDT Performed On: 06/06/2020 17:00 EDT by Emperatriz Bell RN-Resource Chart Check Powerplans Initiated/Discontinued as Appropriate : Yes All Active Orders Reviewed : Yes Emperatriz Bell RN-Radhika - 06/06/2020 17:55 EDT Electronically signed by Tanika Ruvalcaba Conversion Customer Service Attendant Cerner at 02/03/2023 4:45 PM CDT documented in this encounter Plan of Treatment Upcoming Encounters Date Type Department Care Team (Late st Contact Info) Description 12/26/2025 10:00 AM EDT Office Visit [facility] Neurology - [address] [facility] [address] [place] [address] Lino Solis MD [address] [place] [address] [address] [place] [address] documented as of this encounter Visit Diagnoses Not on filedocumented in this encounter Care Teams Probation Agent Relationship Specialty Start Date End Date Ronaldo Kong MD [address] [place] [address] PCP - General General Internal Medicine 12/24/2210/19 Tanna Finch APRN [address] [place] [phone] PCP - General Nurse Practitioner 11/04/24 documented as of this encounter
--- OUTSIDE RECORDS SUMMARY | 2025-09-22 10:02 | XMS_ITS | Encounter Summary ---
Author Organization [employer] ([place], [place], [place], [place], [place]) Address [address] [place] [address] Care Team Providers Care Enterprise Cloud Architect Name Role Phone Ronaldo Kong MD Primary Care Provider [phone] Tanna Finch APRN Primary Care Provid er Encounter Details Date Type Department Care Team (Late st Contact Info) Description 06/08/2020 Transcribed Document [facility] [place] Medicine [address] [place] [address] ProviderJorje MD [address] [place] [address] Social History Tobacco Use Types Packs/Day [...] Cerner Conversion Note - Jorje ProviderMD - 06/08/2020 2:00 AM CDT Site Controller Details Entered On: 06/08/2020 5:45 EDT Performed On: 06/08/2020 2:00 EDT by Alisson Kahn Rn Order Details Transport Mode Order Detail : Wheelchair Isolation Precautions Order Detail : Standard Precautions Order Detail : 0 IV Order Detail : 1 Oxygen Order Detail : 0 Nurse Collect Order Detail : 0 Lift/Transfer : Minimal Central Line Order Detail : No Room Service : Appropriate Arterial Line : No Alisson Kahn, Rn - 06/08/2020 5:45 EDT documented in this encounter Plan of Treatment Upcoming Encounters Date Type Department Care Team (Late st Contact Info) Description 12/26/2025 10:00 AM EDT Office Visit [facility] Neurology - [address] [place] [phone] [place] [address] [place] [address] [address] [place], [place] [phone] documented as of this encounter Visit Diagnoses Not on filedocumented in this encounter Care Teams Enterprise Cloud Architect Relationship Specialty Start Date End Date Ronaldo Kong MD [address] [place] [address] PCP - General General Internal Medicine 12/24/2210/19 Tanna Finch APRN [address] [place] [phone] PCP - General Nurse Practitioner 11/04/24 documented as of this encounter
--- OUTSIDE RECORDS SUMMARY | 2025-09-22 10:02 | XMS_ITS | Encounter Summary ---
Author Organization [employer] ([place], [place], [place], [place], [place]) Address [address] [place] [address] Care Team Providers Care Package Wrapper Name Role Phone Ronaldo Kong MD Primary Care Provider [phone] Tanna Finch APRN Primary Care Provid er Encounter Details Date Type Department Care Team (Late st Contact Info) Description 06/08/2020 Transcribed Document [facility] Family Medicine [address] [place] [address] ProviderJorje MD [address] [place] [address] Social History Tobacco Use Types Packs/Day [...] Conversion Note - Jorje ProviderMD - 06/08/2020 2:52 PM CDT Patient Education Materials Follows: Heart Failure, Diagnosis Heart failure means that your heart is not able to pump blood in the right way. This makes it hard for your body to work well. Heart failure is usually a long-term (chronic) condition. You must take good care of yourself and follow your treatment plan from your doctor. What are the causes? This condition may be caused by: ??? High blood pressure. ??? Build up of cholesterol and fat in the arteries. ??? Heart attack. This injures the heart muscle. ??? Heart valves that do not open and close properly. ??? Damage of the heart muscle. This is also called cardiomyopathy. ??? Lung disease. ??? Abnormal heart rhythms. What increases the risk? The risk of heart failure goes up as a person ages. This condition is also more likely to develop in people who: ??? Are overweight. ??? Are male. ??? Smoke or chew tobacco. ??? Abuse alcohol or illegal drugs. ??? Have taken medicines that can damage the heart. ??? Have diabetes. ??? Have abnormal heart rhythms. ??? Have thyroid problems. ??? Have low blood counts (anemia). What are the signs or symptoms? Symptoms of this condition include: ??? Shortness of breath. ??? Coughing. ??? Swelling of the feet, ankles, legs, or belly. ??? Losing weight for no reason. ??? Trouble breathing. ??? Waking from sleep because of the need to sit up and get more air. ??? Rapid heartbeat. ??? Being very tired. ??? Feeling dizzy, or feeling like you may pass out (faint). ??? Having no desire to eat. ??? Feeling like you may vomit (nauseous). ??? Peeing (urinating) more at night. ??? Feeling confused. How is this treated? This condition may be treated with: ??? Medicines. These can be given to treat blood pressure and to make the heart muscles stronger. ??? Changes in your daily life. These may include eating a healthy diet, staying at a healthy body weight, quitting tobacco and illegal drug use, or doing exercises. ??? Surgery. Surgery can be done to open blocked valves, or to put devices in the heart, such as pacemakers. ??? A donor heart (heart transplant). You will receive a healthy heart from a donor. Follow these instructions at home: ??? Treat other conditions as told by your doctor. These may include high blood pressure, diabetes, thyroid disease, or abnormal heart rhythms. ??? Learn as much as you can about heart failure. ??? Get support as you need it. ??? Keep all follow-up visits as told by your doctor. This is important. Summary ??? Heart failure means that your heart is not able to pump blood in the right way. ??? This condition is caused by high blood pressure, heart attack, or damage of the heart muscle. ??? Symptoms of this condition include shortness of breath and swelling of the feet, ankles, legs, or belly. You may also feel very tired or feel like you may vomit. ??? You may be treated with medicines, surgery, or changes in your daily life. ??? Treat other health conditions as told by your doctor. This information is not intended to replace advice given to you by your health care provider. Make sure you discuss any questions you have with your health care provider. Document Released: 07/14/2009 Document Revised: 12/23/2019 Document Reviewed: 12/23/[address] Patient Education ? 2020 [employer]. Heart Failure Heart failure means your heart has trouble pumping blood. This makes it hard for your body to work well. Heart failure is usually a long-term (chronic) condition. You must take good care of yourself and follow your treatment plan from your doctor. Follow these instructions at home: Medicines ??? Take qbgv-sxh-[id number] and prescription medicines only as told by your doctor. ? Do not stop taking your medicine unless your doctor told you to do that. ? Do not skip any doses. ? Refill your prescriptions before you run out of medicine. You need your medicines every day. Eating and drinking ??? Eat heart-healthy foods. Talk with a diet and nutrition worker (dietitian) to make an eating plan. ??? Choose foods that: ? Have no trans fat. ? Are low in saturated fat and cholesterol. ??? Choose healthy foods, like: ? Fresh or frozen fruits and vegetables. ? Fish. ? Low-fat (lean) meats. ? Legumes (like beans, peas, and lentils). ? Fat-free or low-fat dairy products. ? Whole-grain foods. ? High-fiber foods. ??? Limit salt (sodium) if told by your doctor. Ask your nutrition worker to recommend heart-healthy seasonings. ??? Cook in healthy ways instead of frying. Healthy ways of cooking include: ? Roasting. ? Grilling. ? Broiling. ? Baking. ? Poaching. ? Steaming. ? Stir-frying. ??? Limit how much fluid you drink, if told by your doctor. Lifestyle ??? Do not smoke or use chewing tobacco. Do not use nicotine gum or patches before talking to your doctor. ??? Limit alcohol intake to no more than 1 drink a day for non- women and 2 drinks a day for men. One drink equals 12 oz of beer, 5 oz of wine, or 1? oz of hard liquor. ? Tell your doctor if you drink alcohol many times a week. ? Talk with your doctor about whether any alcohol is safe for you. ? You should stop drinking alcohol: ? If your heart has been damaged by alcohol. ? You have very bad heart failure. ??? Do not use illegal drugs. ??? Lose weight if told by your doctor. ??? Do moderate physical activity if told by your doctor. Ask your doctor what activities are safe for you if: ? You are of older age (elderly). ? You have very bad heart failure. Keep track of important information ??? Weigh yourself every day. ? Weigh yourself every morning after you pee (urinate) and before breakfast. ? Wear the same amount of clothing each time. ? Write down your daily weight. Give your record to your doctor. ??? Check and write down your blood pressure as told by your doctor. ??? Check your pulse as told by your doctor. Dealing with heat and cold ??? If the weather is very hot: ? Avoid activity that takes a lot of energy. ? Use air conditioning or fans, or find a cooler place. ? Avoid caffeine. ? Avoid alcohol. ? Wear clothing that is loose-fitting, lightweight, and light-colored. ??? If the weather is very cold: ? Avoid activity that takes a lot of energy. ? Layer your clothes. ? Wear mittens or gloves, a hat, and a scarf when you go outside. ? Avoid alcohol. General instructions ??? Manage other conditions that you have as told by your doctor. ??? Learn to manage stress. If you need help, ask your doctor. ??? Plan rest periods for when you get tired. ??? Get education and support as needed. ??? Get rehab (rehabilitation) to help you stay independent and to help with everyday tasks. ??? Stay up to date with shots (immunizations), especially pneumococcal and flu (influenza) shots. ??? Keep all follow-up visits as told by your doctor. This is important. Contact a doctor if: ??? You gain weight quickly. ??? You are more short of breath than normal. ??? You cannot do your normal activities. ??? You tire easily. ??? You cough more than normal, especially with activity. ??? You have any or more puffiness (swelling) in areas such as your hands, feet, ankles, or belly (abdomen). ??? You cannot sleep because it is hard to breathe. ??? You feel like your heart is beating fast (palpitations). ??? You get dizzy or light-headed when you stand up. Get help right away if: ??? You have trouble breathing. ??? You or someone else notices a change in your awareness. This could be trouble staying awake or trouble concentrating. ??? You have chest pain or discomfort. ??? You pass out (faint). Summary ??? Heart failure means your heart has trouble pumping blood. ??? Make sure you refill your prescriptions before you run out of medicine. You need your medicines every day. ??? Keep records of your weight and blood pressure to give to your doctor. ??? Contact a doctor if you gain weight quickly. This information is not intended to replace advice given to you by your health care provider. Make sure you discuss any questions you have with your health care provider. Document Released: 07/14/2009 Document Revised: 06/29/2019 Document Reviewed: 10/27/[address] Interactive Patient Education ? [address] [employer] [address] [employer] Cardiovascular Heart Failure, Self Care Heart failure is a serious condition. This document explains the things you need to do to take care of yourself after a heart failure diagnosis. You may be asked to change your diet, take certain medicines, and make other lifestyle changes in order to stay as healthy as possible. Your health care provider may also give you more specific instructions. If you have problems or questions, contact your health care provider. What are the risks? Having heart failure puts you at higher risk for certain problems. These problems can get worse if you do not take good care of yourself. Problems may include: ??? Blood clotting problems. This may cause a stroke. ??? Damage to the kidneys, liver, or lungs. ??? Abnormal heart rhythms. Supplies needed: ??? Scale for monitoring weight. ??? Blood pressure monitor. ??? Notebook. ??? Medicines. How to care for yourself when you have heart failure Medicines Take ioed-qml-[id number] and prescription medicines only as told by your health care provider. Medicines reduce the workload of your heart, slow the progression of heart failure, and improve symptoms. Take your medicines every day. ??? Do not stop taking your medicine unless your health care provider tells you to do so. ??? Do not skip any dose of medicine. ??? Refill your prescriptions before you run out of medicine. Eating and drinking ??? Eat heart-healthy foods. Talk with a dietitian to make an eating plan that is right for you. ? Choose foods that contain no trans fat and are low in saturated fat and cholesterol. Healthy choices include fresh or frozen fruits and vegetables, fish, lean meats, legumes, fat-free or low-fat dairy products, and whole-grain or high-fiber foods. ? Limit salt (sodium) if told by your health care provider. Sodium restriction may reduce symptoms of heart failure. Ask a dietitian to recommend heart-healthy seasonings. ? Use healthy cooking methods instead of frying. Healthy methods include roasting, grilling, broiling, baking, poaching, steaming, and stir-frying. ??? Limit your fluid intake, if directed by your health care provider. Fluid restriction may reduce symptoms of heart failure. Alcohol use ??? Do not drink alcohol if: ? Your health care provider tells you not to drink. ? Your heart was damaged by alcohol, or you have severe heart failure. ? You are , may be , or are planning to become . ??? If you drink alcohol: ? Limit how much you use to: ? 0?1 drink a day for women. ? 0?2 drinks a day for men. ? Be aware of how much alcohol is in your drink. In the [place] one drink equals one 12 oz bottle of beer (355 mL), one 5 oz glass of wine (148 mL), or one 1? oz glass of hard liquor (44 mL). Lifestyle ??? Do not use any products that contain nicotine or tobacco, such as cigarettes, e-cigarettes, and chewing tobacco. If you need help quitting, ask your health care provider. ? Do not use nicotine gum or patches before talking to your health care provider. ??? Do not use illegal drugs. ??? Work with your health care provider to safely reach the right body weight. ??? Do physical activity if told by your health care provider. Talk to your health care provider before you begin an exercise if: ? You are an older adult. ? You have severe heart failure. ??? Learn to manage stress. If you need help to do this, ask your health care provider. ??? Participate in or seek rehabilitation as needed to keep or improve your independence and quality of life. ??? Plan rest periods when you get tired. Monitoring important information ??? Weigh yourself every day. This will help you to notice if too much fluid is building up in your body. ? Weigh yourself every morning after you urinate and before you eat breakfast. ? Wear the same amount of clothing each time you weigh yourself. ? Record your daily weight. Provide your health care provider with your weight record. ??? Monitor and record your pulse and blood pressure as told by your health care provider. Dealing with extreme temperatures ??? If the weather is extremely hot: ? Avoid vigorous physical activity. ? Use air conditioning or fans, or find a cooler location. ? Avoid caffeine and alcohol. ? Wear loose-fitting, lightweight, and light-colored clothing. ??? If the weather is extremely cold: ? Avoid vigorous activity. ? Layer your clothes. ? Wear mittens or gloves, a hat, and a scarf when you go outside. ? Avoid alcohol. Follow these instructions at home: ??? Stay up to date with vaccines. Pneumococcal and flu (influenza) vaccines are especially important in preventing infections of the airways. ??? Keep all follow-up visits as told by your health care provider. This is important. Contact a health care provider if you: ??? Have a rapid weight gain. ??? Have increasing shortness of breath. ??? Are unable to participate in your usual physical activities. ??? Get tired easily. ??? Cough more than normal, especially with physical activity. ??? Lose your appetite or feel nauseous. ??? Have any swelling or more swelling in areas such as your hands, feet, ankles, or abdomen. ??? Are unable to sleep because it is hard to breathe. ??? Feel like your heart is beating quickly (palpitations). ??? Become dizzy or light-headed when you stand up. Get help right away if you: ??? Have trouble breathing. ??? Notice or your family notices a change in your awareness, such as having trouble staying awake or concentrating. ??? Have pain or discomfort in your chest. ??? Have an episode of fainting (syncope). These symptoms may represent a serious problem that is an emergency. Do not wait to see if the symptoms will go away. Get medical help right away. Call your local emergency services (911 in the [place] Do not drive yourself to the hospital. Summary ??? Heart failure is a serious condition. To care for yourself, you may be asked to change your diet, take certain medicines, and make other lifestyle changes. ??? Take your medicines every day. Do not stop taking them unless your health care provider tells you to do so. ??? Eat heart-healthy foods, such as fresh or frozen fruits and vegetables, fish, lean meats, legumes, fat-free or low-fat dairy products, and whole-grain or high-fiber foods. ??? Ask your health care provider if you have any alcohol restrictions. You may have to stop drinking alcohol if you have severe heart failure. ??? Contact your health care provider if you notice problems, such as rapid weight gain or a fast heartbeat. Get help right away if you faint, or have chest pain or trouble breathing. This information is not intended to replace advice given to you by your health care provider. Make sure you discuss any questions you have with your health care provider. Document Released: 01/18/2020 Document Revised: 01/17/2020 Document Reviewed: 01/18/2020 [employer] Patient Education ? [address] [employer] documented in this encounter Plan of Treatment Upcoming Encounters Date Type Department Care Team (Late st Contact Info) Description 12/26/2025 10:00 AM EDT Office Visit [facility] Neurology - [address] [employer] [address] [place] [address] Lino Solis MD [facility] [address] [place] [address] documented as of this encounter Visit Diagnoses Not on filedocumented in this encounter Care Teams Package Wrapper Relationship Specialty Start Date End Date Ronaldo Kong MD [address] [place] [address] [place] [address] PCP - General General Internal Medicine 12/24/2210/19 Tanna Finch APRN [address] [place] [phone] PCP - General Nurse Practitioner 11/04/24 documented as of this encounter
--- OUTSIDE RECORDS SUMMARY | 2025-09-22 10:02 | XMS_ITS | Encounter Summary ---
Author Organization [employer] ([place], [place], [place], [place], [place]) Address [address] [place] [address] Care Team Providers Care Law Writer Name Role Phone Ronaldo Kong MD Primary Care Provider [phone] Tanna Finch APRN Primary Care Provid er Encounter Details Date Type Department Care Team (Late st Contact Info) Description 06/08/2020 Transcribed Document [facility] [place] [address] [place] [address] ProviderJorje MD [address] [place] [address] Social History Tobacco Use Types Packs/Day [...] Jorje ProviderMD - 06/08/2020 2:52 PM CDT Stroke/Warfarin Instructions Entered On: 06/08/2020 14:52 EDT Performed On: 06/08/2020 14:52 EDT by Emperatriz Bell RN-Radhika Stroke/Warfarin Instructions Stroke/TIA Discharge Ins : N/A Warfarin Discharge Ins : N/A Emperatriz Bell RN-Resource - 06/08/2020 14:52 EDT documented in this encounter Plan of Treatment Upcoming Encounters Date Type Department Care Team (Late st Contact Info) Description 12/26/2025 10:00 AM EDT Office Visit [facility] Neurology - [address] [facility] [address] [place] [address] Lino Solis MD [address] [place] [address] [address] [place] [address] documented as of this encounter Visit Diagnoses Not on filedocumented in this encounter Care Teams Law Writer Relationship Specialty Start Date End Date Ronaldo Kong MD [address] [place] [address] PCP - General General Internal Medicine 12/24/2210/19 Tanna Finch APRN [address] [place] [phone] PCP - General Nurse Practitioner 11/04/24 documented as of this encounter
--- OUTSIDE RECORDS SUMMARY | 2025-09-22 10:02 | XMS_ITS | Encounter Summary ---
Author Organization [employer] ([place], [place], [place], [place], [place]) Address [address] [place] [address] Care Team Providers Care Geographic Information System Analyst Name Role Phone Tanna Finch APRN Primary Care Provid er Encounter Details Date Type Department Care Team (Latest Contact Info) Description 08/21/2025 Travel Social History Tobacco Use Types Packs/Day [...] Date Joseph rded Speak language other than Danish at home Not on file 11/06/2023 Want [...] Description 12/26/2025 10:00 AM EDT Office Visit [facility] Neurology - [facility] [address] [place] [address] Lino Solis MD [address] [place] [address] documented as of this encounter Visit Diagnoses Not on filedocumented in this encounter Care Teams Geographic Information System Analyst Relationship Specialty Start Date End Date Tanna Finch, INDUSTRIAL ECONOMICS PROFESSOR [address] [place] [address] PCP - General Nurse Practitioner 11/04/24 documented as of this encounter
--- OUTSIDE RECORDS SUMMARY | 2025-09-22 10:02 | XMS_ITS | Encounter Summary ---
Author Organization [employer] ([place], [place], [place], [place], [place]) Address [address] [place] [address] Care Team Providers Care Assembler Movement Name Role Phone Ronaldo Kong MD Primary Care Provider [phone] Tanna Finch APRN Primary Care Provid er Encounter Details Date Type Department Care Team (Late st Contact Info) Description 06/06/2020 Transcribed Document [facility] [place] [address] ProviderJorje MD [address] [place] [address] Social History Tobacco Use Types Packs/Day [...] Conversion Note - Jorje ProviderMD - 06/06/2020 4:23 PM CDT Admission History, Adult Entered On: 06/06/2020 16:58 EDT Performed On: 06/06/2020 16:23 EDT by Emperatriz Bell RN-Radhika Advance Directive Patient has Advance Directive *Q : No, patient refuses Advance Directive information Emperatriz Bell RN-Radhika - 06/06/2020 16:52 EDT Anesthesia/Transfusion History Family History of Anesthesia Reaction : No prior transfusion(s) Transfusion History : Prior anesthesia without reaction Family History of Anesthesia Reaction : None Emperatriz Bell RN-Resource - 06/06/2020 16:52 EDT Functional Assessment Living Situation : Home Current Home Treatments : BiPAP Emperatriz Bell RN-Resource - 06/06/2020 16:52 EDT General Info Contact Password : Sukhdev Panchal Family/Rep/Phys Notified of Admit : No Emergency Contact #1 : Mary Rosario Emergency Contact #1 : Home [phone] Emergency Contact #1 Relationship : Mother Emergency Contact #2 : None Emergency Contact #2 Phone Number : None Emergency Contact #2 Relationship : None Primary Language : Egyptian Communication Barrier : None Primary Counselor Needed : No Emperatriz Bell RN-Resource - 06/06/2020 16:52 EDT Fall Risk Scales ABCs Fall Injury Risk Identification : None WHITING Hx Falls Immediate/Within 3 Months : No [place] Secondary Diagnosis : Yes WHITING Use of Ambulatory Aid : Bed rest/Nurse assist WHITING IV Therapy or IV Access : Yes Chantelle Gait/Transferring : Normal, bedrest, immobile [place] Mental Status : Oriented to own ability [place] Fall Risk Score : 35 WHITING Fall Scale Risk Level : 25-45 Medium Risk [place] Fall Interventions : Adequate lighting, Assistive devices within reach, Bed in low position, Call device within reach, Hourly comfort/safety rounds, Non-slip footwear, Personal items within reach, Reinforced to call for assistance before getting out of bed, Room free of clutter/spills, Upper side-rails up, Wheels locked, Wires/Cords secured Emperatriz Bell RN-Resource - 06/06/2020 16:52 EDT Health Histories Smoking Status : 10 or more cigarettes (1/2 pack or more)/day in last 30 days Smokeless Tobacco Status : Never Desires Tobacco Cessation Medication : No Reason for No Tobacco Cessation Medication : Refuses FDA approved medications Emperatriz Bell RN-Resource - 06/06/2020 16:52 EDT Social History (As Of: 06/06/2020 16:58:41 EDT) Tobacco: Smoking Status Current every day [...] (Last Updated: 11/30/2017 08:18:23 EST by SERENITY WEBB Rn-Resource) 10 or more cigarettes (1/2 pack or [...] 10/20/2017 12:24:55 EST by PAO ONEAL RN) Height and Weight, Clinical Dosing Height Source : Stated Height Entry Format : [place] Height, Feet : 5 ft(Converted to: 152 cm, 60 Inch) Height, Inches : 7 Inch(Converted to: 0 ft 7 Inch, 17.78 cm) Clinical Height : 170.18 cm Weight Source : Bed scale Weight Entry Format : [place] Clinical Dosing Weight : 137.73 kg Weight, Pounds : 303 lb Body Surface Area (BSA) : 2.41 m2 Body Mass Index : 47.6 kg/m2 (>HHI) [place] Body Weight : 61 kg Emperatriz Bell RN-Resource - 06/06/2020 16:52 EDT Infectious Disease History Has the patient ever been tested for COVID-19? : Yes, Patient stated results Negative Where was the COVID-19 Testing completed? : [facility] Date of COVID-19 test known? : Yes Date of COVID-19 Test : 05/08/2020 EDT Does patient have symptoms of COVID-19? : No COVID19 Screening : No Experiencing Infectious Disease Symptoms : No symptoms Physical contact outside [place] in the last 30 days : No Infectious Disease History : Chicken pox/Shingles, Mononucleosis Tuberculosis Symptoms : None Emperatriz Bell RN-Resource - 06/06/2020 16:52 EDT Influenza Vaccine Asmt, Adult Previous Vaccines from Immunization Schedule : No qualifying data available. Influenza Immunization, Current Season : Yes Emperatriz Bell RN-Resource - 06/06/2020 16:52 EDT Pneumococcal Vaccine Previous Vaccines from Immunization Schedule : No qualifying data available. Pneumonia Immunization Received : No Pneumococcal Risk Assessment < Age 65 : Cigarette smoker Pneumococcal Vaccine Contraindications : No contraindications to pneumococcal vaccine Transplant Workup/Recent Transplant : No Order for Pneumococcal Vaccine : Declined Vaccination Emperatriz Bell RN-Resource - 06/06/2020 16:52 EDT Nutrition History Eating Poorly Due to Decreased Appetite : No Unplanned Weight Loss in Past 3-6 Months : No Malnutrition Screening Tool Total(mal) : 0 Malnutrition Screening Tool Risk Level : Patient not at risk Emperatriz Bell RN-Resource - 06/06/2020 16:52 EDT [place] Suicide Severity Rating Scale (C-SSRS) CSSRS Past Month Wish to be : No CSSRS Past Month Suicidal Thoughts : No CSSRS Lifetime Suicide Behavior : No Suicide Severity Rating Score : 0 Suicide Severity Rating : No Additional Care Required at this time Emperatriz Bell RN-Resource - 06/06/2020 16:52 EDT Psychosocial History Currently in Unsafe Situation : No Emperatriz Bell RN-Resource - 06/06/2020 16:52 EDT Sleep Apnea Risk Assmt BiPAP/CPAP Ordered for Home Use : Yes Hx of Obstructive Sleep Apnea Diagnosis : Yes BiPAP/CPAP Used at Home : Yes Age over 50 Years Old : Yes Gender Male : No Emperatriz Bell RN-Resource - 06/06/2020 16:52 EDT Valuables and Belongings Valuables and Belongings : Clothing, Personal items Clothing : Common streetwear Clothing Disposition : Bedside Personal Items : Cell phone, Purse Personal Items Disposition : Bedside Emperatriz Bell RN-Resource - 06/06/2020 16:52 EDT Electronically signed by Jordon [facility] Conversion Protective Service Specialist Cerner at 02/03/2023 4:45 PM CDT documented in this encounter Plan of Treatment Upcoming Encounters Date Type Department Care Team (Late st Contact Info) Description 12/26/2025 10:00 AM EDT Office Visit [facility] Neurology - [address] [facility] [address] [place] [phone] Lino Solis MD [address] [place] [address] [address] [place] [address] documented as of this encounter Visit Diagnoses Not on filedocumented in this encounter Care Teams Assembler Movement Relationship Specialty Start Date End Date Ronaldo Kong MD [address] [place] [address] PCP - General General Internal Medicine 12/24/2210/19 Tanna Finch APRN [address] [place] [phone] PCP - General Nurse Practitioner 11/04/24 documented as of this encounter
--- OUTSIDE RECORDS SUMMARY | 2025-09-22 10:02 | XMS_ITS | Encounter Summary ---
Author Organization [employer] ([place], [place], [place], [place], [place]) Address [address] [place] [address] Care Team Providers Care Rn Faculty Name Role Phone Ronaldo Kong MD Primary Care Provider [phone] Tanna Finch APRN Primary Care Provid er Encounter Details Date Type Department Care Team (Late st Contact Info) Description 06/06/2020 Transcribed Document [facility] Family Medicine [facility] [place] [address] ProviderJorje MD [address] [place] [address] Social History Tobacco Use Types Packs/Day [...] ProviderMD - 06/06/2020 5:39 PM CDT Evaluation, Occupational Therapy Entered On: 06/07/2020 11:33 EDT Performed On: 06/07/2020 9:00 EDT by LIGIA MAYER OTR/Vazquez General Information, OT Visit Type, OT : Initial evaluation Patient Orders : Order Date Order Ordering 06/06/2020 17:39 OT Evaluation and Treatment Ordered By: JUAREZ IRWIN MD-CAR Active Diagnoses : No Qualifying Diagnoses Therapy Diagnosis, OT : Malaise and fatigue Onset of Problem, OT : 06/06/2020 EDT Admission Date : 06/06/2020 16:25 Personal Devices : Personal Devices No Devices Recorded Assistive Devices : Assistive Devices No Devices Recorded Precautions in Place : Fall prevention measures LIGIA MAYER OTR/Vazquez - 06/07/2020 11:23 EDT General Status Patient Received Status : Supine in bed Treatment Start Time : 06/07/2020 9:00 EDT Patient Left Status : Up in chair, All needs met and within reach RN/PCT Informed Comment : RN ok'ed to see Treatment End Time : 06/07/2020 9:17 EDT Treatment Time : 17 Minute(s) Actual Treatment Time : 17 Minute(s) LIGIA MAYER OTR/Vazquez - 06/07/2020 11:23 EDT History and Environment, OT Living Situation, Therapy : Home Patient Lives With : Alone Persons Assisting Patient at Home : Alone Professional Skilled Services : Physical Therapy, Other: Outpt PT for recent R shoulder surgery (bone spur removal) Persons Providing Information : Patient Home Equipment, Therapy : Bar, grab, Cane, Commode, Shower Equipment, Walker, Wheelchair Cane : Cane, single point Commode : Commode, bedside Shower Equipment : Shower bench, with back Walker : Walker, front wheel Wheelchair : Wheelchair, standard Home Setup : One story, Other: Handicap accessible apt Stairs : No LIGIA MAYER OTR/Vazquez - 06/07/2020 11:23 EDT Prior LOF Bathing, OT : Independent Prior LOF Bed Mobility : Independent Prior LOF Upper Body Dressing, OT : Independent Prior LOF Lower Body Dressing, OT : Independent Prior LOF Toileting : Independent Prior LOF Transfer : Independent Prior LOF Grooming, OT : Independent Prior LOF for IADLs, OT : Independent LIGIA MAYER OTR/Vazquez - 06/07/2020 11:23 EDT Upper Extremity Upper Extremity Dominance : Right Right UE Active ROM : Impaired Right UE Strength : Impaired Left UE Active ROM : WFL Left UE Strength : WFL Right Hand AROM Comment : WFL Left Hand AROM Comment : WFL Right UE Strength Comment : AROM limited to ~50% in R shoulder due to recent R shoulder surgery for bone spur removal (pt reports she has no restrictions); strength not tested. AROM of R elbow, wrist, hand WFL. Left UE Strength Comment : Grossly 5/5; AROM WFL throughout Hand Literary Agent Test : WFL bilaterally Fine Motor Coordination Impaired : No MAYER, CHERYLE STRONG/Vazquez - 06/07/2020 11:23 EDT Functional Mobility Mobility Grid Supine to Sit : Rehab Modified independence Sit to Stand : Rehab Modified independence Bed to Chair : Supervision/set-up Stand to Sit : Rehab Modified independence MAYERLIGIA OTR/Vazquez 06/07/2020 11:23 EDT Functional MobilityComment : G safety awareness MORENO CHERYLE STRONG/Vazquez Tavares 06/07/2020 11:23 EDT Activity Tolerance, OT Activity Comment : F act. tolerance MAYER, CHERYLE STRONG/Vazquez 06/07/2020 11:23 EDT Neurological/Sensory Light Touch Response : Intact MAYERLIGIA OTR/Vazquez 06/07/2020 11:23 EDT Cognition Assessment, OT Orientation : Oriented x 4 Cognition Assessment, OT : Intact LIGIA MAYER OTR/Vazquez 06/07/2020 11:23 EDT Education OT Occupational Therapy Education Grid Activity of Daily Living Training : Verbalizes understanding Functional Mobility Training : Verbalizes understanding, Returns demonstration Home Safety : Verbalizes understanding Precaution/Contraindication : Verbalizes understanding Role of Occupational Therapy : Verbalizes understanding LIGIA MAYER OTR/Vazquez 06/07/2020 11:23 EDT Teaching/Learning Assessment Barriers To Learning : Acuity of Illness Individuals Taught : Patient Readiness to Learn : Cooperative Baseline Knowledge of Topic : Limited Readiness to Learn : Explanation Learning Style Preferences Patient : None LIGIA MAYER OTR/Vazquez 06/07/2020 11:23 EDT Indication Assessment, OT Occupational Therapy Indicated : No Occupational Therapy Not Indicated : At prior level of function, No skilled services indicated, Other: Pt remains largely I with ADLs LIGIA MAYER OTR/Vazquez 06/07/2020 11:23 EDT Plan of Care, OT OT Tx Plan/Goals Established w Patient : No Reason OT Treatment/Plan Not Established : Eval, 1x tx only OT Frequency Rehab : Discontinue Other OT Treatment Provided This Date : Self care: pt instruction provided re: ADL performance, safety, home safety Eval=8 min Self care=9 min OT Duration Rehab : One day LIGIA MAYER CHERYLE/L - 06/07/2020 11:23 EDT Pain Assessment Pain Scaled Used : 0-10 Pain scale Pain Score Pre-Intervention : 0 LIGIA MAYER CHERYLE/L - 06/07/2020 11:23 EDT Image 1 - Images currently included in the form version of this document have not been included in the text rendition version of the form. [place] OT Charges OT Selfcare/Hm Mgmt Ea 15 Min : 1 OT Eval Low Complexity : 1 LIGIA MAYER CHERYLE/L - 06/07/2020 11:23 EDT Electronically signed by Jordon, [facility] Conversion Show Card Letterer Cerner at 02/03/2023 4:49 PM CDT documented in this encounter Plan of Treatment Upcoming Encounters Date Type Department Care Team (Late st Contact Info) Description 12/26/2025 10:00 AM EDT Office Visit [facility] Neurology - [address] [facility] [address] [place] [address] Lino Solis MD [address] [place] [address] [address] [place] [address] documented as of this encounter Visit Diagnoses Not on filedocumented in this encounter Care Teams Rn Faculty Relationship Specialty Start Date End Date Dilan, Ronaldo Yates MD [address] [place] [address] PCP - General General Internal Medicine 12/24/2210/19 Tanna Fnich APRN [address] [place] [phone] PCP - General Nurse Practitioner 11/04/24 documented as of this encounter
--- OUTSIDE RECORDS SUMMARY | 2025-09-22 10:02 | XMS_ITS | Encounter Summary ---
Author Organization [employer] ([place], [place], [place], [place], [place]) Address [address] [place] [address] Care Team Providers Care Instrumentation Engineer Name Role Phone Ronaldo Kong MD Primary Care Provider [phone] Tanna Finch APRN Primary Care Provid er Encounter Details Date Type Department Care Team (Late st Contact Info) Description 06/08/2020 Transcribed Document [facility] [place] [facility] [place] [address] ProviderJorje MD [address] [place] [address] Social History Tobacco Use Types Packs/Day [...] Conversion Note - Jorje ProviderMD - 06/08/2020 2:25 PM CDT UM Authorization Entered On: 06/08/2020 14:25 EDT Performed On: 06/08/2020 14:25 EDT by WU HARMAN RN Primary Insurance Authorization Authorization and Policy Numbers : Insurance 1 Health Plan: [place] [employer] Policy Number: [id number] Authorization Number: Insurance Primary Name : [place] [employer] [id number] Authorization Status-Primary : Denial - admission Reference Number-Primary : [id number] Authorized Service Begin Date-Primary : 06/06/2020 EDT Authorization Comments-Primary : Called Dr. Royal office-spoke with Irene she stated she would discuss case with Dr. Royal for completing P2P. Informed her I would fax the denial paperwork. Irene stated she would put on Dr. Royal desk for Thursday. Historical Authorization Comments-Primary : Comment 1: [place] [employer] denied per fax for inpt (MARU KHAN, RN-Utilization Review 06/08/2020 11:28) Comment 2: Uploaded clinicals to [place] [employer] via [employer]. (AGUILAR KERR, DANIELA-Utilization Review 06/07/2020 11:54) WU HARMAN RN - 06/08/2020 14:25 EDT Electronically signed by Jordon [facility] Conversion Maintenance Engineer Cerner at 02/03/2023 4:39 PM CDT documented in this encounter Plan of Treatment Upcoming Encounters Date Type Department Care Team (Late st Contact Info) Description 12/26/2025 10:00 AM EDT Office Visit [facility] Neurology - [address] [place] [phone] Lino Solis MD [address] [place] [address] [place] [phone] documented as of this encounter Visit Diagnoses Not on filedocumented in this encounter Care Teams Instrumentation Engineer Relationship Specialty Start Date End Date Ronaldo Kong MD [address] [place] [address] [place] [address] PCP - General General Internal Medicine 12/24/2210/19 Tanna Finch APRN [address] [place] [phone] PCP - General Nurse Practitioner 11/04/24 documented as of this encounter
--- OUTSIDE RECORDS SUMMARY | 2025-09-22 10:02 | XMS_ITS | Encounter Summary ---
Author Organization [employer] ([place], [place], [place], [place], [place]) Address [address] [place] [address] Care Team Providers Care Air Conditioning Supervisor Name Role Phone Ronaldo Kong MD Primary Care Provider [phone] Tanna Finch APRN Primary Care Provid er Encounter Details Date Type Department Care Team (Late st Contact Info) Description 06/08/2020 Transcribed Document [facility] [place] Family Medicine [address] [place] [address] ProviderJorje MD [address] [place] [address] Social History Tobacco Use Types Packs/Day [...] Conversion Note - Jorje ProviderMD - 06/08/2020 4:08 PM CDT Nursing Discharge Summary Entered On: 06/08/2020 16:08 EDT Performed On: 06/08/2020 16:08 EDT by Emperatriz Bell RN-Resource Discharge Documentation Discharge Date/Time : 06/08/2020 16:03 EDT Patient Disposition, General : Discharge Discharge To : Home with ambulatory/outpatient follow-up Mode Of Departure, General Discharge : Private vehicle Accompanied By, Discharge : Mother, Sibling IV Discontinued : Yes Personal Belongings With Patient : Yes Prescriptions Given to Patient : Yes Emperatriz Bell, RN-Resource - 06/08/2020 16:08 EDT documented in this encounter Plan of Treatment Upcoming Encounters Date Type Department Care Team (Late st Contact Info) Description 12/26/2025 10:00 AM EDT Office Visit [facility] Neurology - [address] [facility] [place] [address] [place] [phone] [place] [address] [place] [address] [address] [place] [address] documented as of this encounter Visit Diagnoses Not on filedocumented in this encounter Care Teams Air Conditioning Supervisor Relationship Specialty Start Date End Date Ronaldo Kong MD [address] [place] [address] [place] [address] PCP - General General Internal Medicine 12/24/2210/19 Tanna Finch APRN [address] [place] [phone] PCP - General Nurse Practitioner 11/04/24 documented as of this encounter
--- OUTSIDE RECORDS SUMMARY | 2025-09-22 10:02 | XMS_ITS | Encounter Summary ---
Author Organization [employer] ([place], [place], [place], [place], [place]) Address [address] [place] [address] Care Team Providers Care Biomass Plant Manager Name Role Phone Ronaldo Kong MD Primary Care Provider [phone] Tanna Finch APRN Primary Care Provid er Encounter Details Date Type Department Care Team (Late st Contact Info) Description 05/18/2019 Transcribed Document [facility] Family Medicine [address] [place] [address] ProviderJorje MD [address] [place] [address] Social History Tobacco Use Types Packs/Day [...] Conversion Note - Jorje ProviderMD - 05/18/2019 4:02 PM CDT Nursing Discharge Summary Entered On: 05/18/2019 16:03 EDT Performed On: 05/18/2019 16:02 EDT by RENETTA CATHERINE product safety lead Documentation Discharge Date/Time : 05/18/2019 17:00 EDT Patient Disposition, General : Discharge Discharge To : Home with ambulatory/outpatient follow-up Mode Of Departure, General Discharge : Private vehicle, Wheelchair Accompanied By, Discharge : Sibling IV Discontinued : Yes Personal Belongings With Patient : Yes Prescriptions Given to Patient : No Discharge Instructions Reviewed With, Opportunity For Questions Given : Patient, Sibling Patient Education Completed : Yes Teaching Method : Demonstration, Explanation Teaching Evaluation : Returns demonstration, Verbalizes understanding RENETTA CATHERINE, RN - 05/18/2019 16:02 EDT Electronically signed by [facility], [facility] Conversion Horizontal Boring Mill Operator Cerner at 02/03/2023 4:46 PM CDT documented in this encounter Plan of Treatment Upcoming Encounters Date Type Department Care Team (Late st Contact Info) Description 12/26/2025 10:00 AM EDT Office Visit [facility] [address] [employer] [facility] [address] [place] [phone] Lino Solis MD [address] [place] [address] [address] [place] [address] documented as of this encounter Visit Diagnoses Not on filedocumented in this encounter Care Teams Biomass Plant Manager Relationship Specialty Start Date End Date Ronaldo Kong MD [address] [place] [address] PCP - General General Internal Medicine 12/24/2210/19 Tanna Finch APRN [address] [place] [phone] PCP - General Nurse Practitioner 11/04/24 documented as of this encounter
--- OUTSIDE RECORDS SUMMARY | 2025-09-22 10:02 | XMS_ITS | Encounter Summary ---
Author Organization [employer] ([place], [place], [place], [place], [place]) Address [address] [place] [address] Care Team Providers Care Sky Diver Name Role Phone Ronaldo Kong MD Primary Care Provider [phone] Tanna Finch APRN Primary Care Provid er Encounter Details Date Type Department Care Team (Late Contact Info) Description 05/06/2019 Transcribed Document [facility] [place] Family Medicine [address] [place] [address] ProviderJorje MD [address] [place] [address] Social History Tobacco Use Types Packs/Day [...] Cerner Conversion Note - Historical ProviderMD - 05/06/2019 2:20 PM CDT CR Chest 1 Vw Portable Ordered: 05/06/2019 Modified Reason for Exam: chest pain 05/06/2019 13:38 05/06/2019 14:20 (DARRYL MCCRAY) No further action required documented in this encounter Plan of Treatment Upcoming Encounters Date Type Department Care Team (Late Contact Info) Description 12/26/2025 10:00 AM EDT Office Visit [facility] Neurology - [address] [place] [phone] Lino Solis MD [address] [facility] [address] [place] [address] documented as of this encounter Visit Diagnoses Not on filedocumented in this encounter Care Teams Sky Diver Relationship Specialty Start Date End Date Ronaldo Kong MD [address] [place] [address] [place] [address] PCP - General General Internal Medicine 12/24/2210/19 Tanna Finch APRN [address] [place] [phone] PCP - General Nurse Practitioner 11/04/24 documented as of this encounter
--- OUTSIDE RECORDS SUMMARY | 2025-09-22 10:02 | XMS_ITS | Encounter Summary ---
Author Organization [employer] ([place], [place], [place], [place], [place]) Address [address] [place] [address] Care Team Providers Care Emc Storage Architect Name Role Phone Krissy Pfeiffer MD Primary Care Provider [phone] Tanna Finch APRN Primary Care Provid er Encounter Details Date Type Department Care Team (Late st Contact Info) Description 06/08/2020 Transcribed Document [facility] [place] [address] [place] [address] ProviderJorje MD [address] [place] [address] Social History Tobacco Use Types Packs/Day [...] Conversion Note - Jorje ProviderMD - 06/08/2020 2:53 PM CDT [address] [address] FRANNIE NUÑEZ :1970 Visit Time:06/06/2020 Your Visit Summary Your Care Team Admitting Physician - MILTON SIEGEL MD-CAR Attending Physician - JUAREZ IRWIN MD-KIRTI Primary Care Physician - KRISSY PFEIFFER (REF)MD-MARTI Referring Physician - MILTON SIEGEL MD-CAR Your Diagnosis Heart failure, unspecified, Heart failure, unspecified These Are Your Goals To get this fluid off. Discharge Vitals Heart Rate (Monitored) 92 Respiratory Rate 18 What to do next Follow-Up Appointments Follow Up with MILTON SIEGEL When Within 1 to 2 weeks Where: [address] [facility] [address] [place] (1) Medications What How Much When Instructions Next Dose furosemide (furosemide 40 mg oral tablet) Oral Every Day Tomorrow lamoTRIgine (lamoTRIgine 25 mg oral tablet) Oral Three Times A Day Tonight acetaminophen-oxyCODONE (Percocet 5/ 325 oral tablet) 1 Tablet(s) Oral Every 6 Hours as needed for for pain As Needed ARIPiprazole 10 Milligram(s) Oral Every Day Tomorrow ascorbic acid (Vitamin C 500 mg oral tablet) Oral Every Day Tomorrow atorvastatin (atorvastatin 80 mg oral tablet) Oral Every Day Tonight carisoprodol (carisoprodol 350 mg oral tablet) 1 Tablet(s) Oral Three Times A Day Tonight cholecalciferol (Vitamin D3 50,000 intl units oral capsule) 1 Capsule(s) Oral Weekly Thursday dilTIAZem (DilTIAZem (Eqv-Tiazac) 240 mg/ 24 hours oral capsule, extended release) Oral Every Day Tomorrow ferrous sulfate (ferrous sulfate 325 mg (65 mg elemental iron) oral tablet) Oral Three Times A Day Tonight folic acid (folic acid 1 mg oral tablet) Oral Every Day Tomorrow hydrochlorothiazide-lisinopril (hydroCHLOROthiazide-lisinopril 12.5 mg-20 mg oral tablet) 1 Tablet(s) Oral Two Times A Day Tonight levothyroxine (levothyroxine 88 mcg (0.088 mg) oral tablet) 1 Tablet(s) Oral Every Day Tomorrow magnesium gluconate (magnesium gluconate 500 mg oral tablet) 1 Tablet(s) Oral Two Times A Day Tonight naproxen (naproxen 500 mg oral delayed release tablet) Oral Two Times A Day as needed for Pain As needed pantoprazole (pantoprazole 40 mg oral delayed release tablet) 1 Tablet(s) Oral Every Day Tomorrow potassium chloride (potassium chloride 20 mEq oral tablet, extended release) 1 Tablet(s) Oral Three Times A Day Tomorrow promethazine (promethazine 25 mg oral tablet) Oral Three Times A Day as needed for as needed for nausea/vomiting As needed traZODone (traZODone 100 mg oral tablet) 1 Tablet(s) Oral At Bedtime Tonight venlafaxine (venlafaxine 150 mg oral capsule, extended release) 1 Capsule(s) Oral Every Day Tomorrow venlafaxine (venlafaxine 75 mg oral tablet, extended release) 1 Tablet(s) Oral Every Day Tomorrow zonisamide (zonisamide 100 mg oral capsule) 1 Capsule(s) Oral Two Times A Day 1 tabs in the morning and 2 tabs at night Tonight Take your medications faithfully. Do NOT skip [...] This Visit No Immunizations Found Education Materials Heart Failure, Diagnosis Heart failure means that [...] 07/14/2009 Document Revised: 12/23/2019 Document Reviewed: 12/23/2019 [employer] Patient Education ?? 2020 [employer] Heart Failure, Self Care Heart failure is [...] when you have heart failure Medicines Take qenj-zgi-hcshamg and prescription medicines only as told by [...] Limit how much you use to: ? 0???1 drink a day for women. ? 0???2 drinks a day for men. ? Be aware of how much alcohol is in your drink. In the [place] one drink equals one 12 oz bottle of beer (355 mL), one 5 oz glass of wine (148 mL), or one 1?? oz glass of hard liquor (44 mL). [...] 01/18/2020 Document Revised: 01/17/2020 Document Reviewed: 01/18/2020 [employer] Patient Education ?? 2020 [employer]. Heart Failure Heart failure means your heart has trouble pumping blood. This makes it hard for your body to work well. Heart failure is usually a long-term (chronic) condition. You must take good care of yourself and follow your treatment plan from your doctor. Follow these instructions at home: Medicines ??? Take ffrr-xyw-fbpqwvm and prescription medicines only as told by your doctor. ? Do not stop taking your medicine unless your doctor told you to do that. ? Do not skip any doses. ? Refill your prescriptions before you run out of medicine. You need your medicines every day. Eating and drinking ??? Eat heart-healthy foods. Talk with a diet and animal nutrition consultant (dietitian) to make an eating plan. ??? [...] if told by your doctor. Ask your animal nutrition consultant to recommend heart-healthy seasonings. ??? Cook in [...] of beer, 5 oz of wine, or 1?? oz of hard liquor. ? Tell your [...] 07/14/2009 Document Revised: 06/29/2019 Document Reviewed: 10/27/2017 [employer] Patient Education ?? 2020 [employer]. Emergency Awareness and Preventative Care STROKE is [...] Assistance with quitting is available by contacting 9-573-YKWI-NOW. This is a free resource providing counseling, [...] This Visit (last charted value for your 06/06/2020 visit) Hematology 06/08/2020 4:02 AM WBC: 12.1 K/uL -- Normal range between ( 3.9 and 10.0 ) RBC: 3.79 Million/uL -- Normal range between ( 3.93 and 5.22 ) Hct: 36.0 % -- Normal range between ( 34.1 and 44.9 ) Hgb: 12.1 Gram/dL -- Normal range between ( 11.2 and 15.7 ) Platelet Count: 318 K/uL -- Normal range between ( 163 and 369 ) MCH: 31.9 pg -- Normal range between ( 25.6 and 32.2 ) MCHC: 33.6 Gram/dL -- Normal range between ( 32.3 and 36.5 ) MCV: 95.0 fL -- Normal range between ( 79.0 and 94.8 ) Slide Review: No RDW: 14.3 % -- Normal range between ( 11.6 and 14.4 ) MPV: 10.0 fL -- Normal range between ( 9.4 and 12.4 ) 06/06/2020 7:37 PM Eos %: 1.6 % -- Normal range between ( 1.0 and 7.0 ) Glynn #: 0.57 K/uL -- Normal range between ( 0.24 and 0.82 ) Eos #: 0.20 K/uL -- Normal range between ( 0.04 and 0.54 ) Glynn %: 4.7 % -- Normal range between ( 4.7 and 12.5 ) Baso %: 0.4 % -- Normal range between ( 0.0 and 1.0 ) Baso #: 0.05 K/uL -- Normal range between ( 0.01 and 0.08 ) Neut %: 72.4 % -- Normal range between ( 34.0 and 71.0 ) Neut #: 8.80 K/uL -- Normal range between ( 1.56 and 6.13 ) Lymph %: 19.8 % -- Normal range between ( 19.3 and 53.0 ) Lymph #: 2.40 K/uL -- Normal range between ( 1.18 and 3.74 ) IG#: 0 x10(3)/uL IG%: 1 % -- Normal range between ( 0 and 1 ) nRBC: 0 -- Normal range between ( 1 and 5 ) Urinalysis 06/07/2020 2:21 AM Urine Nitrite: Negative Urine Leukocyte Esterase: Negative Urine Appearance: Clear Urine Glucose Dipstick: Negative Urine Blood Dipstick: Negative Urine Type: U CleanCatch Urine Urobilinogen Dipstick: 0.2 EU/dL -- Normal range between ( 0.2 and 1.0 ) Urine Protein Dipstick: Negative Urine Color: Yellow Urine Ketones Dipstick: Negative Urine pH Dipstick: 5.5 -- Normal range between ( 6.0 and 8.0 ) Urine Bilirubin Dipstick: Negative Urine Specific [place]: 1.007 -- Normal range between ( 1.005 and 1.030 ) Urine Chemistry 06/07/2020 2:21 AM Osmolality Urine: 353 mOsm/kg -- Normal range between ( 250 and 900 ) Sodium Ur Andrew: 97 mMole/Liter General Chemistry 06/08/2020 12:17 PM Creatinine Level: 0.92 mg/dL -- Normal range between ( 0.55 and 1.02 ) Sodium Level: 137 mmol/L -- Normal range between ( 136 and 146 ) Potassium Level: 3.3 mmol/L -- Normal range between ( 3.5 and 5.1 ) Chloride Level: 100 mmol/L -- Normal range between ( 102 and 112 ) Carbon Dioxide Level: 30 mmol/L -- Normal range between ( 21 and 32 ) Anion Gap: 10 -- Normal range between ( 9 and 20 ) Bun/Creatinine: 17.4 -- Normal range between ( 8.0 and 20.0 ) Calcium Level: 8.4 mg/dL -- Normal range between ( 8.5 and 10.1 ) eGFR : >60 mL/min/1.73m2 eGFR NonAfrican: >60 mL/min/1.73m2 Glucose Level: 122 mg/dL -- Normal range between ( 74 and 106 ) Blood Urea Nitrogen: 16 mg/dL -- Normal range between ( 7 and 22 ) 06/08/2020 4:02 AM Magnesium Level: 2.8 mg/dL -- Normal range between ( 1.5 and 2.4 ) 06/06/2020 7:37 PM Bilirubin Total: 0.2 mg/dL -- Normal range between ( 0.2 and 1.3 ) A/G Ratio: 1.1 -- Normal range between ( 1.1 and 2.5 ) ALT: 25 Units/Liter -- Normal range between ( 12 and 78 ) AST: 11 Units/Liter -- Normal range between ( 5 and 37 ) Globulin: 3.4 Gram/dL -- Normal range between ( 1.5 and 4.5 ) Alk Phos: 144 Units/Liter -- Normal range between ( 27 and 136 ) Osmolality Serum: 292 mOsm/kg -- Normal range between ( 280 and 300 ) Protein Total: 7.0 Gram/dL -- Normal range between ( 6.4 and 8.2 ) Albumin Level: 3.6 Gram/dL -- Normal range between ( 3.4 and 5.0 ) Cardiac Specific Markers 06/08/2020 4:02 AM ProBNP: 13 pg/mL -- Normal range between ( 0 and 125 ) Coagulation 06/06/2020 7:37 PM INR: 1.0 -- Normal range between ( 0.9 and 1.1 ) PTT: 28.3 Second(s) -- Normal range between ( 24.2 and 31.8 ) PT: 10.1 Second(s) -- Normal range between ( 9.6 and 11.5 ) Lipid Studies 06/07/2020 5:23 AM Cholesterol Tot: 180 mg/dL -- Normal range between ( 0 and 199 ) Cholesterol HDL: 44.0 mg/dL Cholesterol LDL Calculation: 93.4 mg/dL -- Normal range between ( 0.0 and 99.0 ) Cholesterol VLDL Calculation: 42.6 mg/dL -- Normal range between ( 5.0 and 40.0 ) Cholesterol/HDL Ratio: 4.1 -- Normal range between ( 0.0 and 3.2 ) Triglyceride: 213 mg/dL -- Normal range between ( 0 and 249 ) LDL/HDL Ratio: 2.1 -- Normal range between ( 0.0 and 3.2 ) Fasting?: Yes Endocrinology 06/06/2020 7:37 PM TSH: 2.350 mcInt Units/mL -- Normal range between ( 0.358 and 3.740 ) Diagnostic Radiology 06/07/2020 0:10 AM CR Chest 1 Vw Portable: CR Chest 1 Vw Portable Ultrasound 06/07/2020 4:18 PM US Veins LE Duplex BILAT: US Veins LE Duplex BILAT Echo 06/07/2020 12:41 PM EC Echo Complete: EC Echo Complete Patient Name:FRANNIE NUÑEZ I have received and understand this information and was given the opportunity to ask questions. Patient/Sugar Refinery Supervisor Name: Patient/Sugar Refinery Supervisor Signature: Relationship to Patient: Clinician/Hospital Sugar Refinery Supervisor Signature: Date: Electronically signed by Jordon, Zak Conversion Computer Forensics Investigator Cerner at 02/03/2023 4:37 PM CDT documented in this encounter Plan of Treatment Upcoming Encounters Date Type Department Care Team (Late st Contact Info) Description 12/26/2025 10:00 AM EDT Office Visit [facility] Neurology - [address] [facility] [address] [place] [address] Lino Solis MD [facility] [address] [place] [address] documented as of this encounter Visit Diagnoses Not on filedocumented in this encounter Care Teams Emc Storage Architect Relationship Specialty Start Date End Date Krissy Pfeiffer MD [address] [place] [address] [place] [address] PCP - General General Internal Medicine 12/24/2210/19 Tanna Finch, OMAR [address] [place] [phone] PCP - General Nurse Practitioner 11/04/24 documented as of this encounter
--- OUTSIDE RECORDS SUMMARY | 2025-09-22 10:02 | XMS_ITS | Encounter Summary ---
Author Organization [employer] ([place], [place], [place], [place], [place]) Address [address] [place] [address] Care Team Providers Care Channel Lip Wetter Name Role Phone Ronaldo Kong MD Primary Care Provider [phone] Tanna Finch APRN Primary Care Provid er Encounter Details Date Type Department Care Team (Late st Contact Info) Description 06/08/2020 Transcribed Document [facility] [address] [place] [address] ProviderJorje MD [address] [place] [address] Social History Tobacco Use Types Packs/Day [...] Conversion Note - Jorje ProviderMD - 06/08/2020 1:47 PM CDT On Going Discharge Planning Entered On: 06/08/2020 13:48 EDT Performed On: 06/08/2020 13:47 EDT by Zayra Simons, [employer] Tile Maker-Vendor Relationship Manager Care Management Progress Note Discharge Arrangements : Patient Post-Acute Information Patient Name: FRANNIE NUÑEZ Gender: Female : [birth year] Age: 50 Years No Post-Acute Placement(s) Listed No Post-Acute Service(s) Listed No [place] Referral(s) Listed Discharge Options Discussed with Patient : Discharge transportation Barriers to Discharge Identified : Clinical Condition of Patient Barriers to Discharge Unresolved : Clinical Condition of Patient Designation of Choice Signed : No Patient Offered Choice/Affiliations Explained : No List/Info Provided Pt/Fam/Support Person : Other: tbd Were Referrals Sent to Post Acute Providers : No Does the Patient have a Floor to SNF Benefit? : No Is the Patient Meeting Medical Necessity : Yes Physician Agreeable to Move Forward with D/C Plan? : Yes Did you Attend Multidisciplinary Rounds? : No Zayra Smions Social Worker-[facility] - 06/08/2020 13:47 EDT Narrative Progress Note Narrative Progress Note : 06/08 Per chart, plan is for echo and LE venous dopplers today. Anticipate dc tomorrow. Continue to follow... Zayra Simons Social Worker-[facility] - 06/08/2020 13:47 EDT documented in this encounter Plan of Treatment Upcoming Encounters Date Type Department Care Team (Late st Contact Info) Description 12/26/2025 10:00 AM EDT Office Visit [facility] Neurology - [address] [place] [phone] Lino Solis MD [address] [place] [address] [address] [place] [address] documented as of this encounter Visit Diagnoses Not on filedocumented in this encounter Care Teams Channel Lip Wetter Relationship Specialty Start Date End Date Ronaldo Kong MD [address] [place] [address] [place] [address] PCP - General General Internal Medicine 12/24/2210/19 Tanna Finch APRN [address] [place] [phone] PCP - General Nurse Practitioner 11/04/24 documented as of this encounter
--- OUTSIDE RECORDS SUMMARY | 2025-09-22 10:02 | XMS_ITS | Encounter Summary ---
Author Organization [employer] ([place], [place], [place], [place], [place]) Address [address] [place] [address] Care Team Providers Care Abatement Worker Name Role Phone Ronaldo Kong MD Primary Care Provider [phone] Tanna Finch APRN Primary Care Provid er Encounter Details Date Type Department Care Team (Late st Contact Info) Description 06/08/2020 Transcribed Document [facility] Medicine [address] [place] [address] ProviderJorje MD [address] [place] [address] Social History Tobacco Use Types Packs/Day [...] Conversion Note - Jorje ProviderMD - 06/08/2020 2:19 PM CDT Patient: FRANNIE NUÑEZ Age: 50 years Sex: Female : 1970 Associated Diagnoses: None Author: MILTON SIEGEL MD-CAR Discharge Information PCP: PRIMARY PLYWOOD STOCK GRADER:Lele CONSULTS: Admitting Diagnoses: Diastolic CHF decompensation Discharge Diagnoses: Diastolid dysfunction decompensation and UTI, Hypokalemia due to diuretic Procedures this admission Echo, LE vejous dopplers Pertinent labs Abnormal WBC Hypokalemia Diagnosis (2) Heart failure, unspecified Heart failure, unspecified Physical Examination VS/Measurements Vitals Signs (last 24 hrs) Last Charted Minimum Maximum Temp 98.1 (JUN 08 05:44) 97.9 (JUN 07 18:47) 98.2 (JUN 07:07) Apical HR 83 (JUN 08 08:21) 83 (JUN 08 08:21) 83 (JUN 08 08:21) Mon HR 92 (JUN 08 10:52) 84 (JUN 07 14:52) 100 (JUN 07 18:47) Resp Rate 18 (JUN 08 10:52) 15 (JUN 08 00:17) 18 (JUN 08 07:18) SBP 119 (JUN 08 05:44) 104 (JUN 07:07) 133 (JUN 07:41) DBP 70 (JUN 08 05:44) L 38 (JUN 07:07) 71 (JUN 07:41) MAP 68 (JUN 08 13:43) 47 (JUN 07:07) 81 (JUN 08 01:00) SpO2 99 (JUN 08 10:52) 95 (JUN 07 20:38) 100 (JUN 08 01:00) General: Alert and oriented. Eye: Pupils are equal, round and reactive to light. HENT: Normocephalic. Neck: Supple. Respiratory: Lungs are clear to auscultation. Cardiovascular: Normal rate, Regular rhythm. Gastrointestinal: Soft. Genitourinary: No lesions. Lymphatics: No lymphadenopathy neck, axilla, groin. Musculoskeletal: Normal range of motion. Integumentary: Warm, Dry. Neurologic: Alert, Oriented. Psychiatric: Cooperative, Appropriate mood & affect. Hospital Course Hospital Course Admitted from: from emergency department. Transferred via: by car. Admission disposition: admit to monitored bed. Length of stay: days 2. Discharge Plan 1. Diuretic therapy - diet/exercise, bipap for BRENDA - sleep study repeat ordered to upgrade CPAP to biPap 2. Potassium replacement 3. Levofloxacin 500mg daily for 7 days for UTI - C&S pending Discharge instructions: Cardiac diet Discharged Medications: Follow Up: 2 weeks with repeat BMP and CBC TIME SPENT:30 min Discharge Summary Plan Discharge Status: improved. Discharge instructions given: to patient. Discharge disposition: discharge to home self care. Prescriptions: reviewed with patient, written and given to patient. Course Improving. Progressing as expected. Education and Follow-up Counseled: patient. Electronically signed by Jordon, [facility] Conversion Environmental Communications Specialist Cerner at 02/03/2023 4:47 PM CDT documented in this encounter Plan of Treatment Upcoming Encounters Date Type Department Care Team (Late st Contact Info) Description 12/26/2025 10:00 AM EDT Office Visit [facility] Neurology - [address] [facility] [address] [place] [phone] Lino Solis MD [address] [place] [address] [address] [place] [address] documented as of this encounter Visit Diagnoses Not on filedocumented in this encounter Care Teams Abatement Worker Relationship Specialty Start Date End Date Ronaldo Kong MD [address] [place] [address] [place] [address] PCP - General General Internal Medicine 12/24/2210/19 Tanna Finch APRN [address] [place] [phone] PCP - General Nurse Practitioner 11/04/24 documented as of this encounter
--- OUTSIDE RECORDS SUMMARY | 2025-09-22 10:02 | XMS_ITS | Encounter Summary ---
Author Organization [employer] ([place], [place], [place], [place], [place]) Address [address] [place] [address] Care Team Providers Care Sound Effects Person Name Role Phone Ronaldo Kong MD Primary Care Provider [phone] Tanna Finch APRN Primary Care Provid er Encounter Details Date Type Department Care Team (Late st Contact Info) Description 06/08/2020 Transcribed Document [facility] [place] [address] ProviderJorje MD [address] [place] [address] Social History Tobacco Use Types Packs/Day [...] Conversion Note - Jorje ProviderMD - 06/08/2020 5:00 AM CDT Height and Weight, Routine Entered On: 06/08/2020 6:06 EDT Performed On: 06/08/2020 5:00 EDT by Mahsa Win Care Asst-Health Unit Coord Height and Weight, Routine Routine Weight Source : Standing scale Routine Weight Entry Format : [place] Routine Weight, Pounds : 293 lb Routine Weight, Ounces : 6 oz Routine Weight Calculation : 133.35 kg Height Source : Stated Height Entry Format : [place] Height, Feet : 5 ft Height, Inches : 7 Inch Clinical Height : 170.18 cm Body Surface Area (BSA), Routine : 2.38 m2 Body Mass Index (BMI), Routine : 46.04 kg/m2 Mahsa Win Care Asst-Health Unit [facility] - 06/08/2020 6:05 EDT Electronically signed by Jordon, [facility] Conversion Manager Fitness Cerner at 02/03/2023 4:47 PM CDT documented in this encounter Plan of Treatment Upcoming Encounters Date Type Department Care Team (Late st Contact Info) Description 12/26/2025 10:00 AM EDT Office Visit [facility] Neurology - [address] [place] [address] Lino Solis MD [address] [place], [place] [phone] documented as of this encounter Visit Diagnoses Not on filedocumented in this encounter Care Teams Sound Effects Person Relationship Specialty Start Date End Date Ronaldo Kong MD [address] [place] [address] [place] [address] PCP - General General Internal Medicine 12/24/2210/19 Tanna Finch APRN [address] [place] [phone] PCP - General Nurse Practitioner 11/04/24 documented as of this encounter
--- OUTSIDE RECORDS SUMMARY | 2025-09-22 10:02 | XMS_ITS | Encounter Summary ---
Author Organization [employer] ([place], [place], [place], [place], [place]) Address [address] [place] [address] Care Team Providers Care Residential Specialist Name Role Phone Ronaldo Kong MD Primary Care Provider [phone] Tanna Finch APRN Primary Care Provid er Encounter Details Date Type Department Care Team (Late st Contact Info) Description 05/06/2019 Transcribed Document [facility] [place] [address] [place] [address] ProviderJorje MD [address] [place] [address] Social History Tobacco Use Types Packs/Day [...] Conversion Note - Historical ProviderMD - 05/06/2019 3:23 PM CDT documented in this encounter Plan of Treatment Upcoming Encounters Date Type Department Care Team (Late st Contact Info) Description 12/26/2025 10:00 AM EDT Office Visit [facility] Neurology - [facility] [address] [phone] Lino Solis MD [address] [facility] [address] [place] [address] documented as of this encounter Visit Diagnoses Not on filedocumented in this encounter Care Teams Residential Specialist Relationship Specialty Start Date End Date Ronaldo Kong MD [address] [place] [address] [place] [address] PCP - General General Internal Medicine 12/24/2210/19 Tanna Finch APRN [address] [place] [phone] PCP - General Nurse Practitioner 11/04/24 documented as of this encounter
--- OUTSIDE RECORDS SUMMARY | 2025-09-22 10:02 | XMS_ITS | Encounter Summary ---
Author Organization [facility] Address [address] [place] [address] Care Team Providers Care Sql Server Dba Name Role Phone System, Provider Not In Primary Care Provider Un available Encounter Details Date Type Department Care Team (Latest Contact Info) Description 08/22/2025 Travel Social History Tobacco Use Types Packs/Day [...] or training? Not on file Preferred Language Malawian 03/03/2024 PHQ-2 Answer Date Recorded Retired PHQ-9: [...] 11/13/2025 11:00 AM EST Office Visit [facility]ARD[facility] [address] [phone] Daphney Hall MD [address] [address] 11/13/2025 11:00 AM EST Clinical Support No Requirements [facility] [address] [place] [phone] 12/20/2025 1:30 PM EST Office Visit [facility]ARD[facility] [address] [place] [phone] Daphney Hall MD [address] [address] 12/20/2025 1:30 PM EST Clinical Support No Requirements [facility] [address] [place] [phone] documented as of this encounter Visit Diagnoses Not on filedocumented in this encounter Additional Health Concerns Assessment Noted Time PHQ-2 Depression Total Score: 3 07/18/20 24 11:28 AM EDT documented as of this encounter Care Teams Sql Server Dba Relationship Specialty Start Date End Date System, [place] [address] PCP - General 02/14/25 documented as of this encounter
--- OUTSIDE RECORDS SUMMARY | 2025-09-22 10:02 | XMS_ITS | Encounter Summary ---
Author Organization [employer] ([place], [place], [place], [place], [place]) Address [address] [place] [address] Care Team Providers Care Chief Operator Lock Tender Name Role Phone Ronaldo Kong MD Primary Care Provider [phone] Tanna Finch APRN Primary Care Provid er Encounter Details Date Type Department Care Team (Late st Contact Info) Description 06/08/2020 Transcribed Document [facility] Family Medicine [address] [place] [address] ProviderJorje MD [address] [place] [address] Social History Tobacco Use Types Packs/Day Years Used Date Smoking Tobacco: Never Assessed Comments Unknown Sex and Gender Information Value Date Recorded Sex Assigned at Female 04/17/2022 4:47 PM CDT Legal Sex Female 3:02 PM CDT Gender Identity Female 04/17/2022 4:47 PM CDT Sexual Orientation Not on file documented as of this encounter Miscellaneous Notes * Auraner Conversion Note - Jorje ProviderMD - 06/08/2020 5:00 AM CDT Chart Check - Review Order Profile Entered On: 06/08/2020 5:46 EDT Performed On: 06/08/2020 5:00 EDT by Alisson Kahn Rn Chart Check Powerplans Initiated/Discontinued as Appropriate : Yes All Active Orders Reviewed : Yes Alisson Kahn Rn - 06/08/2020 5:46 EDT documented in this encounter Plan of Treatment Upcoming Encounters Date Type Department Care Team (Late st Contact Info) Description 12/26/2025 10:00 AM EDT Office Visit [facility] Neurology - [address] [facility] [address] [place] [address] [place] [address] [place] [address] [address] [place], [place] [id number] documented as of this encounter Visit Diagnoses Not on filedocumented in this encounter Care Teams Chief Operator Lock Tender Relationship Specialty Start Date End Date Ronaldo Kong MD [address] [place] [address] PCP - General General Internal Medicine 12/24/2210/19 Tanna Finch APRN [address] [place] [phone] PCP - General Nurse Practitioner 11/04/24 documented as of this encounter
--- OUTSIDE RECORDS SUMMARY | 2025-09-22 10:02 | XMS_ITS | Encounter Summary ---
Author Organization [employer] ([place], [place], [place], [place], [place]) Address [address] [place] [address] Care Team Providers Care Timber Supervisor Name Role Phone Ronaldo Kong MD Primary Care Provider [phone] Tanna Finch APRN Primary Care Provid er Encounter Details Date Type Department Care Team (Late st Contact Info) Description 05/06/2019 Transcribed Document [facility] Family Medicine [address] [place] [address] ProviderJorje MD [address] [place] [address] Social History Tobacco Use Types Packs/Day [...] Cerner Conversion Note - Jorje ProviderMD - 05/06/2019 3:34 PM CDT ED Discharge Entered On: 05/06/2019 15:35 EDT Performed On: 05/06/2019 15:34 EDT by CALLI GORDON RN Discharge Process Patient Disposition : Discharge Personal Belongings With Patient : Yes Patient Education Completed : Yes Teaching Evaluation : Verbalizes understanding IV Discontinued : Yes Nursing Documentation Completed : Yes CALLI GORDON RN - 05/06/2019 15:34 EDT ED Discharge Discharge To : Home with ambulatory/outpatient follow-up Mode Of Departure : Ambulatory Discharge Instructions Reviewed With, Opportunity For Questions Given : Patient EVAN CALLI, RN - 05/06/2019 15:34 EDT documented in this encounter Plan of Treatment Upcoming Encounters Date Type Department Care Team (Late st Contact Info) Description 12/26/2025 10:00 AM EDT Office Visit [facility] Neurology - [address] [facility] [address] [place] [address] [place] [address] [place] [address] [address] [place] [address] documented as of this encounter Visit Diagnoses Not on filedocumented in this encounter Care Teams Timber Supervisor Relationship Specialty Start Date End Date Ronaldo Kong MD [address] [place] [address] PCP - General General Internal Medicine 12/24/2210/19 Tanna Finch APRN [address] [place] [phone] PCP - General Nurse Practitioner 11/04/24 documented as of this encounter
--- OUTSIDE RECORDS SUMMARY | 2025-09-22 10:03 | XMS_ITS | Encounter Summary ---
Author Organization [facility] Address [address] [place] [address] Care Team Providers Care Belt Loop Maker Name Role Phone System, Provider Not In Primary Care Provider Un available Encounter Details Date Type Department Care Team (Late st Contact Info) Description 09/06/2025 Telephone [facility] CARDIOLOGY [address] [place] [address] Daphney Hall MD [address] [place] [address] Social History Tobacco Use Types Packs/Day [...] or training? Not on file Preferred Language Czech 03/03/2024 PHQ-2 Answer Date Recorded Retired PHQ-9: Brief Depression Severity Measure Score 21 11/30/2023 Comments No Sex and Gender Information Value Date Recorded Sex Assigned at Female 03/08/2025 7:42 AM EDT Legal Sex Female 12:37 PM EDT Gender Identity Not on file Sexual Orientation Not on file documented as of this encounter Miscellaneous Notes * Telephone Encounter - Virginia Schmidt MA - 09/07/2025 8:21 AM EST .REQUEST FOR CARDIAC CLEARANCE Caller name: Frannie Nuñez Surgeon's name: Dr. Banerjee Type of planned surgery: Nerve stimulator Date of planned surgery: 09-29-25 Type of anesthesia: Local Have you been experiencing chest pain or shortness of breath? No Is your doctor requesting for you to stop any of your medications prior to your surgery? No Where should we fax the clearance to? [phone] Any new symptoms since last OV? No Any worsening of edema or worsening palpitations? No Any major medical issues since last OV , ER VISITS, we need to know? No Is the patient on Eliquis, xarelto, pradaxa, Coumadin/Warfarin? No Is the patient on aspirin? Yes, ASA 81 mg qd Is the patient on brilinta (ticagrelor), plavix (clopidogrel), prasugrel (effient)? No Is the patient on medications like mounjaro or ozempic? Yes, Ozempic Last EKG? 03-08-25 Last stress test? 12-31-22 Last echo? 03-01-25 Last heart cath or CCTA? 01-15-23 Last OV? 08-22-25 with Odalis Do you have a history of BRENDA? Yes If BRENDA, are you following your treatment plan, wearing CPAP/BIPAP? Yes using BIPAP Please advise patient that a provider must review the above information and their chart to determine if procedure is safe. If this is an urgent procedure please notify providers josé and document. * Telephone Encounter - Sarah Rodgers RegSched Rep - 09/06/2025 3:44 PM EST [facility] IS REQUESTING CARDIAC CLEARANCE FOR A SPINAL CORD STIMULATOR TRIAL PROCEDURE SCHEDULED TENTATIVELY FOR 09/29/2025. CARDIAC CLEARANCE REQUEST FORM HAS BEEN SCANNED INTO PT'S CHART. THANK YOU. FAX #: ATTN: [facility] documented in this encounter Plan of Treatment Upcoming Encounters Date Type Department Care Team (Late st Contact Info) Description 11/13/2025 11:00 AM EST Office Visit [facility] [address] [phone] Daphney Hall MD [address] [address] 11/13/2025 11:00 AM EST Clinical Support No Requirements [facility] [place] [place] [phone] 12/20/2025 1:30 PM EST Office Visit [facility] [address] [phone] Daphney Hall MD [address] [address] 12/20/2025 1:30 PM EST Clinical Support No Requirements [facility] [address] [phone] documented as of this encounter Visit Diagnoses Not on filedocumented in this encounter Additional Health Concerns Assessment Noted Time PHQ-2 Depression Total Score: 3 07/18/20 24 11:28 AM EDT documented as of this encounter Care Teams Belt Loop Maker Relationship Specialty Start Date End Date System, [place] [address] PCP - General 02/14/25 documented as of this encounter
--- OUTSIDE RECORDS SUMMARY | 2025-09-22 10:03 | XMS_ITS | Encounter Summary ---
Author Organization [employer] ([place], [place], [place], [place], [place]) Address [address] [place] [address] Care Team Providers Care Apartment Hotel Manager Name Role Phone Ronaldo Kong MD Primary Care Provider [phone] Tanna Finch APRN Primary Care Provid er Encounter Details Date Type Department Care Team (Late st Contact Info) Description 06/07/2020 Transcribed Document [facility] [place] [address] [place] [address] ProviderJorje MD [address] [place] [address] Social History Tobacco Use Types Packs/Day [...] Auraner Conversion Note - Jorje ProviderMD - 06/07/2020 5:00 AM CDT Chart Check - Review Order Profile Entered On: 06/07/2020 5:54 EDT Performed On: 06/07/2020 5:00 EDT by Alisson Kahn Rn Chart Check Powerplans Initiated/Discontinued as Appropriate : Yes All Active Orders Reviewed : Yes Alisson Kahn Rn - 06/07/2020 5:54 EDT Electronically signed by Jordon [facility] Conversion Customer Complaint Service Supervisor Cerner at 02/03/2023 4:43 PM CDT documented in this encounter Plan of Treatment Upcoming Encounters Date Type Department Care Team (Late st Contact Info) Description 12/26/2025 10:00 AM EDT Office Visit [facility] Neurology - [address] [facility] [address] [place] [address] [place] [address] [place] [address] [address] [place], [place] [id number] documented as of this encounter Visit Diagnoses Not on filedocumented in this encounter Care Teams Apartment Hotel Manager Relationship Specialty Start Date End Date Ronaldo Kong MD [address] [place] [address] PCP - General General Internal Medicine 12/24/2210/19 Tanna Finch APRN [address] [place] [phone] PCP - General Nurse Practitioner 11/04/24 documented as of this encounter
--- OUTSIDE RECORDS SUMMARY | 2025-09-22 10:03 | XMS_ITS | Encounter Summary ---
Author Organization [employer] ([place], [place], [place], [place], [place]) Address [address] [place] [address] Care Team Providers Care Leather Cutter Name Role Phone Ronaldo Kong MD Primary Care Provider [phone] Tanna Finch APRN Primary Care Provid er Encounter Details Date Type Department Care Team (Late st Contact Info) Description 06/07/2020 Transcribed Document [facility] [place] [address] [place] [address] ProviderJorje MD [address] [place] [address] Social History Tobacco Use Types Packs/Day [...] Cerner Conversion Note - Historical ProviderMD - 06/07/2020 11:49 AM CDT Treatment Intervention, PT Entered On: 06/08/2020 11:31 EDT Performed On: 06/08/2020 10:18 EDT by MADELINE BUCHANAN, PT General Information, PT Visit Type, PT : Treatment Note Patient Orders : Order Date Order Ordering 06/06/2020 17:39 PT Evaluation and Treatment Ordered By: JUAREZ IRWIN MD-CAR 06/07/2020 11:49 PT Additional Treatment Ordered By: DANNY MCDONALD, PT Active Diagnoses : No Qualifying Diagnoses Therapy Diagnosis, PT : malaise and fatigue Admission Date : 06/06/2020 16:25 Personal Devices : Personal Devices No Devices Recorded Assistive Devices : Assistive Devices No Devices Recorded Precautions in Place : Fall prevention measures MADELINE BUCHANAN, PT - 06/08/2020 11:14 EDT General Status Patient Received Status : Other: sidelying in bed, tele Treatment Start Time : 06/08/2020 9:55 EDT Patient Left Status : Supine in bed, Communication board completed, Other: All lines intact RN/PCT Informed Comment : RN Ok'd pt for PTx Treatment End Time : 06/08/2020 10:18 EDT Treatment Time : 23 Minute(s) MADELINE BUCHANAN, PT - 06/08/2020 11:14 EDT Intervention Summary Heart Rate/Pulse Post-intervention : 120 bpm O2 Post-Intervention : RA SpO2 Post-Intervention : 100 % MADELINE BUCHANAN, PT - 06/08/2020 11:14 EDT Plan of Care, PT PT Tx Plan/Goals Established w Patient : Yes MADELINE BUCHANAN, PT - 06/08/2020 11:14 EDT [facility] Goals Other PT LTG Grid Goal #1 Goal #2 Other : Patient will be Supervision/Independent with all transfers to return to [facility]. Patient will ambulate 300' without AD Supervision for community distances and improved endurance. Date to Meet : 06/10/2020 EDT 06/10/2020 EDT Goal Status : Progressing, continue Progressing, continue MADELINE BUCHANAN, PT - 06/08/2020 11:14 EDT MADELINE BUCHANAN, PT - 06/08/2020 11:14 EDT Treatment Note Subjective Comment : pt was agreeable to PTx. She states that she has been doing some motion with RUE and some therex Patient's Response to Treatment : Good, SOA Additional Objective Information : Pt was Mod IND for sup to sit to stand She amb 300' Rwx, slow tianna, CGA, wide VINCENT, SOA during gait. She was returned to EOB with supervision and O2 sat was 100%. She performed LE therex x 20 reps (AP, LAQ, MIP, pillow squeezes) Then pt was assisted to do AA/PROM shoulder flexion x10, Abduction x 4 (then pt requested to stop due to pain), ER to neutral x 10 in 30* ABD. Scap pinches and shoudler rolls x10 each. Pt was educated to keep up with PROM into flexion while using LUE to assist, shoulder/elbow/hand ex during the day. Pt was actively using RUE to don socks and demonstrated AROM into scaption while in sidelying before noting that she wasn't supposed to do AROM to shoulder Assessment : Pt tolerated gait well but with some SOA. She is actively using RUE some. She had pain with assisted ABD (really was scaption) today. She can continue to benefit from PT to inc mobility and assist with rehab to R shoulder until d/c Plan for Treatment : Cont with POC MADELINE BUCHANAN, PT - 06/08/2020 11:14 EDT Pain Assessment Pain Scaled Used : FACES Pain Score Pre-Intervention : 3 Pain Score During-Intervention : 8 Pain Score Post-Intervention. : 3 MADELINE BUCHANAN, PT - 06/08/2020 11:14 EDT Image 1 - Images currently included in the form version of this document have not been included in the text rendition version of the form. [facility] Charges PT Therap. Exercise 15 min : 1 Gait Training Each 15 Min : 1 MADELINE BUCHANAN, PT - 06/08/2020 11:14 EDT documented in this encounter Plan of Treatment Upcoming Encounters Date Type Department Care Team (Late st Contact Info) Description 12/26/2025 10:00 AM EDT Office Visit [facility] Neurology - [address] [facility] [address] [place] [phone] Lino Solis MD [address] [place] [address] [address] [place] [address] documented as of this encounter Visit Diagnoses Not on filedocumented in this encounter Care Teams Leather Cutter Relationship Specialty Start Date End Date Ronaldo Kong MD [address] [place] [address] [place] [address] PCP - General General Internal Medicine 12/24/2210/19 Tanna Finch, OMAR [address] [place] [phone] PCP - General Nurse Practitioner 11/04/24 documented as of this encounter
--- OUTSIDE RECORDS SUMMARY | 2025-09-22 10:03 | XMS_ITS | Encounter Summary ---
Author Organization [employer] ([place], [place], [place], [place], [place]) Address [address] [place] [address] Care Team Providers Care Clinical Audiologist Name Role Phone Ronaldo Kong MD Primary Care Provider [phone] Tanna Finch APRN Primary Care Provid er Encounter Details Date Type Department Care Team (Late st Contact Info) Description 06/07/2020 Transcribed Document [facility] [place] [facility] [place] [address] ProviderJorje MD [address] [place] [address] Social History Tobacco Use Types Packs/Day [...] Cerner Conversion Note - Jorje ProviderMD - 06/07/2020 2:25 PM CDT Initial Discharge Planning Entered On: 06/07/2020 14:28 EDT Performed On: 06/07/2020 14:25 EDT by Zayra Simons, Athletics Teacher-Camp Manager Initial Assessment I Previously Documented Living Environment : No qualifying data available. Living Situation : Home Patient Lives With : Alone Is the Patient a Caregiver at Home? : No Emergency Contact #1 : Mary Rosario Emergency Contact #1 : Home [phone]:cell Emergency Contact #1 Relationship : Mother Emergency Contact #2 : None Emergency Contact #2 Phone Number : None Emergency Contact #2 Relationship : None Enter Doctors Name : Ronaldo Kong Does Patient have PCP Listed? : Yes Legal Guardian : No Is Guardianship Needed : No Zayra Simons Social Worker-Emmanuel - 06/07/2020 14:25 EDT Initial Assessment II Sensory and Motor Deficits : None Current Home Treatments and Equipment : BiPAP Home Equipment Contact Information : Lori for [employer] and Community Resources : Other: None Does the Patient have a Floor to SNF Benefit? : No Zayra Simons Social Worker-Emmanuel - 06/07/2020 14:25 EDT Discharge Needs I Anticipated Discharge To, CM : Home independently Current Home Treatment/Equipment : Current Home Treatment/Equipment No qualifying data available. Post Acute/Home Treatments : None Documentation Status Complete : Yes Zayra Simons Social Worker-Bsw - 06/07/2020 14:25 EDT Discharge Needs II Professional Skilled Services : Professional Skilled Services No qualifying data available. Services and Community Resources : Outpatient Cardiac Rehab, Physical Therapy Needs Assistance with Transportation : No Discharge Options Discussed with Patient : Discharge transportation Zayra Simons Social Worker-Camp Manager - 06/07/2020 14:25 EDT Narrative Note Narrative Note : 06/07 Low RRS. Met with pt at the bedside. Pt reports she resides alone at [address] [place] [address]. Pt reports she is independent with ADLs at baseline. Pt reports she is current with outpatient PT at [facility]. Pt reports she plans to return home and her brother [place] transport her [place]. Continue to follow... Zayra Simons Social Worker-Camp Manager - 06/07/2020 14:25 EDT Electronically signed by Tanika Ruvalcaba Conversion Telecommunication Lines Repairer Cerner at 02/03/2023 4:46 PM CDT documented in this encounter Plan of Treatment Upcoming Encounters Date Type Department Care Team (Late st Contact Info) Description 12/26/2025 10:00 AM EDT Office Visit [facility] Neurology - [place] [id number] [facility] [address] [place] [phone] Lino Solis MD [address] [place] [address] [address] [place] [address] documented as of this encounter Visit Diagnoses Not on filedocumented in this encounter Care Teams Clinical Audiologist Relationship Specialty Start Date End Date Ronaldo Kong MD [address] [place] [address] PCP - General General Internal Medicine 12/24/2210/19 Tanna Finch APRN [address] [place] [phone] PCP - General Nurse Practitioner 11/04/24 documented as of this encounter
--- OUTSIDE RECORDS SUMMARY | 2025-09-22 10:03 | XMS_ITS | Encounter Summary ---
Author Organization [employer] ([place], [place], [place], [place], [place]) Address [address] [place] [address] Care Team Providers Care Install And Repair Technician Name Role Phone Ronaldo Kong MD Primary Care Provider [phone] Tanna Finch APRN Primary Care Provid er Encounter Details Date Type Department Care Team (Late st Contact Info) Description 06/07/2020 Transcribed Document [facility] [place] [facility] [address] ProviderJorje MD [address] [place] [address] Social History Tobacco Use Types Packs/Day [...] Conversion Note - Jorje ProviderMD - 06/07/2020 12:44 PM CDT Patient: FRANNIE NUÑEZ Age: 50 years Sex: Female : 1970 Associated Diagnoses: None Author: MILTON SIEGEL MD-[facility] Daily Progress Note Chief Complaint Basic Information Pt feels better after Bumex drip overnight - lost 10 pounds - edema better Review of Systems Constitutional: Fatigue, Decreased activity, No fever, No chills. Eye Ear/Nose/Mouth/Throat Respiratory: Shortness of breath, No cough. Cardiovascular: Peripheral edema, No chest pain, No palpitations. Gastrointestinal Genitourinary Hematology/Lymphatics Endocrine Musculoskeletal Integumentary Neurologic: No dizziness, No syncope. Psychiatric All other systems. Health Status Allergies: Allergic Reactions (Selected) Severity Not Documented Benadryl- No reactions were documented. Tetanus immune globulin- No reactions were documented. Current medications: (Selected) Inpatient Medications Ordered Colace: 100 mg, Oral, BID Flexeril: 10 mg, Oral, TID Lasix: 40 mg, Oral, Daily Naprosyn: 500 [...] Daily ferrous sulfate: 325 mg, Oral, Daily hydrOXYzine hydrochloride: 25 mg, Oral, TID hydroCHLOROthiazide: 12.5 mg, Oral, BID lamoTRIgine: 25 mg, Oral, TID lisinopril: 20 mg, Oral, BID morphine: 2 mg, IV Push, Q5Min, PRN: Pain (Severe 7-10) nicotine 21 mg/24 hr transdermal film, extended release: 1 Patch, TransDermal, Daily potassium chloride 20 mEq oral tablet, extended release: 40 mEq, 2 Tab, Oral, 1-Time, PRN: Other (See Comment) traZODone: 100 mg, Oral, At Bedtime zonisamide: 100 mg, Oral, Daily zonisamide: 200 mg, Oral, At Bedtime Documented Medications Documented ARIPiprazole: 10 mg, Oral, [...] at night, 60 Cap, 0 Refill(s), Medications (25) Active Scheduled: (15) #NaCl 0.9% *FLUSH* inj 10 mL 10 mL, IV Push, Q12H ascorbic acid 500 mg tab 500 mg 1 Tab, Oral, Daily cyclobenzaprine 10 mg tab 10 mg 1 Tab, Oral, TID diltiazem CR24 240 mg cap 240 mg 1 Cap, Oral, Daily docusate sodium 100 mg cap 100 mg 1 Cap, Oral, BID ferrous sulfate 325 mg EC tab 325 mg 1 Tab, Oral, Daily furosemide 40 mg tab 40 mg 1 Tab, Oral, Daily hydrochlorothiazide 25 mg tab 12.5 mg 0.5 Tab, Oral, BID hydrOXYzine hcl 25 mg tab 25 mg 1 Tab, Oral, TID lamoTRIgine 25 mg tab 25 mg 1 Tab, Oral, TID lisinopril 20 mg tab 20 mg 1 Tab, Oral, BID nicotine 21 mg/24 hr patch 1 Patch, TransDermal, Daily traZODone 50 mg tab 100 mg 2 Tab, Oral, At Bedtime zonisamide 50 mg cap 100 mg 2 Cap, Oral, Daily zonisamide 50 mg cap 200 mg 4 Cap, Oral, At Bedtime Continuous: (2) bumetanide 12 mg [1 mg/Hr] [...] Problem list: Medical Anxiety / SNOMED CT 36597756 / Confirmed Arthritis / SNOMED CT 6023427 / Confirmed Asthma / SNOMED CT 511933382 / Confirmed Borderline personality disorder / SNOMED CT 23469811 / Confirmed Cornea scar / SNOMED CT 618366255 / Confirmed Depression / SNOMED CT 115950012 / Confirmed Diverticulitis / SNOMED CT 958646676 / Confirmed DJD (degenerative joint disease) / SNOMED CT [id number] / Confirmed DM - Diabetes mellitus / SNOMED CT 637728596 / Confirmed Fibromyalgia / SNOMED CT 043884703 / Confirmed Folic acid deficiency / SNOMED CT 802792007 / Confirmed Glaucoma / SNOMED CT 64868327 / Confirmed History of obstructive sleep apnea / IMO 08455814 / Confirmed HTN - Hypertension / SNOMED CT 8402982974 / Confirmed Hypothyroid / SNOMED CT 556530709 / Confirmed Migraines / SNOMED CT 94651160 / Confirmed PTSD (post-traumatic stress disorder) / SNOMED CT [id number] / Confirmed Sleep apnea / SNOMED CT 878593677 / Confirmed Tobacco abuse / SNOMED CT 480879724 / Confirmed Tremors of nervous system / SNOMED CT 91197234 / Confirmed Vitamin D deficiency / SNOMED CT 56952312 / Confirmed Resolved: Endometriosis / SNOMED CT 4478417283 Resolved: Raynaud's disease / SNOMED CT 890157959 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, Active Problems (22) Anxiety Arthritis Asthma Borderline personality disorder Cornea scar Depression Diverticulitis DJD (degenerative joint disease) DM - Diabetes mellitus Fibromyalgia Folic acid deficiency Glaucoma History of obstructive sleep apnea HTN - Hypertension Hyperlipidemia Hypothyroid Migraines PTSD (post-traumatic stress disorder) Sleep apnea Tobacco abuse Tremors of nervous system Vitamin D deficiency Physical Examination Intake and Output 24 hour intake, 24 hour output VS/Measurements Vitals Signs (last 24 hrs) Last Charted Minimum Maximum Temp 97.5 (JUN 07 04:39) 97.5 (JUN 07 04:39) 98.1 (JUN 06 16:36) Apical HR 87 (JUN 07 08:46) 87 (JUN 07 08:46) 87 (JUN 07 08:46) Mon HR 79 (JUN 07 11:11) 72 (JUN 06 20:00) 85 (JUN 07 02:00) Resp Rate 16 (JUN 07 11:11) 16 (JUN 06 16:36) 18 (JUN 07 04:39) SBP 119 (JUN 07 04:39) 113 (JUN 06 20:00) 120 (JUN 06 16:36) DBP 64 (JUN 07 04:39) L 55 (JUN 06 17:29) 73 (JUN 06 16:36) MAP 76 (JUN 07 04:39) 67 (JUN 06 17:29) 80 (JUN 06 16:36) SpO2 98 (JUN 07 11:11) 97 (JUN 06 17:29) 99 (JUN 06 20:00) , Measurements from flowsheet : Measurements 06/07/2020 5:00 EDT Height Source Stated Height Entry Format [place] Height/Length, LIBYAN (ft) 5 ft Height/Length LIBYAN 7 Inch CLINICALHEIGHT 170.18 cm Routine Weight Source Standing scale Routine Weight Entry Format [place] Routine Weight, Pounds 296 lb Routine Weight, Ounces 9 oz Routine Weight Calculation 134.8 kg Body Mass Index (BMI), Routine 46.54 kg/m2 Body Surface Area (BSA), Routine 2.39 m2 06/06/2020 16:23 EDT Height Source Stated Height Entry Format [place] Height/Length, LIBYAN (ft) 5 ft Height/Length LIBYAN 7 Inch CLINICALHEIGHT 170.18 cm King Body Weight 61 kg Weight Source Bed scale Weight Entry Format [place] Weight Romanian lb 303 lb CLINICALWEIGHT 137.73 kg Body Surface Area (BSA) 2.41 m2 Body Mass Index 47.6 kg/m2 >HHI Most Recent Height/Length Measured: 170.18cm 06/07/2020 05:00 Height/Length Dosing: Weight Measured: Weight Dosing: BMI Measured: Contributing Values Height/Length Measured: Weight Measured: General: Alert and oriented, No acute distress, morbidly obese. Neck: Supple, No carotid bruit. Respiratory: Lungs are clear to auscultation, Respirations are non-labored, Breath sounds are equal, Symmetrical chest wall expansion. Cardiovascular: Normal rate, Regular rhythm, Good pulses equal in all extremities, distant sounds. Edema: Bilateral, Lower extremity. Gastrointestinal: Soft, Non-tender. Integumentary: Warm, Dry, [place]. Neurologic: Alert, Oriented. Psychiatric: Cooperative, Appropriate mood & affect. Review / Management Results review: Labs (Last four charted values) WBC H 12.2 (JUN 06) HB 11.4 (JUN 06) HCT 34.1 (JUN 06) Plt 316 (JUN 06) Na 139 (JUN 07) 139 (JUN 07) 140 (JUN 06) 140 (JUN 06) K L 3.0 (JUN 07) C 2.7 (JUN 07) L 3.0 (JUN 06) L 3.0 (JUN 06) Cl 102 (JUN 07) L 101 (JUN 07) 105 (JUN 06) 105 (JUN 06) CO2 29 (JUN 07) 30 (JUN 07) 27 (JUN 06) 27 (JUN 06) BUN 12 (JUN 07) 11 (JUN 07) 12 (JUN 06) 13 (JUN 06) Cr 0.85 (JUN 07) 0.77 (JUN 07) 0.85 (JUN 06) 0.82 (JUN 06) Glu R H 134 (JUN 07) H 125 (JUN 07) H 124 (JUN 06) H 126 (JUN 06) Ca L 7.9 (JUN 07) L 8.0 (JUN 07) 8.6 (JUN 06) 8.9 (JUN 06) PT 10.1 (JUN 06) INR 1.0 (JUN 06) PTT 28.3 (JUN 06) AST 11 (JUN 06) ALT 25 (JUN 06) ALK P H 144 (JUN 06) T Bili 0.2 (JUN 06) PTN 7.0 (JUN 06) ALB 3.6 (JUN 06) . Talent Development Specialist Condition Impression and Plan IMPRESSION/PLAN 1. Decompensated chronic and acute diastolic heart failure HFpEF likely due to sever BRENDA and morbid obesity Improved with diuretics 2. Hypokalemia - replaced; also replaced Magnesium - recheck in AM 3. Anticipate discharge in AM Echo and LE venous dopplers today documented in this encounter Plan of Treatment Upcoming Encounters Date Type Department Care Team (Late st Contact Info) Description 12/26/2025 10:00 AM EDT Office Visit [facility] Neurology - [address] [facility] [address] [place] [address] [place] [address] [place] [address] [address] [place], [place] [id number] documented as of this encounter Visit Diagnoses Not on filedocumented in this encounter Care Teams Install And Repair Technician Relationship Specialty Start Date End Date Ronaldo Kong MD [address] [place] [address] PCP - General General Internal Medicine 12/24/2210/19 Tanna Finch APRN [address] [place] [phone] PCP - General Nurse Practitioner 11/04/24 documented as of this encounter
--- OUTSIDE RECORDS SUMMARY | 2025-09-22 10:03 | XMS_ITS | Encounter Summary ---
Author Organization [employer] ([place], [place], [place], [place], [place]) Address [address] [place] [address] Care Team Providers Care Postdoctoral Scientist Name Role Phone Ronaldo Kong MD Primary Care Provider [phone] Tanna Finch APRN Primary Care Provid er Encounter Details Date Type Department Care Team (Late st Contact Info) Description 06/07/2020 Transcribed Document [facility] [place] [address] [place] [address] ProviderJorje MD [address] [place] [address] Social History Tobacco Use Types Packs/Day [...] Jorje ProviderMD - 06/07/2020 5:00 AM CDT Height and Weight, Routine Entered On: 06/07/2020 6:30 EDT Performed On: 06/07/2020 5:00 EDT by Alisson Kahn Rn Height and Weight, Routine Routine Weight Source : Standing scale Routine Weight Entry Format : [place] Routine Weight, Pounds : 296 lb Routine Weight, Ounces : 9 oz Routine Weight Calculation : 134.8 kg Height Source : Stated Height Entry Format : [place] Height, Feet : 5 ft Height, Inches : 7 Inch Clinical Height : 170.18 cm Body Surface Area (BSA), Routine : 2.39 m2 Body Mass Index (BMI), Routine : 46.54 kg/m2 Alisson Kahn, Rn - 06/07/2020 6:30 EDT Electronically signed by Jordon, [facility] Conversion Molecular Pathologist Cerner at 02/03/2023 4:44 PM CDT documented in this encounter Plan of Treatment Upcoming Encounters Date Type Department Care Team (Late st Contact Info) Description 12/26/2025 10:00 AM EDT Office Visit [facility] Neurology - [address] [place] [phone] Lino Solis MD [address] [place] [address] documented as of this encounter Visit Diagnoses Not on filedocumented in this encounter Care Teams Postdoctoral Scientist Relationship Specialty Start Date End Date Ronaldo Kong MD [address] [place] [address] [place] [address] PCP - General General Internal Medicine 12/24/2210/19 Tanna Finch APRN [address] [place] [phone] PCP - General Nurse Practitioner 11/04/24 documented as of this encounter
--- OUTSIDE RECORDS SUMMARY | 2025-09-22 10:03 | XMS_ITS | Encounter Summary ---
Author Organization [employer] ([place], [place], [place], [place], [place]) Address [address] [place] [address] Care Team Providers Care Marshmallow Machine Operator Name Role Phone Ronaldo Kong MD Primary Care Provider [phone] Tanna Finch APRN Primary Care Provid er Encounter Details Date Type Department Care Team (Late st Contact Info) Description 06/07/2020 Transcribed Document [facility] [place] [facility] [place] [address] ProviderJorje MD [address] [place] [address] Social History Tobacco Use Types Packs/Day [...] Conversion Note - Jorje ProviderMD - 06/07/2020 11:54 AM CDT UM Authorization Entered On: 06/07/2020 11:55 EDT Performed On: 06/07/2020 11:54 EDT by AGUILAR KERR RN-Utilization Review Primary Insurance Authorization Authorization and Policy Numbers : Insurance 1 Health Plan: [employer] Medicaid Policy Number: [id number] Authorization Number: Insurance Primary Name : [place] Medicaid Authorization Status-Primary : Awaiting callback Authorized Service Begin Date-Primary : 06/06/2020 EDT Authorization Comments-Primary : Uploaded clinicals to [employer] via [employer]. Historical Authorization Comments-Primary : No Authorization Comments Found AGUILAR KERR RN-Utilization Review - 06/07/2020 11:54 EDT documented in this encounter Plan of Treatment Upcoming Encounters Date Type Department Care Team (Late st Contact Info) Description 12/26/2025 10:00 AM EDT Office Visit [facility]rology [facility] [address] [facility] [address] [place] [phone] Lino Solis MD [address] [place] [address] [address] [place] [address] documented as of this encounter Visit Diagnoses Not on filedocumented in this encounter Care Teams Marshmallow Machine Operator Relationship Specialty Start Date End Date Ronaldo Kong MD [address] [place] [address] PCP - General General Internal Medicine 12/24/2210/19 Tanna Finch APRN [address] [place] [phone] PCP - General Nurse Practitioner 11/04/24 documented as of this encounter
--- OUTSIDE RECORDS SUMMARY | 2025-09-22 10:03 | XMS_ITS | Clinical Summary ---
Author Organization [employer] ([place], [place], [place], [place], [place]) Address [address] [place] [address] Care Team Providers Care Environmental Scientists Name Role Phone Tanna Finch APRN Primary Care Provid er Allergies Active Allergy Reactions Criticality Noted Date Comments Adhesive Tape Rash Low 09/08/2022 Diphenhydramine Hives High 10/01/2010 Diphtheria Toxoid,Adsorbed Rash Low Gabapentin Anaphylaxis High 08/28/2025 Meclizine Hcl Rash Low 08/12/2022 Metformin Nausea Only 05/09/2024 Other Dermatitis Low 12/24/2021 Other reaction(s): Dermatitis Tape adhesive, steri-strips Tape adhesive, steri-strips Sulfamethoxazole-Trimethoprim Nausea Only Low 07/13 Tetanus Immune Globulin 09/24/2022 Other reaction(s): Hives Tetanus Toxoid Fluid Hives High 10/01/2010 Medications * This document contains information received from the source organization and may not represent a complete record from that organization. acetaminophen (TYLENOL) 325 MG tablet Take 2 tablets (650 mg total) by mouth every 6 (six) hours if needed. 09/25/20 21 Active albuterol HFA (VENTOLIN HFA) 90 mcg/actuation inhaler Inhale by mouth via inhaler. Active cetirizine (ZyrTEC) 10 MG tablet Take 1 tablet (10 mg total) by mouth daily. 09/05/20 22 Active ondansetron (ZOFRAN-ODT) 4 MG disintegrating tablet Take 1 tablet (4 mg total) by mouth every 6 (six) hours if needed. 10/22/19 22 Active spironolactone (ALDACTONE) 50 MG tablet Take 1 tablet (50 mg total) by mouth daily. 11/12/19 23 Active aspirin 81 MG EC tablet Take 1 tablet (81 mg total) by mouth daily. 10/17/20 24 Active desvenlafaxine (PRISTIQ) 100 MG 24 hr tablet Take 1 tablet (100 mg total) by mouth daily. 10/20/19 25 Active Trelegy Ellipta 100-62.5-25 mcg dsdv 1 puff daily. 10/25/19 25 Active carvediloL (COREG) 12.5 MG tablet Take 1 tablet (12.5 mg total) by mouth 2 (two) times daily. Active furosemide (LASIX) 20 MG tablet TAKE ONE TABLET BY MOUTH 2 TIMES A DAY. TAKE ONE TABLET NEEDED FOR AGRESSIVE EDEMA OR WEIGHT GAIN GREATER THAN 2 POUNDS OVER 24 HOURS 01/21/20 25 Active linaCLOtide (LINZESS) 290 mcg cap Take 145 mcg by mouth every morning before breakfast. Active Ozempic 1 mg/dose (4 mg/3 mL) pnij Inject 1 mg under the skin once a week. 05/22/20 25 Active QUEtiapine (SEROquel) 50 MG tablet Take 1-2 tablets (50-100 mg total) by mouth nightly. 05/12/20 25 Active methocarbamoL (ROBAXIN) 500 MG tablet Take 2 tablets (1,000 mg total) by mouth every 6 (six) hours as needed. 05/26/20 25 Active dexlansoprazole 60 mg capsule Take 1 capsule (60 mg total) by mouth daily. 04/07/20 25 Active atorvastatin (LIPITOR) 80 MG tablet Take 1 tablet (80 mg total) by mouth daily. Active lamoTRIgine 200 mg tr24 Take 1 tablet (200 mg total) by mouth daily ONCE A. Active traMADoL (ULTRAM) 50 mg tablet Take 1 tablet (50 mg total) by mouth 2 (two) times daily as needed FOR PAIN. Active baclofen (LIORESAL) 10 MG tabletIndications: Fibromyalgia,Degen erative disc disease, lumbar Take 1 tablet (10 mg total) by mouth 4 (four) times daily as needed. 360 tablet 1 08/21/20 25 Active galcanezumab-gnlm (Emgality Pen) 120 mg/mL penIndications:Harjit ricks without aura and without status migrainosus, not intractable Inject 1 mL (120 mg total) under the skin every 30 (thirty) days. 1 mL 6 08/21/20 25 Active rimegepant (Nurtec ODT) 75 mg TbDLIndications:Pa rtial seizure disorder (HCC) Take 75 mg by mouth as directed Take Nurtec ODT 75 mg as needed for migraine once in 24 hours.. 16 tablet 5 08/21/20 25 Active rOPINIRole (REQUIP) 2 MG tabletIndications: RLS (restless legs syndrome) Take 2 tablets (4 mg total) by mouth nightly MOUTH EVERY. 60 tablet 5 08/21/20 25 Active zonisamide (ZONEGRAN) 100 MG capsuleIndications :Partial seizure disorder (HCC) Take 100 mg every morning and 200 mg every evening. 270 capsule 3 08/21/20 25 Active desvenlafaxine 50 mg Tb24 1 tablet Orally Once a day 06/13/20 25 Active nystatin, bulk, 10 billion unit powd as directed. 06/13/20 25 Active famotidine (PEPCID) 20 MG tablet Take 1 tablet (20 mg total) by mouth 2 (two) times daily as needed. 025 Discontin ued(Thera py completed ) pregabalin (LYRICA) 25 MG capsuleIndications :Fibromyalgia Take 1 capsule (25 mg total) by mouth 2 (two) times daily. Max Daily Amount: 50 mg 180 capsule 1 08/21/20 25 025 Discontin ued(Thera py completed ) Active Problems Problem Noted Date Diagnosed Date Degenerative disc disease, cervical 06/07/2025 High risk medication use 11/04/2024 Common migraine without aura 08/18/2024 Paresthesias 02/04/2024 Partial seizure disorder 12/28/2023 B12 deficiency 09/24/2022 Avitaminosis D 09/24/2022 Vertigo 09/24/2022 RLS (restless legs syndrome) 09/24/2022 Migraine without aura and wi thout status migrainosus, not intractable 09/24/2022 Degenerative disc disease, lumbar 09/24/2022 Fibromyalgia 09/24/2022 Encounters * This document contains information received from the source organization and may not represent a complete record from that organization. Date Type Department Care Team Description 08/28/2025 2:00 PM EST Office Visit [facility] Orthopedics - [address] [place] [address] Kaushik London PA-C Bilateral carpal tunnel syndrome (Primary Dx); Cubital tunnel syndrome, bilateral 08/21/2025 1:30 PM EST Office Visit [facility] Neurology - [address] [place] [address] Lino Solis MD Fibromyalgia (Primary Dx); Partial seizure disorder (HCC); Degenerative disc disease, cervical; Cognitive change; Right carpal tunnel syndrome; Migraine without aura and without status migrainosus, not intractable; Degenerative disc disease, lumbar; RLS (restless legs syndrome); High risk medication use; Cognitive communication deficit 08/21/2025 Travel from Last 3 Months Immunizations Immunization Administration Dates Next Due Influenza TIV (IM) 07/11/2019 Family History Medical History Relation Name Comments Heart disease Father Christiano Rosario Rheum arthritis Maternal Grandmother Consuelo Lira Hypertension Mother Depression Other Diabetes Other Heart failure Other Hyperlipidemia Other Migraines Other Relation Name Status Comments Father Christiano Rosario Maternal Grandmother Consuelo Annsharon Mother Alive Other Social History Tobacco Use Types Packs/Day Years [...] Date Joseph rded Speak language other than Salvadorean at home Not on file 11/06/2023 Want [...] PM CDT Sexual Orientation Not on file Last Filed Vital Signs Vital Sign Reading Time Taken Comments Blood Pressure 128/75 08/28/2025 2:30 PM EST Pulse 91 08/28/2025 2:30 PM EST Temperature - - Respiratory Rate - - Oxygen Saturation 98% 06/25/2023 2:23 PM EDT Inhaled Oxygen Concentration - - Weight 121.1 kg (267 lb) 08/28/2025 2:30 PM EST Height 170.2 cm (5' 7 ) 08/28/2025 2:30 PM EST Body Mass Index 41.82 08/28/2025 2:30 PM EST Plan of Treatment Upcoming Encounters Date Type Department Care Team (Late st Contact Info) Description 12/26/2025 10:00 AM EDT Office Visit [facility] Neurology - [address] [place] [id number] Lino Solis MD [address] [place] [address] Health Maintenance Due Date Last Done Comments CT Colonography 1970 Colonoscopy 1970 Colorectal Cancer Screening 1970 FOBT/FIT 1970 Fit-DNA (Cologuard) 1970 Sigmoidoscopy 1970 HIV Screening 1985 Hepatitis C Screening 1988 DTAP/TDAP/TD VACCINES (1 - Tdap) 1989 Pap Smear 1991 Breast Cancer Screening 2010 Lung Cancer Screening 2020 05/06/2019 Tobacco Cessation Counseling and Screening (12+) 08/05/2024 08/05/2023 COVID-19 VACCINE (3 - season) 2025, 01/19/2021 Influenza Vaccine (#1) 2025 07/11/2019 Lipid Panel 01/15/2026 01/15/2023, 06/07/2020 Pneumococcal 50+ years Completed 07/04/2022 Shingles Vaccine (Zoster) Completed 11/21/2024, Medical Devices Implanted Type Area Spool Tender Device Identifier Shelf Expiration Date Model / Serial / Lot Asscelia Pacemaker-07/20 Implanted:07/20 (Quantity not on file) Pacemakers Chest CARLTON VASCULAR DEVICE CARLTON ASSCELIA PACEMAKER [id number] / [id number] / Description:CARLTON ASSCELIA PACEMAKER [id number] RV LEAD SERIAL# [id number] MODEL 2087TC/58 RA LEAD SERIAL# [id number] MODEL 2087TC/52 1.5T AND NORMAL OPERATING MODE FULL BODY RF TRANSMIT COIL WITH ANY RECEIVE COIL. LOCAL RF TRANSMIT-RECEIVE COIL IN NORMAL MODE RF TRANSMIT-RECEIVE HEAD COIL RF TRANSMIT-RECEIVE LOWER EXTREMITY COIL RF TRANSMIT RECEIVE UPPER EXTREMITY COIL SPATIAL FIELD GRADENT<30T/m (3000 G/CM) GRADIENT SLEW RATE <200 T/m/s Pain Mgmt/Stimulato r-02/13/2023 Implanted:01/18 (Quantity not on file) Pain Mgmt/Stimulato r MEDTRONIC AppvanceTRONIC SYNCHROMED ll 8637-20 / [id number] / Description:1.5T AND 3T RF COIL-ANY TYPE MAX SPATIAL FIELD GRADIENT OF 19T/m (1900 GAUSS/CM MAX GRADIENT SLEW RATE-200T/M/S OR LESS MAX RF FIELD INTENSITY-FIRST LEVEL CONTROL ACTIVE SCAN TIME-THE RISK OF HEATING INCREASES FOR ACTIVE TORSO SCANNING DURATIONS OVER 30 MIN. Pain Mgmt/Stimulato r-08/13/2023 Implanted:07/20 (Quantity not on file) Pain Mgmt/Stimulato r Hip Statzup NEUROSTIMULAT OR-F15 MODEL 4101 4101 / [id number] / Description:1.5T AND 3T MUST PACE IMPEDENCE CHECK WITH REMOTE WHOLE BODY GAGE<2W/kg SCAN DURATION-MAX 30 MINUTES OF CONTINUOUS SCAN TIME ALLOWED FOLLOWED BY 5 MINUTES WAIT TIME SCAN REGION-ANY BODY PART Procedures Procedure Name Priority Date/Time Associated Diagnosis Comments LIPID PANEL Routine 06/07/2020 5:23 AM EDT CTA CHEST FOR PULMONARY EMBOLUS STAT 05/06/2019 2:50 PM EDT from Last 3 Months or Most Recently Relevant to Health Maintenance Results * (ABNORMAL) LIPID PANEL (06/07/2020 5:23 AM EDT) Fasting? Yes 06/06/2020 9:40 PM EDT Triglyceride 213 0 - 249 mg/dL 06/07/2020 10:17 AM EDT Cholesterol HDL 44.0 mg/dL 0 10:17 AM EDT Comment: Desirable > 60 mg/dl Increased Risk < 40 mg/dl Cholesterol Total 180 0 - 199 mg/dL 06/07/2020 10:17 AM EDT Comment: 200 to 239 mg/dL Moderate (borderline) >239 mg/dL High Cholesterol VLDL Calculation 42.6(H) 5.0 - 40.0 mg/dL 06/07/2020 10:17 AM EDT Comment:Calculated by Discer n Rule [id number] Cholesterol LDL Calculation 93.4 0.0 - 99.0 mg/dL 06/07/2020 10:17 AM EDT Comment: DESIRABLE <130 BORDERLINE 130 to 159 HIGH >=160 Cholesterol/HDL Ratio 4.1(H) 0.0 - 3.2 06/07/2020 10:17 AM EDT LDL/HDL Ratio 2.1 0.0 - 3.2 06/07/2020 10:17 AM EDT Blood 06/07/2020 5:23 AM EDT 06/07/2020 9:51 AM EDT [facility] Historical Provider PATHOLOGY/CYTOLOGY OLIVE HERRERA Final Result Performing Organization Address City/State/[facility] Co de Phone Number [facility] [address] [phone] * CT chest for pulmonary embolus (05/06/2019 2:50 PM EDT) Anatomical Region Laterality Modality Computed Tomogra phy 05/06/2019 2:50 PM EDT Narrative 05/06/2019 9:15 PM EDT CTA/PE PROTOCOL CHEST CT: 05/06/2019 1:03 PM HISTORY: Shortness of breath . COMPARISON: None. TECHNIQUE: The patient was injected with IV contrast . Axial images were obtained through the chest in a CTA/ PE protocol. 3 D Reconstruction images were also performed. This study was performed with techniques to keep radiation doses as low as reasonably achievable, (ALARA). Individualized dose reduction techniques using automated exposure control or adjustment of mA and/or kV according to the patient size were employed. FINDINGS: There is no axillary adenopathy. There is no hilar or mediastinal adenopathy . The heart size is normal. There is no pericardial or pleural effusion . Bolus is suboptimal for evaluation of pulmonary embolus. No central or proximal segmental embolus is identified. There is no aortic dissection . Limited images of the upper abdomen are unremarkable . There is a 7 mm noncalcified nodule identified in the left upper lobe. There is an adjacent noncalcified 5 mm left upper lobe nodule. There is a 5 mm noncalcified pleural-based nodule within the right upper lobe. There is a 5 mm noncalcified nodule within the right middle lobe. No acute infiltrate is identified. IMPRESSION: Suboptimal bolus without central or proximal segmental pulmonary embolus identified. Indeterminate pulmonary nodules. Follow-up CT of the chest in 6 months is recommended. Images reviewed, interpreted, and dictated by Dr. Dee Jones. Transcribed by Goran Mckeon PA-C I have personally viewed, interpreted and dictated the examination. I have read and agree with the above final transcribed report. Procedure Note Dee Jones MD - 02/03/2023 CTA/PE PROTOCOL CHEST CT: 05/06/2019 1:03 PM HISTORY: Shortness of breath . COMPARISON: None. TECHNIQUE: The patient was injected with IV contrast . Axial images were obtained through the chest in a CTA/ PE protocol. 3 D Reconstruction images were also performed. This study was performed with techniques to keep radiation doses as low as reasonably achievable, (ALARA). Individualized dose reduction techniques using automated exposure control or adjustment of mA and/or kV according to the patient size were employed. FINDINGS: There is no axillary adenopathy. There is no hilar or mediastinal adenopathy . The heart size is normal. There is no pericardial or pleural effusion . Bolus is suboptimal for evaluation of pulmonary embolus. No central or proximal segmental embolus is identified. There is no aortic dissection . Limited images of the upper abdomen are unremarkable . There is a 7 mm noncalcified nodule identified in the left upper lobe. There is an adjacent noncalcified 5 mm left upper lobe nodule. There is a 5 mm noncalcified pleural-based nodule within the right upper lobe. There is a 5 mm noncalcified nodule within the right middle lobe. No acute infiltrate is identified. IMPRESSION: Suboptimal bolus without central or proximal segmental pulmonary embolus identified. Indeterminate pulmonary nodules. Follow-up CT of the chest in 6 months is recommended. Images reviewed, interpreted, and dictated by Dr. Dee Jones. Transcribed by Goran Mckeon PA-C I have personally viewed, interpreted and dictated the examination. I have read and agree with the above final transcribed report. us Dee Jones MD IMG CT ORDERABLES Final Result from Last 3 Months or Most Recently Relevant to Health Maintenance [place] [address] Care Teams Environmental Scientists Relationship Specialty Start Date End Date Tanna Finch APRN [address] [place] [phone] PCP - General Nurse Practitioner 11/04/24
--- OUTSIDE RECORDS SUMMARY | 2025-09-22 10:03 | XMS_ITS | Encounter Summary ---
Author Organization [employer] ([place], [place], [place], [place], [place]) Address [address] [place] [address] Care Team Providers Care Hematologist Oncologist Name Role Phone Ronaldo Kong MD Primary Care Provider [phone] Tanna Finch APRN Primary Care Provid er Encounter Details Date Type Department Care Team (Late st Contact Info) Description 06/07/2020 Transcribed Document [facility] [place] [address] [place] [address] ProviderJorje MD [address] [place] [address] Social History Tobacco Use Types Packs/Day [...] Jorje ProviderMD - 06/07/2020 11:54 AM CDT grooving machine operator Form Entered On: 06/07/2020 11:54 EDT Performed On: 06/07/2020 11:54 EDT by AGUILAR KERR RN-Utilization Review UM Additional Information UM Additional Comment : Request for inpt stay. Clinicals to follow. ICD 10: I50.9 AGUILAR KERR RN-Utilization Review - 06/07/2020 11:54 EDT Electronically signed by Tanika Ruvalcaba Conversion Energy Conservation Engineer Cerner at 02/03/2023 4:41 PM CDT documented in this encounter Plan of Treatment Upcoming Encounters Date Type Department Care Team (Late st Contact Info) Description 12/26/2025 10:00 AM EDT Office Visit [facility] Neurology - [address] [facility] [address] [place] [address] Lino Solis MD [address] [place] [address] [address] [place] [address] documented as of this encounter Visit Diagnoses Not on filedocumented in this encounter Care Teams Hematologist Oncologist Relationship Specialty Start Date End Date Dilan, Ronaldo Yates MD [address] [place] [address] PCP - General General Internal Medicine 12/24/2210/19 Tanna Finch APRN [address] [place] [phone] PCP - General Nurse Practitioner 11/04/24 documented as of this encounter
--- OUTSIDE RECORDS SUMMARY | 2025-09-22 10:03 | XMS_ITS | Encounter Summary ---
Author Organization [employer] ([place], [place], [place], [place], [place]) Address [address] [place] [address] Care Team Providers Care Spinning Supervisor Name Role Phone Ronaldo Kong MD Primary Care Provider [phone] Tanna Finch APRN Primary Care Provid er Encounter Details Date Type Department Care Team (Late st Contact Info) Description 06/07/2020 Transcribed Document [facility] [place] [address] [place] [address] ProviderJorje MD [address] [place] [address] Social History Tobacco Use Types Packs/Day [...] Conversion Note - Jorje ProviderMD - 06/07/2020 7:01 PM CDT Sepsis Screening Tool Entered On: 06/07/2020 23:22 EDT Performed On: 06/07/2020 19:01 EDT by Alisson Kahn Rn Provider Notification Provider Notified of Concerns/Results : SIRS/Sepsis Alert Provider Not Notified Reason : No significant change from prior results warranting no tx Alisson Kahn Rn - 06/07/2020 23:22 EDT Electronically signed by Tanika Ruvalcaba Conversion Software Implementation Project Manager Cerner at 02/03/2023 4:47 PM CDT documented in this encounter Plan of Treatment Upcoming Encounters Date Type Department Care Team (Late st Contact Info) Description 12/26/2025 10:00 AM EDT Office Visit [facility] Neurology - [address] [facility] [address] [place] [address] Lino Solis MD [address] [place] [address] [address] [place] [address] documented as of this encounter Visit Diagnoses Not on filedocumented in this encounter Care Teams Spinning Supervisor Relationship Specialty Start Date End Date Ronaldo Kong MD [address] [place] [address] PCP - General General Internal Medicine 12/24/2210/19 Tanna Finch APRN [address] [place] [phone] PCP - General Nurse Practitioner 11/04/24 documented as of this encounter
--- OUTSIDE RECORDS SUMMARY | 2025-09-22 10:03 | XMS_ITS | Encounter Summary ---
Author Organization [employer] ([place], [place], [place], [place], [place]) Address [address] [place] [address] Care Team Providers Care Student Union Consultant Name Role Phone Ronaldo Kong MD Primary Care Provider [phone] Tanna Finch APRN Primary Care Provid er Encounter Details Date Type Department Care Team (Late st Contact Info) Description 06/08/2020 Transcribed Document [facility] [place] [facility] [place] [address] ProviderJorje MD [address] [place] [address] Social History Tobacco Use Types Packs/Day [...] Conversion Note - Jorje ProviderMD - 06/08/2020 11:28 AM CDT UM Authorization Entered On: 06/08/2020 11:29 EDT Performed On: 06/08/2020 11:28 EDT by MARU KHAN RN-Utilization Review Primary Insurance Authorization Authorization and Policy Numbers : Insurance 1 Health Plan: [employer] Policy Number: [id number] Authorization Number: Insurance Primary Name : [employer] [id number] Authorization Status-Primary : Denial - admission Reference Number-Primary : [id number] Authorized Service Begin Date-Primary : 06/06/2020 EDT Authorization Comments-Primary : [place] [employer] denied per fax for inpt Historical Authorization Comments-Primary : Comment 1: Uploaded clinicals to [employer] via [employer]. (AGUILAR KERR RN-Utilization Review 06/07/2020 11:54) MARU KHAN RN-Utilization Review - 06/08/2020 11:28 EDT documented in this encounter Plan of Treatment Upcoming Encounters Date Type Department Care Team (Late st Contact Info) Description 12/26/2025 10:00 AM EDT Office Visit [facility] Neurology - [place] [address] [facility] [address] [place] [address] Lino Solis MD [address] [place] [address] [address] [place] [address] documented as of this encounter Visit Diagnoses Not on filedocumented in this encounter Care Teams Student Union Consultant Relationship Specialty Start Date End Date Ronaldo Kong MD [address] [place] [address] [place] [address] PCP - General General Internal Medicine 12/24/2210/19 Tanna Finch APRN [address] [place] [phone] PCP - General Nurse Practitioner 11/04/24 documented as of this encounter
--- OUTSIDE RECORDS SUMMARY | 2025-09-22 10:03 | XMS_ITS | Encounter Summary ---
Author Organization [employer] ([place], [place], [place], [place], [place]) Address [address] [place] [address] Care Team Providers Care Cloth Finishing Range Operator Chief Name Role Phone Ronaldo Kong MD Primary Care Provider [phone] Tanna Finch APRN Primary Care Provid er Encounter Details Date Type Department Care Team (Late st Contact Info) Description 06/07/2020 Transcribed Document [facility] [place] [address] [place] [address] ProviderJorje MD [address] [place] [address] Social History Tobacco Use Types Packs/Day [...] Note - Jorje ProviderMD - 06/07/2020 5:00 PM CDT Chart Check - Review Order Profile Entered On: 06/07/2020 16:05 EDT Performed On: 06/07/2020 17:00 EDT by Emperatriz Bell RN-Resource Chart Check Powerplans Initiated/Discontinued as Appropriate : Yes All Active Orders Reviewed : Yes Emperatriz Bell RN-Radhika - 06/07/2020 16:05 EDT documented in this encounter Plan of Treatment Upcoming Encounters Date Type Department Care Team (Late st Contact Info) Description 12/26/2025 10:00 AM EDT Office Visit [facility] Neurology - [address] [facility] [address] [place] [address] Lino Solis MD [address] [place] [address] [address] [place] [address] documented as of this encounter Visit Diagnoses Not on filedocumented in this encounter Care Teams Cloth Finishing Range Operator Chief Relationship Specialty Start Date End Date Ronaldo Kong MD [address] [place] [address] PCP - General General Internal Medicine 12/24/2210/19 Tanna Finch APRN [address] [place] [phone] PCP - General Nurse Practitioner 11/04/24 documented as of this encounter
--- OUTSIDE RECORDS SUMMARY | 2025-09-22 10:03 | XMS_ITS | Encounter Summary ---
[facility] Organization [facility] Address [address] [place] [address] Care Team Providers Care Concrete Pump Operator Name Role Phone System, Provider Not In Primary Care Provider Un available Reason for Visit * Reason Comments Med Refill Encounter Details Date Type Department Care Team (Late st Contact Info) Description 09/05/2025 Refill [facility] CARDIOLOGY [address] [place] [address] Dania Gray APRN [address] [place] [address] Med Refill Social History Tobacco [...] or training? Not on file Preferred Language Haitian 03/03/2024 PHQ-2 Answer Date Recorded Retired PHQ-9: [...] Office Visit [facility] [address] [address] Daphney Hall MD [address] [address] 11/13/2025 11:00 AM EST Clinical Support No Requirements [facility] CARDIOLOGY [address] [phone] 12/20/2025 1:30 PM EST Office Visit [facility] [address] [address] Daphney Hall MD [address] [address] 12/20/2025 1:30 PM EST Clinical Support No Requirements [facility] CARDIOLOGY [address] [phone] documented as of this encounter Visit Diagnoses Diagnosis Chronic diastolic (congestive) heart failure documented in this encounter Additional Health Concerns Assessment Noted Time PHQ-2 Depression Total Score: 3 07/18/20 24 11:28 AM EDT documented as of this encounter Care Teams Concrete Pump Operator Relationship Specialty Start Date End Date System, [place] [address] PCP - General 02/14/25 documented as of this encounter
--- OUTSIDE RECORDS SUMMARY | 2025-09-22 10:03 | XMS_ITS | Encounter Summary ---
Author Organization [employer] ([place], [place], [place], [place], [place]) Address [address] [place] [address] Care Team Providers Care Dedicated Intermodal Truck Driver Name Role Phone Ronaldo Kong MD Primary Care Provider [phone] Tanna Finch APRN Primary Care Provid er Encounter Details Date Type Department Care Team (Late st Contact Info) Description 06/07/2020 Transcribed Document [facility] [place] [address] [place] [address] ProviderJorje MD [address] [place] [address] Social History Tobacco Use Types Packs/Day [...] Conversion Note - Jorje ProviderMD - 06/07/2020 2:00 AM CDT Flower Planter Details Entered On: 06/07/2020 5:54 EDT Performed On: 06/07/2020 2:00 EDT by Alisson Kahn Rn Order Details Transport Mode Order Detail : Wheelchair Isolation Precautions Order Detail : Standard Precautions Order Detail : 0 IV Order Detail : 1 Oxygen Order Detail : 0 Nurse Collect Order Detail : 0 Lift/Transfer : Minimal Central Line Order Detail : No Room Service : Appropriate Arterial Line : No Alisson Kahn, Rn - 06/07/2020 5:54 EDT documented in this encounter Plan of Treatment Upcoming Encounters Date Type Department Care Team (Late st Contact Info) Description 12/26/2025 10:00 AM EDT Office Visit [facility] Neurology - [address] [place] [phone] [place] [address] [place] [address] Drive [address] [place], [place] [id number] documented as of this encounter Visit Diagnoses Not on filedocumented in this encounter Care Teams Dedicated Intermodal Truck Driver Relationship Specialty Start Date End Date Ronaldo Kong MD [address] [place] [address] PCP - General General Internal Medicine 12/24/2210/19 Tanna Finch APRN [address] [place] [phone] PCP - General Nurse Practitioner 11/04/24 documented as of this encounter
--- OUTSIDE RECORDS SUMMARY | 2025-09-22 10:03 | XMS_ITS | Encounter Summary ---
Author Organization [employer] ([place], [place], [place], [place], [place]) Address [address] [place] [address] Care Team Providers Care Mural Artist Name Role Phone Ronaldo Kong MD Primary Care Provider [phone] Tanna Finch APRN Primary Care Provid er Encounter Details Date Type Department Care Team (Late st Contact Info) Description 06/08/2020 Transcribed Document [facility] [place] Family Medicine [address] [place] [address] ProviderJorje MD [address] [place] [address] Social History Tobacco Use Types Packs/Day [...] Conversion Note - Jorje ProviderMD - 06/08/2020 2:59 PM CDT Final Discharge Planning Entered On: 06/08/2020 15:00 EDT Performed On: 06/08/2020 14:59 EDT by Zayra Simons, Demographic Analyst-Landscape Supervisor Final Discharge Planning Discharge Arrangements : Patient Post-Acute Information Patient Name: FRANNIE NUÑEZ Gender: Female : [birth year] Age: 50 Years No Post-Acute Placement(s) Listed No Post-Acute Service(s) Listed No Curaspan Referral(s) Listed Patient Offered Choice/Affiliations Explained : No Designation of Choice Signed : No Important Medicare Message Reviewed With : Other: N/A Transportation Needs : Family/Friend Follow Up Appointment Scheduled : No Is Patient High/Moderate Readmission Risk? : No Patient/Family Notified of Plan : Yes Is Patient Ready for Discharge? : Yes Physician Notified Patient is Ready for Discharge? : No Discharge To Care Management : Home/Residential/Fdc or Self Care - Zayra Simons Demographic Analyst-Landscape Supervisor - 06/08/2020 14:59 EDT Final Narrative Note Final Narrative Note : 06/08 Pt has dc orders in place. No dc needs noted. Zayra Simons Social Worker-Landscape Supervisor - 06/08/2020 14:59 EDT Electronically signed by Jordon [facility] Conversion Manager Location [employer] at 02/03/2023 4:44 PM CDT documented in this encounter Plan of Treatment Upcoming Encounters Date Type Department Care Team (Late st Contact Info) Description 12/26/2025 10:00 AM EDT Office Visit [facility] Neurology - [address] [facility] [address] [place] [phone] Lino Solis MD [address] [place] [address] [address] [place] [address] documented as of this encounter Visit Diagnoses Not on filedocumented in this encounter Care Teams Mural Artist Relationship Specialty Start Date End Date Ronaldo Kong MD [address] [place] [address] [place] [address] PCP - General General Internal Medicine 12/24/2210/19 Tanna Finch APRN [address] [place] [phone] PCP - General Nurse Practitioner 11/04/24 documented as of this encounter
--- OUTSIDE RECORDS SUMMARY | 2025-09-22 10:03 | XMS_ITS | Referral Summary ---
Author Organization [employer] ([place], [place], [place], [place], [place]) Address [address] [place] [address] Care Team Providers Care Clock Maker Name Role Phone Tanna Finch APRN Primary Care Provid er Encounters * This document contains information received from the source organization and may not represent a complete record from that organization. Date Type Department Care Team Description 08/28/2025 2:00 PM EST Office Visit [facility] Orthopedics - [address] [place] [address] Kaushik London PA-C Bilateral carpal tunnel syndrome (Primary Dx); Cubital tunnel syndrome, bilateral 08/21/2025 Travel 08/21/2025 1:30 PM EST Office Visit [facility] Neurology - [address] [place] [address] Lino Solis MD Fibromyalgia (Primary Dx); Partial seizure disorder (HCC); Degenerative disc disease, cervical; Cognitive change; Right carpal tunnel syndrome; Migraine without aura and without status migrainosus, not intractable; Degenerative disc disease, lumbar; RLS (restless legs syndrome); High risk medication use; Cognitive communication deficit from Last 3 Months Allergies Active Allergy Reactions Criticality Noted Date [...] Active galcanezumab-gnlm (Emgality Pen) 120 mg/mL penIndications:Harjit rambo without aura and without status migrainosus, not [...] Degenerative disc disease, lumbar 09/24/2022 Fibromyalgia 09/24/2022 Immunizations Immunization Administration Dates Next Due Influenza TIV (IM) 07/11/2019 Social History Tobacco Use Types Packs/Day Years [...] Date Joseph rded Speak language other than Stateless at home Not on file 11/06/2023 Want [...] Office Visit [facility] Neurology - [address] [employer] [address] [place] [address] Lino Solis MD [address] [place] [address] Medical Devices Implanted Type Area Funeral Pre Arrangement Specialist Device Identifier Shelf Expiration Date Model / Serial / Lot Assurity Pacemaker-07/20 Implanted:07/20 (Quantity not on file) Pacemakers Chest [employer] CARLTON ASSURITY PACEMAKER [id number] / [id number] / Description:[employer]ITY PACEMAKER [id number] RV LEAD SERIAL# [id number] MODEL 2087TC/58 RA LEAD SERIAL# [id number] MODEL 2087TC/52 1.5T AND NORMAL OPERATING MODE FULL BODY RF TRANSMIT COIL WITH ANY RECEIVE COIL. LOCAL RF TRANSMIT-RECEIVE COIL IN NORMAL MODE RF TRANSMIT-RECEIVE HEAD COIL RF TRANSMIT-RECEIVE LOWER EXTREMITY COIL RF TRANSMIT RECEIVE UPPER EXTREMITY COIL SPATIAL FIELD GRADENT<30T/m (3000 G/CM) GRADIENT SLEW RATE <200 T/m/s Pain Mgmt/Stimulato r-02/13/2023 Implanted:01/18 (Quantity not on file) Pain Mgmt/Stimulato r MEDTRONIC MEDTRONIC SYNCHROMED ll 8637-20 / [id number] / Description:1.5T AND 3T RF COIL-ANY TYPE MAX SPATIAL FIELD GRADIENT OF 19T/m (1900 GAUSS/CM MAX GRADIENT SLEW RATE-200T/M/S OR LESS MAX RF FIELD INTENSITY-FIRST LEVEL CONTROL ACTIVE SCAN TIME-THE RISK OF HEATING INCREASES FOR ACTIVE TORSO SCANNING DURATIONS OVER 30 MIN. Pain Mgmt/Stimulato r-08/13/2023 Implanted:07/20 (Quantity not on file) Pain Mgmt/Stimulato r Hip AXONICS AXONICS NEUROSTIMULAT OR-F15 MODEL 4101 4101 / [id number] Description:1.5T AND 3T MUST PACE IMPEDENCE CHECK [...] 5:23 AM EDT 06/07/2020 9:51 AM EDT [facility] Historical Provider PATHOLOGY/CYTOLOGY OLIVE HERRERA Final Result [facility] [address] [phone] * CT chest for pulmonary embolus (05/06/2019 [...] agree with the above final transcribed report. Dee Jones MD [facility] ORDERABLES Final Result from Last 3 Months or Most Recently Relevant to Health Maintenance Insurance [facility] Care Teams Clock Maker Relationship Specialty Start Date End Date Tanna Finch, OMAR [address] [place] [phone] PCP - General Nurse Practitioner 11/04/24
--- OUTSIDE RECORDS SUMMARY | 2025-09-22 10:04 | XMS_ITS | Patient Health Record ---
Author Organization [facility] Address [address] [facility] [address] [place] [address] Care Team Providers Care Business Continuity Management Director Name Role Phone Harpreet Castaneda [phone] Allergies Allergen (clinical drug ingredient) Drug/Non Drug Allergy documented on EMR Reaction Allergy Type Onset Date Status diphenhydramine Benadryl Unknown Drug Allergy A ctive Tetanus Immune Globulin Unknown Drug Allergy Active meclizine Meclizine anxiety/ nerve pain Drug Allergy Active Reason For Referral No Information Medications Medication SIG (Take, Route, Frequency, Duration) Notes Start Date End Date Status lamoTRIgine 200 MG 1 tablet Orally Once a day 06/13/2025 Active QUEtiapine Fumarate 50 MG 1 tablet at be dtime Orally Once a day 06/13/2025 Active Nurtec 75 MG 1 tablet on the tongue and allow to dissolve Orally; Duration: 30 days As needed Active Aspirin 81 81 MG 1 tablet Orally Once a day 06/13/2025 Active Emgality 120 MG/ML 1 ml Subcutaneous; Duration: 30 day(s) Active Methocarbamol 500 MG 1 tablets Orally every 6 hrs As needed 06/13/2025 Active ZyrTEC Allergy 10 MG 1 tablet Orally Onc e a day; Duration: 30 day(s) Active Desvenlafaxine ER 50 MG 1 tablet Orally Once a day 06/13/2025 Active Furosemide 20 MG 1 tablet Orally Once a day 06/13/2025 Active Carvedilol 12.5 MG 1 tablet with food Orally Twice a day Active Dexlansoprazole 60 MG 1 capsule 1/2 to 1 hour before morning meal Orally Once a day 06/13/2025 Active Baclofen 10 MG 1 tablet Orally four times a day Active Cholecalciferol 1.25 MG (37576 UT) 1 capsule Orally 06/13/2025 Active Albuterol Sulfate HFA 108 (90 Base) MCG/ACT 1 puff as needed Inhalation every 4 hrs Not-Arnulfo taylor Ozempic (2 MG/DOSE) 8 MG/3ML as directed Subcutaneous 06/13/2025 Active Spironolactone 50 MG 1 tablet Orally Onc e a day Active Trelegy Ellipta 100-62.5-25 MCG/ACT 1 puff Inhalation Once a day 06/13/2025 Active Atorvastatin Calcium 80 MG 1 tablet Oral ly Once a day 06/13/2025 Active rOPINIRole HCl 2 MG 2 tablet 1 to 3 hour s before bedtime Orally Once a day Active Nystatin - as directed 06/13/2025 Active Linzess 72 MCG 1 capsule at least 3 0 minutes before the first meal of the day on an empty stomach Orally Once a day 06/13/2025 Active Zonisamide 100 MG 1 capsule Orally Thr ee times daily Active Problems Problem Type SNOMED Code ICD Code Onset Dates Problem Status W/U Status Risk Notes Problem 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 Problem Morbid obesity (931274266) Morbid obesity (E66.01) Active confirmed Problem Type 2 diabetes mellitus (38809974) Type 2 diabetes mellitus (E11.9) Active confirmed Problem Hypertension (89269853) HTN (hypertension) (I10) Active confirmed Problem Brain tumor (115085275) Brain tumor (D49.6) Active confirmed Problem Obstructive sleep apnea syndrome (15378298) BRENDA (obstructive sleep apnea) (G47.33) Active confirmed Problem Obese (855758856) Obese (E66.9) Active confirmed Problem Chronic kidney disease stage 2 (508241235) Chronic kidney disease stage 2 (N18.2) Active confirmed Problem Obstructive sleep apnea syndrome (21833284) BRENDA (obstructive sleep apnea) (G47.33) Active confirmed Problem Atonic bladder (732937570) Atonic bladder (N31.2) Active confirmed Vital Signs Heart Rate 81 /min 06/13/2025 Temperature 97.2 degrees Fahrenheit 06/13/2025 Respiratory Rate 20 /min 06/13/2025 Oximetry 97 % 06/13/2025 Blood pressure diastolic 82 mm Hg 06/13/2025 Weight-kg 127.69 kg 06/13/2025 Height 67 in 06/13/2025 Blood pressure systolic 134 mm Hg 06/13/2025 Weight 281.5 lbs 06/13/2025 BMI 44.08 kg/m2 06/13/2025 Encounters Encounter Location Date Provider Diagnosis [facility] [address] [place] [address] 11/22/2024 Harpreet Castaneda Chronic kidney disease stage 2 N18.2 ; Analgesic nephropathy N14.0 ; HTN (hypertension) I10 ; Obese E66.9 ; Type 2 diabetes mellitus E11.9 and BRENDA (obstructive sleep apnea) G47.33 [facility] [address] [place] [address] 06/13/2025 Harpreet Castaneda Chronic kidney disease stage 2 N18.2 ; Analgesic nephropathy N14.0 ; Morbid obesity E66.01 ; BRENDA (obstructive sleep apnea) G47.33 ; HTN (hypertension) I10 and Atonic bladder N31.2 Assessments Encounter Date Diagnosis (ICD Code) Assessment [...] agreed to meet again in 6 months. 06/13/2025 Analgesic nephropathy (ICD-10 - N14.0) I shared today's findings with Frannie and pointed out that by laboratory criteria her kidney function has returned to normal. I did point out however that she has lost some reserve capacity and must avoid exposure to nephrotoxins such as NSAIDs and also avoid dehydration. We reviewed her new medication list which is lengthy. For now have made no changes in her blood pressure medications, carvedilol and spironolactone. I am hopeful that she will be able to lose some weight in the future now that she is on Ozempic. We agreed to meet again at least 1 more time in 6 months. 06/13/2025 Chronic kidney disease stage 2 (ICD-10 - N18.2) I shared today's findings with Frannie and pointed out that by laboratory criteria her kidney function has returned to normal. I did point out however that she has lost some reserve capacity and must avoid exposure to nephrotoxins such as NSAIDs and also avoid dehydration. We reviewed her new medication list which is lengthy. For now have made no changes in her blood pressure medications, carvedilol and spironolactone. I am hopeful that she will be able to lose some weight in the future now that she is on Ozempic. We agreed to meet again at least 1 more time in 6 months. 06/13/2025 Morbid obesity (ICD-10 - E66.01) I shared today's findings with Frannie and pointed out that by laboratory criteria her kidney function has returned to normal. I did point out however that she has lost some reserve capacity and must avoid exposure to nephrotoxins such as NSAIDs and also avoid dehydration. We reviewed her new medication list which is lengthy. For now have made no changes in her blood pressure medications, carvedilol and spironolactone. I am hopeful that she will be able to lose some weight in the future now that she is on Ozempic. We agreed to meet again at least 1 more time in 6 months. 11/22/2024 Analgesic nephropathy (ICD-10 [...] agreed to meet again in 6 months. 06/13/2025 BRENDA (obstructive sleep apnea) (ICD-10 - G47.33) I shared today's findings with Frannie and pointed out that by laboratory criteria her kidney function has returned to normal. I did point out however that she has lost some reserve capacity and must avoid exposure to nephrotoxins such as NSAIDs and also avoid dehydration. We reviewed her new medication list which is lengthy. For now have made no changes in her blood pressure medications, carvedilol and spironolactone. I am hopeful that she will be able to lose some weight in the future now that she is on Ozempic. We agreed to meet again at least 1 more time in 6 months. 11/22/2024 Obese (ICD-10 - [...] agreed to meet again in 6 months. 06/13/2025 HTN (hypertension) (ICD-10 - I10) I shared today's findings with Frannie and pointed out that by laboratory criteria her kidney function has returned to normal. I did point out however that she has lost some reserve capacity and must avoid exposure to nephrotoxins such as NSAIDs and also avoid dehydration. We reviewed her new medication list which is lengthy. For now have made no changes in her blood pressure medications, carvedilol and spironolactone. I am hopeful that she will be able to lose some weight in the future now that she is on Ozempic. We agreed to meet again at least 1 more time in 6 months. 11/22/2024 Type 2 diabetes [...] agreed to meet again in 6 months. 06/13/2025 Atonic bladder (ICD-10 - N31.2) I shared today's findings with Frannie and pointed out that by laboratory criteria her kidney function has returned to normal. I did point out however that she has lost some reserve capacity and must avoid exposure to nephrotoxins such as NSAIDs and also avoid dehydration. We reviewed her new medication list which is lengthy. For now have made no changes in her blood pressure medications, carvedilol and spironolactone. I am hopeful that she will be able to lose some weight in the future now that she is on Ozempic. We agreed to meet again at least 1 more time in 6 months. 11/22/2024 BRENDA (obstructive sleep [...] Test Name Order Date Hemoglobin A1c 11/22/2024 Hemoglobin A1c 06/13/2025 CBC, Platelet with No Differential 06/13 CBC, Platelet with No Differential 11/22 Comp. Metabolic Panel (14) 06/13/2025 Comp. Metabolic Panel (14) 11/22/2024 Urinalysis 11/22/2024 Urinalysis 06/13/2025 CBC WITH DIFF 11/30/2023 CBC WITH DIFF [...] 07/29/2022 Next Appt Details Provider Name:Harpreet Castaneda, 12/14/2025 11:20:00 AM, [address] [facility] [address], [place], [address], Insurance Providers Payer Name Payer Address Payer Phone Subscriber Number Group Number Insured Name Patient Relationship to Insured Coverage Start Date Coverage End Date [employer] [facility] [address] [place] [address] [id number] Frannie Ramsey Self - patient is the insured Medical (General) History Medical History History ICD Code Anemia Avitaminosis B 12 deficiency Carotid artery stenosis CHF 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
--- OUTSIDE RECORDS SUMMARY | 2025-09-22 10:04 | XMS_ITS | Encounter Summary ---
Author Organization [employer] ([place], [place], [place], [place], [place]) Address [address] [place] [address] Care Team Providers Care Senior Grants Officer Name Role Phone Ronaldo Kong MD Primary Care Provider [phone] Tanna Finch APRN Primary Care Provid er Encounter Details Date Type Department Care Team (Late st Contact Info) Description 05/05/2019 Transcribed Document [facility] Family Medicine [address] [place] [address] ProviderJorje MD [address] [place] [id number] Social History Tobacco Use Types Packs/Day Years Used Date Smoking Tobacco: Never Assessed Comments Unknown Sex and Gender Information Value Date Recorded Sex Assigned at Female 04/17/2022 4:47 PM CDT Legal Sex Female 3:02 PM CDT Gender Identity Female 04/17/2022 4:47 PM CDT Sexual Orientation Not on file documented as of this encounter Miscellaneous Notes * [employer] Conversion Note - Historical ProviderMD - 05/05/2019 2:37 PM CDT DATE OF SERVICE: 05/05/2019 SLEEP MEDICINE FOLLOWUP REFERRING PROVIDER: Lino Solis. PSYCHIATRIST: Haleigh Stahl. EPILEPTOLOGIST: Dr. Schultz. PRIMARY CARE DOCTOR: Ronaldo Kong MD HISTORY: Patient returns to follow up her split night sleep study that was done 02/09/2019. This revealed severe sleep apnea with an index of 36 events per hour with a minimum oxygen saturation of 87%. The titration portion of the study showed a good response to BiPAP at 14/8. We then ordered auto BiPAP. Download reveals usage 30 of the last 30 days, over 4 hours on 73% of days, average 4 hours 45 minutes. The 90% IPAP is 17.1 cm. Time in large leak is 2 minutes and the AHI is 0.9. She reports that she feels much better. Her Fosters score is 4/24. Insomnia--the patient reports she is still having a lot of trouble getting to sleep and she is working on that with her psychiatrist. She says this is clearly related to her mood problems. PHYSICAL EXAMINATION: VITAL SIGNS: Weight 290. Blood pressure 128/78, pulse 97, oxygen saturation 97%. GENERAL: She is awake, alert, cooperative. She was mildly anxious. CRANIAL NERVES: Speech clear. Eye movements conjugate. Hearing intact. Facial movements symmetric. MOTOR: Arm movements normal. GAIT: Normal. IMPRESSION: Obstructive sleep apnea--patient has severe sleep apnea significantly worse than when compared to her previous sleep study in 2017. She had a good response to BiPAP during the titration portion of her split night study. She is now on auto BiPAP and has adequate compliance and has good control of sleep apnea. She does feel better and says she will be happy to continue using the machine. Insomnia--this continues to be an issue. PLAN: 1. Continue auto BiPAP with IPAP maximum 18 and EPAP minimum 6. 2. Annual orders for supplies was sent to [facility]. 3. I will see her back in one year. Paresh Jaime M.D. Dict: 05/05/2019 14:37:41 Trans: 05/05/2019 23:25:15 CC1: Paresh Jaime M.D. CC2: Ronaldo Kong M.D. CC3: Lino Solis CC4: Haleigh Stahl CC5: Dr. Schultz documented in this encounter Plan of Treatment Upcoming Encounters Date Type Department Care Team (Late st Contact Info) Description 12/26/2025 10:00 AM EDT Office Visit [facility] Neurology - [address] [place] [address] Lino Solis MD [address] [facility] [address] [place] [address] documented as of this encounter Visit Diagnoses Not on filedocumented in this encounter Care Teams Senior Grants Officer Relationship Specialty Start Date End Date Dilan, Ronaldo Yates MD [address] [place] [address] [place] [address] PCP - General General Internal Medicine 12/24/2210/19 Tanna Finch APRN [address] [place] [phone] PCP - General Nurse Practitioner 11/04/24 documented as of this encounter
--- OUTSIDE RECORDS SUMMARY | 2025-09-22 10:04 | XMS_ITS | Encounter Summary ---
Author Organization [employer] ([place], [place], [place], [place], [place]) Address [address] [place] [address] Care Team Providers Care Psychology Assistant Name Role Phone Ronaldo Kong MD Primary Care Provider [phone] Tanna Finch APRN Primary Care Provid er Encounter Details Date Type Department Care Team (Late st Contact Info) Description 06/11/2020 Transcribed Document [facility] [place] [facility] [place] [address] ProviderJorje MD [address] [place] [address] Social History Tobacco Use Types Packs/Day [...] Cerner Conversion Note - Jorje ProviderMD - 06/11/2020 3:08 PM CDT UM Authorization Entered On: 06/11/2020 15:13 EDT Performed On: 06/11/2020 15:08 EDT by WU HARMAN RN Primary Insurance Authorization Authorization and Policy Numbers : Insurance 1 Health Plan: [place] Medicaid Policy Number: [id number] Authorization Number: Insurance Primary Name : [place] Medicaid [id number] Authorization Status-Primary : Denial - admission Reference Number-Primary : [id number] Authorized Service Begin Date-Primary : 06/06/2020 EDT Authorization Comments-Primary : Called Dr. Royal office and spoke with Deena- She stated that Dr. Royal completed P2P this morning and was overturned. Availity has not been updated yet will follow. Historical Authorization Comments-Primary : Comment 1: Called Dr. Royal office-spoke with Irene she stated she would discuss case with Dr. Royal for completing P2P. Informed her I would fax the denial paperwork. Irene stated she would put on Dr. Royal desk for Thursday. (WU HARMAN RN 06/08/2020 14:25) Comment 2: [place] Medicaid denied per fax for inpt (MARU KHAN, DANIELA-Utilization Review 06/08/2020 11:28) Comment 3: Uploaded clinicals to [employer] via [employer]. (AGUILAR KERR, DANIELA-Utilization Review 06/07/2020 11:54) WU HARMAN RN - 06/11/2020 15:08 EDT Electronically signed by Jordon [facility] Conversion Motor Tune Up Specialist Cerner at 02/03/2023 4:43 PM CDT documented in this encounter Plan of Treatment Upcoming Encounters Date Type Department Care Team (Late st Contact Info) Description 12/26/2025 10:00 AM EDT Office Visit [facility] Neurology - [address] [place] [phone] Lino Solis MD [address] [place] [address] [address] [place] [address] documented as of this encounter Visit Diagnoses Not on filedocumented in this encounter Care Teams Psychology Assistant Relationship Specialty Start Date End Date Ronaldo Kong MD [address] [place] [address] [place] [address] PCP - General General Internal Medicine 12/24/2210/19 Tanna Finch APRN [address] [place] [phone] PCP - General Nurse Practitioner 11/04/24 documented as of this encounter
--- OUTSIDE RECORDS SUMMARY | 2025-09-22 10:04 | XMS_ITS | Encounter Summary ---
Author Organization [employer] ([place], [place], [place], [place], [place]) Address [address] [place] [address] Care Team Providers Care Welding Equipment Repairer Supervisor Name Role Phone Ronaldo Kong MD Primary Care Provider [phone] Tanna Finch APRN Primary Care Provid er Encounter Details Date Type Department Care Team (Late st Contact Info) Description 11/01/2021 Transcribed Document [facility] [place] Family Medicine [facility] [place] [address] ProviderJorje MD [address] [place] [address] Social History Tobacco Use Types Packs/Day [...] Cerner Conversion Note - Historical ProviderMD - 11/01/2021 3:29 PM MOLDING LINE ASSISTANT PAT Adult Entered On: 11/01/2021 15:37 EST Performed On: 11/01/2021 15:29 EST by KISHAN SORIA RN Vital Measurements Temperature Source : Temporal artery scanning Temperature Mode : Fahrenheit Temperature, Fahrenheit : 97.2 Deg F Clinical Temperature, C : 36.2 Deg C Pulse Method : Palpation Pulse Source : Radial, Left Heart Rate, Apical : 82 bpm Pulse Rhythm : Regular Respiratory Rate : 20 Breaths/Min Blood Pressure Location : Arm, left upper Blood Pressure Source : Non-Invasive BP Device Blood Pressure Position : Sitting Systolic Blood Pressure : 153 mmHg (HI) Diastolic Blood Pressure : 75 mmHg Oxygen Saturation : 98 % Oxygen Therapy Mode : Room air EDYTA AMADOR RN - 11/04/2021 13:12 EST Height and Weight, Clinical Dosing Height Source : Measured Height Entry Format : Gratis Height, Feet : 5 ft(Converted to: 152 cm, 60 Inch) Height, Inches : 7 Inch(Converted to: 0 ft 7 Inch, 17.78 cm) Clinical Height : 170.18 cm Weight Source : Standing scale Weight Entry Format : Gratis Clinical Dosing Weight : 130.91 kg Weight, Pounds : 288 lb Body Surface Area (BSA) : 2.36 m2 Body Mass Index : 45.2 kg/m2 (>HHI) [place] Body Weight : 61 kg EDYTA AMADOR RN - 11/04/2021 13:12 EST Health Histories Smoking Status : 4 or less cigarettes(less than 1/4 pack)/day in last 30 days Smokeless Tobacco Status : Never Desires Tobacco Cessation Medication : No Reason for No Tobacco Cessation Medication : Refuses FDA approved medications Implant/Device Type, Wind Turbine Technician and Model : neck fusion; R and L hip replacements, total left knee replacement KISHAN SORIA RN - 11/01/2021 15:29 EST Social History (As Of: 11/01/2021 15:37:20 EST) Tobacco: Smoking Status Current every day smoker. [...] 05/18/2019 10:14:59 EDT by RENETTA CATHERINE RN) 4 or less cigarettes(less than 1/4 pack)/day in last 30 days Smoking Status. Never Smokeless Tobacco Status. Years of Use: 30. Packs/Tins Daily: 1. Last Used: down to 4 cigs / day;using patches and trying to quit Oct 2021. (Last Updated: 11/01/2021 15:31:11 EST by KISHAN SORIA RN) Alcohol: Alcohol Use History No. (Last Updated: 10/20/2017 12:24:18 EST by PAO ONEAL RN) Alcohol Use History No. (Last Updated: 11/01/2021 15:31:16 EST by KISHAN SORIA RN) Substance Abuse: Drug Use Hx: No. Use in Last 12 Months: No. (Last Updated: 10/20/2017 12:24:23 EST by PAO ONEAL RN) Drug Use Hx: No. Use in Last 12 Months: No. (Last Updated: 11/01/2021 15:31:24 EST by KISHAN SORIA RN) Nutrition/Health: Caffeine intake amount: 3 cups a day. (Last Updated: 10/20/2017 12:24:55 EST by PAO ONEAL RN) Infectious Disease History Does patient have symptoms of COVID-19? : No Has the Patient Been Tested for COVID-19 in the last 14 days? : No, Patient stated Does the Patient state known exposure to a COVID-19 positive case in the last 14 days? : No Does Patient want a COVID-19 Vaccine? : Yes EDYTA AMADOR RN - 11/04/2021 13:12 EST Infectious Disease Risk Screening Grid Cough < 2 wks of unknown origin : NO Cough > 2 weeks : NO Blood in Sputum : NO Fever or self-reported Fever : NO Rash of unknown origin : NO Headache : NO Stiff neck : NO Night Sweats : NO Unexplained Weight Loss : NO Diarrhea (3 episode per day) : NO EDYTA AMADOR RN - 11/04/2021 13:12 EST INF Disease TB Screening Calc : 0 EDYTA AMADOR RN - 11/04/2021 13:12 EST Patient Vaccinated for COVID-19 : Partially vaccinated or need booster Physical contact outside [place] in the last 30 days : No Hospitalized in Foreign Country : No Infectious Disease History : Chicken pox/Shingles, Mononucleosis, Other: arevalo-Ronak syndrome age13 INF Disease Recent Travel Calc : 0 KISHAN SORIA RN - 11/01/2021 15:29 EST COVID19 PreProcedure Screening Is this an Emergent or Add on Procedure? : No KISHAN SORIA RN - 11/01/2021 15:29 EST Anesthesia/Transfusion History Family History of Anesthesia Reaction : No prior transfusion(s) Transfusion History : Prior anesthesia without reaction Family History of Anesthesia Reaction : None KISHAN SORIA RN - 11/01/2021 15:29 EST Functional Assessment Functional ADL Evaluation Index EBN Bathing : Independent (2) Dressing : Independent (2) Toileting : Independent (2) Transferring Bed or Chair : Independent (2) Continence : Independent (2) Feeding : Independent (2) KISHAN SORIA RN - 11/01/2021 15:29 EST ADL Index Score : 12 KISHAN SORIA RN - 11/01/2021 15:29 EST Advance Directive Patient has Advance Directive *Q : No, patient refuses Advance Directive information KISHAN SORIA RN - 11/01/2021 15:29 EST Spiritual/Cultural Needs Any Spiritual/Cultural Needs or Requests : Yes Spiritual/Cultural Needs Comment : prayer on DOS 11/22/2021 Spiritual/Cultural Needs Comment : prayer on DOS 11/22/2021 KISHAN SORIA RN - 11/01/2021 15:29 EST [place] Suicide Severity Rating Scale (C-SSRS) CSSRS Lifetime Suicide Behavior : No Suicide Severity Rating Score : 0 Suicide Severity Rating : No Additional Care Required at this time EDYTA AMADOR RN - 11/04/2021 13:12 EST CSSRS Past Month Wish to be : No CSSRS Past Month Suicidal Thoughts : No KISHAN SORIA RN - 11/01/2021 15:29 EST Psychosocial History Currently in Unsafe Situation : No KISHAN SORIA RN - 11/01/2021 15:29 EST General Info Preferred Name : Frannie Legal Guardian : No Contact Password : Sukhdev Panchal Family/Rep/Phys Notified of Admit : No Emergency Contact #1 : Becca Rosario Emergency Contact #1 cell Emergency Contact #1 Relationship : sister in law Emergency Contact #2 : Mary Rosario Emergency Contact #2 Emergency Contact #2 Relationship : Mother Chief Complaint : neck and back pain Information Obtained From : Patient Primary Language : Cymraes Communication Barrier : None Plumbing Installer Needed : No KISHAN SORIA RN - 11/01/2021 15:29 EST Bernard Scale Bernard Sensory Perception : Slightly limited Bernard Moisture : Rarely moist Bernard Activity : Walks occasionally Bernard Mobility : Slightly limited Bernard Nutrition : Excellent Bernard Friction and Shear : Potential problem Bernard Score : 19 KISHAN SORIA RN - 11/01/2021 15:29 EST Sleep Apnea Risk Assmt BiPAP/CPAP Ordered for Home Use : Yes Hx of Obstructive Sleep Apnea Diagnosis : Yes BiPAP/CPAP Used at Home : Yes Age over 50 Years Old : Yes Gender Male : No Sleep Apnea Risk Comment : uses Bipap at night - no home oxygen KISHAN SORIA RN - 11/01/2021 15:29 EST documented in this encounter Plan of Treatment Upcoming Encounters Date Type Department Care Team (Late st Contact Info) Description 12/26/2025 10:00 AM EDT Office Visit [facility] Neurology - [address] [place] [address] [place] [phone] Lino Solis MD [address] [place] [address] [address] [place] [address] documented as of this encounter Visit Diagnoses Not on filedocumented in this encounter Care Teams Welding Equipment Repairer Supervisor Relationship Specialty Start Date End Date Ronaldo Kong MD [address] [place] [address] [place] [address] PCP - General General Internal Medicine 12/24/2210/19 Tanna Finch, OMAR [address] [place] [phone] PCP - General Nurse Practitioner 11/04/24 documented as of this encounter
--- OUTSIDE RECORDS SUMMARY | 2025-09-22 10:04 | XMS_ITS | Encounter Summary ---
Author Organization [employer] ([place], [place], [place], [place], [place]) Address [address] [place] [address] Care Team Providers Care Gas Derrick Operator Name Role Phone Ronaldo Kong MD Primary Care Provider [phone] Tanna Finch APRN Primary Care Provid er Encounter Details Date Type Department Care Team (Late st Contact Info) Description 06/12/2020 Transcribed Document [facility] [place] [facility] [place] [address] ProviderJorje MD [address] [place] [address] Social History Tobacco Use Types Packs/Day [...] Cerner Conversion Note - Jorje ProviderMD - 06/12/2020 9:01 AM CDT UM Authorization Entered On: 06/12/2020 9:01 EDT Performed On: 06/12/2020 9:01 EDT by WU HARMAN RN Primary Insurance Authorization Authorization and Policy Numbers : Insurance 1 Health Plan: [place] Medicaid Policy Number: [id number] Authorization Number: Insurance Primary Name : [place] Medicaid [id number] Authorization Status-Primary : Denial - admission Reference Number-Primary : [id number] Authorized Service Begin Date-Primary : 06/06/2020 EDT Authorization Comments-Primary : Left VM for Wilmer at [employer] inquiring if overturned. Historical Authorization Comments-Primary : Comment 1: Called Dr. Royal office and spoke with Deena- She stated that Dr. Royal completed P2P this morning and was overturned. Availity has not been updated yet will follow. (WU HARMAN RN 06/11/2020 15:08) Comment 2: Called Dr. Royal office-spoke with Irene she stated she would discuss case with Dr. Royal for completing P2P. Informed her I would fax the denial paperwork. Irene stated she would put on Dr. Royal desk for Thursday. (WU HARMAN RN 06/08/2020 14:25) Comment 3: [employer] denied per fax for inpt (MARU KHAN, RN-Utilization Review 06/08/2020 11:28) Comment 4: Uploaded clinicals to [employer] via [employer]. (AGUILAR KERR, DANIELA-Utilization Review 06/07/2020 11:54) WU HARMAN RN - 06/12/2020 9:01 EDT documented in this encounter Plan of Treatment Upcoming Encounters Date Type Department Care Team (Late st Contact Info) Description 12/26/2025 10:00 AM EDT Office Visit [facility] Neurology - [address] [place] [phone] Lino Solis MD [address] [place] [address] [address] [place] [address] documented as of this encounter Visit Diagnoses Not on filedocumented in this encounter Care Teams Gas Derrick Operator Relationship Specialty Start Date End Date Ronaldo Kong MD [address] [place] [address] [place] M[place]ER [address] PCP - General General Internal Medicine 12/24/2210/19 Tanna Finch, OMAR [address] [place] [phone] PCP - General Nurse Practitioner 11/04/24 documented as of this encounter
--- OUTSIDE RECORDS SUMMARY | 2025-09-22 10:04 | XMS_ITS | Encounter Summary ---
Author Organization [employer] ([place], [place], [place], [place], [place]) Address [address] [place] [address] Care Team Providers Care Filter Tank Operator Name Role Phone Ronaldo Kong MD Primary Care Provider [phone] Tanna Finch APRN Primary Care Provid er Encounter Details Date Type Department Care Team (Late st Contact Info) Description 08/28/2020 Transcribed Document [facility] Pulm & Critical Care Medicine [address] [place] [address] [phone] Anthony Lechuga MD [address] [facility] [address] [place] [address] Social History Tobacco Use Types Packs/Day Years Used Date Smoking Tobacco: Never Assessed Comments Unknown Sex and Gender Information Value Date Recorded Sex Assigned at Female 04/17/2022 4:47 PM CDT Legal Sex Female 3:02 PM CDT Gender Identity Female 04/17/2022 4:47 PM CDT Sexual Orientation Not on file documented as of this encounter Miscellaneous Notes * Cerner Conversion Note - Anthony Lechuga MD - 08/28/2020 2:44 PM EST DATE OF SERVICE: 08/28/2020 PATIENT DATA: 50 years old, 67 inches in height, 292 pounds, BMI 45.9, female. The patient had pulmonary function tests, and the flow volume loop meets ATS criteria. SPIROMETRY DATA: Post bronchodilator: FEV1 is 1.96 L (63%), FEV1/FVC ratio is 76, FVC is 2.58 L (66%). There is a post bronchodilator improvement on FEV1 of 14% and on FVC of 11%. LUNG VOLUMES: (nitrogen method). Total lung capacity is 4.22 L (76%), FRC is 1.13 L (55%), RV is 1.57 L (79%). DLCO is 18.0 (57%), however, it does correct itself for lung volumes. IMPRESSION: 1. There is a moderate restrictive lung component. 2. No evidence of airflow obstruction as defined by FEV1/FVC ratio. 3. There is some post bronchodilator improvement on FEV1 and FVC suggestive of a reversible bronchospastic component. Clinical correlation is advised. 4. Isolated reduction in DLCO, but corrects itself for lung volumes. Overall, the patient's pulmonary function test is compatible with a restrictive lung component which could be possible pseudorestriction due to body habitus in view of her normal RV. Clinical correlation is advised. SIX-MINUTE WALK TEST: The patient had a 6-minute walk test according to ATS standard and ambulated a total of 900 feet (275 meters). The baseline room air saturation was 97%, blood pressure 130/89, heart rate is 85. The patient completed a 6-minute walk test on room air without evidence of desaturation. The 2-minute resting part and the 4-minute resting part, the saturations were 97% respectively. IMPRESSION: Normal 6-minute walk test without evidence of desaturation. Clinical correlation is advised. /[id number] Anthony Lechuga MD EAC/AQ / EAC / MODL /[id number] documented in this encounter Plan of Treatment Upcoming Encounters Date Type Department Care Team (Late st Contact Info) Description 12/26/2025 10:00 AM EDT Office Visit [facility] Neurology - [address] [facility] [address] [place] [phone] Lino Solis MD [address] [facility] [address] [place] [address] documented as of this encounter Visit Diagnoses Not on filedocumented in this encounter Care Teams Filter Tank Operator Relationship Specialty Start Date End Date Ronaldo Kong MD [address] [place] [address] PCP - General General Internal Medicine 12/24/2210/19 Tanna Finch APRN [address] [place] [phone] PCP - General Nurse Practitioner 11/04/24 documented as of this encounter
--- OUTSIDE RECORDS SUMMARY | 2025-09-22 10:04 | XMS_ITS | Encounter Summary ---
Author Organization [facility] Address [address] [place] [address] Care Team Providers Care Greenhouse Specialist Name Role Phone System, Provider Not In Primary Care Provider Un available Encounter Details Date Type Department Care Team (Late Contact Info) Description 10/02/2022 Telephone [facility] PRIMARY CARE [address] [place] [address] [place] [phone] Ronaldo Kong MD [address] [place] [address] [place] [address] Social History Tobacco Use Types Packs/Day [...] Description 11/13/2025 11:00 AM EST Office Visit [facility] CARDIOLOGY [address] [place] [phone] Daphney Hall MD [address] [place] [address] [place] [address] 11/13/2025 11:00 AM EST Clinical Support No Requirements [facility] CARDIOLOGY [address] [place] [address] [place] [phone] 12/20/2025 1:30 PM EST Office Visit [facility] CARDIOLOGY [address] [place] [address] [place] [phone] Daphney Hall MD [address] [place] [address] [place] [address] 12/20/2025 1:30 PM EST Clinical Support No Requirements [facility] CARDIOLOGY [address] [place] [address] [place] [phone] documented as of this encounter Visit Diagnoses Not on filedocumented in this encounter Additional Health Concerns Assessment Noted Time PHQ-2 Depression Total Score: 3 05/27/20 22 12:00 PM EDT documented as of this encounter Care Teams Greenhouse Specialist Relationship Specialty Start Date End Date System, [place] [address] PCP - General 02/14/25 documented as of this encounter
--- OUTSIDE RECORDS SUMMARY | 2025-09-22 10:04 | XMS_ITS | Encounter Summary ---
Author Organization [employer] ([place], [place], [place], [place], [place]) Address [address] [place] [address] Care Team Providers Care Tire Builder Heavy Service Name Role Phone Ronaldo Kong MD Primary Care Provider [phone] Tanna Finch APRN Primary Care Provid er Encounter Details Date Type Department Care Team (Late st Contact Info) Description 06/12/2020 Transcribed Document [facility] [place] Family [place] [address] ProviderJorje MD [address] [place] [address] Social History Tobacco Use Types Packs/Day [...] Conversion Note - Jorje ProviderMD - 06/12/2020 4:05 PM CDT UM Authorization Entered On: 06/12/2020 16:06 EDT Performed On: 06/12/2020 16:05 EDT by WU HARMAN RN Primary Insurance Authorization Authorization and Policy Numbers : Insurance 1 Health Plan: [place] Medicaid Policy Number: [id number] Authorization Number: Insurance Primary Name : [place] Medicaid [id number] Authorization Status-Primary : Admit approved Reference Number-Primary : [id number] Number of Days Authorized-Primary : 2 Day(s) Authorized Service Begin Date-Primary : 06/06/2020 EDT Authorized Service End Date-Primary : 06/08/2020 EDT Authorization Comments-Primary : Per Wilmer approved IP for 2 days after P2P completed. Historical Authorization Comments-Primary : Comment 1: Left VM for Wilmer at [employer] inquiring if overturned. (WU HARMAN RN 06/12/2020 09:01) Comment 2: Called Dr. Royal office and spoke with Deena- She stated that Dr. Royal completed P2P this morning and was overturned. Availity has not been updated yet will follow. (WU HARMAN RN 06/11/2020 15:08) Comment 3: Called Dr. Royal office-spoke with Irene she stated she would discuss case with Dr. Royal for completing P2P. Informed her I would fax the denial paperwork. Irene stated she would put on Dr. Royal desk for Thursday. (WU HARMAN RN 06/08/2020 14:25) Comment 4: [employer] denied per fax for inpt (MARU KHAN RN-Utilization Review 06/08/2020 11:28) Comment 5: Uploaded clinicals to [employer] via [employer]. (AGUILAR KERR, RN-Utilization Review 06/07/2020 11:54) WU HARMAN RN - 06/12/2020 16:05 EDT documented in this encounter Plan of Treatment Upcoming Encounters Date Type Department Care Team (Late st Contact Info) Description 12/26/2025 10:00 AM EDT Office Visit [facility] Neurology - [address] [place] [address] [place] [phone] Lino Solis MD [address] [place] [address] [address] [place] [address] documented as of this encounter Visit Diagnoses Not on filedocumented in this encounter Care Teams Tire Builder Heavy Service Relationship Specialty Start Date End Date Ronaldo Kong MD [address] [place] [address], [place] [address] PCP - General General Internal Medicine 12/24/2210/19 Tanna Finch APRN [address] [place] [phone] PCP - General Nurse Practitioner 11/04/24 documented as of this encounter
--- OUTSIDE RECORDS SUMMARY | 2025-09-22 10:04 | XMS_ITS | Encounter Summary ---
Author Organization [employer] ([place], [place], [place], [place], [place]) Address [address] [place] [address] Care Team Providers Care Icu Clerk Name Role Phone Ronaldo Kong MD Primary Care Provider [phone] Tanna Finch APRN Primary Care Provid er Encounter Details Date Type Department Care Team (Late st Contact Info) Description 02/01/2019 Transcribed Document [facility] [place] Family Medicine [address] [place] [address] ProviderJorje MD [address] [place] [id number] Social History Tobacco Use Types Packs/Day Years Used Date Smoking Tobacco: Never Assessed Comments Unknown Sex and Gender Information Value Date Recorded Sex Assigned at Female 04/17/2022 4:47 PM CDT Legal Sex Female 3:02 PM CDT Gender Identity Female 04/17/2022 4:47 PM CDT Sexual Orientation Not on file documented as of this encounter Miscellaneous Notes * Cerner Conversion Note - Jorje ProviderMD - 02/01/2019 10:17 AM CDT DATE OF SERVICE: 02/01/2019 SLEEP MEDICINE REEVALUATION REFERRING PROVIDER: Lino Solis M.D. PSYCHIATRIST: Haleigh Stahl MD EPILEPTOLOGIST: Dr. Schultz. PRIMARY CARE DOCTOR: Ronaldo Kong MD PROBLEM LIST: 1. Obstructive sleep apnea. a. Initial sleep study on 11/07/2016--AHI 16.5 with minimum oxygen saturation 82%. b. Titration study in March 2017--good response to BiPAP at 10/6. 2. Overweight. 3. Fibromyalgia. 4. Atypical spells--possible epilepsy. 5. History of neck surgery twice. 6. History of insomnia. 7. History of anemia. 8. GERD. 9. History of severe depression and anxiety, status post hospitalization at [facility]. 10. Status post benign hysterectomy, two hip replacements, tonsillectomy. 11. History of migraines. 12. Tobacco usage--ongoing. MEDICATIONS: 1. Potassium. 2. Venlafaxine. 3. Hydroxyzine. 4. Atorvastatin. 5. Lisinopril/HCTZ. 6. Bupropion. 7. Zonisamide. 8. Trazodone. 9. Gabapentin. 10. Pantoprazole. 11. Carisoprodol. 12. Folic acid. 13. Levothyroxine. 14. Aripiprazole. 15. Vitamin D. 16. Magnesium gluconate. 17. Rizatriptan. HISTORY: The patient is a 48-year-old, who is here for me to assume care of sleep apnea. She had been followed at the [facility] for this. She had a sleep study here at [facility] in 2017 revealing mild to moderate sleep apnea. She subsequently had a titration study that showed a good response to BiPAP. She was originally tried on auto-PAP and was unable to tolerate using the machine. She was then switched to a BiPAP device. She says she likes that a lot better and did feel better, but she was unable to achieve adequate compliance. She reports that after two or three months the machine was removed from the home because of inadequate compliance and she has been untreated since then. Her [place] score is 18/24. She says that there are multiple reasons for her drowsiness. She goes to bed at 9 p.m. and takes 45-60 minutes to fall asleep. She says it takes a while to fall asleep because she has been napping off and on all day long. She wakes up four or five times a night for about 30 minutes at a time. She usually goes to the bathroom and then gets to drink water, takes water, go back to sleep. She gets up at 6:30. She sleeps an average of at least 2 hours a day. We know she snores every night. We do not know if she is currently holding her breath, but she does wake up gasping and says this is a frequent problem that is more frequent now than it was when she had the sleep study. She wakes up with severe headaches, perhaps three days a month, but she has a same headaches come on during the day and these have been described as migraines. She wakes up with a sore throat and dry mouth. She does fall asleep easily during the day, but denies paralysis, hallucinations or cataplexy. She has previously been diagnosed with restless legs syndrome. She lays in bed with an urgent need to move her legs. PAST MEDICAL HISTORY: Significant for the problem list above. MEDICATIONS: Are listed above. ALLERGIES: She has no known medication allergies. PAST SURGICAL HISTORY: Surgeries are listed above. She is in process of being evaluated for possible epilepsy. She has been started on zonisamide by Dr. Schultz, but he remains uncertain of her underlying diagnosis and there is discussion that she may have prolonged inpatient EEG monitoring in the near future. This has not been set up as yet. SOCIAL HISTORY: She smokes one pack a day and has for 25 years. She denies alcohol usage. She has four soft drinks with caffeine per day. FAMILY HISTORY: Significant for heart disease, hypertension, obesity, depression, anxiety, and a brother who has sleep apnea. REVIEW OF SYSTEMS: Positive in numerous areas and I would refer the intake sheet for details. She is and lives alone. She is disabled. PHYSICAL EXAMINATION: VITAL SIGNS: Height 67 inches, weight 276, BMI 43. Neck size 15.8 inches. Respiratory rate 18, oxygen saturation 98%, blood pressure 126/70, pulse 105. GENERAL: Patient was pleasant, alert and cooperative. Mood did not appear depressed. HEENT: Retrognathia is not present. Pupils equal and reactive to light. Facial movements symmetric. The tongue base was mildly elevated with a slight decrease in the posterior pharyngeal space. I did not see tonsillar hypertrophy. Dentition was normal. Nasal airflow was mildly decreased on the right. The septum appeared to be normal. NECK: No carotid bruits. CHEST/LUNGS: Breath sounds present bilaterally without wheezes. CARDIOVASCULAR: Regular rate and rhythm without murmurs. ABDOMEN: No pain noted. EXTREMITIES: No edema in the upper extremities. GAIT: Normal. IMPRESSION: Obstructive sleep apnea--patient was diagnosed with mild to moderate sleep apnea in early 2016. She failed a trial of auto-PAP and was unable to tolerate it. She was then switched to BiPAP and had a titration study revealing good response at 10/6. She was tried on auto-BiPAP, but was unable to document good compliance and the machine was taken away. Since then, she has gotten worse. She is waking up smothering. She is exhausted during the day with an Fairmont score of 18/24. She reports that she did feel better when she uses BiPAP and would like to give it a try again. It is likely that her sleep apnea is worse now than it was three years ago, because she has gained almost 30 pounds. She has noticed that her nocturnal asthma, her recurrent bronchitis and her waking up gasping are all worse in the last year or so. There was little doubt that she has sleep apnea. We will have to do a sleep study because of insurance criteria. PLAN: We will do a split night sleep study. We will start without the machine and after we have been able to document 20 respiratory events, then we will move on to do a titration. We will start with BiPAP 10/6. After the sleep study, we will start her on auto-BiPAP with an IPAP maximum that will depend on results of the sleep study and an EPAP minimum of 6. Weight loss recommended. I will see her back to follow up the study. ADDENDUM: We did receive a copy of a download from her machine as of September 26, 2017. This revealed usage of 13 of 90 days for an average of 3 hours 21 minutes. The AHI was 4.9. The mean IPAP was 12.3 with a maximum of 13.4. Air leakage was acceptable. Her auto BiPAP at that time had an IPAP maximum of 14 and an EPAP minimum of 4. Paresh Jaime M.D. Dict: 02/01/2019 10:17:10 Trans: 02/01/2019 17:03:43 CC1: Paresh Jaime M.D. CC2: Lino Solis M.D. CC3: Haleigh Stahl MD CC4: Cecilio Schultz MD CC5: Ronaldo Kong MD Electronically signed by Jordon [facility] Conversion Seafood Preparer Cerner at 02/03/2023 4:44 PM CDT documented in this encounter Plan of Treatment Upcoming Encounters Date Type Department Care Team (Late st Contact Info) Description 12/26/2025 10:00 AM EDT Office Visit [facility] Neurology - [address] [facility] [address] [place] [address] [place] [address] [place] [address] [address] [place], [place] [id number] documented as of this encounter Visit Diagnoses Not on filedocumented in this encounter Care Teams Icu Clerk Relationship Specialty Start Date End Date Ronaldo Kong MD [address] [place] [address] PCP - General General Internal Medicine 12/24/2210/19 Tanna Finch, OMAR [address] [place] [phone] PCP - General Nurse Practitioner 11/04/24 documented as of this encounter
--- OUTSIDE RECORDS SUMMARY | 2025-09-22 10:04 | XMS_ITS | Encounter Summary ---
Author Organization [employer] ([place], [place], [place], [place], [place]) Address [address] [place] [address] Care Team Providers Care Atomic Fuel Assembler Name Role Phone Ronaldo Kong MD Primary Care Provider [phone] Tanna Finch APRN Primary Care Provid er Encounter Details Date Type Department Care Team (Late st Contact Info) Description 05/06/2019 Transcribed Document [facility] Family Medicine [facility] [place] [address] ProviderJorje MD [address] [place] [address] Social History Tobacco Use Types Packs/Day [...] Conversion Note - Jorje ProviderMD - 05/06/2019 11:17 AM CDT ED Triage Entered On: 05/06/2019 11:26 EDT Performed On: 05/06/2019 11:23 EDT by KATHERYN VALENTIN RN ED Triage Across the Room Triage Date/Time : 05/06/2019 11:23 EDT Chief Complaint : pt having CP onset 4 hrs ago, MSNR, suppose to have cath on 05/18 per Mendiola, no N/V, pain 04/27 , no meds LINE SUPPLY KATHERYN VALENTIN RN - 05/06/2019 11:23 EDT DCP GENERIC CODE Tracking Acuity : 2 - Emergent Tracking Group : [facility] ED KATHERYN VALENTIN RN - 05/06/2019 11:23 EDT Mode of Arrival : Ambulatory Transported to ED by : Private vehicle To Room Via : Wheelchair Accompanied By : Care provider ED Vital Signs : Document Height & Weight : Document ED Allergies : Document ED Reason for Visit : Document Tetanus Immunization : Unknown Tried to Harm Yourself in the Past? : No Thoughts of Harming/Killing Yourself : No KATHERYN VALENTIN RN - 05/06/2019 11:23 EDT Infectious Disease History Infectious Disease History : Chicken pox/Shingles, Mononucleosis Fever/Chills Last 48 Hours : No Travel To Regions with Travel Advisories : No Travel Outside [place] Within Last 30 Days : No Contact With Traveler to Advisory Region : No Tuberculosis Symptoms : None KATHERYN VALENTIN RN - 05/06/2019 11:23 EDT Vital Signs ED Temperature Source : Oral Temperature Mode : Fahrenheit Temperature, Fahrenheit : 98.1 Deg F ED Pain : Yes Clinical Temperature, C : 36.7 Deg C Oxygen Therapy Mode : Room air Peripheral Pulse Rate : 87 bpm Respiratory Rate : 16 Breaths/Min Systolic Blood Pressure : 122 mmHg Diastolic Blood Pressure : 79 mmHg Oxygen Saturation : 100 % KATHERYN VALETNIN RN - 05/06/2019 11:23 EDT Allergy (As Of: 05/06/2019 11:26:35 EDT) Allergies (Active) Benadryl Estimated Onset Date: Unspecified ; Created By: PAO ONEAL RN; Reaction Status: Active ; Category: Drug ; Substance: Benadryl ; Type: Allergy ; Updated By: PAO ONEAL RN; Reviewed Date: 05/06/2019 11:24 EDT tetanus immune globulin Estimated Onset Date: Unspecified ; Created By: PAO ONEAL RN; Reaction Status: Active ; Category: Drug ; Substance: tetanus immune globulin ; Type: Allergy ; Updated By: PAO ONEAL RN; Reviewed Date: 05/06/2019 11:24 EDT Diagnosis Control ED (As Of: 05/06/2019 11:26:35 EDT) Problems(Active) Anxiety (SNOMED CT :69883865 ) Name of Problem: Anxiety ; Recorder: PAO ONEAL RN; Confirmation: Confirmed ; Classification: Medical ; Code: [id number] ; Contributor System: PowerChart ; Last Updated: 10/20/2017 12:18 EST ; Life Cycle Date: 10/20/2017 ; Life Cycle Status: Active ; Vocabulary: SNOMED CT Arthritis (SNOMED CT :9719106 ) Name of Problem: Arthritis ; Recorder: PAO ONEAL RN; Confirmation: Confirmed ; Classification: Medical ; Code: 3583677 ; Contributor System: PowerChart ; Last Updated: 10/20/2017 12:22 EST ; Life Cycle Date: 10/20/2017 ; Life Cycle Status: Active ; Vocabulary: SNOMED CT Asthma (SNOMED CT :871227732 ) Name of Problem: Asthma ; Recorder: KIRAN BARNEY PA; Confirmation: Confirmed ; Classification: Medical ; Code: [id number] ; Contributor System: PowerChart ; Last Updated: 10/20/2017 12:02 EST ; Life Cycle Date: 10/20/2017 ; Life Cycle Status: Active ; Vocabulary: SNOMED CT Borderline personality disorder (SNOMED CT :37592490 ) Name of Problem: Borderline personality disorder ; Recorder: PAO ONEAL RN; Confirmation: Confirmed ; Classification: Medical ; Code: 59460136 ; Contributor System: PowerChart ; Last Updated: 10/20/2017 12:20 EST ; Life Cycle Date: 10/20/2017 ; Life Cycle Status: Active ; Vocabulary: SNOMED CT Cornea scar (SNOMED CT :847463653 ) Name of Problem: Cornea scar ; Recorder: PAO ONEAL RN; Confirmation: Confirmed ; Classification: Medical ; Code: 066972842 ; Contributor System: PowerChart ; Last Updated: 10/20/2017 12:19 EST ; Life Cycle Date: 10/20/2017 ; Life Cycle Status: Active ; Vocabulary: SNOMED CT Depression (SNOMED CT :014145625 ) Name of Problem: Depression ; Recorder: KIRAN BARNEY PA; Confirmation: Confirmed ; Classification: Medical ; Code: 676275061 ; Contributor System: PowerChart ; Last Updated: 10/20/2017 12:02 EST ; Life Cycle Date: 10/20/2017 ; Life Cycle Status: Active ; Vocabulary: SNOMED CT Diverticulitis (SNOMED CT :426578501 ) Name of Problem: Diverticulitis ; Recorder: KIRAN BARNEY PA; Confirmation: Confirmed ; Classification: Medical ; Code: 046259109 ; Contributor System: PowerChart ; Last Updated: 10/20/2017 12:03 EST ; Life Cycle Date: 10/20/2017 ; Life Cycle Status: Active ; Vocabulary: SNOMED CT DJD (degenerative joint disease) (SNOMED CT :[id number] ) Name of Problem: DJD (degenerative joint disease) ; Recorder: KIRAN BARNEY PA; Confirmation: Confirmed ; Classification: Medical ; Code: [id number] ; Contributor System: PowerChart ; Last Updated: 10/20/2017 12:00 EST ; Life Cycle Date: 10/20/2017 ; Life Cycle Status: Active ; Vocabulary: SNOMED CT DM - Diabetes mellitus (SNOMED CT :860268596 ) Name of Problem: DM - Diabetes mellitus ; Recorder: KIRAN BARNEY PA; Confirmation: Confirmed ; Classification: Medical ; Code: 607230167 ; Contributor System: PowerChart ; Last Updated: 10/20/2017 12:02 EST ; Life Cycle Date: 10/20/2017 ; Life Cycle Status: Active ; Vocabulary: SNOMED CT Fibromyalgia (SNOMED CT :189810221 ) Name of Problem: Fibromyalgia ; Recorder: KIRAN BARNEY PA; Confirmation: Confirmed ; Classification: Medical ; Code: 431749987 ; Contributor System: PowerChart ; Last Updated: 10/20/2017 12:00 EST ; Life Cycle Date: 10/20/2017 ; Life Cycle Status: Active ; Vocabulary: SNOMED CT Folic acid deficiency (SNOMED CT :577893388 ) Name of Problem: Folic acid deficiency ; Recorder: PAO ONEAL RN; Confirmation: Confirmed ; Classification: Medical ; Code: 787097207 ; Contributor System: PowerChart ; Last Updated: 10/20/2017 12:17 EST ; Life Cycle Date: 10/20/2017 ; Life Cycle Status: Active ; Vocabulary: SNOMED CT Glaucoma (SNOMED CT :44959858 ) Name of Problem: Glaucoma ; Recorder: KIRAN BARNEY PA; Confirmation: Confirmed ; Classification: Medical ; Code: 91709313 ; Contributor System: PowerChart ; Last Updated: 10/20/2017 12:02 EST ; Life Cycle Date: 10/20/2017 ; Life Cycle Status: Active ; Vocabulary: SNOMED CT HTN - Hypertension (SNOMED CT :0618230116 ) Name of Problem: HTN - Hypertension ; Recorder: KIRAN BARNEY PA; Confirmation: Confirmed ; Classification: Medical ; Code: 4752783100 ; Contributor System: PowerChart ; Last Updated: 10/20/2017 12:01 EST ; Life Cycle Date: 10/20/2017 ; Life Cycle Status: Active ; Vocabulary: SNOMED CT Hypothyroid (SNOMED CT :451762543 ) Name of Problem: Hypothyroid ; Recorder: KIRAN BARNEY PA; Confirmation: Confirmed ; Classification: Medical ; Code: 476854736 ; Contributor System: PowerChart ; Last Updated: 10/20/2017 12:00 EST ; Life Cycle Date: 10/20/2017 ; Life Cycle Status: Active ; Vocabulary: SNOMED CT Migraines (SNOMED CT :04242672 ) Name of Problem: Migraines ; Recorder: PAO ONEAL RN; Confirmation: Confirmed ; Classification: Medical ; Code: 01485025 ; Contributor System: PowerChart ; Last Updated: 10/20/2017 12:16 EST ; Life Cycle Date: 10/20/2017 ; Life Cycle Status: Active ; Vocabulary: SNOMED CT PTSD (post-traumatic stress disorder) (SNOMED CT :[id number] ) Name of Problem: PTSD (post-traumatic stress disorder) ; Recorder: KIRAN BARNEY PA; Confirmation: Confirmed ; Classification: Medical ; Code: [id number] ; Contributor System: PowerChart ; Last Updated: 10/20/2017 12:01 EST ; Life Cycle Date: 10/20/2017 ; Life Cycle Status: Active ; Vocabulary: SNOMED CT Sleep apnea (SNOMED CT :262749765 ) Name of Problem: Sleep apnea ; Recorder: PAO ONEAL RN; Confirmation: Confirmed ; Classification: Medical ; Code: 376673040 ; Contributor System: PowerChart ; Last Updated: 10/20/2017 12:16 EST ; Life Cycle Date: 10/20/2017 ; Life Cycle Status: Active ; Vocabulary: SNOMED CT Tobacco abuse (SNOMED CT :734394195 ) Name of Problem: Tobacco abuse ; Recorder: KIRAN BARNEY PA; Confirmation: Confirmed ; Classification: Medical ; Code: 369450883 ; Contributor System: PowerChart ; Last Updated: 10/20/2017 12:04 EST ; Life Cycle Date: 10/20/2017 ; Life Cycle Status: Active ; Vocabulary: SNOMED CT Tremors of nervous system (SNOMED CT :94467667 ) Name of Problem: Tremors of nervous system ; Recorder: PAO ONEAL RN; Confirmation: Confirmed ; Classification: Medical ; Code: 27592664 ; Contributor System: PowerChart ; Last Updated: 10/20/2017 12:19 EST ; Life Cycle Date: 10/20/2017 ; Life Cycle Status: Active ; Vocabulary: SNOMED CT Vitamin D deficiency (SNOMED CT :08137362 ) Name of Problem: Vitamin D deficiency ; Recorder: PAO ONEAL RN; Confirmation: Confirmed ; Classification: Medical ; Code: 75557502 ; Contributor System: PowerChart ; Last Updated: 10/20/2017 12:17 EST ; Life Cycle Date: 10/20/2017 ; Life Cycle Status: Active ; Vocabulary: SNOMED CT Diagnoses(Active) Chest pressure Date: 05/06/2019 ; Diagnosis Type: Reason For Visit ; Confirmation: Complaint of ; Clinical Dx: Chest pressure ; Classification: Medical ; Clinical Service: Emergency medicine ; Code: PNED ; Probability: 0 ; Diagnosis Code: [id number] ED Height and Weight Height Source : Stated Height Entry Format : [place] Height, Feet : 5 ft(Converted to: 152 cm, 60 Inch) Height, Inches : 7 Inch(Converted to: 0 ft 7 Inch, 17.78 cm) Clinical Height : 170.18 cm Weight Source, ED : Critical estimated dosing weight Weight Entry Format : [place] Weight, Pounds : 290 lb Clinical Dosing Weight : 131.82 kg Body Surface Area (BSA) : 2.37 m2 Body Mass Index : 45.5 kg/m2 (>HHI) [place] Body Weight (IBW) : 61.16 kg KATHERYN VALENTIN, RN - 05/06/2019 11:23 EDT Pain Assessment Pain Assessment : Initial assessment Pain Scale Used : 0-10 Scale Location : Chest KATHERYN VALENTIN RN - 05/06/2019 11:23 EDT Pain Scale Intensity : 7 KATHERYN VALENTIN RN - 05/06/2019 11:23 EDT Image 4 - Images currently included in the form version of this document have not been included in the text rendition version of the form. documented in this encounter Plan of Treatment Upcoming Encounters Date Type Department Care Team (Late st Contact Info) Description 12/26/2025 10:00 AM EDT Office Visit [facility] Neurology - [address] [place] [phone] Lino Solis MD [address] [place] [address] [address] [place] [address] documented as of this encounter Visit Diagnoses Not on filedocumented in this encounter Care Teams Atomic Fuel Assembler Relationship Specialty Start Date End Date Ronaldo Kong MD [address] [place] [address] [place] [address] PCP - General General Internal Medicine 12/24/2210/19 Tanna Finch APRN [address] [place] [phone] PCP - General Nurse Practitioner 11/04/24 documented as of this encounter
--- OUTSIDE RECORDS SUMMARY | 2025-09-22 10:04 | XMS_ITS | Encounter Summary ---
Author Organization [employer] ([place], [place], [place], [place], [place]) Address [address] [place] [address] Care Team Providers Care Educational Resource Center Teacher Name Role Phone Ronaldo Kong MD Primary Care Provider [phone] Tanna Finch APRN Primary Care Provid er Encounter Details Date Type Department Care Team (Late st Contact Info) Description 06/12/2020 Transcribed Document [facility] [place] Family Medicine [address] [place] [address] ProviderJorje MD [address] [place] [address] Social History Tobacco Use Types Packs/Day [...] Conversion Note - Jorje ProviderMD - 06/12/2020 2:46 PM CDT Cardiac and Pulmonary Outpatient [facility]asha Entered On: 06/12/2020 14:46 EDT Performed On: 06/12/2020 14:46 EDT by CAROL ANN MELCHOR broommaking supervisor and Pulmonary Outpatient [facility]asha Criteria Disqualifying for Phase 2 Cardiac Rehab : No qualifying diagnosis Patient is scheduled for Phase 2 Cardiac rehab : No Cardiac Outpatient Rehab Evaluation Comment : EF 65% CAROL ANN MELCHOR RN - 06/12/2020 14:46 EDT Electronically signed by Jordon [facility] Conversion Sap Treasury Consultant Cerner at 02/03/2023 4:48 PM CDT documented in this encounter Plan of Treatment Upcoming Encounters Date Type Department Care Team (Late st Contact Info) Description 12/26/2025 10:00 AM EDT Office Visit [facility] Neurology - [address] [facility] [address] [place] [phone] Lino Solis MD [address] [place] [address] [address] [place] [address] documented as of this encounter Visit Diagnoses Not on filedocumented in this encounter Care Teams Educational Resource Center Teacher Relationship Specialty Start Date End Date Ronaldo Kong MD [address] [place] [address] PCP - General General Internal Medicine 12/24/2210/19 Tanna Finch APRN [address] [place] [phone] PCP - General Nurse Practitioner 11/04/24 documented as of this encounter
--- OUTSIDE RECORDS SUMMARY | 2025-09-22 10:04 | XMS_ITS | Encounter Summary ---
Author Organization [employer] ([place], [place], [place], [place], [place]) Address [address] [place] [address] Care Team Providers Care Front Desk Supervisor Name Role Phone Ronaldo Kong MD Primary Care Provider [phone] Tanna Finch APRN Primary Care Provid er Encounter Details Date Type Department Care Team (Late st Contact Info) Description 05/06/2019 Transcribed Document [facility] [place] [facility] [place] [address] ProviderJorje MD [address] [place] [address] Social History Tobacco Use Types Packs/Day [...] ProviderMD - 05/06/2019 11:17 AM CDT ED Assessment Entered On: 05/06/2019 11:33 EDT Performed On: 05/06/2019 11:28 EDT by FELICITA NEWTON, VENEER TAPER Quick Look Assessment Level of Consciousness : Alert Affect/Behavior : Calm Orientation : Oriented x 4 Skin Color : Pallor Skin Temperature : Warm FELICITA NEWTON RN - 05/06/2019 11:28 EDT ED General-Functional Assess Communication Barrier : None Primary Language : Cypriot Any Spiritual/Cultural Needs or Requests : No Currently in Unsafe Situation : No FELICITA NEWTON RN - 05/06/2019 11:28 EDT Social Habits Smoking Status : 5-9 cigarettes (between 1/4 to 1/2 pack)/day in last 30 days Smokeless Tobacco Status : Never Desires Tobacco Cessation Medication : No Reason for No Tobacco Cessation Medication : ED/procedural patient only Desires Tobacco Cessation Calc : 1 FELICITA NEWTON RN - 05/06/2019 11:28 EDT Social History (As Of: 05/06/2019 11:33:21 EDT) Tobacco: Smoking Status Current every day [...] Updated: 11/30/2017 08:18:23 EST by SERENITY WEBB) Alcohol: Alcohol Use History No. (Last Updated: 10/20/2017 12:24:18 EST by PAO ONEAL RN) Substance Abuse: Drug Use Hx: No. Use in Last 12 Months: No. (Last Updated: 10/20/2017 12:24:23 EST by PAO ONEAL RN) Nutrition/Health: Caffeine intake amount: 3 cups a day. (Last Updated: 10/20/2017 12:24:55 EST by PAO ONEAL RN) Cardiovascular ASMT, ED Cardiovascular Assessment WDL : WDL with patient specific variances Heart Rhythm : Regular Chest Pain : Yes Detailed Cardiovascular Assessment : Open FELICITA NEWTON RN - 05/06/2019 11:28 EDT Cardiovascular ASMT, Detailed Cardiac Rhythm : Normal sinus rhythm FELICITA NEWTON RN - 05/06/2019 11:28 EDT Respiratory Respiratory Assessment WDL : WDL with patient specific variances FELICITA NEWTON RN - 05/06/2019 11:28 EDT Breath Sounds Assessment Grid All Lobes Breath Sounds : Clear MINERVA : Clear LLL : Clear RUL : Clear RML : Clear RLL : Clear FELICITA NEWTON RN - 05/06/2019 11:28 EDT Electronically signed by [facility] Conversion Utility Driver Cerner at 02/03/2023 4:41 PM CDT documented in this encounter Plan of Treatment Upcoming Encounters Date Type Department Care Team (Late st Contact Info) Description 12/26/2025 10:00 AM EDT Office Visit [facility] [address] [facility] [address] [place] [phone] Lino Solis MD [address] [place] [address] [address] [place] [address] documented as of this encounter Visit Diagnoses Not on filedocumented in this encounter Care Teams Front Desk Supervisor Relationship Specialty Start Date End Date Ronaldo Kong MD [address] [place] [id number] PCP - General General Internal Medicine 12/24/2210/19 Tanna Finch APRN [address] [place] [phone] PCP - General Nurse Practitioner 11/04/24 documented as of this encounter
--- OUTSIDE RECORDS SUMMARY | 2025-09-22 10:04 | XMS_ITS | Encounter Summary ---
Author Organization [employer] ([place], [place], [place], [place], [place]) Address [address] [place] [address] Care Team Providers Care Manager Target Name Role Phone Ronaldo Pfeiffer MD Primary Care Provider [phone] Tanna Finch APRN Primary Care Provid er Encounter Details Date Type Department Care Team (Late st Contact Info) Description 05/06/2019 Transcribed Document [facility] [place] [address] [place] [address] ProviderJorje MD [address] [place] [address] Social History Tobacco Use Types Packs/Day [...] Conversion Note - Jorje ProviderMD - 05/06/2019 11:37 AM CDT Patient: FRANNIE NUÑEZ Age: 48 years Sex: Female : 1970 Associated Diagnoses: Chest pain, non-cardiac Author: DAYLIN MIRANDA ARNP Basic Information Time seen: Date & time 05/06/2019 11:27:00. History source: Patient. Arrival mode: Private vehicle. History limitation: None. Additional information: Chief Complaint from Nursing Triage Note : Chief Complaint 05/06/2019 11:23 EDT Chief Complaint pt having CP onset 4 hrs ago, MSNR, suppose to have cath on 05/18 per Maury, no N/V, pain 04/27 , no meds [employer]ING [employer]ITE [employer]AB[employer]ICATOR . History of Present Illness The patient presents with chest pain. The onset was 4 hours ago and at rest. The course/duration of symptoms is constant. Location: Left anterior chest. Radiating pain: left arm. The character of symptoms is tightness. The degree at onset was moderate. The degree at maximum was moderate. The degree at present is moderate. The exacerbating factor is none. The relieving factor is none. Risk factors consist of hypertension, diabetes mellitus, obesity, hyperlipidemia and family history of coronary artery disease. Prior episodes: cardiac. Therapy today None. Associated symptoms: shortness of breath, nausea, anxiety, denies vomiting, denies diaphoresis and denies palpitations. Review of Systems Constitutional symptoms: Negative except as documented in HPI. Skin symptoms: Negative except as documented in HPI. Eye symptoms: Negative except as documented in HPI. ENMT symptoms: Negative except as documented in HPI. Respiratory symptoms: Shortness of breath. Cardiovascular symptoms: Chest pain. Gastrointestinal symptoms: Negative except as documented in HPI. Genitourinary symptoms: Negative except as documented in HPI. Musculoskeletal symptoms: Negative except as documented in HPI. Neurologic symptoms: Negative except as documented in HPI. Psychiatric symptoms: Negative except as documented in HPI. Endocrine symptoms: Negative except as documented in HPI. Health Status Allergies: Allergic Reactions (Selected) Severity Not Documented Benadryl- No reactions were documented. Tetanus immune globulin- No reactions were documented.. Medications: (Selected) Inpatient Medications Ordered Nitrostat: 0.4 mg, SubLINgual, Q5Min, PRN: Chest Pain Normal Saline Bolus: 1,000 mL, 1,000 mL/Hr, IV Piggyback, 1-Time Normal Saline Flush: 10 mL, IV Push, 1-Time aspirin: 324 mg, Chew, 1-Time Prescriptions Prescribed zonisamide 100 mg oral capsule: 1 Cap, Oral, BID, 60 Cap, 11 Refill(s) Documented Medications Documented ARIPiprazole: 10 mg, Oral, Daily, 0 Refill(s) Restasis 0.05% ophthalmic emulsion: 1 Drop, Eyes Both, BID, 0 Refill(s) Vitamin D3 50,000 intl units oral capsule: 1 Cap, Oral, Weekly, 12 Cap, 0 Refill(s) brompheniramine-pseudoephedrine 1 mg-15 mg/5 mL oral liquid: 5 mL, Oral, Q6H, PRN: Cough, 0 Refill(s) buPROPion: 150 mg, Oral, Daily, 0 Refill(s) carisoprodol 350 mg oral tablet: 1 Tab, Oral, TID, 0 Refill(s) doxycycline: 100 mg, Oral, BID, 0 Refill(s) gabapentin 600 mg oral tablet: 1 Tab, Oral, BID, 0 Refill(s) hydrOXYzine hydrochloride 50 mg oral tablet: 1 Tab, Oral, TID, PRN: as needed for anxiety, 0 Refill(s) hydroCHLOROthiazide-lisinopril 25 mg-20 mg oral tablet: 1 Tab, Oral, BID, 30 Tab, 0 Refill(s) levothyroxine 88 mcg (0.088 mg) oral tablet: 1 Tab, Oral, Daily, 60 Tab, 0 Refill(s) naproxen: 220 mg, Oral, Q8H, PRN: as needed for pain, 0 Refill(s) pantoprazole 40 mg oral delayed release tablet: 1 Tab, Oral, Daily, 30 Tab, 0 Refill(s) potassium chloride 20 mEq oral tablet, extended release: 1.5 Tab, Oral, TID, 0 Refill(s) predniSONE 10 mg oral tablet: 1 Tab, Oral, Daily, day 1=6Tab, day 2= 5 Tab, day 3= 4 Tab, day 4= 3 Tab, day 5= 2 Tab, day 6= 1 Tab, then DC, 0 Refill(s) rizatriptan 10 mg oral tablet: 1 Tab, Oral, 1-Time, may repeat in 2 hours if response unsatisfactory, PRN: as needed for migraine headache, 6 Tab, 0 Refill(s) traZODone 100 mg oral tablet: 1 Tab, Oral, At Bedtime, 0 Refill(s) venlafaxine 150 mg oral capsule, extended release: 1 Cap, Oral, Daily, 0 Refill(s) venlafaxine 75 mg oral tablet, extended release: 1 Tab, Oral, Daily, 0 Refill(s), per nurse's notes. Immunizations: Per nurse's notes. Past Medical/ Family/ Social History Medical history Reviewed as documented in chart. Surgical history: Hysterectomy. Neck fusion., Reviewed as documented in chart. Family history: No family history items have been selected or recorded., Reviewed as documented in chart. Social history: Social & Psychosocial Habits Alcohol 10/20/2017 Alcohol [...] Days No Smokeless Tobacco Use History None , Reviewed as documented in chart. Problem list: Active Problems (20) Anxiety Arthritis Asthma Borderline personality disorder Cornea scar Depression Diverticulitis DJD (degenerative joint disease) DM - Diabetes mellitus Fibromyalgia Folic acid deficiency Glaucoma HTN - Hypertension Hypothyroid Migraines PTSD (post-traumatic stress disorder) Sleep apnea Tobacco abuse Tremors of nervous system Vitamin D deficiency , per nurse's notes. Physical Examination Vital Signs Vital Signs/Vital Measures 05/06/2019 11:23 EDT Systolic Blood Pressure 122 mmHg Diastolic Blood Pressure 79 mmHg Temperature Source Oral Temperature Mode Fahrenheit Temperature, Fahrenheit 98.1 Deg F Clinical Temperature, C 36.7 Deg C Peripheral Pulse Rate 87 bpm Respiratory Rate 16 Breaths/Min Oxygen Saturation 100 % Oxygen Therapy Mode Room air . Measurements 05/06/2019 11:23 EDT Height Source Stated Height Entry Format [place] Height/Length, VINCENTIAN (ft) 5 ft Height/Length VINCENTIAN 7 Inch CLINICALHEIGHT 170.18 cm [place] Body Weight 61.16 kg Weight Source, ED Critical estimated dosing weight Weight Entry Format [place] Weight [place] lb 290 lb CLINICALWEIGHT 131.82 kg Body Surface Area (BSA) 2.37 m2 Body Mass Index 45.5 kg/m2 >HHI . Oxygen Saturation 05/06/2019 11:23 EDT Oxygen Saturation 100 % . General: Alert, no acute distress. Skin: Warm, dry, pink, intact, no rash. Head: Normocephalic. Neck: Supple. Eye: Normal conjunctiva. Ears, nose, mouth and throat: Oral mucosa moist, no pharyngeal erythema or exudate. Cardiovascular: Regular rate and rhythm, No murmur, Normal peripheral perfusion, Edema: Bilateral, lower extremity, pedal, 1+. Respiratory: Lungs are clear to auscultation, respirations are non-labored, breath sounds are equal. Gastrointestinal: Soft, Nontender, Non distended, Normal bowel sounds, Obese. Back: Normal range of motion. Musculoskeletal: Normal ROM, normal strength. Neurological: Alert and oriented to person, place, time, and situation, No focal neurological deficit observed, normal speech observed. Psychiatric: Cooperative, appropriate mood & affect, normal judgment. Medical Decision Making Differential Diagnosis: Myocardial infarction, non-ST elevation myocardial infarction, unstable angina, angina, anxiety, pulmonary embolism, atypical chest pain, gastroesophageal reflux disease, congestive heart failure. Documents reviewed: Emergency department nurses' notes. Electrocardiogram: Time 05/06/2019 11:27:00, rate 84, normal sinus rhythm, No ST changes, no ectopy, normal IL & QRS intervals, EP Interp. Results review: Lab results : Lab Results 05/06/2019 14:53 EDT Urine Type U CleanCatch Urine Color Yellow Urine Appearance Clear Urine Specific Shelly >1.030 HI Urine pH Dipstick 7.5 Urine Leukocyte Esterase Negative Urine Nitrite Negative Urine Protein Dipstick Negative Urine Glucose Dipstick Negative Urine Ketones Dipstick Negative Urine Urobilinogen Dipstick 0.2 EU/dL Urine Bilirubin Dipstick Negative Urine Blood Dipstick Negative 05/06/2019 14:40 EDT Lactic Acid Level 2.4 mmol/L CRIT Troponin I Ultra <0.015 ng/mL 05/06/2019 11:42 EDT Sodium Level 139 mmol/L Potassium Level 3.5 mmol/L Chloride Level 105 mmol/L Carbon Dioxide Level 27 mmol/L Anion Gap 10 Glucose Level 112 mg/dL HI Blood Urea Nitrogen 13 mg/dL Creatinine Level 0.90 mg/dL eGFR >60 mL/min/1.73m2 eGFR NonAfrican >60 mL/min/1.73m2 Bun/Creatinine 14.4 Calcium Level 9.4 mg/dL Protein Total 7.6 Gram/dL Albumin Level 3.5 Gram/dL Globulin 4.1 Gram/dL A/G Ratio 0.9 LOW Bilirubin Total 0.2 mg/dL Alk Phos 163 Units/Liter HI AST 13 Units/Liter ALT 27 Units/Liter Lipase Level 196 Units/Liter Lactic Acid Level 2.1 mmol/L CRIT Troponin I Ultra <0.015 ng/mL ProBNP 23 pg/mL WBC 13.4 K/uL HI RBC 3.92 Million/uL LOW Hgb 12.0 g/dL Hct 36.4 % MCV 92.9 fL MCH 30.6 pg MCHC 33.0 Gram/dL Platelet Count 349 K/uL MPV 9.8 fL RDW 13.9 % Neut % 74.1 % HI Neut # 9.94 K/uL HI Lymph % 16.5 % LOW Lymph # 2.22 x10(3)/uL [place] % 6.3 % [place] # 0.85 K/uL Eos % 1.3 % Eos # 0.18 x10(3)/uL Baso % 0.4 % Baso # 0.05 x10(3)/uL Slide Review No IG# 0.19 x10(3)/uL HI IG% 1.40 % HI PT 9.5 Second(s) LOW INR 0.9 D Dimer Quant see comment mg/L FEU . Radiology results: Radiology Results (Last 48 hours) [id number] -- 05/06/2019 11:17 CR Chest 1 Vw Portable (05/06/2019 11:54) Result: PORTABLE CHESTHISTORY: Shortness of breath.COMPARISON: September 28, 2017.FINDINGS: A single portable radiograph of the chest was performed. The heart is normal in size. The aortic contours are normal. Thelungs are well expanded with no infiltrate or edema. There are nopleural effusions. There is no pneumothorax identified. The visualizedosseous structures demonstrate no acute abnormalities. IMPRESSION: No acute cardiopulmonary process.Images reviewed, interpreted, and dictated by Dr. Angelo Panda.Transcribed by Dayami Armendariz (Shivam)Juan (R).I have personally viewed, interpreted and dictated the examination. Ihave read and agree with the above final transcribed report. CTA Chest PE Protocol (05/06/2019 14:29) Result: CTA/PE PROTOCOL CHEST CT: 05/06/2019 1:03 PM HISTORY: Shortness of breath .COMPARISON: None.TECHNIQUE: The patient was injected with IV contrast . Axial imageswere obtained through the chest in a CTA/ PE protocol. 3 DReconstruction images were also performed. This study was performed withtechniques to keep radiation doses as low as reasonably achievable,(ALARA). Individualized dose reduction techniques using automatedexposure control or adjustment of mA and/or kV according to the patientsize were employed.FINDINGS: There is no axillary adenopathy. There is no hilar ormediastinal adenopathy . The heart size is normal. There is nopericardial or pleural effusion . Bolus is suboptimal for evaluation ofpulmonary embolus. No central or proximal segmental embolus isidentified. There is no aortic dissection . Limited images of the upperabdomen are unremarkable . There is a 7 mm noncalcified noduleidentified in the left upper lobe. There is an adjacent noncalcified 5mm left upper lobe nodule. There is a 5 mm noncalcified pleural-basednodule within the right upper lobe. There is a 5 mm noncalcified nodulewithin the right middle lobe. No acute infiltrate is identified. IMPRESSION: Suboptimal bolus without central or proximal segmental pulmonary embolusidentified. Indeterminate pulmonary nodules. Follow-up CT of the chest in 6 monthsis recommended.Images reviewed, interpreted, and dictated by Dr. Dee Jones.Transcribed by Goran Mckeon PA-C . Reexamination/ Reevaluation Time: 05/06/2019 15:20:00 . Notes: On reevaluation, the patient is feeling better. There is no evidence of elevated troponin. No EKG changes. The patient remained hemodynamically stable. Given the patient's HEART score and consistent nature of the chest pain for >6 hours, the patient is low risk for acute coronary syndrome in the next 6 weeks. I do not believe the chest pain is secondary to cardiac nature. The patient will benefit from follow-up with their PCP. The patient is stable for discharge at this time. The patient was informed of the above diagnostic test findings. No further workup is necessary at this time. They will be discharged home with perscriptions. They were advised to follow-up with their PCP or emergency physician in 24 hours. The patient was instructed to return to the emergency room if they develop worsening symptoms. The patient feels that this is appropriate medical decision making and verbalizes an understanding of his discharge instructions. . Procedure Heart Score Heart History: Slightly suspicious. EKG: Normal. Age: 45 - 65. Risk Factors: Greater than or equal to 3 risk factors. Troponin: Less than or equal to normal limit. Scorin to 3: 1.6% risk of MACE. Impression and Plan Diagnosis Chest pain, non-cardiac - Discharge, Medical Plan Condition: Improved. Disposition: Discharged Admit/Transfer/Discharge: Discharge (Order): Start: 05/06/2019 15:22 EDT, Discharge to: Home , Patient care transitioned to: Time: 05/06/2019 14:38:00, LIGIA FUNK MD. Patient was given the following educational materials: Nonspecific Chest Pain. Follow up with: [facility] Within As needed Patient stated she is currently established with Dr. Ronaldo Pfeiffer. Feel free to contact our Patient Resource [facility] at [phone] for any future Physician scheduling needs. ; RONALDO PFEIFFER Within 2 to 3 days. Counseled: Patient, Regarding diagnosis, Regarding diagnostic results, Regarding treatment plan, Regarding prescription, Patient indicated understanding of instructions. documented in this encounter Plan of Treatment Upcoming Encounters Date Type Department Care Team (Late st Contact Info) Description 12/26/2025 10:00 AM EDT Office Visit [facility] Neurology - [address] [place] [address] [place] [phone] Lino Solis MD [address] [place] [address] [place] [phone] documented as of this encounter Visit Diagnoses Not on filedocumented in this encounter Care Teams Manager Target Relationship Specialty Start Date End Date Ronaldo Pfeiffer MD [address] [place] [address] [place] [address] PCP - General General Internal Medicine 12/24/2210/19 Tanna Finch, OMAR [address] [place] [phone] PCP - General Nurse Practitioner 11/04/24 documented as of this encounter
--- OUTSIDE RECORDS SUMMARY | 2025-09-22 10:04 | XMS_ITS | Encounter Summary ---
Author Organization [employer] ([place], [place], [place], [place], [place]) Address [address] [place] [address] Care Team Providers Care Hospice Director Name Role Phone Krissy Pfeiffer MD Primary Care Provider [phone] Tanna Finch APRN Primary Care Provid er Encounter Details Date Type Department Care Team (Late st Contact Info) Description 05/06/2019 Transcribed Document [facility] [place] Family Medicine [address] [place] [address] ProviderJorje MD [address] [place] [address] Social History Tobacco Use Types Packs/Day [...] Conversion Note - Jorje ProviderMD - 05/06/2019 3:35 PM CDT [facility] LIZBETH [place] [address] FRANNIE NUÑEZ :1970 Visit Time:05/06/2019 Your Visit Summary Your Care Team Admitting Physician - LIGIA FUNK MD Attending Physician - LIGIA FUNK MD Primary Care Physician - KRISSY PFEIFFER (REF), -INT Referring Physician - LIGIA FUNK MD Your Diagnosis Chest pain, non-cardiac Chest pressure Medical Information You may obtain a copy of your Emergency Department visit from Medical Records by calling the hospital phone number listed above and asking to be directed to the Medical Records Department. If you had special tests, such as EKG???s or X-rays, the interpretation of your tests given to you by the Emergency Department Physician is a preliminary report. Some fractures and illnesses fail to show up on preliminary tests. These will be reviewed again and we will call you if there are any new suggestions. If your symptoms continue notify your physician. After you leave, you should follow the instructions provided. What to do next Follow-Up Appointments Follow Up with [facility] When Within As needed Comments Patient stated she is currently established with Dr. Krissy Pfeiffer. Feel free to contact our Patient Resource Center at [phone] for any future Physician scheduling needs. Follow Up with KRISSY PFEIFFER When Within 2 to 3 days Where: [address] [place] [address] [facility] (1) Allergies Benadryl tetanus immune globulin Immunizations This Visit No Immunizations Found Medications What How Much When Instructions Next Dose The home medications listed are only as accurate as the information you provided. Please continue taking all of your medications prescribed by your Primary Care Provider unless specifically told to change or discontinue the medication. Please direct any questions regarding your home medications to your Primary Care Provider. Take your medications faithfully. Do NOT skip [...] Please dispose of unused and medications per pharmacy guidance. Test Results Laboratory or Other Results This Visit (last charted value for your 05/06/2019 visit) Hematology 05/06/19 11:42:00 WBC: 13.4 K/uL -- Normal range between ( 4.5 and 10.5 ) RBC: 3.92 Million/uL -- Normal range between ( 3.93 and 5.22 ) Hct: 36.4 % -- Normal range between ( 34.1 and 44.9 ) Hgb: 12.0 g/dL -- Normal range between ( 11.2 and 15.7 ) Platelet Count: 349 K/uL -- Normal range between ( 163 and 369 ) MCH: 30.6 pg -- Normal range between ( 25.6 and 32.2 ) MCHC: 33.0 Gram/dL -- Normal range between ( 32.2 and 36.5 ) MCV: 92.9 fL -- Normal range between ( 79.0 and 94.8 ) Slide Review: No Eos %: 1.3 % -- Normal range between ( 0.0 and 7.0 ) [place] #: 0.85 K/uL -- Normal range between ( 0.16 and 1.00 ) Eos #: 0.18 x10(3)/uL -- Normal range between ( 0.00 and 0.80 ) [place] %: 6.3 % -- Normal range between ( 3.0 and 9.0 ) Baso %: 0.4 % -- Normal range between ( 0.0 and 1.5 ) Baso #: 0.05 x10(3)/uL -- Normal range between ( 0.00 and 0.20 ) RDW: 13.9 % -- Normal range between ( 11.7 and 14.9 ) Neut %: 74.1 % -- Normal range between ( 34.0 and 71.0 ) Neut #: 9.94 K/uL -- Normal range between ( 1.56 and 6.13 ) Lymph %: 16.5 % -- Normal range between ( 19.3 and 53.1 ) Lymph #: 2.22 x10(3)/uL -- Normal range between ( 1.00 and 3.90 ) MPV: 9.8 fL -- Normal range between ( 9.4 and 12.4 ) IG#: 0.19 x10(3)/uL -- Normal range between ( 0.00 and 0.05 ) IG%: 1.40 % -- Normal range between ( 0.00 and 0.60 ) Urinalysis 05/06/19 14:53:00 Urine Nitrite: Negative Urine Leukocyte Esterase: Negative Urine Appearance: Clear Urine Glucose Dipstick: Negative Urine Blood Dipstick: Negative Urine Type: U CleanCatch Urine Urobilinogen Dipstick: 0.2 EU/dL Urine Protein Dipstick: Negative Urine Color: Yellow Urine Ketones Dipstick: Negative Urine pH Dipstick: 7.5 -- Normal range between ( 6.0 and 8.0 ) Urine Bilirubin Dipstick: Negative Urine Specific [place]: >1.030 -- Normal range between ( 1.005 and 1.030 ) General Chemistry 05/06/19 14:40:00 Lactic Acid Level: 2.4 mmol/L -- Normal range between ( 0.4 and 2.0 ) 05/06/19 11:42:00 Creatinine Level: 0.90 mg/dL -- Normal range between ( 0.55 and 1.02 ) Sodium Level: 139 mmol/L -- Normal range between ( 136 and 146 ) Potassium Level: 3.5 mmol/L -- Normal range between ( 3.5 and 5.1 ) Chloride Level: 105 mmol/L -- Normal range between ( 102 and 112 ) Carbon Dioxide Level: 27 mmol/L -- Normal range between ( 21 and 32 ) Anion Gap: 10 -- Normal range between ( 9 and 20 ) Bilirubin Total: 0.2 mg/dL -- Normal range between ( 0.2 and 1.2 ) A/G Ratio: 0.9 -- Normal range between ( 1.1 and 2.5 ) ALT: 27 Units/Liter -- Normal range between ( 13 and 56 ) AST: 13 Units/Liter -- Normal range between ( 5 and 37 ) Globulin: 4.1 Gram/dL -- Normal range between ( 1.5 and 4.5 ) Alk Phos: 163 Units/Liter -- Normal range between ( 27 and 136 ) Bun/Creatinine: 14.4 -- Normal range between ( 8.0 and 20.0 ) Calcium Level: 9.4 mg/dL -- Normal range between ( 8.4 and 10.1 ) eGFR : >60 mL/min/1.73m2 eGFR NonAfrican: >60 mL/min/1.73m2 Glucose Level: 112 mg/dL -- Normal range between ( 74 and 106 ) Blood Urea Nitrogen: 13 mg/dL -- Normal range between ( 7 and 22 ) Protein Total: 7.6 Gram/dL -- Normal range between ( 6.4 and 8.2 ) Albumin Level: 3.5 Gram/dL -- Normal range between ( 3.4 and 5.0 ) Lipase Level: 196 Units/Liter -- Normal range between ( 73 and 393 ) Cardiac Specific Markers 05/06/19 14:40:00 Troponin I Ultra: <0.015 ng/mL -- Normal range between ( 0.015 and 0.045 ) 05/06/19 11:42:00 ProBNP: 23 pg/mL -- Normal range between ( 0 and 125 ) Coagulation 05/06/19 11:42:00 D Dimer Quant: see comment mg/L FEU -- Normal range between ( 0.00 and 0.58 ) INR: 0.9 -- Normal range between ( 0.9 and 1.1 ) PT: 9.5 Second(s) -- Normal range between ( 9.6 and 12.0 ) Diagnostic Radiology 05/06/19 11:54:29 CR Chest 1 Vw Portable: CR Chest 1 Vw Portable [employer] Nonspecific Chest Pain Chest pain can be caused by many different conditions. There is always a chance that your pain could be related to something serious, such as a heart attack or a blood clot in your lungs. Chest pain can also be caused by conditions that are not life-threatening. If you have chest pain, it is very important to follow up with your health care provider. What are the causes? Causes of this condition include: ??? Heartburn. ??? Pneumonia or bronchitis. ??? Anxiety or stress. ??? Inflammation around your heart (pericarditis) or lung (pleuritis or pleurisy). ??? A blood clot in your lung. ??? A collapsed lung (pneumothorax). This can develop suddenly on its own (spontaneous pneumothorax) or from trauma to the chest. ??? Shingles infection (varicella-zoster virus). ??? Heart attack. ??? Damage to the bones, muscles, and cartilage that make up your chest wall. This can include: ? Bruised bones due to injury. ? Strained muscles or cartilage due to frequent or repeated coughing or overwork. ? Fracture to one or more ribs. ? Sore cartilage due to inflammation (costochondritis). What increases the risk? Risk factors for this condition may include: ??? Activities that increase your risk for trauma or injury to your chest. ??? Respiratory infections or conditions that cause frequent coughing. ??? Medical conditions or overeating that can cause heartburn. ??? Heart disease or family history of heart disease. ??? Conditions or health behaviors that increase your risk of developing a blood clot. ??? Having had chicken pox (varicella zoster). What are the signs or symptoms? Chest pain can feel like: ??? Burning or tingling on the surface of your chest or deep in your chest. ??? Crushing, pressure, aching, or squeezing pain. ??? Dull or sharp pain that is worse when you move, cough, or take a deep breath. ??? Pain that is also felt in your back, neck, shoulder, or arm, or pain that spreads to any of these areas. Your chest pain may come and go, or it may stay constant. How is this diagnosed? Lab tests or other studies may be needed to find the cause of your pain. Your health care provider may have you take a test called an ECG (electrocardiogram). An ECG records your heartbeat patterns at the time the test is performed. You may also have other tests, such as: ??? Transthoracic echocardiogram (TTE). In this test, sound waves are used to create a picture of the heart structures and to look at how blood flows through your heart. ??? Transesophageal echocardiogram (GERRY). This is a more advanced imaging test that takes images from inside your body. It allows your health care provider to see your heart in finer detail. ??? Cardiac monitoring. This allows your health care provider to monitor your heart rate and rhythm in real time. ??? Holter monitor. This is a portable device that records your heartbeat and can help to diagnose abnormal heartbeats. It allows your health care provider to track your heart activity for several days, if needed. ??? Stress tests. These can be done through exercise or by taking medicine that makes your heart beat more quickly. ??? Blood tests. ??? Other imaging tests. How is this treated? Treatment depends on what is causing your chest pain. Treatment may include: ??? Medicines. These may include: ? Acid blockers for heartburn. ? Anti-inflammatory medicine. ? Pain medicine for inflammatory conditions. ? Antibiotic medicine, if an infection is present. ? Medicines to dissolve blood clots. ? Medicines to treat coronary artery disease (CAD). ??? Supportive care for conditions that do not require medicines. This may include: ? Resting. ? Applying heat or cold packs to injured areas. ? Limiting activities until pain decreases. Follow these instructions at home: Medicines ??? If you were prescribed an antibiotic, take it as told by your health care provider. Do not stop taking the antibiotic even if you start to feel better. ??? Take [id number] and prescription medicines only as told by your health care provider. Lifestyle ??? Do not use any products that contain nicotine or tobacco, such as cigarettes and e-cigarettes. If you need help quitting, ask your health care provider. ??? Do not drink alcohol. ??? Make lifestyle changes as directed by your health care provider. These may include: ? Getting regular exercise. Ask your health care provider to suggest some activities that are safe for you. ? Eating a heart-healthy diet. A registered dietitian can help you to learn healthy eating options. ? Maintaining a healthy weight. ? Managing diabetes, if necessary. ? Reducing stress, such as with yoga or relaxation techniques. General instructions ??? Avoid any activities that bring on chest pain. ??? If heartburn is the cause for your chest pain, raise (elevate) the head of your bed about 6 inches (15 cm) by putting blocks under the legs. Sleeping with more pillows does not effectively relieve heartburn because it only changes the position of your head. ??? Keep all follow-up visits as told by your health care provider. This is important. This includes any further testing if your chest pain does not go away. Contact a health care provider if: ??? Your chest pain does not go away. ??? You have a rash with blisters on your chest. ??? You have a fever. ??? You have chills. Get help right away if: ??? Your chest pain is worse. ??? You have a cough that gets worse, or you cough up blood. ??? You have severe pain in your abdomen. ??? You have severe weakness. ??? You faint. ??? You have sudden, unexplained chest discomfort. ??? You have sudden, unexplained discomfort in your arms, back, neck, or jaw. ??? You have shortness of breath at any time. ??? You suddenly start to sweat, or your skin gets clammy. ??? You feel nauseous or you vomit. ??? You suddenly feel light-headed or dizzy. ??? Your heart begins to beat quickly, or it feels like it is skipping beats. These symptoms may represent a serious problem that is an emergency. Do not wait to see if the symptoms will go away. Get medical help right away. Call your local emergency services (911 in the [place] Do not drive yourself to the hospital. This information is not intended to replace advice given to you by your health care provider. Make sure you discuss any questions you have with your health care provider. Document Released: 07/15/2006 Document Revised: 06/29/2017 Document Reviewed: 06/29/2017 [employer] Patient Education ?? 2019 [employer] Emergency Awareness and Preventative Care STROKE [...] Assistance with quitting is available by contacting 9-566-PYIC-NOW. This is a free resource providing counseling, [...] and how to prevent infections, visit www.cdc.gov/sepsis. The examination and treatment you have received in the Emergency Department has been done to provide an appropriate evaluation and stabilizing treatment on an emergency basis only. Given the limited resources, it is not meant to be a substitute for complete medical care. The follow-up doctor you named will receive a copy of your records and all test reports. IT IS IMPORTANT THAT YOU SCHEDULE A FOLLOW-UP APPOINTMENT AND ARE RE-EVALUATED. You should report any new complaints, symptoms, or remaining problems at that time. IT IS IMPOSSIBLE FOR THE EMERGENCY DEPARTMENT TO RECOGNIZE AND TREAT ALL ELEMENTS OF INJURY OR ILLNESS IN A SINGLE VISIT. If you have been referred to a specialist physician, it means that we believe you may have a condition that requires the expertise of a specialist. These physicians work in partnership with the hospital and have agreed to see referred patients in their office for further evaluation. KEEP IN MIND THAT THE SPECIALIST HAS HIS/HER OWN OFFICE POLICIES WHICH MAY REQUIRE PROPER INSURANCE OR PAYMENT UP FRONT BEFORE THE SPECIALIST WILL SEE YOU. It is your responsibility to call the specialist physician to make an appointment. We do not have the ability to refer patients to specialists/physicians that work with specific insurance companies. Please be advised that all financial charges or billing practices are determined by that practice, not the hospital. If your insurance company requires that you see a specialist from their approved list, it is your responsibility to contact your insurance company to make those arrangements. It is also your responsibility to follow any other requirements of your insurance company necessary to obtain coverage for claims submitted. We will bill your insurance; however, you are responsible today for any co-pay amounts. You will receive a separate bill for any services you may have received including: emergency, radiology, or pathology physicians. Patient Name:FRANNIE NUÑEZ I have received this information and was given the opportunity to ask questions. Patient/Minute Clerk Name: Patient/Minute Clerk Signature: Relationship to Patient: Clinician/Hospital Minute Clerk Signature: Please Provide a Telephone Number Where You Can Be Reached: Is it Permissible To Leave a Message? Date: documented in this encounter Plan of Treatment Upcoming Encounters Date Type Department Care Team (Late st Contact Info) Description 12/26/2025 10:00 AM EDT Office Visit [facility] Neurology - [address] [place] [address] Lino Solis MD [address] [employer] [facility] [address] [place] [address] documented as of this encounter Visit Diagnoses Not on filedocumented in this encounter Care Teams Hospice Director Relationship Specialty Start Date End Date Krissy Pfeiffer MD [address] [place] [address] PCP - General General Internal Medicine 12/24/2210/19 Tanna Finch APRN [address] [place] [id number] PCP - General Nurse Practitioner 11/04/24 documented as of this encounter
--- OUTSIDE RECORDS SUMMARY | 2025-09-22 10:04 | XMS_ITS | Encounter Summary ---
Author Organization [employer] ([place], [place], [place], [place], [place]) Address [address] [place] [address] Care Team Providers Care Lan Analyst Name Role Phone Ronaldo Kong MD Primary Care Provider [phone] Tanna Finch APRN Primary Care Provid er Encounter Details Date Type Department Care Team (Late st Contact Info) Description 02/11/[address] [facility] [place] Family Medicine [address] [place] [address] ProviderJorje MD [address] [place] [id number] Social History Tobacco Use Types Packs/Day Years Used Date Smoking Tobacco: Never Assessed Comments Unknown Sex and Gender Information Value Date Recorded Sex Assigned at Female 04/17/2022 4:47 PM CDT Legal Sex Female 3:02 PM CDT Gender Identity Female 04/17/2022 4:47 PM CDT Sexual Orientation Not on file documented as of this encounter Miscellaneous Notes * [employer] Conversion Note - Historical ProviderMD - 02/11/2019 5:12 PM CDT DATE OF SERVICE: 02/09/2019 SPLIT-NIGHT SLEEP STUDY REFERRING PROVIDER: Lino Solis M.D. PSYCHIATRIST: Haleigh Stahl M.D. EPILEPTOLOGIST: Dr. Schultz. PRIMARY CARE DOCTOR: Ronaldo Kong M.D. HISTORY: The patient is a 48-year-old, who was seen in clinic on 02/01/2019, and I would refer that note for details. She was diagnosed with mild to moderate obstructive sleep apnea in October 2016. She tried CPAP, but did not tolerate it well and was switched to BiPAP. She did not document adequate compliance and the machine was removed from her home when insurance declined to pay for it anymore. Since then, symptoms have worsened. This is associated with weight gain. She has recurrent bronchitis. She is tired during the day. She wakes up gasping. She occasionally has headaches. She would like to start another trial of treatment. She also has fibromyalgia. She says that she has atypical spells and is being evaluated for possible epilepsy. She has a history of depression and anxiety, which are severe at times and continues to smoke cigarettes. MONTAGE: F3-M2, F4-1, C3-M2, C4-M2, O1-M2, O2-M1, LOC-M2, CANDY-M2, submental EMG (3 leads), L tibialis anterior, R tibialis anterior, ECG, SpO2, airflow (from CPAP flow generator), thoracic respiratory effort and abdominal respiratory effort. METHOD: Continuous recording of electroencephalographic, oculographic, submental EMG, limb movements, pulse oximetry, electrocardiogram using modified lead II torso placement, airflow and respiratory effort occurring during the patient's habitual sleep time. Nasal airflow (pressure) and oral airflow (thermal) were recorded during the initial part of the study. Airflow during the second part of the study was recorded from the CPAP flow generator. Each 30 second epoch was scored according to The AASM Manual for the Scoring of Sleep and Associated Events using the 1B 4% hypopnea rule. Capnography was recorded if indicated by physician order. RESULTS: 1. The AHI is 36 events per hour. 2. She had 1 obstructive apnea and 67 hypopneas. 3. She slept supine the entire time. 4. The minimum oxygen saturation was 87%. The average was 93%. 5. The diagnostic portion of the study started at 10:32 p.m. and ended at 12:27 a.m. Total sleep time was 113 minutes. 6. Sleep onset latency was 2 minutes. REM sleep was not seen. 7. She had 2 minutes of stage I, 46 minutes of stage II and 66 minutes of stage III. No REM sleep was seen. 8. The arousal index was 24.9 events per hour. 9. She had 157 leg movements per hour. This included 78 periodic leg movements per hour, but these only caused 3.2 arousals per hour. 10. The titration portion of the study started at 12:27 a.m. and ended at 5:42 a.m. Total sleep time was 303 minutes. 11. During the titration, she had 2 minutes of stage I, 70 minutes of stage 2, 135 minutes of stage III and 96 minutes of stage REM. She slept supine throughout this portion of the study as well. 12. She was tried on BiPAP at pressures ranging from a low of 7/5 to a size 14/8. She studied at 14/8 for 146 minutes including 51 minutes of stage REM. The RDI was 10.7 with a minimum oxygen saturation of 90%. IMPRESSION: This split-night sleep study reveals: 1. The patient has severe obstructive sleep apnea. Her index is 36 respiratory events per hour with a minimum oxygen saturation of 87%. 2. During the second half of the night, she was tried on BiPAP and was much improved with BiPAP at 14/8. She did have supine REM sleep at that pressure and also at 10/6. She may occasionally need higher pressures, but for the most part was controlled with BiPAP at any pressure between 10/6 and 14/8. 3. Note that she had numerous leg movements early in the night, but these all disappeared as soon as she was started on positive airway pressure therapy. 4. She did best with an Shruti View full face mask, size medium. RECOMMENDATIONS: 1. The patient will be asked to start auto BiPAP with an IPAP maximum of 18, EPAP minimum of 6 and pressure support of 4-6. 2. She will be seen in followup at the [facility]. Paresh Jaime M.D. Dict: 02/11/2019 17:12:55 Trans: 02/11/2019 21:34:50 CC1: Paresh Jaime M.D. CC2: Lino Solis M.D. CC3: Haleigh Stahl M.D. CC4: Cecilio Schultz MD CC5: Ronaldo Kong M.D. Electronically signed by [facility] Conversion [employer] Plant Supervisor Cerner at 02/03/2023 4:48 PM CDT documented in this encounter Plan of Treatment Upcoming Encounters Date Type Department Care Team (Late st Contact Info) Description 12/26/2025 10:00 AM EDT Office Visit [facility] Neurology - [address] [place] [id number] Lino Solis MD [address] [facility] [address] [place] [address] documented as of this encounter Visit Diagnoses Not on filedocumented in this encounter Care Teams Lan Analyst Relationship Specialty Start Date End Date Ronaldo Kong MD [address] [place] [address] [place] [address] PCP - General General Internal Medicine 12/24/2210/19 Tanna Finch APRN [address] [place] [phone] PCP - General Nurse Practitioner 11/04/24 documented as of this encounter
--- OUTSIDE RECORDS SUMMARY | 2025-09-22 10:04 | XMS_ITS | Encounter Summary ---
Author Organization [employer] ([place], [place], [place], [place], [place]) Address [address] [place] [address] Care Team Providers Care Curing Bin Operator Name Role Phone Ronaldo Kong MD Primary Care Provider [phone] Tanna Finch APRN Primary Care Provid er Encounter Details Date Type Department Care Team (Late st Contact Info) Description 05/06/2019 Transcribed Document [facility] Family Medicine [address] [place] [address] ProviderJorje MD [address] [place] [address] Social History Tobacco Use Types Packs/Day Years Used Date Smoking Tobacco: Never Assessed Comments Unknown Sex and Gender Information Value Date Recorded Sex Assigned at Female 04/17/2022 4:47 PM CDT Legal Sex Female 3:02 PM CDT Gender Identity Female 04/17/2022 4:47 PM CDT Sexual Orientation Not on file documented as of this encounter Miscellaneous Notes * Cerner Conversion Note - Jorje Hammonds MD - 05/06/2019 3:11 PM CDT Provider Notification Entered On: 05/06/2019 15:12 EDT Performed On: 05/06/2019 15:11 EDT by CALLI HANKS Provider Notification Provider Notified of Concerns/Results : Critical value result, Lab result Critical Result Details : lactic acid Critical Result Read Back and Verified : Yes Provider Notified Name : LIGIA FUNK MD Provider Notified Time : 05/06/2019 15:12 EDT CALLI HANKS - 05/06/2019 15:11 EDT Electronically signed by Tanika Ruvalcaba Conversion Independent Living Advisor Cerner at 02/03/2023 4:40 PM CDT documented in this encounter Plan of Treatment Upcoming Encounters Date Type Department Care Team (Late st Contact Info) Description 12/26/2025 10:00 AM EDT Office Visit [facility] Neurology - [address] [employer] [facility] [address] [place] [address] Lino Solis MD [address] [place], [place] [address] [facility] [address] [place] [address] documented as of this encounter Visit Diagnoses Not on filedocumented in this encounter Care Teams Curing Bin Operator Relationship Specialty Start Date End Date Ronaldo Kong MD [address] [place] [address] PCP - General General Internal Medicine 12/24/2210/19 Tanna Finch APRN [address] [place] [phone] PCP - General Nurse Practitioner 11/04/24 documented as of this encounter
--- NOTE | 2025-09-22 10:45 | ECG_ITS ---
APPROVED REPORT Exam: Resting ECG HR:84 bpm ECG Measurements Heart Rate 84 AXES WA 194 P 68 QRSd 87 QRS 6 QT 386 T 56 QTc 427 Conclusion SINUS RHYTHM NORMAL ECG UNCONFIRMED REPORT Electronically signed by : Mack Pennington MD 09/23/2025 08:41:38
[2025-09-22 11:02] LABS: Hematocrit 37.5 % (37.0-47.0); Hemoglobin 12.3 g/dL (12.2-16.2); Immature Granulocytes % 0.2 %; Mean Corpuscular HGB Conc 32.8 g/dL (31.8-35.4); Mean Corpuscular Hemoglobin 30.8 pg (27.0-31.2); Mean Corpuscular Volume 94.0 fl (81-99); Nucleated Red Blood Cells % 0 %; Platelet Count 249 K/mm3 (142-424); Red Blood Count 3.99 M/mm3 (4.20-5.40); Red Cell Distribution Width-SD 45.1 fL; White Blood Count 8.3 K/mm3 (4.8-10.8)
[2025-09-22 11:05] LABS: Chloride 108 mmol/L (98-107); Potassium 3.7 mmoL/L (3.5-5.1); Sodium 145 mmol/L (136-145)
[2025-09-22 11:08] LABS: Blood Urea Nitrogen 12 mg/dl (7-17); Creatinine Clearance Estimated 69 mL/min (50-200); Creatinine,Serum 0.90 mg/dl (0.52-1.04); Estimated Glomerular Filt Rate 65 ml/min (>60); GFR (African American) 79 ML/MIN (>60)
[2025-09-22 11:09] LABS: Anion Gap 16.7 mEq/L (5-15); Calcium 8.8 mg/dl (8.4-10.2); Carbon Dioxide 24 mmol/L (22.0-30.0); Glucose 162 mg/dl (74-100)
== END 2025-09-22 23:59 | disposition home or self-care (01) ==
LOC: PREOP 09:57
PROVIDERS: Visit Provider Anesthesiology
DX: Z01.810 Encounter for preprocedural cardiovascular examination (principal); Z01.812 Encounter for preprocedural laboratory examination
CPT/HCPCS: 80048; 85025; 93005

== ENCOUNTER 2025-09-29 06:15 | Day surgery (SDC) | payer OTHER, SELFPAY ==
[2025-09-22 14:02] VITALS: BMI 41.8
[2025-09-29] VITALS (7 sets, daily range): BP systolic 100–164; BP diastolic 59–101; PULSE 71–76; RESP 16–18; TEMP 36.2–36.6; O2SAT 97–100; BMI 41.8
[2025-09-29 06:48] LABS: POC Glucose,Bedside 114 gm/dL (70-110)
[2025-09-29] MEDS: LACTATED RINGERS 1000ML 1,000 ML 25 ML IV (06:48)
--- NOTE | 2025-09-29 07:12 | EXP.ANES.CKL ---
[facility] Disclaimer: The information contained in this section may have been updated after the patient was seen, as this information can be updated by other users. Medical History Knee arthropathy Hip replacement planned Pacemaker Pain of intrathecal infusion pump pocket after insertion Seizure disorder Sleep apnea Seizure HLD (hyperlipidemia) HTN (hypertension) Hx of cardiac pacemaker Diabetes mellitus, type 2 Anxiety Depression Asthma Congestive heart failure Dizziness Surgical History History of cholecystectomy History of spinal fusion History of hysterectomy History of right hip replacement History of left hip replacement History of knee replacement left Family History Other Family history of diabetes mellitus type II Family history of hyperlipidemia Family history of hypertension Family history of myocardial infarction Social History (Updated 09/29/25 @ 06:47 by Zeynep Kellogg RN) Smoking Status: Current every day smoker (1PPD.) tobacco type: cigarettes packs per day: 1 years smoked: 30 alcohol intake: never substance use type: denies use current occupational status: disabled Travel in the last 8 weeks?: None household members: none housing: house lives independently: Yes marital status: single education level: high school current occupational exposures/hazards: No caffeine: Yes special lai needs: No agree to transfusion: No do you feel safe at home: Yes victim of physical abuse: No victim of emotional abuse: No victim of sexual abuse: No would you like helpful sources: No Have you lived/traveled outside US in past 30 days?: No Contact w/someone who lives/traveled outside US past 30 days?: No Exposure to someone with infectious disease in past 14 days?: No Do you have a fever (greater than 100.4 F or 38 C)?: No Have you tested positive for COVID-19?: No Exposed to someone with COVID-19 in past 14 days?: No Do you have a sore throat?: No Do you have a cough?: No Do you have any weakness?: No Are you experiencing any nausea/vomitting?: Yes Do you have any diarrhea?: No Are you experiencing any unusual bleeding?: No Do you have any muscle aches/pain?: No Do you have any abdominal pain?: No Are you experiencing loss of taste or smell?: No [facility] Anesthesia Checklist Patient Identification Patient Identification: Arm Band and Verbal (Name & ) Structural Data Admitted From: Home Planned Operative Procedure/s: SCS Placement Consent for Planned Operative Procedure(s) Verified: Yes Verified Documents: Surgical Consent NPO Status Verified Time NPO: 00:00 Chart Verification Results Verified: ECG Additional verifications Patient : No Anesthesia Reactions: No Hx Blood Transfusions: No Blood Transfusion Reaction: No Airway Assessment Mallampati Score:: Class II C-Spine Mobility Assessed: Yes TMJ Mobility Assessed: Yes Dentition: Edentulous Neurological Assessment Level of Consciousness: Awake, Alert and Appropriate Hx Seizures: No Numbness or tingling in extremities: No Anesthesia Plan Anesthesia Risk discussed: Yes Anesthesia Plan: Verified ASA Class: III Anesthesia Type: MAC
[2025-09-29] MEDS: LIDOCAINE 1% W/EPI 1:100,000 20ML VIAL 20 ML ×2 (08:12)
--- NOTE | 2025-09-29 08:52 | EXP.HP ---
History of Present Illness *Admission Date: 09/29/25 *Reason for visit:: Spinal cord stimulator trial *History of present illness: This patient is a pleasant 55-year-old white female who presents for spinal cord stimulator trial for degenerative disease of lumbar spine lumbar radiculopathy symptoms. [facility] Disclaimer: The information contained in this section may have been updated after the patient was seen, as this information can be updated by other users. Medical History Knee arthropathy Hip replacement planned Pacemaker Pain of intrathecal infusion pump pocket after insertion Seizure disorder Sleep apnea Seizure HLD (hyperlipidemia) HTN (hypertension) Hx of cardiac pacemaker Diabetes mellitus, type 2 Anxiety Depression Asthma Congestive heart failure Dizziness Surgical History History of cholecystectomy History of spinal fusion History of hysterectomy History of right hip replacement History of left hip replacement History of knee replacement left Family History Other Family history of diabetes mellitus type II Family history of hyperlipidemia Family history of hypertension Family history of myocardial infarction Social History (Updated 09/29/25 @ 06:47 by Zeynep Kellogg RN) Smoking Status: Current every day smoker (1PPD.) tobacco type: cigarettes packs per day: 1 years smoked: 30 alcohol intake: never substance use type: denies use current occupational status: disabled Travel in the last 8 weeks?: None household members: none housing: house lives independently: Yes marital status: single education level: high school current occupational exposures/hazards: No caffeine: Yes special lai needs: No agree to transfusion: No do you feel safe at home: Yes victim of physical abuse: No victim of emotional abuse: No victim of sexual abuse: No would you like helpful sources: No Have you lived/traveled outside US in past 30 days?: No Contact w/someone who lives/traveled outside US past 30 days?: No Exposure to someone with infectious disease in past 14 days?: No Do you have a fever (greater than 100.4 F or 38 C)?: No Have you tested positive for COVID-19?: No Exposed to someone with COVID-19 in past 14 days?: No Do you have a sore throat?: No Do you have a cough?: No Do you have any weakness?: No Are you experiencing any nausea/vomitting?: Yes Do you have any diarrhea?: No Are you experiencing any unusual bleeding?: No Do you have any muscle aches/pain?: No Do you have any abdominal pain?: No Are you experiencing loss of taste or smell?: No Other Medical History Have you received the Flu Vaccine for this season: No Have you received the Pneumonia Vaccine: Yes Review of Systems Review of Systems Review of systems:: pertinent systems reviewed and negative unless documented below Meds Home Medications and Allergies Home Medications ?Medication ?Instructions ?Recorded ?Confirmed ?Type atorvastatin 80 mg tablet 80 mg PO HS Cholesterol 05/25/21 09/29/25 History carvedilol 6.25 mg tablet 12.5 mg PO BID blood pressure 05/25/21 09/29/25 History ropinirole 0.25 mg tablet 2 mg PO HS RLS 05/25/21 09/29/25 History zonisamide 100 mg capsule 100 mg PO TID migraines/seizures 05/25/21 09/29/25 History albuterol sulfate 90 mcg/actuation 2 inh inhalation DIRECTED . 05/27/21 09/29/25 History aerosol inhaler (ProAir HFA) spironolactone 25 mg tablet 25 mg PO DAILY Fluid 06/07/21 09/29/25 History cyclobenzaprine 10 mg tablet 10 mg PO BID PRN Muscle Spasm #20 11/11/22 09/29/25 Rx tabs morphine (PF) 1 mg/mL injection 0.1 mg continuous intrathecal 02/20/23 09/29/25 History solution infusion CONT Pain baclofen 10 mg tablet 10 mg PO QID Pain #120 tabs 08/10/24 09/29/25 Rx methocarbamol 500 mg tablet See Rx Instructions .Route 05/26/25 09/29/25 Rx .COMPLEX #240 tabs tramadol 50 mg tablet 50 mg PO BID PRN pain #28 tabs 09/04/25 09/29/25 Rx aspirin 81 mg chewable tablet 81 mg PO DAILY 09/22/25 09/29/25 History cetirizine 10 mg tablet 10 mg PO DAILY 09/22/25 09/29/25 History desvenlafaxine succinate 50 mg 50 mg PO DAILY 09/22/25 09/29/25 History tablet,extended release 24 hr dexlansoprazole 60 mg 60 mg PO DAILY 09/22/25 09/29/25 History capsule,biphase delayed release fluticasone fur. 100 mcg-umeclid 1 inh inhalation DAILY 09/22/25 09/29/25 History 62.5 mcg-vilant 25 mcg inhalat.powder (Trelegy Ellipta) furosemide 20 mg tablet 20 mg PO DAILY 09/22/25 09/29/25 History galcanezumab-gnlm 120 mg/mL 120 mg SQ MONTHLY 09/22/25 09/29/25 History subcutaneous pen injector (Emgality Pen) lamotrigine 200 mg tablet,extended 200 mg PO DAILY 09/22/25 09/29/25 History release 24 hr linaclotide 72 mcg capsule 72 mcg PO DAILY 09/22/25 09/29/25 History (Linzess) nystatin 100,000 unit/gram topical 1 applic topical DAILY 09/22/25 09/29/25 History powder ondansetron 4 mg disintegrating 4 mg PO Q6H 09/22/25 09/29/25 History tablet prochlorperazine maleate 10 mg 10 mg PO BID PRN Nausea 09/22/25 09/29/25 History tablet quetiapine 50 mg tablet 50 mg PO HS 09/22/25 09/29/25 History rimegepant 75 mg disintegrating 75 mg PO NEEDED PRN migraines 09/22/25 09/29/25 History tablet (Nurtec ODT) semaglutide 1 mg/dose (2 mg/1.5 0.5 mg SQ WEEKLY 09/22/25 09/29/25 History mL) subcutaneous pen injector New Prescriptions to Start Prescriptions: Allergies Allergy/AdvReac Type Severity Reaction Status Date / Time meclizine Allergy Intermediate Unknown Verified 09/29/25 06:33 allergy reaction doxycycline Allergy Mild Vomiting Verified 09/29/25 06:33 diphenhydramine (From Allergy Unknown Unknown Verified 09/29/25 06:33 BENADRYL) allergy reaction Tetanus Vaccines and Toxoid Allergy Unknown Unknown Verified 09/29/25 06:33 (TETANUS VACCINES & TOXOID) allergy reaction adhesive tape Allergy Rash Verified 09/29/25 06:33 Exam Data for Last 24 hours Vital signs and Labs for Last 24 Hours: Temp Pulse Resp BP Pulse Ox O2 Del Method 97.2 F L 71 16 126/68 98 Room Air 09/29/25 06:37 09/29/25 06:37 09/29/25 06:37 09/29/25 06:37 09/29/25 06:37 09/29/25 06:37 Laboratory Results - last 24 hr 09/29/25 06:39: POC Glucose 114 H I & O for Last 24 hours: Intake & Output 09/26/25 09/27/25 09/28/25 09/29/25 11:59 11:59 11:59 11:59 Weight 267 lb *Routine HEENT Exam Head: Present normocephalic Eye: Present EOMI and PERRL ENT: Present mucous membranes moist *Routine Respiratory Exam Respiratory: Present CTA bilaterally *Routine Cardiovascular Exam Cardiovascular: Present RRR, Normal S1 and Normal S2 *Routine Abdominal Exam Abdominal: Present soft *Routine Rectal Exam Rectal:: deferred *Routine Genitalia Exam Genitalia:: deferred Assessment and Plan *Assessment and plan (1) Degenerative joint disease (DJD) of lumbar spine: Status: Acute Qualifiers: Spinal osteoarthritis complication: with radiculopathy Qualified Code(s): M47.26 - Other spondylosis with radiculopathy, lumbar region Category: Medical Code(s): M47.816 - Spondylosis without myelopathy or radiculopathy, lumbar region (2) Lumbar radiculopathy, chronic: Status: Acute Category: Medical Code(s): M54.16 - Radiculopathy, lumbar region Plan Spinal cord stimulator trial
--- NOTE | 2025-09-29 08:56 | P.OP_ITS ---
Date of procedure: 09/29/25 Pre-op Diagnosis:: Degenerative disease of lumbar spine with lumbar radicular Post-op Diagnosis:: same Procedure performed:: Spinal cord stimulator trial Surgeon:: Marck Banerjee MD ERGONOMIST:: Harjinder Eaton Anesthesia: local Estimated blood loss (mL): 1 Clinical Note:: This patient is a pleasant 55-year-old white female who we are treating for degenerative disease of lumbar spine with lumbar radiculopathy symptoms. She has a intrathecal pain pump in place which is not helping her pain symptoms. She has failed all previous conservative therapy including injections, oral medications, physical therapy and she is a surgical candidate. She has had a successful psychological evaluation. She presents for spinal cord stimulator trial today. Operative findings:: None Operative note:: Informed consent was obtained risk and benefits of the procedure were explained to the patient. Patient was taken the operating room placed prone on the procedure table. She was prepped and draped in sterile C-arm fluoroscopy was used to view the L1-L2 interspace. The skin and subcutaneous tissues were anesthetized using lidocaine. A 14-gauge epidural needle was inserted and advanced into the L1-L2 interspace. After confirmation needle in the epidural space a stimulator lead was inserted and advanced very easily to the T6-T7-T8 vertebral body. A second needle was inserted into an L2 interspace and then again after confirmation of needle placement in the epidural space a second lead was inserted and advanced again to the T6-T7-T8 interspace. Leads were left and right of midline. They were posterior. We did test on the table with good stimulation in all areas of pain. The leads were secured in place. The patient was taken to recovery and programming with [employer] pharmaceutical specialty representative Patient was discharged home neurologic With good relief of pain symptoms Will follow-up with this patient in 1 week for lead pull. This trial. If s uccessful we will plan on permanent placement of her spinal cord stimulator. We may consider removing her pain pump at that time. Condition: stable Disposition: PACU Complications:: None
== END 2025-09-29 09:40 | disposition home or self-care (01) ==
PROVIDERS: Visit Provider Anesthesiology
PROC: (CPT 63650; principal; 2025-09-29 07:30)
DX: M47.26 Other spondylosis with radiculopathy, lumbar region (principal); F41.9 Anxiety disorder, unspecified; J45.909 Unspecified asthma, uncomplicated; I11.0 Hypertensive heart disease with heart failure; I50.9 Heart failure, unspecified; F32.A Depression, unspecified; E11.9 Type 2 diabetes mellitus without complications; E78.5 Hyperlipidemia, unspecified; M17.12 Unilateral primary osteoarthritis, left knee; Z95.0 Presence of cardiac pacemaker; G40.909 Epilepsy, unspecified, not intractable, without status epilepticus; G47.30 Sleep apnea, unspecified; Z90.49 Acquired absence of other specified parts of digestive tract; Z90.710 Acquired absence of both cervix and uterus; Z96.652 Presence of left artificial knee joint; Z96.643 Presence of artificial hip joint, bilateral; Z98.1 Arthrodesis status; Z83.3 Family history of diabetes mellitus; Z82.49 Family history of ischemic heart disease and other diseases of the circulatory system; Z83.42 Family history of familial hypercholesterolemia; F17.210 Nicotine dependence, cigarettes, uncomplicated; Z88.8 Allergy status to other drugs, medicaments and biological substances; Z88.1 Allergy status to other antibiotic agents; Z88.7 Allergy status to serum and vaccine; Z91.048 Other nonmedicinal substance allergy status; Z79.85 Long-term (current) use of injectable non-insulin antidiabetic drugs; Z79.899 Other long term (current) drug therapy; Z79.82 Long term (current) use of aspirin
CPT/HCPCS: 63650; 82962; 96374; C1778; J2004; J7120

== ENCOUNTER 2025-10-18 09:50 | Outpatient (CLI) | payer OTHER, SELFPAY ==
--- OUTSIDE RECORDS SUMMARY | 2024-05-30 08:20 | XMS_ITS ---
Author Organization [facility] . Address [address] [place] [address] Care Team Providers Care Software Configuration Analyst Name Role Phone Ronaldo Kong Primary Care Provider Unavailabl Harpreet Pastrana Unavailable [phone] Jennie Royal Unavailable Unavailable Encounters Encounter Location Date Provider Diagnosis [facility] [address] [place] [address] 05/30/2024 Harpreet Castaneda Plan Of Treatment No Information Progress Notes * Frannie NUÑEZDOB:[birth year] (55 yo F)Acc No.[id number]:05/30/2024 Progress Note Patient: Frannie ZAVALA Provider: Denzel Castaneda MD :1970 A ge:53 Y S ex:Female Date:05/30/2024 Address:[address], [id number] Pcp:Ronaldo Kong Subjective: * Chief Complaints: * * Medical History: Objective: * Vitals: Assessment: Plan: * Treatment: * * Electronic signature of Cici Castaneda MD on 10/18/2025 at 08:53 AM ANESTHESIOLOGY PHYSICIAN ASSISTANT Sign off status: Pending * Provider: Denzel Castaneda MD Date: 0 05/30/2024 Generated for Charlottei ng/Faraineg/eTransmitting on: 1 08:53 AM ANESTHESIOLOGY PHYSICIAN ASSISTANT
--- OUTSIDE RECORDS SUMMARY | 2025-05-23 08:20 | XMS_ITS ---
Author Organization [facility] Address [address] [facility] [address] [place] [address] Phone [phone] Care Team Providers Care Sprinkling System Installer Name Role Phone Harpreet Castaneda M.D. [phone] Medications Medication SIG (Take, Route, Frequency, Duration) Notes Start Date End Date Diagnosis (ICD Code) Status Albuterol Sulfate HFA 108 (90 Base) MCG/ACT Aerosol Solution 1 puff as needed Inhalation every 4 hrs Not-Taking Zonisamide 100 MG Capsule 1 capsule Orally Three times daily Active Carvedilol 12.5 MG Tablet 1 tablet with food Orally Twice a day Active Spironolactone 50 MG Tablet 1 tablet Orally Once a day Active rOPINIRole HCl 2 MG Tablet 2 tablet 1 to 3 hours before bedtime Orally Once a day Active Emgality 120 MG/ML Solution Prefilled Syringe 1 ml Subcutaneous; Duration: 30 day(s) Active ARIPiprazole 5 MG Tablet 1 tablet Orally Once a day Active Nurtec 75 MG Tablet Disintegrating 1 tablet on the tongue and allow to dissolve Orally; Duration: 30 days As needed Active Pantoprazole Sodium 40 MG Tablet Delayed Release 1 tablet Orally Once a day Active Baclofen 10 MG Tablet 1 tablet Orally four times a day Active buPROPion HCl ER (Smoking Det) 150 MG Tablet Extended Release 12 Hour 1 tablet in the morning Orally Once a day; Duration: 30 day(s) Active Rosuvastatin Calcium 40 MG Tablet 1 tablet Orally Once a day 11/22/2024 Active ZyrTEC Allergy 10 MG Tablet 1 tablet Orally Once a day; Duration: 30 day(s) Active Social History Sex Observation Social History Observation Description Sex Observation Female Encounters Date Time Type Facility Location Provider Diagnosis 05/23/2025 08:20 AM Office Visit [facility] [address] [place] [address] Harpreet Castaneda Plan Of Treatment Next Appt Details Provider Name:Harpreet Castaneda, 12/14/2025 11:20:00 AM, [address], [place], [address], Medical (General) History Medical History History ICD Code Anemia Avitaminosis B 12 deficiency Carotid artery stenosis CHF 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 COPD Degenerative cervical disc Depression Diastolic dysfunction DJD Edema Hypertension care home current use of diuretic History of Mack Ronak Disease Brain tumor D49.6 Type 2 diabetes mellitus E11.9 Surgical History Surgery Date(Month/Year) Hip replacement Hysterectomy Knee replacement Neck Surgery Shoulder arthroscopy partial hystorectomy 09/23/21 oral surgery 10/2021 abdominal drain 11/2021 C4 and C5 fused 12/2021 Progress Notes * Frannie NUÑEZDOB:[birth year] (55 yo F)Acc No.[id number]:05/23/2025 progress note Patient: Frannie Nuñez Provider: Harpreet Castaneda MD :1970 Age:54 Y Sex:Female Date:05/23/2025 [facility] [address] [facility] Subjective: * Chief Complaints: * Medications: TakingRosuvastatin Calcium 40 MG Tablet 1 tablet Orally Once a day Rosuvastatin Calcium 40 MG Tablet 1 tablet Orally Once a day [id number] HCl ER (Smoking Det) 150 MG Tablet Extended Release 12 Hour 1 tablet in the morning Orally Once a day buPROPion HCl ER (Smoking Det) 150 MG Tablet Extended Release 12 Hour 1 tablet in the morning Orally Once a day 446118VahUHX Allergy 10 MG Tablet 1 tablet Orally Once a day ZyrTEC Allergy 10 MG Tablet 1 tablet Orally Once a day 704105Zgkiebwu 120 MG/ML Solution Prefilled Syringe 1 ml Subcutaneous Emgality 120 MG/ML Solution Prefilled Syringe 1 ml Subcutaneous 728574Eockbe 75 MG Tablet Disintegrating 1 tablet on the tongue and allow to dissolve Orally As neededNurtec 75 MG Tablet Disintegrating 1 tablet on the tongue and allow to dissolve Orally As dvyqtl293662JLBRsrlllfqn 5 MG Tablet 1 tablet Orally Once a day ARIPiprazole 5 MG Tablet 1 tablet Orally Once a day 694900Aekvvxme 10 MG Tablet 1 tablet Orally four times a day Baclofen 10 MG Tablet 1 tablet Orally four times a day 678573Okwrpmibnkov Sodium 40 MG Tablet Delayed Release 1 tablet Orally Once a day Pantoprazole Sodium 40 MG Tablet Delayed Release 1 tablet Orally Once a day 365860Hpcrfpjgdb 12.5 MG Tablet 1 tablet with food Orally Twice a day Carvedilol 12.5 MG Tablet 1 tablet with food Orally Twice a day 840744Mikbwtwmgv 100 MG Capsule 1 capsule Orally Three times daily Zonisamide 100 MG Capsule 1 capsule Orally Three times daily 366702vXBOYAYxnj HCl 2 MG Tablet 2 tablet 1 to 3 hours before bedtime Orally Once a day rOPINIRole HCl 2 MG Tablet 2 tablet 1 to 3 hours before bedtime Orally Once a day 314185Onmtmwkvvsuyhx 50 MG Tablet 1 tablet Orally Once a day Spironolactone 50 MG Tablet 1 tablet Orally Once a day 938733Xglpee Rosuvastatin Calcium 40 MG Tablet 1 tablet Orally Once a day Taking buPROPion HCl ER (Smoking Det) 150 MG Tablet Extended Release 12 Hour 1 tablet in the morning Orally Once a day Taking ZyrTEC Allergy 10 MG Tablet 1 tablet Orally Once a day Taking Emgality 120 MG/ML Solution Prefilled Syringe 1 ml Subcutaneous Taking Nurtec 75 MG Tablet Disintegrating 1 tablet on the tongue and allow to dissolve Orally As neededTaking ARIPiprazole 5 MG Tablet 1 tablet Orally Once a day Taking Baclofen 10 MG Tablet 1 tablet Orally four times a day Taking Pantoprazole Sodium 40 MG Tablet Delayed Release 1 tablet Orally Once a day Taking Carvedilol 12.5 MG Tablet 1 tablet with food Orally Twice a day Taking Zonisamide 100 MG Capsule 1 capsule Orally Three times daily Taking rOPINIRole HCl 2 MG Tablet 2 tablet 1 to 3 hours before bedtime Orally Once a day Taking Spironolactone 50 MG Tablet 1 tablet Orally Once a day Not-TakingAlbuterol Sulfate HFA 108 (90 Base) MCG/ACT Aerosol Solution 1 puff as needed Inhalation every 4 hrs Albuterol Sulfate HFA 108 (90 Base) MCG/ACT Aerosol Solution 1 puff as needed Inhalation every 4 hrs 829247Jaf-Kmrtvu Albuterol Sulfate HFA 108 (90 Base) MCG/ACT Aerosol Solution 1 puff as needed Inhalation every 4 hrs * Electronic signature of Cici Castaneda M.D. on 10/18/2025 at 09:53 AM EST Sign off status: Pending * Provider: Harpreet Castaneda MD Date: 05/23/2025 Generated for Cayla james/Linda/Reina on: 10/18/2025 09:53 AM EST
--- OUTSIDE RECORDS SUMMARY | 2025-08-21 13:30 | XMS_ITS | Encounter Summary ---
Author Organization [employer] ([place], [place], [place], [place], [place]) Address [address] [place] [address] Care Team Providers Care Inverform Machine Operator Name Role Phone Tanna Finch BONE GRINDER Primary Care Provid er Reason for Referral * Speech Therapy (Routine) - New Request Specialty Diagnoses / Procedures Referred By Michael yao Referred To Contact Speech Pathology / Speech Therapy Diagnoses Cognitive communication deficit Lino Solis MD [address] [place] [address] [address] [place] [address] Phone: tel: fax: Kristina Rivera [facility] Referral ID Status Reason Start Date Expiration Date V isits Requested Visits Authorized [id number] New Request 08/21/2025 08/21/2026 1 1 * Consultation (Routine) - Closed Specialty Diagnoses / Procedures Referred By Michael yao Referred To Contact Behavioral Health Diagnoses Cognitive change Lino Solis MD [address] [place] [address] [address] [place] [address] Phone: tel: fax: [facility] [address], [address] [place] [address] Phone: tel: fax: Referral ID Status Reason Start Date Expiration Date V isits Requested Visits Authorized [id number] Closed Specialty Services Required 08/21/2025 08/21/2026 1 1 * Surgical (Routine) - Closed Specialty Diagnoses / Procedures Referred By Michael t Referred To Contact Orthopedic Surgery Diagnoses Right carpal tunnel syndrome Lino Solis MD [address] [place] [address] [address] [address] [place] [address] Phone: tel: fax: [facility] [address] [place] [address] Phone: tel: fax: Referral ID Status Reason Start Date Expiration Date V isits Requested Visits Authorized [id number] Closed Specialty Services Required 08/21/2025 08/21/2026 1 1 Reason for Visit * Reason Comments Fibromyalgia Encounter Details Date Type Department Care Team (Late st Contact Info) Description 08/21/2025 1:30 PM EST Office Visit [facility] Neurology - [facility] [address] [place] [address] [address] [place] [id number] Lino Solis MD [address] [place] [address] [address] [place] [address] Fibromyalgia (Primary Dx); Partial seizure disorder (HCC); [...] Date Joseph rded Speak language other than Comoran at home Not on file 11/06/2023 Want [...] 1:46 PM EDT documented in this encounter Functional Status * BP Answer Date of Assessment Author 142/90 08/21/2025 1:23 PM Rosanna Soliz CMA * Pulse Answer Date of Assessment Author 78 08/21/2025 1:23 PM Rosanna Soliz CMA * Weight Answer Date of Assessment Author 42708/21/2025 1:23 PM Rosanna Soliz CMA * Shock Index Answer Date of Assessment Author 0.55 08/21/2025 1:23 PM Rosanna Soliz CMA * BP Answer Date of Assessment Author 142/90 08/21/2025 1:23 PM Rosanna Soliz CMA * Pulse Answer Date of Assessment Author 78 08/21/2025 1:23 PM Rosanna Soliz CMA documented as of this encounter Mental Status * BP Answer Entry Date Author 142/90 08/21/2025 1:23 PM Rosanna Soliz CMA * Pulse Answer Entry Date Author 78 08/21/2025 1:23 PM Rosanna Soliz CMA * Weight Answer Entry Date Author 4272 08/21/2025 1:23 PM Rosanna Soliz CMA * Shock Index Answer Entry Date Author 0.55 08/21/2025 1:23 PM Rosanna Soliz CMA documented in this encounter Progress Notes * Lino Solis MD - 08/21/2025 1:30 PM EST [facility] Neurology [address] [facility], [address] [place] [address] Frannie Rosario Nuñez [address] [id number] 55 y.o. female Chief Complaint Patient presents with Fibromyalgia HPI: Fibromyalgia: The patient is being seen for a routine clinic follow-up of fibromyalgia. The patienthas been previously evaluated [facility], [place], [place] 2005. Past evaluation has included Cervical [...] has seen Dr. Zhu three times since 04.18.15 who did not feel surgery was necessary [...] could not get in to see a industrial truck operator, so she saw Dr. Banerjee with pain [...] on BiPAP (her sleep doctor is in [place], [place]). She has a pacemaker (July 2022), intrathecal morphine pain pump (2022), and a bladder stimulator(July 2023) in addition two hip replacements and bilateral knee replacements. Her urine drug screens are performed at [facility] for the intrathecal morphine pump. She started [...] failure) (HCC) COPD (chronic obstructive pulmonary disease) ([facility]) Depression Fibromyalgia Hyperlipidemia Hypertension Insomnia Irritable bowel syndrome Migraine Palpitations Paresthesia Restless leg syndrome Sleep apnea Constantino-Ronak disease ([facility]) Tremor Vertigo Past Surgical History: Past Surgical [...] Bilateral - Normal. Note: no ptosis, no Sara's sign, no Dion Justin pupil VII Facial: - Normal and symmetric facial muscles. Eye Movements: - PERRL. EOMI. Sensory: Intact to pinprick in all 4 extremities except decreased to pinprick 1/2 way to knees. Reflexes: 1+ (diminished) throughout. Musculoskeletal: Motor: Tone: Normal. Bulk: Normal. Strength: 5/5 in the arms and 4+/5 in both legs. Results: MRI L spine w/o, [facility], 12.15.14: No evidence of significant spinal or neuroforaminal compromise. No evidence of acute osseous abnormality. Labs, Dr. Ronaldo Kong's office, 15: A1c 6.0%. B12 357. BMP nl. Labs, [facility], 03.15.15: CK 207 (26 - 192). ESR 53. TSH 1.210. Serum ZARI studies show no evidence of monoclonal gammopathy. No significant abnormalities in the serum protein pattern. MRI brain w/o, [facility], 03.28.15: Scattered white matter changes on FLAIR which are nonspecific. Moderate left maxillary sinus disease with a periapical cyst vs mucous retention cyst. A small amount of fluid in the right mastoid air cells suggests early / mild mastoiditis. MRI C spine w/o, [facility], 03.28.15: Degenerative and post-surgical changes potentiated by [...] will see her back after that. EMG/NCS, [facility], 04.18.15: All 4 limbs tested. She had mild changes suggestive of bilateral chronic C7 radiculopathies but otherwise the study was normal. Ms. Nuñez was seen by Dr. Kumari in March 2015 who noted the mucocele of the sinus lining and that it was not inflamed; he did not feel it contributed to her current symptomatology. Labs, [facility], 3.8.16: CMP nl. CBC nl. B12 600. HC 9. MMA <0.20. TSH 2.650. Vit D 13. ESR 33. CK 119. Labs, [facility], 03.31.16: Vit D 42.6. MRI L spine w/o, E, 16: Mild degenerative changes without central canal or neural foraminal stenosis. Reviewed on PACS 28.16. Ms. Nuñez was seen at [facility] to 07/05/2017 and the impression was keratoconjunctivitis siccaof both eyes due to decreased tear production; hyperopia of both eyes with astigmatism and presbyopia was also noted. Temporary plugs were inserted bilaterally. Labs, [facility], 12/23/2016: CMP normal. Vitamin D 26. CBC [...] radicular history however. CT brain without contrast, [facility], 01/25/2017: No acute findings. No abnormal density is seen; ventricles are normal; there is no hemorrhage; and there is no mass effect. CT C-spine without contrast, [facility], 01/25/2017: No acute bony abnormality. Thereis moderate spondylosis and degenerative change with fusion seen at C6-7. No obvious bony spinal canal stenosis is present. MRI brain without contrast, [facility], 03/02/2017: 2 small foci ofincreased T2 signal in the right frontal white matter which may represent mild chronic ischemic gliotic changes, demyelination, or changes of vasculitis. When compared on CD versus the scan from [facility] 03/28/2015 via [employer] 04/01/2015 there were no [...] (11.2-15.7), platelets 372 (163-369). HIV 1/2 nonreactive. SECURITY ENGINEER autoantibody < 0.2. SCL 70 autoantibody < 0.2. SM autoantibody < 0.2. SSA autoantibody < 0.2. SSB autoantibody < 0.2. Aldolase 4.2. Myositis Annmarie 1 autoantibody panel negative. Phosphatidylserine antibodies,IgA, IgG, and IgM negative. DsDNA negative. Complement C3 and C4 normal. Rheumatoid factor < 20.BERTRAND < 1:40. EEG, [facility], 10/21/2017: This digital EEG [...] was seen by Dr. Paresh Jaime at [facility] 02/01/2019 who noted BRENDA, diagnosed in early [...] start auto BiPAP in follow-up at the [facility]. EMG/NCS, [facility], 04/14/2019: The right arm and leg were studied and there was no evidence of radiculopathy. Nerve conduction studies did reveal a mild right nonlocalizing peroneal neuropathy. Labs, [facility], September 2019: BMP normal except glucose 181. CMP normal except potassium 3.5. CBC normal except WBC 14.4 (normal 4- 10.5), hemoglobin 9.4 (normal 12.5-16), hematocrit 30.8% (normal 37-47%). Labs, [facility], 04/13/2020: CBC normal except WBC 12.6 (normal 4.5-11.5), hemoglobin 11.8 (normal 12-15.7), hematocrit 35.3% (normal 36-47%). CMP normal. Magnesium 2.1. Vitamin D 32.4. Urine drug screen negative for all substances tested. Labs, [facility], 10/08/2020: Vitamin D 25.8. , [facility], 02/27/2021: Westergren ESR 60. CK 104. B12 1822. MRI left shoulder, [facility], [facility], 03/26/2021: Mild AC joint arthrosis. These results were discussed with Ms. Nuñez in clinic 03/28/2021. MRI L-spine without contrast, [facility], [place], [place], 04/03/2021: There is a mildposterior annular [...] and mild bilateral facet spondylosis noted. EMG/NCS, [facility], 04/24/2021: The left arm and both [...] evidence of radiculopathy. MRI C-spine without contrast, [facility], 05/16/2021: Postsurgical changes with prior fusion [...] had 2 prior anterior cervical procedures. Labs, [facility], 01/24/2022: CBC normal except WBC 14.7 (normal 4.5-11.5). Urinalysis showed trace leukocyte Estrace, too numerous to count epithelial cells, trace bacteria. CMP normalexcept creatinine 1.01 (normal 0.57- 1), Glucose 133. MRI L-spine without contrast, [place], [place], 02/13/2022: Comparison 04/03/2021. Mild disc bulge at L4-5 without significant central canal stenosis or neuroforaminal narrowing. EMG/NCS, [facility], 03/21/2022: The left leg was studied [...] that procedure should be considered. Records from [facility]: Ms. Nuñez presented 06/25/2022 feeling lightheaded, weak, and dizzy and noted her blood sugar prior to arrival was 507; she said she felt like she was going to pass out. The blood sugar was rechecked in the emergency room and was 122; dehydration was suspected. ECG, [facility], 06/25/2022: Normal sinus rhythm. Cannot rule out anterior infarct. CT head without contrast, [facility], 06/25/2022: No acute intracranial abnormality. Duplex venous sonography of the left lower extremity, [facility], 06/25/2022: No evidence of DVT of the left lower extremity. Chest x-ray, [facility], 06/25/2022: No acute cardiopulmonary process. Labs, [facility], 06/25/2022: CMP normal except glucose 133, alkaline phosphatase 148 (normal 46-116). TSH 1.04. Free T4 1.07. CBC normal except WBC 13.3, hemoglobin 12 (normal 12.5-16), hematocrit 36.6% (normal 37- 47%). Troponin 4 (normal). MRI brain with and without contrast, [facility], 07/08/2022: Comparison to 04/07/2015. Mild [...] to the epilepsy clinic as needed. Labs, [facility], 11/30/2023: B12 705. Vitamin D 46.5. Free T4 1.26. TSH 1.180. A1c 7.1%. Labs, [facility], 12/28/2023: Serum immunofixation showed no monoclonality. Serum IgG, IgA, and IgM normal. CT chest low-dose cancer screening, [facility], 12/30/2022: Comparison 12/30/2022. Stable 6 mm nodule in the left upper lobe. Recommend 12- month LDCT follow-up. Labs, [facility], 04/15/2024: BMP abnormal for glucose 140, creatinine 1.35 (normal 0.57-1), eGFR 47. Labs, [facility], 07/18/2024: A1c 6.3%. MRI L-spine without contrast, [facility], 04/24/2025: Comparison March 2016. There is a broad based disc bulge at L3-4 with mild central canal stenosis. Disc bulges at other levels; mild bilateral neural foraminal narrowing was also noted at L3-4. These images were reviewed via PACS 04/24/2025. Ms. Nuñez was seen by Dr. Piper 04/27/2025 who noted severe lower back pain. An MRI L-spine at [facility] 04/24/2025 was reviewed and it was noted she sees Dr. Banerjee at [facility]; she has hada C4-5 and C6-7 ACDF in November 2021. Mild degenerative changes were noted throughout the L-spine but no evidence of instability, central or foraminal stenosis requiring surgery. She was encouraged to continue to follow-up with Dr. Banerjee. Neuropsychological Screening Evaluation, Tanna Lomeli, [facility], 09/05/2025: It is suspected the etiology of [...] diagnosed with fibromyalgia in 2004 at the [place], [place] branch of the [facility]. She also has lower back pain (December 2014 MRI L spine w/o negative) and was seen 03.15.15 for a re-evaluation for neck pain, back pain, numbness, tingling, and weakness. An MRI brain w/o at [facility] 03.28.15 showed nonspecific white matter changes (a [...] September 2019. An MRI C-spine performed at [facility] 05/16/2021 showed postsurgical changes with prior fusion at C5-6 through C7-T1. Moderate to severe canal stenosis was seen at C4-5 and she was referred to neurosurgery and seen by Dr. Piper 07/18/2021 who performed a C4-5 ACDF 12/13/2021. An MRI L-spine performed at [facility] in [place], [place] 02/13/2022 showed a mild disc bulge atL4-5 without significant central canal stenosis and she was seen by Dr. Piper with neurosurgery 04/03/2022 who did not feel surgery was warranted. An MRI brain with and without contrast performed at [facility] 07/08/2022 was compared to a prior scan 04/07/2015 and showed mild but progressive nonspecific white matter changes. She was diagnosed with diabetes in July 2022 and had a pacemaker placed. She was seen by Dr. Halina Kevin at in September 2022 and was not felt to have multiple sclerosis. An MRI L-spine was performed at [facility] 04/24/2025 and there is a broad-based disc bulge at L3-4 with mild central canal stenosis and disc bulges at other levels. She was seen by Dr. Piper with Neurosurgery04/27/2025 who reviewed the MRI L-spine and noted she sees Dr. Banerjee at [facility]. She was encouraged to continue follow-up [...] not to drive for 90 days by [facility] [employer] following a seizure. She will be seen back in 3 months. Including assessment, discussion, and documentation, 30 minutes total time were spent on this appointment. Lino Solis MD 08/21/2025 AL TECH AL TECH documented in this encounter Plan of Treatment Upcoming Encounters Date Type Department Care Team (Late st Contact Info) Description 11/01/2025 9:00 AM EST Office Visit [address] [phone] 12/26/2025 10:00 AM EDT Office Visit [address] [phone] Lino Solis MD [address] [place] [address] [address] [place] [address] Scheduled Referrals Name Type Priority Associated Diagnoses [...] deficit documented in this encounter Care Teams Inverform Machine Operator Relationship Specialty Start Date End Date Tanna Finch, OMAR [address] [place] [id number] PCP - General Nurse Practitioner 11/04/24 documented as of this encounter
--- OUTSIDE RECORDS SUMMARY | 2025-08-22 14:30 | XMS_ITS | Encounter Summary ---
Author Organization [facility] Address [address] [place] [address] Care Team Providers Care Manufacturing Development Engineer Name Role Phone System, Provider Not In Primary Care Provider Un available Reason for Visit * Reason Comments Edema Encounter Details Date Type Department Care Team (Latest Contact Info) Description 08/22/2025 2:30 PM EST Office Visit [facility] CARDIOLOGY [address] [place] [address] Sophy Mcgraw APRN [address] [place] [address] Swelling of lower extremity (Primary [...] or training? Not on file Preferred Language Setswana 03/03/2024 PHQ-2 Answer Date Recorded Retired PHQ-9: [...] 2:30 PM ESTAssociated Problem(s): Hypertension {Hypertension is (optional):0459323488} * Sophy Mcgraw APRN - 08/22/2025 2:30 PM ESTAssociated Problem(s): Pacemaker * Sophy Mcgraw APRN - 08/22/2025 2:30 PM ESTAssociated Problem(s): BRENDA (obstructive sleep apnea) * Sophy Mcgraw APRN - 08/22/2025 2:30 PM ESTAssociated Problem(s): Chronic diastolic (congestive) heart failure {CHF (Optional):50542} Orders: XR Chest 2 View * Sophy [...] present. ?? Mild pulmonary hypertension is present. *[facility] 01/15/23- Angiographically normal coronary arteries. Normal [...] As needed, Disp: , Rfl: nystatin (MYCOSTATIN) [id number] UNIT/GM powder, Apply topically to the appropriate [...] Check. Sophy Mcgraw APRN Cardiology and Sleep [facility] 08/22/2025 Please note that this explicitly excludes time spent on other separate billable services such as performing procedures or test interpretation, when applicable. documented in this encounter Plan of Treatment Upcoming Encounters Date Type Department Care Team (Late st Contact Info) Description 11/13/2025 11:00 AM EST Office Visit [facility] CARDIOLOGY [address] [place] [phone] Daphney Anton MD [address] [place] [address] 11/13/2025 11:00 AM EST Clinical Support No Requirements [facility] CARDIOLOGY [address] [place] [address] [place] [phone] 12/20/2025 1:30 PM EST Office Visit [facility] CARDIOLOGY [address] [place] [address] [place] [phone] Daphney Anton MD [address] [facility] [place] [address] 12/20/2025 1:30 PM EST Clinical Support No Requirements [facility] CARDIOLOG[facility] [address] [place] [address] [place] [phone] documented as of this [...] documented as of this encounter Care Teams Manufacturing Development Engineer Relationship Specialty Start Date End Date System, [place] [address] PCP - General 02/14/25 documented as of this encounter
--- OUTSIDE RECORDS SUMMARY | 2025-08-28 14:00 | XMS_ITS | Encounter Summary ---
Author Organization [employer] ([place], [place], [place], [place], [place]) Address [address] [place] [address] Care Team Providers Care Film Tests Checker Name Role Phone Tanna Finch APRN Primary Care Provid er Reason for Visit * Reason Comments New patient Sukhwinder wrist pain R>L * Surgical (Routine) - Closed Specialty Diagnoses / Procedures Referred By Michael yao Referred To Contact Orthopedic Surgery Diagnoses Right carpal tunnel syndrome Lino Solis MD [address] [facility] [address] [place] [address] Phone: tel: fax: [facility] [address] [place] [address] Phone: tel: fax: Referral ID Status Reason Start Date Expiration Date V isits Requested Visits Authorized [id number] Closed Specialty Services Required 08/21/2025 08/21/2026 1 1 Encounter Details Date Type Department Care Team (Late st Contact Info) Description 08/28/2025 2:00 PM EST Office Visit [facility] [address] [place] [address] Kaushik London PA-C [address] [facility] [address] [place] [address] Bilateral carpal tunnel syndrome (Primary Dx); Cubital tunnel syndrome, bilateral Social History Tobacco Use Types Packs/Day Years Used Date Smoking Tobacco: Every Day Cigarettes 1.5 15 Smokeless Tobacco: Never Tobacco Cessation:Ready to Q uit: Not Asked; Counseling Given: Not Answered Alcohol Use Standard Drinks/Week Comments Never 0 (1 standard drink = 0.6 oz pur e alcohol) Family and Community Support Answer Yannick e Recorded Help with Day to Day Activities Not on file 11/06/2023 Feeling Lonely or Isolated Not on file 11/06 Educational Attainment Answer Date Joseph rded Speak language other than Filipino at home Not on file 11/06/2023 Want [...] Sign Reading Time Taken Comments Blood Pressure 128/75 08/28/2025 2:30 PM EST Pulse 91 08/28/2025 2:30 PM EST Temperature - - Respiratory Rate - - Oxygen Saturation - - Inhaled Oxygen Concentration - - Weight 121.1 kg (267 lb) 08/28/2025 2:30 PM EST Height 170.2 cm (5' 7 ) 08/28/2025 2:30 PM EST Body Mass Index 41.82 08/28/2025 2:30 PM EST documented in this encounter Functional Status * BP Answer Date of Assessment Author 128/75 08/28/2025 2:30 PM Marizol Hurtado * Pulse Answer Date of Assessment Author 91 08/28/2025 2:30 PM Marizol Hurtado * Height Answer Date of Assessment Author 67 08/28/2025 2:30 PM Marizol Hutrado * Weight Answer Date of Assessment Author 4272 08/28/2025 2:30 PM Marizol Hurtado * Tidal Volume Answer Date of Assessment Author 360 08/28/2025 2:30 PM AIRPLANE TUBE BUILDER Rg, Marizol * Shock Index Answer Date of Assessment Author 0.71 08/28/2025 2:30 PM AIRPLANE TUBE BUILDER Rg Marizol * BMI (Calculated) Answer Date of Assessment Author 41.8 08/28/2025 2:30 PM AIRPLANE TUBE BUILDER Rg Marizol * Patient Position Answer Date of Assessment Author Sitting 08/28/2025 2:30 PM AIRPLANE TUBE BUILDER Rg Marizol * BP Answer Date of Assessment Author 128/75 08/28/2025 2:30 PM AIRPLANE TUBE BUILDER Rg Marizol * Pulse Answer Date of Assessment Author 91 08/28/2025 2:30 PM AIRPLANE TUBE BUILDER Rg, Marizol * BMI (Calculated) Answer Date of Assessment Author 41.8 08/28/2025 2:30 PM AIRPLANE TUBE BUILDER Rg Marizol documented as of this encounter Mental Status * BP Answer Entry Date Author 128/75 08/28/2025 2:30 PM AIRPLANE TUBE BUILDER Rg, Marizol * Pulse Answer Entry Date Author 91 08/28/2025 2:30 PM AIRPLANE TUBE BUILDER Rg Marizol * Height Answer Entry Date Author 67 08/28/2025 2:30 PM AIRPLANE TUBE BUILDER Rg Marizol * Weight Answer Entry Date Author 4272 08/28/2025 2:30 PM AIRPLANE TUBE BUILDER Rg Marizol * Tidal Volume Answer Entry Date Author 360 08/28/2025 2:30 PM AIRPLANE TUBE BUILDER Rg Marizol * Shock Index Answer Entry Date Author 0.71 08/28/2025 2:30 PM AIRPLANE TUBE BUILDER Rg Marizol * BMI (Calculated) Answer Entry Date Author 41.8 08/28/2025 2:30 PM AIRPLANE TUBE BUILDER Rg Marizol * Patient Position Answer Entry Date Author Sitting 08/28/2025 2:30 PM AIRPLANE TUBE BUILDER Marizol Diez documented in this encounter Progress Notes * Kaushik London PA-C - 08/28/2025 2:00 PM EST Subjective: Frannie Nuñez is a 55 y.o. female. Tanna Finch* Work Comp []Yes [x]No Hand Dominance: right-handed Employment: Disabled Chief Complaint Patient presents with New patient Sukhwinder wrist pain R>L Patient presents today with c/o sukhwinder wrist pain. She feels right is much more symptomatic than left.Ongoing for several months and continues to worsen. She does occasionally feel numbness/tingling inright hand; most often with over-use such as driving all day. She does wake up at times with right hand numb and tingling. She has underwent CTR on sukhwinder wrist - she believes in 1993. Describes pain through mid aspect of sukhwinder wrist as dull aching - right 6/10 left 12/26. No recent treatment. Manager Storage RT 40,LT 51 Willis pinch RT 15, LT 15 Date of Onset of Symptoms: [x]On-going problem Trauma: []+ [x]- Mechanism of Injury: Pain Location: Bilateral wrists Severity (1-10) 3-6 Quality: Dull and Aching Numbness: [x]+ []- [x]Occasional []Constant Tingling: [x]+ []- [x]Occasional []Constant Night Symptoms: [x]+ []- x/wk Additional Symptoms: []None []Drainage []Neck Pain []Redness [x]Swelling []Stiffness []Bruising [x]Weakness []Drop Items []Other: Review of Systems [x]No change from previous [x]Change from previous [x]Reviewed ROS by Kaushik London PA-C General: No recent fever or chills, no recent weight loss or weight gain, no insomnia HEENT: No change in vision, no glasses/contacts, no hearing loss, no tinnitus, no vertigo, no congestion/sinus issues CVS: No chest pain, no palpitations, no edema, no varicose veins Resp: No dyspnea, no wheezing, no cough, no hemoptysis GI: No dysphagia, no nausea, no vomiting, no heart burn, no constipation, no diarrhea : No dysuria, no hematuria, no nocturia, no history of chronic UTI Musculoskeletal: See HPI Derm: No rash, no abrasions, no skin discoloration, no history or MRSA Neuro: No headaches, no seizures, no stroke, no tremors, no muscle weakness, no difficulty walking,no numbness/tingling, no neuropathy Endo: No cold/heat intolerance Heme: No abnormal bruising or bleeding Psych: No depression, no anxiety, no fatigue, no mood swings Vitals: 08/28/25 1430 BP: 128/75 Patient Position: Sitting Pulse: 91 Weight: 121.1 kg (267 lb) Height: 1.702 m (5' 7 ) Past Medical History: Diagnosis Date Anxiety Arthritis B12 deficiency Carotid artery stenosis Carpal tunnel syndrome Cervical spinal cord compression (HCC) CHF (congestive heart failure) (HCC) COPD (chronic obstructive pulmonary disease) (HCC) Depression Diverticulitis Fibromyalgia GERD (gastroesophageal reflux disease) Hyperlipidemia Hypertension Insomnia Irritable bowel syndrome Low back pain Migraine Palpitations Paresthesia Restless leg syndrome Seizures (HCC) Sleep apnea Constantino-Ronak disease (HCC) Tremor Vertigo Past Surgical History: Procedure Laterality Date CARPAL TUNNEL RELEASE HYSTERECTOMY INSERT / REPLACE / REMOVE PACEMAKER JOINT REPLACEMENT NECK SURGERY TX PRQ IMPLTJ NSTIM ELECTRODE ARRAY EPIDURAL REPLACEMENT TOTAL KNEE SHOULDER ARTHROSCOPY SHOULDER SURGERY SPINAL FUSION TOTAL HIP ARTHROPLASTY Current Outpatient Medications Medication Sig Dispense Refill acetaminophen (TYLENOL) 325 MG tablet Take 2 tablets (650 mg total) by mouth every 6 (six) hours ifneeded. aspirin 81 MG EC tablet Take 1 tablet (81 mg total) by mouth daily. atorvastatin (LIPITOR) 80 MG tablet Take 1 tablet (80 mg total) by mouth daily. baclofen (LIORESAL) 10 MG tablet Take 1 tablet (10 mg total) by mouth 4 (four) times daily as needed. 360 tablet 1 carvediloL (COREG) 12.5 MG tablet Take 1 tablet (12.5 mg total) by mouth 2 (two) times daily. cetirizine (ZyrTEC) 10 MG tablet Take 1 tablet (10 mg total) by mouth daily. desvenlafaxine (PRISTIQ) 100 MG 24 hr tablet Take 1 tablet (100 mg total) by mouth daily. desvenlafaxine 50 mg Tb24 1 tablet Orally Once a day dexlansoprazole 60 mg capsule Take 1 capsule (60 mg total) by mouth daily. furosemide (LASIX) 20 MG tablet TAKE ONE [...] mcg by mouth every morning before breakfast. methocarbamoL (ROBAXIN) 500 MG tablet Take 2 tablets (1,000 mg total) by mouth every 6 (six) hours as needed. nystatin, bulk, 10 billion unit powd as directed. ondansetron (ZOFRAN-ODT) 4 MG disintegrating tablet Take 1 tablet (4 mg total) by mouth every 6 (six) hours if needed. Ozempic 1 mg/dose (4 mg/3 mL) pnij Inject 1 mg under the skin once a week. QUEtiapine (SEROquel) 50 MG tablet Take 1-2 tablets (50-100 mg total) by mouth nightly. rOPINIRole (REQUIP) 2 MG tablet Take 2 [...] 200 mg every evening. 270 capsule 3 albuterol HFA (VENTOLIN HFA) 90 mcg/actuation inhaler Inhale by mouth via inhaler. famotidine (PEPCID) 20 MG tablet Take 1 tablet (20 mg total) by mouth 2 (two) times daily as needed. (Patient not taking: Reported on 08/28/2025) pregabalin (LYRICA) 25 MG capsule Take 1 capsule (25 mg total) by mouth 2 (two) times daily. Max Daily Amount: 50 mg (Patient not taking: Reported on 08/28/2025.) 180 capsule 1 rimegepant (Nurtec ODT) 75 mg TbDL Take 75 mg by mouth as directed Take Nurtec ODT 75 mg as needed for migraine once in 24 hours.. 16 tablet 5 No current facility-administered medications for this visit. Allergies Allergen Reactions Diphenhydramine Hives Gabapentin Anaphylaxis Tetanus Toxoid Fluid Hives Metformin Nausea Only Tetanus Immune Globulin Other reaction(s): Hives Adhesive Tape Rash Diphtheria Toxoid,Adsorbed Rash Meclizine Hcl Rash Other Dermatitis Other reaction(s): Dermatitis Tape adhesive, steri-strips Tape adhesive, steri-strips Sulfamethoxazole-Trimethoprim Nausea Only Family History Problem Relation Name Age of Onset Hypertension Mother Heart disease Father Christiano Rosario Rheum arthritis Maternal Grandmother Consuelo Lira Heart failure Other Depression Other Diabetes Other Migraines Other Hyperlipidemia Other Social History Tobacco Use Smoking status: Every Day Average packs/day: 1.5 packs/day for 15.0 years (22.5 ttl pk-yrs) Types: Cigarettes Smokeless tobacco: Never Substance Use Topics Alcohol use: Never Objective: BP 128/75 (Patient Position: Sitting) Pulse 91 Ht 1.702 m (5' 7 ) Wt 121.1 kg (267 lb) BMI 41.82 kg/m?? Physical Exam Physical Examination: General: [x]Awake, Alert, Oriented [x]Ambulatory [x]No Acute Distress [x]Mucus Membranes pink, moist [x]Pupils equal [x]Respiratory even, unlabored Skin: [x]Warm and dry with good cap refill [] []+ [x]- []+ [x]- []+ [x]- []+ [x]- Dystrophic changes Hypersweating Hypertrichosis Discoloration Wound/Incision: []+ []- Location: No thenar, hypothenar or intrinsic atrophy. Prior palmar incisions from carpal tunnel release surgery well-healed. [] Healed []NSOI []C/D/I []Ecchymosis []Erythema []Swelling Peripheral Vessels: Palpable pulses: ~[x]~ Radial Artery ~[x]~ Ulnar Artery ~[x]~ Good Capillary Refill José's Test /____ R/L /____ Hand (+) or (-) Right Left 1st [facility] Tenderness []+ []- []+ []- 1st TEST LEAD Grind []+ []- []+ []- Haydee Nodes []+ []- []+ []- Heberden Nodes []+ []- []+ []- A1 Elizabeth Tenderness []+ []- []+ []- Triggering []+ []- []+ []- Pain on lateral stress []+ []- []+ []- UCL Instability []+ []- []+ []- RCL Instability []+ []- []+ []- Thenar Atrophy []+ [x]- []+ [x]- Hypothenar Atrophy []+ [x]- []+ [x]- , Tinels Compression Right Left Right Left Carpel Tunnel [x]+ []- [x]+ []- Carpal T [x]+ []- [x]+ []- Pronator []+ []- []+ []- Phalen's [x]+ []- [x]+ []- Cubital Tunnel []+ [x]- []+ [x]- Pronator T []+ []- []+ []- Guyon's Canal []+ [x]- []+ [x]- Elbow Hyperflex []+ []- []+ []- Infraclavicular []+ []- []+ []- Infraclavicular []+ []- []+ []- Supraclavicular []+ []- []+ []- Supraclavicular []+ []- []+ []- EMG/NCS: No results found for this or any previous visit. Imaging Treatment: Procedures Assessment: ICD-10-CM ICD-9-CM 1. Bilateral carpal tunnel syndrome G56.03 354.0 2. Cubital tunnel syndrome, bilateral G56.23 354.2 Plan: Discussed treatment options for Carpal Tunnel Syndrome, including braces, injections and redo carpal tunnel release. Patient states understanding of all options and has elected to proceed with EMG/NCV Bilateral UE toevalulate for bilateral recurrent carpal tunnel syndrome and cubital tunnel syndrome The patient education brochure on carpal tunnel syndrome has been provided to the patient. Continue carpal tunnel night splints (patient has obtained OTC) B6/E Vitamins *Review of all patient outside records was performed including: Xrays, EMG/NCV, Labs, and physiciannotes Return for After EMG/NCV study. Patient instructions given. Discussed elevated BMI and elevated BP with patient including risk factors. Patient will follow-up with PCP for meterman treatment plan. I have examined and questioned the above listed patient and provided or received all documentation,establishing, confirming, and revising as necessary, the findings and statements noted. . EMR/Dragon/Skein Mercerizing Machine Operator disclaimer: Much of this encounter note is an electronic clinical writer/translation of spoken language to printed text. The electronic translation of spoken language may permit erroneous, or at times, nonsensical words or phrases to be inadvertently transcribed; Although thenote is reviewed for such errors, some may still exist. LANE TUBE BUILDER documented in this encounter Plan of Treatment Upcoming Encounters Date Type Department Care Team (Late st Contact Info) Description 11/01/2025 9:00 AM EST Office Visit [facility] [address] [facility] [address] [place] [address] 12/26/2025 10:00 AM EDT Office Visit [address] [place] [address] Lino Solis MD [address] [place] [address] [address] [place] [address] Scheduled Orders Name Type Priority Associated Diagnoses Orde r Schedule EMG W/ NCS Neurology Routine Bilateral carpal tunnel syndrome Cubital tunnel syndrome, bilateral Expected: 09/11/2025, Expires: 09/27/2026 documented as of this encounter Visit Diagnoses Diagnosis Bilateral carpal tunnel syndrome- Primary Carpal tunnel syndrome Cubital tunnel syndrome, bilateral documented in this encounter Care Teams Film Tests Checker Relationship Specialty Start Date End Date Tanna Finch APRN [address] [place] [phone] PCP - General Nurse Practitioner 11/04/24 documented as of this encounter
[2025-10-18 08:36] VITALS: BMI 41.8
--- OUTSIDE RECORDS SUMMARY | 2025-10-18 09:53 | XMS_ITS | Encounter Summary ---
Author Organization [facility] Address [address] [place] [address] Care Team Providers Care Section Leader Screen Printing Name Role Phone Ronaldo Kong MD Primary Care Provider [phone] Lindsey Ewing APRN Primary Care Provider [phone] Magalis Reid APRN, DNP Unavailable [phone] Encounter Details Date Type Department Care Team (Late st Contact Info) Description 07/08/2022 Orders Only External Location [address] [place] [id number] Provider, External Social History Tobacco Use Types [...] EDT Appointment [facility] [address] [place] [address] 01/05/2026 11:00 AM EDT Clinical Support [place] [facility] [address] [place] [address] 01/05/2026 12:20 PM EDT Office Visit [facility] [address] [place] [address] Kaylene Fernandez APRN [address] [place] [id number] documented as of this encounter Procedures Procedure [...] documented as of this encounter Care Teams Section Leader Screen Printing Relationship Specialty [place] [id number] PCP - General 03/01/21 05/31/25 Lindsey Ewing APRN [address] PCP - General 06/01/25 Magalis Reid APRN, DNP [address] [facility] [address] [place] [id number] Nurse Practitioner Urology 06/01/25 Guru Ma [address] [place] [address] [address] [facility] [address] Referring Physician Obstetrics and Gynecology 09/02/21 documented as of this encounter
--- OUTSIDE RECORDS SUMMARY | 2025-10-18 09:53 | XMS_ITS | Patient Health Record ---
Author Organization [facility], [facility] . 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 Problem Type 2 diabetes mellitus (06331325) Type 2 diabetes mellitus (E11.9) Active confirmed Problem Hypertension (24103242) HTN (hypertension) (I10) Active confirmed Problem Morbid obesity (446508262) Morbid obesity (E66.01) Active confirmed Problem Obstructive sleep apnea syndrome (13890617) BRENDA (obstructive sleep apnea) (G47.33) Active confirmed Problem Obese (320463473) Obese (E66.9) Active confirmed Problem Brain tumor (441780781) Brain tumor (D49.6) Active confirmed Problem Chronic kidney disease stage 2 (639593190) Chronic kidney disease (CKD) stage G2/A1, mildly decreased glomerular filtration rate (GFR) between 60-89 mL/min/1.73 square meter and albuminuria creatinine ratio less than 30 mg/g (N18.2) Active confirmed Problem Obstructive sleep apnea syndrome (34298811) BRENDA (obstructive sleep apnea) (G47.33) Active confirmed Plan Of Treatment Pending Test Test Name Order Date CBC WITH DIFF 06/01/2023 CBC WITH DIFF 11/30/2023 IRON, TIBC AND FERRITIN PANEL 07/29/2022 IRON, TIBC AND FERRITIN PANEL 11/30/2023 CMP14+eGFR 07/29/2022 CMP14+eGFR 08/01/2021 CMP14+eGFR 12/01/2022 CMP14+eGFR 11/30/2023 URINALYSIS COMPLETE 08/01/2021 URINALYSIS COMPLETE 11/30/2023 URINALYSIS COMPLETE 06/01/2023 URINALYSIS COMPLETE 05/30/2021 CBC W AUTOMATED DIFFERENTIAL [...] Michael [employer] ([place] [address] [address] [place] [address] [id number] Frannie Nuñez Self - patient is the insured Medical (General) History Medical History History ICD Code Anemia Avitaminosis B 12 deficiency Carotid artery stenosis CHF 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
--- OUTSIDE RECORDS SUMMARY | 2025-10-18 09:53 | XMS_ITS | Encounter Summary ---
Author Organization [facility] Address [address] [place] [address] Care Team Providers Care Grain Cleaner Name Role Phone System, Provider Not In Primary Care Provider Un available Reason for Visit * Reason Comments Med Refill Encounter Details Date Type Department Care Team (Late st Contact Info) Description 10/16/2025 Refill [facility] PRIMARY CARE [address] [place] [address] [place] [address] Ronaldo Kong MD [address] [place] [address] [place] [address] Social History Tobacco Use Types [...] or training? Not on file Preferred Language Vincentian 03/03/2024 PHQ-2 Answer Date Recorded Retired PHQ-9: [...] Office Visit [facility] [place] [phone] Daphney Hall MD [address] [place] [address] 11/13/2025 11:00 AM EST Clinical Support No Requirements [facility] [place] [phone] 12/20/2025 1:30 PM EST Office Visit [facility] [place] [phone] Daphney Hall MD [address] [place] [address] 12/20/2025 1:30 PM EST Clinical Support No Requirements [facility] [address] [place] [address] documented as of this encounter Visit Diagnoses Not on filedocumented in this encounter Additional Health Concerns Assessment Noted Time PHQ-2 Depression Total Score: 3 07/18/20 24 11:28 AM EDT documented as of this encounter Care Teams Grain Cleaner Relationship Specialty Start Date End Date System, [place] [address] PCP - General 4/29/25 documented as of this encounter
--- OUTSIDE RECORDS SUMMARY | 2025-10-18 09:53 | XMS_ITS | Encounter Summary ---
Author Organization [facility] Address [address] [place] [address] Care Team Providers Care Grizzlyman Name Role Phone System, Provider Not In Primary Care Provider Un available Reason for Visit * Reason Comments Med Refill Encounter Details Date Type Department Care Team (Late st Contact Info) Description 10/16/2025 Refill [facility] [address] [place] [address] [place] [address] Ronaldo Kong MD [address] [place] [address] [place] [address] Social History Tobacco Use Types [...] or training? Not on file Preferred Language Kuwaiti 03/03/2024 PHQ-2 Answer Date Recorded Retired PHQ-9: [...] Description 11/13/2025 11:00 AM EST Office Visit [facility] [place] [phone] Daphney Hall MD [address] [place] [address] 11/13/2025 11:00 AM EST Clinical Support No Requirements [facility] [place] [address] 12/20/2025 1:30 PM EST Office Visit [facility] [place] [phone] Daphney Hall MD [address] [place] [address] 12/20/2025 1:30 PM EST Clinical Support No Requirements [facility] [address] [place] [address] documented as of this encounter Visit Diagnoses Not on filedocumented in this encounter Additional Health Concerns Assessment Noted Time PHQ-2 Depression Total Score: 3 07/18/20 24 11:28 AM EDT documented as of this encounter Care Teams Grizzlyman Relationship Specialty Start Date End Date System, [place] [address] PCP - General 4/29/25 documented as of this encounter
--- OUTSIDE RECORDS SUMMARY | 2025-10-18 09:53 | XMS_ITS | Encounter Summary ---
Author Organization [facility] Address [address] [place] [address] Care Team Providers Care Senior Stock Plan Administrator Name Role Phone System, Provider Not In Primary Care Provider Un available Encounter Details Date Type Department Care Team (Late st Contact Info) Description 03/08/2025 Results Follow-Up [facility] [address] [place] [address] Daphney Hall MD [address] [place] [address] Social History Tobacco Use Types Packs/Day [...] or training? Not on file Preferred Language Cymro 03/03/2024 PHQ-2 Answer Date Recorded Retired PHQ-9: [...] Description 11/13/2025 11:00 AM EST Office Visit [facility] [address] [address] Daphney Hall MD [address] [place] [address] 11/13/2025 11:00 AM EST Clinical Support No Requirements [facility] [address] [address] 12/20/2025 1:30 PM EST Office Visit [facility] [address] [place] [address] Daphney Hall MD [address] [address] 12/20/2025 1:30 PM EST Clinical Support No Requirements [facility] [address] [address] documented as of this encounter Visit Diagnoses Not on filedocumented in this encounter Additional Health Concerns Assessment Noted Time PHQ-2 Depression Total Score: 3 07/18/20 24 11:28 AM EDT documented as of this encounter Care Teams Senior Stock Plan Administrator Relationship Specialty Start Date End Date System, [place] [address] PCP - General 02/14/25 documented as of this encounter
--- OUTSIDE RECORDS SUMMARY | 2025-10-18 09:53 | XMS_ITS | Clinical Summary ---
Author Organization [facility] Address [address] [place] [address] Care Team Providers Care Edger Machine Helper Name Role Phone Kaylin Lindsey NELSON Primary Care Provider [phone] Magalis Reid APRN, DNP Unavailable [phone] Allergies Active Allergy Reactions Criticality Noted Date [...] Diagnosed Date Sacral nerve stimulator present 11/14/2024 OAB (overactive bladder) 06/19/2023 Swelling 05/18/2023 Overview [...] 09/22/2023 07/09/2025 Left foot pain 09/01/2023 07/09/2025 Shortness of breath 07/20/2023 09/22/2023 09/24/20 25 Overview (09/22/2023): Last Assessment & Plan: Echocardiogram 07/21/2023-LVEF 61-65%. Left ventricular wall thickness is consistent with mild concentric hypertrophy. Left ventricular diastolic function is consistent with (grade 1) impaired relaxation. There is mild, bileaflet mitral valve thickening present. RVSP is normal. Mild mitral valve regurgitation. Mild tricuspid regurgitation - Continue current dose of Lasix. Swelling of lower extremity 07/20/2023 07/09/2025 Overview [...] drinking soda. She has not utilized any aunm-vdg-isrorzm medications such as AZO for her symptoms. [...] Appointment [facility] [address] [place] [address] 01/05/2026 11:00 AM EDT Clinical Support [facility] [address] [place] [address] 01/05/2026 12:20 PM EDT Office Visit [place] [facility] [address] [place] [address] Kaylene Fernandez, OFFICE MACHINE INSPECTOR [address] [place] [address] Health Maintenance Due Date Last Done Comments [facility]-HIV Screening 1970 [facility]-Infant/Child/Adol SDOH Screenings 1970 [facility]- SDOH Screenings 1988 [...] 07/0 03/2022 [facility]-Lung Cancer Screening 01/04/2025 01/05/2024, NEB-UBSAB-55 Vaccine ( season) 2025 02/09/2021, 01/19/2021 [facility]-Influenza Vaccine (#1) 06/19/202508/30, 08/10/2024, 07/15/2023, Additional history exists [facility]-Diabetes: Hemoglobin A1C 07/18/2025 07/18/2024, 03/03/2024, 01/25/2024, Additional history exists [facility]-Cervical Cancer Screening Discontinued [facility]-HPV/Cotest Discontinued 12/07/1997 [facility]-Pap Smear Discontinued 12/07/1997 [facility]-Pneumococcal Vaccine: 50+ Years Completed 11/26/2022, 07/04/2022 [facility]-Hepatitis C Screening Completed 11/27/2022, [facility]-Zoster Vaccines Completed 11/21/2024, [facility]-Obesity Intervention Completed 025, 11/14/2024, 11/05/2023, Additional history exists HPV Vaccines (No Doses Required) Completed [facility]-HIB Vaccines Aged Out No longer e ligible based on patient's age to complete this topic [facility]-IPV Vaccines Aged Out No longer e ligible based on patient's age to complete this topic [facility]-Rotavirus Vaccines Aged Out No lo nger eligible based on patient's age to complete this topic Medical Devices Implanted Type Area Lean Consultant Device Identifier Shelf Expiration Date Model / [...] Adults <6.0% Children and Adolescents <7.5% Source: [place] [employer]. Standards of medical care in diabetes,2017. Diabetes Care.2017:40 (suppl 1):S1-S135. HbA1c assay performed by an ion-exchange chromatography method that is certified traceable to the DCCT. Harpreet Laureano MD LAB BLOOD ORDERABLES Final Result [facility] [address] [place] [address] * [place] Hepatitis C Antibody (05/08/2019 11:11 PM EDT) [place] Hepatitis C Ab NEGATIVE Reference Range: Negative SUNQUEST 05/08/2019 11:1 1 PM EDT 05/08/2019 11:25 PM EDT Paresh Bingham LAB BLOOD ORDERABLES Final Resul t Performing Organization Address [facility] Co de Phone Number SUNQUEST * Cytology (12/07/1997 12:00 AM EST) 12/07/1997 12/07/1997 Narrative SUNQUEST - 12/08/1997 12:00 AM EST [facility] MR #: [id number] [facility] FRANNIE NU[address] [place] [id number] 1970 (Age: 27) FW Collect Date: 12/07/1997 00:00 Receipt Date: 12/07/1997 00:00 Page 1 DEPARTMENT OF PATHOLOGY AND LABORATORY MEDICINE CYTOPATHOLOGY REPORT Email: [email or web address] * Converted Case * This report may [...] ICD: F: {Not Entered} SNOMED CODES: 1; [id number] A resident has participated in this service. [...] Patient has decision-making capacity? Yes Care Teams Edger Machine Helper Relationship Specialty Start Date End Date [place] APRN [address] PCP - General 06/01/25 Magalis Reid APRN, DNP [address] [place] [address] Nurse Practitioner Urology 06/01/25 Guru Ma [address] [place] [address] [address] [facility] [address] Referring Physician Obstetrics and Gynecology 09/02/21
--- OUTSIDE RECORDS SUMMARY | 2025-10-18 09:53 | XMS_ITS | Encounter Summary ---
Author Organization [facility] Address [address] [place] [address] Care Team Providers Care Skimmer Name Role Phone System, Provider Not In Primary Care Provider Un available Reason for Visit * Reason Comments Med Refill Encounter Details Date Type Department Care Team (Late st Contact Info) Description 10/16/2025 Refill [facility] [address] [place] [address] [place] [address] Ronaldo Kong MD [address] [place] [address] [place] [address] Social History Tobacco Use Types [...] Description 11/13/2025 11:00 AM EST Office Visit [facility] [address] [address] Daphney Hall MD [address] [address] 11/13/2025 11:00 AM EST Clinical Support No Requirements [facility] [address] [address] 12/20/2025 1:30 PM EST Office Visit [facility] [address] [address] Daphney Hall MD [address] [address] 12/20/2025 1:30 PM EST Clinical Support No Requirements [facility] [address] [address] documented as of this encounter Visit Diagnoses Not on filedocumented in this encounter Additional Health Concerns Assessment Noted Time PHQ-2 Depression Total Score: 3 07/18/20 24 11:28 AM EDT documented as of this encounter Care Teams Skimmer Relationship Specialty Start Date End Date System, [place] [address] PCP - General 4/29/25 documented as of this encounter
--- OUTSIDE RECORDS SUMMARY | 2025-10-18 09:54 | XMS_ITS | Encounter Summary ---
Author Organization [employer] ([place], [place], [place], [place]) Address [address] [place] [address] Care Team Providers Care Nail Technician Name Role Phone Ronaldo Kong MD Primary Care Provider [phone] Tanna Finch APRN Primary Care Provid er Encounter Details Date Type Department Care Team (Late st Contact Info) Description 05/18/2019 Transcribed Document [facility] Family Medicine [address] [place] [address] ProviderJorje MD [address] [place] [address] Social History Tobacco Use Types Packs/Day [...] On: 05/18/2019 16:02 EDT by RENETTA CATHERINE RN Discharge Documentation Discharge Date/Time : 05/18/2019 17:00 EDT [...] - 05/18/2019 16:02 EDT Electronically signed by [facility] Conversion Maintenance Technician 3Rd Shift Cerner at 02/03/2023 4:46 PM CDT documented in this encounter Plan of Treatment Upcoming Encounters Date Type Department Care Team (Late st Contact Info) Description 11/01/2025 9:00 AM EST Office Visit [facility] Neurology [facility] [address] [facility] [address] [place] [address] 12/26/2025 10:00 AM EDT Office Visit [address] [place] [address] Lino Solis MD [address] [place] [address] [address] [place] [address] documented as of this encounter Visit Diagnoses Not on filedocumented in this encounter Care Teams Nail Technician Relationship Specialty Start Date End Date Dilan, Ronaldo Yates MD [address] [place] [address] PCP - General General Internal Medicine 12/24/2210/19 Tanna Finch APRN [address] [place] [phone] PCP - General Nurse Practitioner 11/04/24 documented as of this encounter
--- OUTSIDE RECORDS SUMMARY | 2025-10-18 09:54 | XMS_ITS | Encounter Summary ---
Author Organization [employer] ([place], [place]) Address [address] [place] [address] Care Team Providers Care Cattle And Wheat Farmer Name Role Phone Ronaldo Kong MD Primary Care Provider [phone] Tanna Finch APRN Primary Care Provid er Encounter Details Date Type Department Care Team (Late st Contact Info) Description 06/06/2020 Transcribed Document [facility] [place] [facility] [place] [address] ProviderJorje MD [address] [place] [address] Social History Tobacco Use Types Packs/Day [...] Tobacco Cues : Verbalizes understanding Activities to Randall With Smoking Urges : Verbalizes understanding Basic Information About Quitting : Verbalizes understanding Tobacco Use Increases Chance of Relapse : Verbalizes understanding Withdrawal Symptoms Peak After Quitting : Verbalizes understanding Addictive Nature of Tobacco : Verbalizes understanding Emperatriz Bell RN-Resource - 06/06/2020 16:59 EDT documented in this encounter Plan of Treatment Upcoming Encounters Date Type Department Care Team (Late st Contact Info) Description 11/01/2025 9:00 AM EST Office Visit [address] [address] 12/26/2025 10:00 AM EDT Office Visit [address] [address] Lino Solis MD [address] [place] [address] documented as of this encounter Visit Diagnoses Not on filedocumented in this encounter Care Teams Cattle And Wheat Farmer Relationship Specialty Start Date End Date Ronaldo Kong MD [address] [place] [address] [place] [address] PCP - General General Internal Medicine 12/24/2210/19 Tanna Finch, OMAR [address] [place] [place] [phone] PCP - General Nurse Practitioner 11/04/24 documented as of this encounter
--- OUTSIDE RECORDS SUMMARY | 2025-10-18 09:54 | XMS_ITS | Encounter Summary ---
Author Organization [employer] ([place], [place], [place], [place]) Address [address] [place] [address] Care Team Providers Care Superintendent Seed Mill Name Role Phone Ronaldo Kong MD Primary Care Provider [phone] Tanna Finch APRN Primary Care Provid er Encounter Details Date Type Department Care Team (Late st Contact Info) Description 05/06/2019 Transcribed Document [facility] Family Medicine [address] [place] [address] ProviderJorje MD [address] [place] [address] Social History [...] With, Opportunity For Questions Given : Patient CALLI GORDON, RN - 05/06/2019 15:34 EDT documented in this encounter Plan of Treatment Upcoming Encounters Date Type Department Care Team (Late st Contact Info) Description 11/01/2025 9:00 AM EST Office Visit [facility] Neurology - [address] [facility] [address] [place] [address] 12/26/2025 10:00 AM EDT Office Visit [facility] [address] [place] [address] [address] [place] [address] Lino Solis MD [address] [place] [address] [address] [place] [address] documented as of this encounter Visit Diagnoses Not on filedocumented in this encounter Care Teams Superintendent Seed Mill Relationship Specialty Start Date End Date Ronaldo Kong MD [address] [place] [address] PCP - General General Internal Medicine 12/24/2210/19 Tanna Finch APRN [address] [place] [phone] PCP - General Nurse Practitioner 11/04/24 documented as of this encounter
--- OUTSIDE RECORDS SUMMARY | 2025-10-18 09:54 | XMS_ITS | Encounter Summary ---
Author Organization [employer] ([place], [place], [place], [place]) Address [address] [place] [address] Care Team Providers Care Impregnation Operator Name Role Phone Ronaldo Kong MD Primary Care Provider [phone] Tanna Finch APRN Primary Care Provid er Encounter Details Date Type Department Care Team (Late st Contact Info) Description 06/08/2020 Transcribed Document [facility] Family Medicine [facility] [place] [address] ProviderJorje MD [address] [place] [address] Social History Tobacco Use Types Packs/Day [...] Policy Numbers : Insurance 1 Health Plan: [place] [employer] Policy Number: [id number] Authorization Number: Insurance Primary Name : [place] [employer] [id number] Authorization Status-Primary : Denial - admission Reference Number-Primary : [id number] Authorized Service Begin Date-Primary : 06/06/2020 EDT Authorization Comments-Primary : Called Dr. Royal office-spoke with Irene she stated she would discuss case with Dr. Royal for completing P2P. Informed her I would fax the denial paperwork. Irene stated she would put on Dr. Royal desk for Thursday. Historical Authorization Comments-Primary : Comment 1: [place] Medicaid denied per fax for inpt (MARU KHAN, RN-Utilization Review 06/08/2020 11:28) Comment 2: Uploaded clinicals to [employer] via [employer]. (AGUILAR KERR, DANIELA-Utilization Review 06/07/2020 11:54) WU HARMAN RN - 06/08/2020 14:25 EDT Electronically signed by Tanika Ruvalcaba Conversion Associate Professor Of Biostatistics [employer] at 02/03/2023 4:39 PM CDT documented in this encounter Plan of Treatment Upcoming Encounters Date Type Department Care Team (Late st Contact Info) Description 11/01/2025 9:00 AM EST Office Visit [facility] Neurology [address] [address] 12/26/2025 10:00 AM EDT Office Visit [address] [address] Lino Solis MD [address] [place] [address] [address] [place] [address] documented as of this encounter Visit Diagnoses Not on filedocumented in this encounter Care Teams Impregnation Operator Relationship Specialty Start Date End Date Ronaldo Kong MD [address] [place] [address] [place] [address] PCP - General General Internal Medicine 12/24/2210/19 Tanna Finch, OMAR [address] [place] [phone] PCP - General Nurse Practitioner 11/04/24 documented as of this encounter
--- OUTSIDE RECORDS SUMMARY | 2025-10-18 09:54 | XMS_ITS | Encounter Summary ---
Author Organization [employer] ([place], [place], [place], [place]) Address [address] [place] [address] Care Team Providers Care Devil Tender Name Role Phone Ronaldo Kong MD Primary Care Provider [phone] Tanna Finch APRN Primary Care Provid er Encounter Details Date Type Department Care Team (Late st Contact Info) Description 06/06/2020 Transcribed Document [facility] [place] [facility] [place] [address] ProviderJorje MD [address] [place] [address] Social History Tobacco Use Types Packs/Day [...] - being replaced. No skin breakdown. 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 On cardiac diet w/ 90% x [...] Level : No nutritional risk Anum Khan, Dietitikareem - 06/07/2020 14:05 EDT documented in this encounter Plan of Treatment Upcoming Encounters Date Type Department Care Team (Late st Contact Info) Description 11/01/2025 9:00 AM EST Office Visit [facility] Neurology - [address] [place] [address] [address] [place] [address] 12/26/2025 10:00 AM EDT Office Visit [facility] Neurology - [address] [place] [address] [address] [place] [address] Lino Solis MD [address] [place] [address] [address] [place] [address] documented as of this encounter Visit Diagnoses Not on filedocumented in this encounter Care Teams Devil Tender Relationship Specialty Start Date End Date Ronaldo Kong MD [address] [place] [address] [place] [address] PCP - General General Internal Medicine 12/24/2210/19 Tanna Finch APRN [address] [place] [phone] PCP - General Nurse Practitioner 11/04/24 documented as of this encounter
--- OUTSIDE RECORDS SUMMARY | 2025-10-18 09:54 | XMS_ITS | Encounter Summary ---
Author Organization [employer] ([place], [place], [place]) Address [address] [place] [address] Care Team Providers Care Telecommunication Equipment Repairer Name Role Phone Ronaldo Kong MD Primary Care Provider [phone] Tanna Finch APRN Primary Care Provid er Encounter Details Date Type Department Care Team (Late st Contact Info) Description 06/06/2020 Transcribed Document [facility] [place] [address] [place] [address] ProviderJorje MD [address] [place] [address] Social History Tobacco Use Types Packs/Day [...] : Yes Attention Assessment : Present DANNY MCDNOALD, PT - 06/07/2020 11:38 EDT Edu Topics [...] DANNY MCDONALD, PT - 06/07/2020 11:38 EDT Java Programmer Goals Other PT LTG Grid Goal #1 Goal #2 Other : Patient will be Supervision/Independent with all transfers to return to [facility]. Patient will ambulate 300' without AD Supervision for community distances and improved endurance. Date to Meet : 06/10/2020 EDT 06/10/2020 EDT Goal Status : Initial goal Initial goal DANNY MCDONALD, PT - 06/07/2020 11:38 EDT DANNY MCDONALD, PT - 06/07/2020 11:38 EDT Treatment Note Patient's Response to Treatment : Good Assessment : Patient will benefit from acute skilled PT services to maxamize safety/[place] with functional mobility prior to discharge. DANNY [...] Description 11/01/2025 9:00 AM EST Office Visit [facility] Neurology - [address] [facility] [address] [place] [address] 12/26/2025 10:00 AM EDT Office Visit [facility] Neurology - [address] [facility] [address] [place] [address] Lino Solis MD [address] [place] [address] [address] [place] [address] documented as of this encounter Visit Diagnoses Not on filedocumented in this encounter Care Teams Telecommunication Equipment Repairer Relationship Specialty Start Date End Date Ronaldo Kong MD [address] [place] [address] PCP - General General Internal Medicine 12/24/2210/19 Tanna Finch, OMAR [address] [place] [phone] PCP - General Nurse Practitioner 11/04/24 documented as of this encounter
--- OUTSIDE RECORDS SUMMARY | 2025-10-18 09:54 | XMS_ITS | Encounter Summary ---
Author Organization [employer] ([place], [place], [place], [place], [place]) Address [address] [place] [address] Care Team Providers Care Paper Baling Machine Operator Name Role Phone Ronaldo Kong MD Primary Care Provider [phone] Tanna Finch APRN Primary Care Provid er Encounter Details Date Type Department Care Team (Late st Contact Info) Description 05/18/2019 Transcribed Document [facility] [place] [facility] [place] [address] ProviderJorje MD [address] [place] [address] Social History Tobacco Use Types Packs/Day [...] Source : Measured Height Entry Format : [place] Height, Feet : 5 ft(Converted to: 152 cm, 60 Inch) Height, Inches : 7 Inch(Converted to: 0 ft 7 Inch, 17.78 cm) Clinical Height : 170.18 cm Weight Source : Standing scale Weight Entry Format : [place] Clinical Dosing Weight : 130.45 kg Weight, Pounds : 287 lb Weight, Ounces : 0 oz Body Surface Area (BSA) : 2.36 m2 Body Mass Index : 45 kg/m2 (>HHI) [place] Body Weight : 61 kg RENETTA CATHERINE [...] #2 Relationship : x Primary Language : [place] Communication Barrier : None RENETTA CATHERINE RN [...] Scale Risk Level : 25-45 Medium Risk [place] Fall Interventions : Adequate lighting, Assistive devices [...] Description 11/01/2025 9:00 AM EST Office Visit [facility] Neurology - [address] [place] [address] 12/26/2025 10:00 AM EDT Office Visit [facility] Neurology - [address] [place] [address] [place] [address] [place] [address] [address] [place] [address] documented as of this encounter Visit Diagnoses Not on filedocumented in this encounter Care Teams Paper Baling Machine Operator Relationship Specialty Start Date End Date West, Ronaldo Yates MD [address] [place] [address] PCP - General General Internal Medicine 12/24/2210/19 Tanna Finch APRN [address] [place] [phone] PCP - General Nurse Practitioner 11/04/24 documented as of this encounter
--- OUTSIDE RECORDS SUMMARY | 2025-10-18 09:54 | XMS_ITS | Encounter Summary ---
Author Organization [employer] ([place], [place], [place], [place], [place]) Address [address] [place] [address] Care Team Providers Care Cylinder Head Assembler Name Role Phone Ronaldo Kong MD Primary Care Provider [phone] Tanna Finch APRN Primary Care Provid er Encounter Details Date Type Department Care Team (Late st Contact Info) Description 06/08/2020 Transcribed Document [facility] Family Medicine [address] [place] [address] ProviderJorje MD [address] [place] [address] Social History Tobacco Use Types Packs/Day [...] Description 11/01/2025 9:00 AM EST Office Visit [facility] Neurology - [address] [place] [address] 12/26/2025 10:00 AM EDT Office Visit [facility] [address] [facility] [address] [place] [address] [place] [address] [place] [address] [address] [place], [place] [phone] documented as of this encounter Visit Diagnoses Not on filedocumented in this encounter Care Teams Cylinder Head Assembler Relationship Specialty Start Date End Date Ronaldo Kong MD [address] [place] [address] [place] [address] PCP - General General Internal Medicine 12/24/2210/19 Tanna Finch APRN [address] [place] [phone] PCP - General Nurse Practitioner 11/04/24 documented as of this encounter
--- OUTSIDE RECORDS SUMMARY | 2025-10-18 09:54 | XMS_ITS | Encounter Summary ---
Author Organization [employer] ([place], [place], [place], [place], [place]) Address [address] [place] [address] Care Team Providers Care Timber Packer Name Role Phone Ronaldo Kong MD Primary Care Provider [phone] Tanna Finch APRN Primary Care Provid er Encounter Details Date Type Department Care Team (Late st Contact Info) Description 06/06/2020 Transcribed Document [facility] Family Medicine [facility] [place] [address] ProviderJorje MD [address] [place] [address] Social History Tobacco Use Types Packs/Day [...] understanding Blood Pressure Monitoring/Mgmt : Verbalizes understanding Medical Education Manager : Verbalizes understanding Cardiac Equipment : Verbalizes [...] Description 11/01/2025 9:00 AM EST Office Visit [facility] Neurology [address] [phone] 12/26/2025 10:00 AM EDT Office Visit [address] [place] [address] Lino Solis MD [address] [place] [address] [address] [place] [address] documented as of this encounter Visit Diagnoses Not on filedocumented in this encounter Care Teams Timber Packer Relationship Specialty Start Date End Date Ronaldo Kong MD [address] [place] [address] PCP - General General Internal Medicine 12/24/2210/19 Tanna Finch APRN [address] [place] [phone] PCP - General Nurse Practitioner 11/04/24 documented as of this encounter
--- OUTSIDE RECORDS SUMMARY | 2025-10-18 09:54 | XMS_ITS | Encounter Summary ---
Author Organization [employer] ([place], [place], [place], [place], [place]) Address [address] [place] [address] Care Team Providers Care Art Objects Supervisor Name Role Phone Ronaldo Kong MD Primary Care Provider [phone] Tanna Finch APRN Primary Care Provid er Encounter Details Date Type Department Care Team (Late st Contact Info) Description 06/06/2020 Transcribed Document [facility] [place] Family Medicine [address] [place] [address] ProviderJorje MD [address] [place] [address] Social History Tobacco Use Types Packs/Day [...] Emperatriz Bell RN-Radhika - 06/06/2020 17:55 EDT documented in this encounter Plan of Treatment Upcoming Encounters Date Type Department Care Team (Late st Contact Info) Description 11/01/2025 9:00 AM EST Office Visit [facility] Neurology - [address] [place] [address] 12/26/2025 10:00 AM EDT Office Visit [facility] [address] [facility] [address] [place] [address] [place] [address] [place] [address] [address] [place], [place] [phone] documented as of this encounter Visit Diagnoses Not on filedocumented in this encounter Care Teams Art Objects Supervisor Relationship Specialty Start Date End Date Ronaldo Kong MD [address] [place] [address] [place] [address] PCP - General General Internal Medicine 12/24/2210/19 Tanna Finch APRN [address] [place] [phone] PCP - General Nurse Practitioner 11/04/24 documented as of this encounter
--- OUTSIDE RECORDS SUMMARY | 2025-10-18 09:54 | XMS_ITS | Encounter Summary ---
Author Organization [employer] ([place], [place], [place], [place], [place]) Address [address] [place] [address] Care Team Providers Care Director Of Student Financial Services Name Role Phone Ronaldo Kong MD Primary Care Provider [phone] Tanna Finch APRN Primary Care Provid er Encounter Details Date Type Department Care Team (Late st Contact Info) Description 06/08/2020 Transcribed Document [facility] [place] [address] [place] [address] ProviderJorje MD [address] [place] [address] Social History Tobacco Use Types Packs/Day [...] Jorje ProviderMD - 06/08/2020 2:00 AM CDT [employer] Details Entered On: 06/08/2020 5:45 EDT Performed [...] Description 11/01/2025 9:00 AM EST Office Visit [facility] [address] [facility] [address] [place] [address] 12/26/2025 10:00 AM EDT Office Visit [facility] [address] [place] [address] Lino Solis MD [address] [place] [address] [address] [place] [address] documented as of this encounter Visit Diagnoses Not on filedocumented in this encounter Care Teams Director Of Student Financial Services Relationship Specialty Start Date End Date Ronaldo Kong MD [address] [place] [address] PCP - General General Internal Medicine 12/24/2210/19 Tanna Finch APRN [address] [place] [phone] PCP - General Nurse Practitioner 11/04/24 documented as of this encounter
--- OUTSIDE RECORDS SUMMARY | 2025-10-18 09:54 | XMS_ITS | Encounter Summary ---
Author Organization [employer] ([place], [place], [place], [place], [place]) Address [address] [place] [address] Care Team Providers Care Boring Machine Operator Helper Name Role Phone Ronaldo Kong MD Primary Care Provider [phone] Tanna Finch APRN Primary Care Provid er Encounter Details Date Type Department Care Team (Late st Contact Info) Description 06/08/2020 Transcribed Document [facility] [place] Medicine [address] [place] [address] ProviderJorje MD [address] [place] [address] Social History Tobacco Use Types Packs/Day [...] On: 06/08/2020 13:47 EDT by Zayra Simons, Director Internal Audit-Web Editor Care Management Progress Note Discharge Arrangements : [...] you Attend Multidisciplinary Rounds? : No Zayra Simons Social Worker-Web Editor - 06/08/2020 13:47 EDT Narrative Progress Note Narrative Progress Note : 06/08 Per chart, plan is for echo and LE venous dopplers today. Anticipate dc tomorrow. Continue to follow... Zayra Simons Social Worker-[facility] - 06/08/2020 13:47 EDT documented in this encounter Plan of Treatment Upcoming Encounters Date Type Department Care Team (Late st Contact Info) Description 11/01/2025 9:00 AM EST Office Visit [address] [address] 12/26/2025 10:00 AM EDT Office Visit [address] [address] Lino Solis MD [address] [place] [address] documented as of this encounter Visit Diagnoses Not on filedocumented in this encounter Care Teams Boring Machine Operator Helper Relationship Specialty Start Date End Date Ronaldo Kong MD [address] [place] [address] [place] [address] PCP - General General Internal Medicine 12/24/2210/19 Tanna Finch, OMAR [address] [place] [phone] PCP - General Nurse Practitioner 11/04/24 documented as of this encounter
--- OUTSIDE RECORDS SUMMARY | 2025-10-18 09:54 | XMS_ITS | Encounter Summary ---
Author Organization [employer] ([place], [place], [place], [place], [place]) Address [address] [place] [address] Care Team Providers Care Service Center Assistant Name Role Phone Ronaldo Kong MD Primary Care Provider [phone] Tanna Finch APRN Primary Care Provid er Encounter Details Date Type Department Care Team (Late st Contact Info) Description 06/06/2020 Transcribed Document [facility] [place] [facility] [place] [address] ProviderJorje MD [address] [place] [address] Social History Tobacco Use Types Packs/Day [...] on a routine basis. She presented to [facility] thi am with 2 wk hx of [...] Problem list: Medical Anxiety / SNOMED CT 78203180 / Confirmed Arthritis / SNOMED CT 0379750 / Confirmed Asthma / SNOMED CT 987906853 / Confirmed Borderline personality disorder / SNOMED CT 51496693 / Confirmed Cornea scar / SNOMED CT 543640572 / Confirmed Depression / SNOMED CT 919573909 / Confirmed Diverticulitis / SNOMED CT 479939635 / Confirmed DJD (degenerative joint disease) / SNOMED CT [id number] / Confirmed DM - Diabetes mellitus / SNOMED CT 655032702 / Confirmed Fibromyalgia / SNOMED CT 301912357 / Confirmed Folic acid deficiency / SNOMED CT 844495267 / Confirmed Glaucoma / SNOMED CT 00236422 / Confirmed History of obstructive sleep apnea / IMO 90018923 / Confirmed HTN - Hypertension / SNOMED CT 0861865210 / Confirmed Hypothyroid / SNOMED CT 816049599 / Confirmed Migraines / SNOMED CT 03362326 / Confirmed PTSD (post-traumatic stress disorder) / SNOMED CT [id number] / Confirmed Sleep apnea / SNOMED CT 667329069 / Confirmed Tobacco abuse / SNOMED CT 625620348 / Confirmed Tremors of nervous system / SNOMED CT 47174310 / Confirmed Vitamin D deficiency / SNOMED CT 86943645 / Confirmed Resolved: Endometriosis / SNOMED CT 3193689571 Resolved: Raynaud's disease / SNOMED CT 904220107 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, Active Problems (22) Anxiety Arthritis Asthma Borderline personality disorder Cornea scar Depression Diverticulitis DJD (degenerative joint disease) DM - Diabetes mellitus Fibromyalgia Folic acid deficiency Glaucoma History of obstructive sleep apnea HTN - Hypertension Hyperlipidemia Hypothyroid Migraines PTSD (post-traumatic stress disorder) Sleep apnea Tobacco abuse Tremors of nervous system Vitamin D deficiency Histories Past Medical History: Active DJD (degenerative joint disease) ([id number]) Fibromyalgia (132300597) Hypothyroid (399427125) HTN - Hypertension (8424969793) PTSD (post-traumatic stress disorder) ([id number]) Depression (742769547) DM - Diabetes mellitus (440292711) Asthma (377036604) Glaucoma (69306247) Diverticulitis (850294866) Tobacco abuse (047726115) Migraines (36024602) Sleep apnea (099424352) Vitamin D deficiency (76639510) Folic acid deficiency (755024280) Anxiety (48654964) Tremors of nervous system (09753956) Cornea scar (530306340) Borderline personality disorder (21343958) Arthritis (1995257) Resolved Endometriosis (1083822291): Resolved. Raynaud's disease (372793961): Resolved. 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 Family History: Entire family history is negative., NEGATIVE FOR PREMATURE CAD Procedure history: Hysterectomy. Neck fusion. Arthroscopic surgical procedure on knee (9099759442). Hip replacement (0315398270). Colonoscopy (899997902). Carpal tunnel release (625765059). Social History Social & Psychosocial Habits Alcohol [...] of motion, Normal strength. Integumentary: Warm, Dry, [place]. Neurologic: Alert, Oriented. Cognition and Speech: Oriented, [...] diet DM2- -Insulin coverage Electronically signed by [facility], [facility] Conversion Equipment Records Supervisor Cerner at 02/03/2023 4:48 PM CDT documented in this encounter Plan of Treatment Upcoming Encounters Date Type Department Care Team (Late st Contact Info) Description 11/01/2025 9:00 AM EST Office Visit [facility] Neurology - [address] [place] [address] 12/26/2025 10:00 AM EDT Office Visit [facility] [address] [facility] [address] [place] [address] Lino Solis MD [address] [place] [address] [address] [place] [address] documented as of this encounter Visit Diagnoses Not on filedocumented in this encounter Care Teams Service Center Assistant Relationship Specialty Start Date End Date Ronaldo Kong MD [address] [place] [address] PCP - General General Internal Medicine 12/24/2210/19 Tanna Finch APRN [address] [place] [phone] PCP - General Nurse Practitioner 11/04/24 documented as of this encounter
--- OUTSIDE RECORDS SUMMARY | 2025-10-18 09:54 | XMS_ITS | Encounter Summary ---
Author Organization [employer] ([place], [place], [place], [place], [place]) Address [address] [place] [address] Care Team Providers Care Textile Conservator Name Role Phone Ronaldo Kong MD Primary Care Provider [phone] Tanna Finch APRN Primary Care Provid er Encounter Details Date Type Department Care Team (Late st Contact Info) Description 06/06/2020 Transcribed Document [facility] [place] Medicine [facility] [place] [address] ProviderJorje MD [address] [place] [address] Social History Tobacco Use Types Packs/Day [...] - 06/06/2020 17:56 EDT Electronically signed by [facility], [facility] Conversion Administrative Office Specialist Cerner at 02/03/2023 4:59 PM CDT documented in this encounter Plan of Treatment Upcoming Encounters Date Type Department Care Team (Late st Contact Info) Description 11/01/2025 9:00 AM EST Office Visit [address] [place] [address] 12/26/2025 10:00 AM EDT Office Visit [address] [place] [address] Lino Solis MD [address] [place] [address] [address] [place] [address] documented as of this encounter Visit Diagnoses Not on filedocumented in this encounter Care Teams Textile Conservator Relationship Specialty Start Date End Date Ronaldo Kong MD [address] [place] [address] [place] [address] PCP - General General Internal Medicine 12/24/2210/19 Tanna Finch APRN [address] [place] [phone] PCP - General Nurse Practitioner 11/04/24 documented as of this encounter
--- OUTSIDE RECORDS SUMMARY | 2025-10-18 09:54 | XMS_ITS | Encounter Summary ---
Author Organization [employer] ([place], [place], [place], [place], [place]) Address [address] [place] [address] Care Team Providers Care Auto Wheel Alignment Specialist Name Role Phone Ronaldo Kong MD Primary Care Provider [phone] Tanna Finch APRN Primary Care Provid er Encounter Details Date Type Department Care Team (Late st Contact Info) Description 06/08/2020 Transcribed Document [facility] [place] Medicine [address] [place] [address] ProviderJorje MD [address] [place] [address] Social History Tobacco Use Types Packs/Day [...] 07/14/2009 Document Revised: 12/23/2019 Document Reviewed: 12/23/2019 [employer] Patient Education ? 2020 [employer]. Heart Failure Heart failure means your heart has trouble pumping blood. This makes it hard for your body to work well. Heart failure is usually a long-term (chronic) condition. You must take good care of yourself and follow your treatment plan from your doctor. Follow these instructions at home: Medicines ??? Take xobf-xoo-wjmrwoh and prescription medicines only as told by your doctor. ? Do not stop taking your medicine unless your doctor told you to do that. ? Do not skip any doses. ? Refill your prescriptions before you run out of medicine. You need your medicines every day. Eating and drinking ??? Eat heart-healthy foods. Talk with a diet and client engagement specialist (dietitian) to make an eating plan. ??? [...] if told by your doctor. Ask your client engagement specialist to recommend heart-healthy seasonings. ??? Cook in [...] 07/14/2009 Document Revised: 06/29/2019 Document Reviewed: 10/27/2017 [employer] Interactive Patient Education ? 2020 [employer] Cardiovascular Heart Failure, Self Care Heart [...] when you have heart failure Medicines Take ahfd-ajs-ofspnbm and prescription medicines only as told by [...] Reviewed: 01/18/2020 Elsevier Patient Education ? 2019 [employer] documented in this encounter Plan of Treatment Upcoming Encounters Date Type Department Care Team (Late st Contact Info) Description 11/01/2025 9:00 AM EST Office Visit [facility] [address] [facility] [address] [place] [address] 12/26/2025 10:00 AM EDT Office [facility] [address] [place] [address] Lino Solis MD [address] [place] [address] [address] [place] [address] documented as of this encounter Visit Diagnoses Not on filedocumented in this encounter Care Teams Auto Wheel Alignment Specialist Relationship Specialty Start Date End Date Ronaldo Kong MD [address] [place] [address] PCP - General General Internal Medicine 12/24/2210/19 Tanna Finch APRN [address] [place] [phone] PCP - General Nurse Practitioner 11/04/24 documented as of this encounter
--- OUTSIDE RECORDS SUMMARY | 2025-10-18 09:54 | XMS_ITS | Encounter Summary ---
Author Organization [employer] ([place], [place], [place], [place], [place]) Address [address] [place] [address] Care Team Providers Care Communications Lead Name Role Phone Ronaldo Kong MD Primary Care Provider [phone] Tanna Finch APRN Primary Care Provid er Encounter Details Date Type Department Care Team (Late st Contact Info) Description 06/08/2020 Transcribed Document [facility] [place] [address] [place] [address] ProviderJorje MD [address] [place] [address] Social History Tobacco Use Types Packs/Day [...] Given to Patient : Yes Emperatriz Bell, DANIELA-Resource - 06/08/2020 16:08 EDT documented in this encounter Plan of Treatment Upcoming Encounters Date Type Department Care Team (Late st Contact Info) Description 11/01/2025 9:00 AM EST Office Visit [facility] [address] [place] [address] [address] [place] [address] 12/26/2025 10:00 AM EDT Office Visit [address] [place] [address] Lino Solis MD [address] [place], [place] [address] [facility] [place] [address] [place] [address] documented as of this encounter Visit Diagnoses Not on filedocumented in this encounter Care Teams Communications Lead Relationship Specialty Start Date End Date Ronaldo Kong MD [address] [place] [address] PCP - General General Internal Medicine 12/24/2210/19 Tanna Finch APRN [address] [place] [phone] PCP - General Nurse Practitioner 11/04/24 documented as of this encounter
--- OUTSIDE RECORDS SUMMARY | 2025-10-18 09:54 | XMS_ITS | Encounter Summary ---
Author Organization [employer] ([place], [place], [place], [place], [place]) Address [address] [place] [address] Care Team Providers Care Bi Architect Name Role Phone Ronaldo Kong MD Primary Care Provider [phone] Tanna Finch APRN Primary Care Provid er Encounter Details Date Type Department Care Team (Late st Contact Info) Description 06/08/2020 Transcribed Document [facility] [place] [address] ProviderJorje MD [address] [place] [address] Social History Tobacco Use Types Packs/Day [...] Policy Numbers : Insurance 1 Health Plan: [place] Medicaid Policy Number: [id number] Authorization Number: Insurance Primary Name : [place] Medicaid [id number] Authorization Status-Primary : Denial - admission Reference Number-Primary : [id number] Authorized Service Begin Date-Primary : 06/06/2020 EDT Authorization Comments-Primary : [place] Medicaid denied per fax for inpt Historical Authorization Comments-Primary : Comment 1: Uploaded clinicals to [employer] via [employer]. (AGUILAR KERR RN-Utilization Review 06/07/2020 11:54) MARU KHAN RN-Utilization Review - 06/08/2020 11:28 EDT documented in this encounter Plan of Treatment Upcoming Encounters Date Type Department Care Team (Late st Contact Info) Description 11/01/2025 9:00 AM EST Office Visit [facility] Neurology [address] [place] [address] 12/26/2025 10:00 AM EDT Office Visit [address] [place] [address] Lino Solis MD [address] [place] [address] [address] [place] [address] documented as of this encounter Visit Diagnoses Not on filedocumented in this encounter Care Teams Bi Architect Relationship Specialty Start Date End Date Ronaldo Kong MD [address] [place] [address] PCP - General General Internal Medicine 12/24/2210/19 Tanna Finch APRN [address] [place] [phone] PCP - General Nurse Practitioner 11/04/24 documented as of this encounter
--- OUTSIDE RECORDS SUMMARY | 2025-10-18 09:54 | XMS_ITS | Encounter Summary ---
Author Organization [employer] ([place], [place], [place], [place], [place]) Address [address] [place] [address] Care Team Providers Care Academic Intern Name Role Phone Krissy Pfeiffer MD Primary Care Provider [phone] Tanna Finch APRN Primary Care Provid er Encounter Details Date Type Department Care Team (Late st Contact Info) Description 05/18/2019 Transcribed Document [facility] Family Medicine [address] [place] [address] ProviderJorje MD [address] [place] [address] Social History Tobacco Use Types Packs/Day [...] Jorje ProviderMD - 05/18/2019 4:04 PM CDT [facility] [place] [address] FRANNIE NUÑEZ :1970 [...] month Comments Follow-up as instructed Where: [address] [facility] [address] [place] [address]- [place] (1) Medications What How Much When Instructions [...] you are awake and alert. ??? Take lqoi-fkw-zropdky and prescription medicines only as told by [...] 07/26/2014 Document Revised: 03/09/2017 Document Reviewed: 01/24/2017 [employer] Patient Education ?? 2019 [employer]. Transradial Angiogram Transradial angiogram is an imaging [...] including vitamins, herbs, eye drops, creams, and foss-cpw-uvulyfz medicines. ??? Any problems you or family [...] 06/29/2013 Document Revised: 06/07/2017 Document Reviewed: 09/08/2016 [employer] Patient Education ?? 2019 [employer]. Radial Site Care Refer to this sheet [...] 11/07/2011 Document Revised: 03/12/2017 Document Reviewed: 04/23/2015 [employer] Patient Education ?? 2019 [employer] Emergency Awareness and Preventative Care STROKE [...] Assistance with quitting is available by contacting 1-370-WALS-NOW. This is a free resource providing counseling, [...] was given the opportunity to ask questions. Patient/Supervisor Public Health Nursing Name: Patient/Supervisor Public Health Nursing Signature: Relationship to Patient: Clinician/Hospital Supervisor Public Health Nursing Signature: Date: documented in this encounter Plan of Treatment Upcoming Encounters Date Type Department Care Team (Late st Contact Info) Description 11/01/2025 9:00 AM EST Office Visit [facility] Neurology - [facility] [address] [facility] [address] [place] [address] 12/26/2025 10:00 AM EDT Office Visit [facility] Neurology - [address] [facility] [address] [place] [address] Lino Solis MD [address] [facility] [address] [place] [address] documented as of this encounter Visit Diagnoses Not on filedocumented in this encounter Care Teams Academic Intern Relationship Specialty Start Date End Date Krissy Pfeiffer MD [address] [place] [address] PCP - General General Internal Medicine 12/24/2210/19 Tanna Finch APRN [address] [place] [phone] PCP - General Nurse Practitioner 11/04/24 documented as of this encounter
--- OUTSIDE RECORDS SUMMARY | 2025-10-18 09:54 | XMS_ITS | Encounter Summary ---
Author Organization [employer] ([place], [place], [place], [place], [place]) Address [address] [place] [address] Care Team Providers Care Drupal Architect Name Role Phone Ronaldo Kong MD Primary Care Provider [phone] Tanna Finch APRN Primary Care Provid er Encounter Details Date Type Department Care Team (Late st Contact Info) Description 06/06/2020 Transcribed Document [facility] [place] [address] [place] [address] ProviderJorje MD [address] [place] [address] Social History Tobacco Use Types Packs/Day [...] Description 11/01/2025 9:00 AM EST Office [facility] [address] [place] [address] 12/26/2025 10:00 AM EDT Office Visit [facility] - [address] [facility] [address] [place] [address] Lino Solis MD [address] [place] [address] [address] [place] [address] documented as of this encounter Visit Diagnoses Not on filedocumented in this encounter Care Teams Drupal Architect Relationship Specialty Start Date End Date Ronaldo Kong MD [address] [place] [address] PCP - General General Internal Medicine 12/24/2210/19 Tanna Finch APRN [address] [place] [phone] PCP - General Nurse Practitioner 11/04/24 documented as of this encounter
--- OUTSIDE RECORDS SUMMARY | 2025-10-18 09:54 | XMS_ITS | Encounter Summary ---
Author Organization [employer] ([place], [place], [place], [place], [place]) Address [address] [place] [address] Care Team Providers Care Associate Oracle Retail Name Role Phone Ronaldo Kong MD Primary Care Provider [phone] Tanna Finch APRN Primary Care Provid er Encounter Details Date Type Department Care Team (Late st Contact Info) Description 06/06/2020 Transcribed Document [facility] [place] [address] ProviderJorje MD [address] [place] [address] Social History Tobacco Use Types Packs/Day [...] : Grossly 5/5; AROM WFL throughout Hand Drywall Finisher Test : WFL bilaterally Fine Motor Coordination [...] Duration Rehab : One day LIGIA MAYER OTR/L - 06/07/2020 11:23 EDT Pain Assessment Pain Scaled Used : 0-10 Pain scale Pain Score Pre-Intervention : 0 LIGIA MAYER OTR/L - 06/07/2020 11:23 EDT Image 1 - Images currently included in the form version of this document have not been included in the text rendition version of the form. [place] OT Charges OT Selfcare/Hm Mgmt Ea 15 Min : 1 OT Eval Low Complexity : 1 LIGIA MAYER OTR/L - 06/07/2020 11:23 EDT Electronically signed by [facility], [facility] Conversion Concert Promoter Cerner at 02/03/2023 4:49 PM CDT documented in this encounter Plan of Treatment Upcoming Encounters Date Type Department Care Team (Late st Contact Info) Description 11/01/2025 9:00 AM EST Office Visit [facility] Neurology - [address] [place] [phone] 12/26/2025 10:00 AM EDT Office Visit [facility] - [address] [place] [address] Lino Solis MD [address] [place] [address] [address] [place] [address] documented as of this encounter Visit Diagnoses Not on filedocumented in this encounter Care Teams Associate Oracle Retail Relationship Specialty Start Date End Date Ronaldo Kong MD [address] [place] [address] [place] [address] PCP - General General Internal Medicine 12/24/2210/19 Tanna Finch, [address] [place] [address] PCP - General Nurse Practitioner 11/04/24 documented as of this encounter
--- OUTSIDE RECORDS SUMMARY | 2025-10-18 09:54 | XMS_ITS | Encounter Summary ---
Author Organization [employer] ([place], [place], [place], [place]) Address [address] [place] [address] Care Team Providers Care Fish And Game Club Manager Name Role Phone Ronaldo Kong MD Primary Care Provider [phone] Tanna Finch APRN Primary Care Provid er Encounter Details Date Type Department Care Team (Late Contact Info) Description 05/06/2019 Transcribed Document [facility] [place] [address] [place] [address] ProviderJorje MD [address] [place] [address] Social History Tobacco Use Types Packs/Day [...] Department Care Team (Late Contact Info) Description 11/01/2025 9:00 AM EST Office Visit [facility] Neurology - [address] [place] [address] 12/26/2025 10:00 AM EDT Office Visit [facility] Neurology - [address] [place] [address] Lino Solis MD [address] [place] [address] [address] [place] [address] documented as of this encounter Visit Diagnoses Not on filedocumented in this encounter Care Teams Fish And Game Club Manager Relationship Specialty Start Date End Date Ronaldo Kong MD [address] [place] [address] PCP - General General Internal Medicine 12/24/2210/19 Tanna Finch APRN [address] [place] [phone] PCP - General Nurse Practitioner 11/04/24 documented as of this encounter
--- OUTSIDE RECORDS SUMMARY | 2025-10-18 09:54 | XMS_ITS | Encounter Summary ---
Author Organization [employer] ([place], [place], [place], [place], [place]) Address [address] [place] [address] Care Team Providers Care Repairer Controller Tester Name Role Phone Krissy Pfeiffer MD Primary Care Provider [phone] Tanna Finch APRN Primary Care Provid er Encounter Details Date Type Department Care Team (Late st Contact Info) Description 06/08/2020 Transcribed Document [facility] [place] [address] [place] [address] ProviderJorje MD [address] [place] [address] Social History Tobacco Use Types Packs/Day [...] Jorje ProviderMD - 06/08/2020 2:53 PM CDT [address] [address] FRANNIE NUÑEZ :1970 Visit Time:06/06/2020 [...] Within 1 to 2 weeks Where: [address] [facility] [address] [place] (1) Medications What How Much When Instructions [...] 07/14/2009 Document Revised: 12/23/2019 Document Reviewed: 12/23/2019 [employer] Patient Education ?? 2020 [employer] Heart Failure, Self Care Heart failure [...] when you have heart failure Medicines Take wlol-khe-ohnqqeb and prescription medicines only as told by [...] 01/18/2020 Document Revised: 01/17/2020 Document Reviewed: 01/18/2020 [employer] Patient Education ?? 2020 [employer]. Heart Failure Heart failure means your heart has trouble pumping blood. This makes it hard for your body to work well. Heart failure is usually a long-term (chronic) condition. You must take good care of yourself and follow your treatment plan from your doctor. Follow these instructions at home: Medicines ??? Take xxsy-zkd-igsebgf and prescription medicines only as told by your doctor. ? Do not stop taking your medicine unless your doctor told you to do that. ? Do not skip any doses. ? Refill your prescriptions before you run out of medicine. You need your medicines every day. Eating and drinking ??? Eat heart-healthy foods. Talk with a diet and accounting support specialist (dietitian) to make an eating plan. [...] if told by your doctor. Ask your accounting support specialist to recommend heart-healthy seasonings. ??? Cook [...] 07/14/2009 Document Revised: 06/29/2019 Document Reviewed: 10/27/2017 [employer] Patient Education ?? 2020 [employer]. Emergency Awareness and Preventative Care STROKE is [...] Assistance with quitting is available by contacting 9-506-BWYG-NOW. This is a free resource providing counseling, [...] range between ( 1.0 and 7.0 ) [place] #: 0.57 K/uL -- Normal range between ( 0.24 and 0.82 ) [place] #: 0.20 K/uL -- Normal range between ( 0.04 and 0.54 ) [place] %: 4.7 % -- Normal range between [...] ) Urine Bilirubin Dipstick: Negative Urine Specific [place]: 1.007 -- Normal range between ( 1.005 and 1.030 ) Urine Chemistry 06/07/2020 2:21 AM Osmolality Urine: 353 mOsm/kg -- Normal range between ( 250 and 900 ) Sodium Ur [place]: 97 mMole/Liter General Chemistry 06/08/2020 12:17 PM [...] was given the opportunity to ask questions. Patient/Assembler Handbags Name: Patient/Assembler Handbags Signature: Relationship to Patient: Clinician/Hospital Assembler Handbags Signature: Date: Electronically signed by Jordon, [facility] Conversion Dental Assisting Instructor Cerner at 02/03/2023 4:37 PM CDT documented in this encounter Plan of Treatment Upcoming Encounters Date Type Department Care Team (Late st Contact Info) Description 11/01/2025 9:00 AM EST Office Visit [facility] Neurology - [address] [facility] [employer] [facility] [address] [place] [address] 12/26/2025 10:00 AM EDT Office Visit [facility] Neurology - [address] [place] [address] Lino Solis MD [facility] [employer] [facility] [address] [place], [place] [phone] documented as of this encounter Visit Diagnoses Not on filedocumented in this encounter Care Teams Repairer Controller Tester Relationship Specialty Start Date End Date Krissy Pfeiffer MD [address] [place] [address] [place] [address] PCP - General General Internal Medicine 12/24/2210/19 Tanna Finch APRN [address] [place] [phone] PCP - General Nurse Practitioner 11/04/24 documented as of this encounter
--- OUTSIDE RECORDS SUMMARY | 2025-10-18 09:54 | XMS_ITS | Encounter Summary ---
Author Organization [facility] Address [address] [place] [address] Care Team Providers Care Bender Machine Name Role Phone System, Provider Not In [...] or training? Not on file Preferred Language Turkmen 03/03/2024 PHQ-2 Answer Date Recorded Retired PHQ-9: [...] Description 11/13/2025 11:00 AM EST Office Visit [facility] CARDIOLOGY [address] [address] Daphney Hall MD [address] [address] 11/13/2025 11:00 AM EST Clinical Support No Requirements [facility] [address] [address] 12/20/2025 1:30 PM EST Office Visit [facility] [address] [phone] Daphney Hall MD [address] [address] 12/20/2025 1:30 PM EST Clinical Support No Requirements [facility] [address] [address] documented as of this encounter Visit Diagnoses Not on filedocumented in this encounter Additional Health Concerns Assessment Noted Time PHQ-2 Depression Total Score: 3 07/18/20 24 11:28 AM EDT documented as of this encounter Care Teams Bender Machine Relationship Specialty Start Date End Date System, [place] [address] PCP - General 02/14/25 documented as of this encounter
--- OUTSIDE RECORDS SUMMARY | 2025-10-18 09:54 | XMS_ITS | Encounter Summary ---
Author Organization [facility] Address [address] [place] [address] Care Team Providers Care Pulmonologist Intensivist Name Role Phone System, Provider Not In Primary Care Provider Un available Reason for Visit * Reason Comments Med Refill Encounter Details Date Type Department Care Team (Late st Contact Info) Description 09/05/2025 Refill [facility] CARDIOLOGY [address] [place] [address] Dania Gray APRN [address] [place] [address] Med Refill Social History Tobacco [...] [facility] [address] [phone] Daphney Hall MD [address] [address] 11/13/2025 11:00 AM EST Clinical Support No Requirements [facility] CARDIOLOGY [address] [phone] 12/20/2025 1:30 PM EST Office Visit [facility] [address] [address] Daphney Hall MD [address] [address] 12/20/2025 1:30 PM EST Clinical Support No Requirements [facility] CARDIOLOGY [address] [address] documented as of this encounter Visit Diagnoses Diagnosis Chronic diastolic (congestive) heart failure documented in this encounter Additional Health Concerns Assessment Noted Time PHQ-2 Depression Total Score: 3 07/18/20 24 11:28 AM EDT documented as of this encounter Care Teams Pulmonologist Intensivist Relationship Specialty Start Date End Date System, [place] [address] PCP - General 02/14/25 documented as of this encounter
--- OUTSIDE RECORDS SUMMARY | 2025-10-18 09:54 | XMS_ITS | Encounter Summary ---
Author Organization [employer] ([place], [place], [place], [place], [place]) Address [address] [place] [address] Care Team Providers Care Purchasing Analyst Name Role Phone Ronaldo Kong MD Primary Care Provider [phone] Tanna Finch APRN Primary Care Provid er Encounter Details Date Type Department Care Team (Late st Contact Info) Description 06/08/2020 Transcribed Document [facility] Family Medicine [address] [place] [address] ProviderJorje MD [address] [place] [address] Social History Tobacco Use Types Packs/Day [...] On: 06/08/2020 14:59 EDT by Zayra Simons, Opal Polisher-Middle School Teacher Final Discharge Planning Discharge Arrangements : Patient [...] : No Discharge To Care Management : Home/Residential/Retirement or Self Care - Zayra Simons Opal Polisher-Middle School Teacher - 06/08/2020 14:59 EDT Final Narrative Note Final Narrative Note : 06/08 Pt has dc orders in place. No dc needs noted. Zayra Simons Social Worker-Middle School Teacher - 06/08/2020 14:59 EDT documented in this encounter Plan of Treatment Upcoming Encounters Date Type Department Care Team (Late st Contact Info) Description 11/01/2025 9:00 AM EST Office Visit [facility] Neurology - [address] [address] 12/26/2025 10:00 AM EDT Office Visit [facility] [place] - [address] [address] Lino Solis MD [address] [place] [address] [place] [address] documented as of this encounter Visit Diagnoses Not on filedocumented in this encounter Care Teams Purchasing Analyst Relationship Specialty Start Date End Date Ronaldo Kong MD [address] [place] [address] [place] [address] PCP - General General Internal Medicine 12/24/2210/19 Tanna Finch, INTERNAL CONTROL ANALYST [address] [place] [phone] PCP - General Nurse Practitioner 11/04/24 documented as of this encounter
--- OUTSIDE RECORDS SUMMARY | 2025-10-18 09:54 | XMS_ITS | Clinical Summary ---
Author Organization [facility] Address [address] [id number] Care Team Providers Care Manager Bank Name Role Phone System, Provider Not In [...] ONCE A DAY 30 tablet 3 04/08/20 Active lamoTRIgine (LaMICtal) 150 MG tablet Take 1 tablet by mouth Daily. 2 tablets once daily Active nystatin (MYCOSTATIN) 728952 UNIT/GM powderIndications: Candidal intertrigo Apply topically to [...] by mouth every night at bedtime. 08/19/20 Active aspirin 81 MG EC tablet Take 1 tablet by mouth Daily. Active dexlansoprazole (DEXILANT) 60 MG capsule TAKE ONE CAPSULE BY MOUTH ONCE a DAY Active Linzess 145 MCG capsule capsule TAKE ONE CAPSULE BY MOUTH ONCE A DAY 30 MINUTES BEFORE MEAL 05/12/20 Active desvenlafaxine (PRISTIQ) 50 MG 24 hr tablet Take 1 tablet by mouth Daily. 05/08/20 25 Active ondansetron ODT (ZOFRAN-ODT) 4 MG disintegrating tablet DISSOLVE 2 TABLETS ON THE TONGUE 2 TIMES A DAY NEEDED 05/12/20 25 Active spironolactone (ALDACTONE) 25 MG tablet Take 1 tablet by mouth Daily. 30 tablet 11 07/19/20 25 Active atorvastatin (LIPITOR) 80 MG tablet Take 1 tablet by mouth Daily. 08/16/20 Active vitamin B-12 (CYANOCOBALAMIN) 1000 MCG tablet TAKE 1 TABLET BY MOUTH ONCE A DAY BEFORE MEAL 08/16/20 25 Active Restasis 0.05 % ophthalmic emulsion instill 1 drop into THE affected eye(s) 2 TIMES A DAY 08/16/20 Active famotidine (PEPCID) 20 MG tablet Take 1 tablet by mouth Every 12 (Twelve) Hours. 08/16/20 25 Active folic acid (FOLVITE) 1 MG tablet Take 1 tablet by mouth Daily. 08/16/20 25 Active nicotine (NICODERM CQ) 21 MG/24HR patch APPLY ONE PATCH TO SKIN EVERY DAY REMOVE OLD PATCH BEFORE APPLYING NEW PATCH Active pregabalin (LYRICA) 25 MG capsule Take 1 capsule by mouth. 08/21/20 25 Active Ozempic, 0.25 or 0.5 MG/DOSE, 2 MG/3ML solution pen-injector INJECT 0.5 MG SUBCUTANEOUSLY ONCE WEEKLY Active carvedilol (COREG) 12.5 MG tablet TAKE ONE TABLET BY MOUTH 2 TIMES A DAY 180 tablet 1 09/05/20 25 Active furosemide (LASIX) 20 MG tabletIndications: Chronic diastolic (congestive) heart failure TAKE ONE TABLET BY MOUTH 2 TIMES A DAY. TAKE ONE TABLET NEEDED FOR AGRESSIVE EDEMA OR WEIGHT GAIN GREATER THAN 2 POUNDS OVER 24 HOURS 180 tablet 1 09/05/20 25 Active Active Problems Problem Noted Date [...] complaints of nausea. This has been a snf issue with her, referred to gastroenterology back [...] previous gastroenterology referral, Dr. Wei Diamond in [place]. Denies any associated vomiting, diarrhea or abdominal pain with her nausea. States she is lost 30 pounds in the last 2 months due to her nausea and lack of appetite -Patient Zofran increased to 8 mg every 6 hours as needed -Per a prior discussion with her and Dr. Kong referral to Dr. Wei Diamond in [place] placed today. She is going to be [...] PM EDT): Patient had lab testing through [facility] ER yesterday having been diagnosed [...] A1c of 7.6% during recent hospitalization at [facility], previously 6.8% in 03/2024. She [...] Update yearly screening low-dose chest CT with 83-tdzj-wyzv history of smoking ongoing. Advised regarding need for smoking cessation for health risk reduction. BRENDA treated with BiPAP 11/30/2023 Assessment & Plan (01/17/2025 11:04 AM EDT): She is currently on BiPAP therapy and is using a [employer] BiPAP device. She feels like it is [...] A1c of 7.6% during recent hospitalization at [facility], previously 6.8% in 03/2024. She [...] will refer for second opinion with Dr. Wei Case of GI rather than returning back [...] EST): No evidence of coronary disease per [facility] in 12/2022, continue risk factor modification. [...] drinking soda. She has not utilized any jobn-lof-kbgfgfa medications such as AZO for her symptoms. [...] Assessment & Plan (11/30/2023 6:11 PM EST): 18-dqde-ceow smoker at 1 pack/day. Strongly advised need [...] study. Proceed with left heart cath at [facility] Assessment & Plan (12/18/2022 5:28 PM EST): She was last seen November 25, 2022 for an ER follow-up on chest pain that she described as very severe in nature and very intense onset. Her pain was a 10 out of 10 and radiating from her left neck down her left arm. At the ER she had serial troponins to rule out an NV. Today she reports that she has had [...] and presented to the emergency room at [facility] about 1 week ago. She had an ER visit for chest pain. Her chest pain was a 10 out of 10 and radiating to her left neck and her left arm. At the emergency room she had serial troponins to rule out NV. She had a chest x-ray showing her [...] check. I have requested her labs from [facility]. She was given oral potassium [...] cardiology referral to Dr. Jerson Win in [place], and per her request we will make [...] diastolic (congestive) heart failure 06/2022 Overview (11/30/2023): [facility] 12/2022 with normal coronary arteries Echocardiogram [...] & Plan (08/22/2025 3:00 PM EST): {CHF (Optional):40029} Orders: XR Chest 2 View Assessment & Plan (07/26/2025 9:41 AM EDT): {CHF (Optional):87956} Orders: XR Chest 2 View; Future proBNP; [...] EF 61 to 65% in 07/2023 with [facility] revealing normal coronary arteries in 12/2022. [...] 1:05 PM EDT): Status post hospitalization at [facility] in 04/2024 for suicidal ideation without plan, [...] ideation without plan, no HI, admitted to [facility] from 04/23 through 04/29/2024, discharged 4 [...] Pristiq. She saw her mental health MANUFACTURING ANALYST provider yesterday with a follow-up to be pursued in 1 month, and is scheduled to follow-up with her standard counselor at [facility] tomorrow. Assessment & Plan (02/23/2024 2:32 [...] moods reported. No SI/HI. Keep related to middleware consultant follow- up. Dyspepsia 05/27/2022 Assessment & Plan (07/18/2024 12:59 PM EDT): Continues dyspeptic symptoms despite taking pantoprazole 40 mg twice daily, history of EGD in 2020 revealing some gastritis. She had further evaluation of symptoms ultimately negative for gallbladder disease including HIDA scan unremarkable. She is awaiting appointment to see Dr. Diamond of GI for second opinion regarding symptoms after [...] Plan (08/22/2025 3:00 PM EST): {Hypertension is (optional):[id number]} Assessment & Plan (07/26/2025 9:41 AM EDT): {Hypertension is (optional):[id number]} Assessment & Plan (09/22/2024 8:44 PM EST): [...] having been discontinued during recent hospitalization at [facility] given acute kidney injury with [...] apnea. Her original study was completed at [facility]. She is currently on a BiPAP therapy. Her download has been requested from [facility]. She reports that she is a faithful user of PAP therapy. She denies any excessive daytime sleepiness or napping. She now wishes to follow her sleep apnea at this clinic. Supply order is sent to the DME of her choice. I did receive her sleep study from [facility] this is a split study [...] Encounters Date Type Department Care Team Description 10/16/2025 Refill [facility] [address] [place] [address] [place] [phone] Ronaldo Kong MD 10/16/2025 Refill [facility] [address] [place] [address] [place]ULL[place] [phone] Ronaldo Kong MD 10/16/2025 Refill [facility] [address] [place] [address] [place]ULL[place] [phone] Ronaldo Kong MD 09/06/2025 Telephone [facility] [address] [place] [phone] Daphney Hall MD 09/05/2025 Refill [facility] [address] [place] [phone] Dania Gray APRN Med Refill 08/22/2025 2:30 PM EST Office Visit [facility] [address] [place] [phone] Sophy Mcgraw APRN Swelling of lower extremity (Primary Dx); Shortness of breath; Primary hypertension; Pacemaker; BRENDA (obstructive sleep apnea); Nonrheumatic mitral valve regurgitation; Chronic diastolic (congestive) heart failure; Pure hypercholesterolemia 08/22/2025 Travel 07/26/2025 9:30 AM EDT Office Visit [facility] [address] [place] [phone] Sophy Mcgraw APRN Swelling of lower extremity (Primary Dx); Shortness of breath; Primary hypertension; Pacemaker; Pure hypercholesterolemia; BRENDA (obstructive sleep apnea); Nonrheumatic mitral valve regurgitation; Chronic diastolic (congestive) heart failure 07/26/2025 Travel 07/24/2025 Travel 07/18/2025 Telephone [facility] [address] [place] [phone] Daphney Hall MD CRISTEN K WAESPE, MD- MEDICAL CONCERN from Last 3 Months Immunizations Immunization Administration Dates Next Due COVID-19 (judo) Purple Cap Monovalent 02/10/20 21,01/19/2021 Fluzone >6mos [...] or training? Not on file Preferred Language Tanzanian 03/03/2024 PHQ-2 Answer Date Recorded Retired PHQ-9: [...] 11/13/2025 11:00 AM EST Office Visit [facility] [place] [phone] Daphney Hall MD CLINIC [place] [address] 11/13/2025 11:00 AM EST Clinical Support No Requirements [facility] [address] [place] [address] [place] [phone] 12/20/2025 1:30 PM EST Office Visit [facility] [place] [phone] Daphney Hall MD [address] [place] [address] LI[place]ETH [place] [address] 12/20/2025 1:30 PM EST Clinical Support No Requirements [facility] [place] [phone] Health Maintenance Due [...] 04/10/2023 04/10/2022 DIABETIC EYE EXAM 06/24/2024 06/24/2023 (Pa carolann-Reported (Performed Externally)) ANNUAL PHYSICAL 11/30/2024 11/30/2023 DIABETIC [...] 11/21/2024, 10/17/2024 Medical Devices Implanted Type Area Whizzer Operator Device Identifier Shelf Expiration Date Model / Serial / Lot Hip Implant Knee Implant Hemost Abs Surgicel Pwdr 3gm - [id number] Implanted:Qty : 1 on 08/12/2022 by Daphney Hall MD at [facility] Implant [employer] J AND J [id number] / / Kt Ld Stim Tined Axonics W/2/Sty Str/Crv - [id number] - [id number] Implanted:Qty : 1 on 08/13/2023 by Reta Lee MD at [facility] Implant N/A: Sacrum [employer] 02/05/2026 1201 / [id number] / Neurostm Sacral/Nerv Axonics Nonrechg W/Torq Wrench - [id number] - [id number] Implanted:Qty : 1 on 08/13/2023 by Reta Lee MD at [facility] Implant N/A: Sacrum [employer] 03/11/2024 4101 / [id number] / Ld Pm Tendril Sts 6f58cm [id number] - [id number] - [id number] Implanted:Qty : 1 on 08/12/2022 by Daphney Hall MD at [facility] Lead [employer] 03/18/[id number] / [id number] / Ld Pm Tendril Sts 6f52cm [id number] - [id number] - [id number] Implanted:Qty : 1 on 08/12/2022 by Daphney Hall MD at [facility] Lead [employer] 01/16/[id number] / [id number] / Gen Pm Assurity Mri Dr Foster [id number] - [id number] - [id number] Implanted:Qty : 1 on 08/12/2022 by Daphney Hall MD at [facility] Pacemaker [employer] 01/17/2024 [id number] / [id number] / Pain Pump Pain Pump Procedures Procedure [...] BLOOD ORDERABLES Final Result Performing Organization Address [facility]/ZIP Co de Phone Number [facility]
[address] [place] [address], [place] [phone] * Pulmonary Results Scan (07/26/2025) Sophy Mcgraw APRN PFT ORDERABLES Final Resu lt * Lipid Panel (03/08/2025) Blood Daphney Hall MD LAB BLOOD ORDERABLES Final R esult Performing Organization Address [facility] Co de Phone Number [facility]
[address] [place] [address], * (ABNORMAL) POC Glycosylated Hemoglobin (Hb A1C) (07/18/2024 12:56 PM EDT) Hemoglobin A1C 6.3(A) 4.5 - 5.7 % [facility] Lot Number [id number] [facility] Expiration Date 04/07/2026 [facility] Blood 07/18/2024 12:5 6 PM EDT Ronaldo Kong MD POINT OF CARE TEST ORDERABLES Final Result Performing Organization Address [facility] Co de Phone Number [facility]
[address] [place] [address], * CT Chest Low Dose Cancer Screening [...] support the diagnosis of acute HCV infection. [facility] Hepatitis C Virus (HCV) RNA, Diagnosis, VALE (447287) and Hepatitis C Virus (HCV) Antibody with reflex to Quantitative Real-time PCR (041944). Blood Structure of left upper limb / Unknown 11/27/2022 2:35 PM EST 11/27/2022 Comment:Blood Release to pat i Narrative [facility] ([facility]) - 11/28/2022 10:07 AM EST Performed at: [address] [id number] Sales Audit Clerk: Walter Corona PhD, Phone: [phone] us Ronaldo Kong MD LAB BLOOD ORDERABLES Final Res ult [facility] ([facility]) [address] [place] [address], [place] [phone] [facility] [address] [place] [address], [place] [phone] from Last 3 Months or Most Recently Relevant to Health Maintenance Insurance [facility] Care Teams Manager Bank Relationship Specialty Start Date End Date System, [place] [address] PCP - General 02/14/25
--- OUTSIDE RECORDS SUMMARY | 2025-10-18 09:54 | XMS_ITS | Encounter Summary ---
Author Organization [employer] ([place], [place], [place], [place], [place]) Address [address] [place] [address] Care Team Providers Care Mothers Helper Name Role Phone Ronaldo Kong MD Primary Care Provider [phone] Tanna Finch APRN Primary Care Provid er Encounter Details Date Type Department Care Team (Late st Contact Info) Description 06/06/2020 Transcribed Document [facility] Family Medicine [address] [place] [address] ProviderJorje MD [address] [place] [address] Social History Tobacco Use Types Packs/Day [...] 16:05 EDT Pain Scale Intensity : 0 Emperatriz Bell RN-Resource - 06/07/2020 16:05 EDT Image 4 - Images currently included in the form version of this document have not been included in the text rendition version of the form. documented in this encounter Plan of Treatment Upcoming Encounters Date Type Department Care Team (Late st Contact Info) Description 11/01/2025 9:00 AM EST Office Visit [facility] Neurology - [address] [facility] [address] [place] [address] 12/26/2025 10:00 AM EDT Office Visit [facility] - [address] [place] [address] Lino Solis MD [address] [place] [address] [address] [place] [address] documented as of this encounter Visit Diagnoses Not on filedocumented in this encounter Care Teams Mothers Helper Relationship Specialty Start Date End Date Ronaldo Kong MD [address] [place] [address] PCP - General General Internal Medicine 12/24/2210/19 Tanna Finch APRN [address] [place] [phone] PCP - General Nurse Practitioner 11/04/24 documented as of this encounter
--- OUTSIDE RECORDS SUMMARY | 2025-10-18 09:54 | XMS_ITS | Encounter Summary ---
Author Organization [employer] ([place], [place], [place], [place], [place]) Address [address] [place] [address] Care Team Providers Care Corporate Events Director Name Role Phone Ronaldo Kong MD Primary Care Provider [phone] Tanna Finch APRN Primary Care Provid er Encounter Details Date Type Department Care Team (Late st Contact Info) Description 05/06/2019 Transcribed Document [facility] [place] [facility] [place] [address] ProviderJorje MD [address] [place] [address] Social History Tobacco Use Types Packs/Day [...] Description 11/01/2025 9:00 AM EST Office Visit [facility] [address] [place] [address] 12/26/2025 10:00 AM EDT Office Visit [facility] Neurology - [address] [facility] [address] [place] [address] [place] [address] [place] [address] [address] [place] [address] documented as of this encounter Visit Diagnoses Not on filedocumented in this encounter Care Teams Corporate Events Director Relationship Specialty Start Date End Date Dilan, Ronaldo Yates MD [address] [place] [address] [place] [address] PCP - General General Internal Medicine 12/24/2210/19 Tanna Finch APRN [address] [place] [phone] PCP - General Nurse Practitioner 11/04/24 documented as of this encounter
--- OUTSIDE RECORDS SUMMARY | 2025-10-18 09:54 | XMS_ITS | Encounter Summary ---
Author Organization [employer] ([place], [place], [place], [place], [place]) Address [address] [place] [address] Care Team Providers Care Incident Manager Name Role Phone Ronaldo Kong MD Primary Care Provider [phone] Tanna Finch APRN Primary Care Provid er Encounter Details Date Type Department Care Team (Late st Contact Info) Description 05/18/2019 Transcribed Document [facility] [place] [facility] [place] [address] ProviderJorje MD [address] [place] [address] Social History Tobacco Use Types Packs/Day [...] you are awake and alert. ??? Take qgdi-qia-tdnwvns and prescription medicines only as told by [...] 07/26/2014 Document Revised: 03/09/2017 Document Reviewed: 01/24/2017 [employer] Interactive Patient Education ? 2019 [employer] Transradial Angiogram Transradial angiogram is an [...] including vitamins, herbs, eye drops, creams, and vime-aaw-zvxlylq medicines. ??? Any problems you or family [...] 06/29/2013 Document Revised: 06/07/2017 Document Reviewed: 09/08/2016 [employer] Interactive Patient Education ? 2019 [employer] Radial Site Care Refer to this [...] 11/07/2011 Document Revised: 03/12/2017 Document Reviewed: 04/23/2015 [employer] Interactive Patient Education ? 2019 [employer]. Electronically signed by Tanika Ruvalcaba Conversion Occupational Health And Safety Officer Cerner at 02/03/2023 4:59 PM CDT documented in this encounter Plan of Treatment Upcoming Encounters Date Type Department Care Team (Late st Contact Info) Description 11/01/2025 9:00 AM EST Office Visit [address] [address] 12/26/2025 10:00 AM EDT Office Visit [address] [address] Lino Solis MD [address] [place] [address] [address] [place] [address] documented as of this encounter Visit Diagnoses Not on filedocumented in this encounter Care Teams Incident Manager Relationship Specialty Start Date End Date Ronaldo Kong MD [address] [place] [address] [place]BETH MULLER [address] PCP - General General Internal Medicine 12/24/2210/19 Tanna Finch, OMAR [address] [place] [phone] PCP - General Nurse Practitioner 11/04/24 documented as of this encounter
--- OUTSIDE RECORDS SUMMARY | 2025-10-18 09:54 | XMS_ITS | Encounter Summary ---
Author Organization [employer] ([place], [place], [place], [place], [place]) Address [address] [place] [address] Care Team Providers Care Water Plant Operator Name Role Phone Ronaldo Kong MD Primary Care Provider [phone] Tanna Finch APRN Primary Care Provid er Encounter Details Date Type Department Care Team (Late st Contact Info) Description 06/08/2020 Transcribed Document [facility] [place] [facility] [place] [address] ProviderJorje MD [address] [place] [address] Social History Tobacco Use Types Packs/Day [...] Standing scale Routine Weight Entry Format : [place] Routine Weight, Pounds : 293 lb Routine Weight, Ounces : 6 oz Routine Weight Calculation : 133.35 kg Height Source : Stated Height Entry Format : [place] Height, Feet : 5 ft Height, Inches : 7 Inch Clinical Height : 170.18 cm Body Surface Area (BSA), Routine : 2.38 m2 Body Mass Index (BMI), Routine : 46.04 kg/m2 Mahsa Win Care Asst-Health Unit Coord - 06/08/2020 6:05 EDT Electronically signed by Jordon, [facility] Conversion Gluing Crew Leader Cerner at 02/03/2023 4:47 PM CDT documented in this encounter Plan of Treatment Upcoming Encounters Date Type Department Care Team (Late st Contact Info) Description 11/01/2025 9:00 AM EST Office Visit [facility] Neurology - [address] [facility] [address] [place] [address] 12/26/2025 10:00 AM EDT Office Visit [facility] [address] [place] [address] Lino Solis MD [facility] [address] [facility] [address] [place] [address] documented as of this encounter Visit Diagnoses Not on filedocumented in this encounter Care Teams Water Plant Operator Relationship Specialty Start Date End Date Dilan, Ronaldo Yates MD [address] [place] [address] PCP - General General Internal Medicine 12/24/2210/19 Tanna Finch APRN [address] [place] [phone] PCP - General Nurse Practitioner 11/04/24 documented as of this encounter
--- OUTSIDE RECORDS SUMMARY | 2025-10-18 09:54 | XMS_ITS | Encounter Summary ---
Author Organization [employer] ([place], [place], [place], [place], [place]) Address [address] [place] [address] Care Team Providers Care Stone Circular Sawyer Name Role Phone Ronaldo Kong MD Primary Care Provider [phone] Tanna Finch APRN Primary Care Provid er Encounter Details Date Type Department Care Team (Late st Contact Info) Description 06/06/2020 Transcribed Document [facility] [place] [facility] [place] [address] ProviderJorje MD [address] [place] [address] Social History Tobacco Use Types Packs/Day [...] Mary Rosario Emergency Contact #1 : Home [phone]:cell Emergency Contact #1 Relationship : Mother Emergency Contact #2 : None Emergency Contact #2 Phone Number : None Emergency Contact #2 Relationship : None Primary Language : Citizen Of [place] Communication Barrier : None Art Gallery Director Needed : No Emperatriz Bell RN-Resource - [...] Scale Risk Level : 25-45 Medium Risk Sasser Fall Interventions : Adequate lighting, Assistive devices [...] Source : Stated Height Entry Format : [place] Height, Feet : 5 ft(Converted to: 152 cm, 60 Inch) Height, Inches : 7 Inch(Converted to: 0 ft 7 Inch, 17.78 cm) Clinical Height : 170.18 cm Weight Source : Bed scale Weight Entry Format : [place]in Clinical Dosing Weight : 137.73 kg Weight, Pounds : 303 lb Body Surface Area (BSA) : 2.41 m2 Body Mass Index : 47.6 kg/m2 (>HHI) [place] Body Weight : 61 kg Emperatriz Bell RN-Resource - 06/06/2020 16:52 EDT Infectious Disease History Has the patient ever been tested for COVID-19? : Yes, Patient stated results Negative Where was the COVID-19 Testing completed? : [facility] Date of COVID-19 test known? : Yes [...] Emperatriz Bell RN-Resource - 06/06/2020 16:52 EDT [place] Suicide Severity Rating Scale (C-SSRS) CSSRS Past [...] 06/06/2020 16:52 EDT Electronically signed by Jordon [facility] Conversion Aeronautics Commission Director Cerner at 02/03/2023 4:45 PM CDT documented in this encounter Plan of Treatment Upcoming Encounters Date Type Department Care Team (Late st Contact Info) Description 11/01/2025 9:00 AM EST Office [facility] [address] [place] [address] 12/26/2025 10:00 AM EDT Office Visit [facility] - [address] [facility] [address] [place] [address] Lino Solis MD [address] [place] [address] [address] [place] [address] documented as of this encounter Visit Diagnoses Not on filedocumented in this encounter Care Teams Stone Circular Sawyer Relationship Specialty Start Date End Date Ronaldo Kong MD [address] [place] [address] PCP - General General Internal Medicine 12/24/2210/19 Tanna Finch APRN [address] [place] [phone] PCP - General Nurse Practitioner 11/04/24 documented as of this encounter
--- OUTSIDE RECORDS SUMMARY | 2025-10-18 09:54 | XMS_ITS | Encounter Summary ---
Author Organization [employer] ([place], [place], [place], [place], [place]) Address [address] [place] [address] Care Team Providers Care Private Tutors And Teachers Name Role Phone Ronaldo Kong MD Primary Care Provider [phone] Tanna Finch APRN Primary Care Provid er Encounter Details Date Type Department Care Team (Late st Contact Info) Description 06/08/2020 Transcribed Document [facility] [place] [address] [place] [address] ProviderJorje MD [address] [place] [address] Social History Tobacco Use Types Packs/Day [...] Alisson Kahn Rn - 06/08/2020 5:46 EDT Electronically signed by Jordon [facility] Conversion Reference Library Assistant Cerner at 02/03/2023 4:48 PM CDT documented in this encounter Plan of Treatment Upcoming Encounters Date Type Department Care Team (Late st Contact Info) Description 11/01/2025 9:00 AM EST Office [facility] [address] [facility] [address] [place] [address] 12/26/2025 10:00 AM EDT Office Visit [facility] [address] [place] [address] [address] [place] [address] Lino Solis MD [address] [place] [address] [address] [place] [address] documented as of this encounter Visit Diagnoses Not on filedocumented in this encounter Care Teams Private Tutors And Teachers Relationship Specialty Start Date End Date Ronaldo Kong MD [address] [place] [address] [place] [address] PCP - General General Internal Medicine 12/24/2210/19 Tanna Finch APRN [address] [place] [phone] PCP - General Nurse Practitioner 11/04/24 documented as of this encounter
--- OUTSIDE RECORDS SUMMARY | 2025-10-18 09:54 | XMS_ITS | Encounter Summary ---
Author Organization [employer] ([place], [place], [place], [place], [place]) Address [address] [place] [address] Care Team Providers Care Security Support Analyst Name Role Phone Tanna Finch BEHAVIOR SPECIALIST Primary Care Provid er Encounter Details Date [...] Date Joseph rded Speak language other than Algerian at home Not on file 11/06/2023 Want [...] on file documented as of this encounter Functional Status * Communicable Disease Screening Question Answer Date of Assessment Author Have you been in contact wit h someone who was sick? No / Unsure 08/21/2025 1:06 PM Candice Obrien Do you have any of the follo wing new or worsening symptoms? None of these 08/21/2025 1:06 PM OPTICAL SYSTEMS ENGINEER Eulalio Calloway documented as of this encounter Plan of Treatment Upcoming Encounters Date Type Department Care Team (Late st Contact Info) Description 11/01/2025 9:00 AM EST Office Visit [facility] [address] [facility] [address] [place] [address] 12/26/2025 10:00 AM EDT Office Visit [facility] - [address] [facility] [address] [place] [address] [place] [address] [place] [address] [address] [place] [address] documented as of this encounter Visit Diagnoses Not on filedocumented in this encounter Care Teams Security Support Analyst Relationship Specialty Start Date End Date Tanna Finch APRN [address] [place] [phone] PCP - General Nurse Practitioner 11/04/24 documented as of this encounter
--- OUTSIDE RECORDS SUMMARY | 2025-10-18 09:54 | XMS_ITS | Encounter Summary ---
Author Organization [employer] ([place], [place], [place], [place], [place]) Address [address] [place] [address] Care Team Providers Care Seasoning Mixer Name Role Phone Ronaldo Kong MD Primary Care Provider [phone] Tanna Finch APRN Primary Care Provid er Encounter Details Date Type Department Care Team (Late st Contact Info) Description 06/08/[address] [facility] [place] Medicine [address] [place] [address] ProviderJorje MD [address] [place] [address] Social History Tobacco Use Types Packs/Day [...] MILTON SIEGEL MD-CAR Discharge Information PCP: PRIMARY RECYCLING SORTER:Lele CONSULTS: Admitting Diagnoses: Diastolic CHF decompensation Discharge [...] as expected. Education and Follow-up Counseled: patient. documented in this encounter Plan of Treatment Upcoming Encounters Date Type Department Care Team (Late st Contact Info) Description 11/01/2025 9:00 AM EST Office Visit [facility] Neurology [facility] [address] [facility] [address] [place] [address] 12/26/2025 10:00 AM EDT Office Visit [facility] 10[address] [facility] [address] [place] [address] Lino Solis MD [address] [place] [address] [address] [place] [address] documented as of this encounter Visit Diagnoses Not on filedocumented in this encounter Care Teams Seasoning Mixer Relationship Specialty Start Date End Date Ronaldo Kong MD [address] [place] [address] [place] [address] PCP - General General Internal Medicine 12/24/2210/19 Tanna Finch APRN [address] [place] [phone] PCP - General Nurse Practitioner 11/04/24 documented as of this encounter
--- OUTSIDE RECORDS SUMMARY | 2025-10-18 09:54 | XMS_ITS | Encounter Summary ---
Author Organization [employer] ([place], [place], [place], [place], [place]) Address [address] [place] [address] Care Team Providers Care Take Up Operator Name Role Phone Ronaldo Kong MD Primary Care Provider [phone] Tanna Finch APRN Primary Care Provid er Encounter Details Date Type Department Care Team (Late st Contact Info) Description 06/04/2020 Transcribed Document [facility] [place] [address] [place] [address] Provider, MD Jorje [address] [place] [id number] Social History Tobacco Use Types Packs/Day Years [...] report an increase in daytime sleepiness. Her [place] has increased from her last visit. It [...] 100%, blood pressure 120/80, heart rate 99. [place] 11/24. GENERAL: This is a pleasant female, [...] with Cardiology regarding her increase in edema. /[id number] Anh Dunlap APRN HH/AQ / HH / MODL /[id number] CC: Ronaldo Kong MD Electronically signed by Jordon, [facility] Conversion Auditor Medical Claims Cerner at 02/03/2023 4:44 PM CDT documented in this encounter Plan of Treatment Upcoming Encounters Date Type Department Care Team (Late st Contact Info) Description 11/01/2025 9:00 AM EST Office Visit [address] [address] 12/26/2025 10:00 AM EDT Office Visit [address] [address] Lino Solis MD [address] [place] [address] documented as of this encounter Visit Diagnoses Not on filedocumented in this encounter Care Teams Take Up Operator Relationship Specialty Start Date End Date Ronaldo Kong MD [address] [place] [address] [place] [address] PCP - General General Internal Medicine 12/24/2210/19 Tanna Finch, OMAR [address] [place] [phone] PCP - General Nurse Practitioner 11/04/24 documented as of this encounter
--- OUTSIDE RECORDS SUMMARY | 2025-10-18 09:54 | XMS_ITS | Encounter Summary ---
Author Organization [employer] ([place], [place], [place], [place], [place]) Address [address] [place] [address] Care Team Providers Care Flow Machine Operator Name Role Phone Ronaldo Kong MD Primary Care Provider [phone] Tanna Finch APRN Primary Care Provid er Encounter Details Date Type Department Care Team (Late st Contact Info) Description 05/18/2019 Transcribed Document [facility] Cardiology [address] [place], [place] [phone] [place] [address] [place] [address] [address] [place] [address] Social History Tobacco Use Types Packs/Day Years [...] None Author: GURU GARCIA MD-CAR Basic Information Nail Expert: Jennie Royal Chief Complaint chest pain, dyspnea on exertion History of Present Illness 48 year old female with history of DMII, ongoing tobacco abuse, seizures, migraines, morbid obesity, fibromyalgia, chronic hip/back pain, anxiety/depression and borderline personality disorder. She was seen by Dr Royal for evaluation of nonexertional chest pain. The pain occurred while she was sitting in religion. The pain is described as a pressure that was localized in the left side of her chest and radiated down the left arm. She became diaphoretic and short of breath. The pain lasted around 15 minutes before slowly dissipating. She was taken to the [facility] ER where she was ruled out for an [place] and discharged home to follow with cardiology. 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 Raynaud's disease (113573884): Resolved. 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 Family History: Entire family history is [...] of motion, Normal strength. Integumentary: Warm, Dry, [place]. Neurologic: Alert, Oriented. Psychiatric: Cooperative. Review / Management No qualifying data available Cardiac Markers (Current Encounter/Past 24 Hours) No Cardiac Marker Results Found (Past 24 Hours) Blood Gases (Current Encounter/Past 24 Hours) No Blood Gas Results Found (Past 24 Hours) Radiology Results (Last 48 hours) [id number] -- 05/16/2019 08:43 US Carotid Duplex BILAT [...] Plan IMPRESSION: * Abnormal Lexiscan MPI at [facility] Low risk but fixed inferior defect with [...] Description 11/01/2025 9:00 AM EST Office Visit [facility] Neu[facility] - [facility] [address] [address] 12/26/2025 10:00 AM EDT Office Visit [facility] Neurology - [address] [facility] [address] [place] [address] Lino Solis MD [address] [facility] [address] [place] [address] documented as of this encounter Visit Diagnoses Not on filedocumented in this encounter Care Teams Flow Machine Operator Relationship Specialty Start Date End Date Ronaldo Kong MD [address] [place] [address] [place] [address] PCP - General General Internal Medicine 12/24/2210/19 Tanna Finch, OMAR [address] [place] [phone] PCP - General Nurse Practitioner 11/04/24 documented as of this encounter
--- OUTSIDE RECORDS SUMMARY | 2025-10-18 09:55 | XMS_ITS | Encounter Summary ---
Author Organization [facility] Address [address] [place] [address] Care Team Providers Care Ton Container Filler Name Role Phone System, Provider Not In Primary Care Provider Un available Encounter Details Date Type Department Care Team (Late st Contact Info) Description 09/06/2025 Telephone [facility] [place]ARDIOLOGY [address] [place] [address] Daphney Hall MD [address] [place] [address] Social History Tobacco Use Types Packs/Day [...] or training? Not on file Preferred Language Andorran 03/03/2024 PHQ-2 Answer Date Recorded Retired PHQ-9: [...] Where should we fax the clearance to? [phone] Any new symptoms since last OV? No [...] RegSched Rep - 09/06/2025 3:44 PM EST [facility] IS REQUESTING CARDIAC CLEARANCE [...] [facility] [place] [address] Daphney Hall MD [address] [place] [address] 11/13/2025 11:00 AM EST Clinical Support No Requirements [facility] [place] [address] 12/20/2025 1:30 PM EST Office Visit [facility] [place] [address] Daphney Hall MD [address] [place] [address] 12/20/2025 1:30 PM EST Clinical Support No Requirements [facility] [address] [place] [address] documented as of this encounter Visit Diagnoses Not on filedocumented in this encounter Additional Health Concerns Assessment Noted Time PHQ-2 Depression Total Score: 3 07/18/20 24 11:28 AM EDT documented as of this encounter Care Teams Ton Container Filler Relationship Specialty Start Date End Date System, [place] [address] PCP - General 02/14/25 documented as of this encounter
--- OUTSIDE RECORDS SUMMARY | 2025-10-18 09:55 | XMS_ITS | Encounter Summary ---
Author Organization [employer] ([place], [place], [place], [place], [place]) Address [address] [place] [address] Care Team Providers Care Medical Appliance Maker Name Role Phone Ronaldo Kong MD Primary Care Provider [phone] Tanna Finch APRN Primary Care Provid er Encounter Details Date Type Department Care Team (Late st Contact Info) Description 06/07/2020 Transcribed Document [facility] [place] [address] [place] [address] ProviderJorje MD [address] [place] [address] Social History Tobacco Use Types Packs/Day [...] Description 11/01/2025 9:00 AM EST Office Visit [facility] Neurology - [address] [place] [address] 12/26/2025 10:00 AM EDT Office Visit [facility] [address] [facility] [address] [place] [address] [place] [address] [place] [address] [address] [place], [place] [phone] documented as of this encounter Visit Diagnoses Not on filedocumented in this encounter Care Teams Medical Appliance Maker Relationship Specialty Start Date End Date Ronaldo Kong MD [address] [place] [address] [place] [address] PCP - General General Internal Medicine 12/24/2210/19 Tanna Finch APRN [address] [place] [phone] PCP - General Nurse Practitioner 11/04/24 documented as of this encounter
--- OUTSIDE RECORDS SUMMARY | 2025-10-18 09:55 | XMS_ITS | Encounter Summary ---
Author Organization [employer] ([place], [place], [place], [place], [place]) Address [address] [place] [address] Care Team Providers Care Coin Machine Service Repairer Name Role Phone Ronlado Kong MD Primary Care Provider [phone] Tanna Finch APRN Primary Care Provid er Encounter Details Date Type Department Care Team (Late st Contact Info) Description 06/07/2020 Transcribed Document [facility] [place] [address] [place] [address] ProviderJorje MD [address] [place] [address] Social History Tobacco Use Types Packs/Day [...] Jorje ProviderMD - 06/07/2020 2:00 AM CDT Pulper Tender Details Entered On: 06/07/2020 5:54 EDT Performed [...] EST Office Visit [facility] [address] [facility] [address] [place] [address] 12/26/2025 10:00 AM EDT Office Visit [facility] [facility] [address] [place] [address] Lino Solis MD [address] [place] [address] [address] [place] [address] documented as of this encounter Visit Diagnoses Not on filedocumented in this encounter Care Teams Coin Machine Service Repairer Relationship Specialty Start Date End Date Ronaldo Kong MD [address] [place] [address] PCP - General General Internal Medicine 12/24/2210/19 Tanna Finch APRN [address] [place] [phone] PCP - General Nurse Practitioner 11/04/24 documented as of this encounter
--- OUTSIDE RECORDS SUMMARY | 2025-10-18 09:55 | XMS_ITS | Encounter Summary ---
Author Organization [employer] ([place], [place], [place], [place], [place]) Address [address] [place] [address] Care Team Providers Care Client Technologies Analyst Name Role Phone Ronaldo Kong MD Primary Care Provider [phone] Tanna Finch APRN Primary Care Provid er Encounter Details Date Type Department Care Team (Late st Contact Info) Description 06/07/2020 Transcribed Document [facility] [place] [address] ProviderJorje MD [address] [place] [address] Social History Tobacco Use Types Packs/Day [...] On: 06/07/2020 14:25 EDT by Zayra Simons, Real Estate Transaction Coordinator-Snowmobile Mechanic Initial Assessment I Previously Documented Living Environment : No qualifying data available. Living Situation : Home Patient Lives With : Alone Is the Patient a Caregiver at Home? : No Emergency Contact #1 : Mary Rosario Emergency Contact #1 : Home [phone]:cell Emergency Contact #1 Relationship : Mother Emergency [...] Patient : Discharge transportation Zayra Simons Social Worker-Emmanuel - 06/07/2020 14:25 EDT Narrative Note Narrative Note : 06/07 Low RRS. Met with pt at the bedside. Pt reports she resides alone at [address] [place] [address]. Pt reports she is independent with ADLs at baseline. Pt reports she is current with outpatient PT at [facility]. Pt reports she plans to return [place] and [place] Continue to follow... Zayra Simons Social Worker-Snowmobile Mechanic - 06/07/2020 14:25 EDT documented in this encounter Plan of Treatment Upcoming Encounters Date Type Department Care Team (Late st Contact Info) Description 11/01/2025 9:00 AM EST Office Visit [facility] Neurology [facility] [address] [address] 12/26/2025 10:00 AM EDT Office Visit [facility] Neurology - [address] [place] [address] Lino Solis MD 1021 [facility] [address] [place] [address] documented as of this encounter Visit Diagnoses Not on filedocumented in this encounter Care Teams Client Technologies Analyst Relationship Specialty Start Date End Date Ronaldo Kong MD [address] [place] [address] PCP - General General Internal Medicine 12/24/2210/19 Tanna Finch APRN [address] [place] [phone] PCP - General Nurse Practitioner 11/04/24 documented as of this encounter
--- OUTSIDE RECORDS SUMMARY | 2025-10-18 09:55 | XMS_ITS | Encounter Summary ---
Author Organization [employer] ([place], [place], [place], [place], [place]) Address [address] [place] [address] Care Team Providers Care Handmade Tile Artist Name Role Phone Ronaldo Kong MD Primary Care Provider [phone] Tanna Finch APRN Primary Care Provid er Encounter Details Date Type Department Care Team (Late st Contact Info) Description 06/07/2020 Transcribed Document [facility] [place] [address] [place] [address] ProviderJorje MD [address] [place] [address] Social History Tobacco Use Types Packs/Day [...] MADELINE BUCHANAN, PT - 06/08/2020 11:14 EDT Imaging Analyst Goals Other PT LTG Grid Goal #1 Goal #2 Other : Patient will be Supervision/Independent with all transfers to return to [facility]. Patient will ambulate 300' without AD Supervision [...] EST Office Visit [facility] Neurology [address] [place] [address] 12/26/2025 10:00 AM EDT Office Visit [address] [place] [address] Lino Solis MD [address] [place] [address] [address] [place] [address] documented as of this encounter Visit Diagnoses Not on filedocumented in this encounter Care Teams Handmade Tile Artist Relationship Specialty Start Date End Date Ronaldo Kong MD [address] [place] [address] PCP - General General Internal Medicine 12/24/2210/19 Tanna Finch APRN [address] [place] [phone] PCP - General Nurse Practitioner 11/04/24 documented as of this encounter
--- OUTSIDE RECORDS SUMMARY | 2025-10-18 09:55 | XMS_ITS | Encounter Summary ---
Author Organization [employer] ([place], [place], [place], [place], [place]) Address [address] [place] [address] Care Team Providers Care Catechist Name Role Phone Ronaldo Kong MD Primary Care Provider [phone] Tanna Finch APRN Primary Care Provid er Encounter Details Date Type Department Care Team (Late st Contact Info) Description 06/07/2020 Transcribed Document [facility] [place] the [facility] [place] [address] ProviderJorje MD [address] [place] [address] Social History Tobacco Use Types Packs/Day [...] 1970 Associated Diagnoses: None Author: MILTON SIEGEL MD-[facility] Daily Progress Note Chief [...] Problem list: Medical Anxiety / SNOMED CT 31188354 / Confirmed Arthritis / SNOMED CT 9624639 / Confirmed Asthma / SNOMED CT 443135682 / Confirmed Borderline personality disorder / SNOMED CT 34543848 / Confirmed Cornea scar / SNOMED CT 219214041 / Confirmed Depression / SNOMED CT 849872048 / Confirmed Diverticulitis / SNOMED CT 236179555 / Confirmed DJD (degenerative joint disease) / SNOMED CT [id number] / Confirmed DM - Diabetes mellitus / SNOMED CT 140572554 / Confirmed Fibromyalgia / SNOMED CT 678625304 / Confirmed Folic acid deficiency / SNOMED CT 294623711 / Confirmed Glaucoma / SNOMED CT 99729959 / Confirmed History of obstructive sleep apnea / IMO 10594621 / Confirmed HTN - Hypertension / SNOMED CT 3253294251 / Confirmed Hypothyroid / SNOMED CT 104150539 / Confirmed Migraines / SNOMED CT 51648446 / Confirmed PTSD (post-traumatic stress disorder) / SNOMED CT [id number] / Confirmed Sleep apnea / SNOMED CT 274755144 / Confirmed Tobacco abuse / SNOMED CT 275828404 / Confirmed Tremors of nervous system / SNOMED CT 29309495 / Confirmed Vitamin D deficiency / SNOMED CT 13722884 / Confirmed Resolved: Endometriosis / SNOMED CT 9052026203 Resolved: Raynaud's disease / SNOMED CT 570223582 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, Active Problems (22) Anxiety Arthritis Asthma Borderline [...] EDT Height Source Stated Height Entry Format [place] Height/Length, MAURITIAN (ft) 5 ft Height/Length MAURITIAN 7 Inch CLINICALHEIGHT 170.18 cm Routine Weight Source Standing scale Routine Weight Entry Format [place] Routine Weight, Pounds 296 lb Routine Weight, Ounces 9 oz Routine Weight Calculation 134.8 kg Body Mass Index (BMI), Routine 46.54 kg/m2 Body Surface Area (BSA), Routine 2.39 m2 06/06/2020 16:23 EDT Height Source Stated Height Entry Format [place] Height/Length, MAURITIAN (ft) 5 ft Height/Length MAURITIAN 7 Inch CLINICALHEIGHT 170.18 cm [place] Body Weight 61 kg Weight Source Bed scale Weight Entry Format [place] Weight [place] lb 303 lb CLINICALWEIGHT 137.73 kg Body [...] extremity. Gastrointestinal: Soft, Non-tender. Integumentary: Warm, Dry, Portal. Neurologic: Alert, Oriented. Psychiatric: Cooperative, Appropriate mood [...] (JUN 06) ALB 3.6 (JUN 06) . Sap Ppm Consultant Condition Impression and Plan IMPRESSION/PLAN 1. Decompensated [...] Description 11/01/2025 9:00 AM EST Office Visit [facility] Neurology - [address] [facility] [address] [place] [address] 12/26/2025 10:00 AM EDT Office Visit [facility] [address] [facility] [address] [place] [address] Lino Solis MD [address] [place] [address] [address] [place] [address] documented as of this encounter Visit Diagnoses Not on filedocumented in this encounter Care Teams Catechist Relationship Specialty Start Date End Date Ronaldo Kong MD [address] [place] [address] [place] [address] PCP - General General Internal Medicine 12/24/2210/19 Tanna Finch APRN [address] [place] [address] PCP - General Nurse Practitioner 11/04/24 documented as of this encounter
--- OUTSIDE RECORDS SUMMARY | 2025-10-18 09:55 | XMS_ITS | Encounter Summary ---
Author Organization [employer] ([place], [place], [place], [place], [place]) Address [address] [place] [address] Care Team Providers Care Inspector Golf Ball Name Role Phone Ronaldo Kong MD Primary Care Provider [phone] Tanna Finch APRN Primary Care Provid er Encounter Details Date Type Department Care Team (Late st Contact Info) Description 06/07/2020 Transcribed Document [facility] [place] [address] [place] [address] ProviderJorje MD [address] [place] [address] Social History Tobacco Use Types Packs/Day [...] Jorje ProviderMD - 06/07/2020 11:54 AM CDT job placement counselor Form Entered On: 06/07/2020 11:54 EDT Performed On: 06/07/2020 11:54 EDT by AGUILAR KERR RN-Utilization Review UM Additional Information UM Additional Comment : Request for inpt stay. Clinicals to follow. ICD 10: I50.9 AGUILAR KERR RN-Utilization Review - 06/07/2020 11:54 EDT Electronically signed by Tanika Ruvalcaba Conversion Civil Laboratory Technician Cerner at 02/03/2023 4:41 PM CDT documented in this encounter Plan of Treatment Upcoming Encounters Date Type Department Care Team (Late st Contact Info) Description 11/01/2025 9:00 AM EST [facility] [address] [place] [address] 12/26/2025 10:00 AM EDT Office Visit [facility] [address] [facility] [address] [place] [address] Lino Solis MD [address] [place] [address] [address] [place] [address] documented as of this encounter Visit Diagnoses Not on filedocumented in this encounter Care Teams Inspector Golf Ball Relationship Specialty Start Date End Date Ronaldo Kong MD [address] [place] [address] [place] [address] PCP - General General Internal Medicine 12/24/2210/19 Tanna Finch APRN [address] [place] [phone] PCP - General Nurse Practitioner 11/04/24 documented as of this encounter
--- OUTSIDE RECORDS SUMMARY | 2025-10-18 09:55 | XMS_ITS | Patient Health Record ---
Author Organization [facility] Address [address] [facility] [address] [place] [address] Phone [phone] Care Team Providers Care Dry House Operator Name Role Phone Harpreet Castaneda M.D. Allergies Allergen (clinical drug ingredient) Drug/Non Drug Allergy documented on EMR Reaction Allergy Type Onset Date Status diphenhydramine Benadryl Unknown Drug Allergy A ctive Tetanus Immune Globulin Unknown Drug Allergy Active meclizine Meclizine anxiety/ nerve pain Drug Allergy Active Reason For Referral No Information Medications Medication SIG (Take, Route, Frequency, Duration) Notes Start Date End Date Diagnosis (ICD Code) Status lamoTRIgine 200 MG Tablet 1 tablet Orally Once a day 06/13/2025 Active QUEtiapine Fumarate 50 MG Tablet 1 tablet at bedtime Orally Once a day 06/13/2025 Active Nurtec 75 MG Tablet Disintegrating 1 tablet on the tongue and allow to dissolve Orally; Duration: 30 days As needed Active Aspirin 81 81 MG Tablet Delayed Release 1 tablet Orally Once a day 06/13/2025 Active Emgality 120 MG/ML Solution Prefilled Syringe 1 ml Subcutaneous; Duration: 30 day(s) Active Methocarbamol 500 MG Tablet 1 tablets Orally every 6 hrs As needed 06/13/2025 Active ZyrTEC Allergy 10 MG Tablet 1 tablet Orally Once a day; Duration: 30 day(s) Active Desvenlafaxine ER 50 MG Tablet Extended Release 24 Hour 1 tablet Orally Once a day 06/13/2025 Active Furosemide 20 MG Tablet 1 tablet Orally Once a day 06/13/2025 Active Carvedilol 12.5 MG Tablet 1 tablet with food Orally Twice a day Active Dexlansoprazole 60 MG Capsule Delayed Release 1 capsule 1/2 to 1 hour before morning meal Orally Once a day 06/13/2025 Active Baclofen 10 MG Tablet 1 tablet Orally four times a day Active Cholecalciferol 1.25 MG (14262 UT) Capsule 1 capsule Orally 06/13/2025 Active Albuterol Sulfate HFA 108 (90 Base) MCG/ACT Aerosol Solution 1 puff as needed Inhalation every 4 hrs Not-Taking Ozempic (2 MG/DOSE) 8 MG/3ML Solution Pen-injector as directed Subcutaneous 06/13/2025 Active Spironolactone 50 MG Tablet 1 tablet Orally Once a day Active Trelegy Ellipta 100-62.5-25 MCG/ACT Aerosol Powder Breath Activated 1 puff Inhalation Once a day 06/13/2025 Active Atorvastatin Calcium 80 MG Tablet 1 tablet Orally Once a day 06/13/2025 Active rOPINIRole HCl 2 MG Tablet 2 tablet 1 to 3 hours before bedtime Orally Once a day Active Nystatin - Powder as directed 06/13/2025 Active Linzess 72 MCG Capsule 1 capsule at least 30 minutes before the first meal of the day on an empty stomach Orally Once a day 06/13/2025 Active Zonisamide 100 MG Capsule 1 capsule Orally Three times daily Active Social History Sex Observation Social History Observation Description Sex Observation Female Social History Additional Details Category Social Info Options Details Migrated Social History Drugs/Alcohol: (Alcohol Screen (Audit-C)): Did you have a drink containing alcohol in the past year?: No, Points: 0, Interpretation: Negative (Alcohol use): Do you now or have you ever drank alcoholic beverages Yes, What kind liquor, How often rarely, How many years 10 (Caffeine): Intake: 2-3 cups per day (Do you drink alcohol?): No (Do you smoke marijuana?): Denies (Drugs): Have you used drugs other than those for medical reasons in the past 12 months? 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) Added On:2020 Active confirmed Problem Morbid obesity (558909084) Morbid obesity (E66.01) Added On:2020 Active confirmed Problem Type 2 diabetes mellitus (88399293) Type 2 diabetes mellitus (E11.9) Added On:2022 Active confirmed Problem Hypertension (37737634) HTN (hypertension) (I10) Added On:2020 Active confirmed Problem Brain tumor (383947116) Brain tumor (D49.6) Added On:2021 Active confirmed Problem Obstructive sleep apnea syndrome (00501485) BRENDA (obstructive sleep apnea) (G47.33) Added On:2020 Active confirmed Problem Obese (417981303) Obese (E66.9) Added On:2021 Active confirmed Problem Chronic kidney disease stage 2 (008007593) Chronic kidney disease stage 2 (N18.2) Added On:2024 Active confirmed Problem Obstructive sleep apnea syndrome (40174909) BRENDA (obstructive sleep apnea) (G47.33) Added On:2022 Active confirmed Problem Atonic bladder (261830132) Atonic bladder (N31.2) Added On:2024 Active confirmed Vital Signs Vital Sign Value Notes Appt Date Heart Rate 81 /min 06/13/2025 Temperature 97.2 degrees Fahrenheit 05/20 Respiratory Rate 20 /min 06/13/2025 Oximetry 97 % 06/13/2025 Blood pressure diastolic 82 mm Hg Weight-kg 127.69 kg 06/13/2025 Height 67 in 06/13/2025 Blood pressure systolic 134 mm Hg 05/20 Weight 281.5 lbs 06/13/2025 BMI 44.08 kg/m2 06/13/2025 Encounters Date Time Type Facility Location Provider Diagnosis 10:40 AM Office Visit, Est Pt., Level 3 ([address]) [facility] [address] [place] [address] Harpreet Castaneda Chronic kidney disease stage 2 N18.2 ; Analgesic nephropathy N14.0 ; HTN (hypertension) I10 ; Obese E66.9 ; Type 2 diabetes mellitus E11.9 and BRENDA (obstructive sleep apnea) G47.33 03:00 PM Office Visit, Est Pt., Level 3 ([address]) [facility] [address] [place] [address] Harpreet Castaneda Chronic kidney disease stage 2 N18.2 ; Analgesic nephropathy N14.0 ; Morbid obesity E66.01 ; BRENDA (obstructive sleep apnea) G47.33 ; HTN (hypertension) I10 and Atonic bladder N31.2 Assessments Encounter Date Diagnosis (ICD Code) Assessment Notes Treatment Notes Section Notes 11/22/2024 Chronic kidney disease [...] Castaneda, 12/14/2025 11:20:00 AM, [address], [facility] [address], [place], [address], Insurance Providers Payer Name Payer Address Payer Phone Subscriber Number Group Number Insured Name Patient Relationship to Insured Coverage Start Date Coverage End Date [employer] [facility] [address] [place] [address] [id number] Frannie Ramsey Self - patient is the insured Medical (General) History Medical History History ICD Code Anemia Avitaminosis B 12 deficiency Carotid artery stenosis CHF 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
--- OUTSIDE RECORDS SUMMARY | 2025-10-18 09:55 | XMS_ITS | Referral Summary ---
Author Organization [employer] ([place], [place], [place], [place], [place]) Address [address] [place] [address] Care Team Providers Care Dental Technician Metal Name Role Phone Tanna Finch APRN Primary Care Provid er Encounters * This document contains information received from the source organization and may not represent a complete record from that organization. Date Type Department Care Team Description 08/28/2025 2:00 PM EST Office Visit [facility] Orthopedics - [address] [place] [address] Kaushik London PA-C Bilateral carpal tunnel syndrome (Primary Dx); Cubital tunnel syndrome, bilateral 08/21/2025 Travel 08/21/2025 1:30 PM EST Office Visit [facility] Neurology - [address] [place] [address] Lino Solis MD Fibromyalgia (Primary [...] mouth every 6 (six) hours if needed. 1 Active albuterol HFA (VENTOLIN HFA) 90 mcg/actuation inhaler Inhale by mouth via inhaler. Active cetirizine (ZyrTEC) 10 MG tablet Take 1 tablet (10 mg total) by mouth daily. 2 Active ondansetron (ZOFRAN-ODT) 4 MG disintegrating tablet Take 1 tablet (4 mg total) by mouth every 6 (six) hours if needed. 2 Active spironolactone (ALDACTONE) 50 MG tablet Take 1 tablet (50 mg total) by mouth daily. 3 Active aspirin 81 MG EC tablet Take 1 tablet (81 mg total) by mouth daily. 4 Active desvenlafaxine (PRISTIQ) 100 MG 24 hr tablet Take 1 tablet (100 mg total) by mouth daily. 5 Active Trelegy Ellipta 100-62.5-25 mcg dsdv 1 puff daily. 5 Active carvediloL (COREG) 12.5 MG tablet Take 1 tablet (12.5 mg total) by mouth 2 (two) times daily. Active furosemide (LASIX) 20 MG tablet TAKE ONE TABLET BY MOUTH 2 TIMES A DAY. TAKE ONE TABLET NEEDED FOR AGRESSIVE EDEMA OR WEIGHT GAIN GREATER THAN 2 POUNDS OVER 24 HOURS 5 Active linaCLOtide (LINZESS) 290 mcg cap Take 145 mcg by mouth every morning before breakfast. Active Ozempic 1 mg/dose (4 mg/3 mL) pnij Inject 1 mg under the skin once a week. 5 Active QUEtiapine (SEROquel) 50 MG tablet Take 1-2 tablets (50-100 mg total) by mouth nightly. 5 Active methocarbamoL (ROBAXIN) 500 MG tablet Take 2 tablets (1,000 mg total) by mouth every 6 (six) hours as needed. 5 Active dexlansoprazole 60 mg capsule Take 1 capsule (60 mg total) by mouth daily. 5 Active atorvastatin (LIPITOR) 80 MG tablet Take [...] times daily as needed. 360 tablet 1 5 Active galcanezumab-gnlm (Emgality Pen) 120 mg/mL penIndications:Harjit rambo without aura and without status migrainosus, not intractable Inject 1 mL (120 mg total) under the skin every 30 (thirty) days. 1 mL 6 5 Active rimegepant (Nurtec ODT) 75 mg TbDLIndications:Pa rtial seizure disorder (HCC) Take 75 mg by mouth as directed Take Nurtec ODT 75 mg as needed for migraine once in 24 hours.. 16 tablet 5 5 Active rOPINIRole (REQUIP) 2 MG tabletIndications: RLS (restless legs syndrome) Take 2 tablets (4 mg total) by mouth nightly MOUTH EVERY. 60 tablet 5 5 Active zonisamide (ZONEGRAN) 100 MG capsuleIndications :Partial seizure disorder (HCC) Take 100 mg every morning and 200 mg every evening. 270 capsule 3 5 Active desvenlafaxine 50 mg Tb24 1 tablet Orally Once a day 5 Active nystatin, bulk, 10 billion unit powd as directed. 5 Active Active Problems Problem Noted Date Diagnosed [...] Date Joseph rded Speak language other than Gambian at home Not on file 11/06/2023 Want [...] Description 11/01/2025 9:00 AM EST Office Visit [facility] Neurology - [address] [place] [address] 12/26/2025 10:00 AM EDT Office Visit [facility]rology - [address] [facility] [address] [place] [address] [place] [address] [place] [address] [address] [place] [address] Medical Devices Implanted Type Area Investigation Division Lieutenant Device Identifier Shelf Expiration Date Model / Serial / Lot Assurity Pacemaker-07/20 Implanted:07/20 (Quantity not on file) Pacemakers Chest CARLTON VASCULAR DEVICE CARLTON ASSURITY PACEMAKER [id number] / [id number] / Description:CARLTON ASSURITY PACEMAKER GENERATOR-[id number] RV LEAD SERIAL# [id number] MODEL 2087TC/58 RA LEAD SERIAL# [id number] MODEL 2087TC/52 1.5T AND NORMAL OPERATING MODE [...] r MEDTRONIC MEDTRONIC SYNCHROMED ll 8637-20 / [id number] / Description:1.5T AND 3T RF COIL-ANY TYPE MAX SPATIAL FIELD GRADIENT OF 19T/m (1900 GAUSS/CM MAX GRADIENT SLEW RATE-200T/M/S OR LESS MAX RF FIELD INTENSITY-FIRST LEVEL CONTROL ACTIVE SCAN TIME-THE RISK OF HEATING INCREASES FOR ACTIVE TORSO SCANNING DURATIONS OVER 30 MIN. Pain Mgmt/Stimulato r-08/13/2023 Implanted:07/20 (Quantity not on file) Pain Mgmt/Stimulato r Hip BMdr NEUROSTIMULAT OR-F15 MODEL 4101 4105 / [id number] / Description:1.5T AND 3T MUST PACE [...] 5:23 AM EDT 06/07/2020 9:51 AM EDT us Sleh Historical Provider PATHOLOGY/CYTOLOGY ORDE SHARON Final Result [facility] [address] [place] [address], [facility] [phone] * CT chest for pulmonary embolus (05/06/2019 [...] by Dr. Dee Jones. Transcribed by Goran Mckeno PA-C I have personally viewed, interpreted and [...] above final transcribed report. Dee Jones MD [facility] CT ORDERABLES Final Result from Last 3 Months or Most Recently Relevant to Health Maintenance [place] [address] [place] [address] Care Teams Dental Technician Metal Relationship Specialty Start Date End Date Tanna Finch APRN [address] [place] [phone] PCP - General Nurse Practitioner 11/04/24
--- OUTSIDE RECORDS SUMMARY | 2025-10-18 09:55 | XMS_ITS | Encounter Summary ---
Author Organization [employer] ([place], [place], [place], [place], [place]) Address [address] [place] [address] Care Team Providers Care Fitting Room Associate Name Role Phone Ronaldo Kong MD Primary Care Provider [phone] Tanna Finch APRN Primary Care Provid er Encounter Details Date Type Department Care Team (Late st Contact Info) Description 06/07/2020 Transcribed Document [facility] [place] [address] [place] [address] ProviderJorje MD [address] [place] [address] Social History Tobacco Use Types Packs/Day [...] Standing scale Routine Weight Entry Format : [place] Routine Weight, Pounds : 296 lb Routine Weight, Ounces : 9 oz Routine Weight Calculation : 134.8 kg Height Source : Stated Height Entry Format : [place] Height, Feet : 5 ft Height, Inches : 7 Inch Clinical Height : 170.18 cm Body Surface Area (BSA), Routine : 2.39 m2 Body Mass Index (BMI), Routine : 46.54 kg/m2 Alisson Kahn, Rn - 06/07/2020 6:30 EDT Electronically signed by Jordon, [facility] Conversion Golf Teacher Cerner at 02/03/2023 4:44 PM CDT documented in this encounter Plan of Treatment Upcoming Encounters Date Type Department Care Team (Late st Contact Info) Description 11/01/2025 9:00 AM EST [facility] [address] [place] [address] 12/26/2025 10:00 AM EDT Office [facility] [address] [place] [address] Lino Solis MD [address] [facility] [address] [place] [address] documented as of this encounter Visit Diagnoses Not on filedocumented in this encounter Care Teams Fitting Room Associate Relationship Specialty Start Date End Date Ronaldo Kong MD [address] [place] [address] PCP - General General Internal Medicine 12/24/2210/19 Tanna Finch APRN [address] [place] [phone] PCP - General Nurse Practitioner 11/04/24 documented as of this encounter
--- OUTSIDE RECORDS SUMMARY | 2025-10-18 09:55 | XMS_ITS | Encounter Summary ---
Author Organization [employer] ([place], [place], [place], [place], [place]) Address [address] [place] [address] Care Team Providers Care Metal Cut Off Saw Tender Name Role Phone Ronaldo Kong MD Primary Care Provider [phone] Tanna Finch APRN Primary Care Provid er Encounter Details Date Type Department Care Team (Late st Contact Info) Description 06/07/2020 Transcribed Document [facility] [place] [address] [place] [address] ProviderJorje MD [address] [place] [address] Social History Tobacco Use Types Packs/Day [...] 06/07/2020 5:54 EDT Electronically signed by Jordon [facility] Conversion Promotions Executive Producer Cerner at 02/03/2023 4:43 PM CDT documented in this encounter Plan of Treatment Upcoming Encounters Date Type Department Care Team (Late st Contact Info) Description 11/01/2025 9:00 AM EST Office Visit [facility] [address] [facility] [address] [place] [address] 12/26/2025 10:00 AM EDT Office Visit [facility] [address] [place] [address] [address] [place] [address] Lino Solis MD [address] [place] [address] [address] [place] [address] documented as of this encounter Visit Diagnoses Not on filedocumented in this encounter Care Teams Metal Cut Off Saw Tender Relationship Specialty Start Date End Date Ronaldo Kong MD [address] [place] [address] [place] [address] PCP - General General Internal Medicine 12/24/2210/19 Tanna Finch APRN [address] [place] [phone] PCP - General Nurse Practitioner 11/04/24 documented as of this encounter
--- OUTSIDE RECORDS SUMMARY | 2025-10-18 09:55 | XMS_ITS | Encounter Summary ---
Author Organization [employer] ([place], [place], [place], [place], [place]) Address [address] [place] [address] Care Team Providers Care Metal Painter Name Role Phone Ronaldo Kong MD Primary Care Provider [phone] Tanna Finch APRN Primary Care Provid er Encounter Details Date Type Department Care Team (Late st Contact Info) Description 06/07/2020 Transcribed Document [facility] [place] [address] [place] [address] ProviderJorje MD [address] [place] [address] Social History Tobacco Use Types Packs/Day [...] EDT Electronically signed by Tanika Ruvalcaba Conversion Measurement And Verification Engineer Cerner at 02/03/2023 4:47 PM CDT documented in this encounter Plan of Treatment Upcoming Encounters Date Type Department Care Team (Late st Contact Info) Description 11/01/2025 9:00 AM EST Office Visit [facility] [address] [facility] [address] [place] [address] 12/26/2025 10:00 AM EDT Office Visit [facility] [address] [place] [address] [address] [place] [address] Lino Solis MD [address] [place] [address] [address] [place] [address] documented as of this encounter Visit Diagnoses Not on filedocumented in this encounter Care Teams Metal Painter Relationship Specialty Start Date End Date Ronaldo Kong MD [address] [place] [address] PCP - General General Internal Medicine 12/24/2210/19 Tanna Finch APRN [address] [place] [phone] PCP - General Nurse Practitioner 11/04/24 documented as of this encounter
--- OUTSIDE RECORDS SUMMARY | 2025-10-18 09:55 | XMS_ITS | Clinical Summary ---
Author Organization [employer] ([place], [place], [place], [place], [place]) Address [address] [place] [address] Care Team Providers Care Interstate Bus Dispatcher Name Role Phone Tanna Finch APRN Primary Care Provid er Allergies Active Allergy Reactions Criticality Noted Date Comments Adhesive Tape Rash Low 09/08/2022 Diphenhydramine Hives High 10/01/2010 Diphtheria Toxoid,Adsorbed Rash Low 2 Gabapentin Anaphylaxis High 08/28/2025 Meclizine Hcl Rash [...] 200 mg every evening. 270 capsule 3 Active desvenlafaxine 50 mg Tb24 1 tablet Orally Once a day Active nystatin, bulk, 10 billion unit powd as directed. Active Active Problems Problem Noted Date Diagnosed [...] Description 08/28/2025 2:00 PM EST Office Visit [facility] Orthopedics - [address] [place] [address] Kaushik London PA-C Bilateral carpal tunnel syndrome (Primary Dx); Cubital tunnel syndrome, bilateral 08/21/2025 1:30 PM EST Office Visit [facility] Neurology - [address] [place] [address] Lino Solis MD Fibromyalgia (Primary [...] Comments Father Christiano Rosario Maternal Grandmother Consuelo Lira Mother Alive Other Social History Tobacco Use [...] Date Joseph rded Speak language other than South Korean at home Not on file 11/06/2023 [...] Office Visit [facility] Neurology - [address] [place] [address] 12/26/2025 10:00 AM EDT Office Visit [facility] Neurology - [address] [place] [address] Lino Solis MD [address] [place] [address] Health Maintenance Due Date Last Done Comments CT Colonography 1970 Colonoscopy 1970 Colorectal Cancer Screening 1970 FOBT/FIT 1970 Fit-DNA (Cologuard) 1970 Sigmoidoscopy 1970 HIV Screening 1985 Hepatitis C Screening 1988 DTAP/TDAP/TD VACCINES (1 - Tdap) 1989 Pap Smear 1991 Breast Cancer Screening 2010 Lung Cancer Screening 2020 05/06/2019 Tobacco Cessation Counseling and Screening (12+) 08/05/2024 08/05/2023 COVID-19 VACCINE (3 - 2024- season) 2025, 01/19/2021 Influenza Vaccine (#1) 2025 07/11/2019 Lipid Panel 01/15/2026 01/15/2023, 06/07/2020 Pneumococcal 50+ years Completed 07/04/2022 Shingles Vaccine (Zoster) Completed 11/21/2024, Medical Devices Implanted Type Area Engineering Librarian Device Identifier Shelf Expiration Date Model / Serial / Lot Assurity Pacemaker-07/20 Implanted:07/20 (Quantity not on file) Pacemakers Chest CARLTON VASC[employer] DEVICE CARLTON ASSURITY PACEMAKER [id number] / [id number] / Description:CARLTON ASSURITY PACEMAKER GENERATOR-[id number] RV LEAD SERIAL# [id number] MODEL [id number] RA LEAD SERIAL# [id number] MODEL 2087TC/52 1.5T AND NORMAL OPERATING MODE FULL BODY RF TRANSMIT COIL WITH ANY RECEIVE COIL. LOCAL RF TRANSMIT-RECEIVE COIL IN NORMAL MODE RF TRANSMIT-RECEIVE HEAD COIL RF TRANSMIT-RECEIVE LOWER EXTREMITY COIL RF TRANSMIT RECEIVE UPPER EXTREMITY COIL SPATIAL FIELD GRADENT<30T/m (3000 G/CM) GRADIENT SLEW RATE <200 T/m/s Pain Mgmt/Stimulato r-02/13/2023 Implanted:01/18 (Quantity not on file) Pain Mgmt/Stimulato r MEDTRONIC AvisenaTRONIC SYNCHROMED ll 8637-20 / [id number] / Description:1.5T AND 3T RF COIL-ANY TYPE MAX SPATIAL FIELD GRADIENT OF 19T/m (1900 GAUSS/CM MAX GRADIENT SLEW RATE-200T/M/S OR LESS MAX RF FIELD INTENSITY-FIRST LEVEL CONTROL ACTIVE SCAN TIME-THE RISK OF HEATING INCREASES FOR ACTIVE TORSO SCANNING DURATIONS OVER 30 MIN. Pain Mgmt/Stimulato r-08/13/2023 Implanted:07/20 (Quantity not on file) Pain Mgmt/Stimulato r Hip dakick NEUROSTIMULAT OR-F15 MODEL 4101 4101 / [id number] / Description:1.5T AND 3T MUST PACE [...] 5:23 AM EDT 06/07/2020 9:51 AM EDT [facility] Historical Provider PATHOLOGY/CYTOLOGY HERMANE SHARON Final Result Performing Organization Address City/State/[facility] Co de Phone Number [facility] [address] [place] [address] * CT chest for pulmonary embolus (05/06/2019 [...] Recently Relevant to Health Maintenance Insurance [facility] Care Teams Interstate Bus Dispatcher Relationship Specialty Start Date End Date Tanna Finch APRN [address] [place] [phone] PCP - General Nurse Practitioner 11/04/24
--- OUTSIDE RECORDS SUMMARY | 2025-10-18 09:55 | XMS_ITS | Encounter Summary ---
Author Organization [employer] ([place], [place], [place], [place], [place]) Address [address] [place] [address] Care Team Providers Care Cone Picker Name Role Phone Ronaldo Kong MD Primary Care Provider [phone] Tanna Finch APRN Primary Care Provid er Encounter Details Date Type Department Care Team (Late st Contact Info) Description 06/07/2020 Transcribed Document [facility] [place] Replaced by [facility] [place] [address] ProviderJorje MD [address] [place] [address] Social History Tobacco Use Types Packs/Day [...] Policy Numbers : Insurance 1 Health Plan: [employer] Medicaid Policy Number: [id number] Authorization Number: Insurance Primary Name : [place] Medicaid Authorization Status-Primary : Awaiting callback Authorized Service Begin Date-Primary : 06/06/2020 EDT Authorization Comments-Primary : Uploaded clinicals to [employer] via [employer]. Historical Authorization Comments-Primary : No Authorization Comments Found AGUILAR KERR RN-Utilization Review - 06/07/2020 11:54 EDT documented in this encounter Plan of Treatment Upcoming Encounters Date Type Department Care Team (Late st Contact Info) Description 11/01/2025 9:00 AM EST Office Visit [facility] Neurology - [address] [facility] [address] [place] [address] 12/26/2025 10:00 AM EDT Office Visit [facility] [address] [place] [address] Lino Solis MD [address] [place] [address] [address] [place] [address] documented as of this encounter Visit Diagnoses Not on filedocumented in this encounter Care Teams Cone Picker Relationship Specialty Start Date End Date Ronaldo Kong MD [address] [place] [address] PCP - General General Internal Medicine 12/24/2210/19 Tanna Finch APRN [address] [place] [phone] PCP - General Nurse Practitioner 11/04/24 documented as of this encounter
--- OUTSIDE RECORDS SUMMARY | 2025-10-18 09:55 | XMS_ITS | Encounter Summary ---
Author Organization [employer] ([place], [place], [place], [place], [place]) Address [address] [place] [address] Care Team Providers Care Development Associate Name Role Phone Ronaldo Kong MD Primary Care Provider [phone] Tanna Finch APRN Primary Care Provid er Encounter Details Date Type Department Care Team (Late st Contact Info) Description 06/12/2020 Transcribed Document [facility] [place] Family [place] [address] [place] [address] ProviderJorje MD [address] [place] [address] Social History Tobacco Use Types Packs/Day [...] 06/12/2020 14:46 EDT by CAROL ANN MELCHOR dye house hand and Pulmonary Outpatient Pasha Criteria Disqualifying for Phase 2 Cardiac Rehab : No qualifying diagnosis Patient is scheduled for Phase 2 Cardiac rehab : No Cardiac Outpatient Rehab Evaluation Comment : EF 65% CAROL ANN MELCHOR RN - 06/12/2020 14:46 EDT Electronically signed by Jordon [facility] Conversion Foot Roentgenologist Cerner at 02/03/2023 4:48 PM CDT documented in this encounter Plan of Treatment Upcoming Encounters Date Type Department Care Team (Late st Contact Info) Description 11/01/2025 9:00 AM EST Office Visit [facility] [address] [facility] [address] [place] [address] 12/26/2025 10:00 AM EDT Office Visit [facility] [address] [facility] [address] [place] [address] Lino Solis MD [address] [place] [address] [address] [place] [address] documented as of this encounter Visit Diagnoses Not on filedocumented in this encounter Care Teams Development Associate Relationship Specialty Start Date End Date Ronaldo Kong MD [address] [place] [address] PCP - General General Internal Medicine 12/24/2210/19 Tanna Finch APRN [address] [place] [phone] PCP - General Nurse Practitioner 11/04/24 documented as of this encounter
--- OUTSIDE RECORDS SUMMARY | 2025-10-18 09:56 | XMS_ITS | Encounter Summary ---
Author Organization [employer] ([place], [place], [place], [place], [place]) Address [address] [place] [address] Care Team Providers Care Network Controller Name Role Phone Ronaldo Kong MD Primary Care Provider [phone] Tanna Finch APRN Primary Care Provid er Encounter Details Date Type Department Care Team (Late st Contact Info) Description 05/06/2019 Transcribed Document [facility] [place] [facility] [address] ProviderJorje MD [address] [place] [address] Social History Tobacco Use Types Packs/Day [...] no N/V, pain 04/27 , no meds CLEAT FEEDER KATHERYN VALENTIN RN - 05/06/2019 11:23 EDT DCP GENERIC CODE Tracking Acuity : 2 - Emergent Tracking Group : [facility] KATHERYN VALENTIN RN - 05/06/2019 [...] mmHg Oxygen Saturation : 100 % KATHERYN VALENTIN RN - 05/06/2019 11:23 EDT Allergy (As [...] 05/06/2019 11:26:35 EDT) Problems(Active) Anxiety (SNOMED CT :54072843 ) Name of Problem: Anxiety ; Recorder: PAO ONEAL RN; Confirmation: Confirmed ; Classification: Medical ; Code: [id number] ; Contributor System: PowerChart ; Last Updated: 10/20/2017 12:18 EST ; Life Cycle Date: 10/20/2017 ; Life Cycle Status: Active ; Vocabulary: SNOMED CT Arthritis (SNOMED CT :4630306 ) Name of Problem: Arthritis ; Recorder: PAO ONEAL RN; Confirmation: Confirmed ; Classification: Medical ; Code: 3669935 ; Contributor System: PowerChart ; Last Updated: 10/20/2017 12:22 EST ; Life Cycle Date: 10/20/2017 ; Life Cycle Status: Active ; Vocabulary: SNOMED CT Asthma (SNOMED CT :282278350 ) Name of Problem: Asthma ; Recorder: KIRAN BARNEY PA; Confirmation: Confirmed ; Classification: Medical ; Code: 176111194 ; Contributor System: PowerChart ; Last Updated: 10/20/2017 12:02 EST ; Life Cycle Date: 10/20/2017 ; Life Cycle Status: Active ; Vocabulary: SNOMED CT Borderline personality disorder (SNOMED CT :89406510 ) Name of Problem: Borderline personality disorder ; Recorder: PAO ONEAL RN; Confirmation: Confirmed ; Classification: Medical ; Code: 20906161 ; Contributor System: PowerChart ; Last Updated: 10/20/2017 12:20 EST ; Life Cycle Date: 10/20/2017 ; Life Cycle Status: Active ; Vocabulary: SNOMED CT Cornea scar (SNOMED CT :715803176 ) Name of Problem: Cornea scar ; Recorder: PAO ONEAL RN; Confirmation: Confirmed ; Classification: Medical ; Code: 040510027 ; Contributor System: PowerChart ; Last Updated: 10/20/2017 12:19 EST ; Life Cycle Date: 10/20/2017 ; Life Cycle Status: Active ; Vocabulary: SNOMED CT Depression (SNOMED CT :521135028 ) Name of Problem: Depression ; Recorder: KIRAN BARNEY PA; Confirmation: Confirmed ; Classification: Medical ; Code: 717276905 ; Contributor System: PowerChart ; Last Updated: 10/20/2017 12:02 EST ; Life Cycle Date: 10/20/2017 ; Life Cycle Status: Active ; Vocabulary: SNOMED CT Diverticulitis (SNOMED CT :259390230 ) Name of Problem: Diverticulitis ; Recorder: KIRAN BARNEY PA; Confirmation: Confirmed ; Classification: Medical ; Code: 456371399 ; Contributor System: PowerChart ; Last Updated: 10/20/2017 12:03 EST ; Life Cycle Date: 10/20/2017 ; Life Cycle Status: Active ; Vocabulary: SNOMED CT DJD (degenerative joint disease) (SNOMED CT :[id number] ) Name of Problem: DJD (degenerative joint disease) ; Recorder: KIRAN BARNEY PA; Confirmation: Confirmed ; Classification: Medical ; Code: [id number] ; Contributor System: PowerChart ; Last Updated: 10/20/2017 12:00 EST ; Life Cycle Date: 10/20/2017 ; Life Cycle Status: Active ; Vocabulary: SNOMED CT DM - Diabetes mellitus (SNOMED CT :524172106 ) Name of Problem: DM - Diabetes mellitus ; Recorder: KIRAN BARNEY PA; Confirmation: Confirmed ; Classification: Medical ; Code: 941080526 ; Contributor System: PowerChart ; Last Updated: 10/20/2017 12:02 EST ; Life Cycle Date: 10/20/2017 ; Life Cycle Status: Active ; Vocabulary: SNOMED CT Fibromyalgia (SNOMED CT :571627572 ) Name of Problem: Fibromyalgia ; Recorder: KIRAN BARNEY PA; Confirmation: Confirmed ; Classification: Medical ; Code: 671241970 ; Contributor System: PowerChart ; Last Updated: 10/20/2017 12:00 EST ; Life Cycle Date: 10/20/2017 ; Life Cycle Status: Active ; Vocabulary: SNOMED CT Folic acid deficiency (SNOMED CT :797630990 ) Name of Problem: Folic acid deficiency ; Recorder: PAO ONEAL RN; Confirmation: Confirmed ; Classification: Medical ; Code: 452864063 ; Contributor System: PowerChart ; Last Updated: 10/20/2017 12:17 EST ; Life Cycle Date: 10/20/2017 ; Life Cycle Status: Active ; Vocabulary: SNOMED CT Glaucoma (SNOMED CT :82267374 ) Name of Problem: Glaucoma ; Recorder: KIRAN BARENY PA; Confirmation: Confirmed ; Classification: Medical ; Code: 65279936 ; Contributor System: PowerChart ; Last Updated: 10/20/2017 12:02 EST ; Life Cycle Date: 10/20/2017 ; Life Cycle Status: Active ; Vocabulary: SNOMED CT HTN - Hypertension (SNOMED CT :4063393313 ) Name of Problem: HTN - Hypertension ; Recorder: KIRAN BARNEY PA; Confirmation: Confirmed ; Classification: Medical ; Code: 6870227258 ; Contributor System: PowerChart ; Last Updated: 10/20/2017 12:01 EST ; Life Cycle Date: 10/20/2017 ; Life Cycle Status: Active ; Vocabulary: SNOMED CT Hypothyroid (SNOMED CT :745370970 ) Name of Problem: Hypothyroid ; Recorder: KIRAN BARNEY PA; Confirmation: Confirmed ; Classification: Medical ; Code: 447762731 ; Contributor System: PowerChart ; Last Updated: 10/20/2017 12:00 EST ; Life Cycle Date: 10/20/2017 ; Life Cycle Status: Active ; Vocabulary: SNOMED CT Migraines (SNOMED CT :67153747 ) Name of Problem: Migraines ; Recorder: PAO ONEAL RN; Confirmation: Confirmed ; Classification: Medical ; Code: 92893717 ; Contributor System: PowerChart ; Last Updated: 10/20/2017 12:16 EST ; Life Cycle Date: 10/20/2017 ; Life Cycle Status: Active ; Vocabulary: SNOMED CT PTSD (post-traumatic stress disorder) (SNOMED CT :3812MDF2-[id number] ) Name of Problem: PTSD (post-traumatic stress disorder) ; Recorder: KIRAN BARNEY PA; Confirmation: Confirmed ; Classification: Medical ; Code: [id number] ; Contributor System: PowerChart ; Last Updated: 10/20/2017 12:01 EST ; Life Cycle Date: 10/20/2017 ; Life Cycle Status: Active ; Vocabulary: SNOMED CT Sleep apnea (SNOMED CT :167228059 ) Name of Problem: Sleep apnea ; Recorder: PAO ONEAL RN; Confirmation: Confirmed ; Classification: Medical ; Code: 851760877 ; Contributor System: PowerChart ; Last Updated: 10/20/2017 12:16 EST ; Life Cycle Date: 10/20/2017 ; Life Cycle Status: Active ; Vocabulary: SNOMED CT Tobacco abuse (SNOMED CT :191181997 ) Name of Problem: Tobacco abuse ; Recorder: KIRAN BARNEY PA; Confirmation: Confirmed ; Classification: Medical ; Code: 998232439 ; Contributor System: PowerChart ; Last Updated: 10/20/2017 12:04 EST ; Life Cycle Date: 10/20/2017 ; Life Cycle Status: Active ; Vocabulary: SNOMED CT Tremors of nervous system (SNOMED CT :28730509 ) Name of Problem: Tremors of nervous system ; Recorder: PAO ONEAL RN; Confirmation: Confirmed ; Classification: Medical ; Code: 48463186 ; Contributor System: PowerChart ; Last Updated: 10/20/2017 12:19 EST ; Life Cycle Date: 10/20/2017 ; Life Cycle Status: Active ; Vocabulary: SNOMED CT Vitamin D deficiency (SNOMED CT :14427972 ) Name of Problem: Vitamin D deficiency ; Recorder: PAO ONEAL RN; Confirmation: Confirmed ; Classification: Medical ; Code: 62651563 ; Contributor System: PowerChart ; Last Updated: 10/20/2017 12:17 EST ; Life Cycle Date: 10/20/2017 ; Life Cycle Status: Active ; Vocabulary: SNOMED CT Diagnoses(Active) Chest pressure Date: 05/06/2019 ; Diagnosis Type: Reason For Visit ; Confirmation: Complaint of ; Clinical Dx: Chest pressure ; Classification: Medical ; Clinical Service: Emergency medicine ; Code: PNED ; Probability: 0 ; Diagnosis Code: [id number] ED Height and Weight Height Source : Stated Height Entry Format : Bollinger Height, Feet : 5 ft(Converted to: 152 cm, 60 Inch) Height, Inches : 7 Inch(Converted to: 0 ft 7 Inch, 17.78 cm) Clinical Height : 170.18 cm Weight Source, ED : Critical estimated dosing weight Weight Entry Format : Bollinger Weight, Pounds : 290 lb Clinical Dosing Weight : 131.82 kg Body Surface Area (BSA) : 2.37 m2 Body Mass Index : 45.5 kg/m2 (>HHI) Carmichael Body Weight (IBW) : 61.16 kg KATHERYN [...] Description 11/01/2025 9:00 AM EST Office Visit [address] [place] [address] 12/26/2025 10:00 AM EDT Office Visit [address] [place] [address] Lino Solis MD [address] [place] [address] [address] [place] [address] documented as of this encounter Visit Diagnoses Not on filedocumented in this encounter Care Teams Network Controller Relationship Specialty Start Date End Date Ronaldo Kong MD [address] [place] [address] [place] [address] PCP - General General Internal Medicine 12/24/2210/19 Tnana Finch APRN [address] [place] [phone] PCP - General Nurse Practitioner 11/04/24 documented as of this encounter
--- OUTSIDE RECORDS SUMMARY | 2025-10-18 09:56 | XMS_ITS | Encounter Summary ---
Author Organization [employer] ([place], [place], [place], [place], [place]) Address [address] [place] [address] Care Team Providers Care Field Service Technician Poultry Name Role Phone Ronaldo Kong MD Primary Care Provider [phone] Tanna Finch APRN Primary Care Provid er Encounter Details Date Type Department Care Team (Late st Contact Info) Description 05/05/2019 Transcribed Document [facility] [place] [address] [place] [address] ProviderJorje MD [address] [place] [address] Social History Tobacco Use Types Packs/Day Years [...] SERVICE: 05/05/2019 SLEEP MEDICINE FOLLOWUP REFERRING PROVIDER: Lnio Solis. PSYCHIATRIST: Haleigh Stahl. EPILEPTOLOGIST: Dr. Schultz. [...] reports that she feels much better. Her [place] score is 4/24. Insomnia--the patient reports she [...] Solis CC4: Haleigh Stahl CC5: Dr. Schultz Electronically signed by Tanika Ruvalcaba Conversion Professional Benefits Sales Consultant Cerner at 02/03/2023 4:50 PM CDT documented in this encounter Plan of Treatment Upcoming Encounters Date Type Department Care Team (Late st Contact Info) Description 11/01/2025 9:00 AM EST Office Visit [facility] Neurology - [address] [employer] 12/26/2025 10:00 AM EDT Office Visit [facility] Neurology - [address] [place] [address] Lino Solis MD [address] [facility] [address] [place] [address] documented as of this encounter Visit Diagnoses Not on filedocumented in this encounter Care Teams Field Service Technician Poultry Relationship Specialty Start Date End Date Dilan, Ronaldo Yates MD [address] [place] [address] [place] [address] PCP - General General Internal Medicine 12/24/2210/19 Tanna Finch APRN [address] [place] [phone] PCP - General Nurse Practitioner 11/04/24 documented as of this encounter
--- OUTSIDE RECORDS SUMMARY | 2025-10-18 09:56 | XMS_ITS | Encounter Summary ---
Author Organization [employer] ([place], [place], [place], [place], [place]) Address [address] [place] [address] Care Team Providers Care Camera Technician Name Role Phone Ronaldo Kong MD Primary Care Provider [phone] Tanna Finch APRN Primary Care Provid er Encounter Details Date Type Department Care Team (Late st Contact Info) Description 06/11/2020 Transcribed Document [facility] [place] [address] ProviderJorje MD [address] [place] [address] Social History Tobacco Use Types Packs/Day [...] Policy Numbers : Insurance 1 Health Plan: [employer] Policy Number: [id number] Authorization Number: Insurance Primary Name : [employer] [id number] Authorization Status-Primary : Denial - admission Reference Number-Primary : [id number] Authorized Service Begin Date-Primary : 06/06/2020 EDT [...] (WU HARMAN RN 06/08/2020 14:25) Comment 2: [employer] Medicaid denied per fax for inpt (MARU KHAN, RN-Utilization Review 06/08/2020 11:28) Comment 3: Uploaded clinicals to [employer] via [employer]. (AGUILAR KERR, DANIELA-Utilization Review 06/07/2020 11:54) WU HARMAN RN - 06/11/2020 15:08 EDT documented in this encounter Plan of Treatment Upcoming Encounters Date Type Department Care Team (Late st Contact Info) Description 11/01/2025 9:00 AM EST Office Visit [address] [address] 12/26/2025 10:00 AM EDT Office Visit [address] [place] [address] Lino Solis MD [address] [place] [address] [address] [place] [address] documented as of this encounter Visit Diagnoses Not on filedocumented in this encounter Care Teams Camera Technician Relationship Specialty Start Date End Date Ronaldo Kong MD [address] [place] [address] LIZBETH MULLER [address] PCP - General General Internal Medicine 12/24/2210/19 Tanna Finch, OMAR [address] [place] [phone] PCP - General Nurse Practitioner 11/04/24 documented as of this encounter
--- OUTSIDE RECORDS SUMMARY | 2025-10-18 09:56 | XMS_ITS | Encounter Summary ---
Author Organization [employer] ([place], [place], [place], [place], [place]) Address [address] [place] [address] Care Team Providers Care Fish Bailer Name Role Phone Ronaldo Kong MD Primary Care Provider [phone] Tanna Finch APRN Primary Care Provid er Encounter Details Date Type Department Care Team (Late st Contact Info) Description 06/12/2020 Transcribed Document [facility] [place] [facility] [place] [address] ProviderJorje MD [address] [place] [address] Social History Tobacco Use Types Packs/Day [...] Policy Numbers : Insurance 1 Health Plan: [employer] [place] [employer] Policy Number: [id number] Authorization Number: Insurance Primary Name : [place] [place] [employer] [id number] Authorization Status-Primary : Admit approved Reference Number-Primary : [id number] Number of Days Authorized-Primary : 2 Day(s) [...] (MARU KHAN, DANIELA-Utilization Review 06/08/2020 11:28) Comment 5: Uploaded clinicals to [employer] via [employer]. (AGUILAR KERR, RN-Utilization Review 06/07/2020 11:54) WU HARMAN RN - 06/12/2020 16:05 EDT documented in this encounter Plan of Treatment Upcoming Encounters Date Type Department Care Team (Late st Contact Info) Description 11/01/2025 9:00 AM EST Office Visit [facility] Neurology [address] [place] [address] 12/26/2025 10:00 AM EDT Office Visit [facility] Neurology [address] [place] [address] Lino Solis MD [address] [place] [address] [address] [place] [address] documented as of this encounter Visit Diagnoses Not on filedocumented in this encounter Care Teams Fish Bailer Relationship Specialty Start Date End Date Ronaldo Kong MD [address] [place] [address] [place] [address] PCP - General General Internal Medicine 12/24/2210/19 Tanna Finch APRN [address] [place] [phone] PCP - General Nurse Practitioner 11/04/24 documented as of this encounter
--- OUTSIDE RECORDS SUMMARY | 2025-10-18 09:56 | XMS_ITS | Encounter Summary ---
Author Organization [employer] ([place], [place], [place], [place], [place]) Address [address] [place] [address] Care Team Providers Care Financial Processing Clerk Name Role Phone Ronaldo Kong MD Primary Care Provider [phone] Tanna Finch APRN Primary Care Provid er Encounter Details Date Type Department Care Team (Late st Contact Info) Description 02/01/2019 Transcribed Document [facility] [place] [address] [place] [address] ProviderJorje MD [address] [place] [phone] Social History Tobacco Use Types Packs/Day Years [...] depression and anxiety, status post hospitalization at [facility]. 10. Status post benign hysterectomy, two hip [...] apnea. She had been followed at the [facility] for this. She had a sleep study here at [facility] in 2017 revealing mild to moderate sleep [...] she has been untreated since then. Her Cook score is 18/24. She says that there [...] is exhausted during the day with an Cook score of 18/24. She reports that she [...] Cecilio Schultz MD CC5: Ronaldo Kong MD documented in this encounter Plan of Treatment Upcoming Encounters Date Type Department Care Team (Late st Contact Info) Description 11/01/2025 9:00 AM EST Office Visit [facility] Neurology - [address] [place] [address] 12/26/2025 10:00 AM EDT Office Visit [facility] [address] [facility] [address] [place] [address] Lino Solis MD [address] [place] [address] [address] [place] [address] documented as of this encounter Visit Diagnoses Not on filedocumented in this encounter Care Teams Financial Processing Clerk Relationship Specialty Start Date End Date Ronaldo Kong MD [address] [place] [address] PCP - General General Internal Medicine 12/24/2210/19 Tanna Finch APRN [address] [place] [phone] PCP - General Nurse Practitioner 11/04/24 documented as of this encounter
--- OUTSIDE RECORDS SUMMARY | 2025-10-18 09:56 | XMS_ITS | Encounter Summary ---
Author Organization [employer] ([place], [place], [place], [place], [place]) Address [address] [place] [address] Care Team Providers Care Harbor Boat Pilot Name Role Phone Ronaldo Kong MD Primary Care Provider [phone] Tanna Finch APRN Primary Care Provid er Encounter Details Date Type Department Care Team (Late st Contact Info) Description 06/12/2020 Transcribed Document [facility] [place] [facility] [place] [address] ProviderJorje MD [address] [place] [address] Social History Tobacco Use Types Packs/Day [...] Policy Numbers : Insurance 1 Health Plan: [employer] Policy Number: [id number] Authorization Number: Insurance Primary Name : [employer] [id number] Authorization Status-Primary : Denial - admission Reference Number-Primary : [id number] Authorized Service Begin Date-Primary : 06/06/2020 EDT Authorization Comments-Primary : Left VM for Wilmer at [employer] inquiring if overturned. Historical Authorization Comments-Primary : Comment 1: Called Dr. Royal office and spoke with Deena- She stated that Dr. Royal completed P2P this morning and was overturned. Availity has not been updated yet will follow. (UW HARMAN RN 06/11/2020 15:08) Comment 2: Called [...] 4: Uploaded clinicals to [employer] via [employer]. (AGUILAR KERR, RN-Utilization Review 06/07/2020 11:54) WU HARMAN RN - 06/12/2020 9:01 EDT documented in this encounter Plan of Treatment Upcoming Encounters Date Type Department Care Team (Late st Contact Info) Description 11/01/2025 9:00 AM EST Office Visit [address] [address] 12/26/2025 10:00 AM EDT Office Visit [address] [place] [address] Lino Solis MD [address] [place] [address] [address] [place] [address] documented as of this encounter Visit Diagnoses Not on filedocumented in this encounter Care Teams Harbor Boat Pilot Relationship Specialty Start Date End Date Ronaldo Kong MD [address] [place] [address] [place] [address] PCP - General General Internal Medicine 12/24/2210/19 Tanna Finch APRN [address] [place] [phone] PCP - General Nurse Practitioner 11/04/24 documented as of this encounter
--- OUTSIDE RECORDS SUMMARY | 2025-10-18 09:56 | XMS_ITS | Encounter Summary ---
Author Organization [employer] ([place], [place], [place], [place], [place]) Address [address] [place] [address] Care Team Providers Care Cranberry Grower Name Role Phone Ronlado Kong MD Primary Care Provider [phone] Tanna Finch APRN Primary Care Provid er Encounter Details Date Type Department Care Team (Late st Contact Info) Description 05/06/2019 Transcribed Document [facility] [place] [facility] [place] [address] ProviderJorje MD [address] [place] [address] Social History Tobacco Use Types Packs/Day [...] On: 05/06/2019 11:28 EDT by FELICITA NEWTON, CENTRIFUGAL SPINNER Quick Look Assessment Level of Consciousness : Alert Affect/Behavior : Calm Orientation : Oriented x 4 Skin Color : Pallor Skin Temperature : Warm FELICITA NEWTON RN - 05/06/2019 11:28 EDT ED General-Functional Assess Communication Barrier : None Primary Language : Salvadorean Any Spiritual/Cultural Needs or Requests : No [...] - 05/06/2019 11:28 EDT Electronically signed by [facility] Conversion Pipe Or Steam Fitter Furnace Installer Cerner at 02/03/2023 4:41 PM CDT documented in this encounter Plan of Treatment Upcoming Encounters Date Type Department Care Team (Late st Contact Info) Description 11/01/2025 9:00 AM EST Office Visit [facility] Neurology - [address] [facility] [address] [place] [address] 12/26/2025 10:00 AM EDT Office [facility] [address] [place] [address] Lino Solis MD [address] [place] [address] [address] [place], [place] [phone] documented as of this encounter Visit Diagnoses Not on filedocumented in this encounter Care Teams Cranberry Grower Relationship Specialty Start Date End Date Dilan, Ronaldo Yates MD [address] [place] [address] PCP - General General Internal Medicine 12/24/2210/19 Tanna Finch APRN [address] [place] [phone] PCP - General Nurse Practitioner 11/04/24 documented as of this encounter
--- OUTSIDE RECORDS SUMMARY | 2025-10-18 09:56 | XMS_ITS | Encounter Summary ---
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 History of Present Illness The patient [...] EDT Height Source Stated Height Entry Format Art[place]ia Height/Length, ITALIAN (ft) 5 ft Height/Length ITALIAN 7 Inch CLINICALHEIGHT 170.18 cm [place] Body Weight 61.16 kg Weight Source, ED Critical estimated dosing weight Weight Entry Format [place] Weight Fijian lb 290 lb CLINICALWEIGHT 131.82 kg Body [...] rhythm, No ST changes, no ectopy, normal TX & QRS intervals, EP Interp. Results review: Lab results : Lab Results 05/06/2019 14:53 EDT Urine Type U CleanCatch Urine Color Yellow Urine Appearance Clear Urine Specific Thayer >1.030 HI Urine pH Dipstick 7.5 Urine [...] 16.5 % LOW Lymph # 2.22 x10(3)/uL Merrick % 6.3 % Merrick # 0.85 K/uL Eos % 1.3 % Eos # 0.18 x10(3)/uL Baso % 0.4 % Baso # 0.05 x10(3)/uL Slide Review No IG# 0.19 x10(3)/uL HI IG% 1.40 % HI PT 9.5 Second(s) LOW INR 0.9 D Dimer Quant see comment mg/L FEU . Radiology results: Radiology Results (Last 48 hours) [id number] -- 05/06/2019 11:17 CR Chest 1 Vw [...] to contact our Patient Resource Center at [phone] for any future Physician scheduling needs. ; RONALDO PFEIFFER Within 2 to 3 days. Counseled: Patient, Regarding diagnosis, Regarding diagnostic results, Regarding treatment plan, Regarding prescription, Patient indicated understanding of instructions. Electronically signed by Tanika Ruvalcaba Conversion Technician Helper Instrument Cerner at 02/03/2023 4:48 PM CDT documented in this encounter Plan of Treatment Upcoming Encounters Date Type Department Care Team (Late st Contact Info) Description 11/01/2025 9:00 AM EST Office Visit [facility] Neurology [address] [address] 12/26/2025 10:00 AM EDT Office Visit [facility] Neurology [address] [place] [address] Lino Solis MD [address] [place] [address] [address] [place] [address] documented as of this encounter Visit Diagnoses Not on filedocumented in this encounter Care Teams Rebar Worker Relationship Specialty Start Date End Date Ronaldo Pfeiffer MD [address] [place] [address] LIZBETH MULLER [address] PCP - General General Internal Medicine 12/24/2210/19 Tanna Finch, OMAR [address] [place] [phone] PCP - General Nurse Practitioner 11/04/24 documented as of this encounter
--- OUTSIDE RECORDS SUMMARY | 2025-10-18 09:56 | XMS_ITS | Encounter Summary ---
Author Organization [employer] ([place], [place], [place], [place], [place]) Address [address] [place] [address] Care Team Providers Care Halftone Operator Name Role Phone Ronaldo Kong MD Primary Care Provider [phone] Tanna Finch APRN Primary Care Provid er Encounter Details Date Type Department Care Team (Late st Contact Info) Description 05/06/2019 Transcribed Document [facility] [place] [address] [place] [address] ProviderJorje MD [address] [place] [address] Social History Tobacco Use Types Packs/Day [...] EDT CALLI HANKS - 05/06/2019 15:11 EDT documented in this encounter Plan of Treatment Upcoming Encounters Date Type Department Care Team (Late st Contact Info) Description 11/01/2025 9:00 AM EST Office [facility] [address] [facility] [address] [place] [address] 12/26/2025 10:00 AM EDT Office Visit [facility] [address] [place] [address] Lino Solis MD [address] [place] [address] [address] [place] [address] documented as of this encounter Visit Diagnoses Not on filedocumented in this encounter Care Teams Halftone Operator Relationship Specialty Start Date End Date Ronaldo Kong MD [address] [place] [address] PCP - General General Internal Medicine 12/24/2210/19 Tanna Finch APRN [address] [place] [phone] PCP - General Nurse Practitioner 11/04/24 documented as of this encounter
--- OUTSIDE RECORDS SUMMARY | 2025-10-18 09:56 | XMS_ITS | Encounter Summary ---
Author Organization [employer] ([place], [place], [place], [place], [place]) Address [address] [place] [address] Care Team Providers Care Mechanical Assembler Name Role Phone Krissy Pfeiffer MD Primary Care Provider [phone] Tanna Finch APRN Primary Care Provid er Encounter Details Date Type Department Care Team (Late st Contact Info) Description 05/06/2019 Transcribed Document [facility] [place] Family Medicine [address] [place] [address] ProviderJorje MD [address] [place] [address] Social History Tobacco Use Types Packs/Day [...] Jorje ProviderMD - 05/06/2019 3:35 PM CDT [facility] LIZBETH [place] [address] FRANNIE NUÑEZ :1970 [...] to contact our Patient Resource Center at [phone] for any future Physician scheduling needs. Follow Up with KRISSY PFEIFFER When Within 2 to 3 days Where: [address] [place] [address] [facility] (1) Allergies Benadryl tetanus immune globulin Immunizations [...] range between ( 0.0 and 7.0 ) Creek #: 0.85 K/uL -- Normal range between ( 0.16 and 1.00 ) Eos #: 0.18 x10(3)/uL -- Normal range between ( 0.00 and 0.80 ) Creek %: 6.3 % -- Normal range between [...] ) Urine Bilirubin Dipstick: Negative Urine Specific [place]: >1.030 -- Normal range between ( 1.005 [...] you start to feel better. ??? Take fsap-nsn-deufrqy and prescription medicines only as told by [...] 07/15/2006 Document Revised: 06/29/2017 Document Reviewed: 06/29/2017 [employer] Patient Education ?? 2019 [employer] Emergency Awareness and Preventative Care STROKE [...] Assistance with quitting is available by contacting 9-546-MSZB-NOW. This is a free resource providing counseling, [...] was given the opportunity to ask questions. Patient/Sql Server Architect Name: Patient/Sql Server Architect Signature: Relationship to Patient: Clinician/Hospital Sql Server Architect Signature: Please Provide a Telephone Number Where You Can Be Reached: Is it Permissible To Leave a Message? Date: documented in this encounter Plan of Treatment Upcoming Encounters Date Type Department Care Team (Late st Contact Info) Description 11/01/2025 9:00 AM EST Office [facility] [address] [facility] [address] [place] [address] 12/26/2025 10:00 AM EDT Office Visit [facility] [address] [place] [address] [address] [place] [address] Lino Solis MD [address] [place] [address] [address] [place] [address] documented as of this encounter Visit Diagnoses Not on filedocumented in this encounter Care Teams Mechanical Assembler Relationship Specialty Start Date End Date Krissy Pfeiffer MD [address] [place] [address] PCP - General General Internal Medicine 12/24/2210/19 Tanna Finch APRN [address] [place] [phone] PCP - General Nurse Practitioner 11/04/24 documented as of this encounter
--- OUTSIDE RECORDS SUMMARY | 2025-10-18 09:56 | XMS_ITS | Encounter Summary ---
Author Organization [employer] ([place], [place], [place], [place], [place]) Address [address] [place] [address] Care Team Providers Care Tectonophysicist Name Role Phone Ronaldo Kong MD Primary Care Provider [phone] Tanna Finch APRN Primary Care Provid er Encounter Details Date Type Department Care Team (Late st Contact Info) Description 11/01/2021 Transcribed Document [facility] [place] Medicine [facility] [place] [address] ProviderJorje MD [address] [place] [address] Social History Tobacco Use Types Packs/Day [...] - Historical ProviderMD - 11/01/2021 3:29 PM DRILL RUNNER HELPER PAT Adult Entered On: 11/01/2021 15:37 EST [...] Source : Measured Height Entry Format : Mercer Height, Feet : 5 ft(Converted to: 152 cm, 60 Inch) Height, Inches : 7 Inch(Converted to: 0 ft 7 Inch, 17.78 cm) Clinical Height : 170.18 cm Weight Source : Standing scale Weight Entry Format : Mercer Clinical Dosing Weight : 130.91 kg Weight, Pounds : 288 lb Body Surface Area (BSA) : 2.36 m2 Body Mass Index : 45.2 kg/m2 (>HHI) Bowlegs Body Weight : 61 kg EDYTA AMADOR RN - 11/04/2021 13:12 EST Health Histories Smoking Status : 4 or less cigarettes(less than 1/4 pack)/day in last 30 days Smokeless Tobacco Status : Never Desires Tobacco Cessation Medication : No Reason for No Tobacco Cessation Medication : Refuses FDA approved medications Implant/Device Type, Tax Collection Coordinator and Model : neck fusion; R and [...] KISHAN SORIA RN - 11/01/2021 15:29 EST [place] Suicide Severity Rating Scale (C-SSRS) CSSRS Lifetime [...] Obtained From : Patient Primary Language : Stateless Communication Barrier : None Internal Audit Senior Manager Needed : No KISHAN SORIA RN - [...] Description 11/01/2025 9:00 AM EST Office Visit [facility] Neurology [address] [address] 12/26/2025 10:00 AM EDT Office Visit [address] [address] Lino Solis MD [address] [place] [address] documented as of this encounter Visit Diagnoses Not on filedocumented in this encounter Care Teams Tectonophysicist Relationship Specialty Start Date End Date Ronaldo Kong MD [address] [place] [address], [place] [address] PCP - General General Internal Medicine 12/24/2210/19 Tanna Finch APRN [address] [place] [phone] PCP - General Nurse Practitioner 11/04/24 documented as of this encounter
--- OUTSIDE RECORDS SUMMARY | 2025-10-18 09:56 | XMS_ITS | Encounter Summary ---
Author Organization [employer] ([place], [place], [place], [place], [place]) Address [address] [place] [address] Care Team Providers Care Paradichlorobenzene Machine Operator Name Role Phone Ronaldo Kong MD Primary Care Provider [phone] Tanna Finch APRN Primary Care Provid er Encounter Details Date Type Department Care Team (Late st Contact Info) Description 08/28/2020 Transcribed Document [facility] Pulm & Critical Care Medicine [address] [place] [address] [address] Anthony Lechuga MD [address] [facility] [address] [place] [address] Social History Tobacco Use Types Packs/Day Years [...] evidence of desaturation. Clinical correlation is advised. /[id number] Anthony Lechuga MD EAC/AQ / EAC / MODL /[id number] documented in this encounter Plan of Treatment Upcoming Encounters Date Type Department Care Team (Late st Contact Info) Description 11/01/2025 9:00 AM EST Office Visit [facility] Neurology - [address] [place] [address] 12/26/2025 10:00 AM EDT Office Visit [facility] Neurology - [address] [place] [address] Lino Solis MD [address] [facility] [address] [place] [address] documented as of this encounter Visit Diagnoses Not on filedocumented in this encounter Care Teams Paradichlorobenzene Machine Operator Relationship Specialty Start Date End Date Ronaldo Kong MD [address] [place] [address] PCP - General General Internal Medicine 12/24/2210/19 Tanna Finch APRN [address] [place] [phone] PCP - General Nurse Practitioner 11/04/24 documented as of this encounter
--- OUTSIDE RECORDS SUMMARY | 2025-10-18 09:56 | XMS_ITS | Encounter Summary ---
Author Organization [employer] ([place], [place], [place], [place], [place]) Address [address] [place] [address] Care Team Providers Care Accident Report Clerk Name Role Phone Ronaldo Kong MD Primary Care Provider [phone] Tanna Finch APRN Primary Care Provid er Encounter Details Date Type Department Care Team (Late st Contact Info) Description 02/11/2019 Transcribed Document [facility] [place] Family Medicine [address] [place] [address] ProviderJorje MD [address] [place] [address]351 Social History Tobacco Use Types Packs/Day Years [...] will be seen in followup at the [facility]. Paresh Jaime M.D. Dict: 02/11/2019 17:12:55 Trans: 02/11/2019 21:34:50 CC1: Paresh Jaime M.D. CC2: Lino Solis M.D. CC3: Haleigh Stahl M.D. CC4: Cecilio Schultz MD CC5: Ronaldo Kong M.D. Electronically signed by [facility] Conversion Admissions Clerk Cerner at 02/03/2023 4:48 PM CDT documented in this encounter Plan of Treatment Upcoming Encounters Date Type Department Care Team (Late st Contact Info) Description 11/01/2025 9:00 AM EST Office Visit [facility] Neurology - [address] [place] [address] 12/26/2025 10:00 AM EDT Office Visit [facility] Neurology - [address] [place] [address] Lino Solis MD [address] [place] [address] [address] [place] [address] documented as of this encounter Visit Diagnoses Not on filedocumented in this encounter Care Teams Accident Report Clerk Relationship Specialty Start Date End Date Dilan, Ronaldo Yates MD [address] [place] [address] PCP - General General Internal Medicine 12/24/2210/19 Tanna Finch APRN [address] [place] [phone] PCP - General Nurse Practitioner 11/04/24 documented as of this encounter
--- OUTSIDE RECORDS SUMMARY | 2025-10-18 09:56 | XMS_ITS | Encounter Summary ---
[facility] [address] [place] [address] Care Team Providers Care Network Systems Analyst Name Role Phone System, Provider Not In Primary Care Provider Un available Encounter Details Date Type Department Care Team (Late Contact Info) Description 10/02/2022 Telephone [facility] PRIMARY [facility]ARE [address] [place] [address] [place] [phone] Ronaldo Kong MD [address] [place] [address] [place] [id number] Social History Tobacco Use [...] Description 11/13/2025 11:00 AM EST Office Visit [facility] [address] [place] [phone] Daphney aHll MD [address] [place] [address] [place] [address] 11/13/2025 11:00 AM EST Clinical Support No Requirements [facility] [address] [place] [address] [place] [phone] 12/20/2025 1:30 PM EST Office Visit [facility] [address] [place] [address] [place] [phone] Daphney Hall MD [address] [place] [address] [place] [address] 12/20/2025 1:30 PM EST Clinical Support No Requirements [facility] [address] [place] [address] [place] [phone] documented as of this encounter Visit Diagnoses Not on filedocumented in this encounter Additional Health Concerns Assessment Noted Time PHQ-2 Depression Total Score: 3 05/27/20 22 12:00 PM EDT documented as of this encounter Care Teams Network Systems Analyst Relationship Specialty Start Date End Date System, [place] [address] PCP - General 02/14/25 documented as of this encounter
[2025-10-18 10:15] LABS: Hematocrit 37.5 % (37.0-47.0); Hemoglobin 12.3 g/dL (12.2-16.2); Immature Granulocytes % 0.3 %; Mean Corpuscular HGB Conc 32.8 g/dL (31.8-35.4); Mean Corpuscular Hemoglobin 31.0 pg (27.0-31.2); Mean Corpuscular Volume 94.5 fl (81-99); Nucleated Red Blood Cells % 0 %; Platelet Count 271 K/mm3 (142-424); Red Blood Count 3.97 M/mm3 (4.20-5.40); Red Cell Distribution Width-SD 46.4 fL; White Blood Count 10.6 K/mm3 (4.8-10.8)
[2025-10-18 10:23] LABS: Chloride 108 mmol/L (98-107)
[2025-10-18 10:24] LABS: Potassium 4.0 mmoL/L (3.5-5.1); Sodium 139 mmol/L (136-145)
[2025-10-18 10:26] LABS: Blood Urea Nitrogen 17 mg/dl (7-17); Creatinine Clearance Estimated 56 mL/min (50-200); Creatinine,Serum 1.10 mg/dl (0.52-1.04); Estimated Glomerular Filt Rate 52 ml/min (>60); GFR (African American) 62 ML/MIN (>60)
[2025-10-18 10:27] LABS: Calcium 9.4 mg/dl (8.4-10.2); Glucose 121 mg/dl (74-100)
[2025-10-18 13:31] LABS: Anion Gap 11.0 mEq/L (5-15); Carbon Dioxide 24 mmol/L (22.0-30.0)
== END 2025-10-18 23:59 | disposition home or self-care (01) ==
LOC: PREOP 09:51
PROVIDERS: Visit Provider Anesthesiology
DX: Z01.812 Encounter for preprocedural laboratory examination (principal)
CPT/HCPCS: 80048; 85025